=== PATIENT | female | born 1935 ===

== ENCOUNTER 2017-02-15 11:22 | Inpatient (IN) | payer MEDICARE, MEDICAID ==
[2017-02-15 11:22] VITALS: BMI 32.9
--- NOTE | 2017-02-15 12:01 | C.PDOC ---
History Of Present Illness Patient BIBA for evaluation of SOB since yesterday. Patient has h/o COPD, anemia, HTN, DM, hypothyroidism, CHF. She was admitted recently (02/06) at [facility] for similar symptoms. Patient admits to nonproductive cough, but denies chest pain, fever, abdominal pain, palpitations, nausea/vomiting. As per EMS, Pox was in the 70s when they arrived, patient given solumedrol IV and neb treatments , POx improved to 80s. Time Seen by Provider: 02/15/17 11:24 Chief Complaint (Nursing): Shortness Of Breath History Per: Patient, EMS, Family (daughter ) Onset/Duration Of Symptoms: Days (yesterday) Current Symptoms Are (Timing): Still Present Current Respiratory Medications: See Home Med List Severity: Moderate Past Medical History Reviewed: Historical Data, Nursing Documentation, Vital Signs Vital Signs: Last Vital Signs Temp Pulse 71 02/15/17 14:21 Resp 20 02/15/17 13:49 BP 151/48 H 02/15/17 13:49 Pulse Ox 96 02/15/17 13:49 - Medical History PMH: Anemia, Diabetes, HTN, Hypothyroidism, Pneumonia - [facility] Procedures INTRODUCTION OF SERUM/TOX/VACCINE INTO MUSCLE, PERC APPROACH (05/27/15) Family History: States: No Known Family Hx - Social History Hx Tobacco Use: No Hx Alcohol Use: No Hx Substance Use: No - Immunization History Hx Tetanus Toxoid Vaccination: No Hx Influenza Vaccination: No Hx Pneumococcal Vaccination: No Review Of Systems Except As Marked, All Systems Reviewed And Found Negative. Constitutional: Negative for: Fever, Chills Cardiovascular: Negative for: Chest Pain, Palpitations Respiratory: Positive for: Cough, Shortness of Breath Gastrointestinal: Negative for: Nausea, Vomiting, Abdominal Pain, Diarrhea Skin: Negative for: Rash Physical Exam - Physical Exam Appears: Well, Non-toxic, In Acute Distress (in moderate respiratory distress) Skin: Warm, Dry Oral Mucosa: Moist Cardiovascular: Rhythm Regular (tachycardic ) Respiratory: Accessory Muscle Use (mild), No Rales, No Rhonchi, Wheezing ( diffuse expiratory wheezing B/L) Gastrointestinal/Abdominal: Normal Exam, Bowel Sounds, Soft, No Tenderness Extremity: Pedal Edema (+1 pitting edema B/L LEs) Pulses: Left Dorsalis Pedis: Normal, Right Dorsalis Pedis: Normal Neurological/Psych: Oriented x3 ED Course And Treatment - Laboratory Results Result Diagrams: 02/15/17 12:13 02/15/17 12:13 ECG: Interpreted By Me, Viewed By Me (NSR) ECG Rhythm: Sinus Rhythm (NSR 76 bpm, normal axis, no acute ST/T wave changes) ECG Interpretation: Normal O2 Sat by Pulse Oximetry: 92 (RA) Pulse Ox Interpretation: Abnormal - CT Scan/US CXR Other Rad Studies (CT/US): Read By Radiologist, Radiology Report Reviewed CT/US Interpretation: Accession No. : [id number]. Patient Name / ID : MANDO RESTREPO / [id number]. Exam Date : 02/15/2017 11:34:29 ( Approved ). Study Comment : Sex / Age : F / 81Y. Creator : Carleen Yan MD. Dictator : Carleen Yan MD. Cook Vacuum Kettle : Network Planner : Carleen Yan MD. Approver2 : Report Date : 02/15/2017 12:59:58. My Comment : . HISTORY: SOB. COMPARISON: Chest x-ray performed 05/25/15. TECHNIQUE: Chest, one view. FINDINGS: Examination limited by habitus and hypoinflation. LUNGS: Interstitial prominence may reflect infection or edema. Biapical pleural thickening. Bilateral lower lobe atelectasis/infiltrates and/or small pleural effusions. No definite pneumothorax. Please note that chest x-ray has limited sensitivity for the detection of pulmonary masses. CARDIOVASCULAR: Cardiomegaly. Dense atherosclerotic calcifications of the aortic knob. OSSEOUS STRUCTURES: Degenerative changes. Evidence of bilateral calcific tendinitis. VISUALIZED UPPER ABDOMEN: Unremarkable. OTHER FINDINGS: None. IMPRESSION: Interstitial prominence may reflect infection or edema. Biapical pleural thickening. Bilateral lower lobe atelectasis/infiltrates and/or small pleural effusions. Progress Note: Patient placed on Bipap emergently. Blood work, EKG, CXR ordered and reviewed. Neb treatments given. IV Lasix given for fluid overload/ CHF. Will hold off on tranfusion of PRBCs as that will likely worsen her CHF. - Physician Consult Information Physician Contacted: Reji Reyes Outcome Of Conversation: Discussed patient with hospitalist, agrees with admission for chf exacerbation, dyspnea, elevated BNP. Consults for patient's licensed retail supervisor (Dr. Hernandez) and glue jointer feeder (Dr. Day). Disposition - Disposition
[2017-02-15] MEDS ORDERED: Albuterol-Ipratrop 3 mg / 0.5 (3 ml) UD INH STA (12:05)
[2017-02-15 12:11] LABS: ABG ALLEN TEST PO; ARTERIAL BLOOD GAS MODE BiPAP; DRAW SITE RRA
[2017-02-15 12:18] LABS: BASO % 0.3 % (0.0-2.0); EOS % 0.1 % (0.0-4.0); HEMATOCRIT 23.8 % (34.0-47.0); LYMPH # 1.7 K/uL (1.0-4.3); LYMPH % 11.4 % (20.0-40.0); MEAN CORPUSCULAR HEMOGLOBIN 31.2 pg (27.0-31.0); MEAN CORPUSCULAR HGB CONC 32.8 g/dL (33.0-37.0); MEAN PLATELET VOLUME 9.4 fL (7.2-11.7); MONO # 2.1 K/uL (0.0-0.8); MONO % 13.7 % (0.0-10.0); NRBC % 0.1 % (0.0-2.0); WHITE BLOOD COUNT 15.1 K/uL (4.8-10.8)
[2017-02-15 12:27] LABS: CHLORIDE 99 mmol/L (98-107)
[2017-02-15 12:28] LABS: POTASSIUM 5.6 mmol/L (3.6-5.2); SODIUM 138 mmol/L (132-148)
[2017-02-15 12:30] LABS: ALB/GLOB RATIO 0.8 (1.0-2.1); ALKALINE PHOSPHATASE 49 U/L (38-126); AST/SGOT 15 U/L (14-36); BLOOD UREA NITROGEN 53 mg/dL (7-17); CARBON DIOXIDE 23 mmol/L (22-30); GFR AFRICAN-AMERICAN 31; TOTAL PROTEIN 9.1 g/dL (6.3-8.3)
[2017-02-15 12:31] LABS: ALT/SGPT 28 U/L (9-52); CALCIUM 8.6 mg/dl (8.6-10.4); GLUCOSE,RANDOM 184 mg/dL (65-105); INR 1.2
[2017-02-15 12:38] LABS: MEAN CELL VOLUME 95.2 fL (81.0-99.0)
--- NOTE | 2017-02-15 13:01 | RAD ---
HISTORY: SOB COMPARISON: Chest x-ray performed 05/25/15 TECHNIQUE: Chest, one view. FINDINGS: Examination limited by habitus and hypoinflation. LUNGS: Interstitial prominence may reflect infection or edema. Biapical pleural thickening. Bilateral lower lobe atelectasis/infiltrates and/or small pleural effusions. No definite pneumothorax. Please note that chest x-ray has limited sensitivity for the detection of pulmonary masses. CARDIOVASCULAR: Cardiomegaly. Dense atherosclerotic calcifications of the aortic knob. OSSEOUS STRUCTURES: Degenerative changes. Evidence of bilateral calcific tendinitis. VISUALIZED UPPER ABDOMEN: Unremarkable. OTHER FINDINGS: None. IMPRESSION: Interstitial prominence may reflect infection or edema. Biapical pleural thickening. Bilateral lower lobe atelectasis/infiltrates and/or small pleural effusions.
--- NOTE | 2017-02-15 15:59 | CP.PCM.HP ---
<Clay Hernandes - Last Filed: 02/15/17 17:34> History of Present Illness - History of Present Illness History of Present Illness: 81F PMHx anemia, CKD, DM, hypothyroidism, PAD and "minor heart attack" in 2016 presented with worsening SOB since yesterday. Daughter and grandchildren at bedside help providing history as pt currently on BIPAP. Pt was recently admitted to [facility] for similar complaints and was discharged a week ago. Pt admits to nonproductive cough at first and wheezing since yesterday as well. Denied fever, chills, chest pain, abdominal pain, n/v, palpitations, constipation, diarrhea. Pt also had workup done in the past year including unremarkable ECHO, EGD, FOBT and cath. Pt had kidney ultrasound done and had stone in one of the kidneys and atrophy in the other, per daughter. Pt also scheduled to have bone marrow biopsy tomorrow with her private heme/onc Dr. Avel Day. Pt also has been receiving weekly iron infusion therapy per daughter since 08/2016 after the "minor heart attack". Pt also scheduled to have sleep study with Dr. Hernandez next Monday. Pt had transfusion at [facility] recently for hgb of 7.3 as well. 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 Fuentes Clements Present on Admission - Present on Admission Any Indicators Present on Admission: No Review of Systems - Constitutional Constitutional: As Per HPI - EENT Eyes: absent: Blind Spots Ears: absent: Decreased Hearing Nose/Mouth/Throat: absent: Nasal Discharge - Cardiovascular Cardiovascular: Dyspnea, Leg Edema, Orthopnea. absent: Chest Pain - Respiratory Respiratory: Cough, Dyspnea, Wheezing - Gastrointestinal Gastrointestinal: absent: Abdominal Pain, Diarrhea, Nausea, Vomiting - Genitourinary Genitourinary: absent: Dysuria, Pyuria - Musculoskeletal Musculoskeletal: absent: Back Pain - Integumentary Integumentary: absent: Dry Skin - Neurological Neurological: absent: Syncope, Tingling Past Patient History - Infectious Disease Hx of Infectious Diseases: None - Tetanus Immunizations Tetanus Immunization: Unknown - Past Medical History & Family History Past Medical History?: Yes - Past Social History Smoking Status: Never Smoked - CARDIAC Hx Hypertension: Yes - PULMONARY Hx Pneumonia: Yes - ENDOCRINE/METABOLIC Hx Hypothyroidism: Yes - HEMATOLOGICAL/ONCOLOGICAL Hx Anemia: Yes - MUSCULOSKELETAL/RHEUMATOLOGICAL Hx Falls: No - PSYCHIATRIC Hx Substance Use: No - SURGICAL HISTORY Hx Surgeries: Yes Other/Comment: vascular stents - ANESTHESIA Hx Anesthesia: Yes Hx Anesthesia Reactions: No Meds Allergies/Adverse Reactions: Allergies Allergy/AdvReac Type Severity Reaction Status Date / Time No Known Allergies Allergy Verified 02/15/17 11:36 Physical Exam - Constitutional Appears: Non-toxic, No Acute Distress - Head Exam Head Exam: NORMAL INSPECTION, NORMOCEPHALIC - Eye Exam Eye Exam: Normal appearance Pupil Exam: NORMAL ACCOMODATION - ENT Exam ENT Exam: Mucous Membranes Moist - Respiratory Exam Respiratory Exam: Clear to Auscultation Bilateral, Rales (bilateral lower lungs) , NORMAL BREATHING PATTERN. absent: Rhonchi, Wheezes Additional comments: on BIPAP - Cardiovascular Exam Cardiovascular Exam: REGULAR RHYTHM, +S1, +S2, Systolic Murmur (right sternal border). absent: Gallop, JVD, Rubs - GI/Abdominal Exam GI & Abdominal Exam: Normal Bowel Sounds, Soft. absent: Tenderness - Extremities Exam Extremities exam: Positive for: pedal edema. Negative for: calf tenderness, tenderness - Neurological Exam Neurological exam: Alert, Oriented x3 - Psychiatric Exam Psychiatric exam: Normal Affect, Normal Mood - Skin Skin Exam: Dry, Intact Results - Vital Signs Recent Vital Signs: Last Vital Signs Temp Pulse 75 02/15/17 15:12 Resp 22 02/15/17 15:12 BP 154/53 H 02/15/17 15:12 Pulse Ox 96 02/15/17 15:12 - Labs Result Diagrams: 02/15/17 12:13 02/15/17 12:13 Labs: Laboratory Results - last 24 hr 02/15/17 02/15/17 02/15/17 11:43 12:07 12:13 WBC 15.1 H RBC 2.50 L Hgb 7.8 L Hct 23.8 L MCV 95.2 D MCH 31.2 H MCHC 32.8 L RDW 18.0 H Plt Count 88 L D MPV 9.4 Neut % (Auto) 74.5 Lymph % (Auto) 11.4 L [place] % (Auto) 13.7 H Eos % (Auto) 0.1 Baso % (Auto) 0.3 Neut # 11.3 H Lymph # 1.7 [place] # 2.1 H Eos # 0.0 Baso # 0.0 Differential Comment PT INR APTT Puncture Site Rra pCO2 42 pO2 90 HCO3 26.2 ABG pH 7.41 ABG Total CO2 27.9 ABG O2 Saturation 99.3 H ABG Base Excess 1.7 Brayan Test Po ABG Potassium 5.7 H A-a O2 Difference 285.0 Respiratory Index 3.2 Sodium 137.0 Chloride 108.0 H Glucose 213 H Lactate 0.7 Vent Mode Bipap FiO2 60.0 Inspiratory BiPAP 10 Expiratory BiPAP 5 Potassium Carbon Dioxide Anion Gap BUN Creatinine Est GFR ( Amer) Est GFR (Non-Af Amer) POC Glucose (mg/dL) 246 H Random Glucose Calcium Total Bilirubin AST ALT Alkaline Phosphatase Total Creatine Kinase CK-MB (Mass) Troponin I NT-Pro-B Natriuret Pep Total Protein Albumin Globulin Albumin/Globulin Ratio TSH 3rd Generation Arterial Blood Potassium 5.7 H Stool Occult Blood 02/15/17 02/15/17 02/15/17 12:13 12:13 14:17 WBC RBC Hgb Hct MCV MCH MCHC RDW Plt Count MPV Neut % (Auto) Lymph % (Auto) [place] % (Auto) Eos % (Auto) Baso % (Auto) Neut # Lymph # [place] # Eos # Baso # Differential Comment PT 14.1 H INR 1.2 APTT 32 Puncture Site pCO2 pO2 HCO3 ABG pH ABG Total CO2 ABG O2 Saturation ABG Base Excess Brayan Test ABG Potassium A-a O2 Difference Respiratory Index Sodium 138 Chloride 99 Glucose Lactate Vent Mode FiO2 Inspiratory BiPAP Expiratory BiPAP Potassium 5.6 H Carbon Dioxide 23 Anion Gap 22 H BUN 53 H Creatinine 1.9 H Est GFR ( Amer) 31 Est GFR (Non-Af Amer) 25 POC Glucose (mg/dL) Random Glucose 184 H Calcium 8.6 Total Bilirubin 1.0 AST 15 ALT 28 Alkaline Phosphatase 49 Total Creatine Kinase 23 L CK-MB (Mass) 0.53 Troponin I < 0.0120 NT-Pro-B Natriuret Pep 3500 H Total Protein 9.1 H Albumin 4.1 Globulin 5.0 H Albumin/Globulin Ratio 0.8 L TSH 3rd Generation 5.60 H Arterial Blood Potassium Stool Occult Blood Negative Assessment & Plan - Assessment and Plan (Free Text) Assessment: SOB Secondary to COPD vs CHF vs CKD vs anemia, recently admitted to [facility]. Initial pulse ox 70s, elevated to 96 after BIPAP. Duoneb and Lasix 40mg IV given in ED. EKG showed NSR @ 76 bpm without acute changes. CXR showed no PE but with bilateral infiltrates per report. WBC 15.[address] ABG WNL. Dr. Day and David consulted, help appreciated. Duoneb and BIPAP PRN. Lasix 40mg IV q12H. F/U blood culture. F/U troponins. F/U CXR and EKG AM. Pending records from [facility]. Request sent. Pt has hx of pulmonary nodule from CT 2016, will consider CT later if symptoms not resolving. Hyperkalemia 5.6 in ED. S/P Duoneb treatment and kayaxalate. No EKG changes. F/U CMP next AM. CKD Cr 1.9, baseline 1.8. Per pt daughter, pt has kidney stone and atrophy observed on ultrasound done at [facility]. F/U record from [facility]. Consider Nephrology consult. Anemia Likely secondary to chronic kidney disease. Ferritin 93 last year. Current FOBT negative, s/p unremarkable EGD a month ago per daughter. Pt sees private heme/onc Dr. Avel Day outpatient, scheduled for biopsy 02/16. Heme/onc Dr. Blake consulted, help appreciated. F/U reticulocyte, ferritin, TIBC, Vitamin B12 and folate. Thrombocytopenia Heme/onc Dr. Blake consulted, help appreciated. F/U HIV and hepatitis panel. DM RISS, accucheck. Continue home med Lantus 15U HS. Withhold oral meds. F/U A1c. Hypothyroidism TSH 5.6 Continue home med Synthroid 100mcg PO ACB. PAD Cardio Dr. Day consulted, help appreciated. Continue home med Pletal and Effient. Prophylactic measure Protonix, HepSQ. F/U venous doppler before SCD. <Reji Reyes - Last Filed: 02/16/17 07:35> Results - Vital Signs Recent Vital Signs: Last Vital Signs Temp 97.7 F 02/16/17 04:42 Pulse 84 02/16/17 05:08 Resp 20 02/16/17 04:42 BP 130/80 02/16/17 05:27 Pulse Ox 96 02/16/17 04:42 - Labs Result Diagrams: 02/15/17 12:13 02/15/17 12:13 Labs: Laboratory Results - last 24 hr 02/15/17 02/15/17 02/15/17 11:43 12:07 12:13 WBC 15.1 H RBC 2.50 L Hgb 7.8 L Hct 23.8 L MCV 95.2 D MCH 31.2 H MCHC 32.8 L RDW 18.0 H Plt Count 88 L D MPV 9.4 Neut % (Auto) 74.5 Lymph % (Auto) 11.4 L [place] % (Auto) 13.7 H Eos % (Auto) 0.1 Baso % (Auto) 0.3 Neut # 11.3 H Lymph # 1.7 [place] # 2.1 H Eos # 0.0 Baso # 0.0 Differential Comment Retic Count PT INR APTT Puncture Site Rra pCO2 42 pO2 90 HCO3 26.2 ABG pH 7.41 ABG Total CO2 27.9 ABG O2 Saturation 99.3 H ABG Base Excess 1.7 Brayan Test Po ABG Potassium 5.7 H A-a O2 Difference 285.0 Respiratory Index 3.2 Sodium 137.0 Chloride 108.0 H Glucose 213 H Lactate 0.7 Vent Mode Bipap FiO2 60.0 Inspiratory BiPAP 10 Expiratory BiPAP 5 Potassium Carbon Dioxide Anion Gap BUN Creatinine Est GFR ( Amer) Est GFR (Non-Af Amer) POC Glucose (mg/dL) 246 H Random Glucose Calcium Iron TIBC % Saturation Ferritin Total Bilirubin AST ALT Alkaline Phosphatase Total Creatine Kinase CK-MB (Mass) Troponin I NT-Pro-B Natriuret Pep Total Protein Albumin Globulin Albumin/Globulin Ratio Vitamin B12 Folate TSH 3rd Generation Arterial Blood Potassium 5.7 H Stool Occult Blood Hepatitis A IgM Ab Hep Bs Antigen Hep B Core IgM Ab Hepatitis C Antibody 02/15/17 02/15/17 02/15/17 12:13 12:13 14:17 WBC RBC Hgb Hct MCV MCH MCHC RDW Plt Count MPV Neut % (Auto) Lymph % (Auto) [place] % (Auto) Eos % (Auto) Baso % (Auto) Neut # Lymph # [place] # Eos # Baso # Differential Comment Retic Count PT 14.1 H INR 1.2 APTT 32 Puncture Site pCO2 pO2 HCO3 ABG pH ABG Total CO2 ABG O2 Saturation ABG Base Excess Brayan Test ABG Potassium A-a O2 Difference Respiratory Index Sodium 138 Chloride 99 Glucose Lactate Vent Mode FiO2 Inspiratory BiPAP Expiratory BiPAP Potassium 5.6 H Carbon Dioxide 23 Anion Gap 22 H BUN 53 H Creatinine 1.9 H Est GFR ( Amer) 31 Est GFR (Non-Af Amer) 25 POC Glucose (mg/dL) Random Glucose 184 H Calcium 8.6 Iron TIBC % Saturation Ferritin Total Bilirubin 1.0 AST 15 ALT 28 Alkaline Phosphatase 49 Total Creatine Kinase 23 L CK-MB (Mass) 0.53 Troponin I < 0.0120 NT-Pro-B Natriuret Pep 3500 H Total Protein 9.1 H Albumin 4.1 Globulin 5.0 H Albumin/Globulin Ratio 0.8 L Vitamin B12 Folate TSH 3rd Generation 5.60 H Arterial Blood Potassium Stool Occult Blood Negative Hepatitis A IgM Ab Hep Bs Antigen Hep B Core IgM Ab Hepatitis C Antibody 02/15/17 02/15/17 02/15/17 17:12 17:12 17:12 WBC RBC Hgb Hct MCV MCH MCHC RDW Plt Count MPV Neut % (Auto) Lymph % (Auto) [place] % (Auto) Eos % (Auto) Baso % (Auto) Neut # Lymph # [place] # Eos # Baso # Differential Comment Retic Count 4.6 H D PT INR APTT Puncture Site pCO2 pO2 HCO3 ABG pH ABG Total CO2 ABG O2 Saturation ABG Base Excess Brayan Test ABG Potassium A-a O2 Difference Respiratory Index Sodium Chloride Glucose Lactate Vent Mode FiO2 Inspiratory BiPAP Expiratory BiPAP Potassium Carbon Dioxide Anion Gap BUN Creatinine Est GFR ( Amer) Est GFR (Non-Af Amer) POC Glucose (mg/dL) Random Glucose Calcium Iron 52 TIBC 263 % Saturation 20 Ferritin 330.0 Total Bilirubin AST ALT Alkaline Phosphatase Total Creatine Kinase CK-MB (Mass) Troponin I NT-Pro-B Natriuret Pep Total Protein Albumin Globulin Albumin/Globulin Ratio Vitamin B12 705 Folate 9.9 TSH 3rd Generation Arterial Blood Potassium Stool Occult Blood Hepatitis A IgM Ab Hep Bs Antigen Hep B Core IgM Ab Hepatitis C Antibody 02/15/17 02/15/17 02/15/17 17:32 19:37 20:59 WBC RBC Hgb Hct MCV MCH MCHC RDW Plt Count MPV Neut % (Auto) Lymph % (Auto) [place] % (Auto) Eos % (Auto) Baso % (Auto) Neut # Lymph # [place] # Eos # Baso # Differential Comment Retic Count PT INR APTT Puncture Site pCO2 pO2 HCO3 ABG pH ABG Total CO2 ABG O2 Saturation ABG Base Excess Brayan Test ABG Potassium A-a O2 Difference Respiratory Index Sodium Chloride Glucose Lactate Vent Mode FiO2 Inspiratory BiPAP Expiratory BiPAP Potassium Carbon Dioxide Anion Gap BUN Creatinine Est GFR ( Amer) Est GFR (Non-Af Amer) POC Glucose (mg/dL) 289 H 393 H Random Glucose Calcium Iron TIBC % Saturation Ferritin Total Bilirubin AST ALT Alkaline Phosphatase Total Creatine Kinase CK-MB (Mass) Troponin I NT-Pro-B Natriuret Pep Total Protein Albumin Globulin Albumin/Globulin Ratio Vitamin B12 Folate TSH 3rd Generation Arterial Blood Potassium Stool Occult Blood Hepatitis A IgM Ab Reactive Hep Bs Antigen Negative Hep B Core IgM Ab Negative Hepatitis C Antibody Negative 02/16/17 02/16/17 02/16/17 00:31 01:57 06:21 WBC RBC Hgb Hct MCV MCH MCHC RDW Plt Count MPV Neut % (Auto) Lymph % (Auto) [place] % (Auto) Eos % (Auto) Baso % (Auto) Neut # Lymph # [place] # Eos # Baso # Differential Comment Retic Count PT INR APTT Puncture Site pCO2 pO2 HCO3 ABG pH ABG Total CO2 ABG O2 Saturation ABG Base Excess Brayan Test ABG Potassium A-a O2 Difference Respiratory Index Sodium Chloride Glucose Lactate Vent Mode FiO2 Inspiratory BiPAP Expiratory BiPAP Potassium Carbon Dioxide Anion Gap BUN Creatinine Est GFR ( Amer) Est GFR (Non-Af Amer) POC Glucose (mg/dL) 313 H 290 H Random Glucose Calcium Iron TIBC % Saturation Ferritin Total Bilirubin AST ALT Alkaline Phosphatase Total Creatine Kinase CK-MB (Mass) Troponin I < 0.0120 NT-Pro-B Natriuret Pep Total Protein Albumin Globulin Albumin/Globulin Ratio Vitamin B12 Folate TSH 3rd Generation Arterial Blood Potassium Stool Occult Blood Hepatitis A IgM Ab Hep Bs Antigen Hep B Core IgM Ab Hepatitis C Antibody Attending/Attestation - Attestation I have personally seen and examined this patient.: Yes I have fully participated in the care of the patient.: Yes I have reviewed all pertinent clinical information: Yes Notes (Text): Medical Attending: Patient was seen and examined by me. Agree with the above note by the durable medical equipment technician. Patient's family members were also present as bedside as well. Including her daughter, her granddaughter, as well as I believe may be a sister as well. The patient was recently at [facility], they explained for a very similar situation. I'm being told she had an extensive workup at [facility]. We' ll try to get some medical records from there I explained to him the patient as well as the family members that it appears that the patient has an exacerbation of CHF. When reviewing the chest x-ray she has bilateral having congestion. The patient did get some IV Lasix down in the emergency room, were to give her additional IV Lasix. [place] follow-up with him additional chest x-ray tomorrow in the morning to see if this helps any. When we saw the patient she was ready on 6T and was wearing a BiPAP however she reported that she is feeling much better since coming to the hospital she has been urinating a lot. Hopefully tomorrow we can get her off the BiPAP It should be noted on physical exam she does have some cardiac murmurs including areas over the pulmonic and the mitral areas that have what appeared to be a systolic murmur. Also of note she has a low hemoglobin of 7.8, according to the family members at [facility] she had to have a blood transfusion. Because of the elevated BNP, as well as the chest x-ray findings of heavy congestion we will defer from transfusing at this time and she does the next subsequent days. If the chest x-ray gets better and she's been diuresing we'll consider giving her blood transfusion. From what I understand she is supposed to have a bone marrow biopsy done outpatient. thank you Reji Reyes
[2017-02-15] MEDS ORDERED: Sod Polystyrene Sulf 15 gm/60 ml Susp PO ONE (17:26)
[2017-02-15 17:34] LABS: IRON 52 ug/dL (37-170)
[2017-02-15] MEDS ORDERED: Albuterol-Ipratrop 3 mg / 0.5 (3 ml) UD INH PRN (17:40)
[2017-02-15 18:41] LABS: FOLATE 9.9 ng/mL
--- NOTE | 2017-02-15 18:45 | CP.PCM.CON ---
History of Present Illness - History of Present Illness History of Present Illness: 81-year-old female past medical history of CHF, chronic hypoxemia on home oxygen , obstructive sleep apnea presents with complaining of progressively worsening dyspnea patient is found to have fluid overload Denied fever, chills, chest pain , abdominal pain, n/v, palpitations, constipation, diarrhea. Patient is currently on BiPAP and reports that her symptoms have improved. Review of Systems - Review of Systems All systems: reviewed and no additional remarkable complaints except (As mentioned in HPI) Past Patient History - Infectious Disease Hx of Infectious Diseases: None - Tetanus Immunizations Tetanus Immunization: Unknown - Past Medical History & Family History Past Medical History?: Yes - Past Social History Smoking Status: Never Smoked - CARDIAC Hx Hypertension: Yes - PULMONARY Hx Pneumonia: Yes - NEUROLOGICAL Hx Neurological Disorder: No - HEENT Hx HEENT Problems: Yes Hx Cataracts: Yes Other/Comment: corneal replacement both eyes - RENAL Hx Chronic Kidney Disease: Yes Hx Kidney Stones: Yes - ENDOCRINE/METABOLIC Hx Hypothyroidism: Yes - HEMATOLOGICAL/ONCOLOGICAL Hx Anemia: Yes - INTEGUMENTARY Hx Dermatological Problems: No - MUSCULOSKELETAL/RHEUMATOLOGICAL Hx Falls: No - GASTROINTESTINAL Hx Gastrointestinal Disorders: Yes Hx Constipation: Yes Hx Gastritis: Yes - GENITOURINARY/GYNECOLOGICAL Hx Genitourinary Disorders: No - PSYCHIATRIC Hx Substance Use: No - SURGICAL HISTORY Hx Surgeries: Yes Other/Comment: vascular stents - ANESTHESIA Hx Anesthesia: Yes Hx Anesthesia Reactions: No Meds Allergies/Adverse Reactions: Allergies Allergy/AdvReac Type Severity Reaction Status Date / Time No Known Allergies Allergy Verified 02/15/17 11:36 - Medications Medications: Current Medications Albuterol/Ipratropium (Duoneb 3 Mg/0.5 Mg (3 Ml) Ud) 3 ml INH RQ2 PRN PRN Reason: SOB Amlodipine Besylate (Norvasc) 10 mg PO DAILY [facility] Cilostazol (Pletal) 50 mg PO DAILY [facility] Enalapril Maleate (Vasotec) 20 mg PO DAILY [facility] Fenofibrate (Tricor) 48 mg PO DAILY [facility] Furosemide (Lasix) 40 mg IVP Q12H [facility] Heparin Sodium (Porcine) (Heparin) 5,000 units SC Q12 [facility] Home Med (Fosamax) 35 mg PO QWK [facility] Ceftriaxone Sodium 1 gm/ (Dextrose) 100 mls @ 50 mls/30 min IVPB Q24H [facility] Azithromycin 500 mg/ Sodium (Chloride) 250 mls @ 167 mls/hr IVPB Q24H [facility] Insulin Glargine (Lantus) 15 unit SC HS [facility] Insulin Human Regular (Novolin R) 0 unit SC ACHS [facility] PRN Reason: Protocol Levothyroxine Sodium (Synthroid) 100 mcg PO ACB [facility] Metoprolol Succinate (Toprol Xl) 25 mg PO DAILY [facility] Pantoprazole Sodium (Protonix Ec Tab) 40 mg PO DAILY [facility] Prasugrel (Effient) 10 mg PO DAILY [facility] Rosuvastatin Calcium (Crestor) 10 mg PO HS [facility] Physical Exam - Head Exam Head Exam: NORMAL INSPECTION - Eye Exam Eye Exam: Normal appearance - ENT Exam ENT Exam: Mucous Membranes Moist - Respiratory Exam Respiratory Exam: Rales, Rhonchi - Cardiovascular Exam Cardiovascular Exam: REGULAR RHYTHM, +S1, +S2 - GI/Abdominal Exam GI & Abdominal Exam: Normal Bowel Sounds, Soft - Extremities Exam Extremities exam: Positive for: pedal edema Results - Vital Signs Recent Vital Signs: Last Vital Signs Temp 98.1 F 02/15/17 16:20 Pulse 87 02/15/17 16:20 Resp 27 H 02/15/17 16:20 BP 163/70 H 02/15/17 16:20 Pulse Ox 95 02/15/17 16:20 - Labs Result Diagrams: 02/15/17 12:13 02/15/17 12:13 Labs: Laboratory Results - last 24 hr 02/15/17 02/15/17 02/15/17 11:43 12:07 12:13 WBC 15.1 H RBC 2.50 L Hgb 7.8 L Hct 23.8 L MCV 95.2 D MCH 31.2 H MCHC 32.8 L RDW 18.0 H Plt Count 88 L D MPV 9.4 Neut % (Auto) 74.5 Lymph % (Auto) 11.4 L Perkins % (Auto) 13.7 H Eos % (Auto) 0.1 Baso % (Auto) 0.3 Neut # 11.3 H Lymph # 1.7 Perkins # 2.1 H Eos # 0.0 Baso # 0.0 Differential Comment Retic Count PT INR APTT Puncture Site Rra pCO2 42 pO2 90 HCO3 26.2 ABG pH 7.41 ABG Total CO2 27.9 ABG O2 Saturation 99.3 H ABG Base Excess 1.7 Brayan Test Po ABG Potassium 5.7 H A-a O2 Difference 285.0 Respiratory Index 3.2 Sodium 137.0 Chloride 108.0 H Glucose 213 H Lactate 0.7 Vent Mode Bipap FiO2 60.0 Inspiratory BiPAP 10 Expiratory BiPAP 5 Potassium Carbon Dioxide Anion Gap BUN Creatinine Est GFR ( Amer) Est GFR (Non-Af Amer) POC Glucose (mg/dL) 246 H Random Glucose Calcium Iron TIBC % Saturation Ferritin Total Bilirubin AST ALT Alkaline Phosphatase Total Creatine Kinase CK-MB (Mass) Troponin I NT-Pro-B Natriuret Pep Total Protein Albumin Globulin Albumin/Globulin Ratio Vitamin B12 TSH 3rd Generation Arterial Blood Potassium 5.7 H Stool Occult Blood 02/15/17 02/15/17 02/15/17 12:13 12:13 14:17 WBC RBC Hgb Hct MCV MCH MCHC RDW Plt Count MPV Neut % (Auto) Lymph % (Auto) Perkins % (Auto) Eos % (Auto) Baso % (Auto) Neut # Lymph # Perkins # Eos # Baso # Differential Comment Retic Count PT 14.1 H INR 1.2 APTT 32 Puncture Site pCO2 pO2 HCO3 ABG pH ABG Total CO2 ABG O2 Saturation ABG Base Excess Brayan Test ABG Potassium A-a O2 Difference Respiratory Index Sodium 138 Chloride 99 Glucose Lactate Vent Mode FiO2 Inspiratory BiPAP Expiratory BiPAP Potassium 5.6 H Carbon Dioxide 23 Anion Gap 22 H BUN 53 H Creatinine 1.9 H Est GFR ( Amer) 31 Est GFR (Non-Af Amer) 25 POC Glucose (mg/dL) Random Glucose 184 H Calcium 8.6 Iron TIBC % Saturation Ferritin Total Bilirubin 1.0 AST 15 ALT 28 Alkaline Phosphatase 49 Total Creatine Kinase 23 L CK-MB (Mass) 0.53 Troponin I < 0.0120 NT-Pro-B Natriuret Pep 3500 H Total Protein 9.1 H Albumin 4.1 Globulin 5.0 H Albumin/Globulin Ratio 0.8 L Vitamin B12 TSH 3rd Generation 5.60 H Arterial Blood Potassium Stool Occult Blood Negative 02/15/17 02/15/17 02/15/17 17:12 17:12 17:12 WBC RBC Hgb Hct MCV MCH MCHC RDW Plt Count MPV Neut % (Auto) Lymph % (Auto) Perkins % (Auto) Eos % (Auto) Baso % (Auto) Neut # Lymph # Perkins # Eos # Baso # Differential Comment Retic Count 4.6 H D PT INR APTT Puncture Site pCO2 pO2 HCO3 ABG pH ABG Total CO2 ABG O2 Saturation ABG Base Excess Brayan Test ABG Potassium A-a O2 Difference Respiratory Index Sodium Chloride Glucose Lactate Vent Mode FiO2 Inspiratory BiPAP Expiratory BiPAP Potassium Carbon Dioxide Anion Gap BUN Creatinine Est GFR ( Amer) Est GFR (Non-Af Amer) POC Glucose (mg/dL) Random Glucose Calcium Iron 52 TIBC 263 % Saturation 20 Ferritin 330.0 Total Bilirubin AST ALT Alkaline Phosphatase Total Creatine Kinase CK-MB (Mass) Troponin I NT-Pro-B Natriuret Pep Total Protein Albumin Globulin Albumin/Globulin Ratio Vitamin B12 705 TSH 3rd Generation Arterial Blood Potassium Stool Occult Blood 02/15/17 17:32 WBC RBC Hgb Hct MCV MCH MCHC RDW Plt Count MPV Neut % (Auto) Lymph % (Auto) Perkins % (Auto) Eos % (Auto) Baso % (Auto) Neut # Lymph # Perkins # Eos # Baso # Differential Comment Retic Count PT INR APTT Puncture Site pCO2 pO2 HCO3 ABG pH ABG Total CO2 ABG O2 Saturation ABG Base Excess Brayan Test ABG Potassium A-a O2 Difference Respiratory Index Sodium Chloride Glucose Lactate Vent Mode FiO2 Inspiratory BiPAP Expiratory BiPAP Potassium Carbon Dioxide Anion Gap BUN Creatinine Est GFR ( Amer) Est GFR (Non-Af Amer) POC Glucose (mg/dL) 289 H Random Glucose Calcium Iron TIBC % Saturation Ferritin Total Bilirubin AST ALT Alkaline Phosphatase Total Creatine Kinase CK-MB (Mass) Troponin I NT-Pro-B Natriuret Pep Total Protein Albumin Globulin Albumin/Globulin Ratio Vitamin B12 TSH 3rd Generation Arterial Blood Potassium Stool Occult Blood Assessment & Plan - Assessment and Plan (Free Text) Assessment: Acute respiratory insufficiency CHF exacerbation Pulmonary hypertension ENRIQUE Continue BiPAP Lasix Monitor I's and O's Keep patient negative balance Bronchodilators DVT/GI prophylaxis Thank you for the consult will follow patient with you
[2017-02-15] MEDS: cefTRIAXone IV 1 gm in Dextros 1 GM in Dextrose 5% In Water 50 ML IVPB SCH (19:10)
[2017-02-15] MEDS: Azithromycin 500 MG in Sodium Chloride 0.9% 250 ML IVPB SCH (19:11)
[2017-02-15] MEDS: (Lantus) Insulin Glargine, Recombinant SC SCH (21:55)
[2017-02-15] MEDS: (Novolin R) Insulin Human Regular 100 units/ml vial SC SCH (21:57)
[2017-02-16] MEDS ORDERED: (Novolin R) Insulin Human Regular 100 units/ml vial SC ONE (02:26)
[2017-02-16] MEDS ORDERED: Levothyroxine 100 MCG TAB PO SCH (07:30)
[2017-02-16 07:38] LABS: BASO % 0.1 % (0.0-2.0); HEMATOCRIT 22.4 % (34.0-47.0); LYMPH % 7.7 % (20.0-40.0); MEAN CELL VOLUME 96.3 fL (81.0-99.0); MEAN CORPUSCULAR HEMOGLOBIN 31.7 pg (27.0-31.0); MEAN CORPUSCULAR HGB CONC 32.9 g/dL (33.0-37.0); MEAN PLATELET VOLUME 10.1 fL (7.2-11.7); MONO # 0.5 K/uL (0.0-0.8); MONO % 4.1 % (0.0-10.0); PLATELET COUNT 84 K/uL (130-400); RED CELL DISTRIBUTION WIDTH 17.8 % (11.5-14.5); WHITE BLOOD COUNT 13.2 K/uL (4.8-10.8)
--- NOTE | 2017-02-16 07:54 | CP.PCM.PN ---
<Arsh Hurley - Last Filed: 02/16/17 15:32> Subjective - Date & Time of Evaluation Date of Evaluation: 02/16/17 Time of Evaluation: 07:40 - Subjective Subjective: PGY1 Medicine Note for Dr. Reyes Patient seen and examined this morning at bedside. Patient is wearing her bi- pap mask, sitting upright in her bed. She states that she is doing much better today compared to yesterday. She states she slept well and her breathing feels much improved. Denies f/c, n/v/d, sob, cp, abdominal pain or headaches. Objective - Vital Signs/Intake and Output Vital Signs (last 24 hours): Temp Pulse Resp BP Pulse Ox 97.7 F 84 20 130/80 96 02/16/17 04:42 02/16/17 05:08 02/16/17 04:42 02/16/17 05:27 02/16/17 04:42 Intake and Output: 02/16/17 02/16/17 06:59 18:59 Intake Total 540 Output Total 800 Balance -260 - Medications Medications: Current Medications Albuterol/Ipratropium (Duoneb 3 Mg/0.5 Mg (3 Ml) Ud) 3 ml INH RQ2 PRN PRN Reason: SOB Amlodipine Besylate (Norvasc) 10 mg PO DAILY [facility] Cilostazol (Pletal) 50 mg PO DAILY [facility] Enalapril Maleate (Vasotec) 20 mg PO DAILY [facility] Fenofibrate (Tricor) 48 mg PO DAILY [facility] Furosemide (Lasix) 40 mg IVP Q12H [facility] Last Admin: 02/16/17 05:27 Dose: 40 mg Heparin Sodium (Porcine) (Heparin) 5,000 units SC Q12 [facility] Last Admin: 02/15/17 21:56 Dose: 5,000 units Home Med (Fosamax) 35 mg PO QWK [facility] Ceftriaxone Sodium 1 gm/ (Dextrose) 100 mls @ 50 mls/30 min IVPB Q24H [facility] Last Admin: 02/15/17 19:10 Dose: 50 mls/30 min Azithromycin 500 mg/ Sodium (Chloride) 250 mls @ 167 mls/hr IVPB Q24H [facility] Last Admin: 02/15/17 19:11 Dose: 167 mls/hr Insulin Glargine (Lantus) 15 unit SC HS [facility] Last Admin: 02/15/17 21:55 Dose: 15 units Insulin Human Regular (Novolin R) 0 unit SC ACHS [facility] PRN Reason: Protocol Last Admin: 02/15/17 21:57 Dose: 3 unit Levothyroxine Sodium (Synthroid) 100 mcg PO ACB [facility] Last Admin: 02/16/17 06:44 Dose: 100 mcg Metoprolol Succinate (Toprol Xl) 25 mg PO DAILY [facility] Pantoprazole Sodium (Protonix Ec Tab) 40 mg PO DAILY [facility] Prasugrel (Effient) 10 mg PO DAILY [facility] Rosuvastatin Calcium (Crestor) 10 mg PO HS [facility] Last Admin: 02/15/17 21:59 Dose: 10 mg - Labs Labs: 02/16/17 07:25 02/15/17 12:13 PT 14.1 SECONDS (9.7-12.2) H 02/15/17 12:13 INR 1.2 02/15/17 12:13 APTT 32 SECONDS (21-34) 02/15/17 12:13 Assessment and Plan - Assessment and Plan (Free Text) Plan: SOB Secondary to COPD vs CHF vs CKD vs anemia, recently admitted to [facility]. Initial pulse ox 70s, elevated to 96 after BIPAP. Duoneb and Lasix 40mg IV given in ED. EKG showed NSR @ 76 bpm without acute changes. CXR 02/15/17 - showed no PE but with bilateral infiltrates per report. WBC 13.[address] bands. ABG WNL. Dr. Day and David consulted, help appreciated. Duoneb and BIPAP PRN. Lasix 40mg IV q12H - decreased to 20mg IV Q12 due to worsening Creatinine F/U blood culture. troponins - negative x3 CXR (02/16/17) - Moderate to severe venous congestion with prominent confluent consolidative changes at both lung bases with a moderate left and small right pleural effusion. Cardiomegaly. Bilateral hilar prominence. Degenerative changes in the spine and shoulders. Calcification at the aortic knob. Aortic calcifications. EKG - no change Chest CT w/o (02/16/17) 1.) Vascular pattern suggests CHF as discussed above. However, the main pulmonary artery is also dilated to 3.6 cm, greater in caliber than the thoracic aorta and the right ventricle and atrium appears somewhat prominent compared to the left heart. Consider pulmonary arterial hypertension. Contrast dating this possibility is of normal apparent size to the inferior vena cava. Further clinical correlation is advised. 2.) Mild bilateral pleural effusions is are compression atelectasis at the bilateral lower lobes with underlying pneumonia not completely excluded. 3.) 3 mm right apical noncalcified nodule for which follow-up chest is advised in 12 months is imaged to demonstrate stability. Lung rads 2 Pending records from [facility]. Request sent. Pt has hx of pulmonary nodule from CT 2016, will consider CT later if symptoms not resolving. F/U repeat cxr in AM Continue bi-pap as needed. Hyperkalemia 5.6 in ED. S/P Duoneb treatment and kayaxalate. No EKG changes. F/U CMP next AM. CKD Cr 2.5 (yesterday 1.9), baseline 1.8. Per pt daughter, pt has kidney stone and atrophy observed on ultrasound done at [facility]. F/U record from [facility]. Consider Nephrology consult. Anemia Likely secondary to chronic kidney disease. Ferritin 93 last year. Current FOBT negative, s/p unremarkable EGD a month ago per daughter. Pt sees private heme/onc Dr. Avel Day outpatient, scheduled for biopsy 02/16. Heme/onc Dr. Blake consulted, help appreciated. reticulocyte 4.6 high Iron 52 TIBC 263 %sat 20 Ferritin 330 Vitamin B12 705 Folate 9.9 Thrombocytopenia Heme/onc Dr. Blake consulted, help appreciated. Hep A Ab postive Hep Bs antigen, core IgM Ab and Hep C Ab - negative F/U HIV DM RISS, accucheck. Continue home med Lantus 15 units HS. Withhold oral meds. A1c - 8.5 Hypothyroidism TSH 5.6 Continue home med Synthroid 100mcg PO ACB. PAD Cardio Dr. Day consulted, help appreciated. Continue home med Pletal and Effient. Prophylactic measure Protonix, HepSQ. venous doppler - normal, no abnormal findings. Case discussed with Dr. Amy Hurley PGY1 <Reji Reyes - Last Filed: 02/16/17 17:47> Objective - Vital Signs/Intake and Output Vital Signs (last 24 hours): Temp Pulse Resp BP Pulse Ox 98.4 F 85 20 164/80 H 98 02/16/17 15:30 02/16/17 15:30 02/16/17 15:30 02/16/17 15:30 02/16/17 15:30 Intake and Output: 02/16/17 02/16/17 06:59 18:59 Intake Total 540 Output Total 800 Balance -260 - Medications Medications: Current Medications Albuterol/Ipratropium (Duoneb 3 Mg/0.5 Mg (3 Ml) Ud) 3 ml INH RQ2 PRN PRN Reason: SOB Amlodipine Besylate (Norvasc) 10 mg PO DAILY [facility] Last Admin: 02/16/17 10:31 Dose: 10 mg Cilostazol (Pletal) 50 mg PO DAILY [facility] Last Admin: 02/16/17 10:31 Dose: 50 mg Emollient Ointment (Vaseline Oint) 5 gm TOP PRN PRN PRN Reason: Dry skin Enalapril Maleate (Vasotec) 20 mg PO DAILY [facility] Last Admin: 02/16/17 10:31 Dose: 20 mg Fenofibrate (Tricor) 48 mg PO DAILY [facility] Last Admin: 02/16/17 10:32 Dose: 48 mg Furosemide (Lasix) 20 mg IVP Q12 [facility] Last Admin: 02/16/17 10:47 Dose: 20 mg Heparin Sodium (Porcine) (Heparin) 5,000 units SC Q12 [facility] Last Admin: 02/16/17 10:40 Dose: 5,000 units Home Med (Fosamax) 35 mg PO QWK [facility] Ceftriaxone Sodium 1 gm/ (Dextrose) 100 mls @ 50 mls/30 min IVPB Q24H [facility] Last Admin: 02/15/17 19:10 Dose: 50 mls/30 min Azithromycin 500 mg/ Sodium (Chloride) 250 mls @ 167 mls/hr IVPB Q24H [facility] Last Admin: 02/15/17 19:11 Dose: 167 mls/hr Insulin Glargine (Lantus) 15 unit SC HS [facility] Last Admin: 02/15/17 21:55 Dose: 15 units Insulin Human Regular (Novolin R) 0 unit SC ACHS [facility] PRN Reason: Protocol Last Admin: 02/16/17 07:59 Dose: 4 unit Levothyroxine Sodium (Synthroid) 100 mcg PO ACB [facility] Last Admin: 02/16/17 06:44 Dose: 100 mcg Metoprolol Succinate (Toprol Xl) 25 mg PO DAILY [facility] Last Admin: 02/16/17 10:31 Dose: 25 mg Pantoprazole Sodium (Protonix Ec Tab) 40 mg PO DAILY [facility] Last Admin: 02/16/17 10:31 Dose: 40 mg Prasugrel (Effient) 10 mg PO DAILY [facility] Last Admin: 02/16/17 10:41 Dose: 10 mg Rosuvastatin Calcium (Crestor) 10 mg PO HS [facility] Last Admin: 02/15/17 21:59 Dose: 10 mg - Labs Labs: 02/16/17 07:25 02/16/17 07:25 PT 14.1 SECONDS (9.7-12.2) H 02/15/17 12:13 INR 1.2 02/15/17 12:13 APTT 32 SECONDS (21-34) 02/15/17 12:13 Attending/Attestation - Attestation I have personally seen and examined this patient.: Yes I have fully participated in the care of the patient.: Yes I have reviewed all pertinent clinical information, including history, physical exam and plan: Yes Notes (Text): Medical Attending: Patient was seen and examined by me. Agree with the above note by the resident The patient reported she was feeling somewhat better today however still requiring the Bipap. She was able to speak in full sentences as well. The patient had family member present at bedside again. The chest XRAY still has very impressive amounts of congestion, will check CT of the lung without contrast to assess for pleural effusion. Also we need to continue to follow the Hgb as she is anemic. Reji Reyes
[2017-02-16] MEDS: (Novolin R) Insulin Human Regular 100 units/ml vial SC SCH ×3 (07:59→23:09)
[2017-02-16 08:18] LABS: CHLORIDE 99 mmol/L (98-107); SODIUM 135 mmol/L (132-148)
[2017-02-16 08:19] LABS: POTASSIUM 5.1 mmol/L (3.6-5.2)
[2017-02-16 08:20] LABS: CHOLESTEROL 107 mg/dL (0-199)
[2017-02-16 08:21] LABS: ALB/GLOB RATIO 0.9 (1.0-2.1); ALKALINE PHOSPHATASE 47 U/L (38-126); AST/SGOT 15 U/L (14-36); BILIRUBIN,TOTAL 0.7 mg/dL (0.2-1.3); BLOOD UREA NITROGEN 66 mg/dL (7-17); CARBON DIOXIDE 22 mmol/L (22-30); GFR AFRICAN-AMERICAN 22; GLUCOSE,RANDOM 254 mg/dL (65-105); TOTAL PROTEIN 8.5 g/dL (6.3-8.3)
[2017-02-16 08:22] LABS: ALT/SGPT 21 U/L (9-52); CALCIUM 8.3 mg/dl (8.6-10.4)
[2017-02-16 09:24] LABS: NEUTROPHIL 87 % (50-75); TOTAL CELLS COUNTED 100
--- NOTE | 2017-02-16 09:40 | CP.PCM.CON ---
History of Present Illness - History of Present Illness History of Present Illness: Consult note for Dr. Blake Patient is an 81 year old female with past medical history of iron deficiency anemia, CKD, DM, hypothyroidism and PAD, who initially presented to the hospital with worsening shortness of breath. Patient is resting comfortably in bed with the BiPAP on. Patient's daughter, Bibiana, is at bedside and contributing to the patients history. Patient was recently hospitalized at [facility] [place] and found her hemoglobin was 7. She received two units of blood and her hemoglobin increased to approximately 8.3-8.7. Patient receives regular IV iron for her anemia. Patient's daughter reports that over approximately 20 days, the patients hemoglobin dropped from 10-11 to 7. The patient was schedule for a bone marrow biopsy today with her hem/onc doctor, Dr. Ernique. Currently, the patient has no complaints and reports her breathing is better with the BiPAP. She is feeling less fatigued. 12 point review of systems otherwise negative. PMHx: iron deficiency anemia, CKD, DM, hypothyroidism and PAD SurgHx: 3 stents in lower extremities (2 in right, 1 in left LE) in 2009 FamHx: "Mother had the same medical history as patient" SocHx: denies tobacco, alcohol and drug use; former employee at [employer]. Allergies: NKDA Medications: See EMR Review of Systems - Constitutional Constitutional: absent: Fever, Headache - EENT Ears: absent: Dizziness - Cardiovascular Cardiovascular: Dyspnea (On BiPAP, improving.). absent: Chest Pain - Respiratory Respiratory: Dyspnea (On BiPAP, improving.) - Gastrointestinal Gastrointestinal: absent: Abdominal Pain, Constipation, Diarrhea, Nausea, Vomiting - Neurological Neurological: absent: Dizziness, Headaches Past Patient History - Infectious Disease Hx of Infectious Diseases: None - Tetanus Immunizations Tetanus Immunization: Unknown - Past Medical History & Family History Past Medical History?: Yes - Past Social History Smoking Status: Never Smoked - CARDIAC Hx Hypertension: Yes - PULMONARY Hx Pneumonia: Yes - NEUROLOGICAL Hx Neurological Disorder: No - HEENT Hx HEENT Problems: Yes Hx Cataracts: Yes Other/Comment: corneal replacement both eyes - RENAL Hx Chronic Kidney Disease: Yes Hx Kidney Stones: Yes - ENDOCRINE/METABOLIC Hx Hypothyroidism: Yes - HEMATOLOGICAL/ONCOLOGICAL Hx Anemia: Yes - INTEGUMENTARY Hx Dermatological Problems: No - MUSCULOSKELETAL/RHEUMATOLOGICAL Hx Falls: No - GASTROINTESTINAL Hx Gastrointestinal Disorders: Yes Hx Constipation: Yes Hx Gastritis: Yes - GENITOURINARY/GYNECOLOGICAL Hx Genitourinary Disorders: No - PSYCHIATRIC Hx Substance Use: No - SURGICAL HISTORY Hx Surgeries: Yes Other/Comment: vascular stents - ANESTHESIA Hx Anesthesia: Yes Hx Anesthesia Reactions: No Meds Allergies/Adverse Reactions: Allergies Allergy/AdvReac Type Severity Reaction Status Date / Time No Known Allergies Allergy Verified 02/15/17 11:36 - Medications Medications: Current Medications Albuterol/Ipratropium (Duoneb 3 Mg/0.5 Mg (3 Ml) Ud) 3 ml INH RQ2 PRN PRN Reason: SOB Amlodipine Besylate (Norvasc) 10 mg PO DAILY [facility] Cilostazol (Pletal) 50 mg PO DAILY [facility] Enalapril Maleate (Vasotec) 20 mg PO DAILY [facility] Fenofibrate (Tricor) 48 mg PO DAILY [facility] Furosemide (Lasix) 40 mg IVP Q12H [facility] Last Admin: 02/16/17 05:27 Dose: 40 mg Heparin Sodium (Porcine) (Heparin) 5,000 units SC Q12 [facility] Last Admin: 02/15/17 21:56 Dose: 5,000 units Home Med (Fosamax) 35 mg PO QWK [facility] Ceftriaxone Sodium 1 gm/ (Dextrose) 100 mls @ 50 mls/30 min IVPB Q24H [facility] Last Admin: 02/15/17 19:10 Dose: 50 mls/30 min Azithromycin 500 mg/ Sodium (Chloride) 250 mls @ 167 mls/hr IVPB Q24H [facility] Last Admin: 02/15/17 19:11 Dose: 167 mls/hr Insulin Glargine (Lantus) 15 unit SC HS [facility] Last Admin: 02/15/17 21:55 Dose: 15 units Insulin Human Regular (Novolin R) 0 unit SC ACHS [facility] PRN Reason: Protocol Last Admin: 02/16/17 07:59 Dose: 4 unit Levothyroxine Sodium (Synthroid) 100 mcg PO ACB [facility] Last Admin: 02/16/17 06:44 Dose: 100 mcg Metoprolol Succinate (Toprol Xl) 25 mg PO DAILY [facility] Pantoprazole Sodium (Protonix Ec Tab) 40 mg PO DAILY [facility] Prasugrel (Effient) 10 mg PO DAILY [facility] Rosuvastatin Calcium (Crestor) 10 mg PO HS [facility] Last Admin: 02/15/17 21:59 Dose: 10 mg Physical Exam - Head Exam Head Exam: ATRAUMATIC, NORMAL INSPECTION - Eye Exam Eye Exam: EOMI, Normal appearance - ENT Exam ENT Exam: Mucous Membranes Dry - Respiratory Exam Respiratory Exam: Clear to Auscultation Bilateral. absent: Rhonchi, Wheezes, Respiratory Distress Additional comments: On BiPAP - Cardiovascular Exam Cardiovascular Exam: REGULAR RHYTHM, +S1, +S2 - GI/Abdominal Exam GI & Abdominal Exam: Normal Bowel Sounds, Soft. absent: Distended, Firm, Tenderness - Extremities Exam Extremities exam: Positive for: normal inspection. Negative for: pedal edema, tenderness - Neurological Exam Neurological exam: Alert, Oriented x3 - Psychiatric Exam Psychiatric exam: Normal Affect, Normal Mood - Skin Skin Exam: Dry, Intact, Normal Color, Warm Results - Vital Signs Recent Vital Signs: Last Vital Signs Temp 97.6 F 02/16/17 08:30 Pulse 81 02/16/17 08:30 Resp 18 02/16/17 08:30 BP 138/51 L 02/16/17 08:30 Pulse Ox 98 02/16/17 08:30 - Labs Result Diagrams: 02/16/17 07:25 02/16/17 07:25 Labs: Laboratory Results - last 24 hr 02/15/17 02/15/17 02/15/17 11:43 12:07 12:13 WBC 15.1 H RBC 2.50 L Hgb 7.8 L Hct 23.8 L MCV 95.2 D MCH 31.2 H MCHC 32.8 L RDW 18.0 H Plt Count 88 L D MPV 9.4 Neut % (Auto) 74.5 Lymph % (Auto) 11.4 L [place] % (Auto) 13.7 H Eos % (Auto) 0.1 Baso % (Auto) 0.3 Neut # 11.3 H Lymph # 1.7 [place] # 2.1 H Eos # 0.0 Baso # 0.0 Neutrophils % (Manual) Band Neutrophils % Lymphocytes % (Manual) Monocytes % (Manual) Differential Comment Platelet Estimate Hypochromasia (manual) Poikilocytosis (manual Basophilic Stippling Anisocytosis (manual) Retic Count PT INR APTT Puncture Site Rra pCO2 42 pO2 90 HCO3 26.2 ABG pH 7.41 ABG Total CO2 27.9 ABG O2 Saturation 99.3 H ABG Base Excess 1.7 Brayan Test Po ABG Potassium 5.7 H A-a O2 Difference 285.0 Respiratory Index 3.2 Sodium 137.0 Chloride 108.0 H Glucose 213 H Lactate 0.7 Vent Mode Bipap FiO2 60.0 Inspiratory BiPAP 10 Expiratory BiPAP 5 Potassium Carbon Dioxide Anion Gap BUN Creatinine Est GFR ( Amer) Est GFR (Non-Af Amer) POC Glucose (mg/dL) 246 H Random Glucose Hemoglobin A1c Calcium Iron TIBC % Saturation Ferritin Total Bilirubin AST ALT Alkaline Phosphatase Total Creatine Kinase CK-MB (Mass) Troponin I NT-Pro-B Natriuret Pep Total Protein Albumin Globulin Albumin/Globulin Ratio Triglycerides Cholesterol LDL Cholesterol Direct HDL Cholesterol Vitamin B12 Folate TSH 3rd Generation Arterial Blood Potassium 5.7 H Stool Occult Blood Hepatitis A IgM Ab Hep Bs Antigen Hep B Core IgM Ab Hepatitis C Antibody 02/15/17 02/15/17 02/15/17 12:13 12:13 14:17 WBC RBC Hgb Hct MCV MCH MCHC RDW Plt Count MPV Neut % (Auto) Lymph % (Auto) [place] % (Auto) Eos % (Auto) Baso % (Auto) Neut # Lymph # [place] # Eos # Baso # Neutrophils % (Manual) Band Neutrophils % Lymphocytes % (Manual) Monocytes % (Manual) Differential Comment Platelet Estimate Hypochromasia (manual) Poikilocytosis (manual Basophilic Stippling Anisocytosis (manual) Retic Count PT 14.1 H INR 1.2 APTT 32 Puncture Site pCO2 pO2 HCO3 ABG pH ABG Total CO2 ABG O2 Saturation ABG Base Excess Brayan Test ABG Potassium A-a O2 Difference Respiratory Index Sodium 138 Chloride 99 Glucose Lactate Vent Mode FiO2 Inspiratory BiPAP Expiratory BiPAP Potassium 5.6 H Carbon Dioxide 23 Anion Gap 22 H BUN 53 H Creatinine 1.9 H Est GFR ( Amer) 31 Est GFR (Non-Af Amer) 25 POC Glucose (mg/dL) Random Glucose 184 H Hemoglobin A1c Calcium 8.6 Iron TIBC % Saturation Ferritin Total Bilirubin 1.0 AST 15 ALT 28 Alkaline Phosphatase 49 Total Creatine Kinase 23 L CK-MB (Mass) 0.53 Troponin I < 0.0120 NT-Pro-B Natriuret Pep 3500 H Total Protein 9.1 H Albumin 4.1 Globulin 5.0 H Albumin/Globulin Ratio 0.8 L Triglycerides Cholesterol LDL Cholesterol Direct HDL Cholesterol Vitamin B12 Folate TSH 3rd Generation 5.60 H Arterial Blood Potassium Stool Occult Blood Negative Hepatitis A IgM Ab Hep Bs Antigen Hep B Core IgM Ab Hepatitis C Antibody 02/15/17 02/15/17 02/15/17 17:12 17:12 17:12 WBC RBC Hgb Hct MCV MCH MCHC RDW Plt Count MPV Neut % (Auto) Lymph % (Auto) [place] % (Auto) Eos % (Auto) Baso % (Auto) Neut # Lymph # [place] # Eos # Baso # Neutrophils % (Manual) Band Neutrophils % Lymphocytes % (Manual) Monocytes % (Manual) Differential Comment Platelet Estimate Hypochromasia (manual) Poikilocytosis (manual Basophilic Stippling Anisocytosis (manual) Retic Count 4.6 H D PT INR APTT Puncture Site pCO2 pO2 HCO3 ABG pH ABG Total CO2 ABG O2 Saturation ABG Base Excess Brayan Test ABG Potassium A-a O2 Difference Respiratory Index Sodium Chloride Glucose Lactate Vent Mode FiO2 Inspiratory BiPAP Expiratory BiPAP Potassium Carbon Dioxide Anion Gap BUN Creatinine Est GFR ( Amer) Est GFR (Non-Af Amer) POC Glucose (mg/dL) Random Glucose Hemoglobin A1c Calcium Iron 52 TIBC 263 % Saturation 20 Ferritin 330.0 Total Bilirubin AST ALT Alkaline Phosphatase Total Creatine Kinase CK-MB (Mass) Troponin I NT-Pro-B Natriuret Pep Total Protein Albumin Globulin Albumin/Globulin Ratio Triglycerides Cholesterol LDL Cholesterol Direct HDL Cholesterol Vitamin B12 705 Folate 9.9 TSH 3rd Generation Arterial Blood Potassium Stool Occult Blood Hepatitis A IgM Ab Hep Bs Antigen Hep B Core IgM Ab Hepatitis C Antibody 02/15/17 02/15/17 02/15/17 17:32 19:37 20:59 WBC RBC Hgb Hct MCV MCH MCHC RDW Plt Count MPV Neut % (Auto) Lymph % (Auto) [place] % (Auto) Eos % (Auto) Baso % (Auto) Neut # Lymph # [place] # Eos # Baso # Neutrophils % (Manual) Band Neutrophils % Lymphocytes % (Manual) Monocytes % (Manual) Differential Comment Platelet Estimate Hypochromasia (manual) Poikilocytosis (manual Basophilic Stippling Anisocytosis (manual) Retic Count PT INR APTT Puncture Site pCO2 pO2 HCO3 ABG pH ABG Total CO2 ABG O2 Saturation ABG Base Excess Brayan Test ABG Potassium A-a O2 Difference Respiratory Index Sodium Chloride Glucose Lactate Vent Mode FiO2 Inspiratory BiPAP Expiratory BiPAP Potassium Carbon Dioxide Anion Gap BUN Creatinine Est GFR ( Amer) Est GFR (Non-Af Amer) POC Glucose (mg/dL) 289 H 393 H Random Glucose Hemoglobin A1c Calcium Iron TIBC % Saturation Ferritin Total Bilirubin AST ALT Alkaline Phosphatase Total Creatine Kinase CK-MB (Mass) Troponin I NT-Pro-B Natriuret Pep Total Protein Albumin Globulin Albumin/Globulin Ratio Triglycerides Cholesterol LDL Cholesterol Direct HDL Cholesterol Vitamin B12 Folate TSH 3rd Generation Arterial Blood Potassium Stool Occult Blood Hepatitis A IgM Ab Reactive Hep Bs Antigen Negative Hep B Core IgM Ab Negative Hepatitis C Antibody Negative 02/16/17 02/16/17 02/16/17 00:31 01:57 06:21 WBC RBC Hgb Hct MCV MCH MCHC RDW Plt Count MPV Neut % (Auto) Lymph % (Auto) [place] % (Auto) Eos % (Auto) Baso % (Auto) Neut # Lymph # [place] # Eos # Baso # Neutrophils % (Manual) Band Neutrophils % Lymphocytes % (Manual) Monocytes % (Manual) Differential Comment Platelet Estimate Hypochromasia (manual) Poikilocytosis (manual Basophilic Stippling Anisocytosis (manual) Retic Count PT INR APTT Puncture Site pCO2 pO2 HCO3 ABG pH ABG Total CO2 ABG O2 Saturation ABG Base Excess Brayan Test ABG Potassium A-a O2 Difference Respiratory Index Sodium Chloride Glucose Lactate Vent Mode FiO2 Inspiratory BiPAP Expiratory BiPAP Potassium Carbon Dioxide Anion Gap BUN Creatinine Est GFR ( Amer) Est GFR (Non-Af Amer) POC Glucose (mg/dL) 313 H 290 H Random Glucose Hemoglobin A1c Calcium Iron TIBC % Saturation Ferritin Total Bilirubin AST ALT Alkaline Phosphatase Total Creatine Kinase CK-MB (Mass) Troponin I < 0.0120 NT-Pro-B Natriuret Pep Total Protein Albumin Globulin Albumin/Globulin Ratio Triglycerides Cholesterol LDL Cholesterol Direct HDL Cholesterol Vitamin B12 Folate TSH 3rd Generation Arterial Blood Potassium Stool Occult Blood Hepatitis A IgM Ab Hep Bs Antigen Hep B Core IgM Ab Hepatitis C Antibody 02/16/17 02/16/17 02/16/17 07:25 07:25 07:25 WBC 13.2 H RBC 2.33 L Hgb 7.4 L Hct 22.4 L MCV 96.3 MCH 31.7 H MCHC 32.9 L RDW 17.8 H Plt Count 84 L MPV 10.1 Neut % (Auto) 88.1 H Lymph % (Auto) 7.7 L [place] % (Auto) 4.1 Eos % (Auto) 0.0 Baso % (Auto) 0.1 Neut # 11.6 H Lymph # 1.0 [place] # 0.5 Eos # 0.0 Baso # 0.0 Neutrophils % (Manual) 87 H Band Neutrophils % 3 H Lymphocytes % (Manual) 7 L Monocytes % (Manual) 3 Differential Comment Platelet Estimate Decreased L Hypochromasia (manual) Slight Poikilocytosis (manual Slight Basophilic Stippling Slight Anisocytosis (manual) Slight Retic Count PT INR APTT Puncture Site pCO2 pO2 HCO3 ABG pH ABG Total CO2 ABG O2 Saturation ABG Base Excess Brayan Test ABG Potassium A-a O2 Difference Respiratory Index Sodium 135 Chloride 99 Glucose Lactate Vent Mode FiO2 Inspiratory BiPAP Expiratory BiPAP Potassium 5.1 Carbon Dioxide 22 Anion Gap 20 BUN 66 H Creatinine 2.5 H Est GFR ( Amer) 22 Est GFR (Non-Af Amer) 19 POC Glucose (mg/dL) Random Glucose 254 H Hemoglobin A1c 6.3 Calcium 8.3 L Iron TIBC % Saturation Ferritin Total Bilirubin 0.7 AST 15 ALT 21 Alkaline Phosphatase 47 Total Creatine Kinase CK-MB (Mass) Troponin I < 0.0120 NT-Pro-B Natriuret Pep Total Protein 8.5 H Albumin 4.0 Globulin 4.5 H Albumin/Globulin Ratio 0.9 L Triglycerides 79 Cholesterol 107 LDL Cholesterol Direct 35 HDL Cholesterol 32 Vitamin B12 Folate TSH 3rd Generation Arterial Blood Potassium Stool Occult Blood Hepatitis A IgM Ab Hep Bs Antigen Hep B Core IgM Ab Hepatitis C Antibody Assessment & Plan (1) Anemia Assessment and Plan: Likely secondary to chronic disease. Iron, folate, ferritin, vitamin B12- within normal limits; stool occult negative. Patient has elevated globulin gap, will follow up work up for monoclonal gammopathy/multiple myeloma. Follow up results. Ordered 1 unit PRBC today for hgb 7.4. Patient should follow up as outpatient with personal radiology transporter, Dr. Enrique , for bone marrow biopsy. Status: Acute (2) Thrombocytopenia Assessment and Plan: Patient to follow up outpatient with personal radiology transporter, Dr. Enrique for bone marrow biopsy. Hepatitis panel and HIV1/2- negative. Status: Acute
--- NOTE | 2017-02-16 10:26 | RAD ---
Chest x-ray two views History: Shortness of breath. Comparison: 02/15/2017 Findings: Moderate to severe venous congestion with prominent confluent consolidative changes at both lung bases with a moderate left and small right pleural effusion. Cardiomegaly. Bilateral hilar prominence. Degenerative changes in the spine and shoulders. Calcification at the aortic knob. Aortic calcifications. Impression: Moderate to severe venous congestion with prominent confluent consolidative changes at both lung bases with a moderate left and small right pleural effusion. Cardiomegaly. Bilateral hilar prominence. Degenerative changes in the spine and shoulders. Calcification at the aortic knob. Aortic calcifications.
[2017-02-16] MEDS: Metoprolol Succinate 25 mg XL Tab PO SCH (10:31)
[2017-02-16] MEDS: Cilostazol 50 mg Tab UD PO SCH (10:31)
[2017-02-16] MEDS: Pantoprazole 40 mg EC Tab PO SCH (10:31)
[2017-02-16] MEDS ORDERED: Petrolatum Oint Foilpak (5 gm) TOP PRN (10:34)
--- NOTE | 2017-02-16 12:16 | CARD ---
APPROVED REPORT EKG Measurement Heart [id number] [place] [id number] [id number] <Conclusion> Normal sinus rhythm Normal ECG
--- NOTE | 2017-02-16 12:31 | CT ---
PROCEDURE: CT Chest without contrast HISTORY: fluid overload, abnormal cxr COMPARISON: Chest CT without contrast 05/26/2015. TECHNIQUE: Contiguous axial images were obtained through the chest without intravenous contrast enhancement. Sagittal and coronal reconstructions were performed. Radiation dose (DLP): 654.13 mGy-cm. This CT exam was performed using one or more of the following dose reduction techniques: Automated exposure control, adjustment of the mA and/or kV according to patient size, and/or use of iterative reconstruction technique. FINDINGS: LUNGS: Ground-glass opacities increase in the bilateral upper and lower lobes as well as the right middle lobe. Interlobular septal thickening is relatively prominent at the upper lobes particularly the apices and pattern is likely a function of CHF. Bilateral lower lobe compressive atelectasis appreciate related to pleural effusions. Underlying infiltrate is not completely excluded. A 3 mm right apical pulmonary nodule is identified which may be different than the previous the demonstrate right apical nodule which may not be captured currently. MEDIASTINUM: Cardiomegaly is noted.The thoracic aorta is normal in caliber with the pulmonary artery appearing slightly larger than the thoracic aorta measuring 3.6 cm and pulmonary arterial hypertension is not excluded. Prominence of the right heart compartments may indicate right heart failure further. A vena cava is not significantly dilated however. Pulmonary veins in the bilateral hilar regions appear prominent when compared to paired airways and pattern favors CHF as discussed above. Prominent mitral annular calcifications are identified. Moderate coronary artery calcifications are also noted. PLEURA: No pericardial effusion. Mild bilateral pleural effusions are identified exerting compression atelectasis of the bilateral lower lobes. BONES: No fracture. No destructive lesion. UPPER ABDOMEN: Grossly unremarkable. OTHER FINDINGS: None. IMPRESSION: 1. Vascular pattern suggests CHF as discussed above. However, the main pulmonary artery is also dilated to 3.6 cm, greater in caliber than the thoracic aorta and the right ventricle and atrium appears somewhat prominent compared to the left heart. Consider pulmonary arterial hypertension. Contrast dating this possibility is of normal apparent size to the inferior vena cava. Further clinical correlation is advised. 2. Mild bilateral pleural effusions is are compression atelectasis at the bilateral lower lobes with underlying pneumonia not completely excluded. 3. 3 mm right apical noncalcified nodule for which follow-up chest is advised in 12 months is imaged to demonstrate stability. Lung rads 2.
--- NOTE | 2017-02-16 15:37 | CARD ---
APPROVED REPORT EKG Measurement Heart [id number] [place] 142P1 [id number] <Conclusion> Normal sinus rhythm Anterior infarct, age undetermined Abnormal ECG
[2017-02-16] MEDS: cefTRIAXone IV 1 gm in Dextros 1 GM in Dextrose 5% In Water 50 ML IVPB SCH (18:17)
--- NOTE | 2017-02-16 18:37 | CP.PCM.PN ---
Subjective - Date & Time of Evaluation Date of Evaluation: 02/16/17 Time of Evaluation: 18:37 - Subjective Subjective: Pt seen and examined No events overnight On and off BiPAP Objective - Vital Signs/Intake and Output Vital Signs (last 24 hours): Temp Pulse Resp BP Pulse Ox 98.4 F 85 20 164/80 H 98 02/16/17 15:30 02/16/17 15:30 02/16/17 15:30 02/16/17 15:30 02/16/17 15:30 Intake and Output: 02/16/17 02/16/17 06:59 18:59 Intake Total 540 Output Total 800 Balance -260 - Medications Medications: Current Medications Albuterol/Ipratropium (Duoneb 3 Mg/0.5 Mg (3 Ml) Ud) 3 ml INH RQ2 PRN PRN Reason: SOB Amlodipine Besylate (Norvasc) 10 mg PO DAILY [facility] Last Admin: 02/16/17 10:31 Dose: 10 mg Cilostazol (Pletal) 50 mg PO DAILY [facility] Last Admin: 02/16/17 10:31 Dose: 50 mg Emollient Ointment (Vaseline Oint) 5 gm TOP PRN PRN PRN Reason: Dry skin Enalapril Maleate (Vasotec) 20 mg PO DAILY [facility] Last Admin: 02/16/17 10:31 Dose: 20 mg Fenofibrate (Tricor) 48 mg PO DAILY [facility] Last Admin: 02/16/17 10:32 Dose: 48 mg Furosemide (Lasix) 20 mg IVP Q12 [facility] Last Admin: 02/16/17 10:47 Dose: 20 mg Heparin Sodium (Porcine) (Heparin) 5,000 units SC Q12 [facility] Last Admin: 02/16/17 10:40 Dose: 5,000 units Home Med (Fosamax) 35 mg PO QWK [facility] Ceftriaxone Sodium 1 gm/ (Dextrose) 100 mls @ 50 mls/30 min IVPB Q24H [facility] Last Admin: 02/16/17 18:17 Dose: 50 mls/30 min Azithromycin 500 mg/ Sodium (Chloride) 250 mls @ 167 mls/hr IVPB Q24H [facility] Last Admin: 02/15/17 19:11 Dose: 167 mls/hr Insulin Glargine (Lantus) 15 unit SC HS [facility] Last Admin: 02/15/17 21:55 Dose: 15 units Insulin Human Regular (Novolin R) 0 unit SC ACHS [facility] PRN Reason: Protocol Last Admin: 02/16/17 18:05 Dose: Not Given Levothyroxine Sodium (Synthroid) 100 mcg PO ACB [facility] Last Admin: 02/16/17 06:44 Dose: 100 mcg Metoprolol Succinate (Toprol Xl) 25 mg PO DAILY [facility] Last Admin: 02/16/17 10:31 Dose: 25 mg Pantoprazole Sodium (Protonix Ec Tab) 40 mg PO DAILY [facility] Last Admin: 02/16/17 10:31 Dose: 40 mg Prasugrel (Effient) 10 mg PO DAILY [facility] Last Admin: 02/16/17 10:41 Dose: 10 mg Rosuvastatin Calcium (Crestor) 10 mg PO HS [facility] Last Admin: 02/15/17 21:59 Dose: 10 mg - Labs Labs: 02/16/17 07:25 02/16/17 07:25 PT 14.1 SECONDS (9.7-12.2) H 02/15/17 12:13 INR 1.2 02/15/17 12:13 APTT 32 SECONDS (21-34) 02/15/17 12:13 - Head Exam Head Exam: NORMAL INSPECTION - Eye Exam Eye Exam: Normal appearance - ENT Exam ENT Exam: Mucous Membranes Moist - Respiratory Exam Respiratory Exam: Rales - Cardiovascular Exam Cardiovascular Exam: REGULAR RHYTHM, +S1, +S2 - GI/Abdominal Exam GI & Abdominal Exam: Soft, Normal Bowel Sounds - Extremities Exam Extremities Exam: Normal Inspection - Neurological Exam Neurological Exam: Alert, Awake - Psychiatric Exam Psychiatric exam: Normal Affect, Normal Mood Assessment and Plan - Assessment and Plan (Free Text) Assessment: Acute and Chronic respiratory insufficiency with hypoxemia CHF exacerbation Pulmonary hypertension ENRIQUE Continue BiPAP as needed Lasix Monitor I's and O's Bronchodilators Supportive care DVT/GI prophylaxis
[2017-02-16] MEDS: Azithromycin 500 MG in Sodium Chloride 0.9% 250 ML IVPB SCH (18:56)
[2017-02-16] MEDS: (Lantus) Insulin Glargine, Recombinant SC SCH (23:08)
[2017-02-17] MEDS: (Novolin R) Insulin Human Regular 100 units/ml vial SC SCH ×4 (07:57→22:16)
--- NOTE | 2017-02-17 08:17 | RAD ---
HISTORY: sob COMPARISON: Chest radiographs 02/16/2017. TECHNIQUE: Chest PA and lateral FINDINGS: LUNGS: Bilateral airspace disease persists at the bases and is increased at left perihilar region. PLEURA: Trace of pleural effusion is not excluded. There is no right pleural effusion or pneumothorax bilaterally. CARDIOVASCULAR: Pulmonary venous congestion persists though only [id number] at this time. OSSEOUS STRUCTURES: No significant abnormalities. VISUALIZED UPPER ABDOMEN: Normal. OTHER FINDINGS: None. IMPRESSION: Diminished pulmonary venous congestion with persistent air. Airspace disease identified in the bilateral bases as well as the left perihilar region where an increase is noted in the interval.
[2017-02-17] MEDS: Levothyroxine 100 MCG TAB PO SCH (08:39)
--- NOTE | 2017-02-17 09:02 | CP.PCM.PN ---
Subjective - Date & Time of Evaluation Date of Evaluation: 02/17/17 Time of Evaluation: 09:02 - Subjective Subjective: Progress note for Dr. Blake- PGY1 Patient was seen and examined at bedside in no acute distress. Patient did not have BiPAP on at the moment. She reports feeling better and has no complaints today. She states her breathing improves with the BiPAP. Patient denies chest pain, abdominal pain, leg pain, nausea, vomiting, and fevers. She reports having normal bowel movements and tolerating her diet. Objective - Vital Signs/Intake and Output Vital Signs (last 24 hours): Temp Pulse Resp BP Pulse Ox 97.6 F 74 20 129/68 98 02/17/17 08:22 02/17/17 08:22 02/17/17 08:22 02/17/17 08:22 02/17/17 08:22 Intake and Output: 02/17/17 02/17/17 06:59 18:59 Intake Total 425 Balance 425 - Medications Medications: Current Medications Albuterol/Ipratropium (Duoneb 3 Mg/0.5 Mg (3 Ml) Ud) 3 ml INH RQ2 PRN PRN Reason: SOB Amlodipine Besylate (Norvasc) 10 mg PO DAILY [facility] Last Admin: 02/16/17 10:31 Dose: 10 mg Cilostazol (Pletal) 50 mg PO DAILY [facility] Last Admin: 02/16/17 10:31 Dose: 50 mg Emollient Ointment (Vaseline Oint) 5 gm TOP PRN PRN PRN Reason: Dry skin Enalapril Maleate (Vasotec) 20 mg PO DAILY [facility] Last Admin: 02/16/17 10:31 Dose: 20 mg Fenofibrate (Tricor) 48 mg PO DAILY [facility] Last Admin: 02/16/17 10:32 Dose: 48 mg Furosemide (Lasix) 20 mg IVP Q12 [facility] Last Admin: 02/16/17 23:07 Dose: 20 mg Home Med (Fosamax) 35 mg PO QWK [facility] Ceftriaxone Sodium 1 gm/ (Dextrose) 100 mls @ 50 mls/30 min IVPB Q24H [facility] Last Admin: 02/16/17 18:17 Dose: 50 mls/30 min Azithromycin 500 mg/ Sodium (Chloride) 250 mls @ 167 mls/hr IVPB Q24H [facility] Last Admin: 02/16/17 18:56 Dose: 167 mls/hr Insulin Glargine (Lantus) 15 unit SC [facility] Last Admin: 02/16/17 23:08 Dose: 15 units Insulin Human Regular (Novolin R) [address] [facility] PRN Reason: Protocol Last Admin: 02/17/17 07:57 Dose: Not Given Levothyroxine Sodium (Synthroid) 100 mcg PO DAILY@0630 [facility] Last Admin: 02/17/17 08:39 Dose: 100 mcg Metoprolol Succinate (Toprol Xl) 25 mg PO DAILY [facility] Last Admin: 02/16/17 10:31 Dose: 25 mg Pantoprazole Sodium (Protonix Ec Tab) 40 mg PO DAILY [facility] Last Admin: 02/16/17 10:31 Dose: 40 mg Prasugrel (Effient) 10 mg PO DAILY [facility] Last Admin: 02/16/17 10:41 Dose: 10 mg Rosuvastatin Calcium (Crestor) 10 mg PO [facility] Last Admin: 02/16/17 23:09 Dose: 10 mg - Labs Labs: 02/16/17 07:25 02/16/17 07:25 PT 14.1 SECONDS (9.7-12.2) H 02/15/17 12:13 INR 1.2 02/15/17 12:13 APTT 32 SECONDS (21-34) 02/15/17 12:13 - Head Exam Head Exam: ATRAUMATIC, NORMAL INSPECTION - Eye Exam Eye Exam: EOMI - ENT Exam ENT Exam: Mucous Membranes Moist - Respiratory Exam Respiratory Exam: Rales. absent: Rhonchi, Wheezes Additional comments: On BiPAP - Cardiovascular Exam Cardiovascular Exam: +S1, +S2. absent: Bradycardia, Tachycardia - GI/Abdominal Exam GI & Abdominal Exam: Soft, Tenderness (LLQ), Normal Bowel Sounds - Neurological Exam Neurological Exam: Alert, Awake, Oriented x3 - Psychiatric Exam Psychiatric exam: Normal Affect, Normal Mood - Skin Skin Exam: Dry, Intact, Normal Color, Warm Assessment and Plan (1) Anemia Assessment & Plan: Likely secondary to chronic disease. Iron, folate, ferritin, vitamin B12- within normal limits; stool occult negative. Patient has elevated globulin gap, will follow up work up for monoclonal gammopathy/multiple myeloma. Patient should follow up as outpatient with personal ekg tech, Dr. Enrique , for bone marrow biopsy. Status: Acute (2) Thrombocytopenia Assessment & Plan: Patient to follow up outpatient with personal ekg tech, Dr. Enrique for bone marrow biopsy. Hepatitis panel and HIV1/2- negative. Status: Acute
[2017-02-17] MEDS: Metoprolol Succinate 25 mg XL Tab PO SCH (09:29)
[2017-02-17] MEDS: Pantoprazole 40 mg EC Tab PO SCH (09:29)
[2017-02-17] MEDS: Cilostazol 50 mg Tab UD PO SCH (09:29)
[2017-02-17 11:34] LABS: BASO % 0.1 % (0.0-2.0); HEMATOCRIT 25.1 % (34.0-47.0); LYMPH # 1.5 K/uL (1.0-4.3); LYMPH % 8.1 % (20.0-40.0); MEAN CELL VOLUME 94.9 fL (81.0-99.0); MEAN CORPUSCULAR HEMOGLOBIN 31.3 pg (27.0-31.0); MEAN PLATELET VOLUME 10.2 fL (7.2-11.7); MONO # 3.2 K/uL (0.0-0.8); MONO % 16.8 % (0.0-10.0); PLATELET COUNT 84 K/uL (130-400); RED CELL DISTRIBUTION WIDTH 17.9 % (11.5-14.5)
[2017-02-17 12:02] LABS: ALB/GLOB RATIO 0.9 (1.0-2.1); BILIRUBIN,TOTAL 0.6 mg/dL (0.2-1.3); PHOSPHOROUS 6.3 mg/dL (2.5-4.5); TOTAL PROTEIN 8.3 g/dL (6.3-8.3)
[2017-02-17 12:03] LABS: CALCIUM 8.6 mg/dl (8.6-10.4); MAGNESIUM 2.9 mg/dL (1.6-2.3)
[2017-02-17 12:10] LABS: NEUTROPHIL 71 % (50-75); TOTAL CELLS COUNTED 100
--- NOTE | 2017-02-17 13:00 | VASCLAB ---
PROCEDURE: Lower Extremity Venous Duplex Exam. HISTORY: Bilateral lower leg swelling PRIORS: None. TECHNIQUE: Bilateral common femoral, femoral, popliteal and posterior tibial, peroneal and great saphenous veins were evaluated. Flow was assessed with color Doppler, compressibility, assessment of phasic flow and augmentation response. Report prepared by Lamberto Arias, EVERARDO, RVT FINDINGS: RIGHT: 1. Common Femoral Vein: 1.1. Compressibility - Fully compressible: Thrombus - None : Flow - Phasic: Augmentation -Normal: Reflux - None. 2. Femoral Vein: 2.1. Compressibility - Fully compressible: Thrombus - None : Flow - Phasic: Augmentation -Normal: Reflux - None. 3. Popliteal Vein: 3.1. Compressibility - Fully compressible: Thrombus - None : Flow - Phasic: Augmentation -Normal: Reflux - None. 4. Posterior Tibial Vein: 4.1. Compressibility - Fully compressible: Thrombus - None: Flow - Phasic: Augmentation -Normal: Reflux - None. 5. Peroneal Vein: 5.1. Compressibility - Fully compressible: Thrombus - None: Flow - Phasic: Augmentation -Normal: Reflux - None. 6. Great Saphenous Vein: 6.1. Compressibility - Fully compressible: Thrombus - None: Flow - Phasic: Augmentation - Normal: Reflux - None. LEFT: 1. Common Femoral Vein: 1.1. Compressibility - Fully compressible: Thrombus - None: Flow - Phasic: Augmentation -Normal: Reflux - None. 2. Femoral Vein: 2.1. Compressibility - Fully compressible: Thrombus - None: Flow - Phasic: Augmentation -Normal: Reflux - None. 3. Popliteal Vein: 3.1. Compressibility - Fully compressible: Thrombus - None : Flow - Phasic: Augmentation -Normal: Reflux - None. 4. Posterior Tibial Vein: 4.1. Compressibility - Fully compressible: Thrombus - None: Flow - Phasic: Augmentation -Normal: Reflux - None. 5. Peroneal Vein: 5.1. Compressibility - Fully compressible: Thrombus - None: Flow - Phasic: Augmentation -Normal: Reflux - None. 6. Great Saphenous Vein: 6.1. Compressibility - Fully compressible: Thrombus - None: Flow - Phasic: Augmentation - Normal: Reflux - None. OTHER FINDINGS: Right: None significant. Left: None significant. IMPRESSION: Right: No evidence of deep or superficial vein thrombosis of the right lower extremity. Normal valve function noted of the right side. Left: No evidence of deep or superficial vein thrombosis of the left lower extremity. Normal valve function noted of the left side.
--- NOTE | 2017-02-17 14:11 | CP.PCM.PN ---
<BrianTanya - Last Filed: 02/17/17 14:07> Subjective - Date & Time of Evaluation Date of Evaluation: 02/17/17 Time of Evaluation: 09:00 - Subjective Subjective: Medicine Note for Dr. Reyes Patient was seen and examined at bedside. Patient is wearing her bi-pap mask, sitting upright in her bed. She states that she is doing much better today compared to yesterday. She states she slept well and her breathing feels much improved. Denies f/c, n/v/d, sob, cp, abdominal pain or headaches. Objective - Vital Signs/Intake and Output Vital Signs (last 24 hours): Temp Pulse Resp BP Pulse Ox 97.6 F 82 20 129/62 98 02/17/17 08:22 02/17/17 13:34 02/17/17 08:22 02/17/17 09:49 02/17/17 08:22 Intake and Output: 02/17/17 02/17/17 06:59 18:59 Intake Total 425 Balance 425 - Medications Medications: Current Medications Albuterol/Ipratropium (Duoneb 3 Mg/0.5 Mg (3 Ml) Ud) 3 ml INH RQ2 PRN PRN Reason: SOB Amlodipine Besylate (Norvasc) 10 mg PO DAILY [facility] Last Admin: 02/17/17 09:30 Dose: 10 mg Cilostazol (Pletal) 50 mg PO DAILY [facility] Last Admin: 02/17/17 09:29 Dose: 50 mg Emollient Ointment (Vaseline Oint) 5 gm TOP PRN PRN PRN Reason: Dry skin Enalapril Maleate (Vasotec) 20 mg PO DAILY [facility] Last Admin: 02/17/17 09:49 Dose: 20 mg Fenofibrate (Tricor) 48 mg PO DAILY [facility] Last Admin: 02/17/17 09:29 Dose: 48 mg Furosemide (Lasix) 20 mg IVP Q12 [facility] Last Admin: 02/17/17 09:32 Dose: 20 mg Home Med (Fosamax) 35 mg PO QWK [facility] Ceftriaxone Sodium 1 gm/ (Dextrose) 100 mls @ 50 mls/30 min IVPB Q24H [facility] Last Admin: 02/16/17 18:17 Dose: 50 mls/30 min Azithromycin 500 mg/ Sodium (Chloride) 250 mls @ 167 mls/hr IVPB Q24H [facility] Last Admin: 02/16/17 18:56 Dose: 167 mls/hr Insulin Glargine (Lantus) 15 unit SC [facility] Last Admin: 02/16/17 23:08 Dose: 15 units Insulin Human Regular (Novolin R) 0 unit SC [facility] PRN Reason: Protocol Last Admin: 02/17/17 12:47 Dose: 3 unit Levothyroxine Sodium (Synthroid) 100 mcg PO DAILY@0630 [facility] Last Admin: 02/17/17 08:39 Dose: 100 mcg Metoprolol Succinate (Toprol Xl) 25 mg PO DAILY [facility] Last Admin: 02/17/17 09:29 Dose: 25 mg Pantoprazole Sodium (Protonix Ec Tab) 40 mg PO DAILY [facility] Last Admin: 02/17/17 09:29 Dose: 40 mg Prasugrel (Effient) 10 mg PO DAILY [facility] Last Admin: 02/17/17 11:01 Dose: 10 mg Rosuvastatin Calcium (Crestor) 10 mg PO [facility] Last Admin: 02/16/17 23:09 Dose: 10 mg - Labs Labs: 02/17/17 11:29 02/17/17 11:29 PT 14.1 SECONDS (9.7-12.2) H 02/15/17 12:13 INR 1.2 02/15/17 12:13 APTT 32 SECONDS (21-34) 02/15/17 12:13 - Constitutional Appears: No Acute Distress - Head Exam Head Exam: NORMAL INSPECTION, NORMOCEPHALIC - Eye Exam Eye Exam: EOMI, Normal appearance, PERRL Pupil Exam: NORMAL ACCOMODATION - ENT Exam ENT Exam: Mucous Membranes Moist - Respiratory Exam Respiratory Exam: Clear to Ausculation Bilateral, NORMAL BREATHING PATTERN. absent: Decreased Breath Sounds, Rhonchi, Wheezes - Cardiovascular Exam Cardiovascular Exam: REGULAR RHYTHM, RRR, +S1, +S2 - GI/Abdominal Exam GI & Abdominal Exam: Soft, Normal Bowel Sounds. absent: Distended, Tenderness - Extremities Exam Extremities Exam: Normal Inspection. absent: Pedal Edema, Tenderness - Neurological Exam Neurological Exam: Alert, Awake, Oriented x3 - Psychiatric Exam Psychiatric exam: Normal Affect, Normal Mood - Skin Skin Exam: Dry, Intact, Normal Color, Warm Assessment and Plan - Assessment and Plan (Free Text) Plan: SOB Secondary to COPD vs CHF vs CKD vs anemia, [place] [facility] Initial pulse ox 70s, elevated to 96 after BIPAP. Duoneb and Lasix 40mg IV given in ED. EKG showed NSR @ 76 bpm without acute changes. CXR 02/15/17 - showed no PE but with bilateral infiltrates per report. WBC 13.[address] bands. ABG WNL. Dr. Day and David consulted, help appreciated. Duoneb and BIPAP PRN. Lasix 40mg IV q12H - decreased to 20mg IV Q12 due to worsening Creatinine troponins - negative x3 CXR (02/16/17) - Moderate to severe venous congestion with prominent confluent consolidative changes at both lung bases with a moderate left and small right pleural effusion. Cardiomegaly. Bilateral hilar prominence. Degenerative changes in the spine and shoulders. Calcification at the aortic knob. Aortic calcifications. EKG - no change Chest CT w/o (02/16/17): Vascular pattern suggests CHF as discussed above. However, the main pulmonary artery is also dilated to 3.6 cm, greater in caliber than the thoracic aorta and the right ventricle and atrium appears somewhat prominent compared to the left heart. Consider pulmonary arterial hypertension. Contrast dating this possibility is of normal apparent size to the inferior vena cava. Further clinical correlation is advised. Mild bilateral pleural effusions is are compression atelectasis at the bilateral lower lobes with underlying pneumonia not completely excluded. 3 mm right apical noncalcified nodule for which follow-up chest is advised in 12 months is imaged to demonstrate stability. Lung rads 2 Pt has hx of pulmonary nodule from CT 2016, will consider CT later if symptoms not resolving. Continue bi-pap as needed P[place] [facility] Request sent - files retrieved; ECHO : normal EF with diastolic dysfunction type 2, . Cardiac Cath 09/15/2016: Mid LAD 90% stenosis , KAREL placed. Prox CX, mid subsection 50% stenosis, LVEF 40%. CKD Creatine today 3.2, baseline 1.8. Per pt daughter, pt has kidney stone and atrophy observed on ultrasound done [place] [facility] nonobstructing 9mm stone right kidney Nephrology consult - Dr. Langston - help appreciated Continued on lasix 20mg IVP daily Anemia Likely secondary to chronic kidney disease. Ferritin 93 last year. Current FOBT negative, s/p unremarkable EGD a month ago per daughter. Pt sees private heme/onc Dr. Avel Day outpatient, scheduled for biopsy 02/16. Heme/onc Dr. Blake consulted, help appreciated. reticulocyte 4.6 high Iron 52 TIBC 263 %sat 20 Ferritin 330 Vitamin B12 705 Folate 9.9 Thrombocytopenia Heme/onc Dr. Blake consulted, help appreciated. Hep A Ab postive Hep Bs antigen, core IgM Ab and Hep C Ab - negative DM RISS, accucheck. Continue home med Lantus 15 units HS. Withhold oral meds. A1c - 8.5 Hypothyroidism TSH 5.6 Continue home med Synthroid 100mcg PO ACB PAD Cardio Dr. Day consulted, help appreciated. Continue home med Pletal and Effient. Prophylactic measure Protonix, HepSQ. venous doppler - normal, no abnormal findings. DW Dr. Reyes, Brian NUNN, PGY-1 <Reji Reyes - Last Filed: 02/17/17 15:49> Objective - Vital Signs/Intake and Output Vital Signs (last 24 hours): Temp Pulse Resp BP Pulse Ox 97.6 F 82 20 129/62 98 02/17/17 08:22 02/17/17 13:34 02/17/17 08:22 02/17/17 09:49 02/17/17 08:22 Intake and Output: 02/17/17 02/17/17 06:59 18:59 Intake Total 425 Balance 425 - Medications Medications: Current Medications Albuterol/Ipratropium (Duoneb 3 Mg/0.5 Mg (3 Ml) Ud) 3 ml INH RQ2 PRN PRN Reason: SOB Amlodipine Besylate (Norvasc) 10 mg PO DAILY [facility] Last Admin: 02/17/17 09:30 Dose: 10 mg Cilostazol (Pletal) 50 mg PO DAILY [facility] Last Admin: 02/17/17 09:29 Dose: 50 mg Emollient Ointment (Vaseline Oint) 5 gm TOP PRN PRN PRN Reason: Dry skin Epoetin Brandon (Procrit) 10,000 unit SC MWF [facility] Fenofibrate (Tricor) 48 mg PO DAILY [facility] Last Admin: 02/17/17 09:29 Dose: 48 mg Ferric Sodium Gluconate Complex (Ferrlecit) 125 mg IVPB DAILY [facility] Stop: 02/21/17 15:31 Furosemide (Lasix) 20 mg IVP DAILY [facility] Home Med (Fosamax) 35 mg PO QWK [facility] Ceftriaxone Sodium 1 gm/ (Dextrose) 100 mls @ 50 mls/30 min IVPB Q24H [facility] Last Admin: 02/16/17 18:17 Dose: 50 mls/30 min Azithromycin 500 mg/ Sodium (Chloride) 250 mls @ 167 mls/hr IVPB Q24H [facility] Last Admin: 02/16/17 18:56 Dose: 167 mls/hr Insulin Glargine (Lantus) 15 unit SC [facility] Last Admin: 02/16/17 23:08 Dose: 15 units Insulin Human Regular (Novolin R) 0 unit SC [facility] PRN Reason: Protocol Last Admin: 02/17/17 12:47 Dose: 3 unit Levothyroxine Sodium (Synthroid) 100 mcg PO DAILY@0630 [facility] Last Admin: 02/17/17 08:39 Dose: 100 mcg Metoprolol Succinate (Toprol Xl) 25 mg PO DAILY [facility] Last Admin: 02/17/17 09:29 Dose: 25 mg Pantoprazole Sodium (Protonix Ec Tab) 40 mg PO DAILY [facility] Last Admin: 02/17/17 09:29 Dose: 40 mg Prasugrel (Effient) 10 mg PO DAILY [facility] Last Admin: 02/17/17 11:01 Dose: 10 mg Rosuvastatin Calcium (Crestor) 10 mg PO [facility] Last Admin: 02/16/17 23:09 Dose: 10 mg - Labs Labs: 02/17/17 11:29 02/17/17 11:29 PT 14.1 SECONDS (9.7-12.2) H 02/15/17 12:13 INR 1.2 02/15/17 12:13 APTT 32 SECONDS (21-34) 02/15/17 12:13 Attending/Attestation - Attestation I have personally seen and examined this patient.: Yes I have fully participated in the care of the patient.: Yes I have reviewed all pertinent clinical information, including history, physical exam and plan: Yes Notes (Text): Medical Attending: Patient was seen and examined by me. Agree with the above note by the resident The patient was with family member at bedside. The patient reported no chest pain, no shortness of breath at rest. The patient walked around with assistance, however I did not see this myself The patient had files retrieved [place] [facility] was normal EF with diastolic dysfunction type 2 She had a cardiac cath 09/15/2016: Mid LAD 90% stenosis, KAREL placed. Prox CX, mid subsection 50% stenosis, LVEF 40%. The creatine has increased to 3.2 - from previous records her creatine has been around 2.5 for some time now. Will continue to follow, asking for nephrology consult thank you Reji Reyes
--- NOTE | 2017-02-17 15:18 | CP.PCM.CON ---
History of Present Illness - History of Present Illness History of Present Illness: 81F PMHx anemia, CKD, DM, hypothyroidism, PAD and "minor heart attack" in 2016 presented with worsening SOB since yesterday. Daughter and grandchildren at bedside help providing history as pt currently on BIPAP. Pt was [place] [facility] [place] complaints and was discharged a week ago. Pt admits to nonproductive cough at first and wheezing since yesterday as well. Denied fever, chills, chest pain, abdominal pain, n/v, palpitations, constipation, diarrhea. Pt also had workup done in the past year including unremarkable ECHO, EGD, FOBT and cath. Pt had kidney ultrasound done and had stone in one of the kidneys and atrophy in the other, per daughter. Pt also scheduled to have bone marrow biopsy tomorrow with her private heme/onc Dr. Avel Day. Pt also has been receiving weekly iron infusion therapy per daughter since 08/2016 after the "minor heart attack". Pt also scheduled to have sleep study with Dr. Hernandez next Monday. Pt had transfusion at [facility] recently for hgb of 7.3 as well. 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 Allergies: NKDA Consulted due to progressive LUCRECIA during hospital stay Review of Systems - Constitutional Constitutional: Fatigue, Weakness - EENT Eyes: Blurred Vision, Change in Vision Ears: absent: As Per HPI, Decreased Hearing, Ear Discharge, Ear Pain, Tinnitus, Abnormal Hearing, Disequilibrium, Dizziness, Other - Cardiovascular Cardiovascular: Dyspnea on Exertion, Leg Edema - Respiratory Respiratory: Cough, Dyspnea on Exertion - Gastrointestinal Gastrointestinal: Early Satiety, Nausea - Genitourinary Genitourinary: Difficulty Urinating - Musculoskeletal Musculoskeletal: Muscle Cramps, Muscle Weakness - Integumentary Integumentary: absent: As Per HPI, Acne, Alopecia, Bleeding Lesions, Change in Hair, Change in Nails, Change in Pigmentation, Changing Lesions, Dry Skin, Erythema, Furuncle, Hirsutism, Lesions, New Lesions, Non-Healing Lesions, Photosensitivity, Pruritus, Rash, Skin Pain, Skin Ulcer, Sores, Striae, Swelling , Unusual Bruising, Wounds, Jaundice, Other - Neurological Neurological: Weakness Past Patient History - Infectious Disease Hx of Infectious Diseases: None - Tetanus Immunizations Tetanus Immunization: Unknown - Past Medical History & Family History Past Medical History?: Yes Past Family History: Reviewed and not pertinent - Past Social History Smoking Status: Never Smoked Chewing Tobacco Use: No Cigar Use: No Alcohol: None Drugs: Denies - CARDIAC Hx Congestive Heart Failure: Yes Hx Hypertension: Yes - PULMONARY Hx Chronic Obstructive Pulmonary Disease (COPD): Yes - NEUROLOGICAL Hx Neurological Disorder: No - HEENT Hx HEENT Problems: Yes Hx Cataracts: Yes Other/Comment: corneal replacement both eyes - RENAL Hx Chronic Kidney Disease: Yes Hx Kidney Stones: Yes - ENDOCRINE/METABOLIC Hx Diabetes Mellitus Type 2: Yes Hx Hypothyroidism: Yes - HEMATOLOGICAL/ONCOLOGICAL Hx Anemia: Yes - INTEGUMENTARY Hx Dermatological Problems: No - MUSCULOSKELETAL/RHEUMATOLOGICAL Hx Falls: No - GASTROINTESTINAL Hx Gastrointestinal Disorders: Yes Hx Constipation: Yes Hx Gastritis: Yes - GENITOURINARY/GYNECOLOGICAL Hx Genitourinary Disorders: No - PSYCHIATRIC Hx Substance Use: No - SURGICAL HISTORY Hx Surgeries: Yes Other/Comment: vascular stents - ANESTHESIA Hx Anesthesia: Yes Hx Anesthesia Reactions: No Meds Allergies/Adverse Reactions: Allergies Allergy/AdvReac Type Severity Reaction Status Date / Time No Known Allergies Allergy Verified 02/15/17 11:36 - Medications Medications: Current Medications Albuterol/Ipratropium (Duoneb 3 Mg/0.5 Mg (3 Ml) Ud) 3 ml INH RQ2 PRN PRN Reason: SOB Amlodipine Besylate (Norvasc) 10 mg PO DAILY [facility] Last Admin: 02/17/17 09:30 Dose: 10 mg Cilostazol (Pletal) 50 mg PO DAILY [facility] Last Admin: 02/17/17 09:29 Dose: 50 mg Emollient Ointment (Vaseline Oint) 5 gm TOP PRN PRN PRN Reason: Dry skin Enalapril Maleate (Vasotec) 20 mg PO DAILY [facility] Last Admin: 02/17/17 09:49 Dose: 20 mg Fenofibrate (Tricor) 48 mg PO DAILY [facility] Last Admin: 02/17/17 09:29 Dose: 48 mg Furosemide (Lasix) 20 mg IVP DAILY [facility] Home Med (Fosamax) 35 mg PO QWK [facility] Ceftriaxone Sodium 1 gm/ (Dextrose) 100 mls @ 50 mls/30 min IVPB Q24H [facility] Last Admin: 02/16/17 18:17 Dose: 50 mls/30 min Azithromycin 500 mg/ Sodium (Chloride) 250 mls @ 167 mls/hr IVPB Q24H [facility] Last Admin: 02/16/17 18:56 Dose: 167 mls/hr Insulin Glargine (Lantus) 15 unit SC [facility] Last Admin: 02/16/17 23:08 Dose: 15 units Insulin Human Regular (Novolin R) 0 unit SC [facility] PRN Reason: Protocol Last Admin: 02/17/17 12:47 Dose: 3 unit Levothyroxine Sodium (Synthroid) 100 mcg PO DAILY@0630 [facility] Last Admin: 02/17/17 08:39 Dose: 100 mcg Metoprolol Succinate (Toprol Xl) 25 mg PO DAILY [facility] Last Admin: 02/17/17 09:29 Dose: 25 mg Pantoprazole Sodium (Protonix Ec Tab) 40 mg PO DAILY [facility] Last Admin: 02/17/17 09:29 Dose: 40 mg Prasugrel (Effient) 10 mg PO DAILY [facility] Last Admin: 02/17/17 11:01 Dose: 10 mg Rosuvastatin Calcium (Crestor) 10 mg PO [facility] Last Admin: 02/16/17 23:09 Dose: 10 mg Physical Exam - Constitutional Appears: Non-toxic, Chronically Ill - Head Exam Head Exam: ATRAUMATIC, NORMAL INSPECTION - Eye Exam Eye Exam: EOMI, PERRL - Neck Exam Neck exam: Positive for: Normal Inspection. Negative for: Tenderness - Respiratory Exam Respiratory Exam: Rales, Wheezes - GI/Abdominal Exam GI & Abdominal Exam: Soft. absent: Tenderness - Extremities Exam Extremities exam: Positive for: normal inspection, tenderness - Skin Skin Exam: Dry, Warm Results - Vital Signs Recent Vital Signs: Last Vital Signs Temp 97.6 F 02/17/17 08:22 Pulse 82 02/17/17 13:34 Resp 20 02/17/17 08:22 BP 129/62 02/17/17 09:49 Pulse Ox 98 02/17/17 08:22 - Labs Result Diagrams: 02/17/17 11:29 02/17/17 11:29 Labs: Laboratory Results - last 24 hr 02/16/17 02/16/17 02/16/17 13:15 17:16 21:45 WBC RBC Hgb Hct MCV MCH MCHC RDW Plt Count MPV Neut % (Auto) Lymph % (Auto) [place] % (Auto) Eos % (Auto) Baso % (Auto) Neut # Lymph # [place] # Eos # Baso # Neutrophils % (Manual) Lymphocytes % (Manual) Monocytes % (Manual) Platelet Estimate Anisocytosis (manual) Sodium Potassium Chloride Carbon Dioxide Anion Gap BUN Creatinine Est GFR ( Amer) Est GFR (Non-Af Amer) POC Glucose (mg/dL) 97 274 H Random Glucose Calcium Phosphorus Magnesium Total Bilirubin AST ALT Alkaline Phosphatase Total Protein Albumin Globulin Albumin/Globulin Ratio Blood Type A POSITIVE Antibody Screen Positive Antibody Identification Anti P1 Elution Negative BRYAN, Poly Interpret Positive H 02/17/17 02/17/17 02/17/17 06:23 11:29 11:29 WBC 19.0 H RBC 2.65 L Hgb 8.3 L Hct 25.1 L MCV 94.9 MCH 31.3 H MCHC 33.0 RDW 17.9 H Plt Count 84 L MPV 10.2 Neut % (Auto) 75.0 Lymph % (Auto) 8.1 L [place] % (Auto) 16.8 H Eos % (Auto) 0.0 Baso % (Auto) 0.1 Neut # 14.3 H Lymph # 1.5 [place] # 3.2 H Eos # 0.0 Baso # 0.0 Neutrophils % (Manual) 71 Lymphocytes % (Manual) 12 L Monocytes % (Manual) 17 H Platelet Estimate Decreased L Anisocytosis (manual) Slight Sodium 133 Potassium 5.0 Chloride 97 L Carbon Dioxide 22 Anion Gap 20 BUN 86 H Creatinine 3.2 H Est GFR ( Amer) 17 Est GFR (Non-Af Amer) 14 POC Glucose (mg/dL) 104 Random Glucose 164 H Calcium 8.6 Phosphorus 6.3 H Magnesium 2.9 H Total Bilirubin 0.6 AST 23 ALT 26 Alkaline Phosphatase 41 Total Protein 8.3 Albumin 3.9 Globulin 4.4 H Albumin/Globulin Ratio 0.9 L Blood Type Antibody Screen Antibody Identification Elution BRYAN, Poly Interpret 02/17/17 11:34 WBC RBC Hgb Hct MCV MCH MCHC RDW Plt Count MPV Neut % (Auto) Lymph % (Auto) [place] % (Auto) Eos % (Auto) Baso % (Auto) Neut # Lymph # [place] # Eos # Baso # Neutrophils % (Manual) Lymphocytes % (Manual) Monocytes % (Manual) Platelet Estimate Anisocytosis (manual) Sodium Potassium Chloride Carbon Dioxide Anion Gap BUN Creatinine Est GFR ( Amer) Est GFR (Non-Af Amer) POC Glucose (mg/dL) 213 H Random Glucose Calcium Phosphorus Magnesium Total Bilirubin AST ALT Alkaline Phosphatase Total Protein Albumin Globulin Albumin/Globulin Ratio Blood Type Antibody Screen Antibody Identification Elution BRYAN, Poly Interpret Assessment & Plan (1) CHF (congestive heart failure) Status: Acute (2) Type 2 diabetes mellitus with diabetic nephropathy Status: Acute (3) HTN (hypertension) Status: Acute (4) Chronic anemia Status: Acute (5) LUCRECIA (acute kidney injury) Status: Acute (6) Chronic kidney disease, stage IV (severe) Status: Acute - Assessment and Plan (Free Text) Plan: PRASANNA I and IV lasix possible contributing to LUCRECIA Would recheck renal US Check serial chemistries Check proteinuria Stop PRASANNA I Lower lasix dose Avoid nephrotoxics
[2017-02-17] MEDS: Ferric Sodium Gluconat Complex 62.5 mg/5 ml Vial IVPB SCH (18:12)
[2017-02-17] MEDS: cefTRIAXone IV 1 gm in Dextros 1 GM in Dextrose 5% In Water 50 ML IVPB SCH (19:39)
[2017-02-17] MEDS: Azithromycin 500 MG in Sodium Chloride 0.9% 250 ML IVPB SCH (19:40)
[2017-02-17 20:31] LABS: RBC URINE 1 /hpf (0-3); URINE BILIRUBIN NEGATIVE (NEGATIVE); URINE BLOOD NEGATIVE (NEGATIVE); URINE COLOR Yellow (YELLOW); URINE GLUCOSE (UA) NORMAL (Normal); URINE HYALINE CAST 0-2 /lpf (0-2); URINE KETONE NEGATIVE (NEGATIVE); URINE LEUKOCYTE ESTERASE TRACE Leu/uL (Negative); URINE PROTEIN NEGATIVE (NEGATIVE); URINE UROBILINOGEN NORMAL mg/dL (0.2-1.0); WBC URINE 10 /hpf (0-5)
--- NOTE | 2017-02-17 20:39 | CP.PCM.PN ---
Subjective - Date & Time of Evaluation Date of Evaluation: 02/17/17 Time of Evaluation: 20:39 Objective - Vital Signs/Intake and Output Vital Signs (last 24 hours): Temp Pulse Resp BP Pulse Ox 97.9 F 76 20 116/54 L 100 02/17/17 16:47 02/17/17 16:47 02/17/17 16:47 02/17/17 16:47 02/17/17 16:47 - Medications Medications: Current Medications Albuterol/Ipratropium (Duoneb 3 Mg/0.5 Mg (3 Ml) Ud) 3 ml INH RQ2 PRN PRN Reason: SOB Amlodipine Besylate (Norvasc) 10 mg PO DAILY [facility] Last Admin: 02/17/17 09:30 Dose: 10 mg Cilostazol (Pletal) 50 mg PO DAILY [facility] Last Admin: 02/17/17 09:29 Dose: 50 mg Emollient Ointment (Vaseline Oint) 5 gm TOP PRN PRN PRN Reason: Dry skin Epoetin Brandon (Procrit) 10,000 unit SC [facility] Fenofibrate (Tricor) 48 mg PO DAILY [facility] Last Admin: 02/17/17 09:29 Dose: 48 mg Ferric Sodium Gluconate Complex (Ferrlecit) 125 mg IVPB DAILY [facility] Stop: 02/21/17 15:31 Last Admin: 02/17/17 18:12 Dose: 125 mg Furosemide (Lasix) 20 mg IVP DAILY [facility] Home Med (Fosamax) 35 mg PO QWK [facility] Ceftriaxone Sodium 1 gm/ (Dextrose) 100 mls @ 50 mls/30 min IVPB Q24H [facility] Last Admin: 02/17/17 19:39 Dose: 50 mls/30 min Azithromycin 500 mg/ Sodium (Chloride) 250 mls @ 167 mls/hr IVPB Q24H [facility] Last Admin: 02/17/17 19:40 Dose: 167 mls/hr Insulin Glargine (Lantus) 15 unit SC HS [facility] Last Admin: 02/16/17 23:08 Dose: 15 units Insulin Human Regular (Novolin R) 0 unit SC ACHS [facility] PRN Reason: Protocol Last Admin: 02/17/17 18:12 Dose: 3 unit Levothyroxine Sodium (Synthroid) 100 mcg PO DAILY@0630 [facility] Last Admin: 02/17/17 08:39 Dose: 100 mcg Metoprolol Succinate (Toprol Xl) 25 mg PO DAILY [facility] Last Admin: 02/17/17 09:29 Dose: 25 mg Pantoprazole Sodium (Protonix Ec Tab) 40 mg PO DAILY [facility] Last Admin: 02/17/17 09:29 Dose: 40 mg Prasugrel (Effient) 10 mg PO DAILY [facility] Last Admin: 02/17/17 11:01 Dose: 10 mg Rosuvastatin Calcium (Crestor) 10 mg PO [facility] Last Admin: 02/16/17 23:09 Dose: 10 mg - Labs Labs: 02/17/17 11:29 02/17/17 11:29 PT 14.1 SECONDS (9.7-12.2) H 02/15/17 12:13 INR 1.2 02/15/17 12:13 APTT 32 SECONDS (21-34) 02/15/17 12:13
[2017-02-17] MEDS: (Lantus) Insulin Glargine, Recombinant SC SCH (22:15)
[2017-02-18] MEDS: Levothyroxine 100 MCG TAB PO SCH (05:57)
[2017-02-18 07:34] LABS: BASO % 0.1 % (0.0-2.0); EOS % 0.1 % (0.0-4.0); HEMATOCRIT 23.4 % (34.0-47.0); LYMPH # 2.8 K/uL (1.0-4.3); LYMPH % 15.8 % (20.0-40.0); MEAN CELL VOLUME 95.5 fL (81.0-99.0); MEAN CORPUSCULAR HEMOGLOBIN 31.7 pg (27.0-31.0); MEAN CORPUSCULAR HGB CONC 33.2 g/dL (33.0-37.0); MEAN PLATELET VOLUME 10.2 fL (7.2-11.7); MONO # 4.4 K/uL (0.0-0.8); MONO % 24.7 % (0.0-10.0); PLATELET COUNT 75 K/uL (130-400); RED CELL DISTRIBUTION WIDTH 17.9 % (11.5-14.5); WHITE BLOOD COUNT 17.8 K/uL (4.8-10.8)
[2017-02-18 07:58] LABS: POTASSIUM 4.8 mmol/L (3.6-5.2)
[2017-02-18 08:00] LABS: ALB/GLOB RATIO 0.9 (1.0-2.1); BILIRUBIN,TOTAL 0.6 mg/dL (0.2-1.3); PHOSPHOROUS 6.2 mg/dL (2.5-4.5); TOTAL PROTEIN 7.7 g/dL (6.3-8.3)
[2017-02-18 08:01] LABS: CALCIUM 8.4 mg/dl (8.6-10.4); MAGNESIUM 2.9 mg/dL (1.6-2.3)
[2017-02-18] MEDS: (Novolin R) Insulin Human Regular 100 units/ml vial SC SCH ×4 (08:08→22:09)
--- NOTE | 2017-02-18 09:07 | CP.PCM.PN ---
Subjective - Date & Time of Evaluation Date of Evaluation: 02/18/17 Time of Evaluation: 09:05 - Subjective Subjective: Pt seen and examined No events overnight Objective - Vital Signs/Intake and Output Vital Signs (last 24 hours): Temp Pulse Resp BP Pulse Ox 98 F 70 20 113/50 L 96 02/18/17 04:10 02/18/17 05:26 02/18/17 04:10 02/18/17 04:10 02/18/17 04:10 Intake and Output: 02/18/17 02/18/17 06:59 18:59 Intake Total 838 Balance 838 - Medications Medications: Current Medications Albuterol/Ipratropium (Duoneb 3 Mg/0.5 Mg (3 Ml) Ud) 3 ml INH RQ2 PRN PRN Reason: SOB Amlodipine Besylate (Norvasc) 10 mg PO DAILY [facility] Last Admin: 02/17/17 09:30 Dose: 10 mg Cilostazol (Pletal) 50 mg PO DAILY [facility] Last Admin: 02/17/17 09:29 Dose: 50 mg Emollient Ointment (Vaseline Oint) 5 gm TOP PRN PRN PRN Reason: Dry skin Epoetin Brandon (Procrit) 10,000 unit SC MWF [facility] Fenofibrate (Tricor) 48 mg PO DAILY [facility] Last Admin: 02/17/17 09:29 Dose: 48 mg Ferric Sodium Gluconate Complex (Ferrlecit) 125 mg IVPB DAILY [facility] Stop: 02/21/17 15:31 Last Admin: 02/17/17 18:12 Dose: 125 mg Furosemide (Lasix) 20 mg IVP DAILY [facility] Home Med (Fosamax) 35 mg PO QWK [facility] Ceftriaxone Sodium 1 gm/ (Dextrose) 100 mls @ 50 mls/30 min IVPB Q24H [facility] Last Admin: 02/17/17 19:39 Dose: 50 mls/30 min Azithromycin 500 mg/ Sodium (Chloride) 250 mls @ 167 mls/hr IVPB Q24H [facility] Last Admin: 02/17/17 19:40 Dose: 167 mls/hr Insulin Glargine (Lantus) 15 unit SC HS [facility] Last Admin: 02/17/17 22:15 Dose: 15 units Insulin Human Regular (Novolin R) 0 unit SC ACHS [facility] PRN Reason: Protocol Last Admin: 02/18/17 08:08 Dose: Not Given Levothyroxine Sodium (Synthroid) 100 mcg PO DAILY@0630 [facility] Last Admin: 02/18/17 05:57 Dose: 100 mcg Metoprolol Succinate (Toprol Xl) 25 mg PO DAILY [facility] Last Admin: 02/17/17 09:29 Dose: 25 mg Pantoprazole Sodium (Protonix Ec Tab) 40 mg PO DAILY [facility] Last Admin: 02/17/17 09:29 Dose: 40 mg Prasugrel (Effient) 10 mg PO DAILY [facility] Last Admin: 02/17/17 11:01 Dose: 10 mg Rosuvastatin Calcium (Crestor) 10 mg PO HS [facility] Last Admin: 02/17/17 22:15 Dose: 10 mg - Labs Labs: 02/18/17 07:20 02/18/17 07:20 PT 14.1 SECONDS (9.7-12.2) H 02/15/17 12:13 INR 1.2 02/15/17 12:13 APTT 32 SECONDS (21-34) 02/15/17 12:13 - Head Exam Head Exam: NORMAL INSPECTION - Eye Exam Eye Exam: Normal appearance - ENT Exam ENT Exam: Mucous Membranes Moist - Respiratory Exam Respiratory Exam: Clear to Ausculation Bilateral - Cardiovascular Exam Cardiovascular Exam: REGULAR RHYTHM, +S1, +S2 - GI/Abdominal Exam GI & Abdominal Exam: Soft, Normal Bowel Sounds - Extremities Exam Extremities Exam: Normal Inspection Assessment and Plan - Assessment and Plan (Free Text) Assessment: Acute and Chronic respiratory insufficiency with hypoxemia LUCRECIA on CKD CHF exacerbation Pulmonary hypertension ENRIQUE Continue BiPAP as needed Monitor I's and O's Bronchodilators Supportive care DVT/GI prophylaxis
[2017-02-18] MEDS: Ferric Sodium Gluconat Complex 62.5 mg/5 ml Vial IVPB SCH (09:26)
[2017-02-18 09:27] LABS: NEUTROPHIL 68 % (50-75); TOTAL CELLS COUNTED 100
[2017-02-18] MEDS: Pantoprazole 40 mg EC Tab PO SCH (09:28)
[2017-02-18] MEDS: Metoprolol Succinate 25 mg XL Tab PO SCH (09:28)
[2017-02-18] MEDS: Cilostazol 50 mg Tab UD PO SCH (09:28)
--- NOTE | 2017-02-18 11:01 | CP.PCM.PN ---
Subjective - Date & Time of Evaluation Date of Evaluation: 02/18/17 Time of Evaluation: 10:30 - Subjective Subjective: Patient was seen and examined by me The family member was at bedside today. The patient reported breathing and sleeping with nasal canulla overnight - however she walked around in the hallway and then was short of breath and required the BiPAP back on We had a long discussion about the medical records from [facility] as well as her renal function. I also explained to them that the CXRAYs still show a lot of congestion as well, however we cut back on the lasix due to the renal function. She just had a renal ultrasound done, pending results We also discussed her anemia as well. She previously had PRBCs given. Objective - Vital Signs/Intake and Output Vital Signs (last 24 hours): Temp Pulse Resp BP Pulse Ox 98 F 70 20 126/83 96 02/18/17 04:10 02/18/17 05:26 02/18/17 04:10 02/18/17 09:27 02/18/17 04:10 Intake and Output: 02/18/17 02/18/17 06:59 18:59 Intake Total 838 Balance 838 - Medications Medications: Current Medications Albuterol/Ipratropium (Duoneb 3 Mg/0.5 Mg (3 Ml) Ud) 3 ml INH RQ2 PRN PRN Reason: SOB Amlodipine Besylate (Norvasc) 10 mg PO DAILY [facility] Last Admin: 02/18/17 09:28 Dose: 10 mg Cilostazol (Pletal) 50 mg PO DAILY [facility] Last Admin: 02/18/17 09:28 Dose: 50 mg Emollient Ointment (Vaseline Oint) 5 gm TOP PRN PRN PRN Reason: Dry skin Epoetin Brandon (Procrit) 10,000 unit SC F [facility] Fenofibrate (Tricor) 48 mg PO DAILY [facility] Last Admin: 02/18/17 09:28 Dose: 48 mg Ferric Sodium Gluconate Complex (Ferrlecit) 125 mg IVPB DAILY [facility] Stop: 02/21/17 15:31 Last Admin: 02/18/17 09:26 Dose: 125 mg Furosemide (Lasix) 20 mg IVP DAILY [facility] Last Admin: 02/18/17 09:27 Dose: 20 mg Home Med (Fosamax) 35 mg PO QWK [facility] Ceftriaxone Sodium 1 gm/ (Dextrose) 100 mls @ 50 mls/30 min IVPB Q24H [facility] Last Admin: 02/17/17 19:39 Dose: 50 mls/30 min Azithromycin 500 mg/ Sodium (Chloride) 250 mls @ 167 mls/hr IVPB Q24H [facility] Last Admin: 02/17/17 19:40 Dose: 167 mls/hr Insulin Glargine (Lantus) 15 unit SC [facility] Last Admin: 02/17/17 22:15 Dose: 15 units Insulin Human Regular (Novolin R) 0 unit SC [facility] PRN Reason: Protocol Last Admin: 02/18/17 08:08 Dose: Not Given Levothyroxine Sodium (Synthroid) 100 mcg PO DAILY@0630 [facility] Last Admin: 02/18/17 05:57 Dose: 100 mcg Metoprolol Succinate (Toprol Xl) 25 mg PO DAILY [facility] Last Admin: 02/18/17 09:28 Dose: 25 mg Pantoprazole Sodium (Protonix Ec Tab) 40 mg PO DAILY [facility] Last Admin: 02/18/17 09:28 Dose: 40 mg Prasugrel (Effient) 10 mg PO DAILY [facility] Last Admin: 02/18/17 09:28 Dose: 10 mg Rosuvastatin Calcium (Crestor) 10 mg PO [facility] Last Admin: 02/17/17 22:15 Dose: 10 mg - Labs Labs: 02/18/17 07:20 02/18/17 07:20 PT 14.1 SECONDS (9.7-12.2) H 02/15/17 12:13 INR 1.2 02/15/17 12:13 APTT 32 SECONDS (21-34) 02/15/17 12:13 - Constitutional Appears: Well, No Acute Distress - Head Exam Head Exam: NORMAL INSPECTION, NORMOCEPHALIC - Eye Exam Eye Exam: EOMI, Normal appearance - ENT Exam ENT Exam: Mucous Membranes Moist - Respiratory Exam Respiratory Exam: Rales, Rhonchi, NORMAL BREATHING PATTERN - Cardiovascular Exam Cardiovascular Exam: REGULAR RHYTHM - GI/Abdominal Exam GI & Abdominal Exam: Soft, Normal Bowel Sounds. absent: Distended, Firm, Guarding, Rigid, Tenderness - Neurological Exam Neurological Exam: Alert, Awake Neuro motor strength exam: Left Upper Extremity: 4, Right Upper Extremity: 4 - Psychiatric Exam Psychiatric exam: Depressed, Flat Affect - Skin Skin Exam: Normal Color, Warm Assessment and Plan - Assessment and Plan (Free Text) Assessment: CHF 02/18: Patient recent CXRAY still show signifigant congestion. Also CT scan of chest suggesting moderate effusions as well. She has been on lasix for diurese, however yesterday decreased dose due to renal function. Currently not on ACEI/ ARB due to renal function EKG showed NSR @ 76 bpm without acute changes. CXR 02/15/17 - showed no PE but with bilateral infiltrates per report. ABG WNL. Dr. Day and David consulted, help appreciated. Duoneb and BIPAP PRN. Lasix 40mg IV q12H - decreased to 20mg IV Q12 due to worsening Creatinine troponins - negative x3 CXR (02/16/17) - Moderate to severe venous congestion with prominent confluent consolidative changes at both lung bases with a moderate left and small right pleural effusion. Cardiomegaly. Bilateral hilar prominence. Degenerative changes in the spine and shoulders. Calcification at the aortic knob. Aortic calcifications. EKG - no change Chest CT w/o (02/16/17): Vascular pattern suggests CHF as discussed above. However, the main pulmonary artery is also dilated to 3.6 cm, greater in caliber than the thoracic aorta and the right ventricle and atrium appears somewhat prominent compared to the left heart. Consider pulmonary arterial hypertension. Contrast dating this possibility is of normal apparent size to the inferior vena cava. Further clinical correlation is advised. Mild bilateral pleural effusions is are compression atelectasis at the bilateral lower lobes with underlying pneumonia not completely excluded. 3 mm right apical noncalcified nodule for which follow-up chest is advised in 12 months is imaged to demonstrate stability. Lung rads 2 Pt has hx of pulmonary nodule from CT 2016, will consider CT later if symptoms not resolving. Continue bi-pap as needed Records from [facility]; ECHO : normal EF with diastolic dysfunction type 2, . Cardiac Cath 09/15/2016: Mid LAD 90% stenosis, KAREL placed. Prox CX, mid subsection 50% stenosis, LVEF 40%. LUCRECIA on CKD 02/18: Pending 24 hr urines studies, also just had renal ultrasound done. The worsening renal function likekly contributing to patient being short of breath and congestion seen on CXRAY as well Creatine today 3.2, baseline 1.8. Per pt daughter, pt has kidney stone and atrophy observed on ultrasound done at [facility]- nonobstructing 9mm stone right kidney Nephrology consult - Dr. Langston - help appreciated Continued on lasix 20mg IVP daily Anemia 02/18: Likely secondary to chronic kidney disease, there are orders for iron and Epogen Ferritin 93 last year. Current FOBT negative, s/p unremarkable EGD a month ago per daughter. Pt sees private heme/onc Dr. Avel Day outpatient, scheduled for biopsy 02/16. Heme/onc Dr. Blake consulted, help appreciated. reticulocyte 4.6 high Iron 52 TIBC 263 %sat 20 Ferritin 330 Vitamin B12 705 Folate 9.9 Thrombocytopenia Heme/onc Dr. Blake consulted, help appreciated. Hep A Ab postive Hep Bs antigen, core IgM Ab and Hep C Ab - negative DM RISS, accucheck. Continue home med Lantus 15 units HS. Withhold oral meds. A1c - 8.5 Hypothyroidism TSH 5.6 Continue home med Synthroid 100mcg PO ACB PAD Cardio Dr. Day consulted, help appreciated. Continue home med Pletal and Effient. Prophylactic measure Protonix, HepSQ. venous doppler - normal, no abnormal findings.
--- NOTE | 2017-02-18 11:15 | US ---
PROCEDURE: Ultrasound of the Kidneys HISTORY: zohra COMPARISON: None available. TECHNIQUE: Sonogram of the kidneys. FINDINGS: RIGHT KIDNEY: Measures: 9.3 x 4.4 x 4.6 cm. The right kidney is mildly echogenic. There is a small echogenic structure at the midpole of the right kidney likely represent vascular calcification. No evidence of obstructing stone or hydronephrosis. LEFT KIDNEY: Measures: 8.6 x 4.5 x 4.1 cm. The left kidney is also mildly echogenic. There is a focal echogenic structure at the midpole left kidney may represent vascular calcification versus nonobstructing stone measures 9.9 x 6.8 x 4.9 millimeter. No evidence of hydronephrosis. OTHER FINDINGS: Incidentally noted are bilateral pleural effusions. IMPRESSION: Mildly echogenic kidneys suggestive of medical renal disease. No evidence of hydronephrosis. Echogenic structures seen in both kidneys may represent vascular calcification versus less likely nonobstructing stone.
--- NOTE | 2017-02-18 12:34 | CP.PCM.PN ---
Subjective - Date & Time of Evaluation Date of Evaluation: 02/18/17 Time of Evaluation: 10:30 - Subjective Subjective: still sob with exertion daughter at side renal us neg for hydronephrosis no chest pain sob +, decreased exercise tolerance no urinary abnormalities no nausea no vomiting mild depression no edema no rash no headache Objective - Vital Signs/Intake and Output Vital Signs (last 24 hours): Temp Pulse Resp BP Pulse Ox 98 F 70 20 126/83 96 02/18/17 04:10 02/18/17 05:26 02/18/17 04:10 02/18/17 09:27 02/18/17 04:10 Intake and Output: 02/18/17 02/18/17 06:59 18:59 Intake Total 838 Balance 838 - Medications Medications: Current Medications Albuterol/Ipratropium (Duoneb 3 Mg/0.5 Mg (3 Ml) Ud) 3 ml INH RQ2 PRN PRN Reason: SOB Amlodipine Besylate (Norvasc) 10 mg PO DAILY [facility] Last Admin: 02/18/17 09:28 Dose: 10 mg Cilostazol (Pletal) 50 mg PO DAILY [facility] Last Admin: 02/18/17 09:28 Dose: 50 mg Emollient Ointment (Vaseline Oint) 5 gm TOP PRN PRN PRN Reason: Dry skin Epoetin Brandon (Procrit) 10,000 unit SC MWF [facility] Fenofibrate (Tricor) 48 mg PO DAILY [facility] Last Admin: 02/18/17 09:28 Dose: 48 mg Ferric Sodium Gluconate Complex (Ferrlecit) 125 mg IVPB DAILY [facility] Stop: 02/21/17 15:31 Last Admin: 02/18/17 09:26 Dose: 125 mg Furosemide (Lasix) 20 mg IVP DAILY [facility] Last Admin: 02/18/17 09:27 Dose: 20 mg Home Med (Fosamax) 35 mg PO QWK [facility] Azithromycin 500 mg/ Sodium (Chloride) 250 mls @ 167 mls/hr IVPB Q24H [facility] Last Admin: 02/17/17 19:40 Dose: 167 mls/hr Ceftriaxone Sodium (Rocephin Iv 1 Gm Duplex) 50 mls @ 50 mls/30 min IVPB Q24H [facility] Insulin Glargine (Lantus) 15 unit SC [facility] Last Admin: 02/17/17 22:15 Dose: 15 units Insulin Human Regular (Novolin R) 0 unit SC ACHS [facility] PRN Reason: Protocol Last Admin: 02/18/17 08:08 Dose: Not Given Levothyroxine Sodium (Synthroid) 100 mcg PO DAILY@0630 [facility] Last Admin: 02/18/17 05:57 Dose: 100 mcg Metoprolol Succinate (Toprol Xl) 25 mg PO DAILY [facility] Last Admin: 02/18/17 09:28 Dose: 25 mg Pantoprazole Sodium (Protonix Ec Tab) 40 mg PO DAILY [facility] Last Admin: 02/18/17 09:28 Dose: 40 mg Prasugrel (Effient) 10 mg PO DAILY [facility] Last Admin: 02/18/17 09:28 Dose: 10 mg Rosuvastatin Calcium (Crestor) 10 mg PO HS [facility] Last Admin: 02/17/17 22:15 Dose: 10 mg Sevelamer Carbonate (Renvela) 800 mg PO TIDCC [facility] - Labs Labs: 02/18/17 07:20 02/18/17 07:20 PT 14.1 SECONDS (9.7-12.2) H 02/15/17 12:13 INR 1.2 02/15/17 12:13 APTT 32 SECONDS (21-34) 02/15/17 12:13 - Constitutional Appears: No Acute Distress, Chronically Ill - Eye Exam Eye Exam: EOMI - ENT Exam ENT Exam: Mucous Membranes Moist - Neck Exam Neck Exam: Full ROM. absent: Lymphadenopathy - Respiratory Exam Respiratory Exam: Rales. absent: Accessory Muscle Use - Cardiovascular Exam Cardiovascular Exam: REGULAR RHYTHM. absent: Rubs - GI/Abdominal Exam GI & Abdominal Exam: Normal Bowel Sounds - Extremities Exam Extremities Exam: absent: Pedal Edema - Neurological Exam Neurological Exam: Alert, Oriented x3 Assessment and Plan - Assessment and Plan (Free Text) Assessment: ckd 6 with anemia and recurrent chf for diuresis pt had been scheduled for bone marrow biopsy, could get in house radha and iron to be given discussed with daughter at length regarding renal replacement therapy, they are interested in PD, would pursue if no improvement
[2017-02-18] MEDS: cefTRIAXone IV 1 gm in Dextros 50 ML IVPB SCH (19:18)
[2017-02-18] MEDS: Azithromycin 500 MG in Sodium Chloride 0.9% 250 ML IVPB SCH (20:17)
[2017-02-18] MEDS: (Lantus) Insulin Glargine, Recombinant SC SCH (22:05)
[2017-02-19] MEDS: Levothyroxine 100 MCG TAB PO SCH (06:04)
[2017-02-19] MEDS: (Novolin R) Insulin Human Regular 100 units/ml vial SC SCH ×4 (07:18→22:28)
[2017-02-19 07:27] LABS: BASO # 0.1 K/uL (0.0-0.2); BASO % 0.3 % (0.0-2.0); EOS # 0.1 K/uL (0.0-0.7); EOS % 0.4 % (0.0-4.0); HEMATOCRIT 24.5 % (34.0-47.0); LYMPH # 2.3 K/uL (1.0-4.3); MEAN CELL VOLUME 94.9 fL (81.0-99.0); MEAN CORPUSCULAR HEMOGLOBIN 31.1 pg (27.0-31.0); MEAN CORPUSCULAR HGB CONC 32.8 g/dL (33.0-37.0); MEAN PLATELET VOLUME 10.1 fL (7.2-11.7); MONO # 5.6 K/uL (0.0-0.8); MONO % 33.6 % (0.0-10.0); PLATELET COUNT 77 K/uL (130-400); RED CELL DISTRIBUTION WIDTH 17.7 % (11.5-14.5); WHITE BLOOD COUNT 16.7 K/uL (4.8-10.8)
[2017-02-19 08:03] LABS: ALB/GLOB RATIO 0.9 (1.0-2.1); BILIRUBIN,TOTAL 0.5 mg/dL (0.2-1.3); TOTAL PROTEIN 7.6 g/dL (6.3-8.3)
[2017-02-19 08:04] LABS: CALCIUM 8.2 mg/dl (8.6-10.4); MAGNESIUM 2.8 mg/dL (1.6-2.3); PHOSPHOROUS 6.6 mg/dL (2.5-4.5)
--- NOTE | 2017-02-19 08:29 | CP.PCM.PN ---
<Arsh Hurley - Last Filed: 02/19/17 08:26> Subjective - Date & Time of Evaluation Date of Evaluation: 02/19/17 Time of Evaluation: 08:26 - Subjective Subjective: PGY1 medicine Note for Dr. Reyes Patient seen and examined at bedside. Patient states that she feels her breathing is getting better. She has no complaints at this time. Objective - Vital Signs/Intake and Output Vital Signs (last 24 hours): Temp Pulse Resp BP Pulse Ox 97.0 F L 83 18 152/67 H 97 02/19/17 04:25 02/19/17 05:14 02/19/17 04:25 02/19/17 04:25 02/19/17 04:25 - Medications Medications: Current Medications Albuterol/Ipratropium (Duoneb 3 Mg/0.5 Mg (3 Ml) Ud) 3 ml INH RQ2 PRN PRN Reason: SOB Amlodipine Besylate (Norvasc) 10 mg PO DAILY [facility] Last Admin: 02/18/17 09:28 Dose: 10 mg Cilostazol (Pletal) 50 mg PO DAILY [facility] Last Admin: 02/18/17 09:28 Dose: 50 mg Emollient Ointment (Vaseline Oint) 5 gm TOP PRN PRN PRN Reason: Dry skin Epoetin Brandon (Procrit) 10,000 unit SC [facility] Fenofibrate (Tricor) 48 mg PO DAILY [facility] Last Admin: 02/18/17 09:28 Dose: 48 mg Ferric Sodium Gluconate Complex (Ferrlecit) 125 mg IVPB DAILY [facility] Stop: 02/21/17 15:31 Last Admin: 02/18/17 09:26 Dose: 125 mg Furosemide (Lasix) 20 mg IVP DAILY [facility] Last Admin: 02/18/17 09:27 Dose: 20 mg Home Med (Fosamax) 35 mg PO QWK [facility] Azithromycin 500 mg/ Sodium (Chloride) 250 mls @ 167 mls/hr IVPB Q24H [facility] Last Admin: 02/18/17 20:17 Dose: 167 mls/hr Ceftriaxone Sodium (Rocephin Iv 1 Gm Duplex) 50 mls @ 50 mls/30 min IVPB Q24H [facility] Last Admin: 02/18/17 19:18 Dose: 50 mls/30 min Insulin Glargine (Lantus) 15 unit SC [facility] Last Admin: 02/18/17 22:05 Dose: 15 units Insulin Human Regular (Novolin R) 0 unit SC [facility] PRN Reason: Protocol Last Admin: 02/19/17 07:18 Dose: Not Given Levothyroxine Sodium (Synthroid) 100 mcg PO DAILY@0630 [facility] Last Admin: 02/19/17 06:04 Dose: 100 mcg Metoprolol Succinate (Toprol Xl) 25 mg PO DAILY [facility] Last Admin: 02/18/17 09:28 Dose: 25 mg Pantoprazole Sodium (Protonix Ec Tab) 40 mg PO DAILY [facility] Last Admin: 02/18/17 09:28 Dose: 40 mg Prasugrel (Effient) 10 mg PO DAILY [facility] Last Admin: 02/18/17 09:28 Dose: 10 mg Rosuvastatin Calcium (Crestor) 10 mg PO HS [facility] Last Admin: 02/18/17 22:04 Dose: 10 mg Sevelamer Carbonate (Renvela) 800 mg PO TIDCC [facility] Last Admin: 02/18/17 18:39 Dose: 800 mg - Labs Labs: 02/19/17 07:15 02/19/17 07:15 PT 14.1 SECONDS (9.7-12.2) H 02/15/17 12:13 INR 1.2 02/15/17 12:13 APTT 32 SECONDS (21-34) 02/15/17 12:13 - Constitutional Appears: Well, No Acute Distress - Eye Exam Eye Exam: EOMI, Normal appearance - ENT Exam ENT Exam: Mucous Membranes Moist - Respiratory Exam Respiratory Exam: Rales, Rhonchi, NORMAL BREATHING PATTERN - Cardiovascular Exam Cardiovascular Exam: REGULAR RHYTHM - GI/Abdominal Exam GI & Abdominal Exam: Soft, Normal Bowel Sounds. absent: Distended, Firm, Guarding, Rigid, Tenderness - Neurological Exam Neurological Exam: Alert, Awake, Oriented x3 Neuro motor strength exam: Left Upper Extremity: 4, Right Upper Extremity: 4 - Psychiatric Exam Psychiatric exam: Depressed, Flat Affect - Skin Skin Exam: Dry, Normal Color, Warm Assessment and Plan - Assessment and Plan (Free Text) Plan: CHF 02/18: Patient recent CXRAY still show signifigant congestion. Also CT scan of chest suggesting moderate effusions as well. She has been on lasix for diurese, however yesterday decreased dose due to renal function. Currently not on ACEI/ ARB due to renal function EKG showed NSR @ 76 bpm without acute changes. CXR 02/15/17 - showed no PE but with bilateral infiltrates per report. ABG WNL. Dr. Day and David consulted, help appreciated. Duoneb and BIPAP PRN. Lasix 40mg IV q12H - decreased to 20mg IV Q12 due to worsening Creatinine troponins - negative x3 CXR (02/16/17) - Moderate to severe venous congestion with prominent confluent consolidative changes at both lung bases with a moderate left and small right pleural effusion. Cardiomegaly. Bilateral hilar prominence. Degenerative changes in the spine and shoulders. Calcification at the aortic knob. Aortic calcifications. EKG - no change Chest CT w/o (02/16/17): Vascular pattern suggests CHF as discussed above. However, the main pulmonary artery is also dilated to 3.6 cm, greater in caliber than the thoracic aorta and the right ventricle and atrium appears somewhat prominent compared to the left heart. Consider pulmonary arterial hypertension. Contrast dating this possibility is of normal apparent size to the inferior vena cava. Further clinical correlation is advised. Mild bilateral pleural effusions is are compression atelectasis at the bilateral lower lobes with underlying pneumonia not completely excluded. 3 mm right apical noncalcified nodule for which follow-up chest is advised in 12 months is imaged to demonstrate stability. Lung rads 2 Pt has hx of pulmonary nodule from CT 2016, will consider CT later if symptoms not resolving. Continue bi-pap as needed Records from [facility] [place]; ECHO : normal EF with diastolic dysfunction type 2, . Cardiac Cath 09/15/2016: Mid LAD 90% stenosis, KAREL placed. Prox CX, mid subsection 50% stenosis, LVEF 40%. LUCRECIA on CKD 02/18: Pending 24 hr urines studies, also just had renal ultrasound done. The worsening renal function likekly contributing to patient being short of breath and congestion seen on CXRAY as well Creatine today 3.2, baseline 1.8. Per pt daughter, pt has kidney stone and atrophy observed on ultrasound done at [facility] [place]- nonobstructing 9mm stone right kidney Nephrology consult - Dr. Langston - help appreciated Continued on lasix 20mg IVP daily Anemia 02/18: Likely secondary to chronic kidney disease, there are orders for iron and Epogen Ferritin 93 last year. Current FOBT negative, s/p unremarkable EGD a month ago per daughter. Pt sees private heme/onc Dr. Avel Day outpatient, scheduled for biopsy 02/16. Heme/onc Dr. Blake consulted, help appreciated. reticulocyte 4.6 high Iron 52 TIBC 263 %sat 20 Ferritin 330 Vitamin B12 705 Folate 9.9 Thrombocytopenia Heme/onc Dr. Blake consulted, help appreciated. Hep A Ab postive Hep Bs antigen, core IgM Ab and Hep C Ab - negative DM RISS, accucheck. Continue home med Lantus 15 units HS. Withhold oral meds. A1c - 8.5 Hypothyroidism TSH 5.6 Continue home med Synthroid 100mcg PO ACB PAD Cardio Dr. Day consulted, help appreciated. Continue home med Pletal and Effient. Prophylactic measure Protonix, HepSQ. venous doppler - normal, no abnormal findings. Will discuss case with Dr. Amy Hurley PGY1 <Reji Reyes - Last Filed: 02/19/17 09:08> Objective - Vital Signs/Intake and Output Vital Signs (last 24 hours): Temp Pulse Resp BP Pulse Ox 97.0 F L 83 18 152/67 H 97 02/19/17 04:25 02/19/17 05:14 02/19/17 04:25 02/19/17 04:25 02/19/17 04:25 - Medications Medications: Current Medications Albuterol/Ipratropium (Duoneb 3 Mg/0.5 Mg (3 Ml) Ud) 3 ml INH RQ2 PRN PRN Reason: SOB Amlodipine Besylate (Norvasc) 10 mg PO DAILY [facility] Last Admin: 02/18/17 09:28 Dose: 10 mg Cilostazol (Pletal) 50 mg PO DAILY [facility] Last Admin: 02/18/17 09:28 Dose: 50 mg Emollient Ointment (Vaseline Oint) 5 gm TOP PRN PRN PRN Reason: Dry skin Epoetin Brandon (Procrit) 10,000 unit SC F [facility] Fenofibrate (Tricor) 48 mg PO DAILY [facility] Last Admin: 02/18/17 09:28 Dose: 48 mg Ferric Sodium Gluconate Complex (Ferrlecit) 125 mg IVPB DAILY [facility] Stop: 02/21/17 15:31 Last Admin: 02/18/17 09:26 Dose: 125 mg Furosemide (Lasix) 20 mg IVP DAILY [facility] Last Admin: 02/18/17 09:27 Dose: 20 mg Home Med (Fosamax) 35 mg PO QWK [facility] Azithromycin 500 mg/ Sodium (Chloride) 250 mls @ 167 mls/hr IVPB Q24H [facility] Last Admin: 02/18/17 20:17 Dose: 167 mls/hr Ceftriaxone Sodium (Rocephin Iv 1 Gm Duplex) 50 mls @ 50 mls/30 min IVPB Q24H [facility] Last Admin: 02/18/17 19:18 Dose: 50 mls/30 min Insulin Glargine (Lantus) 15 unit SC [facility] Last Admin: 02/18/17 22:05 Dose: 15 units Insulin Human Regular (Novolin R) 0 unit SC [facility] PRN Reason: Protocol Last Admin: 02/19/17 07:18 Dose: Not Given Levothyroxine Sodium (Synthroid) 100 mcg PO DAILY@0630 [facility] Last Admin: 02/19/17 06:04 Dose: 100 mcg Metoprolol Succinate (Toprol Xl) 25 mg PO DAILY [facility] Last Admin: 02/18/17 09:28 Dose: 25 mg Pantoprazole Sodium (Protonix Ec Tab) 40 mg PO DAILY [facility] Last Admin: 02/18/17 09:28 Dose: 40 mg Prasugrel (Effient) 10 mg PO DAILY [facility] Last Admin: 02/18/17 09:28 Dose: 10 mg Rosuvastatin Calcium (Crestor) 10 mg PO HS [facility] Last Admin: 02/18/17 22:04 Dose: 10 mg Sevelamer Carbonate (Renvela) 800 mg PO TIDCC [facility] Last Admin: 02/18/17 18:39 Dose: 800 mg - Labs Labs: 02/19/17 07:15 02/19/17 07:15 PT 14.1 SECONDS (9.7-12.2) H 02/15/17 12:13 INR 1.2 02/15/17 12:13 APTT 32 SECONDS (21-34) 02/15/17 12:13 Attending/Attestation - Attestation I have personally seen and examined this patient.: Yes I have fully participated in the care of the patient.: Yes I have reviewed all pertinent clinical information, including history, physical exam and plan: Yes Notes (Text): 02/19/17 09:08 Patient feels that her breathing has improved since being here. Not on Bipap when I saw her. She still has shortness of breath with exertion she says but feels comfortable at rest. She denied having chest pain or abdominal pain Overnight the blood sugar decreased to 57, she reported she had some snacks and felt ok afterwards. On lab work her creatine is 3.5 today. Patient states she is producing a lot of urine. Renal ultrasound shows no hydronephrosis and no obstructing stone. Today will get a CXRAY 02/19/17 09:08
[2017-02-19] MEDS: Ferric Sodium Gluconat Complex 62.5 mg/5 ml Vial IVPB SCH (09:55)
[2017-02-19] MEDS: Metoprolol Succinate 25 mg XL Tab PO SCH (09:56)
[2017-02-19] MEDS: Cilostazol 50 mg Tab UD PO SCH (09:56)
[2017-02-19] MEDS: Pantoprazole 40 mg EC Tab PO SCH (09:56)
[2017-02-19 11:16] LABS: NEUTROPHIL 49 % (50-75); TOTAL CELLS COUNTED 100
--- NOTE | 2017-02-19 12:49 | RAD ---
HISTORY: Congestive heart failure, follow-up COMPARISON: 02/17/2017 TECHNIQUE: Chest PA and lateral FINDINGS: LUNGS: Modest interval improvement in pulmonary edema. PLEURA: Stable bilateral pleural effusions left larger than right. CARDIOVASCULAR: Stable cardiomegaly OSSEOUS STRUCTURES: No significant abnormalities. VISUALIZED UPPER ABDOMEN: Normal. OTHER FINDINGS: None. IMPRESSION: Improving congestive heart failure/ pulmonary edema.
[2017-02-19] MEDS: cefTRIAXone IV 1 gm in Dextros 50 ML IVPB SCH (18:11)
--- NOTE | 2017-02-19 18:16 | CP.PCM.PN ---
Subjective - Date & Time of Evaluation Date of Evaluation: 02/19/17 Time of Evaluation: 18:16 Objective - Vital Signs/Intake and Output Vital Signs (last 24 hours): Temp Pulse Resp BP Pulse Ox 98.1 F 70 20 127/64 94 L 02/19/17 15:21 02/19/17 15:21 02/19/17 15:21 02/19/17 15:21 02/19/17 15:21 Intake and Output: 02/19/17 02/19/17 06:59 18:59 Intake Total 480 Balance 480 - Medications Medications: Current Medications Albuterol/Ipratropium (Duoneb 3 Mg/0.5 Mg (3 Ml) Ud) 3 ml INH RQ2 PRN PRN Reason: SOB Amlodipine Besylate (Norvasc) 10 mg PO DAILY [facility] Last Admin: 02/19/17 09:57 Dose: 10 mg Cilostazol (Pletal) 50 mg PO DAILY [facility] Last Admin: 02/19/17 09:56 Dose: 50 mg Emollient Ointment (Vaseline Oint) 5 gm TOP PRN PRN PRN Reason: Dry skin Epoetin Brandon (Procrit) 10,000 unit SC MWF [facility] Fenofibrate (Tricor) 48 mg PO DAILY [facility] Last Admin: 02/19/17 09:56 Dose: 48 mg Ferric Sodium Gluconate Complex (Ferrlecit) 125 mg IVPB DAILY [facility] Stop: 02/21/17 15:31 Last Admin: 02/19/17 09:55 Dose: 125 mg Furosemide (Lasix) 20 mg IVP DAILY [facility] Last Admin: 02/19/17 09:55 Dose: 20 mg Home Med (Fosamax) 35 mg PO QWK [facility] Azithromycin 500 mg/ Sodium (Chloride) 250 mls @ 167 mls/hr IVPB Q24H [facility] Last Admin: 02/18/17 20:17 Dose: 167 mls/hr Ceftriaxone Sodium (Rocephin Iv 1 Gm Duplex) 50 mls @ 50 mls/30 min IVPB Q24H [facility] Last Admin: 02/19/17 18:11 Dose: 50 mls/30 min Insulin Glargine (Lantus) 15 unit SC HS [facility] Last Admin: 02/18/17 22:05 Dose: 15 units Insulin Human Regular (Novolin R) 0 unit SC ACHS [facility] PRN Reason: Protocol Last Admin: 02/19/17 18:02 Dose: Not Given Levothyroxine Sodium (Synthroid) 100 mcg PO DAILY@0630 [facility] Last Admin: 02/19/17 06:04 Dose: 100 mcg Metoprolol Succinate (Toprol Xl) 25 mg PO DAILY [facility] Last Admin: 02/19/17 09:56 Dose: 25 mg Pantoprazole Sodium (Protonix Ec Tab) 40 mg PO DAILY [facility] Last Admin: 02/19/17 09:56 Dose: 40 mg Prasugrel (Effient) 10 mg PO DAILY [facility] Last Admin: 02/19/17 09:56 Dose: 10 mg Rosuvastatin Calcium (Crestor) 10 mg PO HS [facility] Last Admin: 02/18/17 22:04 Dose: 10 mg Sevelamer Carbonate (Renvela) 800 mg PO TIDCC [facility] Last Admin: 02/19/17 18:03 Dose: 800 mg - Labs Labs: 02/19/17 07:15 02/19/17 07:15 PT 14.1 SECONDS (9.7-12.2) H 02/15/17 12:13 INR 1.2 02/15/17 12:13 APTT 32 SECONDS (21-34) 02/15/17 12:13
[2017-02-19] MEDS: Azithromycin 500 MG in Sodium Chloride 0.9% 250 ML IVPB SCH (18:54)
[2017-02-19] MEDS: (Lantus) Insulin Glargine, Recombinant SC SCH (22:30)
[2017-02-20] MEDS: Levothyroxine 100 MCG TAB PO SCH (06:23)
--- NOTE | 2017-02-20 07:38 | CP.PCM.PN ---
<Arsh Hurley - Last Filed: 02/20/17 20:09> Subjective - Date & Time of Evaluation Date of Evaluation: 02/20/17 Time of Evaluation: 07:38 - Subjective Subjective: PGY1 Medicine Note for Dr. Montes Patient seen and examined this morning at bedside. Patient was sitting upright in the chair wearing nasal cannula oxygen talking with her two daughters. Patient states her breathing is much improved. She is able to converse without becoming short of breath. Denies any complaints at this time. Objective - Vital Signs/Intake and Output Vital Signs (last 24 hours): Temp Pulse Resp BP Pulse Ox 97.9 F 76 20 132/53 L 99 02/19/17 23:45 02/20/17 01:02 02/19/17 23:45 02/19/17 23:45 02/19/17 23:45 - Medications Medications: Current Medications Albuterol/Ipratropium (Duoneb 3 Mg/0.5 Mg (3 Ml) Ud) 3 ml INH RQ2 PRN PRN Reason: SOB Amlodipine Besylate (Norvasc) 10 mg PO DAILY [facility] Last Admin: 02/19/17 09:57 Dose: 10 mg Cilostazol (Pletal) 50 mg PO DAILY [facility] Last Admin: 02/19/17 09:56 Dose: 50 mg Emollient Ointment (Vaseline Oint) 5 gm TOP PRN PRN PRN Reason: Dry skin Epoetin Brandon (Procrit) 10,000 unit SC MWF [facility] Fenofibrate (Tricor) 48 mg PO DAILY [facility] Last Admin: 02/19/17 09:56 Dose: 48 mg Ferric Sodium Gluconate Complex (Ferrlecit) 125 mg IVPB DAILY [facility] Stop: 02/21/17 15:31 Last Admin: 02/19/17 09:55 Dose: 125 mg Furosemide (Lasix) 20 mg IVP DAILY [facility] Last Admin: 02/19/17 09:55 Dose: 20 mg Home Med (Fosamax) 35 mg PO QWK [facility] Azithromycin 500 mg/ Sodium (Chloride) 250 mls @ 167 mls/hr IVPB Q24H [facility] Last Admin: 02/19/17 18:54 Dose: 167 mls/hr Ceftriaxone Sodium (Rocephin Iv 1 Gm Duplex) 50 mls @ 50 mls/30 min IVPB Q24H [facility] Last Admin: 02/19/17 18:11 Dose: 50 mls/30 min Insulin Glargine (Lantus) 15 unit SC [facility] Last Admin: 02/19/17 22:30 Dose: Not Given Insulin Human Regular (Novolin R) 0 unit SC [facility] PRN Reason: Protocol Last Admin: 02/19/17 22:28 Dose: Not Given Levothyroxine Sodium (Synthroid) 100 mcg PO DAILY@0630 [facility] Last Admin: 02/20/17 06:23 Dose: 100 mcg Metoprolol Succinate (Toprol Xl) 25 mg PO DAILY [facility] Last Admin: 02/19/17 09:56 Dose: 25 mg Pantoprazole Sodium (Protonix Ec Tab) 40 mg PO DAILY [facility] Last Admin: 02/19/17 09:56 Dose: 40 mg Prasugrel (Effient) 10 mg PO DAILY [facility] Last Admin: 02/19/17 09:56 Dose: 10 mg Rosuvastatin Calcium (Crestor) 10 mg PO [facility] Last Admin: 02/19/17 22:29 Dose: 10 mg Sevelamer Carbonate (Renvela) 800 mg PO TIDCC [facility] Last Admin: 02/19/17 18:03 Dose: 800 mg - Labs Labs: 02/19/17 07:15 02/19/17 07:15 PT 14.1 SECONDS (9.7-12.2) H 02/15/17 12:13 INR 1.2 02/15/17 12:13 APTT 32 SECONDS (21-34) 02/15/17 12:13 - Constitutional Appears: Non-toxic, No Acute Distress - Head Exam Head Exam: ATRAUMATIC, NORMOCEPHALIC - Eye Exam Eye Exam: EOMI, Normal appearance - ENT Exam ENT Exam: Mucous Membranes Moist - Respiratory Exam Respiratory Exam: Clear to Ausculation Bilateral, NORMAL BREATHING PATTERN. absent: Accessory Muscle Use, Chest Wall Tenderness, Respiratory Distress - Cardiovascular Exam Cardiovascular Exam: REGULAR RHYTHM, +S1, +S2 - GI/Abdominal Exam GI & Abdominal Exam: Soft, Normal Bowel Sounds. absent: Distended, Firm, Guarding, Rigid, Tenderness - Back Exam Back Exam: NORMAL INSPECTION. absent: paraspinal tenderness, vertebral tenderness - Neurological Exam Neurological Exam: Alert, Awake, Oriented x3 - Psychiatric Exam Psychiatric exam: Normal Affect, Normal Mood - Skin Skin Exam: Dry, Normal Color, Warm Assessment and Plan - Assessment and Plan (Free Text) Assessment: Bandemia 02/20: WBC 17.3, 11% bands; 18% bands on 02/19 Infectious Disease Consult, Dr. Rodriguez Blood cultures are negative at 4 days Ceftriaxone 1gm IVPO Q24H Azithromycin 500mg IVPB Q24H f/u lactate, procalcitonin CHF CXR 02/19: Improving congestive heart failure/ pulmonary edema. 02/18: Patient recent CXRAY still show signifigant congestion. Also CT scan of chest suggesting moderate effusions as well. She has been on lasix for diurese, however yesterday decreased dose due to renal function. Currently not on ACEI/ ARB due to renal function EKG showed NSR @ 76 bpm without acute changes. CXR 02/15/17 - showed no PE but with bilateral infiltrates per report. ABG WNL. Dr. Day and David consulted, help appreciated. Duoneb and BIPAP PRN. Lasix 40mg IV q12H - decreased to 20mg IV Q12 due to worsening Creatinine troponins - negative x3 CXR (02/16/17) - Moderate to severe venous congestion with prominent confluent consolidative changes at both lung bases with a moderate left and small right pleural effusion. Cardiomegaly. Bilateral hilar prominence. Degenerative changes in the spine and shoulders. Calcification at the aortic knob. Aortic calcifications. EKG - no change Chest CT w/o (02/16/17): Vascular pattern suggests CHF as discussed above. However, the main pulmonary artery is also dilated to 3.6 cm, greater in caliber than the thoracic aorta and the right ventricle and atrium appears somewhat prominent compared to the left heart. Consider pulmonary arterial hypertension. Contrast dating this possibility is of normal apparent size to the inferior vena cava. Further clinical correlation is advised. Mild bilateral pleural effusions is are compression atelectasis at the bilateral lower lobes with underlying pneumonia not completely excluded. 3 mm right apical noncalcified nodule for which follow-up chest is advised in 12 months is imaged to demonstrate stability. Lung rads 2 Pt has hx of pulmonary nodule from CT 2016, will consider CT later if symptoms not resolving. Continue bi-pap as needed Records from [facility]; ECHO : normal EF with diastolic dysfunction type 2, . Cardiac Cath 09/15/2016: Mid LAD 90% stenosis, KAREL placed. Prox CX, mid subsection 50% stenosis, LVEF 40%. LUCRECIA on CKD 02/18: Pending 24 hr urines studies, also just had renal ultrasound done. The worsening renal function likekly contributing to patient being short of breath and congestion seen on CXRAY as well Creatine today 3.2, baseline 1.8. Per pt daughter, pt has kidney stone and atrophy observed on ultrasound done at [facility]- nonobstructing 9mm stone right kidney Nephrology consult - Dr. Langston - help appreciated Continued on lasix 20mg IVP daily Per Dr. Mejia note, patient interested in PD if kidney function does not improve. Patient is still making urine. Anemia 02/18: Likely secondary to chronic kidney disease, there are orders for iron and Epogen Ferritin 93 last year. Current FOBT negative, s/p unremarkable EGD a month ago per daughter. Pt sees private heme/onc Dr. Avel Day outpatient, scheduled for biopsy 02/16. Heme/onc Dr. Blake consulted, help appreciated. reticulocyte 4.6 high Iron 52 TIBC 263 %sat 20 Ferritin 330 Vitamin B12 705 Folate 9.9 Stopped IV ferrous, started on Ferrous Sulfate 325mg PO daily Thrombocytopenia Heme/onc Dr. Blake consulted, help appreciated. Hep A Ab postive Hep Bs antigen, core IgM Ab and Hep C Ab - negative DM RISS, accucheck. Continue home med Lantus 15 units HS. Withhold oral meds. A1c - 8.5 Hypothyroidism TSH 5.6 Continue home med Synthroid 100mcg PO ACB PAD Cardio Dr. Day consulted, help appreciated. Continue home med Pletal and Effient. Prophylactic measure Protonix, HepSQ. venous doppler - normal, no abnormal findings. Will discuss case with Dr. Amy Hurley PGY1 <Jose Montes - Last Filed: 02/22/17 16:46> Objective - Vital Signs/Intake and Output Vital Signs (last 24 hours): Temp Pulse Resp BP Pulse Ox 98.5 F 94 H 20 151/68 H 94 L 02/22/17 15:57 02/22/17 15:57 02/22/17 15:57 02/22/17 15:57 02/22/17 15:57 Intake and Output: 02/22/17 02/22/17 06:59 18:59 Intake Total 1654 600 Balance 165 600 - Medications Medications: Current Medications Acetaminophen (Tylenol 325mg Tab) 650 mg PO Q6 PRN PRN Reason: headache Last Admin: 02/22/17 01:37 Dose: 650 mg Albuterol/Ipratropium (Duoneb 3 Mg/0.5 Mg (3 Ml) Ud) 3 ml INH RBID [facility] Last Admin: 02/22/17 07:30 Dose: 3 ml Amlodipine Besylate (Norvasc) 10 mg PO DAILY [facility] Last Admin: 02/22/17 09:19 Dose: 10 mg Cilostazol (Pletal) 50 mg PO DAILY [facility] Last Admin: 02/22/17 09:20 Dose: 50 mg Emollient Ointment (Vaseline Oint) 5 gm TOP PRN PRN PRN Reason: Dry skin Epoetin Brandon (Procrit) 10,000 unit SC MWF [facility] Last Admin: 02/22/17 08:56 Dose: 10,000 unit Fenofibrate (Tricor) 48 mg PO DAILY [facility] Last Admin: 02/22/17 09:20 Dose: 48 mg Ferrous Sulfate (Feosol) 325 mg PO DAILY@1200 [facility] Furosemide (Lasix) 40 mg IVP DAILY [facility] Last Admin: 02/22/17 11:02 Dose: 40 mg Home Med (Patient's Own Medication) 1 tab PO QWK [facility] Azithromycin 500 mg/ Sodium (Chloride) 250 mls @ 167 mls/hr IVPB Q24H [facility] Last Admin: 02/21/17 20:05 Dose: Not Given Ceftriaxone Sodium (Rocephin Iv 1 Gm Duplex) 50 mls @ 50 mls/30 min IVPB Q24H [facility] Last Admin: 02/21/17 19:45 Dose: Not Given Insulin Glargine (Lantus) 15 unit SC HS [facility] Last Admin: 02/21/17 22:10 Dose: 15 units Insulin Human Regular (Novolin R) 0 unit SC ACHS [facility] PRN Reason: Protocol Last Admin: 02/22/17 12:25 Dose: Not Given Levothyroxine Sodium (Synthroid) 100 mcg PO DAILY@0630 [facility] Last Admin: 02/22/17 06:15 Dose: 100 mcg Metoprolol Succinate (Toprol Xl) 25 mg PO DAILY [facility] Last Admin: 02/22/17 09:20 Dose: 25 mg Metronidazole (Flagyl) 500 mg PO Q8 [facility] Last Admin: 02/22/17 13:16 Dose: 500 mg Pantoprazole Sodium (Protonix Ec Tab) 40 mg PO DAILY [facility] Last Admin: 02/22/17 09:19 Dose: 40 mg Prasugrel (Effient) 10 mg PO DAILY [facility] Last Admin: 02/22/17 09:20 Dose: 10 mg Rosuvastatin Calcium (Crestor) 10 mg PO HS [facility] Last Admin: 02/21/17 22:09 Dose: 10 mg Sevelamer Carbonate (Renvela) 800 mg PO TIDCC [facility] Last Admin: 02/22/17 11:02 Dose: 800 mg - Labs Labs: 02/22/17 08:21 02/22/17 08:21 PT 14.1 SECONDS (9.7-12.2) H 02/15/17 12:13 INR 1.2 02/15/17 12:13 APTT 32 SECONDS (21-34) 02/15/17 12:13 Attending/Attestation - Attestation I have personally seen and examined this patient.: Yes I have fully participated in the care of the patient.: Yes I have reviewed all pertinent clinical information, including history, physical exam and plan: Yes Notes (Text): Bandemia CHF acute on chronic diastolic LUCRECIA on CKD Anemia Thrombocytopenia DM Hypothyroidism
[2017-02-20] MEDS: (Novolin R) Insulin Human Regular 100 units/ml vial SC SCH ×5 (08:15→22:09)
[2017-02-20 08:20] LABS: BASO % 0.3 % (0.0-2.0); EOS # 0.1 K/uL (0.0-0.7); EOS % 0.5 % (0.0-4.0); HEMATOCRIT 22.9 % (34.0-47.0); LYMPH # 3.4 K/uL (1.0-4.3); LYMPH % 19.9 % (20.0-40.0); MEAN CELL VOLUME 94.8 fL (81.0-99.0); MEAN CORPUSCULAR HEMOGLOBIN 31.6 pg (27.0-31.0); MEAN CORPUSCULAR HGB CONC 33.3 g/dL (33.0-37.0); MONO # 5.2 K/uL (0.0-0.8); MONO % 30.1 % (0.0-10.0); NRBC % 0.1 % (0.0-2.0); PLATELET COUNT 72 K/uL (130-400); RED CELL DISTRIBUTION WIDTH 17.5 % (11.5-14.5); WHITE BLOOD COUNT 17.3 K/uL (4.8-10.8)
[2017-02-20] MEDS: EPOETIN ALFA 10,000 UNIT/ML ML SC SCH (08:35)
[2017-02-20 08:57] LABS: BILIRUBIN,TOTAL 0.6 mg/dL (0.2-1.3)
[2017-02-20 08:58] LABS: ALB/GLOB RATIO 0.9 (1.0-2.1); CALCIUM 8.2 mg/dl (8.6-10.4); MAGNESIUM 2.7 mg/dL (1.6-2.3); PHOSPHOROUS 4.8 mg/dL (2.5-4.5); TOTAL PROTEIN 7.4 g/dL (6.3-8.3)
[2017-02-20] MEDS: Pantoprazole 40 mg EC Tab PO SCH (09:14)
[2017-02-20] MEDS: Ferric Sodium Gluconat Complex 62.5 mg/5 ml Vial IVPB SCH (09:15)
[2017-02-20] MEDS: Cilostazol 50 mg Tab UD PO SCH (09:16)
[2017-02-20] MEDS: Metoprolol Succinate 25 mg XL Tab PO SCH (09:16)
[2017-02-20 09:42] LABS: NEUTROPHIL 41 % (50-75); TOTAL CELLS COUNTED 100
--- NOTE | 2017-02-20 13:18 | CP.PCM.PN ---
Subjective - Date & Time of Evaluation Date of Evaluation: 02/20/17 Time of Evaluation: 13:15 - Subjective Subjective: Still SOB but better UO not recorded creat 3.6- same renal US- echogenic kidneys Objective - Vital Signs/Intake and Output Vital Signs (last 24 hours): Temp Pulse Resp BP Pulse Ox 98.3 F 80 18 142/79 93 L 02/20/17 07:20 02/20/17 08:20 02/20/17 07:20 02/20/17 09:15 02/20/17 07:20 - Medications Medications: Current Medications Albuterol/Ipratropium (Duoneb 3 Mg/0.5 Mg (3 Ml) Ud) 3 ml INH RQ2 PRN PRN Reason: SOB Last Admin: 02/20/17 12:29 Dose: 3 ml Amlodipine Besylate (Norvasc) 10 mg PO DAILY [facility] Last Admin: 02/20/17 09:15 Dose: 10 mg Cilostazol (Pletal) 50 mg PO DAILY [facility] Last Admin: 02/20/17 09:16 Dose: 50 mg Emollient Ointment (Vaseline Oint) 5 gm TOP PRN PRN PRN Reason: Dry skin Epoetin Brandon (Procrit) 10,000 unit SC MWF [facility] Last Admin: 02/20/17 08:35 Dose: 10,000 unit Fenofibrate (Tricor) 48 mg PO DAILY [facility] Last Admin: 02/20/17 09:15 Dose: 48 mg Ferrous Sulfate (Feosol) 325 mg PO DAILY [facility] Last Admin: 02/20/17 11:30 Dose: Not Given Furosemide (Lasix) 20 mg IVP DAILY [facility] Last Admin: 02/20/17 09:15 Dose: 20 mg Home Med (Fosamax) 35 mg PO QWK [facility] Azithromycin 500 mg/ Sodium (Chloride) 250 mls @ 167 mls/hr IVPB Q24H [facility] Last Admin: 02/19/17 18:54 Dose: 167 mls/hr Ceftriaxone Sodium (Rocephin Iv 1 Gm Duplex) 50 mls @ 50 mls/30 min IVPB Q24H [facility] Last Admin: 02/19/17 18:11 Dose: 50 mls/30 min Insulin Glargine (Lantus) 15 unit SC HS [facility] Last Admin: 02/19/17 22:30 Dose: Not Given Insulin Human Regular (Novolin R) 0 unit SC ACHS [facility] PRN Reason: Protocol Last Admin: 02/20/17 12:58 Dose: 3 unit Levothyroxine Sodium (Synthroid) 100 mcg PO DAILY@0630 [facility] Last Admin: 02/20/17 06:23 Dose: 100 mcg Metoprolol Succinate (Toprol Xl) 25 mg PO DAILY [facility] Last Admin: 02/20/17 09:16 Dose: 25 mg Pantoprazole Sodium (Protonix Ec Tab) 40 mg PO DAILY [facility] Last Admin: 02/20/17 09:14 Dose: 40 mg Prasugrel (Effient) 10 mg PO DAILY [facility] Last Admin: 02/20/17 09:14 Dose: 10 mg Rosuvastatin Calcium (Crestor) 10 mg PO HS [facility] Last Admin: 02/19/17 22:29 Dose: 10 mg Sevelamer Carbonate (Renvela) 800 mg PO TIDCC [facility] Last Admin: 02/20/17 12:55 Dose: 800 mg - Labs Labs: 02/20/17 08:10 02/20/17 08:10 PT 14.1 SECONDS (9.7-12.2) H 02/15/17 12:13 INR 1.2 02/15/17 12:13 APTT 32 SECONDS (21-34) 02/15/17 12:13 - Constitutional Appears: No Acute Distress, Chronically Ill - Head Exam Head Exam: ATRAUMATIC, NORMAL INSPECTION - Eye Exam Eye Exam: EOMI. absent: Normal appearance - Neck Exam Neck Exam: Normal Inspection. absent: Tenderness - Respiratory Exam Respiratory Exam: Rales, Respiratory Distress - Cardiovascular Exam Cardiovascular Exam: REGULAR RHYTHM, +S1 - GI/Abdominal Exam GI & Abdominal Exam: Soft. absent: Tenderness - Extremities Exam Extremities Exam: Normal Inspection. absent: Tenderness - Neurological Exam Neurological Exam: Alert, CN II-XII Intact - Skin Skin Exam: Dry, Warm Assessment and Plan (1) CHF (congestive heart failure) Status: Acute (2) Type 2 diabetes mellitus with diabetic nephropathy Status: Acute (3) HTN (hypertension) Status: Acute (4) Chronic anemia Status: Acute (5) LUCRECIA (acute kidney injury) Status: Acute (6) Chronic kidney disease, stage IV (severe) Status: Acute - Assessment and Plan (Free Text) Plan: Would increase diuretic dose for continued CHF Consider av access if not better- family wants to wait follow up chemistries continue phos binders, ESAs
--- NOTE | 2017-02-20 13:49 | CP.PCM.PN ---
Subjective - Date & Time of Evaluation Date of Evaluation: 02/20/17 Time of Evaluation: 13:49 Objective - Vital Signs/Intake and Output Vital Signs (last 24 hours): Temp Pulse Resp BP Pulse Ox 98.3 F 80 18 142/79 93 L 02/20/17 07:20 02/20/17 08:20 02/20/17 07:20 02/20/17 09:15 02/20/17 07:20 - Medications Medications: Current Medications Albuterol/Ipratropium (Duoneb 3 Mg/0.5 Mg (3 Ml) Ud) 3 ml INH RQ2 PRN PRN Reason: SOB Last Admin: 02/20/17 12:29 Dose: 3 ml Amlodipine Besylate (Norvasc) 10 mg PO DAILY [facility] Last Admin: 02/20/17 09:15 Dose: 10 mg Cilostazol (Pletal) 50 mg PO DAILY [facility] Last Admin: 02/20/17 09:16 Dose: 50 mg Emollient Ointment (Vaseline Oint) 5 gm TOP PRN PRN PRN Reason: Dry skin Epoetin Brandon (Procrit) 10,000 unit SC MWF [facility] Last Admin: 02/20/17 08:35 Dose: 10,000 unit Fenofibrate (Tricor) 48 mg PO DAILY [facility] Last Admin: 02/20/17 09:15 Dose: 48 mg Ferrous Sulfate (Feosol) 325 mg PO DAILY [facility] Last Admin: 02/20/17 11:30 Dose: Not Given Furosemide (Lasix) 40 mg IVP DAILY [facility] Home Med (Fosamax) 35 mg PO QWK [facility] Azithromycin 500 mg/ Sodium (Chloride) 250 mls @ 167 mls/hr IVPB Q24H [facility] Last Admin: 02/19/17 18:54 Dose: 167 mls/hr Ceftriaxone Sodium (Rocephin Iv 1 Gm Duplex) 50 mls @ 50 mls/30 min IVPB Q24H [facility] Last Admin: 02/19/17 18:11 Dose: 50 mls/30 min Insulin Glargine (Lantus) 15 unit SC HS [facility] Last Admin: 02/19/17 22:30 Dose: Not Given Insulin Human Regular (Novolin R) 0 unit SC ACHS [facility] PRN Reason: Protocol Last Admin: 02/20/17 12:58 Dose: 3 unit Levothyroxine Sodium (Synthroid) 100 mcg PO DAILY@0630 [facility] Last Admin: 02/20/17 06:23 Dose: 100 mcg Metoprolol Succinate (Toprol Xl) 25 mg PO DAILY [facility] Last Admin: 02/20/17 09:16 Dose: 25 mg Pantoprazole Sodium (Protonix Ec Tab) 40 mg PO DAILY [facility] Last Admin: 02/20/17 09:14 Dose: 40 mg Prasugrel (Effient) 10 mg PO DAILY [facility] Last Admin: 02/20/17 09:14 Dose: 10 mg Rosuvastatin Calcium (Crestor) 10 mg PO HS [facility] Last Admin: 02/19/17 22:29 Dose: 10 mg Sevelamer Carbonate (Renvela) 800 mg PO TIDCC [facility] Last Admin: 02/20/17 12:55 Dose: 800 mg - Labs Labs: 02/20/17 08:10 02/20/17 08:10 PT 14.1 SECONDS (9.7-12.2) H 02/15/17 12:13 INR 1.2 02/15/17 12:13 APTT 32 SECONDS (21-34) 02/15/17 12:13
--- NOTE | 2017-02-20 15:54 | CP.PCM.PN ---
Subjective - Date & Time of Evaluation Date of Evaluation: 02/20/17 Time of Evaluation: 10:00 Objective - Vital Signs/Intake and Output Vital Signs (last 24 hours): Temp Pulse Resp BP Pulse Ox 98.3 F 102 H 18 142/79 93 L 02/20/17 07:20 02/20/17 13:15 02/20/17 07:20 02/20/17 09:15 02/20/17 07:20 Intake and Output: 02/20/17 02/20/17 06:59 18:59 Intake Total 800 Balance 800 - Medications Medications: Current Medications Albuterol/Ipratropium (Duoneb 3 Mg/0.5 Mg (3 Ml) Ud) 3 ml INH RQ4 [facility] Amlodipine Besylate (Norvasc) 10 mg PO DAILY [facility] Last Admin: 02/20/17 09:15 Dose: 10 mg Cilostazol (Pletal) 50 mg PO DAILY [facility] Last Admin: 02/20/17 09:16 Dose: 50 mg Emollient Ointment (Vaseline Oint) 5 gm TOP PRN PRN PRN Reason: Dry skin Epoetin Brandon (Procrit) 10,000 unit SC MWF [facility] Last Admin: 02/20/17 08:35 Dose: 10,000 unit Fenofibrate (Tricor) 48 mg PO DAILY [facility] Last Admin: 02/20/17 09:15 Dose: 48 mg Ferrous Sulfate (Feosol) 325 mg PO DAILY [facility] Last Admin: 02/20/17 11:30 Dose: Not Given Furosemide (Lasix) 40 mg IVP DAILY [facility] Home Med (Fosamax) 35 mg PO QWK [facility] Azithromycin 500 mg/ Sodium (Chloride) 250 mls @ 167 mls/hr IVPB Q24H [facility] Last Admin: 02/19/17 18:54 Dose: 167 mls/hr Ceftriaxone Sodium (Rocephin Iv 1 Gm Duplex) 50 mls @ 50 mls/30 min IVPB Q24H [facility] Last Admin: 02/19/17 18:11 Dose: 50 mls/30 min Insulin Glargine (Lantus) 15 unit SC HS [facility] Last Admin: 02/19/17 22:30 Dose: Not Given Insulin Human Regular (Novolin R) 0 unit SC ACHS [facility] PRN Reason: Protocol Last Admin: 02/20/17 12:58 Dose: 3 unit Levothyroxine Sodium (Synthroid) 100 mcg PO DAILY@0630 [facility] Last Admin: 02/20/17 06:23 Dose: 100 mcg Metoprolol Succinate (Toprol Xl) 25 mg PO DAILY [facility] Last Admin: 02/20/17 09:16 Dose: 25 mg Pantoprazole Sodium (Protonix Ec Tab) 40 mg PO DAILY [facility] Last Admin: 02/20/17 09:14 Dose: 40 mg Prasugrel (Effient) 10 mg PO DAILY [facility] Last Admin: 02/20/17 09:14 Dose: 10 mg Rosuvastatin Calcium (Crestor) 10 mg PO HS [facility] Last Admin: 02/19/17 22:29 Dose: 10 mg Sevelamer Carbonate (Renvela) 800 mg PO TIDCC [facility] Last Admin: 02/20/17 12:55 Dose: 800 mg - Labs Labs: 02/20/17 08:10 02/20/17 08:10 PT 14.1 SECONDS (9.7-12.2) H 02/15/17 12:13 INR 1.2 02/15/17 12:13 APTT 32 SECONDS (21-34) 02/15/17 12:13
[2017-02-20] MEDS ORDERED: Albuterol-Ipratrop 3 mg / 0.5 (3 ml) UD INH SCH (16:00)
[2017-02-20] MEDS: cefTRIAXone IV 1 gm in Dextros 50 ML IVPB SCH (18:30)
[2017-02-20] MEDS: Azithromycin 500 MG in Sodium Chloride 0.9% 250 ML IVPB SCH (20:00)
[2017-02-20] MEDS ORDERED: Albuterol-Ipratrop 3 mg / 0.5 (3 ml) UD INH PRN (20:28)
[2017-02-20] MEDS: (Lantus) Insulin Glargine, Recombinant SC SCH (22:08)
[2017-02-21] MEDS: Levothyroxine 100 MCG TAB PO SCH (06:13)
[2017-02-21] MEDS: (Novolin R) Insulin Human Regular 100 units/ml vial SC SCH ×4 (08:13→21:45)
[2017-02-21 08:36] LABS: BASO % 0.2 % (0.0-2.0); EOS # 0.1 K/uL (0.0-0.7); EOS % 0.6 % (0.0-4.0); HEMATOCRIT 21.7 % (34.0-47.0); LYMPH # 2.1 K/uL (1.0-4.3); LYMPH % 12.8 % (20.0-40.0); MEAN CELL VOLUME 95.8 fL (81.0-99.0); MEAN CORPUSCULAR HEMOGLOBIN 31.9 pg (27.0-31.0); MEAN CORPUSCULAR HGB CONC 33.3 g/dL (33.0-37.0); MEAN PLATELET VOLUME 10.7 fL (7.2-11.7); MONO # 4.9 K/uL (0.0-0.8); MONO % 29.8 % (0.0-10.0); NRBC % 0.1 % (0.0-2.0); PLATELET COUNT 66 K/uL (130-400); RED CELL DISTRIBUTION WIDTH 17.4 % (11.5-14.5); WHITE BLOOD COUNT 16.5 K/uL (4.8-10.8)
[2017-02-21 08:53] LABS: POTASSIUM 4.7 mmol/L (3.6-5.2)
[2017-02-21 08:55] LABS: ALB/GLOB RATIO 0.8 (1.0-2.1); BILIRUBIN,TOTAL 0.5 mg/dL (0.2-1.3); PHOSPHOROUS 4.6 mg/dL (2.5-4.5); TOTAL PROTEIN 7.3 g/dL (6.3-8.3)
[2017-02-21 08:56] LABS: CALCIUM 8.5 mg/dl (8.6-10.4); MAGNESIUM 2.7 mg/dL (1.6-2.3)
[2017-02-21 09:09] LABS: MYELOCYTE 1 % (0-0); NEUTROPHIL 53 % (50-75); TOTAL CELLS COUNTED 100
[2017-02-21] MEDS: Pantoprazole 40 mg EC Tab PO SCH (10:54)
[2017-02-21] MEDS: Cilostazol 50 mg Tab UD PO SCH (10:55)
[2017-02-21] MEDS: Metoprolol Succinate 25 mg XL Tab PO SCH (10:59)
--- NOTE | 2017-02-21 12:20 | CP.PCM.PN ---
Subjective - Date & Time of Evaluation Date of Evaluation: 02/21/17 Time of Evaluation: 12:18 - Subjective Subjective: seen and examine on iv lasix uop not charted creatinine stable improved breathing. denies any chest pain cough nausea vomiting dizziness headache rash fevers chills Objective - Vital Signs/Intake and Output Vital Signs (last 24 hours): Temp Pulse Resp BP Pulse Ox 97.9 F 70 20 152/57 H 95 02/21/17 08:00 02/21/17 08:00 02/21/17 08:00 02/21/17 10:55 02/21/17 08:00 Intake and Output: 02/21/17 02/21/17 06:59 18:59 Intake Total 120 Balance 120 - Medications Medications: Current Medications Acetaminophen (Tylenol 325mg Tab) 650 mg PO Q6 PRN PRN Reason: headache Last Admin: 02/20/17 18:28 Dose: 650 mg Albuterol/Ipratropium (Duoneb 3 Mg/0.5 Mg (3 Ml) Ud) 3 ml INH RQ4 PRN PRN Reason: Wheezing Amlodipine Besylate (Norvasc) 10 mg PO DAILY [facility] Last Admin: 02/21/17 10:54 Dose: 10 mg Cilostazol (Pletal) 50 mg PO DAILY [facility] Last Admin: 02/21/17 10:55 Dose: 50 mg Emollient Ointment (Vaseline Oint) 5 gm TOP PRN PRN PRN Reason: Dry skin Epoetin Branodn (Procrit) 10,000 unit SC MWF [facility] Last Admin: 02/20/17 08:35 Dose: 10,000 unit Fenofibrate (Tricor) 48 mg PO DAILY [facility] Last Admin: 02/21/17 10:54 Dose: 48 mg Ferrous Sulfate (Feosol) 325 mg PO DAILY [facility] Last Admin: 02/21/17 10:54 Dose: 325 mg Furosemide (Lasix) 40 mg IVP DAILY [facility] Last Admin: 02/21/17 10:55 Dose: 40 mg Home Med (Fosamax) 35 mg PO QWK [facility] Azithromycin 500 mg/ Sodium (Chloride) 250 mls @ 167 mls/hr IVPB Q24H [facility] Last Admin: 02/20/17 20:00 Dose: 167 mls/hr Ceftriaxone Sodium (Rocephin Iv 1 Gm Duplex) 50 mls @ 50 mls/30 min IVPB Q24H [facility] Last Admin: 02/20/17 18:30 Dose: 50 mls/30 min Insulin Glargine (Lantus) 15 unit SC [facility] Last Admin: 02/20/17 22:08 Dose: 15 units Insulin Human Regular (Novolin R) [address] [facility] PRN Reason: Protocol Last Admin: 02/21/17 12:12 Dose: Not Given Levothyroxine Sodium (Synthroid) 100 mcg PO DAILY@0630 [facility] Last Admin: 02/21/17 06:13 Dose: 100 mcg Metoprolol Succinate (Toprol Xl) 25 mg PO DAILY [facility] Last Admin: 02/21/17 10:59 Dose: 25 mg Pantoprazole Sodium (Protonix Ec Tab) 40 mg PO DAILY [facility] Last Admin: 02/21/17 10:54 Dose: 40 mg Prasugrel (Effient) 10 mg PO DAILY [facility] Last Admin: 02/21/17 10:54 Dose: 10 mg Rosuvastatin Calcium (Crestor) 10 mg PO [facility] Last Admin: 02/20/17 22:08 Dose: 10 mg Sevelamer Carbonate (Renvela) 800 mg PO TIDCC [facility] Last Admin: 02/21/17 11:10 Dose: 800 mg - Labs Labs: 02/21/17 08:22 02/21/17 08:22 PT 14.1 SECONDS (9.7-12.2) H 02/15/17 12:13 INR 1.2 02/15/17 12:13 APTT 32 SECONDS (21-34) 02/15/17 12:13 - Constitutional Appears: No Acute Distress, Chronically Ill - Head Exam Head Exam: NORMAL INSPECTION - Eye Exam Eye Exam: Normal appearance - ENT Exam ENT Exam: Mucous Membranes Moist, Normal Exam - Neck Exam Neck Exam: Normal Inspection - Respiratory Exam Respiratory Exam: Decreased Breath Sounds, Rhonchi - Cardiovascular Exam Cardiovascular Exam: REGULAR RHYTHM, RRR - GI/Abdominal Exam GI & Abdominal Exam: Distended, Soft - Extremities Exam Extremities Exam: Pedal Edema Assessment and Plan (1) LUCRECIA (acute kidney injury) Status: Acute (2) Anemia Status: Acute (3) CHF (congestive heart failure) Status: Acute (4) Chronic kidney disease, stage IV (severe) Status: Acute (5) Type 2 diabetes mellitus with diabetic nephropathy Status: Acute - Assessment and Plan (Free Text) Assessment: maintain diuretic daily chems on radha, add iv iron recommend renal multivitamin
[2017-02-21] MEDS: Ferric Sodium Gluconat Complex 62.5 mg/5 ml Vial IVPB SCH (13:03)
--- NOTE | 2017-02-21 14:57 | CP.PCM.PN ---
<YesicaKarl Heather - Last Filed: 02/21/17 14:54> Subjective - Date & Time of Evaluation Date of Evaluation: 02/21/17 Time of Evaluation: 14:54 - Subjective Subjective: Patient was seen and examined at bedside. She was breathing comfortably on nasal cannula Patient with relative at bedside. Patient said her breathing is much improved now and says she doesn't need the respiratory treatment as often anymore. She said she wants to go home upon discharge rather than to rehab and has a family member to take care of her. She denied any complaints today. She denied chest pain, shortness of breath, vomiting, diarrhea, abdominal pain, fever, chills. Objective - Vital Signs/Intake and Output Vital Signs (last 24 hours): Temp Pulse Resp BP Pulse Ox 97.9 F 70 20 152/57 H 95 02/21/17 08:00 02/21/17 08:00 02/21/17 08:00 02/21/17 10:55 02/21/17 08:00 Intake and Output: 02/21/17 02/21/17 06:59 18:59 Intake Total 120 Balance 120 - Medications Medications: Current Medications Acetaminophen (Tylenol 325mg Tab) 650 mg PO Q6 PRN PRN Reason: headache Last Admin: 02/20/17 18:28 Dose: 650 mg Albuterol/Ipratropium (Duoneb 3 Mg/0.5 Mg (3 Ml) Ud) 3 ml INH RBID [facility] Amlodipine Besylate (Norvasc) 10 mg PO DAILY [facility] Last Admin: 02/21/17 10:54 Dose: 10 mg Cilostazol (Pletal) 50 mg PO DAILY [facility] Last Admin: 02/21/17 10:55 Dose: 50 mg Emollient Ointment (Vaseline Oint) 5 gm TOP PRN PRN PRN Reason: Dry skin Epoetin Brandon (Procrit) 10,000 unit SC MWF [facility] Last Admin: 02/20/17 08:35 Dose: 10,000 unit Fenofibrate (Tricor) 48 mg PO DAILY [facility] Last Admin: 02/21/17 10:54 Dose: 48 mg Ferric Sodium Gluconate Complex (Ferrlecit) 125 mg IVPB DAILY [facility] Stop: 03/01/17 12:46 Last Admin: 02/21/17 13:03 Dose: 125 mg Furosemide (Lasix) 40 mg IVP DAILY [facility] Last Admin: 02/21/17 10:55 Dose: 40 mg Home Med (Fosamax) 35 mg PO QWK [facility] Azithromycin 500 mg/ Sodium (Chloride) 250 mls @ 167 mls/hr IVPB Q24H [facility] Last Admin: 02/20/17 20:00 Dose: 167 mls/hr Ceftriaxone Sodium (Rocephin Iv 1 Gm Duplex) 50 mls @ 50 mls/30 min IVPB Q24H [facility] Last Admin: 02/20/17 18:30 Dose: 50 mls/30 min Insulin Glargine (Lantus) 15 unit SC [facility] Last Admin: 02/20/17 22:08 Dose: 15 units Insulin Human Regular (Novolin R) 0 unit SC [facility] PRN Reason: Protocol Last Admin: 02/21/17 12:12 Dose: Not Given Levothyroxine Sodium (Synthroid) 100 mcg PO DAILY@0630 [facility] Last Admin: 02/21/17 06:13 Dose: 100 mcg Metoprolol Succinate (Toprol Xl) 25 mg PO DAILY [facility] Last Admin: 02/21/17 10:59 Dose: 25 mg Pantoprazole Sodium (Protonix Ec Tab) 40 mg PO DAILY [facility] Last Admin: 02/21/17 10:54 Dose: 40 mg Prasugrel (Effient) 10 mg PO DAILY [facility] Last Admin: 02/21/17 10:54 Dose: 10 mg Rosuvastatin Calcium (Crestor) 10 mg PO HS [facility] Last Admin: 02/20/17 22:08 Dose: 10 mg Sevelamer Carbonate (Renvela) 800 mg PO TIDCC [facility] Last Admin: 02/21/17 11:10 Dose: 800 mg - Labs Labs: 02/21/17 08:22 02/21/17 08:22 PT 14.1 SECONDS (9.7-12.2) H 02/15/17 12:13 INR 1.2 02/15/17 12:13 APTT 32 SECONDS (21-34) 02/15/17 12:13 - Constitutional Appears: Non-toxic, No Acute Distress - Head Exam Head Exam: ATRAUMATIC, NORMAL INSPECTION - Eye Exam Eye Exam: EOMI Pupil Exam: PERRL - ENT Exam ENT Exam: Mucous Membranes Moist - Neck Exam Neck Exam: Full ROM - Respiratory Exam Respiratory Exam: Clear to Ausculation Bilateral, Wheezes, NORMAL BREATHING PATTERN. absent: Accessory Muscle Use, Chest Wall Tenderness, Respiratory Distress - Cardiovascular Exam Cardiovascular Exam: REGULAR RHYTHM, RRR. absent: Bradycardia, Tachycardia - GI/Abdominal Exam GI & Abdominal Exam: Soft, Normal Bowel Sounds. absent: Tenderness - Rectal Exam Rectal Exam: Deferred - Extremities Exam Extremities Exam: Normal Capillary Refill. absent: Pedal Edema - Neurological Exam Neurological Exam: Alert, Awake, Oriented x3 - Psychiatric Exam Psychiatric exam: Normal Affect, Normal Mood - Skin Skin Exam: Dry, Intact, Normal Color, Warm Assessment and Plan - Assessment and Plan (Free Text) Assessment: CHF CXR 02/19: Improving congestive heart failure/ pulmonary edema. 02/18: Patient recent CXRAY still show signifigant congestion. Also CT scan of chest suggesting moderate effusions as well. She has been on lasix for diurese, however yesterday decreased dose due to renal function. Currently not on ACEI/ ARB due to renal function EKG showed NSR @ 76 bpm without acute changes. CXR 02/15/17 - showed no PE but with bilateral infiltrates per report. ABG WNL. Dr. Day and David consulted, help appreciated. Duoneb and BIPAP PRN. Lasix 40mg IV q12H - decreased to 20mg IV Q12 due to worsening Creatinine troponins - negative x3 CXR (02/16/17) - Moderate to severe venous congestion with prominent confluent consolidative changes at both lung bases with a moderate left and small right pleural effusion. Cardiomegaly. Bilateral hilar prominence. Degenerative changes in the spine and shoulders. Calcification at the aortic knob. Aortic calcifications. EKG - no change Chest CT w/o (02/16/17): Vascular pattern suggests CHF as discussed above. However, the main pulmonary artery is also dilated to 3.6 cm, greater in caliber than the thoracic aorta and the right ventricle and atrium appears somewhat prominent compared to the left heart. Consider pulmonary arterial hypertension. Contrast dating this possibility is of normal apparent size to the inferior vena cava. Further clinical correlation is advised. Mild bilateral pleural effusions is are compression atelectasis at the bilateral lower lobes with underlying pneumonia not completely excluded. 3 mm right apical noncalcified nodule for which follow-up chest is advised in 12 months is imaged to demonstrate stability. Lung rads 2 Pt has hx of pulmonary nodule from CT 2016, will consider CT later if symptoms not resolving. Continue bi-pap as needed Records [place] [facility] [place] ECHO : normal EF with diastolic dysfunction type 2, . Cardiac Cath 09/15/2016: Mid LAD 90% stenosis, KAREL placed. Prox CX, mid subsection 50% stenosis, LVEF 40%. Bandemia - Resoloved 02/20: WBC 17.3, 11% bands; 18% bands on 02/19 Infectious Disease Consult, Dr. Rodriguez Blood cultures are negative at 4 days Ceftriaxone 1gm IVPO Q24H Azithromycin 500mg IVPB Q24H lactate 0.5 (low), procalcitonin 0.13 (low) LUCRECIA on CKD 02/18: Pending 24 hr urines studies, also just had renal ultrasound done. The worsening renal function likekly contributing to patient being short of breath and congestion seen on CXRAY as well Creatine today 3.2, baseline 1.8. Per pt daughter, pt has kidney stone and atrophy observed on ultrasound done at [facility] [place]- nonobstructing 9mm stone right kidney Nephrology consult - Dr. Langston - help appreciated Continued on lasix 20mg IVP daily Per Dr. Mejia note, patient interested in PD if kidney function does not improve. Patient is still making urine. Anemia 02/21/17: transfused 1u pRBC today 02/18: Likely secondary to chronic kidney disease, there are orders for iron and Epogen Ferritin 93 last year. Current FOBT negative, s/p unremarkable EGD a month ago per daughter. Pt sees private heme/onc Dr. Avel Day outpatient, scheduled for biopsy 02/16. Heme/onc Dr. Blake consulted, help appreciated. reticulocyte 4.6 high Iron 52 TIBC 263 %sat 20 Ferritin 330 Vitamin B12 705 Folate 9.9 Stopped IV ferrous, started on Ferrous Sulfate 325mg PO daily Thrombocytopenia Heme/onc Dr. Blake consulted, help appreciated. Hep A Ab postive Hep Bs antigen, core IgM Ab and Hep C Ab - negative DM RISS, accucheck. Continue home med Lantus 15 units HS. Withhold oral meds. A1c - 8.5 Hypothyroidism TSH 5.6 Continue home med Synthroid 100mcg PO ACB PAD Cardio Dr. Day consulted, help appreciated. Continue home med Pletal and Effient. Prophylactic measure Protonix, HepSQ. venous doppler - normal, no abnormal findings. Disposition: Patient stated she would like to go home upon discharge rather than rehab. She says she has a relative that can take care of her at home and help her recover. Will discuss case with Dr. Montes <Jose Montes - Last Filed: 02/22/17 16:47> Objective - Vital Signs/Intake and Output Vital Signs (last 24 hours): Temp Pulse Resp BP Pulse Ox 98.5 F 94 H 20 151/68 H 94 L 02/22/17 15:57 02/22/17 15:57 02/22/17 15:57 02/22/17 15:57 02/22/17 15:57 Intake and Output: 02/22/17 02/22/17 06:59 18:59 Intake Total 1658 600 Balance 1658 600 - Medications Medications: Current Medications Acetaminophen (Tylenol 325mg Tab) 650 mg PO Q6 PRN PRN Reason: headache Last Admin: 02/22/17 01:37 Dose: 650 mg Albuterol/Ipratropium (Duoneb 3 Mg/0.5 Mg (3 Ml) Ud) 3 ml INH RBID [facility] Last Admin: 02/22/17 07:30 Dose: 3 ml Amlodipine Besylate (Norvasc) 10 mg PO DAILY [facility] Last Admin: 02/22/17 09:19 Dose: 10 mg Cilostazol (Pletal) 50 mg PO DAILY [facility] Last Admin: 02/22/17 09:20 Dose: 50 mg Emollient Ointment (Vaseline Oint) 5 gm TOP PRN PRN PRN Reason: Dry skin Epoetin Brandon (Procrit) 10,000 unit SC MWF [facility] Last Admin: 02/22/17 08:56 Dose: 10,000 unit Fenofibrate (Tricor) 48 mg PO DAILY [facility] Last Admin: 02/22/17 09:20 Dose: 48 mg Ferrous Sulfate (Feosol) 325 mg PO DAILY@1200 [facility] Furosemide (Lasix) 40 mg IVP DAILY [facility] Last Admin: 02/22/17 11:02 Dose: 40 mg Home Med (Patient's Own Medication) 1 tab PO QWK [facility] Azithromycin 500 mg/ Sodium (Chloride) 250 mls @ 167 mls/hr IVPB Q24H [facility] Last Admin: 02/21/17 20:05 Dose: Not Given Ceftriaxone Sodium (Rocephin Iv 1 Gm Duplex) 50 mls @ 50 mls/30 min IVPB Q24H [facility] Last Admin: 02/21/17 19:45 Dose: Not Given Insulin Glargine (Lantus) 15 unit SC HS [facility] Last Admin: 02/21/17 22:10 Dose: 15 units Insulin Human Regular (Novolin R) 0 unit SC ACHS [facility] PRN Reason: Protocol Last Admin: 02/22/17 12:25 Dose: Not Given Levothyroxine Sodium (Synthroid) 100 mcg PO DAILY@0630 [facility] Last Admin: 02/22/17 06:15 Dose: 100 mcg Metoprolol Succinate (Toprol Xl) 25 mg PO DAILY [facility] Last Admin: 02/22/17 09:20 Dose: 25 mg Metronidazole (Flagyl) 500 mg PO Q8 [facility] Last Admin: 02/22/17 13:16 Dose: 500 mg Pantoprazole Sodium (Protonix Ec Tab) 40 mg PO DAILY [facility] Last Admin: 02/22/17 09:19 Dose: 40 mg Prasugrel (Effient) 10 mg PO DAILY [facility] Last Admin: 02/22/17 09:20 Dose: 10 mg Rosuvastatin Calcium (Crestor) 10 mg PO HS [facility] Last Admin: 02/21/17 22:09 Dose: 10 mg Sevelamer Carbonate (Renvela) 800 mg PO TIDCC [facility] Last Admin: 02/22/17 11:02 Dose: 800 mg - Labs Labs: 02/22/17 08:21 02/22/17 08:21 PT 14.1 SECONDS (9.7-12.2) H 02/15/17 12:13 INR 1.2 02/15/17 12:13 APTT 32 SECONDS (21-34) 02/15/17 12:13 Attending/Attestation - Attestation I have personally seen and examined this patient.: Yes I have fully participated in the care of the patient.: Yes I have reviewed all pertinent clinical information, including history, physical exam and plan: Yes Notes (Text): Bandemia/Leucocytosis CHF acute on chronic diastolic Pulmonary Hypertension LUCRECIA on CKD Anemia Thrombocytopenia DM Hypothyroidism
--- NOTE | 2017-02-21 19:04 | CP.PCM.PN ---
Subjective - Date & Time of Evaluation Date of Evaluation: 02/21/17 Time of Evaluation: 19:04 Objective - Vital Signs/Intake and Output Vital Signs (last 24 hours): Temp Pulse Resp BP Pulse Ox 98.4 F 80 18 131/77 94 L 02/21/17 18:56 02/21/17 18:56 02/21/17 18:56 02/21/17 18:56 02/21/17 15:09 Intake and Output: 02/21/17 02/22/17 18:59 06:59 Intake Total 400 Balance 400 - Medications Medications: Current Medications Acetaminophen (Tylenol 325mg Tab) 650 mg PO Q6 PRN PRN Reason: headache Last Admin: 02/20/17 18:28 Dose: 650 mg Albuterol/Ipratropium (Duoneb 3 Mg/0.5 Mg (3 Ml) Ud) 3 ml INH RBID [facility] Amlodipine Besylate (Norvasc) 10 mg PO DAILY [facility] Last Admin: 02/21/17 10:54 Dose: 10 mg Cilostazol (Pletal) 50 mg PO DAILY [facility] Last Admin: 02/21/17 10:55 Dose: 50 mg Emollient Ointment (Vaseline Oint) 5 gm TOP PRN PRN PRN Reason: Dry skin Epoetin Brandon (Procrit) 10,000 unit SC MWF [facility] Last Admin: 02/20/17 08:35 Dose: 10,000 unit Fenofibrate (Tricor) 48 mg PO DAILY [facility] Last Admin: 02/21/17 10:54 Dose: 48 mg Ferric Sodium Gluconate Complex (Ferrlecit) 125 mg IVPB DAILY [facility] Stop: 03/01/17 12:46 Last Admin: 02/21/17 13:03 Dose: 125 mg Furosemide (Lasix) 40 mg IVP DAILY [facility] Last Admin: 02/21/17 10:55 Dose: 40 mg Home Med (Patient's Own Medication) 1 tab PO QWK [facility] Azithromycin 500 mg/ Sodium (Chloride) 250 mls @ 167 mls/hr IVPB Q24H [facility] Last Admin: 02/20/17 20:00 Dose: 167 mls/hr Ceftriaxone Sodium (Rocephin Iv 1 Gm Duplex) 50 mls @ 50 mls/30 min IVPB Q24H [facility] Last Admin: 02/20/17 18:30 Dose: 50 mls/30 min Insulin Glargine (Lantus) [address] [facility] Last Admin: 02/20/17 22:08 Dose: 15 units Insulin Human Regular (Novolin R) 0 unit SC [facility] PRN Reason: Protocol Last Admin: 02/21/17 17:00 Dose: 2 unit Levothyroxine Sodium (Synthroid) 100 mcg PO DAILY@0630 [facility] Last Admin: 02/21/17 06:13 Dose: 100 mcg Metoprolol Succinate (Toprol Xl) 25 mg PO DAILY [facility] Last Admin: 02/21/17 10:59 Dose: 25 mg Pantoprazole Sodium (Protonix Ec Tab) 40 mg PO DAILY [facility] Last Admin: 02/21/17 10:54 Dose: 40 mg Prasugrel (Effient) 10 mg PO DAILY [facility] Last Admin: 02/21/17 10:54 Dose: 10 mg Rosuvastatin Calcium (Crestor) 10 mg PO HS [facility] Last Admin: 02/20/17 22:08 Dose: 10 mg Sevelamer Carbonate (Renvela) 800 mg PO TIDCC [facility] Last Admin: 02/21/17 17:33 Dose: 800 mg - Labs Labs: 02/21/17 08:22 02/21/17 08:22 PT 14.1 SECONDS (9.7-12.2) H 02/15/17 12:13 INR 1.2 02/15/17 12:13 APTT 32 SECONDS (21-34) 02/15/17 12:13
--- NOTE | 2017-02-21 19:18 | CP.PCM.PN ---
Subjective - Date & Time of Evaluation Date of Evaluation: 02/18/17 Time of Evaluation: 15:00 - Subjective Subjective: [place] short of breath with ambulation Objective - Vital Signs/Intake and Output Vital Signs (last 24 hours): Temp Pulse Resp BP Pulse Ox 98.4 F 80 18 131/77 94 L 02/21/17 18:56 02/21/17 18:56 02/21/17 18:56 02/21/17 18:56 02/21/17 15:09 Intake and Output: 02/21/17 02/22/17 18:59 06:59 Intake Total 400 Balance 400 - Medications Medications: Current Medications Acetaminophen (Tylenol 325mg Tab) 650 mg PO Q6 PRN PRN Reason: headache Last Admin: 02/20/17 18:28 Dose: 650 mg Albuterol/Ipratropium (Duoneb 3 Mg/0.5 Mg (3 Ml) Ud) 3 ml INH RBID [facility] Amlodipine Besylate (Norvasc) 10 mg PO DAILY [facility] Last Admin: 02/21/17 10:54 Dose: 10 mg Cilostazol (Pletal) 50 mg PO DAILY [facility] Last Admin: 02/21/17 10:55 Dose: 50 mg Emollient Ointment (Vaseline Oint) 5 gm TOP PRN PRN PRN Reason: Dry skin Epoetin Brandon (Procrit) 10,000 unit SC MWF [facility] Last Admin: 02/20/17 08:35 Dose: 10,000 unit Fenofibrate (Tricor) 48 mg PO DAILY [facility] Last Admin: 02/21/17 10:54 Dose: 48 mg Ferric Sodium Gluconate Complex (Ferrlecit) 125 mg IVPB DAILY [facility] Stop: 03/01/17 12:46 Last Admin: 02/21/17 13:03 Dose: 125 mg Furosemide (Lasix) 40 mg IVP DAILY [facility] Last Admin: 02/21/17 10:55 Dose: 40 mg Home Med (Patient's Own Medication) 1 tab PO QWK [facility] Azithromycin 500 mg/ Sodium (Chloride) 250 mls @ 167 mls/hr IVPB Q24H [facility] Last Admin: 02/20/17 20:00 Dose: 167 mls/hr Ceftriaxone Sodium (Rocephin Iv 1 Gm Duplex) 50 mls @ 50 mls/30 min IVPB Q24H [facility] Last Admin: 02/20/17 18:30 Dose: 50 mls/30 min Insulin Glargine (Lantus) 15 unit SC [facility] Last Admin: 02/20/17 22:08 Dose: 15 units Insulin Human Regular (Novolin R) 0 unit SC [facility] PRN Reason: Protocol Last Admin: 02/21/17 17:00 Dose: 2 unit Levothyroxine Sodium (Synthroid) 100 mcg PO DAILY@0630 [facility] Last Admin: 02/21/17 06:13 Dose: 100 mcg Metoprolol Succinate (Toprol Xl) 25 mg PO DAILY [facility] Last Admin: 02/21/17 10:59 Dose: 25 mg Pantoprazole Sodium (Protonix Ec Tab) 40 mg PO DAILY [facility] Last Admin: 02/21/17 10:54 Dose: 40 mg Prasugrel (Effient) 10 mg PO DAILY [facility] Last Admin: 02/21/17 10:54 Dose: 10 mg Rosuvastatin Calcium (Crestor) 10 mg PO [facility] Last Admin: 02/20/17 22:08 Dose: 10 mg Sevelamer Carbonate (Renvela) 800 mg PO TIDCC [facility] Last Admin: 02/21/17 17:33 Dose: 800 mg - Labs Labs: 02/21/17 08:22 02/21/17 08:22 PT 14.1 SECONDS (9.7-12.2) H 02/15/17 12:13 INR 1.2 02/15/17 12:13 APTT 32 SECONDS (21-34) 02/15/17 12:13 - Head Exam Head Exam: ATRAUMATIC - Eye Exam Eye Exam: Normal appearance - ENT Exam ENT Exam: Mucous Membranes Dry - Respiratory Exam Respiratory Exam: NORMAL BREATHING PATTERN - Cardiovascular Exam Cardiovascular Exam: +S1, +S2 - GI/Abdominal Exam GI & Abdominal Exam: Normal Bowel Sounds - Extremities Exam Extremities Exam: Pedal Edema Assessment and Plan (1) Anemia Assessment & Plan: transfusion support elevated globulin gap noted outpatient bone marrow evaluation with primary child support officer. Status: Acute (2) Thrombocytopenia Assessment & Plan: mild for outpatient bone marrow biopsy Status: Acute (3) Leukocytosis Assessment & Plan: on antibiotics Status: Acute
--- NOTE | 2017-02-21 19:19 | CP.PCM.PN ---
Subjective - Date & Time of Evaluation Date of Evaluation: 02/20/17 Time of Evaluation: 19:45 - Subjective Subjective: No complaints. Objective - Vital Signs/Intake and Output Vital Signs (last 24 hours): Temp Pulse Resp BP Pulse Ox 98.5 F 78 18 131/57 L 94 L 02/21/17 19:11 02/21/17 19:11 02/21/17 19:11 02/21/17 19:11 02/21/17 15:09 Intake and Output: 02/21/17 02/22/17 18:59 06:59 Intake Total 400 Balance 400 - Medications Medications: Current Medications Acetaminophen (Tylenol 325mg Tab) 650 mg PO Q6 PRN PRN Reason: headache Last Admin: 02/20/17 18:28 Dose: 650 mg Albuterol/Ipratropium (Duoneb 3 Mg/0.5 Mg (3 Ml) Ud) 3 ml INH RBID [facility] Amlodipine Besylate (Norvasc) 10 mg PO DAILY [facility] Last Admin: 02/21/17 10:54 Dose: 10 mg Cilostazol (Pletal) 50 mg PO DAILY [facility] Last Admin: 02/21/17 10:55 Dose: 50 mg Emollient Ointment (Vaseline Oint) 5 gm TOP PRN PRN PRN Reason: Dry skin Epoetin Brandon (Procrit) 10,000 unit SC MWF [facility] Last Admin: 02/20/17 08:35 Dose: 10,000 unit Fenofibrate (Tricor) 48 mg PO DAILY [facility] Last Admin: 02/21/17 10:54 Dose: 48 mg Ferric Sodium Gluconate Complex (Ferrlecit) 125 mg IVPB DAILY [facility] Stop: 03/01/17 12:46 Last Admin: 02/21/17 13:03 Dose: 125 mg Furosemide (Lasix) 40 mg IVP DAILY [facility] Last Admin: 02/21/17 10:55 Dose: 40 mg Home Med (Patient's Own Medication) 1 tab PO QWK [facility] Azithromycin 500 mg/ Sodium (Chloride) 250 mls @ 167 mls/hr IVPB Q24H [facility] Last Admin: 02/20/17 20:00 Dose: 167 mls/hr Ceftriaxone Sodium (Rocephin Iv 1 Gm Duplex) 50 mls @ 50 mls/30 min IVPB Q24H [facility] Last Admin: 02/20/17 18:30 Dose: 50 mls/30 min Insulin Glargine (Lantus) 15 unit SC [facility] Last Admin: 02/20/17 22:08 Dose: 15 units Insulin Human Regular (Novolin R) 0 unit SC [facility] PRN Reason: Protocol Last Admin: 02/21/17 17:00 Dose: 2 unit Levothyroxine Sodium (Synthroid) 100 mcg PO DAILY@0630 [facility] Last Admin: 02/21/17 06:13 Dose: 100 mcg Metoprolol Succinate (Toprol Xl) 25 mg PO DAILY [facility] Last Admin: 02/21/17 10:59 Dose: 25 mg Pantoprazole Sodium (Protonix Ec Tab) 40 mg PO DAILY [facility] Last Admin: 02/21/17 10:54 Dose: 40 mg Prasugrel (Effient) 10 mg PO DAILY [facility] Last Admin: 02/21/17 10:54 Dose: 10 mg Rosuvastatin Calcium (Crestor) 10 mg PO [facility] Last Admin: 02/20/17 22:08 Dose: 10 mg Sevelamer Carbonate (Renvela) 800 mg PO TIDCC [facility] Last Admin: 02/21/17 17:33 Dose: 800 mg - Labs Labs: 02/21/17 08:22 02/21/17 08:22 PT 14.1 SECONDS (9.7-12.2) H 02/15/17 12:13 INR 1.2 02/15/17 12:13 APTT 32 SECONDS (21-34) 02/15/17 12:13 - Head Exam Head Exam: ATRAUMATIC - Eye Exam Eye Exam: Normal appearance - ENT Exam ENT Exam: Mucous Membranes Dry - Respiratory Exam Respiratory Exam: NORMAL BREATHING PATTERN - Cardiovascular Exam Cardiovascular Exam: +S1, +S2 - GI/Abdominal Exam GI & Abdominal Exam: Normal Bowel Sounds - Extremities Exam Extremities Exam: Pedal Edema Assessment and Plan (1) Anemia Assessment & Plan: transfusion support started on EPO elevated globulin gap noted outpatient bone marrow evaluation with primary tin can feeder. Status: Acute (2) Thrombocytopenia Assessment & Plan: mild for outpatient bone marrow evaluation Status: Acute (3) Leukocytosis Assessment & Plan: on antibiotics Status: Acute
--- NOTE | 2017-02-21 19:20 | CP.PCM.PN ---
Subjective - Date & Time of Evaluation Date of Evaluation: 02/21/17 Time of Evaluation: 16:00 - Subjective Subjective: Breathing better Objective - Vital Signs/Intake and Output Vital Signs (last 24 hours): Temp Pulse Resp BP Pulse Ox 98.5 F 78 18 131/57 L 94 L 02/21/17 19:11 02/21/17 19:11 02/21/17 19:11 02/21/17 19:11 02/21/17 15:09 Intake and Output: 02/21/17 02/22/17 18:59 06:59 Intake Total 400 Balance 400 - Medications Medications: Current Medications Acetaminophen (Tylenol 325mg Tab) 650 mg PO Q6 PRN PRN Reason: headache Last Admin: 02/20/17 18:28 Dose: 650 mg Albuterol/Ipratropium (Duoneb 3 Mg/0.5 Mg (3 Ml) Ud) 3 ml INH RBID ON LICENSE OF [facility] Amlodipine Besylate (Norvasc) 10 mg PO DAILY ON LICENSE OF [facility] Last Admin: 02/21/17 10:54 Dose: 10 mg Cilostazol (Pletal) 50 mg PO DAILY ON [facility] OF [facility] Last Admin: 02/21/17 10:55 Dose: 50 mg Emollient Ointment (Vaseline Oint) 5 gm TOP PRN PRN PRN Reason: Dry skin Epoetin Brandon (Procrit) 10,000 unit SC MWF ON LICENSE OF [facility] Last Admin: 02/20/17 08:35 Dose: 10,000 unit Fenofibrate (Tricor) 48 mg PO DAILY ON LICENSE OF [facility] Last Admin: 02/21/17 10:54 Dose: 48 mg Ferric Sodium Gluconate Complex (Ferrlecit) 125 mg IVPB DAILY ON LICENSE OF [facility] Stop: 03/01/17 12:46 Last Admin: 02/21/17 13:03 Dose: 125 mg Furosemide (Lasix) 40 mg IVP DAILY ON [facility] OF [facility] Last Admin: 02/21/17 10:55 Dose: 40 mg Home Med (Patient's Own Medication) 1 tab PO QWK ON LICENSE OF [facility] Azithromycin 500 mg/ Sodium (Chloride) 250 mls @ 167 mls/hr IVPB Q24H ON LICENSE OF [facility] Last Admin: 02/20/17 20:00 Dose: 167 mls/hr Ceftriaxone Sodium (Rocephin Iv 1 Gm Duplex) 50 mls @ 50 mls/30 min IVPB Q24H ON LICENSE OF [facility] Last Admin: 02/20/17 18:30 Dose: 50 mls/30 min Insulin Glargine (Lantus) 15 unit SC [facility] Last Admin: 02/20/17 22:08 Dose: 15 units Insulin Human Regular (Novolin R) 0 unit SC [facility] ON LICENSE OF [facility] PRN Reason: Protocol Last Admin: 02/21/17 17:00 Dose: 2 unit Levothyroxine Sodium (Synthroid) 100 mcg PO DAILY@0630 ON LICENSE OF [facility] Last Admin: 02/21/17 06:13 Dose: 100 mcg Metoprolol Succinate (Toprol Xl) 25 mg PO DAILY ON [facility] OF [facility] Last Admin: 02/21/17 10:59 Dose: 25 mg Pantoprazole Sodium (Protonix Ec Tab) 40 mg PO DAILY ON [facility] OF [facility] Last Admin: 02/21/17 10:54 Dose: 40 mg Prasugrel (Effient) 10 mg PO DAILY ON LICENSE OF [facility] Last Admin: 02/21/17 10:54 Dose: 10 mg Rosuvastatin Calcium (Crestor) 10 mg PO [facility] Last Admin: 02/20/17 22:08 Dose: 10 mg Sevelamer Carbonate (Renvela) 800 mg PO TIDCC ON LICENSE OF [facility] Last Admin: 02/21/17 17:33 Dose: 800 mg - Labs Labs: 02/21/17 08:22 02/21/17 08:22 PT 14.1 SECONDS (9.7-12.2) H 02/15/17 12:13 INR 1.2 02/15/17 12:13 APTT 32 SECONDS (21-34) 02/15/17 12:13 - Head Exam Head Exam: ATRAUMATIC - Eye Exam Eye Exam: Normal appearance - ENT Exam ENT Exam: Mucous Membranes Dry - Respiratory Exam Respiratory Exam: NORMAL BREATHING PATTERN - Cardiovascular Exam Cardiovascular Exam: +S1, +S2 - GI/Abdominal Exam GI & Abdominal Exam: Normal Bowel Sounds Assessment and Plan (1) Anemia Assessment & Plan: transfusion support started on EPO elevated globulin gap noted outpatient bone marrow evaluation with primary wax specialist. Status: Acute (2) Thrombocytopenia Assessment & Plan: mild outpatient bone marrow evaluation Status: Acute (3) Leukocytosis Assessment & Plan: on antibiotics Status: Acute
[2017-02-21] MEDS: Albuterol-Ipratrop 3 mg / 0.5 (3 ml) UD INH SCH (19:21)
[2017-02-21] MEDS: cefTRIAXone IV 1 gm in Dextros 50 ML IVPB SCH (19:45)
[2017-02-21] MEDS: Azithromycin 500 MG in Sodium Chloride 0.9% 250 ML IVPB SCH (20:05)
[2017-02-21] MEDS: (Lantus) Insulin Glargine, Recombinant SC SCH (22:10)
[2017-02-22 00:41] VITALS: RESP 20
[2017-02-22] MEDS: Levothyroxine 100 MCG TAB PO SCH (06:15)
[2017-02-22] MEDS: Albuterol-Ipratrop 3 mg / 0.5 (3 ml) UD INH SCH ×2 (07:30→19:27)
[2017-02-22 08:41] LABS: BASO # 0.1 K/uL (0.0-0.2); BASO % 0.4 % (0.0-2.0); EOS # 0.1 K/uL (0.0-0.7); EOS % 0.3 % (0.0-4.0); HEMATOCRIT 29.7 % (34.0-47.0); LYMPH # 2.7 K/uL (1.0-4.3); LYMPH % 12.7 % (20.0-40.0); MEAN CELL VOLUME 93.4 fL (81.0-99.0); MEAN CORPUSCULAR HEMOGLOBIN 31.7 pg (27.0-31.0); MEAN PLATELET VOLUME 10.4 fL (7.2-11.7); MONO # 7.6 K/uL (0.0-0.8); MONO % 35.7 % (0.0-10.0); NRBC % 0.1 % (0.0-2.0); PLATELET COUNT 65 K/uL (130-400); RED CELL DISTRIBUTION WIDTH 17.1 % (11.5-14.5); WHITE BLOOD COUNT 21.2 K/uL (4.8-10.8)
[2017-02-22] MEDS: EPOETIN ALFA 10,000 UNIT/ML ML SC SCH (08:56)
[2017-02-22 09:07] LABS: POTASSIUM 4.7 mmol/L (3.6-5.2)
[2017-02-22 09:13] LABS: ALB/GLOB RATIO 0.9 (1.0-2.1); BILIRUBIN,TOTAL 0.8 mg/dL (0.2-1.3); CALCIUM 8.6 mg/dl (8.6-10.4); MAGNESIUM 2.5 mg/dL (1.6-2.3); PHOSPHOROUS 3.3 mg/dL (2.5-4.5); TOTAL PROTEIN 7.7 g/dL (6.3-8.3)
[2017-02-22] MEDS: Ferric Sodium Gluconat Complex 62.5 mg/5 ml Vial IVPB SCH (09:19)
[2017-02-22] MEDS: Pantoprazole 40 mg EC Tab PO SCH (09:19)
[2017-02-22] MEDS: Metoprolol Succinate 25 mg XL Tab PO SCH (09:20)
[2017-02-22] MEDS: Cilostazol 50 mg Tab UD PO SCH (09:20)
[2017-02-22] MEDS: (Novolin R) Insulin Human Regular 100 units/ml vial SC SCH ×4 (09:31→22:00)
[2017-02-22 09:54] LABS: MYELOCYTE 1 % (0-0); NEUTROPHIL 50 % (50-75); TOTAL CELLS COUNTED 100
--- NOTE | 2017-02-22 16:13 | CP.PCM.PN ---
Subjective - Date & Time of Evaluation Date of Evaluation: 02/22/17 Time of Evaluation: 15:30 - Subjective Subjective: doing better breathing better not sob no chest pain no fever normal u/o no edema no metallic taste in mouth, appetite fair no rash no headache Objective - Vital Signs/Intake and Output Vital Signs (last 24 hours): Temp Pulse Resp BP Pulse Ox 98.5 F 94 H 20 151/68 H 94 L 02/22/17 15:57 02/22/17 15:57 02/22/17 15:57 02/22/17 15:57 02/22/17 15:57 Intake and Output: 02/22/17 02/22/17 06:59 18:59 Intake Total 1658 600 Balance 1658 600 - Medications Medications: Current Medications Acetaminophen (Tylenol 325mg Tab) 650 mg PO Q6 PRN PRN Reason: headache Last Admin: 02/22/17 01:37 Dose: 650 mg Albuterol/Ipratropium (Duoneb 3 Mg/0.5 Mg (3 Ml) Ud) 3 ml INH RBID [facility] Last Admin: 02/22/17 07:30 Dose: 3 ml Amlodipine Besylate (Norvasc) 10 mg PO DAILY [facility] Last Admin: 02/22/17 09:19 Dose: 10 mg Cilostazol (Pletal) 50 mg PO DAILY [facility] Last Admin: 02/22/17 09:20 Dose: 50 mg Emollient Ointment (Vaseline Oint) 5 gm TOP PRN PRN PRN Reason: Dry skin Epoetin Brandon (Procrit) 10,000 unit SC MWF [facility] Last Admin: 02/22/17 08:56 Dose: 10,000 unit Fenofibrate (Tricor) 48 mg PO DAILY [facility] Last Admin: 02/22/17 09:20 Dose: 48 mg Ferrous Sulfate (Feosol) 325 mg PO DAILY@1200 [facility] Furosemide (Lasix) 40 mg IVP DAILY [facility] Last Admin: 02/22/17 11:02 Dose: 40 mg Home Med (Patient's Own Medication) 1 tab PO QWK [facility] Azithromycin 500 mg/ Sodium (Chloride) 250 mls @ 167 mls/hr IVPB Q24H [facility] Last Admin: 02/21/17 20:05 Dose: Not Given Ceftriaxone Sodium (Rocephin Iv 1 Gm Duplex) 50 mls @ 50 mls/30 min IVPB Q24H [facility] Last Admin: 02/21/17 19:45 Dose: Not Given Insulin Glargine (Lantus) 15 unit SC [facility] Last Admin: 02/21/17 22:10 Dose: 15 units Insulin Human Regular (Novolin R) 0 unit SC [facility] PRN Reason: Protocol Last Admin: 02/22/17 12:25 Dose: Not Given Levothyroxine Sodium (Synthroid) 100 mcg PO DAILY@0630 [facility] Last Admin: 02/22/17 06:15 Dose: 100 mcg Metoprolol Succinate (Toprol Xl) 25 mg PO DAILY [facility] Last Admin: 02/22/17 09:20 Dose: 25 mg Metronidazole (Flagyl) 500 mg PO Q8 [facility] Last Admin: 02/22/17 13:16 Dose: 500 mg Pantoprazole Sodium (Protonix Ec Tab) 40 mg PO DAILY [facility] Last Admin: 02/22/17 09:19 Dose: 40 mg Prasugrel (Effient) 10 mg PO DAILY [facility] Last Admin: 02/22/17 09:20 Dose: 10 mg Rosuvastatin Calcium (Crestor) 10 mg PO HS [facility] Last Admin: 02/21/17 22:09 Dose: 10 mg Sevelamer Carbonate (Renvela) 800 mg PO TIDCC [facility] Last Admin: 02/22/17 11:02 Dose: 800 mg - Labs Labs: 02/22/17 08:21 02/22/17 08:21 PT 14.1 SECONDS (9.7-12.2) H 02/15/17 12:13 INR 1.2 02/15/17 12:13 APTT 32 SECONDS (21-34) 02/15/17 12:13 - Constitutional Appears: Chronically Ill - Head Exam Head Exam: ATRAUMATIC - Eye Exam Eye Exam: EOMI - ENT Exam ENT Exam: Mucous Membranes Moist - Neck Exam Neck Exam: Full ROM. absent: Lymphadenopathy - Respiratory Exam Respiratory Exam: Clear to Ausculation Bilateral. absent: Accessory Muscle Use - Cardiovascular Exam Cardiovascular Exam: REGULAR RHYTHM. absent: Rubs - GI/Abdominal Exam GI & Abdominal Exam: Soft. absent: Tenderness - Extremities Exam Extremities Exam: absent: Pedal Edema Assessment and Plan - Assessment and Plan (Free Text) Assessment: ckd 4/5 anemia and thrombocytopenia pneumonia/chf for bone marrow biopsy office f/u rasheed need to start [employer] soon
--- NOTE | 2017-02-22 16:47 | CP.PCM.PN ---
Subjective - Date & Time of Evaluation Date of Evaluation: 02/22/17 Time of Evaluation: 16:45 - Subjective Subjective: Patient seen and examined No events overnight Reports improved dyspnea Uses BiPAP intermittently Objective - Vital Signs/Intake and Output Vital Signs (last 24 hours): Temp Pulse Resp BP Pulse Ox 98.5 F 94 H 20 151/68 H 94 L 02/22/17 15:57 02/22/17 15:57 02/22/17 15:57 02/22/17 15:57 02/22/17 15:57 Intake and Output: 02/22/17 02/22/17 06:59 18:59 Intake Total 1658 600 Balance 1658 600 - Medications Medications: Current Medications Acetaminophen (Tylenol 325mg Tab) 650 mg PO Q6 PRN PRN Reason: headache Last Admin: 02/22/17 01:37 Dose: 650 mg Albuterol/Ipratropium (Duoneb 3 Mg/0.5 Mg (3 Ml) Ud) 3 ml INH RBID [facility] Last Admin: 02/22/17 07:30 Dose: 3 ml Amlodipine Besylate (Norvasc) 10 mg PO DAILY [facility] Last Admin: 02/22/17 09:19 Dose: 10 mg Cilostazol (Pletal) 50 mg PO DAILY [facility] Last Admin: 02/22/17 09:20 Dose: 50 mg Emollient Ointment (Vaseline Oint) 5 gm TOP PRN PRN PRN Reason: Dry skin Epoetin Brandon (Procrit) 10,000 unit SC MWF [facility] Last Admin: 02/22/17 08:56 Dose: 10,000 unit Fenofibrate (Tricor) 48 mg PO DAILY [facility] Last Admin: 02/22/17 09:20 Dose: 48 mg Ferrous Sulfate (Feosol) 325 mg PO DAILY@1200 [facility] Furosemide (Lasix) 40 mg IVP DAILY [facility] Last Admin: 02/22/17 11:02 Dose: 40 mg Home Med (Patient's Own Medication) 1 tab PO QWK [facility] Azithromycin 500 mg/ Sodium (Chloride) 250 mls @ 167 mls/hr IVPB Q24H [facility] Last Admin: 02/21/17 20:05 Dose: Not Given Ceftriaxone Sodium (Rocephin Iv 1 Gm Duplex) 50 mls @ 50 mls/30 min IVPB Q24H [facility] Last Admin: 02/21/17 19:45 Dose: Not Given Insulin Glargine (Lantus) 15 unit SC [facility] Last Admin: 02/21/17 22:10 Dose: 15 units Insulin Human Regular (Novolin R) 0 unit SC [facility] PRN Reason: Protocol Last Admin: 02/22/17 12:25 Dose: Not Given Levothyroxine Sodium (Synthroid) 100 mcg PO DAILY@0630 [facility] Last Admin: 02/22/17 06:15 Dose: 100 mcg Metoprolol Succinate (Toprol Xl) 25 mg PO DAILY [facility] Last Admin: 02/22/17 09:20 Dose: 25 mg Metronidazole (Flagyl) 500 mg PO Q8 [facility] Last Admin: 02/22/17 13:16 Dose: 500 mg Pantoprazole Sodium (Protonix Ec Tab) 40 mg PO DAILY [facility] Last Admin: 02/22/17 09:19 Dose: 40 mg Prasugrel (Effient) 10 mg PO DAILY [facility] Last Admin: 02/22/17 09:20 Dose: 10 mg Rosuvastatin Calcium (Crestor) 10 mg PO HS [facility] Last Admin: 02/21/17 22:09 Dose: 10 mg Sevelamer Carbonate (Renvela) 800 mg PO TIDCC [facility] Last Admin: 02/22/17 11:02 Dose: 800 mg - Labs Labs: 02/22/17 08:21 02/22/17 08:21 PT 14.1 SECONDS (9.7-12.2) H 02/15/17 12:13 INR 1.2 02/15/17 12:13 APTT 32 SECONDS (21-34) 02/15/17 12:13 - Head Exam Head Exam: NORMAL INSPECTION - Eye Exam Eye Exam: Normal appearance - ENT Exam ENT Exam: Mucous Membranes Moist - Respiratory Exam Respiratory Exam: Clear to Ausculation Bilateral, NORMAL BREATHING PATTERN - Cardiovascular Exam Cardiovascular Exam: REGULAR RHYTHM, +S1, +S2 - GI/Abdominal Exam GI & Abdominal Exam: Soft, Normal Bowel Sounds - Extremities Exam Extremities Exam: Pedal Edema Assessment and Plan - Assessment and Plan (Free Text) Assessment: Acute and Chronic respiratory insufficiency with hypoxemia LUCRECIA on CKD CHF exacerbation Pulmonary hypertension ENRIQUE Continue BiPAP as needed Monitor I's and O's Bronchodilators Supportive care DVT/GI prophylaxis
[2017-02-22] MEDS: cefTRIAXone IV 1 gm in Dextros 50 ML IVPB SCH (18:16)
--- NOTE | 2017-02-22 18:47 | CP.PCM.PN ---
Subjective - Date & Time of Evaluation Date of Evaluation: 02/22/17 Time of Evaluation: 07:00 - Subjective Subjective: PGY1 Medicine Note for Dr. Montes Patient seen and examined this morning at bedside. Patient states that although she is, "not 100%, but moving in the right direction." Patient states that her breathing is greatly improved and she has not been sob in a while. The patient and her daughter, who are at bedside, express their wishes for the patient to be discharged home. They were disappointed but understood that we wanted to keep the patient for another night due to an increasing WBC. Patient has no complaints at this time. Objective - Vital Signs/Intake and Output Vital Signs (last 24 hours): Temp Pulse Resp BP Pulse Ox 98.5 F 94 H 20 151/68 H 94 L 02/22/17 15:57 02/22/17 15:57 02/22/17 15:57 02/22/17 15:57 02/22/17 15:57 Intake and Output: 02/22/17 02/22/17 06:59 18:59 Intake Total 1658 600 Balance 1658 600 - Medications Medications: Current Medications Acetaminophen (Tylenol 325mg Tab) 650 mg PO Q6 PRN PRN Reason: headache Last Admin: 02/22/17 01:37 Dose: 650 mg Albuterol/Ipratropium (Duoneb 3 Mg/0.5 Mg (3 Ml) Ud) 3 ml INH RBID [facility] Last Admin: 02/22/17 07:30 Dose: 3 ml Amlodipine Besylate (Norvasc) 10 mg PO DAILY [facility] Last Admin: 02/22/17 09:19 Dose: 10 mg Cilostazol (Pletal) 50 mg PO DAILY [facility] Last Admin: 02/22/17 09:20 Dose: 50 mg Emollient Ointment (Vaseline Oint) 5 gm TOP PRN PRN PRN Reason: Dry skin Epoetin Brandon (Procrit) 10,000 unit SC MWF [facility] Last Admin: 02/22/17 08:56 Dose: 10,000 unit Fenofibrate (Tricor) 48 mg PO DAILY [facility] Last Admin: 02/22/17 09:20 Dose: 48 mg Ferrous Sulfate (Feosol) 325 mg PO DAILY@1200 [facility] Furosemide (Lasix) 40 mg IVP DAILY [facility] Last Admin: 02/22/17 11:02 Dose: 40 mg Home Med (Patient's Own Medication) 1 tab PO QWK [facility] Azithromycin 500 mg/ Sodium (Chloride) 250 mls @ 167 mls/hr IVPB Q24H [facility] Last Admin: 02/21/17 20:05 Dose: Not Given Ceftriaxone Sodium (Rocephin Iv 1 Gm Duplex) 50 mls @ 50 mls/30 min IVPB Q24H [facility] Last Admin: 02/22/17 18:16 Dose: 50 mls/30 min Insulin Glargine (Lantus) [address] [facility] Last Admin: 02/21/17 22:10 Dose: 15 units Insulin Human Regular (Novolin R) 0 unit SC [facility] PRN Reason: Protocol Last Admin: 02/22/17 17:07 Dose: Not Given Levothyroxine Sodium (Synthroid) 100 mcg PO DAILY@0630 [facility] Last Admin: 02/22/17 06:15 Dose: 100 mcg Metoprolol Succinate (Toprol Xl) 25 mg PO DAILY [facility] Last Admin: 02/22/17 09:20 Dose: 25 mg Metronidazole (Flagyl) 500 mg PO Q8 [facility] Last Admin: 02/22/17 13:16 Dose: 500 mg Pantoprazole Sodium (Protonix Ec Tab) 40 mg PO DAILY [facility] Last Admin: 02/22/17 09:19 Dose: 40 mg Prasugrel (Effient) 10 mg PO DAILY [facility] Last Admin: 02/22/17 09:20 Dose: 10 mg Rosuvastatin Calcium (Crestor) 10 mg PO HS [facility] Last Admin: 02/21/17 22:09 Dose: 10 mg Sevelamer Carbonate (Renvela) 800 mg PO TIDCC [facility] Last Admin: 02/22/17 17:30 Dose: 800 mg - Labs Labs: 02/22/17 08:21 02/22/17 08:21 PT 14.1 SECONDS (9.7-12.2) H 02/15/17 12:13 INR 1.2 02/15/17 12:13 APTT 32 SECONDS (21-34) 02/15/17 12:13 - Constitutional Appears: Non-toxic, No Acute Distress - Head Exam Head Exam: ATRAUMATIC, NORMOCEPHALIC - Eye Exam Eye Exam: EOMI - ENT Exam ENT Exam: Mucous Membranes Moist - Respiratory Exam Respiratory Exam: Rales (bases b/l), NORMAL BREATHING PATTERN. absent: Respiratory Distress - Cardiovascular Exam Cardiovascular Exam: REGULAR RHYTHM, +S1 - GI/Abdominal Exam GI & Abdominal Exam: Soft, Normal Bowel Sounds. absent: Distended, Firm, Guarding, Rigid, Tenderness - Extremities Exam Extremities Exam: absent: Calf Tenderness, Pedal Edema - Neurological Exam Neurological Exam: Alert, Awake, Oriented x3 - Psychiatric Exam Psychiatric exam: Normal Affect, Normal Mood - Skin Skin Exam: Dry, Normal Color, Warm Assessment and Plan - Assessment and Plan (Free Text) Assessment: CHF CXR 02/19: Improving congestive heart failure/ pulmonary edema. 02/18: Patient recent CXRAY still show signifigant congestion. Also CT scan of chest suggesting moderate effusions as well. She has been on lasix for diurese, however yesterday decreased dose due to renal function. Currently not on ACEI/ ARB due to renal function EKG showed NSR @ 76 bpm without acute changes. CXR 02/15/17 - showed no PE but with bilateral infiltrates per report. ABG WNL. Dr. Day and David consulted, help appreciated. Duoneb and BIPAP PRN. Lasix 40mg IV q12H - decreased to 20mg IV Q12 due to worsening Creatinine troponins - negative x3 CXR (02/16/17) - Moderate to severe venous congestion with prominent confluent consolidative changes at both lung bases with a moderate left and small right pleural effusion. Cardiomegaly. Bilateral hilar prominence. Degenerative changes in the spine and shoulders. Calcification at the aortic knob. Aortic calcifications. EKG - no change Chest CT w/o (02/16/17): Vascular pattern suggests CHF as discussed above. However, the main pulmonary artery is also dilated to 3.6 cm, greater in caliber than the thoracic aorta and the right ventricle and atrium appears somewhat prominent compared to the left heart. Consider pulmonary arterial hypertension. Contrast dating this possibility is of normal apparent size to the inferior vena cava. Further clinical correlation is advised. Mild bilateral pleural effusions is are compression atelectasis at the bilateral lower lobes with underlying pneumonia not completely excluded. 3 mm right apical noncalcified nodule for which follow-up chest is advised in 12 months is imaged to demonstrate stability. Lung rads 2 Pt has hx of pulmonary nodule from CT 2016, will consider CT later if symptoms not resolving. Continue bi-pap as needed Records from [facility]; ECHO : normal EF with diastolic dysfunction type 2, . Cardiac Cath 09/15/2016: Mid LAD 90% stenosis, KAREL placed. Prox CX, mid subsection 50% stenosis, LVEF 40%. Leukocytosis/Bandemia - Resoloved 02/22: WBC elevated 21.2, bands 2% - started on Flagyl 500mg Q8 02/20: WBC 17.3, 11% bands; 18% bands on 02/19 Infectious Disease Consult, Dr. Rodriguez Blood cultures are negative at 5 days Ceftriaxone 1gm IVPO Q24H (started on 02/18) Azithromycin 500mg IVPB Q24H (started on 02/15) lactate 0.5 (low), procalcitonin 0.13 (low) LUCRECIA on CKD 02/18: Pending 24 hr urines studies, also just had renal ultrasound done. The worsening renal function likekly contributing to patient being short of breath and congestion seen on CXRAY as well Creatine today 3.2, baseline 1.8. Per pt daughter, pt has kidney stone and atrophy observed on ultrasound done at [facility] [place]- nonobstructing 9mm stone right kidney Nephrology consult - Dr. Langston - help appreciated Continued on lasix 20mg IVP daily Per Dr. Mejia note, patient interested in PD if kidney function does not improve. Patient is still making urine. Anemia 02/23/17: stable at 10.1 02/22/17: transfused 2u pRBC 02/21/17: transfused 1u pRBC 02/18: Likely secondary to chronic kidney disease, there are orders for iron and Epogen Ferritin 93 last year. Current FOBT negative, s/p unremarkable EGD a month ago per daughter. Pt sees private heme/onc Dr. Avel Day outpatient, scheduled for biopsy 02/16. Heme/onc Dr. Blake consulted, help appreciated. reticulocyte 4.6 high Iron 52 TIBC 263 %sat 20 Ferritin 330 Vitamin B12 705 Folate 9.9 Stopped IV ferrous, started on Ferrous Sulfate 325mg PO daily Thrombocytopenia Heme/onc Dr. Blake consulted, help appreciated. Hep A Ab postive Hep Bs antigen, core IgM Ab and Hep C Ab - negative DM RISS, accucheck. Continue home med Lantus 15 units HS. Withhold oral meds. A1c - 8.5 Hypothyroidism TSH 5.6 Continue home med Synthroid 100mcg PO ACB PAD Cardio Dr. Day consulted, help appreciated. Continue home med Pletal and Effient. Prophylactic measure Protonix, HepSQ. venous doppler - normal, no abnormal findings. Disposition: Patient stated she would like to go home upon discharge rather than rehab. She says she has a relative that can take care of her at home and help her recover. Case discussed with Dr. Simon Hurley
[2017-02-22] MEDS: Azithromycin 500 MG in Sodium Chloride 0.9% 250 ML IVPB SCH (19:11)
[2017-02-22] MEDS: (Lantus) Insulin Glargine, Recombinant SC SCH (22:32)
[2017-02-23] MEDS: Levothyroxine 100 MCG TAB PO SCH (05:34)
[2017-02-23 06:26] LABS: BASO % 0.2 % (0.0-2.0); EOS # 0.1 K/uL (0.0-0.7); EOS % 0.3 % (0.0-4.0); HEMATOCRIT 29.2 % (34.0-47.0); LYMPH # 2.1 K/uL (1.0-4.3); MEAN CELL VOLUME 92.8 fL (81.0-99.0); MEAN CORPUSCULAR HEMOGLOBIN 30.6 pg (27.0-31.0); MEAN PLATELET VOLUME 10.1 fL (7.2-11.7); MONO # 9.2 K/uL (0.0-0.8); MONO % 39.3 % (0.0-10.0); NRBC % 0.4 % (0.0-2.0); PLATELET COUNT 60 K/uL (130-400); RED CELL DISTRIBUTION WIDTH 17.3 % (11.5-14.5); WHITE BLOOD COUNT 23.3 K/uL (4.8-10.8)
[2017-02-23 07:35] LABS: POTASSIUM 4.5 mmol/L (3.6-5.2)
[2017-02-23 07:37] LABS: BILIRUBIN,TOTAL 0.8 mg/dL (0.2-1.3); TOTAL PROTEIN 7.8 g/dL (6.3-8.3)
[2017-02-23 07:38] LABS: CALCIUM 8.7 mg/dl (8.6-10.4); MAGNESIUM 2.2 mg/dL (1.6-2.3); PHOSPHOROUS 2.8 mg/dL (2.5-4.5)
[2017-02-23] MEDS: Albuterol-Ipratrop 3 mg / 0.5 (3 ml) UD INH SCH (07:43)
[2017-02-23] MEDS: (Novolin R) Insulin Human Regular 100 units/ml vial SC SCH ×4 (08:11→18:17)
[2017-02-23 08:49] LABS: EOSINOPHIL 1 % (0-4); MYELOCYTE 3 % (0-0); NEUTROPHIL 49 % (50-75); NUCLEATED RED BLOOD CELL 1 % (0-0); TOTAL CELLS COUNTED 100
[2017-02-23 09:05] VITALS: O2SAT 94
[2017-02-23] MEDS: Metoprolol Succinate 25 mg XL Tab PO SCH (10:45)
[2017-02-23] MEDS: Cilostazol 50 mg Tab UD PO SCH (10:46)
[2017-02-23] MEDS: Pantoprazole 40 mg EC Tab PO SCH (10:46)
--- NOTE | 2017-02-23 11:11 | CP.PCM.PN ---
Subjective - Date & Time of Evaluation Date of Evaluation: 02/23/17 Time of Evaluation: 11:08 - Subjective Subjective: Feels better; s/p blood transfusion renal function stable- creat 2.6- not dyspmeic, no n, v, f, c Objective - Vital Signs/Intake and Output Vital Signs (last 24 hours): Temp Pulse Resp BP Pulse Ox 98.5 F 106 H 20 154/61 H 94 L 02/23/17 07:25 02/23/17 07:25 02/23/17 07:25 02/23/17 10:46 02/23/17 07:25 Intake and Output: 02/23/17 02/23/17 06:59 18:59 Intake Total 540 Balance 540 - Medications Medications: Current Medications Acetaminophen (Tylenol 325mg Tab) 650 mg PO Q6 PRN PRN Reason: headache Last Admin: 02/22/17 01:37 Dose: 650 mg Albuterol/Ipratropium (Duoneb 3 Mg/0.5 Mg (3 Ml) Ud) 3 ml INH RBID [facility] Last Admin: 02/23/17 07:43 Dose: 3 ml Amlodipine Besylate (Norvasc) 10 mg PO DAILY [facility] Last Admin: 02/23/17 10:45 Dose: 10 mg Cilostazol (Pletal) 50 mg PO DAILY [facility] Last Admin: 02/23/17 10:46 Dose: 50 mg Emollient Ointment (Vaseline Oint) 5 gm TOP PRN PRN PRN Reason: Dry skin Epoetin Brandon (Procrit) 10,000 unit SC MWF [facility] Last Admin: 02/22/17 08:56 Dose: 10,000 unit Fenofibrate (Tricor) 48 mg PO DAILY [facility] Last Admin: 02/23/17 10:46 Dose: 48 mg Ferrous Sulfate (Feosol) 325 mg PO DAILY@1200 [facility] Furosemide (Lasix) 40 mg IVP DAILY [facility] Last Admin: 02/23/17 10:46 Dose: 40 mg Home Med (Patient's Own Medication) 1 tab PO QWK [facility] Azithromycin 500 mg/ Sodium (Chloride) 250 mls @ 167 mls/hr IVPB Q24H [facility] Last Admin: 02/22/17 19:11 Dose: 167 mls/hr Ceftriaxone Sodium (Rocephin Iv 1 Gm Duplex) 50 mls @ 50 mls/30 min IVPB Q24H [facility] Last Admin: 02/22/17 18:16 Dose: 50 mls/30 min Insulin Glargine (Lantus) 15 unit SC [facility] Last Admin: 02/22/17 22:32 Dose: 15 units Insulin Human Regular (Novolin R) 0 unit SC [facility] PRN Reason: Protocol Last Admin: 02/23/17 08:11 Dose: Not Given Levothyroxine Sodium (Synthroid) 100 mcg PO DAILY@0630 [facility] Last Admin: 02/23/17 05:34 Dose: 100 mcg Metoprolol Succinate (Toprol Xl) 25 mg PO DAILY [facility] Last Admin: 02/23/17 10:45 Dose: 25 mg Metronidazole (Flagyl) 500 mg PO Q8 [facility] Last Admin: 02/23/17 05:34 Dose: 500 mg Pantoprazole Sodium (Protonix Ec Tab) 40 mg PO DAILY [facility] Last Admin: 02/23/17 10:46 Dose: 40 mg Prasugrel (Effient) 10 mg PO DAILY [facility] Last Admin: 02/23/17 10:46 Dose: 10 mg Rosuvastatin Calcium (Crestor) 10 mg PO HS [facility] Last Admin: 02/22/17 22:32 Dose: 10 mg Sevelamer Carbonate (Renvela) 800 mg PO TIDCC [facility] Last Admin: 02/23/17 08:29 Dose: 800 mg - Labs Labs: 02/23/17 06:21 02/23/17 06:21 PT 14.1 SECONDS (9.7-12.2) H 02/15/17 12:13 INR 1.2 02/15/17 12:13 APTT 32 SECONDS (21-34) 02/15/17 12:13 - Constitutional Appears: No Acute Distress, Chronically Ill - Head Exam Head Exam: ATRAUMATIC, NORMAL INSPECTION - Eye Exam Eye Exam: EOMI, Normal appearance - Neck Exam Neck Exam: Normal Inspection. absent: Tenderness - Respiratory Exam Respiratory Exam: Rhonchi, NORMAL BREATHING PATTERN - Cardiovascular Exam Cardiovascular Exam: REGULAR RHYTHM, +S1 - GI/Abdominal Exam GI & Abdominal Exam: Soft. absent: Tenderness - Extremities Exam Extremities Exam: Normal Inspection. absent: Tenderness - Neurological Exam Neurological Exam: Altered - Skin Skin Exam: Dry, Warm Assessment and Plan (1) CHF (congestive heart failure) Status: Acute (2) Type 2 diabetes mellitus with diabetic nephropathy Status: Acute (3) HTN (hypertension) Status: Acute (4) Chronic anemia Status: Acute (5) LUCRECIA (acute kidney injury) Status: Acute (6) Chronic kidney disease, stage IV (severe) Status: Acute - Assessment and Plan (Free Text) Plan: Monitor renal function No plans for dialysis now continue ESAs recheck iron stores
--- NOTE | 2017-02-23 14:05 | CP.PCM.PN ---
Subjective - Date & Time of Evaluation Date of Evaluation: 02/23/17 Time of Evaluation: 11:00 - Subjective Subjective: PGY1 Medicine Note for Dr. Hammer Objective - Vital Signs/Intake and Output Vital Signs (last 24 hours): Temp Pulse Resp BP Pulse Ox 98.5 F 106 H 20 154/61 H 94 L 02/23/17 07:25 02/23/17 07:25 02/23/17 07:25 02/23/17 10:46 02/23/17 07:25 Intake and Output: 02/23/17 02/23/17 06:59 18:59 Intake Total 540 Balance 540 - Medications Medications: Current Medications Acetaminophen (Tylenol 325mg Tab) 650 mg PO Q6 PRN PRN Reason: headache Last Admin: 02/22/17 01:37 Dose: 650 mg Albuterol/Ipratropium (Duoneb 3 Mg/0.5 Mg (3 Ml) Ud) 3 ml INH RBID [facility] Last Admin: 02/23/17 07:43 Dose: 3 ml Amlodipine Besylate (Norvasc) 10 mg PO DAILY [facility] Last Admin: 02/23/17 10:45 Dose: 10 mg Cilostazol (Pletal) 50 mg PO DAILY [facility] Last Admin: 02/23/17 10:46 Dose: 50 mg Emollient Ointment (Vaseline Oint) 5 gm TOP PRN PRN PRN Reason: Dry skin Epoetin Brandon (Procrit) 10,000 unit SC MWF [facility] Last Admin: 02/22/17 08:56 Dose: 10,000 unit Fenofibrate (Tricor) 48 mg PO DAILY [facility] Last Admin: 02/23/17 10:46 Dose: 48 mg Ferrous Sulfate (Feosol) 325 mg PO DAILY@1200 [facility] Last Admin: 02/23/17 11:46 Dose: 325 mg Furosemide (Lasix) 40 mg IVP DAILY [facility] Last Admin: 02/23/17 10:46 Dose: 40 mg Home Med (Patient's Own Medication) 1 tab PO QWK [facility] Azithromycin 500 mg/ Sodium (Chloride) 250 mls @ 167 mls/hr IVPB Q24H [facility] Last Admin: 02/22/17 19:11 Dose: 167 mls/hr Ceftriaxone Sodium (Rocephin Iv 1 Gm Duplex) 50 mls @ 50 mls/30 min IVPB Q24H [facility] Last Admin: 02/22/17 18:16 Dose: 50 mls/30 min Insulin Glargine (Lantus) 15 unit SC HS [facility] Last Admin: 02/22/17 22:32 Dose: 15 units Insulin Human Regular (Novolin R) 0 unit SC [facility] PRN Reason: Protocol Last Admin: 02/23/17 12:52 Dose: 3 unit Levothyroxine Sodium (Synthroid) 100 mcg PO DAILY@0630 [facility] Last Admin: 02/23/17 05:34 Dose: 100 mcg Metoprolol Succinate (Toprol Xl) 25 mg PO DAILY [facility] Last Admin: 02/23/17 10:45 Dose: 25 mg Metronidazole (Flagyl) 500 mg PO Q8 [facility] Last Admin: 02/23/17 13:55 Dose: 500 mg Pantoprazole Sodium (Protonix Ec Tab) 40 mg PO DAILY [facility] Last Admin: 02/23/17 10:46 Dose: 40 mg Prasugrel (Effient) 10 mg PO DAILY [facility] Last Admin: 02/23/17 10:46 Dose: 10 mg Rosuvastatin Calcium (Crestor) 10 mg PO HS [facility] Last Admin: 02/22/17 22:32 Dose: 10 mg Sevelamer Carbonate (Renvela) 800 mg PO TIDCC [facility] Last Admin: 02/23/17 11:46 Dose: 800 mg - Labs Labs: 02/23/17 06:21 02/23/17 06:21 PT 14.1 SECONDS (9.7-12.2) H 02/15/17 12:13 INR 1.2 02/15/17 12:13 APTT 32 SECONDS (21-34) 02/15/17 12:13
[2017-02-23 15:42] VITALS: BP 158/60; PULSE 112; TEMP 97.8
[2017-02-23] MEDS: cefTRIAXone IV 1 gm in Dextros 50 ML IVPB SCH (18:17)
--- NOTE | 2017-02-23 19:14 | CP.PCM.PN ---
Subjective - Date & Time of Evaluation Date of Evaluation: 02/23/17 Time of Evaluation: 19:14 Objective - Vital Signs/Intake and Output Vital Signs (last 24 hours): Temp Pulse Resp BP Pulse Ox 97.8 F 112 H 20 158/60 H 94 L 02/23/17 15:40 02/23/17 15:40 02/23/17 15:40 02/23/17 15:40 02/23/17 15:40 Intake and Output: 02/23/17 02/24/17 18:59 06:59 Intake Total 200 Balance 200 - Medications Medications: Current Medications Acetaminophen (Tylenol 325mg Tab) 650 mg PO Q6 PRN PRN Reason: headache Last Admin: 02/22/17 01:37 Dose: 650 mg Albuterol/Ipratropium (Duoneb 3 Mg/0.5 Mg (3 Ml) Ud) 3 ml INH RBID [facility] Last Admin: 02/23/17 07:43 Dose: 3 ml Amlodipine Besylate (Norvasc) 10 mg PO DAILY [facility] Last Admin: 02/23/17 10:45 Dose: 10 mg Cilostazol (Pletal) 50 mg PO DAILY [facility] Last Admin: 02/23/17 10:46 Dose: 50 mg Emollient Ointment (Vaseline Oint) 5 gm TOP PRN PRN PRN Reason: Dry skin Epoetin Brandon (Procrit) 10,000 unit SC MWF [facility] Last Admin: 02/22/17 08:56 Dose: 10,000 unit Fenofibrate (Tricor) 48 mg PO DAILY [facility] Last Admin: 02/23/17 10:46 Dose: 48 mg Ferrous Sulfate (Feosol) 325 mg PO DAILY@1200 [facility] Last Admin: 02/23/17 11:46 Dose: 325 mg Furosemide (Lasix) 40 mg IVP DAILY [facility] Last Admin: 02/23/17 10:46 Dose: 40 mg Home Med (Patient's Own Medication) 1 tab PO QWK [facility] Azithromycin 500 mg/ Sodium (Chloride) 250 mls @ 167 mls/hr IVPB Q24H [facility] Last Admin: 02/22/17 19:11 Dose: 167 mls/hr Insulin Glargine (Lantus) 15 unit SC HS [facility] Last Admin: 02/22/17 22:32 Dose: 15 units Insulin Human Regular (Novolin R) 0 unit SC [facility] PRN Reason: Protocol Last Admin: 02/23/17 18:17 Dose: Not Given Levothyroxine Sodium (Synthroid) 100 mcg PO DAILY@0630 [facility] Last Admin: 02/23/17 05:34 Dose: 100 mcg Metoprolol Succinate (Toprol Xl) 25 mg PO DAILY [facility] Last Admin: 02/23/17 10:45 Dose: 25 mg Metronidazole (Flagyl) 500 mg PO Q8 [facility] Last Admin: 02/23/17 13:55 Dose: 500 mg Pantoprazole Sodium (Protonix Ec Tab) 40 mg PO DAILY [facility] Last Admin: 02/23/17 10:46 Dose: 40 mg Prasugrel (Effient) 10 mg PO DAILY [facility] Last Admin: 02/23/17 10:46 Dose: 10 mg Rosuvastatin Calcium (Crestor) 10 mg PO HS [facility] Last Admin: 02/22/17 22:32 Dose: 10 mg Sevelamer Carbonate (Renvela) 800 mg PO TIDCC [facility] Last Admin: 02/23/17 18:16 Dose: 800 mg - Labs Labs: 02/23/17 06:21 02/23/17 06:21 PT 14.1 SECONDS (9.7-12.2) H 02/15/17 12:13 INR 1.2 02/15/17 12:13 APTT 32 SECONDS (21-34) 02/15/17 12:13
[2017-02-27] MEDS ORDERED: FOSAMAX 35 MG PO SCH (10:00)
== END 2017-02-23 19:45 | disposition home or self-care (01) | DRG 291 ==
LOC: C.ER 11:22 → C.9E 14:25 → C.6T 15:27
PROVIDERS: ADMIT Hospitalist; ATTEND Hospitalist
PROC: 5A09557 Assistance with Respiratory Ventilation, Greater than 96 Consecutive Hours, Continuous Positive Airway Pressure (ICD-10-PCS; principal; 2017-02-15)
PROC: 30233N1 Transfusion of Nonautologous Red Blood Cells into Peripheral Vein, Percutaneous Approach (ICD-10-PCS; 2017-02-21)
DX: I13.0 Hypertensive heart and chronic kidney disease with heart failure and stage 1 through stage 4 chronic kidney disease, or unspecified chronic kidney disease (principal); J18.9 Pneumonia, unspecified organism; N18.4 Chronic kidney disease, stage 4 (severe); J44.0 Chronic obstructive pulmonary disease with (acute) lower respiratory infection; D69.6 Thrombocytopenia, unspecified; E11.22 Type 2 diabetes mellitus with diabetic chronic kidney disease; N17.9 Acute kidney failure, unspecified; Z99.81 Dependence on supplemental oxygen; I50.33 Acute on chronic diastolic (congestive) heart failure; E87.5 Hyperkalemia; Z79.4 Long term (current) use of insulin; E03.9 Hypothyroidism, unspecified; D63.1 Anemia in chronic kidney disease; R09.02 Hypoxemia; G47.33 Obstructive sleep apnea (adult) (pediatric); I27.20 Pulmonary hypertension, unspecified; I73.9 Peripheral vascular disease, unspecified

== ENCOUNTER 2017-09-30 00:11 | Inpatient (IN) | payer MEDICARE ==
[2017-09-30 00:12] VITALS: BMI 35.5
[2017-09-30 00:19] VITALS: RESP 20
--- NOTE | 2017-09-30 01:18 | C.PDOC ---
History Of Present Illness 82 year old female presents to the ER with a complaint of lower back pain for the past 4-5 days that occasionally radiates to the lower extremities. Patient reports she has a Hx of kidney stones in the past. Denies fever, diarrhea, or vomiting. Chief Complaint (Nursing): Back Pain History Per: Patient History/Exam Limitations: no limitations Onset/Duration Of Symptoms: Days Current Symptoms Are (Timing): Still Present Quality Of Discomfort: Unable To Describe Previous Symptoms: None Associated Symptoms: None Exacerbating Factor(s): Movement Recent travel outside of the [employer] States: No Past Medical History Reviewed: Historical Data, Nursing Documentation, Vital Signs Vital Signs: Last Vital Signs Temp 98.1 F 09/30/17 00:17 Pulse 75 09/30/17 03:08 Resp 20 09/30/17 03:08 BP 160/50 H 09/30/17 03:08 Pulse Ox 98 09/30/17 03:19 - Medical History PMH: Anemia, Arthritis, COPD, Diabetes, Gastritis, HTN, Hypothyroidism, Kidney Stones, Peripheral Edema, Pneumonia, Chronic Kidney Disease - [facility] ASSISTANCE WITH RESPIRATORY VENTILATION, 24-96 HRS, CPAP (03/19/17) ASSISTANCE WITH RESPIRATORY VENTILATION, >96 HRS, CPAP (02/15/17) INSERTION OF INFUSION DEV INTO SUP VENA CAVA, PERC APPROACH (03/19/17) INTRODUCTION OF SERUM/TOX/VACCINE INTO MUSCLE, PERC APPROACH (05/27/15) TRANSFUSE NONAUT RED BLOOD CELLS IN PERIPH VEIN, PERC (02/15/17) Family History: States: Unknown Family Hx - Social History Hx Tobacco Use: No Hx Alcohol Use: No Hx Substance Use: No - Immunization History Hx Tetanus Toxoid Vaccination: No Hx Influenza Vaccination: No Hx Pneumococcal Vaccination: No Review Of Systems Constitutional: Negative for: Fever, Chills Cardiovascular: Negative for: Chest Pain, Palpitations Respiratory: Negative for: Shortness of Breath Gastrointestinal: Negative for: Vomiting, Diarrhea Musculoskeletal: Positive for: Back Pain (Radiating to lower extremities) Neurological: Negative for: Weakness, Numbness Physical Exam - Physical Exam Appears: Non-toxic Skin: Normal Color, Warm, Dry Head: Atraumatic, Normacephalic Eye(s): bilateral: Normal Inspection Oral Mucosa: Moist Chest: Symmetrical, No Tenderness Cardiovascular: Rhythm Regular Respiratory: Normal Breath Sounds, No Rales, No Rhonchi, No Wheezing Gastrointestinal/Abdominal: Soft, Tenderness (Mild bilateral lower quadrants), No Guarding, No Rebound Back: CVA Tenderness (Mild), Paraspinal Tenderness (Mild lumbar, worse with movement and palpation) Extremity: Normal ROM (x4) Neurological/Psych: Oriented x3, Normal Speech, Normal Motor, Normal Sensation ED Course And Treatment - Laboratory Results Result Diagrams: 09/30/17 01:13 09/30/17 01:13 ECG: Interpreted By Me, Viewed By Me ECG Rhythm: Sinus Rhythm ECG Interpretation: No Acute Changes Interpretation Of ECG: NSR. possible LVH, borderline tracings. Rate From EC O2 Sat by Pulse Oximetry: 98 (Room air) Pulse Ox Interpretation: Normal Progress Note: CT abd/pel, blood work, and urinalysis ordered. Toradol administered. Case discussed with Dr. Melendrez who agrees with plan to admit and will consult on patient case. Disposition Discussed With : Devan Mojica Doctor Will See Patient In The: Hospital Counseled Patient/Family Regarding: Diagnosis - Disposition Disposition: HOSPITALIZED Disposition Time: 03:18 Condition: STABLE Forms: [facility] ([place]) - POA Present On Arrival: None - Clinical Impression Clinical Impression: Renal insufficiency, Hyperkalemia, Back pain, Spinal stenosis - Scribe Statement The provider has reviewed the documentation as recorded by the Scribe Lamberto Garcia All medical record entries made by the Scribe were at my direction and personally dictated by me. I have reviewed the chart and agree that the record accurately reflects my personal performance of the history, physical exam, medical decision making, and the department course for this patient. I have also personally directed, reviewed, and agree with the discharge instructions and disposition.
[2017-09-30 01:23] LABS: BASO # 0.1 K/uL (0.0-0.2); BASO % 0.5 % (0.0-2.0); EOS % 0.5 % (0.0-4.0); HEMOGLOBIN 9.8 g/dL (11.0-16.0); LYMPH # 1.9 K/uL (1.0-4.3); LYMPH % 18.8 % (20.0-40.0); MEAN CELL VOLUME 93.6 fL (81.0-99.0); MEAN CORPUSCULAR HEMOGLOBIN 30.6 pg (27.0-31.0); MEAN CORPUSCULAR HGB CONC 32.7 g/dL (33.0-37.0); MEAN PLATELET VOLUME 10.1 fL (7.2-11.7); MONO # 2.8 K/uL (0.0-0.8); NEUT # 5.5 K/uL (1.8-7.0); NEUT % 52.8 % (50.0-75.0); NRBC % 0.1 % (0.0-2.0); PLATELET COUNT 145 K/uL (130-400); RED CELL DISTRIBUTION WIDTH 17.3 % (11.5-14.5); WHITE BLOOD COUNT 10.3 K/uL (4.8-10.8)
[2017-09-30 01:24] LABS: MONO % 27.4 % (0.0-10.0)
[2017-09-30 01:30] LABS: ALB/GLOB RATIO 0.9 (1.0-2.1); ALBUMIN 3.9 g/dL (3.5-5.0); ALT/SGPT < 6 U/L (9-52); AST/SGOT 16 U/L (14-36); BLOOD UREA NITROGEN 47 mg/dL (7-17); CALCIUM 9.1 mg/dl (8.6-10.4); GFR AFRICAN-AMERICAN 22; GFR NON-AFRICAN AMERICAN 18
[2017-09-30 01:43] LABS: BANDS 1 % (0-2); BASOPHIL 1 % (0-2); EOSINOPHIL 1 % (0-4); LYMPHOCYTE 17 % (20-40); MONOCYTE 24 % (0-10); NEUTROPHIL 55 % (50-75); PLATELET ESTIMATE NORMAL (NORMAL); REACTIVE LYMPHOCYTES 1 % (0-0); TOTAL CELLS COUNTED 100
[2017-09-30] MEDS ORDERED: Sodium Chloride 0.9% 1,000 ML IV ONE (01:43)
[2017-09-30 01:44] LABS: ANISOCYTOSIS SLIGHT; POLYCHROMIC SLIGHT
[2017-09-30] MEDS ORDERED: Dextrose 50% SYRINGE Inj (50 ml) IV STA (01:44)
[2017-09-30] MEDS ORDERED: (Novolin R) Insulin Human Regular 100 units/ml vial IV ONE (01:45)
[2017-09-30] MEDS ORDERED: Sodium Bicarbonate (8.4%) 50 Meq Syringe IVP STA (01:45)
[2017-09-30] MEDS ORDERED: Sod Polystyrene Sulf 15 gm/60 ml Susp PO STA (01:46)
[2017-09-30] MEDS ORDERED: Sod Polystyrene Sulf 15 gm/60 ml Susp ONE ×2 (01:54→02:02)
[2017-09-30] MEDS ORDERED: Sodium Bicarbonate (8.4%) 50 Meq Syringe ONE (01:55)
[2017-09-30] MEDS ORDERED: Sodium Chloride 0.9% 1,000 ML ONE (01:55)
[2017-09-30] MEDS ORDERED: Dextrose 50% SYRINGE Inj (50 ml) ONE (01:55)
[2017-09-30] MEDS ORDERED: (Novolin R) Insulin Human Regular 100 units/ml vial ONE (01:55)
--- NOTE | 2017-09-30 03:00 | CT ---
EXAM: CT Abdomen and Pelvis Without Intravenous Contrast EXAM DATE/TIME: 09/30/2017 12:54 AM CLINICAL HISTORY: 82 years old, female; Pain; Abdominal pain and other: Lower back pain; Additional info: Severe low back pain, and lower abd TECHNIQUE: Axial computed tomography images of the abdomen and pelvis without intravenous contrast. All CT scans at this facility use one or more dose reduction techniques, viz.: automated exposure control; ma/kV adjustment per patient size (including targeted exams where dose is matched to indication; i.e. head); or iterative reconstruction technique. Coronal and sagittal reformatted images were created and reviewed. COMPARISON: None is available. FINDINGS: LUNG BASES: No significant abnormality seen. SOFT TISSUES: Best seen on image 5 of series 2, there is a 2.4 x 1.4 cm well-defined, low density ovoid soft tissue mass at the T9 level on the right. There is also subtle, ill-defined paraspinal soft tissue at the T12 level, image 17/series 2, which appears in circumferential. ABDOMEN: LIVER: No acute abnormality of the liver identified. GALLBLADDER AND BILE DUCTS: Faint stones or sludge in the gallbladder lumen. No CT evidence of acute cholecystitis. PANCREAS: No CT evidence of acute pancreatitis. SPLEEN: No acute abnormality of the spleen identified. ADRENALS: No acute abnormality of the adrenal glands identified. KIDNEYS AND URETERS: No acute abnormality of the kidneys seen. STOMACH AND BOWEL: Colonic diverticulosis, with no evidence of acute diverticulitis. Otherwise, no significant abnormality of the bowel is identified. No acute abnormality of the stomach or duodenum identified. No evidence of small bowel obstruction. PELVIS: APPENDIX: Normal appendix is not seen, however, there are no significant inflammatory changes visualized in the expected location of the appendix to suggest appendicitis. BLADDER: No acute abnormality of the bladder identified. REPRODUCTIVE:No acute abnormality of the reproductive organs is seen. No acute abnormality of the uterus identified. No evidence of large adnexal masses. ABDOMEN and PELVIS: INTRAPERITONEAL SPACE: No evidence of free intraperitoneal air or fluid. BONES/JOINTS: Severe, chronic-appearing compression fracture of L1. This is associated with marked vertebral flattening and vertebral retropulsion, causing mild spinal canal stenosis. Mild, chronic compression fracture of L3. No evidence of diffuse bony lesions. VASCULATURE: Extensive atherosclerotic calcification. No evidence of abdominal aortic aneurysm. LYMPH NODES: No evidence of diffuse lymphadenopathy. IMPRESSION: - 2.4 cm ovoid, well-defined right paraspinal mass, at the T9 level on the right. This is suspicious for an enlarged lymph node, although a neurogenic tumor can also have this appearance. There is also subtle, ill-defined paraspinal soft tissue at the T12 level, of uncertain etiology. Findings could be further evaluated with PET/CT or thoracic spine MRI. - Severe, chronic compression fracture of L1, associated with vertebral retropulsion, causing mild spinal canal stenosis. - Mild chronic compression fracture of L3. - See above for remaining findings.
[2017-09-30 03:02] LABS: GRANULAR CAST 3 /lpf (0-1); SQUAMOUS EPITHIAL 12 /hpf (0-5); URINE BILIRUBIN NEGATIVE (NEGATIVE); URINE BLOOD NEGATIVE (NEGATIVE); URINE CLARITY Clear (Clear); URINE COLOR Yellow (YELLOW); URINE GLUCOSE (UA) 3+ mg/dL (Normal); URINE LEUKOCYTE ESTERASE 1+ Leu/uL (Negative); URINE PROTEIN NEGATIVE (NEGATIVE); URINE UROBILINOGEN NORMAL mg/dL (0.2-1.0)
[2017-09-30] MEDS ORDERED: Albuterol 0.042% Inhal Sol (1.25 mg/3 mL) UD IH STA (03:16)
--- NOTE | 2017-09-30 04:41 | CP.PCM.HP ---
<Reyes Morasselliot Marroquin - Last Filed: 09/30/17 05:55> History of Present Illness - History of Present Illness History of Present Illness: CC: "lower back pain" HPI: 82 year old female with pmh DM, CKD, COPD, hypothyroidism, HTN, HLD, PVD, and anemia comes to the ER for lower back pain [id number]. Pain started when she reached out to hand her daughter a bag full of clothes. The pain is described as a throbbing and cramping pain located in the right lumbar region. The pain does not radiate. The pain was rated as 10/10 but after receiving medications in the ED she reports the pain has resolved. The pain would worsen after sitting for a long time and at night she would experience a shock-like feeling. Patient states that she feels a numbness and tingling in the same area as the pain, but there is no numbness, tingling, or weakness in her extremities. Patient also denies chest pain, shortness of breath, abdominal pain, nausea, vomiting, diarrhea, urinary incontinence, and saddle anesthesia. PMD: Dr. Clements Past Medical History: DM, HTN, HLD, PVD, CKD, COPD, hypothyroidism, anemia, kidney stones Past Surgical History: cardiac cath in January 2017 due to elevated enzymes, stents placed in leg Medications: Crestor 10mg, Fenofibrate 48mg, Prasugrel 10mg, Metoprolol 50mg, Alendronate 35mg, Allopurinol 100mg, Duoneb, prednisolone 20mg, Levothyroxine 100mcg, furosemide 20mg, Glimepiride 2mg sometimes once a week (she states she does not take her diabetes medications as indicated because she becomes very hypoglycemic), Hydrochlorothiazide 12.5mg Allergies- NKDA Family History: father was healthy and at 99, mother had diabetes, HLD, and hypothyroidism and at 96 Social History: denies alcohol, tobacco, and illicit drug use Present on Admission - Present on Admission Any Indicators Present on Admission: No Review of Systems - Constitutional Constitutional: absent: Chills, Fever - EENT Eyes: absent: Blurred Vision Nose/Mouth/Throat: absent: Nasal Congestion - Cardiovascular Cardiovascular: absent: Chest Pain, Dyspnea - Respiratory Respiratory: absent: Dyspnea - Gastrointestinal Gastrointestinal: absent: Abdominal Pain, Constipation, Diarrhea, Nausea, Vomiting - Genitourinary Genitourinary: absent: Dysuria - Musculoskeletal Musculoskeletal: Back Pain, Numbness (lower back area where the pain is located lumbar spine) - Neurological Neurological: absent: Dizziness, Headaches - Endocrine Endocrine: absent: Fatigue, Palpitations Past Patient History - Infectious Disease Hx of Infectious Diseases: None - Tetanus Immunizations Tetanus Immunization: Unknown - Past Medical History & Family History Past Medical History?: Yes - Past Social History Smoking Status: Never Smoked - CARDIAC Hx Hypertension: Yes Hx Peripheral Edema: Yes - PULMONARY Hx Chronic Obstructive Pulmonary Disease (COPD): Yes Hx Pneumonia: Yes - NEUROLOGICAL Hx Neurological Disorder: No - HEENT Hx HEENT Problems: Yes Hx Cataracts: Yes Other/Comment: corneal replacement both eyes - RENAL Hx Chronic Kidney Disease: Yes Hx Kidney Stones: Yes - ENDOCRINE/METABOLIC Hx Hypothyroidism: Yes - HEMATOLOGICAL/ONCOLOGICAL Hx Anemia: Yes - INTEGUMENTARY Hx Dermatological Problems: No - MUSCULOSKELETAL/RHEUMATOLOGICAL Hx Arthritis: Yes - GASTROINTESTINAL Hx Gastritis: Yes - GENITOURINARY/GYNECOLOGICAL Hx Genitourinary Disorders: No - PSYCHIATRIC Hx Substance Use: No - SURGICAL HISTORY Hx Surgeries: Yes Other/Comment: vascular stents. bone marrow aspiration - ANESTHESIA Hx Anesthesia: Yes Hx Anesthesia Reactions: No Meds Allergies/Adverse Reactions: Allergies Allergy/AdvReac Type Severity Reaction Status Date / Time No Known Allergies Allergy Verified 03/19/17 06:06 Physical Exam - Constitutional Appears: Non-toxic, No Acute Distress - Head Exam Head Exam: ATRAUMATIC, NORMAL INSPECTION - Eye Exam Eye Exam: EOMI, Normal appearance, PERRL. absent: Scleral icterus Pupil Exam: NORMAL ACCOMODATION - ENT Exam ENT Exam: Mucous Membranes Moist - Respiratory Exam Respiratory Exam: Clear to Auscultation Bilateral, NORMAL BREATHING PATTERN - Cardiovascular Exam Cardiovascular Exam: REGULAR RHYTHM, +S1, +S2 - GI/Abdominal Exam GI & Abdominal Exam: Normal Bowel Sounds, Soft. absent: Tenderness - Extremities Exam Extremities exam: Positive for: normal capillary refill, normal inspection, pedal pulses present. Negative for: pedal edema, tenderness - Back Exam Back exam: tenderness (lumbar spine tenderness ) - Neurological Exam Neurological exam: Alert, Oriented x3 - Expanded Neurological Exam Expanded Sensory exam: Lower Extremity Light Touch: Normal, Upper Extremity Light Touch: Normal Neuro motor strength exam: Left Upper Extremity: 5, Right Upper Extremity: 5, Left Lower Extremity: 5, Right Lower Extremity: 5 - Psychiatric Exam Psychiatric exam: Normal Affect, Normal Mood - Skin Skin Exam: Normal Color Results - Vital Signs Recent Vital Signs: Last Vital Signs Temp 98.1 F 09/30/17 00:17 Pulse 75 09/30/17 03:08 Resp 20 09/30/17 03:08 BP 160/50 H 09/30/17 03:08 Pulse Ox 98 09/30/17 03:22 - Labs Result Diagrams: 09/30/17 01:13 09/30/17 04:29 Labs: Laboratory Results - last 24 hr 09/30/17 09/30/17 09/30/17 01:13 01:13 02:56 WBC 10.3 RBC 3.20 L Hgb 9.8 L Hct 29.9 L MCV 93.6 D MCH 30.6 MCHC 32.7 L RDW 17.3 H Plt Count 145 MPV 10.1 Neut % (Auto) 52.8 Lymph % (Auto) 18.8 L [place] % (Auto) 27.4 H Eos % (Auto) 0.5 Baso % (Auto) 0.5 Neut # (Auto) 5.5 Lymph # (Auto) 1.9 [place] # (Auto) 2.8 H Eos # (Auto) 0.0 Baso # (Auto) 0.1 Neutrophils % (Manual) 55 Band Neutrophils % 1 Lymphocytes % (Manual) 17 L Reactive Lymphs % 1 H Monocytes % (Manual) 24 H Eosinophils % (Manual) 1 Basophils % (Manual) 1 Platelet Estimate Normal Polychromasia Slight Anisocytosis (manual) Slight Sodium 142 Potassium 6.7 H* D Chloride 105 Carbon Dioxide 23 Anion Gap 21 H BUN 47 H Creatinine 2.5 H Est GFR ( Amer) 22 Est GFR (Non-Af Amer) 18 Random Glucose 228 H Calcium 9.1 Total Bilirubin 0.5 AST 16 ALT < 6 L D Alkaline Phosphatase 51 Total Protein 8.2 Albumin 3.9 Globulin 4.3 H Albumin/Globulin Ratio 0.9 L Urine Color Yellow Urine Clarity Clear Urine pH 6.0 Ur Specific [place] 1.010 Urine Protein Negative Urine Glucose (UA) 3+ H Urine Ketones Negative Urine Blood Negative Urine Nitrate Negative Urine Bilirubin Negative Urine Urobilinogen Normal Ur Leukocyte Esterase 1+ H Urine WBC (Auto) 14 H Urine RBC (Auto) 2 Ur Squamous Epith Cells 12 H Granular Casts (Auto) 3 Assessment & Plan - Assessment and Plan (Free Text) Assessment: 1.) Lower Back Pain secondary to L1 compression fracture - CT abd/pelvis: 2.4cm ovid, well-defined right paraspinal mass, at the T9 level on the right. this suspicious for an enlarged lymph node. Ill defined paraspinal soft tissue at the T12 level. Severe chronic compression fracture of L1 associated with vertebral retropulsion, causing mild spinal canal stenosis. Mild chronic compression fracture of L3. - f/u chest xray - Tylenol 650mg prn for pain 2.) Hyperkalemia - K: 6.7 -->4.3 - EKG: NSR - Patient was given 10 units of insulin, 50meq of Sodium bicarb and 50ml of Dextrose in the ER - Continue to monitor 3.) History of DM - Accuchecks - Januvia 25mg daily - Hypoglycemia protocol - f/u A1c 4.) Chronic Renal Failure - BUN/Cr 50/2.2 - Continue to monitor - Discussed with patient to not take ibuprofen due to her renal status 5. History of Diastolic CHF - Echo (03/19/17): LVEF:65%, left ventricular ejection fraction is within the normal range. no regional wall motion abnormalities noted. LV filling pressure is elevated. Mild to moderate valvular aortic stenosis. There is mild to moderate tricuspid regurg. Miltral regurg mild. - Prasugrel 10mg po daily 6.) History of HTN - Continue home medications * Metoprolol Succinate 50mg daily * Norvasc 10mg daily * Lasix 20mg daily * HCTZ 12.5mg bid 7.) History of HLD - Continue home medications * Rosuvastatin 10mg po HS * Fenofibrate 8.) History of Hypothyroid - Continue home medication * Levothyroxine 100mcg po 9.) History of COPD - Duoneb q6prn for shortness of breath 10.) History of Anemia secondary to Chronic renal failure - H/H 9.8/29.9 - Continue to monitor 11.) PVD - History of left lower extremity stent 12.) Prophylaxis - SCDs - Prasugrel 10mg po daily - GI prophylaxis not indicated Case discussed with Dr. Yuinor Mora PGY-1 <Devan Mojica P - Last Filed: 09/30/17 07:46> Results - Vital Signs Recent Vital Signs: Last Vital Signs Temp 98.1 F 09/30/17 05:04 Pulse 91 H 09/30/17 05:04 Resp 20 09/30/17 05:04 BP 154/64 H 09/30/17 05:04 Pulse Ox 95 09/30/17 05:04 - Labs Result Diagrams: 09/30/17 06:20 09/30/17 06:20 Labs: Laboratory Results - last 24 hr 09/30/17 09/30/17 09/30/17 01:13 01:13 02:56 WBC 10.3 RBC 3.20 L Hgb 9.8 L Hct 29.9 L MCV 93.6 D MCH 30.6 MCHC 32.7 L RDW 17.3 H Plt Count 145 MPV 10.1 Neut % (Auto) 52.8 Lymph % (Auto) 18.8 L [place] % (Auto) 27.4 H Eos % (Auto) 0.5 Baso % (Auto) 0.5 Neut # (Auto) 5.5 Lymph # (Auto) 1.9 [place] # (Auto) 2.8 H Eos # (Auto) 0.0 Baso # (Auto) 0.1 Neutrophils % (Manual) 55 Band Neutrophils % 1 Lymphocytes % (Manual) 17 L Reactive Lymphs % 1 H Monocytes % (Manual) 24 H Eosinophils % (Manual) 1 Basophils % (Manual) 1 Platelet Estimate Normal Polychromasia Slight Anisocytosis (manual) Slight Sodium 142 Potassium 6.7 H* D Chloride 105 Carbon Dioxide 23 Anion Gap 21 H BUN 47 H Creatinine 2.5 H Est GFR ( Amer) 22 Est GFR (Non-Af Amer) 18 Random Glucose 228 H Calcium 9.1 Phosphorus Magnesium Total Bilirubin 0.5 AST 16 ALT < 6 L D Alkaline Phosphatase 51 Total Protein 8.2 Albumin 3.9 Globulin 4.3 H Albumin/Globulin Ratio 0.9 L Urine Color Yellow Urine Clarity Clear Urine pH 6.0 Ur Specific [place] 1.010 Urine Protein Negative Urine Glucose (UA) 3+ H Urine Ketones Negative Urine Blood Negative Urine Nitrate Negative Urine Bilirubin Negative Urine Urobilinogen Normal Ur Leukocyte Esterase 1+ H Urine WBC (Auto) 14 H Urine RBC (Auto) 2 Ur Squamous Epith Cells 12 H Granular Casts (Auto) 3 09/30/17 09/30/17 09/30/17 04:29 06:20 06:20 WBC 12.3 H RBC 2.99 L Hgb 9.2 L Hct 27.5 L MCV 91.8 MCH 30.9 MCHC 33.6 RDW 16.7 H Plt Count 124 L D MPV 9.4 Neut % (Auto) 49.4 L Lymph % (Auto) 20.0 [place] % (Auto) 29.7 H Eos % (Auto) 0.5 Baso % (Auto) 0.4 Neut # (Auto) 6.1 Lymph # (Auto) 2.5 [place] # (Auto) 3.7 H Eos # (Auto) 0.1 Baso # (Auto) 0.1 Neutrophils % (Manual) Band Neutrophils % Lymphocytes % (Manual) Reactive Lymphs % Monocytes % (Manual) Eosinophils % (Manual) Basophils % (Manual) Platelet Estimate Polychromasia Anisocytosis (manual) Sodium 143 143 Potassium 4.3 4.2 Chloride 107 106 Carbon Dioxide 25 25 Anion Gap 16 17 BUN 50 H 48 H Creatinine 2.2 H 2.2 H Est GFR ( Amer) 26 26 Est GFR (Non-Af Amer) 21 21 Random Glucose 94 131 H Calcium 9.3 9.1 Phosphorus 3.7 Magnesium 2.7 H Total Bilirubin 0.5 AST 19 ALT 16 Alkaline Phosphatase 46 Total Protein 7.0 Albumin 3.3 L Globulin 3.6 Albumin/Globulin Ratio 0.9 L Urine Color Urine Clarity Urine pH Ur Specific [place] Urine Protein Urine Glucose (UA) Urine Ketones Urine Blood Urine Nitrate Urine Bilirubin Urine Urobilinogen Ur Leukocyte Esterase Urine WBC (Auto) Urine RBC (Auto) Ur Squamous Epith Cells Granular Casts (Auto) Attending/Attestation - Attestation I have personally seen and examined this patient.: Yes I have fully participated in the care of the patient.: Yes I have reviewed all pertinent clinical information: Yes Notes (Text): Assessment Compression fracture of L1 and L3 not present in feb 2017, with c/o back pain, improved in ER, no neurologic deficit Hyperkalemia suspected either error or pt on ACEI, even though she is saying stopped taking 2 wks back [facility] meds cleared out as above, Amlodipine 10mg, metoprolol er 50mg daily, allopurinol 100mg daily, lasix 20mg daily, hctz 12.5mg dialy, occasionally takes glimipride about 1/wk of 2mg, asked to stop and rather take januvia 25mg daily, doesn't take lantus, Allendronate, Nodule next to t9 H/o , h/o chf CRI Taking NSAIDS regularly counselled about it she should not take it, tylenol/ tramadol could be used as alternatives. Plan Lab check PT MRI of spine januvia 25mg daily Counselled about [facility] pharmacy Gi/dvt prophylaxis
[2017-09-30 04:54] LABS: CALCIUM 9.3 mg/dl (8.6-10.4)
[2017-09-30] MEDS ORDERED: Glucagon Recombinant 1 mg Inj IM PRN (04:57)
[2017-09-30] MEDS ORDERED: Dextrose 50% SYRINGE Inj (50 ml) IV PRN (04:57)
[2017-09-30] MEDS ORDERED: Albuterol-Ipratrop 3 mg / 0.5 (3 ml) UD INH PRN (05:42)
[2017-09-30] MEDS: Levothyroxine 100 MCG TAB PO SCH (05:56)
[2017-09-30 06:30] LABS: BASO # 0.1 K/uL (0.0-0.2); BASO % 0.4 % (0.0-2.0); EOS # 0.1 K/uL (0.0-0.7); EOS % 0.5 % (0.0-4.0); HEMOGLOBIN 9.2 g/dL (11.0-16.0); LYMPH # 2.5 K/uL (1.0-4.3); MEAN CELL VOLUME 91.8 fL (81.0-99.0); MEAN CORPUSCULAR HEMOGLOBIN 30.9 pg (27.0-31.0); MEAN CORPUSCULAR HGB CONC 33.6 g/dL (33.0-37.0); MEAN PLATELET VOLUME 9.4 fL (7.2-11.7); MONO # 3.7 K/uL (0.0-0.8); MONO % 29.7 % (0.0-10.0); NEUT # 6.1 K/uL (1.8-7.0); NEUT % 49.4 % (50.0-75.0); PLATELET COUNT 124 K/uL (130-400); RBC 2.99 Mil/uL (3.80-5.20); RED CELL DISTRIBUTION WIDTH 16.7 % (11.5-14.5); WHITE BLOOD COUNT 12.3 K/uL (4.8-10.8)
[2017-09-30 06:42] LABS: ALB/GLOB RATIO 0.9 (1.0-2.1); ALBUMIN 3.3 g/dL (3.5-5.0); CALCIUM 9.1 mg/dl (8.6-10.4)
--- NOTE | 2017-09-30 08:07 | RAD ---
Chest x-ray single frontal view History: Hyperkalemia. Renal failure. Comparison: 03/22/2017 Findings: Diffuse increased interstitial lung markings suggestive for venous congestion versus edema versus infiltrate. Clinical correlation. Elevated left hemidiaphragm. Linear consolidative changes at the left lung base. Tortuous ectatic aorta. Calcification at the aortic knob. Mild cardiomegaly. Degenerative changes in the spine and shoulders. Impression: Diffuse increased interstitial lung markings suggestive for venous congestion versus edema versus infiltrate. Clinical correlation. Elevated left hemidiaphragm. Linear consolidative changes at the left lung base. Tortuous ectatic aorta. Calcification at the aortic knob. Mild cardiomegaly.
[2017-09-30] MEDS ORDERED: Morphine 4 MG/ML VIAL IVP PRN (08:28)
[2017-09-30 08:52] LABS: BANDS 4 % (0-2); LYMPHOCYTE 29 % (20-40); MONOCYTE 7 % (0-10); NEUTROPHIL 60 % (50-75); TOTAL CELLS COUNTED 100
[2017-09-30 08:53] LABS: PLATELET ESTIMATE SLIGHTLY DECREASED (NORMAL)
[2017-09-30 08:55] LABS: ANISOCYTOSIS SLIGHT; HYPOCHROMIC SLIGHT
--- NOTE | 2017-09-30 09:31 | CP.PCM.CON ---
History of Present Illness - History of Present Illness History of Present Illness: 82 year old female with pmh DM, CKD, COPD, hypothyroidism, HTN, HLD, PVD, and anemia comes to the ER for lower back pain [id number]. Pain started when she reached out to hand her daughter a bag full of clothes. The pain is described as a throbbing and cramping pain located in the right lumbar region. The pain does not radiate. The pain was rated as 10/10 but after receiving medications in the ED she reports the pain has resolved. The pain would worsen after sitting for a long time and at night she would experience a shock-like feeling. Patient states that she feels a numbness and tingling in the same area as the pain, but there is no numbness, tingling, or weakness in her extremities. Patient also denies chest pain, shortness of breath, abdominal pain, nausea, vomiting, diarrhea, urinary incontinence, and saddle anesthesia. Patient took multiple doses of nsaids for back pain relief over past week. 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, history of hyperkalemia in past - taken off of arb Past Medical History: DM, HTN, HLD, PVD, CKD, COPD, hypothyroidism, anemia, kidney stones Past Surgical History: cardiac cath in January 2017 due to elevated enzymes, stents placed in leg Medications: Crestor 10mg, Fenofibrate 48mg, Prasugrel 10mg, Metoprolol 50mg, Alendronate 35mg, Allopurinol 100mg, Duoneb, prednisolone 20mg, Levothyroxine 100mcg, furosemide 20mg, Glimepiride 2mg sometimes once a week (she states she does not take her diabetes medications as indicated because she becomes very hypoglycemic), Hydrochlorothiazide 12.5mg Allergies- NKDA Family History: father was healthy and at 99, mother had diabetes, HLD, and hypothyroidism and at 96 Social History: denies alcohol, tobacco, and illicit drug use Review of Systems - Constitutional Constitutional: absent: Fatigue, Fever, Headache - EENT Eyes: absent: Diplopia, Dry Eye Ears: absent: Decreased Hearing, Dizziness Nose/Mouth/Throat: absent: Bleeding Gums, Dry Mouth, Throat Swelling - Cardiovascular Cardiovascular: absent: Chest Pain with Activity, Dyspnea, Edema, Syncope - Respiratory Respiratory: absent: Cough, Dyspnea, Wheezing - Gastrointestinal Gastrointestinal: Diarrhea. absent: Abdominal Pain, Constipation - Musculoskeletal Musculoskeletal: Back Pain. absent: Muscle Weakness, Myalgias - Integumentary Integumentary: absent: New Lesions, Rash, Skin Ulcer - Neurological Neurological: absent: Convulsions, Dizziness, Headaches, Syncope, Tingling - Psychiatric Psychiatric: absent: Confusion, Depression - Endocrine Endocrine: absent: Cold Intolorance, Flushing, Heat Intolorance - Hematologic/Lymphatic Hematologic: absent: Easy Bleeding, Easy Bruising Past Patient History - Infectious Disease Hx of Infectious Diseases: None - Tetanus Immunizations Tetanus Immunization: Unknown - Past Medical History & Family History Past Medical History?: Yes - Past Social History Smoking Status: Never Smoked - CARDIAC Hx Hypertension: Yes Hx Peripheral Edema: Yes - PULMONARY Hx Chronic Obstructive Pulmonary Disease (COPD): Yes Hx Pneumonia: Yes - NEUROLOGICAL Hx Neurological Disorder: No - HEENT Hx HEENT Problems: Yes Hx Cataracts: Yes Other/Comment: corneal replacement both eyes - RENAL Hx Chronic Kidney Disease: Yes Hx Kidney Stones: Yes - ENDOCRINE/METABOLIC Hx Hypothyroidism: Yes - HEMATOLOGICAL/ONCOLOGICAL Hx Anemia: Yes - INTEGUMENTARY Hx Dermatological Problems: No - MUSCULOSKELETAL/RHEUMATOLOGICAL Hx Arthritis: Yes - GASTROINTESTINAL Hx Gastritis: Yes - GENITOURINARY/GYNECOLOGICAL Hx Genitourinary Disorders: No - PSYCHIATRIC Hx Substance Use: No - SURGICAL HISTORY Hx Surgeries: Yes Other/Comment: vascular stents. bone marrow aspiration - ANESTHESIA Hx Anesthesia: Yes Hx Anesthesia Reactions: No Meds Allergies/Adverse Reactions: Allergies Allergy/AdvReac Type Severity Reaction Status Date / Time No Known Allergies Allergy Verified 03/19/17 06:06 - Medications Medications: Current Medications Acetaminophen (Tylenol 325mg Tab) 650 mg PO Q6 PRN PRN Reason: Pain, moderate (4-7) Albuterol/Ipratropium (Duoneb 3 Mg/0.5 Mg (3 Ml) Ud) 3 ml INH RQ6 PRN PRN Reason: Shortness of Breath Allopurinol (Zyloprim) 100 mg PO DAILY [facility] Amlodipine Besylate (Norvasc) 10 mg PO DAILY [facility] Dextrose (Dextrose 50% Inj) 0 ml IV STAT PRN; Protocol PRN Reason: Hypoglycemia Protocol Dextrose (Glutose 15) 0 gm PO ONCE PRN; Protocol PRN Reason: Hypoglycemia Protocol Fenofibrate (Tricor) 48 mg PO QPM [facility] Furosemide (Lasix) 20 mg PO DAILY [facility] Glucagon (Glucagen Diagnostic Kit) 0 mg IM STAT PRN; Protocol PRN Reason: Hypoglycemia Protocol Hydrochlorothiazide (Microzide) 12.5 mg PO DAILY [facility] Sodium Chloride (Sodium Chloride 0.9%) 1,000 mls @ 100 mls/hr IV .Q10H ONE Stop: 09/30/17 11:42 Last Admin: 09/30/17 02:03 Dose: 100 mls/hr Dextrose (Dextrose 5% In Water 1000 Ml) 1,000 mls @ 0 mls/hr IV .Q0M PRN; Protocol; Per Protocol PRN Reason: Hypoglycemia Protocol Levothyroxine Sodium (Synthroid) 100 mcg PO DAILY@0630 [facility] Last Admin: 09/30/17 05:56 Dose: 100 mcg Metoprolol Succinate (Toprol Xl) 50 mg PO DAILY [facility] Morphine Sulfate (Morphine) 1 mg IVP PRN PRN PRN Reason: Pain, severe (8-10) Last Admin: 09/30/17 08:57 Dose: 1 mg Prasugrel (Effient) 10 mg PO DAILY [facility] Rosuvastatin Calcium (Crestor) 10 mg PO HS [facility] Sitagliptin Phosphate (Januvia) 25 mg PO DAILY [facility] Physical Exam - Constitutional Appears: Well, Non-toxic - Head Exam Head Exam: ATRAUMATIC, NORMAL INSPECTION - Eye Exam Eye Exam: EOMI, Normal appearance - ENT Exam ENT Exam: Mucous Membranes Moist, Normal Oropharynx - Neck Exam Neck exam: Positive for: Normal Inspection. Negative for: Lymphadenopathy, Thyromegaly - Respiratory Exam Respiratory Exam: Clear to Auscultation Bilateral. absent: Rhonchi, Wheezes - Cardiovascular Exam Cardiovascular Exam: REGULAR RHYTHM, +S1, +S2. absent: JVD, Rubs - GI/Abdominal Exam GI & Abdominal Exam: Normal Bowel Sounds, Soft - Extremities Exam Extremities exam: Negative for: joint swelling, pedal edema - Back Exam Back exam: absent: CVA tenderness (L), CVA tenderness (R) - Neurological Exam Neurological exam: Alert, Oriented x3 - Psychiatric Exam Psychiatric exam: Normal Affect, Normal Mood - Skin Skin Exam: Dry, Intact, Normal Color Results - Vital Signs Recent Vital Signs: Last Vital Signs Temp 97.8 F 09/30/17 08:58 Pulse 82 09/30/17 08:58 Resp 20 09/30/17 08:58 BP 151/57 H 09/30/17 08:58 Pulse Ox 94 L 09/30/17 08:58 - Labs Result Diagrams: 09/30/17 06:20 09/30/17 06:20 Labs: Laboratory Results - last 24 hr 09/30/17 09/30/17 09/30/17 01:13 01:13 02:56 WBC 10.3 RBC 3.20 L Hgb 9.8 L Hct 29.9 L MCV 93.6 D MCH 30.6 MCHC 32.7 L RDW 17.3 H Plt Count 145 MPV 10.1 Neut % (Auto) 52.8 Lymph % (Auto) 18.8 L [place] % (Auto) 27.4 H Eos % (Auto) 0.5 Baso % (Auto) 0.5 Neut # (Auto) 5.5 Lymph # (Auto) 1.9 [place] # (Auto) 2.8 H Eos # (Auto) 0.0 Baso # (Auto) 0.1 Neutrophils % (Manual) 55 Band Neutrophils % 1 Lymphocytes % (Manual) 17 L Reactive Lymphs % 1 H Monocytes % (Manual) 24 H Eosinophils % (Manual) 1 Basophils % (Manual) 1 Platelet Estimate Normal Polychromasia Slight Hypochromasia (manual) Anisocytosis (manual) Slight Sodium 142 Potassium 6.7 H* D Chloride 105 Carbon Dioxide 23 Anion Gap 21 H BUN 47 H Creatinine 2.5 H Est GFR ( Amer) 22 Est GFR (Non-Af Amer) 18 Random Glucose 228 H Calcium 9.1 Phosphorus Magnesium Total Bilirubin 0.5 AST 16 ALT < 6 L D Alkaline Phosphatase 51 Total Protein 8.2 Albumin 3.9 Globulin 4.3 H Albumin/Globulin Ratio 0.9 L Urine Color Yellow Urine Clarity Clear Urine pH 6.0 Ur Specific [place] 1.010 Urine Protein Negative Urine Glucose (UA) 3+ H Urine Ketones Negative Urine Blood Negative Urine Nitrate Negative Urine Bilirubin Negative Urine Urobilinogen Normal Ur Leukocyte Esterase 1+ H Urine WBC (Auto) 14 H Urine RBC (Auto) 2 Ur Squamous Epith Cells 12 H Granular Casts (Auto) 3 09/30/17 09/30/17 09/30/17 04:29 06:20 06:20 WBC 12.3 H RBC 2.99 L Hgb 9.2 L Hct 27.5 L MCV 91.8 MCH 30.9 MCHC 33.6 RDW 16.7 H Plt Count 124 L D MPV 9.4 Neut % (Auto) 49.4 L Lymph % (Auto) 20.0 [place] % (Auto) 29.7 H Eos % (Auto) 0.5 Baso % (Auto) 0.4 Neut # (Auto) 6.1 Lymph # (Auto) 2.5 [place] # (Auto) 3.7 H Eos # (Auto) 0.1 Baso # (Auto) 0.1 Neutrophils % (Manual) 60 Band Neutrophils % 4 H Lymphocytes % (Manual) 29 Reactive Lymphs % Monocytes % (Manual) 7 Eosinophils % (Manual) Basophils % (Manual) Platelet Estimate Slightly decreased L Polychromasia Hypochromasia (manual) Slight Anisocytosis (manual) Slight Sodium 143 143 Potassium 4.3 4.2 Chloride 107 106 Carbon Dioxide 25 25 Anion Gap 16 17 BUN 50 H 48 H Creatinine 2.2 H 2.2 H Est GFR ( Amer) 26 26 Est GFR (Non-Af Amer) 21 21 Random Glucose 94 131 H Calcium 9.3 9.1 Phosphorus 3.7 Magnesium 2.7 H Total Bilirubin 0.5 AST 19 ALT 16 Alkaline Phosphatase 46 Total Protein 7.0 Albumin 3.3 L Globulin 3.6 Albumin/Globulin Ratio 0.9 L Urine Color Urine Clarity Urine pH Ur Specific [place] Urine Protein Urine Glucose (UA) Urine Ketones Urine Blood Urine Nitrate Urine Bilirubin Urine Urobilinogen Ur Leukocyte Esterase Urine WBC (Auto) Urine RBC (Auto) Ur Squamous Epith Cells Granular Casts (Auto) Assessment & Plan (1) CKD stage 4 secondary to hypertension Status: Acute (2) Dyslipidemia Status: Acute (3) Back pain Status: Acute (4) Hyperkalemia Status: Acute (5) LUCRECIA (acute kidney injury) Status: Acute (6) Anemia Status: Chronic Priority: Medium - Assessment and Plan (Free Text) Assessment: Acute kidney injury due to volume depletion and nsaid use Hyperkalemia due to above Clinically responded to medical management Plan for mri noted Daily chemistry Bp stable, continue current meds No nsaids for pain IVF if diarrhea persists and unable to tolerate full diet
[2017-09-30] MEDS: Metoprolol Succinate 50 mg XL Tab PO SCH (10:52)
--- NOTE | 2017-09-30 13:55 | CP.PCM.PN ---
<Annia Monique - Last Filed: 09/30/17 17:46> Subjective - Date & Time of Evaluation Date of Evaluation: 09/30/17 Time of Evaluation: 08:00 - Subjective Subjective: PGY 2 medicine progress note for Dr Joanne Abernathy: Patient was seen and examined at bedside. Family was present. Patient admitted to back pain. She is tolerating normal diet and having regular bowel movements. Denied fever/chills and all other complaints. Objective - Vital Signs/Intake and Output Vital Signs (last 24 hours): Temp Pulse Resp BP Pulse Ox 97.8 F 77 20 159/61 H 94 L 09/30/17 08:58 09/30/17 12:27 09/30/17 08:58 09/30/17 10:51 09/30/17 08:58 - Medications Medications: Current Medications Acetaminophen (Tylenol 325mg Tab) 650 mg PO Q6 PRN PRN Reason: Pain, moderate (4-7) Albuterol/Ipratropium (Duoneb 3 Mg/0.5 Mg (3 Ml) Ud) 3 ml INH RQ6 PRN PRN Reason: Shortness of Breath Allopurinol (Zyloprim) 100 mg PO DAILY [facility] Last Admin: 09/30/17 10:52 Dose: 100 mg Amlodipine Besylate (Norvasc) 10 mg PO DAILY [facility] Last Admin: 09/30/17 10:52 Dose: 10 mg Dextrose (Dextrose 50% Inj) 0 ml IV STAT PRN; Protocol PRN Reason: Hypoglycemia Protocol Dextrose (Glutose 15) 0 gm PO ONCE PRN; Protocol PRN Reason: Hypoglycemia Protocol Fenofibrate (Tricor) 48 mg PO QPM [facility] Furosemide (Lasix) 20 mg PO DAILY [facility] Last Admin: 09/30/17 10:51 Dose: 20 mg Glucagon (Glucagen Diagnostic Kit) 0 mg IM STAT PRN; Protocol PRN Reason: Hypoglycemia Protocol Hydrochlorothiazide (Microzide) 12.5 mg PO DAILY [facility] Last Admin: 09/30/17 10:52 Dose: 12.5 mg Dextrose (Dextrose 5% In Water 1000 Ml) 1,000 mls @ 0 mls/hr IV .Q0M PRN; Protocol; Per Protocol PRN Reason: Hypoglycemia Protocol Insulin Human Regular (Novolin R) 0 unit SC ACHS [facility] PRN Reason: Protocol Levothyroxine Sodium (Synthroid) 100 mcg PO DAILY@0630 [facility] Last Admin: 09/30/17 05:56 Dose: 100 mcg Metoprolol Succinate (Toprol Xl) 50 mg PO DAILY [facility] Last Admin: 09/30/17 10:52 Dose: 50 mg Morphine Sulfate (Morphine) 1 mg IVP PRN PRN PRN Reason: Pain, severe (8-10) Last Admin: 09/30/17 08:57 Dose: 1 mg Prasugrel (Effient) 10 mg PO DAILY [facility] Last Admin: 09/30/17 10:52 Dose: 10 mg Rosuvastatin Calcium (Crestor) 10 mg PO [facility] Sitagliptin Phosphate (Januvia) 25 mg PO DAILY [facility] Last Admin: 09/30/17 10:52 Dose: 25 mg - Labs Labs: 09/30/17 06:20 09/30/17 06:20 - Constitutional Appears: Non-toxic, No Acute Distress - Head Exam Head Exam: ATRAUMATIC, NORMAL INSPECTION - Eye Exam Eye Exam: EOMI, PERRL Pupil Exam: NORMAL ACCOMODATION - ENT Exam ENT Exam: Mucous Membranes Moist - Respiratory Exam Respiratory Exam: Clear to Ausculation Bilateral, NORMAL BREATHING PATTERN. absent: Respiratory Distress - Cardiovascular Exam Cardiovascular Exam: REGULAR RHYTHM, +S1, +S2 - GI/Abdominal Exam GI & Abdominal Exam: Soft, Normal Bowel Sounds. absent: Distended, Firm, Guarding, Tenderness - Back Exam Back Exam: paraspinal tenderness, tenderness - Neurological Exam Neurological Exam: Alert, Awake, CN II-XII Intact, Oriented x3 - Psychiatric Exam Psychiatric exam: Normal Affect, Normal Mood Assessment and Plan - Assessment and Plan (Free Text) Assessment: Compression fracture - CT abd/pelvis: 2.4cm ovid, well-defined right paraspinal mass, at the T9 level on the right. this suspicious for an enlarged lymph node. Ill defined paraspinal soft tissue at the T12 level. Severe chronic compression fracture of L1 associated with vertebral retropulsion, causing mild spinal canal stenosis. Mild chronic compression fracture of L3. - f/u chest xray - venous congestion, linear consolidative changes, tortuous ectatic aorta, calcific changes - Tylenol 650mg prn for pain - Will need to take calcium citrate 1600mg and 800 Vit D daily - f/u thoracic and lumbar spine MRI Leukocytosis afebrile WBC 12.3, 4 bands f/u blood and urine cultures Hyperkalemia - Resolved - K: 6.7 -->4.3 - EKG: NSR - Patient was given 10 units of insulin, 50meq of Sodium bicarb and 50ml of Dextrose in the ER - Continue to monitor - Could have been from PRASANNA use or lab error History of DM - Accuchecks - Januvia 25mg daily - Hypoglycemia protocol - f/u A1c - Patient apparently on Glimepride at home but reports noncompliance and also episodes of hypoglycemia. Chronic Renal Failure - BUN/Cr 50/2.2 - Continue to monitor - Discussed with patient to not take ibuprofen due to her renal status - Nephrology consulted - help appreciated History of Diastolic CHF - Echo (03/19/17): LVEF:65%, left ventricular ejection fraction is within the normal range. no regional wall motion abnormalities noted. LV filling pressure is elevated. Mild to moderate valvular aortic stenosis. There is mild to moderate tricuspid regurg. Miltral regurg mild. - Prasugrel 10mg po daily HTN - Continue home medications * Metoprolol Succinate 50mg daily * Norvasc 10mg daily * Lasix 20mg daily * HCTZ 12.5mg bid HLD - Continue home medications * Rosuvastatin 10mg po HS * Fenofibrate Hypothyroid - Continue home medication * Levothyroxine 100mcg po COPD - Duoneb q6prn for shortness of breath Anemia secondary to Chronic renal failure - H/H 9.8/29.9 - Continue to monitor PVD - History of left lower extremity stent Prophylaxis - SCDs - Prasugrel 10mg po daily - GI prophylaxis not indicated <Pawel Abernathy - Last Filed: 10/01/17 23:05> Objective - Vital Signs/Intake and Output Vital Signs (last 24 hours): Temp Pulse Resp BP Pulse Ox 98.4 F 77 20 148/62 96 09/30/17 23:35 10/01/17 07:35 09/30/17 23:35 10/01/17 09:13 09/30/17 23:35 - Labs Labs: 10/01/17 08:37 10/01/17 08:37 Attending/Attestation - Attestation I have personally seen and examined this patient.: Yes I have fully participated in the care of the patient.: Yes I have reviewed all pertinent clinical information, including history, physical exam and plan: Yes Notes (Text): 10/01/17 23:04 Patient was seen and examine with the resident on 09/30/17. Pawel Abernathy D.O.
[2017-09-30] MEDS: (Novolin R) Insulin Human Regular 100 units/ml vial SC SCH ×2 (17:39→22:47)
[2017-10-01 01:54] VITALS: TEMP 98.4; O2SAT 96
[2017-10-01] MEDS: Levothyroxine 100 MCG TAB PO SCH (05:34)
[2017-10-01] MEDS: (Novolin R) Insulin Human Regular 100 units/ml vial SC SCH (07:47)
[2017-10-01 08:27] VITALS: PULSE 77
[2017-10-01 08:40] LABS: BASO % 0.2 % (0.0-2.0); EOS # 0.1 K/uL (0.0-0.7); EOS % 0.7 % (0.0-4.0); HEMOGLOBIN 9.3 g/dL (11.0-16.0); LYMPH # 2.2 K/uL (1.0-4.3); LYMPH % 19.6 % (20.0-40.0); MEAN CELL VOLUME 92.2 fL (81.0-99.0); MEAN CORPUSCULAR HEMOGLOBIN 30.8 pg (27.0-31.0); MEAN CORPUSCULAR HGB CONC 33.4 g/dL (33.0-37.0); MEAN PLATELET VOLUME 9.1 fL (7.2-11.7); MONO # 2.7 K/uL (0.0-0.8); MONO % 23.9 % (0.0-10.0); NEUT # 6.2 K/uL (1.8-7.0); NEUT % 55.6 % (50.0-75.0); PLATELET COUNT 144 K/uL (130-400); RBC 3.03 Mil/uL (3.80-5.20); RED CELL DISTRIBUTION WIDTH 16.7 % (11.5-14.5); WHITE BLOOD COUNT 11.2 K/uL (4.8-10.8)
[2017-10-01 09:05] LABS: ALB/GLOB RATIO 0.9 (1.0-2.1); ALBUMIN 3.3 g/dL (3.5-5.0); CALCIUM 8.7 mg/dl (8.6-10.4)
[2017-10-01] MEDS: Metoprolol Succinate 50 mg XL Tab PO SCH (09:14)
[2017-10-01 09:15] VITALS: BP 148/62
--- NOTE | 2017-10-01 09:56 | MRI ---
PROCEDURE: MR THORACIC SPINE WITHOUT CONTRAST HISTORY: paraspinal tumor, compression nodule. History of back pain COMPARISON: Comparison is made to the previous CT of the chest without contrast dated 02/16/2017 TECHNIQUE: Multiecho multiplanar sequences were performed through the thoracic spine without the use of intravenous contrast. FINDINGS: ALIGNMENT: Normal thoracic spinal alignment. Normal thoracic kyphosis. VERTEBRA: There is mild compression deformity at the superior endplate of T12 associated with bone marrow edema suggestive of recent fracture. Severe compression deformity of L1 vertebral body is also noted. Abnormal signal at the T6-T7 T10-T12 suggestive of endplate degenerative changes. MARROW: Foci of increased signal at the endplates likely due to degenerative changes. There is a focal hyperintense T2-1 and T2 seen at the anterior aspect of T2 vertebral body likely represent benign hemangioma. No evidence of destructive bony lesion. PARASPINAL SOFT TISSUES: There is well defined soft tissue mass lesion to the right of T9 measures 2.2 centimeter in the AP diameter and 1.6 centimeter in the transverse diameter. This lesion was seen in retrospect in the previous CT of the chest without contrast dated 02/16/2017 and has not significantly changed in size and shape since the previous exam. CORD: No evidence of cord compression. DISCS: Multilevel moderate to mildly severe degenerative disc changes more prominent at C6-C7 and T10-T11. Multilevel small posterior disc bulge osteophyte complex more prominent at the lower thoracic spine. OTHER FINDINGS: Incidentally noted is dilated esophagus contains fluid and debris is in the distal portion. IMPRESSION: Well defined soft tissue mass lesion to the right of T9 vertebral body measures 2.2 x 1.6 centimeter noted in retrospect in the previous CT of the chest dated 02/16/2017. The possibility of malignant neoplasm is not totally excluded. Mild recent compression deformity of T12 superior endplate noted associated with bone marrow edema. Severe compression deformity of L1 vertebral body. Heterogeneous bone marrow signal without evidence of discrete destructive mass lesion. Possible hemangioma in the anterior aspect of T2. Moderate to mildly severe degenerative disc changes more prominent at T6-T7 and T10-T11. Preliminary report was submitted by the virtual Radiology.
--- NOTE | 2017-10-01 10:49 | CP.PCM.DIS ---
<KaydenAnnia - Last Filed: 10/01/17 11:06> Provider - Provider Date of Admission: 09/30/17 03:19 Attending physician: Pawel Abernathy MD Primary care physician: Dr. Fuentes Clements Consults: Dr. Leach - nephrology Time Spent in preparation of Discharge (in minutes): 35 Diagnosis - Discharge Diagnosis (1) Compression fracture Status: Acute (2) Spinal cord mass Status: Acute (3) CKD stage 4 secondary to hypertension Status: Acute (4) HTN (hypertension) Status: Acute (5) Hypothyroidism Status: Acute (6) Type 2 diabetes mellitus with diabetic nephropathy Status: Acute Hospital Course - Lab Results Lab Results: Most Recent Lab Values WBC 11.2 K/uL (4.8-10.8) H 10/01/17 08:37 RBC 3.03 Mil/uL (3.80-5.20) L 10/01/17 08:37 Hgb 9.3 g/dL (11.0-16.0) L 10/01/17 08:37 Hct 27.9 % (34.0-47.0) L 10/01/17 08:37 MCV 92.2 fL (81.0-99.0) 10/01/17 08:37 MCH 30.8 pg (27.0-31.0) 10/01/17 08:37 MCHC 33.4 g/dL (33.0-37.0) 10/01/17 08:37 RDW 16.7 % (11.5-14.5) H 10/01/17 08:37 Plt Count 144 K/uL (130-400) 10/01/17 08:37 MPV 9.1 fL (7.2-11.7) 10/01/17 08:37 Neut % (Auto) 55.6 % (50.0-75.0) 10/01/17 08:37 Lymph % (Auto) 19.6 % (20.0-40.0) L 10/01/17 08:37 [place] % (Auto) 23.9 % (0.0-10.0) H 10/01/17 08:37 Eos % (Auto) 0.7 % (0.0-4.0) 10/01/17 08:37 Baso % (Auto) 0.2 % (0.0-2.0) 10/01/17 08:37 Neut # (Auto) 6.2 K/uL (1.8-7.0) 10/01/17 08:37 Lymph # (Auto) 2.2 K/uL (1.0-4.3) 10/01/17 08:37 [place] # (Auto) 2.7 K/uL (0.0-0.8) H 10/01/17 08:37 Eos # (Auto) 0.1 K/uL (0.0-0.7) 10/01/17 08:37 Baso # (Auto) 0.0 K/uL (0.0-0.2) 10/01/17 08:37 Neutrophils % (Manual) 60 % (50-75) 09/30/17 06:20 Band Neutrophils % 4 % (0-2) H 09/30/17 06:20 Lymphocytes % (Manual) 29 % (20-40) 09/30/17 06:20 Reactive Lymphs % 1 % (0-0) H 09/30/17 01:13 Monocytes % (Manual) 7 % (0-10) 09/30/17 06:20 Eosinophils % (Manual) 1 % (0-4) 09/30/17 01:13 Basophils % (Manual) 1 % (0-2) 09/30/17 01:13 Platelet Estimate Slightly decreased (NORMAL) L 09/30/17 06:20 Polychromasia Slight 09/30/17 01:13 Hypochromasia (manual) Slight 09/30/17 06:20 Anisocytosis (manual) Slight 09/30/17 06:20 Sodium 142 mmol/L (132-148) 10/01/17 08:37 Potassium 4.2 mmol/L (3.6-5.2) 10/01/17 08:37 Chloride 106 mmol/L (98-107) 10/01/17 08:37 Carbon Dioxide 27 mmol/L (22-30) 10/01/17 08:37 Anion Gap 13 (10-20) 10/01/17 08:37 BUN 38 mg/dL (7-17) H 10/01/17 08:37 Creatinine 2.0 mg/dL (0.7-1.2) H 10/01/17 08:37 Est GFR ( Amer) 29 10/01/17 08:37 Est GFR (Non-Af Amer) 24 10/01/17 08:37 POC Glucose (mg/dL) 138 mg/dL (65-110) H 10/01/17 06:34 Random Glucose 128 mg/dL (65-105) H 10/01/17 08:37 Hemoglobin A1c 8.3 % (4.2-6.5) H D 09/30/17 09:52 Calcium 8.7 mg/dl (8.6-10.4) 10/01/17 08:37 Phosphorus 4.1 mg/dL (2.5-4.5) 10/01/17 08:37 Magnesium 2.5 mg/dL (1.6-2.3) H 10/01/17 08:37 Total Bilirubin 0.4 mg/dL (0.2-1.3) 10/01/17 08:37 AST 17 U/L (14-36) 10/01/17 08:37 ALT 8 U/L (9-52) L D 10/01/17 08:37 Alkaline Phosphatase 40 U/L (38-126) 10/01/17 08:37 Total Protein 6.9 g/dL (6.3-8.3) 10/01/17 08:37 Albumin 3.3 g/dL (3.5-5.0) L 10/01/17 08:37 Globulin 3.5 gm/dL (2.2-3.9) 10/01/17 08:37 Albumin/Globulin Ratio 0.9 (1.0-2.1) L 10/01/17 08:37 Urine Color Yellow (YELLOW) 09/30/17 02:56 Urine Clarity Clear (Clear) 09/30/17 02:56 Urine pH 6.0 (5.0-8.0) 09/30/17 02:56 Ur Specific [place] 1.010 (1.003-1.030) 09/30/17 02:56 Urine Protein Negative mg/dL (NEGATIVE) 09/30/17 02:56 Urine Glucose (UA) 3+ mg/dL (Normal) H 09/30/17 02:56 Urine Ketones Negative mg/dL (NEGATIVE) 09/30/17 02:56 Urine Blood Negative (NEGATIVE) 09/30/17 02:56 Urine Nitrate Negative (NEGATIVE) 09/30/17 02:56 Urine Bilirubin Negative (NEGATIVE) 09/30/17 02:56 Urine Urobilinogen Normal mg/dL (0.2-1.0) 09/30/17 02:56 Ur Leukocyte Esterase 1+ Ludy/uL (Negative) H 09/30/17 02:56 Urine WBC (Auto) 14 /hpf (0-5) H 09/30/17 02:56 Urine RBC (Auto) 2 /hpf (0-3) 09/30/17 02:56 Ur Squamous Epith Cells 12 /hpf (0-5) H 09/30/17 02:56 Granular Casts (Auto) 3 /lpf (0-1) 09/30/17 02:56 - Hospital Course Hospital Course: PMD: Dr. Clements Past Medical History: DM, HTN, HLD, PVD, CKD, COPD, hypothyroidism, anemia, kidney stones Past Surgical History: cardiac cath in January 2017 due to elevated enzymes, stents placed in leg Medications: Crestor 10mg, Fenofibrate 48mg, Prasugrel 10mg, Metoprolol 50mg, Alendronate 35mg, Allopurinol 100mg, Duoneb, prednisolone 20mg, Levothyroxine 100mcg, furosemide 20mg, Glimepiride 2mg sometimes once a week (she states she does not take her diabetes medications as indicated because she becomes very hypoglycemic), Hydrochlorothiazide 12.5mg Allergies- NKDA Family History: father was healthy and at 99, mother had diabetes, HLD, and hypothyroidism and at 96 Social History: denies alcohol, tobacco, and illicit drug use On admission: 82 year old female with pmh DM, CKD, COPD, hypothyroidism, HTN, HLD, PVD, and anemia comes to the ER for lower back pain [id number]. Pain started when she reached out to hand her daughter a bag full of clothes. The pain is described as a throbbing and cramping pain located in the right lumbar region. The pain does not radiate. The pain was rated as 10/10 but after receiving medications in the ED she reports the pain has resolved. The pain would worsen after sitting for a long time and at night she would experience a shock-like feeling. Patient states that she feels a numbness and tingling in the same area as the pain, but there is no numbness, tingling, or weakness in her extremities. Patient also denies chest pain, shortness of breath, abdominal pain, nausea, vomiting, diarrhea, urinary incontinence, and saddle anesthesia. During hospital stay: CT abd/pelvis showed 2.4cm ovid, well-defined right paraspinal mass, at the T9 level on the right. This suspicious for an enlarged lymph node. Ill defined paraspinal soft tissue at the T12 level. Severe chronic compression fracture of L1 associated with vertebral retropulsion, causing mild spinal canal stenosis. Mild chronic compression fracture of L3. MRI of Thoracic and lumbar spine was obtained which showed these same results. Patient is to arrange with her primary care doctor for outpatient biopsy of this mass. Patient also had an elevated wbc count with 4 bands. Blood cultures were done which should be follows up by her primary care physician.For LUCRECIA due to volume depletion and nsaid use Nephrolgy, Dr. Leach, was consulted. Patient is to follow up outpatient for further management of CKD All of her home medications were continued during her stay except glimepride as the patient reported noncompliance and episoed of hypoglycemia with this mediations. Blood pressure was controlled. Patient is stable for discharge home today. She is to follow up this week with Dr. Fuentes Clements for post hospital follow up. She should make arrangements with him in order to get a biopsy done of the mass that was found on the MRI. Patient was given a copy of the MRI report and also the disc with the images. Dr. Clements should also follow up on the blood cultures that were done during her hospital stay. She will need a referral to see Dr. Leach, nephrology, to follow up on her chronic kidney disease. Patient is to resume all of her home medications. A refill of Januvia was sent to [facility]. Patient is to discontinue the glimepiride due to episodes of low blood sugars. She is also to take Calcium citrate + vitamin D (up and up max tablet brand from [employer]), and take one tab with breakfast and one tab with dinner. All instructions were explained to the patient and her daughter and they agreed. *Please not this is only a summary of hospital event. Please refer to the EMR for full admission details. Discharge Exam - Head Exam Head Exam: ATRAUMATIC, NORMAL INSPECTION - Eye Exam Eye Exam: EOMI, PERRL Additional comments: left pupil smaller than the right. - ENT Exam ENT Exam: Mucous Membranes Moist - Respiratory Exam Respiratory Exam: NORMAL BREATHING PATTERN. absent: Accessory Muscle Use, Rales , Rhonchi, Wheezes, Respiratory Distress - Cardiovascular Exam Cardiovascular Exam: REGULAR RHYTHM, +S1, +S2. absent: Diastolic murmur, Irregular Rhythm, Systolic Murmur - GI/Abdominal Exam GI & Abdominal Exam: Normal Bowel Sounds, Soft. absent: Distended, Firm, Guarding, Tenderness Additional comments: obese - Extremities Exam Extremities exam: normal inspection - Back Exam Back exam: NORMAL INSPECTION, paraspinal tenderness. absent: CVA tenderness (L) , CVA tenderness (R), rash noted - Neurological Exam Neurological exam: Alert, CN II-XII Intact, Normal Gait, Oriented x3 Additional comments: good muscle strength in all muscle groups - Psychiatric Exam Psychiatric exam: Normal Affect, Normal Mood Discharge Plan - Discharge Medications Prescriptions: SITagliptin [Januvia] 25 mg PO DAILY PRN #30 tab PRN Reason: high blood sugar - Follow Up Plan Condition: STABLE Disposition: HOME/ ROUTINE Instructions: Spinal Stenosis (DC), Renal Failure Diet (DC), Hyperkalemia (DC) , Hyperkalemia (GEN), Back Pain (GEN) Additional Instructions: Patient is stable for discharge home today. She is to follow up this week with Dr. Fuentes Clements for post hospital follow up. She should make arrangements with him in order to get a biopsy done of the mass that was found on the MRI. Patient was given a copy of the MRI report and also the disc with the images. Dr. Clements should also follow up on the blood cultures that were done during her hospital stay. She will need a referral to see Dr. Leach, nephrology, to follow up on her chronic kidney disease. Patient is to resume all of her home medications. A refill of Januvia was sent to [facility]. Patient is to discontinue the glimepiride due to episodes of low blood sugars. She is also to take Calcium citrate + vitamin D (up and up max tablet brand from [employer]), and take one tab with breakfast and one tab with dinner. All instructions were explained to the patient and her daughter and they agreed. Referrals: Fuentes Clements MD [Family Provider] - Miki Leach DO [Staff Provider] - <Pawel Abernathy - Last Filed: 10/01/17 23:07> Provider - Provider Date of Admission: 09/30/17 03:19 Attending physician: Pawel Abernathy MD Time Spent in preparation of Discharge (in minutes): 40 Hospital Course - Lab Results Lab Results: Micro Results 09/30/17 14:56 Urine Urine Culture - Final No Growth (<1,000 CFU/ML) 09/30/17 11:30 Blood-Venous Blood Culture - Preliminary NO GROWTH AFTER 24 HOURS 09/30/17 11:00 Blood-Venous Blood Culture - Preliminary NO GROWTH AFTER 24 HOURS Most Recent Lab Values WBC 11.2 K/uL (4.8-10.8) H 10/01/17 08:37 RBC 3.03 Mil/uL (3.80-5.20) L 10/01/17 08:37 Hgb 9.3 g/dL (11.0-16.0) L 10/01/17 08:37 Hct 27.9 % (34.0-47.0) L 10/01/17 08:37 MCV 92.2 fL (81.0-99.0) 10/01/17 08:37 MCH 30.8 pg (27.0-31.0) 10/01/17 08:37 MCHC 33.4 g/dL (33.0-37.0) 10/01/17 08:37 RDW 16.7 % (11.5-14.5) H 10/01/17 08:37 Plt Count 144 K/uL (130-400) 10/01/17 08:37 MPV 9.1 fL (7.2-11.7) 10/01/17 08:37 Neut % (Auto) 55.6 % (50.0-75.0) 10/01/17 08:37 Lymph % (Auto) 19.6 % (20.0-40.0) L 10/01/17 08:37 [place] % (Auto) 23.9 % (0.0-10.0) H 10/01/17 08:37 Eos % (Auto) 0.7 % (0.0-4.0) 10/01/17 08:37 Baso % (Auto) 0.2 % (0.0-2.0) 10/01/17 08:37 Neut # (Auto) 6.2 K/uL (1.8-7.0) 10/01/17 08:37 Lymph # (Auto) 2.2 K/uL (1.0-4.3) 10/01/17 08:37 [place] # (Auto) 2.7 K/uL (0.0-0.8) H 10/01/17 08:37 Eos # (Auto) 0.1 K/uL (0.0-0.7) 10/01/17 08:37 Baso # (Auto) 0.0 K/uL (0.0-0.2) 10/01/17 08:37 Neutrophils % (Manual) 58 % (50-75) 10/01/17 08:37 Band Neutrophils % 3 % (0-2) H 10/01/17 08:37 Lymphocytes % (Manual) 20 % (20-40) 10/01/17 08:37 Reactive Lymphs % 1 % (0-0) H 09/30/17 01:13 Monocytes % (Manual) 19 % (0-10) H 10/01/17 08:37 Eosinophils % (Manual) 1 % (0-4) 09/30/17 01:13 Basophils % (Manual) 1 % (0-2) 09/30/17 01:13 Platelet Estimate Normal (NORMAL) 10/01/17 08:37 Polychromasia Slight 09/30/17 01:13 Hypochromasia (manual) Slight 10/01/17 08:37 Anisocytosis (manual) Slight 10/01/17 08:37 Sodium 142 mmol/L (132-148) 10/01/17 08:37 Potassium 4.2 mmol/L (3.6-5.2) 10/01/17 08:37 Chloride 106 mmol/L (98-107) 10/01/17 08:37 Carbon Dioxide 27 mmol/L (22-30) 10/01/17 08:37 Anion Gap 13 (10-20) 10/01/17 08:37 BUN 38 mg/dL (7-17) H 10/01/17 08:37 Creatinine 2.0 mg/dL (0.7-1.2) H 10/01/17 08:37 Est GFR ( Amer) 29 10/01/17 08:37 Est GFR (Non-Af Amer) 24 10/01/17 08:37 POC Glucose (mg/dL) 138 mg/dL (65-110) H 10/01/17 06:34 Random Glucose 128 mg/dL (65-105) H 10/01/17 08:37 Hemoglobin A1c 8.3 % (4.2-6.5) H D 09/30/17 09:52 Calcium 8.7 mg/dl (8.6-10.4) 10/01/17 08:37 Phosphorus 4.1 mg/dL (2.5-4.5) 10/01/17 08:37 Magnesium 2.5 mg/dL (1.6-2.3) H 10/01/17 08:37 Total Bilirubin 0.4 mg/dL (0.2-1.3) 10/01/17 08:37 AST 17 U/L (14-36) 10/01/17 08:37 ALT 8 U/L (9-52) L D 10/01/17 08:37 Alkaline Phosphatase 40 U/L (38-126) 10/01/17 08:37 Total Protein 6.9 g/dL (6.3-8.3) 10/01/17 08:37 Albumin 3.3 g/dL (3.5-5.0) L 10/01/17 08:37 Globulin 3.5 gm/dL (2.2-3.9) 10/01/17 08:37 Albumin/Globulin Ratio 0.9 (1.0-2.1) L 10/01/17 08:37 Urine Color Yellow (YELLOW) 09/30/17 02:56 Urine Clarity Clear (Clear) 09/30/17 02:56 Urine pH 6.0 (5.0-8.0) 09/30/17 02:56 Ur Specific [place] 1.010 (1.003-1.030) 09/30/17 02:56 Urine Protein Negative mg/dL (NEGATIVE) 09/30/17 02:56 Urine Glucose (UA) 3+ mg/dL (Normal) H 09/30/17 02:56 Urine Ketones Negative mg/dL (NEGATIVE) 09/30/17 02:56 Urine Blood Negative (NEGATIVE) 09/30/17 02:56 Urine Nitrate Negative (NEGATIVE) 09/30/17 02:56 Urine Bilirubin Negative (NEGATIVE) 09/30/17 02:56 Urine Urobilinogen Normal mg/dL (0.2-1.0) 09/30/17 02:56 Ur Leukocyte Esterase 1+ Ludy/uL (Negative) H 09/30/17 02:56 Urine WBC (Auto) 14 /hpf (0-5) H 09/30/17 02:56 Urine RBC (Auto) 2 /hpf (0-3) 09/30/17 02:56 Ur Squamous Epith Cells 12 /hpf (0-5) H 09/30/17 02:56 Granular Casts (Auto) 3 /lpf (0-1) 09/30/17 02:56 Attending/Attestation - Attestation I have personally seen and examined this patient.: Yes I have fully participated in the care of the patient.: Yes I have reviewed all pertinent clinical information, including history, physical exam and plan: Yes Notes (Text): 10/01/17 23:06 Patient was seen and examined with resident. All discharge instructions were thoroughly gone over with Daughter Ayla who was present at the time of exam. Pawel Abernathy D.O.
[2017-10-01 11:03] LABS: BANDS 3 % (0-2); LYMPHOCYTE 20 % (20-40); MONOCYTE 19 % (0-10); NEUTROPHIL 58 % (50-75); PLATELET ESTIMATE NORMAL (NORMAL); TOTAL CELLS COUNTED 100
[2017-10-01 11:04] LABS: ANISOCYTOSIS SLIGHT; HYPOCHROMIC SLIGHT
--- NOTE | 2017-10-01 12:38 | MRI ---
PROCEDURE: MR LUMBAR SPINE WITHOUT CONTRAST HISTORY: para spinal tumor, compression fracture COMPARISON: None available. TECHNIQUE: Multiecho multiplanar sequences were performed through the lumbar spine without the use of intravenous contrast. FINDINGS: Normal lumbar lordosis. Severe compression deformity of L1 vertebral body is noted. There is mild compression deformity of the superior endplate of L3 vertebra. Ctwe-ai-lnrnvbtd compression deformity of T12 is also noted. Bone marrow edema noted at T12 and L3 suggestive of recent fracture. Conus medullaris unremarkable at the level of T12 Again noted is soft tissue nodule/ mass to the right of T9 vertebral body as described in the MRI of the thoracic spine. T12-L1: Severe compression deformity of L1 associated with bony retropulsion which resulting in vvam-ke-kjuhrkbc spinal stenosis. L1-2: No disc herniation, spinal canal stenosis or neural foraminal narrowing. L2-3: Small posterior osteophyte despite seen without evidence of significant spinal or neural foraminal narrowing L3-4: Small disc bulge seen without evidence of significant spinal or neural foraminal narrowing. L4-5: Small disc bulge seen without evidence of significant spinal or neural foraminal narrowing. L5-S1: No disc herniation, spinal canal stenosis or neural foraminal narrowing. OTHER FINDINGS: None. IMPRESSION: CV compression deformity of L1 associated with bony retropulsion and byih-fb-pykaxuzn spinal canal stenosis. Mmic-pk-jpcbzlyi compression deformity at the superior endplate of L3 vertebral associated with mild bone marrow edema likely represent recent fracture. Questionable very mild recent compression deformity of L2. Otherwise no evidence of acute pathology at the lumbar spine.
== END 2017-10-01 12:03 | disposition home or self-care (01) | DRG 543 ==
LOC: C.ER 00:11 → C.6T 03:19
PROVIDERS: ADMIT Internal Medicine; ATTEND Family Medicine
DX: M48.56XA Collapsed vertebra, not elsewhere classified, lumbar region, initial encounter for fracture (principal); N17.9 Acute kidney failure, unspecified; N18.4 Chronic kidney disease, stage 4 (severe); I50.32 Chronic diastolic (congestive) heart failure; I13.0 Hypertensive heart and chronic kidney disease with heart failure and stage 1 through stage 4 chronic kidney disease, or unspecified chronic kidney disease; G95.9 Disease of spinal cord, unspecified; M48.061 Spinal stenosis, lumbar region without neurogenic claudication; J44.9 Chronic obstructive pulmonary disease, unspecified; E87.5 Hyperkalemia; E86.9 Volume depletion, unspecified; E78.5 Hyperlipidemia, unspecified; D63.1 Anemia in chronic kidney disease; D72.829 Elevated white blood cell count, unspecified; E03.9 Hypothyroidism, unspecified; E11.21 Type 2 diabetes mellitus with diabetic nephropathy; E11.22 Type 2 diabetes mellitus with diabetic chronic kidney disease; I77.819 Aortic ectasia, unspecified site; I08.3 Combined rheumatic disorders of mitral, aortic and tricuspid valves; E11.51 Type 2 diabetes mellitus with diabetic peripheral angiopathy without gangrene; M19.90 Unspecified osteoarthritis, unspecified site; Z87.01 Personal history of pneumonia (recurrent); Z87.442 Personal history of urinary calculi; Z91.19 Patient's noncompliance with other medical treatment and regimen; Z95.820 Peripheral vascular angioplasty status with implants and grafts; Z79.84 Long term (current) use of oral hypoglycemic drugs

== ENCOUNTER 2018-03-04 14:05 | Inpatient (IN) | payer MEDICARE ==
[2018-03-04 14:05] VITALS: BMI 35.5
[2018-03-04 15:00] LABS: BASO % 0.2 % (0.0-2.0); EOS # 0.1 K/uL (0.0-0.7); EOS % 0.6 % (0.0-4.0); HEMOGLOBIN 8.7 g/dL (11.0-16.0); LYMPH # 2.1 K/uL (1.0-4.3); LYMPH % 11.2 % (20.0-40.0); MEAN CELL VOLUME 91.3 fL (81.0-99.0); MEAN CORPUSCULAR HEMOGLOBIN 29.8 pg (27.0-31.0); MEAN CORPUSCULAR HGB CONC 32.6 g/dL (33.0-37.0); MEAN PLATELET VOLUME 9.8 fL (7.2-11.7); MONO # 4.8 K/uL (0.0-0.8); MONO % 25.1 % (0.0-10.0); NEUT # 12.1 K/uL (1.8-7.0); NEUT % 62.9 % (50.0-75.0); RBC 2.92 Mil/uL (3.80-5.20); RED CELL DISTRIBUTION WIDTH 17.8 % (11.5-14.5); WHITE BLOOD COUNT 19.2 K/uL (4.8-10.8)
[2018-03-04 15:04] LABS: PLATELET COUNT 93 K/uL (130-400)
[2018-03-04 15:28] LABS: ALBUMIN 3.8 g/dL (3.5-5.0); ALT/SGPT 13 U/L (9-52); AST/SGOT 14 U/L (14-36); BLOOD UREA NITROGEN 35 mg/dL (7-17); GFR NON-AFRICAN AMERICAN 21
[2018-03-04 15:38] LABS: B-TYPE NATRIURETIC PEPTIDE 3760 pg/mL (0-900)
--- NOTE | 2018-03-04 15:38 | RAD ---
Date of service: 03/04/2018 HISTORY: chest pain COMPARISON: 09/30/2017 FINDINGS: LUNGS: Prominent consolidative opacification in the left mid to lower lung zone with associated moderate loculated left pleural effusion. Additional prominent consolidative changes in the right hilar region extending to the right lung base. PLEURA: As above. CARDIOVASCULAR: Aortic atherosclerotic calcification present Cardiomegaly. OSSEOUS STRUCTURES: Degenerative changes in the spine. Calcific tendinopathy of the left proximal humerus. VISUALIZED UPPER ABDOMEN: Normal. OTHER FINDINGS: None. IMPRESSION: Prominent consolidative opacification in the left mid to lower lung zone with associated moderate loculated left pleural effusion. Additional prominent consolidative changes in the right hilar region extending to the right lung base. Cardiomegaly.
[2018-03-04 15:42] LABS: ANISOCYTOSIS MODERATE; BANDS 3 % (0-2); HYPOCHROMIC SLIGHT; LARGE PLATELETS PRESENT; LYMPHOCYTE 14 % (20-40); MONOCYTE 22 % (0-10); NEUTROPHIL 61 % (50-75); PLATELET ESTIMATE DECREASED (NORMAL); POLYCHROMIC SLIGHT; TOTAL CELLS COUNTED 100
[2018-03-04] MEDS ORDERED: Azithromycin 500 MG in Sodium Chloride 0.9% 250 ML IVPB STA (16:11)
[2018-03-04] MEDS ORDERED: Azithromycin 500mg/250ML NS 500 MG/250 ML BAG IVPB ONE (16:50)
[2018-03-04] MEDS ORDERED: cefTRIAXone 1 gm 1 GM/100 ML BAG IVPB ONE (16:50)
--- NOTE | 2018-03-04 16:59 | CP.PCM.PN ---
Objective - Vital Signs/Intake and Output Vital Signs (last 24 hours): Temp Pulse Resp BP Pulse Ox 98.2 F 71 22 159/50 H 95 03/04/18 16:07 03/04/18 16:07 03/04/18 16:07 03/04/18 16:50 03/04/18 16:07 - Medications Medications: Current Medications Azithromycin 500 mg/ Sodium (Chloride) 250 mls @ 250 mls/hr IVPB STAT STA; Protocol Stop: 03/04/18 17:10 Ceftriaxone Sodium 1 gm/ (Sodium Chloride) 100 mls @ 100 mls/hr IVPB STAT STA; Protocol Stop: 03/04/18 17:10 Last Admin: 03/04/18 16:32 Dose: 100 mls/hr - Labs Labs: 03/04/18 14:47 03/04/18 14:47
--- NOTE | 2018-03-04 17:24 | C.PDOC ---
History Of Present Illness 82 year old female presents to the ED complaining of mild left sided chest pain, shortness of breath and nonproductive cough for the past couple of days. Denies recent travel. Reports she has a scheduled chemical stress test on 03/15/18. States her PMD recommended tlhp-[id number] medicine for coughing a few weeks ago. Chief Complaint (Nursing): Chest Pain History Per: Patient History/Exam Limitations: no limitations Onset/Duration Of Symptoms: Days Current Symptoms Are (Timing): Still Present Past Medical History Reviewed: Historical Data, Nursing Documentation, Vital Signs Vital Signs: Last Vital Signs Temp 98.2 F 03/04/18 16:07 Pulse 71 03/04/18 16:07 Resp 22 03/04/18 16:07 BP 159/50 H 03/04/18 16:50 Pulse Ox 95 03/04/18 16:07 - Medical History PMH: Anemia, Arthritis, COPD, Diabetes, Gastritis, HTN, Hypothyroidism, Kidney Stones, Peripheral Edema, Pneumonia, Chronic Kidney Disease Other Surgeries: Hx of surgeries - [facility] Procedures ASSISTANCE WITH RESPIRATORY VENTILATION, 24-96 HRS, CPAP (03/19/17) ASSISTANCE WITH RESPIRATORY VENTILATION, >96 HRS, CPAP (02/15/17) INSERTION OF INFUSION DEV INTO SUP VENA CAVA, PERC APPROACH (03/19/17) INTRODUCTION OF SERUM/TOX/VACCINE INTO MUSCLE, PERC APPROACH (05/27/15) TRANSFUSE NONAUT RED BLOOD CELLS IN PERIPH VEIN, PERC (02/15/17) Family History: States: No Known Family Hx - Social History Hx Tobacco Use: No Hx Alcohol Use: No Hx Substance Use: No - Immunization History Hx Tetanus Toxoid Vaccination: No Hx Influenza Vaccination: No Hx Pneumococcal Vaccination: No Review Of Systems Except As Marked, All Systems Reviewed And Found Negative. Constitutional: Negative for: Fever, Chills Cardiovascular: Positive for: Chest Pain Respiratory: Positive for: Cough, Shortness of Breath Physical Exam - Physical Exam Appears: Non-toxic Skin: Warm, Dry Head: Normacephalic Eye(s): bilateral: Normal Inspection Neck: Supple Chest: Symmetrical Cardiovascular: Rhythm Regular Respiratory: Decreased Breath Sounds (left side ), Rhonchi (left side ) Gastrointestinal/Abdominal: Soft, No Tenderness Extremity: Pedal Edema (1+ pitting edema B/L) Neurological/Psych: Oriented x3, Normal Speech Gait: Steady ED Course And Treatment - Laboratory Results Result Diagrams: 03/04/18 14:47 03/04/18 14:47 O2 Sat by Pulse Oximetry: 95 (RA) Pulse Ox Interpretation: Normal - Other Rad CXR X-Ray: Viewed By Me, Read By Radiologist Interpretation: Accession No. : [id number]. Patient Name / ID : MANDO RESTREPO / [id number]. Exam Date : 03/04/2018 14:43:22 ( Approved ). Study Comment : Sex / Age : F / [id number]. Creator : Parag Correia MD. Dictator : Parag Correia MD. Physician/Internist : Instructor Warper : Parag Correia MD. Approver2 : Report Date : 03/04/2018 15:34:48. My Comment : . Date of service: 03/04/2018. HISTORY: chest pain. COMPARISON: 09/30/2017. FINDINGS: LUNGS: Prominent consolidative opacification in the left mid to lower lung zone with associated moderate loculated left pleural effusion. Additional prominent consolidative changes in the right hilar region extending to the right lung base. PLEURA: As above. CARDIOVASCULAR: Aortic atherosclerotic calcification present. Cardiomegaly. OSSEOUS STRUCTURES: Degenerative changes in the spine. Calcific tendinopathy of the left proximal humerus. VISUALIZED UPPER ABDOMEN: Normal. OTHER FINDINGS: None. IMPRESSION : Prominent consolidative opacification in the left mid to lower lung zone with associated moderate loculated left pleural effusion. Additional prominent consolidative changes in the right hilar region extending to the right lung base. Cardiomegaly. Medical Decision Making Medical Decision Making: Orders: - EKG - Labwork - CXR - Zithromax - Rocephin - Influenza A B stat Discussed case with Dr. Reyes, Hospitalist. Patient will be admitted to his ser vice. Disposition - Disposition Disposition Time: 15:55 Condition: GOOD - Clinical Impression Clinical Impression: Chest pain, Community acquired pneumonia, Pleural effusion - Scribe Statement The provider has reviewed the documentation as recorded by the Scribe Marlene Starks All medical record entries made by the Ethan were at my direction and personally dictated by me. I have reviewed the chart and agree that the record a ccurately reflects my personal performance of the history, physical exam, medical decision making, and the department course for this patient. I have also personally directed, reviewed, and agree with the discharge instructions and disposition.
[2018-03-04] MEDS: Saccharomyces Boulardi 250 mg Cap PO SCH ×2 (17:46)
--- NOTE | 2018-03-04 17:48 | CP.PCM.HP ---
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 A s per daughter and patient's mother, patient has been using her nebulizer and albuterol treatment 1-2 times per day but not every 4 hours as she has been instructed by her PMD whenever she feels extreme chest tightness or shortness of breath. With the use of nebulizer and albuterol, patient did not note any symptomatic relief. Patient admits to productive cough with white sputum since last week Monday with associated symptoms of 5/10 midsternal chest tightness without radiation. As per daughter and patient, patient had cold symptoms and cough last week and was prescribed Tussin DM by her PMD. Patient has not been able to lay flat for over a year and only tolerates sleeping in an upright posi tion. Patient denies symptoms of fever, chills, nausea, vomiting, chest pain, palpitations, dizziness, recent sick contact, recent travels, peripheral edema, unexpected/sudden weight gain, abdominal pain, diarrhea and flu shot but admits to chest tightness, cough, shortness of breath and headache 2 weeks ago (which was relieved by 2 tabs of advil). Patient admits to uptodate pneumonia vaccine and denies annual flu shot. Code Status: Full code Proxy: Bharati Keene (First Daughter, ) and Ayla ( Second daughter, ) PMD: Dr. Clements Crusher Plant Operator: Dr. Charanjit Enrique, Hematology and Oncology, Dr. Avel Enrique, Past Medical History: DM, HTN, HLD, PVD, CKD, COPD, hypothyroidism, anemia, kidney stones Past Surgical History: cardiac cath in January 2017 due to elevated enzymes, 3 stents placed in leg Medications: Crestor 10mg, Fenofibrate 48mg, Prasugrel 10mg, Metoprolol 50mg, Alendronate 35mg, Allopurinol 100mg, Duoneb, prednisolone 20mg, Levothyroxine 100mcg, furosemide 20mg, Glimepiride 2mg sometimes once a week (she states she does not take her diabetes medications as indicated because she becomes very hypoglycemic), Hydrochlorothiazide 12.5mg Allergies- NKDA Family History: father was healthy and at 99, mother had diabetes, HLD, and hypothyroidism and at 96 Social History: Lives with niece and second daughter often stays with her an first daughter lives next door, 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 Denies current or former use of alcohol, tobacco, and illicit drug use Present on Admission - Present on Admission Any Indicators Present on Admission: No Review of Systems - Constitutional Constitutional: Headache. absent: Chills, Daytime Sleepiness, Fatigue, Fever, Lethargy, Malaise, Night Sweats, Weight Gain, Weight Loss - EENT Eyes: absent: Blurred Vision, Change in Vision Ears: absent: Dizziness Nose/Mouth/Throat: absent: Nasal Congestion, Nasal Discharge, Sore Throat - Cardiovascular Cardiovascular: Dyspnea, Dyspnea on Exertion, Orthopnea, Paroxysmal Nocturnal Dyspnea, Radiating Pain, Other. absent: Chest Pain at Rest, Chest Pain with Activity, Claudication, Diaphoresis, Lightheadedness, Palpitations, Pedal Edema, Rapid Heart Rate, Slow Heart Rate, Syncope Additional comments: Mid-sternal chest tightness - Respiratory Respiratory: Cough, Dyspnea, Dyspnea on Exertion, Chest Congestion. absent: Wheezing, Snoring, Stridor, Pain on Inspiration, Excessive Mucous Production, Change in Mucous Color, Pain with Coughing - Gastrointestinal Gastrointestinal: absent: Abdominal Pain, Constipation, Diarrhea, Dysphagia, Hematochezia, Nausea, Vomiting - Genitourinary Genitourinary: absent: Dysuria, Hematuria, Pyuria, Urinary Frequency, Urinary Hesitance, Urinary Urgency - Neurological Neurological: Headaches. absent: Dizziness - Psychiatric Psychiatric: absent: Anhedonia, Anxiety, Change in Appetite - Endocrine Endocrine: absent: Fatigue, Increase in Ring/Shoe/Hat Size, Palpitations Past Patient History - Infectious Disease Hx of Infectious Diseases: None - Tetanus Immunizations Tetanus Immunization: Unknown - Past Medical History & Family History Past Medical History?: Yes - Past Social History Smoking Status: Never Smoked - CARDIAC Hx Hypertension: Yes Hx Peripheral Edema: Yes - PULMONARY Hx Chronic Obstructive Pulmonary Disease (COPD): Yes Hx Pneumonia: Yes - NEUROLOGICAL Hx Neurological Disorder: No - HEENT Hx HEENT Problems: Yes Hx Cataracts: Yes Other/Comment: corneal replacement both eyes - RENAL Hx Chronic Kidney Disease: Yes Hx Kidney Stones: Yes - ENDOCRINE/METABOLIC Hx Hypothyroidism: Yes - HEMATOLOGICAL/ONCOLOGICAL Hx Anemia: Yes - INTEGUMENTARY Hx Dermatological Problems: No - MUSCULOSKELETAL/RHEUMATOLOGICAL Hx Arthritis: Yes - GASTROINTESTINAL Hx Gastritis: Yes - GENITOURINARY/GYNECOLOGICAL Hx Genitourinary Disorders: No - PSYCHIATRIC Hx Substance Use: No - SURGICAL HISTORY Hx Surgeries: Yes Other/Comment: vascular stents. bone marrow aspiration - ANESTHESIA Hx Anesthesia: Yes Hx Anesthesia Reactions: No Meds Allergies/Adverse Reactions: Allergies Allergy/AdvReac Type Severity Reaction Status Date / Time No Known Allergies Allergy Verified 03/19/17 06:06 Physical Exam - Constitutional Appears: Non-toxic, No Acute Distress - Head Exam Head Exam: ATRAUMATIC, NORMAL INSPECTION - Eye Exam Eye Exam: EOMI, Normal appearance Pupil Exam: NORMAL ACCOMODATION - ENT Exam ENT Exam: Mucous Membranes Moist - Respiratory Exam Respiratory Exam: Rhonchi, NORMAL BREATHING PATTERN. absent: Decreased Breath Sounds, Wheezes, Respiratory Distress Additional comments: Left middle and lower lobe rhonci - Cardiovascular Exam Cardiovascular Exam: REGULAR RHYTHM, +S1, +S2, Systolic Murmur - GI/Abdominal Exam GI & Abdominal Exam: Normal Bowel Sounds, Soft. absent: Distended, Guarding, Rebound, Tenderness - Extremities Exam Extremities exam: Positive for: normal inspection. Negative for: calf tenderne ss, pedal edema, tenderness - Back Exam Back exam: NORMAL INSPECTION. absent: CVA tenderness (L), CVA tenderness (R) - Neurological Exam Neurological exam: Alert, Oriented x3 - Psychiatric Exam Psychiatric exam: Normal Affect, Normal Mood - Skin Skin Exam: Normal Color Results - Vital Signs Recent Vital Signs: Last Vital Signs Temp 98.0 F 03/04/18 17:25 Pulse 72 03/04/18 17:25 Resp 20 03/04/18 17:25 BP 164/58 H 03/04/18 17:25 Pulse Ox 95 03/04/18 17:35 - Labs Result Diagrams: 03/04/18 14:47 03/04/18 14:47 Labs: Laboratory Results - last 24 hr 1003/04/18 03/04/18 14:47 14:47 16:47 WBC 19.2 H D RBC 2.92 L Hgb 8.7 L Hct 26.7 L MCV 91.3 MCH 29.8 MCHC 32.6 L RDW 17.8 H Plt Count 93 L D MPV 9.8 Neut % (Auto) 62.9 Lymph % (Auto) 11.2 L [place] % (Auto) 25.1 H Eos % (Auto) 0.6 Baso % (Auto) 0.2 Neut # (Auto) 12.1 H Lymph # (Auto) 2.1 [place] # (Auto) 4.8 H Eos # (Auto) 0.1 Baso # (Auto) 0.0 Neutrophils % (Manual) 61 Band Neutrophils % 3 H Lymphocytes % (Manual) 14 L Monocytes % (Manual) 22 H Platelet Estimate Decreased L Large Platelets Present Polychromasia Slight Hypochromasia (manual) Slight Anisocytosis (manual) Moderate Sodium 142 Potassium 4.2 Chloride 107 Carbon Dioxide 26 Anion Gap 14 BUN 35 H Creatinine 2.2 H Est GFR ( Amer) 26 Est GFR (Non-Af Amer) 21 Random Glucose 162 H Calcium 9.0 Total Bilirubin 0.6 AST 14 ALT 13 Alkaline Phosphatase 42 Troponin I < 0.0120 NT-Pro-B Natriuret Pep 3760 H Total Protein 7.7 Albumin 3.8 Globulin 3.9 Albumin/Globulin Ratio 1.0 Influenza Typ A,B (EIA) Negative for flu a/b Assessment & Plan (1) Pneumonia Assessment and Plan: Chest-Xray: Prominent consolidative opacification in the left mid to lower lung zone with associated moderate loculated left pleural effusion. Additional prominent consolidative changes in the right hilar region extending to the right lung base. F/u Chest CT without contrast Management: * Rocephin 1gm IV daily * Azithromycin 1gm IV daily * Florastor 250mg PO BID * F/u BC, Strep pneumoniae, urine legionella and mycoplasma pnemoniae Status: Acute (2) Pleural effusion Assessment and Plan: Chest-Xray: Prominent consolidative opacification in the left mid to lower lung zone with associated moderate loculated left pleural effusion. Additional prominent consolidative changes in the right hilar region extending to the right lung base. F/u Chest CT without contrast BNP: 3760 Management: Lasix 20mg IV daily (Light dose due to LUCRECIA) Status: Acute (3) Leukocytosis Assessment and Plan: With bandemia;; band of 3 2/2 active pneumonia infection Chest X-ray: Prominent consolidation opacification in the left mid to lower lung zone with associated moderate loculated pleural effusion. Additional prominent consolidative changes in the right hilar region extending to the right lung base. Management: * Rocephin 1gm IV daily * Azithromycin 1gm IV daily * Florastor 250mg PO BID * F/u BC, Strep pneumoniae, urine legionella and mycoplasma pnemoniae Status: Acute (4) Heart failure with normal ejection fraction Assessment and Plan: BNP: 3760 Chest-Xray: Prominent consolidative opacification in the left mid to lower lung zone with associated moderate loculated left pleural effusion. Additional prominent consolidative changes in the right hilar region extending to the right lung base Echo (03/31): Normal left ventricular function and normal range EF. No regional wall motion abnormalities noted. Mild to moderate valvular aortic stenosis. Mild to moderate TR and right ventricular systolic pressure is estimated at 40- 50mmHg. MR is mild. Please refer to the EMR for complete report. F/u repeat Echo Management: Lasix 20mg IV daily (Light dose due to LUCRECIA) Status: Acute (5) Hypothyroidism Assessment and Plan: Synthroid 100mcg PO QD at 6:30 TSH/Free T4 (03/2017): 6.49/1.52 F/u TSH and Free T4 Status: Acute (6) Renal insufficiency Assessment and Plan: BUN/Cr: 35/2.[address] Glaser's group in the past with assessment that CKD is due to NSAID use Reconsultation- Dr. Glaser * For any further recommendation Status: Acute (7) Dyslipidemia Assessment and Plan: Lipid Panel (02/16/17): -TGL: 79, Chol:107, LDL: 35 and HDL: 32 F/u repeat Lipid panel Management: * Crestor 10mg PO HS Status: Acute (8) HTN (hypertension) Assessment and Plan: Continue home medications: * HCTZ 12.5MG PO daily * Norvasc 10mg PO daily: No peripheral edema * Toprol XL 25mg PO daily * Continue to monitor with vital Q4H Status: Acute (9) Chronic anemia Assessment and Plan: H/H: 8.7/26.7 Procrit 1-2 weeks injection outpatient Medicine team to contact Hematology and Oncology, Dr. Avel Enrique, for dosage Status: Acute (10) COPD (chronic obstructive pulmonary disease) Assessment and Plan: Albuterol 3ML INH RQ6H PRN Status: Acute (11) Thrombocytopenia Assessment and Plan: Platelet: 93 Continue to monitor with am labs Please hold effient is platelet continues to deplete Status: Acute (12) Peripheral vascular disease Assessment and Plan: History of stent placement * Effient 10mg PO daily, please hold if worsening of platelet function Status: Acute (13) Type II diabetes mellitus Assessment and Plan: HbgA1C (09/30/17): 8.3 Management: - Heart healthy diet with low carbohydrate consistency - Accuchecks - Januvia 25mg daily - ISS low dose - Hypoglycemia protocol Status: Acute (14) Prophylactic measure Assessment and Plan: DVT: SCDs, effient 10mg PO daily (Continue to monitor platelet and H/H) GI: Not indicated PT/OT All plans and management discussed with Dr. Reyes Status: Acute
[2018-03-04] MEDS ORDERED: Dextrose 50% SYRINGE Inj (50 ml) IV PRN (19:56)
[2018-03-04] MEDS ORDERED: Glucagon Recombinant 1 mg Inj IM PRN (19:56)
[2018-03-04] MEDS: Albuterol-Ipratrop 3 mg / 0.5 (3 ml) UD INH SCH (20:28)
[2018-03-04] MEDS: (Novolog) Insulin Aspart, Recombinant 100 u/ml 10 ml vial SC SCH (21:38)
[2018-03-05] MEDS ORDERED: Albuterol-Ipratrop 3 mg / 0.5 (3 ml) UD INH ONE (00:20)
[2018-03-05] MEDS: Albuterol-Ipratrop 3 mg / 0.5 (3 ml) UD INH SCH ×4 (01:40→19:16)
[2018-03-05 03:13] LABS: ALBUMIN 3.8 g/dL (3.5-5.0)
[2018-03-05 03:23] LABS: CK-MB 0.44 ng/mL (0.0-3.38); TROPONIN I 0.022 ng/mL (0.00-0.120)
[2018-03-05] MEDS: Levothyroxine 100 MCG TAB PO SCH (05:35)
[2018-03-05] MEDS: Metoprolol Succinate 25 mg XL Tab PO SCH (10:00)
[2018-03-05] MEDS: Saccharomyces Boulardi 250 mg Cap PO SCH ×2 (10:02→18:04)
[2018-03-05] MEDS: (Novolog) Insulin Aspart, Recombinant 100 u/ml 10 ml vial SC SCH ×4 (10:08→21:44)
--- NOTE | 2018-03-05 10:10 | CP.PCM.PN ---
Addendum entered and electronically signed by Liz Hammer MD 03/06/18 17:49: Original Note: <Cherrie Carrasco - Last Filed: 03/05/18 13:41> Subjective - Date & Time of Evaluation Date of Evaluation: 03/05/18 Time of Evaluation: 10:08 - Subjective Subjective: Cherrie Carrasco PGY1 progress note for Dr. Hammer Pt was examined at bedside this morning. She reports continuation of her chest tightness and shortness of breath, but it has improved since yesterday. Pt also reports coughing up a large amount of white sputum. She denies blood in the sputum. She denies headache, chest pain, nausea, vomiting, abdominal pain, diarrhea, or dysuria. Objective - Vital Signs/Intake and Output Vital Signs (last 24 hours): Temp Pulse Resp BP Pulse Ox 99 F 92 H 20 134/53 L 94 L 03/05/18 08:00 03/05/18 08:00 03/05/18 08:00 03/05/18 08:00 03/05/18 08:00 - Medications Medications: Current Medications Albuterol/Ipratropium (Duoneb 3 Mg/0.5 Mg (3 Ml) Ud) 3 ml INH RQ6 [facility] Last Admin: 03/05/18 07:29 Dose: 3 ml Amlodipine Besylate (Norvasc) 10 mg PO DAILY [facility] Dextrose (Dextrose 50% Inj) 0 ml IV STAT PRN; Protocol PRN Reason: Hypoglycemia Protocol Dextrose (Glutose 15) 0 gm PO ONCE PRN; Protocol PRN Reason: Hypoglycemia Protocol Furosemide (Lasix) 20 mg IVP DAILY [facility] Glucagon (Glucagen Diagnostic Kit) 0 mg IM STAT PRN; Protocol PRN Reason: Hypoglycemia Protocol Hydrochlorothiazide (Microzide) 12.5 mg PO DAILY [facility] Azithromycin 500 mg/ Sodium (Chloride) 250 mls @ 250 mls/hr IVPB DAILY [facility]; Protocol Ceftriaxone Sodium 1 gm/ (Sodium Chloride) 100 mls @ 100 mls/hr IVPB DAILY [facility]; Protocol Dextrose (Dextrose 5% In Water 1000 Ml) 1,000 mls @ 0 mls/hr IV .Q0M PRN; Protocol PRN Reason: Hypoglycemia Protocol Influenza Virus Vaccine (Fluzone Quad [id number]) 60 mcg IM .ONCE ONE Stop: 03/06/18 14:01 Insulin Aspart (Novolog) 0 unit SC ACHS [facility]; Protocol Last Admin: 03/04/18 21:38 Dose: Not Given Levothyroxine Sodium (Synthroid) 100 mcg PO DAILY@0630 [facility] Last Admin: 03/05/18 05:35 Dose: 100 mcg Metoprolol Succinate (Toprol Xl) 25 mg PO DAILY [facility] Prasugrel (Effient) 10 mg PO DAILY [facility] Rosuvastatin Calcium (Crestor) 10 mg PO HS [facility] Last Admin: 03/04/18 21:36 Dose: 10 mg Saccharomyces Boulardii (Florastor) 250 mg PO BID [facility] Last Admin: 03/04/18 17:46 Dose: 250 mg Sitagliptin Phosphate (Januvia) 25 mg PO DAILY [facility] - Labs Labs: 03/04/18 14:47 03/05/18 02:56 - Constitutional Appears: Well, No Acute Distress - Head Exam Head Exam: ATRAUMATIC, NORMOCEPHALIC - Eye Exam Eye Exam: EOMI, Normal appearance, PERRL Pupil Exam: NORMAL ACCOMODATION - ENT Exam ENT Exam: Mucous Membranes Moist - Neck Exam Neck Exam: Normal Inspection - Respiratory Exam Respiratory Exam: Decreased Breath Sounds, NORMAL BREATHING PATTERN. absent: Rales, Rhonchi, Wheezes, Stridor Additional comments: crackles in L mid and lower lung singh, decreased breath sounds b/l - Cardiovascular Exam Cardiovascular Exam: REGULAR RHYTHM, +S1, +S2. absent: Gallop, Rubs, Murmur - GI/Abdominal Exam GI & Abdominal Exam: Soft, Normal Bowel Sounds. absent: Distended, Tenderness - Extremities Exam Extremities Exam: Pedal Edema. absent: Calf Tenderness, Joint Swelling - Neurological Exam Neurological Exam: Alert, Awake, Oriented x3 - Psychiatric Exam Psychiatric exam: Normal Affect, Normal Mood - Skin Skin Exam: Normal Color Assessment and Plan - Assessment and Plan (Free Text) Assessment: 82yo F with PMH HTN, DM, HLD, PVD, CKD, COPD, hypothyroid, anemia, nephrolithiasis, leukemia admitted for further evaluation and treatment of pneumonia and pleural effusion. Plan: Pneumonia: - pt afebrile - CT Chest 03/05: CHF vascular pattern, dilated pulmonary artery 3.6cm, consider pulmonary arterial hypertension. mild b/l pleural effusions with atelectasis at b/l lower lobes. underlying pneumonia not excluded. 3mm right apical nonclacified nodule f/u 12 months - CXR 03/04: Prominent consolidative opacification in the left mid to lower lung zone with associated moderate loculated left pleural effusion. Additional prominent consolidative changes in the right hilar region extending to the right lung base. - Strept pneumo negative - influenza negative - continue azithromycin 1gm IV daily (day 2) - d/c rocephin - start zosyn 2.25 IV q8h (day 1) - continue Florastor 250mg PO BID - f/u BCx, urine legionella and mycoplasma pnemoniae Plueral Effusion: - CT Chest 03/05: CHF vascular pattern, dilated pulmonary artery 3.6cm, consider pulmonary arterial hypertension. mild b/l pleural effusions with atelectasis at b/l lower lobes. underlying pneumonia not excluded. 3mm right apical nonclacified nodule f/u 12 months - CXR 03/04: Prominent consolidative opacification in the left mid to lower lung zone with associated moderate loculated left pleural effusion. Additional prominent consolidative changes in the right hilar region extending to the right lung base. - BNP: 4110 - continue lasix 20mg IV daily - Pulm consulted, Dr. Trevino (follows out pt), f/u recs Leukocytosis - 03/04: WBC 19.2 with bandemia band of 3 - likely 2/2 active pneumonia infection - CT Chest 03/05: CHF vascular pattern, dilated pulmonary artery 3.6cm, consider pulmonary arterial hypertension. mild b/l pleural effusions with atelectasis at b/l lower lobes. underlying pneumonia not excluded. 3mm right apical nonclacified nodule f/u 12 months - CXR 03/04: Prominent consolidation opacification in the left mid to lower lung zone with associated moderate loculated pleural effusion. Additional prominent consolidative changes in the right hilar region extending to the right lung base. - f/u rpt CBC Heart failure with normal ejection fraction - BNP: 4110 - CT Chest 03/05: CHF vascular pattern, dilated pulmonary artery 3.6cm, consider pulmonary arterial hypertension. mild b/l pleural effusions with atelectasis at b/l lower lobes. underlying pneumonia not excluded. 3mm right apical nonclacified nodule f/u 12 months - CXR 03/04: Prominent consolidative opacification in the left mid to lower lung zone with associated moderate loculated left pleural effusion. Additional prominent consolidative changes in the right hilar region extending to the right lung base - Echo (03/31): Normal left ventricular function and normal range EF. No regional wall motion abnormalities noted. Mild to moderate valvular aortic stenosis. Mild to moderate TR and right ventricular systolic pressure is estimated at 40-50mmHg. MR is mild. Please refer to the EMR for complete report. - rpt ECHO done, f/u reading - pt scheduled to have stress test 03/[address] Enrique, circle edger - continue lasix 20mg IV daily Hypothyroidism - TSH 4.99 - f/u free T4 - continue synthroid 100mcg PO QD Renal insufficiency - BUN/Cr: 38/2.3 - past assessment by Dr. Glaser's group: due to NSAID use - Nephro consulted, Dr. Glaser- f/u recs Dyslipidemia - T, Chol:124, LDL: 49 and HDL: 38 - continue Crestor 10mg PO HS HTN - Continue home medications: HCTZ 12.5MG PO daily Norvasc 10mg PO daily Toprol XL 25mg PO daily Continue to monitor Anemia - H/H: 8.7/26.7 - Procrit 1-2 weeks injection outpatient - contacted heme onc, Dr. Avel Enrique at [phone]: she endorsed pt does not require procrit injections while inpatient COPD - pt reports shortness of breath, likely secondary to active infection and effusion - continue Albuterol 3ML INH RQ6H PRN Thrombocytopenia - Platelet 03/04: 93 - f/u rpt CBC - hold effient is platelet continues to deplete Peripheral vascular disease - History of stent placement - continue Effient 10mg PO daily, hold if worsening thrombocytopenia Type II DM - HbA1C (09/30/17): 8.3 - Heart healthy diet with low carbohydrate consistency - Accuchecks - Januvia 25mg daily - ISS low dose - Hypoglycemia protocol PPX: DVT: SCDs, effient 10mg PO daily GI: Not indicated PT/OT Patient seen and plan discussed with Dr. Hammer <Liz Hammer - Last Filed: 03/06/18 07:40> Objective - Vital Signs/Intake and Output Vital Signs (last 24 hours): Temp Pulse Resp BP Pulse Ox 98.9 F 80 20 160/65 H 93 L 03/06/18 00:00 03/06/18 05:16 03/06/18 00:00 03/06/18 00:00 03/06/18 00:00 Intake and Output: 03/06/18 03/06/18 06:59 18:59 Intake Total 530 Balance 530 - Medications Medications: Current Medications Albuterol/Ipratropium (Duoneb 3 Mg/0.5 Mg (3 Ml) Ud) 3 ml INH RQ6 [facility] Last Admin: 03/06/18 01:36 Dose: 3 ml Amlodipine Besylate (Norvasc) 10 mg PO DAILY [facility] Last Admin: 03/05/18 09:59 Dose: 10 mg Dextrose (Dextrose 50% Inj) 0 ml IV STAT PRN; Protocol PRN Reason: Hypoglycemia Protocol Dextrose (Glutose 15) 0 gm PO ONCE PRN; Protocol PRN Reason: Hypoglycemia Protocol Furosemide (Lasix) 20 mg IVP DAILY [facility] Last Admin: 03/05/18 10:05 Dose: 20 mg Glucagon (Glucagen Diagnostic Kit) 0 mg IM STAT PRN; Protocol PRN Reason: Hypoglycemia Protocol Hydrochlorothiazide (Microzide) 12.5 mg PO DAILY [facility] Last Admin: 03/05/18 09:59 Dose: 12.5 mg Azithromycin 500 mg/ Sodium (Chloride) 250 mls @ 250 mls/hr IVPB DAILY [facility]; Protocol Last Admin: 03/05/18 10:25 Dose: 250 mls/hr Dextrose (Dextrose 5% In Water 1000 Ml) 1,000 mls @ 0 mls/hr IV .Q0M PRN; Protocol PRN Reason: Hypoglycemia Protocol Piperacillin Sod/Tazobactam (Sod 2.25 gm/ Sodium Chloride) 100 mls @ 200 mls/hr IVPB Q6H [facility]; Protocol Last Admin: 03/06/18 05:32 Dose: 200 mls/hr Influenza Virus Vaccine (Fluzone Quad [id number]) 60 mcg IM .ONCE ONE Stop: 03/06/18 14:01 Insulin Aspart (Novolog) 0 unit SC ACHS [facility]; Protocol Last Admin: 03/05/18 21:44 Dose: Not Given Levothyroxine Sodium (Synthroid) 100 mcg PO DAILY@0630 [facility] Last Admin: 03/06/18 05:30 Dose: 100 mcg Metoprolol Succinate (Toprol Xl) 25 mg PO DAILY [facility] Last Admin: 03/05/18 10:00 Dose: 25 mg Prasugrel (Effient) 10 mg PO DAILY [facility] Last Admin: 03/05/18 10:14 Dose: 10 mg Rosuvastatin Calcium (Crestor) 10 mg PO HS [facility] Last Admin: 03/05/18 21:47 Dose: 10 mg Saccharomyces Boulardii (Florastor) 250 mg PO BID [facility] Last Admin: 03/05/18 18:04 Dose: 250 mg Sitagliptin Phosphate (Januvia) 25 mg PO DAILY [facility] Last Admin: 03/05/18 10:32 Dose: 25 mg - Labs Labs: 03/06/18 07:17 03/05/18 02:56 Attending/Attestation - Attestation I have personally seen and examined this patient.: Yes I have fully participated in the care of the patient.: Yes I have reviewed all pertinent clinical information, including history, physical exam and plan: Yes Notes (Text): Seen and examined by me .lying on bed without discomfort,states cough is better. Not in sobFeeling tired,not slept last night spoke to her daughter at bed side has bilateral rales noted,soft nontender abdomen,legs without edema,she is alert and oriented x3 1. Pneumonia and pleural effusion started on zosyn,on zithromax continue antibiotics,follow pulmonary . Patient follows Dr Whitten 2.History of CHF with preserved LV function 3.HTN 4.DM 5.COPD,uses CPAP at home 6.Hypothyroid 7.Leukemia not treated,follow DR Enrique oncologist d/w resident
[2018-03-05] MEDS: Azithromycin 500 MG in Sodium Chloride 0.9% 250 ML IVPB SCH (10:25)
[2018-03-05 11:00] LABS: N MENINGITIS ACY/W135 NEGATIVE (NEGATIVE); N MENINGITIS B/ECOLI K1 NEGATIVE (NEGATIVE); STREP PNEUMONIAE NEGATIVE (NEGATIVE); STREPTOCOCCUS B NEGATIVE (NEGATIVE)
[2018-03-05 11:15] LABS: N MENINGITIS ACY/W135 NOT REQUIRED (NEGATIVE); N MENINGITIS B/ECOLI K1 NOT REQUIRED (NEGATIVE); STREP PNEUMONIAE NEGATIVE (NEGATIVE); STREPTOCOCCUS B NOT REQUIRED (NEGATIVE)
--- NOTE | 2018-03-05 13:39 | CT ---
Date of service: 2018-03-05 10:53:26 CT chest without IV contrast Indication: Noted moderate loculated left pleural effusion Technique: Contiguous axial images were obtained through the chest without intravenous contrast enhancement. Sagittal and coronal reconstructions were generated and reviewed. This CT exam was performed using 1 or more of the following dose reduction techniques: Automated exposure control, adjustment of the MAA and/or kV according to patient size, and/or use of iterative reconstruction technique. Radiation dose (DLP): 468.6 MGy-cm. Comparison: Noncontrast chest CT performed 02/16/17 Findings: Visualized portions of the inferior thyroid gland appear heterogeneous. The unenhanced mediastinal and hilar vascular structures appear grossly unremarkable. Mild cardiomegaly. Dense atherosclerotic calcifications of the aorta, coronary arteries, and mitral annulus. Sub cm prevascular and mediastinal adenopathy, nonspecific. Please note overall evaluation for adenopathy is limited in the absence of IV contrast, in particular hilar adenopathy. Ground-glass pulmonary opacities with nodular appearance in the upper lobes and more diffuse appearance inferiorly particularly the right lower lobe. Small right and small to moderate left pleural effusions and associated compressive consolidations greatest on the left. No pneumothorax. 5 mm right upper lobe nodule (coronal image 50). Limited visualization of the noncontrast upper abdomen: Heterogeneous appearance of the spleen, particularly lateral spleen of unclear significance. Bilateral renal atrophy. Pancreatic atrophy. Osseous demineralization. Degenerative changes. Severe T12 and L1 compression fracture deformities. Impression: Cardiomegaly. Ground-glass pulmonary opacities with nodular appearance in the upper lobes and more diffuse appearance inferiorly particularly the right lower lobe. Correlate for edema/CHF. Small right and small to moderate left pleural effusions and associated compressive consolidations, greatest on the left. Small portion of this left sided pleural effusion may be loculated laterally. Recommend follow-up upon completion of treatment in order to assess for complete resolution. 5 mm right upper lobe nodule. Recommend attention on follow-up. Limited visualization of the noncontrast upper abdomen: Heterogeneous appearance of the spleen, particularly lateral spleen of unclear significance. Bilateral renal atrophy. Pancreatic atrophy. Severe T12 and L1 compression fracture deformities, age indeterminate but new since 02/16/17. Additional findings as above.
--- NOTE | 2018-03-05 13:49 | CP.PCM.CON ---
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 As per daughter and patient's mother, patient has been using her nebulizer and albuterol treatment 1-2 times per day but not every 4 hours as she has been instructed by her PMD whenever she feels extreme chest tightness or shortness of breath. With the use of nebulizer and albuterol, patient did not note any symptomatic relief. Patient admits to productive cough with white sputum since last week Monday with associated symptoms of 5/10 midsternal chest tightness without radiation. As per daughter and patient, patient had cold symptoms and cough last week and was prescribed Tussin DM by her PMD. Patient has not been able to lay flat for over a year and only tolerates sleeping in an upright position. Patient denies symptoms of fever, chills, nausea, vomiting, chest p ain, palpitations, dizziness, recent sick contact, recent travels, peripheral edema, unexpected/sudden weight gain, abdominal pain, diarrhea and flu shot but admits to chest tightness, cough, shortness of breath and headache 2 weeks ago (which was relieved by 2 tabs of advil). Patient admits to uptodate pneumonia vaccine and denies annual flu shot. Being treated for CHF., Known CKD hx- reportedly stage 4 Code Status: Full code Proxy: Bharati Keene (First Daughter, ) and Ayla ( Second daughter, ) PMD: Dr. Clements Pocket Stitcher: Dr. Charanjit Enrique, Hematology and Oncology, Dr. Avel Enrique, Past Medical History: DM, HTN, HLD, PVD, CKD, COPD, hypothyroidism, anemia, kidney stones Past Surgical History: cardiac cath in January 2017 due to elevated enzymes, 3 stents placed in leg Medications: Crestor 10mg, Fenofibrate 48mg, Prasugrel 10mg, Metoprolol 50mg, Alendronate 35mg, Allopurinol 100mg, Duoneb, prednisolone 20mg, Levothyroxine 100mcg, furosemide 20mg, Glimepiride 2mg sometimes once a week (she states she does not take her diabetes medications as indicated because she becomes very hypoglycemic), Hydrochlorothiazide 12.5mg Allergies- NKDA Family History: father was healthy and at 99, mother had diabetes, HLD, and hypothyroidism and at 96 Social History: Lives with niece and second daughter often stays with her an first daughter lives next door, 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 Denies current or former use of alcohol, tobacco, and illicit drug use Review of Systems - Constitutional Constitutional: Lethargy, Weakness - EENT Eyes: absent: As Per HPI, Blind Spots, Blurred Vision, Change in Vision, Decre ased Night Vision, Diplopia, Discharge, Dry Eye, Exophthalmos, Floaters, Irritation, Itchy Eyes, Loss of Peripheral Vision, Pain, Photophobia, Requires Corrective Lenses, Sees Flashes, Spots in Vision, Tunnel Vision, Other Visual Disturbances, Loss of Vision, Other Ears: absent: As Per HPI, Decreased Hearing, Ear Discharge, Ear Pain, Tinnitus, Abnormal Hearing, Disequilibrium, Dizziness, Other Nose/Mouth/Throat: absent: As Per HPI, Epistaxis, Nasal Congestion, Nasal Discharge, Nasal Obstruction, Nasal Trauma, Nose Pain, Post Nasal Drip, Sinus P ain, Sinus Pressure, Bleeding Gums, Change in Voice, Dental Pain, Dry Mouth, Dysphagia, Halitosis, Hoarsness, Lip Swelling, Mouth Lesions, Mouth Pain, Odynophagia, Sore Throat, Throat Swelling, Tongue Swelling, Facial Pain, Neck Pain, Neck Mass, Other - Cardiovascular Cardiovascular: Dyspnea on Exertion, Orthopnea - Respiratory Respiratory: Cough, Dyspnea on Exertion - Gastrointestinal Gastrointestinal: Early Satiety - Genitourinary Genitourinary: absent: As Per HPI, Change in Urinary Stream, Difficulty Urinating, Dysuria, Flank Pain, Hematuria, Pyuria, Nocturia, Urinary Incontinence, Urinary Frequency, Urinary Hesitance, Urinary Urgency, Voiding Freq/Small Amts, Freq UTI, Hx Renal/Bladder Calculi, Hx /Renal Surgery, Bladder Distension, Other - Musculoskeletal Musculoskeletal: Muscle Cramps, Muscle Weakness, Myalgias - Integumentary Integumentary: absent: As Per HPI, Acne, Alopecia, Bleeding Lesions, Change in Hair, Change in Nails, Change in Pigmentation, Changing Lesions, Dry Skin, Erythema, Furuncle, Hirsutism, Lesions, New Lesions, Non-Healing Lesions, Photosensitivity, Pruritus, Rash, Skin Pain, Skin Ulcer, Sores, Striae, Swelling, Unusual Bruising, Wounds, Jaundice, Other - Neurological Neurological: absent: As Per HPI, Abnormal Gait, Abnormal Hearing, Abnormal Movements, Abnormal Speech, Behavioral Changes, Burning Sensations, Confusion, Convulsions, Disequilibrium, Dizziness, Numbness, Focal Weakness, Frequent Falls, Headaches, Lack of Coordination, Loss of Vision, Memory Loss, Paresthesias, Radicular Pain, Restless Legs, Sensory Deficit, Syncope, Tingling, Tremor, Vertigo, Weakness, Other Visual Disturbances, Other Past Patient History - Infectious Disease Hx of Infectious Diseases: None - Tetanus Immunizations Tetanus Immunization: Unknown - Past Medical History & Family History Past Medical History?: Yes Past Family History: Reviewed and not pertinent - Past Social History Smoking Status: Never Smoked Chewing Tobacco Use: No Cigar Use: No Alcohol: None Drugs: Denies Home Situation {Lives}: With Family - CARDIAC Hx Hypertension: Yes Hx Peripheral Edema: Yes - PULMONARY Hx Chronic Obstructive Pulmonary Disease (COPD): Yes Hx Pneumonia: Yes - NEUROLOGICAL Hx Neurological Disorder: No - HEENT Hx HEENT Problems: Yes Hx Cataracts: Yes Other/Comment: corneal replacement both eyes - RENAL Hx Chronic Kidney Disease: Yes Hx Kidney Stones: Yes - ENDOCRINE/METABOLIC Hx Hypothyroidism: Yes - HEMATOLOGICAL/ONCOLOGICAL Hx Anemia: Yes - INTEGUMENTARY Hx Dermatological Problems: No - MUSCULOSKELETAL/RHEUMATOLOGICAL Hx Arthritis: Yes - GASTROINTESTINAL Hx Gastritis: Yes - GENITOURINARY/GYNECOLOGICAL Hx Genitourinary Disorders: No - PSYCHIATRIC Hx Substance Use: No - SURGICAL HISTORY Hx Surgeries: Yes Other/Comment: vascular stents. bone marrow aspiration - ANESTHESIA Hx Anesthesia: Yes Hx Anesthesia Reactions: No Meds Allergies/Adverse Reactions: Allergies Allergy/AdvReac Type Severity Reaction Status Date / Time No Known Allergies Allergy Verified 03/19/17 06:06 - Medications Medications: Current Medications Albuterol/Ipratropium (Duoneb 3 Mg/0.5 Mg (3 Ml) Ud) 3 ml INH RQ6 [facility] Last Admin: 03/05/18 07:29 Dose: 3 ml Amlodipine Besylate (Norvasc) 10 mg PO DAILY [facility] Last Admin: 03/05/18 09:59 Dose: 10 mg Dextrose (Dextrose 50% Inj) 0 ml IV STAT PRN; Protocol PRN Reason: Hypoglycemia Protocol Dextrose (Glutose 15) 0 gm PO ONCE PRN; Protocol PRN Reason: Hypoglycemia Protocol Furosemide (Lasix) 20 mg IVP DAILY [facility] Last Admin: 03/05/18 10:05 Dose: 20 mg Glucagon (Glucagen Diagnostic Kit) 0 mg IM STAT PRN; Protocol PRN Reason: Hypoglycemia Protocol Hydrochlorothiazide (Microzide) 12.5 mg PO DAILY [facility] Last Admin: 03/05/18 09:59 Dose: 12.5 mg Azithromycin 500 mg/ Sodium (Chloride) 250 mls @ 250 mls/hr IVPB DAILY [facility]; Protocol Last Admin: 03/05/18 10:25 Dose: 250 mls/hr Dextrose (Dextrose 5% In Water 1000 Ml) 1,000 mls @ 0 mls/hr IV .Q0M PRN; Protocol PRN Reason: Hypoglycemia Protocol Piperacillin Sod/Tazobactam (Sod 2.25 gm/ Sodium Chloride) 100 mls @ 200 mls/hr IVPB Q6H [facility]; Protocol Influenza Virus Vaccine (Fluzone Quad [id number]) 60 mcg IM .ONCE ONE Stop: 03/06/18 14:01 Insulin Aspart (Novolog) 0 unit SC ACHS [facility]; Protocol Last Admin: 03/05/18 12:26 Dose: 2 unit Levothyroxine Sodium (Synthroid) 100 mcg PO DAILY@0630 [facility] Last Admin: 03/05/18 05:35 Dose: 100 mcg Metoprolol Succinate (Toprol Xl) 25 mg PO DAILY [facility] Last Admin: 03/05/18 10:00 Dose: 25 mg Prasugrel (Effient) 10 mg PO DAILY [facility] Last Admin: 03/05/18 10:14 Dose: 10 mg Rosuvastatin Calcium (Crestor) 10 mg PO HS [facility] Last Admin: 03/04/18 21:36 Dose: 10 mg Saccharomyces Boulardii (Florastor) 250 mg PO BID [facility] Last Admin: 03/05/18 10:02 Dose: 250 mg Sitagliptin Phosphate (Januvia) 25 mg PO DAILY [facility] Last Admin: 03/05/18 10:32 Dose: 25 mg Physical Exam - Constitutional Appears: No Acute Distress, Chronically Ill - Head Exam Head Exam: ATRAUMATIC, NORMAL INSPECTION - Eye Exam Eye Exam: EOMI, Normal appearance - Neck Exam Neck exam: Positive for: Normal Inspection. Negative for: Tenderness - Respiratory Exam Respiratory Exam: Rhonchi, NORMAL BREATHING PATTERN - Cardiovascular Exam Cardiovascular Exam: REGULAR RHYTHM, +S1 - GI/Abdominal Exam GI & Abdominal Exam: Soft. absent: Tenderness - Extremities Exam Extremities exam: Positive for: normal inspection. Negative for: tenderness - Neurological Exam Neurological exam: Alert, CN II-XII Intact - Skin Skin Exam: Dry, Warm Results - Vital Signs Recent Vital Signs: Last Vital Signs Temp 99 F 03/05/18 08:00 Pulse 85 03/05/18 12:00 Resp 20 03/05/18 08:00 BP 143/58 L 03/05/18 10:05 Pulse Ox 94 L 03/05/18 08:00 - Labs Result Diagrams: 03/04/18 14:47 03/05/18 02:56 Labs: Laboratory Results - last 24 hr 03/04/18 03/04/18 03/04/18 14:47 14:47 16:47 WBC 19.2 H D RBC 2.92 L Hgb 8.7 L Hct 26.7 L MCV 91.3 MCH 29.8 MCHC 32.6 L RDW 17.8 H Plt Count 93 L D MPV 9.8 Neut % (Auto) 62.9 Lymph % (Auto) 11.2 L [place] % (Auto) 25.1 H Eos % (Auto) 0.6 Baso % (Auto) 0.2 Neut # (Auto) 12.1 H Lymph # (Auto) 2.1 [place] # (Auto) 4.8 H Eos # (Auto) 0.1 Baso # (Auto) 0.0 Neutrophils % (Manual) 61 Band Neutrophils % 3 H Lymphocytes % (Manual) 14 L Monocytes % (Manual) 22 H Platelet Estimate Decreased L Large Platelets Present Polychromasia Slight Hypochromasia (manual) Slight Anisocytosis (manual) Moderate Sodium 142 Potassium 4.2 Chloride 107 Carbon Dioxide 26 Anion Gap 14 BUN 35 H Creatinine 2.2 H Est GFR ( Amer) 26 Est GFR (Non-Af Amer) 21 POC Glucose (mg/dL) Random Glucose 162 H Calcium 9.0 Phosphorus Magnesium Total Bilirubin 0.6 AST 14 ALT 13 Alkaline Phosphatase 42 Total Creatine Kinase CK-MB (Mass) Troponin I < 0.0120 NT-Pro-B Natriuret Pep 3760 H Total Protein 7.7 Albumin 3.8 Globulin 3.9 Albumin/Globulin Ratio 1.0 Triglycerides Cholesterol LDL Cholesterol Direct HDL Cholesterol TSH 3rd Generation Influenza Typ A,B (EIA) Negative for flu a/b H.influenzae Type B Ag Ur L.pneumophila Ag N.meningitidis ACY/W135 N.meningi B/E.coli K1 Ag Group B Strep Antigen S. pneumoniae Antigen 03/04/18 03/04/18 03/04/18 21:09 21:09 21:21 WBC RBC Hgb Hct MCV MCH MCHC RDW Plt Count MPV Neut % (Auto) Lymph % (Auto) [place] % (Auto) Eos % (Auto) Baso % (Auto) Neut # (Auto) Lymph # (Auto) [place] # (Auto) Eos # (Auto) Baso # (Auto) Neutrophils % (Manual) Band Neutrophils % Lymphocytes % (Manual) Monocytes % (Manual) Platelet Estimate Large Platelets Polychromasia Hypochromasia (manual) Anisocytosis (manual) Sodium Potassium Chloride Carbon Dioxide Anion Gap BUN Creatinine Est GFR ( Amer) Est GFR (Non-Af Amer) POC Glucose (mg/dL) 143 H Random Glucose Calcium Phosphorus Magnesium Total Bilirubin AST ALT Alkaline Phosphatase Total Creatine Kinase CK-MB (Mass) Troponin I < 0.0120 NT-Pro-B Natriuret Pep Total Protein Albumin Globulin Albumin/Globulin Ratio Triglycerides Cholesterol LDL Cholesterol Direct HDL Cholesterol TSH 3rd Generation Influenza Typ A,B (EIA) H.influenzae Type B Ag Not required Ur L.pneumophila Ag N.meningitidis ACY/W135 Not required N.meningi B/E.coli K1 Ag Not required Group B Strep Antigen Not required S. pneumoniae Antigen Negative 03/05/18 03/05/18 03/05/18 02:56 06:40 09:16 WBC RBC Hgb Hct MCV MCH MCHC RDW Plt Count MPV Neut % (Auto) Lymph % (Auto) [place] % (Auto) Eos % (Auto) Baso % (Auto) Neut # (Auto) Lymph # (Auto) [place] # (Auto) Eos # (Auto) Baso # (Auto) Neutrophils % (Manual) Band Neutrophils % Lymphocytes % (Manual) Monocytes % (Manual) Platelet Estimate Large Platelets Polychromasia Hypochromasia (manual) Anisocytosis (manual) Sodium 140 Potassium 4.0 Chloride 107 Carbon Dioxide 23 Anion Gap 14 BUN 38 H Creatinine 2.3 H Est GFR ( Amer) 25 Est GFR (Non-Af Amer) 20 POC Glucose (mg/dL) 190 H Random Glucose 203 H Calcium 9.0 Phosphorus 3.3 Magnesium 2.0 Total Bilirubin 0.6 AST 12 L ALT 13 Alkaline Phosphatase 47 Total Creatine Kinase 21 L CK-MB (Mass) 0.44 Troponin I 0.0220 NT-Pro-B Natriuret Pep 4110 H Total Protein 7.6 Albumin 3.8 Globulin 3.9 Albumin/Globulin Ratio 1.0 Triglycerides 95 D Cholesterol 124 LDL Cholesterol Direct 49 HDL Cholesterol 38 TSH 3rd Generation 4.99 H Influenza Typ A,B (EIA) H.influenzae Type B Ag Negative Ur L.pneumophila Ag N.meningitidis ACY/W135 Negative N.meningi B/E.coli K1 Ag Negative Group B Strep Antigen Negative S. pneumoniae Antigen Negative 03/05/18 03/05/18 09:29 11:30 WBC RBC Hgb Hct MCV MCH MCHC RDW Plt Count MPV Neut % (Auto) Lymph % (Auto) [place] % (Auto) Eos % (Auto) Baso % (Auto) Neut # (Auto) Lymph # (Auto) [place] # (Auto) Eos # (Auto) Baso # (Auto) Neutrophils % (Manual) Band Neutrophils % Lymphocytes % (Manual) Monocytes % (Manual) Platelet Estimate Large Platelets Polychromasia Hypochromasia (manual) Anisocytosis (manual) Sodium Potassium Chloride Carbon Dioxide Anion Gap BUN Creatinine Est GFR ( Amer) Est GFR (Non-Af Amer) POC Glucose (mg/dL) 203 H Random Glucose Calcium Phosphorus Magnesium Total Bilirubin AST ALT Alkaline Phosphatase Total Creatine Kinase CK-MB (Mass) Troponin I NT-Pro-B Natriuret Pep Total Protein Albumin Globulin Albumin/Globulin Ratio Triglycerides Cholesterol LDL Cholesterol Direct HDL Cholesterol TSH 3rd Generation Influenza Typ A,B (EIA) H.influenzae Type B Ag Ur L.pneumophila Ag Negative N.meningitidis ACY/W135 N.meningi B/E.coli K1 Ag Group B Strep Antigen S. pneumoniae Antigen Assessment & Plan (1) CKD (chronic kidney disease) stage 4, GFR 15-29 ml/min Status: Acute (2) Hypothyroidism Status: Acute (3) CHF (congestive heart failure) Status: Acute (4) Hypothyroidism Status: Acute - Assessment and Plan (Free Text) Plan: treat CHF renal US protein excretion rate
[2018-03-05 13:55] LABS: BASO % 0.2 % (0.0-2.0); EOS % 0.2 % (0.0-4.0); HEMOGLOBIN 8.2 g/dL (11.0-16.0); LYMPH # 1.8 K/uL (1.0-4.3); LYMPH % 6.3 % (20.0-40.0); MEAN CELL VOLUME 90.8 fL (81.0-99.0); MEAN CORPUSCULAR HEMOGLOBIN 29.4 pg (27.0-31.0); MEAN CORPUSCULAR HGB CONC 32.4 g/dL (33.0-37.0); MEAN PLATELET VOLUME 10.5 fL (7.2-11.7); MONO % 28.7 % (0.0-10.0); NEUT # 17.9 K/uL (1.8-7.0); NEUT % 64.6 % (50.0-75.0); PLATELET COUNT 100 K/uL (130-400); RED CELL DISTRIBUTION WIDTH 17.2 % (11.5-14.5); WHITE BLOOD COUNT 27.8 K/uL (4.8-10.8)
[2018-03-05 14:47] LABS: BANDS 2 % (0-2); LYMPHOCYTE 6 % (20-40); TOTAL CELLS COUNTED 100
[2018-03-05 14:48] LABS: ANISOCYTOSIS SLIGHT; HYPOCHROMIC SLIGHT; MONOCYTE 21 % (0-10); NEUTROPHIL 71 % (50-75); PLATELET ESTIMATE SLIGHTLY DECREASED (NORMAL); STOMATOCYTES SLIGHT
[2018-03-05] MEDS: Piperacillin/Tazobact 2.25 GM in Sodium Chloride 100 ML IVPB SCH ×3 (15:17→23:56)
--- NOTE | 2018-03-05 15:38 | US ---
Date of service: 03/05/2018 PROCEDURE: Ultrasound of the Kidneys HISTORY: ckd COMPARISON: 03/20/2017. TECHNIQUE: Grayscale imaging was performed. FINDINGS: RIGHT KIDNEY: Measures: 10.4 cm. Normal in size, contour with mild diffuse increased echogenicity. No stone, solid mass lesion or hydronephrosis visualized. LEFT KIDNEY: Measures: 9.2 cm. Normal in size, contour with mild diffuse increased echogenicity. No stone, solid mass lesion or hydronephrosis visualized. OTHER FINDINGS: None. IMPRESSION: Chronic renal parenchymal disease. No hydronephrosis or nephrolithiasis.
[2018-03-05 18:09] LABS: SQUAMOUS EPITHIAL 5 /hpf (0-5); URINE BACTERIA RARE (<OCC); URINE BILIRUBIN NEGATIVE (NEGATIVE); URINE BLOOD 2+ (NEGATIVE); URINE CLARITY Clear (Clear); URINE COLOR Yellow (YELLOW); URINE GLUCOSE (UA) NORMAL (Normal); URINE LEUKOCYTE ESTERASE NEG Leu/uL (Negative); URINE PROTEIN 1+ mg/dL (NEGATIVE); URINE UROBILINOGEN NORMAL mg/dL (0.2-1.0)
--- NOTE | 2018-03-05 19:26 | CP.PCM.CON ---
History of Present Illness - History of Present Illness History of Present Illness: 82-year-old female with history of COPD, ENRIQUE presents with progressively worsening dyspnea and left-sided chest pain. Patient also reported nonproductive cough but denies any fever, chills, night sweats, hemoptysis or weight loss. CT chest is consistent with pulmonary edema and bibasilar consolidations left greater than right. Patient reports to be feeling symptomatically better. Review of Systems - Review of Systems All systems: reviewed and no additional remarkable complaints except (See HPI) Past Patient History - Infectious Disease Hx of Infectious Diseases: None - Tetanus Immunizations Tetanus Immunization: Unknown - Past Medical History & Family History Past Medical History?: Yes Past Family History: Reviewed and not pertinent - Past Social History Smoking Status: Never Smoked Chewing Tobacco Use: No Cigar Use: No Alcohol: None Drugs: Denies Home Situation {Lives}: With Family - CARDIAC Hx Hypertension: Yes - PULMONARY Hx Chronic Obstructive Pulmonary Disease (COPD): Yes - NEUROLOGICAL Hx Neurological Disorder: No - HEENT Hx HEENT Problems: Yes Hx Cataracts: Yes Other/Comment: corneal replacement both eyes - RENAL Hx Chronic Kidney Disease: Yes Hx Kidney Stones: Yes - ENDOCRINE/METABOLIC Hx Hypothyroidism: Yes - HEMATOLOGICAL/ONCOLOGICAL Hx Anemia: Yes - INTEGUMENTARY Hx Dermatological Problems: No - MUSCULOSKELETAL/RHEUMATOLOGICAL Hx Arthritis: Yes - GASTROINTESTINAL Hx Gastritis: Yes - GENITOURINARY/GYNECOLOGICAL Hx Genitourinary Disorders: No - PSYCHIATRIC Hx Substance Use: No - SURGICAL HISTORY Hx Surgeries: Yes Other/Comment: vascular stents. bone marrow aspiration - ANESTHESIA Hx Anesthesia: Yes Hx Anesthesia Reactions: No Meds Allergies/Adverse Reactions: Allergies Allergy/AdvReac Type Severity Reaction Status Date / Time No Known Allergies Allergy Verified 03/19/17 06:06 - Medications Medications: Current Medications Albuterol/Ipratropium (Duoneb 3 Mg/0.5 Mg (3 Ml) Ud) 3 ml INH RQ6 [facility] Last Admin: 03/05/18 19:16 Dose: 3 ml Amlodipine Besylate (Norvasc) 10 mg PO DAILY [facility] Last Admin: 03/05/18 09:59 Dose: 10 mg Dextrose (Dextrose 50% Inj) 0 ml IV STAT PRN; Protocol PRN Reason: Hypoglycemia Protocol Dextrose (Glutose 15) 0 gm PO ONCE PRN; Protocol PRN Reason: Hypoglycemia Protocol Furosemide (Lasix) 20 mg IVP DAILY [facility] Last Admin: 03/05/18 10:05 Dose: 20 mg Glucagon (Glucagen Diagnostic Kit) 0 mg IM STAT PRN; Protocol PRN Reason: Hypoglycemia Protocol Hydrochlorothiazide (Microzide) 12.5 mg PO DAILY [facility] Last Admin: 03/05/18 09:59 Dose: 12.5 mg Azithromycin 500 mg/ Sodium (Chloride) 250 mls @ 250 mls/hr IVPB DAILY [facility]; Protocol Last Admin: 03/05/18 10:25 Dose: 250 mls/hr Dextrose (Dextrose 5% In Water 1000 Ml) 1,000 mls @ 0 mls/hr IV .Q0M PRN; Protocol PRN Reason: Hypoglycemia Protocol Piperacillin Sod/Tazobactam (Sod 2.25 gm/ Sodium Chloride) 100 mls @ 200 mls/hr IVPB Q6H [facility]; Protocol Last Admin: 03/05/18 18:04 Dose: 200 mls/hr Influenza Virus Vaccine (Fluzone Quad [id number]) 60 mcg IM .ONCE ONE Stop: 03/06/18 14:01 Insulin Aspart (Novolog) 0 unit SC ACHS [facility]; Protocol Last Admin: 03/05/18 18:00 Dose: Not Given Levothyroxine Sodium (Synthroid) 100 mcg PO DAILY@0630 [facility] Last Admin: 03/05/18 05:35 Dose: 100 mcg Metoprolol Succinate (Toprol Xl) 25 mg PO DAILY [facility] Last Admin: 03/05/18 10:00 Dose: 25 mg Prasugrel (Effient) 10 mg PO DAILY [facility] Last Admin: 03/05/18 10:14 Dose: 10 mg Rosuvastatin Calcium (Crestor) 10 mg PO HS [facility] Last Admin: 03/04/18 21:36 Dose: 10 mg Saccharomyces Boulardii (Florastor) 250 mg PO BID [facility] Last Admin: 03/05/18 18:04 Dose: 250 mg Sitagliptin Phosphate (Januvia) 25 mg PO DAILY [facility] Last Admin: 03/05/18 10:32 Dose: 25 mg Physical Exam - Head Exam Head Exam: NORMAL INSPECTION - Eye Exam Eye Exam: Normal appearance - ENT Exam ENT Exam: Mucous Membranes Moist - Respiratory Exam Respiratory Exam: Rales, Rhonchi - Cardiovascular Exam Cardiovascular Exam: REGULAR RHYTHM, +S1, +S2 - GI/Abdominal Exam GI & Abdominal Exam: Normal Bowel Sounds, Soft - Neurological Exam Neurological exam: Alert, Oriented x3 - Psychiatric Exam Psychiatric exam: Normal Affect, Normal Mood Results - Vital Signs Recent Vital Signs: Last Vital Signs Temp 98.9 F 03/05/18 16:01 Pulse 85 03/05/18 18:00 Resp 20 03/05/18 16:01 BP 154/61 H 03/05/18 16:01 Pulse Ox 94 L 03/05/18 16:01 - Labs Result Diagrams: 03/05/18 13:39 03/05/18 02:56 Labs: Laboratory Results - last 24 hr 03/04/18 03/04/18 03/04/18 21:09 21:09 21:09 WBC RBC Hgb Hct MCV MCH MCHC RDW Plt Count MPV Neut % (Auto) Lymph % (Auto) Ocean % (Auto) Eos % (Auto) Baso % (Auto) Neut # (Auto) Lymph # (Auto) Ocean # (Auto) Eos # (Auto) Baso # (Auto) Neutrophils % (Manual) Band Neutrophils % Lymphocytes % (Manual) Monocytes % (Manual) Platelet Estimate Hypochromasia (manual) Anisocytosis (manual) Stomatocytes Sodium Potassium Chloride Carbon Dioxide Anion Gap BUN Creatinine Est GFR ( Amer) Est GFR (Non-Af Amer) POC Glucose (mg/dL) Random Glucose Calcium Phosphorus Magnesium Total Bilirubin AST ALT Alkaline Phosphatase Total Creatine Kinase CK-MB (Mass) Troponin I < 0.0120 NT-Pro-B Natriuret Pep Total Protein Albumin Globulin Albumin/Globulin Ratio Triglycerides Cholesterol LDL Cholesterol Direct HDL Cholesterol TSH 3rd Generation Urine Color Urine Clarity Urine pH Ur Specific [place] Urine Protein Urine Glucose (UA) Urine Ketones Urine Blood Urine Nitrate Urine Bilirubin Urine Urobilinogen Ur Leukocyte Esterase Urine WBC (Auto) Urine RBC (Auto) Ur Squamous Epith Cells Urine Bacteria Hyaline Casts H.influenzae Type B Ag Not required Ur L.pneumophila Ag Mycoplasma pneumon IgM Negative N.meningitidis ACY/W135 Not required N.meningi B/E.coli K1 Ag Not required Group B Strep Antigen Not required S. pneumoniae Antigen Negative 03/04/18 03/05/18 03/05/18 21:21 02:56 06:40 WBC RBC Hgb Hct MCV MCH MCHC RDW Plt Count MPV Neut % (Auto) Lymph % (Auto) Ocean % (Auto) Eos % (Auto) Baso % (Auto) Neut # (Auto) Lymph # (Auto) Ocean # (Auto) Eos # (Auto) Baso # (Auto) Neutrophils % (Manual) Band Neutrophils % Lymphocytes % (Manual) Monocytes % (Manual) Platelet Estimate Hypochromasia (manual) Anisocytosis (manual) Stomatocytes Sodium 140 Potassium 4.0 Chloride 107 Carbon Dioxide 23 Anion Gap 14 BUN 38 H Creatinine 2.3 H Est GFR ( Amer) 25 Est GFR (Non-Af Amer) 20 POC Glucose (mg/dL) 143 H 190 H Random Glucose 203 H Calcium 9.0 Phosphorus 3.3 Magnesium 2.0 Total Bilirubin 0.6 AST 12 L ALT 13 Alkaline Phosphatase 47 Total Creatine Kinase 21 L CK-MB (Mass) 0.44 Troponin I 0.0220 NT-Pro-B Natriuret Pep 4110 H Total Protein 7.6 Albumin 3.8 Globulin 3.9 Albumin/Globulin Ratio 1.0 Triglycerides 95 D Cholesterol 124 LDL Cholesterol Direct 49 HDL Cholesterol 38 TSH 3rd Generation 4.99 H Urine Color Urine Clarity Urine pH Ur Specific [place] Urine Protein Urine Glucose (UA) Urine Ketones Urine Blood Urine Nitrate Urine Bilirubin Urine Urobilinogen Ur Leukocyte Esterase Urine WBC (Auto) Urine RBC (Auto) Ur Squamous Epith Cells Urine Bacteria Hyaline Casts H.influenzae Type B Ag Ur L.pneumophila Ag Mycoplasma pneumon IgM N.meningitidis ACY/W135 N.meningi B/E.coli K1 Ag Group B Strep Antigen S. pneumoniae Antigen 03/05/18 03/05/18 03/05/18 09:16 09:29 11:30 WBC RBC Hgb Hct MCV MCH MCHC RDW Plt Count MPV Neut % (Auto) Lymph % (Auto) Ocean % (Auto) Eos % (Auto) Baso % (Auto) Neut # (Auto) Lymph # (Auto) Ocean # (Auto) Eos # (Auto) Baso # (Auto) Neutrophils % (Manual) Band Neutrophils % Lymphocytes % (Manual) Monocytes % (Manual) Platelet Estimate Hypochromasia (manual) Anisocytosis (manual) Stomatocytes Sodium Potassium Chloride Carbon Dioxide Anion Gap BUN Creatinine Est GFR ( Amer) Est GFR (Non-Af Amer) POC Glucose (mg/dL) 203 H Random Glucose Calcium Phosphorus Magnesium Total Bilirubin AST ALT Alkaline Phosphatase Total Creatine Kinase CK-MB (Mass) Troponin I NT-Pro-B Natriuret Pep Total Protein Albumin Globulin Albumin/Globulin Ratio Triglycerides Cholesterol LDL Cholesterol Direct HDL Cholesterol TSH 3rd Generation Urine Color Urine Clarity Urine pH Ur Specific [place] Urine Protein Urine Glucose (UA) Urine Ketones Urine Blood Urine Nitrate Urine Bilirubin Urine Urobilinogen Ur Leukocyte Esterase Urine WBC (Auto) Urine RBC (Auto) Ur Squamous Epith Cells Urine Bacteria Hyaline Casts H.influenzae Type B Ag Negative Ur L.pneumophila Ag Negative Mycoplasma pneumon IgM N.meningitidis ACY/W135 Negative N.meningi B/E.coli K1 Ag Negative Group B Strep Antigen Negative S. pneumoniae Antigen Negative 03/05/18 03/05/18 03/05/18 13:39 16:24 18:04 WBC 27.8 H RBC 2.80 L Hgb 8.2 L Hct 25.5 L MCV 90.8 MCH 29.4 MCHC 32.4 L RDW 17.2 H Plt Count 100 L MPV 10.5 Neut % (Auto) 64.6 Lymph % (Auto) 6.3 L Ocean % (Auto) 28.7 H Eos % (Auto) 0.2 Baso % (Auto) 0.2 Neut # (Auto) 17.9 H Lymph # (Auto) 1.8 Ocean # (Auto) 8.0 H Eos # (Auto) 0.0 Baso # (Auto) 0.0 Neutrophils % (Manual) 71 Band Neutrophils % 2 Lymphocytes % (Manual) 6 L Monocytes % (Manual) 21 H Platelet Estimate Slightly decreased L Hypochromasia (manual) Slight Anisocytosis (manual) Slight Stomatocytes Slight Sodium Potassium Chloride Carbon Dioxide Anion Gap BUN Creatinine Est GFR ( Amer) Est GFR (Non-Af Amer) POC Glucose (mg/dL) 152 H Random Glucose Calcium Phosphorus Magnesium Total Bilirubin AST ALT Alkaline Phosphatase Total Creatine Kinase CK-MB (Mass) Troponin I NT-Pro-B Natriuret Pep Total Protein Albumin Globulin Albumin/Globulin Ratio Triglycerides Cholesterol LDL Cholesterol Direct HDL Cholesterol TSH 3rd Generation Urine Color Yellow Urine Clarity Clear Urine pH 5.0 Ur Specific [place] 1.009 Urine Protein 1+ H Urine Glucose (UA) Normal Urine Ketones Negative Urine Blood 2+ H Urine Nitrate Negative Urine Bilirubin Negative Urine Urobilinogen Normal Ur Leukocyte Esterase Neg Urine WBC (Auto) 3 Urine RBC (Auto) 8 H Ur Squamous Epith Cells 5 Urine Bacteria Rare Hyaline Casts 6-10 H H.influenzae Type B Ag Ur L.pneumophila Ag Mycoplasma pneumon IgM N.meningitidis ACY/W135 N.meningi B/E.coli K1 Ag Group B Strep Antigen S. pneumoniae Antigen Assessment & Plan (1) Obstructive sleep apnea Status: Acute (2) CKD (chronic kidney disease) stage 4, GFR 15-29 ml/min Status: Acute (3) Pleural effusion Status: Acute (4) Pneumonia Status: Acute (5) Type II diabetes mellitus Status: Acute (6) CHF (congestive heart failure) Status: Acute - Assessment and Plan (Free Text) Plan: Continue Zosyn Follow cultures Bronchodilators Oxygen supplementation BiPAP at night, ice/E 04/19, FiO2 30% Lasix Pleural effusion are too small to tap DVT/GI prophylaxis
[2018-03-06] MEDS: Albuterol-Ipratrop 3 mg / 0.5 (3 ml) UD INH SCH ×6 (01:36→23:36)
[2018-03-06] MEDS: Levothyroxine 100 MCG TAB PO SCH (05:30)
[2018-03-06] MEDS: Piperacillin/Tazobact 2.25 GM in Sodium Chloride 100 ML IVPB SCH ×3 (05:32→18:35)
[2018-03-06 07:33] LABS: BASO # 0.1 K/uL (0.0-0.2); BASO % 0.2 % (0.0-2.0); EOS % 0.1 % (0.0-4.0); HEMOGLOBIN 8.3 g/dL (11.0-16.0); LYMPH % 5.5 % (20.0-40.0); MEAN CORPUSCULAR HEMOGLOBIN 29.4 pg (27.0-31.0); MEAN CORPUSCULAR HGB CONC 32.3 g/dL (33.0-37.0); MEAN PLATELET VOLUME 10.3 fL (7.2-11.7); MONO # 8.7 K/uL (0.0-0.8); MONO % 24.1 % (0.0-10.0); NEUT # 25.4 K/uL (1.8-7.0); NEUT % 70.1 % (50.0-75.0); PLATELET COUNT 113 K/uL (130-400); RBC 2.84 Mil/uL (3.80-5.20); RED CELL DISTRIBUTION WIDTH 17.1 % (11.5-14.5); WHITE BLOOD COUNT 36.2 K/uL (4.8-10.8)
[2018-03-06 07:38] LABS: INR 1.4; PROTHROMBIN TIME 15.7 SECONDS (9.7-12.2)
[2018-03-06 08:11] LABS: ALBUMIN 3.9 g/dL (3.5-5.0); CALCIUM 8.9 mg/dl (8.6-10.4)
[2018-03-06] MEDS: (Novolog) Insulin Aspart, Recombinant 100 u/ml 10 ml vial SC SCH ×4 (08:24→21:40)
--- NOTE | 2018-03-06 09:09 | PCM.RRT ---
<Sam Carrasco - Last Filed: 03/06/18 09:11> NETWORK ANALYST Nurses Assessment - Situation Date: 03/06/18 Time NETWORK ANALYST was called: 09:08 NETWORK ANALYST Location:: Med/Surg NETWORK ANALYST Reason for Call: O2 Saturation below 90% NETWORK ANALYST Called By: RN - Respiratory NETWORK ANALYST Delivery Method: BiPAP @% (increased from 40 to 50) - Ventilator Settings FIO2 (% Oxygen): 40 - Vital Signs at end of NETWORK ANALYST Vital Signs at end of NETWORK ANALYST: P 103, bp143/56, spO2 88% on BIPAP 40% fiO2, Plan - Assessment of Findings&Treatment Plan increased spO2 to 50% <Liz Hammer - Last Filed: 03/10/18 16:54> NETWORK ANALYST Nurses Assessment - Vital Signs Vital Signs: Rapid Response Vital Sign Blood Pressure 175/75 Pulse Rate 104 Respiratory Rate 36 Oxygen Saturation 82 - Vital Signs at end of NETWORK ANALYST Vital Signs at end of NETWORK ANALYST: Rapid Response End Vital Sign Blood Pressure 156/61 Pulse Rate 98 Respiratory Rate 26 O2 Sat by Pulse Oximetry 94 Attending/Attestation - Attestation I have personally seen and examined this patient.: Yes I have fully participated in the care of the patient.: Yes I have reviewed all pertinent clinical information, including history, physical exam and plan: Yes
[2018-03-06] MEDS: Azithromycin 500 MG in Sodium Chloride 0.9% 250 ML IVPB SCH (09:47)
[2018-03-06] MEDS: Metoprolol Succinate 25 mg XL Tab PO SCH (09:49)
[2018-03-06] MEDS: guaiFENesin 600 mg ER Tab PO SCH ×2 (09:49→18:35)
[2018-03-06] MEDS: Saccharomyces Boulardi 250 mg Cap PO SCH ×2 (09:50→18:35)
[2018-03-06 10:19] LABS: BANDS 2 % (0-2); LYMPHOCYTE 6 % (20-40); MONOCYTE 16 % (0-10); MYELOCYTE 1 % (0-0); NEUTROPHIL 75 % (50-75); PLATELET ESTIMATE SLIGHTLY DECREASED (NORMAL); TOTAL CELLS COUNTED 100
[2018-03-06 10:20] LABS: ANISOCYTOSIS SLIGHT; HYPOCHROMIC SLIGHT
[2018-03-06 10:47] LABS: ABG ALLEN TEST POS; ARTERIAL BLOOD GAS HCO3 23.7 mmol/L (21-28); ARTERIAL BLOOD GAS HEMOGLOBIN 8.6 g/dL (11.7-17.4); ARTERIAL BLOOD GAS O2 SAT 93.5 % (95-98); ARTERIAL BLOOD GAS PCO2 34 mm/Hg (35-45); ARTERIAL BLOOD GAS PH 7.43 (7.35-7.45); ARTERIAL BLOOD GAS PO2 55 mm/Hg (80-100); ARTERIAL BLOOD GAS TCO2 23.6 mmol/L (22-28)
--- NOTE | 2018-03-06 11:24 | CP.PCM.PN ---
Subjective - Date & Time of Evaluation Date of Evaluation: 03/06/18 Time of Evaluation: 11:23 - Subjective Subjective: hypoxia, on bipap since last night good uop given lasix 40 mg iv x 1 this am bp stable Objective - Vital Signs/Intake and Output Vital Signs (last 24 hours): Temp Pulse Resp BP Pulse Ox 98.5 F 98 H 26 H 158/66 H 94 L 03/06/18 07:00 03/06/18 09:11 03/06/18 09:11 03/06/18 09:50 03/06/18 09:11 Intake and Output: 03/06/18 03/06/18 06:59 18:59 Intake Total 530 Balance 530 - Medications Medications: Current Medications Acetylcysteine (Acetylcysteine 20%) 4 ml INH Q4 [facility] Albuterol/Ipratropium (Duoneb 3 Mg/0.5 Mg (3 Ml) Ud) 3 ml INH Q4 [facility] Amlodipine Besylate (Norvasc) 10 mg PO DAILY [facility] Last Admin: 03/06/18 09:50 Dose: 10 mg Dextrose (Dextrose 50% Inj) 0 ml IV STAT PRN; Protocol PRN Reason: Hypoglycemia Protocol Dextrose (Glutose 15) 0 gm PO ONCE PRN; Protocol PRN Reason: Hypoglycemia Protocol Docusate Sodium (Colace) 100 mg PO BID [facility] Last Admin: 03/06/18 11:14 Dose: Not Given Furosemide (Lasix) 20 mg IVP DAILY [facility] Last Admin: 03/06/18 09:50 Dose: 20 mg Glucagon (Glucagen Diagnostic Kit) 0 mg IM STAT PRN; Protocol PRN Reason: Hypoglycemia Protocol Guaifenesin (Mucinex La) 600 mg PO BID [facility] Last Admin: 03/06/18 09:49 Dose: 600 mg Hydrochlorothiazide (Microzide) 12.5 mg PO DAILY [facility] Last Admin: 03/06/18 09:49 Dose: 12.5 mg Azithromycin 500 mg/ Sodium (Chloride) 250 mls @ 250 mls/hr IVPB DAILY [facility]; Protocol Last Admin: 03/06/18 09:47 Dose: 250 mls/hr Dextrose (Dextrose 5% In Water 1000 Ml) 1,000 mls @ 0 mls/hr IV .Q0M PRN; Protocol PRN Reason: Hypoglycemia Protocol Piperacillin Sod/Tazobactam (Sod 2.25 gm/ Sodium Chloride) 100 mls @ 200 mls/hr IVPB Q6H [facility]; Protocol Last Admin: 03/06/18 05:32 Dose: 200 mls/hr Influenza Virus Vaccine (Fluzone Quad [id number]) 60 mcg IM .ONCE ONE Stop: 03/06/18 14:01 Insulin Aspart (Novolog) 0 unit SC ACHS [facility]; Protocol Last Admin: 03/06/18 08:24 Dose: 1 unit Levothyroxine Sodium (Synthroid) 100 mcg PO DAILY@0630 [facility] Last Admin: 03/06/18 05:30 Dose: 100 mcg Metoprolol Succinate (Toprol Xl) 25 mg PO DAILY [facility] Last Admin: 03/06/18 09:49 Dose: 25 mg Prasugrel (Effient) 10 mg PO DAILY [facility] Last Admin: 03/06/18 09:49 Dose: 10 mg Rosuvastatin Calcium (Crestor) 10 mg PO HS [facility] Last Admin: 03/05/18 21:47 Dose: 10 mg Saccharomyces Boulardii (Florastor) 250 mg PO BID [facility] Last Admin: 03/06/18 09:50 Dose: 250 mg Sitagliptin Phosphate (Januvia) 25 mg PO DAILY [facility] Last Admin: 03/06/18 09:49 Dose: 25 mg - Labs Labs: 03/06/18 07:17 03/06/18 07:17 PT 15.7 SECONDS (9.7-12.2) H 03/06/18 07:17 INR 1.4 03/06/18 07:17 - Constitutional Appears: Non-toxic, No Acute Distress, Chronically Ill - Head Exam Head Exam: NORMAL INSPECTION, NORMOCEPHALIC - Eye Exam Eye Exam: Normal appearance, PERRL - ENT Exam ENT Exam: Mucous Membranes Moist, Normal Exam - Neck Exam Neck Exam: Full ROM, Normal Inspection - Respiratory Exam Respiratory Exam: Decreased Breath Sounds, Rales (at bases) - Cardiovascular Exam Cardiovascular Exam: REGULAR RHYTHM, RRR - GI/Abdominal Exam GI & Abdominal Exam: Distended, Soft - Extremities Exam Extremities Exam: Full ROM, Normal Inspection - Neurological Exam Neurological Exam: Alert, Awake - Psychiatric Exam Psychiatric exam: Normal Affect, Normal Mood - Skin Skin Exam: Dry, Intact Assessment and Plan (1) CKD (chronic kidney disease) stage 4, GFR 15-29 ml/min Status: Acute (2) Diastolic heart failure Status: Acute (3) Heart failure with normal ejection fraction Status: Acute (4) Pleural effusion Status: Acute (5) Pneumonia Status: Acute (6) Type II diabetes mellitus Status: Acute (7) CMML (chronic myelomonocytic leukemia) Status: Acute - Assessment and Plan (Free Text) Assessment: agree w/ iv lasix, increase to 40mg bid antibiotics, supportive care may need thoracentesis cardiac work up
--- NOTE | 2018-03-06 11:40 | CP.PCM.PN ---
<Cherrie Carrasco - Last Filed: 03/06/18 15:31> Subjective - Date & Time of Evaluation Date of Evaluation: 03/06/18 Time of Evaluation: 11:37 - Subjective Subjective: Cherrie Carrasco PGY1 Progress note for Dr. Hammer Pt was examined at bedside this morning. She continued to complain of shortness of breath and pressure in the chest. She denied headache, chills, chest pain, nausea, vomiting, abdominal pain, diarrhea. BUSINESS MACHINE MECHANIC was called at 9:00 AM today for O2 sat of 82-85% on Bipap. FiO2 was increased to 50, stat duonebs and stat CXR were ordered. Pt was laying comfortably, not in respiratory distress. Objective - Vital Signs/Intake and Output Vital Signs (last 24 hours): Temp Pulse Resp BP Pulse Ox 98.5 F 98 H 26 H 158/66 H 94 L 03/06/18 07:00 03/06/18 09:11 03/06/18 09:11 03/06/18 09:50 03/06/18 09:11 Intake and Output: 03/06/18 03/06/18 06:59 18:59 Intake Total 530 Balance 530 - Medications Medications: Current Medications Acetylcysteine (Acetylcysteine 20%) 4 ml INH Q4 [facility] Albuterol/Ipratropium (Duoneb 3 Mg/0.5 Mg (3 Ml) Ud) 3 ml INH Q4 [facility] Amlodipine Besylate (Norvasc) 10 mg PO DAILY [facility] Last Admin: 03/06/18 09:50 Dose: 10 mg Dextrose (Dextrose 50% Inj) 0 ml IV STAT PRN; Protocol PRN Reason: Hypoglycemia Protocol Dextrose (Glutose 15) 0 gm PO ONCE PRN; Protocol PRN Reason: Hypoglycemia Protocol Docusate Sodium (Colace) 100 mg PO BID [facility] Last Admin: 03/06/18 11:14 Dose: Not Given Furosemide (Lasix) 20 mg IVP DAILY [facility] Last Admin: 03/06/18 09:50 Dose: 20 mg Glucagon (Glucagen Diagnostic Kit) 0 mg IM STAT PRN; Protocol PRN Reason: Hypoglycemia Protocol Guaifenesin (Mucinex La) 600 mg PO BID [facility] Last Admin: 03/06/18 09:49 Dose: 600 mg Hydrochlorothiazide (Microzide) 12.5 mg PO DAILY [facility] Last Admin: 03/06/18 09:49 Dose: 12.5 mg Azithromycin 500 mg/ Sodium (Chloride) 250 mls @ 250 mls/hr IVPB DAILY [facility]; Protocol Last Admin: 03/06/18 09:47 Dose: 250 mls/hr Dextrose (Dextrose 5% In Water 1000 Ml) 1,000 mls @ 0 mls/hr IV .Q0M PRN; Protocol PRN Reason: Hypoglycemia Protocol Piperacillin Sod/Tazobactam (Sod 2.25 gm/ Sodium Chloride) 100 mls @ 200 mls/hr IVPB Q6H [facility]; Protocol Last Admin: 03/06/18 05:32 Dose: 200 mls/hr Influenza Virus Vaccine (Fluzone Quad [id number]) 60 mcg IM .ONCE ONE Stop: 03/06/18 14:01 Insulin Aspart (Novolog) 0 unit SC ACHS [facility]; Protocol Last Admin: 03/06/18 08:24 Dose: 1 unit Levothyroxine Sodium (Synthroid) 100 mcg PO DAILY@0630 [facility] Last Admin: 03/06/18 05:30 Dose: 100 mcg Metoprolol Succinate (Toprol Xl) 25 mg PO DAILY [facility] Last Admin: 03/06/18 09:49 Dose: 25 mg Prasugrel (Effient) 10 mg PO DAILY [facility] Last Admin: 03/06/18 09:49 Dose: 10 mg Rosuvastatin Calcium (Crestor) 10 mg PO HS [facility] Last Admin: 03/05/18 21:47 Dose: 10 mg Saccharomyces Boulardii (Florastor) 250 mg PO BID [facility] Last Admin: 03/06/18 09:50 Dose: 250 mg Sitagliptin Phosphate (Januvia) 25 mg PO DAILY [facility] Last Admin: 03/06/18 09:49 Dose: 25 mg - Labs Labs: 03/06/18 07:17 03/06/18 07:17 PT 15.7 SECONDS (9.7-12.2) H 03/06/18 07:17 INR 1.4 03/06/18 07:17 - Constitutional Appears: Well, No Acute Distress - Head Exam Head Exam: ATRAUMATIC, NORMOCEPHALIC - Eye Exam Eye Exam: EOMI, Normal appearance, PERRL Pupil Exam: NORMAL ACCOMODATION - ENT Exam ENT Exam: Mucous Membranes Dry - Neck Exam Neck Exam: Normal Inspection - Respiratory Exam Respiratory Exam: Clear to Ausculation Bilateral, Rhonchi, Wheezes, NORMAL BREATHING PATTERN. absent: Accessory Muscle Use, Respiratory Distress, Stridor Additional comments: expiratory wheezes in b/l upper lung singh crackles in mid L lung field - Cardiovascular Exam Cardiovascular Exam: REGULAR RHYTHM, +S1, +S2. absent: Gallop, Rubs, Murmur - GI/Abdominal Exam GI & Abdominal Exam: Soft, Normal Bowel Sounds. absent: Distended, Firm, Tenderness - Extremities Exam Extremities Exam: Pedal Edema. absent: Calf Tenderness - Neurological Exam Neurological Exam: Alert, Awake, Oriented x3 - Psychiatric Exam Psychiatric exam: Normal Affect, Normal Mood - Skin Skin Exam: Dry Assessment and Plan - Assessment and Plan (Free Text) Assessment: 82yo F with PMH HTN, DM, HLD, PVD, CKD, COPD, hypothyroid, anemia, nephrolithiasis, leukemia admitted for further evaluation and treatment of pneumonia and pleural effusion. Plan: Pneumonia: - pt afebrile - WBC 36.2 - BUSINESS MACHINE MECHANIC called for O2 sat 82-85% - CXR 03/06: interval worsening consolidations. interval worsening b/l coaslescent airspace opacities consistent with worsening pulmonary edema. concomitant patchy infiltrates. b/l pleural effusions L>R. slight increase in left pleural effusion. compatible with CHF - CT Chest 03/05: CHF vascular pattern, dilated pulmonary artery 3.6cm, consider pulmonary arterial hypertension. mild b/l pleural effusions with atelectasis at b/l lower lobes. underlying pneumonia not excluded. 3mm right apical nonclacified nodule f/u 12 months - Strept pneumo, influenza, urine legionella, m.pneumonia negative - BCx negative x1 - continue azithromycin 1gm IV daily (day 2) - start zosyn 2.25 IV q8h (day 1) - continue Florastor 250mg PO BID - duonebs 3ML INH Q4H [facility] - acetylcysteine 20% 4ml INH q4h [facility] - mucinex 600 mg BID - bipap - CPT - f/u sputum Cx - ICU consulted, Dr. Newton - f/u recs Plueral Effusion: - BUSINESS MACHINE MECHANIC called for O2 sat 82-85% - CXR 03/06: interval worsening consolidations. interval worsening b/l coaslescent airspace opacities consistent with worsening pulmonary edema. concomitant patchy infiltrates. b/l pleural effusions L>R. slight increase in left pleural effusion. compatible with CHF - CT Chest 03/05: CHF vascular pattern, dilated pulmonary artery 3.6cm, consider pulmonary arterial hypertension. mild b/l pleural effusions with atelectasis at b/l lower lobes. underlying pneumonia not excluded. 3mm right apical nonclacified nodule f/u 12 months - AB.43/34/55/23 - BNP 03/05: 4110 - lasix 40mg IV BID - no plan for thoracentesis at this time due to small size of effusions, as per pulm - bipap - CPT - ICU consulted, Dr. Newton - f/u recs - Pulm consulted, Dr. Trevino (follows out pt) - recs appreciated Leukocytosis - WBC 36.2 from 19.4 - likely 2/2 active pneumonia infection - pt with h/o leukemia - BCx negative x1 - CXR 03/06: interval worsening consolidations. interval worsening b/l coaslescent airspace opacities consistent with worsening pulmonary edema. concomitant patchy infiltrates. b/l pleural effusions L>R. slight increase in left pleural effusion. compatible with CHF - CT Chest 03/05: CHF vascular pattern, dilated pulmonary artery 3.6cm, consider pulmonary arterial hypertension. mild b/l pleural effusions with atelectasis at b/l lower lobes. underlying pneumonia not excluded. 3mm right apical nonclacified nodule f/u 12 months - continue zosyn and azythromycin - f/u sputum Cx, UA, urine Cx - Heme/onc consulted, Dr. Avel Enrique - f/u recs Heart failure with normal ejection fraction - BNP 03/06: 4110 - CXR 03/06: interval worsening consolidations. interval worsening b/l coaslescent airspace opacities consistent with worsening pulmonary edema. concomitant patchy infiltrates. b/l pleural effusions L>R. slight increase in left pleural effusion. compatible with CHF - CT Chest 03/05: CHF vascular pattern, dilated pulmonary artery 3.6cm, consider pulmonary arterial hypertension. mild b/l pleural effusions with atelectasis at b/l lower lobes. underlying pneumonia not excluded. 3mm right apical nonclac ified nodule f/u 12 months - Echo (03/31): Normal left ventricular function and normal range EF. No regional wall motion abnormalities noted. Mild to moderate valvular aortic stenosis. Mild to moderate TR and right ventricular systolic pressure is estimated at 40-50mmHg. MR is mild. Please refer to the EMR for complete report. - rpt ECHO done, f/u reading - pt scheduled to have stress test 03/[address] Enrique, dolly operator - lasix 40mg IV BID Renal insufficiency - BUN/Cr: 42/2.8 - past assessment by Dr. Glaser's group: due to NSAID use - renal US: chronic parenchymal disease, no acute findings - f/u protein excretion rate, as per nephro - Nephro consulted, Dr. Glaser- recs appreciated Hypothyroidism - TSH 4.99 - f/u free T4 - continue synthroid 100mcg PO QD Dyslipidemia - T, Chol:124, LDL: 49 and HDL: 38 - continue Crestor 10mg PO HS HTN - Continue home medications: HCTZ 12.5MG PO daily Norvasc 10mg PO daily Toprol XL 25mg PO daily - Continue to monitor Anemia - H/H: 8.3/25.9 - Procrit 1-2 weeks injection outpatient, hold as per Dr. Enrique - Heme/onc consulted, Dr. Avel Enrique - f/u recs COPD - pt reports shortness of breath, likely secondary to active infection and effusion - BUSINESS MACHINE MECHANIC called this AM for O2 sat 82-85% on bipap - AB.43/34/55/23 - duonebs 3ML INH Q4H [facility] - acetylcysteine 20% 4ml INH q4h [facility] - mucinex 600 mg BID - bipap - CPT Thrombocytopenia - Platelet 113 - hold effient is platelet continues to deplete - Heme/onc consulted, Dr. Avel Enrique - f/u recs Peripheral vascular disease - History of stent placement - continue Effient 10mg PO daily, hold if worsening thrombocytopenia Type II DM - HbA1C (09/30/17): 8.3 - Heart healthy diet with low carbohydrate consistency - Accuchecks - Januvia 25mg daily - ISS low dose - Hypoglycemia protocol PPX: DVT: SCDs, effient 10mg PO daily GI: Not indicated PT/OT Patient seen and plan discussed with Dr. Hammer <Liz Hammer - Last Filed: 03/06/18 17:52> Objective - Vital Signs/Intake and Output Vital Signs (last 24 hours): Temp Pulse Resp BP Pulse Ox 98.4 F 89 20 136/59 L 94 L 03/06/18 15:00 03/06/18 16:04 03/06/18 15:00 03/06/18 15:00 03/06/18 15:00 Intake and Output: 03/06/18 03/06/18 06:59 18:59 Intake Total 530 Balance 530 - Medications Medications: Current Medications Acetylcysteine (Acetylcysteine 20%) 4 ml INH Q4 [facility] Last Admin: 03/06/18 16:13 Dose: 4 ml Albuterol/Ipratropium (Duoneb 3 Mg/0.5 Mg (3 Ml) Ud) 3 ml INH Q4 [facility] Last Admin: 03/06/18 16:13 Dose: 3 ml Amlodipine Besylate (Norvasc) 10 mg PO DAILY [facility] Last Admin: 03/06/18 09:50 Dose: 10 mg Dextrose (Dextrose 50% Inj) 0 ml IV STAT PRN; Protocol PRN Reason: Hypoglycemia Protocol Dextrose (Glutose 15) 0 gm PO ONCE PRN; Protocol PRN Reason: Hypoglycemia Protocol Docusate Sodium (Colace) 100 mg PO BID [facility] Last Admin: 03/06/18 11:14 Dose: Not Given Furosemide (Lasix) 40 mg IVP BID [facility] Glucagon (Glucagen Diagnostic Kit) 0 mg IM STAT PRN; Protocol PRN Reason: Hypoglycemia Protocol Guaifenesin (Mucinex La) 600 mg PO BID [facility] Last Admin: 03/06/18 09:49 Dose: 600 mg Hydrochlorothiazide (Microzide) 12.5 mg PO DAILY [facility] Last Admin: 03/06/18 09:49 Dose: 12.5 mg Azithromycin 500 mg/ Sodium (Chloride) 250 mls @ 250 mls/hr IVPB DAILY [facility]; Protocol Last Admin: 03/06/18 09:47 Dose: 250 mls/hr Dextrose (Dextrose 5% In Water 1000 Ml) 1,000 mls @ 0 mls/hr IV .Q0M PRN; Protocol PRN Reason: Hypoglycemia Protocol Piperacillin Sod/Tazobactam (Sod 2.25 gm/ Sodium Chloride) 100 mls @ 200 mls/hr IVPB Q6H [facility]; Protocol Last Admin: 03/06/18 11:49 Dose: 200 mls/hr Insulin Aspart (Novolog) 0 unit SC ACHS [facility]; Protocol Last Admin: 03/06/18 13:16 Dose: 2 unit Levothyroxine Sodium (Synthroid) 100 mcg PO DAILY@0630 [facility] Last Admin: 03/06/18 05:30 Dose: 100 mcg Metoprolol Succinate (Toprol Xl) 25 mg PO DAILY [facility] Last Admin: 03/06/18 09:49 Dose: 25 mg Prasugrel (Effient) 10 mg PO DAILY [facility] Last Admin: 03/06/18 09:49 Dose: 10 mg Rosuvastatin Calcium (Crestor) 10 mg PO HS [facility] Last Admin: 03/05/18 21:47 Dose: 10 mg Saccharomyces Boulardii (Florastor) 250 mg PO BID [facility] Last Admin: 03/06/18 09:50 Dose: 250 mg Sitagliptin Phosphate (Januvia) 25 mg PO DAILY [facility] Last Admin: 03/06/18 09:49 Dose: 25 mg - Labs Labs: 03/06/18 07:17 03/06/18 07:17 PT 15.7 SECONDS (9.7-12.2) H 03/06/18 07:17 INR 1.4 03/06/18 07:17 Attending/Attestation - Attestation I have personally seen and examined this patient.: Yes I have fully participated in the care of the patient.: Yes I have reviewed all pertinent clinical information, including history, physical exam and plan: Yes Notes (Text): Seen and examined this morning during [employer] MACHINE MECHANIC this morning She was congested and sob, on examination she had bilateral rales chest x ray with congestion. increasing infiltrate,increasing wbc ,chest x ray showed congestion. Lasix 40mg IV given,On BIPAP fio2 increased to 50% She improved clinically after lasix,passing urine/no a lot. discussed with her daughter at bedside Pj was seen this afternoon . she was sleeping without sob,continue lasix 40mg BID continue zosyn and zithomax patient has high wbc,hs h/o leukemia,will be sen her oncologist follow echo,monitor creatinie d/w Dr Newton. we will monitor 1. Pneumonia and pleural effusion on zosyn,on zithromax d/w Dr Whitten. Vancomycin one dose ordered 2.History of CHF with preserved LV function 3.HTN 4.DM 5.COPD,uses CPAP at home 6.Hypothyroid 7.Leukemia
[2018-03-06] MEDS: Acetylcysteine 20% Inhal Soln (4ml) INH SCH ×5 (11:45→23:36)
--- NOTE | 2018-03-06 11:47 | RAD ---
Date of service: 03/06/2018 HISTORY: hypoxia COMPARISON: 03/04/2018 FINDINGS: LUNGS: Interval increased coalescent airspace opacities in both lungs suggested. The left mid to lower lung zone prior consolidation has increased PLEURA: Bilateral pleural effusions left larger than right. Slight increase left pleural effusion, no pneumothorax apparent. CARDIOVASCULAR: Cardiomegaly-similar. Concomitant pulmonary venous congestion suspect-increased since prior exam There is presence of aortic atherosclerotic calcification on x-ray. OSSEOUS STRUCTURES: No significant abnormalities. VISUALIZED UPPER ABDOMEN: Normal. OTHER FINDINGS: None. IMPRESSION: Interval worsening consolidations. Interval worsening bilateral coalescent airspace opacities consistent with coalescent areas of worsening pulmonary edema. Concomitant patchy infiltrates also a consideration. Correlate clinically Cardiomegaly interval increased pulmonary venous congestion. Bilateral pleural effusions left greater than right slight increase left pleural effusion. Congestive heart failure compatible with this.
[2018-03-06] MEDS ORDERED: Influenza Vaccine 60 MCG/0.5 ML SYR (3 yr & up) IM ONE (14:00)
--- NOTE | 2018-03-06 17:24 | CP.PCM.PN ---
Subjective - Date & Time of Evaluation Date of Evaluation: 03/06/18 Time of Evaluation: 17:19 - Subjective Subjective: Patient is seen and examined Off and on BiPAP No conversational Dyspnea Objective - Vital Signs/Intake and Output Vital Signs (last 24 hours): Temp Pulse Resp BP Pulse Ox 98.4 F 89 20 136/59 L 94 L 03/06/18 15:00 03/06/18 16:04 03/06/18 15:00 03/06/18 15:00 03/06/18 15:00 Intake and Output: 03/06/18 03/06/18 06:59 18:59 Intake Total 530 Balance 530 - Medications Medications: Current Medications Acetylcysteine (Acetylcysteine 20%) 4 ml INH Q4 [facility] Last Admin: 03/06/18 16:13 Dose: 4 ml Albuterol/Ipratropium (Duoneb 3 Mg/0.5 Mg (3 Ml) Ud) 3 ml INH Q4 [facility] Last Admin: 03/06/18 16:13 Dose: 3 ml Amlodipine Besylate (Norvasc) 10 mg PO DAILY [facility] Last Admin: 03/06/18 09:50 Dose: 10 mg Dextrose (Dextrose 50% Inj) 0 ml IV STAT PRN; Protocol PRN Reason: Hypoglycemia Protocol Dextrose (Glutose 15) 0 gm PO ONCE PRN; Protocol PRN Reason: Hypoglycemia Protocol Docusate Sodium (Colace) 100 mg PO BID [facility] Last Admin: 03/06/18 11:14 Dose: Not Given Furosemide (Lasix) 40 mg IVP BID [facility] Glucagon (Glucagen Diagnostic Kit) 0 mg IM STAT PRN; Protocol PRN Reason: Hypoglycemia Protocol Guaifenesin (Mucinex La) 600 mg PO BID [facility] Last Admin: 03/06/18 09:49 Dose: 600 mg Hydrochlorothiazide (Microzide) 12.5 mg PO DAILY [facility] Last Admin: 03/06/18 09:49 Dose: 12.5 mg Azithromycin 500 mg/ Sodium (Chloride) 250 mls @ 250 mls/hr IVPB DAILY [facility]; Protocol Last Admin: 03/06/18 09:47 Dose: 250 mls/hr Dextrose (Dextrose 5% In Water 1000 Ml) 1,000 mls @ 0 mls/hr IV .Q0M PRN; Protocol PRN Reason: Hypoglycemia Protocol Piperacillin Sod/Tazobactam (Sod 2.25 gm/ Sodium Chloride) 100 mls @ 200 mls/hr IVPB Q6H [facility]; Protocol Last Admin: 03/06/18 11:49 Dose: 200 mls/hr Insulin Aspart (Novolog) 0 unit SC ACHS [facility]; Protocol Last Admin: 03/06/18 13:16 Dose: 2 unit Levothyroxine Sodium (Synthroid) 100 mcg PO DAILY@0630 [facility] Last Admin: 03/06/18 05:30 Dose: 100 mcg Metoprolol Succinate (Toprol Xl) 25 mg PO DAILY [facility] Last Admin: 03/06/18 09:49 Dose: 25 mg Prasugrel (Effient) 10 mg PO DAILY [facility] Last Admin: 03/06/18 09:49 Dose: 10 mg Rosuvastatin Calcium (Crestor) 10 mg PO HS [facility] Last Admin: 03/05/18 21:47 Dose: 10 mg Saccharomyces Boulardii (Florastor) 250 mg PO BID [facility] Last Admin: 03/06/18 09:50 Dose: 250 mg Sitagliptin Phosphate (Januvia) 25 mg PO DAILY [facility] Last Admin: 03/06/18 09:49 Dose: 25 mg - Labs Labs: 03/06/18 07:17 03/06/18 07:17 PT 15.7 SECONDS (9.7-12.2) H 03/06/18 07:17 INR 1.4 03/06/18 07:17 - Head Exam Head Exam: NORMAL INSPECTION - Eye Exam Eye Exam: Normal appearance - ENT Exam ENT Exam: Mucous Membranes Moist - Respiratory Exam Respiratory Exam: Rhonchi - Cardiovascular Exam Cardiovascular Exam: REGULAR RHYTHM, +S1, +S2 - GI/Abdominal Exam GI & Abdominal Exam: Soft, Normal Bowel Sounds - Extremities Exam Extremities Exam: Normal Inspection Assessment and Plan (1) Obstructive sleep apnea Status: Acute (2) CKD (chronic kidney disease) stage 4, GFR 15-29 ml/min Status: Acute (3) Pleural effusion Status: Acute (4) Pneumonia Status: Acute (5) Type II diabetes mellitus Status: Acute (6) CHF (congestive heart failure) Status: Acute - Assessment and Plan (Free Text) Plan: CXR reviewed - shows worsening of pulmonary Edema and or infiltrates\ Continue Zosyn Vancomycin 1 gm IV x 1 dose Follow Cr IV Lasix Continue BiPAP DVT/GI Prophalxis
[2018-03-06] MEDS ORDERED: Vancomycin 1 gm/NS 200 ml 1 GM/200 ML BAG IVPB ONE (17:48)
--- NOTE | 2018-03-06 19:11 | CARD ---
APPROVED REPORT Date of service: 03/05/2018 EXAM: Two-dimensional and M-mode echocardiogram with Doppler and color Doppler. Other Information Quality : GoodRhythm : INDICATION Dyspnea Congestive Heart Failure RISK FACTORS Diabetes 2D DIMENSIONS IVSd0.9 (0.7-1.1cm)LVDd4.4 (3.9-5.9cm) LVOT Diameter1.9 (1.8-2.4cm)PWd1.0 (0.7-1.1cm) LA Ezylcx84 (18-58mL)LVDs3.0 (2.5-4.0cm) FS (%) 32.7 %LVEF (%)61.4 (>50%) LVEF (Shaw's)60.90 % M-Mode DIMENSIONS Left Atrium (MM)4.64 (2.5-4.0cm)IVSd0.83 (0.7-1.1cm) Aortic Root3.22 (2.2-3.7cm)LVDd5.08 (4.0-5.6cm) Aortic Cusp Exc.1.24 (1.5-2.0cm)PWd0.70 (0.7-1.1cm) FS (%) 42 %LVDs2.95 (2.0-3.8cm) LVEF (%)73 (>50%) Aortic Valve AoV Peak Agwpdnar316.4cm/sAoV VTI52.3cmAO Peak GR.23mmHg LVOT Peak Zujuykvq476.6cm/sLVOT VTI27.90cmAO Mean GR.14mmHg CLINT (VMAX)1.88tz2LIN (VTI)1.43cm2 Mitral Valve MV E Yrnzqouu436.6cm/sMV A Aousfgae949.5cm/sE/A ratio1.0 TDI Lateral E' Peak V6.80cm/sMedial E' Peak V6.09cm/sE/Lateral E'19.4 E/Medial E'21.6 Tricuspid Valve TR Peak Ljksundc791lk/sTR Peak Gr.42odCvCOWP14qwPs LEFT VENTRICLE The left ventricle is normal size. There is normal left ventricular wall thickness. The Ejection Fraction is 60-65%. There is normal LV segmental wall motion. Transmitral Doppler flow pattern is Grade II-pseudonormal filling dynamics. The left atrial pressure is mildly elevated. mildly elevated la volume index. RIGHT VENTRICLE The right ventricle is normal size. The right ventricular systolic function is normal. ATRIA The left atrium is moderately dilated. The right atrium size is normal. The interatrial septum is intact with no evidence for an atrial septal defect. AORTIC VALVE The aortic valve is probably trileaflet. The aortic valve is moderately calcified. No aortic regurgitation is present. There is mild valvular aortic stenosis. Calculated aortic valve area is 1.4 cm2 with maximum pressure gradient of 23 mmHg and mean pressure gradient of 14 mmHg. MITRAL VALVE The mitral valve is thickened but opens well. Mitral regurgitation is mild. TRICUSPID VALVE The tricuspid valve is normal in structure. There is mild to moderate tricuspid regurgitation. Right ventricular systolic pressure is estimated at 45 mmHg. There is mild pulmonary hypertension. PULMONIC VALVE The pulmonary valve is normal in structure. GREAT VESSELS The aortic root is normal size. The aortic root displays mild sclerocalcific changes of the aortic root. ivc is mildly dilated with normal inspiratory collapse. PERICARDIAL EFFUSION There is no pericardial effusion. <Conclusion> The left ventricle is normal size. There is normal left ventricular wall thickness. The Ejection Fraction is 60-65%. Transmitral Doppler flow pattern is Grade II-pseudonormal filling dynamics. The left atrial pressure is mildly elevated. mildly elevated la volume index. The left atrium is moderately dilated. The aortic valve is probably trileaflet. The aortic valve is moderately calcified. There is mild valvular aortic stenosis. Calculated aortic valve area is 1.4 cm2 with maximum pressure gradient of 23 mmHg and mean pressure gradient of 14 mmHg. Mitral regurgitation is mild. There is mild to moderate tricuspid regurgitation. Right ventricular systolic pressure is estimated at 45 mmHg. There is mild pulmonary hypertension. The aortic root is normal size. The aortic root displays mild sclerocalcific changes of the aortic root. ivc is mildly dilated with normal inspiratory collapse. There is no pericardial effusion.
[2018-03-06 19:22] LABS: URINE 24 HOUR TOTAL PROTEIN 274.5 mg/24hr (42-225)
--- NOTE | 2018-03-06 19:25 | CARD ---
APPROVED REPORT Date of service: 03/04/2018 EKG Measurement Heart [id number] <Conclusion> Normal sinus rhythm Minimal voltage criteria for LVH, may be normal variant Borderline ECG
--- NOTE | 2018-03-06 19:25 | CARD ---
APPROVED REPORT Date of service: 03/04/2018 EKG Measurement Heart [id number] <Conclusion> Normal sinus rhythm Nonspecific ST abnormality Abnormal ECG
--- NOTE | 2018-03-06 21:25 | CP.PCM.PCO ---
Addendum entered and electronically signed by Tommy Aguilera 03/07/18 00:24: House doctor note: Paged for order confirmation regarding IV vancomycin order. Per nurse, patient's family believed there would be no vancomycin given to patient. Reviewed day time teams plan along with consults. Informed nurse to give one time dose of vancomyocin. Original Note:
[2018-03-06 21:52] LABS: SQUAMOUS EPITHIAL 2 /hpf (0-5); URINE BILIRUBIN NEGATIVE (NEGATIVE); URINE BLOOD 2+ (NEGATIVE); URINE CLARITY Hazy (Clear); URINE COLOR Yellow (YELLOW); URINE GLUCOSE (UA) NORMAL (Normal); URINE LEUKOCYTE ESTERASE NEG Leu/uL (Negative); URINE PROTEIN NEGATIVE (NEGATIVE); URINE UROBILINOGEN NORMAL mg/dL (0.2-1.0)
[2018-03-07] MEDS: Piperacillin/Tazobact 2.25 GM in Sodium Chloride 100 ML IVPB SCH ×4 (00:02→19:56)
[2018-03-07] MEDS: Acetylcysteine 20% Inhal Soln (4ml) INH SCH ×5 (03:27→20:12)
[2018-03-07] MEDS: Albuterol-Ipratrop 3 mg / 0.5 (3 ml) UD INH SCH ×6 (03:28→23:30)
[2018-03-07] MEDS: Levothyroxine 100 MCG TAB PO SCH (05:53)
[2018-03-07 07:37] LABS: BASO # 0.1 K/uL (0.0-0.2); BASO % 0.5 % (0.0-2.0); EOS # 0.1 K/uL (0.0-0.7); EOS % 0.5 % (0.0-4.0); HEMOGLOBIN 7.3 g/dL (11.0-16.0); LYMPH # 1.8 K/uL (1.0-4.3); LYMPH % 7.4 % (20.0-40.0); MEAN CELL VOLUME 90.9 fL (81.0-99.0); MEAN CORPUSCULAR HEMOGLOBIN 29.1 pg (27.0-31.0); MEAN PLATELET VOLUME 10.2 fL (7.2-11.7); MONO % 20.8 % (0.0-10.0); NEUT % 70.8 % (50.0-75.0); PLATELET COUNT 116 K/uL (130-400); RBC 2.49 Mil/uL (3.80-5.20); RED CELL DISTRIBUTION WIDTH 17.3 % (11.5-14.5); WHITE BLOOD COUNT 23.9 K/uL (4.8-10.8)
--- NOTE | 2018-03-07 07:47 | CP.PCM.PN ---
<Cherrie Carrasco - Last Filed: 03/07/18 13:33> Subjective - Date & Time of Evaluation Date of Evaluation: 03/07/18 Time of Evaluation: 07:44 - Subjective Subjective: Cherrie Carrasco PGY1 Progress Note for Dr. Hammer: Patient was examined at bedside this morning. She reported improvement in her shortness of breath and denied any further chest tightness. She reported white sputum after her breathing treatment last night, but denied any blood in the sputum. Pt denied headache, chest pain, nausea, vomiting, abdominal pain, diarrhea, dysuria. Objective - Vital Signs/Intake and Output Vital Signs (last 24 hours): Temp Pulse Resp BP Pulse Ox 98.1 F 90 20 130/57 L 98 03/07/18 00:00 03/07/18 05:06 03/07/18 00:00 03/07/18 00:00 03/07/18 00:00 - Medications Medications: Current Medications Acetylcysteine (Acetylcysteine 20%) 4 ml INH Q4 [facility] Last Admin: 03/07/18 07:30 Dose: 4 ml Albuterol/Ipratropium (Duoneb 3 Mg/0.5 Mg (3 Ml) Ud) 3 ml INH Q4 [facility] Last Admin: 03/07/18 07:30 Dose: 3 ml Amlodipine Besylate (Norvasc) 10 mg PO DAILY [facility] Last Admin: 03/06/18 09:50 Dose: 10 mg Dextrose (Dextrose 50% Inj) 0 ml IV STAT PRN; Protocol PRN Reason: Hypoglycemia Protocol Dextrose (Glutose 15) 0 gm PO ONCE PRN; Protocol PRN Reason: Hypoglycemia Protocol Docusate Sodium (Colace) 100 mg PO BID [facility] Last Admin: 03/06/18 18:35 Dose: 100 mg Furosemide (Lasix) 40 mg IVP BID [facility] Last Admin: 03/06/18 18:36 Dose: 40 mg Glucagon (Glucagen Diagnostic Kit) 0 mg IM STAT PRN; Protocol PRN Reason: Hypoglycemia Protocol Guaifenesin (Mucinex La) 600 mg PO BID [facility] Last Admin: 03/06/18 18:35 Dose: 600 mg Hydrochlorothiazide (Microzide) 12.5 mg PO DAILY [facility] Last Admin: 03/06/18 09:49 Dose: 12.5 mg Azithromycin 500 mg/ Sodium (Chloride) 250 mls @ 250 mls/hr IVPB DAILY [facility]; Protocol Last Admin: 03/06/18 09:47 Dose: 250 mls/hr Dextrose (Dextrose 5% In Water 1000 Ml) 1,000 mls @ 0 mls/hr IV .Q0M PRN; Protocol PRN Reason: Hypoglycemia Protocol Piperacillin Sod/Tazobactam (Sod 2.25 gm/ Sodium Chloride) 100 mls @ 200 mls/hr IVPB Q6H [facility]; Protocol Last Admin: 03/07/18 05:54 Dose: 200 mls/hr Insulin Aspart (Novolog) 0 unit SC ACHS [facility]; Protocol Last Admin: 03/06/18 21:40 Dose: Not Given Levothyroxine Sodium (Synthroid) 100 mcg PO DAILY@0630 [facility] Last Admin: 03/07/18 05:53 Dose: 100 mcg Metoprolol Succinate (Toprol Xl) 25 mg PO DAILY [facility] Last Admin: 03/06/18 09:49 Dose: 25 mg Prasugrel (Effient) 10 mg PO DAILY [facility] Last Admin: 03/06/18 09:49 Dose: 10 mg Rosuvastatin Calcium (Crestor) 10 mg PO HS [facility] Last Admin: 03/06/18 21:38 Dose: 10 mg Saccharomyces Boulardii (Florastor) 250 mg PO BID [facility] Last Admin: 03/06/18 18:35 Dose: 250 mg Sitagliptin Phosphate (Januvia) 25 mg PO DAILY [facility] Last Admin: 03/06/18 09:49 Dose: 25 mg - Labs Labs: 03/06/18 07:17 03/06/18 07:17 PT 15.7 SECONDS (9.7-12.2) H 03/06/18 07:17 INR 1.4 03/06/18 07:17 - Constitutional Appears: Well, No Acute Distress - Head Exam Head Exam: ATRAUMATIC, NORMOCEPHALIC - Eye Exam Eye Exam: EOMI, Normal appearance, PERRL Pupil Exam: NORMAL ACCOMODATION - ENT Exam ENT Exam: Mucous Membranes Moist - Neck Exam Neck Exam: Full ROM, Normal Inspection - Respiratory Exam Respiratory Exam: Wheezes, NORMAL BREATHING PATTERN. absent: Rales, Rhonchi, Respiratory Distress Additional comments: mild b/l expiratory wheezes in upper lung singh, improved from yesterday - Cardiovascular Exam Cardiovascular Exam: REGULAR RHYTHM, +S1, +S2. absent: Gallop, Rubs, Murmur - GI/Abdominal Exam GI & Abdominal Exam: Distended, Soft, Normal Bowel Sounds. absent: Firm, Tenderness - Extremities Exam Extremities Exam: Pedal Edema. absent: Calf Tenderness - Neurological Exam Neurological Exam: Alert, Awake, Oriented x3 - Psychiatric Exam Psychiatric exam: Normal Affect, Normal Mood - Skin Skin Exam: Normal Color Assessment and Plan - Assessment and Plan (Free Text) Assessment: 82yo F with PMH HTN, DM, HLD, PVD, CKD, COPD, hypothyroid, anemia, nephrolithiasis, leukemia admitted for further evaluation and treatment of pneumonia and pleural effusion. Plan: Pneumonia: - pt afebrile - WBC 23.9, downtrending - CXR 03/06 PM: interval worsening R lung, density in L lower lung - CXR 03/06 AM: interval worsening consolidations. interval worsening b/l coaslescent airspace opacities consistent with worsening pulmonary edema. concomitant patchy infiltrates. b/l pleural effusions L>R. slight increase in left pleural effusion. compatible with CHF - CT Chest 03/05: CHF vascular pattern, dilated pulmonary artery 3.6cm, consider pulmonary arterial hypertension. mild b/l pleural effusions with atelectasis at b/l lower lobes. underlying pneumonia not excluded. 3mm right apical nonclacified nodule f/u 12 months - Strept pneumo, influenza, urine legionella, m.pneumonia negative - BCx negative x2 - continue azithromycin 1gm IV daily (day 4) - continue zosyn 2.25 IV q8h (day 3) - continue Florastor 250mg PO BID - duonebs 3ML INH Q4H [facility] - acetylcysteine 20% 4ml INH q4h [facility] - mucinex 600 mg BID - bipap FiO2 40% - CPT - f/u sputum Cx, collected - Pulm consulted, Dr. Uriel Moya Effusion: - CXR 03/06 PM: interval worsening R lung, density in L lower lung - CXR 03/06 AM: interval worsening consolidations. interval worsening b/l coaslescent airspace opacities consistent with worsening pulmonary edema. concomitant patchy infiltrates. b/l pleural effusions L>R. slight increase in left pleural effusion. compatible with CHF - CT Chest 03/05: CHF vascular pattern, dilated pulmonary artery 3.6cm, consider pulmonary arterial hypertension. mild b/l pleural effusions with atelectasis at b/l lower lobes. underlying pneumonia not excluded. 3mm right apical n onclacified nodule f/u 12 months - BNP 03/05: 4110 - lasix 40mg IV BID - no plan for thoracentesis at this time due to small size of effusions, as per pulm - bipap FiO2 40 - CPT Heart failure with normal ejection fraction - BNP 03/06: 4110 - ECHO: EF 60-65%, mild , mild TR, mild pulm HTN - CXR 03/06 AM: interval worsening consolidations. interval worsening b/l coaslescent airspace opacities consistent with worsening pulmonary edema. concomitant patchy infiltrates. b/l pleural effusions L>R. slight increase in left pleural effusion. compatible with CHF - CT Chest 03/05: CHF vascular pattern, dilated pulmonary artery 3.6cm, consider pulmonary arterial hypertension. mild b/l pleural effusions with atelectasis at b/l lower lobes. underlying pneumonia not excluded. 3mm right apical nonclacified nodule f/u 12 months - pt scheduled to have stress test 03/[address] 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 Glaser's group: due to NSAID use - renal US: chronic parenchymal disease, no acute findings - protein excretion rate elevated at 274.5 - Nephro consulted, Dr. Glaser- recs appreciated Anemia - H/H: 7.3/22.7, worsening - pt to receive 2u irradiated leukodepleted PRBC - lasix 20 IV to be given in between units - f/u CBC post transfusion - start procrit 20,000u q2wk, as per heme - Heme/onc consulted, Dr. Avel Enrique - f/u recs Hypothyroidism - TSH 4.99 - continue synthroid 100mcg PO QD Dyslipidemia - T, Chol:124, LDL: 49 and HDL: 38 - continue Crestor 10mg PO HS HTN - Continue home medications: HCTZ 12.5MG PO daily Norvasc 10mg PO daily Toprol XL 25mg PO daily COPD - pt reports improvement in shortness of breath - duonebs 3ML INH Q4H [facility] - acetylcysteine 20% 4ml INH q4h [facility] - mucinex 600 mg BID - bipap FiO2 40% - CPT Thrombocytopenia - Platelet 116, improving - hold effient is platelet continues to deplete - Heme/onc consulted, Dr. Avel Enrique Peripheral vascular disease - History of stent placement - continue Effient 10mg PO daily, hold if worsening thrombocytopenia Type II DM - HbA1C (09/30/17): 8.3 - Heart healthy diet with low carbohydrate consistency - Accuchecks - Januvia 25mg daily - ISS low dose - Hypoglycemia protocol PPX: DVT: SCDs, effient 10mg PO daily GI: Not indicated PT/OT Patient seen and plan discussed with Dr. Hammer <Liz Hammer - Last Filed: 03/10/18 16:53> Objective - Vital Signs/Intake and Output Vital Signs (last 24 hours): Temp Pulse Resp BP Pulse Ox 98.1 F 87 20 153/51 H 96 03/10/18 15:00 03/10/18 16:08 03/10/18 15:00 03/10/18 15:00 03/10/18 15:00 Intake and Output: 03/10/18 03/10/18 06:59 18:59 Intake Total 820 350 Output Total 1550 785 Balance -730 -435 - Medications Medications: Current Medications Acetylcysteine (Acetylcysteine 20%) 4 ml INH Q4 [facility] Last Admin: 03/10/18 16:02 Dose: 4 ml Albuterol/Ipratropium (Duoneb 3 Mg/0.5 Mg (3 Ml) Ud) 3 ml INH Q4 [facility] Last Admin: 03/10/18 16:02 Dose: 3 ml Amlodipine Besylate (Norvasc) 10 mg PO DAILY [facility] Last Admin: 03/10/18 10:45 Dose: 10 mg Calcium Acetate (Phoslo) 667 mg PO TID [facility] Last Admin: 03/10/18 14:17 Dose: 667 mg Dextrose (Dextrose 50% Inj) 0 ml IV STAT PRN; Protocol PRN Reason: Hypoglycemia Protocol Dextrose (Glutose 15) 0 gm PO ONCE PRN; Protocol PRN Reason: Hypoglycemia Protocol Furosemide (Lasix) 80 mg IVP Q12 [facility] Last Admin: 03/10/18 10:47 Dose: 80 mg Glucagon (Glucagen Diagnostic Kit) 0 mg IM STAT PRN; Protocol PRN Reason: Hypoglycemia Protocol Guaifenesin (Mucinex La) 600 mg PO BID [facility] Last Admin: 03/10/18 10:44 Dose: 600 mg Piperacillin Sod/Tazobactam (Sod 2.25 gm/ Sodium Chloride) 100 mls @ 200 mls/hr IVPB Q6H [facility]; Protocol Last Admin: 03/10/18 12:46 Dose: 200 mls/hr Azithromycin (Zithromax 500mg In Ns Addvantage) 500 mg in 250 mls @ 167 mls/hr IVPB Q24H [facility]; Protocol Insulin Aspart (Novolog) 0 unit SC ACHS [facility]; Protocol Last Admin: 03/10/18 12:46 Dose: Not Given Levothyroxine Sodium (Synthroid) 100 mcg PO DAILY@0630 [facility] Last Admin: 03/10/18 05:42 Dose: 100 mcg Metolazone (Zaroxolyn) 5 mg PO DAILY [facility] Last Admin: 03/10/18 10:46 Dose: 5 mg Metoprolol Succinate (Toprol Xl) 25 mg PO DAILY [facility] Last Admin: 03/10/18 10:44 Dose: 25 mg Potassium Chloride (Potassium Chloride Oral Soln) 40 meq PO DAILY [facility] Last Admin: 03/10/18 10:43 Dose: 40 meq Prasugrel (Effient) 10 mg PO DAILY [facility] Last Admin: 03/10/18 10:46 Dose: 10 mg Rosuvastatin Calcium (Crestor) 10 mg PO HS [facility] Last Admin: 03/09/18 21:33 Dose: 10 mg Saccharomyces Boulardii (Florastor) 250 mg PO BID [facility] Last Admin: 03/10/18 10:43 Dose: 250 mg Sitagliptin Phosphate (Januvia) 25 mg PO DAILY [facility] Last Admin: 03/10/18 10:45 Dose: 25 mg - Labs Labs: 03/10/18 06:29 03/10/18 06:29 PT 15.7 SECONDS (9.7-12.2) H 03/06/18 07:17 INR 1.4 03/06/18 07:17 Attending/Attestation - Attestation I have personally seen and examined this patient.: Yes I have fully participated in the care of the patient.: Yes I have reviewed all pertinent clinical information, including history, physical exam and plan: Yes Notes (Text): Patient was seen and examined by me with the resident 1.Pneumonia 2.Pleural effusion 3.COPD 4.Renal failure 5.CHF with preserved EF 6.Leukemia Assessment and the plan discussed with the resident spoke to her daughter's at bed side 1
[2018-03-07 07:56] LABS: ALB/GLOB RATIO 0.9 (1.0-2.1); ALBUMIN 3.4 g/dL (3.5-5.0); CALCIUM 8.5 mg/dl (8.6-10.4)
--- NOTE | 2018-03-07 08:24 | RAD ---
Date of service: 03/06/2018 HISTORY: congestion,s/p treatment COMPARISON: 03/06/2018 at 9:24 a.m. FINDINGS: LUNGS: There is redemonstration of confluent airspace disease in the right lung lobe there is dense opacity in the left lower lobe PLEURA: No pleural effusions or pneumothorax. CARDIOVASCULAR: Stable. Atherosclerotic aortic arch calcifications are present. OSSEOUS STRUCTURES: Within normal limits for the patient's age. VISUALIZED UPPER ABDOMEN: Normal. OTHER FINDINGS: None. IMPRESSION: Little interval change in multifocal pneumonia versus pulmonary edema, worse in the right lung. Dense opacity in the left lower lobe may represent pneumonia or effusion. Follow-up is advised. No significant interval change.
[2018-03-07 08:33] LABS: EOSINOPHIL 1 % (0-4); LYMPHOCYTE 7 % (20-40); MONOCYTE 17 % (0-10); MYELOCYTE 3 % (0-0); NEUTROPHIL 72 % (50-75); PLATELET ESTIMATE SLIGHTLY DECREASED (NORMAL); TOTAL CELLS COUNTED 100
[2018-03-07 08:34] LABS: ANISOCYTOSIS SLIGHT; HYPOCHROMIC SLIGHT; LARGE PLATELETS PRESENT; POIKILOCYTOSIS SLIGHT
[2018-03-07] MEDS: Saccharomyces Boulardi 250 mg Cap PO SCH ×2 (09:57→19:47)
[2018-03-07] MEDS: Metoprolol Succinate 25 mg XL Tab PO SCH (09:57)
[2018-03-07] MEDS: guaiFENesin 600 mg ER Tab PO SCH ×2 (09:58→19:46)
[2018-03-07] MEDS: (Novolog) Insulin Aspart, Recombinant 100 u/ml 10 ml vial SC SCH ×4 (11:49→21:49)
[2018-03-07] MEDS ORDERED: Epoetin Alfa Dialysis 20000 UNIT/ML Inj SC ONE (12:15)
[2018-03-07] MEDS: Azithromycin 500 MG in Sodium Chloride 0.9% 250 ML IVPB SCH (12:39)
--- NOTE | 2018-03-07 13:46 | CP.PCM.PN ---
Subjective - Date & Time of Evaluation Date of Evaluation: 03/07/18 Time of Evaluation: 13:43 - Subjective Subjective: frail on bipap needing increased lasix for difficulty breathing for transfusion today no f/c no abdominal pain no rash ?decreased u/o no headache appetite fair Objective - Vital Signs/Intake and Output Vital Signs (last 24 hours): Temp Pulse Resp BP Pulse Ox 98.2 F 88 30 H 136/74 95 03/07/18 07:00 03/07/18 13:34 03/07/18 07:00 03/07/18 09:58 03/07/18 07:00 - Medications Medications: Current Medications Acetylcysteine (Acetylcysteine 20%) 4 ml INH Q4 [facility] Last Admin: 03/07/18 13:32 Dose: 4 ml Albuterol/Ipratropium (Duoneb 3 Mg/0.5 Mg (3 Ml) Ud) 3 ml INH Q4 [facility] Last Admin: 03/07/18 13:32 Dose: 3 ml Amlodipine Besylate (Norvasc) 10 mg PO DAILY [facility] Last Admin: 03/07/18 09:57 Dose: 10 mg Dextrose (Dextrose 50% Inj) 0 ml IV STAT PRN; Protocol PRN Reason: Hypoglycemia Protocol Dextrose (Glutose 15) 0 gm PO ONCE PRN; Protocol PRN Reason: Hypoglycemia Protocol Docusate Sodium (Colace) 100 mg PO BID [facility] Last Admin: 03/07/18 09:57 Dose: 100 mg Furosemide (Lasix) 40 mg IVP BID [facility] Last Admin: 03/07/18 09:58 Dose: 40 mg Glucagon (Glucagen Diagnostic Kit) 0 mg IM STAT PRN; Protocol PRN Reason: Hypoglycemia Protocol Guaifenesin (Mucinex La) 600 mg PO BID [facility] Last Admin: 03/07/18 09:58 Dose: 600 mg Hydrochlorothiazide (Microzide) 12.5 mg PO DAILY [facility] Last Admin: 03/07/18 09:57 Dose: 12.5 mg Azithromycin 500 mg/ Sodium (Chloride) 250 mls @ 250 mls/hr IVPB DAILY [facility]; Pr otocol Last Admin: 03/07/18 12:39 Dose: 250 mls/hr Dextrose (Dextrose 5% In Water 1000 Ml) 1,000 mls @ 0 mls/hr IV .Q0M PRN; Protocol PRN Reason: Hypoglycemia Protocol Piperacillin Sod/Tazobactam (Sod 2.25 gm/ Sodium Chloride) 100 mls @ 200 mls/hr IVPB Q6H [facility]; Protocol Last Admin: 03/07/18 05:54 Dose: 200 mls/hr Insulin Aspart (Novolog) 0 unit SC ACHS [facility]; Protocol Last Admin: 03/07/18 12:38 Dose: Not Given Levothyroxine Sodium (Synthroid) 100 mcg PO DAILY@0630 [facility] Last Admin: 03/07/18 05:53 Dose: 100 mcg Metoprolol Succinate (Toprol Xl) 25 mg PO DAILY [facility] Last Admin: 03/07/18 09:57 Dose: 25 mg Prasugrel (Effient) 10 mg PO DAILY [facility] Last Admin: 03/07/18 09:57 Dose: 10 mg Rosuvastatin Calcium (Crestor) 10 mg PO HS [facility] Last Admin: 03/06/18 21:38 Dose: 10 mg Saccharomyces Boulardii (Florastor) 250 mg PO BID [facility] Last Admin: 03/07/18 09:57 Dose: 250 mg Sitagliptin Phosphate (Januvia) 25 mg PO DAILY [facility] Last Admin: 03/07/18 09:57 Dose: 25 mg - Labs Labs: 03/07/18 07:31 03/07/18 07:31 PT 15.7 SECONDS (9.7-12.2) H 03/06/18 07:17 INR 1.4 03/06/18 07:17 - Constitutional Appears: Chronically Ill - Head Exam Head Exam: ATRAUMATIC, NORMAL INSPECTION - Eye Exam Eye Exam: EOMI, Normal appearance - Neck Exam Neck Exam: Full ROM. absent: Lymphadenopathy - Respiratory Exam Respiratory Exam: Decreased Breath Sounds Additional comments: crackles 1/2 way up - Cardiovascular Exam Cardiovascular Exam: REGULAR RHYTHM. absent: Rubs - GI/Abdominal Exam GI & Abdominal Exam: Distended. absent: Tenderness - Extremities Exam Extremities Exam: Pedal Edema - Neurological Exam Neurological Exam: Alert Assessment and Plan - Assessment and Plan (Free Text) Assessment: ckd with zohra due to cardiorenal etiology pneumonia/chf, on AB, bipap continue to diurese as needed monitor u/o blood transfusion today
--- NOTE | 2018-03-07 16:33 | CP.PCM.PN ---
Subjective - Date & Time of Evaluation Date of Evaluation: 03/07/18 Time of Evaluation: 16:33 - Subjective Subjective: On BiPAP Improved WBC count patient reports improved dyspnea Afebrile Hgb 7.3 Cr 3.3 Objective - Vital Signs/Intake and Output Vital Signs (last 24 hours): Temp Pulse Resp BP Pulse Ox 99.1 F 87 20 119/50 L 94 L 03/07/18 16:00 03/07/18 16:00 03/07/18 16:00 03/07/18 16:00 03/07/18 16:00 Intake and Output: 03/07/18 03/07/18 06:59 18:59 Intake Total 240 Balance 240 - Medications Medications: Current Medications Acetylcysteine (Acetylcysteine 20%) 4 ml INH Q4 [facility] Last Admin: 03/07/18 15:43 Dose: 4 ml Albuterol/Ipratropium (Duoneb 3 Mg/0.5 Mg (3 Ml) Ud) 3 ml INH Q4 [facility] Last Admin: 03/07/18 15:43 Dose: 3 ml Amlodipine Besylate (Norvasc) 10 mg PO DAILY [facility] Last Admin: 03/07/18 09:57 Dose: 10 mg Dextrose (Dextrose 50% Inj) 0 ml IV STAT PRN; Protocol PRN Reason: Hypoglycemia Protocol Dextrose (Glutose 15) 0 gm PO ONCE PRN; Protocol PRN Reason: Hypoglycemia Protocol Docusate Sodium (Colace) 100 mg PO BID [facility] Last Admin: 03/07/18 09:57 Dose: 100 mg Furosemide (Lasix) 40 mg IVP BID [facility] Last Admin: 03/07/18 09:58 Dose: 40 mg Glucagon (Glucagen Diagnostic Kit) 0 mg IM STAT PRN; Protocol PRN Reason: Hypoglycemia Protocol Guaifenesin (Mucinex La) 600 mg PO BID [facility] Last Admin: 03/07/18 09:58 Dose: 600 mg Hydrochlorothiazide (Microzide) 12.5 mg PO DAILY [facility] Last Admin: 03/07/18 09:57 Dose: 12.5 mg Azithromycin 500 mg/ Sodium (Chloride) 250 mls @ 250 mls/hr IVPB DAILY [facility]; Protocol Last Admin: 03/07/18 12:39 Dose: 250 mls/hr Dextrose (Dextrose 5% In Water 1000 Ml) 1,000 mls @ 0 mls/hr IV .Q0M [facility]N; Protocol PRN Reason: Hypoglycemia Protocol Piperacillin Sod/Tazobactam (Sod 2.25 gm/ Sodium Chloride) 100 mls @ 200 mls/hr IVPB Q6H [facility]; Protocol Last Admin: 03/07/18 13:48 Dose: 200 mls/hr Insulin Aspart (Novolog) 0 unit SC ACHS [facility]; Protocol Last Admin: 03/07/18 12:38 Dose: Not Given Levothyroxine Sodium (Synthroid) 100 mcg PO DAILY@0630 [facility] Last Admin: 03/07/18 05:53 Dose: 100 mcg Metoprolol Succinate (Toprol Xl) 25 mg PO DAILY [facility] Last Admin: 03/07/18 09:57 Dose: 25 mg Prasugrel (Effient) 10 mg PO DAILY [facility] Last Admin: 03/07/18 09:57 Dose: 10 mg Rosuvastatin Calcium (Crestor) 10 mg PO HS [facility] Last Admin: 03/06/18 21:38 Dose: 10 mg Saccharomyces Boulardii (Florastor) 250 mg PO BID [facility] Last Admin: 03/07/18 09:57 Dose: 250 mg Sitagliptin Phosphate (Januvia) 25 mg PO DAILY [facility] Last Admin: 03/07/18 09:57 Dose: 25 mg - Labs Labs: 03/07/18 07:31 03/07/18 07:31 PT 15.7 SECONDS (9.7-12.2) H 03/06/18 07:17 INR 1.4 03/06/18 07:17 - Head Exam Head Exam: NORMAL INSPECTION - Eye Exam Eye Exam: Normal appearance - ENT Exam ENT Exam: Mucous Membranes Moist - Respiratory Exam Respiratory Exam: Clear to Ausculation Bilateral - Cardiovascular Exam Cardiovascular Exam: REGULAR RHYTHM, +S1, +S2 - GI/Abdominal Exam GI & Abdominal Exam: Soft, Normal Bowel Sounds - Extremities Exam Extremities Exam: Normal Inspection - Neurological Exam Neurological Exam: Alert, Oriented x3 Assessment and Plan (1) Obstructive sleep apnea Status: Acute (2) CKD (chronic kidney disease) stage 4, GFR 15-29 ml/min Status: Acute (3) Pleural effusion Status: Acute (4) Pneumonia Status: Acute (5) Type II diabetes mellitus Status: Acute (6) CHF (congestive heart failure) Status: Acute - Assessment and Plan (Free Text) Plan: Continue Abx Lasix Pt to receive 1 unit PRBC Follow Cr Repeat CXR in AM Continue BiPAP Vanco levels in AM DVT/GI prophalaxis
--- NOTE | 2018-03-08 00:05 | CARD ---
APPROVED REPORT Date of service: 03/05/2018 EKG Measurement Heart [id number] <Conclusion> Sinus tachycardia Left ventricular hypertrophy with repolarization abnormality Possible Inferior infarct, age undetermined Abnormal ECG
[2018-03-08] MEDS: Piperacillin/Tazobact 2.25 GM in Sodium Chloride 100 ML IVPB SCH ×4 (01:35→17:29)
[2018-03-08] MEDS: Acetylcysteine 20% Inhal Soln (4ml) INH SCH ×6 (04:28→23:55)
[2018-03-08] MEDS: Albuterol-Ipratrop 3 mg / 0.5 (3 ml) UD INH SCH ×6 (04:28→23:55)
[2018-03-08] MEDS: Levothyroxine 100 MCG TAB PO SCH (05:49)
--- NOTE | 2018-03-08 07:26 | CP.PCM.PN ---
<Cherrie Carrasco - Last Filed: 03/08/18 13:27> Subjective - Date & Time of Evaluation Date of Evaluation: 03/08/18 Time of Evaluation: 07:23 - Subjective Subjective: Cherrie Carrasco PGY1 Progress Note for Dr. Hammer Pt was examined at bedside this morning. She reported improvement of her shortness of breath and chest tightness, and denied chest pain. She reported a few episodes of coughing up clear phlegm. She denied any headache, dizziness, nausea, vomiting, abdominal pain, diarrhea, dysuria. Objective - Vital Signs/Intake and Output Vital Signs (last 24 hours): Temp Pulse Resp BP Pulse Ox 98.1 F 88 20 140/60 95 03/08/18 01:33 03/08/18 01:50 03/08/18 01:33 03/08/18 01:33 03/07/18 23:00 Intake and Output: 03/08/18 03/08/18 06:59 18:59 Intake Total 1230 Balance 1230 - Medications Medications: Current Medications Acetylcysteine (Acetylcysteine 20%) 4 ml INH Q4 [facility] Last Admin: 03/08/18 04:28 Dose: 4 ml Albuterol/Ipratropium (Duoneb 3 Mg/0.5 Mg (3 Ml) Ud) 3 ml INH Q4 [facility] Last Admin: 03/08/18 04:28 Dose: 3 ml Amlodipine Besylate (Norvasc) 10 mg PO DAILY [facility] Last Admin: 03/07/18 09:57 Dose: 10 mg Dextrose (Dextrose 50% Inj) 0 ml IV STAT PRN; Protocol PRN Reason: Hypoglycemia Protocol Dextrose (Glutose 15) 0 gm PO ONCE PRN; Protocol PRN Reason: Hypoglycemia Protocol Docusate Sodium (Colace) 100 mg PO BID [facility] Last Admin: 03/07/18 19:47 Dose: 100 mg Furosemide (Lasix) 40 mg IVP BID [facility] Last Admin: 03/07/18 21:01 Dose: 40 mg Glucagon (Glucagen Diagnostic Kit) 0 mg IM STAT PRN; Protocol PRN Reason: Hypoglycemia Protocol Guaifenesin (Mucinex La) 600 mg PO BID [facility] Last Admin: 03/07/18 19:46 Dose: 600 mg Hydrochlorothiazide (Microzide) 12.5 mg PO DAILY [facility] Last Admin: 03/07/18 09:57 Dose: 12.5 mg Azithromycin 500 mg/ Sodium (Chloride) 250 mls @ 250 mls/hr IVPB DAILY [facility]; Protocol Last Admin: 03/07/18 12:39 Dose: 250 mls/hr Dextrose (Dextrose 5% In Water 1000 Ml) 1,000 mls @ 0 mls/hr IV .Q0M PRN; Protocol PRN Reason: Hypoglycemia Protocol Piperacillin Sod/Tazobactam (Sod 2.25 gm/ Sodium Chloride) 100 mls @ 200 mls/hr IVPB Q6H [facility]; Protocol Last Admin: 03/08/18 05:03 Dose: 200 mls/hr Insulin Aspart (Novolog) 0 unit SC ACHS [facility]; Protocol Last Admin: 03/07/18 21:49 Dose: Not Given Levothyroxine Sodium (Synthroid) 100 mcg PO DAILY@0630 [facility] Last Admin: 03/08/18 05:49 Dose: 100 mcg Metoprolol Succinate (Toprol Xl) 25 mg PO DAILY [facility] Last Admin: 03/07/18 09:57 Dose: 25 mg Prasugrel (Effient) 10 mg PO DAILY [facility] Last Admin: 03/07/18 09:57 Dose: 10 mg Rosuvastatin Calcium (Crestor) 10 mg PO HS [facility] Last Admin: 03/07/18 22:23 Dose: 10 mg Saccharomyces Boulardii (Florastor) 250 mg PO BID [facility] Last Admin: 03/07/18 19:47 Dose: 250 mg Sitagliptin Phosphate (Januvia) 25 mg PO DAILY [facility] Last Admin: 03/07/18 09:57 Dose: 25 mg - Labs Labs: 03/07/18 07:31 03/07/18 07:31 PT 15.7 SECONDS (9.7-12.2) H 03/06/18 07:17 INR 1.4 03/06/18 07:17 - Constitutional Appears: Well, No Acute Distress - Head Exam Head Exam: ATRAUMATIC, NORMOCEPHALIC - Eye Exam Eye Exam: EOMI, Normal appearance, PERRL Pupil Exam: NORMAL ACCOMODATION - ENT Exam ENT Exam: Mucous Membranes Moist, Normal Exam - Neck Exam Neck Exam: Normal Inspection - Respiratory Exam Respiratory Exam: Decreased Breath Sounds. absent: Rales, Rhonchi, Wheezes, Respiratory Distress, Stridor Additional comments: decreased breath sounds in b/l lung singh - Cardiovascular Exam Cardiovascular Exam: REGULAR RHYTHM, +S1, +S2. absent: Gallop, Rubs, Murmur - GI/Abdominal Exam GI & Abdominal Exam: Soft, Normal Bowel Sounds. absent: Distended, Firm, Tenderness - Extremities Exam Extremities Exam: Normal Inspection. absent: Calf Tenderness, Pedal Edema Additional comments: edema in b/l LE markedly improved - Neurological Exam Neurological Exam: Alert, Awake, Oriented x3 - Psychiatric Exam Psychiatric exam: Normal Affect, Normal Mood - Skin Skin Exam: Dry. absent: Cyanosis Assessment and Plan - Assessment and Plan (Free Text) Assessment: 82yo F with PMH HTN, DM, HLD, PVD, CKD, COPD, hypothyroid, anemia, nephrolithiasis, leukemia admitted for further evaluation and treatment of pneumonia and pleural effusion. Plan: Pneumonia: - pt afebrile - WBC 23.6, downtrending - CXR 03/08: worsening pulmonary edema w or w/o infiltrates - CXR 03/06 PM: interval worsening R lung, density in L lower lung - CT Chest 03/05: CHF vascular pattern, dilated pulmonary artery 3.6cm, consider pulmonary arterial hypertension. mild b/l pleural effusions with atelectasis at b/l lower lobes. underlying pneumonia not excluded. 3mm right apical nonclacified nodule f/u 12 months - Strept pneumo, influenza, urine legionella, m.pneumonia negative - BCx negative x3 - sputum Cx rejected due to contamination, f/u repeat sputum Cx - continue azithromycin 1gm IV daily (day 5) - continue zosyn 2.25 IV q8h (day 4) - continue Florastor 250mg PO BID - duonebs 3ML INH Q4H [facility] - acetylcysteine 20% 4ml INH q4h [facility] - mucinex 600 mg BID - bipap FiO2 40% - CPT - Pulm consulted, Dr. Uriel Moya Effusion: - CXR 03/08: worsening pulmonary edema w or w/o infiltrates - CXR 03/06 PM: interval worsening R lung, density in L lower lung - CXR 03/06 AM: interval worsening consolidations. interval worsening b/l coaslescent airspace opacities consistent with worsening pulmonary edema. concomitant patchy infiltrates. b/l pleural effusions L>R. slight increase in left pleural effusion. compatible with CHF - CT Chest 03/05: CHF vascular pattern, dilated pulmonary artery 3.6cm, consider pulmonary arterial hypertension. mild b/l pleural effusions with atelectasis at b/l lower lobes. underlying pneumonia not excluded. 3mm right apical nonclacified nodule f/u 12 months - BNP 03/05: 4110 - increase lasix 80mg IV BID, as per nephro - no plan for thoracentesis at this time due to small size of effusions, as per pulm - bipap FiO2 40 - CPT Heart failure with normal ejection fraction - BNP 03/06: 4110 - ECHO: EF 60-65%, mild , mild TR, mild pulm HTN - CXR 03/06 AM: interval worsening consolidations. interval worsening b/l coaslescent airspace opacities consistent with worsening pulmonary edema. concomitant patchy infiltrates. b/l pleural effusions L>R. slight increase in left pleural effusion. compatible with CHF - CT Chest 03/05: CHF vascular pattern, dilated pulmonary artery 3.6cm, consider pulmonary arterial hypertension. mild b/l pleural effusions with atelectasis at b/l lower lobes. underlying pneumonia not excluded. 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 Glaser's group: due to NSAID use - renal US: chronic parenchymal disease, no acute findings - protein excretion rate elevated at 274.5 - Nephro consulted, Dr. Glaser- recs appreciated Anemia - H/H: 9.6/28.1, improved - s/p 2u irradiated leukodepleted PRBC - procrit 20,000u q2wk, as per heme - last dose 03/07 - Heme/onc consulted, Dr. Avel Enrique - f/u recs Hypothyroidism - TSH 4.99 - continue synthroid 100mcg PO QD Dyslipidemia - T, Chol:124, LDL: 49 and HDL: 38 - continue Crestor 10mg PO HS HTN - Continue home medications: HCTZ 12.5MG PO daily Norvasc 10mg PO daily Toprol XL 25mg PO daily COPD - duonebs 3ML INH Q4H [facility] - acetylcysteine 20% 4ml INH q4h [facility] - mucinex 600 mg BID - bipap FiO2 40% - CPT Thrombocytopenia, resolved - Platelet 133 - hold effient is platelet continues to deplete - Heme/onc consulted, Dr. Avel Enrique Peripheral vascular disease - History of stent placement - continue Effient 10mg PO daily, hold if worsening thrombocytopenia Type II DM - HbA1C (09/30/17): 8.3 - Heart healthy diet with low carbohydrate consistency - Accuchecks - Januvia 25mg daily - ISS low dose - Hypoglycemia protocol PPX: DVT: SCDs, effient 10mg PO daily GI: Not indicated PT/OT Patient seen and plan discussed with Dr. Hammer <Liz Hammer - Last Filed: 03/10/18 16:59> Objective - Vital Signs/Intake and Output Vital Signs (last 24 hours): Temp Pulse Resp BP Pulse Ox 98.4 F 95 H 20 166/66 H 94 L 03/08/18 08:26 03/08/18 12:03 03/08/18 08:26 03/08/18 10:00 03/08/18 08:26 Intake and Output: 03/08/18 03/08/18 06:59 18:59 Intake Total 1230 Balance 1230 - Medications Medications: Current Medications Acetylcysteine (Acetylcysteine 20%) 4 ml INH Q4 [facility] Last Admin: 03/08/18 15:32 Dose: 4 ml Albuterol/Ipratropium (Duoneb 3 Mg/0.5 Mg (3 Ml) Ud) 3 ml INH Q4 [facility] Last Admin: 03/08/18 15:32 Dose: 3 ml Amlodipine Besylate (Norvasc) 10 mg PO DAILY [facility] Last Admin: 03/08/18 10:00 Dose: 10 mg Dextrose (Dextrose 50% Inj) 0 ml IV STAT PRN; Protocol PRN Reason: Hypoglycemia Protocol Dextrose (Glutose 15) 0 gm PO ONCE PRN; Protocol PRN Reason: Hypoglycemia Protocol Docusate Sodium (Colace) 100 mg PO BID [facility] Last Admin: 03/08/18 09:59 Dose: 100 mg Furosemide (Lasix) 80 mg IVP Q12 [facility] Last Admin: 03/08/18 10:00 Dose: 80 mg Glucagon (Glucagen Diagnostic Kit) 0 mg IM STAT PRN; Protocol PRN Reason: Hypoglycemia Protocol Guaifenesin (Mucinex La) 600 mg PO BID [facility] Last Admin: 03/08/18 10:00 Dose: 600 mg Azithromycin 500 mg/ Sodium (Chloride) 250 mls @ 250 mls/hr IVPB DAILY [facility]; Protocol Last Admin: 03/08/18 10:01 Dose: 250 mls/hr Dextrose (Dextrose 5% In Water 1000 Ml) 1,000 mls @ 0 mls/hr IV .Q0M PRN; Protocol PRN Reason: Hypoglycemia Protocol Piperacillin Sod/Tazobactam (Sod 2.25 gm/ Sodium Chloride) 100 mls @ 200 mls/hr IVPB Q6H [facility]; Protocol Last Admin: 03/08/18 12:57 Dose: 200 mls/hr Insulin Aspart (Novolog) 0 unit SC ACHS [facility]; Protocol Last Admin: 03/08/18 12:55 Dose: Not Given Levothyroxine Sodium (Synthroid) 100 mcg PO DAILY@0630 [facility] Last Admin: 03/08/18 05:49 Dose: 100 mcg Metolazone (Zaroxolyn) 5 mg PO DAILY [facility] Last Admin: 03/08/18 10:05 Dose: 5 mg Metoprolol Succinate (Toprol Xl) 25 mg PO DAILY [facility] Last Admin: 03/08/18 10:00 Dose: 25 mg Potassium Chloride (Potassium Chloride Oral Soln) 40 meq PO DAILY [facility] Last Admin: 03/08/18 11:12 Dose: Not Given Prasugrel (Effient) 10 mg PO DAILY [facility] Last Admin: 03/08/18 10:05 Dose: 10 mg Rosuvastatin Calcium (Crestor) 10 mg PO HS [facility] Last Admin: 03/07/18 22:23 Dose: 10 mg Saccharomyces Boulardii (Florastor) 250 mg PO BID [facility] Last Admin: 03/08/18 09:59 Dose: 250 mg Sitagliptin Phosphate (Januvia) 25 mg PO DAILY [facility] Last Admin: 03/08/18 10:00 Dose: 25 mg - Labs Labs: 03/08/18 07:20 03/08/18 07:20 PT 15.7 SECONDS (9.7-12.2) H 03/06/18 07:17 INR 1.4 03/06/18 07:17 Attending/Attestation - Attestation I have personally seen and examined this patient.: Yes I have fully participated in the care of the patient.: Yes I have reviewed all pertinent clinical information, including history, physical exam and plan: Yes Notes (Text): Patient is still congested and has pneumonia continue zosyn and zithromax Lasix increased to 80mg BID we will follow up assessment and the plan discussed with the resident and I agree with the documentation
[2018-03-08 07:27] LABS: BASO # 0.1 K/uL (0.0-0.2); BASO % 0.4 % (0.0-2.0); EOS # 0.1 K/uL (0.0-0.7); EOS % 0.6 % (0.0-4.0); HEMOGLOBIN 9.6 g/dL (11.0-16.0); LYMPH # 1.6 K/uL (1.0-4.3); LYMPH % 6.6 % (20.0-40.0); MEAN CELL VOLUME 90.4 fL (81.0-99.0); MEAN CORPUSCULAR HEMOGLOBIN 30.8 pg (27.0-31.0); MEAN CORPUSCULAR HGB CONC 34.1 g/dL (33.0-37.0); MEAN PLATELET VOLUME 10.2 fL (7.2-11.7); MONO # 4.8 K/uL (0.0-0.8); MONO % 20.3 % (0.0-10.0); NEUT # 17.1 K/uL (1.8-7.0); NEUT % 72.1 % (50.0-75.0); NRBC % 0.1 % (0.0-2.0); PLATELET COUNT 133 K/uL (130-400); RBC 3.11 Mil/uL (3.80-5.20); RED CELL DISTRIBUTION WIDTH 16.7 % (11.5-14.5); WHITE BLOOD COUNT 23.6 K/uL (4.8-10.8)
[2018-03-08] MEDS: (Novolog) Insulin Aspart, Recombinant 100 u/ml 10 ml vial SC SCH ×4 (07:37→21:24)
[2018-03-08 08:06] LABS: ALB/GLOB RATIO 0.9 (1.0-2.1); ALBUMIN 3.6 g/dL (3.5-5.0); CALCIUM 8.5 mg/dl (8.6-10.4)
--- NOTE | 2018-03-08 09:00 | RAD ---
Date of service: 03/08/2018 HISTORY: CHF COMPARISON: 03/06/2018 FINDINGS: LUNGS: Bilateral coalescent airspace opacities persist. Greater confluence in greater extent in right hemithorax. Interval increase in left mid lung zone with additional subsegmental atelectasis here inferred. Left basal compressive atelectasis inferred from left pleural effusion. PLEURA: Size of left pleural effusion slightly less albeit still significant. Associated left basal compressive atelectasis inferred. Interval small right pleural effusion No pneumothorax appreciated. CARDIOVASCULAR: There is presence of aortic atherosclerotic calcification on x-ray. Cardiomegaly-similar. Interval increased pulmonary venous congestion. OSSEOUS STRUCTURES: No significant abnormalities. VISUALIZED UPPER ABDOMEN: Normal. OTHER FINDINGS: None. IMPRESSION: Worsening pulmonary edema with or without infiltrates. Follow-up recommended Comments: Study marked for PA review .
[2018-03-08 09:21] LABS: ANISOCYTOSIS SLIGHT; EOSINOPHIL 2 % (0-4); HYPOCHROMIC SLIGHT; LYMPHOCYTE 8 % (20-40); MONOCYTE 20 % (0-10); NEUTROPHIL 70 % (50-75); PLATELET ESTIMATE NORMAL (NORMAL); POIKILOCYTOSIS SLIGHT; TOTAL CELLS COUNTED 100
[2018-03-08 09:22] LABS: LARGE PLATELETS PRESENT
[2018-03-08] MEDS ORDERED: Potassium Chloride 20 mEq ER Tab PO ONE (09:23)
--- NOTE | 2018-03-08 09:32 | CP.PCM.PN ---
Subjective - Date & Time of Evaluation Date of Evaluation: 03/08/18 Time of Evaluation: 09:30 - Subjective Subjective: s/p blood transfusion prbcs CXR with worse pulmonary edema now UO not recorded Azotemia same Discussed with family- advised dialysis unless there is improvement in CHF soon; will try increased diuretics first Objective - Vital Signs/Intake and Output Vital Signs (last 24 hours): Temp Pulse Resp BP Pulse Ox 98.4 F 90 20 154/67 H 94 L 03/08/18 08:26 03/08/18 08:55 03/08/18 08:26 03/08/18 08:26 03/08/18 08:26 Intake and Output: 03/08/18 03/08/18 06:59 18:59 Intake Total 1230 Balance 1230 - Medications Medications: Current Medications Acetylcysteine (Acetylcysteine 20%) 4 ml INH Q4 [facility] Last Admin: 03/08/18 07:52 Dose: 4 ml Albuterol/Ipratropium (Duoneb 3 Mg/0.5 Mg (3 Ml) Ud) 3 ml INH Q4 [facility] Last Admin: 03/08/18 07:52 Dose: 3 ml Amlodipine Besylate (Norvasc) 10 mg PO DAILY [facility] Last Admin: 03/07/18 09:57 Dose: 10 mg Dextrose (Dextrose 50% Inj) 0 ml IV STAT PRN; Protocol PRN Reason: Hypoglycemia Protocol Dextrose (Glutose 15) 0 gm PO ONCE PRN; Protocol PRN Reason: Hypoglycemia Protocol Docusate Sodium (Colace) 100 mg PO BID [facility] Last Admin: 03/07/18 19:47 Dose: 100 mg Furosemide (Lasix) 40 mg IVP BID [facility] Last Admin: 03/07/18 21:01 Dose: 40 mg Glucagon (Glucagen Diagnostic Kit) 0 mg IM STAT PRN; Protocol PRN Reason: Hypoglycemia Protocol Guaifenesin (Mucinex La) 600 mg PO BID [facility] Last Admin: 03/07/18 19:46 Dose: 600 mg Hydrochlorothiazide (Microzide) 12.5 mg PO DAILY [facility] Last Admin: 03/07/18 09:57 Dose: 12.5 mg Azithromycin 500 mg/ Sodium (Chloride) 250 mls @ 250 mls/hr IVPB DAILY [facility]; Protocol Last Admin: 03/07/18 12:39 Dose: 250 mls/hr Dextrose (Dextrose 5% In Water 1000 Ml) 1,000 mls @ 0 mls/hr IV .Q0M PRN; Protocol PRN Reason: Hypoglycemia Protocol Piperacillin Sod/Tazobactam (Sod 2.25 gm/ Sodium Chloride) 100 mls @ 200 mls/hr IVPB Q6H [facility]; Protocol Last Admin: 03/08/18 05:03 Dose: 200 mls/hr Insulin Aspart (Novolog) 0 unit SC ACHS [facility]; Protocol Last Admin: 03/08/18 07:37 Dose: Not Given Levothyroxine Sodium (Synthroid) 100 mcg PO DAILY@0630 [facility] Last Admin: 03/08/18 05:49 Dose: 100 mcg Metoprolol Succinate (Toprol Xl) 25 mg PO DAILY [facility] Last Admin: 03/07/18 09:57 Dose: 25 mg Potassium Chloride (K-Dur 20 Meq Er Tab) 20 meq PO ONCE ONE Stop: 03/08/18 09:24 Prasugrel (Effient) 10 mg PO DAILY [facility] Last Admin: 03/07/18 09:57 Dose: 10 mg Rosuvastatin Calcium (Crestor) 10 mg PO HS [facility] Last Admin: 03/07/18 22:23 Dose: 10 mg Saccharomyces Boulardii (Florastor) 250 mg PO BID [facility] Last Admin: 03/07/18 19:47 Dose: 250 mg Sitagliptin Phosphate (Januvia) 25 mg PO DAILY [facility] Last Admin: 03/07/18 09:57 Dose: 25 mg - Labs Labs: 03/08/18 07:20 03/08/18 07:20 PT 15.7 SECONDS (9.7-12.2) H 03/06/18 07:17 INR 1.4 03/06/18 07:17 - Constitutional Appears: In Acute Distress, Chronically Ill - Head Exam Head Exam: ATRAUMATIC, NORMAL INSPECTION - Eye Exam Eye Exam: EOMI, Normal appearance - Neck Exam Neck Exam: Normal Inspection. absent: Tenderness - Respiratory Exam Respiratory Exam: Rhonchi, Respiratory Distress - Cardiovascular Exam Cardiovascular Exam: REGULAR RHYTHM, +S1 - GI/Abdominal Exam GI & Abdominal Exam: Soft. absent: Tenderness - Extremities Exam Extremities Exam: Normal Inspection. absent: Tenderness - Neurological Exam Neurological Exam: Awake, CN II-XII Intact - Skin Skin Exam: Dry, Warm Assessment and Plan (1) CKD (chronic kidney disease) stage 4, GFR 15-29 ml/min Status: Acute (2) Hypothyroidism Status: Acute (3) CHF (congestive heart failure) Status: Acute (4) Hypothyroidism Status: Acute - Assessment and Plan (Free Text) Plan: Increase diuretics Replete K Consider CEMETERY MANAGER unless improvement soon
[2018-03-08] MEDS: Saccharomyces Boulardi 250 mg Cap PO SCH ×2 (09:59→17:29)
[2018-03-08] MEDS: guaiFENesin 600 mg ER Tab PO SCH ×2 (10:00→17:29)
[2018-03-08] MEDS: Metoprolol Succinate 25 mg XL Tab PO SCH (10:00)
[2018-03-08] MEDS: Azithromycin 500 MG in Sodium Chloride 0.9% 250 ML IVPB SCH (10:01)
[2018-03-08] MEDS: metOLazone 5 MG TAB PO SCH (10:05)
[2018-03-08] MEDS: Potassium Chloride 20 mEq/15 ml LIQ UD PO SCH (11:12)
--- NOTE | 2018-03-08 18:24 | CP.PCM.PN ---
Subjective - Date & Time of Evaluation Date of Evaluation: 03/08/18 Time of Evaluation: 18:24 - Subjective Subjective: She is seen and examined No events overnight Objective - Vital Signs/Intake and Output Vital Signs (last 24 hours): Temp Pulse Resp BP Pulse Ox 98.4 F 101 H 20 149/62 95 03/08/18 15:00 03/08/18 15:00 03/08/18 15:00 03/08/18 15:00 03/08/18 15:00 Intake and Output: 03/08/18 03/08/18 06:59 18:59 Intake Total 1230 Balance 1230 - Medications Medications: Current Medications Acetylcysteine (Acetylcysteine 20%) 4 ml INH Q4 [facility] Last Admin: 03/08/18 15:32 Dose: 4 ml Albuterol/Ipratropium (Duoneb 3 Mg/0.5 Mg (3 Ml) Ud) 3 ml INH Q4 [facility] Last Admin: 03/08/18 15:32 Dose: 3 ml Amlodipine Besylate (Norvasc) 10 mg PO DAILY [facility] Last Admin: 03/08/18 10:00 Dose: 10 mg Dextrose (Dextrose 50% Inj) 0 ml IV STAT PRN; Protocol PRN Reason: Hypoglycemia Protocol Dextrose (Glutose 15) 0 gm PO ONCE PRN; Protocol PRN Reason: Hypoglycemia Protocol Docusate Sodium (Colace) 100 mg PO BID [facility] Last Admin: 03/08/18 17:37 Dose: Not Given Furosemide (Lasix) 80 mg IVP Q12 [facility] Last Admin: 03/08/18 10:00 Dose: 80 mg Glucagon (Glucagen Diagnostic Kit) 0 mg IM STAT PRN; Protocol PRN Reason: Hypoglycemia Protocol Guaifenesin (Mucinex La) 600 mg PO BID [facility] Last Admin: 03/08/18 17:29 Dose: 600 mg Azithromycin 500 mg/ Sodium (Chloride) 250 mls @ 250 mls/hr IVPB DAILY [facility]; Protocol Last Admin: 03/08/18 10:01 Dose: 250 mls/hr Dextrose (Dextrose 5% In Water 1000 Ml) 1,000 mls @ 0 mls/hr IV .Q0M PRN; Protocol PRN Reason: Hypoglycemia Protocol Piperacillin Sod/Tazobactam (Sod 2.25 gm/ Sodium Chloride) 100 mls @ 200 mls/hr IVPB Q6H [facility]; Protocol Last Admin: 10/25/18 17:29 Dose: 200 mls/hr Insulin Aspart (Novolog) 0 unit SC ACHS [facility]; Protocol Last Admin: 03/08/18 17:29 Dose: 2 unit Levothyroxine Sodium (Synthroid) 100 mcg PO DAILY@0630 [facility] Last Admin: 03/08/18 05:49 Dose: 100 mcg Metolazone (Zaroxolyn) 5 mg PO DAILY [facility] Last Admin: 03/08/18 10:05 Dose: 5 mg Metoprolol Succinate (Toprol Xl) 25 mg PO DAILY [facility] Last Admin: 03/08/18 10:00 Dose: 25 mg Potassium Chloride (Potassium Chloride Oral Soln) 40 meq PO DAILY [facility] Last Admin: 03/08/18 11:12 Dose: Not Given Prasugrel (Effient) 10 mg PO DAILY [facility] Last Admin: 03/08/18 10:05 Dose: 10 mg Rosuvastatin Calcium (Crestor) 10 mg PO HS [facility] Last Admin: 03/07/18 22:23 Dose: 10 mg Saccharomyces Boulardii (Florastor) 250 mg PO BID [facility] Last Admin: 03/08/18 17:29 Dose: 250 mg Sitagliptin Phosphate (Januvia) 25 mg PO DAILY [facility] Last Admin: 03/08/18 10:00 Dose: 25 mg - Labs Labs: 03/08/18 07:20 03/08/18 07:20 PT 15.7 SECONDS (9.7-12.2) H 03/06/18 07:17 INR 1.4 03/06/18 07:17 - Head Exam Head Exam: NORMAL INSPECTION - ENT Exam ENT Exam: Mucous Membranes Moist - Respiratory Exam Respiratory Exam: Rales, Rhonchi - Cardiovascular Exam Cardiovascular Exam: REGULAR RHYTHM, +S1, +S2 - GI/Abdominal Exam GI & Abdominal Exam: Soft, Normal Bowel Sounds - Extremities Exam Extremities Exam: Normal Inspection Assessment and Plan (1) Obstructive sleep apnea Status: Acute (2) CKD (chronic kidney disease) stage 4, GFR 15-29 ml/min Status: Acute (3) Pleural effusion Status: Acute (4) Pneumonia Status: Acute (5) Type II diabetes mellitus Status: Acute (6) CHF (congestive heart failure) Status: Acute - Assessment and Plan (Free Text) Plan: BiPAP as needed Continue Lasix Bronchodilators Advair Follow creatinine DVT/GI prophylaxis
--- NOTE | 2018-03-08 22:41 | CP.PCM.PCO ---
Addendum entered and electronically signed by Tommy Aguilera 03/08/18 23:27: House doctor note: Paged for elevated HR. Nursing staff informed HR in low 100s to 110 on tele m on. Nursing staff informed remaining vitals were normal and patient had no complaints. Examined patient at bedside. Patient was lying comfortably in bed sleeping with BIPAP machine. Patient had no complaints, patient denied chest pain, SOB, fevers/ chills. Physical exam cardio: S1, S2. Lungs: Decreased breath sounds b/l, similar finding as noted by day team. Tele monitor shows no EKG changes and HR 99-100 at time of examination. Informed nursing staff to continue to monitor patient and inform if any further changes. Original Note:
[2018-03-09] MEDS: Piperacillin/Tazobact 2.25 GM in Sodium Chloride 100 ML IVPB SCH ×5 (00:04→23:44)
[2018-03-09] MEDS: Albuterol-Ipratrop 3 mg / 0.5 (3 ml) UD INH SCH ×5 (04:13→19:13)
[2018-03-09] MEDS: Acetylcysteine 20% Inhal Soln (4ml) INH SCH ×5 (04:13→19:13)
[2018-03-09] MEDS: Levothyroxine 100 MCG TAB PO SCH (05:37)
[2018-03-09 06:41] LABS: BASO % 0.1 % (0.0-2.0); EOS % 0.2 % (0.0-4.0); HEMOGLOBIN 9.5 g/dL (11.0-16.0); LYMPH # 1.7 K/uL (1.0-4.3); LYMPH % 6.6 % (20.0-40.0); MEAN CELL VOLUME 90.3 fL (81.0-99.0); MEAN CORPUSCULAR HEMOGLOBIN 30.1 pg (27.0-31.0); MEAN CORPUSCULAR HGB CONC 33.3 g/dL (33.0-37.0); MEAN PLATELET VOLUME 10.5 fL (7.2-11.7); MONO # 6.3 K/uL (0.0-0.8); MONO % 24.6 % (0.0-10.0); NEUT # 17.5 K/uL (1.8-7.0); NEUT % 68.5 % (50.0-75.0); NRBC % 0.4 % (0.0-2.0); PLATELET COUNT 138 K/uL (130-400); RBC 3.17 Mil/uL (3.80-5.20); RED CELL DISTRIBUTION WIDTH 16.3 % (11.5-14.5); WHITE BLOOD COUNT 25.6 K/uL (4.8-10.8)
[2018-03-09 07:02] LABS: ALB/GLOB RATIO 0.9 (1.0-2.1); ALBUMIN 3.6 g/dL (3.5-5.0); CALCIUM 8.6 mg/dl (8.6-10.4)
[2018-03-09] MEDS ORDERED: Potassium Chloride 20 mEq/15 ml LIQ UD PO ONE ×2 (07:30→14:00)
[2018-03-09] MEDS: (Novolog) Insulin Aspart, Recombinant 100 u/ml 10 ml vial SC SCH ×4 (07:58→21:40)
[2018-03-09 08:35] LABS: ANISOCYTOSIS SLIGHT; HYPOCHROMIC SLIGHT; LYMPHOCYTE 8 % (20-40); MONOCYTE 22 % (0-10); NEUTROPHIL 70 % (50-75); PLATELET ESTIMATE NORMAL (NORMAL); POIKILOCYTOSIS SLIGHT; TOTAL CELLS COUNTED 100
[2018-03-09 08:36] LABS: POLYCHROMIC SLIGHT
--- NOTE | 2018-03-09 09:32 | CP.PCM.PN ---
<Cherrie Carrasco - Last Filed: 03/09/18 15:43> Subjective - Date & Time of Evaluation Date of Evaluation: 03/09/18 Time of Evaluation: 09:29 - Subjective Subjective: Cherrie Carrasco PGY1 Progress Note for Dr. Hammer Pt was examined at bedside this morning. She reports improvement in the shortness of breath and denies chest tightness. Pt reports continuation of clear sputum. She reports being able to urinate easily. She denies dizziness, headache, chest pain, nausea, vomiting, abdominal pain, diarrhea, dysuria. Objective - Vital Signs/Intake and Output Vital Signs (last 24 hours): Temp Pulse Resp BP Pulse Ox 97.9 F 101 H 20 176/66 H 96 03/09/18 08:00 03/09/18 08:00 03/09/18 08:00 03/09/18 08:00 03/09/18 08:00 - Medications Medications: Current Medications Acetylcysteine (Acetylcysteine 20%) 4 ml INH Q4 [facility] Last Admin: 03/09/18 07:33 Dose: 4 ml Albuterol/Ipratropium (Duoneb 3 Mg/0.5 Mg (3 Ml) Ud) 3 ml INH Q4 [facility] Last Admin: 03/09/18 07:33 Dose: 3 ml Amlodipine Besylate (Norvasc) 10 mg PO DAILY [facility] Last Admin: 03/08/18 10:00 Dose: 10 mg Dextrose (Dextrose 50% Inj) 0 ml IV STAT PRN; Protocol PRN Reason: Hypoglycemia Protocol Dextrose (Glutose 15) 0 gm PO ONCE PRN; Protocol PRN Reason: Hypoglycemia Protocol Docusate Sodium (Colace) 100 mg PO BID [facility] Last Admin: 03/08/18 17:37 Dose: Not Given Furosemide (Lasix) 80 mg IVP Q12 [facility] Last Admin: 03/08/18 21:27 Dose: 80 mg Glucagon (Glucagen Diagnostic Kit) 0 mg IM STAT PRN; Protocol PRN Reason: Hypoglycemia Protocol Guaifenesin (Mucinex La) 600 mg PO BID [facility] Last Admin: 03/08/18 17:29 Dose: 600 mg Azithromycin 500 mg/ Sodium (Chloride) 250 mls @ 250 mls/hr IVPB DAILY [facility]; Protocol Last Admin: 03/08/18 10:01 Dose: 250 mls/hr Dextrose (Dextrose 5% In Water 1000 Ml) 1,000 mls @ 0 mls/hr IV .Q0M PRN; Protocol PRN Reason: Hypoglycemia Protocol Piperacillin Sod/Tazobactam (Sod 2.25 gm/ Sodium Chloride) 100 mls @ 200 mls/hr IVPB Q6H [facility]; Protocol Last Admin: 03/09/18 05:42 Dose: 200 mls/hr Insulin Aspart (Novolog) 0 unit SC ACHS [facility]; Protocol Last Admin: 03/09/18 07:58 Dose: Not Given Levothyroxine Sodium (Synthroid) 100 mcg PO DAILY@0630 [facility] Last Admin: 03/09/18 05:37 Dose: 100 mcg Metolazone (Zaroxolyn) 5 mg PO DAILY [facility] Last Admin: 03/08/18 10:05 Dose: 5 mg Metoprolol Succinate (Toprol Xl) 25 mg PO DAILY [facility] Last Admin: 03/08/18 10:00 Dose: 25 mg Potassium Chloride (Potassium Chloride Oral Soln) 40 meq PO DAILY [facility] Last Admin: 03/08/18 11:12 Dose: Not Given Prasugrel (Effient) 10 mg PO DAILY [facility] Last Admin: 03/08/18 10:05 Dose: 10 mg Rosuvastatin Calcium (Crestor) 10 mg PO HS [facility] Last Admin: 03/08/18 21:27 Dose: 10 mg Saccharomyces Boulardii (Florastor) 250 mg PO BID [facility] Last Admin: 03/08/18 17:29 Dose: 250 mg Sitagliptin Phosphate (Januvia) 25 mg PO DAILY [facility] Last Admin: 03/08/18 10:00 Dose: 25 mg - Labs Labs: 03/09/18 06:32 03/09/18 06:32 PT 15.7 SECONDS (9.7-12.2) H 03/06/18 07:17 INR 1.4 03/06/18 07:17 - Constitutional Appears: Well, No Acute Distress - Head Exam Head Exam: ATRAUMATIC, NORMOCEPHALIC - ENT Exam ENT Exam: Mucous Membranes Moist, Normal Exam - Neck Exam Neck Exam: Normal Inspection - Respiratory Exam Respiratory Exam: Decreased Breath Sounds, NORMAL BREATHING PATTERN. absent: Rales, Rhonchi, Wheezes Additional comments: improved from yesterday - Cardiovascular Exam Cardiovascular Exam: REGULAR RHYTHM, +S1, +S2. absent: Gallop, Rubs, Murmur - GI/Abdominal Exam GI & Abdominal Exam: Soft, Normal Bowel Sounds. absent: Distended, Firm, Tenderness - Extremities Exam Extremities Exam: Normal Inspection, Pedal Edema Additional comments: +1 pitting edema in b/l LE - Back Exam Back Exam: NORMAL INSPECTION - Neurological Exam Neurological Exam: Alert, Awake, Oriented x3 - Psychiatric Exam Psychiatric exam: Normal Affect, Normal Mood - Skin Skin Exam: Dry. absent: Cyanosis Assessment and Plan - Assessment and Plan (Free Text) Assessment: 82yo F with PMH HTN, DM, HLD, PVD, CKD, COPD, hypothyroid, anemia, nephrolithiasis, leukemia admitted for further evaluation and treatment of pn eumonia and pleural effusion. Plan: Pneumonia: - pt afebrile - WBC 25.6, remains elevated - CXR 03/08: worsening pulmonary edema w or w/o infiltrates - CXR 03/06 PM: interval worsening R lung, density in L lower lung - CT Chest 03/05: CHF vascular pattern, dilated pulmonary artery 3.6cm, consider pulmonary arterial hypertension. mild b/l pleural effusions with atelectasis at b/l lower lobes. underlying pneumonia not excluded. 3mm right apical nonclacified nodule f/u 12 months - Strept pneumo, influenza, urine legionella, m.pneumonia negative - BCx negative x3 - sputum Cx: f/u results - continue azithromycin 1gm IV daily (day 5) - continue zosyn 2.25 IV q8h (day 4) - continue Florastor 250mg PO BID - duonebs 3ML INH Q4H [facility] - acetylcysteine 20% 4ml INH q4h [facility] - mucinex 600 mg BID - bipap FiO2 40% - CPT - f/u CXR tomorrow AM - Pulm consulted, Dr. Uriel Moya Effusion: - CXR 03/08: worsening pulmonary edema w or w/o infiltrates - CXR 03/06 PM: interval worsening R lung, density in L lower lung - CXR 03/06 AM: interval worsening consolidations. interval worsening b/l coaslescent airspace opacities consistent with worsening pulmonary edema. concomitant patchy infiltrates. b/l pleural effusions L>R. slight increase in left pleural effusion. compatible with CHF - CT Chest 03/05: CHF vascular pattern, dilated pulmonary artery 3.6cm, consider pulmonary arterial hypertension. mild b/l pleural effusions with atelectasis at b/l lower lobes. underlying pneumonia not excluded. 3mm right apical nonclacified nodule f/u 12 months - BNP 03/05: 4110 - lasix 80mg IV BID - metolazone 5mg PO daily - no plan for thoracentesis at this time due to small size of effusions, as per pulm - bipap FiO2 40 - CPT Heart failure with normal ejection fraction - BNP 03/06: 4110 - ECHO: EF 60-65%, mild , mild TR, mild pulm HTN - CXR 03/06 AM: interval worsening consolidations. interval worsening b/l coaslescent airspace opacities consistent with worsening pulmonary edema. concomitant patchy infiltrates. b/l pleural effusions L>R. slight increase in left pleural effusion. compatible with CHF - CT Chest 03/05: CHF vascular pattern, dilated pulmonary artery 3.6cm, consider pulmonary arterial hypertension. mild b/l pleural effusions with atelectasis at b/l lower lobes. underlying pneumonia not excluded. 3mm right apical nonclacified nodule f/u 12 months - pt scheduled to have stress test 03/[address] 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 Avel Enrique - f/u recs Hypothyroidism - TSH 4.99 - continue synthroid 100mcg PO QD Dyslipidemia - T, Chol:124, LDL: 49 and HDL: 38 - continue Crestor 10mg PO HS HTN - Continue home medications: HCTZ 12.5MG PO daily Norvasc 10mg PO daily Toprol XL 25mg PO daily COPD - duonebs 3ML INH Q4H [facility] - acetylcysteine 20% 4ml INH q4h [facility] - mucinex 600 mg BID - bipap FiO2 40% - CPT Peripheral vascular disease - History of stent placement - continue Effient 10mg PO daily, hold if worsening thrombocytopenia Type II DM - HbA1C (09/30/17): 8.3 - Heart healthy diet with low carbohydrate consistency - Accuchecks - Januvia 25mg daily - ISS low dose - Hypoglycemia protocol PPX: DVT: SCDs, effient 10mg PO daily GI: Not indicated PT/OT Dispo: f/u rpt AM CXR. Continue to monitor fluid status, consider HD as per Dr. Langston recs if no improvement. Patient seen and plan discussed with Dr. Hammer <Liz Hammer - Last Filed: 03/10/18 16:56> Objective - Vital Signs/Intake and Output Vital Signs (last 24 hours): Temp Pulse Resp BP Pulse Ox 98.1 F 87 20 153/51 H 96 03/10/18 15:00 03/10/18 16:08 03/10/18 15:00 03/10/18 15:00 03/10/18 15:00 Intake and Output: 03/10/18 03/10/18 06:59 18:59 Intake Total 820 350 Output Total 1550 785 Balance -730 -435 - Medications Medications: Current Medications Acetylcysteine (Acetylcysteine 20%) 4 ml INH Q4 [facility] Last Admin: 03/10/18 16:02 Dose: 4 ml Albuterol/Ipratropium (Duoneb 3 Mg/0.5 Mg (3 Ml) Ud) 3 ml INH Q4 [facility] Last Admin: 03/10/18 16:02 Dose: 3 ml Amlodipine Besylate (Norvasc) 10 mg PO DAILY [facility] Last Admin: 03/10/18 10:45 Dose: 10 mg Calcium Acetate (Phoslo) 667 mg PO TID [facility] Last Admin: 03/10/18 14:17 Dose: 667 mg Dextrose (Dextrose 50% Inj) 0 ml IV STAT PRN; Protocol PRN Reason: Hypoglycemia Protocol Dextrose (Glutose 15) 0 gm PO ONCE PRN; Protocol PRN Reason: Hypoglycemia Protocol Furosemide (Lasix) 80 mg IVP Q12 [facility] Last Admin: 03/10/18 10:47 Dose: 80 mg Glucagon (Glucagen Diagnostic Kit) 0 mg IM STAT PRN; Protocol PRN Reason: Hypoglycemia Protocol Guaifenesin (Mucinex La) 600 mg PO BID [facility] Last Admin: 03/10/18 10:44 Dose: 600 mg Piperacillin Sod/Tazobactam (Sod 2.25 gm/ Sodium Chloride) 100 mls @ 200 mls/hr IVPB Q6H [facility]; Protocol Last Admin: 03/10/18 12:46 Dose: 200 mls/hr Azithromycin (Zithromax 500mg In Ns Addvantage) 500 mg in 250 mls @ 167 mls/hr IVPB Q24H [facility]; Protocol Insulin Aspart (Novolog) 0 unit SC ACHS [facility]; Protocol Last Admin: 03/10/18 12:46 Dose: Not Given Levothyroxine Sodium (Synthroid) 100 mcg PO DAILY@0630 [facility] Last Admin: 03/10/18 05:42 Dose: 100 mcg Metolazone (Zaroxolyn) 5 mg PO DAILY [facility] Last Admin: 03/10/18 10:46 Dose: 5 mg Metoprolol Succinate (Toprol Xl) 25 mg PO DAILY [facility] Last Admin: 03/10/18 10:44 Dose: 25 mg Potassium Chloride (Potassium Chloride Oral Soln) 40 meq PO DAILY [facility] Last Admin: 03/10/18 10:43 Dose: 40 meq Prasugrel (Effient) 10 mg PO DAILY [facility] Last Admin: 03/10/18 10:46 Dose: 10 mg Rosuvastatin Calcium (Crestor) 10 mg PO HS [facility] Last Admin: 03/09/18 21:33 Dose: 10 mg Saccharomyces Boulardii (Florastor) 250 mg PO BID [facility] Last Admin: 03/10/18 10:43 Dose: 250 mg Sitagliptin Phosphate (Januvia) 25 mg PO DAILY [facility] Last Admin: 03/10/18 10:45 Dose: 25 mg - Labs Labs: 03/10/18 06:29 03/10/18 06:29 PT 15.7 SECONDS (9.7-12.2) H 03/06/18 07:17 INR 1.4 03/06/18 07:17 Attending/Attestation - Attestation I have personally seen and examined this patient.: Yes I have fully participated in the care of the patient.: Yes I have reviewed all pertinent clinical information, including history, physical exam and plan: Yes Notes (Text): Seen and examined Patient has severe pneumonia and congestion Lasix increased by Dr Langston spoke to DR langston lasix increased to 80mg BID and Zaroxolyn added If patient patient is not improving she will need dialysis 03/10/18 16:54
[2018-03-09] MEDS: Potassium Chloride 20 mEq/15 ml LIQ UD PO SCH (10:20)
[2018-03-09] MEDS: guaiFENesin 600 mg ER Tab PO SCH ×2 (10:21→21:35)
[2018-03-09] MEDS: Metoprolol Succinate 25 mg XL Tab PO SCH (10:21)
[2018-03-09] MEDS: Saccharomyces Boulardi 250 mg Cap PO SCH ×2 (10:21→17:54)
[2018-03-09] MEDS: metOLazone 5 MG TAB PO SCH (10:22)
[2018-03-09] MEDS: Azithromycin 500 MG in Sodium Chloride 0.9% 250 ML IVPB SCH (10:25)
--- NOTE | 2018-03-09 13:41 | CP.PCM.PN ---
Subjective - Date & Time of Evaluation Date of Evaluation: 03/09/18 Time of Evaluation: 13:39 - Subjective Subjective: Feels better UO not recorded Creat minimally increased K still very low on cpap; but less dyspneic Objective - Vital Signs/Intake and Output Vital Signs (last 24 hours): Temp Pulse Resp BP Pulse Ox 97.9 F 101 H 20 176/66 H 96 03/09/18 08:00 03/09/18 11:17 03/09/18 08:00 03/09/18 10:21 03/09/18 08:00 - Medications Medications: Current Medications Acetylcysteine (Acetylcysteine 20%) 4 ml INH Q4 [facility] Last Admin: 03/09/18 11:14 Dose: 4 ml Albuterol/Ipratropium (Duoneb 3 Mg/0.5 Mg (3 Ml) Ud) 3 ml INH Q4 [facility] Last Admin: 03/09/18 11:14 Dose: 3 ml Amlodipine Besylate (Norvasc) 10 mg PO DAILY [facility] Last Admin: 03/09/18 10:21 Dose: 10 mg Calcium Acetate (Phoslo) 667 mg PO TID [facility] Dextrose (Dextrose 50% Inj) 0 ml IV STAT PRN; Protocol PRN Reason: Hypoglycemia Protocol Dextrose (Glutose 15) 0 gm PO ONCE PRN; Protocol PRN Reason: Hypoglycemia Protocol Furosemide (Lasix) 80 mg IVP Q12 [facility] Last Admin: 03/09/18 10:21 Dose: 80 mg Glucagon (Glucagen Diagnostic Kit) 0 mg IM STAT PRN; Protocol PRN Reason: Hypoglycemia Protocol Guaifenesin (Mucinex La) 600 mg PO BID [facility] Last Admin: 03/09/18 10:21 Dose: 600 mg Azithromycin 500 mg/ Sodium (Chloride) 250 mls @ 250 mls/hr IVPB DAILY [facility]; P rotocol Last Admin: 03/09/18 10:25 Dose: 250 mls/hr Dextrose (Dextrose 5% In Water 1000 Ml) 1,000 mls @ 0 mls/hr IV .Q0M PRN; Protocol PRN Reason: Hypoglycemia Protocol Piperacillin Sod/Tazobactam (Sod 2.25 gm/ Sodium Chloride) 100 mls @ 200 mls/hr IVPB Q6H [facility]; Protocol Last Admin: 03/09/18 11:26 Dose: 200 mls/hr Insulin Aspart (Novolog) 0 unit SC ACHS [facility]; Protocol Last Admin: 03/09/18 11:32 Dose: 3 unit Levothyroxine Sodium (Synthroid) 100 mcg PO DAILY@0630 [facility] Last Admin: 03/09/18 05:37 Dose: 100 mcg Metolazone (Zaroxolyn) 5 mg PO DAILY [facility] Last Admin: 03/09/18 10:22 Dose: 5 mg Metoprolol Succinate (Toprol Xl) 25 mg PO DAILY [facility] Last Admin: 03/09/18 10:21 Dose: 25 mg Potassium Chloride (Potassium Chloride Oral Soln) 40 meq PO DAILY [facility] Last Admin: 03/09/18 10:20 Dose: 40 meq Potassium Chloride (Potassium Chloride Oral Soln) 40 meq PO ONCE ONE Stop: 03/09/18 14:01 Prasugrel (Effient) 10 mg PO DAILY [facility] Last Admin: 03/09/18 10:22 Dose: 10 mg Rosuvastatin Calcium (Crestor) 10 mg PO HS [facility] Last Admin: 03/08/18 21:27 Dose: 10 mg Saccharomyces Boulardii (Florastor) 250 mg PO BID [facility] Last Admin: 03/09/18 10:21 Dose: 250 mg Sitagliptin Phosphate (Januvia) 25 mg PO DAILY [facility] Last Admin: 03/09/18 10:21 Dose: 25 mg - Labs Labs: 03/09/18 06:32 03/09/18 06:32 PT 15.7 SECONDS (9.7-12.2) H 03/06/18 07:17 INR 1.4 03/06/18 07:17 - Constitutional Appears: No Acute Distress, Chronically Ill - Head Exam Head Exam: ATRAUMATIC, NORMAL INSPECTION - Eye Exam Eye Exam: EOMI, Normal appearance - Neck Exam Neck Exam: Normal Inspection. absent: Tenderness - Respiratory Exam Respiratory Exam: Rhonchi, Respiratory Distress - Cardiovascular Exam Cardiovascular Exam: REGULAR RHYTHM, +S1 - GI/Abdominal Exam GI & Abdominal Exam: Soft. absent: Tenderness - Extremities Exam Extremities Exam: Normal Inspection. absent: Tenderness - Neurological Exam Neurological Exam: Awake, CN II-XII Intact - Skin Skin Exam: Dry, Warm Assessment and Plan (1) CKD (chronic kidney disease) stage 4, GFR 15-29 ml/min Status: Acute (2) Hypothyroidism Status: Acute (3) CHF (congestive heart failure) Status: Acute (4) Hypothyroidism Status: Acute - Assessment and Plan (Free Text) Plan: Add phoslo Same diuretics Record all UO Hold dialysis as pt feels much better Serial chemistries
--- NOTE | 2018-03-09 17:25 | CP.PCM.PN ---
Subjective - Date & Time of Evaluation Date of Evaluation: 03/09/18 Time of Evaluation: 17:22 - Subjective Subjective: Patient is seen and examined On and off BiPAP Feels better Objective - Vital Signs/Intake and Output Vital Signs (last 24 hours): Temp Pulse Resp BP Pulse Ox 98.6 F 90 20 165/75 H 96 03/09/18 16:30 03/09/18 16:30 03/09/18 16:30 03/09/18 16:30 03/09/18 16:30 Intake and Output: 03/09/18 03/09/18 06:59 18:59 Intake Total 850 Output Total 100 Balance 750 - Medications Medications: Current Medications Acetylcysteine (Acetylcysteine 20%) 4 ml INH Q4 [facility] Last Admin: 03/09/18 15:41 Dose: 4 ml Albuterol/Ipratropium (Duoneb 3 Mg/0.5 Mg (3 Ml) Ud) 3 ml INH Q4 [facility] Last Admin: 03/09/18 15:41 Dose: 3 ml Amlodipine Besylate (Norvasc) 10 mg PO DAILY [facility] Last Admin: 03/09/18 10:21 Dose: 10 mg Calcium Acetate (Phoslo) 667 mg PO TID [facility] Last Admin: 03/09/18 14:07 Dose: 667 mg Dextrose (Dextrose 50% Inj) 0 ml IV STAT PRN; Protocol PRN Reason: Hypoglycemia Protocol Dextrose (Glutose 15) 0 gm PO ONCE PRN; Protocol PRN Reason: Hypoglycemia Protocol Furosemide (Lasix) 80 mg IVP Q12 [facility] Last Admin: 03/09/18 10:21 Dose: 80 mg Glucagon (Glucagen Diagnostic Kit) 0 mg IM STAT PRN; Protocol PRN Reason: Hypoglycemia Protocol Guaifenesin (Mucinex La) 600 mg PO BID [facility] Last Admin: 03/09/18 10:21 Dose: 600 mg Azithromycin 500 mg/ Sodium (Chloride) 250 mls @ 250 mls/hr IVPB DAILY [facility]; Protocol Last Admin: 03/09/18 10:25 Dose: 250 mls/hr Dextrose (Dextrose 5% In Water 1000 Ml) 1,000 mls @ 0 mls/hr IV .Q0M PRN; Protocol PRN Reason: Hypoglycemia Protocol Piperacillin Sod/Tazobactam (Sod 2.25 gm/ Sodium Chloride) 100 mls @ 200 mls/hr IVPB Q6H [facility]; Protocol Last Admin: 03/09/18 11:26 Dose: 200 mls/hr Insulin Aspart (Novolog) 0 unit SC ACHS [facility]; Protocol Last Admin: 03/09/18 11:32 Dose: 3 unit Levothyroxine Sodium (Synthroid) 100 mcg PO DAILY@0630 [facility] Last Admin: 03/09/18 05:37 Dose: 100 mcg Metolazone (Zaroxolyn) 5 mg PO DAILY [facility] Last Admin: 03/09/18 10:22 Dose: 5 mg Metoprolol Succinate (Toprol Xl) 25 mg PO DAILY [facility] Last Admin: 03/09/18 10:21 Dose: 25 mg Potassium Chloride (Potassium Chloride Oral Soln) 40 meq PO DAILY [facility] Last Admin: 03/09/18 10:20 Dose: 40 meq Prasugrel (Effient) 10 mg PO DAILY [facility] Last Admin: 03/09/18 10:22 Dose: 10 mg Rosuvastatin Calcium (Crestor) 10 mg PO HS [facility] Last Admin: 03/08/18 21:27 Dose: 10 mg Saccharomyces Boulardii (Florastor) 250 mg PO BID [facility] Last Admin: 03/09/18 10:21 Dose: 250 mg Sitagliptin Phosphate (Januvia) 25 mg PO DAILY [facility] Last Admin: 03/09/18 10:21 Dose: 25 mg - Labs Labs: 03/09/18 06:32 03/09/18 06:32 PT 15.7 SECONDS (9.7-12.2) H 03/06/18 07:17 INR 1.4 03/06/18 07:17 - Head Exam Head Exam: NORMAL INSPECTION - Eye Exam Eye Exam: Normal appearance - ENT Exam ENT Exam: Mucous Membranes Moist - Respiratory Exam Respiratory Exam: Decreased Breath Sounds - Cardiovascular Exam Cardiovascular Exam: REGULAR RHYTHM, +S1, +S2 - GI/Abdominal Exam GI & Abdominal Exam: Soft, Normal Bowel Sounds - Neurological Exam Neurological Exam: Alert, Oriented x3 - Psychiatric Exam Psychiatric exam: Normal Affect, Normal Mood Assessment and Plan (1) Obstructive sleep apnea Status: Acute (2) CKD (chronic kidney disease) stage 4, GFR 15-29 ml/min Status: Acute (3) Pleural effusion Status: Acute (4) Pneumonia Status: Acute (5) Type II diabetes mellitus Status: Acute (6) CHF (congestive heart failure) Status: Acute - Assessment and Plan (Free Text) Plan: Continue Abx BiPAP as needed Lasix Follow Cr and electrolytes DVT/GI prophalaxis
[2018-03-10] MEDS: Albuterol-Ipratrop 3 mg / 0.5 (3 ml) UD INH SCH ×6 (00:51→20:17)
[2018-03-10] MEDS: Acetylcysteine 20% Inhal Soln (4ml) INH SCH ×6 (00:51→20:17)
[2018-03-10] MEDS: Piperacillin/Tazobact 2.25 GM in Sodium Chloride 100 ML IVPB SCH ×4 (05:42→23:51)
[2018-03-10] MEDS: Levothyroxine 100 MCG TAB PO SCH (05:42)
[2018-03-10 06:41] LABS: BASO # 0.1 K/uL (0.0-0.2); BASO % 0.2 % (0.0-2.0); EOS # 0.2 K/uL (0.0-0.7); EOS % 0.8 % (0.0-4.0); HEMOGLOBIN 9.5 g/dL (11.0-16.0); LYMPH # 2.6 K/uL (1.0-4.3); LYMPH % 9.5 % (20.0-40.0); MEAN CELL VOLUME 90.2 fL (81.0-99.0); MEAN CORPUSCULAR HEMOGLOBIN 29.7 pg (27.0-31.0); MEAN CORPUSCULAR HGB CONC 32.9 g/dL (33.0-37.0); MEAN PLATELET VOLUME 10.3 fL (7.2-11.7); MONO # 7.6 K/uL (0.0-0.8); MONO % 27.5 % (0.0-10.0); NEUT # 17.1 K/uL (1.8-7.0); NRBC % 0.9 % (0.0-2.0); PLATELET COUNT 147 K/uL (130-400); RED CELL DISTRIBUTION WIDTH 16.6 % (11.5-14.5); WHITE BLOOD COUNT 27.6 K/uL (4.8-10.8)
[2018-03-10 06:51] LABS: ALB/GLOB RATIO 0.8 (1.0-2.1); ALBUMIN 3.4 g/dL (3.5-5.0); CALCIUM 9.2 mg/dl (8.6-10.4)
[2018-03-10] MEDS: (Novolog) Insulin Aspart, Recombinant 100 u/ml 10 ml vial SC SCH ×4 (08:25→21:31)
--- NOTE | 2018-03-10 08:26 | RAD ---
Date of service: 03/10/2018 HISTORY: pt with CHF, PNA COMPARISON: Portable chest 03/08/2018. FINDINGS: LUNGS: Widespread infiltrates are reiterated greater the right than left chest with left apex least affected. Mild improvement is in question at the right chest with overall better penetration appreciated currently. Left base remains completely opacified. PLEURA: No right pleural effusion. Mild or even moderate left pleural effusion is not excluded. No pneumothorax bilaterally. CARDIOVASCULAR: Prominent cardiac silhouette remains. Pulmonary vascular pattern is obscured by infiltrates bilaterally. Pulmonary venous congestion likely. Calcific atherosclerotic changes are seen related to the thoracic aorta. OSSEOUS STRUCTURES: No significant abnormalities. VISUALIZED UPPER ABDOMEN: Normal. OTHER FINDINGS: None. IMPRESSION: Bilateral pulmonary infiltrates are reiterated but may be improved somewhat at the right. Dense infiltrate at the left base persists as well as the mid left lung zone with underlying CHF not excluded. [id number] left pleural effusion likely at left base. None is seen at the right.
--- NOTE | 2018-03-10 10:09 | CP.PCM.PN ---
Subjective - Date & Time of Evaluation Date of Evaluation: 03/10/18 Time of Evaluation: 10:15 - Subjective Subjective: bp milldy elevated output 1600cc creatinine unchanged at 3.6 up in chair comfortable feels better ROS sob better cough persists,no hepotysis no chest pain no abd pain n,v,d no dysuria Objective - Vital Signs/Intake and Output Vital Signs (last 24 hours): Temp Pulse Resp BP Pulse Ox 97.8 F 81 20 154/53 H 96 03/10/18 07:55 03/10/18 08:31 03/10/18 07:55 03/10/18 07:55 03/10/18 07:55 Intake and Output: 03/10/18 03/10/18 06:59 18:59 Intake Total 820 Output Total 1550 Balance -730 - Medications Medications: Current Medications Acetylcysteine (Acetylcysteine 20%) 4 ml INH Q4 [facility] Last Admin: 03/10/18 08:22 Dose: 4 ml Albuterol/Ipratropium (Duoneb 3 Mg/0.5 Mg (3 Ml) Ud) 3 ml INH Q4 [facility] Last Admin: 03/10/18 08:22 Dose: 3 ml Amlodipine Besylate (Norvasc) 10 mg PO DAILY [facility] Last Admin: 03/09/18 10:21 Dose: 10 mg Calcium Acetate (Phoslo) 667 mg PO TID [facility] Last Admin: 03/09/18 17:53 Dose: 667 mg Dextrose (Dextrose 50% Inj) 0 ml IV STAT PRN; Protocol PRN Reason: Hypoglycemia Protocol Dextrose (Glutose 15) 0 gm PO ONCE PRN; Protocol PRN Reason: Hypoglycemia Protocol Furosemide (Lasix) 80 mg IVP Q12 [facility] Last Admin: 03/09/18 21:34 Dose: 80 mg Glucagon (Glucagen Diagnostic Kit) 0 mg IM STAT PRN; Protocol PRN Reason: Hypoglycemia Protocol Guaifenesin (Mucinex La) 600 mg PO BID [facility] Last Admin: 03/09/18 21:35 Dose: 600 mg Piperacillin Sod/Tazobactam (Sod 2.25 gm/ Sodium Chloride) 100 mls @ 200 mls/hr IVPB Q6H [facility]; Protocol Last Admin: 03/10/18 05:42 Dose: 200 mls/hr Insulin Aspart (Novolog) 0 unit SC ACHS [facility]; Protocol Last Admin: 03/10/18 08:25 Dose: 4 unit Levothyroxine Sodium (Synthroid) 100 mcg PO DAILY@0630 [facility] Last Admin: 03/10/18 05:42 Dose: 100 mcg Metolazone (Zaroxolyn) 5 mg PO DAILY [facility] Last Admin: 03/09/18 10:22 Dose: 5 mg Metoprolol Succinate (Toprol Xl) 25 mg PO DAILY [facility] Last Admin: 03/09/18 10:21 Dose: 25 mg Potassium Chloride (Potassium Chloride Oral Soln) 40 meq PO DAILY [facility] Last Admin: 03/09/18 10:20 Dose: 40 meq Prasugrel (Effient) 10 mg PO DAILY [facility] Last Admin: 03/09/18 10:22 Dose: 10 mg Rosuvastatin Calcium (Crestor) 10 mg PO HS [facility] Last Admin: 03/09/18 21:33 Dose: 10 mg Saccharomyces Boulardii (Florastor) 250 mg PO BID [facility] Last Admin: 03/09/18 17:54 Dose: 250 mg Sitagliptin Phosphate (Januvia) 25 mg PO DAILY [facility] Last Admin: 03/09/18 10:21 Dose: 25 mg - Labs Labs: 03/10/18 06:29 03/10/18 06:29 PT 15.7 SECONDS (9.7-12.2) H 03/06/18 07:17 INR 1.4 03/06/18 07:17 - Constitutional Appears: No Acute Distress - Respiratory Exam Respiratory Exam: Decreased Breath Sounds Additional comments: prolonged inspiration and expiration ocasional wheeze - Cardiovascular Exam Cardiovascular Exam: REGULAR RHYTHM - GI/Abdominal Exam GI & Abdominal Exam: Soft. 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
[2018-03-10 10:10] LABS: BANDS 1 % (0-2); EOSINOPHIL 1 % (0-4); LYMPHOCYTE 10 % (20-40); MONOCYTE 25 % (0-10); NEUTROPHIL 63 % (50-75); NUCLEATED RED BLOOD CELL 2 % (0-0); TOTAL CELLS COUNTED 100
[2018-03-10 10:11] LABS: ANISOCYTOSIS SLIGHT; PLATELET ESTIMATE NORMAL (NORMAL)
[2018-03-10 10:12] LABS: HYPOCHROMIC SLIGHT; OVALOCYTES SLIGHT; POLYCHROMIC SLIGHT; TEARDROP CELLS SLIGHT
[2018-03-10 10:13] LABS: SPHEROCYTES SLIGHT
[2018-03-10] MEDS: Saccharomyces Boulardi 250 mg Cap PO SCH ×2 (10:43→17:37)
[2018-03-10] MEDS: Potassium Chloride 20 mEq/15 ml LIQ UD PO SCH (10:43)
[2018-03-10] MEDS: Metoprolol Succinate 25 mg XL Tab PO SCH (10:44)
[2018-03-10] MEDS: guaiFENesin 600 mg ER Tab PO SCH ×2 (10:44→17:37)
[2018-03-10] MEDS: metOLazone 5 MG TAB PO SCH (10:46)
[2018-03-10] MEDS: Azithromycin 500 MG in Sodium Chloride 0.9% 250 ML IVPB SCH (10:49)
--- NOTE | 2018-03-10 16:47 | CP.PCM.PN ---
Subjective - Date & Time of Evaluation Date of Evaluation: 03/10/18 Time of Evaluation: 17:00 - Subjective Subjective: Seen and examined by me. Patient is lying on bed on BIPAP,No sob,Patient feels better than yesterday less cough,less sputum Today chest ray reviewed. Mild improvement on her right lung continue zosyn and zithromax Patient 's out pt 1650ml /24hrs creatinine 3.6 Objective - Vital Signs/Intake and Output Vital Signs (last 24 hours): Temp Pulse Resp BP Pulse Ox 98.1 F 87 20 153/51 H 96 03/10/18 15:00 03/10/18 16:08 03/10/18 15:00 03/10/18 15:00 03/10/18 15:00 Intake and Output: 03/10/18 03/10/18 06:59 18:59 Intake Total 820 350 Output Total 1550 785 Balance -730 -435 - Medications Medications: Current Medications Acetylcysteine (Acetylcysteine 20%) 4 ml INH Q4 [facility] Last Admin: 03/10/18 16:02 Dose: 4 ml Albuterol/Ipratropium (Duoneb 3 Mg/0.5 Mg (3 Ml) Ud) 3 ml INH Q4 [facility] Last Admin: 03/10/18 16:02 Dose: 3 ml Amlodipine Besylate (Norvasc) 10 mg PO DAILY [facility] Last Admin: 03/10/18 10:45 Dose: 10 mg Calcium Acetate (Phoslo) 667 mg PO TID [facility] Last Admin: 03/10/18 14:17 Dose: 667 mg Dextrose (Dextrose 50% Inj) 0 ml IV STAT PRN; Protocol PRN Reason: Hypoglycemia Protocol Dextrose (Glutose 15) 0 gm PO ONCE PRN; Protocol PRN Reason: Hypoglycemia Protocol Furosemide (Lasix) 80 mg IVP Q12 [facility] Last Admin: 03/10/18 10:47 Dose: 80 mg Glucagon (Glucagen Diagnostic Kit) 0 mg IM STAT PRN; Protocol PRN Reason: Hypoglycemia Protocol Guaifenesin (Mucinex La) 600 mg PO BID [facility] Last Admin: 03/10/18 10:44 Dose: 600 mg Piperacillin Sod/Tazobactam (Sod 2.25 gm/ Sodium Chloride) 100 mls @ 200 mls/hr IVPB Q6H [facility]; Protocol Last Admin: 03/10/18 12:46 Dose: 200 mls/hr Insulin Aspart (Novolog) 0 unit SC ACHS [facility]; Protocol Last Admin: 03/10/18 12:46 Dose: Not Given Levothyroxine Sodium (Synthroid) 100 mcg PO DAILY@0630 [facility] Last Admin: 03/10/18 05:42 Dose: 100 mcg Metolazone (Zaroxolyn) 5 mg PO DAILY [facility] Last Admin: 03/10/18 10:46 Dose: 5 mg Metoprolol Succinate (Toprol Xl) 25 mg PO DAILY [facility] Last Admin: 03/10/18 10:44 Dose: 25 mg Potassium Chloride (Potassium Chloride Oral Soln) 40 meq PO DAILY [facility] Last Admin: 03/10/18 10:43 Dose: 40 meq Prasugrel (Effient) 10 mg PO DAILY [facility] Last Admin: 03/10/18 10:46 Dose: 10 mg Rosuvastatin Calcium (Crestor) 10 mg PO HS [facility] Last Admin: 03/09/18 21:33 Dose: 10 mg Saccharomyces Boulardii (Florastor) 250 mg PO BID [facility] Last Admin: 03/10/18 10:43 Dose: 250 mg Sitagliptin Phosphate (Januvia) 25 mg PO DAILY [facility] Last Admin: 03/10/18 10:45 Dose: 25 mg - Labs Labs: 03/10/18 06:29 03/10/18 06:29 PT 15.7 SECONDS (9.7-12.2) H 03/06/18 07:17 INR 1.4 03/06/18 07:17 - Constitutional Appears: Non-toxic, Chronically Ill - Head Exam Head Exam: NORMAL INSPECTION - Eye Exam Eye Exam: Normal appearance - ENT Exam ENT Exam: Mucous Membranes Moist - Neck Exam Neck Exam: Full ROM - Respiratory Exam Respiratory Exam: Rales. absent: NORMAL BREATHING PATTERN (on bipap with mild sob) - Cardiovascular Exam Cardiovascular Exam: REGULAR RHYTHM - GI/Abdominal Exam GI & Abdominal Exam: Soft, Normal Bowel Sounds - Extremities Exam Extremities Exam: Full ROM, Normal Inspection - Back Exam Back Exam: NORMAL INSPECTION - Neurological Exam Neurological Exam: Awake, Oriented x3 - Psychiatric Exam Psychiatric exam: Normal Mood - Skin Skin Exam: Dry Assessment and Plan - Assessment and Plan (Free Text) Plan: 1. Bilateral Pneumonia ,Pleural effusion and pulmonary edema Chset x ray today with little improvement on her right chest infiltrate Feels little better,on BIPAP with mild sob Continue azithromycin 1gm IV daily continue zosyn 2.25 IV q8h bipap FiO2 40% lasix 80mg IV BID metolazone 5mg PO daily BIPAP on FiO2 40% CT Chest 03/05: CHF vascular pattern, dilated pulmonary artery 3.6cm, consider pulmonary arterial hypertension. mild b/l pleural effusions with atelectasis at b/l lower lobes. underlying pneumonia not excluded. 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 Renal insufficiency today's creatinine 3.6 start phoslo 667mg PO TID Nephro consulted, Dr. Glaser- recs appreciated 4. Anemia - H/H: 9.5/28.7, improved - s/p 2u irradiated leukodepleted PRBC on 03/07 - procrit 20,000u q2wk, as per heme - last dose 03/07 - Heme/onc consulted, Dr. Avel Enrique - f/u recs 5. Hypothyroidism - TSH 4.99 - continue synthroid 100mcg PO QD 6. Dyslipidemia - T, Chol:124, LDL: 49 and HDL: 38 - continue Crestor 10mg PO HS 7. HTN - Continue home medications: HCTZ 12.5MG PO daily Norvasc 10mg PO daily Toprol XL 25mg PO daily 8.COPD - duonebs 3ML INH Q4H [facility] - acetylcysteine 20% 4ml INH q4h [facility] - mucinex 600 mg BID - bipap FiO2 40% - CPT 9.Peripheral vascular disease - History of stent placement - continue Effient 10mg PO daily, hold if worsening thrombocytopenia 10.Type II DM - HbA1C (09/30/17): 8.3 - Heart healthy diet with low carbohydrate consistency - Accuchecks - Januvia 25mg daily - ISS low dose - Hypoglycemia protocol PPX: DVT: SCDs, effient 10mg PO daily GI: Not indicated PT/OT
--- NOTE | 2018-03-10 17:51 | CP.PCM.PN ---
Subjective - Date & Time of Evaluation Date of Evaluation: 03/10/18 Time of Evaluation: 17:51 - Subjective Subjective: Patient is seen and examined Continues to improve clinically Objective - Vital Signs/Intake and Output Vital Signs (last 24 hours): Temp Pulse Resp BP Pulse Ox 98.1 F 87 20 153/51 H 96 03/10/18 15:00 03/10/18 16:08 03/10/18 15:00 03/10/18 15:00 03/10/18 15:00 Intake and Output: 03/10/18 03/10/18 06:59 18:59 Intake Total 820 350 Output Total 1550 785 Balance -730 -435 - Medications Medications: Current Medications Acetylcysteine (Acetylcysteine 20%) 4 ml INH Q4 [facility] Last Admin: 03/10/18 16:02 Dose: 4 ml Albuterol/Ipratropium (Duoneb 3 Mg/0.5 Mg (3 Ml) Ud) 3 ml INH Q4 [facility] Last Admin: 03/10/18 16:02 Dose: 3 ml Amlodipine Besylate (Norvasc) 10 mg PO DAILY [facility] Last Admin: 03/10/18 10:45 Dose: 10 mg Calcium Acetate (Phoslo) 667 mg PO TID [facility] Last Admin: 03/10/18 17:37 Dose: 667 mg Dextrose (Dextrose 50% Inj) 0 ml IV STAT PRN; Protocol PRN Reason: Hypoglycemia Protocol Dextrose (Glutose 15) 0 gm PO ONCE PRN; Protocol PRN Reason: Hypoglycemia Protocol Furosemide (Lasix) 80 mg IVP Q12 [facility] Last Admin: 03/10/18 10:47 Dose: 80 mg Glucagon (Glucagen Diagnostic Kit) 0 mg IM STAT PRN; Protocol PRN Reason: Hypoglycemia Protocol Guaifenesin (Mucinex La) 600 mg PO BID [facility] Last Admin: 03/10/18 17:37 Dose: 600 mg Piperacillin Sod/Tazobactam (Sod 2.25 gm/ Sodium Chloride) 100 mls @ 200 mls/hr IVPB Q6H [facility]; Protocol Last Admin: 03/10/18 17:35 Dose: 200 mls/hr Azithromycin (Zithromax 500mg In Ns Addvantage) 500 mg in 250 mls @ 167 mls/hr IVPB Q24H [facility]; Protocol Insulin Aspart (Novolog) 0 unit SC ACHS [facility]; Protocol Last Admin: 03/10/18 17:36 Dose: 2 unit Levothyroxine Sodium (Synthroid) 100 mcg PO DAILY@0630 [facility] Last Admin: 03/10/18 05:42 Dose: 100 mcg Metolazone (Zaroxolyn) 5 mg PO DAILY [facility] Last Admin: 03/10/18 10:46 Dose: 5 mg Metoprolol Succinate (Toprol Xl) 25 mg PO DAILY [facility] Last Admin: 03/10/18 10:44 Dose: 25 mg Potassium Chloride (Potassium Chloride Oral Soln) 40 meq PO DAILY [facility] Last Admin: 03/10/18 10:43 Dose: 40 meq Prasugrel (Effient) 10 mg PO DAILY [facility] Last Admin: 03/10/18 10:46 Dose: 10 mg Rosuvastatin Calcium (Crestor) 10 mg PO HS [facility] Last Admin: 03/09/18 21:33 Dose: 10 mg Saccharomyces Boulardii (Florastor) 250 mg PO BID [facility] Last Admin: 03/10/18 17:37 Dose: 250 mg Sitagliptin Phosphate (Januvia) 25 mg PO DAILY [facility] Last Admin: 03/10/18 10:45 Dose: 25 mg - Labs Labs: 03/10/18 06:29 03/10/18 06:29 PT 15.7 SECONDS (9.7-12.2) H 03/06/18 07:17 INR 1.4 03/06/18 07:17 - Head Exam Head Exam: NORMAL INSPECTION - Eye Exam Eye Exam: Normal appearance - ENT Exam ENT Exam: Mucous Membranes Moist - Respiratory Exam Respiratory Exam: Decreased Breath Sounds - Cardiovascular Exam Cardiovascular Exam: REGULAR RHYTHM, +S1, +S2 - GI/Abdominal Exam GI & Abdominal Exam: Soft, Normal Bowel Sounds - Extremities Exam Extremities Exam: Normal Inspection - Neurological Exam Neurological Exam: Alert, Oriented x3 - Psychiatric Exam Psychiatric exam: Normal Affect, Normal Mood Assessment and Plan (1) Obstructive sleep apnea Status: Acute (2) CKD (chronic kidney disease) stage 4, GFR 15-29 ml/min Status: Acute (3) Pleural effusion Status: Acute (4) Pneumonia Status: Acute (5) Type II diabetes mellitus Status: Acute (6) CHF (congestive heart failure) Status: Acute - Assessment and Plan (Free Text) Plan: BiPAP as needed Lasix Bronchodilators Continue supportive care DVT/GI prophylaxis
[2018-03-11] MEDS: Albuterol-Ipratrop 3 mg / 0.5 (3 ml) UD INH SCH ×4 (01:16→12:02)
[2018-03-11] MEDS: Acetylcysteine 20% Inhal Soln (4ml) INH SCH ×6 (01:16→23:47)
[2018-03-11] MEDS: Piperacillin/Tazobact 2.25 GM in Sodium Chloride 100 ML IVPB SCH ×4 (05:32→23:43)
[2018-03-11] MEDS: Levothyroxine 100 MCG TAB PO SCH (05:33)
[2018-03-11 07:33] LABS: BASO % 0.1 % (0.0-2.0); EOS # 0.2 K/uL (0.0-0.7); EOS % 0.7 % (0.0-4.0); HEMOGLOBIN 9.6 g/dL (11.0-16.0); LYMPH # 2.3 K/uL (1.0-4.3); LYMPH % 7.4 % (20.0-40.0); MEAN CELL VOLUME 90.2 fL (81.0-99.0); MEAN CORPUSCULAR HEMOGLOBIN 29.5 pg (27.0-31.0); MEAN CORPUSCULAR HGB CONC 32.7 g/dL (33.0-37.0); MEAN PLATELET VOLUME 10.3 fL (7.2-11.7); MONO % 29.2 % (0.0-10.0); NEUT # 19.3 K/uL (1.8-7.0); NEUT % 62.6 % (50.0-75.0); NRBC % 0.9 % (0.0-2.0); PLATELET COUNT 132 K/uL (130-400); RBC 3.27 Mil/uL (3.80-5.20); RED CELL DISTRIBUTION WIDTH 16.7 % (11.5-14.5); WHITE BLOOD COUNT 30.8 K/uL (4.8-10.8)
[2018-03-11 07:38] LABS: ALB/GLOB RATIO 0.9 (1.0-2.1); ALBUMIN 3.2 g/dL (3.5-5.0); CALCIUM 9.4 mg/dl (8.6-10.4)
[2018-03-11] MEDS: (Novolog) Insulin Aspart, Recombinant 100 u/ml 10 ml vial SC SCH ×4 (08:19→21:36)
[2018-03-11 09:05] LABS: ANISOCYTOSIS SLIGHT; BANDS 2 % (0-2); BASOPHIL 2 % (0-2); LYMPHOCYTE 7 % (20-40); MONOCYTE 25 % (0-10); NEUTROPHIL 63 % (50-75); NUCLEATED RED BLOOD CELL 4 % (0-0); PLATELET ESTIMATE NORMAL (NORMAL); POIKILOCYTOSIS SLIGHT; REACTIVE LYMPHOCYTES 1 % (0-0); TOTAL CELLS COUNTED 100
[2018-03-11 09:06] LABS: MICROCYTOSIS SLIGHT
[2018-03-11 09:07] LABS: HYPOCHROMIC SLIGHT; LARGE PLATELETS PRESENT; OVALOCYTES SLIGHT; POLYCHROMIC SLIGHT; TEARDROP CELLS SLIGHT
[2018-03-11] MEDS: Saccharomyces Boulardi 250 mg Cap PO SCH ×2 (09:26→17:50)
[2018-03-11] MEDS: Metoprolol Succinate 25 mg XL Tab PO SCH (09:26)
[2018-03-11] MEDS: guaiFENesin 600 mg ER Tab PO SCH ×2 (09:27→17:50)
[2018-03-11] MEDS: metOLazone 5 MG TAB PO SCH (09:27)
[2018-03-11] MEDS: Potassium Chloride 20 mEq/15 ml LIQ UD PO SCH (09:27)
[2018-03-11] MEDS: Azithromycin 500mg/250ML NS 500 MG/250 ML BAG IVPB SCH (09:45)
--- NOTE | 2018-03-11 20:27 | CP.PCM.PN ---
Subjective - Date & Time of Evaluation Date of Evaluation: 03/11/18 Time of Evaluation: 10:00 - Subjective Subjective: seen and examined feeling better today on bipap Objective - Vital Signs/Intake and Output Vital Signs (last 24 hours): Temp Pulse Resp BP Pulse Ox 98 F 85 20 159/71 H 96 03/11/18 16:00 03/11/18 19:11 03/11/18 16:00 03/11/18 16:00 03/11/18 16:00 Intake and Output: 03/11/18 03/12/18 18:59 06:59 Intake Total 830 Output Total 950 Balance -120 - Medications Medications: Current Medications Acetylcysteine (Acetylcysteine 20%) 4 ml INH Q4 [facility] Last Admin: 03/11/18 15:37 Dose: Not Given Amlodipine Besylate (Norvasc) 10 mg PO DAILY [facility] Last Admin: 03/11/18 09:26 Dose: 10 mg Calcium Acetate (Phoslo) 667 mg PO TID [facility] Last Admin: 03/11/18 17:50 Dose: 667 mg Dextrose (Dextrose 50% Inj) 0 ml IV STAT PRN; Protocol PRN Reason: Hypoglycemia Protocol Dextrose (Glutose 15) 0 gm PO ONCE PRN; Protocol PRN Reason: Hypoglycemia Protocol Furosemide (Lasix) 80 mg IVP Q12 [facility] Last Admin: 03/11/18 09:27 Dose: 80 mg Glucagon (Glucagen Diagnostic Kit) 0 mg IM STAT PRN; Protocol PRN Reason: Hypoglycemia Protocol Guaifenesin (Mucinex La) 600 mg PO BID [facility] Last Admin: 03/11/18 17:50 Dose: 600 mg Piperacillin Sod/Tazobactam (Sod 2.25 gm/ Sodium Chloride) 100 mls @ 200 mls/hr IVPB Q6H [facility]; Protocol Last Admin: 03/11/18 17:50 Dose: 200 mls/hr Azithromycin (Zithromax 500mg In Ns Addvantage) 500 mg in 250 mls @ 167 mls/hr IVPB Q24H [facility]; Protocol Last Admin: 03/11/18 09:45 Dose: 167 mls/hr Insulin Aspart (Novolog) 0 unit SC ACHS [facility]; Protocol Last Admin: 03/11/18 17:49 Dose: 2 unit Levothyroxine Sodium (Synthroid) 100 mcg PO DAILY@0630 [facility] Last Admin: 03/11/18 05:33 Dose: 100 mcg Metolazone (Zaroxolyn) 5 mg PO DAILY [facility] Last Admin: 03/11/18 09:27 Dose: 5 mg Metoprolol Succinate (Toprol Xl) 25 mg PO DAILY [facility] Last Admin: 03/11/18 09:26 Dose: 25 mg Potassium Chloride (Potassium Chloride Oral Soln) 40 meq PO DAILY [facility] Last Admin: 03/11/18 09:27 Dose: 40 meq Prasugrel (Effient) 10 mg PO DAILY [facility] Last Admin: 03/11/18 09:27 Dose: 10 mg Rosuvastatin Calcium (Crestor) 10 mg PO HS [facility] Last Admin: 03/10/18 21:05 Dose: 10 mg Saccharomyces Boulardii (Florastor) 250 mg PO BID [facility] Last Admin: 03/11/18 17:50 Dose: 250 mg Sitagliptin Phosphate (Januvia) 25 mg PO DAILY [facility] Last Admin: 03/11/18 09:26 Dose: 25 mg - Labs Labs: 03/11/18 07:19 03/11/18 07:19 PT 15.7 SECONDS (9.7-12.2) H 03/06/18 07:17 INR 1.4 03/06/18 07:17 - Constitutional Appears: Non-toxic, Chronically Ill - Head Exam Head Exam: NORMAL INSPECTION - Eye Exam Eye Exam: Normal appearance - ENT Exam ENT Exam: Mucous Membranes Moist - Neck Exam Neck Exam: Full ROM - Respiratory Exam Respiratory Exam: Rales, NORMAL BREATHING PATTERN - Cardiovascular Exam Cardiovascular Exam: REGULAR RHYTHM - GI/Abdominal Exam GI & Abdominal Exam: Soft, Normal Bowel Sounds - Extremities Exam Extremities Exam: Full ROM - Back Exam Back Exam: NORMAL INSPECTION - Neurological Exam Neurological Exam: Awake, Oriented x3 - Psychiatric Exam Psychiatric exam: Normal Mood - Skin Skin Exam: Dry Assessment and Plan - Assessment and Plan (Free Text) Plan: 1. Bilateral Pneumonia ,Pleural effusion and pulmonary edema yesterday's Chset x ray with little improvement on her right chest infiltrate Feels little better,on BIPAP Continue azithromycin 1gm IV daily continue zosyn 2.25 IV q8h bipap FiO2 40% lasix 80mg IV BID metolazone 5mg PO daily BIPAP on FiO2 40% CT Chest 03/05: CHF vascular pattern, dilated pulmonary artery 3.6cm, consider pulmonary arterial hypertension. mild b/l pleural effusions with atelectasis at b/l lower lobes. underlying pneumonia not excluded. 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 Renal insufficiency today's creatinine 3.7 start phoslo 667mg PO TID Nephro consulted, Dr. Glaser- recs appreciated 4. Anemia improved - s/p 2u irradiated leukodepleted PRBC on 03/07 - procrit 20,000u q2wk, as per heme - last dose 03/07 - Heme/onc consulted, Dr. Avel Enrique - f/u recs 5. Hypothyroidism - TSH 4.99 - continue synthroid 100mcg PO QD 6. Dyslipidemia - T, Chol:124, LDL: 49 and HDL: 38 - continue Crestor 10mg PO HS 7. HTN - Continue home medications: HCTZ 12.5MG PO daily Norvasc 10mg PO daily Toprol XL 25mg PO daily 8.COPD - duonebs 3ML INH Q4H [facility] - acetylcysteine 20% 4ml INH q4h [facility] - mucinex 600 mg BID - bipap FiO2 40% - CPT 9.Peripheral vascular disease - History of stent placement - continue Effient 10mg PO daily, hold if worsening thrombocytopenia 10.Type II DM - HbA1C (09/30/17): 8.3 - Heart healthy diet with low carbohydrate consistency - Accuchecks - Januvia 25mg daily - ISS low dose - Hypoglycemia protocol PPX: DVT: SCDs, effient 10mg PO daily GI: Not indicated PT/OT d/w daughters at bedside.Patient will be going home once stable.
[2018-03-12] MEDS: Acetylcysteine 20% Inhal Soln (4ml) INH SCH ×5 (03:04→19:41)
[2018-03-12] MEDS: Levothyroxine 100 MCG TAB PO SCH (05:57)
[2018-03-12] MEDS: Piperacillin/Tazobact 2.25 GM in Sodium Chloride 100 ML IVPB SCH ×4 (05:57→23:43)
[2018-03-12 07:50] LABS: BASO # 0.1 K/uL (0.0-0.2); BASO % 0.3 % (0.0-2.0); EOS # 0.3 K/uL (0.0-0.7); EOS % 0.9 % (0.0-4.0); HEMOGLOBIN 9.5 g/dL (11.0-16.0); LYMPH # 2.3 K/uL (1.0-4.3); LYMPH % 8.5 % (20.0-40.0); MEAN CELL VOLUME 90.5 fL (81.0-99.0); MEAN CORPUSCULAR HEMOGLOBIN 29.4 pg (27.0-31.0); MEAN CORPUSCULAR HGB CONC 32.5 g/dL (33.0-37.0); MEAN PLATELET VOLUME 10.1 fL (7.2-11.7); MONO % 29.1 % (0.0-10.0); NEUT # 16.8 K/uL (1.8-7.0); NEUT % 61.2 % (50.0-75.0); NRBC % 0.5 % (0.0-2.0); PLATELET COUNT 140 K/uL (130-400); RBC 3.25 Mil/uL (3.80-5.20); RED CELL DISTRIBUTION WIDTH 16.2 % (11.5-14.5); WHITE BLOOD COUNT 27.4 K/uL (4.8-10.8)
[2018-03-12] MEDS: (Novolog) Insulin Aspart, Recombinant 100 u/ml 10 ml vial SC SCH ×4 (08:01→21:41)
[2018-03-12 08:08] LABS: ALB/GLOB RATIO 0.8 (1.0-2.1); ALBUMIN 3.3 g/dL (3.5-5.0); CALCIUM 9.2 mg/dl (8.6-10.4)
--- NOTE | 2018-03-12 08:24 | CP.PCM.PN ---
<Cherrie Carrasco - Last Filed: 03/12/18 15:02> Subjective - Date & Time of Evaluation Date of Evaluation: 03/12/18 Time of Evaluation: 08:21 - Subjective Subjective: Cherrie Carrasco PGY1 Progress note for Dr. Reyes Pt was examined at bedside this morning. She reports some mild shortness of breath, but no chest tightness. She reports clear phlegm with coughing after breathing treatments. Pt reports normal urination, without difficulty. She denies headache, chest pain, nausea, vomiting, diarrhea. Objective - Vital Signs/Intake and Output Vital Signs (last 24 hours): Temp Pulse Resp BP Pulse Ox 98.8 F 82 26 H 147/60 96 03/12/18 07:00 03/12/18 07:17 03/12/18 07:00 03/12/18 07:00 03/12/18 07:00 Intake and Output: 03/12/18 03/12/18 06:59 18:59 Intake Total 300 Output Total 1700 Balance -1400 - Medications Medications: Current Medications Acetylcysteine (Acetylcysteine 20%) 4 ml INH Q4 [facility] Last Admin: 03/12/18 03:04 Dose: Not Given Amlodipine Besylate (Norvasc) 10 mg PO DAILY [facility] Last Admin: 03/11/18 09:26 Dose: 10 mg Calcium Acetate (Phoslo) 667 mg PO TID [facility] Last Admin: 03/11/18 17:50 Dose: 667 mg Dextrose (Dextrose 50% Inj) 0 ml IV STAT PRN; Protocol PRN Reason: Hypoglycemia Protocol Dextrose (Glutose 15) 0 gm PO ONCE PRN; Protocol PRN Reason: Hypoglycemia Protocol Furosemide (Lasix) 80 mg IVP Q12 [facility] Last Admin: 03/11/18 21:21 Dose: 80 mg Glucagon (Glucagen Diagnostic Kit) 0 mg IM STAT PRN; Protocol PRN Reason: Hypoglycemia Protocol Guaifenesin (Mucinex La) 600 mg PO BID [facility] Last Admin: 03/11/18 17:50 Dose: 600 mg Piperacillin Sod/Tazobactam (Sod 2.25 gm/ Sodium Chloride) 100 mls @ 200 mls/hr IVPB Q6H [facility]; Protocol Last Admin: 03/12/18 05:57 Dose: 200 mls/hr Azithromycin (Zithromax 500mg In Ns Addvantage) 500 mg in 250 mls @ 167 mls/hr IVPB Q24H [facility]; Protocol Last Admin: 03/11/18 09:45 Dose: 167 mls/hr Insulin Aspart (Novolog) 0 unit SC ACHS [facility]; Protocol Last Admin: 03/12/18 08:01 Dose: Not Given Levothyroxine Sodium (Synthroid) 100 mcg PO DAILY@0630 [facility] Last Admin: 03/12/18 05:57 Dose: 100 mcg Metolazone (Zaroxolyn) 5 mg PO DAILY [facility] Last Admin: 03/11/18 09:27 Dose: 5 mg Metoprolol Succinate (Toprol Xl) 25 mg PO DAILY [facility] Last Admin: 03/11/18 09:26 Dose: 25 mg Potassium Chloride (Potassium Chloride Oral Soln) 40 meq PO DAILY [facility] Last Admin: 03/11/18 09:27 Dose: 40 meq Prasugrel (Effient) 10 mg PO DAILY [facility] Last Admin: 03/11/18 09:27 Dose: 10 mg Rosuvastatin Calcium (Crestor) 10 mg PO HS [facility] Last Admin: 03/11/18 21:20 Dose: 10 mg Saccharomyces Boulardii (Florastor) 250 mg PO BID [facility] Last Admin: 03/11/18 17:50 Dose: 250 mg Sitagliptin Phosphate (Januvia) 25 mg PO DAILY [facility] Last Admin: 03/11/18 09:26 Dose: 25 mg - Labs Labs: 03/12/18 07:44 03/12/18 07:44 PT 15.7 SECONDS (9.7-12.2) H 03/06/18 07:17 INR 1.4 03/06/18 07:17 - Constitutional Appears: Well, No Acute Distress - Head Exam Head Exam: ATRAUMATIC, NORMOCEPHALIC - Eye Exam Eye Exam: EOMI, Normal appearance Pupil Exam: NORMAL ACCOMODATION, PERRL - ENT Exam ENT Exam: Mucous Membranes Moist - Neck Exam Neck Exam: Normal Inspection - Cardiovascular Exam Cardiovascular Exam: Diastolic murmur, Gallop, REGULAR RHYTHM, +S1, +S2, Murmur - GI/Abdominal Exam GI & Abdominal Exam: Soft, Normal Bowel Sounds Additional comments: non distended, non tender - Extremities Exam Extremities Exam: Normal Inspection. absent: Joint Swelling, Pedal Edema - Neurological Exam Neurological Exam: Alert, Awake, Oriented x3 - Psychiatric Exam Psychiatric exam: Normal Affect, Normal Mood - Skin Skin Exam: Dry, Normal Color Assessment and Plan - Assessment and Plan (Free Text) Assessment: 82yo F with PMH HTN, DM, HLD, PVD, CKD, COPD, hypothyroid, anemia, nephrolithiasis, leukemia admitted for further evaluation and treatment of pneumonia and pleural effusion. Plan: Pneumonia: - pt afebrile - WBC 27.4, remains elevated - CXR 03/10: b/l infiltrates, improved on the R. L sided pleural effusion remains - CXR 03/08: worsening pulmonary edema w or w/o infiltrates - CT Chest 03/05: CHF vascular pattern, dilated pulmonary artery 3.6cm, consider pulmonary arterial hypertension. mild b/l pleural effusions with atelectasis at b/l lower lobes. underlying pneumonia not excluded. 3mm right apical nonclacified nodule f/u 12 months - Strept pneumo, influenza, urine legionella, m.pneumonia negative - BCx negative final - sputum Cx: normal oral rossi - continue azithromycin 1gm IV daily (day 9) - continue zosyn 2.25 IV q8h (day 8) - continue Florastor 250mg PO BID - duonebs 3ML INH Q4H PRN - acetylcysteine 20% 4ml INH q4h MAINOR - mucinex 600 mg BID - bipap FiO2 40% - CPT - f/u CXR today - Pulm consulted, Dr. Trevino Plueral Effusion: - CXR 03/10: b/l infiltrates, improved on the R. L sided pleural effusion remains - CXR 03/08: worsening pulmonary edema w or w/o infiltrates - CT Chest 03/05: CHF vascular pattern, dilated pulmonary artery 3.6cm, consider pulmonary arterial hypertension. mild b/l pleural effusions with atelectasis at b/l lower lobes. underlying pneumonia not excluded. 3mm right apical non clacified nodule f/u 12 months - BNP 03/05: 4110 - lasix 80mg IV BID - metolazone 5mg PO daily - no plan for thoracentesis at this time due to small size of effusions, as per pulm - bipap FiO2 40: start using at night only - NC 3L for daytime - CPT Heart failure with normal ejection fraction - BNP 03/06: 4110 - ECHO: EF 60-65%, mild , mild TR, mild pulm HTN - CT Chest 03/05: CHF vascular pattern, dilated pulmonary artery 3.6cm, consider pulmonary arterial hypertension. mild b/l pleural effusions with atelectasis at b/l lower lobes. underlying pneumonia not excluded. 3mm right apical nonclacified nodule f/u 12 months - pt scheduled to have stress test 03/[address] Enrique, purchasing administrative assistant - I/O: -1520ml - lasix 80mg IV BID - metolazone 5mg PO daily Renal insufficiency - BUN/Cr: 64/3.6 - I/O: -1520ml - renal US: chronic parenchymal disease, no acute findings - protein excretion rate elevated at 274.5 - continue phoslo 667mg PO TID - Nephro consulted, Dr. 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 Avel Enrique - f/u recs Hypothyroidism - TSH 4.99 - continue synthroid 100mcg PO QD Dyslipidemia - T, Chol:124, LDL: 49 and HDL: 38 - continue Crestor 10mg PO HS HTN - Continue home medications: HCTZ 12.5MG PO daily Norvasc 10mg PO daily Toprol XL 25mg PO daily COPD - duonebs 3ML INH Q4H PRN - acetylcysteine 20% 4ml INH q4h MAINOR - mucinex 600 mg BID - bipap FiO2 40% for nightime - NC 3L for daytime - CPT Peripheral vascular disease - History of stent placement - continue Effient 10mg PO daily, hold if worsening thrombocytopenia Type II DM - HbA1C (09/30/17): 8.3 - Heart healthy diet with low carbohydrate consistency - Accuchecks - Januvia 25mg daily - ISS low dose - Hypoglycemia protocol PPX: DVT: SCDs, effient 10mg PO daily GI: Not indicated PT/OT Dispo: Continue to monitor fluid status, consider HD as per Dr. Langston recs if no improvement. Patient seen and plan discussed with Dr. Reyes <Reyes,Peter H - Last Filed: 03/12/18 17:55> Objective - Vital Signs/Intake and Output Vital Signs (last 24 hours): Temp Pulse Resp BP Pulse Ox 98.1 F 81 20 153/72 H 97 03/12/18 15:25 03/12/18 16:54 03/12/18 15:25 03/12/18 15:25 03/12/18 15:25 Intake and Output: 03/12/18 03/12/18 06:59 18:59 Intake Total 300 Output Total 1700 Balance -1400 - Medications Medications: Current Medications Acetylcysteine (Acetylcysteine 20%) 4 ml INH Q4 [facility] Last Admin: 03/12/18 16:28 Dose: 4 ml Albuterol/Ipratropium (Duoneb 3 Mg/0.5 Mg (3 Ml) Ud) 3 ml INH RQ4 PRN PRN Reason: Shortness of Breath Last Admin: 03/12/18 16:28 Dose: 3 ml Amlodipine Besylate (Norvasc) 10 mg PO DAILY [facility] Last Admin: 03/12/18 10:04 Dose: 10 mg Calcium Acetate (Phoslo) 667 mg PO TID [facility] Last Admin: 03/12/18 17:43 Dose: 667 mg Dextrose (Dextrose 50% Inj) 0 ml IV STAT PRN; Protocol PRN Reason: Hypoglycemia Protocol Dextrose (Glutose 15) 0 gm PO ONCE PRN; Protocol PRN Reason: Hypoglycemia Protocol Furosemide (Lasix) 80 mg IVP Q12 [facility] Last Admin: 03/12/18 10:05 Dose: 80 mg Glucagon (Glucagen Diagnostic Kit) 0 mg IM STAT PRN; Protocol PRN Reason: Hypoglycemia Protocol Guaifenesin (Mucinex La) 600 mg PO BID [facility] Last Admin: 03/12/18 17:43 Dose: 600 mg Piperacillin Sod/Tazobactam (Sod 2.25 gm/ Sodium Chloride) 100 mls @ 200 mls/hr IVPB Q6H [facility]; Protocol Last Admin: 03/12/18 17:43 Dose: 200 mls/hr Azithromycin (Zithromax 500mg In Ns Addvantage) 500 mg in 250 mls @ 167 mls/hr IVPB Q24H [facility]; Protocol Last Admin: 03/12/18 10:08 Dose: 167 mls/hr Insulin Aspart (Novolog) 0 unit SC ACHS [facility]; Protocol Last Admin: 03/12/18 17:47 Dose: 3 unit Levothyroxine Sodium (Synthroid) 100 mcg PO DAILY@0630 [facility] Last Admin: 03/12/18 05:57 Dose: 100 mcg Metolazone (Zaroxolyn) 5 mg PO DAILY [facility] Last Admin: 03/12/18 10:05 Dose: 5 mg Metoprolol Succinate (Toprol Xl) 25 mg PO DAILY [facility] Last Admin: 03/12/18 10:04 Dose: 25 mg Potassium Chloride (Potassium Chloride Oral Soln) 40 meq PO DAILY [facility] Last Admin: 03/12/18 10:06 Dose: 40 meq Prasugrel (Effient) 10 mg PO DAILY [facility] Last Admin: 03/12/18 10:05 Dose: 10 mg Rosuvastatin Calcium (Crestor) 10 mg PO HS [facility] Last Admin: 03/11/18 21:20 Dose: 10 mg Saccharomyces Boulardii (Florastor) 250 mg PO BID [facility] Last Admin: 03/12/18 17:43 Dose: 250 mg Sitagliptin Phosphate (Januvia) 25 mg PO DAILY [facility] Last Admin: 03/12/18 10:05 Dose: 25 mg - Labs Labs: 03/12/18 07:44 03/12/18 07:44 PT 15.7 SECONDS (9.7-12.2) H 03/06/18 07:17 INR 1.4 03/06/18 07:17 Attending/Attestation - Attestation I have personally seen and examined this patient.: Yes I have fully participated in the care of the patient.: Yes I have reviewed all pertinent clinical information, including history, physical exam and plan: Yes Notes (Text): 03/12/18 17:53 Medical attending: Patient was seen and examined by me. Agree with the above note by the resident The patient was not in any acute distress when we came and saw the patient. She is currently reciving large amounts of IV lasix and it appears to be helping signifigantly for her breathing. Also the patient remains on IV abx as well both the Azithromycin and Zosyn She will have a new CXRAY today to monitor her pulmonary status. Reji Reyes
[2018-03-12 08:51] LABS: BANDS 4 % (0-2); LYMPHOCYTE 8 % (20-40); MONOCYTE 17 % (0-10); NEUTROPHIL 71 % (50-75); NUCLEATED RED BLOOD CELL 1 % (0-0); TOTAL CELLS COUNTED 100
[2018-03-12 08:54] LABS: PLATELET ESTIMATE NORMAL (NORMAL)
[2018-03-12 08:56] LABS: ANISOCYTOSIS SLIGHT; HYPOCHROMIC SLIGHT; POLYCHROMIC SLIGHT
[2018-03-12] MEDS: Metoprolol Succinate 25 mg XL Tab PO SCH (10:04)
[2018-03-12] MEDS: metOLazone 5 MG TAB PO SCH (10:05)
[2018-03-12] MEDS: Potassium Chloride 20 mEq/15 ml LIQ UD PO SCH (10:06)
[2018-03-12] MEDS: Saccharomyces Boulardi 250 mg Cap PO SCH ×2 (10:07→17:43)
[2018-03-12] MEDS: guaiFENesin 600 mg ER Tab PO SCH ×2 (10:08→17:43)
[2018-03-12] MEDS: Azithromycin 500mg/250ML NS 500 MG/250 ML BAG IVPB SCH (10:08)
[2018-03-12] MEDS ORDERED: Potassium Chloride 20 mEq ER Tab PO ONE (11:15)
--- NOTE | 2018-03-12 12:08 | CP.PCM.PN ---
Subjective - Date & Time of Evaluation Date of Evaluation: 03/12/18 Time of Evaluation: 12:05 - Subjective Subjective: Less dyspneic K still low CXR 03/10- less CHF Good UO-2500ml creat increased to 3.6 Objective - Vital Signs/Intake and Output Vital Signs (last 24 hours): Temp Pulse Resp BP Pulse Ox 98.8 F 82 26 H 158/66 H 96 03/12/18 07:00 03/12/18 11:59 03/12/18 07:00 03/12/18 10:05 03/12/18 07:00 Intake and Output: 03/12/18 03/12/18 06:59 18:59 Intake Total 300 Output Total 1700 Balance -1400 - Medications Medications: Current Medications Acetylcysteine (Acetylcysteine 20%) 4 ml INH Q4 [facility] Last Admin: 03/12/18 07:05 Dose: 4 ml Albuterol/Ipratropium (Duoneb 3 Mg/0.5 Mg (3 Ml) Ud) 3 ml INH RQ4 PRN PRN Reason: Shortness of Breath Amlodipine Besylate (Norvasc) 10 mg PO DAILY [facility] Last Admin: 03/12/18 10:04 Dose: 10 mg Calcium Acetate (Phoslo) 667 mg PO TID [facility] Last Admin: 03/12/18 10:04 Dose: 667 mg Dextrose (Dextrose 50% Inj) 0 ml IV STAT PRN; Protocol PRN Reason: Hypoglycemia Protocol Dextrose (Glutose 15) 0 gm PO ONCE PRN; Protocol PRN Reason: Hypoglycemia Protocol Furosemide (Lasix) 80 mg IVP Q12 [facility] Last Admin: 03/12/18 10:05 Dose: 80 mg Glucagon (Glucagen Diagnostic Kit) 0 mg IM STAT PRN; Protocol PRN Reason: Hypoglycemia Protocol Guaifenesin (Mucinex La) 600 mg PO BID [facility] Last Admin: 03/12/18 10:08 Dose: 600 mg Piperacillin Sod/Tazobactam (Sod 2.25 gm/ Sodium Chloride) 100 mls @ 200 mls/hr IVPB Q6H [facility]; Protocol Last Admin: 03/12/18 05:57 Dose: 200 mls/hr Azithromycin (Zithromax 500mg In Ns Addvantage) 500 mg in 250 mls @ 167 mls/hr IVPB Q24H [facility]; Protocol Last Admin: 03/12/18 10:08 Dose: 167 mls/hr Insulin Aspart (Novolog) 0 unit SC ACHS [facility]; Protocol Last Admin: 03/12/18 08:01 Dose: Not Given Levothyroxine Sodium (Synthroid) 100 mcg PO DAILY@0630 [facility] Last Admin: 03/12/18 05:57 Dose: 100 mcg Metolazone (Zaroxolyn) 5 mg PO DAILY [facility] Last Admin: 03/12/18 10:05 Dose: 5 mg Metoprolol Succinate (Toprol Xl) 25 mg PO DAILY [facility] Last Admin: 03/12/18 10:04 Dose: 25 mg Potassium Chloride (Potassium Chloride Oral Soln) 40 meq PO DAILY [facility] Last Admin: 03/12/18 10:06 Dose: 40 meq Prasugrel (Effient) 10 mg PO DAILY [facility] Last Admin: 03/12/18 10:05 Dose: 10 mg Rosuvastatin Calcium (Crestor) 10 mg PO HS [facility] Last Admin: 03/11/18 21:20 Dose: 10 mg Saccharomyces Boulardii (Florastor) 250 mg PO BID [facility] Last Admin: 03/12/18 10:07 Dose: 250 mg Sitagliptin Phosphate (Januvia) 25 mg PO DAILY [facility] Last Admin: 03/12/18 10:05 Dose: 25 mg - Labs Labs: 03/12/18 07:44 03/12/18 07:44 PT 15.7 SECONDS (9.7-12.2) H 03/06/18 07:17 INR 1.4 03/06/18 07:17 - Constitutional Appears: No Acute Distress, Chronically Ill - Head Exam Head Exam: ATRAUMATIC, NORMAL INSPECTION - Eye Exam Eye Exam: EOMI, Normal appearance - Neck Exam Neck Exam: Normal Inspection. absent: Tenderness - Respiratory Exam Respiratory Exam: Rhonchi, NORMAL BREATHING PATTERN - Cardiovascular Exam Cardiovascular Exam: REGULAR RHYTHM, +S1 - GI/Abdominal Exam GI & Abdominal Exam: Soft. absent: Tenderness - Extremities Exam Extremities Exam: Normal Inspection. absent: Tenderness - Neurological Exam Neurological Exam: Awake, CN II-XII Intact - Skin Skin Exam: Dry, Warm Assessment and Plan (1) CKD (chronic kidney disease) stage 4, GFR 15-29 ml/min Status: Acute (2) Hypothyroidism Status: Acute (3) CHF (congestive heart failure) Status: Acute (4) Hypothyroidism Status: Acute - Assessment and Plan (Free Text) Plan: Replete K further Soon stop metolazone; wait for further improvement in CHF Daily labs
--- NOTE | 2018-03-12 16:00 | RAD ---
Date of service: 03/12/2018 HISTORY: pneumonia, pleural effusions COMPARISON: Chest radiograph dated 03/10/2018 TECHNIQUE: Chest PA and lateral FINDINGS: LUNGS: Pulmonary vascular congestion. Decreased prominence of bilateral multifocal infiltrates. Left basilar atelectasis and/or consolidation PLEURA: Large left pleural effusion. No appreciable pneumothorax. CARDIOVASCULAR: Aortic atherosclerotic calcifications. Cardiomediastinal silhouette stably enlarged. OSSEOUS STRUCTURES: Unchanged. VISUALIZED UPPER ABDOMEN: Normal. OTHER FINDINGS: None. IMPRESSION: Interval improvement of bilateral pulmonary infiltrates. Large left pleural effusion, grossly stable.
[2018-03-12] MEDS: Albuterol-Ipratrop 3 mg / 0.5 (3 ml) UD INH PRN ×2 (16:28→19:42)
--- NOTE | 2018-03-12 19:02 | CP.PCM.PN ---
Subjective - Date & Time of Evaluation Date of Evaluation: 03/12/18 Time of Evaluation: 19:00 - Subjective Subjective: Patient seen and examined No events overnight Patient reports improved dyspnea Objective - Vital Signs/Intake and Output Vital Signs (last 24 hours): Temp Pulse Resp BP Pulse Ox 98.1 F 81 20 153/72 H 97 03/12/18 15:25 03/12/18 16:54 03/12/18 15:25 03/12/18 15:25 03/12/18 15:25 - Medications Medications: Current Medications Acetylcysteine (Acetylcysteine 20%) 4 ml INH Q4 [facility] Last Admin: 03/12/18 16:28 Dose: 4 ml Albuterol/Ipratropium (Duoneb 3 Mg/0.5 Mg (3 Ml) Ud) 3 ml INH RQ4 PRN PRN Reason: Shortness of Breath Last Admin: 03/12/18 16:28 Dose: 3 ml Amlodipine Besylate (Norvasc) 10 mg PO DAILY [facility] Last Admin: 03/12/18 10:04 Dose: 10 mg Calcium Acetate (Phoslo) 667 mg PO TID [facility] Last Admin: 03/12/18 17:43 Dose: 667 mg Dextrose (Dextrose 50% Inj) 0 ml IV STAT PRN; Protocol PRN Reason: Hypoglycemia Protocol Dextrose (Glutose 15) 0 gm PO ONCE PRN; Protocol PRN Reason: Hypoglycemia Protocol Furosemide (Lasix) 80 mg IVP Q12 [facility] Last Admin: 03/12/18 10:05 Dose: 80 mg Glucagon (Glucagen Diagnostic Kit) 0 mg IM STAT PRN; Protocol PRN Reason: Hypoglycemia Protocol Guaifenesin (Mucinex La) 600 mg PO BID [facility] Last Admin: 03/12/18 17:43 Dose: 600 mg Piperacillin Sod/Tazobactam (Sod 2.25 gm/ Sodium Chloride) 100 mls @ 200 mls/hr IVPB Q6H [facility]; Protocol Last Admin: 03/12/18 17:43 Dose: 200 mls/hr Azithromycin (Zithromax 500mg In Ns Addvantage) 500 mg in 250 mls @ 167 mls/hr IVPB Q24H [facility]; Protocol Last Admin: 03/12/18 10:08 Dose: 167 mls/hr Insulin Aspart (Novolog) 0 unit SC ACHS [facility]; Protocol Last Admin: 03/12/18 17:47 Dose: 3 unit Levothyroxine Sodium (Synthroid) 100 mcg PO DAILY@0630 [facility] Last Admin: 03/12/18 05:57 Dose: 100 mcg Metolazone (Zaroxolyn) 5 mg PO DAILY [facility] Last Admin: 03/12/18 10:05 Dose: 5 mg Metoprolol Succinate (Toprol Xl) 25 mg PO DAILY [facility] Last Admin: 03/12/18 10:04 Dose: 25 mg Potassium Chloride (Potassium Chloride Oral Soln) 40 meq PO DAILY [facility] Last Admin: 03/12/18 10:06 Dose: 40 meq Prasugrel (Effient) 10 mg PO DAILY [facility] Last Admin: 03/12/18 10:05 Dose: 10 mg Rosuvastatin Calcium (Crestor) 10 mg PO HS [facility] Last Admin: 03/11/18 21:20 Dose: 10 mg Saccharomyces Boulardii (Florastor) 250 mg PO BID [facility] Last Admin: 03/12/18 17:43 Dose: 250 mg Sitagliptin Phosphate (Januvia) 25 mg PO DAILY [facility] Last Admin: 03/12/18 10:05 Dose: 25 mg - Labs Labs: 03/12/18 07:44 03/12/18 07:44 PT 15.7 SECONDS (9.7-12.2) H 03/06/18 07:17 INR 1.4 03/06/18 07:17 - Head Exam Head Exam: NORMAL INSPECTION - Eye Exam Eye Exam: Normal appearance - ENT Exam ENT Exam: Mucous Membranes Moist - Respiratory Exam Respiratory Exam: Decreased Breath Sounds, Rhonchi - Cardiovascular Exam Cardiovascular Exam: REGULAR RHYTHM, +S1, +S2 - GI/Abdominal Exam GI & Abdominal Exam: Soft, Normal Bowel Sounds - Extremities Exam Extremities Exam: Normal Inspection - Neurological Exam Neurological Exam: Alert, Oriented x3 - Psychiatric Exam Psychiatric exam: Normal Affect, Normal Mood Assessment and Plan (1) Obstructive sleep apnea Status: Acute (2) CKD (chronic kidney disease) stage 4, GFR 15-29 ml/min Status: Acute (3) Pleural effusion Status: Acute (4) Pneumonia Status: Acute (5) Type II diabetes mellitus Status: Acute (6) CHF (congestive heart failure) Status: Acute - Assessment and Plan (Free Text) Plan: BiPAP as needed Continue diuresis Bronchodilators Continue antibiotics Patient will need left-sided thoracentesis once stable DVT/GI prophylax
[2018-03-13] MEDS: Levothyroxine 100 MCG TAB PO SCH (05:30)
[2018-03-13] MEDS: Piperacillin/Tazobact 2.25 GM in Sodium Chloride 100 ML IVPB SCH ×4 (05:30→23:38)
[2018-03-13 07:07] LABS: BASO # 0.1 K/uL (0.0-0.2); BASO % 0.5 % (0.0-2.0); EOS # 0.1 K/uL (0.0-0.7); EOS % 0.6 % (0.0-4.0); HEMOGLOBIN 9.2 g/dL (11.0-16.0); LYMPH # 2.2 K/uL (1.0-4.3); LYMPH % 8.7 % (20.0-40.0); MEAN CELL VOLUME 90.2 fL (81.0-99.0); MEAN CORPUSCULAR HEMOGLOBIN 30.2 pg (27.0-31.0); MEAN CORPUSCULAR HGB CONC 33.4 g/dL (33.0-37.0); MEAN PLATELET VOLUME 10.4 fL (7.2-11.7); MONO # 7.2 K/uL (0.0-0.8); MONO % 28.1 % (0.0-10.0); NEUT % 62.1 % (50.0-75.0); NRBC % 0.5 % (0.0-2.0); PLATELET COUNT 130 K/uL (130-400); RBC 3.06 Mil/uL (3.80-5.20); RED CELL DISTRIBUTION WIDTH 16.2 % (11.5-14.5); WHITE BLOOD COUNT 25.7 K/uL (4.8-10.8)
[2018-03-13] MEDS: Acetylcysteine 20% Inhal Soln (4ml) INH SCH ×5 (07:36→23:51)
[2018-03-13] MEDS: Albuterol-Ipratrop 3 mg / 0.5 (3 ml) UD INH PRN ×4 (07:36→19:43)
[2018-03-13 08:08] LABS: ALB/GLOB RATIO 0.9 (1.0-2.1); ALBUMIN 3.3 g/dL (3.5-5.0); CALCIUM 9.1 mg/dl (8.6-10.4)
[2018-03-13] MEDS: (Novolog) Insulin Aspart, Recombinant 100 u/ml 10 ml vial SC SCH ×4 (08:38→22:12)
[2018-03-13 08:44] LABS: BANDS 5 % (0-2); LYMPHOCYTE 11 % (20-40); MONOCYTE 25 % (0-10); NEUTROPHIL 59 % (50-75); TOTAL CELLS COUNTED 100
[2018-03-13 08:45] LABS: ANISOCYTOSIS SLIGHT; PLATELET ESTIMATE NORMAL (NORMAL)
[2018-03-13 08:47] LABS: HYPOCHROMIC SLIGHT; POLYCHROMIC SLIGHT
--- NOTE | 2018-03-13 10:42 | CP.PCM.PN ---
Subjective - Date & Time of Evaluation Date of Evaluation: 03/13/18 Time of Evaluation: 10:41 - Subjective Subjective: seen and examined improved breathing denies any cp improved leg swelling Objective - Vital Signs/Intake and Output Vital Signs (last 24 hours): Temp Pulse Resp BP Pulse Ox 98.1 F 86 18 159/53 H 94 L 03/13/18 07:00 03/13/18 07:00 03/13/18 07:00 03/13/18 07:00 03/13/18 07:00 Intake and Output: 03/13/18 03/13/18 06:59 18:59 Output Total 800 1200 Balance -800 -1200 - Medications Medications: Current Medications Acetylcysteine (Acetylcysteine 20%) 4 ml INH Q4 [facility] Last Admin: 03/13/18 07:36 Dose: 4 ml Albuterol/Ipratropium (Duoneb 3 Mg/0.5 Mg (3 Ml) Ud) 3 ml INH RQ4 PRN PRN Reason: Shortness of Breath Last Admin: 03/13/18 07:36 Dose: 3 ml Amlodipine Besylate (Norvasc) 10 mg PO DAILY [facility] Last Admin: 03/12/18 10:04 Dose: 10 mg Calcium Acetate (Phoslo) 667 mg PO TID [facility] Last Admin: 03/12/18 17:43 Dose: 667 mg Dextrose (Dextrose 50% Inj) 0 ml IV STAT PRN; Protocol PRN Reason: Hypoglycemia Protocol Dextrose (Glutose 15) 0 gm PO ONCE PRN; Protocol PRN Reason: Hypoglycemia Protocol Furosemide (Lasix) 80 mg IVP Q12 [facility] Last Admin: 03/12/18 21:25 Dose: 80 mg Glucagon (Glucagen Diagnostic Kit) 0 mg IM STAT PRN; Protocol PRN Reason: Hypoglycemia Protocol Guaifenesin (Mucinex La) 600 mg PO BID [facility] Last Admin: 03/12/18 17:43 Dose: 600 mg Piperacillin Sod/Tazobactam (Sod 2.25 gm/ Sodium Chloride) 100 mls @ 200 mls/hr IVPB Q6H [facility]; Protocol Last Admin: 03/13/18 05:30 Dose: 200 mls/hr Azithromycin (Zithromax 500mg In Ns Addvantage) 500 mg in 250 mls @ 167 mls/hr IVPB Q24H [facility]; Protocol Last Admin: 03/12/18 10:08 Dose: 167 mls/hr Insulin Aspart (Novolog) 0 unit SC ACHS [facility]; Protocol Last Admin: 03/13/18 08:38 Dose: 1 unit Levothyroxine Sodium (Synthroid) 100 mcg PO DAILY@0630 [facility] Last Admin: 03/13/18 05:30 Dose: 100 mcg Metoprolol Succinate (Toprol Xl) 25 mg PO DAILY [facility] Last Admin: 03/12/18 10:04 Dose: 25 mg Potassium Chloride (Potassium Chloride Oral Soln) 40 meq PO DAILY [facility] Last Admin: 03/12/18 10:06 Dose: 40 meq Prasugrel (Effient) 10 mg PO DAILY [facility] Last Admin: 03/12/18 10:05 Dose: 10 mg Rosuvastatin Calcium (Crestor) 10 mg PO HS [facility] Last Admin: 03/12/18 21:25 Dose: 10 mg Saccharomyces Boulardii (Florastor) 250 mg PO BID [facility] Last Admin: 03/12/18 17:43 Dose: 250 mg Sitagliptin Phosphate (Januvia) 25 mg PO DAILY [facility] Last Admin: 03/12/18 10:05 Dose: 25 mg - Labs Labs: 03/13/18 06:36 03/13/18 06:36 PT 15.7 SECONDS (9.7-12.2) H 03/06/18 07:17 INR 1.4 03/06/18 07:17 - Constitutional Appears: Non-toxic, No Acute Distress, Chronically Ill - Head Exam Head Exam: NORMAL INSPECTION, NORMOCEPHALIC - Eye Exam Eye Exam: Normal appearance, PERRL - ENT Exam ENT Exam: Mucous Membranes Moist, Normal Exam - Neck Exam Neck Exam: Full ROM, Normal Inspection - Respiratory Exam Respiratory Exam: Decreased Breath Sounds (b/l bases), Rhonchi, NORMAL BREATHING PATTERN - Cardiovascular Exam Cardiovascular Exam: REGULAR RHYTHM, RRR - GI/Abdominal Exam GI & Abdominal Exam: Distended, Soft - Extremities Exam Extremities Exam: Normal Inspection, Pedal Edema - Neurological Exam Neurological Exam: Alert, Awake, Oriented x3 - Psychiatric Exam Psychiatric exam: Normal Affect, Normal Mood - Skin Skin Exam: Normal Color, Warm Assessment and Plan (1) CKD (chronic kidney disease) stage 4, GFR 15-29 ml/min Status: Acute (2) Diastolic heart failure Status: Acute (3) Heart failure with normal ejection fraction Status: Acute (4) Pleural effusion Status: Acute (5) Pneumonia Status: Acute (6) Type II diabetes mellitus Status: Acute (7) CMML (chronic myelomonocytic leukemia) Status: Acute - Assessment and Plan (Free Text) Assessment: worsening renal function - dc metolazone, lower lasix dose consider thoracentesis antibiotics / supportive care
[2018-03-13] MEDS: guaiFENesin 600 mg ER Tab PO SCH ×2 (10:43→18:38)
[2018-03-13] MEDS: Saccharomyces Boulardi 250 mg Cap PO SCH ×2 (10:43→18:37)
[2018-03-13] MEDS: Metoprolol Succinate 25 mg XL Tab PO SCH (10:44)
[2018-03-13] MEDS: Potassium Chloride 20 mEq/15 ml LIQ UD PO SCH (10:45)
--- NOTE | 2018-03-13 11:14 | PCM.IRP ---
History of Present Illness - History of Present Illness History of Present Illness: IR consulted for left thoracentesis. Imaging reviewed including recent chest CT and CXR. There is no signficant change in CXR since the chest CT. Chest CT showed a small left effusion and atelectasis. I believe the left lower lobe opacity is a combination of small effusion and atelectasis. The degree of fluid on the previous chest CT is too small to drain. Recommend obtaining an ultrasound of left chest for evaluation of pleural effusion. Objective - Vital Signs/Intake and Output Vital Signs (last 24 hours): Vital Signs - 24 hr 03/12/18 03/12/18 03/12/18 11:59 14:06 15:25 Temperature 98.1 F Pulse Rate 82 80 Respiratory 20 Rate Blood Pressure 153/72 H O2 Sat by Pulse 98 97 Oximetry 03/12/18 03/12/18 03/12/18 16:54 21:25 23:00 Temperature Pulse Rate 81 89 Respiratory Rate Blood Pressure 133/57 L O2 Sat by Pulse Oximetry 03/13/18 03/13/18 03/13/18 00:31 07:00 10:44 Temperature 98.3 F 98.1 F Pulse Rate 91 H 86 Respiratory 18 18 Rate Blood Pressure 138/61 159/53 H 144/64 O2 Sat by Pulse 95 94 L Oximetry Intake and Output (last 12 hours): Intake & Output 03/12/18 03/13/18 03/13/18 18:59 06:59 18:59 Output Total 800 1200 Balance -800 -1200 Output: Urine 800 1200 Urine, Voided 800 1200 Other: # Bowel Movements 1 2 - Medications Medications: Current Medications Acetylcysteine (Acetylcysteine 20%) 4 ml INH Q4 [facility] Last Admin: 03/13/18 07:36 Dose: 4 ml Albuterol/Ipratropium (Duoneb 3 Mg/0.5 Mg (3 Ml) Ud) 3 ml INH RQ4 PRN PRN Reason: Shortness of Breath Last Admin: 03/13/18 07:36 Dose: 3 ml Amlodipine Besylate (Norvasc) 10 mg PO DAILY [facility] Last Admin: 03/13/18 10:44 Dose: 10 mg Calcium Acetate (Phoslo) 667 mg PO TID [facility] Last Admin: 03/13/18 10:45 Dose: 667 mg Dextrose (Dextrose 50% Inj) 0 ml IV STAT PRN; Protocol PRN Reason: Hypoglycemia Protocol Dextrose (Glutose 15) 0 gm PO ONCE PRN; Protocol PRN Reason: Hypoglycemia Protocol Furosemide (Lasix) 80 mg IVP Q12 [facility] Last Admin: 03/13/18 10:44 Dose: 80 mg Glucagon (Glucagen Diagnostic Kit) 0 mg IM STAT PRN; Protocol PRN Reason: Hypoglycemia Protocol Guaifenesin (Mucinex La) 600 mg PO BID [facility] Last Admin: 03/13/18 10:43 Dose: 600 mg Piperacillin Sod/Tazobactam (Sod 2.25 gm/ Sodium Chloride) 100 mls @ 200 mls/hr IVPB Q6H [facility]; Protocol Last Admin: 03/13/18 05:30 Dose: 200 mls/hr Azithromycin (Zithromax 500mg In Ns Addvantage) 500 mg in 250 mls @ 167 mls/hr IVPB Q24H [facility]; Protocol Last Admin: 03/12/18 10:08 Dose: 167 mls/hr Insulin Aspart (Novolog) 0 unit SC ACHS [facility]; Protocol Last Admin: 03/13/18 08:38 Dose: 1 unit Levothyroxine Sodium (Synthroid) 100 mcg PO DAILY@0630 [facility] Last Admin: 03/13/18 05:30 Dose: 100 mcg Metoprolol Succinate (Toprol Xl) 25 mg PO DAILY [facility] Last Admin: 03/13/18 10:44 Dose: 25 mg Potassium Chloride (Potassium Chloride Oral Soln) 40 meq PO DAILY [facility] Last Admin: 03/13/18 10:45 Dose: 40 meq Prasugrel (Effient) 10 mg PO DAILY [facility] Last Admin: 03/13/18 10:45 Dose: 10 mg Rosuvastatin Calcium (Crestor) 10 mg PO HS [facility] Last Admin: 03/12/18 21:25 Dose: 10 mg Saccharomyces Boulardii (Florastor) 250 mg PO BID [facility] Last Admin: 03/13/18 10:43 Dose: 250 mg Sitagliptin Phosphate (Januvia) 25 mg PO DAILY [facility] Last Admin: 03/13/18 10:44 Dose: 25 mg - Labs Labs (last 24 hours): Laboratory Results - last 24 hr 03/12/18 03/12/18 03/13/18 16:10 20:43 06:02 WBC RBC Hgb Hct MCV MCH MCHC RDW Plt Count MPV Neut % (Auto) Lymph % (Auto) Avery % (Auto) Eos % (Auto) Baso % (Auto) Neut # (Auto) Lymph # (Auto) Avery # (Auto) Eos # (Auto) Baso # (Auto) Neutrophils % (Manual) Band Neutrophils % Lymphocytes % (Manual) Monocytes % (Manual) Platelet Estimate Polychromasia Hypochromasia (manual) Anisocytosis (manual) Sodium Potassium Chloride Carbon Dioxide Anion Gap BUN Creatinine Est GFR ( Amer) Est GFR (Non-Af Amer) POC Glucose (mg/dL) 272 H 184 H 151 H Random Glucose Calcium Phosphorus Magnesium Total Bilirubin AST ALT Alkaline Phosphatase Total Protein Albumin Globulin Albumin/Globulin Ratio 03/13/18 03/13/18 03/13/18 06:36 06:36 10:55 WBC 25.7 H RBC 3.06 L Hgb 9.2 L Hct 27.6 L MCV 90.2 MCH 30.2 MCHC 33.4 RDW 16.2 H Plt Count 130 MPV 10.4 Neut % (Auto) 62.1 Lymph % (Auto) 8.7 L Avery % (Auto) 28.1 H Eos % (Auto) 0.6 Baso % (Auto) 0.5 Neut # (Auto) 16.0 H Lymph # (Auto) 2.2 Avery # (Auto) 7.2 H Eos # (Auto) 0.1 Baso # (Auto) 0.1 Neutrophils % (Manual) 59 Band Neutrophils % 5 H Lymphocytes % (Manual) 11 L Monocytes % (Manual) 25 H Platelet Estimate Normal Polychromasia Slight Hypochromasia (manual) Slight Anisocytosis (manual) Slight Sodium 140 Potassium 3.9 Chloride 99 Carbon Dioxide 29 Anion Gap 17 BUN 64 H Creatinine 3.9 H Est GFR ( Amer) 13 Est GFR (Non-Af Amer) 11 POC Glucose (mg/dL) 226 H Random Glucose 136 H Calcium 9.1 Phosphorus 5.4 H Magnesium 1.7 Total Bilirubin 0.5 AST 20 ALT 22 Alkaline Phosphatase 50 Total Protein 7.0 Albumin 3.3 L Globulin 3.7 Albumin/Globulin Ratio 0.9 L
[2018-03-13] MEDS: Azithromycin 500mg/250ML NS 500 MG/250 ML BAG IVPB SCH (11:29)
--- NOTE | 2018-03-13 14:03 | US ---
Limited bilateral heriberto thorax ultrasound History: Pleural effusion. Comparison: 03/12/2018 Technique: Limited bilateral hemithorax ultrasound was performed. Findings: Moderate to large left pleural effusion measuring up to 9.4 x 6.0 x 11.8 centimeters. No discrete right pleural effusion was identified. Impression: Moderate to large left pleural effusion.
--- NOTE | 2018-03-13 15:51 | CP.PCM.PN ---
<Cherrie Carrasco - Last Filed: 03/13/18 15:54> Subjective - Date & Time of Evaluation Date of Evaluation: 03/13/18 Time of Evaluation: 09:00 - Subjective Subjective: Cherrie Carrasco PGY1 Progress note for Dr. Reyes pt was examined in the chair this morning. She reports improvement in shortness of breath, but complains of chest heaviness. She reports continuation of her clear phlegm after breathing treatments. She reports urinating easily. Pt says she does not want to go to rehab, prefers to go home upon discharge. She denies any dizziness, chest pain, nausea. vomiting, diarrhea, dysuria. Objective - Vital Signs/Intake and Output Vital Signs (last 24 hours): Temp Pulse Resp BP Pulse Ox 98.1 F 86 18 144/64 94 L 03/13/18 07:00 03/13/18 07:00 03/13/18 07:00 03/13/18 10:44 03/13/18 07:00 Intake and Output: 03/13/18 03/13/18 06:59 18:59 Output Total 800 1200 Balance -800 -1200 - Medications Medications: Current Medications Acetylcysteine (Acetylcysteine 20%) 4 ml INH Q4 [facility] Last Admin: 03/13/18 11:37 Dose: 4 ml Albuterol/Ipratropium (Duoneb 3 Mg/0.5 Mg (3 Ml) Ud) 3 ml INH RQ4 PRN PRN Reason: Shortness of Breath Last Admin: 03/13/18 11:37 Dose: 3 ml Amlodipine Besylate (Norvasc) 10 mg PO DAILY [facility] Last Admin: 03/13/18 10:44 Dose: 10 mg Calcium Acetate (Phoslo) 667 mg PO TID [facility] Last Admin: 03/13/18 13:51 Dose: 667 mg Dextrose (Dextrose 50% Inj) 0 ml IV STAT PRN; Protocol PRN Reason: Hypoglycemia Protocol Dextrose (Glutose 15) 0 gm PO ONCE PRN; Protocol PRN Reason: Hypoglycemia Protocol Furosemide (Lasix) 40 mg IVP DAILY [facility] Glucagon (Glucagen Diagnostic Kit) 0 mg IM STAT PRN; Protocol PRN Reason: Hypoglycemia Protocol Guaifenesin (Mucinex La) 600 mg PO BID [facility] Last Admin: 03/13/18 10:43 Dose: 600 mg Piperacillin Sod/Tazobactam (Sod 2.25 gm/ Sodium Chloride) 100 mls @ 200 mls/hr IVPB Q6H [facility]; Protocol Last Admin: 03/13/18 12:41 Dose: 200 mls/hr Azithromycin (Zithromax 500mg In Ns Addvantage) 500 mg in 250 mls @ 167 mls/hr IVPB Q24H [facility]; Protocol Last Admin: 03/13/18 11:29 Dose: 167 mls/hr Insulin Aspart (Novolog) 0 unit SC ACHS [facility]; Protocol Last Admin: 03/13/18 12:40 Dose: 2 unit Levothyroxine Sodium (Synthroid) 100 mcg PO DAILY@0630 [facility] Last Admin: 03/13/18 05:30 Dose: 100 mcg Metoprolol Succinate (Toprol Xl) 25 mg PO DAILY [facility] Last Admin: 03/13/18 10:44 Dose: 25 mg Potassium Chloride (Potassium Chloride Oral Soln) 40 meq PO DAILY [facility] Last Admin: 03/13/18 10:45 Dose: 40 meq Prasugrel (Effient) 10 mg PO DAILY [facility] Last Admin: 03/13/18 10:45 Dose: 10 mg Rosuvastatin Calcium (Crestor) 10 mg PO HS [facility] Last Admin: 03/12/18 21:25 Dose: 10 mg Saccharomyces Boulardii (Florastor) 250 mg PO BID [facility] Last Admin: 03/13/18 10:43 Dose: 250 mg Sitagliptin Phosphate (Januvia) 25 mg PO DAILY [facility] Last Admin: 03/13/18 10:44 Dose: 25 mg - Labs Labs: 03/13/18 06:36 03/13/18 06:36 PT 15.7 SECONDS (9.7-12.2) H 03/06/18 07:17 INR 1.4 03/06/18 07:17 - Constitutional Appears: Well, No Acute Distress - Head Exam Head Exam: ATRAUMATIC, NORMOCEPHALIC - Eye Exam Eye Exam: EOMI, Normal appearance, PERRL Pupil Exam: NORMAL ACCOMODATION - ENT Exam ENT Exam: Mucous Membranes Moist, Normal Exam - Neck Exam Neck Exam: Normal Inspection - Respiratory Exam Respiratory Exam: Clear to Ausculation Bilateral, NORMAL BREATHING PATTERN. absent: Rales, Rhonchi, Wheezes, Respiratory Distress - Cardiovascular Exam Cardiovascular Exam: REGULAR RHYTHM, +S1, +S2. absent: Gallop, Rubs, Murmur - GI/Abdominal Exam GI & Abdominal Exam: Soft, Normal Bowel Sounds. absent: Distended, Firm, Tenderness - Extremities Exam Extremities Exam: Normal Inspection. absent: Pedal Edema - Neurological Exam Neurological Exam: Alert, Awake, Oriented x3 - Psychiatric Exam Psychiatric exam: Normal Affect, Normal Mood - Skin Skin Exam: Dry Assessment and Plan - Assessment and Plan (Free Text) Assessment: 82yo F with PMH HTN, DM, HLD, PVD, CKD, COPD, hypothyroid, anemia, nephrolithiasis, leukemia admitted for further evaluation and treatment of pneumonia and pleural effusion. Plan: Pneumonia: - pt afebrile - WBC 25.7 remains elevated - CXR 03/12: improvement of infiltrates, stable L sided pleural effusion - CXR 03/10: b/l infiltrates, improved on the R. L sided pleural effusion remains - CT Chest 03/05: CHF vascular pattern, dilated pulmonary artery 3.6cm, consider pulmonary arterial hypertension. mild b/l pleural effusions with atelectasis at b/l lower lobes. underlying pneumonia not excluded. 3mm right apical nonclacified nodule f/u 12 months - Strept pneumo, influenza, urine legionella, m.pneumonia negative - BCx negative final - sputum Cx: normal oral rossi - continue azithromycin 1gm IV daily (day 10) - continue zosyn 2.25 IV q8h (day 9) - continue Florastor 250mg PO BID - duonebs 3ML INH Q4H PRN - acetylcysteine 20% 4ml INH q4h MAINOR - mucinex 600 mg BID - bipap FiO2 40% - CPT - Pulm consulted, Dr. Trevino Plueral Effusion: - US: mod to large L pleural effusion: 9. 4 x 6 x 11.8cm - CXR 03/12: improvement of infiltrates, stable L sided pleural effusion - CXR 03/10: b/l infiltrates, improved on the R. L sided pleural effusion remains - CT Chest 03/05: CHF vascular pattern, dilated pulmonary artery 3.6cm, consider pulmonary arterial hypertension. mild b/l pleural effusions with atelectasis at b/l lower lobes. underlying pneumonia not excluded. 3mm right apical noncla cified nodule f/u 12 months - BNP 03/05: 4110 - decrease lasix to 40mg IV daily - d/c metolazone - d/c bipap - NC 3L - CPT - IR consulted, Von: no thoracentesis at this time Heart failure with normal ejection fraction - BNP 03/06: 4110 - ECHO: EF 60-65%, mild , mild TR, mild pulm HTN - CT Chest 03/05: CHF vascular pattern, dilated pulmonary artery 3.6cm, consider pulmonary arterial hypertension. mild b/l pleural effusions with atelectasis at b/l lower lobes. underlying pneumonia not excluded. 3mm right apical nonclacified nodule f/u 12 months - pt scheduled to have stress test 03/[address] Enrique, [employer] - I/O: -1200ml - decrease lasix to 40mg IV daily - d/c metolazone Renal insufficiency - BUN/Cr: 64/3.6 - I/O: -1200ml - renal US: chronic parenchymal disease, no acute findings - protein excretion rate elevated at 274.5 - continue phoslo 667mg PO TID - Nephro consulted, Dr. 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 Avel Enrique - f/u recs Hypothyroidism - TSH 4.99 - continue synthroid 100mcg PO QD Dyslipidemia - T, Chol:124, LDL: 49 and HDL: 38 - continue Crestor 10mg PO HS HTN - Continue home medications: HCTZ 12.5MG PO daily Norvasc 10mg PO daily Toprol XL 25mg PO daily COPD - duonebs 3ML INH Q4H PRN - acetylcysteine 20% 4ml INH q4h MAINOR - mucinex 600 mg BID - bipap FiO2 40% for nighttime - NC 3L for daytime - CPT Peripheral vascular disease - History of stent placement - continue Effient 10mg PO daily, hold if worsening thrombocytopenia Type II DM - HbA1C (09/30/17): 8.3 - Heart healthy diet with low carbohydrate consistency - Accuchecks - Januvia 25mg daily - ISS low dose - Hypoglycemia protocol PPX: DVT: SCDs, effient 10mg PO daily GI: Not indicated PT/OT: recommend [facility] Dispo: Pt does not want to go to [facility] Patient seen and plan discussed with Dr. Reyes <Reji Reyes - Last Filed: 03/13/18 17:00> Objective - Vital Signs/Intake and Output Vital Signs (last 24 hours): Temp Pulse Resp BP Pulse Ox 98.3 F 86 20 140/60 95 03/13/18 16:02 03/13/18 16:02 03/13/18 16:02 03/13/18 16:02 03/13/18 16:02 Intake and Output: 03/13/18 03/13/18 06:59 18:59 Output Total 800 1200 Balance -800 -1200 - Medications Medications: Current Medications Acetylcysteine (Acetylcysteine 20%) 4 ml INH Q4 [facility] Last Admin: 03/13/18 16:31 Dose: 4 ml Albuterol/Ipratropium (Duoneb 3 Mg/0.5 Mg (3 Ml) Ud) 3 ml INH RQ4 PRN PRN Reason: Shortness of Breath Last Admin: 03/13/18 16:31 Dose: 3 ml Amlodipine Besylate (Norvasc) 10 mg PO DAILY [facility] Last Admin: 03/13/18 10:44 Dose: 10 mg Calcium Acetate (Phoslo) 667 mg PO TID [facility] Last Admin: 03/13/18 13:51 Dose: 667 mg Dextrose (Dextrose 50% Inj) 0 ml IV STAT PRN; Protocol PRN Reason: Hypoglycemia Protocol Dextrose (Glutose 15) 0 gm PO ONCE PRN; Protocol PRN Reason: Hypoglycemia Protocol Furosemide (Lasix) 40 mg IVP DAILY [facility] Glucagon (Glucagen Diagnostic Kit) 0 mg IM STAT PRN; Protocol PRN Reason: Hypoglycemia Protocol Guaifenesin (Mucinex La) 600 mg PO BID [facility] Last Admin: 03/13/18 10:43 Dose: 600 mg Piperacillin Sod/Tazobactam (Sod 2.25 gm/ Sodium Chloride) 100 mls @ 200 mls/hr IVPB Q6H [facility]; Protocol Last Admin: 03/13/18 12:41 Dose: 200 mls/hr Azithromycin (Zithromax 500mg In Ns Addvantage) 500 mg in 250 mls @ 167 mls/hr IVPB Q24H [facility]; Protocol Last Admin: 03/13/18 11:29 Dose: 167 mls/hr Insulin Aspart (Novolog) 0 unit SC ACHS [facility]; Protocol Last Admin: 03/13/18 12:40 Dose: 2 unit Levothyroxine Sodium (Synthroid) 100 mcg PO DAILY@0630 [facility] Last Admin: 03/13/18 05:30 Dose: 100 mcg Metoprolol Succinate (Toprol Xl) 25 mg PO DAILY [facility] Last Admin: 03/13/18 10:44 Dose: 25 mg Potassium Chloride (Potassium Chloride Oral Soln) 40 meq PO DAILY [facility] Last Admin: 03/13/18 10:45 Dose: 40 meq Prasugrel (Effient) 10 mg PO DAILY [facility] Last Admin: 03/13/18 10:45 Dose: 10 mg Rosuvastatin Calcium (Crestor) 10 mg PO HS [facility] Last Admin: 03/12/18 21:25 Dose: 10 mg Saccharomyces Boulardii (Florastor) 250 mg PO BID [facility] Last Admin: 03/13/18 10:43 Dose: 250 mg Sitagliptin Phosphate (Januvia) 25 mg PO DAILY [facility] Last Admin: 03/13/18 10:44 Dose: 25 mg - Labs Labs: 03/13/18 06:36 03/13/18 06:36 PT 15.7 SECONDS (9.7-12.2) H 03/06/18 07:17 INR 1.4 03/06/18 07:17 Attending/Attestation - Attestation I have personally seen and examined this patient.: Yes I have fully participated in the care of the patient.: Yes I have reviewed all pertinent clinical information, including history, physical exam and plan: Yes Notes (Text): 03/13/18 16:59 Medical attending: Patient was seen and examined by me this morning with the medical residents. The patient was sitting up out of bed. She looked well on gross appearance. Today will try the patient on nasal cannula at night time. She remains on the Lasix BID and she tells us this has helped signifigantly with the edema and the breathing Possible discharge soon, per the patient and family member they feel that they would rather the patient go home then to [facility]. Reji Reyes
--- NOTE | 2018-03-13 15:56 | CP.PCM.PN ---
Subjective - Date & Time of Evaluation Date of Evaluation: 03/13/18 Time of Evaluation: 15:52 - Subjective Subjective: Patient is seen and examined Sitting comfortably in chair in NAD Objective - Vital Signs/Intake and Output Vital Signs (last 24 hours): Temp Pulse Resp BP Pulse Ox 98.1 F 86 18 144/64 94 L 03/13/18 07:00 03/13/18 07:00 03/13/18 07:00 03/13/18 10:44 03/13/18 07:00 Intake and Output: 03/13/18 03/13/18 06:59 18:59 Output Total 800 1200 Balance -800 -1200 - Medications Medications: Current Medications Acetylcysteine (Acetylcysteine 20%) 4 ml INH Q4 [facility] Last Admin: 03/13/18 11:37 Dose: 4 ml Albuterol/Ipratropium (Duoneb 3 Mg/0.5 Mg (3 Ml) Ud) 3 ml INH RQ4 PRN PRN Reason: Shortness of Breath Last Admin: 03/13/18 11:37 Dose: 3 ml Amlodipine Besylate (Norvasc) 10 mg PO DAILY [facility] Last Admin: 03/13/18 10:44 Dose: 10 mg Calcium Acetate (Phoslo) 667 mg PO TID [facility] Last Admin: 03/13/18 13:51 Dose: 667 mg Dextrose (Dextrose 50% Inj) 0 ml IV STAT PRN; Protocol PRN Reason: Hypoglycemia Protocol Dextrose (Glutose 15) 0 gm PO ONCE PRN; Protocol PRN Reason: Hypoglycemia Protocol Furosemide (Lasix) 40 mg IVP DAILY [facility] Glucagon (Glucagen Diagnostic Kit) 0 mg IM STAT PRN; Protocol PRN Reason: Hypoglycemia Protocol Guaifenesin (Mucinex La) 600 mg PO BID [facility] Last Admin: 03/13/18 10:43 Dose: 600 mg Piperacillin Sod/Tazobactam (Sod 2.25 gm/ Sodium Chloride) 100 mls @ 200 mls/hr IVPB Q6H [facility]; Protocol Last Admin: 03/13/18 12:41 Dose: 200 mls/hr Azithromycin (Zithromax 500mg In Ns Addvantage) 500 mg in 250 mls @ 167 mls/hr IVPB Q24H [facility]; Protocol Last Admin: 03/13/18 11:29 Dose: 167 mls/hr Insulin Aspart (Novolog) 0 unit SC ACHS [facility]; Protocol Last Admin: 03/13/18 12:40 Dose: 2 unit Levothyroxine Sodium (Synthroid) 100 mcg PO DAILY@0630 [facility] Last Admin: 03/13/18 05:30 Dose: 100 mcg Metoprolol Succinate (Toprol Xl) 25 mg PO DAILY [facility] Last Admin: 03/13/18 10:44 Dose: 25 mg Potassium Chloride (Potassium Chloride Oral Soln) 40 meq PO DAILY [facility] Last Admin: 03/13/18 10:45 Dose: 40 meq Prasugrel (Effient) 10 mg PO DAILY [facility] Last Admin: 03/13/18 10:45 Dose: 10 mg Rosuvastatin Calcium (Crestor) 10 mg PO HS [facility] Last Admin: 03/12/18 21:25 Dose: 10 mg Saccharomyces Boulardii (Florastor) 250 mg PO BID [facility] Last Admin: 03/13/18 10:43 Dose: 250 mg Sitagliptin Phosphate (Januvia) 25 mg PO DAILY [facility] Last Admin: 03/13/18 10:44 Dose: 25 mg - Labs Labs: 03/13/18 06:36 03/13/18 06:36 PT 15.7 SECONDS (9.7-12.2) H 03/06/18 07:17 INR 1.4 03/06/18 07:17 - Head Exam Head Exam: NORMAL INSPECTION - Eye Exam Eye Exam: Normal appearance - ENT Exam ENT Exam: Mucous Membranes Moist - Respiratory Exam Respiratory Exam: Decreased Breath Sounds - Cardiovascular Exam Cardiovascular Exam: REGULAR RHYTHM, +S1, +S2 - GI/Abdominal Exam GI & Abdominal Exam: Soft, Normal Bowel Sounds - Extremities Exam Extremities Exam: Normal Inspection Assessment and Plan (1) Obstructive sleep apnea Status: Acute (2) CKD (chronic kidney disease) stage 4, GFR 15-29 ml/min Status: Acute (3) Pleural effusion Status: Acute (4) Pneumonia Status: Acute (5) Type II diabetes mellitus Status: Acute (6) CHF (congestive heart failure) Status: Acute - Assessment and Plan (Free Text) Plan: BiPAP as needed Continue diuresis Bronchodilators Chest U/S reviewed which shows pleural effusion (Awaiting official reading) Patient has good pocket of pleural fluid seen on U/S. She should benefit from thoracentesis. DVT/GI prophylax
[2018-03-14] MEDS: Acetylcysteine 20% Inhal Soln (4ml) INH SCH ×5 (03:15→19:24)
[2018-03-14] MEDS: Levothyroxine 100 MCG TAB PO SCH (05:51)
[2018-03-14] MEDS: Piperacillin/Tazobact 2.25 GM in Sodium Chloride 100 ML IVPB SCH ×4 (05:51→23:58)
--- NOTE | 2018-03-14 07:30 | CP.PCM.PN ---
<Cherrie Carrasco - Last Filed: 03/14/18 16:56> Subjective - Date & Time of Evaluation Date of Evaluation: 03/14/18 Time of Evaluation: 07:28 - Subjective Subjective: Cherrie Carrasco PGY1 Progress note for Dr. Reyes Pt was examined at bedside this morning. She reports improvement in her shortness of breath, and only complains of mild chest tightness. She reports continuation of her clear phlegm. She claims to be able to ambulate without difficulty, but reports some shortness of breath when getting up from her chair. Pt also complains of L elbow pain that began two days ago. Pt denies headache, dizziness, chest pain, abdominal pain, nausea, vomiting, diarrhea. Objective - Vital Signs/Intake and Output Vital Signs (last 24 hours): Temp Pulse Resp BP Pulse Ox 98.5 F 87 20 132/55 L 96 03/13/18 23:05 03/13/18 23:52 03/13/18 23:05 03/13/18 23:05 03/13/18 23:05 Intake and Output: 03/14/18 03/14/18 06:59 18:59 Output Total 700 Balance -700 - Medications Medications: Current Medications Acetylcysteine (Acetylcysteine 20%) 4 ml INH Q4 [facility] Last Admin: 03/14/18 03:15 Dose: Not Given Albuterol/Ipratropium (Duoneb 3 Mg/0.5 Mg (3 Ml) Ud) 3 ml INH RQ4 PRN PRN Reason: Shortness of Breath Last Admin: 03/13/18 19:43 Dose: 3 ml Amlodipine Besylate (Norvasc) 10 mg PO DAILY [facility] Last Admin: 03/13/18 10:44 Dose: 10 mg Calcium Acetate (Phoslo) 667 mg PO TID [facility] Last Admin: 03/13/18 18:37 Dose: 667 mg Dextrose (Dextrose 50% Inj) 0 ml IV STAT PRN; Protocol PRN Reason: Hypoglycemia Protocol Dextrose (Glutose 15) 0 gm PO ONCE PRN; Protocol PRN Reason: Hypoglycemia Protocol Furosemide (Lasix) 40 mg IVP DAILY [facility] Glucagon (Glucagen Diagnostic Kit) 0 mg IM STAT PRN; Protocol PRN Reason: Hypoglycemia Protocol Guaifenesin (Mucinex La) 600 mg PO BID [facility] Last Admin: 03/13/18 18:38 Dose: 600 mg Piperacillin Sod/Tazobactam (Sod 2.25 gm/ Sodium Chloride) 100 mls @ 200 mls/hr IVPB Q6H [facility]; Protocol Last Admin: 03/14/18 05:51 Dose: 200 mls/hr Azithromycin (Zithromax 500mg In Ns Addvantage) 500 mg in 250 mls @ 167 mls/hr IVPB Q24H [facility]; Protocol Last Admin: 03/13/18 11:29 Dose: 167 mls/hr Insulin Aspart (Novolog) 0 unit SC ACHS [facility]; Protocol Last Admin: 03/13/18 22:12 Dose: Not Given Levothyroxine Sodium (Synthroid) 100 mcg PO DAILY@0630 [facility] Last Admin: 03/14/18 05:51 Dose: 100 mcg Metoprolol Succinate (Toprol Xl) 25 mg PO DAILY [facility] Last Admin: 03/13/18 10:44 Dose: 25 mg Potassium Chloride (Potassium Chloride Oral Soln) 40 meq PO DAILY [facility] Last Admin: 03/13/18 10:45 Dose: 40 meq Prasugrel (Effient) 10 mg PO DAILY [facility] Last Admin: 03/13/18 10:45 Dose: 10 mg Rosuvastatin Calcium (Crestor) 10 mg PO HS [facility] Last Admin: 03/13/18 22:13 Dose: 10 mg Saccharomyces Boulardii (Florastor) 250 mg PO BID [facility] Last Admin: 03/13/18 18:37 Dose: 250 mg Sitagliptin Phosphate (Januvia) 25 mg PO DAILY [facility] Last Admin: 03/13/18 10:44 Dose: 25 mg - Labs Labs: 03/13/18 06:36 03/13/18 06:36 PT 15.7 SECONDS (9.7-12.2) H 03/06/18 07:17 INR 1.4 03/06/18 07:17 - Constitutional Appears: Well, No Acute Distress - Head Exam Head Exam: ATRAUMATIC, NORMOCEPHALIC - Eye Exam Eye Exam: EOMI, Normal appearance, PERRL Pupil Exam: NORMAL ACCOMODATION - ENT Exam ENT Exam: Mucous Membranes Moist, Normal Exam - Neck Exam Neck Exam: Normal Inspection - Respiratory Exam Respiratory Exam: Clear to Ausculation Bilateral, NORMAL BREATHING PATTERN. absent: Rales, Rhonchi, Wheezes, Respiratory Distress, Stridor - Cardiovascular Exam Cardiovascular Exam: REGULAR RHYTHM, +S1, +S2. absent: Gallop, Rubs, Murmur - GI/Abdominal Exam GI & Abdominal Exam: Soft, Normal Bowel Sounds. absent: Distended, Tenderness - Extremities Exam Extremities Exam: absent: Pedal Edema - Back Exam Back Exam: NORMAL INSPECTION - Neurological Exam Neurological Exam: Alert, Altered, Oriented x3 - Psychiatric Exam Psychiatric exam: Normal Affect, Normal Mood - Skin Skin Exam: Dry, Normal Color. absent: Cyanosis Assessment and Plan - Assessment and Plan (Free Text) Assessment: 82yo F with PMH HTN, DM, HLD, PVD, CKD, COPD, hypothyroid, anemia, nephrolithiasis, leukemia admitted for further evaluation and treatment of pneumonia and pleural effusion. Plan: Pneumonia: - pt afebrile - CXR 03/12: improvement of infiltrates, stable L sided pleural effusion - CXR 03/10: b/l infiltrates, improved on the R. L sided pleural effusion remains - CT Chest 03/05: CHF vascular pattern, dilated pulmonary artery 3.6cm, consider pulmonary arterial hypertension. mild b/l pleural effusions with atelectasis at b/l lower lobes. underlying pneumonia not excluded. 3mm right apical nonclacified nodule f/u 12 months - Strept pneumo, influenza, urine legionella, m.pneumonia negative - BCx negative final - sputum Cx: normal oral rossi - d/c azithromycin - continue zosyn 2.25 IV q8h (day 10) - continue Florastor 250mg PO BID - duonebs 3ML INH Q4H PRN - acetylcysteine 20% 4ml INH q4h [facility] - mucinex 600 mg BID - NC @3L - CPT - f/u CXR tomorrow AM - Pulm consulted, Dr. Trevino Plueral Effusion: - s/p thoracentesis 350cc jen color fluid drained - US: mod to large L pleural effusion: 9. 4 x 6 x 11.8cm - CXR 03/12: improvement of infiltrates, stable L sided pleural effusion - CXR 03/10: b/l infiltrates, improved on the R. L sided pleural effusion remains - CT Chest 03/05: CHF vascular pattern, dilated pulmonary artery 3.6cm, consider pulmonary arterial hypertension. mild b/l pleural effusions with atelectasis at b/l lower lobes. underlying pneumonia not excluded. 3mm right apical nonclacified nodule f/u 12 months - BNP 03/05: 4110 - continue lasix to 40mg IV daily - NC 3L - CPT - f/u CXR tomorrow AM - IR consulted, Von Heart failure with normal ejection fraction - BNP 03/06: 4110 - ECHO: EF 60-65%, mild , mild TR, mild pulm HTN - CT Chest 03/05: CHF vascular pattern, dilated pulmonary artery 3.6cm, consider pulmonary arterial hypertension. mild b/l pleural effusions with atelectasis at b/l lower lobes. underlying pneumonia not excluded. 3mm right apical nonclacifi ed nodule f/u 12 months - pt scheduled to have stress test 03/[address] 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 Avel Enrique - f/u recs L elbow pain - pain in L elbow, started 2 days ago - Xray L elbow: joint effusion, no fracture Hypothyroidism - TSH 4.99 - continue synthroid 100mcg PO QD Dyslipidemia - T, Chol:124, LDL: 49 and HDL: 38 - continue Crestor 10mg PO HS HTN - Continue home medications: HCTZ 12.5MG PO daily Norvasc 10mg PO daily Toprol XL 25mg PO daily COPD - duonebs 3ML INH Q4H PRN - acetylcysteine 20% 4ml INH q4h [facility] - mucinex 600 mg BID - bipap FiO2 40% for nighttime - NC 3L - CPT Peripheral vascular disease - History of stent placement - continue Effient 10mg PO daily, hold if worsening thrombocytopenia Type II DM - HbA1C (09/30/17): 8.3 - Heart healthy diet with low carbohydrate consistency - Accuchecks - Januvia 25mg daily - ISS low dose - Hypoglycemia protocol PPX: DVT: SCDs, effient 10mg PO daily GI: Not indicated PT/OT: recommend [facility] Dispo: Pt does not want to go to [facility] Patient seen and plan discussed with Dr. Reyes <Reji Reyes H - Last Filed: 03/14/18 18:17> Objective - Vital Signs/Intake and Output Vital Signs (last 24 hours): Temp Pulse Resp BP Pulse Ox 98.0 F 83 20 151/61 H 95 03/14/18 15:00 03/14/18 15:00 03/14/18 15:00 03/14/18 15:00 03/14/18 15:00 Intake and Output: 03/14/18 03/14/18 06:59 18:59 Output Total 700 600 Balance -700 -600 - Medications Medications: Current Medications Acetylcysteine (Acetylcysteine 20%) 4 ml INH Q4 [facility] Last Admin: 03/14/18 15:37 Dose: 4 ml Albuterol/Ipratropium (Duoneb 3 Mg/0.5 Mg (3 Ml) Ud) 3 ml INH RQ4 PRN PRN Reason: Shortness of Breath Last Admin: 03/14/18 15:37 Dose: 3 ml Amlodipine Besylate (Norvasc) 10 mg PO DAILY [facility] Last Admin: 03/14/18 09:29 Dose: 10 mg Calcium Acetate (Phoslo) 667 mg PO TID [facility] Last Admin: 03/14/18 17:59 Dose: 667 mg Dextrose (Dextrose 50% Inj) 0 ml IV STAT PRN; Protocol PRN Reason: Hypoglycemia Protocol Dextrose (Glutose 15) 0 gm PO ONCE PRN; Protocol PRN Reason: Hypoglycemia Protocol Furosemide (Lasix) 40 mg IVP DAILY [facility] Last Admin: 03/14/18 11:06 Dose: 40 mg Glucagon (Glucagen Diagnostic Kit) 0 mg IM STAT PRN; Protocol PRN Reason: Hypoglycemia Protocol Guaifenesin (Mucinex La) 600 mg PO BID [facility] Last Admin: 03/14/18 17:59 Dose: 600 mg Piperacillin Sod/Tazobactam (Sod 2.25 gm/ Sodium Chloride) 100 mls @ 200 mls/hr IVPB Q6H [facility]; Protocol Last Admin: 03/14/18 18:08 Dose: 200 mls/hr Insulin Aspart (Novolog) 0 unit SC ACHS [facility]; Protocol Last Admin: 03/14/18 17:30 Dose: 2 unit Levothyroxine Sodium (Synthroid) 100 mcg PO DAILY@0630 [facility] Last Admin: 03/14/18 05:51 Dose: 100 mcg Metoprolol Succinate (Toprol Xl) 25 mg PO DAILY [facility] Last Admin: 03/14/18 09:31 Dose: 25 mg Potassium Chloride (Potassium Chloride Oral Soln) 40 meq PO DAILY [facility] Last Admin: 03/14/18 09:30 Dose: 40 meq Prasugrel (Effient) 10 mg PO DAILY [facility] Last Admin: 03/14/18 09:28 Dose: 10 mg Rosuvastatin Calcium (Crestor) 10 mg PO HS [facility] Last Admin: 03/13/18 22:13 Dose: 10 mg Saccharomyces Boulardii (Florastor) 250 mg PO BID [facility] Last Admin: 03/14/18 17:59 Dose: 250 mg Sitagliptin Phosphate (Januvia) 25 mg PO DAILY [facility] Last Admin: 03/14/18 09:28 Dose: 25 mg - Labs Labs: 03/14/18 07:09 03/13/18 06:36 PT 15.7 SECONDS (9.7-12.2) H 03/06/18 07:17 INR 1.4 03/06/18 07:17 Attending/Attestation - Attestation I have personally seen and examined this patient.: Yes I have fully participated in the care of the patient.: Yes I have reviewed all pertinent clinical information, including history, physical exam and plan: Yes Notes (Text): 03/14/18 18:15 Medical attending: Patient was seen and examined by me with the medical support assistant. Agree with the above note by the resident The patient was not in any acute distress this morning. Later in the day she had thoracentesis and 350 cc was removed from the area. As mentioned previously patient does have hsitory of leukemia. WBC remains eleva troy. She does not have a temperature She no longer is on Bipap at night - she slept with the nasal cannula. As mentioned previously the patient does not want to go to any EDER when she is discharged Reji Reyes
[2018-03-14 07:41] LABS: BASO # 0.1 K/uL (0.0-0.2); BASO % 0.4 % (0.0-2.0); EOS # 0.1 K/uL (0.0-0.7); EOS % 0.5 % (0.0-4.0); HEMOGLOBIN 9.2 g/dL (11.0-16.0); LYMPH # 2.2 K/uL (1.0-4.3); LYMPH % 8.5 % (20.0-40.0); MEAN CORPUSCULAR HEMOGLOBIN 29.1 pg (27.0-31.0); MEAN CORPUSCULAR HGB CONC 32.4 g/dL (33.0-37.0); MEAN PLATELET VOLUME 10.5 fL (7.2-11.7); MONO # 6.9 K/uL (0.0-0.8); MONO % 26.7 % (0.0-10.0); NEUT # 16.4 K/uL (1.8-7.0); NEUT % 63.9 % (50.0-75.0); NRBC % 0.2 % (0.0-2.0); PLATELET COUNT 129 K/uL (130-400); RBC 3.16 Mil/uL (3.80-5.20); RED CELL DISTRIBUTION WIDTH 15.9 % (11.5-14.5); WHITE BLOOD COUNT 25.7 K/uL (4.8-10.8)
[2018-03-14] MEDS: Albuterol-Ipratrop 3 mg / 0.5 (3 ml) UD INH PRN ×3 (08:04→19:24)
[2018-03-14 09:20] LABS: BANDS 2 % (0-2); LYMPHOCYTE 15 % (20-40); MONOCYTE 20 % (0-10); MYELOCYTE 1 % (0-0); NEUTROPHIL 62 % (50-75); TOTAL CELLS COUNTED 100
[2018-03-14 09:21] LABS: ANISOCYTOSIS SLIGHT; HYPOCHROMIC SLIGHT; PLATELET ESTIMATE SLIGHTLY DECREASED (NORMAL); POIKILOCYTOSIS SLIGHT
[2018-03-14] MEDS: Saccharomyces Boulardi 250 mg Cap PO SCH ×2 (09:29→17:59)
[2018-03-14] MEDS: guaiFENesin 600 mg ER Tab PO SCH ×2 (09:29→17:59)
[2018-03-14] MEDS: Potassium Chloride 20 mEq/15 ml LIQ UD PO SCH (09:30)
[2018-03-14] MEDS: Metoprolol Succinate 25 mg XL Tab PO SCH (09:31)
[2018-03-14] MEDS: (Novolog) Insulin Aspart, Recombinant 100 u/ml 10 ml vial SC SCH ×4 (11:03→22:02)
[2018-03-14] MEDS: Azithromycin 500mg/250ML NS 500 MG/250 ML BAG IVPB SCH (11:05)
--- NOTE | 2018-03-14 12:09 | PCM.SURG1 ---
Surgeon's Initial Post Op Note - Surgeon's Notes Surgeon: Bon Longoria MD Water Taxi Driver: NONE Type of Anesthesia: Local Pre-Operative Diagnosis: Left pleural effusion Operative Findings: US showed a small left effusion Post-Operative Diagnosis: Left pleural effusion Operation Performed: US guided left thoracentesis Specimen/Specimens Removed: 350 cc of jen color fluid Estimated Blood Loss: EBL {In ML}: 0 Blood Products Given: N/A Drains Used: No Drains Post-Op Condition: Fair Date of Surgery/Procedure: 03/14/18 Time of Surgery/Procedure: 11:20
--- NOTE | 2018-03-14 13:41 | CP.PCM.PN ---
Subjective - Date & Time of Evaluation Date of Evaluation: 03/14/18 Time of Evaluation: 13:38 - Subjective Subjective: s/p thoracentesis- 350ml fluid drained Less dyspneic CXR still with CHF, but improved diuretic dose decreased due to increased azotemia Objective - Vital Signs/Intake and Output Vital Signs (last 24 hours): Temp Pulse Resp BP Pulse Ox 97.7 F 88 18 158/61 H 96 03/14/18 07:15 03/14/18 07:15 03/14/18 07:15 03/14/18 11:06 03/14/18 07:15 Intake and Output: 03/14/18 03/14/18 06:59 18:59 Output Total 700 Balance -700 - Medications Medications: Current Medications Acetylcysteine (Acetylcysteine 20%) 4 ml INH Q4 [facility] Last Admin: 03/14/18 11:22 Dose: Not Given Albuterol/Ipratropium (Duoneb 3 Mg/0.5 Mg (3 Ml) Ud) 3 ml INH RQ4 PRN PRN Reason: Shortness of Breath Last Admin: 03/14/18 08:04 Dose: 3 ml Amlodipine Besylate (Norvasc) 10 mg PO DAILY [facility] Last Admin: 03/14/18 09:29 Dose: 10 mg Calcium Acetate (Phoslo) 667 mg PO TID [facility] Last Admin: 03/14/18 13:19 Dose: 667 mg Dextrose (Dextrose 50% Inj) 0 ml IV STAT PRN; Protocol PRN Reason: Hypoglycemia Protocol Dextrose (Glutose 15) 0 gm PO ONCE PRN; Protocol PRN Reason: Hypoglycemia Protocol Furosemide (Lasix) 40 mg IVP DAILY [facility] Last Admin: 03/14/18 11:06 Dose: 40 mg Glucagon (Glucagen Diagnostic Kit) 0 mg IM STAT PRN; Protocol PRN Reason: Hypoglycemia Protocol Guaifenesin (Mucinex La) 600 mg PO BID [facility] Last Admin: 03/14/18 09:29 Dose: 600 mg Piperacillin Sod/Tazobactam (Sod 2.25 gm/ Sodium Chloride) 100 mls @ 200 mls/hr IVPB Q6H [facility]; Protocol Last Admin: 03/14/18 12:17 Dose: 200 mls/hr Insulin Aspart (Novolog) 0 unit SC ACHS [facility]; Protocol Last Admin: 03/14/18 13:19 Dose: 3 unit Levothyroxine Sodium (Synthroid) 100 mcg PO DAILY@0630 [facility] Last Admin: 03/14/18 05:51 Dose: 100 mcg Metoprolol Succinate (Toprol Xl) 25 mg PO DAILY [facility] Last Admin: 03/14/18 09:31 Dose: 25 mg Potassium Chloride (Potassium Chloride Oral Soln) 40 meq PO DAILY [facility] Last Admin: 03/14/18 09:30 Dose: 40 meq Prasugrel (Effient) 10 mg PO DAILY [facility] Last Admin: 03/14/18 09:28 Dose: 10 mg Rosuvastatin Calcium (Crestor) 10 mg PO HS [facility] Last Admin: 03/13/18 22:13 Dose: 10 mg Saccharomyces Boulardii (Florastor) 250 mg PO BID [facility] Last Admin: 03/14/18 09:29 Dose: 250 mg Sitagliptin Phosphate (Januvia) 25 mg PO DAILY [facility] Last Admin: 03/14/18 09:28 Dose: 25 mg - Labs Labs: 03/14/18 07:09 03/13/18 06:36 PT 15.7 SECONDS (9.7-12.2) H 03/06/18 07:17 INR 1.4 03/06/18 07:17 - Constitutional Appears: No Acute Distress, Chronically Ill - Head Exam Head Exam: ATRAUMATIC, NORMAL INSPECTION - Eye Exam Eye Exam: EOMI, Normal appearance - Neck Exam Neck Exam: Normal Inspection. absent: Tenderness - Respiratory Exam Respiratory Exam: Rhonchi, NORMAL BREATHING PATTERN - Cardiovascular Exam Cardiovascular Exam: REGULAR RHYTHM, +S1 - GI/Abdominal Exam GI & Abdominal Exam: Soft. absent: Tenderness - Extremities Exam Extremities Exam: Normal Inspection. absent: Tenderness - Neurological Exam Neurological Exam: Awake, CN II-XII Intact - Skin Skin Exam: Dry, Warm Assessment and Plan (1) CKD (chronic kidney disease) stage 4, GFR 15-29 ml/min Status: Acute (2) Hypothyroidism Status: Acute (3) CHF (congestive heart failure) Status: Acute (4) Hypothyroidism Status: Acute - Assessment and Plan (Free Text) Plan: Repeat chemistries Soon change to po lasix Recommended AV access to daughter- considering it
--- NOTE | 2018-03-14 13:53 | US ---
PROCEDURE: Date of procedure: 03/14/2018 Procedure: 1. Ultrasound-guided left thoracentesis, CPT 95284 Medications: 5cc 1% Lidocaine HISTORY: Left pleural effusion TECHNIQUE: Following informed consent ,the Patients' left chest was marked. Procedure time-out was called, and the patient was placed in the sitting position and limited ultrasound showed a large small effusion. The patient's left back was prepped and draped in the usual sterile fashion. After the skin was anesthetized with lidocaine, a drainage catheter was advanced under ultrasound guidance into the pleural space. Ultrasound-guided thoracentesis was performed. A total of 350 cubic centimeters of jen-colored fluid removed without complication. A Xeroform dressing was applied. IMPRESSION: Ultrasound guided left thoracentesis. There were no immediate complications.
--- NOTE | 2018-03-14 14:14 | RAD ---
Date of service: 03/14/2018 PROCEDURE: Radiographs of the left elbow. HISTORY: L elbow pain COMPARISON: No prior. FINDINGS: BONES: Bone alignment and mineralization are normal. There is no acute displaced fracture or bone destruction. JOINTS: Normal. No osteoarthritis. SOFT TISSUES: Normal. JOINT EFFUSION: There is a moderate joint effusion. OTHER FINDINGS: There atherosclerotic vascular calcifications. IMPRESSION: Moderate joint effusion. No acute displaced fracture or dislocation
--- NOTE | 2018-03-14 16:15 | CP.PCM.PN ---
Subjective - Date & Time of Evaluation Date of Evaluation: 03/14/18 Time of Evaluation: 16:13 - Subjective Subjective: Patient is seen and examined S/P thoracentesis with removal of 350 ml fluid Objective - Vital Signs/Intake and Output Vital Signs (last 24 hours): Temp Pulse Resp BP Pulse Ox 98.0 F 83 20 151/61 H 95 03/14/18 15:00 03/14/18 15:00 03/14/18 15:00 03/14/18 15:00 03/14/18 15:00 Intake and Output: 03/14/18 03/14/18 06:59 18:59 Output Total 700 600 Balance -700 -600 - Medications Medications: Current Medications Acetylcysteine (Acetylcysteine 20%) 4 ml INH Q4 [facility] Last Admin: 03/14/18 15:37 Dose: 4 ml Albuterol/Ipratropium (Duoneb 3 Mg/0.5 Mg (3 Ml) Ud) 3 ml INH RQ4 PRN PRN Reason: Shortness of Breath Last Admin: 03/14/18 15:37 Dose: 3 ml Amlodipine Besylate (Norvasc) 10 mg PO DAILY [facility] Last Admin: 03/14/18 09:29 Dose: 10 mg Calcium Acetate (Phoslo) 667 mg PO TID [facility] Last Admin: 03/14/18 13:19 Dose: 667 mg Dextrose (Dextrose 50% Inj) 0 ml IV STAT PRN; Protocol PRN Reason: Hypoglycemia Protocol Dextrose (Glutose 15) 0 gm PO ONCE PRN; Protocol PRN Reason: Hypoglycemia Protocol Furosemide (Lasix) 40 mg IVP DAILY [facility] Last Admin: 03/14/18 11:06 Dose: 40 mg Glucagon (Glucagen Diagnostic Kit) 0 mg IM STAT PRN; Protocol PRN Reason: Hypoglycemia Protocol Guaifenesin (Mucinex La) 600 mg PO BID [facility] Last Admin: 03/14/18 09:29 Dose: 600 mg Piperacillin Sod/Tazobactam (Sod 2.25 gm/ Sodium Chloride) 100 mls @ 200 mls/hr IVPB Q6H [facility]; Protocol Last Admin: 03/14/18 12:17 Dose: 200 mls/hr Insulin Aspart (Novolog) 0 unit SC ACHS [facility]; Protocol Last Admin: 03/14/18 13:19 Dose: 3 unit Levothyroxine Sodium (Synthroid) 100 mcg PO DAILY@0630 [facility] Last Admin: 03/14/18 05:51 Dose: 100 mcg Metoprolol Succinate (Toprol Xl) 25 mg PO DAILY [facility] Last Admin: 03/14/18 09:31 Dose: 25 mg Potassium Chloride (Potassium Chloride Oral Soln) 40 meq PO DAILY [facility] Last Admin: 03/14/18 09:30 Dose: 40 meq Prasugrel (Effient) 10 mg PO DAILY [facility] Last Admin: 03/14/18 09:28 Dose: 10 mg Rosuvastatin Calcium (Crestor) 10 mg PO HS [facility] Last Admin: 03/13/18 22:13 Dose: 10 mg Saccharomyces Boulardii (Florastor) 250 mg PO BID [facility] Last Admin: 03/14/18 09:29 Dose: 250 mg Sitagliptin Phosphate (Januvia) 25 mg PO DAILY [facility] Last Admin: 03/14/18 09:28 Dose: 25 mg - Labs Labs: 03/14/18 07:09 03/13/18 06:36 PT 15.7 SECONDS (9.7-12.2) H 03/06/18 07:17 INR 1.4 03/06/18 07:17 - Head Exam Head Exam: NORMAL INSPECTION - Eye Exam Eye Exam: Normal appearance - ENT Exam ENT Exam: Mucous Membranes Moist - Respiratory Exam Respiratory Exam: Clear to Ausculation Bilateral - Cardiovascular Exam Cardiovascular Exam: REGULAR RHYTHM, +S1, +S2 - GI/Abdominal Exam GI & Abdominal Exam: Soft, Normal Bowel Sounds - Extremities Exam Extremities Exam: Normal Inspection - Neurological Exam Neurological Exam: Alert, Oriented x3 Assessment and Plan (1) Obstructive sleep apnea Status: Acute (2) CKD (chronic kidney disease) stage 4, GFR 15-29 ml/min Status: Acute (3) Pleural effusion Status: Acute (4) Pneumonia Status: Acute (5) Type II diabetes mellitus Status: Acute (6) CHF (congestive heart failure) Status: Acute - Assessment and Plan (Free Text) Plan: Continue O2 supplementation Follow Cr Diuresis Abx Guaifenesin PRN Repeat CXR in Am DVT/GI prophalaxis
[2018-03-15] MEDS: Acetylcysteine 20% Inhal Soln (4ml) INH SCH ×7 (00:30→23:54)
[2018-03-15] MEDS: Levothyroxine 100 MCG TAB PO SCH (05:31)
[2018-03-15] MEDS: Piperacillin/Tazobact 2.25 GM in Sodium Chloride 100 ML IVPB SCH (05:32)
[2018-03-15 07:17] LABS: BASO # 0.1 K/uL (0.0-0.2); BASO % 0.4 % (0.0-2.0); EOS # 0.2 K/uL (0.0-0.7); EOS % 0.7 % (0.0-4.0); HEMOGLOBIN 9.3 g/dL (11.0-16.0); LYMPH # 2.1 K/uL (1.0-4.3); LYMPH % 8.7 % (20.0-40.0); MEAN CELL VOLUME 91.7 fL (81.0-99.0); MEAN CORPUSCULAR HEMOGLOBIN 29.9 pg (27.0-31.0); MEAN CORPUSCULAR HGB CONC 32.6 g/dL (33.0-37.0); MEAN PLATELET VOLUME 10.2 fL (7.2-11.7); MONO # 5.9 K/uL (0.0-0.8); MONO % 24.9 % (0.0-10.0); NEUT # 15.5 K/uL (1.8-7.0); NEUT % 65.3 % (50.0-75.0); NRBC % 0.1 % (0.0-2.0); PLATELET COUNT 117 K/uL (130-400); RBC 3.11 Mil/uL (3.80-5.20); RED CELL DISTRIBUTION WIDTH 16.5 % (11.5-14.5); WHITE BLOOD COUNT 23.7 K/uL (4.8-10.8)
[2018-03-15] MEDS ORDERED: guaiFENesin DM 100 mg-10 mg/5 ml UD PO PRN (07:19)
[2018-03-15] MEDS: Albuterol-Ipratrop 3 mg / 0.5 (3 ml) UD INH PRN ×5 (07:47→23:53)
[2018-03-15 08:06] LABS: ALB/GLOB RATIO 0.8 (1.0-2.1); ALBUMIN 3.3 g/dL (3.5-5.0); CALCIUM 8.5 mg/dl (8.6-10.4)
[2018-03-15] MEDS: (Novolog) Insulin Aspart, Recombinant 100 u/ml 10 ml vial SC SCH ×4 (08:18→21:26)
[2018-03-15 08:41] LABS: BANDS 2 % (0-2); LYMPHOCYTE 8 % (20-40); METAMYELOCYTE 3 % (0-0); MONOCYTE 20 % (0-10); MYELOCYTE 4 % (0-0); NEUTROPHIL 61 % (50-75); REACTIVE LYMPHOCYTES 2 % (0-0); TOTAL CELLS COUNTED 100
[2018-03-15 08:42] LABS: ANISOCYTOSIS SLIGHT; LARGE PLATELETS PRESENT; PLATELET ESTIMATE SLIGHTLY DECREASED (NORMAL)
--- NOTE | 2018-03-15 09:25 | CP.PCM.PN ---
Subjective - Date & Time of Evaluation Date of Evaluation: 03/15/18 Time of Evaluation: 09:15 - Subjective Subjective: Feels better, not dyspneic Creat bdecreasing- 3.3 now UO adequate Objective - Vital Signs/Intake and Output Vital Signs (last 24 hours): Temp Pulse Resp BP Pulse Ox 98.1 F 83 20 141/56 L 96 03/15/18 07:00 03/15/18 07:00 03/15/18 07:00 03/15/18 07:00 03/15/18 07:00 Intake and Output: 03/15/18 03/15/18 06:59 18:59 Output Total 1200 Balance -1200 - Medications Medications: Current Medications Acetylcysteine (Acetylcysteine 20%) 4 ml INH Q4 [facility] Last Admin: 03/15/18 07:47 Dose: 4 ml Albuterol/Ipratropium (Duoneb 3 Mg/0.5 Mg (3 Ml) Ud) 3 ml INH RQ4 PRN PRN Reason: Shortness of Breath Last Admin: 03/15/18 07:47 Dose: 3 ml Amlodipine Besylate (Norvasc) 10 mg PO DAILY [facility] Last Admin: 03/14/18 09:29 Dose: 10 mg Calcium Acetate (Phoslo) 667 mg PO TID [facility] Last Admin: 03/14/18 17:59 Dose: 667 mg Dextrose (Dextrose 50% Inj) 0 ml IV STAT PRN; Protocol PRN Reason: Hypoglycemia Protocol Dextrose (Glutose 15) 0 gm PO ONCE PRN; Protocol PRN Reason: Hypoglycemia Protocol Furosemide (Lasix) 40 mg IVP DAILY [facility] Last Admin: 03/14/18 11:06 Dose: 40 mg Glucagon (Glucagen Diagnostic Kit) 0 mg IM STAT PRN; Protocol PRN Reason: Hypoglycemia Protocol Guaifenesin (Mucinex La) 600 mg PO BID [facility] Last Admin: 03/14/18 17:59 Dose: 600 mg Guaifenesin/Dextromethorphan (Robitussin Dm) 5 ml PO Q4H PRN PRN Reason: Cough Piperacillin Sod/Tazobactam (Sod 2.25 gm/ Sodium Chloride) 100 mls @ 200 mls/hr IVPB Q6H [facility]; Protocol Last Admin: 03/15/18 05:32 Dose: 200 mls/hr Insulin Aspart (Novolog) 0 unit SC ACHS [facility]; Protocol Last Admin: 03/15/18 08:18 Dose: 3 unit Levothyroxine Sodium (Synthroid) 100 mcg PO DAILY@0630 [facility] Last Admin: 03/15/18 05:31 Dose: 100 mcg Metoprolol Succinate (Toprol Xl) 25 mg PO DAILY [facility] Last Admin: 03/14/18 09:31 Dose: 25 mg Potassium Chloride (Potassium Chloride Oral Soln) 40 meq PO DAILY [facility] Last Admin: 03/14/18 09:30 Dose: 40 meq Prasugrel (Effient) 10 mg PO DAILY [facility] Last Admin: 03/14/18 09:28 Dose: 10 mg Rosuvastatin Calcium (Crestor) 10 mg PO HS [facility] Last Admin: 03/14/18 21:40 Dose: 10 mg Saccharomyces Boulardii (Florastor) 250 mg PO BID [facility] Last Admin: 03/14/18 17:59 Dose: 250 mg Sitagliptin Phosphate (Januvia) 25 mg PO DAILY [facility] Last Admin: 03/14/18 09:28 Dose: 25 mg - Labs Labs: 03/15/18 06:57 03/15/18 06:57 PT 15.7 SECONDS (9.7-12.2) H 03/06/18 07:17 INR 1.4 03/06/18 07:17 - Constitutional Appears: No Acute Distress, Chronically Ill - Head Exam Head Exam: ATRAUMATIC, NORMAL INSPECTION - Eye Exam Eye Exam: EOMI, Normal appearance - Neck Exam Neck Exam: Normal Inspection. absent: Tenderness - Respiratory Exam Respiratory Exam: Clear to Ausculation Bilateral, NORMAL BREATHING PATTERN - Cardiovascular Exam Cardiovascular Exam: REGULAR RHYTHM, +S1 - GI/Abdominal Exam GI & Abdominal Exam: Soft. absent: Tenderness - Extremities Exam Extremities Exam: Normal Inspection. absent: Tenderness - Neurological Exam Neurological Exam: Alert, CN II-XII Intact - Skin Skin Exam: Dry, Warm Assessment and Plan (1) CKD (chronic kidney disease) stage 4, GFR 15-29 ml/min Status: Acute (2) Hypothyroidism Status: Acute (3) CHF (congestive heart failure) Status: Acute (4) Hypothyroidism Status: Acute - Assessment and Plan (Free Text) Plan: change to po lasix follow up CXR, chemistries
[2018-03-15] MEDS: Saccharomyces Boulardi 250 mg Cap PO SCH ×2 (10:31→18:00)
[2018-03-15] MEDS: Potassium Chloride 20 mEq/15 ml LIQ UD PO SCH (10:31)
[2018-03-15] MEDS: Metoprolol Succinate 25 mg XL Tab PO SCH (10:31)
[2018-03-15] MEDS: guaiFENesin 600 mg ER Tab PO SCH ×2 (10:31→18:00)
--- NOTE | 2018-03-15 10:53 | RAD ---
Chest x-ray two views HISTORY: Thoracentesis. COMPARISON: 03/12/2018 FINDINGS: Large loculated left pleural effusion. Reticular opacities seen throughout both lungs. Airspace opacifications seen within the mid to lower lung zones bilaterally with dense consolidative changes noted within left lung. Biapical thickening with upper lobe granulomatous changes. Scattered nodular densities in both lungs. Atherosclerotic calcification at the aortic knob. Cardiomegaly. Degenerative changes in the spine and shoulders. Prominent compression deformities seen within the lower thoracic and upper lumbar spine some of which are severe with a suggestion of a burst configuration. Clinical correlation. Impression: Large loculated left pleural effusion. Reticular opacities seen throughout both lungs. Airspace opacifications seen within the mid to lower lung zones bilaterally with dense consolidative changes noted within left lung. Biapical thickening with upper lobe granulomatous changes. Scattered nodular densities in both lungs. Atherosclerotic calcification at the aortic knob. Cardiomegaly. Degenerative changes in the spine and shoulders. Prominent compression deformities seen within the lower thoracic and upper lumbar spine some of which are severe with a suggestion of a burst configuration. Clinical correlation.
--- NOTE | 2018-03-15 12:41 | CP.PCM.PN ---
<Cherrie Carrasco - Last Filed: 03/15/18 15:45> Subjective - Date & Time of Evaluation Date of Evaluation: 03/15/18 Time of Evaluation: 12:39 - Subjective Subjective: Cherrie Carrasco PGY1 Progress Note for Dr. Reyes Pt was examined at bedside this morning. She reported improvement of her shortness of breath and denies any further chest heaviness or tightness. Pt reports continuation of her cough with white/clear sputum, denies blood. Pt reports urinating without difficulty. She denies dizziness, chest pain, abdominal pain, nausea, vomiting, diarrhea. Objective - Vital Signs/Intake and Output Vital Signs (last 24 hours): Temp Pulse Resp BP Pulse Ox 98.1 F 83 20 156/63 H 96 03/15/18 07:00 03/15/18 07:00 03/15/18 07:00 03/15/18 10:30 03/15/18 07:00 Intake and Output: 03/15/18 03/15/18 06:59 18:59 Output Total 1200 Balance -1200 - Medications Medications: Current Medications Acetylcysteine (Acetylcysteine 20%) 4 ml INH Q4 [facility] Last Admin: 03/15/18 11:24 Dose: 4 ml Albuterol/Ipratropium (Duoneb 3 Mg/0.5 Mg (3 Ml) Ud) 3 ml INH RQ4 PRN PRN Reason: Shortness of Breath Last Admin: 03/15/18 11:24 Dose: 3 ml Amlodipine Besylate (Norvasc) 10 mg PO DAILY [facility] Last Admin: 03/15/18 10:31 Dose: 10 mg Calcium Acetate (Phoslo) 667 mg PO TID [facility] Last Admin: 03/15/18 10:31 Dose: 667 mg Dextrose (Dextrose 50% Inj) 0 ml IV STAT PRN; Protocol PRN Reason: Hypoglycemia Protocol Dextrose (Glutose 15) 0 gm PO ONCE PRN; Protocol PRN Reason: Hypoglycemia Protocol Furosemide (Lasix) 40 mg PO BID [facility] Last Admin: 03/15/18 10:30 Dose: 40 mg Glucagon (Glucagen Diagnostic Kit) 0 mg IM STAT PRN; Protocol PRN Reason: Hypoglycemia Protocol Guaifenesin (Mucinex La) 600 mg PO BID [facility] Last Admin: 03/15/18 10:31 Dose: 600 mg Guaifenesin/Dextromethorphan (Robitussin Dm) 5 ml PO Q4H PRN PRN Reason: Cough Insulin Aspart (Novolog) 0 unit SC ACHS [facility]; Protocol Last Admin: 03/15/18 08:18 Dose: 3 unit Levothyroxine Sodium (Synthroid) 100 mcg PO DAILY@0630 [facility] Last Admin: 03/15/18 05:31 Dose: 100 mcg Metoprolol Succinate (Toprol Xl) 25 mg PO DAILY [facility] Last Admin: 03/15/18 10:31 Dose: 25 mg Potassium Chloride (Potassium Chloride Oral Soln) 40 meq PO DAILY [facility] Last Admin: 03/15/18 10:31 Dose: 40 meq Prasugrel (Effient) 10 mg PO DAILY [facility] Last Admin: 03/14/18 09:28 Dose: 10 mg Rosuvastatin Calcium (Crestor) 10 mg PO HS [facility] Last Admin: 03/14/18 21:40 Dose: 10 mg Saccharomyces Boulardii (Florastor) 250 mg PO BID [facility] Last Admin: 03/15/18 10:31 Dose: 250 mg Sitagliptin Phosphate (Januvia) 25 mg PO DAILY [facility] Last Admin: 03/15/18 10:31 Dose: 25 mg - Labs Labs: 03/15/18 06:57 03/15/18 06:57 PT 15.7 SECONDS (9.7-12.2) H 03/06/18 07:17 INR 1.4 03/06/18 07:17 - Constitutional Appears: Well, No Acute Distress - Head Exam Head Exam: ATRAUMATIC, NORMOCEPHALIC - Eye Exam Eye Exam: EOMI, Normal appearance, PERRL Pupil Exam: NORMAL ACCOMODATION - ENT Exam ENT Exam: Mucous Membranes Moist - Neck Exam Neck Exam: Normal Inspection - Respiratory Exam Respiratory Exam: Clear to Ausculation Bilateral, NORMAL BREATHING PATTERN. absent: Decreased Breath Sounds, Rales, Rhonchi, Wheezes - Cardiovascular Exam Cardiovascular Exam: REGULAR RHYTHM, +S1, +S2, Murmur. absent: Gallop, Rubs - GI/Abdominal Exam GI & Abdominal Exam: Distended, Soft. absent: Tenderness - Extremities Exam Extremities Exam: Normal Inspection. absent: Pedal Edema - Neurological Exam Neurological Exam: Alert, Awake, Oriented x3 - Psychiatric Exam Psychiatric exam: Normal Affect, Normal Mood - Skin Skin Exam: Dry, Normal Color Assessment and Plan - Assessment and Plan (Free Text) Assessment: 82yo F with PMH HTN, DM, HLD, PVD, CKD, COPD, hypothyroid, anemia, nephrolithiasis, leukemia admitted for further evaluation and treatment of pneumonia and pleural effusion. Plan: Pneumonia: - pt afebrile - CXR 03/14: improvement of infiltrates and L sided pleural effusion - CXR 03/12: improvement of infiltrates, stable L sided pleural effusion - CT Chest 03/05: CHF vascular pattern, dilated pulmonary artery 3.6cm, consider pulmonary arterial hypertension. mild b/l pleural effusions with atelectasis at b/l lower lobes. underlying pneumonia not excluded. 3mm right apical nonclacified nodule f/u 12 months - Strept pneumo, influenza, urine legionella, m.pneumonia negative - BCx negative final - sputum Cx: normal oral rossi - d/c zosyn 2.25 IV q8h (day 10) - continue Florastor 250mg PO BID - duonebs 3ML INH Q4H PRN - acetylcysteine 20% 4ml INH q4h [facility] - mucinex 600 mg BID - NC @3L - CPT - Pulm consulted, Dr. Trevino Plueral Effusion: - s/p thoracentesis 03/14: 350cc jen color fluid drained - US: mod to large L pleural effusion: 9. 4 x 6 x 11.8cm - CXR 03/14: improvement of infiltrates and L sided pleural effusion - CXR 03/12: improvement of infiltrates, stable L sided pleural effusion - CT Chest 03/05: CHF vascular pattern, dilated pulmonary artery 3.6cm, consider pulmonary arterial hypertension. mild b/l pleural effusions with atelectasis at b/l lower lobes. underlying pneumonia not excluded. 3mm right apical nonclaci fied nodule f/u 12 months - BNP 03/05: 4110 - increase lasix to 40mg IV BID, as per nephro - NC 3L - CPT - IR consulted, Von Heart failure with normal ejection fraction - BNP 03/06: 4110 - ECHO: EF 60-65%, mild , mild TR, mild pulm HTN - CT Chest 03/05: CHF vascular pattern, dilated pulmonary artery 3.6cm, consider pulmonary arterial hypertension. mild b/l pleural effusions with atelectasis at b/l lower lobes. underlying pneumonia not excluded. 3mm right apical non clacified nodule f/u 12 months - I/O: -1800ml - increase lasix to 40mg IV BID, as per nephro Renal insufficiency - BUN/Cr 49/3.3 - I/O: -1800ml - renal US: chronic parenchymal disease, no acute findings - protein excretion rate elevated at 274.5 - continue phoslo 667mg PO TID - Nephro consulted, Dr. 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 Avel Enrique - f/u recs Hypothyroidism - TSH 4.99 - continue synthroid 100mcg PO QD Dyslipidemia - T, Chol:124, LDL: 49 and HDL: 38 - continue Crestor 10mg PO HS HTN - Continue home medications: HCTZ 12.5MG PO daily Norvasc 10mg PO daily Toprol XL 25mg PO daily COPD - duonebs 3ML INH Q4H PRN - acetylcysteine 20% 4ml INH q4h [facility] - mucinex 600 mg BID - NC 3L - CPT Peripheral vascular disease - History of stent placement - continue Effient 10mg PO daily, hold if worsening thrombocytopenia Type II DM - HbA1C (09/30/17): 8.3 - Heart healthy diet with low carbohydrate consistency - Accuchecks - Januvia 25mg daily - ISS low dose - Hypoglycemia protocol PPX: DVT: SCDs, effient 10mg PO daily GI: Not indicated PT/OT: recommend [facility] Dispo: Pt does not want to go to [facility], plan for home d/c. Awaiting home O2 delivery as per . Patient seen and plan discussed with Dr. Reyes <Reji Reyes - Last Filed: 03/18/18 07:19> Objective - Vital Signs/Intake and Output Vital Signs (last 24 hours): Temp Pulse Resp BP Pulse Ox 98.6 F 86 18 140/59 L 96 03/16/18 15:00 03/16/18 15:00 03/16/18 15:00 03/16/18 17:32 03/16/18 15:00 - Labs Labs: 03/16/18 06:50 03/16/18 06:50 PT 15.7 SECONDS (9.7-12.2) H 03/06/18 07:17 INR 1.4 03/06/18 07:17 Attending/Attestation - Attestation I have personally seen and examined this patient.: Yes I have fully participated in the care of the patient.: Yes I have reviewed all pertinent clinical information, including history, physical exam and plan: Yes Notes (Text): Medical attending: Patient was seen and examined by me, Agree with the above note by the resident The patient was not in any acute distress when I came and saw her with the [facility] resident The patient's family member faithfully at bedside The patient reported feeling well and at that time despite recomendations by PT to go to [facility] they wanted to go home. Will need further clarification from pulmonology if needs to go with home oxygen Reji Reyes
--- NOTE | 2018-03-15 13:33 | CP.PCM.PN ---
Subjective - Date & Time of Evaluation Date of Evaluation: 03/15/18 Time of Evaluation: 13:33 - Subjective Subjective: Patient seen and examined No events overnight Comfortable on oxygen supplementation Objective - Vital Signs/Intake and Output Vital Signs (last 24 hours): Temp Pulse Resp BP Pulse Ox 98.1 F 83 20 156/63 H 96 03/15/18 07:00 03/15/18 07:00 03/15/18 07:00 03/15/18 10:30 03/15/18 07:00 Intake and Output: 03/15/18 03/15/18 06:59 18:59 Output Total 1200 Balance -1200 - Medications Medications: Current Medications Acetylcysteine (Acetylcysteine 20%) 4 ml INH Q4 [facility] Last Admin: 03/15/18 11:24 Dose: 4 ml Albuterol/Ipratropium (Duoneb 3 Mg/0.5 Mg (3 Ml) Ud) 3 ml INH RQ4 PRN PRN Reason: Shortness of Breath Last Admin: 03/15/18 11:24 Dose: 3 ml Amlodipine Besylate (Norvasc) 10 mg PO DAILY [facility] Last Admin: 03/15/18 10:31 Dose: 10 mg Calcium Acetate (Phoslo) 667 mg PO TID [facility] Last Admin: 03/15/18 13:27 Dose: 667 mg Dextrose (Dextrose 50% Inj) 0 ml IV STAT PRN; Protocol PRN Reason: Hypoglycemia Protocol Dextrose (Glutose 15) 0 gm PO ONCE PRN; Protocol PRN Reason: Hypoglycemia Protocol Furosemide (Lasix) 40 mg PO BID [facility] Last Admin: 03/15/18 10:30 Dose: 40 mg Glucagon (Glucagen Diagnostic Kit) 0 mg IM STAT PRN; Protocol PRN Reason: Hypoglycemia Protocol Guaifenesin (Mucinex La) 600 mg PO BID [facility] Last Admin: 03/15/18 10:31 Dose: 600 mg Guaifenesin/Dextromethorphan (Robitussin Dm) 5 ml PO Q4H PRN PRN Reason: Cough Insulin Aspart (Novolog) 0 unit SC [facility]; Protocol Last Admin: 03/15/18 12:49 Dose: 2 unit Levothyroxine Sodium (Synthroid) 100 mcg PO DAILY@0630 [facility] Last Admin: 03/15/18 05:31 Dose: 100 mcg Metoprolol Succinate (Toprol Xl) 25 mg PO DAILY [facility] Last Admin: 03/15/18 10:31 Dose: 25 mg Potassium Chloride (Potassium Chloride Oral Soln) 40 meq PO DAILY [facility] Last Admin: 03/15/18 10:31 Dose: 40 meq Prasugrel (Effient) 10 mg PO DAILY [facility] Last Admin: 03/14/18 09:28 Dose: 10 mg Rosuvastatin Calcium (Crestor) 10 mg PO HS [facility] Last Admin: 03/14/18 21:40 Dose: 10 mg Saccharomyces Boulardii (Florastor) 250 mg PO BID [facility] Last Admin: 03/15/18 10:31 Dose: 250 mg Sitagliptin Phosphate (Januvia) 25 mg PO DAILY [facility] Last Admin: 03/15/18 10:31 Dose: 25 mg - Labs Labs: 03/15/18 06:57 03/15/18 06:57 PT 15.7 SECONDS (9.7-12.2) H 03/06/18 07:17 INR 1.4 03/06/18 07:17 - Head Exam Head Exam: NORMAL INSPECTION - Eye Exam Eye Exam: Normal appearance - ENT Exam ENT Exam: Mucous Membranes Moist - Respiratory Exam Respiratory Exam: Clear to Ausculation Bilateral - Cardiovascular Exam Cardiovascular Exam: REGULAR RHYTHM, +S1, +S2 - GI/Abdominal Exam GI & Abdominal Exam: Soft, Normal Bowel Sounds - Extremities Exam Extremities Exam: Normal Inspection - Neurological Exam Neurological Exam: Alert, Oriented x3 Assessment and Plan (1) Obstructive sleep apnea Status: Acute (2) CKD (chronic kidney disease) stage 4, GFR 15-29 ml/min Status: Acute (3) Pleural effusion Status: Acute (4) Pneumonia Status: Acute (5) Type II diabetes mellitus Status: Acute (6) CHF (congestive heart failure) Status: Acute - Assessment and Plan (Free Text) Plan: Patient is hypoxemic off oxygen supplementation Needs O2 supplementation at home Continue Lasix Continue current care and patient can be discharged home with oxygen supplementation
[2018-03-16] MEDS: Acetylcysteine 20% Inhal Soln (4ml) INH SCH ×4 (03:04→18:31)
[2018-03-16] MEDS: Levothyroxine 100 MCG TAB PO SCH (05:44)
[2018-03-16 07:06] LABS: BASO # 0.1 K/uL (0.0-0.2); BASO % 0.3 % (0.0-2.0); EOS # 0.1 K/uL (0.0-0.7); EOS % 0.5 % (0.0-4.0); HEMOGLOBIN 9.4 g/dL (11.0-16.0); LYMPH # 2.8 K/uL (1.0-4.3); LYMPH % 11.2 % (20.0-40.0); MEAN CELL VOLUME 91.3 fL (81.0-99.0); MEAN CORPUSCULAR HEMOGLOBIN 29.8 pg (27.0-31.0); MEAN CORPUSCULAR HGB CONC 32.6 g/dL (33.0-37.0); MEAN PLATELET VOLUME 9.8 fL (7.2-11.7); MONO # 6.3 K/uL (0.0-0.8); MONO % 25.5 % (0.0-10.0); NEUT # 15.5 K/uL (1.8-7.0); NEUT % 62.5 % (50.0-75.0); NRBC % 0.1 % (0.0-2.0); PLATELET COUNT 106 K/uL (130-400); RBC 3.15 Mil/uL (3.80-5.20); RED CELL DISTRIBUTION WIDTH 16.7 % (11.5-14.5); WHITE BLOOD COUNT 24.8 K/uL (4.8-10.8)
[2018-03-16 07:22] LABS: ALB/GLOB RATIO 0.8 (1.0-2.1); ALBUMIN 3.3 g/dL (3.5-5.0); CALCIUM 8.5 mg/dl (8.6-10.4)
[2018-03-16] MEDS: Albuterol-Ipratrop 3 mg / 0.5 (3 ml) UD INH PRN ×2 (07:45→13:36)
[2018-03-16] MEDS: (Novolog) Insulin Aspart, Recombinant 100 u/ml 10 ml vial SC SCH ×3 (08:23→17:31)
[2018-03-16 08:33] LABS: ANISOCYTOSIS SLIGHT; BANDS 3 % (0-2); EOSINOPHIL 2 % (0-4); LARGE PLATELETS PRESENT; LYMPHOCYTE 14 % (20-40); METAMYELOCYTE 1 % (0-0); MONOCYTE 22 % (0-10); MYELOCYTE 2 % (0-0); NEUTROPHIL 56 % (50-75); PLATELET ESTIMATE DECREASED (NORMAL); TOTAL CELLS COUNTED 100
[2018-03-16 08:35] LABS: STOMATOCYTES SLIGHT
[2018-03-16] MEDS: Saccharomyces Boulardi 250 mg Cap PO SCH ×2 (09:17→17:31)
[2018-03-16] MEDS: guaiFENesin 600 mg ER Tab PO SCH ×2 (09:17→17:31)
[2018-03-16] MEDS: Metoprolol Succinate 25 mg XL Tab PO SCH (09:17)
[2018-03-16] MEDS: Potassium Chloride 20 mEq/15 ml LIQ UD PO SCH (09:18)
--- NOTE | 2018-03-16 14:09 | CP.PCM.PN ---
Subjective - Date & Time of Evaluation Date of Evaluation: 03/16/18 Time of Evaluation: 14:07 - Subjective Subjective: less dyspneic Creat stable at 2.9 wants to go home Objective - Vital Signs/Intake and Output Vital Signs (last 24 hours): Temp Pulse Resp BP Pulse Ox 98.2 F 89 20 131/52 L 98 03/16/18 08:15 03/16/18 09:23 03/16/18 08:15 03/16/18 09:23 03/16/18 08:15 Intake and Output: 03/16/18 03/16/18 06:59 18:59 Intake Total 100 Output Total 1870 Balance -1770 - Medications Medications: Current Medications Acetylcysteine (Acetylcysteine 20%) 4 ml INH Q4 [facility] Last Admin: 03/16/18 13:36 Dose: 4 ml Albuterol/Ipratropium (Duoneb 3 Mg/0.5 Mg (3 Ml) Ud) 3 ml INH RQ4 PRN PRN Reason: Shortness of Breath Last Admin: 03/16/18 13:36 Dose: 3 ml Amlodipine Besylate (Norvasc) 10 mg PO DAILY [facility] Last Admin: 03/16/18 09:17 Dose: 10 mg Calcium Acetate (Phoslo) 667 mg PO TID [facility] Last Admin: 03/16/18 13:57 Dose: 667 mg Dextrose (Dextrose 50% Inj) 0 ml IV STAT PRN; Protocol PRN Reason: Hypoglycemia Protocol Dextrose (Glutose 15) 0 gm PO ONCE PRN; Protocol PRN Reason: Hypoglycemia Protocol Furosemide (Lasix) 40 mg PO BID [facility] Last Admin: 03/16/18 09:17 Dose: 40 mg Glucagon (Glucagen Diagnostic Kit) 0 mg IM STAT PRN; Protocol PRN Reason: Hypoglycemia Protocol Guaifenesin (Mucinex La) 600 mg PO BID [facility] Last Admin: 03/16/18 09:17 Dose: 600 mg Guaifenesin/Dextromethorphan (Robitussin Dm) 5 ml PO Q4H PRN PRN Reason: Cough Insulin Aspart (Novolog) 0 unit SC ACHS [facility]; Protocol Last Admin: 03/16/18 12:28 Dose: 1 unit Levothyroxine Sodium (Synthroid) 100 mcg PO DAILY@0630 [facility] Last Admin: 03/16/18 05:44 Dose: 100 mcg Metoprolol Succinate (Toprol Xl) 25 mg PO DAILY [facility] Last Admin: 03/16/18 09:17 Dose: 25 mg Potassium Chloride (Potassium Chloride Oral Soln) 40 meq PO DAILY [facility] Last Admin: 03/16/18 09:18 Dose: 40 meq Prasugrel (Effient) 10 mg PO DAILY [facility] Last Admin: 03/16/18 09:18 Dose: 10 mg Rosuvastatin Calcium (Crestor) 10 mg PO HS [facility] Last Admin: 03/15/18 21:33 Dose: 10 mg Saccharomyces Boulardii (Florastor) 250 mg PO BID [facility] Last Admin: 03/16/18 09:17 Dose: 250 mg Sitagliptin Phosphate (Januvia) 25 mg PO DAILY [facility] Last Admin: 03/16/18 09:17 Dose: 25 mg - Labs Labs: 03/16/18 06:50 03/16/18 06:50 PT 15.7 SECONDS (9.7-12.2) H 03/06/18 07:17 INR 1.4 03/06/18 07:17 - Constitutional Appears: No Acute Distress, Chronically Ill - Head Exam Head Exam: ATRAUMATIC, NORMAL INSPECTION - Eye Exam Eye Exam: EOMI, Normal appearance - Neck Exam Neck Exam: Normal Inspection. absent: Tenderness - Respiratory Exam Respiratory Exam: Rhonchi, NORMAL BREATHING PATTERN - Cardiovascular Exam Cardiovascular Exam: REGULAR RHYTHM, +S1 - GI/Abdominal Exam GI & Abdominal Exam: Soft. absent: Tenderness - Extremities Exam Extremities Exam: Normal Inspection. absent: Tenderness - Neurological Exam Neurological Exam: Awake, CN II-XII Intact - Skin Skin Exam: Dry, Warm Assessment and Plan (1) CKD (chronic kidney disease) stage 4, GFR 15-29 ml/min Status: Acute (2) Hypothyroidism Status: Acute (3) CHF (congestive heart failure) Status: Acute (4) Hypothyroidism Status: Acute - Assessment and Plan (Free Text) Plan: Same oral lasix if cleared by pulmonary can be followed as outpt
--- NOTE | 2018-03-16 15:08 | CP.PCM.PN ---
Subjective - Date & Time of Evaluation Date of Evaluation: 03/16/18 Time of Evaluation: 15:06 - Subjective Subjective: Patient seen and examined No events overnight Objective - Vital Signs/Intake and Output Vital Signs (last 24 hours): Temp Pulse Resp BP Pulse Ox 98.2 F 89 20 131/52 L 98 03/16/18 08:15 03/16/18 09:23 03/16/18 08:15 03/16/18 09:23 03/16/18 08:15 Intake and Output: 03/16/18 03/16/18 06:59 18:59 Intake Total 100 Output Total 1870 Balance -1770 - Medications Medications: Current Medications Acetylcysteine (Acetylcysteine 20%) 4 ml INH Q4 [facility] Last Admin: 03/16/18 13:36 Dose: 4 ml Albuterol/Ipratropium (Duoneb 3 Mg/0.5 Mg (3 Ml) Ud) 3 ml INH RQ4 PRN PRN Reason: Shortness of Breath Last Admin: 03/16/18 13:36 Dose: 3 ml Amlodipine Besylate (Norvasc) 10 mg PO DAILY [facility] Last Admin: 03/16/18 09:17 Dose: 10 mg Calcium Acetate (Phoslo) 667 mg PO TID [facility] Last Admin: 03/16/18 13:57 Dose: 667 mg Dextrose (Dextrose 50% Inj) 0 ml IV STAT PRN; Protocol PRN Reason: Hypoglycemia Protocol Dextrose (Glutose 15) 0 gm PO ONCE PRN; Protocol PRN Reason: Hypoglycemia Protocol Furosemide (Lasix) 40 mg PO BID [facility] Last Admin: 03/16/18 09:17 Dose: 40 mg Glucagon (Glucagen Diagnostic Kit) 0 mg IM STAT PRN; Protocol PRN Reason: Hypoglycemia Protocol Guaifenesin (Mucinex La) 600 mg PO BID [facility] Last Admin: 03/16/18 09:17 Dose: 600 mg Guaifenesin/Dextromethorphan (Robitussin Dm) 5 ml PO Q4H PRN PRN Reason: Cough Insulin Aspart (Novolog) 0 unit SC [facility]; Protocol Last Admin: 03/16/18 12:28 Dose: 1 unit Levothyroxine Sodium (Synthroid) 100 mcg PO DAILY@0630 [facility] Last Admin: 03/16/18 05:44 Dose: 100 mcg Metoprolol Succinate (Toprol Xl) 25 mg PO DAILY [facility] Last Admin: 03/16/18 09:17 Dose: 25 mg Potassium Chloride (Potassium Chloride Oral Soln) 40 meq PO DAILY [facility] Last Admin: 03/16/18 09:18 Dose: 40 meq Prasugrel (Effient) 10 mg PO DAILY [facility] Last Admin: 03/16/18 09:18 Dose: 10 mg Rosuvastatin Calcium (Crestor) 10 mg PO HS [facility] Last Admin: 03/15/18 21:33 Dose: 10 mg Saccharomyces Boulardii (Florastor) 250 mg PO BID [facility] Last Admin: 03/16/18 09:17 Dose: 250 mg Sitagliptin Phosphate (Januvia) 25 mg PO DAILY [facility] Last Admin: 03/16/18 09:17 Dose: 25 mg - Labs Labs: 03/16/18 06:50 03/16/18 06:50 PT 15.7 SECONDS (9.7-12.2) H 03/06/18 07:17 INR 1.4 03/06/18 07:17 - Head Exam Head Exam: NORMAL INSPECTION - Eye Exam Eye Exam: Normal appearance - ENT Exam ENT Exam: Mucous Membranes Moist - Respiratory Exam Respiratory Exam: Clear to Ausculation Bilateral - Cardiovascular Exam Cardiovascular Exam: REGULAR RHYTHM, +S1, +S2 - GI/Abdominal Exam GI & Abdominal Exam: Soft, Normal Bowel Sounds - Extremities Exam Extremities Exam: Normal Inspection Assessment and Plan (1) Obstructive sleep apnea Status: Acute (2) CKD (chronic kidney disease) stage 4, GFR 15-29 ml/min Status: Acute (3) Pleural effusion Status: Acute (4) Pneumonia Status: Acute (5) Type II diabetes mellitus Status: Acute (6) CHF (congestive heart failure) Status: Acute - Assessment and Plan (Free Text) Plan: Continue current care Patient is awaiting arrangements for home oxygen Okay to [place] home from pulmonary perspective once arrangements for oxygen supplementation are made
[2018-03-16 15:53] VITALS: PULSE 86; RESP 18; TEMP 98.6; O2SAT 96
--- NOTE | 2018-03-16 16:46 | CP.PCM.DIS ---
Provider - Provider Date of Admission: 03/04/18 16:11 Attending physician: Reji Reyes DO Consults: Malachi - David Nephro - Kian BOBY - Von Day Time Spent in preparation of Discharge (in minutes): 70 Hospital Course - Lab Results Lab Results: Micro Results 03/10/18 10:00 Sputum Gram Stain - Final 03/10/18 10:00 Sputum Sputum Culture - Final NORMAL ORAL THIERRY 03/07/18 22:00 Sputum Gram Stain - Final 03/07/18 22:00 Sputum Sputum Culture - Final NORMAL ORAL THIERRY 03/04/18 16:30 Blood Blood Culture - Final NO GROWTH AFTER 5 DAYS 03/04/18 16:30 Blood Gram Stain - Final TEST NOT PERFORMED 03/04/18 16:10 Blood Blood Culture - Final NO GROWTH AFTER 5 DAYS 03/04/18 16:10 Blood Gram Stain - Final TEST NOT PERFORMED 03/06/18 21:34 Urine,Clean Catch Urine Culture - Final No Growth (<1,000 CFU/ML) Most Recent Lab Values WBC 24.8 K/uL (4.8-10.8) H 03/16/18 06:50 RBC 3.15 Mil/uL (3.80-5.20) L 03/16/18 06:50 Hgb 9.4 g/dL (11.0-16.0) L 03/16/18 06:50 Hct 28.7 % (34.0-47.0) L 03/16/18 06:50 MCV 91.3 fL (81.0-99.0) 03/16/18 06:50 MCH 29.8 pg (27.0-31.0) 03/16/18 06:50 MCHC 32.6 g/dL (33.0-37.0) L 03/16/18 06:50 RDW 16.7 % (11.5-14.5) H 03/16/18 06:50 Plt Count 106 K/uL (130-400) L 03/16/18 06:50 MPV 9.8 fL (7.2-11.7) 03/16/18 06:50 Neut % (Auto) 62.5 % (50.0-75.0) 03/16/18 06:50 Lymph % (Auto) 11.2 % (20.0-40.0) L 03/16/18 06:50 [place] % (Auto) 25.5 % (0.0-10.0) H 03/16/18 06:50 Eos % (Auto) 0.5 % (0.0-4.0) 03/16/18 06:50 Baso % (Auto) 0.3 % (0.0-2.0) 03/16/18 06:50 Neut # (Auto) 15.5 K/uL (1.8-7.0) H 03/16/18 06:50 Lymph # (Auto) 2.8 K/uL (1.0-4.3) 03/16/18 06:50 [place] # (Auto) 6.3 K/uL (0.0-0.8) H 03/16/18 06:50 Eos # (Auto) 0.1 K/uL (0.0-0.7) 03/16/18 06:50 Baso # (Auto) 0.1 K/uL (0.0-0.2) 03/16/18 06:50 Neutrophils % (Manual) 56 % (50-75) 03/16/18 06:50 Band Neutrophils % 3 % (0-2) H 03/16/18 06:50 Lymphocytes % (Manual) 14 % (20-40) L 03/16/18 06:50 Reactive Lymphs % 2 % (0-0) H 03/15/18 06:57 Monocytes % (Manual) 22 % (0-10) H 03/16/18 06:50 Eosinophils % (Manual) 2 % (0-4) 03/16/18 06:50 Basophils % (Manual) 2 % (0-2) 03/11/18 07:19 Metamyelocytes % 1 % (0-0) H 03/16/18 06:50 Myelocytes % 2 % (0-0) H 03/16/18 06:50 Nucleated RBC % 1 % (0-0) H 03/12/18 07:44 Platelet Estimate Decreased (NORMAL) L 03/16/18 06:50 Large Platelets Present 03/16/18 06:50 Polychromasia Slight 03/13/18 06:36 Hypochromasia (manual) Slight 03/14/18 07:09 Poikilocytosis (manual Slight 03/14/18 07:09 Basophilic Stippling Slight 03/16/18 06:50 Anisocytosis (manual) Slight 03/16/18 06:50 Microcytosis (manual) Slight 03/11/18 07:19 Macrocytosis (manual) Slight 03/11/18 07:19 Spherocytes Slight 03/10/18 06:29 Tear Drop Cells Slight 03/11/18 07:19 Ovalocytes Slight 03/11/18 07:19 Stomatocytes Slight 03/16/18 06:50 PT 15.7 SECONDS (9.7-12.2) H 03/06/18 07:17 INR 1.4 03/06/18 07:17 Puncture Site Rr 03/06/18 10:40 pCO2 34 mm/Hg (35-45) L 03/06/18 10:40 pO2 55 mm/Hg (80-100) L 03/06/18 10:40 HCO3 23.7 mmol/L (21-28) 03/06/18 10:40 ABG pH 7.43 (7.35-7.45) 03/06/18 10:40 ABG Total CO2 23.6 mmol/L (22-28) 03/06/18 10:40 ABG O2 Saturation 93.5 % (95-98) L 03/06/18 10:40 ABG Base Excess -1.4 mmol/L (-2.0-3.0) 03/06/18 10:40 ABG Hemoglobin 8.6 g/dL (11.7-17.4) L 03/06/18 10:40 ABG Carboxyhemoglobin 3.1 % (0.5-1.5) H 03/06/18 10:40 POC ABG HHb (Measured) 6.2 % (0.0-5.0) H 03/06/18 10:40 ABG Methemoglobin 2.2 % (0.0-3.0) 03/06/18 10:40 Brayan Test Pos 03/06/18 10:40 A-a O2 Difference 188.0 mm/Hg 03/06/18 10:40 Respiratory Index 3.4 03/06/18 10:40 Hgb O2 Saturation 88.6 % (95.0-98.0) L 03/06/18 10:40 FiO2 40.0 % 03/06/18 10:40 Inspiratory BiPAP 10 03/06/18 10:40 Expiratory BiPAP 5 03/06/18 10:40 Sodium 139 mmol/L (132-148) 03/16/18 06:50 Potassium 4.2 mmol/L (3.6-5.2) 03/16/18 06:50 Chloride 100 mmol/L (98-107) 03/16/18 06:50 Carbon Dioxide 30 mmol/L (22-30) 03/16/18 06:50 Anion Gap 14 (10-20) 03/16/18 06:50 BUN 44 mg/dL (7-17) H 03/16/18 06:50 Creatinine 2.9 mg/dL (0.7-1.2) H 03/16/18 06:50 Est GFR ( Amer) 19 03/16/18 06:50 Est GFR (Non-Af Amer) 16 03/16/18 06:50 POC Glucose (mg/dL) 247 mg/dL (65-110) H 03/16/18 16:09 Random Glucose 125 mg/dL (65-105) H 03/16/18 06:50 Calcium 8.5 mg/dl (8.6-10.4) L 03/16/18 06:50 Phosphorus 4.5 mg/dL (2.5-4.5) 03/16/18 06:50 Magnesium 1.7 mg/dL (1.6-2.3) 03/16/18 06:50 % Saturation 23 (20-55) 03/08/18 09:52 Ferritin 464.0 ng/mL 03/08/18 07:20 Total Bilirubin 0.5 mg/dL (0.2-1.3) 03/16/18 06:50 AST 37 U/L (14-36) H D 03/16/18 06:50 ALT 25 U/L (9-52) 03/16/18 06:50 Alkaline Phosphatase 58 U/L (38-126) 03/16/18 06:50 Total Creatine Kinase 21 U/L (30-135) L 03/05/18 02:56 CK-MB (Mass) 0.44 ng/mL (0.0-3.38) 03/05/18 02:56 Troponin I 0.0220 ng/mL (0.00-0.120) 03/05/18 02:56 NT-Pro-B Natriuret Pep 4110 pg/mL (0-900) H 03/05/18 02:56 Total Protein 7.2 g/dL (6.3-8.3) 03/16/18 06:50 Albumin 3.3 g/dL (3.5-5.0) L 03/16/18 06:50 Globulin 3.9 gm/dL (2.2-3.9) 03/16/18 06:50 Albumin/Globulin Ratio 0.8 (1.0-2.1) L 03/16/18 06:50 Triglycerides 95 mg/dL (0-149) D 03/05/18 02:56 Cholesterol 124 mg/dL (0-199) 03/05/18 02:56 LDL Cholesterol Direct 49 mg/dL (0-129) 03/05/18 02:56 HDL Cholesterol 38 mg/dL (30-70) 03/05/18 02:56 TSH 3rd Generation 4.99 mIU/L (0.46-4.68) H 03/05/18 02:56 PTH Intact Whole Molec 84 pg/mL (14-64) H 03/06/18 07:17 Urine Color Yellow (YELLOW) 03/06/18 21:43 Urine Clarity Hazy (Clear) 03/06/18 21:43 Urine pH 5.0 (5.0-8.0) 03/06/18 21:43 Ur Specific [place] 1.010 (1.003-1.030) 03/06/18 21:43 Urine Protein Negative mg/dL (NEGATIVE) 03/06/18 21:43 Urine Glucose (UA) Normal mg/dL (Normal) 03/06/18 21:43 Urine Ketones Negative mg/dL (NEGATIVE) 03/06/18 21:43 Urine Blood 2+ (NEGATIVE) H 03/06/18 21:43 Urine Nitrate Negative (NEGATIVE) 03/06/18 21:43 Urine Bilirubin Negative (NEGATIVE) 03/06/18 21:43 Urine Urobilinogen Normal mg/dL (0.2-1.0) 03/06/18 21:43 Ur Leukocyte Esterase Neg Ludy/uL (Negative) 03/06/18 21:43 Urine WBC (Auto) 1 /hpf (0-5) 03/06/18 21:43 Urine RBC (Auto) 10 /hpf (0-3) H 03/06/18 21:43 Ur Squamous Epith Cells 2 /hpf (0-5) 03/06/18 21:43 Urine Bacteria Rare (<OCC) 03/05/18 18:04 Hyaline Casts 6-10 /lpf (0-2) H 03/05/18 18:04 Urine Collection Time 24 HRS 03/06/18 19:08 Urine Total Volume 450 mL 03/06/18 19:08 Ur Protein 24 Hr Calc 274.5 mg/24hr (42-225) H 03/06/18 19:08 Random Vancomycin 10.4 ug/mL 03/08/18 07:20 Influenza Typ A,B (EIA) Negative for flu a/b (NEGATIVE) 03/04/18 16:47 H.influenzae Type B Ag Negative (NEGATIVE) 03/05/18 09:16 Ur L.pneumophila Ag Negative (NEGATIVE) 03/05/18 09:29 Mycoplasma pneumon IgM Negative (NEGATIVE) 03/04/18 21:09 N.meningitidis ACY/W135 Negative (NEGATIVE) 03/05/18 09:16 N.meningi B/E.coli K1 Ag Negative (NEGATIVE) 03/05/18 09:16 Group B Strep Antigen Negative (NEGATIVE) 03/05/18 09:16 S. pneumoniae Antigen Negative (NEGATIVE) 03/05/18 09:16 Blood Type A POSITIVE 03/07/18 12:06 Antibody Screen Negative 03/07/18 12:06 - Hospital Course Hospital Course: Upon Admission: Patient is a 82 year old female with past medical history of DM, HTN, HLD, PVD, CKD, COPD, hypothyroidism, anemia, kidney stones and Leukemia diagnosed last year by bone marrow biopsy(not on treatment but receives procrit injection every 1-2 weeks), who presents to the ED with her daughter with complaints of chest tightness and shortness of breath that started 3 days ago. As per daughter and patient's mother, patient has been using her nebulizer and albuterol treatment 1-2 times per day but not every 4 hours as she has been instructed by her PMD whenever she feels extreme chest tightness or shortness of breath. With the use of nebulizer and albuterol, patient did not note any symptomatic relief. Patient admits to productive cough with white sputum since last week Monday with associated symptoms of 5/10 midsternal chest tightness without radiation. As per daughter and patient, patient had cold symptoms and cough last week and was prescribed Tussin DM by her PMD. CXR showed opacifications and a pleural effusion on the L lung. Pt was admitted for pneumonia and pleural effusion. Hospital Course: CT Chest 03/05: CHF vascular pattern, dilated pulmonary artery 3.6cm, consider pulmonary arterial hypertension. mild b/l pleural effusions with atelectasis at b/l lower lobes. underlying pneumonia not excluded. 3mm right apical nonclacified nodule f/u 12 months. Pt was started on azithromycin and zosyn, bipap, lasix, and continuation of home medications. Pulmonology was consulted and recommended continuation of antibiotics and bipap. He also recommended thoracentesis if the pleural effusion was sizable. Nephrology was consulted and recommended increasing lasix. They recommended outpatient evaluation for hemodialysis. STATEMENT DISTRIBUTION CLERK was called on 03/06 for O2 sat 82-85%. Pt O2 saturation improved with increased FiO2 bipap. CXR 03/10: b/l pulm infiltrates, may be improved on R. dense infiltrate at L bases and mid lung. Mild to mod L pleural effusion at L base. Renal US: chronic parenchymal disease, no acute findings 2u irradiated PRBCs were transfused for anemia. Hemoglobin improved post transfusion. CXR 03/12: improved infilitrates in R lung, stable pleural effusion in L mid/lower lung Pleural Effusion US: mod to large L pleural effusion: 9. 4x 6 x 11.8cm IR was consulted and performed a thoracentesis on 03/14: 350cc jen fluid drained CXR 03/14: improved infiltrates and pleural effusion Pt breathing improved and was taken off bipap and put on nasal cannula. She was deemed stable for discharge. Upon Discharge: Pt was deemed stable for discharge. It was recommended to discharge her on home oxygen, which was coordinated. Pt was advised to follow up with her custodian supervisor, Dr. Hernandez, vacuum form operator, Dr. Leach, bungy jump master, Dr. Landy Day, and caption writer, Dr. Day. Pt understood these instructions and agreed. Discharge Exam - Head Exam Head Exam: ATRAUMATIC, NORMAL INSPECTION, NORMOCEPHALIC - Eye Exam Eye Exam: EOMI, Normal appearance, PERRL Pupil Exam: NORMAL ACCOMODATION - ENT Exam ENT Exam: Mucous Membranes Moist - Respiratory Exam Respiratory Exam: Clear to PA & Lateral, NORMAL BREATHING PATTERN. absent: Rales, Rhonchi, Wheezes - Cardiovascular Exam Cardiovascular Exam: REGULAR RHYTHM, +S1, +S2. absent: Gallop, Rubs, Systolic Murmur - GI/Abdominal Exam GI & Abdominal Exam: Normal Bowel Sounds, Soft. absent: Distended, Firm, Tenderness - Extremities Exam Extremities exam: normal inspection - Neurological Exam Neurological exam: Alert, Oriented x3 - Psychiatric Exam Psychiatric exam: Normal Affect, Normal Mood - Skin Skin Exam: Dry Discharge Plan - Discharge Medications Prescriptions: Albuterol Sulfate [Proair Hfa] 0.09 mg IH Q6 PRN #1 inh PRN Reason: Cough amLODIPine [Norvasc] 10 mg PO DAILY #14 tab Fenofibrate [Tricor] 48 mg PO DAILY #14 tab Furosemide [Lasix] 20 mg PO BID 14 Days tablet Hydrochlorothiazide [Microzide] 12.5 mg PO DAILY #14 capsule Insulin Glargine,Hum.rec.anlog [Lantus Solostar] 50 unit SQ PRN PRN 30 Days insuln.pen PRN Reason: high blood sugar Levothyroxine [Synthroid] 100 mcg PO DAILY@0630 #14 tab Metoprolol Succinate XL [Toprol XL] 25 mg PO DAILY #14 tab Prasugrel [Effient] 10 mg PO DAILY #14 tab Rosuvastatin Calcium [Crestor] 10 mg PO DAILY #14 tab Saccharomyces Boulardi [Florastor] 250 mg PO BID #28 cap SITagliptin [Januvia] 25 mg PO DAILY PRN #30 tab PRN Reason: high blood sugar - Follow Up Plan Condition: GOOD Disposition: HOME/ ROUTINE Instructions: Hypothyroidism (Underactive Thyroid), Pneumonia, Adult (DC), Diabetes Type 2 (DC), Pleural Effusion (DC), Diastolic Heart Failure (DC), Diabetes and Diet Additional Instructions: Please follow up with your custodian supervisor, Dr. Hernandez within 2 weeks. Please follow up with your vacuum form operator, Dr. Leach, within 1 week. Please follow up with your caption writer, Dr. Day, within 2 weeks. Please follow up with your bungy jump master, Dr. Day, within 2 weeks. Please take the medications prescribed to you. Please use the oxygen at home as needed. If your symptoms return, please visit the emergency department. Por favor erik john dirk con mosley neumlogo, el Dr. Hernandez dentro de 2 semanas. Por favor erik john dirk con mosley nefrlogo, el Dr. Leach, dentro de john juan rosie. Por favor erik john dirk con mosley cardilogo, el Dr. Day, dentro de 2 semanas. Por favor erik john dirk con mosley hematlogo, el Dr. Day, dentro de 2 semanas. Por favor tome los medicamentos recetados a usted. Por favor use el oxgeno en casa cuando sea necesario. Si avery sntomas regresan, por favor visite el departamento de emergencias. Referrals: Tj Hernandez MD [Staff Provider] - Kem Langston MD [Staff Provider] -
[2018-03-16 17:32] VITALS: BP 140/59
== END 2018-03-16 19:58 | disposition home or self-care (01) | DRG 190 ==
LOC: C.ER 14:05 → C.9E 16:11 → C.5S 16:41
PROVIDERS: ADMIT Hospitalist; ATTEND Hospitalist
PROC: 5A09557 Assistance with Respiratory Ventilation, Greater than 96 Consecutive Hours, Continuous Positive Airway Pressure (ICD-10-PCS; 2018-03-06)
PROC: 0W9B3ZZ Drainage of Left Pleural Cavity, Percutaneous Approach (ICD-10-PCS; principal; 2018-03-14)
PROC: BB4BZZZ Ultrasonography of Pleura (ICD-10-PCS; 2018-03-14)
DX: J44.0 Chronic obstructive pulmonary disease with (acute) lower respiratory infection (principal); J18.9 Pneumonia, unspecified organism; J90 Pleural effusion, not elsewhere classified; I13.0 Hypertensive heart and chronic kidney disease with heart failure and stage 1 through stage 4 chronic kidney disease, or unspecified chronic kidney disease; I50.30 Unspecified diastolic (congestive) heart failure; N18.4 Chronic kidney disease, stage 4 (severe); C93.10 Chronic myelomonocytic leukemia not having achieved remission; J98.11 Atelectasis; N17.9 Acute kidney failure, unspecified; E11.51 Type 2 diabetes mellitus with diabetic peripheral angiopathy without gangrene; R09.02 Hypoxemia; G47.33 Obstructive sleep apnea (adult) (pediatric); I35.0 Nonrheumatic aortic (valve) stenosis; E11.22 Type 2 diabetes mellitus with diabetic chronic kidney disease; E11.21 Type 2 diabetes mellitus with diabetic nephropathy; D64.9 Anemia, unspecified; D69.6 Thrombocytopenia, unspecified; E03.9 Hypothyroidism, unspecified; E78.5 Hyperlipidemia, unspecified; Z99.81 Dependence on supplemental oxygen; Z23 Encounter for immunization; Z79.84 Long term (current) use of oral hypoglycemic drugs; Z87.01 Personal history of pneumonia (recurrent); Z87.442 Personal history of urinary calculi; Z94.7 Corneal transplant status; Z83.3 Family history of diabetes mellitus

== ENCOUNTER 2018-03-24 07:20 | Inpatient (IN) | payer MEDICARE ==
[2018-03-24 07:20] VITALS: BMI 35.5
--- NOTE | 2018-03-24 07:45 | C.PDOC ---
History Of Present Illness 82 y/o female, with PMHx of COPD, CHF, HTN, leukemia, and renal insufficiency, presents to ED for evaluation of worsening shortness of breath associated with white sputum and chest tightness for the last few days. Pt was recently admitted and was discharged for pleural effusion that was drained by IR. Denies fever, or other complaints. Time Seen by Provider: 03/24/18 07:30 Chief Complaint (Nursing): Shortness Of Breath History Per: Patient History/Exam Limitations: no limitations Onset/Duration Of Symptoms: Days Current Symptoms Are (Timing): Still Present Associated Symptoms: denies: Sweating, Bloody Cough, Heart Racing, Leg/Calf Pain, Ankle/Leg Swelling Recent travel outside of the [place]: No Additional History Per: Patient, Family Past Medical History Reviewed: Historical Data, Nursing Documentation, Vital Signs Vital Signs: Last Vital Signs Temp 98.7 F 03/24/18 07:34 Pulse 11 L 03/24/18 07:34 Resp 20 03/24/18 07:34 BP 179/66 H 03/24/18 07:34 Pulse Ox 99 03/24/18 07:34 - Medical History PMH: Anemia, Arthritis, COPD, Diabetes, Gastritis, HTN, Hypothyroidism, Kidney Stones, Osteoporosis, Peripheral Edema, Pneumonia, Chronic Kidney Disease - [facility] Procedures ASSISTANCE WITH RESPIRATORY VENTILATION, 24-96 HRS, CPAP (03/19/17) ASSISTANCE WITH RESPIRATORY VENTILATION, >96 HRS, CPAP (03/04/18) DRAINAGE OF LEFT PLEURAL CAVITY, PERCUTANEOUS APPROACH (03/04/18) INSERTION OF INFUSION DEV INTO SUP VENA CAVA, PERC APPROACH (03/19/17) INTRODUCTION OF SERUM/TOX/VACCINE INTO MUSCLE, PERC APPROACH (05/27/15) TRANSFUSE NONAUT RED BLOOD CELLS IN PERIPH VEIN, PERC (02/15/17) ULTRASONOGRAPHY OF PLEURA (03/04/18) Family History: States: Unknown Family Hx - Social History Hx Tobacco Use: No Hx Alcohol Use: No Hx Substance Use: No - Immunization History Hx Tetanus Toxoid Vaccination: No Hx Influenza Vaccination: No Hx Pneumococcal Vaccination: No Review Of Systems Except As Marked, All Systems Reviewed And Found Negative. Constitutional: Negative for: Fever, Chills Cardiovascular: Positive for: Chest Pain (tightness). Negative for: Palpitations, Edema, Light Headedness Respiratory: Positive for: Cough, Shortness of Breath, Sputum. Negative for: Hemoptysis Gastrointestinal: Negative for: Nausea, Vomiting, Abdominal Pain Neurological: Negative for: Headache, Dizziness Physical Exam - Physical Exam Appears: Non-toxic, No Acute Distress Skin: Normal Color, Warm, Dry Head: Atraumatic, Normacephalic Eye(s): bilateral: Normal Inspection Oral Mucosa: Moist Neck: Normal ROM, Supple Chest: Symmetrical, No Tenderness Cardiovascular: Rhythm Regular, No Murmur Respiratory: No Accessory Muscle Use, Rales (bilateral rales, worse at left base), No Rhonchi, No Wheezing Gastrointestinal/Abdominal: Soft, No Tenderness Back: No CVA Tenderness Extremity: Normal ROM, No Pedal Edema Neurological/Psych: Oriented x3, Normal Speech ED Course And Treatment - Laboratory Results Result Diagrams: 03/24/18 08:02 03/24/18 08:02 ECG: Interpreted By Me, Viewed By Me ECG Rhythm: Sinus Rhythm ECG Interpretation: No Acute Changes Interpretation Of ECG: LVH. No ST/T wave changes. Rate From EC (bpm) O2 Sat by Pulse Oximetry: 99 (on RA) Pulse Ox Interpretation: Normal Medical Decision Making Medical Decision Making: suyspect chf pleural effusion Plan: Blood work EKG CXR lab imaging shows worsening chf, plerual effusion. ccepted dr miguel, lasix dosed. Disposition - Disposition Disposition: HOSPITALIZED Disposition Time: 09:00 Condition: STABLE - Clinical Impression Clinical Impression: CHF (congestive heart failure), Pleural effusion, Leukocytosis - Scribe Statement The provider has reviewed the documentation as recorded by the Scribe KP All medical record entries made by the Scribe were at my direction and personally dictated by me. I have reviewed the chart and agree that the record accurately reflects my personal performance of the history, physical exam, medical decision making, and the department course for this patient. I have also personally directed, reviewed, and agree with the discharge instructions and disposition. Decision To Admit - Pt Status Changed To: Hospital Disposition Of: Inpatient - Admit Certification Admit to Inpatient:: After my assessment, the patient will require hospitalization for at least two midnights. This is because of the severity of symptoms shown, intensity of services needed, and/or the medical risk in this patient being treated as an outpatient. - InPatient: Physician Admission Certification: I certify that this patient requires 2 or more midnights of care for the following reason:: needs thoracentesis lasix - . Bed Request Type: Telemetry Admitting Physician: Cherie Miguel Patient Diagnosis: CHF (congestive heart failure), Pleural effusion, Leukocytosis
[2018-03-24 08:07] LABS: BASO # 0.1 K/uL (0.0-0.2); BASO % 0.4 % (0.0-2.0); EOS # 0.1 K/uL (0.0-0.7); EOS % 0.4 % (0.0-4.0); HEMOGLOBIN 9.4 g/dL (11.0-16.0); LYMPH # 2.6 K/uL (1.0-4.3); LYMPH % 8.9 % (20.0-40.0); MEAN CELL VOLUME 90.1 fL (81.0-99.0); MEAN CORPUSCULAR HEMOGLOBIN 29.5 pg (27.0-31.0); MEAN CORPUSCULAR HGB CONC 32.7 g/dL (33.0-37.0); MEAN PLATELET VOLUME 9.7 fL (7.2-11.7); MONO # 8.7 K/uL (0.0-0.8); NEUT # 17.4 K/uL (1.8-7.0); NEUT % 60.3 % (50.0-75.0); PLATELET COUNT 105 K/uL (130-400); RBC 3.17 Mil/uL (3.80-5.20); RED CELL DISTRIBUTION WIDTH 16.6 % (11.5-14.5)
[2018-03-24 08:09] LABS: VENOUS BLOOD GAS PCO2 44 mmHg (40-60); VENOUS BLOOD GAS PO2 34 mm/Hg (30-55); VENOUS BLOOD PH 7.44 (7.32-7.43)
[2018-03-24 08:24] LABS: ALB/GLOB RATIO 0.8 (1.0-2.1); ALBUMIN 3.9 g/dL (3.5-5.0); CALCIUM 8.7 mg/dl (8.6-10.4)
[2018-03-24 08:28] LABS: INR 1.4; PROTHROMBIN TIME 14.8 SECONDS (9.7-12.2)
[2018-03-24 08:33] LABS: TROPONIN I 0.018 ng/mL (0.00-0.120)
[2018-03-24 08:40] LABS: WHITE BLOOD COUNT 28.9 K/uL (4.8-10.8)
--- NOTE | 2018-03-24 09:06 | CP.PCM.HP ---
<Ernestine Segura - Last Filed: 03/24/18 14:29> History of Present Illness - History of Present Illness History of Present Illness: Mrs. Blil is an 82 year old female with a PMHx of COPD, PVD CHF (w/ preserved E.F), HTN, Leukemia (not on tx), HLD, CKD, Hypothyrodism, and Pneumonia presents with complains of worsening shortness of breath and a productive cough x 6 days. She denies any fevers, chills, chest pain, or palpitations. She used her albuterol inhaler and nebulizer for her symptoms with moderate relief. She denies any sick contacts. Patient recently treated for pneumonia & discharged from [facility] on 03/15/18. Patient states her cough is usually on after her nebulizer treatment. ROS POSITIVES: SOB, Productive Cough, Chest congestion, Orthopnea NEGATIVES: Fever, chills, headache, dizziness, lightheadedness, abdominal pain, nausea, vomiting, diarrhea, constipation, changes in bowel habits, urinary symptoms, sick contacts Past Medical History: DM, HTN, HLD, PVD, CKD, COPD, hypothyroidism, anemia, kidney stones, pneumonia Past Surgical History: cardiac cath in January 2017 due to elevated enzymes, 3 stents placed in leg Medications: Per NOHELIA Meehan- NKKAREN Family History: father was healthy and at 99, mother had diabetes, HLD, and hypothyroidism and at 96 Social History: Lives with niece and second daughter often stays with her an first daughter lives next door, 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 Denies current or former use of alcohol, tobacco, and illicit drug use Code Status: Full code Proxy: Bharati Keene (First Daughter, ) and Ayla ( Second daughter, ) PMD: Dr. Clements [place] Supervisor: Dr. Charanjit Enrique, Pulmonologsit: Dr. Hernandez Hematology and Oncology, Dr. Avel Enrique, Present on Admission - Present on Admission Any Indicators Present on Admission: Yes History of Uncontrolled Diabetes: Yes Review of Systems - Review of Systems All systems: reviewed and no additional remarkable complaints except Review of Systems: As per HPI Past Patient History - Infectious Disease Hx of Infectious Diseases: None - Tetanus Immunizations Tetanus Immunization: Unknown - Past Medical History & Family History Past Medical History?: Yes - Past Social History Smoking Status: Never Smoked - CARDIAC Hx Hypertension: Yes Hx Peripheral Edema: Yes - PULMONARY Hx Chronic Obstructive Pulmonary Disease (COPD): Yes Hx Pneumonia: Yes - NEUROLOGICAL Hx Neurological Disorder: No - HEENT Hx HEENT Problems: Yes Hx Cataracts: Yes Other/Comment: corneal replacement both eyes - RENAL Hx Chronic Kidney Disease: Yes Hx Kidney Stones: Yes - ENDOCRINE/METABOLIC Hx Hypothyroidism: Yes - HEMATOLOGICAL/ONCOLOGICAL Hx Anemia: Yes - INTEGUMENTARY Hx Dermatological Problems: No - MUSCULOSKELETAL/RHEUMATOLOGICAL Hx Arthritis: Yes Hx Osteoporosis: Yes - GASTROINTESTINAL Hx Gastritis: Yes - GENITOURINARY/GYNECOLOGICAL Hx Genitourinary Disorders: No - PSYCHIATRIC Hx Substance Use: No - SURGICAL HISTORY Hx Surgeries: Yes Other/Comment: vascular stents. bone marrow aspiration - ANESTHESIA Hx Anesthesia: Yes Hx Anesthesia Reactions: No Meds Allergies/Adverse Reactions: Allergies Allergy/AdvReac Type Severity Reaction Status Date / Time No Known Allergies Allergy Verified 03/19/17 06:06 Physical Exam - Constitutional Appears: No Acute Distress - Head Exam Head Exam: ATRAUMATIC, NORMAL INSPECTION, NORMOCEPHALIC - Eye Exam Eye Exam: EOMI, Normal appearance. absent: Scleral icterus - ENT Exam ENT Exam: Mucous Membranes Dry - Neck Exam Neck exam: Positive for: Normal Inspection. Negative for: Lymphadenopathy, Thyromegaly - Respiratory Exam Respiratory Exam: Decreased Breath Sounds (Lung Bases B/L). absent: Rales, Rhonchi, Wheezes, Respiratory Distress, Stridor, NORMAL BREATHING PATTERN - Cardiovascular Exam Cardiovascular Exam: RRR, +S1, +S2. absent: Diastolic murmur - GI/Abdominal Exam GI & Abdominal Exam: Normal Bowel Sounds, Soft. absent: Tenderness - Extremities Exam Extremities exam: Positive for: normal capillary refill, pedal edema (Trace, B/L), pedal pulses present Additional comments: Dry and Scaly Lower Ext. B/L - Neurological Exam Neurological exam: Alert, Oriented x3 - Skin Additional comments: Erythematous Chest and Upper back. Non-tender to palpation, non-pruritic Results - Vital Signs Recent Vital Signs: Last Vital Signs Temp 98.7 F 03/24/18 07:34 Pulse 94 H 03/24/18 08:44 Resp 17 03/24/18 08:44 BP 145/45 L 03/24/18 08:44 Pulse Ox 95 03/24/18 08:44 - Labs Result Diagrams: 03/24/18 08:02 03/24/18 08:02 Labs: Laboratory Results - last 24 hr 03/24/18 03/24/18 03/24/18 08:00 08:02 08:02 WBC 28.9 H RBC 3.17 L Hgb 9.4 L Hct 28.6 L MCV 90.1 MCH 29.5 MCHC 32.7 L RDW 16.6 H Plt Count 105 L MPV 9.7 Neut % (Auto) 60.3 Lymph % (Auto) 8.9 L [place] % (Auto) 30.0 H Eos % (Auto) 0.4 Baso % (Auto) 0.4 Neut # (Auto) 17.4 H Lymph # (Auto) 2.6 [place] # (Auto) 8.7 H Eos # (Auto) 0.1 Baso # (Auto) 0.1 PT 14.8 H INR 1.4 APTT 38 H pO2 34 VBG pH 7.44 H VBG pCO2 44 VBG HCO3 28.0 VBG Total CO2 31.3 H VBG O2 Sat (Calc) 75.9 H VBG Base Excess 5.0 H VBG Potassium 3.3 L Sodium 139.0 Chloride 104.0 Glucose 117 H Lactate 1.0 Potassium Carbon Dioxide Anion Gap BUN Creatinine Est GFR ( Amer) Est GFR (Non-Af Amer) Random Glucose Calcium Total Bilirubin AST ALT Alkaline Phosphatase Troponin I NT-Pro-B Natriuret Pep Total Protein Albumin Globulin Albumin/Globulin Ratio Venous Blood Potassium 3.3 L 03/24/18 08:02 WBC RBC Hgb Hct MCV MCH MCHC RDW Plt Count MPV Neut % (Auto) Lymph % (Auto) [place] % (Auto) Eos % (Auto) Baso % (Auto) Neut # (Auto) Lymph # (Auto) [place] # (Auto) Eos # (Auto) Baso # (Auto) PT INR APTT pO2 VBG pH VBG pCO2 VBG HCO3 VBG Total CO2 VBG O2 Sat (Calc) VBG Base Excess VBG Potassium Sodium 139 Chloride 99 Glucose Lactate Potassium 3.7 Carbon Dioxide 29 Anion Gap 15 BUN 43 H Creatinine 2.7 H Est GFR ( Amer) 20 Est GFR (Non-Af Amer) 17 Random Glucose 125 H Calcium 8.7 Total Bilirubin 0.8 AST 20 ALT 13 Alkaline Phosphatase 62 Troponin I 0.0180 NT-Pro-B Natriuret Pep 8470 H Total Protein 8.7 H Albumin 3.9 Globulin 4.8 H Albumin/Globulin Ratio 0.8 L Venous Blood Potassium Assessment & Plan - Assessment and Plan (Free Text) Assessment: 82 year old female with a PMHx of COPD, PVD CHF (w/ preserved E.F), HTN, Leukemia (not on tx), HLD, CKD, Hypothyrodism, and Pneumonia admitted for evaluation and treatment of hospital acquired pneumonia. CT scan on adission showed small b/l pleural effusions. Plan: Healthcare Associated Pneumonia w/ Pleural Effusion. CXR (Admisison): Pulmonary venous congestive changes with near complete opaci fication left hemithorax consistent with large effusion and atelectasis. There has been progression of infiltrate changes right mid to lower lung field Chest CT (Admission): Moderately large left-sided effusion with left lower and to a lesser degree upper lobe atelectasis. Small right-sided effusion and minor right basilar atelectasis. Pulmonary venous congestive changes with ground- glass opacities. ID COnsulted (Dr. Rodriguez) Pulmonology Consulted (Dr. Hernandez) IR Consulted (Dr. Longoria), for Thoracentesis. Planned for Monday 03/26 Incentive Spirometery Q1 ProCal Ordered Meds: MucoMyst Q4H MAINOR DuoNebs Q4H MAINOR Tessalon Perles 100mg PO TID Zosyn 2.25 Q8H MAINOR (Renally Dosed) Started on 03/24/18 Vancomycin 1g Daily MAINOR (Renally Dosed) Started on 03/24/18 Tylenol PRN Lasix 40mg IVP BID CHF w/ normal EF ECHO (03/04/18): Grade II Psuodonormal filling dynamics, mild Pulml HTN, 60-65% EF EKG (Admission): NSR @ 92 BPM, No acute ST/T wave changes. BNP on Admission - 8470. CXR on Admission shows Pulm COngestion. 40mg Lasix Given in ED. Head of Bead elevated Strict Intake and Ouput Fluid/Salt Restriction Meds: Lasix 40mg IVP BID Metoprolol 25mg PO Daily CKD (Stage V) Est. GFR 17, Cr-2.7 on Admission Nephrology Consulted (Dr. Leach) No fluids due to CHF Renally Dose Medications HTN/CAD Meds: Amlodipine 10mg PO Daily Lasix 20 BID Metoprolol 25mg PO Daily Prasugren 10mg PO Daily Rosuvastatin 10mg PO HS HLD Meds: Fenofibrate 48mg PO Daily Rosuvastatin 10mg PO HS Hypothyroidism Meds: Levothyroxine 100mcg Daily Leukemia Patient gets ProCrit Injection every 14days Proph Lovenox (Renally Dosed) Heart Healthy Diet (2gm Na, 1500ml fluid Restriction, Renal) Florastor BID <Cherie Miguel V - Last Filed: 03/29/18 20:16> Results - Vital Signs Recent Vital Signs: Last Vital Signs Temp 98.1 F 03/29/18 17:00 Pulse 97 H 03/29/18 18:55 Resp 26 H 03/29/18 17:00 BP 136/68 03/29/18 17:00 Pulse Ox 94 L 03/29/18 17:00 - Labs Result Diagrams: 03/29/18 07:34 03/29/18 07:34 Labs: Laboratory Results - last 24 hr 03/28/18 03/29/18 03/29/18 21:08 06:31 07:34 WBC 28.9 H RBC 2.49 L Hgb 7.3 L Hct 22.5 L MCV 90.4 MCH 29.3 MCHC 32.4 L RDW 16.6 H Plt Count 125 L MPV 10.3 Neut % (Auto) 58.3 Lymph % (Auto) 9.3 L [place] % (Auto) 31.4 H Eos % (Auto) 0.8 Baso % (Auto) 0.2 Neut # (Auto) 16.8 H Lymph # (Auto) 2.7 [place] # (Auto) 9.0 H Eos # (Auto) 0.2 Baso # (Auto) 0.1 Neutrophils % (Manual) 58 Band Neutrophils % 2 Lymphocytes % (Manual) 12 L Monocytes % (Manual) 27 H Eosinophils % (Manual) 1 Nucleated RBC % 1 H Platelet Estimate Slightly decreased L Hypochromasia (manual) Slight Anisocytosis (manual) Slight PT INR APTT Sodium Potassium Chloride Carbon Dioxide Anion Gap BUN Creatinine Est GFR ( Amer) Est GFR (Non-Af Amer) POC Glucose (mg/dL) 143 H 106 Random Glucose Calcium Phosphorus Magnesium Total Bilirubin AST ALT Alkaline Phosphatase Total Protein Albumin Globulin Albumin/Globulin Ratio Random Vancomycin 03/29/18 03/29/18 03/29/18 07:34 07:34 11:10 WBC RBC Hgb Hct MCV MCH MCHC RDW Plt Count MPV Neut % (Auto) Lymph % (Auto) [place] % (Auto) Eos % (Auto) Baso % (Auto) Neut # (Auto) Lymph # (Auto) [place] # (Auto) Eos # (Auto) Baso # (Auto) Neutrophils % (Manual) Band Neutrophils % Lymphocytes % (Manual) Monocytes % (Manual) Eosinophils % (Manual) Nucleated RBC % Platelet Estimate Hypochromasia (manual) Anisocytosis (manual) PT 14.5 H INR 1.3 APTT 36 H Sodium 136 Potassium 4.2 Chloride 97 L Carbon Dioxide 27 Anion Gap 15 BUN 73 H Creatinine 4.1 H Est GFR ( Amer) 13 Est GFR (Non-Af Amer) 10 POC Glucose (mg/dL) Random Glucose 121 H Calcium 8.8 Phosphorus 5.7 H Magnesium 2.2 Total Bilirubin 0.7 AST 21 ALT 13 Alkaline Phosphatase 42 Total Protein 8.0 Albumin 3.5 Globulin 4.5 H Albumin/Globulin Ratio 0.8 L Random Vancomycin 19.7 03/29/18 11:40 WBC RBC Hgb Hct MCV MCH MCHC RDW Plt Count MPV Neut % (Auto) Lymph % (Auto) [place] % (Auto) Eos % (Auto) Baso % (Auto) Neut # (Auto) Lymph # (Auto) [place] # (Auto) Eos # (Auto) Baso # (Auto) Neutrophils % (Manual) Band Neutrophils % Lymphocytes % (Manual) Monocytes % (Manual) Eosinophils % (Manual) Nucleated RBC % Platelet Estimate Hypochromasia (manual) Anisocytosis (manual) PT INR APTT Sodium Potassium Chloride Carbon Dioxide Anion Gap BUN Creatinine Est GFR ( Amer) Est GFR (Non-Af Amer) POC Glucose (mg/dL) 136 H Random Glucose Calcium Phosphorus Magnesium Total Bilirubin AST ALT Alkaline Phosphatase Total Protein Albumin Globulin Albumin/Globulin Ratio Random Vancomycin Attending/Attestation - Attestation I have personally seen and examined this patient.: Yes I have fully participated in the care of the patient.: Yes I have reviewed all pertinent clinical information: Yes Notes (Text): This is late computer entry for 03/24/18. Patient seen, examined, and case discussed with remote medical coder. patient noted shortness of breathe at home with fatigue and tiredness. Patient brought in and accompanied with her daughter at bedside. Chest xray noted for venous congestion and opacification over the left side of chest. Patient order for CT Chest noted for large left sided effusion. Patient was recently discharge for similar complaints. Patient received IV abx to cover for pneumonia, and underwent thoracentesis with IR. Patient with known history of CLL, they have opted not for treatments with her heme-oncology but receives Procrit injections for her anemia. Patient with known history of chronic kidney dease, seen by nephrology as outpatient. We will consult ID for HCAP. Renally dose antibiotics. 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 Start nebulizer treatments and incentive spirometry. Assessment/Plan 1) Healthcare Associated Pneumonia w/ Pleural Effusion. * CXR (Admisison): Pulmonary venous congestive changes with near complete opacification left hemithorax consistent with large effusion and atelectasis. There has been progression of infiltrate changes right mid to lower lung field * Chest CT (Admission): Moderately large left-sided effusion with left lower and to a lesser degree upper lobe atelectasis. Small right-sided effusion and minor right basilar atelectasis. Pulmonary venous congestive changes with ground-glass opacities. * ID Connsulted (Dr. Rodriguez) * Pulmonology Consulted (Dr. Hernandez) * IR Consulted (Dr. Longoria), for Thoracentesis. Planned for Monday 03/26; fluid studies ordered * ProCal Ordered Meds: * MucoMyst Q4H MAINOR * DuoNebs Q4H MAINOR * Tessalon Perles 100mg PO TID * Zosyn 2.25 Q8H MAINOR (Renally Dosed) Started on 03/24/18 * Vancomycin 1g Daily MAINOR (Renally Dosed) Started on 03/24/18 * Tylenol PRN * Lasix 40mg IVP BID 2) Chronic CHF w/ normal EF * ECHO (03/04/18): Grade II Psuodonormal filling dynamics, mild Pulml HTN, 60- 65% EF * EKG (Admission): NSR @ 92 BPM, No acute ST/T wave changes. * BNP on Admission - 8470. CXR on Admission shows Pulm COngestion. * 40mg Lasix Given in ED. Patient is urinating * Head of Bead elevated * Strict Intake and Ouput * Fluid/Salt Restriction Meds: Lasix 40mg IVP BID Metoprolol 25mg PO Daily Prasugren 10mg PO Daily Rosuvastatin 10mg PO HS 3) history of chronic kidney disease * Est. GFR 17, Cr-2.7 on Admission * Nephrology Consulted (Dr. Leach) * Hold IV fluids given pulmonary venous congestion * Renally Dose Medications 4) Hypertension CAD Meds: Amlodipine 10mg PO Daily Lasix 20 BID Metoprolol 25mg PO Daily Prasugren 10mg PO Daily Rosuvastatin 10mg PO HS 5) Lipid Disorder Meds: Fenofibrate 48mg PO Daily Rosuvastatin 10mg PO HS 6) Hypothyroidism Meds: Levothyroxine 100mcg AM 7) CLL/ Leukemia * Patient gets ProCrit Injection every 14days from her personal hem-onc that does not come here 8) Proph * Lovenox (Renally Dosed) * Heart Healthy Diet (2gm Na, 1500ml fluid Restriction, Renal) * Florastor 250mg BID
--- NOTE | 2018-03-24 10:13 | CT ---
Date of service: 03/24/2018 PROCEDURE: CT Chest without contrast HISTORY: chf, pleural effusion COMPARISON: Comparison made with prior chest x-ray obtained earlier same day as well as CT chest 03/05/2018. TECHNIQUE: Contiguous axial images were obtained through the chest without intravenous contrast enhancement. Sagittal and coronal reconstructions were performed. Radiation dose: Total exam DLP = 333.62 mGy-cm. This CT exam was performed using one or more of the following dose reduction techniques: Automated exposure control, adjustment of the mA and/or kV according to patient size, and/or use of iterative reconstruction technique. FINDINGS: LUNGS: There is a moderately large left-sided effusion and left lower and left upper lobe atelectasis former greater than latter.. Small right-sided effusion. Pulmonary venous congestive changes with patchy ground-glass opacities. MEDIASTINUM: Unremarkable thoracic aorta. No aneurysm. Heart is enlarged. Main pulmonary artery unremarkable. No vascular congestion. No lymphadenopathy. There is aortic atherosclerotic calcification. PLEURA: As above no pneumothorax. BONES: Chronic compression fractures of the L1 and T12 segments. UPPER ABDOMEN: Grossly unremarkable. OTHER FINDINGS: None. IMPRESSION: Moderately large left-sided effusion with left lower and to a lesser degree upper lobe atelectasis. Small right-sided effusion and minor right basilar atelectasis. Pulmonary venous congestive changes with ground-glass opacities.. See above discussion for additional details and findings
[2018-03-24 10:32] LABS: BANDS 7 % (0-2); LYMPHOCYTE 12 % (20-40); METAMYELOCYTE 1 % (0-0); MONOCYTE 17 % (0-10); MYELOCYTE 2 % (0-0); NEUTROPHIL 61 % (50-75); TOTAL CELLS COUNTED 100
[2018-03-24 10:33] LABS: ANISOCYTOSIS SLIGHT; HYPOCHROMIC SLIGHT; OVALOCYTES SLIGHT; PLATELET ESTIMATE SLIGHTLY DECREASED (NORMAL)
[2018-03-24] MEDS ORDERED: Piperacill/Tazo 2.25gm in Dex 2.25 GM/50 ML BAG IVPB SCH ×2 (12:00→12:45)
[2018-03-24] MEDS ORDERED: Albuterol-Ipratrop 3 mg / 0.5 (3 ml) UD INH PRN (12:06)
[2018-03-24] MEDS ORDERED: guaiFENesin DM 200 mg-20 mg/10 ml UD PO PRN (12:39)
[2018-03-24] MEDS ORDERED: Piperacillin/Tazobact 3.375 gm 0 ML IVPB ONE (12:46)
[2018-03-24] MEDS: Metoprolol Succinate 25 mg XL Tab PO SCH (12:51)
[2018-03-24] MEDS: Albuterol-Ipratrop 3 mg / 0.5 (3 ml) UD INH SCH ×3 (13:01→23:03)
[2018-03-24] MEDS: Acetylcysteine 20% Inhal Soln (4ml) INH SCH ×3 (13:01→23:03)
[2018-03-24 13:04] LABS: ABG ALLEN TEST POS; ARTERIAL BLOOD GAS HCO3 29.9 mmol/L (21-28); ARTERIAL BLOOD GAS O2 SAT 94.8 % (95-98); ARTERIAL BLOOD GAS PCO2 40 mm/Hg (35-45); ARTERIAL BLOOD GAS PH 7.49 (7.35-7.45); ARTERIAL BLOOD GAS PO2 54 mm/Hg (80-100); ARTERIAL BLOOD GAS TCO2 31.7 mmol/L (22-28)
[2018-03-24] MEDS ORDERED: Albuterol-Ipratrop 3 mg / 0.5 (3 ml) UD ONE ×2 (13:09→16:22)
--- NOTE | 2018-03-24 14:41 | RAD ---
Date of service: 03/24/2018 HISTORY: chest pain COMPARISON: Comparison 03/15/2018 FINDINGS: LUNGS: Pulmonary venous congestive changes with near complete opacification left hemithorax with progressive infiltrate changes right mid to lower lung field PLEURA: No significant pleural effusion identified, no pneumothorax apparent. CARDIOVASCULAR: Mild aortic atherosclerotic calcification present. . Cardiomegaly. Vascular congestion. OSSEOUS STRUCTURES: No significant abnormalities. VISUALIZED UPPER ABDOMEN: Normal. OTHER FINDINGS: None. IMPRESSION: . Pulmonary venous congestive changes with near complete opacification left hemithorax consistent with large effusion and atelectasis. There has been progression of infiltrate changes right mid to lower lung field
[2018-03-24] MEDS: Vancomycin 1 gm/NS 200 ml 1 GM/200 ML BAG IVPB SCH (15:15)
--- NOTE | 2018-03-24 17:30 | CP.PCM.CON ---
History of Present Illness - History of Present Illness History of Present Illness: 82 yo female with complex Hx is admitted with dx of HCAP was treated recently with zmax/ zosyn will add Merrem to Vanco and d/c Zosyn pending cultures additional cultures and serologies sent Past Patient History - Infectious Disease Hx of Infectious Diseases: None - Tetanus Immunizations Tetanus Immunization: Unknown - Past Medical History & Family History Past Medical History?: Yes - Past Social History Smoking Status: Never Smoked - CARDIAC Hx Hypertension: Yes Hx Peripheral Edema: Yes - PULMONARY Hx Chronic Obstructive Pulmonary Disease (COPD): Yes Hx Pneumonia: Yes - NEUROLOGICAL Hx Neurological Disorder: No - HEENT Hx HEENT Problems: Yes Hx Cataracts: Yes Other/Comment: corneal replacement both eyes - RENAL Hx Chronic Kidney Disease: Yes Hx Kidney Stones: Yes - ENDOCRINE/METABOLIC Hx Hypothyroidism: Yes - HEMATOLOGICAL/ONCOLOGICAL Hx Anemia: Yes - INTEGUMENTARY Hx Dermatological Problems: No - MUSCULOSKELETAL/RHEUMATOLOGICAL Hx Arthritis: Yes Hx Osteoporosis: Yes - GASTROINTESTINAL Hx Gastritis: Yes - GENITOURINARY/GYNECOLOGICAL Hx Genitourinary Disorders: No - PSYCHIATRIC Hx Substance Use: No - SURGICAL HISTORY Hx Surgeries: Yes Other/Comment: vascular stents. bone marrow aspiration - ANESTHESIA Hx Anesthesia: Yes Hx Anesthesia Reactions: No Meds Allergies/Adverse Reactions: Allergies Allergy/AdvReac Type Severity Reaction Status Date / Time No Known Allergies Allergy Verified 03/19/17 06:06 - Medications Medications: Current Medications Acetaminophen (Tylenol 325mg Tab) 650 mg PO Q6 PRN PRN Reason: Fever >100.4 F Acetylcysteine (Acetylcysteine 20%) 4 ml INH Q4H [facility] Last Admin: 03/24/18 16:23 Dose: 4 ml Albuterol/Ipratropium (Duoneb 3 Mg/0.5 Mg (3 Ml) Ud) 3 ml INH Q4H [facility] Last Admin: 03/24/18 16:24 Dose: 3 ml Amlodipine Besylate (Norvasc) 10 mg PO DAILY [facility] Last Admin: 03/24/18 12:50 Dose: 10 mg Benzonatate (Tessalon Perles) 100 mg PO TID [facility] Last Admin: 03/24/18 15:43 Dose: 100 mg Enoxaparin Sodium (Lovenox) 30 mg SC DAILY [facility] Fenofibrate (Tricor) 48 mg PO DAILY [facility] Last Admin: 03/24/18 12:51 Dose: 48 mg Furosemide (Lasix) 40 mg IVP Q12H [facility] Vancomycin/Sodium Chloride (Vancomycin 1 Gm/Ns 200 Ml) 1 gm in 200 mls @ 133 mls/hr IVPB Q24H [facility]; Protocol Stop: 03/29/18 14:01 Last Admin: 03/24/18 15:15 Dose: 133 mls/hr Levothyroxine Sodium (Synthroid) 100 mcg PO DAILY@0630 [facility] Metoprolol Succinate (Toprol Xl) 25 mg PO DAILY [facility] Last Admin: 03/24/18 12:51 Dose: 25 mg Prasugrel (Effient) 10 mg PO DAILY [facility] Last Admin: 03/24/18 12:50 Dose: 10 mg Rosuvastatin Calcium (Crestor) 10 mg PO HS [facility] Saccharomyces Boulardii (Florastor) 250 mg PO BID [facility] Results - Vital Signs Recent Vital Signs: Last Vital Signs Temp 98.4 F 03/24/18 13:55 Pulse 91 H 03/24/18 13:55 Resp 23 03/24/18 15:36 BP 156/54 H 03/24/18 15:36 Pulse Ox 93 L 03/24/18 15:36 - Labs Result Diagrams: 03/24/18 08:02 03/24/18 08:02 Labs: Laboratory Results - last 24 hr 03/24/18 03/24/18 03/24/18 08:00 08:02 08:02 WBC 28.9 H RBC 3.17 L Hgb 9.4 L Hct 28.6 L MCV 90.1 MCH 29.5 MCHC 32.7 L RDW 16.6 H Plt Count 105 L MPV 9.7 Neut % (Auto) 60.3 Lymph % (Auto) 8.9 L [place] % (Auto) 30.0 H Eos % (Auto) 0.4 Baso % (Auto) 0.4 Neut # (Auto) 17.4 H Lymph # (Auto) 2.6 [place] # (Auto) 8.7 H Eos # (Auto) 0.1 Baso # (Auto) 0.1 Neutrophils % (Manual) 61 Band Neutrophils % 7 H Lymphocytes % (Manual) 12 L Monocytes % (Manual) 17 H Metamyelocytes % 1 H Myelocytes % 2 H Platelet Estimate Slightly decreased L Hypochromasia (manual) Slight Anisocytosis (manual) Slight Macrocytosis (manual) Slight Ovalocytes Slight PT 14.8 H INR 1.4 APTT 38 H Puncture Site pCO2 pO2 34 HCO3 ABG pH ABG Total CO2 ABG O2 Saturation ABG Base Excess Brayan Test ABG Potassium VBG pH 7.44 H VBG pCO2 44 VBG HCO3 28.0 VBG Total CO2 31.3 H VBG O2 Sat (Calc) 75.9 H VBG Base Excess 5.0 H VBG Potassium 3.3 L Sodium 139.0 Chloride 104.0 Glucose 117 H Lactate 1.0 Liter Flow Potassium Carbon Dioxide Anion Gap BUN Creatinine Est GFR ( Amer) Est GFR (Non-Af Amer) Random Glucose Calcium Total Bilirubin AST ALT Alkaline Phosphatase Troponin I NT-Pro-B Natriuret Pep Total Protein Albumin Globulin Albumin/Globulin Ratio Arterial Blood Potassium Venous Blood Potassium 3.3 L 03/24/18 03/24/18 08:02 12:56 WBC RBC Hgb Hct MCV MCH MCHC RDW Plt Count MPV Neut % (Auto) Lymph % (Auto) [place] % (Auto) Eos % (Auto) Baso % (Auto) Neut # (Auto) Lymph # (Auto) [place] # (Auto) Eos # (Auto) Baso # (Auto) Neutrophils % (Manual) Band Neutrophils % Lymphocytes % (Manual) Monocytes % (Manual) Metamyelocytes % Myelocytes % Platelet Estimate Hypochromasia (manual) Anisocytosis (manual) Macrocytosis (manual) Ovalocytes PT INR APTT Puncture Site Rra pCO2 40 pO2 54 L HCO3 29.9 H ABG pH 7.49 H ABG Total CO2 31.7 H ABG O2 Saturation 94.8 L ABG Base Excess 6.6 H Brayan Test Pos ABG Potassium 3.2 L VBG pH VBG pCO2 VBG HCO3 VBG Total CO2 VBG O2 Sat (Calc) VBG Base Excess VBG Potassium Sodium 139 140.0 Chloride 99 106.0 Glucose 89 Lactate 0.7 Liter Flow 3.0 Potassium 3.7 Carbon Dioxide 29 Anion Gap 15 BUN 43 H Creatinine 2.7 H Est GFR ( Amer) 20 Est GFR (Non-Af Amer) 17 Random Glucose 125 H Calcium 8.7 Total Bilirubin 0.8 AST 20 ALT 13 Alkaline Phosphatase 62 Troponin I 0.0180 NT-Pro-B Natriuret Pep 8470 H Total Protein 8.7 H Albumin 3.9 Globulin 4.8 H Albumin/Globulin Ratio 0.8 L Arterial Blood Potassium 3.2 L Venous Blood Potassium
[2018-03-24] MEDS: Saccharomyces Boulardi 250 mg Cap PO SCH (18:03)
[2018-03-24] MEDS: Meropenem 500 MG in Sodium Chloride 0.9% 100 ML IVPB SCH (18:07)
[2018-03-24 23:11] LABS: SQUAMOUS EPITHIAL 2 /hpf (0-5); URINE BACTERIA OCC (<OCC); URINE BILIRUBIN NEGATIVE (NEGATIVE); URINE BLOOD 2+ (NEGATIVE); URINE CLARITY Clear (Clear); URINE COLOR Yellow (YELLOW); URINE GLUCOSE (UA) NORMAL (Normal); URINE LEUKOCYTE ESTERASE NEG Leu/uL (Negative); URINE PROTEIN 1+ mg/dL (NEGATIVE); URINE UROBILINOGEN NORMAL mg/dL (0.2-1.0)
[2018-03-25] MEDS: Meropenem 500 MG in Sodium Chloride 0.9% 100 ML IVPB SCH ×3 (01:30→18:12)
[2018-03-25] MEDS: Levothyroxine 100 MCG TAB PO SCH (06:04)
[2018-03-25] MEDS: Albuterol-Ipratrop 3 mg / 0.5 (3 ml) UD INH SCH ×7 (08:15→23:22)
[2018-03-25] MEDS: Acetylcysteine 20% Inhal Soln (4ml) INH SCH ×5 (08:15→23:22)
[2018-03-25 09:06] LABS: BASO # 0.1 K/uL (0.0-0.2); BASO % 0.3 % (0.0-2.0); EOS # 0.1 K/uL (0.0-0.7); EOS % 0.5 % (0.0-4.0); HEMOGLOBIN 8.6 g/dL (11.0-16.0); LYMPH # 2.3 K/uL (1.0-4.3); LYMPH % 9.5 % (20.0-40.0); MEAN CELL VOLUME 90.5 fL (81.0-99.0); MEAN CORPUSCULAR HEMOGLOBIN 29.6 pg (27.0-31.0); MEAN CORPUSCULAR HGB CONC 32.7 g/dL (33.0-37.0); MONO # 5.9 K/uL (0.0-0.8); MONO % 24.4 % (0.0-10.0); NEUT # 15.9 K/uL (1.8-7.0); NEUT % 65.3 % (50.0-75.0); NRBC % 0.3 % (0.0-2.0); PLATELET COUNT 109 K/uL (130-400); RED CELL DISTRIBUTION WIDTH 16.7 % (11.5-14.5); WHITE BLOOD COUNT 24.4 K/uL (4.8-10.8)
[2018-03-25 09:23] LABS: ALB/GLOB RATIO 0.8 (1.0-2.1); ALBUMIN 3.6 g/dL (3.5-5.0); CALCIUM 8.3 mg/dl (8.6-10.4)
[2018-03-25] MEDS: Metoprolol Succinate 25 mg XL Tab PO SCH (09:38)
[2018-03-25] MEDS: Saccharomyces Boulardi 250 mg Cap PO SCH ×2 (09:39→18:13)
[2018-03-25] MEDS: Enoxaparin 30 mg Syringe SC SCH (09:45)
[2018-03-25 10:14] LABS: BANDS 5 % (0-2); BASOPHIL 5 % (0-2); LYMPHOCYTE 7 % (20-40); METAMYELOCYTE 2 % (0-0); MONOCYTE 20 % (0-10); MYELOCYTE 2 % (0-0); REACTIVE LYMPHOCYTES 7 % (0-0); TOTAL CELLS COUNTED 100
[2018-03-25 10:15] LABS: NEUTROPHIL 52 % (50-75)
[2018-03-25 10:25] LABS: ANISOCYTOSIS SLIGHT; GIANT PLATELETS PRESENT; MICROCYTOSIS SLIGHT; PLATELET ESTIMATE SLIGHTLY DECREASED (NORMAL); POIKILOCYTOSIS SLIGHT; STOMATOCYTES SLIGHT
[2018-03-25 10:26] LABS: HYPOCHROMIC SLIGHT; OVALOCYTES SLIGHT; POLYCHROMIC SLIGHT
[2018-03-25] MEDS: Vancomycin 1 gm/NS 200 ml 1 GM/200 ML BAG IVPB SCH (14:15)
--- NOTE | 2018-03-25 16:52 | CP.PCM.PN ---
"<Ernestine Segura - Last Filed: 03/25/18 16:50> Subjective - Date & Time of Evaluation Date of Evaluation: 03/25/18 Time of Evaluation: 10:50 - Subjective Subjective: Patient seen and examined at bedside. Daughter at bedside. No overnight events reported. She denies any fevers, chills, chest pain, abdominal pain, n/v/ changes in bowel habits or urinary symptoms. Her shortness of breath has improved. Objective - Vital Signs/Intake and Output Vital Signs (last 24 hours): Temp Pulse Resp BP Pulse Ox 97.7 F 105 H 20 146/65 95 03/25/18 16:07 03/25/18 16:07 03/25/18 16:07 03/25/18 16:07 03/25/18 16:07 Intake and Output: 03/25/18 03/25/18 06:59 18:59 Intake Total 220 Output Total 300 Balance -80 - Medications Medications: Current Medications Acetaminophen (Tylenol 325mg Tab) 650 mg PO Q6 PRN PRN Reason: Fever >100.4 F Last Admin: 03/24/18 22:05 Dose: 650 mg Acetylcysteine (Acetylcysteine 20%) 4 ml INH Q4H [facility] Last Admin: 03/25/18 16:00 Dose: 4 ml Albuterol/Ipratropium (Duoneb 3 Mg/0.5 Mg (3 Ml) Ud) 3 ml INH Q4H [facility] Last Admin: 03/25/18 16:00 Dose: 3 ml Amlodipine Besylate (Norvasc) 10 mg PO DAILY [facility] Last Admin: 03/25/18 09:38 Dose: 10 mg Benzonatate (Tessalon Perles) 100 mg PO TID [facility] Last Admin: 03/25/18 13:07 Dose: 100 mg Enoxaparin Sodium (Lovenox) 30 mg SC DAILY [facility] Last Admin: 03/25/18 09:45 Dose: 30 mg Fenofibrate (Tricor) 48 mg PO DAILY [facility] Last Admin: 03/25/18 13:07 Dose: 48 mg Furosemide (Lasix) 40 mg IVP Q12H [facility] Last Admin: 03/25/18 08:06 Dose: 40 mg Vancomycin/Sodium Chloride (Vancomycin 1 Gm/Ns 200 Ml) 1 gm in 200 mls @ 133 mls/hr IVPB Q24H [facility]; Protocol Stop: 03/29/18 14:01 Last Admin: 03/25/18 14:15 Dose: 133 mls/hr Meropenem 500 mg/ Sodium (Chloride) 100 mls @ 100 mls/hr IVPB Q8H [facility]; Protocol Last Admin: 03/25/18 09:39 Dose: 100 mls/hr Levothyroxine Sodium (Synthroid) 100 mcg PO DAILY@0630 [facility] Last Admin: 03/25/18 06:04 Dose: 100 mcg Metoprolol Succinate (Toprol Xl) 25 mg PO DAILY [facility] Last Admin: 03/25/18 09:38 Dose: 25 mg Prasugrel (Effient) 10 mg PO DAILY [facility] Last Admin: 03/25/18 09:38 Dose: 10 mg Rosuvastatin Calcium (Crestor) 10 mg PO HS [facility] Last Admin: 03/24/18 21:55 Dose: 10 mg Saccharomyces Boulardii (Florastor) 250 mg PO BID [facility] Last Admin: 03/25/18 09:39 Dose: 250 mg - Labs Labs: 03/25/18 08:47 03/25/18 08:47 PT 14.8 SECONDS (9.7-12.2) H 03/24/18 08:02 INR 1.4 03/24/18 08:02 APTT 38 SECONDS (21-34) H 03/24/18 08:02 - Constitutional Appears: Well, Non-toxic, No Acute Distress - Head Exam Head Exam: ATRAUMATIC, NORMAL INSPECTION, NORMOCEPHALIC - Eye Exam Eye Exam: EOMI, Normal appearance. absent: Scleral icterus - ENT Exam ENT Exam: Mucous Membranes Moist - Respiratory Exam Respiratory Exam: Clear to Ausculation Bilateral. absent: Accessory Muscle Use - Cardiovascular Exam Cardiovascular Exam: RRR, +S1, +S2 - GI/Abdominal Exam GI & Abdominal Exam: Soft, Normal Bowel Sounds. absent: Tenderness - Extremities Exam Extremities Exam: Pedal Edema (Trace, Improved. ), Tenderness (Anterior distal lowere Ext. tender to palpation. ) - Neurological Exam Neurological Exam: Alert, Awake, Oriented x3 - Psychiatric Exam Psychiatric exam: Normal Affect, Normal Mood - Skin Skin Exam: Dry, Intact, Normal Color, Warm Assessment and Plan - Assessment and Plan (Free Text) Assessment: 82 year old female with a PMHx of COPD, PVD CHF (w/ preserved E.F), HTN, Leukemia (not on tx), HLD, CKD, Hypothyrodism, and Pneumonia admitted for evaluation and treatment of hospital acquired pneumonia. CT scan on adission showed small b/l pleural effusions. Plan: Healthcare Associated Pneumonia w/ Pleural Effusion. CXR (Admisison): Pulmonary venous congestive changes with near complete opacification left hemithorax consistent with large effusion and atelectasis. There has been progression of infiltrate changes right mid to lower lung field Chest CT (Admission): Moderately large left-sided effusion with left lower and to a lesser degree upper lobe atelectasis. Small right-sided effusion and minor right basilar atelectasis. Pulmonary venous congestive changes with ground- glass opacities. ID COnsulted (Dr. Rodriguez) Pulmonology Consulted (Dr. Hernandez) IR Consulted (Dr. Longoria), for Thoracentesis. Planned for Monday 03/26 Incentive Spirometery Q1 ProCal - NEGATIVE |Blood Culture - NEGATIVE | Sputum Culture - NEGATIVE Meds: MucoMyst Q4H [facility] DuoNebs Q4H [facility] Tessalon Perles 100mg PO TID Meropenem 500mg Q8H [facility] per ID. Vancomycin 1g Daily [facility] (Renally Dosed) Started on 03/24/18 Tylenol PRN Lasix 40mg IVP BID CHF w/ normal EF ECHO (03/04/18): Grade II Psuodonormal filling dynamics, mild Pulml HTN, 60-65% EF EKG (Admission): NSR @ 92 BPM, No acute ST/T wave changes. BNP on Admission - 8470. CXR on Admission shows Pulm COngestion. 40mg Lasix Given in ED. Head of Bead elevated Strict Intake and Ouput Fluid/Salt Restriction Meds: Lasix 40mg IVP BID Metoprolol 25mg PO Daily Normocytic Anemia Ddx: CKD, Leukemia Anemia Workup Ordered Monitor H/H Meds: ProCrit [id number] (Last dose on 03/22/18) CKD (Stage V) Est. GFR 17, Cr-2.7 on Admission Nephrology Consulted (Dr. Leach) No fluids due to CHF Renally Dose Medications HTN/CAD Meds: Amlodipine 10mg PO Daily Lasix 20 BID Metoprolol 25mg PO Daily Prasugren 10mg PO Daily Rosuvastatin 10mg PO HS HLD Meds: Fenofibrate 48mg PO Daily Rosuvastatin 10mg PO HS Hypothyroidism Meds: Levothyroxine 100mcg Daily Leukemia Patient gets ProCrit Injection every 14days Proph Lovenox (Renally Dosed) Heart Healthy Diet (2gm Na, 1500ml fluid Restriction, Renal) Florastor BID <Liz Hammer - Last Filed: 04/06/18 18:10> Objective - Vital Signs/Intake and Output Vital Signs (last 24 hours): Temp Pulse Resp BP Pulse Ox 98.2 F 81 20 153/71 H 100 04/06/18 15:00 04/06/18 15:00 04/06/18 15:00 04/06/18 15:00 04/06/18 15:00 - Medications Medications: Current Medications Acetaminophen (Tylenol 325mg Tab) 650 mg PO Q6 PRN PRN Reason: Fever >100.4 F Last Admin: 04/06/18 05:56 Dose: 650 mg Acetylcysteine (Acetylcysteine 20%) 4 ml INH Q4H [facility] Last Admin: 04/06/18 15:38 Dose: 4 ml Albuterol/Ipratropium (Duoneb 3 Mg/0.5 Mg (3 Ml) Ud) 3 ml INH RQ4 [facility] Last Admin: 04/06/18 15:38 Dose: 3 ml Amlodipine Besylate (Norvasc) 10 mg PO DAILY [facility] Last Admin: 04/06/18 10:13 Dose: 10 mg Artificial Tears (Artificial Tears Refresh Celluvisc) 0 ml OU TID [facility] Last Admin: 04/06/18 17:00 Dose: Not Given Benzonatate (Tessalon Perles) 100 mg PO TID [facility] Last Admin: 04/06/18 16:59 Dose: 100 mg Calcium Acetate (Phoslo) 667 mg PO TID [facility] Last Admin: 04/06/18 16:59 Dose: 667 mg Dextrose (Dextrose 50% Inj) 0 ml IV STAT PRN; Protocol PRN Reason: Hypoglycemia Protocol Dextrose (Glutose 15) 0 gm PO ONCE PRN; Protocol PRN Reason: Hypoglycemia Protocol Docusate Sodium (Colace) 100 mg PO BID [facility] Last Admin: 04/06/18 16:59 Dose: 100 mg Enoxaparin Sodium (Lovenox) 30 mg SC DAILY [facility] Last Admin: 04/06/18 10:12 Dose: 30 mg Epoetin [place] (Procrit) [place] [facility] [place] Admin: 04/04/18 10:41 Dose: 10,000 unit Fluticasone Propionate (Flonase) 2 spr SANJEEV BID [facility] Last Admin: 04/06/18 17:00 Dose: Not Given Folic Acid (Folic Acid) 1 mg PO DAILY [facility] Last Admin: 04/06/18 11:00 Dose: Not Given Glucagon (Glucagen Diagnostic Kit) 0 mg IM STAT PRN; Protocol PRN Reason: Hypoglycemia Protocol Heparin Sodium (Porcine) (Heparin) 3,700 units [place] [facility] [place] Admin: 04/05/18 12:20 Dose: 3,700 units Hydralazine HCl (Apresoline) 25 mg PO BID [facility] Last Admin: 04/06/18 16:59 Dose: 25 mg Insulin Human Regular (Novolin R) [address] [facility]; Protocol Last Admin: 04/06/18 12:54 Dose: 2 units Levothyroxine Sodium (Synthroid) 100 mcg PO DAILY@0630 [facility] Last Admin: 04/06/18 05:57 Dose: 100 mcg Metoprolol Succinate (Toprol Xl) 50 mg PO DAILY [facility] Last Admin: 04/06/18 10:13 Dose: 50 mg Phenylephrine HCl (Steve-Synephrine 0.25% Nasal [place]) 0 ml NS Q12H PRN PRN Reason: Nasal congestion Prasugrel (Effient) 10 mg PO DAILY [facility] Last Admin: 04/06/18 10:13 Dose: 10 mg Rosuvastatin Calcium (Crestor) 10 mg PO HS [facility] Last Admin: 04/05/18 21:35 Dose: 10 mg Saccharomyces Boulardii (Florastor) 250 mg PO BID [facility] Last Admin: 04/06/18 16:59 Dose: 250 mg Sitagliptin Phosphate (Januvia) 25 mg PO DAILY [facility] Last Admin: 04/06/18 10:13 Dose: 25 mg - Labs Labs: 04/06/18 07:15 04/06/18 07:15 PT 14.5 SECONDS (9.7-12.2) H 03/29/18 11:10 INR 1.3 03/29/18 11:10 APTT 36 SECONDS (21-34) H 03/29/18 11:10 Attending/Attestation - Attestation I have personally seen and examined this patient.: Yes I have fully participated in the care of the patient.: Yes I have reviewed all pertinent clinical information, including history, physical exam and plan: Yes Notes (Text): patient was seen and examined spoke to her daughters at bedside assessment and the plan discussed with the resident in detail.I agree with the documentation"
--- NOTE | 2018-03-25 17:57 | CP.PCM.CON ---
History of Present Illness - History of Present Illness History of Present Illness: 82 yo female with complex Hx is admitted with dx of HCAP was treated recently with zmax/ zosyn presents with complains of worsening shortness of breath and a productive cough x 6 days. She denies any fevers, chills, chest pain, or palpitations. She used her albuterol inhaler and nebulizer for her symptoms with moderate relief. She denies any sick contacts. Patient recently treated for pneumonia & discharged from [facility] on 03/15/18. Patient states her cough is usually on after her nebulizer treatment. 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 Denies current or former use of alcohol, tobacco, and illicit drug use Review of Systems - Review of Systems All systems: reviewed and no additional remarkable complaints except - Constitutional Constitutional: As Per HPI - EENT Eyes: absent: As Per HPI, Blind Spots, Blurred Vision, Change in Vision, Decreased Night Vision, Diplopia, Discharge, Dry Eye, Exophthalmos, Floaters, Irritation, Itchy Eyes, Loss of Peripheral Vision, Pain, Photophobia, Requires Corrective Lenses, Sees Flashes, Spots in Vision, Tunnel Vision, Other Visual Disturbances, Loss of Vision, Other Ears: absent: As Per HPI, Decreased Hearing, Ear Discharge, Ear Pain, Tinnitus, Abnormal Hearing, Disequilibrium, Dizziness, Other Nose/Mouth/Throat: absent: As Per HPI, Epistaxis, Nasal Congestion, Nasal Discharge, Nasal Obstruction, Nasal Trauma, Nose Pain, Post Nasal Drip, Sinus Pain, Sinus Pressure, Bleeding Gums, Change in Voice, Dental Pain, Dry Mouth, Dysphagia, Halitosis, Hoarsness, Lip Swelling, Mouth Lesions, Mouth Pain, Odynophagia, Sore Throat, Throat Swelling, Tongue Swelling, Facial Pain, Neck Pain, Neck Mass, Other - Breasts Breasts: absent: As Per HPI, Change in Shape, Mass, Pain, Nipple Discharge, Nipple Inversion, Skin Changes, Swelling, Other - Cardiovascular Cardiovascular: As Per HPI - Respiratory Respiratory: As Per HPI - Gastrointestinal Gastrointestinal: absent: As Per HPI, Abdominal Pain, Belching, Bloating, Change in Bowel Habits, Change in Stool Character, Coffee Ground Emesis, Constipation, Cramping, Diarrhea, Dyspepsia, Dysphagia, Early Satiety, Excessive Flatus, Fecal Incontinence, Heartburn, Hematemesis, Hematochezia, Loose Stools, Melena, Nausea, Odynophagia, Temesmus, Vomiting, Other - Genitourinary Genitourinary: absent: As Per HPI, Change in Urinary Stream, Difficulty Urinating, Dysuria, Flank Pain, Hematuria, Pyuria, Nocturia, Urinary Incontinence, Urinary Frequency, Urinary Hesitance, Urinary Urgency, Voiding Freq/Small Amts, Freq UTI, Hx Renal/Bladder Calculi, Hx /Renal Surgery, Bladder Distension, Other - Reproductive: Female Reproductive:Female: absent: As Per HPI, Amenorrhea, Amenorrhea/ Control, Currently Menstual, Cycle <21 Days, Cycle >35 Days, Cycle Variable, Menses 1-7 Days, Menses >/= 8 Days, Menses Variable, Cycle > 4 Weeks Between, No Menses for 6 Months, Heavy Menses, Light Menses, Normal Menses, Spotting Between Cycles, S/P Hysterectomy, Menopausal, Post Menopausal, Premenarche, Abnormal Vaginal Bleeding, Dysmenorrhea, Dyspareunia, Genital Lesions, Genital Pruritis, Pelvic Pain, Prolapse Symptoms, Sexual Dysfunction, Vaginal Discharge, Vaginal Dryness, Vaginal Odor, Vaginal Pruritis, Other - Menstruation Menstruation: absent: As Per HPI, Amenorrhea, Amenorrhea/ Control, Currently Menstual, Cycle <21 Days, Cycle >35 Days, Cycle Variable, Menses 1-7 Days, Menses >/= 8 Days, Menses Variable, Cycle > 4 Weeks Between, No Menses for 6 Months, Heavy Menses, Light Menses, Normal Menses, Spotting Between Cycles, S/P Hysterectomy, Menopausal, Post Menopausal, Premenarche, Abnormal Vaginal Bleeding, Dysmenorrhea, Other - Musculoskeletal Musculoskeletal: absent: As Per HPI, Abnormal Gait, Arthralgias, Atrophy, Back Pain, Deformity, Joint Swelling, Limited Range of Motion, Loss of Height, Muscle Cramps, Muscle Weakness, Myalgias, Neck Pain, Numbness, Radiating Pain into Limb, Stiffness, Tingling, Other - Integumentary Integumentary: absent: As Per HPI, Acne, Alopecia, Bleeding Lesions, Change in Hair, Change in Nails, Change in Pigmentation, Changing Lesions, Dry Skin, Erythema, Furuncle, Hirsutism, Lesions, New Lesions, Non-Healing Lesions, P hotosensitivity, Pruritus, Rash, Skin Pain, Skin Ulcer, Sores, Striae, Swelling, Unusual Bruising, Wounds, Jaundice, Other - Neurological Neurological: absent: As Per HPI, Abnormal Gait, Abnormal Hearing, Abnormal Movements, Abnormal Speech, Behavioral Changes, Burning Sensations, Confusion, Convulsions, Disequilibrium, Dizziness, Numbness, Focal Weakness, Frequent Falls, Headaches, Lack of Coordination, Loss of Vision, Memory Loss, Paresthesias, Radicular Pain, Restless Legs, Sensory Deficit, Syncope, Tingling, Tremor, Vertigo, Weakness, Other Visual Disturbances, Other - Psychiatric Psychiatric: absent: As Per HPI, Abnormal Sleep Pattern, Anhedonia, Anxiety, Auditory Hallucinations, Behavioral Changes, Change in Appetite, Change in Libido, Confusion, Depression, Difficulty Concentrating, Hallucinations, Homic idal Ideation, Hopelessness, Irritability, Memory Loss, Mood Swings, Panic Attacks, Paranoia, Suicidal Ideation, Visual Hallucinations, Tactile Hallucinations, Other - Endocrine Endocrine: absent: As Per HPI, Change in Body Appearance, Change in Libido, Cold Intolorance, Deepening of Voice, Excessive Sweating, Fatigue, Flushing, Heat Intolorance, Increase in Ring/Shoe/Hat Size, Palpitations, Polydipsia, Polyphagia, Polyuria, Other - Hematologic/Lymphatic Hematologic: absent: As Per HPI, Easy Bleeding, Easy Bruising, Lymphadenopathy, Other Past Patient History - Infectious Disease Hx of Infectious Diseases: None - Tetanus Immunizations Tetanus Immunization: Unknown - Past Medical History & Family History Past Medical History?: Yes - Past Social History Smoking Status: Never Smoked - CARDIAC Hx Hypertension: Yes Hx Peripheral Edema: Yes - PULMONARY Hx Chronic Obstructive Pulmonary Disease (COPD): Yes Hx Pneumonia: Yes - NEUROLOGICAL Hx Neurological Disorder: No - HEENT Hx HEENT Problems: Yes Hx Cataracts: Yes Other/Comment: corneal replacement both eyes - RENAL Hx Chronic Kidney Disease: Yes Hx Kidney Stones: Yes - ENDOCRINE/METABOLIC Hx Hypothyroidism: Yes - HEMATOLOGICAL/ONCOLOGICAL Hx Anemia: Yes - INTEGUMENTARY Hx Dermatological Problems: No - MUSCULOSKELETAL/RHEUMATOLOGICAL Hx Arthritis: Yes Hx Osteoporosis: Yes - GASTROINTESTINAL Hx Gastritis: Yes - GENITOURINARY/GYNECOLOGICAL Hx Genitourinary Disorders: No - PSYCHIATRIC Hx Substance Use: No - SURGICAL HISTORY Hx Surgeries: Yes Other/Comment: vascular stents. bone marrow aspiration - ANESTHESIA Hx Anesthesia: Yes Hx Anesthesia Reactions: No Meds Allergies/Adverse Reactions: Allergies Allergy/AdvReac Type Severity Reaction Status Date / Time No Known Allergies Allergy Verified 03/19/17 06:06 - Medications Medications: Current Medications Acetaminophen (Tylenol 325mg Tab) 650 mg PO Q6 PRN PRN Reason: Fever >100.4 F Last Admin: 03/24/18 22:05 Dose: 650 mg Acetylcysteine (Acetylcysteine 20%) 4 ml INH Q4H [facility] Last Admin: 03/25/18 16:00 Dose: 4 ml Albuterol/Ipratropium (Duoneb 3 Mg/0.5 Mg (3 Ml) Ud) 3 ml INH Q4H [facility] Last Admin: 03/25/18 16:00 Dose: 3 ml Amlodipine Besylate (Norvasc) 10 mg PO DAILY [facility] Last Admin: 03/25/18 09:38 Dose: 10 mg Benzonatate (Tessalon Perles) 100 mg PO TID [facility] Last Admin: 03/25/18 13:07 Dose: 100 mg Enoxaparin Sodium (Lovenox) 30 mg SC DAILY [facility] Last Admin: 03/25/18 09:45 Dose: 30 mg Fenofibrate (Tricor) 48 mg PO DAILY [facility] Last Admin: 03/25/18 13:07 Dose: 48 mg Furosemide (Lasix) 40 mg IVP Q12H [facility] Last Admin: 03/25/18 08:06 Dose: 40 mg Vancomycin/Sodium Chloride (Vancomycin 1 Gm/Ns 200 Ml) 1 gm in 200 mls @ 133 mls/hr IVPB Q24H [facility]; Protocol Stop: 03/29/18 14:01 Last Admin: 03/25/18 14:15 Dose: 133 mls/hr Meropenem 500 mg/ Sodium (Chloride) 100 mls @ 100 mls/hr IVPB Q8H [facility]; Protocol Last Admin: 11/11/18 09:39 Dose: 100 mls/hr Levothyroxine Sodium (Synthroid) 100 mcg PO DAILY@0630 [facility] Last Admin: 03/25/18 06:04 Dose: 100 mcg Metoprolol Succinate (Toprol Xl) 25 mg PO DAILY [facility] Last Admin: 03/25/18 09:38 Dose: 25 mg Prasugrel (Effient) 10 mg PO DAILY [facility] Last Admin: 03/25/18 09:38 Dose: 10 mg Rosuvastatin Calcium (Crestor) 10 mg PO HS [facility] Last Admin: 03/24/18 21:55 Dose: 10 mg Saccharomyces Boulardii (Florastor) 250 mg PO BID [facility] Last Admin: 03/25/18 09:39 Dose: 250 mg Physical Exam - Constitutional Appears: Non-toxic, Chronically Ill - Head Exam Head Exam: NORMOCEPHALIC - Eye Exam Eye Exam: PERRL. absent: Scleral icterus - ENT Exam ENT Exam: Mucous Membranes Dry, Normal External Ear Exam - Neck Exam Neck exam: Negative for: Lymphadenopathy - Respiratory Exam Respiratory Exam: Decreased Breath Sounds, Prolonged Expiratory Phase, Rhonchi - Cardiovascular Exam Cardiovascular Exam: REGULAR RHYTHM, +S1, +S2 - GI/Abdominal Exam GI & Abdominal Exam: Diminished Bowel Sounds, Soft. absent: Tenderness - Rectal Exam Rectal Exam: Deferred - Exam Exam: NORMAL INSPECTION - Extremities Exam Extremities exam: Positive for: pedal pulses present. Negative for: calf tenderness, joint swelling, pedal edema, tenderness - Back Exam Back exam: absent: CVA tenderness (L), CVA tenderness (R) - Neurological Exam Neurological exam: Alert, CN II-XII Intact, Oriented x3, Reflexes Normal - Psychiatric Exam Psychiatric exam: Normal Mood - Skin Skin Exam: Dry Results - Vital Signs Recent Vital Signs: Last Vital Signs Temp 97.7 F 03/25/18 16:07 Pulse 105 H 03/25/18 16:07 Resp 20 03/25/18 16:07 BP 146/65 03/25/18 16:07 Pulse Ox 95 03/25/18 16:07 - Labs Result Diagrams: 03/25/18 08:47 03/25/18 08:47 Labs: Laboratory Results - last 24 hr 03/24/18 03/24/18 03/24/18 16:37 19:39 23:01 WBC RBC Hgb Hct MCV MCH MCHC RDW Plt Count MPV Neut % (Auto) Lymph % (Auto) [place] % (Auto) Eos % (Auto) Baso % (Auto) Neut # (Auto) Lymph # (Auto) [place] # (Auto) Eos # (Auto) Baso # (Auto) Neutrophils % (Manual) Band Neutrophils % Lymphocytes % (Manual) Reactive Lymphs % Monocytes % (Manual) Basophils % (Manual) Metamyelocytes % Myelocytes % Platelet Estimate Giant Platelets Polychromasia Hypochromasia (manual) Poikilocytosis (manual Anisocytosis (manual) Microcytosis (manual) Macrocytosis (manual) Ovalocytes Stomatocytes Sodium Potassium Chloride Carbon Dioxide Anion Gap BUN Creatinine Est GFR ( Amer) Est GFR (Non-Af Amer) Random Glucose Calcium Phosphorus Magnesium Total Bilirubin AST ALT Alkaline Phosphatase Total Protein Albumin Globulin Albumin/Globulin Ratio Procalcitonin < 0.05 L Urine Color Yellow Urine Clarity Clear Urine pH 5.0 Ur Specific [place] 1.013 Urine Protein 1+ H Urine Glucose (UA) Normal Urine Ketones Negative Urine Blood 2+ H Urine Nitrate Negative Urine Bilirubin Negative Urine Urobilinogen Normal Ur Leukocyte Esterase Neg Urine WBC (Auto) 2 Urine RBC (Auto) 48 H Ur Squamous Epith Cells 2 Urine Bacteria Occ H Ur L.pneumophila Ag Mycoplasma pneumon IgM Negative 03/25/18 03/25/18 03/25/18 05:41 08:47 08:47 WBC 24.4 H RBC 2.90 L Hgb 8.6 L Hct 26.3 L MCV 90.5 MCH 29.6 MCHC 32.7 L RDW 16.7 H Plt Count 109 L MPV 10.0 Neut % (Auto) 65.3 Lymph % (Auto) 9.5 L [place] % (Auto) 24.4 H Eos % (Auto) 0.5 Baso % (Auto) 0.3 Neut # (Auto) 15.9 H Lymph # (Auto) 2.3 [place] # (Auto) 5.9 H Eos # (Auto) 0.1 Baso # (Auto) 0.1 Neutrophils % (Manual) 52 Band Neutrophils % 5 H Lymphocytes % (Manual) 7 L Reactive Lymphs % 7 H Monocytes % (Manual) 20 H Basophils % (Manual) 5 H Metamyelocytes % 2 H Myelocytes % 2 H Platelet Estimate Slightly decreased L [place] Platelets Present Polychromasia Slight Hypochromasia (manual) Slight Poikilocytosis (manual Slight Anisocytosis (manual) Slight Microcytosis (manual) Slight Macrocytosis (manual) Slight Ovalocytes Slight Stomatocytes Slight Sodium 139 Potassium 3.7 Chloride 100 Carbon Dioxide 30 Anion Gap 13 BUN 44 H Creatinine 2.8 H Est GFR ( Amer) 20 Est GFR (Non-Af Amer) 16 Random Glucose 151 H Calcium 8.3 L Phosphorus 4.1 Magnesium 2.3 Total Bilirubin 0.7 AST 17 ALT 11 Alkaline Phosphatase 49 Total Protein 7.9 Albumin 3.6 Globulin 4.3 H Albumin/Globulin Ratio 0.8 L Procalcitonin Urine Color Urine Clarity Urine pH Ur Specific [place] Urine Protein Urine Glucose (UA) Urine Ketones Urine Blood Urine Nitrate Urine Bilirubin Urine Urobilinogen Ur Leukocyte Esterase Urine WBC (Auto) Urine RBC (Auto) Ur Squamous Epith Cells Urine Bacteria Ur L.pneumophila Ag Negative Mycoplasma pneumon IgM Assessment & Plan (1) CHF (congestive heart failure) Status: Acute (2) Leukocytosis Status: Acute (3) Pleural effusion Status: Acute (4) LUCRECIA (acute kidney injury) Status: Acute (5) Pneumonia Status: Acute - Assessment and Plan (Free Text) Assessment: await cultures, echo, thoracentesis will review old chart Plan: clinically improved on iv antibiotic rx
[2018-03-26] MEDS: Meropenem 500 MG in Sodium Chloride 0.9% 100 ML IVPB SCH ×3 (01:33→17:29)
[2018-03-26] MEDS ORDERED: Glucagon Recombinant 1 mg Inj IM PRN (02:26)
[2018-03-26] MEDS ORDERED: Dextrose 50% SYRINGE Inj (50 ml) IV PRN (02:26)
[2018-03-26] MEDS: Acetylcysteine 20% Inhal Soln (4ml) INH SCH ×5 (03:37→20:21)
[2018-03-26] MEDS: Albuterol-Ipratrop 3 mg / 0.5 (3 ml) UD INH SCH ×5 (03:37→20:21)
[2018-03-26] MEDS: Levothyroxine 100 MCG TAB PO SCH (05:40)
[2018-03-26 07:24] LABS: BASO # 0.2 K/uL (0.0-0.2); BASO % 0.7 % (0.0-2.0); EOS # 0.2 K/uL (0.0-0.7); EOS % 0.8 % (0.0-4.0); HEMOGLOBIN 8.3 g/dL (11.0-16.0); LYMPH # 2.6 K/uL (1.0-4.3); LYMPH % 10.8 % (20.0-40.0); MEAN CELL VOLUME 90.9 fL (81.0-99.0); MEAN CORPUSCULAR HEMOGLOBIN 29.7 pg (27.0-31.0); MEAN CORPUSCULAR HGB CONC 32.7 g/dL (33.0-37.0); MONO # 6.2 K/uL (0.0-0.8); MONO % 25.6 % (0.0-10.0); NEUT % 62.1 % (50.0-75.0); NRBC % 1.1 % (0.0-2.0); PLATELET COUNT 113 K/uL (130-400); RBC 2.78 Mil/uL (3.80-5.20); RED CELL DISTRIBUTION WIDTH 16.8 % (11.5-14.5); WHITE BLOOD COUNT 24.2 K/uL (4.8-10.8)
--- NOTE | 2018-03-26 07:24 | CP.PCM.PN ---
<Emile Seals - Last Filed: 03/26/18 20:55> Subjective - Date & Time of Evaluation Date of Evaluation: 03/26/18 Time of Evaluation: 07:24 - Subjective Subjective: Progress note for Hospitalist service Patient seen and examined at bedside. She states that she continues to feel short of breath with chest tightness, especially after Duoneb treatment this morning. Patient was scheduled for thoracentesis later today. She denies fevers, abdominal pain, nausea, vomiting, diarrhea, constipation, dysuria, leg pain. Objective - Vital Signs/Intake and Output Vital Signs (last 24 hours): Temp Pulse Resp BP Pulse Ox 98.1 F 91 H 20 146/64 95 03/26/18 00:00 03/26/18 03:34 03/26/18 00:00 03/26/18 00:00 03/26/18 00:00 Intake and Output: 03/26/18 03/26/18 06:59 18:59 Intake Total 220 Output Total 300 Balance -80 - Medications Medications: Current Medications Acetaminophen (Tylenol 325mg Tab) 650 mg PO Q6 PRN PRN Reason: Fever >100.4 F Last Admin: 03/25/18 19:39 Dose: 650 mg Acetylcysteine (Acetylcysteine 20%) 4 ml INH Q4H [facility] Last Admin: 03/26/18 03:37 Dose: Not Given Albuterol/Ipratropium (Duoneb 3 Mg/0.5 Mg (3 Ml) Ud) 3 ml INH Q4H [facility] Last Admin: 03/26/18 03:37 Dose: Not Given Amlodipine Besylate (Norvasc) 10 mg PO DAILY [facility] Last Admin: 03/25/18 09:38 Dose: 10 mg Benzonatate (Tessalon Perles) 100 mg PO TID [facility] Last Admin: 03/25/18 18:13 Dose: 100 mg Dextrose (Dextrose 50% Inj) 0 ml IV STAT PRN; Protocol PRN Reason: Hypoglycemia Protocol Dextrose (Glutose 15) 0 gm PO ONCE PRN; Protocol PRN Reason: Hypoglycemia Protocol Enoxaparin Sodium (Lovenox) 30 mg SC DAILY [facility] Last Admin: 03/25/18 09:45 Dose: 30 mg Fenofibrate (Tricor) 48 mg PO DAILY [facility] Last Admin: 03/25/18 13:07 Dose: 48 mg Furosemide (Lasix) 40 mg IVP Q12H [facility] Last Admin: 03/25/18 19:40 Dose: 40 mg Glucagon (Glucagen Diagnostic Kit) 0 mg IM STAT PRN; Protocol PRN Reason: Hypoglycemia Protocol Vancomycin/Sodium Chloride (Vancomycin 1 Gm/Ns 200 Ml) 1 gm in 200 mls @ 133 mls/hr IVPB Q24H [facility]; Protocol Stop: 03/29/18 14:01 Last Admin: 03/25/18 14:15 Dose: 133 mls/hr Meropenem 500 mg/ Sodium (Chloride) 100 mls @ 100 mls/hr IVPB Q8H [facility]; Protocol Last Admin: 03/26/18 01:33 Dose: 100 mls/hr Dextrose (Dextrose 5% In Water 1000 Ml) 1,000 mls @ 0 mls/hr IV .Q0M PRN; Protocol PRN Reason: Hypoglycemia Protocol Insulin Human Regular (Novolin R) 0 unit SC ACHS [facility]; Protocol Levothyroxine Sodium (Synthroid) 100 mcg PO DAILY@0630 [facility] Last Admin: 03/26/18 05:40 Dose: 100 mcg Metoprolol Succinate (Toprol Xl) 25 mg PO DAILY [facility] Last Admin: 03/25/18 09:38 Dose: 25 mg Prasugrel (Effient) 10 mg PO DAILY [facility] Last Admin: 03/25/18 09:38 Dose: 10 mg Rosuvastatin Calcium (Crestor) 10 mg PO HS [facility] Last Admin: 03/25/18 22:10 Dose: 10 mg Saccharomyces Boulardii (Florastor) 250 mg PO BID [facility] Last Admin: 03/25/18 18:13 Dose: 250 mg Sitagliptin Phosphate (Januvia) 25 mg PO DAILY [facility] - Labs Labs: 03/25/18 08:47 03/25/18 08:47 PT 14.8 SECONDS (9.7-12.2) H 03/24/18 08:02 INR 1.4 03/24/18 08:02 APTT 38 SECONDS (21-34) H 03/24/18 08:02 - Constitutional Appears: Other (Patient appears short of breath) - Head Exam Head Exam: ATRAUMATIC, NORMOCEPHALIC - Eye Exam Eye Exam: EOMI - ENT Exam ENT Exam: Mucous Membranes Moist - Neck Exam Neck Exam: Full ROM - Respiratory Exam Respiratory Exam: Decreased Breath Sounds, Rales (Left bases). absent: Rhonchi, Stridor - Cardiovascular Exam Cardiovascular Exam: REGULAR RHYTHM, +S1, +S2 - GI/Abdominal Exam GI & Abdominal Exam: Soft, Normal Bowel Sounds. absent: Firm, Guarding, Rigid, Tenderness, Organomegaly - Extremities Exam Extremities Exam: absent: Calf Tenderness, Pedal Edema, Tenderness - Neurological Exam Neurological Exam: Alert, Awake, Oriented x3 - Psychiatric Exam Psychiatric exam: Normal Affect, Normal Mood - Skin Skin Exam: Dry, Intact, Warm Assessment and Plan - Assessment and Plan (Free Text) Plan: Assessment: 82 year old female with a PMHx of COPD, PVD CHF (w/ preserved E.F), HTN, Leukemia (not on tx), HLD, CKD, Hypothyrodism, and Pneumonia admitted for evaluation and treatment of hospital acquired pneumonia. CT scan on admission showed small b/l pleural effusions. Plan: Healthcare Associated Pneumonia w/ Pleural Effusion. CXR : Pulmonary venous congestive changes with near complete opacification left hemithorax consistent with large effusion and atelectasis. There has been progression of infiltrate changes right mid to lower lung field Chest CT: Moderately large left-sided effusion with left lower and to a lesser degree upper lobe atelectasis. Small right-sided effusion and minor right basilar atelectasis. Pulmonary venous congestive changes with ground-glass opacities. ID Consulted Dr. Rodriguez, help appreciated Pulmonology Consulted Dr. Hernandez, help appreciated IR Consulted (Dr. Longoria), for Thoracentesis. Patient had thoracentesis on 03/26, with 500cc fluid removed. follow up on fluid analysis. F/u repeat CXR tomorrow Incentive Spirometery Q1 ProCal negative Blood Culture - neg x48 hours Sputum Culture - normal oral rossi Meds: MucoMyst Q4H [facility] DuoNebs Q4H [facility] Tessalon Perles 100mg PO TID Meropenem 500mg Q8H [facility] per ID. Vancomycin 1g Daily [facility] (Renally Dosed) Started on 03/24/18 Tylenol PRN Lasix 40mg IVP BID f/u random vanco level tomorrow CHF w/ normal EF ECHO (03/04/18): Grade II Pseudonormal filling dynamics, mild Pulml HTN, 60-65% EF EKG : NSR @ 92 BPM, No acute ST/T wave changes. BNP on Admission - 8470. CXR on Admission shows Pulm Congestion. 40mg Lasix Given in ED. Head of Bead elevated Strict Intake and Ouput Fluid/Salt Restriction Meds: Lasix 40mg IVP BID Metoprolol 25mg PO Daily Normocytic Anemia Ddx: CKD, Leukemia Anemia Workup Ordered Monitor H/H Meds: ProCrit [id number] (Last dose on 03/22/18) Folic acid 1mg PO daily CKD (Stage V) Est. GFR 17, Cr-2.7 on Admission Nephrology Consulted (Dr. Leach) No fluids due to CHF Renally Dose Medications HTN/CAD Meds: Amlodipine 10mg PO Daily Lasix 20 BID Metoprolol 25mg PO Daily Prasugrel 10mg PO Daily Rosuvastatin 10mg PO HS HLD Meds: Fenofibrate 48mg PO Daily Rosuvastatin 10mg PO HS Hypothyroidism Meds: Levothyroxine 100mcg Daily Type 2DM Januvia 25mg PO daily [facility] Leukemia Patient gets ProCrit Injection every 14days Proph Lovenox (Renally Dosed) Heart Healthy Diet (2gm Na, 1500ml fluid Restriction, Renal) Florastor BID PT/OT Aspiration precauations: keep bed elevated to 30 degrees. Incentive spirometer Q1 hr Case discussed with Dr. Myriam Seals <Cherie Miguel V - Last Filed: 03/29/18 20:20> Objective - Vital Signs/Intake and Output Vital Signs (last 24 hours): Temp Pulse Resp BP Pulse Ox 98.1 F 97 H 26 H 136/68 94 L 03/29/18 17:00 03/29/18 18:55 03/29/18 17:00 03/29/18 17:00 03/29/18 17:00 Intake and Output: 03/29/18 03/30/18 18:59 06:59 Intake Total 329 Balance 329 - Medications Medications: Current Medications Acetaminophen (Tylenol 325mg Tab) 650 mg PO Q6 PRN PRN Reason: Fever >100.4 F Last Admin: 03/29/18 05:59 Dose: 650 mg Acetylcysteine (Acetylcysteine 20%) 4 ml INH Q4H [facility] Last Admin: 03/29/18 17:28 Dose: 4 ml Albuterol/Ipratropium (Duoneb 3 Mg/0.5 Mg (3 Ml) Ud) 3 ml INH Q4H [facility] Last Admin: 03/29/18 17:27 Dose: 3 ml Amlodipine Besylate (Norvasc) 10 mg PO DAILY [facility] Last Admin: 03/29/18 10:29 Dose: 10 mg Benzonatate (Tessalon Perles) 100 mg PO TID [facility] Last Admin: 03/29/18 18:22 Dose: Not Given Calcium Acetate (Phoslo) 667 mg PO TID [facility] Last Admin: 03/29/18 18:21 Dose: Not Given Dextrose (Dextrose 50% Inj) 0 ml IV STAT PRN; Protocol PRN Reason: Hypoglycemia Protocol Dextrose (Glutose 15) 0 gm PO ONCE PRN; Protocol PRN Reason: Hypoglycemia Protocol Fenofibrate (Tricor) 48 mg PO DAILY [facility] Last Admin: 03/29/18 10:30 Dose: 48 mg Folic Acid (Folic Acid) 1 mg PO DAILY [facility] Last Admin: 03/29/18 10:29 Dose: 1 mg Furosemide (Lasix) 20 mg IVP Q12H [facility] Last Admin: 03/29/18 13:00 Dose: 20 mg Glucagon (Glucagen Diagnostic Kit) 0 mg IM STAT PRN; Protocol PRN Reason: Hypoglycemia Protocol Meropenem 500 mg/ Sodium (Chloride) 100 mls @ 100 mls/hr IVPB Q8H [facility]; Protocol Last Admin: 03/29/18 14:50 Dose: 100 mls Sodium Chloride (Sodium Chloride 0.9%) 1,000 mls @ 50 mls/hr IV .Q20H [facility] Insulin Human Regular (Novolin R) 0 unit SC ACHS [facility]; Protocol Last Admin: 03/29/18 17:49 Dose: Not Given Levothyroxine Sodium (Synthroid) 100 mcg PO DAILY@0630 [facility] Last Admin: 03/29/18 05:38 Dose: 100 mcg Metolazone (Zaroxolyn) 5 mg PO DAILY [facility] Last Admin: 03/29/18 11:00 Dose: 5 mg Metoprolol Succinate (Toprol Xl) 25 mg PO DAILY [facility] Last Admin: 03/29/18 10:30 Dose: 25 mg Rosuvastatin Calcium (Crestor) 10 mg PO HS [facility] Last Admin: 03/28/18 21:11 Dose: 10 mg Saccharomyces Boulardii (Florastor) 250 mg PO BID [facility] Last Admin: 03/29/18 18:21 Dose: Not Given Sitagliptin Phosphate (Januvia) 25 mg PO DAILY [facility] Last Admin: 03/29/18 10:29 Dose: 25 mg - Labs Labs: 03/29/18 07:34 03/29/18 07:34 PT 14.5 SECONDS (9.7-12.2) H 03/29/18 11:10 INR 1.3 03/29/18 11:10 APTT 36 SECONDS (21-34) H 03/29/18 11:10 Attending/Attestation - Attestation I have personally seen and examined this patient.: Yes I have fully participated in the care of the patient.: Yes I have reviewed all pertinent clinical information, including history, physical exam and plan: Yes Notes (Text): This is late computer entry for 03/26/18. patient seen, examined and case discussed with day-time resident. patient seen this afternoon with son, 2 daughters at bedside. Patient reports breathing at bedside is better. She has completed thoracentesis this morning. About 500cc removed by IR. We will follow-up fluid studies. patient offered OMT, noninvasive soft tissue techniques to help improve work of breathing and increase respiratory excursion to optimize breathing. Patient is amenable to treatment no expected adverse outcomes. Demonstrated at bedside. Patient to continue IV abx to cover for pneumonia while on Lasix for diuresis. Consult PT/OT eval for conditioning.
[2018-03-26] MEDS: (Novolin R) Insulin Human Regular 100 units/ml vial SC SCH ×3 (07:45→17:15)
[2018-03-26 07:52] LABS: IRON 85 ug/dL (37-170)
[2018-03-26 08:01] LABS: % IRON SATURATION 46 (20-55); TOTAL IRON BINDING CAPACITY 185 ug/dL (250-450)
[2018-03-26 08:12] LABS: ALB/GLOB RATIO 0.8 (1.0-2.1); ALBUMIN 3.4 g/dL (3.5-5.0); CALCIUM 8.3 mg/dl (8.6-10.4)
[2018-03-26 08:57] LABS: FOLATE 9.3 ng/mL
[2018-03-26 08:58] LABS: ANISOCYTOSIS SLIGHT; BANDS 1 % (0-2); BASOPHIL 1 % (0-2); HYPOCHROMIC SLIGHT; LYMPHOCYTE 13 % (20-40); MONOCYTE 18 % (0-10); MYELOCYTE 2 % (0-0); NEUTROPHIL 65 % (50-75); PLATELET ESTIMATE SLIGHTLY DECREASED (NORMAL); POIKILOCYTOSIS SLIGHT; TOTAL CELLS COUNTED 100
[2018-03-26 08:59] LABS: POLYCHROMIC SLIGHT
[2018-03-26] MEDS: Saccharomyces Boulardi 250 mg Cap PO SCH ×2 (09:34→17:30)
[2018-03-26] MEDS: Metoprolol Succinate 25 mg XL Tab PO SCH (09:36)
[2018-03-26] MEDS: Enoxaparin 30 mg Syringe SC SCH (09:48)
--- NOTE | 2018-03-26 10:31 | CP.PCM.CON ---
History of Present Illness - History of Present Illness History of Present Illness: Mrs. Bill is an 82 year old female with a PMHx of COPD, PVD CHF (w/ preserved E.F), HTN, Leukemia (not on tx), HLD, CKD, Hypothyrodism, and Pneumonia presents with complains of worsening shortness of breath and a productive cough x 6 days. She denies any fevers, chills, chest pain, or palpitations. She used her albuterol inhaler and nebulizer for her symptoms with moderate relief. She denies any sick contacts. Patient recently treated for pneumonia & discharged from [facility] on 03/[facility]/18. Patient states her cough is usually on after her nebulizer treatment. CT chest revealed lt sided large effusion and pulmonary congestion, pt currently on lasix 40mg iv twice a day Last echo 03/01 showed preserved EF Past Medical History: DM, HTN, HLD, PVD, CKD, COPD, hypothyroidism, anemia, kidney stones, pneumonia Past Surgical History: cardiac cath in January 2017 due to elevated enzymes, 3 stents placed in leg Medications: Per MAR Allergies- NKDA soc hx: no toxic habits family hx: non contributary Review of Systems - Review of Systems All systems: reviewed and no additional remarkable complaints except (as per hpi) Past Patient History - Infectious Disease Hx of Infectious Diseases: None - Tetanus Immunizations Tetanus Immunization: Unknown - Past Medical History & Family History Past Medical History?: Yes - Past Social History Smoking Status: Never Smoked - CARDIAC Hx Hypertension: Yes Hx Peripheral Edema: Yes - PULMONARY Hx Chronic Obstructive Pulmonary Disease (COPD): Yes Hx Pneumonia: Yes - NEUROLOGICAL Hx Neurological Disorder: No - HEENT Hx HEENT Problems: Yes Hx Cataracts: Yes Other/Comment: corneal replacement both eyes - RENAL Hx Chronic Kidney Disease: Yes Hx Kidney Stones: Yes - ENDOCRINE/METABOLIC Hx Hypothyroidism: Yes - HEMATOLOGICAL/ONCOLOGICAL Hx Anemia: Yes - INTEGUMENTARY Hx Dermatological Problems: No - MUSCULOSKELETAL/RHEUMATOLOGICAL Hx Arthritis: Yes Hx Osteoporosis: Yes - GASTROINTESTINAL Hx Gastritis: Yes - GENITOURINARY/GYNECOLOGICAL Hx Genitourinary Disorders: No - PSYCHIATRIC Hx Substance Use: No - SURGICAL HISTORY Hx Surgeries: Yes Other/Comment: vascular stents. bone marrow aspiration - ANESTHESIA Hx Anesthesia: Yes Hx Anesthesia Reactions: No Meds Allergies/Adverse Reactions: Allergies Allergy/AdvReac Type Severity Reaction Status Date / Time No Known Allergies Allergy Verified 03/19/17 06:06 - Medications Medications: Current Medications Acetaminophen (Tylenol 325mg Tab) 650 mg PO Q6 PRN PRN Reason: Fever >100.4 F Last Admin: 03/25/18 19:39 Dose: 650 mg Acetylcysteine (Acetylcysteine 20%) 4 ml INH Q4H [facility] Last Admin: 03/26/18 08:03 Dose: 4 ml Albuterol/Ipratropium (Duoneb 3 Mg/0.5 Mg (3 Ml) Ud) 3 ml INH Q4H [facility] Last Admin: 03/26/18 08:02 Dose: 3 ml Amlodipine Besylate (Norvasc) 10 mg PO DAILY [facility] Last Admin: 03/26/18 09:35 Dose: 10 mg Benzonatate (Tessalon Perles) 100 mg PO TID [facility] Last Admin: 03/26/18 09:35 Dose: 100 mg Dextrose (Dextrose 50% Inj) 0 ml IV STAT PRN; Protocol PRN Reason: Hypoglycemia Protocol Dextrose (Glutose 15) 0 gm PO ONCE PRN; Protocol PRN Reason: Hypoglycemia Protocol Enoxaparin Sodium (Lovenox) 30 mg SC DAILY [facility] Last Admin: 03/26/18 09:48 Dose: Not Given Fenofibrate (Tricor) 48 mg PO DAILY [facility] Last Admin: 03/26/18 09:44 Dose: 48 mg Furosemide (Lasix) 40 mg IVP Q12H [facility] Last Admin: 03/26/18 09:00 Dose: 40 mg Glucagon (Glucagen Diagnostic Kit) 0 mg IM STAT PRN; Protocol PRN Reason: Hypoglycemia Protocol Vancomycin/Sodium Chloride (Vancomycin 1 Gm/Ns 200 Ml) 1 gm in 200 mls @ 133 mls/hr IVPB Q24H [facility]; Protocol Stop: 03/29/18 14:01 Last Admin: 03/25/18 14:15 Dose: 133 mls/hr Meropenem 500 mg/ Sodium (Chloride) 100 mls @ 100 mls/hr IVPB Q8H [facility]; Protocol Last Admin: 03/26/18 09:44 Dose: 100 mls/hr Dextrose (Dextrose 5% In Water 1000 Ml) 1,000 mls @ 0 mls/hr IV .Q0M PRN; Protocol PRN Reason: Hypoglycemia Protocol Insulin Human Regular (Novolin R) 0 unit SC ACHS [facility]; Protocol Last Admin: 03/26/18 07:45 Dose: Not Given Levothyroxine Sodium (Synthroid) 100 mcg PO DAILY@0630 [facility] Last Admin: 03/26/18 05:40 Dose: 100 mcg Metoprolol Succinate (Toprol Xl) 25 mg PO DAILY [facility] Last Admin: 03/26/18 09:36 Dose: 25 mg Prasugrel (Effient) 10 mg PO DAILY [facility] Last Admin: 03/26/18 09:35 Dose: 10 mg Rosuvastatin Calcium (Crestor) 10 mg PO HS [facility] Last Admin: 03/25/18 22:10 Dose: 10 mg Saccharomyces Boulardii (Florastor) 250 mg PO BID [facility] Last Admin: 03/26/18 09:34 Dose: 250 mg Sitagliptin Phosphate (Januvia) 25 mg PO DAILY [facility] Last Admin: 03/26/18 09:34 Dose: 25 mg Results - Vital Signs Recent Vital Signs: Last Vital Signs Temp 98.4 F 03/26/18 07:00 Pulse 100 H 03/26/18 09:33 Resp 18 03/26/18 07:00 BP 156/65 H 03/26/18 09:33 Pulse Ox 95 03/26/18 07:00 - Labs Result Diagrams: 03/26/18 07:02 03/26/18 07:03 Labs: Laboratory Results - last 24 hr 03/26/18 03/26/18 03/26/18 07:02 07:03 07:03 WBC 24.2 H RBC 2.78 L Hgb 8.3 L Hct 25.3 L MCV 90.9 MCH 29.7 MCHC 32.7 L RDW 16.8 H Plt Count 113 L MPV 10.0 Neut % (Auto) 62.1 Lymph % (Auto) 10.8 L [place] % (Auto) 25.6 H Eos % (Auto) 0.8 Baso % (Auto) 0.7 Neut # (Auto) 15.0 H Lymph # (Auto) 2.6 [place] # (Auto) 6.2 H Eos # (Auto) 0.2 Baso # (Auto) 0.2 Neutrophils % (Manual) 65 Band Neutrophils % 1 Lymphocytes % (Manual) 13 L Monocytes % (Manual) 18 H Basophils % (Manual) 1 Myelocytes % 2 H Platelet Estimate Slightly decreased L Polychromasia Slight Hypochromasia (manual) Slight Poikilocytosis (manual Slight Anisocytosis (manual) Slight Retic Count 1.7 H D Haptoglobin Sodium 137 Potassium 3.9 Chloride 99 Carbon Dioxide 27 Anion Gap 15 BUN 54 H Creatinine 3.2 H Est GFR ( Amer) 17 Est GFR (Non-Af Amer) 14 Random Glucose 105 Calcium 8.3 L Phosphorus 4.7 H Magnesium 2.2 Iron 85 TIBC 185 L % Saturation 46 Ferritin 447.0 Total Bilirubin 0.5 AST 22 ALT 16 Alkaline Phosphatase 41 Total Protein 7.8 Albumin 3.4 L Globulin 4.4 H Albumin/Globulin Ratio 0.8 L Vitamin B12 670 Folate 9.3 Random Vancomycin 03/26/18 03/26/18 07:03 07:28 WBC RBC Hgb Hct MCV MCH MCHC RDW Plt Count MPV Neut % (Auto) Lymph % (Auto) [place] % (Auto) Eos % (Auto) Baso % (Auto) Neut # (Auto) Lymph # (Auto) [place] # (Auto) Eos # (Auto) Baso # (Auto) Neutrophils % (Manual) Band Neutrophils % Lymphocytes % (Manual) Monocytes % (Manual) Basophils % (Manual) Myelocytes % Platelet Estimate Polychromasia Hypochromasia (manual) Poikilocytosis (manual Anisocytosis (manual) Retic Count Haptoglobin 120.7 Sodium Potassium Chloride Carbon Dioxide Anion Gap BUN Creatinine Est GFR ( Amer) Est GFR (Non-Af Amer) Random Glucose Calcium Phosphorus Magnesium Iron TIBC % Saturation Ferritin Total Bilirubin AST ALT Alkaline Phosphatase Total Protein Albumin Globulin Albumin/Globulin Ratio Vitamin B12 Folate Random Vancomycin 19.4 Assessment & Plan (1) CHF (congestive heart failure) Status: Acute (2) Leukocytosis Status: Acute (3) Pleural effusion Status: Acute (4) CKD (chronic kidney disease) stage 4, GFR 15-29 ml/min Status: Acute (5) CMML (chronic myelomonocytic leukemia) Status: Acute - Assessment and Plan (Free Text) Assessment: agree w/ lasix antibiotic coverage may need thoracentesis, consider pulmonary consult
--- NOTE | 2018-03-26 11:41 | PCM.SURG1 ---
Surgeon's Initial Post Op Note - Surgeon's Notes Surgeon: Bon Longoria MD Movie Projectionist: NONE Type of Anesthesia: Local Pre-Operative Diagnosis: Pleural effusion Operative Findings: US showed small right pleural effusion Post-Operative Diagnosis: Pleural effusion Operation Performed: US guided right thoracentesis Specimen/Specimens Removed: 500 cc of slight serosanguinous fluid Estimated Blood Loss: EBL {In ML}: 0 Blood Products Given: N/A Drains Used: No Drains Post-Op Condition: Fair Date of Surgery/Procedure: 03/26/18 Time of Surgery/Procedure: 11:40
--- NOTE | 2018-03-26 11:50 | US ---
PROCEDURE: Date of procedure: 03/26/2018 Procedure: 1. Ultrasound-guided left thoracentesis, CPT 47389 Medications: 5cc 1% Lidocaine HISTORY: Left pleural effusion TECHNIQUE: Following informed consent ,the Patients' left chest was marked. Procedure time-out was called, and the patient was placed in the sitting position and limited ultrasound showed a small effusion. The patient's left back was prepped and draped in the usual sterile fashion. After the skin was anesthetized with lidocaine, a drainage catheter was advanced under ultrasound guidance into the pleural space. Ultrasound-guided thoracentesis was performed. A total of 500 cubic centimeters of slight serosanguinous fluid removed without complication. A Xeroform dressing was applied. IMPRESSION: Ultrasound guided left thoracentesis. There were no immediate complications.
[2018-03-26] MEDS: Vancomycin 1 gm/NS 200 ml 1 GM/200 ML BAG IVPB SCH (13:38)
--- NOTE | 2018-03-26 13:45 | RAD ---
Date of service: 03/26/2018 PROCEDURE: CHEST RADIOGRAPH, 1 VIEW HISTORY: Status post right lung nodule biopsy COMPARISON: None available. FINDINGS: LUNGS: Haziness to the lungs bilaterally right greater than left likely pulmonary edema. PLEURA: No pneumothorax following right upper lobe lung biopsy. CARDIOVASCULAR: Atherosclerotic calcifications identified primarily aortic arch. Normal. OSSEOUS STRUCTURES: No significant abnormalities. VISUALIZED UPPER ABDOMEN: Normal. OTHER FINDINGS: None. IMPRESSION: Pulmonary edema status post right lung biopsy. This is asymmetrical right more pronounced than left. No visible pneumothorax following biopsy of a right upper lobe lung mass.
[2018-03-26 14:02] LABS: BODY FLUID TYPE PLEURAL/THORACENTESI
[2018-03-26 14:36] LABS: BF GROSS APPEARANCE BLOODY (CLEAR); BODY FLUID MONO/MACROPHAGE 14 % (0-0); BODY FLUID TOTAL COUNT 100 (0-0)
[2018-03-27 00:50] LABS: ARTERIAL BLOOD GAS HCO3 25.7 mmol/L (21-28); ARTERIAL BLOOD GAS O2 SAT 99.5 % (95-98); ARTERIAL BLOOD GAS PCO2 38 mm/Hg (35-45); ARTERIAL BLOOD GAS PH 7.43 (7.35-7.45); ARTERIAL BLOOD GAS PO2 110 mm/Hg (80-100); ARTERIAL BLOOD GAS TCO2 26.4 mmol/L (22-28)
[2018-03-27 00:53] LABS: BASO % 0.1 % (0.0-2.0); EOS # 0.1 K/uL (0.0-0.7); EOS % 0.4 % (0.0-4.0); HEMOGLOBIN 8.3 g/dL (11.0-16.0); LYMPH # 2.8 K/uL (1.0-4.3); LYMPH % 9.1 % (20.0-40.0); MEAN CORPUSCULAR HEMOGLOBIN 29.4 pg (27.0-31.0); MEAN CORPUSCULAR HGB CONC 32.6 g/dL (33.0-37.0); MEAN PLATELET VOLUME 9.8 fL (7.2-11.7); MONO # 8.2 K/uL (0.0-0.8); MONO % 27.2 % (0.0-10.0); NEUT # 19.1 K/uL (1.8-7.0); NEUT % 63.2 % (50.0-75.0); NRBC % 1.1 % (0.0-2.0); PLATELET COUNT 120 K/uL (130-400); RBC 2.81 Mil/uL (3.80-5.20); RED CELL DISTRIBUTION WIDTH 16.7 % (11.5-14.5); WHITE BLOOD COUNT 30.3 K/uL (4.8-10.8)
[2018-03-27 01:02] LABS: INR 1.4
[2018-03-27 01:22] LABS: ALB/GLOB RATIO 0.9 (1.0-2.1); ALBUMIN 3.7 g/dL (3.5-5.0); CALCIUM 8.1 mg/dl (8.6-10.4)
[2018-03-27 01:35] LABS: BANDS 2 % (0-2); BASOPHIL 1 % (0-2); LYMPHOCYTE 14 % (20-40); METAMYELOCYTE 4 % (0-0); MONOCYTE 25 % (0-10); NEUTROPHIL 54 % (50-75); TOTAL CELLS COUNTED 100
[2018-03-27 01:36] LABS: ANISOCYTOSIS SLIGHT; PLATELET ESTIMATE SLIGHTLY DECREASED (NORMAL); POIKILOCYTOSIS SLIGHT
[2018-03-27] MEDS: Meropenem 500 MG in Sodium Chloride 0.9% 100 ML IVPB SCH ×3 (01:55→17:05)
[2018-03-27] MEDS: Albuterol-Ipratrop 3 mg / 0.5 (3 ml) UD INH SCH ×5 (02:05→19:58)
[2018-03-27] MEDS: Acetylcysteine 20% Inhal Soln (4ml) INH SCH ×5 (02:05→19:58)
[2018-03-27] MEDS: Levothyroxine 100 MCG TAB PO SCH (05:45)
[2018-03-27 08:06] LABS: BASO # 0.1 K/uL (0.0-0.2); BASO % 0.3 % (0.0-2.0); EOS # 0.1 K/uL (0.0-0.7); EOS % 0.3 % (0.0-4.0); HEMOGLOBIN 7.6 g/dL (11.0-16.0); LYMPH # 2.6 K/uL (1.0-4.3); LYMPH % 8.9 % (20.0-40.0); MEAN CELL VOLUME 90.7 fL (81.0-99.0); MEAN CORPUSCULAR HEMOGLOBIN 29.6 pg (27.0-31.0); MEAN CORPUSCULAR HGB CONC 32.6 g/dL (33.0-37.0); MEAN PLATELET VOLUME 10.2 fL (7.2-11.7); MONO # 7.3 K/uL (0.0-0.8); MONO % 24.5 % (0.0-10.0); NEUT # 19.7 K/uL (1.8-7.0); NRBC % 0.6 % (0.0-2.0); PLATELET COUNT 116 K/uL (130-400); RBC 2.58 Mil/uL (3.80-5.20); RED CELL DISTRIBUTION WIDTH 16.5 % (11.5-14.5); WHITE BLOOD COUNT 29.8 K/uL (4.8-10.8)
[2018-03-27] MEDS: (Novolin R) Insulin Human Regular 100 units/ml vial SC SCH ×4 (08:25→22:03)
[2018-03-27 08:32] LABS: ALB/GLOB RATIO 0.8 (1.0-2.1); ALBUMIN 3.4 g/dL (3.5-5.0); CALCIUM 8.3 mg/dl (8.6-10.4)
--- NOTE | 2018-03-27 09:00 | RAD ---
Date of service: 03/27/2018 HISTORY: Left pleural effusion COMPARISON: 03/26/2018 FINDINGS: LUNGS: Moderate to severe venous congestion. Prominent consolidative opacification in the left mid to lower lung zone as well as right lower lung zone. Scattered nodular densities in both lung singh. PLEURA: Moderate to large left and small right pleural effusion. CARDIOVASCULAR: Aortic atherosclerotic calcification present. Cardiomegaly. Right paratracheal prominence may represent prominent vasculature. OSSEOUS STRUCTURES: No significant abnormalities. VISUALIZED UPPER ABDOMEN: Normal. OTHER FINDINGS: None. IMPRESSION: Moderate to severe venous congestion. Prominent consolidative opacification in the left mid to lower lung zone as well as right lower lung zone. Scattered nodular densities in both lung singh. Moderate to large left and small right pleural effusion. Cardiomegaly.
--- NOTE | 2018-03-27 09:15 | CP.PCM.PCO ---
Additional Comments - Additional Comments Additional Comments: Responded to [employer]ER called for hyoxia spo2 in 70's on 3lit nc, patient was s/p left side thoracentesis, bp and pulse stable, spo2 improved to 100% on NRB, ABG confirmed hypoxia, patient was alert and oriented, felt better on increased fio2, exam showed reduced breath sounds on the left side. Stat labs and CT chest done. CT showed atelectesis in the area of the the tap in the left lower lobe, hemoglobin, pt/ptt, stable, chem unchanged. Patient was started on bipap to open up the lung, with f/u repeat abg, cxr, and pulmonary to be consulted if need the bronch if the lung doesn't re-expand. See orders for detail, am team informed about the events and care transferred.
[2018-03-27 09:34] LABS: ANISOCYTOSIS SLIGHT; BANDS 8 % (0-2); LYMPHOCYTE 5 % (20-40); MONOCYTE 23 % (0-10); NEUTROPHIL 64 % (50-75); PLATELET ESTIMATE SLIGHTLY DECREASED (NORMAL); TOTAL CELLS COUNTED 100
[2018-03-27] MEDS: Metoprolol Succinate 25 mg XL Tab PO SCH (09:34)
[2018-03-27] MEDS: Saccharomyces Boulardi 250 mg Cap PO SCH ×2 (09:34→17:06)
[2018-03-27 09:35] LABS: HYPOCHROMIC SLIGHT; POIKILOCYTOSIS SLIGHT
[2018-03-27] MEDS: Enoxaparin 30 mg Syringe SC SCH (09:40)
[2018-03-27 10:01] LABS: ABG ALLEN TEST POS; ARTERIAL BLOOD GAS HCO3 27.1 mmol/L (21-28); ARTERIAL BLOOD GAS O2 SAT 95.7 % (95-98); ARTERIAL BLOOD GAS PCO2 39 mm/Hg (35-45); ARTERIAL BLOOD GAS PH 7.45 (7.35-7.45); ARTERIAL BLOOD GAS PO2 57 mm/Hg (80-100); ARTERIAL BLOOD GAS TCO2 28.3 mmol/L (22-28)
--- NOTE | 2018-03-27 11:43 | CP.PCM.PN ---
Subjective - Date & Time of Evaluation Date of Evaluation: 03/27/18 Time of Evaluation: 11:42 - Subjective Subjective: events noted hypoxemic resp failure- on bipap. improved breathing reports good uop s/p thoracentesis Objective - Vital Signs/Intake and Output Vital Signs (last 24 hours): Temp Pulse Resp BP Pulse Ox 98.6 F 69 30 H 140/63 97 03/27/18 07:00 03/27/18 09:32 03/27/18 07:00 03/27/18 09:32 03/27/18 07:00 Intake and Output: 03/27/18 03/27/18 06:59 18:59 Intake Total 220 Output Total 300 Balance -80 - Medications Medications: Current Medications Acetaminophen (Tylenol 325mg Tab) 650 mg PO Q6 PRN PRN Reason: Fever >100.4 F Last Admin: 03/25/18 19:39 Dose: 650 mg Acetylcysteine (Acetylcysteine 20%) 4 ml INH Q4H [facility] Last Admin: 03/27/18 08:34 Dose: 4 ml Albuterol/Ipratropium (Duoneb 3 Mg/0.5 Mg (3 Ml) Ud) 3 ml INH Q4H [facility] Last Admin: 03/27/18 08:34 Dose: 3 ml Amlodipine Besylate (Norvasc) 10 mg PO DAILY [facility] Last Admin: 03/27/18 09:35 Dose: 10 mg Benzonatate (Tessalon Perles) 100 mg PO TID [facility] Last Admin: 03/27/18 09:34 Dose: 100 mg Dextrose (Dextrose 50% Inj) 0 ml IV STAT PRN; Protocol PRN Reason: Hypoglycemia Protocol Dextrose (Glutose 15) 0 gm PO ONCE PRN; Protocol PRN Reason: Hypoglycemia Protocol Enoxaparin Sodium (Lovenox) 30 mg SC DAILY [facility] Last Admin: 03/27/18 09:40 Dose: 30 mg Fenofibrate (Tricor) 48 mg PO DAILY [facility] Last Admin: 03/27/18 09:35 Dose: 48 mg Folic Acid (Folic Acid) 1 mg PO DAILY [facility] Last Admin: 03/27/18 09:35 Dose: 1 mg Furosemide (Lasix) 40 mg IVP Q12H [facility] Last Admin: 03/27/18 08:23 Dose: 40 mg Glucagon (Glucagen Diagnostic Kit) 0 mg IM STAT PRN; Protocol PRN Reason: Hypoglycemia Protocol Vancomycin/Sodium Chloride (Vancomycin 1 Gm/Ns 200 Ml) 1 gm in 200 mls @ 133 mls/hr IVPB Q24H [facility]; Protocol Stop: 03/29/18 14:01 Last Admin: 03/26/18 13:38 Dose: 133 mls/hr Meropenem 500 mg/ Sodium (Chloride) 100 mls @ 100 mls/hr IVPB Q8H [facility]; Protocol Last Admin: 03/27/18 08:50 Dose: 100 mls/hr Dextrose (Dextrose 5% In Water 1000 Ml) 1,000 mls @ 0 mls/hr IV .Q0M PRN; Protocol PRN Reason: Hypoglycemia Protocol Insulin Human Regular (Novolin R) 0 unit SC ACHS [facility]; Protocol Last Admin: 03/27/18 08:25 Dose: 1 units Levothyroxine Sodium (Synthroid) 100 mcg PO DAILY@0630 [facility] Last Admin: 03/27/18 05:45 Dose: 100 mcg Metoprolol Succinate (Toprol Xl) 25 mg PO DAILY [facility] Last Admin: 03/27/18 09:34 Dose: 25 mg Prasugrel (Effient) 10 mg PO DAILY [facility] Last Admin: 03/27/18 09:35 Dose: 10 mg Rosuvastatin Calcium (Crestor) 10 mg PO HS [facility] Last Admin: 03/26/18 21:14 Dose: 10 mg Saccharomyces Boulardii (Florastor) 250 mg PO BID [facility] Last Admin: 03/27/18 09:34 Dose: 250 mg Sitagliptin Phosphate (Januvia) 25 mg PO DAILY [facility] Last Admin: 03/27/18 09:35 Dose: 25 mg - Labs Labs: 03/27/18 07:54 03/27/18 07:54 PT 15.0 SECONDS (9.7-12.2) H 03/27/18 00:47 INR 1.4 03/27/18 00:47 APTT 34 SECONDS (21-34) 03/27/18 00:47 - Constitutional Appears: In Acute Distress (mild), Chronically Ill - Head Exam Head Exam: NORMAL INSPECTION, NORMOCEPHALIC - Eye Exam Eye Exam: Normal appearance, PERRL - ENT Exam Additional comments: bipap - Respiratory Exam Respiratory Exam: Decreased Breath Sounds (bases), NORMAL BREATHING PATTERN - Cardiovascular Exam Cardiovascular Exam: RRR - GI/Abdominal Exam GI & Abdominal Exam: Distended, Soft - Extremities Exam Extremities Exam: Normal Inspection - Neurological Exam Neurological Exam: Alert, Awake, Oriented x3 - Psychiatric Exam Psychiatric exam: Normal Affect, Normal Mood - Skin Skin Exam: Dry, Intact, Warm Assessment and Plan (1) CHF (congestive heart failure) Status: Acute (2) Leukocytosis Status: Acute (3) Pleural effusion Status: Acute (4) CKD (chronic kidney disease) stage 4, GFR 15-29 ml/min Status: Acute (5) CMML (chronic myelomonocytic leukemia) Status: Acute - Assessment and Plan (Free Text) Assessment: maintain iv lasix antibiotics, pulmonary toilet / chest pt
--- NOTE | 2018-03-27 12:44 | CT ---
Date of service: 03/27/2018 PROCEDURE: CT Chest without contrast HISTORY: Worsening pleural effusion s/p thoracentesis COMPARISON: Comparison made with CT chest dated 03/24/2018 TECHNIQUE: Contiguous axial images were obtained through the chest without intravenous contrast enhancement. Sagittal and coronal reconstructions were performed. Radiation dose: Total exam DLP = 425.0 mGy-cm. This CT exam was performed using one or more of the following dose reduction techniques: Automated exposure control, adjustment of the mA and/or kV according to patient size, and/or use of iterative reconstruction technique. FINDINGS: LUNGS: Significant atelectatic changes left lower lobe associated with small effusion. Note the effusion has decreased from prior exam however the atelectasis has increased. Mild atelectatic and/or infiltrate changes are present within the right upper and lower lobes with small right-sided effusion also increased from prior study. Mild-moderate pulmonary vascular congestive changes are present. Small amount of fluid is seen within the inferior aspect right major fissure MEDIASTINUM: Heart appears enlarged. Dense mitral valve calcifications. Suspect trace pericardial effusion. Ascending thoracic aorta measures approximately 2.9 cm and descending thoracic aorta measures approximately 2.4 cm. Mild partially calcified atherosclerotic plaque changes seen along the thoracic aorta. Pulmonary trunk measures approximately 3.2 cm. Trachea is patent with no large central endoluminal lesions. Small hiatal hernia. PLEURA: As above. No evidence of pneumothorax BONES: Chronic appearing anterior wedge compression fractures of the T12 and L1 segments with retropulsion of the posterior superior corners of each of these vertebral body segments latter greater than former. Changes do result in mild compression of the of the ventral surface of the thecal sac at each level latter slightly more so than former as well. UPPER ABDOMEN: There are moderate calcified atherosclerotic plaque changes abdominal aorta which involves the origins of the major branches of the abdominal aorta with resultant varying degrees of mild to significant stenosis. OTHER FINDINGS: None. IMPRESSION: Left lower lobe consolidation with mild patchy atelectatic with small effusion; left-sided effusion has decreased however the L ectatic changes have progressed. Atelectatic and or infiltrate changes in the right lung base and right upper lobe with small right-sided effusion increased from prior exam. Underlying pulmonary vascular congestive changes. Significant atherosclerotic disease involving the abdominal aorta and major branch vessels as above. Chronic appearing anterior wedge compression fractures of the T12 and L1 segments with retropulsion of the posterior superior corners of each segment resulting in canal narrowing.
--- NOTE | 2018-03-27 13:31 | CP.PCM.PN ---
Subjective - Date & Time of Evaluation Date of Evaluation: 03/27/18 Time of Evaluation: 09:00 - Subjective Subjective: awake alert no new cultures still with copious secretions less sob no fever Vanco on hold Objective - Vital Signs/Intake and Output Vital Signs (last 24 hours): Temp Pulse Resp BP Pulse Ox 98.6 F 89 30 H 140/63 97 03/27/18 07:00 03/27/18 12:29 03/27/18 07:00 03/27/18 09:32 03/27/18 07:00 Intake and Output: 03/27/18 03/27/18 06:59 18:59 Intake Total 220 Output Total 300 Balance -80 - Medications Medications: Current Medications Acetaminophen (Tylenol 325mg Tab) 650 mg PO Q6 PRN PRN Reason: Fever >100.4 F Last Admin: 03/25/18 19:39 Dose: 650 mg Acetylcysteine (Acetylcysteine 20%) 4 ml INH Q4H [facility] Last Admin: 03/27/18 12:24 Dose: 4 ml Albuterol/Ipratropium (Duoneb 3 Mg/0.5 Mg (3 Ml) Ud) 3 ml INH Q4H [facility] Last Admin: 03/27/18 12:24 Dose: 3 ml Amlodipine Besylate (Norvasc) 10 mg PO DAILY [facility] Last Admin: 03/27/18 09:35 Dose: 10 mg Benzonatate (Tessalon Perles) 100 mg PO TID [facility] Last Admin: 03/27/18 09:34 Dose: 100 mg Dextrose (Dextrose 50% Inj) 0 ml IV STAT PRN; Protocol PRN Reason: Hypoglycemia Protocol Dextrose (Glutose 15) 0 gm PO ONCE PRN; Protocol PRN Reason: Hypoglycemia Protocol Enoxaparin Sodium (Lovenox) 30 mg SC DAILY [facility] Last Admin: 03/27/18 09:40 Dose: 30 mg Fenofibrate (Tricor) 48 mg PO DAILY [facility] Last Admin: 03/27/18 09:35 Dose: 48 mg Folic Acid (Folic Acid) 1 mg PO DAILY [facility] Last Admin: 03/27/18 09:35 Dose: 1 mg Furosemide (Lasix) 40 mg IVP Q12H [facility] Last Admin: 03/27/18 08:23 Dose: 40 mg Glucagon (Glucagen Diagnostic Kit) 0 mg IM STAT PRN; Protocol PRN Reason: Hypoglycemia Protocol Vancomycin/Sodium Chloride (Vancomycin 1 Gm/Ns 200 Ml) 1 gm in 200 mls @ 133 mls/hr IVPB Q24H [facility]; Protocol Stop: 03/29/18 14:01 Last Admin: 03/26/18 13:38 Dose: 133 mls/hr Meropenem 500 mg/ Sodium (Chloride) 100 mls @ 100 mls/hr IVPB Q8H [facility]; Protocol Last Admin: 03/27/18 08:50 Dose: 100 mls/hr Dextrose (Dextrose 5% In Water 1000 Ml) 1,000 mls @ 0 mls/hr IV .Q0M PRN; Protocol PRN Reason: Hypoglycemia Protocol Insulin Human Regular (Novolin R) 0 unit SC ACHS [facility]; Protocol Last Admin: 03/27/18 11:57 Dose: Not Given Levothyroxine Sodium (Synthroid) 100 mcg PO DAILY@0630 [facility] Last Admin: 03/27/18 05:45 Dose: 100 mcg Metoprolol Succinate (Toprol Xl) 25 mg PO DAILY [facility] Last Admin: 03/27/18 09:34 Dose: 25 mg Prasugrel (Effient) 10 mg PO DAILY [facility] Last Admin: 03/27/18 09:35 Dose: 10 mg Rosuvastatin Calcium (Crestor) 10 mg PO HS [facility] Last Admin: 03/26/18 21:14 Dose: 10 mg Saccharomyces Boulardii (Florastor) 250 mg PO BID [facility] Last Admin: 03/27/18 09:34 Dose: 250 mg Sitagliptin Phosphate (Januvia) 25 mg PO DAILY [facility] Last Admin: 03/27/18 09:35 Dose: 25 mg - Labs Labs: 03/27/18 07:54 03/27/18 07:54 PT 15.0 SECONDS (9.7-12.2) H 03/27/18 00:47 INR 1.4 03/27/18 00:47 APTT 34 SECONDS (21-34) 03/27/18 00:47 - Constitutional Appears: Non-toxic, Chronically Ill - Head Exam Head Exam: NORMOCEPHALIC - Eye Exam Eye Exam: absent: Scleral icterus - ENT Exam ENT Exam: Mucous Membranes Dry - Neck Exam Neck Exam: absent: Lymphadenopathy - Respiratory Exam Respiratory Exam: Decreased Breath Sounds - Cardiovascular Exam Cardiovascular Exam: REGULAR RHYTHM - GI/Abdominal Exam GI & Abdominal Exam: Distended - Rectal Exam Rectal Exam: Deferred Assessment and Plan (1) CHF (congestive heart failure) Status: Acute (2) Leukocytosis Status: Acute (3) Pleural effusion Status: Acute (4) LUCRECIA (acute kidney injury) Status: Acute (5) Pneumonia Status: Acute
--- NOTE | 2018-03-27 14:05 | RAD ---
Date of service: 03/27/2018 HISTORY: hypoxia, f/u pleural effusion COMPARISON: March 27, 2018 study completed 00:24. FINDINGS: LUNGS: Stable pulmonary edema. PLEURA: Stable left pleural effusion. Small right pleural effusion. CARDIOVASCULAR: Cardiomegaly. Atherosclerotic calcifications identified primarily aortic arch. OSSEOUS STRUCTURES: No significant abnormalities. VISUALIZED UPPER ABDOMEN: Normal. OTHER FINDINGS: None. IMPRESSION: Stable pulmonary edema which is asymmetrical right greater than left.
--- NOTE | 2018-03-27 15:34 | CP.PCM.PN ---
<Gail Fagan Y - Last Filed: 03/27/18 18:09> Subjective - Date & Time of Evaluation Date of Evaluation: 03/27/18 Time of Evaluation: 10:15 - Subjective Subjective: PGY-1 Medicine Progress Note for Dr. Reyes 82 year old female with PMH of COPD, PVD, CHF (w/ preserved EF), HTN, Leukemia, HLD, CKD, Hypothyrodism, and Pnuemonia (previously admitted to [facility] on 03/15) was seen and examined this morning s/p left side thoracentesis POD #1. Patient had a rapid response overnight for hypoxia and remained stable a fter being put on BIPAP. Patient had no over night event per nurse. Patient is currently on BIPAP with less shortness of breath, but is still having chest tightness. She also complains of leg tenderness on the right but otherwise denies any fever, dizziness, abdominal pain, nausea, vomiting, and dysuria, and is tolerating post-op diet well. Objective - Vital Signs/Intake and Output Vital Signs (last 24 hours): Temp Pulse Resp BP Pulse Ox 98.6 F 89 30 H 140/63 91 L 03/27/18 07:00 03/27/18 12:29 03/27/18 07:00 03/27/18 09:32 03/27/18 14:16 Intake and Output: 03/27/18 03/27/18 06:59 18:59 Intake Total 220 500 Output Total 300 Balance -80 500 - Medications Medications: Current Medications Acetaminophen (Tylenol 325mg Tab) 650 mg PO Q6 PRN PRN Reason: Fever >100.4 F Last Admin: 03/25/18 19:39 Dose: 650 mg Acetylcysteine (Acetylcysteine 20%) 4 ml INH Q4H [facility] Last Admin: 03/27/18 12:24 Dose: 4 ml Albuterol/Ipratropium (Duoneb 3 Mg/0.5 Mg (3 Ml) Ud) 3 ml INH Q4H [facility] Last Admin: 03/27/18 12:24 Dose: 3 ml Amlodipine Besylate (Norvasc) 10 mg PO DAILY [facility] Last Admin: 03/27/18 09:35 Dose: 10 mg Benzonatate (Tessalon Perles) 100 mg PO TID [facility] Last Admin: 03/27/18 13:41 Dose: 100 mg Dextrose (Dextrose 50% Inj) 0 ml IV STAT PRN; Protocol PRN Reason: Hypoglycemia Protocol Dextrose (Glutose 15) 0 gm PO ONCE PRN; Protocol PRN Reason: Hypoglycemia Protocol Enoxaparin Sodium (Lovenox) 30 mg SC DAILY [facility] Last Admin: 03/27/18 09:40 Dose: 30 mg Fenofibrate (Tricor) 48 mg PO DAILY [facility] Last Admin: 03/27/18 09:35 Dose: 48 mg Folic Acid (Folic Acid) 1 mg PO DAILY [facility] Last Admin: 03/27/18 09:35 Dose: 1 mg Furosemide (Lasix) 40 mg IVP Q12H [facility] Last Admin: 03/27/18 08:23 Dose: 40 mg Glucagon (Glucagen Diagnostic Kit) 0 mg IM STAT PRN; Protocol PRN Reason: Hypoglycemia Protocol Meropenem 500 mg/ Sodium (Chloride) 100 mls @ 100 mls/hr IVPB Q8H [facility]; Protocol Last Admin: 03/27/18 08:50 Dose: 100 mls/hr Dextrose (Dextrose 5% In Water 1000 Ml) 1,000 mls @ 0 mls/hr IV .Q0M PRN; Protocol PRN Reason: Hypoglycemia Protocol Insulin Human Regular (Novolin R) 0 unit SC ACHS [facility]; Protocol Last Admin: 03/27/18 11:57 Dose: Not Given Levothyroxine Sodium (Synthroid) 100 mcg PO DAILY@0630 [facility] Last Admin: 03/27/18 05:45 Dose: 100 mcg Metoprolol Succinate (Toprol Xl) 25 mg PO DAILY [facility] Last Admin: 03/27/18 09:34 Dose: 25 mg Prasugrel (Effient) 10 mg PO DAILY [facility] Last Admin: 03/27/18 09:35 Dose: 10 mg Rosuvastatin Calcium (Crestor) 10 mg PO HS [facility] Last Admin: 03/26/18 21:14 Dose: 10 mg Saccharomyces Boulardii (Florastor) 250 mg PO BID [facility] Last Admin: 03/27/18 09:34 Dose: 250 mg Sitagliptin Phosphate (Januvia) 25 mg PO DAILY [facility] Last Admin: 03/27/18 09:35 Dose: 25 mg - Labs Labs: 03/27/18 07:54 03/27/18 07:54 PT 15.0 SECONDS (9.7-12.2) H 03/27/18 00:47 INR 1.4 03/27/18 00:47 APTT 34 SECONDS (21-34) 03/27/18 00:47 - Constitutional Appears: No Acute Distress, Chronically Ill - Head Exam Head Exam: ATRAUMATIC, NORMOCEPHALIC - Respiratory Exam Respiratory Exam: Rales, Wheezes. absent: Accessory Muscle Use, NORMAL BREATHING PATTERN Additional comments: diffuse expiratory wheezes, R>L rales at R lung base - Cardiovascular Exam Cardiovascular Exam: REGULAR RHYTHM, +S1, +S2. absent: Murmur - GI/Abdominal Exam GI & Abdominal Exam: Normal Bowel Sounds. absent: Distended, Tenderness - Extremities Exam Extremities Exam: Normal Inspection. absent: Pedal Edema Additional comments: pulses palpable (radial, DP) IV access on L hand - Neurological Exam Neurological Exam: Alert, Awake, Oriented x3 - Psychiatric Exam Psychiatric exam: Normal Mood - Skin Skin Exam: Normal Color, Warm Assessment and Plan - Assessment and Plan (Free Text) Assessment: 82 year old female with a PMHx of COPD, PVD CHF (w/ preserved EF), HTN, Leukemia (not on tx), HLD, CKD, Hypothyrodism, and Pneumonia admitted for evaluation and treatment of hospital acquired pneumonia. CT scan on admission showed small b/l pleural effusions. s/p L thoracentesis (03/26) POD#1 Plan: Healthcare Associated Pneumonia w/ Pleural Effusion. CXR (03/24): Pulmonary venous congestive changes with near complete opacification left hemithorax consistent with large effusion and atelectasis. There has been progression of infiltrate changes right mid to lower lung field Chest CT (03/24): Moderately large left-sided effusion with left lower and to a lesser degree upper lobe atelectasis. Small right-sided effusion and minor right basilar atelectasis. Pulmonary venous congestive changes with ground- glass opacities. Repeat CXR (03/26, 03/27): improving, stable pulm edema, R>L ID Consulted Dr. Rodriguez, help appreciated Pulmonology Consulted Dr. Hernandez, help appreciated IR Consulted (Dr. Longoria), for Thoracentesis. Patient had thoracentesis on 03/26, with 500cc fluid removed. follow up on fluid analysis. Incentive Spirometery Q1 Currently on BiPAP s/p BARIATRIC COORDINATOR on 03/27. Titrate to SpO2 >94%. ProCal negative Blood Culture - neg x48 hours Sputum Culture - normal oral rossi Meds: MucoMyst Q4H [facility] DuoNebs Q4H [facility] Tessalon Perles 100mg PO TID Meropenem 500mg Q8H [facility] per ID. Vancomycin 1g Daily [facility] (started 03/24) (03/27: random vanc 24.5 - held) Tylenol PRN Lasix 40mg IVP BID Diastolic CHF, Chronic - stable ECHO (03/04/18): Grade II Pseudonormal filling dynamics, mild Pulml HTN, 60-65% EF EKG : NSR @ 92 BPM, No acute ST/T wave changes. BNP on Admission - 8470. CXR on Admission shows Pulm Congestion. 40mg Lasix Given in ED. Head of Bead elevated Strict Intake and Ouput Fluid/Salt Restriction Meds: Lasix 40mg IVP BID Metoprolol 25mg PO Daily Normocytic Anemia Ddx: CKD, Leukemia Anemia Workup Ordered Monitor H/H Meds: ProCrit [id number] (Last dose on 03/22/18) Folic acid 1mg PO daily CKD (Stage V) Est. GFR 17, Cr-2.7 on Admission Nephrology Consulted (Dr. Leach) No fluids due to CHF Renally Dose Medications HTN/CAD Meds: Amlodipine 10mg PO Daily Lasix 20 BID Metoprolol 25mg PO Daily Prasugrel 10mg PO Daily Rosuvastatin 10mg PO HS HLD Meds: Fenofibrate 48mg PO Daily Rosuvastatin 10mg PO HS Hypothyroidism Meds: Levothyroxine 100mcg Daily Type 2DM Januvia 25mg PO daily ISS Leukemia Patient gets ProCrit Injection every 14days Proph Lovenox (Renally Dosed) Heart Healthy Diet (2gm Na, 1500ml fluid Restriction, Renal) Florastor BID PT/OT Aspiration precauations: keep bed elevated to 30 degrees. Incentive spirometer Q1 hr d/w Dr. Amy Fagan PGY-1 <Reji Reyes H - Last Filed: 03/28/18 07:14> Objective - Vital Signs/Intake and Output Vital Signs (last 24 hours): Temp Pulse Resp BP Pulse Ox 98.2 F 98 H 20 129/56 L 96 03/28/18 06:00 03/28/18 06:00 03/28/18 06:00 03/28/18 06:00 03/28/18 06:00 Intake and Output: 03/28/18 03/28/18 06:59 18:59 Intake Total 820 Balance 820 - Medications Medications: Current Medications Acetaminophen (Tylenol 325mg Tab) 650 mg PO Q6 PRN PRN Reason: Fever >100.4 F Last Admin: 03/25/18 19:39 Dose: 650 mg Acetylcysteine (Acetylcysteine 20%) 4 ml INH Q4H [facility] Last Admin: 03/28/18 04:45 Dose: 4 ml Albuterol/Ipratropium (Duoneb 3 Mg/0.5 Mg (3 Ml) Ud) 3 ml INH Q4H [facility] Last Admin: 03/28/18 04:45 Dose: 3 ml Amlodipine Besylate (Norvasc) 10 mg PO DAILY [facility] Last Admin: 03/27/18 09:35 Dose: 10 mg Benzonatate (Tessalon Perles) 100 mg PO TID [facility] Last Admin: 03/27/18 17:06 Dose: 100 mg Dextrose (Dextrose 50% Inj) 0 ml IV STAT PRN; Protocol PRN Reason: Hypoglycemia Protocol Dextrose (Glutose 15) 0 gm PO ONCE PRN; Protocol PRN Reason: Hypoglycemia Protocol Enoxaparin Sodium (Lovenox) 30 mg SC DAILY [facility] Last Admin: 03/27/18 09:40 Dose: 30 mg Fenofibrate (Tricor) 48 mg PO DAILY [facility] Last Admin: 03/27/18 09:35 Dose: 48 mg Folic Acid (Folic Acid) 1 mg PO DAILY [facility] Last Admin: 03/27/18 09:35 Dose: 1 mg Furosemide (Lasix) 40 mg IVP Q12H [facility] Last Admin: 03/27/18 20:22 Dose: 40 mg Glucagon (Glucagen Diagnostic Kit) 0 mg IM STAT PRN; Protocol PRN Reason: Hypoglycemia Protocol Meropenem 500 mg/ Sodium (Chloride) 100 mls @ 100 mls/hr IVPB Q8H [facility]; Protocol Last Admin: 03/28/18 01:08 Dose: 100 mls/hr Dextrose (Dextrose 5% In Water 1000 Ml) 1,000 mls @ 0 mls/hr IV .Q0M PRN; Protocol PRN Reason: Hypoglycemia Protocol Insulin Human Regular (Novolin R) 0 unit SC ACHS [facility]; Protocol Last Admin: 03/27/18 22:03 Dose: Not Given Levothyroxine Sodium (Synthroid) 100 mcg PO DAILY@0630 [facility] Last Admin: 03/28/18 05:53 Dose: 100 mcg Metoprolol Succinate (Toprol Xl) 25 mg PO DAILY [facility] Last Admin: 03/27/18 09:34 Dose: 25 mg Prasugrel (Effient) 10 mg PO DAILY [facility] Last Admin: 03/27/18 09:35 Dose: 10 mg Rosuvastatin Calcium (Crestor) 10 mg PO HS [facility] Last Admin: 03/27/18 21:29 Dose: 10 mg Saccharomyces Boulardii (Florastor) 250 mg PO BID [facility] Last Admin: 03/27/18 17:06 Dose: 250 mg Sitagliptin Phosphate (Januvia) 25 mg PO DAILY [facility] Last Admin: 03/27/18 09:35 Dose: 25 mg - Labs Labs: 03/27/18 07:54 03/27/18 07:54 PT 15.0 SECONDS (9.7-12.2) H 03/27/18 00:47 INR 1.4 03/27/18 00:47 APTT 34 SECONDS (21-34) 03/27/18 00:47 Attending/Attestation - Attestation I have personally seen and examined this patient.: Yes I have fully participated in the care of the patient.: Yes I have reviewed all pertinent clinical information, including history, physical exam and plan: Yes Notes (Text): Medical attending: Patient was seen and examined by me with the medical chief technician. Agree with the above note by the resident Family member present as well at bedside. She has just had her second thoracentesis in a short period of time. Overnight was hypoxia and had an BARIATRIC COORDINATOR which lead to patient being placed on Bipap. Given this is second thoracentesis my concern is for reccurrent pleural effusion. Will need further clarification from pulmonology if patient will need CT surgery Currently remains on IV abx at this time, the cultures are Reji Reyes 03/28/18 07:14
--- NOTE | 2018-03-27 15:55 | PQF ---
PROVIDER RESPONSE TEXT: Provider was unable to determine a response for this query. REVIEWER QUERY TEXT: CHF Acuity and Type Congestive Heart Failure is documented in the Medical Record. Please document the type and acuity (in cludes probable or suspected) Such as: Type: -- Systolic -- Diastolic -- Combined -- Other, please specify Acuity: -- Acute -- Chronic -- Acute on chronic -- Other, please specify Also please document the underlying cause of the CHF (includes probable or suspected) The patient's Clinical Indicators include: ?82 y/o female, with PMHx of COPD, CHF, HTN, leukemia, and renal insufficiency". "Pt was recently adm itted and was discharged for pleural effusion that was drained by IR?. Respiratory Exam: Decreased Breath Sounds (Lung Bases B/L). Wheezes, Rales (bilateral rales, worse at left base). BNP: 8470. Furosemide 40 mg IVP Q12H ECHO on 03/06/18: The left ventricle is normal size. There is normal left ventricular wall thickness. The Ejection Frac tion is 60-65%. Transmitral Doppler flow pattern is Grade II-pseudonormal filling dynamics. The left atrial pressure is mildly elevated. mildly elevated la volume index. The left atrium is moderately dilated. The aortic valve is probably trileaflet. The aortic valve is moderately calcified.There is mild valvular aortic stenosis. Calculat ed aortic valve area is 1.4 cm2 with maximum pressure gradient of 23 mmHg and mean pressure gradient of 14 mmHg. Mitral regurgitation is mild. There is mild to moderate tricuspid regurgitation. Right ventricular systolic pressure is estimated at 45 mmHg. There is mild pulmonary hypertension. The aortic root is normal size. The aortic root displays mild sclerocalcific changes of the aortic root. ivc is mildly dilated with normal inspiratory collapse. There is no pericardial effusion. Please consider verify and document specifying the CHF, if agree. Query created by: Ernie Rincon on 03/27/2018 3:46 PM Electronically signed by: Gail Fagan 03/27/2018 3:53 PM
[2018-03-28] MEDS: Acetylcysteine 20% Inhal Soln (4ml) INH SCH ×6 (00:45→20:13)
[2018-03-28] MEDS: Albuterol-Ipratrop 3 mg / 0.5 (3 ml) UD INH SCH ×6 (00:45→20:13)
[2018-03-28] MEDS: Meropenem 500 MG in Sodium Chloride 0.9% 100 ML IVPB SCH ×3 (01:08→17:59)
[2018-03-28] MEDS: Levothyroxine 100 MCG TAB PO SCH (05:53)
[2018-03-28 07:42] LABS: BASO # 0.1 K/uL (0.0-0.2); BASO % 0.3 % (0.0-2.0); EOS # 0.2 K/uL (0.0-0.7); EOS % 0.8 % (0.0-4.0); HEMOGLOBIN 7.6 g/dL (11.0-16.0); LYMPH # 2.3 K/uL (1.0-4.3); LYMPH % 9.6 % (20.0-40.0); MEAN CELL VOLUME 90.6 fL (81.0-99.0); MEAN CORPUSCULAR HEMOGLOBIN 29.8 pg (27.0-31.0); MEAN CORPUSCULAR HGB CONC 32.9 g/dL (33.0-37.0); MEAN PLATELET VOLUME 10.1 fL (7.2-11.7); MONO # 6.6 K/uL (0.0-0.8); MONO % 27.4 % (0.0-10.0); NEUT # 14.9 K/uL (1.8-7.0); NEUT % 61.9 % (50.0-75.0); NRBC % 0.9 % (0.0-2.0); PLATELET COUNT 115 K/uL (130-400); RBC 2.54 Mil/uL (3.80-5.20); RED CELL DISTRIBUTION WIDTH 16.6 % (11.5-14.5)
[2018-03-28] MEDS: (Novolin R) Insulin Human Regular 100 units/ml vial SC SCH ×4 (07:55→21:27)
[2018-03-28 07:59] LABS: ALB/GLOB RATIO 0.8 (1.0-2.1); ALBUMIN 3.2 g/dL (3.5-5.0); CALCIUM 8.5 mg/dl (8.6-10.4)
[2018-03-28 08:45] LABS: ANISOCYTOSIS SLIGHT; BANDS 4 % (0-2); BASOPHIL 1 % (0-2); EOSINOPHIL 2 % (0-4); LYMPHOCYTE 8 % (20-40); METAMYELOCYTE 1 % (0-0); MONOCYTE 20 % (0-10); MYELOCYTE 2 % (0-0); NEUTROPHIL 61 % (50-75); NUCLEATED RED BLOOD CELL 1 % (0-0); PLATELET ESTIMATE NORMAL (NORMAL); REACTIVE LYMPHOCYTES 1 % (0-0); TOTAL CELLS COUNTED 100
--- NOTE | 2018-03-28 09:37 | CP.PCM.PN ---
<Emile Seals - Last Filed: 03/28/18 17:39> Subjective - Date & Time of Evaluation Date of Evaluation: 03/28/18 Time of Evaluation: 09:37 - Subjective Subjective: Progress note for Hospitalist service Patient seen and examined at bedside. Patient states she feels much better today. Patient had BIPAP on initially and then switched to NC. She denies fevers, chills, chest pain, shortness of breath, cough, abdominal pain, nausea, vomiting, diarrhea, leg pain or leg swelling. Objective - Vital Signs/Intake and Output Vital Signs (last 24 hours): Temp Pulse Resp BP Pulse Ox 97.8 F 98 H 20 147/61 95 03/28/18 07:54 03/28/18 08:43 03/28/18 07:54 03/28/18 08:43 03/28/18 07:54 Intake and Output: 03/28/18 03/28/18 06:59 18:59 Intake Total 820 Balance 820 - Medications Medications: Current Medications Acetaminophen (Tylenol 325mg Tab) 650 mg PO Q6 PRN PRN Reason: Fever >100.4 F Last Admin: 03/25/18 19:39 Dose: 650 mg Acetylcysteine (Acetylcysteine 20%) 4 ml INH Q4H [facility] Last Admin: 03/28/18 04:45 Dose: 4 ml Albuterol/Ipratropium (Duoneb 3 Mg/0.5 Mg (3 Ml) Ud) 3 ml INH Q4H [facility] Last Admin: 03/28/18 04:45 Dose: 3 ml Amlodipine Besylate (Norvasc) 10 mg PO DAILY [facility] Last Admin: 03/27/18 09:35 Dose: 10 mg Benzonatate (Tessalon Perles) 100 mg PO TID [facility] Last Admin: 03/27/18 17:06 Dose: 100 mg Dextrose (Dextrose 50% Inj) 0 ml IV STAT PRN; Protocol PRN Reason: Hypoglycemia Protocol Dextrose (Glutose 15) 0 gm PO ONCE PRN; Protocol PRN Reason: Hypoglycemia Protocol Enoxaparin Sodium (Lovenox) 30 mg SC DAILY [facility] Last Admin: 03/27/18 09:40 Dose: 30 mg Fenofibrate (Tricor) 48 mg PO DAILY [facility] Last Admin: 03/27/18 09:35 Dose: 48 mg Folic Acid (Folic Acid) 1 mg PO DAILY [facility] Last Admin: 03/27/18 09:35 Dose: 1 mg Furosemide (Lasix) 40 mg IVP Q12H [facility] Last Admin: 03/28/18 08:43 Dose: 40 mg Glucagon (Glucagen Diagnostic Kit) 0 mg IM STAT PRN; Protocol PRN Reason: Hypoglycemia Protocol Meropenem 500 mg/ Sodium (Chloride) 100 mls @ 100 mls/hr IVPB Q8H [facility]; Protocol Last Admin: 03/28/18 08:42 Dose: 100 mls/hr Dextrose (Dextrose 5% In Water 1000 Ml) 1,000 mls @ 0 mls/hr IV .Q0M PRN; Protocol PRN Reason: Hypoglycemia Protocol Insulin Human Regular (Novolin R) 0 unit SC ACHS [facility]; Protocol Last Admin: 03/28/18 07:55 Dose: Not Given Levothyroxine Sodium (Synthroid) 100 mcg PO DAILY@0630 [facility] Last Admin: 03/28/18 05:53 Dose: 100 mcg Metoprolol Succinate (Toprol Xl) 25 mg PO DAILY [facility] Last Admin: 03/27/18 09:34 Dose: 25 mg Prasugrel (Effient) 10 mg PO DAILY [facility] Last Admin: 03/27/18 09:35 Dose: 10 mg Rosuvastatin Calcium (Crestor) 10 mg PO HS [facility] Last Admin: 03/27/18 21:29 Dose: 10 mg Saccharomyces Boulardii (Florastor) 250 mg PO BID [facility] Last Admin: 03/27/18 17:06 Dose: 250 mg Sitagliptin Phosphate (Januvia) 25 mg PO DAILY [facility] Last Admin: 03/27/18 09:35 Dose: 25 mg - Labs Labs: 03/28/18 07:12 03/28/18 07:12 PT 15.0 SECONDS (9.7-12.2) H 03/27/18 00:47 INR 1.4 03/27/18 00:47 APTT 34 SECONDS (21-34) 03/27/18 00:47 - Constitutional Appears: Well, No Acute Distress - Head Exam Head Exam: ATRAUMATIC, NORMOCEPHALIC - Eye Exam Eye Exam: EOMI - ENT Exam ENT Exam: Mucous Membranes Moist - Neck Exam Neck Exam: Full ROM - Respiratory Exam Respiratory Exam: Wheezes (mild wheezes bilaterally). absent: Decreased Breath Sounds, Rales, Rhonchi, Respiratory Distress, Stridor - Cardiovascular Exam Cardiovascular Exam: REGULAR RHYTHM, +S1, +S2. absent: Gallop, Rubs, Murmur - GI/Abdominal Exam GI & Abdominal Exam: Soft, Normal Bowel Sounds. absent: Distended, Firm, Guarding, Rigid, Tenderness, Organomegaly - Extremities Exam Extremities Exam: absent: Calf Tenderness, Pedal Edema - Neurological Exam Neurological Exam: Alert, Awake, Oriented x3 - Skin Skin Exam: Dry, Intact, Warm Assessment and Plan - Assessment and Plan (Free Text) Plan: Assessment: 82 year old female with a PMHx of COPD, PVD CHF (w/ preserved EF), HTN, Leukemia (not on tx), HLD, CKD, Hypothyrodism, and Pneumonia admitted for evaluation and treatment of hospital acquired pneumonia. CT scan on admission showed small b/l pleural effusions. s/p L thoracentesis (03/26) POD#2 Plan: Healthcare Associated Pneumonia w/ Pleural Effusion Left lower lobe consolidation CXR (03/24): Pulmonary venous congestive changes with near complete opacification left hemithorax consistent with large effusion and atelectasis. There has been progression of infiltrate changes right mid to lower lung field Chest CT (03/24): Moderately large left-sided effusion with left lower and to a lesser degree upper lobe atelectasis. Small right-sided effusion and minor right basilar atelectasis. Pulmonary venous congestive changes with ground- glass opacities. Repeat CXR (03/26, 03/27): improving, stable pulm edema, R>L Chest CT 03/27/18 Left lower lobe consolidation with mild patchy atelectatic with small effusion; left-sided effusion has decreased however the L ectatic c hanges have progressed. Atelectatic and or infiltrate changes in the right lung base and right upper lobe with small right-sided effusion increased from prior exam. Underlying pulmonary vascular congestive changes. Significant atherosclerotic disease involving the abdominal aorta and major branch vessels as above. Chronic appearing anterior wedge compression fractures of the T12 and L1 segments with retropulsion of the posterior superior corners of each segment resulting in canal narrowing. ID Consulted Dr. Rodriguez, help appreciated Pulmonology Consulted Dr. Hernandez, help appreciated As per Dr. Hernandez's note, who recommended repeat CT chest without contrast, once patient is able to able to lie flat. IR Consulted (Dr. Longoria), for Thoracentesis. Patient had thoracentesis on 03/26, with 500cc fluid removed. Fluid analysis: Bloody appearance, 943 WBC, 24626 RBCs, [address], 67 neutrophils, 19 lymphocytes, 14 monocytes/macrophages, moderate mesothelial and macrophages seen on smear. Body fluid culture prelim no growth for 2 days. Incentive Spirometery Q1 Currently on BiPAP s/p MOP MAKER on 03/27. Titrate to SpO2 >94%. ProCal negative Blood Culture - neg x4 days Sputum Culture - normal oral rossi Meds: MucoMyst Q4H [facility] DuoNebs Q4H [facility] Tessalon Perles 100mg PO TID Meropenem 500mg Q8H [facility] per ID. Vancomycin 1g Daily [facility] (started 03/24) (03/27: random vanc 24.5 - held) -> discontinued 03/27 Tylenol 650mg PRN Lasix 40mg IVP BID --> decreased to Lasix 20mg IV BID Diastolic CHF, with preserved EF Chronic - stable ECHO (03/04/18): Grade II Pseudonormal filling dynamics, mild Pulml HTN, 60-65% EF EKG : NSR @ 92 BPM, No acute ST/T wave changes. BNP on Admission - 8470. CXR on Admission shows Pulm Congestion. 40mg Lasix Given in ED. Head of Bead elevated Strict Intake and Ouput Fluid/Salt Restriction Meds: Lasix 40mg IVP BID --> decreased to Lasix 20mg IV BID Metoprolol 25mg PO Daily Normocytic Anemia Ddx: CKD, Leukemia Anemia Workup Ordered Monitor H/H Meds: ProCrit [id number] (Last dose on 03/22/18) Folic acid 1mg PO daily CKD (Stage V) Est. GFR 17, Cr-2.7 on Admission Nephrology Consulted (Dr. 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 Incentive spirometer Q1 hr Patient to use BIPAP during night and NC during day. Case discussed with Dr. Amy Seals, PGY1 <Reji Reyes H - Last Filed: 03/28/18 18:21> Objective - Vital Signs/Intake and Output Vital Signs (last 24 hours): Temp Pulse Resp BP Pulse Ox 99.3 F 99 H 24 147/52 L 95 03/28/18 15:00 03/28/18 16:52 03/28/18 15:00 03/28/18 15:00 03/28/18 15:00 Intake and Output: 03/28/18 03/28/18 06:59 18:59 Intake Total 820 500 Balance 820 500 - Medications Medications: Current Medications Acetaminophen (Tylenol 325mg Tab) 650 mg PO Q6 PRN PRN Reason: Fever >100.4 F Last Admin: 03/25/18 19:39 Dose: 650 mg Acetylcysteine (Acetylcysteine 20%) 4 ml INH Q4H [facility] Last Admin: 03/28/18 14:02 Dose: 4 ml Albuterol/Ipratropium (Duoneb 3 Mg/0.5 Mg (3 Ml) Ud) 3 ml INH Q4H [facility] Last Admin: 03/28/18 14:02 Dose: 3 ml Amlodipine Besylate (Norvasc) 10 mg PO DAILY [facility] Last Admin: 03/28/18 09:56 Dose: 10 mg Benzonatate (Tessalon Perles) 100 mg PO TID [facility] Last Admin: 03/28/18 17:59 Dose: 100 mg Calcium Acetate (Phoslo) 667 mg PO TID [facility] Last Admin: 03/28/18 17:59 Dose: 667 mg Dextrose (Dextrose 50% Inj) 0 ml IV STAT PRN; Protocol PRN Reason: Hypoglycemia Protocol Dextrose (Glutose 15) 0 gm PO ONCE PRN; Protocol PRN Reason: Hypoglycemia Protocol Enoxaparin Sodium (Lovenox) 30 mg SC DAILY [facility] Last Admin: 03/28/18 09:55 Dose: 30 mg Fenofibrate (Tricor) 48 mg PO DAILY [facility] Last Admin: 03/28/18 09:56 Dose: 48 mg Folic Acid (Folic Acid) 1 mg PO DAILY [facility] Last Admin: 03/28/18 09:57 Dose: 1 mg Furosemide (Lasix) 20 mg IVP Q12H [facility] Last Admin: 03/28/18 12:49 Dose: 20 mg Glucagon (Glucagen Diagnostic Kit) 0 mg IM STAT PRN; Protocol PRN Reason: Hypoglycemia Protocol Meropenem 500 mg/ Sodium (Chloride) 100 mls @ 100 mls/hr IVPB Q8H [facility]; Protocol Last Admin: 03/28/18 17:59 Dose: 100 mls/hr Dextrose (Dextrose 5% In Water 1000 Ml) 1,000 mls @ 0 mls/hr IV .Q0M PRN; Protocol PRN Reason: Hypoglycemia Protocol Insulin Human Regular (Novolin R) 0 unit SC ACHS [facility]; Protocol Last Admin: 03/28/18 17:58 Dose: 1 units Levothyroxine Sodium (Synthroid) 100 mcg PO DAILY@0630 [facility] Last Admin: 03/28/18 05:53 Dose: 100 mcg Metolazone (Zaroxolyn) 5 mg PO DAILY [facility] Last Admin: 03/28/18 16:46 Dose: 5 mg Metoprolol Succinate (Toprol Xl) 25 mg PO DAILY [facility] Last Admin: 03/28/18 09:57 Dose: 25 mg Prasugrel (Effient) 10 mg PO DAILY [facility] Last Admin: 03/28/18 09:56 Dose: 10 mg Rosuvastatin Calcium (Crestor) 10 mg PO HS [facility] Last Admin: 03/27/18 21:29 Dose: 10 mg Saccharomyces Boulardii (Florastor) 250 mg PO BID [facility] Last Admin: 03/28/18 17:59 Dose: 250 mg Sitagliptin Phosphate (Januvia) 25 mg PO DAILY [facility] Last Admin: 03/28/18 09:56 Dose: 25 mg - Labs Labs: 03/28/18 07:12 03/28/18 07:12 PT 15.0 SECONDS (9.7-12.2) H 03/27/18 00:47 INR 1.4 03/27/18 00:47 APTT 34 SECONDS (21-34) 03/27/18 00:47 Attending/Attestation - Attestation I have personally seen and examined this patient.: Yes I have fully participated in the care of the patient.: Yes I have reviewed all pertinent clinical information, including history, physical exam and plan: Yes Notes (Text): Medical attending: Patient was seen and examined by me with the medical res idents The patient was not in any acute distress when I came and saw her. Family member present When we saw her she was off of the bipap with nasal cannula and said she felt well with this. At night will go back to bipap. Pulmonology at this moment does not think patient needs a CT surgery evaluation at this time. Reji Reyes
[2018-03-28] MEDS: Enoxaparin 30 mg Syringe SC SCH (09:55)
[2018-03-28] MEDS: Saccharomyces Boulardi 250 mg Cap PO SCH ×2 (09:56→17:59)
[2018-03-28] MEDS: Metoprolol Succinate 25 mg XL Tab PO SCH (09:57)
--- NOTE | 2018-03-28 12:19 | CARD ---
APPROVED REPORT Date of service: 03/27/2018 EKG Measurement Heart [id number] <Conclusion> Normal sinus rhythm Normal ECG
--- NOTE | 2018-03-28 14:43 | CP.PCM.PN ---
Subjective - Date & Time of Evaluation Date of Evaluation: 03/28/18 Time of Evaluation: 14:40 - Subjective Subjective: Still orthopneic, CAUSEY worse CXR with CHF pattern GFR= 12 Hg decreased s/p thoracentesis- 500ml Objective - Vital Signs/Intake and Output Vital Signs (last 24 hours): Temp Pulse Resp BP Pulse Ox 97.8 F 86 20 135/82 95 03/28/18 07:54 03/28/18 12:48 03/28/18 07:54 03/28/18 12:49 03/28/18 07:54 Intake and Output: 03/28/18 03/28/18 06:59 18:59 Intake Total 820 Balance 820 - Medications Medications: Current Medications Acetaminophen (Tylenol 325mg Tab) 650 mg PO Q6 PRN PRN Reason: Fever >100.4 F Last Admin: 03/25/18 19:39 Dose: 650 mg Acetylcysteine (Acetylcysteine 20%) 4 ml INH Q4H [facility] Last Admin: 03/28/18 14:02 Dose: 4 ml Albuterol/Ipratropium (Duoneb 3 Mg/0.5 Mg (3 Ml) Ud) 3 ml INH Q4H [facility] Last Admin: 03/28/18 14:02 Dose: 3 ml Amlodipine Besylate (Norvasc) 10 mg PO DAILY [facility] Last Admin: 03/28/18 09:56 Dose: 10 mg Benzonatate (Tessalon Perles) 100 mg PO TID [facility] Last Admin: 03/28/18 13:39 Dose: 100 mg Dextrose (Dextrose 50% Inj) 0 ml IV STAT PRN; Protocol PRN Reason: Hypoglycemia Protocol Dextrose (Glutose 15) 0 gm PO ONCE PRN; Protocol PRN Reason: Hypoglycemia Protocol Enoxaparin Sodium (Lovenox) 30 mg SC DAILY [facility] Last Admin: 03/28/18 09:55 Dose: 30 mg Fenofibrate (Tricor) 48 mg PO DAILY [facility] Last Admin: 03/28/18 09:56 Dose: 48 mg Folic Acid (Folic Acid) 1 mg PO DAILY [facility] Last Admin: 03/28/18 09:57 Dose: 1 mg Furosemide (Lasix) 20 mg IVP Q12H [facility] Last Admin: 03/28/18 12:49 Dose: 20 mg Glucagon (Glucagen Diagnostic Kit) 0 mg IM STAT PRN; Protocol PRN Reason: Hypoglycemia Protocol Meropenem 500 mg/ Sodium (Chloride) 100 mls @ 100 mls/hr IVPB Q8H [facility]; Protocol Last Admin: 03/28/18 08:42 Dose: 100 mls/hr Dextrose (Dextrose 5% In Water 1000 Ml) 1,000 mls @ 0 mls/hr IV .Q0M PRN; Protocol PRN Reason: Hypoglycemia Protocol Insulin Human Regular (Novolin R) 0 unit SC ACHS [facility]; Protocol Last Admin: 03/28/18 11:23 Dose: Not Given Levothyroxine Sodium (Synthroid) 100 mcg PO DAILY@0630 [facility] Last Admin: 03/28/18 05:53 Dose: 100 mcg Metoprolol Succinate (Toprol Xl) 25 mg PO DAILY [facility] Last Admin: 03/28/18 09:57 Dose: 25 mg Prasugrel (Effient) 10 mg PO DAILY [facility] Last Admin: 03/28/18 09:56 Dose: 10 mg Rosuvastatin Calcium (Crestor) 10 mg PO HS [facility] Last Admin: 03/27/18 21:29 Dose: 10 mg Saccharomyces Boulardii (Florastor) 250 mg PO BID [facility] Last Admin: 03/28/18 09:56 Dose: 250 mg Sitagliptin Phosphate (Januvia) 25 mg PO DAILY [facility] Last Admin: 03/28/18 09:56 Dose: 25 mg - Labs Labs: 03/28/18 07:12 03/28/18 07:12 PT 15.0 SECONDS (9.7-12.2) H 03/27/18 00:47 INR 1.4 03/27/18 00:47 APTT 34 SECONDS (21-34) 03/27/18 00:47 - Constitutional Appears: In Acute Distress, Chronically Ill - Head Exam Head Exam: ATRAUMATIC, NORMAL INSPECTION - Eye Exam Eye Exam: EOMI, Normal appearance - Neck Exam Neck Exam: Normal Inspection. absent: Tenderness - Respiratory Exam Respiratory Exam: Rhonchi, Respiratory Distress - Cardiovascular Exam Cardiovascular Exam: REGULAR RHYTHM, +S1 - GI/Abdominal Exam GI & Abdominal Exam: Soft. absent: Tenderness - Extremities Exam Extremities Exam: Pedal Edema. absent: Tenderness - Neurological Exam Neurological Exam: Awake, CN II-XII Intact - Skin Skin Exam: Dry, Warm Assessment and Plan (1) CKD (chronic kidney disease) stage 5, GFR less than 15 ml/min Status: Acute (2) CHF (congestive heart failure) Status: Acute (3) CMML (chronic myelomonocytic leukemia) Status: Acute (4) Chronic anemia Status: Acute - Assessment and Plan (Free Text) Plan: Increase diuretics CIPRIANO possible with heme dx? add ca acetate consider dialysis if not better
--- NOTE | 2018-03-28 15:56 | CP.PCM.CON ---
History of Present Illness - History of Present Illness History of Present Illness: 82 y/o female with multiple medical problems is admitted for dyspnea. She is found to have pulmonay effusion, pneumonia and pulmonary congestion. Patient has stage V CKD. She has been on and off BiPAP. Currently on ABx. WBC count is el evated and patient remains afebrile. Review of Systems - Review of Systems All systems: reviewed and no additional remarkable complaints except (as mentioned in HPI) Past Patient History - Infectious Disease Hx of Infectious Diseases: None - Tetanus Immunizations Tetanus Immunization: Unknown - Past Medical History & Family History Past Medical History?: Yes - Past Social History Smoking Status: Never Smoked - CARDIAC Hx Hypertension: Yes - PULMONARY Hx Chronic Obstructive Pulmonary Disease (COPD): Yes - NEUROLOGICAL Hx Neurological Disorder: No - HEENT Hx HEENT Problems: Yes Hx Cataracts: Yes Other/Comment: corneal replacement both eyes - RENAL Hx Chronic Kidney Disease: Yes Hx Kidney Stones: Yes - ENDOCRINE/METABOLIC Hx Hypothyroidism: Yes - HEMATOLOGICAL/ONCOLOGICAL Hx Anemia: Yes - INTEGUMENTARY Hx Dermatological Problems: No - MUSCULOSKELETAL/RHEUMATOLOGICAL Hx Arthritis: Yes - GASTROINTESTINAL Hx Gastritis: Yes - GENITOURINARY/GYNECOLOGICAL Hx Genitourinary Disorders: No - PSYCHIATRIC Hx Substance Use: No - SURGICAL HISTORY Hx Surgeries: Yes Other/Comment: vascular stents. bone marrow aspiration - ANESTHESIA Hx Anesthesia: Yes Hx Anesthesia Reactions: No Meds Allergies/Adverse Reactions: Allergies Allergy/AdvReac Type Severity Reaction Status Date / Time No Known Allergies Allergy Verified 03/19/17 06:06 - Medications Medications: Current Medications Acetaminophen (Tylenol 325mg Tab) 650 mg PO Q6 PRN PRN Reason: Fever >100.4 F Last Admin: 03/25/18 19:39 Dose: 650 mg Acetylcysteine (Acetylcysteine 20%) 4 ml INH Q4H [facility] Last Admin: 03/28/18 14:02 Dose: 4 ml Albuterol/Ipratropium (Duoneb 3 Mg/0.5 Mg (3 Ml) Ud) 3 ml INH Q4H [facility] Last Admin: 03/28/18 14:02 Dose: 3 ml Amlodipine Besylate (Norvasc) 10 mg PO DAILY [facility] Last Admin: 03/28/18 09:56 Dose: 10 mg Benzonatate (Tessalon Perles) 100 mg PO TID [facility] Last Admin: 03/28/18 13:39 Dose: 100 mg Calcium Acetate (Phoslo) 667 mg PO TID [facility] Dextrose (Dextrose 50% Inj) 0 ml IV STAT PRN; Protocol PRN Reason: Hypoglycemia Protocol Dextrose (Glutose 15) 0 gm PO ONCE PRN; Protocol PRN Reason: Hypoglycemia Protocol Enoxaparin Sodium (Lovenox) 30 mg SC DAILY [facility] Last Admin: 03/28/18 09:55 Dose: 30 mg Fenofibrate (Tricor) 48 mg PO DAILY [facility] Last Admin: 03/28/18 09:56 Dose: 48 mg Folic Acid (Folic Acid) 1 mg PO DAILY [facility] Last Admin: 03/28/18 09:57 Dose: 1 mg Furosemide (Lasix) 20 mg IVP Q12H [facility] Last Admin: 03/28/18 12:49 Dose: 20 mg Glucagon (Glucagen Diagnostic Kit) 0 mg IM STAT PRN; Protocol PRN Reason: Hypoglycemia Protocol Meropenem 500 mg/ Sodium (Chloride) 100 mls @ 100 mls/hr IVPB Q8H [facility]; Protocol Last Admin: 03/28/18 08:42 Dose: 100 mls/hr Dextrose (Dextrose 5% In Water 1000 Ml) 1,000 mls @ 0 mls/hr IV .Q0M PRN; Protocol PRN Reason: Hypoglycemia Protocol Insulin Human Regular (Novolin R) 0 unit SC ACHS [facility]; Protocol Last Admin: 03/28/18 11:23 Dose: Not Given Levothyroxine Sodium (Synthroid) 100 mcg PO DAILY@0630 [facility] Last Admin: 03/28/18 05:53 Dose: 100 mcg Metolazone (Zaroxolyn) 5 mg PO DAILY [facility] Metoprolol Succinate (Toprol Xl) 25 mg PO DAILY [facility] Last Admin: 03/28/18 09:57 Dose: 25 mg Prasugrel (Effient) 10 mg PO DAILY [facility] Last Admin: 03/28/18 09:56 Dose: 10 mg Rosuvastatin Calcium (Crestor) 10 mg PO HS [facility] Last Admin: 03/27/18 21:29 Dose: 10 mg Saccharomyces Boulardii (Florastor) 250 mg PO BID [facility] Last Admin: 03/28/18 09:56 Dose: 250 mg Sitagliptin Phosphate (Januvia) 25 mg PO DAILY [facility] Last Admin: 03/28/18 09:56 Dose: 25 mg Physical Exam - Head Exam Head Exam: NORMAL INSPECTION - ENT Exam ENT Exam: Mucous Membranes Moist - Respiratory Exam Respiratory Exam: Decreased Breath Sounds, Rhonchi - Cardiovascular Exam Cardiovascular Exam: REGULAR RHYTHM, +S1, +S2 - GI/Abdominal Exam GI & Abdominal Exam: Normal Bowel Sounds, Soft - Extremities Exam Extremities exam: Positive for: pedal edema - Neurological Exam Neurological exam: Alert, Oriented x3 - Psychiatric Exam Psychiatric exam: Normal Affect, Normal Mood - Skin Skin Exam: Normal Color Results - Vital Signs Recent Vital Signs: Last Vital Signs Temp 99.3 F 03/28/18 15:00 Pulse 100 H 03/28/18 15:00 Resp 24 03/28/18 15:00 BP 147/52 L 03/28/18 15:00 Pulse Ox 95 03/28/18 15:00 - Labs Result Diagrams: 03/28/18 07:12 03/28/18 07:12 Labs: Laboratory Results - last 24 hr 03/24/18 03/26/18 03/26/18 19:39 14:00 14:00 WBC RBC Hgb Hct MCV MCH MCHC RDW Plt Count MPV Neut % (Auto) Lymph % (Auto) Otero % (Auto) Eos % (Auto) Baso % (Auto) Neut # (Auto) Lymph # (Auto) Otero # (Auto) Eos # (Auto) Baso # (Auto) Neutrophils % (Manual) Band Neutrophils % Lymphocytes % (Manual) Reactive Lymphs % Monocytes % (Manual) Eosinophils % (Manual) Basophils % (Manual) Metamyelocytes % Myelocytes % Nucleated RBC % Platelet Estimate Anisocytosis (manual) Sodium Potassium Chloride Carbon Dioxide Anion Gap BUN Creatinine Est GFR ( Amer) Est GFR (Non-Af Amer) POC Glucose (mg/dL) Random Glucose Calcium Phosphorus Magnesium Total Bilirubin AST ALT Alkaline Phosphatase Total Protein Albumin Globulin Albumin/Globulin Ratio Pleural Total Protein Pleural LDH 261 Pleural Glucose 199 Random Vancomycin Beta-(1,3)-D-Glucan 32 Plavix Genotype Interp Negative 03/26/18 03/27/18 03/27/18 14:00 16:06 21:42 WBC RBC Hgb Hct MCV MCH MCHC RDW Plt Count MPV Neut % (Auto) Lymph % (Auto) Otero % (Auto) Eos % (Auto) Baso % (Auto) Neut # (Auto) Lymph # (Auto) Otero # (Auto) Eos # (Auto) Baso # (Auto) Neutrophils % (Manual) Band Neutrophils % Lymphocytes % (Manual) Reactive Lymphs % Monocytes % (Manual) Eosinophils % (Manual) Basophils % (Manual) Metamyelocytes % Myelocytes % Nucleated RBC % Platelet Estimate Anisocytosis (manual) Sodium Potassium Chloride Carbon Dioxide Anion Gap BUN Creatinine Est GFR ( Amer) Est GFR (Non-Af Amer) POC Glucose (mg/dL) 151 H 139 H Random Glucose Calcium Phosphorus Magnesium Total Bilirubin AST ALT Alkaline Phosphatase Total Protein Albumin Globulin Albumin/Globulin Ratio Pleural Total Protein 3.5 Pleural LDH Pleural Glucose Random Vancomycin Beta-(1,3)-D-Glucan Plavix Genotype Interp 03/28/18 03/28/18 03/28/18 06:18 07:12 07:12 WBC 24.0 H RBC 2.54 L Hgb 7.6 L Hct 23.0 L MCV 90.6 MCH 29.8 MCHC 32.9 L RDW 16.6 H Plt Count 115 L MPV 10.1 Neut % (Auto) 61.9 Lymph % (Auto) 9.6 L Otero % (Auto) 27.4 H Eos % (Auto) 0.8 Baso % (Auto) 0.3 Neut # (Auto) 14.9 H Lymph # (Auto) 2.3 Otero # (Auto) 6.6 H Eos # (Auto) 0.2 Baso # (Auto) 0.1 Neutrophils % (Manual) 61 Band Neutrophils % 4 H Lymphocytes % (Manual) 8 L Reactive Lymphs % 1 H Monocytes % (Manual) 20 H Eosinophils % (Manual) 2 Basophils % (Manual) 1 Metamyelocytes % 1 H Myelocytes % 2 H Nucleated RBC % 1 H Platelet Estimate Normal Anisocytosis (manual) Slight Sodium 135 Potassium 4.0 Chloride 98 Carbon Dioxide 26 Anion Gap 16 BUN 67 H Creatinine 3.6 H Est GFR ( Amer) 15 Est GFR (Non-Af Amer) 12 POC Glucose (mg/dL) 95 Random Glucose 101 Calcium 8.5 L Phosphorus 5.7 H Magnesium 2.2 Total Bilirubin 0.6 AST 26 ALT 14 Alkaline Phosphatase 38 Total Protein 7.4 Albumin 3.2 L Globulin 4.2 H Albumin/Globulin Ratio 0.8 L Pleural Total Protein Pleural LDH Pleural Glucose Random Vancomycin Beta-(1,3)-D-Glucan Plavix Genotype Interp 03/28/18 03/28/18 07:12 11:06 WBC RBC Hgb Hct MCV MCH MCHC RDW Plt Count MPV Neut % (Auto) Lymph % (Auto) Otero % (Auto) Eos % (Auto) Baso % (Auto) Neut # (Auto) Lymph # (Auto) Otero # (Auto) Eos # (Auto) Baso # (Auto) Neutrophils % (Manual) Band Neutrophils % Lymphocytes % (Manual) Reactive Lymphs % Monocytes % (Manual) Eosinophils % (Manual) Basophils % (Manual) Metamyelocytes % Myelocytes % Nucleated RBC % Platelet Estimate Anisocytosis (manual) Sodium Potassium Chloride Carbon Dioxide Anion Gap BUN Creatinine Est GFR ( Amer) Est GFR (Non-Af Amer) POC Glucose (mg/dL) 125 H Random Glucose Calcium Phosphorus Magnesium Total Bilirubin AST ALT Alkaline Phosphatase Total Protein Albumin Globulin Albumin/Globulin Ratio Pleural Total Protein Pleural LDH Pleural Glucose Random Vancomycin 21.1 Beta-(1,3)-D-Glucan Plavix Genotype Interp Assessment & Plan (1) CHF (congestive heart failure) Status: Acute (2) CKD (chronic kidney disease) stage 5, GFR less than 15 ml/min Status: Acute (3) Pleural effusion Status: Acute (4) COPD (chronic obstructive pulmonary disease) Status: Acute (5) Diabetes Status: Acute (6) Pneumonia Status: Acute - Assessment and Plan (Free Text) Plan: BiPAP as needed Left sided effusion is small and part of the left effusion is loculated Patient needs a repeat CT chest without contrast - can be done once patient is able to lie down flat Needs agressive diuresis Spoke to family regarding need for HD and they are agrreable Continue Abx Follow Cr DVT/GI prophalaxis
[2018-03-28] MEDS: metOLazone 5 MG TAB PO SCH (16:46)
--- NOTE | 2018-03-28 18:05 | CP.PCM.PN ---
Subjective - Date & Time of Evaluation Date of Evaluation: 03/28/18 Time of Evaluation: 09:00 - Subjective Subjective: low grade temps and leukocytosis seen by pulm cultures all neg legionella, mycoplasma neg TB quant neg needs HD- Objective - Vital Signs/Intake and Output Vital Signs (last 24 hours): Temp Pulse Resp BP Pulse Ox 99.3 F 99 H 24 147/52 L 95 03/28/18 15:00 03/28/18 16:52 03/28/18 15:00 03/28/18 15:00 03/28/18 15:00 Intake and Output: 03/28/18 03/28/18 06:59 18:59 Intake Total 820 500 Balance 820 500 - Medications Medications: Current Medications Acetaminophen (Tylenol 325mg Tab) 650 mg PO Q6 PRN PRN Reason: Fever >100.4 F Last Admin: 03/25/18 19:39 Dose: 650 mg Acetylcysteine (Acetylcysteine 20%) 4 ml INH Q4H [facility] Last Admin: 03/28/18 14:02 Dose: 4 ml Albuterol/Ipratropium (Duoneb 3 Mg/0.5 Mg (3 Ml) Ud) 3 ml INH Q4H [facility] Last Admin: 03/28/18 14:02 Dose: 3 ml Amlodipine Besylate (Norvasc) 10 mg PO DAILY [facility] Last Admin: 03/28/18 09:56 Dose: 10 mg Benzonatate (Tessalon Perles) 100 mg PO TID [facility] Last Admin: 03/28/18 17:59 Dose: 100 mg Calcium Acetate (Phoslo) 667 mg PO TID [facility] Last Admin: 03/28/18 17:59 Dose: 667 mg Dextrose (Dextrose 50% Inj) 0 ml IV STAT PRN; Protocol PRN Reason: Hypoglycemia Protocol Dextrose (Glutose 15) 0 gm PO ONCE PRN; Protocol PRN Reason: Hypoglycemia Protocol Enoxaparin Sodium (Lovenox) 30 mg SC DAILY [facility] Last Admin: 03/28/18 09:55 Dose: 30 mg Fenofibrate (Tricor) 48 mg PO DAILY [facility] Last Admin: 03/28/18 09:56 Dose: 48 mg Folic Acid (Folic Acid) 1 mg PO DAILY [facility] Last Admin: 03/28/18 09:57 Dose: 1 mg Furosemide (Lasix) 20 mg IVP Q12H [facility] Last Admin: 03/28/18 12:49 Dose: 20 mg Glucagon (Glucagen Diagnostic Kit) 0 mg IM STAT PRN; Protocol PRN Reason: Hypoglycemia Protocol Meropenem 500 mg/ Sodium (Chloride) 100 mls @ 100 mls/hr IVPB Q8H [facility]; Protocol Last Admin: 03/28/18 17:59 Dose: 100 mls/hr Dextrose (Dextrose 5% In Water 1000 Ml) 1,000 mls @ 0 mls/hr IV .Q0M PRN; Protocol PRN Reason: Hypoglycemia Protocol Insulin Human Regular (Novolin R) 0 unit SC ACHS [facility]; Protocol Last Admin: 03/28/18 17:58 Dose: 1 units Levothyroxine Sodium (Synthroid) 100 mcg PO DAILY@0630 [facility] Last Admin: 03/28/18 05:53 Dose: 100 mcg Metolazone (Zaroxolyn) 5 mg PO DAILY [facility] Last Admin: 03/28/18 16:46 Dose: 5 mg Metoprolol Succinate (Toprol Xl) 25 mg PO DAILY [facility] Last Admin: 03/28/18 09:57 Dose: 25 mg Prasugrel (Effient) 10 mg PO DAILY [facility] Last Admin: 03/28/18 09:56 Dose: 10 mg Rosuvastatin Calcium (Crestor) 10 mg PO HS [facility] Last Admin: 03/27/18 21:29 Dose: 10 mg Saccharomyces Boulardii (Florastor) 250 mg PO BID [facility] Last Admin: 03/28/18 17:59 Dose: 250 mg Sitagliptin Phosphate (Januvia) 25 mg PO DAILY [facility] Last Admin: 03/28/18 09:56 Dose: 25 mg - Labs Labs: 03/28/18 07:12 03/28/18 07:12 PT 15.0 SECONDS (9.7-12.2) H 03/27/18 00:47 INR 1.4 03/27/18 00:47 APTT 34 SECONDS (21-34) 03/27/18 00:47 - Constitutional Appears: Non-toxic, Chronically Ill - Head Exam Head Exam: NORMOCEPHALIC - Eye Exam Eye Exam: absent: Scleral icterus - ENT Exam ENT Exam: Mucous Membranes Dry - Neck Exam Neck Exam: absent: Lymphadenopathy - Respiratory Exam Respiratory Exam: Decreased Breath Sounds, Rales - Cardiovascular Exam Cardiovascular Exam: REGULAR RHYTHM - GI/Abdominal Exam GI & Abdominal Exam: Distended, Soft - Rectal Exam Rectal Exam: Deferred - Exam Exam: NORMAL INSPECTION - Extremities Exam Extremities Exam: Pedal Edema - Back Exam Back Exam: absent: CVA tenderness (L), CVA tenderness (R) Assessment and Plan (1) CHF (congestive heart failure) Status: Acute (2) Leukocytosis Status: Acute (3) Pleural effusion Status: Acute (4) LUCRECIA (acute kidney injury) Status: Acute (5) Pneumonia Status: Acute - Assessment and Plan (Free Text) Assessment: all cultures neg On IV merrem Vanco d/c'd based on neg cultures Plan: in need of HD rx Dr Langston on board
[2018-03-29] MEDS: Albuterol-Ipratrop 3 mg / 0.5 (3 ml) UD INH SCH ×7 (00:30→17:27)
[2018-03-29] MEDS: Acetylcysteine 20% Inhal Soln (4ml) INH SCH ×6 (00:30→17:28)
[2018-03-29] MEDS: Meropenem 500 MG in Sodium Chloride 0.9% 100 ML IVPB SCH ×4 (00:47→15:05)
[2018-03-29] MEDS: Levothyroxine 100 MCG TAB PO SCH (05:38)
--- NOTE | 2018-03-29 07:07 | CP.PCM.PN ---
<Emile Seals - Last Filed: 03/29/18 17:53> Subjective - Date & Time of Evaluation Date of Evaluation: 03/29/18 Time of Evaluation: 07:07 - Subjective Subjective: Progress note for Hospitalist service Patient seen and examined at bedside. She is currently using BIPAP and states she was not able to sleep well last night. She denies fevers, chills, headache, dizziness, chest pain, palpitations, abdominal pain, nausea, vomiting, diarrhea, constipation, leg pain. Objective - Vital Signs/Intake and Output Vital Signs (last 24 hours): Temp Pulse Resp BP Pulse Ox 98.2 F 95 H 20 152/70 H 99 03/29/18 05:35 03/29/18 05:35 03/29/18 05:35 03/29/18 05:35 03/29/18 05:35 Intake and Output: 03/29/18 03/29/18 06:59 18:59 Intake Total 500 Balance 500 - Medications Medications: Current Medications Acetaminophen (Tylenol 325mg Tab) 650 mg PO Q6 PRN PRN Reason: Fever >100.4 F Last Admin: 03/29/18 05:59 Dose: 650 mg Acetylcysteine (Acetylcysteine 20%) 4 ml INH Q4H [facility] Last Admin: 03/29/18 04:05 Dose: Not Given Albuterol/Ipratropium (Duoneb 3 Mg/0.5 Mg (3 Ml) Ud) 3 ml INH Q4H [facility] Last Admin: 03/29/18 04:05 Dose: Not Given Amlodipine Besylate (Norvasc) 10 mg PO DAILY [facility] Last Admin: 03/28/18 09:56 Dose: 10 mg Benzonatate (Tessalon Perles) 100 mg PO TID [facility] Last Admin: 03/28/18 17:59 Dose: 100 mg Calcium Acetate (Phoslo) 667 mg PO TID [facility] Last Admin: 03/28/18 17:59 Dose: 667 mg Dextrose (Dextrose 50% Inj) 0 ml IV STAT PRN; Protocol PRN Reason: Hypoglycemia Protocol Dextrose (Glutose 15) 0 gm PO ONCE PRN; Protocol PRN Reason: Hypoglycemia Protocol Enoxaparin Sodium (Lovenox) 30 mg SC DAILY [facility] Last Admin: 03/28/18 09:55 Dose: 30 mg Fenofibrate (Tricor) 48 mg PO DAILY [facility] Last Admin: 03/28/18 09:56 Dose: 48 mg Folic Acid (Folic Acid) 1 mg PO DAILY [facility] Last Admin: 03/28/18 09:57 Dose: 1 mg Furosemide (Lasix) 20 mg IVP Q12H [facility] Last Admin: 03/29/18 00:37 Dose: 20 mg Glucagon (Glucagen Diagnostic Kit) 0 mg IM STAT PRN; Protocol PRN Reason: Hypoglycemia Protocol Meropenem 500 mg/ Sodium (Chloride) 100 mls @ 100 mls/hr IVPB Q8H [facility]; Protocol Last Admin: 03/29/18 00:47 Dose: 100 mls/hr Insulin Human Regular (Novolin R) 0 unit SC ACHS [facility]; Protocol Last Admin: 03/28/18 21:27 Dose: Not Given Levothyroxine Sodium (Synthroid) 100 mcg PO DAILY@0630 [facility] Last Admin: 03/29/18 05:38 Dose: 100 mcg Metolazone (Zaroxolyn) 5 mg PO DAILY [facility] Last Admin: 03/28/18 16:46 Dose: 5 mg Metoprolol Succinate (Toprol Xl) 25 mg PO DAILY [facility] Last Admin: 03/28/18 09:57 Dose: 25 mg Prasugrel (Effient) 10 mg PO DAILY [facility] Last Admin: 03/28/18 09:56 Dose: 10 mg Rosuvastatin Calcium (Crestor) 10 mg PO HS [facility] Last Admin: 03/28/18 21:11 Dose: 10 mg Saccharomyces Boulardii (Florastor) 250 mg PO BID [facility] Last Admin: 03/28/18 17:59 Dose: 250 mg Sitagliptin Phosphate (Januvia) 25 mg PO DAILY [facility] Last Admin: 03/28/18 09:56 Dose: 25 mg - Labs Labs: 03/28/18 07:12 03/28/18 07:12 PT 15.0 SECONDS (9.7-12.2) H 03/27/18 00:47 INR 1.4 03/27/18 00:47 APTT 34 SECONDS (21-34) 03/27/18 00:47 - Constitutional Appears: Other (Appears short of breath, on BIPAP ) - Head Exam Head Exam: ATRAUMATIC, NORMOCEPHALIC - Eye Exam Eye Exam: EOMI - ENT Exam ENT Exam: Mucous Membranes Moist - Neck Exam Neck Exam: Full ROM - Respiratory Exam Respiratory Exam: Wheezes. absent: Rales, Rhonchi, Respiratory Distress, Stridor Additional comments: Appears tachypneic - Cardiovascular Exam Cardiovascular Exam: REGULAR RHYTHM, +S1, +S2. absent: Gallop, Rubs, Murmur - GI/Abdominal Exam GI & Abdominal Exam: Soft, Normal Bowel Sounds. absent: Distended, Firm, Guarding, Rigid, Tenderness, Diminished Bowel Sounds, Organomegaly - Extremities Exam Extremities Exam: absent: Calf Tenderness, Pedal Edema - Neurological Exam Neurological Exam: Alert, Awake, Oriented x3 - Psychiatric Exam Psychiatric exam: Normal Affect, Normal Mood - Skin Skin Exam: Dry, Intact, Warm Assessment and Plan - Assessment and Plan (Free Text) Plan: Assessment: 82 year old female with a PMHx of COPD, PVD CHF (w/ preserved EF), HTN, Leukemia (not on tx), HLD, CKD, Hypothyrodism, and Pneumonia admitted for evaluation and treatment of hospital acquired pneumonia. CT scan on admission showed small b/l pleural effusions. s/p L thoracentesis (03/26) POD#3 Plan: Healthcare Associated Pneumonia w/ Pleural Effusion Left lower lobe consolidation CXR (03/24): Pulmonary venous congestive changes with near complete opacification left hemithorax consistent with large effusion and atelectasis. There has been progression of infiltrate changes right mid to lower lung field Chest CT (03/24): Moderately large left-sided effusion with left lower and to a lesser degree upper lobe atelectasis. Small right-sided effusion and minor right basilar atelectasis. Pulmonary venous congestive changes with ground- glass opacities. Repeat CXR (03/26, 03/27): improving, stable pulm edema, R>L Chest CT 03/27/18 Left lower lobe consolidation with mild patchy atelectatic with small effusion; left-sided effusion has decreased however the L ectatic changes have progressed. Atelectatic and or infiltrate changes in the right lung base and right upper lobe with small right-sided effusion increased from prior exam. Underlying pulmonary vascular congestive changes. Significant atherosclerotic disease involving the abdominal aorta and major branch vessels as above. Chronic appearing anterior wedge compression fractures of the T12 and L1 segments with retropulsion of the posterior superior corners of each segment resulting in canal narrowing. Repeat CXR 03/29 increasing pulmonary edema ID Consulted Dr. Rodriguez, help appreciated Pulmonology Consulted Dr. Hernandez, help appreciated As per Dr. Hernandez's note, who recommended repeat CT chest without contrast, once patient is able to able to lie flat. IR Consulted (Dr. Longoria), for Thoracentesis. Patient had thoracentesis on 03/26, with 500cc fluid removed. Fluid analysis: Bloody appearance, 943 WBC, 82393 RBCs, [address], 67 neutrophils, 19 lymphocytes, 14 monocytes/macrophages, moderate mesothelial and macrophages seen on smear. Body fluid culture prelim no growth for 2 days. Total protein 3.5. Pleural LDH 261. Pleural glucose 199. Incentive Spirometery Q1 Currently on BiPAP s/p [employer] on 03/27. Titrate to SpO2 >94%. ProCal negative Legionella negative Mycoplasma negative TB quant negative Beta 1,3 D glucan 32 Blood Culture - neg x4 days Sputum Culture - normal oral rossi Meds: MucoMyst Q4H [facility] DuoNebs Q4H [facility] Tessalon Perles 100mg PO TID Meropenem 500mg Q8H [facility] per ID. Vancomycin 1g Daily [facility] (started 03/24) (03/27: random vanc 24.5 - held) -> discontinued 03/27 Tylenol 650mg PRN Lasix 40mg IVP BID --> decreased to Lasix 20mg IV BID Diastolic CHF, with preserved EF Chronic - stable ECHO (03/04/18): Grade II Pseudonormal filling dynamics, mild Pulml HTN, 60-65% EF EKG : NSR @ 92 BPM, No acute ST/T wave changes. BNP on Admission - 8470. CXR on Admission shows Pulm Congestion. 40mg Lasix Given in ED. Head of Bead elevated Strict Intake and Ouput Fluid/Salt Restriction Meds: Lasix 40mg IVP BID --> decreased to Lasix 20mg IV BID Metoprolol 25mg PO Daily Normocytic Anemia Ddx: CKD, Leukemia Anemia Workup Ordered Monitor H/H Meds: ProCrit [id number] (Last dose on 03/22/18) Folic acid 1mg PO daily CKD (Stage V), Est. GFR 17, Cr-2.7 on Admission Nephrology Consulted (Dr. Leach) No fluids due to CHF Renally Dose Medications Metolazone 5mg PO daily Creatinine has worsened during hospitalization, currently 4.[address] Langston who recommended HD. Family at bedside agreeable to HD. Plan for Shiley/permacath Effient/Lovenox held Vascular Surgery Dr. Lindquist consulted, help appreciated. Case discussed with patient's collar baster Dr. Lopez Day ([phone]) who stated that she was okay with patient receiving Epogen with dialysis. HTN/CAD Meds: Amlodipine 10mg PO Daily Lasix 20 BID Metoprolol 25mg PO Daily Prasugrel 10mg PO Daily (held) Rosuvastatin 10mg PO HS HLD Meds: Fenofibrate 48mg PO Daily Rosuvastatin 10mg PO HS Hypothyroidism Meds: Levothyroxine 100mcg Daily Type 2DM Januvia 25mg PO daily ISS History of MDS Patient gets ProCrit Injection every 14days Case discussed with patient's collar baster Dr. Day ([phone]) who stated that she was okay with patient receiving Epogen with dialysis. Proph Lovenox (Renally Dosed) HELD Heart Healthy Diet (2gm Na, 1500ml fluid Restriction, Renal) Florastor 250mg BID PT/OT Aspiration precautions: keep bed elevated to 30 degrees. Incentive spirometer Q1 hr Patient to use BIPAP during night and NC during day. NPO for Shiley/Permacath placement. Case discussed with Dr. Amy Seals, PGY1 <Reji Reyes H - Last Filed: 03/29/18 18:24> Objective - Vital Signs/Intake and Output Vital Signs (last 24 hours): Temp Pulse Resp BP Pulse Ox 98.1 F 97 H 26 H 136/68 94 L 03/29/18 17:00 03/29/18 17:29 03/29/18 17:00 03/29/18 17:00 03/29/18 17:00 Intake and Output: 03/29/18 03/29/18 06:59 18:59 Intake Total 500 329 Balance 500 329 - Medications Medications: Current Medications Acetaminophen (Tylenol 325mg Tab) 650 mg PO Q6 PRN PRN Reason: Fever >100.4 F Last Admin: 03/29/18 05:59 Dose: 650 mg Acetylcysteine (Acetylcysteine 20%) 4 ml INH Q4H [facility] Last Admin: 03/29/18 17:28 Dose: 4 ml Albuterol/Ipratropium (Duoneb 3 Mg/0.5 Mg (3 Ml) Ud) 3 ml INH Q4H [facility] Last Admin: 03/29/18 17:27 Dose: 3 ml Amlodipine Besylate (Norvasc) 10 mg PO DAILY [facility] Last Admin: 03/29/18 10:29 Dose: 10 mg Benzonatate (Tessalon Perles) 100 mg PO TID [facility] Last Admin: 03/29/18 13:54 Dose: 100 mg Calcium Acetate (Phoslo) 667 mg PO TID [facility] Last Admin: 03/29/18 13:54 Dose: 667 mg Dextrose (Dextrose 50% Inj) 0 ml IV STAT PRN; Protocol PRN Reason: Hypoglycemia Protocol Dextrose (Glutose 15) 0 gm PO ONCE PRN; Protocol PRN Reason: Hypoglycemia Protocol Fenofibrate (Tricor) 48 mg PO DAILY [facility] Last Admin: 03/29/18 10:30 Dose: 48 mg Folic Acid (Folic Acid) 1 mg PO DAILY [facility] Last Admin: 03/29/18 10:29 Dose: 1 mg Furosemide (Lasix) 20 mg IVP Q12H [facility] Last Admin: 03/29/18 13:00 Dose: 20 mg Glucagon (Glucagen Diagnostic Kit) 0 mg IM STAT PRN; Protocol PRN Reason: Hypoglycemia Protocol Meropenem 500 mg/ Sodium (Chloride) 100 mls @ 100 mls/hr IVPB Q8H [facility]; Protocol Last Admin: 03/29/18 14:50 Dose: 100 mls Sodium Chloride (Sodium Chloride 0.9%) 1,000 mls @ 50 mls/hr IV .Q20H [facility] Insulin Human Regular (Novolin R) 0 unit SC ACHS [facility]; Protocol Last Admin: 03/29/18 17:49 Dose: Not Given Levothyroxine Sodium (Synthroid) 100 mcg PO DAILY@0630 [facility] Last Admin: 03/29/18 05:38 Dose: 100 mcg Metolazone (Zaroxolyn) 5 mg PO DAILY [facility] Last Admin: 03/29/18 11:00 Dose: 5 mg Metoprolol Succinate (Toprol Xl) 25 mg PO DAILY [facility] Last Admin: 03/29/18 10:30 Dose: 25 mg Rosuvastatin Calcium (Crestor) 10 mg PO HS [facility] Last Admin: 03/28/18 21:11 Dose: 10 mg Saccharomyces Boulardii (Florastor) 250 mg PO BID [facility] Last Admin: 03/29/18 10:29 Dose: 250 mg Sitagliptin Phosphate (Januvia) 25 mg PO DAILY [facility] Last Admin: 03/29/18 10:29 Dose: 25 mg - Labs Labs: 03/29/18 07:34 03/29/18 07:34 PT 14.5 SECONDS (9.7-12.2) H 03/29/18 11:10 INR 1.3 03/29/18 11:10 APTT 36 SECONDS (21-34) H 03/29/18 11:10 Attending/Attestation - Attestation I have personally seen and examined this patient.: Yes I have fully participated in the care of the patient.: Yes I have reviewed all pertinent clinical information, including history, physical exam and plan: Yes Notes (Text): 03/29/18 18:21 Medical attending: Patient was seen and examined by me. Agree with the above note by the medical practitioners The patient was not in any acute distress when I came and saw. She is on the Bipap This being said, her creatine continues to rise and so nephrology has decided that patient benefit from starting HD. Family member is present and is aware. This could very well help prevent repeated occurence of the pleural effusions she has been having Reji Reyes 03/29/18 18:24
[2018-03-29 07:49] LABS: BASO # 0.1 K/uL (0.0-0.2); BASO % 0.2 % (0.0-2.0); EOS # 0.2 K/uL (0.0-0.7); EOS % 0.8 % (0.0-4.0); HEMOGLOBIN 7.3 g/dL (11.0-16.0); LYMPH # 2.7 K/uL (1.0-4.3); LYMPH % 9.3 % (20.0-40.0); MEAN CELL VOLUME 90.4 fL (81.0-99.0); MEAN CORPUSCULAR HEMOGLOBIN 29.3 pg (27.0-31.0); MEAN CORPUSCULAR HGB CONC 32.4 g/dL (33.0-37.0); MEAN PLATELET VOLUME 10.3 fL (7.2-11.7); MONO % 31.4 % (0.0-10.0); NEUT # 16.8 K/uL (1.8-7.0); NEUT % 58.3 % (50.0-75.0); NRBC % 0.6 % (0.0-2.0); PLATELET COUNT 125 K/uL (130-400); RBC 2.49 Mil/uL (3.80-5.20); RED CELL DISTRIBUTION WIDTH 16.6 % (11.5-14.5); WHITE BLOOD COUNT 28.9 K/uL (4.8-10.8)
[2018-03-29 08:07] LABS: ALB/GLOB RATIO 0.8 (1.0-2.1); ALBUMIN 3.5 g/dL (3.5-5.0); CALCIUM 8.8 mg/dl (8.6-10.4)
[2018-03-29] MEDS: (Novolin R) Insulin Human Regular 100 units/ml vial SC SCH ×4 (08:30→23:08)
[2018-03-29 09:07] LABS: BANDS 2 % (0-2); EOSINOPHIL 1 % (0-4); LYMPHOCYTE 12 % (20-40); MONOCYTE 27 % (0-10); NEUTROPHIL 58 % (50-75); NUCLEATED RED BLOOD CELL 1 % (0-0); PLATELET ESTIMATE SLIGHTLY DECREASED (NORMAL); TOTAL CELLS COUNTED 100
[2018-03-29 09:08] LABS: ANISOCYTOSIS SLIGHT
[2018-03-29 09:09] LABS: HYPOCHROMIC SLIGHT
--- NOTE | 2018-03-29 09:24 | CP.PCM.PN ---
Subjective - Date & Time of Evaluation Date of Evaluation: 03/29/18 Time of Evaluation: 09:22 - Subjective Subjective: More dyspneic, orthopneic all the time. On bipap Creat increased to 4.1 Will need dialysis- fully explained to both daughters need for HD Will need permcath- will stop anticoagulants; vascular surgery called HD consent obtained; dialysis post cath placement Objective - Vital Signs/Intake and Output Vital Signs (last 24 hours): Temp Pulse Resp BP Pulse Ox 97.6 F 84 18 145/54 L 94 L 03/29/18 07:45 03/29/18 07:45 03/29/18 07:45 03/29/18 07:45 03/29/18 07:45 Intake and Output: 03/29/18 03/29/18 06:59 18:59 Intake Total 500 Balance 500 - Medications Medications: Current Medications Acetaminophen (Tylenol 325mg Tab) 650 mg PO Q6 PRN PRN Reason: Fever >100.4 F Last Admin: 03/29/18 05:59 Dose: 650 mg Acetylcysteine (Acetylcysteine 20%) 4 ml INH Q4H [facility] Last Admin: 03/29/18 04:05 Dose: Not Given Albuterol/Ipratropium (Duoneb 3 Mg/0.5 Mg (3 Ml) Ud) 3 ml INH Q4H [facility] Last Admin: 03/29/18 04:05 Dose: Not Given Amlodipine Besylate (Norvasc) 10 mg PO DAILY [facility] Last Admin: 03/28/18 09:56 Dose: 10 mg Benzonatate (Tessalon Perles) 100 mg PO TID [facility] Last Admin: 03/28/18 17:59 Dose: 100 mg Calcium Acetate (Phoslo) 667 mg PO TID [facility] Last Admin: 03/28/18 17:59 Dose: 667 mg Dextrose (Dextrose 50% Inj) 0 ml IV STAT PRN; Protocol PRN Reason: Hypoglycemia Protocol Dextrose (Glutose 15) 0 gm PO ONCE PRN; Protocol PRN Reason: Hypoglycemia Protocol Fenofibrate (Tricor) 48 mg PO DAILY [facility] Last Admin: 03/28/18 09:56 Dose: 48 mg Folic Acid (Folic Acid) 1 mg PO DAILY [facility] Last Admin: 03/28/18 09:57 Dose: 1 mg Furosemide (Lasix) 20 mg IVP Q12H [facility] Last Admin: 03/29/18 00:37 Dose: 20 mg Glucagon (Glucagen Diagnostic Kit) 0 mg IM STAT PRN; Protocol PRN Reason: Hypoglycemia Protocol Meropenem 500 mg/ Sodium (Chloride) 100 mls @ 100 mls/hr IVPB Q8H [facility]; Protocol Last Admin: 03/29/18 09:18 Dose: 100 mls/hr Insulin Human Regular (Novolin R) 0 unit SC ACHS [facility]; Protocol Last Admin: 03/29/18 08:30 Dose: Not Given Levothyroxine Sodium (Synthroid) 100 mcg PO DAILY@0630 [facility] Last Admin: 03/29/18 05:38 Dose: 100 mcg Metolazone (Zaroxolyn) 5 mg PO DAILY [facility] Last Admin: 03/28/18 16:46 Dose: 5 mg Metoprolol Succinate (Toprol Xl) 25 mg PO DAILY [facility] Last Admin: 03/28/18 09:57 Dose: 25 mg Rosuvastatin Calcium (Crestor) 10 mg PO HS [facility] Last Admin: 03/28/18 21:11 Dose: 10 mg Saccharomyces Boulardii (Florastor) 250 mg PO BID [facility] Last Admin: 03/28/18 17:59 Dose: 250 mg Sitagliptin Phosphate (Januvia) 25 mg PO DAILY [facility] Last Admin: 03/28/18 09:56 Dose: 25 mg - Labs Labs: 03/29/18 07:34 03/29/18 07:34 PT 15.0 SECONDS (9.7-12.2) H 03/27/18 00:47 INR 1.4 03/27/18 00:47 APTT 34 SECONDS (21-34) 03/27/18 00:47 - Constitutional Appears: In Acute Distress, Chronically Ill - Head Exam Head Exam: ATRAUMATIC, NORMAL INSPECTION - Eye Exam Eye Exam: EOMI, Normal appearance - Neck Exam Neck Exam: Normal Inspection. absent: Tenderness - Respiratory Exam Respiratory Exam: Rhonchi, Respiratory Distress - Cardiovascular Exam Cardiovascular Exam: REGULAR RHYTHM, +S1 - GI/Abdominal Exam GI & Abdominal Exam: Soft. absent: Tenderness - Extremities Exam Extremities Exam: Normal Inspection. absent: Tenderness - Neurological Exam Neurological Exam: Awake, CN II-XII Intact - Skin Skin Exam: Dry, Warm Assessment and Plan (1) CKD (chronic kidney disease) stage 5, GFR less than 15 ml/min Status: Acute (2) CHF (congestive heart failure) Status: Acute (3) CMML (chronic myelomonocytic leukemia) Status: Acute (4) Chronic anemia Status: Acute - Assessment and Plan (Free Text) Plan: Call for permcath Hold anticoagulants Schedule dialysis post permcath insertion Will need blood transfusions- would only do when dialysis started would recommend heme consent for use of EPOGEN as pt with possible leukemia
[2018-03-29] MEDS: Saccharomyces Boulardi 250 mg Cap PO SCH ×2 (10:29→18:21)
[2018-03-29] MEDS: Metoprolol Succinate 25 mg XL Tab PO SCH (10:30)
[2018-03-29] MEDS: metOLazone 5 MG TAB PO SCH (11:00)
[2018-03-29 11:37] LABS: INR 1.3; PROTHROMBIN TIME 14.5 SECONDS (9.7-12.2)
--- NOTE | 2018-03-29 12:47 | CP.PCM.CON ---
History of Present Illness - History of Present Illness History of Present Illness: Vascular surgery consult note for Dr. Plummer Consulted for ESRD needing a permacath Pt is an 82F with history of CKD who presented for SOB. Patient was found to have worsening of her renal functions and a pleural effusion, nephrology wants to start hemodialysis and request evaluation for permacath and AVF planning. Patient is on BIPAP at bedside, alert and oriented and interactive, denies any pain, nausea, vomiting, chest pain, or any other symptoms. Patient has been on Effient for BL PAD of the lower extremities with stents, last dose was yesterday AM. Of note, patient had a pleural effusion and underwent a thoracentesis rec ently. Plan for catheter placement and possible eventual AVF was discussed with patient and patient's daughter in the room and another daughter on [facility] phone with the nurse present and consent was obtained. PMH: HTN, CHF, hypothyroid, leukemia, sleep apnea, pleural effusion, PVD PSH: BL LE stents, corneal ALL: NKDA Denies tobacco, ETOH, or drug history Review of Systems - Review of Systems All systems: reviewed and no additional remarkable complaints except (as per HPI) Past Patient History - Infectious Disease Hx of Infectious Diseases: None - Tetanus Immunizations Tetanus Immunization: Unknown - Past Medical History & Family History Past Medical History?: Yes Past Family History: Reviewed and not pertinent - Past Social History Smoking Status: Never Smoked Alcohol: None Drugs: Denies - CARDIAC Hx Hypertension: Yes - PULMONARY Hx Chronic Obstructive Pulmonary Disease (COPD): Yes - NEUROLOGICAL Hx Neurological Disorder: No - HEENT Hx HEENT Problems: Yes Hx Cataracts: Yes Other/Comment: corneal replacement both eyes - RENAL Hx Chronic Kidney Disease: Yes Hx Kidney Stones: Yes - ENDOCRINE/METABOLIC Hx Hypothyroidism: Yes - HEMATOLOGICAL/ONCOLOGICAL Hx Anemia: Yes - INTEGUMENTARY Hx Dermatological Problems: No - MUSCULOSKELETAL/RHEUMATOLOGICAL Hx Arthritis: Yes - GASTROINTESTINAL Hx Gastritis: Yes - GENITOURINARY/GYNECOLOGICAL Hx Genitourinary Disorders: No - PSYCHIATRIC Hx Substance Use: No - SURGICAL HISTORY Hx Surgeries: Yes Other/Comment: vascular stents. bone marrow aspiration - ANESTHESIA Hx Anesthesia: Yes Hx Anesthesia Reactions: No Meds Allergies/Adverse Reactions: Allergies Allergy/AdvReac Type Severity Reaction Status Date / Time No Known Allergies Allergy Verified 03/19/17 06:06 - Medications Medications: Current Medications Acetaminophen (Tylenol 325mg Tab) 650 mg PO Q6 PRN PRN Reason: Fever >100.4 F Last Admin: 03/29/18 05:59 Dose: 650 mg Acetylcysteine (Acetylcysteine 20%) 4 ml INH Q4H [facility] Last Admin: 03/29/18 08:45 Dose: 4 ml Albuterol/Ipratropium (Duoneb 3 Mg/0.5 Mg (3 Ml) Ud) 3 ml INH Q4H [facility] Last Admin: 03/29/18 08:45 Dose: 3 ml Amlodipine Besylate (Norvasc) 10 mg PO DAILY [facility] Last Admin: 03/29/18 10:29 Dose: 10 mg Benzonatate (Tessalon Perles) 100 mg PO TID [facility] Last Admin: 03/29/18 10:30 Dose: 100 mg Calcium Acetate (Phoslo) 667 mg PO TID [facility] Last Admin: 03/29/18 10:29 Dose: 667 mg Dextrose (Dextrose 50% Inj) 0 ml IV STAT PRN; Protocol PRN Reason: Hypoglycemia Protocol Dextrose (Glutose 15) 0 gm PO ONCE PRN; Protocol PRN Reason: Hypoglycemia Protocol Fenofibrate (Tricor) 48 mg PO DAILY [facility] Last Admin: 03/29/18 10:30 Dose: 48 mg Folic Acid (Folic Acid) 1 mg PO DAILY [facility] Last Admin: 03/29/18 10:29 Dose: 1 mg Furosemide (Lasix) 20 mg IVP Q12H [facility] Last Admin: 03/29/18 00:37 Dose: 20 mg Glucagon (Glucagen Diagnostic Kit) 0 mg IM STAT PRN; Protocol PRN Reason: Hypoglycemia Protocol Meropenem 500 mg/ Sodium (Chloride) 100 mls @ 100 mls/hr IVPB Q8H [facility]; Protocol Last Admin: 03/29/18 09:18 Dose: 100 mls/hr Insulin Human Regular (Novolin R) 0 unit SC ACHS [facility]; Protocol Last Admin: 03/29/18 08:30 Dose: Not Given Levothyroxine Sodium (Synthroid) 100 mcg PO DAILY@0630 [facility] Last Admin: 03/29/18 05:38 Dose: 100 mcg Metolazone (Zaroxolyn) 5 mg PO DAILY [facility] Last Admin: 03/29/18 11:00 Dose: 5 mg Metoprolol Succinate (Toprol Xl) 25 mg PO DAILY [facility] Last Admin: 03/29/18 10:30 Dose: 25 mg Rosuvastatin Calcium (Crestor) 10 mg PO HS [facility] Last Admin: 03/28/18 21:11 Dose: 10 mg Saccharomyces Boulardii (Florastor) 250 mg PO BID [facility] Last Admin: 03/29/18 10:29 Dose: 250 mg Sitagliptin Phosphate (Januvia) 25 mg PO DAILY [facility] Last Admin: 03/29/18 10:29 Dose: 25 mg Physical Exam - Constitutional Appears: Well, Non-toxic, No Acute Distress - Head Exam Head Exam: ATRAUMATIC, NORMOCEPHALIC - Eye Exam Eye Exam: Normal appearance. absent: Conjunctival injection, Scleral icterus - ENT Exam ENT Exam: Mucous Membranes Moist, Normal Oropharynx - Respiratory Exam Respiratory Exam: NORMAL BREATHING PATTERN. absent: Accessory Muscle Use, Respiratory Distress Additional comments: on BIPAP - Cardiovascular Exam Cardiovascular Exam: RRR - GI/Abdominal Exam GI & Abdominal Exam: Soft. absent: Distended, Tenderness - Extremities Exam Extremities exam: Positive for: pedal edema (trace). Negative for: calf tenderness - Back Exam Additional comments: dressing from thoracentesis on the left mid upper back clean, dry, intact - Neurological Exam Neurological exam: Alert, Oriented x3 - Psychiatric Exam Psychiatric exam: Normal Affect, Normal Mood - Skin Skin Exam: Dry, Intact, Normal Color, Warm Results - Vital Signs Recent Vital Signs: Last Vital Signs Temp 97.6 F 03/29/18 07:45 Pulse 100 H 03/29/18 10:28 Resp 18 03/29/18 07:45 BP 151/61 H 03/29/18 10:28 Pulse Ox 94 L 03/29/18 07:45 - Labs Result Diagrams: 03/29/18 07:34 03/29/18 07:34 Labs: Laboratory Results - last 24 hr 03/24/18 03/26/18 03/26/18 19:39 14:00 14:00 WBC RBC Hgb Hct MCV MCH MCHC RDW Plt Count MPV Neut % (Auto) Lymph % (Auto) [place] % (Auto) Eos % (Auto) Baso % (Auto) Neut # (Auto) Lymph # (Auto) [place] # (Auto) Eos # (Auto) Baso # (Auto) Neutrophils % (Manual) Band Neutrophils % Lymphocytes % (Manual) Monocytes % (Manual) Eosinophils % (Manual) Nucleated RBC % Platelet Estimate Hypochromasia (manual) Anisocytosis (manual) PT INR APTT Sodium Potassium Chloride Carbon Dioxide Anion Gap BUN Creatinine Est GFR ( Amer) Est GFR (Non-Af Amer) POC Glucose (mg/dL) Random Glucose Calcium Phosphorus Magnesium Total Bilirubin AST ALT Alkaline Phosphatase Total Protein Albumin Globulin Albumin/Globulin Ratio Pleural Total Protein Pleural LDH 261 Pleural Glucose 199 Random Vancomycin Beta-(1,3)-D-Glucan 32 Plavix Genotype Interp Negative 03/26/18 03/28/18 03/28/18 14:00 16:27 21:08 WBC RBC Hgb Hct MCV MCH MCHC RDW Plt Count MPV Neut % (Auto) Lymph % (Auto) [place] % (Auto) Eos % (Auto) Baso % (Auto) Neut # (Auto) Lymph # (Auto) [place] # (Auto) Eos # (Auto) Baso # (Auto) Neutrophils % (Manual) Band Neutrophils % Lymphocytes % (Manual) Monocytes % (Manual) Eosinophils % (Manual) Nucleated RBC % Platelet Estimate Hypochromasia (manual) Anisocytosis (manual) PT INR APTT Sodium Potassium Chloride Carbon Dioxide Anion Gap BUN Creatinine Est GFR ( Amer) Est GFR (Non-Af Amer) POC Glucose (mg/dL) 191 H 143 H Random Glucose Calcium Phosphorus Magnesium Total Bilirubin AST ALT Alkaline Phosphatase Total Protein Albumin Globulin Albumin/Globulin Ratio Pleural Total Protein 3.5 Pleural LDH Pleural Glucose Random Vancomycin Beta-(1,3)-D-Glucan Plavix Genotype Interp 03/29/18 03/29/18 03/29/18 06:31 07:34 07:34 WBC 28.9 H RBC 2.49 L Hgb 7.3 L Hct 22.5 L MCV 90.4 MCH 29.3 MCHC 32.4 L RDW 16.6 H Plt Count 125 L MPV 10.3 Neut % (Auto) 58.3 Lymph % (Auto) 9.3 L [place] % (Auto) 31.4 H Eos % (Auto) 0.8 Baso % (Auto) 0.2 Neut # (Auto) 16.8 H Lymph # (Auto) 2.7 [place] # (Auto) 9.0 H Eos # (Auto) 0.2 Baso # (Auto) 0.1 Neutrophils % (Manual) 58 Band Neutrophils % 2 Lymphocytes % (Manual) 12 L Monocytes % (Manual) 27 H Eosinophils % (Manual) 1 Nucleated RBC % 1 H Platelet Estimate Slightly decreased L Hypochromasia (manual) Slight Anisocytosis (manual) Slight PT INR APTT Sodium 136 Potassium 4.2 Chloride 97 L Carbon Dioxide 27 Anion Gap 15 BUN 73 H Creatinine 4.1 H Est GFR ( Amer) 13 Est GFR (Non-Af Amer) 10 POC Glucose (mg/dL) 106 Random Glucose 121 H Calcium 8.8 Phosphorus 5.7 H Magnesium 2.2 Total Bilirubin 0.7 AST 21 ALT 13 Alkaline Phosphatase 42 Total Protein 8.0 Albumin 3.5 Globulin 4.5 H Albumin/Globulin Ratio 0.8 L Pleural Total Protein Pleural LDH Pleural Glucose Random Vancomycin Beta-(1,3)-D-Glucan Plavix Genotype Interp 03/29/18 03/29/18 07:34 11:10 WBC RBC Hgb Hct MCV MCH MCHC RDW Plt Count MPV Neut % (Auto) Lymph % (Auto) [place] % (Auto) Eos % (Auto) Baso % (Auto) Neut # (Auto) Lymph # (Auto) [place] # (Auto) Eos # (Auto) Baso # (Auto) Neutrophils % (Manual) Band Neutrophils % Lymphocytes % (Manual) Monocytes % (Manual) Eosinophils % (Manual) Nucleated RBC % Platelet Estimate Hypochromasia (manual) Anisocytosis (manual) PT 14.5 H INR 1.3 APTT 36 H Sodium Potassium Chloride Carbon Dioxide Anion Gap BUN Creatinine Est GFR ( Amer) Est GFR (Non-Af Amer) POC Glucose (mg/dL) Random Glucose Calcium Phosphorus Magnesium Total Bilirubin AST ALT Alkaline Phosphatase Total Protein Albumin Globulin Albumin/Globulin Ratio Pleural Total Protein Pleural LDH Pleural Glucose Random Vancomycin 19.7 Beta-(1,3)-D-Glucan Plavix Genotype Interp Assessment & Plan - Assessment and Plan (Free Text) Assessment: 82F with ESRD Plan: OR today for permacath placement NPO Hold lovenox and effient medical management per primary Limb alert right arm vein mapping Begin work up for eventual AV fistula Discussed with DR. Elian Coronado PGY2
--- NOTE | 2018-03-29 14:19 | CP.PCM.PN ---
Subjective - Date & Time of Evaluation Date of Evaluation: 03/29/18 Time of Evaluation: 14:19 - Subjective Subjective: Patient is seen and examined No events overnight Objective - Vital Signs/Intake and Output Vital Signs (last 24 hours): Temp Pulse Resp BP Pulse Ox 97.6 F 100 H 18 153/66 H 94 L 03/29/18 07:45 03/29/18 13:16 03/29/18 07:45 03/29/18 13:00 03/29/18 07:45 Intake and Output: 03/29/18 03/29/18 06:59 18:59 Intake Total 500 Balance 500 - Medications Medications: Current Medications Acetaminophen (Tylenol 325mg Tab) 650 mg PO Q6 PRN PRN Reason: Fever >100.4 F Last Admin: 03/29/18 05:59 Dose: 650 mg Acetylcysteine (Acetylcysteine 20%) 4 ml INH Q4H [facility] Last Admin: 03/29/18 13:16 Dose: 4 ml Albuterol/Ipratropium (Duoneb 3 Mg/0.5 Mg (3 Ml) Ud) 3 ml INH Q4H [facility] Last Admin: 03/29/18 13:16 Dose: 3 ml Amlodipine Besylate (Norvasc) 10 mg PO DAILY [facility] Last Admin: 03/29/18 10:29 Dose: 10 mg Benzonatate (Tessalon Perles) 100 mg PO TID [facility] Last Admin: 03/29/18 13:54 Dose: 100 mg Calcium Acetate (Phoslo) 667 mg PO TID [facility] Last Admin: 03/29/18 13:54 Dose: 667 mg Dextrose (Dextrose 50% Inj) 0 ml IV STAT PRN; Protocol PRN Reason: Hypoglycemia Protocol Dextrose (Glutose 15) 0 gm PO ONCE PRN; Protocol PRN Reason: Hypoglycemia Protocol Fenofibrate (Tricor) 48 mg PO DAILY [facility] Last Admin: 03/29/18 10:30 Dose: 48 mg Folic Acid (Folic Acid) 1 mg PO DAILY [facility] Last Admin: 03/29/18 10:29 Dose: 1 mg Furosemide (Lasix) 20 mg IVP Q12H [facility] Last Admin: 03/29/18 13:00 Dose: 20 mg Glucagon (Glucagen Diagnostic Kit) 0 mg IM STAT PRN; Protocol PRN Reason: Hypoglycemia Protocol Meropenem 500 mg/ Sodium (Chloride) 100 mls @ 100 mls/hr IVPB Q8H [facility]; Protocol Last Admin: 03/29/18 09:18 Dose: 100 mls/hr Insulin Human Regular (Novolin R) 0 unit SC ACHS [facility]; Protocol Last Admin: 03/29/18 12:36 Dose: Not Given Levothyroxine Sodium (Synthroid) 100 mcg PO DAILY@0630 [facility] Last Admin: 03/29/18 05:38 Dose: 100 mcg Metolazone (Zaroxolyn) 5 mg PO DAILY [facility] Last Admin: 03/29/18 11:00 Dose: 5 mg Metoprolol Succinate (Toprol Xl) 25 mg PO DAILY [facility] Last Admin: 03/29/18 10:30 Dose: 25 mg Rosuvastatin Calcium (Crestor) 10 mg PO HS [facility] Last Admin: 03/28/18 21:11 Dose: 10 mg Saccharomyces Boulardii (Florastor) 250 mg PO BID [facility] Last Admin: 03/29/18 10:29 Dose: 250 mg Sitagliptin Phosphate (Januvia) 25 mg PO DAILY [facility] Last Admin: 03/29/18 10:29 Dose: 25 mg - Labs Labs: 03/29/18 07:34 03/29/18 07:34 PT 14.5 SECONDS (9.7-12.2) H 03/29/18 11:10 INR 1.3 03/29/18 11:10 APTT 36 SECONDS (21-34) H 03/29/18 11:10 - Head Exam Head Exam: NORMAL INSPECTION - Eye Exam Eye Exam: Normal appearance - ENT Exam ENT Exam: Mucous Membranes Moist - Respiratory Exam Respiratory Exam: Clear to Ausculation Bilateral - Cardiovascular Exam Cardiovascular Exam: REGULAR RHYTHM, +S1, +S2 - GI/Abdominal Exam GI & Abdominal Exam: Soft, Normal Bowel Sounds - Extremities Exam Extremities Exam: Pedal Edema - Back Exam Back Exam: NORMAL INSPECTION Assessment and Plan (1) CHF (congestive heart failure) Status: Acute (2) CKD (chronic kidney disease) stage 5, GFR less than 15 ml/min Status: Acute (3) Pleural effusion Status: Acute (4) COPD (chronic obstructive pulmonary disease) Status: Acute (5) Diabetes Status: Acute (6) Pneumonia Status: Acute - Assessment and Plan (Free Text) Plan: Continue antibiotics Bronchodilators Oxygen supplementation BiPAP as needed Hemodialysis as per renal DVT/GI prophylaxis
[2018-03-29] MEDS ORDERED: HEPARIN-NS 5,000 UNITS/500 ML 5,000 UNIT/500 ML BAG IV ONE (14:35)
[2018-03-29] MEDS: Lidocaine Hydrochloride 10 ML INJ ONE ×2 (15:05→15:15)
[2018-03-29] MEDS ORDERED: Iodixanol 320 MG/ML 200 ML BOTTLE IV ONE (15:24)
--- NOTE | 2018-03-29 15:53 | RAD ---
HISTORY: hx of pleural effusions COMPARISON: Chest x-ray performed 03/27/18 TECHNIQUE: Chest, one view. FINDINGS: Examination limited by habitus. LUNGS: Increasing consolidations and pulmonary venous congestion consistent with edema. Please note that chest x-ray has limited sensitivity for the detection of pulmonary masses. PLEURA: Bilateral pleural effusions. No definite pneumothorax . CARDIOVASCULAR: Cardiomegaly. Atherosclerotic calcification present. OSSEOUS STRUCTURES: Osseous demineralization. Degenerative changes. VISUALIZED UPPER ABDOMEN: Unremarkable. OTHER FINDINGS: None. IMPRESSION: Findings consistent with increasing pulmonary edema as above.
--- NOTE | 2018-03-29 16:01 | PCM.SURG1 ---
Surgeon's Initial Post Op Note - Surgeon's Notes Surgeon: Dr. Plummer [place] Baggage Screener: Dr. Guevara PGY-3 Type of Anesthesia: IV Sedation Pre-Operative Diagnosis: Chronic Kidney Disease Operative Findings: See operative report Post-Operative Diagnosis: Same Operation Performed: Right IJ Permacath Insertion Specimen/Specimens Removed: none Estimated Blood Loss: EBL {In ML}: 10 Blood Products Given: N/A Drains Used: No Drains Post-Op Condition: Good Date of Surgery/Procedure: 03/29/18 Time of Surgery/Procedure: 16:02
[2018-03-29] MEDS ORDERED: HYDROmorphone 0.5 mg/0.5 ml ISec IVP PRN (16:11)
[2018-03-29] MEDS ORDERED: Sodium Chloride 0.9% 1,000 ML IV SCH (16:15)
--- NOTE | 2018-03-29 16:43 | RAD ---
Date of service: 03/29/2018 PROCEDURE: Intraoperative Fluoroscopy. HISTORY: RENAL FAILURE FINDINGS: Fluoroscopic assistance was provided for PermCath placement. Please refer to the operative report from CONCHITA Fishman.
--- NOTE | 2018-03-29 16:48 | RAD ---
Date of service: 03/29/2018 HISTORY: s/p R IJ permacath COMPARISON: 03/29/2018 FINDINGS: LUNGS: The bilateral coalescent airspace opacities compatible with marked pulmonary edema appears similar to slightly increased. Concomitant underlying infiltrates are not excluded. PLEURA: Bilateral pleural effusions similar. No pneumothorax seen. CARDIOVASCULAR: There is presence of aortic atherosclerotic calcification on x-ray. Cardiomegaly-similar. Mitral annular calcification Marked pulmonary venous congestion/pulmonary edema present Interval insertion of a dialysis catheter tip in upper right atrium. OSSEOUS STRUCTURES: Bilateral shoulder arthrosis. Limited visualization of the thoracic spine. VISUALIZED UPPER ABDOMEN: Normal. OTHER FINDINGS: None. IMPRESSION: Cardiomegaly marked pulmonary edema-pulmonary edema is likely slightly increased. Interval insertion of a right-sided dialysis catheter tip in right atrium as above. No pneumothorax appreciated
[2018-03-29 20:52] LABS: HEPATITIS B SURFACE AG Negative (NEGATIVE)
[2018-03-29 20:57] LABS: HEPATITIS B CORE AB NEGATIVE (NEGATIVE)
[2018-03-29 21:10] LABS: HEPATITIS C ANTIBODY NEGATIVE (NEGATIVE)
--- NOTE | 2018-03-30 00:13 | OP ---
PROCEDURE DATE: 03/29/2018 PREOPERATIVE DIAGNOSIS: Renal failure. POSTOPERATIVE DIAGNOSIS: Renal failure. PROCEDURE CARRIED OUT: Permacath right jugular vein with C-arm fluoroscopy, ultrasound-guided puncture, and micropuncture technique. SURGEON: Indra Plummer Jr., MD SHEET METAL ROOFER: Lida Guevara DO ANESTHESIOLOGIST: Mr. Jones. INDICATIONS: An 82-year-old woman who soon required dialysis. OPERATIVE FINDINGS: Catheter was placed uneventfully via jugular vein. Using ultrasound guidance and micropuncture technique, we punctured the jugular vein as the catheter centrally exchanged for an 0.035 wire, passed a sheath dilator over this, and the position to catheter originated on the right chest wall going through right jugular vein and terminating at the superior vena cava. It was flushed with heparinized saline with good return and sutured to the skin. At the beginning of this, we had initially punctured adjacent space wire. Dye was injected which confirmed vein at that time, which was led to subsequently be punctured. The patient tolerated the procedure uneventfully. Blood loss was less than 25 mL. Operation carried out is Permacath right jugular vein with C-arm fluoroscopy, ultrasound guided puncture and micropuncture technique. Ultrasound images of neck showed that the vein was approximately 16 mm in diameter with normal compressibility and no intraluminal thrombosis. Indra Plummer Jr., MD
[2018-03-30] MEDS: Meropenem 500 MG in Sodium Chloride 0.9% 100 ML IVPB SCH ×3 (00:44→18:47)
[2018-03-30] MEDS: Acetylcysteine 20% Inhal Soln (4ml) INH SCH ×6 (00:45→20:00)
[2018-03-30] MEDS: Albuterol-Ipratrop 3 mg / 0.5 (3 ml) UD INH SCH ×6 (00:46→19:59)
[2018-03-30] MEDS: Levothyroxine 100 MCG TAB PO SCH (05:30)
--- NOTE | 2018-03-30 07:01 | CP.PCM.PN ---
<Emile Seals - Last Filed: 03/30/18 17:37> Subjective - Date & Time of Evaluation Date of Evaluation: 03/30/18 Time of Evaluation: 07:01 - Subjective Subjective: Progress note for Hospitalist service Patient seen and examined at bedside. She has BIPAP on, however is noted to be more short of breath. She states she feels nasal congestion and has not had a bowel movement. She denies chest pain, palpitations, headache, fevers, chills, abdominal pain, nausea, vomiting, diarrhea, leg swelling. Left arm is noted to be slightly more swollen than before. Patient's daughter at bedside states she has not had as much urine as before. Objective - Vital Signs/Intake and Output Vital Signs (last 24 hours): Temp Pulse Resp BP Pulse Ox 98.5 F 92 H 18 127/64 99 03/30/18 00:00 03/30/18 05:09 03/30/18 00:00 03/30/18 00:28 03/30/18 00:00 Intake and Output: 03/30/18 03/30/18 06:59 18:59 Intake Total 400 Balance 400 - Medications Medications: Current Medications Acetaminophen (Tylenol 325mg Tab) 650 mg PO Q6 PRN PRN Reason: Fever >100.4 F Last Admin: 03/29/18 22:47 Dose: 650 mg Acetylcysteine (Acetylcysteine 20%) 4 ml INH Q4H [facility] Last Admin: 03/30/18 03:27 Dose: 4 ml Albuterol/Ipratropium (Duoneb 3 Mg/0.5 Mg (3 Ml) Ud) 3 ml INH Q4H [facility] Last Admin: 03/30/18 03:27 Dose: 3 ml Amlodipine Besylate (Norvasc) 10 mg PO DAILY [facility] Last Admin: 03/29/18 10:29 Dose: 10 mg Benzonatate (Tessalon Perles) 100 mg PO TID [facility] Last Admin: 03/29/18 18:22 Dose: Not Given Calcium Acetate (Phoslo) 667 mg PO TID [facility] Last Admin: 03/29/18 18:21 Dose: Not Given Dextrose (Dextrose 50% Inj) 0 ml IV STAT PRN; Protocol PRN Reason: Hypoglycemia Protocol Dextrose (Glutose 15) 0 gm PO ONCE PRN; Protocol PRN Reason: Hypoglycemia Protocol Fenofibrate (Tricor) 48 mg PO DAILY [facility] Last Admin: 03/29/18 10:30 Dose: 48 mg Folic Acid (Folic Acid) 1 mg PO DAILY [facility] Last Admin: 03/29/18 10:29 Dose: 1 mg Furosemide (Lasix) 20 mg IVP Q12H [facility] Last Admin: 03/30/18 00:28 Dose: 20 mg Glucagon (Glucagen Diagnostic Kit) 0 mg IM STAT PRN; Protocol PRN Reason: Hypoglycemia Protocol Meropenem 500 mg/ Sodium (Chloride) 100 mls @ 100 mls/hr IVPB Q8H [facility]; Protocol Last Admin: 03/30/18 00:44 Dose: 100 mls/hr Insulin Human Regular (Novolin R) 0 unit SC ACHS [facility]; Protocol Last Admin: 03/29/18 23:08 Dose: Not Given Levothyroxine Sodium (Synthroid) 100 mcg PO DAILY@0630 [facility] Last Admin: 03/30/18 05:30 Dose: 100 mcg Metolazone (Zaroxolyn) 5 mg PO DAILY [facility] Last Admin: 03/29/18 11:00 Dose: 5 mg Metoprolol Succinate (Toprol Xl) 25 mg PO DAILY [facility] Last Admin: 03/29/18 10:30 Dose: 25 mg Rosuvastatin Calcium (Crestor) 10 mg PO HS [facility] Last Admin: 03/29/18 22:47 Dose: 10 mg Saccharomyces Boulardii (Florastor) 250 mg PO BID [facility] Last Admin: 03/29/18 18:21 Dose: Not Given Sitagliptin Phosphate (Januvia) 25 mg PO DAILY [facility] Last Admin: 03/29/18 10:29 Dose: 25 mg - Labs Labs: 03/29/18 07:34 03/29/18 07:34 PT 14.5 SECONDS (9.7-12.2) H 03/29/18 11:10 INR 1.3 03/29/18 11:10 APTT 36 SECONDS (21-34) H 03/29/18 11:10 - Constitutional Appears: Other (Appears short of breath, on BIPAP) - Head Exam Head Exam: ATRAUMATIC, NORMOCEPHALIC - Eye Exam Eye Exam: EOMI - ENT Exam ENT Exam: Mucous Membranes Moist - Neck Exam Neck Exam: Full ROM - Respiratory Exam Respiratory Exam: Rales (at bases bilaterally). absent: Rhonchi, Wheezes, Stridor - Cardiovascular Exam Cardiovascular Exam: REGULAR RHYTHM, +S1, +S2. absent: Gallop, Rubs, Murmur Additional comments: Right chest permacath in place, dressing clean, dry, intact - GI/Abdominal Exam GI & Abdominal Exam: Soft, Normal Bowel Sounds - Extremities Exam Extremities Exam: absent: Calf Tenderness, Pedal Edema Additional comments: Left arm mild edema noted - Neurological Exam Neurological Exam: Alert, Awake, Oriented x3 - Psychiatric Exam Psychiatric exam: Normal Affect, Normal Mood - Skin Skin Exam: Dry, Intact, Warm Assessment and Plan - Assessment and Plan (Free Text) Plan: Assessment: 82 year old female with a PMHx of COPD, PVD CHF (w/ preserved EF), HTN, Leukemia (not on tx), HLD, CKD, Hypothyrodism, and Pneumonia admitted for evaluation and treatment of hospital acquired pneumonia. CT scan on admission showed small b/l pleural effusions. s/p L thoracentesis (03/26) POD#3 Plan: Healthcare Associated Pneumonia w/ Pleural Effusion Left lower lobe consolidation CXR (03/24): Pulmonary venous congestive changes with near complete opacification left hemithorax consistent with large effusion and atelectasis. There has been progression of infiltrate changes right mid to lower lung field Chest CT (03/24): Moderately large left-sided effusion with left lower and to a lesser degree upper lobe atelectasis. Small right-sided effusion and minor right basilar atelectasis. Pulmonary venous congestive changes with ground-gla ss opacities. Repeat CXR (03/26, 03/27): improving, stable pulm edema, R>L Chest CT 03/27/ Left lower lobe consolidation with mild patchy atelectatic with small effusion; left-sided effusion has decreased however the L ectatic changes have progressed. Atelectatic and or infiltrate changes in the right lung base and right upper lobe with small right-sided effusion increased from prior exam. Underlying pulmonary vascular congestive changes. Significant atherosclerotic disease involving the abdominal aorta and major branch vessels as above. Chronic appearing anterior wedge compression fractures of the T12 and L1 segments with retropulsion of the posterior superior corners of each segment resulting in canal narrowing. Repeat CXR 03/29 increasing pulmonary edema ID Consulted Dr. Rodriguez, help appreciated Pulmonology Consulted Dr. Hernandez, help appreciated As per Dr. Hernandez's note, who recommended repeat CT chest without contrast, once patient is able to able to lie flat. IR Consulted (Dr. Longoria), for thoracentesis. Patient had thoracentesis on 03/26, with 500cc fluid removed. Fluid analysis: Bloody appearance, 943 WBC, 09909 RBCs, [address], 67 neutrophils, 19 lymphocytes, 14 monocytes/macrophages, moderate mesothelial and macrophages seen on smear. Body fluid culture final no growth . Total protein 3.5. Pleural LDH 261. Pleural glucose 199. Incentive Spirometery Q1 Currently on BiPAP s/p CORRECTIVE THERAPIST on 03/27. Titrate to SpO2 >94%. ProCal negative Legionella negative Mycoplasma negative TB quant negative Beta 1,3 D glucan 32 Blood Culture - neg x4 days Sputum Culture - normal oral rossi Meds: MucoMyst Q4H [facility] DuoNebs Q4H [facility] Tessalon Perles 100mg PO TID Meropenem 500mg Q8H [facility] per ID. Vancomycin 1g Daily [facility] (started 03/24) (03/27: random vanc 24.5 - held) -> discontinued 03/27 Tylenol 650mg PRN Lasix 40mg IVP BID --> decreased to Lasix 20mg IV BID Diastolic CHF, with preserved EF Chronic - stable ECHO (03/04/18): Grade II Pseudonormal filling dynamics, mild Pulml HTN, 60-65% EF EKG : NSR @ 92 BPM, No acute ST/T wave changes. BNP on Admission - 8470. CXR on Admission shows Pulm Congestion. 40mg Lasix Given in ED. Head of Bead elevated Strict Intake and Ouput Fluid/Salt Restriction Meds: Lasix 40mg IVP BID --> decreased to Lasix 20mg IV BID Metoprolol 25mg PO Daily f/u repeat CXR to determine volume status Normocytic Anemia Ddx: CKD, Leukemia Anemia Workup Ordered Monitor H/H Meds: ProCrit J21orqs (Last dose on 03/22/18) Folic acid 1mg PO daily Hb dropped to 6.3, due to get transfused 1 unit PRBC with HD today f/u CBC post transfusion CKD (Stage V), Newly on Dialysis Est. GFR 17, Cr-2.7 on Admission Nephrology Consulted (Dr. Leach) No fluids due to CHF Renally Dose Medications Creatinine has worsened during hospitalization, upto 4.1 03/[address] Langston who recommended HD. Family at bedside agreeable to HD. Vascular Surgery Dr. Lindquist consulted, help appreciated. Right chest permacath placed on 03/29/18 Effient/Lovenox held, to be restarted 03/31/18 Due to have vein mapping for AV fistula Case discussed with patient's poker in Dr. Lopez Day ([phone]) who stated that she was okay with patient receiving Epogen with dialysis. Status post 1st HD 03/29, due for 2nd HD today with 1 units PRBC transfusion Meds: Phoslo 667mg PO TID Procrit 10,000 units IV MWF HTN/CAD Meds: Amlodipine 10mg PO Daily Lasix 20 BID Metoprolol 25mg PO Daily Prasugrel 10mg PO Daily (held) - to be restarted 03/31/18 Rosuvastatin 10mg PO HS HLD Meds: Fenofibrate 48mg PO Daily Rosuvastatin 10mg PO HS Hypothyroidism Meds: Levothyroxine 100mcg Daily Type 2DM Januvia 25mg PO daily ISS History of MDS Patient gets ProCrit Injection every 14days Case discussed with patient's poker in Dr. Lopez Day ([phone]) who stated that she was okay with patient receiving Epogen with dialysis. Constipation - Colace 100mg PO BID - Continue to monitor Proph Lovenox (Renally Dosed) HELD ( to be restarted 03/31/18 ) Heart Healthy Diet (2gm Na, 1500ml fluid Restriction, Renal) Florastor 250mg BID PT/OT Aspiration precautions: keep bed elevated to 30 degrees. Incentive spirometer Q1 hr Patient to use BIPAP during night and NC during day. Case discussed with Dr. Amy Seals, PGY1 <Reji Reyes H - Last Filed: 03/30/18 18:16> Objective - Vital Signs/Intake and Output Vital Signs (last 24 hours): Temp Pulse Resp BP Pulse Ox 97.7 F 91 H 20 149/56 L 100 03/30/18 17:46 03/30/18 17:46 03/30/18 17:46 03/30/18 17:46 03/30/18 17:45 Intake and Output: 03/30/18 03/30/18 06:59 18:59 Intake Total 400 765 Balance 400 765 - Medications Medications: Current Medications Acetaminophen (Tylenol 325mg Tab) 650 mg PO Q6 PRN PRN Reason: Fever >100.4 F Last Admin: 03/29/18 22:47 Dose: 650 mg Acetylcysteine (Acetylcysteine 20%) 4 ml INH Q4H [facility] Last Admin: 03/30/18 15:53 Dose: Not Given Albuterol/Ipratropium (Duoneb 3 Mg/0.5 Mg (3 Ml) Ud) 3 ml INH Q4H [facility] Last Admin: 03/30/18 15:53 Dose: Not Given Amlodipine Besylate (Norvasc) 10 mg PO DAILY [facility] Last Admin: 03/30/18 10:20 Dose: 10 mg Benzonatate (Tessalon Perles) 100 mg PO TID [facility] Last Admin: 03/30/18 13:10 Dose: 100 mg Calcium Acetate (Phoslo) 667 mg PO TID [facility] Last Admin: 03/30/18 13:17 Dose: 667 mg Dextrose (Dextrose 50% Inj) 0 ml IV STAT PRN; Protocol PRN Reason: Hypoglycemia Protocol Dextrose (Glutose 15) 0 gm PO ONCE PRN; Protocol PRN Reason: Hypoglycemia Protocol Docusate Sodium (Colace) 100 mg PO BID [facility] Last Admin: 03/30/18 11:28 Dose: 100 mg Epoetin Brandon (Procrit) 10,000 unit IV MWF [facility] Fenofibrate (Tricor) 48 mg PO DAILY [facility] Last Admin: 03/30/18 10:21 Dose: 48 mg Fluticasone Propionate (Flonase) 2 spr SANJEEV BID [facility] Last Admin: 03/30/18 11:27 Dose: 2 sprays Folic Acid (Folic Acid) 1 mg PO DAILY [facility] Last Admin: 03/30/18 10:20 Dose: 1 mg Furosemide (Lasix) 20 mg IVP Q12H [facility] Last Admin: 03/30/18 13:00 Dose: 20 mg Glucagon (Glucagen Diagnostic Kit) 0 mg IM STAT PRN; Protocol PRN Reason: Hypoglycemia Protocol Meropenem 500 mg/ Sodium (Chloride) 100 mls @ 100 mls/hr IVPB Q8H [facility]; Protocol Last Admin: 03/30/18 08:40 Dose: 100 mls/hr Insulin Human Regular (Novolin R) 0 unit SC ACHS [facility]; Protocol Last Admin: 03/30/18 17:20 Dose: Not Given Levothyroxine Sodium (Synthroid) 100 mcg PO DAILY@0630 [facility] Last Admin: 03/30/18 05:30 Dose: 100 mcg Metoprolol Succinate (Toprol Xl) 25 mg PO DAILY [facility] Last Admin: 03/30/18 10:22 Dose: 25 mg Phenylephrine HCl (Steve-Synephrine 0.25% Nasal [place]) 0 ml NS Q12H PRN PRN Reason: Nasal congestion Rosuvastatin Calcium (Crestor) 10 mg PO HS [facility] Last Admin: 03/29/18 22:47 Dose: 10 mg Saccharomyces Boulardii (Florastor) 250 mg PO BID [facility] Last Admin: 03/30/18 10:20 Dose: 250 mg Sitagliptin Phosphate (Januvia) 25 mg PO DAILY [facility] Last Admin: 03/30/18 10:21 Dose: 25 mg - Labs Labs: 03/30/18 07:17 03/30/18 07:17 PT 14.5 SECONDS (9.7-12.2) H 03/29/18 11:10 INR 1.3 03/29/18 11:10 APTT 36 SECONDS (21-34) H 03/29/18 11:10 Attending/Attestation - Attestation I have personally seen and examined this patient.: Yes I have fully participated in the care of the patient.: Yes I have reviewed all pertinent clinical information, including history, physical exam and plan: Yes Notes (Text): 03/30/18 18:16 Medical attending: Patient was seen and examined by me, agrees the above note by general medical practitioner. The patient was seen together with the general medical practitioner. Her family member was present in the room. The patient had placement of a permacath there yesterday. She also underwent hemodialysis. This morning the CBC showed that her hemoglobin was lower, the patient was given blood transfusion. She's given need a portable chest x-ray after that just to check for a potential fluid overload. She was again on BiPAP at night, and during the day. She currently remains on the IV meropenem Reji Reyes
[2018-03-30 07:24] LABS: EOS # 0.2 K/uL (0.0-0.7); LYMPH # 2.7 K/uL (1.0-4.3); MEAN CORPUSCULAR HGB CONC 32.5 g/dL (33.0-37.0); MONO # 8.6 K/uL (0.0-0.8); NEUT % 61.6 % (50.0-75.0)
[2018-03-30 07:32] LABS: BASO # 0.1 K/uL (0.0-0.2); BASO % 0.2 % (0.0-2.0); EOS % 0.7 % (0.0-4.0); MEAN CELL VOLUME 90.9 fL (81.0-99.0); MEAN CORPUSCULAR HEMOGLOBIN 29.6 pg (27.0-31.0); MEAN PLATELET VOLUME 9.9 fL (7.2-11.7); MONO % 28.5 % (0.0-10.0); NEUT # 18.7 K/uL (1.8-7.0); NRBC % 0.7 % (0.0-2.0); RBC 2.14 Mil/uL (3.80-5.20); RED CELL DISTRIBUTION WIDTH 16.5 % (11.5-14.5); WHITE BLOOD COUNT 30.3 K/uL (4.8-10.8)
[2018-03-30] MEDS: (Novolin R) Insulin Human Regular 100 units/ml vial SC SCH ×4 (07:35→21:54)
[2018-03-30 07:42] LABS: HEMOGLOBIN 6.3 g/dL (11.0-16.0); PLATELET COUNT 90 K/uL (130-400)
[2018-03-30 08:18] LABS: ALB/GLOB RATIO 0.8 (1.0-2.1); ALBUMIN 3.2 g/dL (3.5-5.0); CALCIUM 8.3 mg/dl (8.6-10.4)
[2018-03-30 09:20] LABS: BANDS 3 % (0-2); LYMPHOCYTE 8 % (20-40); MONOCYTE 25 % (0-10); MYELOCYTE 1 % (0-0); NEUTROPHIL 63 % (50-75); TOTAL CELLS COUNTED 100
[2018-03-30 09:21] LABS: ANISOCYTOSIS SLIGHT; HYPOCHROMIC SLIGHT; MICROCYTOSIS SLIGHT; PLATELET ESTIMATE DECREASED (NORMAL); POIKILOCYTOSIS SLIGHT
--- NOTE | 2018-03-30 10:09 | RAD ---
Date of service: 03/30/2018 HISTORY: shortness of breath COMPARISON: Comparison chest dated 03/29/2018. FINDINGS: No change right IJ dialysis catheter with tip in the SVC LUNGS: Diffuse bilateral pulmonary venous congestive changes with bilateral alveolar-type infiltrates and bilateral effusions. PLEURA: As above. No pneumothorax apparent. CARDIOVASCULAR: Mild aortic atherosclerotic calcification present. Heart size difficult to assess due to silhouetting both cardiac borders however the heart appears enlarged on prior studies. OSSEOUS STRUCTURES: No significant abnormalities. VISUALIZED UPPER ABDOMEN: Normal. OTHER FINDINGS: None. IMPRESSION: Diffuse venous congestive changes changes with bilateral of linear type infiltrates and bilateral effusions.
--- NOTE | 2018-03-30 10:13 | CP.PCM.PN ---
Subjective - Date & Time of Evaluation Date of Evaluation: 03/30/18 Time of Evaluation: 10:10 - Subjective Subjective: Vascular Surgery Progress Note for Dr. Plummer This 82F was seen and examined this AM at bedside. She had no new complaints at time. No pain or bleeding at catheter insertion site? Objective - Vital Signs/Intake and Output Vital Signs (last 24 hours): Temp Pulse Resp BP Pulse Ox 98.5 F 92 H 28 H 156/67 H 99 03/30/18 07:00 03/30/18 08:30 03/30/18 07:00 03/30/18 07:00 03/30/18 07:00 Intake and Output: 03/30/18 03/30/18 06:59 18:59 Intake Total 400 Balance 400 - Medications Medications: Current Medications Acetaminophen (Tylenol 325mg Tab) 650 mg PO Q6 PRN PRN Reason: Fever >100.4 F Last Admin: 03/29/18 22:47 Dose: 650 mg Acetylcysteine (Acetylcysteine 20%) 4 ml INH Q4H [facility] Last Admin: 03/30/18 08:15 Dose: 4 ml Albuterol/Ipratropium (Duoneb 3 Mg/0.5 Mg (3 Ml) Ud) 3 ml INH Q4H [facility] Last Admin: 03/30/18 08:15 Dose: 3 ml Amlodipine Besylate (Norvasc) 10 mg PO DAILY [facility] Last Admin: 03/29/18 10:29 Dose: 10 mg Benzonatate (Tessalon Perles) 100 mg PO TID [facility] Last Admin: 03/29/18 18:22 Dose: Not Given Calcium Acetate (Phoslo) 667 mg PO TID [facility] Last Admin: 03/29/18 18:21 Dose: Not Given Dextrose (Dextrose 50% Inj) 0 ml IV STAT PRN; Protocol PRN Reason: Hypoglycemia Protocol Dextrose (Glutose 15) 0 gm PO ONCE PRN; Protocol PRN Reason: Hypoglycemia Protocol Fenofibrate (Tricor) 48 mg PO DAILY [facility] Last Admin: 03/29/18 10:30 Dose: 48 mg Folic Acid (Folic Acid) 1 mg PO DAILY [facility] Last Admin: 03/29/18 10:29 Dose: 1 mg Furosemide (Lasix) 20 mg IVP Q12H [facility] Last Admin: 03/30/18 00:28 Dose: 20 mg Glucagon (Glucagen Diagnostic Kit) 0 mg IM STAT PRN; Protocol PRN Reason: Hypoglycemia Protocol Meropenem 500 mg/ Sodium (Chloride) 100 mls @ 100 mls/hr IVPB Q8H [facility]; Protocol Last Admin: 03/30/18 08:40 Dose: 100 mls/hr Insulin Human Regular (Novolin R) 0 unit SC ACHS [facility]; Protocol Last Admin: 03/30/18 07:35 Dose: Not Given Levothyroxine Sodium (Synthroid) 100 mcg PO DAILY@0630 [facility] Last Admin: 03/30/18 05:30 Dose: 100 mcg Metolazone (Zaroxolyn) 5 mg PO DAILY [facility] Last Admin: 03/29/18 11:00 Dose: 5 mg Metoprolol Succinate (Toprol Xl) 25 mg PO DAILY [facility] Last Admin: 03/29/18 10:30 Dose: 25 mg Rosuvastatin Calcium (Crestor) 10 mg PO HS [facility] Last Admin: 03/29/18 22:47 Dose: 10 mg Saccharomyces Boulardii (Florastor) 250 mg PO BID [facility] Last Admin: 03/29/18 18:21 Dose: Not Given Sitagliptin Phosphate (Januvia) 25 mg PO DAILY [facility] Last Admin: 03/29/18 10:29 Dose: 25 mg - Labs Labs: 03/30/18 07:17 03/30/18 07:17 PT 14.5 SECONDS (9.7-12.2) H 03/29/18 11:10 INR 1.3 03/29/18 11:10 APTT 36 SECONDS (21-34) H 03/29/18 11:10 - Constitutional Appears: Non-toxic, No Acute Distress - Head Exam Head Exam: ATRAUMATIC, NORMOCEPHALIC - Eye Exam Eye Exam: EOMI - ENT Exam ENT Exam: Mucous Membranes Moist - Respiratory Exam Respiratory Exam: NORMAL BREATHING PATTERN - Cardiovascular Exam Cardiovascular Exam: +S1, +S2 - GI/Abdominal Exam GI & Abdominal Exam: Soft. absent: Guarding, Rigid, Tenderness - Neurological Exam Neurological Exam: Alert, Awake - Psychiatric Exam Psychiatric exam: Normal Affect, Normal Mood - Skin Skin Exam: Dry, Intact Assessment and Plan - Assessment and Plan (Free Text) Assessment: 82F with ESRD Vein mapping ordered will follow up studies Plan for AVF possibly next week if medically optimized D/W Dr. Elian Alfaro PGY3
[2018-03-30] MEDS: Saccharomyces Boulardi 250 mg Cap PO SCH ×2 (10:20→18:51)
[2018-03-30] MEDS: metOLazone 5 MG TAB PO SCH (10:21)
[2018-03-30] MEDS: Metoprolol Succinate 25 mg XL Tab PO SCH (10:22)
[2018-03-30] MEDS ORDERED: Phenylephrine 0.25% Nasal Spray (15 ml) NS PRN (10:40)
--- NOTE | 2018-03-30 11:15 | CP.PCM.PN ---
Subjective - Date & Time of Evaluation Date of Evaluation: 03/30/18 Time of Evaluation: 11:11 - Subjective Subjective: s/p first HD 03/29- UF 1400ml; tolerated well As per heme- can use ESAs Will need blood transfusion as Hg lower- can arrange with HD Still dyspneic; on bipap More oliguric Objective - Vital Signs/Intake and Output Vital Signs (last 24 hours): Temp Pulse Resp BP Pulse Ox 98.5 F 100 H 28 H 139/66 99 03/30/18 07:00 03/30/18 10:18 03/30/18 07:00 03/30/18 10:18 03/30/18 07:00 Intake and Output: 03/30/18 03/30/18 06:59 18:59 Intake Total 400 Balance 400 - Medications Medications: Current Medications Acetaminophen (Tylenol 325mg Tab) 650 mg PO Q6 PRN PRN Reason: Fever >100.4 F Last Admin: 03/29/18 22:47 Dose: 650 mg Acetylcysteine (Acetylcysteine 20%) 4 ml INH Q4H [facility] Last Admin: 03/30/18 08:15 Dose: 4 ml Albuterol/Ipratropium (Duoneb 3 Mg/0.5 Mg (3 Ml) Ud) 3 ml INH Q4H [facility] Last Admin: 03/30/18 08:15 Dose: 3 ml Amlodipine Besylate (Norvasc) 10 mg PO DAILY [facility] Last Admin: 03/30/18 10:20 Dose: 10 mg Benzonatate (Tessalon Perles) 100 mg PO TID [facility] Last Admin: 03/30/18 10:20 Dose: 100 mg Calcium Acetate (Phoslo) 667 mg PO TID [facility] Last Admin: 03/30/18 10:20 Dose: 667 mg Dextrose (Dextrose 50% Inj) 0 ml IV STAT PRN; Protocol PRN Reason: Hypoglycemia Protocol Dextrose (Glutose 15) 0 gm PO ONCE PRN; Protocol PRN Reason: Hypoglycemia Protocol Docusate Sodium (Colace) 100 mg PO BID [facility] Fenofibrate (Tricor) 48 mg PO DAILY [facility] Last Admin: 03/30/18 10:21 Dose: 48 mg Fluticasone Propionate (Flonase) 2 spr SANJEEV BID [facility] Folic Acid (Folic Acid) 1 mg PO DAILY [facility] Last Admin: 03/30/18 10:20 Dose: 1 mg Furosemide (Lasix) 20 mg IVP Q12H [facility] Last Admin: 03/30/18 00:28 Dose: 20 mg Glucagon (Glucagen Diagnostic Kit) 0 mg IM STAT PRN; Protocol PRN Reason: Hypoglycemia Protocol Meropenem 500 mg/ Sodium (Chloride) 100 mls @ 100 mls/hr IVPB Q8H [facility]; Protocol Last Admin: 03/30/18 08:40 Dose: 100 mls/hr Insulin Human Regular (Novolin R) 0 unit SC ACHS [facility]; Protocol Last Admin: 03/30/18 07:35 Dose: Not Given Levothyroxine Sodium (Synthroid) 100 mcg PO DAILY@0630 [facility] Last Admin: 03/30/18 05:30 Dose: 100 mcg Metolazone (Zaroxolyn) 5 mg PO DAILY [facility] Last Admin: 03/30/18 10:21 Dose: 5 mg Metoprolol Succinate (Toprol Xl) 25 mg PO DAILY [facility] Last Admin: 03/30/18 10:22 Dose: 25 mg Phenylephrine HCl (Steve-Synephrine 0.25% Nasal [place]) 0 ml NS Q12H PRN PRN Reason: Nasal congestion Rosuvastatin Calcium (Crestor) 10 mg PO HS [facility] Last Admin: 03/29/18 22:47 Dose: 10 mg Saccharomyces Boulardii (Florastor) 250 mg PO BID [facility] Last Admin: 03/30/18 10:20 Dose: 250 mg Sitagliptin Phosphate (Januvia) 25 mg PO DAILY [facility] Last Admin: 03/30/18 10:21 Dose: 25 mg - Labs Labs: 03/30/18 07:17 03/30/18 07:17 PT 14.5 SECONDS (9.7-12.2) H 03/29/18 11:10 INR 1.3 03/29/18 11:10 APTT 36 SECONDS (21-34) H 03/29/18 11:10 - Constitutional Appears: No Acute Distress, Chronically Ill - Head Exam Head Exam: ATRAUMATIC, NORMAL INSPECTION - Eye Exam Eye Exam: EOMI, Normal appearance - Neck Exam Neck Exam: Normal Inspection. absent: Tenderness - Respiratory Exam Respiratory Exam: Rhonchi, Respiratory Distress - Cardiovascular Exam Cardiovascular Exam: REGULAR RHYTHM, +S1 - GI/Abdominal Exam GI & Abdominal Exam: Soft. absent: Tenderness - Extremities Exam Extremities Exam: Normal Inspection. absent: Tenderness - Neurological Exam Neurological Exam: Awake, CN II-XII Intact - Skin Skin Exam: Dry, Warm Assessment and Plan (1) CKD (chronic kidney disease) stage 5, GFR less than 15 ml/min Status: Acute (2) CHF (congestive heart failure) Status: Acute (3) CMML (chronic myelomonocytic leukemia) Status: Acute (4) Chronic anemia Status: Acute (5) ESRD (end stage renal disease) Status: Acute - Assessment and Plan (Free Text) Plan: Repeat HD today Transfuse 1 unit prbcs as per heme- do with HD Start EPO Try to increase UF goal due to CHF Will need outpt HD placement
[2018-03-30] MEDS: Fluticasone Nasal 50 mcg/Spray NAS SCH ×2 (11:27→18:47)
--- NOTE | 2018-03-30 17:43 | CP.PCM.PN ---
Subjective - Date & Time of Evaluation Date of Evaluation: 03/30/18 Time of Evaluation: 17:41 - Subjective Subjective: Patient is seen and examined S/P HD Objective - Vital Signs/Intake and Output Vital Signs (last 24 hours): Temp Pulse Resp BP Pulse Ox 97.4 F L 90 20 132/69 98 03/30/18 17:03 03/30/18 17:03 03/30/18 17:03 03/30/18 17:03 03/30/18 14:30 Intake and Output: 03/30/18 03/30/18 06:59 18:59 Intake Total 400 420 Balance 400 420 - Medications Medications: Current Medications Acetaminophen (Tylenol 325mg Tab) 650 mg PO Q6 PRN PRN Reason: Fever >100.4 F Last Admin: 03/29/18 22:47 Dose: 650 mg Acetylcysteine (Acetylcysteine 20%) 4 ml INH Q4H [facility] Last Admin: 03/30/18 15:53 Dose: Not Given Albuterol/Ipratropium (Duoneb 3 Mg/0.5 Mg (3 Ml) Ud) 3 ml INH Q4H [facility] Last Admin: 03/30/18 15:53 Dose: Not Given Amlodipine Besylate (Norvasc) 10 mg PO DAILY [facility] Last Admin: 03/30/18 10:20 Dose: 10 mg Benzonatate (Tessalon Perles) 100 mg PO TID [facility] Last Admin: 03/30/18 13:10 Dose: 100 mg Calcium Acetate (Phoslo) 667 mg PO TID [facility] Last Admin: 03/30/18 13:17 Dose: 667 mg Dextrose (Dextrose 50% Inj) 0 ml IV STAT PRN; Protocol PRN Reason: Hypoglycemia Protocol Dextrose (Glutose 15) 0 gm PO ONCE PRN; Protocol PRN Reason: Hypoglycemia Protocol Docusate Sodium (Colace) 100 mg PO BID [facility] Last Admin: 03/30/18 11:28 Dose: 100 mg Epoetin Brandon (Procrit) 10,000 unit IV MWF [facility] Fenofibrate (Tricor) 48 mg PO DAILY [facility] Last Admin: 03/30/18 10:21 Dose: 48 mg Fluticasone Propionate (Flonase) 2 spr SANJEEV BID [facility] Last Admin: 03/30/18 11:27 Dose: 2 sprays Folic Acid (Folic Acid) 1 mg PO DAILY [facility] Last Admin: 03/30/18 10:20 Dose: 1 mg Furosemide (Lasix) 20 mg IVP Q12H [facility] Last Admin: 03/30/18 13:00 Dose: 20 mg Glucagon (Glucagen Diagnostic Kit) 0 mg IM STAT PRN; Protocol PRN Reason: Hypoglycemia Protocol Meropenem 500 mg/ Sodium (Chloride) 100 mls @ 100 mls/hr IVPB Q8H [facility]; Protocol Last Admin: 03/30/18 08:40 Dose: 100 mls/hr Insulin Human Regular (Novolin R) 0 unit SC ACHS [facility]; Protocol Last Admin: 03/30/18 17:20 Dose: Not Given Levothyroxine Sodium (Synthroid) 100 mcg PO DAILY@0630 [facility] Last Admin: 03/30/18 05:30 Dose: 100 mcg Metoprolol Succinate (Toprol Xl) 25 mg PO DAILY [facility] Last Admin: 03/30/18 10:22 Dose: 25 mg Phenylephrine HCl (Steve-Synephrine 0.25% Nasal [place]) 0 ml NS Q12H PRN PRN Reason: Nasal congestion Rosuvastatin Calcium (Crestor) 10 mg PO HS [facility] Last Admin: 03/29/18 22:47 Dose: 10 mg Saccharomyces Boulardii (Florastor) 250 mg PO BID [facility] Last Admin: 03/30/18 10:20 Dose: 250 mg Sitagliptin Phosphate (Januvia) 25 mg PO DAILY [facility] Last Admin: 03/30/18 10:21 Dose: 25 mg - Labs Labs: 03/30/18 07:17 03/30/18 07:17 PT 14.5 SECONDS (9.7-12.2) H 03/29/18 11:10 INR 1.3 03/29/18 11:10 APTT 36 SECONDS (21-34) H 03/29/18 11:10 - Head Exam Head Exam: NORMAL INSPECTION - Eye Exam Eye Exam: Normal appearance - ENT Exam ENT Exam: Mucous Membranes Moist - Cardiovascular Exam Cardiovascular Exam: REGULAR RHYTHM, +S1, +S2 - GI/Abdominal Exam GI & Abdominal Exam: Soft, Normal Bowel Sounds - Extremities Exam Extremities Exam: Normal Inspection, Pedal Edema - Neurological Exam Neurological Exam: Alert, Awake - Psychiatric Exam Psychiatric exam: Normal Affect, Normal Mood Assessment and Plan (1) CHF (congestive heart failure) Status: Acute (2) CKD (chronic kidney disease) stage 5, GFR less than 15 ml/min Status: Acute (3) Pleural effusion Status: Acute (4) COPD (chronic obstructive pulmonary disease) Status: Acute (5) Diabetes Status: Acute (6) Pneumonia Status: Acute - Assessment and Plan (Free Text) Plan: BiPAP as needed Bronchodilators Continue Abx Supportive care DVT/GI prophalaxis
[2018-03-31] MEDS: Meropenem 500 MG in Sodium Chloride 0.9% 100 ML IVPB SCH ×3 (00:30→17:23)
[2018-03-31] MEDS: Acetylcysteine 20% Inhal Soln (4ml) INH SCH ×7 (00:40→23:59)
[2018-03-31] MEDS: Albuterol-Ipratrop 3 mg / 0.5 (3 ml) UD INH SCH ×7 (00:40→23:59)
[2018-03-31 01:18] LABS: HEMOGLOBIN 7.5 g/dL (11.0-16.0); MEAN CELL VOLUME 91.3 fL (81.0-99.0); MEAN CORPUSCULAR HEMOGLOBIN 30.2 pg (27.0-31.0); MEAN CORPUSCULAR HGB CONC 33.1 g/dL (33.0-37.0); MEAN PLATELET VOLUME 9.8 fL (7.2-11.7); RBC 2.48 Mil/uL (3.80-5.20); RED CELL DISTRIBUTION WIDTH 16.5 % (11.5-14.5); WHITE BLOOD COUNT 31.3 K/uL (4.8-10.8)
[2018-03-31] MEDS: Levothyroxine 100 MCG TAB PO SCH (05:47)
[2018-03-31] MEDS: (Novolin R) Insulin Human Regular 100 units/ml vial SC SCH ×4 (08:30→22:14)
[2018-03-31] MEDS: Fluticasone Nasal 50 mcg/Spray NAS SCH ×2 (09:11→17:24)
[2018-03-31] MEDS: Saccharomyces Boulardi 250 mg Cap PO SCH ×2 (09:11→17:22)
[2018-03-31] MEDS: Metoprolol Succinate 25 mg XL Tab PO SCH (09:12)
[2018-03-31 09:13] LABS: BASO # 0.1 K/uL (0.0-0.2); BASO % 0.2 % (0.0-2.0); EOS # 0.2 K/uL (0.0-0.7); EOS % 0.8 % (0.0-4.0); HEMOGLOBIN 7.7 g/dL (11.0-16.0); LYMPH # 2.7 K/uL (1.0-4.3); LYMPH % 8.8 % (20.0-40.0); MEAN CELL VOLUME 91.8 fL (81.0-99.0); MEAN CORPUSCULAR HEMOGLOBIN 29.9 pg (27.0-31.0); MEAN CORPUSCULAR HGB CONC 32.6 g/dL (33.0-37.0); MEAN PLATELET VOLUME 9.9 fL (7.2-11.7); MONO # 9.5 K/uL (0.0-0.8); MONO % 30.4 % (0.0-10.0); NEUT # 18.7 K/uL (1.8-7.0); NEUT % 59.8 % (50.0-75.0); NRBC % 0.3 % (0.0-2.0); PLATELET COUNT 72 K/uL (130-400); RBC 2.57 Mil/uL (3.80-5.20); RED CELL DISTRIBUTION WIDTH 16.4 % (11.5-14.5); WHITE BLOOD COUNT 31.2 K/uL (4.8-10.8)
--- NOTE | 2018-03-31 09:26 | CP.PCM.PN ---
Subjective - Date & Time of Evaluation Date of Evaluation: 03/31/18 Time of Evaluation: 09:10 - Subjective Subjective: Patient was seen by me earlier this morning before going to HD and she was very quickly moved to HD She explains her breathing overnight was coughing a lot and needed Bipap. The CXRAY shows a lot of venous congestion. She is going to have another session of HD this morning and from what I am being told another PRBC while there Hgb was 7.7 this morning. No fevers, and blood and sputum cultures negative. The WBC remains elevated. H istory of leukemia At this moment remains on the IV Meropeonom Objective - Vital Signs/Intake and Output Vital Signs (last 24 hours): Temp Pulse Resp BP Pulse Ox 99.2 F 99 H 30 H 141/59 L 95 03/31/18 07:02 03/31/18 07:02 03/31/18 07:02 03/31/18 07:02 03/31/18 07:02 Intake and Output: 03/31/18 03/31/18 06:59 18:59 Intake Total 500 Balance 500 - Medications Medications: Current Medications Acetaminophen (Tylenol 325mg Tab) 650 mg PO Q6 PRN PRN Reason: Fever >100.4 F Last Admin: 03/29/18 22:47 Dose: 650 mg Acetylcysteine (Acetylcysteine 20%) 4 ml INH Q4H [facility] Last Admin: 03/31/18 08:09 Dose: 4 ml Albuterol/Ipratropium (Duoneb 3 Mg/0.5 Mg (3 Ml) Ud) 3 ml INH Q4H [facility] Last Admin: 03/31/18 08:09 Dose: 3 ml Amlodipine Besylate (Norvasc) 10 mg PO DAILY [facility] Last Admin: 03/31/18 09:12 Dose: Not Given Benzonatate (Tessalon Perles) 100 mg PO TID [facility] Last Admin: 03/31/18 09:12 Dose: Not Given Calcium Acetate (Phoslo) 667 mg PO TID [facility] Last Admin: 03/31/18 09:12 Dose: Not Given Dextrose (Dextrose 50% Inj) 0 ml IV STAT PRN; Protocol PRN Reason: Hypoglycemia Protocol Dextrose (Glutose 15) 0 gm PO ONCE PRN; Protocol PRN Reason: Hypoglycemia Protocol Docusate Sodium (Colace) 100 mg PO BID [facility] Last Admin: 03/31/18 09:11 Dose: Not Given Epoetin Brandon (Procrit) 10,000 unit IV MWF [facility] Fenofibrate (Tricor) 48 mg PO DAILY [facility] Last Admin: 03/31/18 09:12 Dose: Not Given Fluticasone Propionate (Flonase) 2 spr SANJEEV BID [facility] Last Admin: 03/31/18 09:11 Dose: Not Given Folic Acid (Folic Acid) 1 mg PO DAILY [facility] Last Admin: 03/31/18 09:11 Dose: Not Given Furosemide (Lasix) 20 mg IVP Q12H [facility] Last Admin: 03/31/18 00:16 Dose: 20 mg Glucagon (Glucagen Diagnostic Kit) 0 mg IM STAT PRN; Protocol PRN Reason: Hypoglycemia Protocol Meropenem 500 mg/ Sodium (Chloride) 100 mls @ 100 mls/hr IVPB Q8H [facility]; Protocol Last Admin: 03/31/18 08:38 Dose: 100 mls/hr Insulin Human Regular (Novolin R) 0 unit SC ACHS [facility]; Protocol Last Admin: 03/31/18 08:30 Dose: 2 units Levothyroxine Sodium (Synthroid) 100 mcg PO DAILY@0630 [facility] Last Admin: 03/31/18 05:47 Dose: 100 mcg Metoprolol Succinate (Toprol Xl) 25 mg PO DAILY [facility] Last Admin: 03/31/18 09:12 Dose: Not Given Phenylephrine HCl (Steve-Synephrine 0.25% Nasal [place]) 0 ml NS Q12H PRN PRN Reason: Nasal congestion Rosuvastatin Calcium (Crestor) 10 mg PO HS [facility] Last Admin: 03/30/18 21:28 Dose: 10 mg Saccharomyces Boulardii (Florastor) 250 mg PO BID [facility] Last Admin: 03/31/18 09:11 Dose: Not Given Sitagliptin Phosphate (Januvia) 25 mg PO DAILY [facility] Last Admin: 03/31/18 09:11 Dose: Not Given - Labs Labs: 03/31/18 09:08 03/30/18 07:17 PT 14.5 SECONDS (9.7-12.2) H 03/29/18 11:10 INR 1.3 03/29/18 11:10 APTT 36 SECONDS (21-34) H 03/29/18 11:10 Assessment and Plan - Assessment and Plan (Free Text) Assessment: Assessment: 82 year old female with a PMHx of COPD, PVD CHF (w/ preserved EF), HTN, Leukemia (not on tx), HLD, CKD, Hypothyrodism, and Pneumonia admitted for evaluation and treatment of hospital acquired pneumonia. CT scan on admission showed small b/l pleural effusions. s/p L thoracentesis (03/26) POD#4 Plan: Healthcare Associated Pneumonia w/ Pleural Effusion Left lower lobe consolidation 03/31: This morning the CXRAY showed a lot of venous congestion had returned. She is being moved to have second session of HD now. She was anxious about her short of breath this morning Hopefully the HD removal of fluids will help CXR (03/24): Pulmonary venous congestive changes with near complete opacification left hemithorax consistent with large effusion and atelectasis. There has been progression of infiltrate changes right mid to lower lung field Chest CT (03/24): Moderately large left-sided effusion with left lower and to a lesser degree upper lobe atelectasis. Small right-sided effusion and minor right basilar atelectasis. Pulmonary venous congestive changes with ground- glass opacities. Repeat CXR (03/26, 03/27): improving, stable pulm edema, R>L Chest CT 03/27/18 Left lower lobe consolidation with mild patchy atelectatic with small effusion; left-sided effusion has decreased however the L ectatic changes have progressed. Atelectatic and or infiltrate changes in the right lung base and right upper lobe with small right-sided effusion increased from prior exam. Underlying pulmonary vascular congestive changes. Significant atherosclerotic disease involving the abdominal aorta and major branch vessels as above. Chronic appearing anterior wedge compression fractures of the T12 and L1 segments with retropulsion of the posterior superior corners of each segment resulting in canal narrowing. Repeat CXR 03/29 increasing pulmonary edema ID Consulted Dr. Rodriguez, help appreciated Pulmonology Consulted Dr. Hernandez, help appreciated As per Dr. Hernandez's note, who recommended repeat CT chest without contrast, once patient is able to able to lie flat. IR Consulted (Dr. Longoria), for thoracentesis. Patient had thoracentesis on 03/26, with 500cc fluid removed. Fluid analysis: Bloody appearance, 943 WBC, 56749 RBCs, [address], 67 neutrophils, 19 lymphocytes, 14 monocytes/macrophages, moderate mesothelial and macrophages seen on smear. Body fluid culture final no growth . Total protein 3.5. Pleural LDH 261. Pleural glucose 199. Incentive Spirometery Q1 Currently on BiPAP s/p SPRAY CEMENTER on 03/27. Titrate to SpO2 >94%. ProCal negative Legionella negative Mycoplasma negative TB quant negative Beta 1,3 D glucan 32 Blood Culture - neg x4 days Sputum Culture - normal oral rossi Meds: MucoMyst Q4H [facility] DuoNebs Q4H [facility] Tessalon Perles 100mg PO TID Meropenem 500mg Q8H [facility] per ID. Vancomycin 1g Daily [facility] (started 03/24) (03/27: random vanc 24.5 - held) -> discontinued 03/27 Tylenol 650mg PRN Lasix 40mg IVP BID --> decreased to Lasix 20mg IV BID Diastolic CHF, with preserved EF - Chronic ECHO (03/04/18): Grade II Pseudonormal filling dynamics, mild Pulml HTN, 60-65% EF EKG : NSR @ 92 BPM, No acute ST/T wave changes. BNP on Admission - 8470. CXR on Admission shows Pulm Congestion. 40mg Lasix Given in ED. Head of Bead elevated Strict Intake and Ouput Fluid/Salt Restriction Meds: Lasix 40mg IVP BID --> decreased to Lasix 20mg IV BID Metoprolol 25mg PO Daily f/u repeat CXR to determine volume status Anemia of chronic disease 03/31: Yesterday had one unit of blood and Hgb this morning was now 7.7 She is reciving another unit this morning I am told. The CXRAYs have a lot of congestion particulary after the first unit of blood so hopefully the hemodialysis should help. Ddx: CKD, Leukemia Anemia Workup Ordered Monitor H/H Meds: ProCrit [id number] (Last dose on 03/22/18) Folic acid 1mg PO daily Hb dropped to 6.3, due to get transfused 1 unit PRBC with HD today f/u CBC post transfusion ESRD CKD (Stage V), - Newly on Dialysis 03/31: Had dialysis catheter placment 03/29 after her chest xrays and creatine conitnued to worsen. The patient will have her second HD today. Per surgery will possibly get AVF next week if she is stable enough for this Est. GFR 17, Cr-2.7 on Admission Nephrology Consulted (Dr. Leach) No fluids due to CHF Renally Dose Medications Creatinine has worsened during hospitalization, upto 4.1 03/[address] Langston who recommended HD. Family at bedside agreeable to HD. Vascular Surgery Dr. Lindquist consulted, help appreciated. Right chest permacath placed on 03/29/18 Effient/Lovenox held, to be restarted 03/31/18 Due to have vein mapping for AV fistula Case discussed with patient's cafeteria assistant Dr. Lopez Day ([phone]) who stated that she was okay with patient receiving Epogen with dialysis. Status post 1st HD 03/29, due for 2nd HD today with 1 units PRBC transfusion Meds: Phoslo 667mg PO TID [facility] 10,000 units IV MWF HTN/CAD Meds: Amlodipine 10mg PO Daily Lasix 20 BID Metoprolol 25mg PO Daily Prasugrel 10mg PO Daily (held) - to be restarted 03/31/18 Rosuvastatin 10mg PO HS HLD Meds: Fenofibrate 48mg PO Daily Rosuvastatin 10mg PO HS Hypothyroidism Meds: Levothyroxine 100mcg Daily Type 2DM Januvia 25mg PO daily ISS History of MDS Patient gets ProCrit Injection every 14days Case discussed with patient's cafeteria assistant Dr. Lopez Day ([phone]) who stated that she was okay with patient receiving Epogen with dialysis. Constipation - Colace 100mg PO BID - Continue to monitor Proph Lovenox (Renally Dosed) HELD ( to be restarted 03/31/18 ) Heart Healthy Diet (2gm Na, 1500ml fluid Restriction, Renal) Florastor 250mg BID PT/OT Aspiration precautions: keep bed elevated to 30 degrees. Incentive spirometer Q1 hr Patient to use BIPAP during night and NC during day.
[2018-03-31 09:53] LABS: ALB/GLOB RATIO 0.9 (1.0-2.1); ALBUMIN 3.5 g/dL (3.5-5.0); CALCIUM 8.3 mg/dl (8.6-10.4)
--- NOTE | 2018-03-31 09:59 | RAD ---
Chest x-ray single frontal view HISTORY: Blood transfusion. COMPARISON: 03/30/2018 FINDINGS: Right central venous catheter tip extending into the right atrium. Moderate to severe venous congestion. Confluent airspace opacification seen within the mid to lower lung zones. Moderate bilateral pleural effusions. Cardiomegaly. Atherosclerotic calcification at the aortic knob. Degenerative changes in the spine and shoulders. Impression: Right central venous catheter tip extending into the right atrium. Moderate to severe venous congestion. Confluent airspace opacification seen within the mid to lower lung zones. Moderate bilateral pleural effusions. Cardiomegaly. Atherosclerotic calcification at the aortic knob.
--- NOTE | 2018-03-31 10:03 | CP.PCM.PN ---
Subjective - Date & Time of Evaluation Date of Evaluation: 03/31/18 Time of Evaluation: 10:00 - Subjective Subjective: Seen at dialysis Still requires bipap CXR still with CHF pattern s/p blood transfusion 03/30; repeat blood transfusion again with HD now- 1 unit prbcs To try to remove 3300ml fluids today Started on EPO no other new complaint/event Objective - Vital Signs/Intake and Output Vital Signs (last 24 hours): Temp Pulse Resp BP Pulse Ox 99.2 F 99 H 30 H 141/59 L 95 03/31/18 07:02 03/31/18 07:02 03/31/18 07:02 03/31/18 07:02 03/31/18 07:02 Intake and Output: 03/31/18 03/31/18 06:59 18:59 Intake Total 500 Balance 500 - Medications Medications: Current Medications Acetaminophen (Tylenol 325mg Tab) 650 mg PO Q6 PRN PRN Reason: Fever >100.4 F Last Admin: 03/29/18 22:47 Dose: 650 mg Acetylcysteine (Acetylcysteine 20%) 4 ml INH Q4H [facility] Last Admin: 03/31/18 08:09 Dose: 4 ml Albuterol/Ipratropium (Duoneb 3 Mg/0.5 Mg (3 Ml) Ud) 3 ml INH Q4H [facility] Last Admin: 03/31/18 08:09 Dose: 3 ml Amlodipine Besylate (Norvasc) 10 mg PO DAILY [facility] Last Admin: 03/31/18 09:12 Dose: Not Given Benzonatate (Tessalon Perles) 100 mg PO TID [facility] Last Admin: 03/31/18 09:12 Dose: Not Given Calcium Acetate (Phoslo) 667 mg PO TID [facility] Last Admin: 03/31/18 09:12 Dose: Not Given Dextrose (Dextrose 50% Inj) 0 ml IV STAT PRN; Protocol PRN Reason: Hypoglycemia Protocol Dextrose (Glutose 15) 0 gm PO ONCE PRN; Protocol PRN Reason: Hypoglycemia Protocol Docusate Sodium (Colace) 100 mg PO BID [facility] Last Admin: 03/31/18 09:11 Dose: Not Given Epoetin Brandon (Procrit) 10,000 unit IV MWF [facility] Fenofibrate (Tricor) 48 mg PO DAILY [facility] Last Admin: 03/31/18 09:12 Dose: Not Given Fluticasone Propionate (Flonase) 2 spr SANJEEV BID [facility] Last Admin: 03/31/18 09:11 Dose: Not Given Folic Acid (Folic Acid) 1 mg PO DAILY [facility] Last Admin: 03/31/18 09:11 Dose: Not Given Furosemide (Lasix) 20 mg IVP Q12H [facility] Last Admin: 03/31/18 00:16 Dose: 20 mg Glucagon (Glucagen Diagnostic Kit) 0 mg IM STAT PRN; Protocol PRN Reason: Hypoglycemia Protocol Meropenem 500 mg/ Sodium (Chloride) 100 mls @ 100 mls/hr IVPB Q8H [facility]; Protocol Last Admin: 03/31/18 08:38 Dose: 100 mls/hr Insulin Human Regular (Novolin R) 0 unit SC ACHS [facility]; Protocol Last Admin: 03/31/18 08:30 Dose: 2 units Levothyroxine Sodium (Synthroid) 100 mcg PO DAILY@0630 [facility] Last Admin: 03/31/18 05:47 Dose: 100 mcg Metoprolol Succinate (Toprol Xl) 25 mg PO DAILY [facility] Last Admin: 03/31/18 09:12 Dose: Not Given Phenylephrine HCl (Steve-Synephrine 0.25% Nasal [place]) 0 ml NS Q12H PRN PRN Reason: Nasal congestion Rosuvastatin Calcium (Crestor) 10 mg PO HS [facility] Last Admin: 03/30/18 21:28 Dose: 10 mg Saccharomyces Boulardii (Florastor) 250 mg PO BID [facility] Last Admin: 03/31/18 09:11 Dose: Not Given Sitagliptin Phosphate (Januvia) 25 mg PO DAILY [facility] Last Admin: 03/31/18 09:11 Dose: Not Given - Labs Labs: 03/31/18 09:08 03/31/18 09:08 PT 14.5 SECONDS (9.7-12.2) H 03/29/18 11:10 INR 1.3 03/29/18 11:10 APTT 36 SECONDS (21-34) H 03/29/18 11:10 - Constitutional Appears: No Acute Distress, Chronically Ill - Head Exam Head Exam: ATRAUMATIC, NORMAL INSPECTION - Eye Exam Eye Exam: EOMI, Normal appearance - Neck Exam Neck Exam: Normal Inspection. absent: Tenderness - Respiratory Exam Respiratory Exam: Rhonchi, Respiratory Distress - Cardiovascular Exam Cardiovascular Exam: REGULAR RHYTHM, +S1 - GI/Abdominal Exam GI & Abdominal Exam: Soft. absent: Tenderness - Extremities Exam Extremities Exam: Normal Inspection. absent: Tenderness - Neurological Exam Neurological Exam: Alert, CN II-XII Intact - Skin Skin Exam: Dry, Warm Assessment and Plan (1) CKD (chronic kidney disease) stage 5, GFR less than 15 ml/min Status: Acute (2) CHF (congestive heart failure) Status: Acute (3) CMML (chronic myelomonocytic leukemia) Status: Acute (4) Chronic anemia Status: Acute (5) ESRD (end stage renal disease) Status: Acute - Assessment and Plan (Free Text) Plan: Dialysis now then MWF Trying more aggressive UF rate Blood transfusion today again EPO, weekly IV Fe Will need AV F
[2018-03-31 10:35] LABS: BANDS 2 % (0-2); EOSINOPHIL 1 % (0-4); LYMPHOCYTE 4 % (20-40); MONOCYTE 25 % (0-10); NEUTROPHIL 68 % (50-75); TOTAL CELLS COUNTED 100
[2018-03-31 10:36] LABS: ANISOCYTOSIS SLIGHT; HYPOCHROMIC SLIGHT; PLATELET ESTIMATE DECREASED (NORMAL); POLYCHROMIC SLIGHT
[2018-04-01] MEDS: Meropenem 500 MG in Sodium Chloride 0.9% 100 ML IVPB SCH ×3 (00:32→17:40)
[2018-04-01] MEDS: Acetylcysteine 20% Inhal Soln (4ml) INH SCH ×5 (03:22→20:53)
[2018-04-01] MEDS: Albuterol-Ipratrop 3 mg / 0.5 (3 ml) UD INH SCH ×5 (03:22→20:53)
[2018-04-01] MEDS: Levothyroxine 100 MCG TAB PO SCH (05:37)
[2018-04-01 07:35] LABS: BASO # 0.1 K/uL (0.0-0.2); BASO % 0.4 % (0.0-2.0); EOS # 0.4 K/uL (0.0-0.7); EOS % 1.3 % (0.0-4.0); HEMOGLOBIN 9.4 g/dL (11.0-16.0); LYMPH # 2.3 K/uL (1.0-4.3); LYMPH % 8.1 % (20.0-40.0); MEAN CELL VOLUME 90.7 fL (81.0-99.0); MEAN CORPUSCULAR HEMOGLOBIN 30.6 pg (27.0-31.0); MEAN CORPUSCULAR HGB CONC 33.7 g/dL (33.0-37.0); MEAN PLATELET VOLUME 9.3 fL (7.2-11.7); MONO # 8.5 K/uL (0.0-0.8); MONO % 30.3 % (0.0-10.0); NEUT # 16.8 K/uL (1.8-7.0); NEUT % 59.9 % (50.0-75.0); NRBC % 0.1 % (0.0-2.0); PLATELET COUNT 55 K/uL (130-400); RBC 3.07 Mil/uL (3.80-5.20); RED CELL DISTRIBUTION WIDTH 17.1 % (11.5-14.5); WHITE BLOOD COUNT 28.1 K/uL (4.8-10.8)
[2018-04-01] MEDS: (Novolin R) Insulin Human Regular 100 units/ml vial SC SCH ×4 (07:43→21:46)
[2018-04-01 07:58] LABS: ALB/GLOB RATIO 0.8 (1.0-2.1); ALBUMIN 3.4 g/dL (3.5-5.0); CALCIUM 8.2 mg/dl (8.6-10.4)
[2018-04-01 08:33] LABS: BANDS 3 % (0-2); EOSINOPHIL 3 % (0-4); LYMPHOCYTE 7 % (20-40); METAMYELOCYTE 1 % (0-0); MONOCYTE 28 % (0-10); NEUTROPHIL 57 % (50-75); PLATELET ESTIMATE DECREASED (NORMAL); REACTIVE LYMPHOCYTES 1 % (0-0); TOTAL CELLS COUNTED 100
[2018-04-01 08:35] LABS: ANISOCYTOSIS MODERATE; HYPOCHROMIC SLIGHT; LARGE PLATELETS PRESENT; OVALOCYTES SLIGHT; POIKILOCYTOSIS SLIGHT; POLYCHROMIC SLIGHT; SCHISTOCYTES SLIGHT
--- NOTE | 2018-04-01 08:58 | RAD ---
Chest x-ray single frontal view History: Congestive heart failure. Comparison 03/30/2018 Findings: Severe venous congestion Confluent airspace opacification in the mid to lower lung zones. Moderate bilateral pleural effusions. Cardiomegaly. Right central venous catheter tip extending into the right atrium. Degenerative changes in the spine. Calcific tendinopathy of the left proximal humerus. Impression: Severe venous congestion Confluent airspace opacification in the mid to lower lung zones. Moderate bilateral pleural effusions. Cardiomegaly. Right central venous catheter tip extending into the right atrium.
[2018-04-01] MEDS: Fluticasone Nasal 50 mcg/Spray NAS SCH ×2 (09:44→17:39)
[2018-04-01] MEDS: Metoprolol Succinate 25 mg XL Tab PO SCH (09:45)
[2018-04-01] MEDS: Saccharomyces Boulardi 250 mg Cap PO SCH ×2 (09:46→17:39)
--- NOTE | 2018-04-01 10:34 | CP.PCM.PN ---
<Emile Seals - Last Filed: 04/01/18 10:34> Subjective - Date & Time of Evaluation Date of Evaluation: 04/01/18 Time of Evaluation: 10:34 Objective - Vital Signs/Intake and Output Vital Signs (last 24 hours): Temp Pulse Resp BP Pulse Ox 98.6 F 97 H 22 146/62 99 04/01/18 07:00 04/01/18 09:42 04/01/18 07:00 04/01/18 09:42 04/01/18 07:00 Intake and Output: 04/01/18 04/01/18 06:59 18:59 Intake Total 700 Balance 700 - Medications Medications: Current Medications Acetaminophen (Tylenol 325mg Tab) 650 mg PO Q6 PRN PRN Reason: Fever >100.4 F Last Admin: 03/29/18 22:47 Dose: 650 mg Acetylcysteine (Acetylcysteine 20%) 4 ml INH Q4H [facility] Last Admin: 04/01/18 08:18 Dose: 4 ml Albuterol/Ipratropium (Duoneb 3 Mg/0.5 Mg (3 Ml) Ud) 3 ml INH Q4H [facility] Last Admin: 04/01/18 08:18 Dose: 3 ml Amlodipine Besylate (Norvasc) 10 mg PO DAILY [facility] Last Admin: 04/01/18 09:45 Dose: 10 mg Benzonatate (Tessalon Perles) 100 mg PO TID [facility] Last Admin: 04/01/18 09:45 Dose: 100 mg Calcium Acetate (Phoslo) 667 mg PO TID [facility] Last Admin: 04/01/18 09:45 Dose: 667 mg Dextrose (Dextrose 50% Inj) 0 ml IV STAT PRN; Protocol PRN Reason: Hypoglycemia Protocol Dextrose (Glutose 15) 0 gm PO ONCE PRN; Protocol PRN Reason: Hypoglycemia Protocol Docusate Sodium (Colace) 100 mg PO BID [facility] Last Admin: 04/01/18 09:45 Dose: 100 mg Epoetin Brandon (Procrit) 10,000 unit IV MWF [facility] Fenofibrate (Tricor) 48 mg PO DAILY [facility] Last Admin: 04/01/18 09:45 Dose: 48 mg Fluticasone Propionate (Flonase) 2 spr SANJEEV BID [facility] Last Admin: 04/01/18 09:44 Dose: Not Given Folic Acid (Folic Acid) 1 mg PO DAILY [facility] Last Admin: 04/01/18 09:45 Dose: 1 mg Furosemide (Lasix) 20 mg IVP Q12H [facility] Last Admin: 04/01/18 00:32 Dose: 20 mg Glucagon (Glucagen Diagnostic Kit) 0 mg IM STAT PRN; Protocol PRN Reason: Hypoglycemia Protocol Meropenem 500 mg/ Sodium (Chloride) 100 mls @ 100 mls/hr IVPB Q8H [facility]; Protocol Last Admin: 04/01/18 08:44 Dose: 100 mls/hr Insulin Human Regular (Novolin R) 0 unit SC ACHS [facility]; Protocol Last Admin: 04/01/18 07:43 Dose: Not Given Levothyroxine Sodium (Synthroid) 100 mcg PO DAILY@0630 [facility] Last Admin: 04/01/18 05:37 Dose: 100 mcg Metoprolol Succinate (Toprol Xl) 25 mg PO DAILY [facility] Last Admin: 04/01/18 09:45 Dose: 25 mg Phenylephrine HCl (Steve-Synephrine 0.25% Nasal [place]) 0 ml NS Q12H PRN PRN Reason: Nasal congestion Rosuvastatin Calcium (Crestor) 10 mg PO HS [facility] Last Admin: 03/31/18 21:20 Dose: 10 mg Saccharomyces Boulardii (Florastor) 250 mg PO BID [facility] Last Admin: 04/01/18 09:46 Dose: 250 mg Sitagliptin Phosphate (Januvia) 25 mg PO DAILY [facility] Last Admin: 04/01/18 09:45 Dose: 25 mg - Labs Labs: 04/01/18 07:23 04/01/18 07:23 PT 14.5 SECONDS (9.7-12.2) H 03/29/18 11:10 INR 1.3 03/29/18 11:10 APTT 36 SECONDS (21-34) H 03/29/18 11:10 <Reji Reyes H - Last Filed: 04/01/18 12:19> Subjective - Subjective Subjective: Patient was seen and examined by me. Family member at bedside and we discussed. The patient reports she feels like her breathing is much better than previous day. Yesterday she had HD done and felt much better overnight. Currently off of the Bipap and on nasal cannula. She is speaking in full sentences, denied chest pain, denied palpitations, denied abdominal pain. She had another unit of blood with HD yesterday. The Hgb is 9.4 today. Objective - Vital Signs/Intake and Output Vital Signs (last 24 hours): Temp Pulse Resp BP Pulse Ox 98.6 F 97 H 22 146/62 99 04/01/18 07:00 04/01/18 09:42 04/01/18 07:00 04/01/18 09:42 04/01/18 07:00 Intake and Output: 04/01/18 04/01/18 06:59 18:59 Intake Total 700 Balance 700 - Medications Medications: Current Medications Acetaminophen (Tylenol 325mg Tab) 650 mg PO Q6 PRN PRN Reason: Fever >100.4 F Last Admin: 03/29/18 22:47 Dose: 650 mg Acetylcysteine (Acetylcysteine 20%) 4 ml INH Q4H [facility] Last Admin: 04/01/18 08:18 Dose: 4 ml Albuterol/Ipratropium (Duoneb 3 Mg/0.5 Mg (3 Ml) Ud) 3 ml INH Q4H [facility] Last Admin: 04/01/18 08:18 Dose: 3 ml Amlodipine Besylate (Norvasc) 10 mg PO DAILY [facility] Last Admin: 04/01/18 09:45 Dose: 10 mg Benzonatate (Tessalon Perles) 100 mg PO TID [facility] Last Admin: 04/01/18 09:45 Dose: 100 mg Calcium Acetate (Phoslo) 667 mg PO TID [facility] Last Admin: 04/01/18 09:45 Dose: 667 mg Dextrose (Dextrose 50% Inj) 0 ml IV STAT PRN; Protocol PRN Reason: Hypoglycemia Protocol Dextrose (Glutose 15) 0 gm PO ONCE PRN; Protocol PRN Reason: Hypoglycemia Protocol Docusate Sodium (Colace) 100 mg PO BID [facility] Last Admin: 04/01/18 09:45 Dose: 100 mg Epoetin Brandon (Procrit) 10,000 unit IV MWF [facility] Fenofibrate (Tricor) 48 mg PO DAILY [facility] Last Admin: 04/01/18 09:45 Dose: 48 mg Fluticasone Propionate (Flonase) 2 spr SANJEEV BID [facility] Last Admin: 04/01/18 09:44 Dose: Not Given Folic Acid (Folic Acid) 1 mg PO DAILY [facility] Last Admin: 04/01/18 09:45 Dose: 1 mg Furosemide (Lasix) 20 mg IVP Q12H [facility] Last Admin: 04/01/18 00:32 Dose: 20 mg Glucagon (Glucagen Diagnostic Kit) 0 mg IM STAT PRN; Protocol PRN Reason: Hypoglycemia Protocol Meropenem 500 mg/ Sodium (Chloride) 100 mls @ 100 mls/hr IVPB Q8H [facility]; Protocol Last Admin: 04/01/18 08:44 Dose: 100 mls/hr Insulin Human Regular (Novolin R) 0 unit SC ACHS [facility]; Protocol Last Admin: 04/01/18 07:43 Dose: Not Given Levothyroxine Sodium (Synthroid) 100 mcg PO DAILY@0630 [facility] Last Admin: 04/01/18 05:37 Dose: 100 mcg Metoprolol Succinate (Toprol Xl) 25 mg PO DAILY [facility] Last Admin: 04/01/18 09:45 Dose: 25 mg Phenylephrine HCl (Steve-Synephrine 0.25% Nasal [place]) 0 ml NS Q12H PRN PRN Reason: Nasal congestion Rosuvastatin Calcium (Crestor) 10 mg PO HS [facility] Last Admin: 03/31/18 21:20 Dose: 10 mg Saccharomyces Boulardii (Florastor) 250 mg PO BID [facility] Last Admin: 04/01/18 09:46 Dose: 250 mg Sitagliptin Phosphate (Januvia) 25 mg PO DAILY [facility] Last Admin: 04/01/18 09:45 Dose: 25 mg - Labs Labs: 04/01/18 07:23 04/01/18 07:23 PT 14.5 SECONDS (9.7-12.2) H 03/29/18 11:10 INR 1.3 03/29/18 11:10 APTT 36 SECONDS (21-34) H 03/29/18 11:10 - Constitutional Appears: Non-toxic, No Acute Distress, Chronically Ill - Head Exam Head Exam: NORMAL INSPECTION, NORMOCEPHALIC - Eye Exam Eye Exam: EOMI, Normal appearance - ENT Exam ENT Exam: Mucous Membranes Moist - Respiratory Exam Respiratory Exam: Decreased Breath Sounds, Rales, Wheezes - Cardiovascular Exam Cardiovascular Exam: REGULAR RHYTHM - GI/Abdominal Exam GI & Abdominal Exam: Soft, Normal Bowel Sounds. absent: Firm, Guarding, Rigid, Tenderness - Neurological Exam Neurological Exam: Alert, Awake Neuro motor strength exam: Left Upper Extremity: 5, Right Upper Extremity: 5, Left Lower Extremity: 4, Right Lower Extremity: 4 - Skin Skin Exam: Normal Color, Warm Assessment and Plan - Assessment and Plan (Free Text) Assessment: Assessment: 82 year old female with a PMHx of COPD, PVD CHF (w/ preserved EF), HTN, Leukemia (not on tx), HLD, CKD, Hypothyrodism, and Pneumonia admitted for evaluation and treatment of hospital acquired pneumonia. CT scan on admission showed small b/l pleural effusions. s/p L thoracentesis (03/26) POD#4 Plan: Healthcare Associated Pneumonia w/ Pleural Effusion Left lower lobe consolidation 04/01: Patient reports feeling a lot better after HD. Currently off of the bipap at this time. Blood and pleural fluid cultures negative. 03/31: This morning the CXRAY showed a lot of venous congestion had returned. She is being moved to have second session of HD now. She was anxious about her short of breath this morning Hopefully the HD removal of fluids will help CXR (03/24): Pulmonary venous congestive changes with near complete opacifi cation left hemithorax consistent with large effusion and atelectasis. There has been progression of infiltrate changes right mid to lower lung field Chest CT (03/24): Moderately large left-sided effusion with left lower and to a lesser degree upper lobe atelectasis. Small right-sided effusion and minor right basilar atelectasis. Pulmonary venous congestive changes with ground- glass opacities. Repeat CXR (03/26, 03/27): improving, stable pulm edema, R>L Chest CT 03/27/18 Left lower lobe consolidation with mild patchy atelectatic with small effusion; left-sided effusion has decreased however the L ectatic changes have progressed. Atelectatic and or infiltrate changes in the right lung base and right upper lobe with small right-sided effusion increased from prior exam. Underlying pulmonary vascular congestive changes. 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 Chronic appearing anterior wedge compression fractures of the T12 and L1 segments with retropulsion of the posterior superior corners of each segment resulting in canal narrowing. Repeat CXR 03/29 increasing pulmonary edema ID Consulted Dr. Rodriguez, help appreciated Pulmonology Consulted Dr. Hernandez, help appreciated As per Dr. Hernandez's note, who recommended repeat CT chest without co ntrast, once patient is able to able to lie flat. IR Consulted (Dr. Longoria), for thoracentesis. Patient had thoracentesis on 03/26, with 500cc fluid removed. Fluid analysis: Bloody appearance, 943 WBC, 99075 RBCs, [address], 67 neutrophils, 19 lymphocytes, 14 monocytes/macrophages, moderate mesothelial and macrophages seen on smear. Body fluid culture final no growth . Total protein 3 .5. Pleural LDH 261. Pleural glucose 199. Incentive Spirometery Q1 Currently on BiPAP s/p [employer] SUPER[employer]OR on 03/27. Titrate to SpO2 >94%. ProCal negative Legionella negative Mycoplasma negative TB quant negative Beta 1,3 D glucan 32 Blood Culture - neg x4 days Sputum Culture - normal oral rossi Meds: MucoMyst Q4H [facility] DuoNebs Q4H [facility] Tessalon Perles 100mg PO TID Meropenem 500mg Q8H [facility] per ID. Vancomycin 1g Daily [facility] (started 03/24) (03/27: random vanc 24.5 - held) -> discontinued 03/27 Tylenol 650mg PRN Lasix 40mg IVP BID --> decreased to Lasix 20mg IV BID Diastolic CHF, with preserved EF - Chronic ECHO (03/04/18): Grade II Pseudonormal filling dynamics, mild Pulml HTN, 60-65% EF EKG : NSR @ 92 BPM, No acute ST/T wave changes. BNP on Admission - 8470. CXR on Admission shows Pulm Congestion. 40mg Lasix Given in ED. Head of Bead elevated Strict Intake and Ouput Fluid/Salt Restriction Meds: Lasix 40mg IVP BID --> decreased to Lasix 20mg IV BID Metoprolol 25mg PO Daily f/u repeat CXR to determine volume status Anemia of chronic disease 04/01: Hgb now 9.4, has had two units so far. On procrit as well. 03/31: Yesterday had one unit of blood and Hgb this morning was now 7.7 She is reciving another unit this morning I am told. The CXRAYs have a lot of congestion particulary after the first unit of blood so hopefully the hemodialysis should help. Ddx: CKD, Leukemia Monitor H/H Meds: ProCrit [id number] (Last dose on 03/22/18) Folic acid 1mg PO daily ESRD CKD (Stage V), - Newly on Dialysis 04/01: Pending AVF at some point. 03/31: Had dialysis catheter placment 03/29 after her chest xrays and creatine conitnued to worsen. The patient will have her second HD today. Per surgery will possibly get AVF next week if she is stable enough for this Est. GFR 17, Cr-2.7 on Admission Nephrology Consulted (Dr. Leach) Creatinine has worsened during hospitalization, upto 4.1 03/[address] Langston who recommended HD. Family at bedside agreeable to HD. Vascular Surgery Dr. Lindquist consulted, help appreciated. Right chest permacath placed on 03/29/18 Effient/Lovenox held, to be restarted 03/31/18 Due to have vein mapping for AV fistula Case discussed with patient's director employee communications Dr. Lopez Day ([phone]) who stated that she was okay with patient receiving Epogen with dialysis. Status post 1st HD 03/29, due for 2nd HD today with 1 units PRBC transfusion Meds: Phoslo 667mg PO TID Procrit 10,000 units IV MWF HTN/CAD Meds: Amlodipine 10mg PO Daily Lasix 20 BID Metoprolol 25mg PO Daily Prasugrel 10mg PO Daily (held) - to be restarted 03/31/18 Rosuvastatin 10mg PO HS HLD Meds: Fenofibrate 48mg PO Daily Rosuvastatin 10mg PO HS Hypothyroidism Meds: Levothyroxine 100mcg Daily Type 2DM Januvia 25mg PO daily ISS History of MDS Patient gets ProCrit Injection every 14days Case discussed with patient's director employee communications Dr. Lopez Day ([phone]) who stated that she was okay with patient receiving Epogen with dialysis. Constipation - Colace 100mg PO BID - Continue to monitor Proph Lovenox (Renally Dosed) HELD ( to be restarted 03/31/18 ) Heart Healthy Diet (2gm Na, 1500ml fluid Restriction, Renal) Florastor 250mg BID PT/OT Aspiration precautions: keep bed elevated to 30 degrees. Incentive spirometer Q1 hr Patient to use BIPAP during night and NC during day.
[2018-04-01] MEDS: Enoxaparin 30 mg Syringe SC SCH (13:32)
--- NOTE | 2018-04-01 17:18 | CP.PCM.PN ---
Subjective - Date & Time of Evaluation Date of Evaluation: 04/01/18 Time of Evaluation: 07:00 - Subjective Subjective: events noted HD in progress Objective - Vital Signs/Intake and Output Vital Signs (last 24 hours): Temp Pulse Resp BP Pulse Ox 99.6 F 101 H 30 H 140/64 100 04/01/18 15:00 04/01/18 16:00 04/01/18 15:00 04/01/18 15:00 04/01/18 15:00 Intake and Output: 04/01/18 04/01/18 06:59 18:59 Intake Total 700 400 Balance 700 400 - Medications Medications: Current Medications Acetaminophen (Tylenol 325mg Tab) 650 mg PO Q6 PRN PRN Reason: Fever >100.4 F Last Admin: 03/29/18 22:47 Dose: 650 mg Acetylcysteine (Acetylcysteine 20%) 4 ml INH Q4H [facility] Last Admin: 04/01/18 17:00 Dose: 4 ml Albuterol/Ipratropium (Duoneb 3 Mg/0.5 Mg (3 Ml) Ud) 3 ml INH Q4H [facility] Last Admin: 04/01/18 17:00 Dose: 3 ml Amlodipine Besylate (Norvasc) 10 mg PO DAILY [facility] Last Admin: 04/01/18 09:45 Dose: 10 mg Benzonatate (Tessalon Perles) 100 mg PO TID [facility] Last Admin: 04/01/18 13:32 Dose: 100 mg Calcium Acetate (Phoslo) 667 mg PO TID [facility] Last Admin: 04/01/18 13:32 Dose: 667 mg Dextrose (Dextrose 50% Inj) 0 ml IV STAT PRN; Protocol PRN Reason: Hypoglycemia Protocol Dextrose (Glutose 15) 0 gm PO ONCE PRN; Protocol PRN Reason: Hypoglycemia Protocol Docusate Sodium (Colace) 100 mg PO BID [facility] Last Admin: 04/01/18 09:45 Dose: 100 mg Enoxaparin Sodium (Lovenox) 30 mg SC DAILY [facility] Last Admin: 04/01/18 13:32 Dose: 30 mg Epoetin Brandon (Procrit) 10,000 unit IV MWF [facility] Fenofibrate (Tricor) 48 mg PO DAILY [facility] Last Admin: 04/01/18 09:45 Dose: 48 mg Fluticasone Propionate (Flonase) 2 spr SANJEEV BID [facility] Last Admin: 04/01/18 09:44 Dose: Not Given Folic Acid (Folic Acid) 1 mg PO DAILY [facility] Last Admin: 04/01/18 09:45 Dose: 1 mg Furosemide (Lasix) 20 mg IVP Q12H [facility] Last Admin: 04/01/18 12:37 Dose: 20 mg Glucagon (Glucagen Diagnostic Kit) 0 mg IM STAT PRN; Protocol PRN Reason: Hypoglycemia Protocol Meropenem 500 mg/ Sodium (Chloride) 100 mls @ 100 mls/hr IVPB Q8H [facility]; Protocol Last Admin: 04/01/18 08:44 Dose: 100 mls/hr Insulin Human Regular (Novolin R) 0 unit SC ACHS [facility]; Protocol Last Admin: 04/01/18 12:30 Dose: 2 units Levothyroxine Sodium (Synthroid) 100 mcg PO DAILY@0630 [facility] Last Admin: 04/01/18 05:37 Dose: 100 mcg Metoprolol Succinate (Toprol Xl) 25 mg PO DAILY [facility] Last Admin: 04/01/18 09:45 Dose: 25 mg Phenylephrine HCl (Steve-Synephrine 0.25% Nasal [place]) 0 ml NS Q12H PRN PRN Reason: Nasal congestion Prasugrel (Effient) 10 mg PO DAILY [facility] Last Admin: 04/01/18 13:32 Dose: 10 mg Rosuvastatin Calcium (Crestor) 10 mg PO HS [facility] Last Admin: 03/31/18 21:20 Dose: 10 mg Saccharomyces Boulardii (Florastor) 250 mg PO BID [facility] Last Admin: 04/01/18 09:46 Dose: 250 mg Sitagliptin Phosphate (Januvia) 25 mg PO DAILY [facility] Last Admin: 04/01/18 09:45 Dose: 25 mg - Labs Labs: 04/01/18 07:23 04/01/18 07:23 PT 14.5 SECONDS (9.7-12.2) H 03/29/18 11:10 INR 1.3 03/29/18 11:10 APTT 36 SECONDS (21-34) H 03/29/18 11:10 - Constitutional Appears: Non-toxic, Chronically Ill - Eye Exam Eye Exam: absent: Scleral icterus - ENT Exam ENT Exam: Mucous Membranes Dry - Neck Exam Neck Exam: absent: Lymphadenopathy - Respiratory Exam Respiratory Exam: Decreased Breath Sounds - Cardiovascular Exam Cardiovascular Exam: REGULAR RHYTHM - GI/Abdominal Exam GI & Abdominal Exam: Distended, Soft Assessment and Plan (1) CHF (congestive heart failure) Status: Acute (2) Leukocytosis Status: Acute (3) Pleural effusion Status: Acute (4) LUCRECIA (acute kidney injury) Status: Acute (5) Pneumonia Status: Acute (6) Leukemia Status: Acute - Assessment and Plan (Free Text) Assessment: cont rx /HD
--- NOTE | 2018-04-01 18:03 | CP.PCM.PN ---
Subjective - Date & Time of Evaluation Date of Evaluation: 04/01/18 Time of Evaluation: 18:01 - Subjective Subjective: Patient is seen and examined No events overnight Objective - Vital Signs/Intake and Output Vital Signs (last 24 hours): Temp Pulse Resp BP Pulse Ox 99.6 F 101 H 30 H 140/64 100 04/01/18 15:00 04/01/18 16:00 04/01/18 15:00 04/01/18 15:00 04/01/18 15:00 Intake and Output: 04/01/18 04/01/18 06:59 18:59 Intake Total 700 400 Balance 700 400 - Medications Medications: Current Medications Acetaminophen (Tylenol 325mg Tab) 650 mg PO Q6 PRN PRN Reason: Fever >100.4 F Last Admin: 03/29/18 22:47 Dose: 650 mg Acetylcysteine (Acetylcysteine 20%) 4 ml INH Q4H [facility] Last Admin: 04/01/18 17:00 Dose: 4 ml Albuterol/Ipratropium (Duoneb 3 Mg/0.5 Mg (3 Ml) Ud) 3 ml INH Q4H [facility] Last Admin: 04/01/18 17:00 Dose: 3 ml Amlodipine Besylate (Norvasc) 10 mg PO DAILY [facility] Last Admin: 04/01/18 09:45 Dose: 10 mg Benzonatate (Tessalon Perles) 100 mg PO TID [facility] Last Admin: 04/01/18 17:39 Dose: 100 mg Calcium Acetate (Phoslo) 667 mg PO TID [facility] Last Admin: 04/01/18 17:39 Dose: 667 mg Dextrose (Dextrose 50% Inj) 0 ml IV STAT PRN; Protocol PRN Reason: Hypoglycemia Protocol Dextrose (Glutose 15) 0 gm PO ONCE PRN; Protocol PRN Reason: Hypoglycemia Protocol Docusate Sodium (Colace) 100 mg PO BID [facility] Last Admin: 04/01/18 17:39 Dose: 100 mg Enoxaparin Sodium (Lovenox) 30 mg SC DAILY [facility] Last Admin: 04/01/18 13:32 Dose: 30 mg Epoetin Brandon (Procrit) 10,000 unit IV MWF [facility] Fenofibrate (Tricor) 48 mg PO DAILY [facility] Last Admin: 04/01/18 09:45 Dose: 48 mg Fluticasone Propionate (Flonase) 2 spr SANJEEV BID [facility] Last Admin: 04/01/18 17:39 Dose: 2 sprays Folic Acid (Folic Acid) 1 mg PO DAILY [facility] Last Admin: 04/01/18 09:45 Dose: 1 mg Furosemide (Lasix) 20 mg IVP Q12H [facility] Last Admin: 04/01/18 12:37 Dose: 20 mg Glucagon (Glucagen Diagnostic Kit) 0 mg IM STAT PRN; Protocol PRN Reason: Hypoglycemia Protocol Meropenem 500 mg/ Sodium (Chloride) 100 mls @ 100 mls/hr IVPB Q8H [facility]; Protocol Last Admin: 04/01/18 17:40 Dose: 100 mls/hr Insulin Human Regular (Novolin R) 0 unit SC ACHS [facility]; Protocol Last Admin: 04/01/18 17:39 Dose: 1 units Levothyroxine Sodium (Synthroid) 100 mcg PO DAILY@0630 [facility] Last Admin: 04/01/18 05:37 Dose: 100 mcg Metoprolol Succinate (Toprol Xl) 25 mg PO DAILY [facility] Last Admin: 04/01/18 09:45 Dose: 25 mg Phenylephrine HCl (Steve-Synephrine 0.25% Nasal [place]) 0 ml NS Q12H PRN PRN Reason: Nasal congestion Prasugrel (Effient) 10 mg PO DAILY [facility] Last Admin: 04/01/18 13:32 Dose: 10 mg Rosuvastatin Calcium (Crestor) 10 mg PO HS [facility] Last Admin: 03/31/18 21:20 Dose: 10 mg Saccharomyces Boulardii (Florastor) 250 mg PO BID [facility] Last Admin: 04/01/18 17:39 Dose: 250 mg Sitagliptin Phosphate (Januvia) 25 mg PO DAILY [facility] Last Admin: 04/01/18 09:45 Dose: 25 mg - Labs Labs: 04/01/18 07:23 04/01/18 07:23 PT 14.5 SECONDS (9.7-12.2) H 03/29/18 11:10 INR 1.3 03/29/18 11:10 APTT 36 SECONDS (21-34) H 03/29/18 11:10 - Head Exam Head Exam: NORMAL INSPECTION - Eye Exam Eye Exam: Normal appearance - ENT Exam ENT Exam: Mucous Membranes Moist - Respiratory Exam Respiratory Exam: Clear to Ausculation Bilateral - Cardiovascular Exam Cardiovascular Exam: REGULAR RHYTHM, +S1, +S2 - GI/Abdominal Exam GI & Abdominal Exam: Soft, Normal Bowel Sounds - Extremities Exam Extremities Exam: Pedal Edema - Neurological Exam Neurological Exam: Alert, Oriented x3 - Psychiatric Exam Psychiatric exam: Normal Affect, Normal Mood Assessment and Plan (1) CHF (congestive heart failure) Status: Acute (2) CKD (chronic kidney disease) stage 5, GFR less than 15 ml/min Status: Acute (3) Pleural effusion Status: Acute (4) COPD (chronic obstructive pulmonary disease) Status: Acute (5) Diabetes Status: Acute (6) Pneumonia Status: Acute - Assessment and Plan (Free Text) Plan: Continue ABx Bronchodilators On HD Supportive care
[2018-04-02] MEDS: Albuterol-Ipratrop 3 mg / 0.5 (3 ml) UD INH SCH ×6 (00:45→21:35)
[2018-04-02] MEDS: Acetylcysteine 20% Inhal Soln (4ml) INH SCH ×6 (00:45→21:35)
[2018-04-02] MEDS: Meropenem 500 MG in Sodium Chloride 0.9% 100 ML IVPB SCH ×3 (01:09→17:19)
[2018-04-02] MEDS: Levothyroxine 100 MCG TAB PO SCH (05:31)
[2018-04-02] MEDS: (Novolin R) Insulin Human Regular 100 units/ml vial SC SCH ×4 (07:55→21:18)
[2018-04-02 08:49] LABS: BASO # 0.1 K/uL (0.0-0.2); BASO % 0.2 % (0.0-2.0); EOS # 0.3 K/uL (0.0-0.7); EOS % 1.2 % (0.0-4.0); HEMOGLOBIN 8.8 g/dL (11.0-16.0); LYMPH # 2.3 K/uL (1.0-4.3); LYMPH % 8.1 % (20.0-40.0); MEAN CELL VOLUME 91.3 fL (81.0-99.0); MEAN CORPUSCULAR HEMOGLOBIN 30.2 pg (27.0-31.0); MONO # 8.9 K/uL (0.0-0.8); MONO % 31.8 % (0.0-10.0); NEUT # 16.3 K/uL (1.8-7.0); NEUT % 58.7 % (50.0-75.0); PLATELET COUNT 58 K/uL (130-400); RBC 2.91 Mil/uL (3.80-5.20); RED CELL DISTRIBUTION WIDTH 17.2 % (11.5-14.5); WHITE BLOOD COUNT 27.9 K/uL (4.8-10.8)
[2018-04-02] MEDS ORDERED: EPOETIN ALFA 10,000 UNIT/ML ML IV SCH (09:00)
[2018-04-02 09:10] LABS: ALB/GLOB RATIO 0.8 (1.0-2.1); ALBUMIN 3.3 g/dL (3.5-5.0); CALCIUM 8.6 mg/dl (8.6-10.4)
[2018-04-02] MEDS: Fluticasone Nasal 50 mcg/Spray NAS SCH ×2 (09:30→17:20)
[2018-04-02] MEDS: Saccharomyces Boulardi 250 mg Cap PO SCH ×2 (09:30→17:19)
[2018-04-02] MEDS: Enoxaparin 30 mg Syringe SC SCH (09:32)
[2018-04-02] MEDS: Metoprolol Succinate 25 mg XL Tab PO SCH (09:33)
[2018-04-02 09:48] LABS: BANDS 5 % (0-2); BASOPHIL 1 % (0-2); EOSINOPHIL 3 % (0-4); LYMPHOCYTE 7 % (20-40); MONOCYTE 26 % (0-10); MYELOCYTE 1 % (0-0); NEUTROPHIL 57 % (50-75); NUCLEATED RED BLOOD CELL 1 % (0-0); TOTAL CELLS COUNTED 100
[2018-04-02 09:49] LABS: ANISOCYTOSIS SLIGHT; HYPOCHROMIC SLIGHT; LARGE PLATELETS PRESENT; PLATELET ESTIMATE DECREASED (NORMAL); POIKILOCYTOSIS SLIGHT
[2018-04-02] MEDS: Epoetin Alfa 10,000 unit/ml Dialysis IV SCH (11:08)
--- NOTE | 2018-04-02 13:33 | CP.PCM.PN ---
Subjective - Date & Time of Evaluation Date of Evaluation: 04/02/18 Time of Evaluation: 13:30 - Subjective Subjective: Seen in /hd unit Less dyspneic To UF 2500ml- tolerating treatments well Off bipap now Hg stable- 8.8 HTN controlled CXR still with CHF pattern Objective - Vital Signs/Intake and Output Vital Signs (last 24 hours): Temp Pulse Resp BP Pulse Ox 98.1 F 100 H 20 143/61 94 L 04/02/18 09:45 04/02/18 09:45 04/02/18 09:45 04/02/18 12:15 04/02/18 09:45 Intake and Output: 04/02/18 04/02/18 06:59 18:59 Intake Total 700 Balance 700 - Medications Medications: Current Medications Acetaminophen (Tylenol 325mg Tab) 650 mg PO Q6 PRN PRN Reason: Fever >100.4 F Last Admin: 03/29/18 22:47 Dose: 650 mg Acetylcysteine (Acetylcysteine 20%) 4 ml INH Q4H [facility] Last Admin: 04/02/18 13:00 Dose: Not Given Albuterol/Ipratropium (Duoneb 3 Mg/0.5 Mg (3 Ml) Ud) 3 ml INH Q4H [facility] Last Admin: 04/02/18 13:00 Dose: Not Given Amlodipine Besylate (Norvasc) 10 mg PO DAILY [facility] Last Admin: 04/02/18 09:32 Dose: Not Given Benzonatate (Tessalon Perles) 100 mg PO TID [facility] Last Admin: 04/02/18 09:32 Dose: Not Given Calcium Acetate (Phoslo) 667 mg PO TID [facility] Last Admin: 04/02/18 09:32 Dose: Not Given Dextrose (Dextrose 50% Inj) 0 ml IV STAT PRN; Protocol PRN Reason: Hypoglycemia Protocol Dextrose (Glutose 15) 0 gm PO ONCE PRN; Protocol PRN Reason: Hypoglycemia Protocol Docusate Sodium (Colace) 100 mg PO BID [facility] Last Admin: 04/02/18 09:30 Dose: Not Given Enoxaparin Sodium (Lovenox) 30 mg SC DAILY [facility] Last Admin: 04/02/18 09:32 Dose: Not Given Epoetin Brandon (Procrit) 10,000 unit IV MWF [facility] Last Admin: 11/19/18 11:08 Dose: 10,000 unit Fenofibrate (Tricor) 48 mg PO DAILY [facility] Last Admin: 04/02/18 09:33 Dose: Not Given Fluticasone Propionate (Flonase) 2 spr SANJEEV BID [facility] Last Admin: 04/02/18 09:30 Dose: Not Given Folic Acid (Folic Acid) 1 mg PO DAILY [facility] Last Admin: 04/02/18 09:30 Dose: Not Given Furosemide (Lasix) 20 mg IVP Q12H [facility] Last Admin: 04/02/18 01:08 Dose: 20 mg Glucagon (Glucagen Diagnostic Kit) 0 mg IM STAT PRN; Protocol PRN Reason: Hypoglycemia Protocol Heparin Sodium (Porcine) (Heparin) 3,700 units IVP MWF [facility] Last Admin: 04/02/18 12:36 Dose: 3,700 units Meropenem 500 mg/ Sodium (Chloride) 100 mls @ 100 mls/hr IVPB Q8H [facility]; Protocol Last Admin: 04/02/18 08:30 Dose: 100 mls/hr Insulin Human Regular (Novolin R) 0 unit SC ACHS [facility]; Protocol Last Admin: 04/02/18 07:55 Dose: Not Given Levothyroxine Sodium (Synthroid) 100 mcg PO DAILY@0630 [facility] Last Admin: 04/02/18 05:31 Dose: 100 mcg Metoprolol Succinate (Toprol Xl) 25 mg PO DAILY [facility] Last Admin: 04/02/18 09:33 Dose: Not Given Phenylephrine HCl (Steve-Synephrine 0.25% Nasal [place]) 0 ml NS Q12H PRN PRN Reason: Nasal congestion Prasugrel (Effient) 10 mg PO DAILY [facility] Last Admin: 04/02/18 09:30 Dose: Not Given Rosuvastatin Calcium (Crestor) 10 mg PO HS [facility] Last Admin: 04/01/18 21:30 Dose: 10 mg Saccharomyces Boulardii (Florastor) 250 mg PO BID [facility] Last Admin: 04/02/18 09:30 Dose: Not Given Sitagliptin Phosphate (Januvia) 25 mg PO DAILY [facility] Last Admin: 04/02/18 09:31 Dose: Not Given - Labs Labs: 04/02/18 08:41 04/02/18 08:41 PT 14.5 SECONDS (9.7-12.2) H 03/29/18 11:10 INR 1.3 03/29/18 11:10 APTT 36 SECONDS (21-34) H 03/29/18 11:10 - Constitutional Appears: No Acute Distress, Chronically Ill - Head Exam Head Exam: ATRAUMATIC, NORMAL INSPECTION - Eye Exam Eye Exam: EOMI, Normal appearance - Neck Exam Neck Exam: Normal Inspection. absent: Tenderness - Respiratory Exam Respiratory Exam: Rhonchi, NORMAL BREATHING PATTERN - Cardiovascular Exam Cardiovascular Exam: REGULAR RHYTHM, +S1 - GI/Abdominal Exam GI & Abdominal Exam: Soft. absent: Tenderness - Extremities Exam Extremities Exam: Normal Inspection. absent: Tenderness - Neurological Exam Neurological Exam: Awake, CN II-XII Intact - Skin Skin Exam: Dry, Warm Assessment and Plan (1) CKD (chronic kidney disease) stage 5, GFR less than 15 ml/min Status: Acute (2) CHF (congestive heart failure) Status: Acute (3) CMML (chronic myelomonocytic leukemia) Status: Acute (4) Chronic anemia Status: Acute (5) ESRD (end stage renal disease) Status: Acute - Assessment and Plan (Free Text) Plan: Increase UF goal at HD Recheck labs Same meds Needs AV access Await HD placement
--- NOTE | 2018-04-02 14:53 | CP.PCM.PN ---
<Ander,[place] - Last Filed: 04/02/18 15:21> Subjective - Date & Time of Evaluation Date of Evaluation: 04/02/18 Time of Evaluation: 11:00 - Subjective Subjective: PGY-1 Medicine Progress Note for Dr. Hammer's service Patient seen and examined at bedside. Patient reports improved breathing. Tabitha kirkland states she still has cough with unproductive sputum. Scheduled to have HD today. Patient denies fevers, chills, chest pain, sob, n/v, constipation or diarrhea, dysuria, or weakness. Objective - Vital Signs/Intake and Output Vital Signs (last 24 hours): Temp Pulse Resp BP Pulse Ox 98.7 F 99 H 19 140/62 97 04/02/18 13:45 04/02/18 13:45 04/02/18 13:45 04/02/18 13:45 04/02/18 13:45 Intake and Output: 04/02/18 04/02/18 06:59 18:59 Intake Total 700 Balance 700 - Medications Medications: Current Medications Acetaminophen (Tylenol 325mg Tab) 650 mg PO Q6 PRN PRN Reason: Fever >100.4 F Last Admin: 03/29/18 22:47 Dose: 650 mg Acetylcysteine (Acetylcysteine 20%) 4 ml INH Q4H [facility] Last Admin: 04/02/18 13:00 Dose: Not Given Albuterol/Ipratropium (Duoneb 3 Mg/0.5 Mg (3 Ml) Ud) 3 ml INH Q4H [facility] Last Admin: 04/02/18 13:00 Dose: Not Given Amlodipine Besylate (Norvasc) 10 mg PO DAILY [facility] Last Admin: 04/02/18 09:32 Dose: Not Given Benzonatate (Tessalon Perles) 100 mg PO TID [facility] Last Admin: 04/02/18 13:53 Dose: 100 mg Calcium Acetate (Phoslo) 667 mg PO TID [facility] Last Admin: 04/02/18 13:53 Dose: 667 mg Dextrose (Dextrose 50% Inj) 0 ml IV STAT PRN; Protocol PRN Reason: Hypoglycemia Protocol Dextrose (Glutose 15) 0 gm PO ONCE PRN; Protocol PRN Reason: Hypoglycemia Protocol Docusate Sodium (Colace) 100 mg PO BID [facility] Last Admin: 04/02/18 09:30 Dose: Not Given Enoxaparin Sodium (Lovenox) 30 mg SC DAILY [facility] Last Admin: 04/02/18 09:32 Dose: Not Given Epoetin Brandon (Procrit) 10,000 unit IV [facility] Last Admin: 04/02/18 11:08 Dose: 10,000 unit Fenofibrate (Tricor) 48 mg PO DAILY [facility] Last Admin: 04/02/18 09:33 Dose: Not Given Fluticasone Propionate (Flonase) 2 spr SANJEEV BID [facility] Last Admin: 04/02/18 09:30 Dose: Not Given Folic Acid (Folic Acid) 1 mg PO DAILY [facility] Last Admin: 04/02/18 09:30 Dose: Not Given Furosemide (Lasix) 20 mg IVP Q12H [facility] Last Admin: 04/02/18 12:30 Dose: Not Given Glucagon (Glucagen Diagnostic Kit) 0 mg IM STAT PRN; Protocol PRN Reason: Hypoglycemia Protocol Heparin Sodium (Porcine) (Heparin) 3,700 units IVP [facility] Last Admin: 04/02/18 12:36 Dose: 3,700 units Meropenem 500 mg/ Sodium (Chloride) 100 mls @ 100 mls/hr IVPB Q8H [facility]; Protocol Last Admin: 04/02/18 08:30 Dose: 100 mls/hr Insulin Human Regular (Novolin R) 0 unit SC [facility]; Protocol Last Admin: 04/02/18 13:50 Dose: Not Given Levothyroxine Sodium (Synthroid) 100 mcg PO DAILY@0630 [facility] Last Admin: 04/02/18 05:31 Dose: 100 mcg Metoprolol Succinate (Toprol Xl) 25 mg PO DAILY [facility] Last Admin: 04/02/18 09:33 Dose: Not Given Phenylephrine HCl (Steve-Synephrine 0.25% Nasal [place]) 0 ml NS Q12H PRN PRN Reason: Nasal congestion Prasugrel (Effient) 10 mg PO DAILY [facility] Last Admin: 04/02/18 09:30 Dose: Not Given Rosuvastatin Calcium (Crestor) 10 mg PO [facility] Last Admin: 04/01/18 21:30 Dose: 10 mg Saccharomyces Boulardii (Florastor) 250 mg PO BID [facility] Last Admin: 04/02/18 09:30 Dose: Not Given Sitagliptin Phosphate (Januvia) 25 mg PO DAILY [facility] Last Admin: 04/02/18 09:31 Dose: Not Given - Labs Labs: 04/02/18 08:41 04/02/18 08:41 PT 14.5 SECONDS (9.7-12.2) H 03/29/18 11:10 INR 1.3 03/29/18 11:10 APTT 36 SECONDS (21-34) H 03/29/18 11:10 - Constitutional Appears: Non-toxic, No Acute Distress - Head Exam Head Exam: NORMAL INSPECTION, NORMOCEPHALIC - Eye Exam Eye Exam: EOMI, Normal appearance. absent: Nystagmus, Scleral icterus - ENT Exam ENT Exam: Mucous Membranes Moist - Respiratory Exam Respiratory Exam: Decreased Breath Sounds, NORMAL BREATHING PATTERN. absent: Accessory Muscle Use, Rales, Rhonchi, Wheezes, Respiratory Distress - Cardiovascular Exam Cardiovascular Exam: REGULAR RHYTHM, +S1, +S2. absent: Tachycardia, Murmur - GI/Abdominal Exam GI & Abdominal Exam: Soft, Normal Bowel Sounds. absent: Distended, Firm, Guarding, Rigid, Tenderness - Extremities Exam Extremities Exam: Normal Inspection. absent: Calf Tenderness, Pedal Edema - Neurological Exam Neurological Exam: Alert, Awake, Oriented x3 - Psychiatric Exam Psychiatric exam: Normal Affect, Normal Mood - Skin Skin Exam: Intact, Normal Color - Additional Findings Additional findings: portacath in right shoulder region Assessment and Plan - Assessment and Plan (Free Text) Assessment: 82 year old female with a PMHx of COPD, PVD CHF (w/ preserved EF), HTN, Myelodysplastic Syndrome, HLD, CKD, Hypothyrodism, and Pneumonia admitted for evaluation and treatment of hospital acquired pneumonia. CT scan on admission showed small b/l pleural effusions. s/p L thoracentesis (03/26) Plan: HCAP w/ Pleural Effusion 11-10 Cxray- large effusion and atelectasis. progression of infiltrate changes right mid to lower lung field 11-[address]- moderately large left-sided effusion with left lower lobe atelectasis. Small right sided effusion and minor right basilar atelectasis Increasing pulmonary edema warranted Pulm Consult, Dr. Hernandez, and Infectious Disease Consult, Dr. Rodriguez. IR Consulted- Dr. Longoria- thoracentesis- 500cc fluid removed with fluid studies BiPap at night PNA studies negative; Blood and Sputum cultures negative MucoMyst q4h [facility] Duonebs q4h [facility] Tessalon Perles 100mg po tid Meropenem and Vancomycin Tylenol 650mg prn Lasix 20mg IV bid Diastolic CHF 03-04-18 Echo:Grade II Pseudonormal filling dynamics, mild Pulml HTN, 60-65% EF EKG : NSR @ 92 BPM, No acute ST/T wave changes. BNP on Admission - 8470. CXR on Admission shows Pulm Congestion Lasix 20mg IV bid Metoprolol 25mg po daily Fluid/Salt restriction Monitor Is/Os ESRD CKD (Stage 5) with Dialysis through catheter Vascular surgery- Dr. Lindquist- right chest permacath placed on 03/29, Due to have vein mapping for AV fisutal as per surgery team 2 units of pRBCs have been transfused Patient hemodynamically stable Phoslo 667 mg po tid Proc[facility] 92031 units IV MWF HTN Amlodipine 10mg po daily Lasix 20mg IVP bid Lopressor 25mg po dialy CAD Rosuvastatin 10mg po HS Tricor 48mg po daily chichi DM2 ISS Januvia 25mg po daily [facility] Hypothyroidism Synthroid 100mcg po daily [facility] PPX DVT ppx: Lovenox 30mg sc daily [facility] GI ppx: Florastor 250mg po bid [facility] <Liz Hammer - Last Filed: 04/06/18 18:08> Objective - Vital Signs/Intake and Output Vital Signs (last 24 hours): Temp Pulse Resp BP Pulse Ox 98.2 F 81 20 153/71 H 100 04/06/18 15:00 04/06/18 15:00 04/06/18 15:00 04/06/18 15:00 04/06/18 15:00 - Medications Medications: Current Medications Acetaminophen (Tylenol 325mg Tab) 650 mg PO Q6 PRN PRN Reason: Fever >100.4 F Last Admin: 04/06/18 05:56 Dose: 650 mg Acetylcysteine (Acetylcysteine 20%) 4 ml INH Q4H [facility] Last Admin: 04/06/18 15:38 Dose: 4 ml Albuterol/Ipratropium (Duoneb 3 Mg/0.5 Mg (3 Ml) Ud) 3 ml INH RQ4 [facility] Last Admin: 04/06/18 15:38 Dose: 3 ml Amlodipine Besylate (Norvasc) 10 mg PO DAILY [facility] Last Admin: 04/06/18 10:13 Dose: 10 mg Artificial Tears (Artificial Tears Refresh Celluvisc) 0 ml OU TID [facility] Last Admin: 04/06/18 17:00 Dose: Not Given Benzonatate (Tessalon Perles) 100 mg PO TID [facility] Last Admin: 04/06/18 16:59 Dose: 100 mg Calcium Acetate (Phoslo) 667 mg PO TID [facility] Last Admin: 04/06/18 16:59 Dose: 667 mg Dextrose (Dextrose 50% Inj) 0 ml IV STAT PRN; Protocol PRN Reason: Hypoglycemia Protocol Dextrose (Glutose 15) 0 gm PO ONCE PRN; Protocol PRN Reason: Hypoglycemia Protocol Docusate Sodium (Colace) 100 mg PO BID [facility] Last Admin: 04/06/18 16:59 Dose: 100 mg Enoxaparin Sodium (Lovenox) 30 mg SC DAILY [facility] Last Admin: 04/06/18 10:12 Dose: 30 mg Epoetin Brandon (Procrit) 10,000 unit IV [facility] Last Admin: 04/04/18 10:41 Dose: 10,000 unit Fluticasone Propionate (Flonase) 2 spr SANJEEV BID [facility] Last Admin: 04/06/18 17:00 Dose: Not Given Folic Acid (Folic Acid) 1 mg PO DAILY [facility] Last Admin: 04/06/18 11:00 Dose: Not Given Glucagon (Glucagen Diagnostic Kit) 0 mg IM STAT PRN; Protocol PRN Reason: Hypoglycemia Protocol Heparin Sodium (Porcine) (Heparin) 3,700 units IVP [facility] Last Admin: 04/05/18 12:20 Dose: 3,700 units Hydralazine HCl (Apresoline) 25 mg PO BID [facility] Last Admin: 04/06/18 16:59 Dose: 25 mg Meropenem 500 mg/ Sodium (Chloride) 100 mls @ 100 mls/hr IVPB Q8H [facility]; Protocol Last Admin: 04/06/18 16:59 Dose: 100 mls/hr Insulin Human Regular ([facility]olin R) [facility]; Protocol Last Admin: 04/06/18 12:54 Dose: 2 units Levothyroxine Sodium (Synthroid) 100 mcg PO DAILY@0630 [facility] Last Admin: 04/06/18 05:57 Dose: 100 mcg Metoprolol Succinate (Toprol Xl) 50 mg PO DAILY [facility] Last Admin: 04/06/18 10:13 Dose: 50 mg Phenylephrine HCl (Steve-Synephrine 0.25% Nasal [place]) 0 ml NS Q12H PRN PRN Reason: Nasal congestion Prasugrel (Effient) 10 mg PO DAILY [facility] Last Admin: 04/06/18 10:13 Dose: 10 mg Rosuvastatin Calcium (Crestor) 10 mg PO HS [facility] Last Admin: 04/05/18 21:35 Dose: 10 mg Saccharomyces Boulardii (Florastor) 250 mg PO BID [facility] Last Admin: 04/06/18 16:59 Dose: 250 mg Sitagliptin Phosphate (Januvia) 25 mg PO DAILY [facility] Last Admin: 04/06/18 10:13 Dose: 25 mg - Labs Labs: 04/06/18 07:15 04/06/18 07:15 PT 14.5 SECONDS (9.7-12.2) H 03/29/18 11:10 INR 1.3 03/29/18 11:10 APTT 36 SECONDS (21-34) H 03/29/18 11:10 Attending/Attestation - Attestation I have personally seen and examined this patient.: Yes I have fully participated in the care of the patient.: Yes I have reviewed all pertinent clinical information, including history, physical exam and plan: Yes Notes (Text): Patient is happy that her breathing is better after started on dilaysis continue dialysis as per nephrology on antibiotics monitor cbc follow vascular surgery I agree with the resident's documentation
--- NOTE | 2018-04-02 18:47 | CP.PCM.PN ---
Subjective - Date & Time of Evaluation Date of Evaluation: 04/02/18 Time of Evaluation: 18:47 - Subjective Subjective: Patient is seen and examined No events overnight Objective - Vital Signs/Intake and Output Vital Signs (last 24 hours): Temp Pulse Resp BP Pulse Ox 99.0 F 96 H 18 147/65 96 04/02/18 15:00 04/02/18 15:54 04/02/18 15:00 04/02/18 15:00 04/02/18 15:00 Intake and Output: 04/02/18 04/02/18 06:59 18:59 Intake Total 700 400 Balance 700 400 - Medications Medications: Current Medications Acetaminophen (Tylenol 325mg Tab) 650 mg PO Q6 PRN PRN Reason: Fever >100.4 F Last Admin: 03/29/18 22:47 Dose: 650 mg Acetylcysteine (Acetylcysteine 20%) 4 ml INH Q4H [facility] Last Admin: 04/02/18 16:10 Dose: 4 ml Albuterol/Ipratropium (Duoneb 3 Mg/0.5 Mg (3 Ml) Ud) 3 ml INH Q4H [facility] Last Admin: 04/02/18 16:10 Dose: 3 ml Amlodipine Besylate (Norvasc) 10 mg PO DAILY [facility] Last Admin: 04/02/18 09:32 Dose: Not Given Benzonatate (Tessalon Perles) 100 mg PO TID [facility] Last Admin: 04/02/18 17:19 Dose: 100 mg Calcium Acetate (Phoslo) 667 mg PO TID [facility] Last Admin: 04/02/18 17:19 Dose: 667 mg Dextrose (Dextrose 50% Inj) 0 ml IV STAT PRN; Protocol PRN Reason: Hypoglycemia Protocol Dextrose (Glutose 15) 0 gm PO ONCE PRN; Protocol PRN Reason: Hypoglycemia Protocol Docusate Sodium (Colace) 100 mg PO BID [facility] Last Admin: 04/02/18 17:19 Dose: 100 mg Enoxaparin Sodium (Lovenox) 30 mg SC DAILY [facility] Last Admin: 04/02/18 09:32 Dose: Not Given Epoetin Brandon (Procrit) 10,000 unit IV MWF [facility] Last Admin: 04/02/18 11:08 Dose: 10,000 unit Fluticasone Propionate (Flonase) 2 spr SANJEEV BID [facility] Last Admin: 04/02/18 17:20 Dose: Not Given Folic Acid (Folic Acid) 1 mg PO DAILY [facility] Last Admin: 04/02/18 09:30 Dose: Not Given Furosemide (Lasix) 20 mg IVP Q12H [facility] Last Admin: 04/02/18 12:30 Dose: Not Given Glucagon (Glucagen Diagnostic Kit) 0 mg IM STAT PRN; Protocol PRN Reason: Hypoglycemia Protocol Heparin Sodium (Porcine) (Heparin) 3,700 units IVP MWF [facility] Last Admin: 04/02/18 12:36 Dose: 3,700 units Meropenem 500 mg/ Sodium (Chloride) 100 mls @ 100 mls/hr IVPB Q8H [facility]; Protocol Last Admin: 04/02/18 17:19 Dose: 100 mls/hr Insulin Human Regular (Novolin R) 0 unit SC ACHS [facility]; Protocol Last Admin: 04/02/18 17:20 Dose: 1 units Levothyroxine Sodium (Synthroid) 100 mcg PO DAILY@0630 [facility] Last Admin: 04/02/18 05:31 Dose: 100 mcg Metoprolol Succinate (Toprol Xl) 25 mg PO DAILY [facility] Last Admin: 04/02/18 09:33 Dose: Not Given Phenylephrine HCl (Steve-Synephrine 0.25% Nasal [place]) 0 ml NS Q12H PRN PRN Reason: Nasal congestion Prasugrel (Effient) 10 mg PO DAILY [facility] Last Admin: 04/02/18 09:30 Dose: Not Given Rosuvastatin Calcium (Crestor) 10 mg PO HS [facility] Last Admin: 04/01/18 21:30 Dose: 10 mg Saccharomyces Boulardii (Florastor) 250 mg PO BID [facility] Last Admin: 04/02/18 17:19 Dose: 250 mg Sitagliptin Phosphate (Januvia) 25 mg PO DAILY [facility] Last Admin: 04/02/18 09:31 Dose: Not Given - Labs Labs: 04/02/18 08:41 04/02/18 08:41 PT 14.5 SECONDS (9.7-12.2) H 03/29/18 11:10 INR 1.3 03/29/18 11:10 APTT 36 SECONDS (21-34) H 03/29/18 11:10 - Head Exam Head Exam: NORMAL INSPECTION - Eye Exam Eye Exam: Normal appearance - ENT Exam ENT Exam: Mucous Membranes Moist - Respiratory Exam Respiratory Exam: Clear to Ausculation Bilateral - Cardiovascular Exam Cardiovascular Exam: REGULAR RHYTHM - GI/Abdominal Exam GI & Abdominal Exam: Soft, Normal Bowel Sounds - Extremities Exam Extremities Exam: Normal Inspection Assessment and Plan (1) CHF (congestive heart failure) Status: Acute (2) CKD (chronic kidney disease) stage 5, GFR less than 15 ml/min Status: Acute (3) Pleural effusion Status: Acute (4) COPD (chronic obstructive pulmonary disease) Status: Acute (5) Diabetes Status: Acute (6) Pneumonia Status: Acute - Assessment and Plan (Free Text) Plan: Bronchodilators Oxygen supplementation BiPAP as needed Hemodialysis as per renal DVT/GI prophylaxis
[2018-04-03] MEDS: Acetylcysteine 20% Inhal Soln (4ml) INH SCH ×6 (00:38→21:28)
[2018-04-03] MEDS: Albuterol-Ipratrop 3 mg / 0.5 (3 ml) UD INH SCH ×6 (00:39→21:28)
[2018-04-03] MEDS: Meropenem 500 MG in Sodium Chloride 0.9% 100 ML IVPB SCH ×3 (00:42→17:49)
[2018-04-03] MEDS: Levothyroxine 100 MCG TAB PO SCH (05:56)
[2018-04-03 06:26] LABS: HEMOGLOBIN 9.3 g/dL (11.0-16.0); MEAN CELL VOLUME 91.7 fL (81.0-99.0); MEAN CORPUSCULAR HEMOGLOBIN 30.6 pg (27.0-31.0); MEAN CORPUSCULAR HGB CONC 33.3 g/dL (33.0-37.0); MEAN PLATELET VOLUME 9.9 fL (7.2-11.7); RBC 3.05 Mil/uL (3.80-5.20); RED CELL DISTRIBUTION WIDTH 17.7 % (11.5-14.5); WHITE BLOOD COUNT 25.8 K/uL (4.8-10.8)
[2018-04-03 06:49] LABS: ALB/GLOB RATIO 0.7 (1.0-2.1); ALBUMIN 3.1 g/dL (3.5-5.0); CALCIUM 8.6 mg/dl (8.6-10.4)
[2018-04-03] MEDS: (Novolin R) Insulin Human Regular 100 units/ml vial SC SCH ×4 (08:14→21:54)
[2018-04-03] MEDS: Fluticasone Nasal 50 mcg/Spray NAS SCH ×2 (09:11→18:55)
[2018-04-03] MEDS: Enoxaparin 30 mg Syringe SC SCH (09:11)
[2018-04-03] MEDS: Saccharomyces Boulardi 250 mg Cap PO SCH ×2 (09:11→17:48)
[2018-04-03] MEDS: Metoprolol Succinate 25 mg XL Tab PO SCH (09:11)
--- NOTE | 2018-04-03 10:10 | CP.PCM.PN ---
Subjective - Date & Time of Evaluation Date of Evaluation: 04/03/18 Time of Evaluation: 10:05 - Subjective Subjective: Vascular Surgery Progress Note for Dr. Plummer This 82F was seen and examined this AM at bedside. She had no new complaints at time. She denies any chest pain or any new or concerning symptoms. Objective - Vital Signs/Intake and Output Vital Signs (last 24 hours): Temp Pulse Resp BP Pulse Ox 98.2 F 98 H 18 128/56 L 95 04/03/18 07:53 04/03/18 08:24 04/03/18 07:53 04/03/18 07:53 04/03/18 07:53 Intake and Output: 04/03/18 04/03/18 06:59 18:59 Intake Total 500 Balance 500 - Medications Medications: Current Medications Acetaminophen (Tylenol 325mg Tab) 650 mg PO Q6 PRN PRN Reason: Fever >100.4 F Last Admin: 03/29/18 22:47 Dose: 650 mg Acetylcysteine (Acetylcysteine 20%) 4 ml INH Q4H [facility] Last Admin: 04/03/18 07:29 Dose: 4 ml Albuterol/Ipratropium (Duoneb 3 Mg/0.5 Mg (3 Ml) Ud) 3 ml INH Q4H [facility] Last Admin: 04/03/18 07:29 Dose: 3 ml Amlodipine Besylate (Norvasc) 10 mg PO DAILY [facility] Last Admin: 04/03/18 09:11 Dose: 10 mg Benzonatate (Tessalon Perles) 100 mg PO TID [facility] Last Admin: 04/03/18 09:11 Dose: 100 mg Calcium Acetate (Phoslo) 667 mg PO TID [facility] Last Admin: 04/03/18 09:11 Dose: 667 mg Dextrose (Dextrose 50% Inj) 0 ml IV STAT PRN; Protocol PRN Reason: Hypoglycemia Protocol Dextrose (Glutose 15) 0 gm PO ONCE PRN; Protocol PRN Reason: Hypoglycemia Protocol Docusate Sodium (Colace) 100 mg PO BID [facility] Last Admin: 04/03/18 09:11 Dose: 100 mg Enoxaparin Sodium (Lovenox) 30 mg SC DAILY [facility] Last Admin: 04/03/18 09:11 Dose: 30 mg Epoetin Brandon (Procrit) 10,000 unit IV MWF [facility] Last Admin: 04/02/18 11:08 Dose: 10,000 unit Fluticasone Propionate (Flonase) 2 spr SANJEEV BID [facility] Last Admin: 04/03/18 09:11 Dose: 2 sprays Folic Acid (Folic Acid) 1 mg PO DAILY [facility] Last Admin: 04/03/18 09:11 Dose: 1 mg Furosemide (Lasix) 20 mg IVP Q12H [facility] Last Admin: 04/03/18 00:04 Dose: 20 mg Glucagon (Glucagen Diagnostic Kit) 0 mg IM STAT PRN; Protocol PRN Reason: Hypoglycemia Protocol Heparin Sodium (Porcine) (Heparin) 3,700 units IVP MWF [facility] Last Admin: 04/02/18 12:36 Dose: 3,700 units Meropenem 500 mg/ Sodium (Chloride) 100 mls @ 100 mls/hr IVPB Q8H [facility]; Protocol Last Admin: 04/03/18 09:12 Dose: 100 mls/hr Insulin Human Regular (Novolin R) 0 unit SC ACHS [facility]; Protocol Last Admin: 04/03/18 08:14 Dose: Not Given Levothyroxine Sodium (Synthroid) 100 mcg PO DAILY@0630 [facility] Last Admin: 04/03/18 05:56 Dose: 100 mcg Metoprolol Succinate (Toprol Xl) 25 mg PO DAILY [facility] Last Admin: 04/03/18 09:11 Dose: 25 mg Phenylephrine HCl (Steve-Synephrine 0.25% Nasal [place]) 0 ml NS Q12H PRN PRN Reason: Nasal congestion Prasugrel (Effient) 10 mg PO DAILY [facility] Last Admin: 04/03/18 09:11 Dose: 10 mg Rosuvastatin Calcium (Crestor) 10 mg PO HS [facility] Last Admin: 04/02/18 21:05 Dose: 10 mg Saccharomyces Boulardii (Florastor) 250 mg PO BID [facility] Last Admin: 04/03/18 09:11 Dose: 250 mg Sitagliptin Phosphate (Januvia) 25 mg PO DAILY [facility] Last Admin: 04/03/18 09:11 Dose: 25 mg - Labs Labs: 04/03/18 06:19 04/03/18 06:19 PT 14.5 SECONDS (9.7-12.2) H 03/29/18 11:10 INR 1.3 03/29/18 11:10 APTT 36 SECONDS (21-34) H 03/29/18 11:10 - Constitutional Appears: Non-toxic, No Acute Distress - Head Exam Head Exam: ATRAUMATIC, NORMOCEPHALIC - Eye Exam Eye Exam: EOMI - ENT Exam ENT Exam: Mucous Membranes Moist - Cardiovascular Exam Cardiovascular Exam: +S1, +S2 - GI/Abdominal Exam GI & Abdominal Exam: Soft. absent: Guarding, Rigid, Tenderness - Neurological Exam Neurological Exam: Alert, Awake - Psychiatric Exam Psychiatric exam: Normal Affect, Normal Mood - Skin Skin Exam: Dry, Intact Assessment and Plan - Assessment and Plan (Free Text) Assessment: 82F with ESRD Vein mapping ordered will follow up studies Patient's platelets are 47 this AM Will delay OR until after thrombocytopenia workup D/W Dr. Elian Alfaro PGY3
--- NOTE | 2018-04-03 10:19 | CP.PCM.PN ---
Subjective - Date & Time of Evaluation Date of Evaluation: 04/03/18 Time of Evaluation: 10:15 - Subjective Subjective: seen and examined c/o cough w/ clear sputum appetite improved breathing improved tolerated hd well yesterday Objective - Vital Signs/Intake and Output Vital Signs (last 24 hours): Temp Pulse Resp BP Pulse Ox 98.2 F 98 H 18 128/56 L 95 04/03/18 07:53 04/03/18 08:24 04/03/18 07:53 04/03/18 07:53 04/03/18 07:53 Intake and Output: 04/03/18 04/03/18 06:59 18:59 Intake Total 500 Balance 500 - Medications Medications: Current Medications Acetaminophen (Tylenol 325mg Tab) 650 mg PO Q6 PRN PRN Reason: Fever >100.4 F Last Admin: 03/29/18 22:47 Dose: 650 mg Acetylcysteine (Acetylcysteine 20%) 4 ml INH Q4H [facility] Last Admin: 04/03/18 07:29 Dose: 4 ml Albuterol/Ipratropium (Duoneb 3 Mg/0.5 Mg (3 Ml) Ud) 3 ml INH Q4H [facility] Last Admin: 04/03/18 07:29 Dose: 3 ml Amlodipine Besylate (Norvasc) 10 mg PO DAILY [facility] Last Admin: 04/03/18 09:11 Dose: 10 mg Benzonatate (Tessalon Perles) 100 mg PO TID [facility] Last Admin: 04/03/18 09:11 Dose: 100 mg Calcium Acetate (Phoslo) 667 mg PO TID [facility] Last Admin: 04/03/18 09:11 Dose: 667 mg Dextrose (Dextrose 50% Inj) 0 ml IV STAT PRN; Protocol PRN Reason: Hypoglycemia Protocol Dextrose (Glutose 15) 0 gm PO ONCE PRN; Protocol PRN Reason: Hypoglycemia Protocol Docusate Sodium (Colace) 100 mg PO BID [facility] Last Admin: 04/03/18 09:11 Dose: 100 mg Enoxaparin Sodium (Lovenox) 30 mg SC DAILY [facility] Last Admin: 04/03/18 09:11 Dose: 30 mg Epoetin Brandon (Procrit) 10,000 unit IV MWF [facility] Last Admin: 04/02/18 11:08 Dose: 10,000 unit Fluticasone Propionate (Flonase) 2 spr SANJEEV BID [facility] Last Admin: 04/03/18 09:11 Dose: 2 sprays Folic Acid (Folic Acid) 1 mg PO DAILY [facility] Last Admin: 04/03/18 09:11 Dose: 1 mg Furosemide (Lasix) 20 mg IVP Q12H [facility] Last Admin: 04/03/18 00:04 Dose: 20 mg Glucagon (Glucagen Diagnostic Kit) 0 mg IM STAT PRN; Protocol PRN Reason: Hypoglycemia Protocol Heparin Sodium (Porcine) (Heparin) 3,700 units IVP MWF [facility] Last Admin: 04/02/18 12:36 Dose: 3,700 units Meropenem 500 mg/ Sodium (Chloride) 100 mls @ 100 mls/hr IVPB Q8H [facility]; Protocol Last Admin: 04/03/18 09:12 Dose: 100 mls/hr Insulin Human Regular (Novolin R) 0 unit SC ACHS [facility]; Protocol Last Admin: 04/03/18 08:14 Dose: Not Given Levothyroxine Sodium (Synthroid) 100 mcg PO DAILY@0630 [facility] Last Admin: 04/03/18 05:56 Dose: 100 mcg Metoprolol Succinate (Toprol Xl) 25 mg PO DAILY [facility] Last Admin: 04/03/18 09:11 Dose: 25 mg Phenylephrine HCl (Steve-Synephrine 0.25% Nasal [place]) 0 ml NS Q12H PRN PRN Reason: Nasal congestion Prasugrel (Effient) 10 mg PO DAILY [facility] Last Admin: 04/03/18 09:11 Dose: 10 mg Rosuvastatin Calcium (Crestor) 10 mg PO HS [facility] Last Admin: 04/02/18 21:05 Dose: 10 mg Saccharomyces Boulardii (Florastor) 250 mg PO BID [facility] Last Admin: 04/03/18 09:11 Dose: 250 mg Sitagliptin Phosphate (Januvia) 25 mg PO DAILY [facility] Last Admin: 04/03/18 09:11 Dose: 25 mg - Labs Labs: 04/03/18 06:19 04/03/18 06:19 PT 14.5 SECONDS (9.7-12.2) H 03/29/18 11:10 INR 1.3 03/29/18 11:10 APTT 36 SECONDS (21-34) H 03/29/18 11:10 - Constitutional Appears: No Acute Distress, Chronically Ill - Head Exam Head Exam: NORMAL INSPECTION, NORMOCEPHALIC - Eye Exam Eye Exam: Normal appearance, PERRL - ENT Exam ENT Exam: Mucous Membranes Moist, Normal Exam - Neck Exam Neck Exam: Full ROM, Normal Inspection - Respiratory Exam Respiratory Exam: Decreased Breath Sounds, NORMAL BREATHING PATTERN - Cardiovascular Exam Cardiovascular Exam: REGULAR RHYTHM - GI/Abdominal Exam GI & Abdominal Exam: Distended, Soft - Extremities Exam Extremities Exam: Full ROM, Normal Inspection - Neurological Exam Neurological Exam: Alert, Awake, Oriented x3 - Psychiatric Exam Psychiatric exam: Normal Affect, Normal Mood - Skin Skin Exam: Dry, Intact Assessment and Plan (1) CHF (congestive heart failure) Status: Acute (2) Leukocytosis Status: Acute (3) Pleural effusion Status: Acute (4) CKD (chronic kidney disease) stage 4, GFR 15-29 ml/min Status: Acute (5) CMML (chronic myelomonocytic leukemia) Status: Acute - Assessment and Plan (Free Text) Assessment: maintain hd avf outpt placement ?radha / hx of CLL - will need heme input
[2018-04-03] MEDS ORDERED: POLYETHYLENE GLYCOL 3350 17 GM/Dose PACKET PO ONE ×2 (11:22→14:00)
--- NOTE | 2018-04-03 11:24 | CP.PCM.PN ---
<Ander,[place] - Last Filed: 04/04/18 08:59> Subjective - Date & Time of Evaluation Date of Evaluation: 04/03/18 Time of Evaluation: 11:21 - Subjective Subjective: PGY-1 Medicine Progress Note for Dr. Hammer's service Patient seen and examined at bedside. Patient reports improved breathing at rest and with movement. Patient reports ongoing cough with whitish sputum. Patient admits to difficult bowel and minimal bowel evacuations. Patient denies fevers, chills, chest pain, sob, n/v, diarrhea, and dysuria. Objective - Vital Signs/Intake and Output Vital Signs (last 24 hours): Temp Pulse Resp BP Pulse Ox 98.2 F 98 H 18 128/56 L 95 04/03/18 07:53 04/03/18 08:24 04/03/18 07:53 04/03/18 07:53 04/03/18 07:53 Intake and Output: 04/03/18 04/03/18 06:59 18:59 Intake Total 500 Balance 500 - Medications Medications: Current Medications Acetaminophen (Tylenol 325mg Tab) 650 mg PO Q6 PRN PRN Reason: Fever >100.4 F Last Admin: 03/29/18 22:47 Dose: 650 mg Acetylcysteine (Acetylcysteine 20%) 4 ml INH Q4H [facility] Last Admin: 04/03/18 07:29 Dose: 4 ml Albuterol/Ipratropium (Duoneb 3 Mg/0.5 Mg (3 Ml) Ud) 3 ml INH Q4H [facility] Last Admin: 04/03/18 07:29 Dose: 3 ml Amlodipine Besylate (Norvasc) 10 mg PO DAILY [facility] Last Admin: 04/03/18 09:11 Dose: 10 mg Benzonatate (Tessalon Perles) 100 mg PO TID [facility] Last Admin: 04/03/18 09:11 Dose: 100 mg Calcium Acetate (Phoslo) 667 mg PO TID [facility] Last Admin: 04/03/18 09:11 Dose: 667 mg Dextrose (Dextrose 50% Inj) 0 ml IV STAT PRN; Protocol PRN Reason: Hypoglycemia Protocol Dextrose (Glutose 15) 0 gm PO ONCE PRN; Protocol PRN Reason: Hypoglycemia Protocol Docusate Sodium (Colace) 100 mg PO BID [facility] Last Admin: 04/03/18 09:11 Dose: 100 mg Enoxaparin Sodium (Lovenox) 30 mg SC DAILY [facility] Last Admin: 04/03/18 09:11 Dose: 30 mg Epoetin Brandon (Procrit) 10,000 unit IV [facility] Last Admin: 04/02/18 11:08 Dose: 10,000 unit Fluticasone Propionate (Flonase) 2 spr SANJEEV BID [facility] Last Admin: 04/03/18 09:11 Dose: 2 sprays Folic Acid (Folic Acid) 1 mg PO DAILY [facility] Last Admin: 04/03/18 09:11 Dose: 1 mg Furosemide (Lasix) 20 mg IVP Q12H [facility] Last Admin: 04/03/18 00:04 Dose: 20 mg Glucagon (Glucagen Diagnostic Kit) 0 mg IM STAT PRN; Protocol PRN Reason: Hypoglycemia Protocol Heparin Sodium (Porcine) (Heparin) 3,700 units IVP [facility] Last Admin: 04/02/18 12:36 Dose: 3,700 units Meropenem 500 mg/ Sodium (Chloride) 100 mls @ 100 mls/hr IVPB Q8H [facility]; Protocol Last Admin: 04/03/18 09:12 Dose: 100 mls/hr Insulin Human Regular (Novolin R) 0 unit SC [facility]; Protocol Last Admin: 04/03/18 08:14 Dose: Not Given Levothyroxine Sodium (Synthroid) 100 mcg PO DAILY@0630 [facility] Last Admin: 04/03/18 05:56 Dose: 100 mcg Metoprolol Succinate (Toprol Xl) 25 mg PO DAILY [facility] Last Admin: 04/03/18 09:11 Dose: 25 mg Phenylephrine HCl (Steve-Synephrine 0.25% Nasal [place]) 0 ml NS Q12H PRN PRN Reason: Nasal congestion Prasugrel (Effient) 10 mg PO DAILY [facility] Last Admin: 04/03/18 09:11 Dose: 10 mg Rosuvastatin Calcium (Crestor) 10 mg PO HS [facility] Last Admin: 04/02/18 21:05 Dose: 10 mg Saccharomyces Boulardii (Florastor) 250 mg PO BID [facility] Last Admin: 04/03/18 09:11 Dose: 250 mg Sitagliptin Phosphate (Januvia) 25 mg PO DAILY [facility] Last Admin: 04/03/18 09:11 Dose: 25 mg - Labs Labs: 04/03/18 06:19 04/03/18 06:19 PT 14.5 SECONDS (9.7-12.2) H 03/29/18 11:10 INR 1.3 03/29/18 11:10 APTT 36 SECONDS (21-34) H 03/29/18 11:10 - Constitutional Appears: Non-toxic, No Acute Distress - Head Exam Head Exam: NORMAL INSPECTION, NORMOCEPHALIC - Eye Exam Eye Exam: EOMI, Normal appearance. absent: Nystagmus, Scleral icterus - ENT Exam ENT Exam: Mucous Membranes Moist - Respiratory Exam Respiratory Exam: Clear to Ausculation Bilateral, NORMAL BREATHING PATTERN. absent: Rales, Rhonchi, Wheezes - Cardiovascular Exam Cardiovascular Exam: REGULAR RHYTHM, +S1, +S2. absent: Tachycardia, Murmur - GI/Abdominal Exam GI & Abdominal Exam: Soft, Normal Bowel Sounds. absent: Distended, Firm, Guarding, Rigid, Tenderness - Extremities Exam Extremities Exam: Normal Inspection. absent: Calf Tenderness, Pedal Edema - Neurological Exam Neurological Exam: Alert, Awake, Oriented x3 - Psychiatric Exam Psychiatric exam: Normal Affect, Normal Mood - Skin Skin Exam: Intact, Normal Color Assessment and Plan - Assessment and Plan (Free Text) Assessment: 82 year old female with a PMHx of COPD, PVD CHF (w/ preserved EF), HTN, Myelodysplastic Syndrome, HLD, CKD, Hypothyrodism, and Pneumonia admitted for evaluation and treatment of hospital acquired pneumonia. CT scan on admission showed small b/l pleural effusions. s/p L thoracentesis (03/26) Plan: HCAP w/ Pleural Effusion - Cxray- large effusion and atelectasis. progression of infiltrate changes right mid to lower lung field 11-[address]- moderately large left-sided effusion with left lower lobe atelectasis. Small right sided effusion and minor right basilar atelectasis Increasing pulmonary edema warranted Pulm Consult, Dr. Hernandez, and Infectious Disease Consult, Dr. Rodriguez. IR Consulted- Dr. Longoria- thoracentesis- 500cc fluid removed with fluid studies BiPap at night PNA studies negative; Blood and Sputum cultures negative MucoMyst q4h chichi Duonebs q4h chichi Tessalon Perles 100mg po tid Meropenem and Vancomycin Tylenol 650mg prn Lasix 20mg IV bid Diastolic CHF 03-04-18 Echo:Grade II Pseudonormal filling dynamics, mild Pulml HTN, 60-65% EF EKG : NSR @ 92 BPM, No acute ST/T wave changes. BNP on Admission - 8470. CXR on Admission shows Pulm Congestion Lasix 20mg IV bid Metoprolol 25mg po daily Fluid/Salt restriction Monitor Is/Os ESRD CKD (Stage 5) with Dialysis through catheter Vascular surgery- Dr. Lindquist- right chest permacath placed on 03/29, Due to have vein mapping for AV fisutal as per surgery team 2 units of pRBCs have been transfused Patient hemodynamically stable Phoslo 667 mg po tid Procrit 74466 units IV MWF HTN Amlodipine 10mg po daily Lasix 20mg IVP bid Lopressor 25mg po dialy CAD Rosuvastatin 10mg po HS Tricor 48mg po daily chichi DM2 ISS Januvia 25mg po daily chichi Hypothyroidism Synthroid 100mcg po daily chichi Constipation 1x miralax Colace 100mg po bid PPX DVT ppx: Lovenox 30mg sc daily chichi GI ppx: Florastor 250mg po bid [place]ichi Disposition: Once PNA is cleared patient can have elective AVF placed with surgical team. As per hematology/surgery patient should followup with health and safety manager for continued treatment prior to surgery for AVF placement. Fistula is not a emergent procedure and patient can have continued dialysis through catheter until fistula placement/development. <Liz Hammer - Last Filed: 04/06/18 18:04> Objective - Vital Signs/Intake and Output Vital Signs (last 24 hours): Temp Pulse Resp BP Pulse Ox 98.2 F 81 20 153/71 H 100 04/06/18 15:00 04/06/18 15:00 04/06/18 15:00 04/06/18 15:00 04/06/18 15:00 - Medications Medications: Current Medications Acetaminophen (Tylenol 325mg Tab) 650 mg PO Q6 PRN PRN Reason: Fever >100.4 F Last Admin: 04/06/18 05:56 Dose: 650 mg Acetylcysteine (Acetylcysteine 20%) 4 ml INH Q4H [facility] Last Admin: 04/06/18 15:38 Dose: 4 ml Albuterol/Ipratropium (Duoneb 3 Mg/0.5 Mg (3 Ml) Ud) 3 ml INH RQ4 [facility] Last Admin: 04/06/18 15:38 Dose: 3 ml Amlodipine Besylate (Norvasc) 10 mg PO DAILY [facility] Last Admin: 04/06/18 10:13 Dose: 10 mg Artificial Tears (Artificial Tears Refresh Celluvisc) 0 ml OU TID [facility] Last Admin: 04/06/18 17:00 Dose: Not Given Benzonatate (Tessalon Perles) 100 mg PO TID [facility] Last Admin: 04/06/18 16:59 Dose: 100 mg Calcium Acetate (Phoslo) 667 mg PO TID [facility] Last Admin: 04/06/18 16:59 Dose: 667 mg Dextrose (Dextrose 50% Inj) 0 ml IV STAT PRN; Protocol PRN Reason: Hypoglycemia Protocol Dextrose (Glutose 15) 0 gm PO ONCE PRN; Protocol PRN Reason: Hypoglycemia Protocol Docusate Sodium (Colace) 100 mg PO BID [facility] Last Admin: 04/06/18 16:59 Dose: 100 mg Enoxaparin Sodium (Lovenox) 30 mg SC DAILY [facility] Last Admin: 04/06/18 10:12 Dose: 30 mg Epoetin [place] (Procrit) 10,000 unit IV [facility] Last Admin: 04/04/18 10:41 Dose: 10,000 unit Fluticasone Propionate (Flonase) 2 spr SANJEEV BID [facility] Last Admin: 04/06/18 17:00 Dose: Not Given Folic Acid (Folic Acid) 1 mg PO DAILY [facility] Last Admin: 04/06/18 11:00 Dose: Not Given Glucagon (Glucagen Diagnostic Kit) 0 mg IM STAT PRN; Protocol PRN Reason: Hypoglycemia Protocol Heparin Sodium (Porcine) (Heparin) 3,700 units IVP MWF [facility] Last Admin: 04/05/18 12:20 Dose: 3,700 units Hydralazine HCl (Apresoline) 25 mg PO BID [facility] Last Admin: 04/06/18 16:59 Dose: 25 mg Meropenem 500 mg/ Sodium (Chloride) 100 mls @ 100 mls/hr IVPB Q8H [facility]; Protocol Last Admin: 04/06/18 16:59 Dose: 100 mls/hr Insulin Human Regular (Novolin R) 0 unit SC ACHS [facility]; Protocol Last Admin: 04/06/18 12:54 Dose: 2 units Levothyroxine Sodium (Synthroid) 100 mcg PO DAILY@0630 [facility] Last Admin: 04/06/18 05:57 Dose: 100 mcg Metoprolol Succinate (Toprol Xl) 50 mg PO DAILY [facility] Last Admin: 04/06/18 10:13 Dose: 50 mg Phenylephrine HCl (Steve-Synephrine 0.25% Nasal [place]) 0 ml NS Q12H PRN PRN Reason: Nasal congestion Prasugrel (Effient) 10 mg PO DAILY [facility] Last Admin: 04/06/18 10:13 Dose: 10 mg Rosuvastatin Calcium (Crestor) 10 mg PO HS [facility] Last Admin: 04/05/18 21:35 Dose: 10 mg Saccharomyces Boulardii (Florastor) 250 mg PO BID [facility] Last Admin: 04/06/18 16:59 Dose: 250 mg Sitagliptin Phosphate (Januvia) 25 mg PO DAILY [facility] Last Admin: 04/06/18 10:13 Dose: 25 mg - Labs Labs: 04/06/18 07:15 04/06/18 07:15 PT 14.5 SECONDS (9.7-12.2) H 03/29/18 11:10 INR 1.3 03/29/18 11:10 APTT 36 SECONDS (21-34) H 03/29/18 11:10 Attending/Attestation - Attestation I have personally seen and examined this patient.: Yes I have fully participated in the care of the patient.: Yes I have reviewed all pertinent clinical information, including history, physical exam and plan: Yes Notes (Text): patient feels better mild sob,off bipap getting dialysis A-V fitula is not placed due to low platelets will arranged as an out pt assessment and the discussed with the resident and I agree with the documentation
--- NOTE | 2018-04-03 16:01 | CP.PCM.PN ---
Subjective - Date & Time of Evaluation Date of Evaluation: 04/03/18 Time of Evaluation: 16:01 - Subjective Subjective: Patient seen and examined No events overnight Comfortable off BiPAP Objective - Vital Signs/Intake and Output Vital Signs (last 24 hours): Temp Pulse Resp BP Pulse Ox 98.3 F 94 H 20 130/61 99 04/03/18 15:30 04/03/18 15:30 04/03/18 15:30 04/03/18 15:30 04/03/18 15:30 Intake and Output: 04/03/18 04/03/18 06:59 18:59 Intake Total 500 900 Balance 500 900 - Medications Medications: Current Medications Acetaminophen (Tylenol 325mg Tab) 650 mg PO Q6 PRN PRN Reason: Fever >100.4 F Last Admin: 03/29/18 22:47 Dose: 650 mg Acetylcysteine (Acetylcysteine 20%) 4 ml INH Q4H [facility] Last Admin: 04/03/18 15:38 Dose: 4 ml Albuterol/Ipratropium (Duoneb 3 Mg/0.5 Mg (3 Ml) Ud) 3 ml INH Q4H [facility] Last Admin: 04/03/18 15:38 Dose: 3 ml Amlodipine Besylate (Norvasc) 10 mg PO DAILY [facility] Last Admin: 04/03/18 09:11 Dose: 10 mg Benzonatate (Tessalon Perles) 100 mg PO TID [facility] Last Admin: 04/03/18 13:35 Dose: 100 mg Calcium Acetate (Phoslo) 667 mg PO TID [facility] Last Admin: 04/03/18 13:35 Dose: 667 mg Dextrose (Dextrose 50% Inj) 0 ml IV STAT PRN; Protocol PRN Reason: Hypoglycemia Protocol Dextrose (Glutose 15) 0 gm PO ONCE PRN; Protocol PRN Reason: Hypoglycemia Protocol Docusate Sodium (Colace) 100 mg PO BID [facility] Last Admin: 04/03/18 09:11 Dose: 100 mg Enoxaparin Sodium (Lovenox) 30 mg SC DAILY [facility] Last Admin: 04/03/18 09:11 Dose: 30 mg Epoetin Brandon (Procrit) 10,000 unit IV MWF [facility] Last Admin: 04/02/18 11:08 Dose: 10,000 unit Fluticasone Propionate (Flonase) 2 spr SANJEEV BID [facility] Last Admin: 04/03/18 09:11 Dose: 2 sprays Folic Acid (Folic Acid) 1 mg PO DAILY [facility] Last Admin: 04/03/18 09:11 Dose: 1 mg Furosemide (Lasix) 20 mg IVP Q12H [facility] Last Admin: 04/03/18 12:15 Dose: 20 mg Glucagon (Glucagen Diagnostic Kit) 0 mg IM STAT PRN; Protocol PRN Reason: Hypoglycemia Protocol Heparin Sodium (Porcine) (Heparin) 3,700 units IVP MWF [facility] Last Admin: 04/02/18 12:36 Dose: 3,700 units Meropenem 500 mg/ Sodium (Chloride) 100 mls @ 100 mls/hr IVPB Q8H [facility]; Protocol Last Admin: 04/03/18 09:12 Dose: 100 mls/hr Insulin Human Regular (Novolin R) 0 unit SC ACHS [facility]; Protocol Last Admin: 04/03/18 12:05 Dose: 1 units Levothyroxine Sodium (Synthroid) 100 mcg PO DAILY@0630 [facility] Last Admin: 04/03/18 05:56 Dose: 100 mcg Metoprolol Succinate (Toprol Xl) 25 mg PO DAILY [facility] Last Admin: 04/03/18 09:11 Dose: 25 mg Phenylephrine HCl (Steve-Synephrine 0.25% Nasal [place]) 0 ml NS Q12H PRN PRN Reason: Nasal congestion Prasugrel (Effient) 10 mg PO DAILY [facility] Last Admin: 04/03/18 09:11 Dose: 10 mg Rosuvastatin Calcium (Crestor) 10 mg PO HS [facility] Last Admin: 04/02/18 21:05 Dose: 10 mg Saccharomyces Boulardii (Florastor) 250 mg PO BID [facility] Last Admin: 04/03/18 09:11 Dose: 250 mg Sitagliptin Phosphate (Januvia) 25 mg PO DAILY [facility] Last Admin: 04/03/18 09:11 Dose: 25 mg - Labs Labs: 04/03/18 06:19 04/03/18 06:19 PT 14.5 SECONDS (9.7-12.2) H 03/29/18 11:10 INR 1.3 03/29/18 11:10 APTT 36 SECONDS (21-34) H 03/29/18 11:10 - Head Exam Head Exam: NORMAL INSPECTION - Eye Exam Eye Exam: Normal appearance - ENT Exam ENT Exam: Mucous Membranes Moist - Respiratory Exam Respiratory Exam: Clear to Ausculation Bilateral - Cardiovascular Exam Cardiovascular Exam: REGULAR RHYTHM - GI/Abdominal Exam GI & Abdominal Exam: Soft, Normal Bowel Sounds Assessment and Plan (1) CHF (congestive heart failure) Status: Acute (2) CKD (chronic kidney disease) stage 5, GFR less than 15 ml/min Status: Acute (3) Pleural effusion Status: Acute (4) COPD (chronic obstructive pulmonary disease) Status: Acute (5) Diabetes Status: Acute (6) Pneumonia Status: Acute - Assessment and Plan (Free Text) Plan: Bronchodilators Oxygen supplementation Continue supportive care Hemodialysis per renal DVT/GI prophylaxis
[2018-04-03] MEDS ORDERED: Tears Naturale Forte (15ml) OU ONE (19:26)
[2018-04-03] MEDS ORDERED: Aritificial Tears (15ml) OU SCH (19:30)
[2018-04-03] MEDS: Carboxymethylcellulose 1% Ophth Soln OU SCH (20:16)
[2018-04-04] MEDS: Albuterol-Ipratrop 3 mg / 0.5 (3 ml) UD INH SCH ×3 (00:05→19:58)
[2018-04-04] MEDS: Acetylcysteine 20% Inhal Soln (4ml) INH SCH ×5 (00:05→20:01)
[2018-04-04] MEDS: Meropenem 500 MG in Sodium Chloride 0.9% 100 ML IVPB SCH ×3 (01:27→19:04)
[2018-04-04] MEDS: Levothyroxine 100 MCG TAB PO SCH (05:52)
[2018-04-04] MEDS: (Novolin R) Insulin Human Regular 100 units/ml vial SC SCH ×4 (08:01→21:55)
[2018-04-04 09:48] LABS: BASO # 0.1 K/uL (0.0-0.2); BASO % 0.3 % (0.0-2.0); EOS # 0.5 K/uL (0.0-0.7); EOS % 2.4 % (0.0-4.0); HEMOGLOBIN 8.9 g/dL (11.0-16.0); LYMPH % 9.3 % (20.0-40.0); MEAN CELL VOLUME 91.7 fL (81.0-99.0); MEAN CORPUSCULAR HEMOGLOBIN 30.6 pg (27.0-31.0); MEAN CORPUSCULAR HGB CONC 33.4 g/dL (33.0-37.0); MEAN PLATELET VOLUME 11.1 fL (7.2-11.7); MONO # 8.1 K/uL (0.0-0.8); MONO % 37.2 % (0.0-10.0); NEUT # 11.1 K/uL (1.8-7.0); NEUT % 50.8 % (50.0-75.0); NRBC % 0.1 % (0.0-2.0); PLATELET COUNT 63 K/uL (130-400); RBC 2.91 Mil/uL (3.80-5.20); RED CELL DISTRIBUTION WIDTH 17.9 % (11.5-14.5); WHITE BLOOD COUNT 21.7 K/uL (4.8-10.8)
[2018-04-04] MEDS: Fluticasone Nasal 50 mcg/Spray NAS SCH ×2 (10:00→17:54)
[2018-04-04] MEDS: Saccharomyces Boulardi 250 mg Cap PO SCH ×2 (10:00→17:53)
[2018-04-04] MEDS: Carboxymethylcellulose 1% Ophth Soln OU SCH ×3 (10:00→17:54)
[2018-04-04 10:10] LABS: ALB/GLOB RATIO 0.7 (1.0-2.1); ALBUMIN 3.1 g/dL (3.5-5.0); CALCIUM 8.4 mg/dl (8.6-10.4)
[2018-04-04] MEDS: Epoetin Alfa 10,000 unit/ml Dialysis IV SCH (10:41)
[2018-04-04 12:24] LABS: ANISOCYTOSIS SLIGHT; BANDS 1 % (0-2); EOSINOPHIL 3 % (0-4); HYPOCHROMIC SLIGHT; LYMPHOCYTE 14 % (20-40); MONOCYTE 32 % (0-10); MYELOCYTE 1 % (0-0); NEUTROPHIL 49 % (50-75); NUCLEATED RED BLOOD CELL 1 % (0-0); PLATELET ESTIMATE DECREASED (NORMAL); POIKILOCYTOSIS SLIGHT; TOTAL CELLS COUNTED 100
[2018-04-04 12:25] LABS: POLYCHROMIC SLIGHT; TARGET CELLS SLIGHT; TEARDROP CELLS SLIGHT
--- NOTE | 2018-04-04 12:50 | CP.PCM.PN ---
Subjective - Date & Time of Evaluation Date of Evaluation: 04/04/18 Time of Evaluation: 12:48 - Subjective Subjective: Patient remained stable No events overnight Objective - Vital Signs/Intake and Output Vital Signs (last 24 hours): Temp Pulse Resp BP Pulse Ox 98.1 F 97 H 20 156/54 H 95 04/04/18 09:30 04/04/18 12:00 04/04/18 09:30 04/04/18 12:30 04/04/18 09:30 Intake and Output: 04/04/18 04/04/18 06:59 18:59 Intake Total 800 Balance 800 - Medications Medications: Current Medications Acetaminophen (Tylenol 325mg Tab) 650 mg PO Q6 PRN PRN Reason: Fever >100.4 F Last Admin: 03/29/18 22:47 Dose: 650 mg Acetylcysteine (Acetylcysteine 20%) 4 ml INH Q4H [facility] Last Admin: 04/04/18 11:18 Dose: Not Given Amlodipine Besylate (Norvasc) 10 mg PO DAILY [facility] Last Admin: 04/03/18 09:11 Dose: 10 mg Artificial Tears (Artificial Tears Refresh Celluvisc) 0 ml OU TID [facility] Last Admin: 04/04/18 10:00 Dose: Not Given Benzonatate (Tessalon Perles) 100 mg PO TID [facility] Last Admin: 04/03/18 17:48 Dose: 100 mg Calcium Acetate (Phoslo) 667 mg PO TID [facility] Last Admin: 04/03/18 17:48 Dose: 667 mg Dextrose (Dextrose 50% Inj) 0 ml IV STAT PRN; Protocol PRN Reason: Hypoglycemia Protocol Dextrose (Glutose 15) 0 gm PO ONCE PRN; Protocol PRN Reason: Hypoglycemia Protocol Docusate Sodium (Colace) 100 mg PO BID [facility] Last Admin: 04/04/18 10:00 Dose: Not Given Enoxaparin Sodium (Lovenox) 30 mg SC DAILY [facility] Last Admin: 04/03/18 09:11 Dose: 30 mg Epoetin Brandon (Procrit) 10,000 unit IV MWF [facility] Last Admin: 04/04/18 10:41 Dose: 10,000 unit Fluticasone Propionate (Flonase) 2 spr SANJEEV BID [facility] Last Admin: 04/03/18 18:55 Dose: 2 sprays Folic Acid (Folic Acid) 1 mg PO DAILY [facility] Last Admin: 04/03/18 09:11 Dose: 1 mg Furosemide (Lasix) 20 mg IVP Q12H [facility] Last Admin: 04/04/18 01:28 Dose: 20 mg Glucagon (Glucagen Diagnostic Kit) 0 mg IM STAT PRN; Protocol PRN Reason: Hypoglycemia Protocol Heparin Sodium (Porcine) (Heparin) 3,700 units IVP MWF [facility] Last Admin: 04/04/18 10:36 Dose: 3,700 units Meropenem 500 mg/ Sodium (Chloride) 100 mls @ 100 mls/hr IVPB Q8H [facility]; Protocol Last Admin: 04/04/18 01:27 Dose: 100 mls/hr Insulin Human Regular (Novolin R) 0 unit SC ACHS [facility]; Protocol Last Admin: 04/04/18 12:06 Dose: Not Given Levothyroxine Sodium (Synthroid) 100 mcg PO DAILY@0630 [facility] Last Admin: 04/04/18 05:52 Dose: 100 mcg Metoprolol Succinate (Toprol Xl) 25 mg PO DAILY [facility] Last Admin: 04/03/18 09:11 Dose: 25 mg Phenylephrine HCl (Steve-Synephrine 0.25% Nasal [place]) 0 ml NS Q12H PRN PRN Reason: Nasal congestion Prasugrel (Effient) 10 mg PO DAILY [facility] Last Admin: 04/03/18 09:11 Dose: 10 mg Rosuvastatin Calcium (Crestor) 10 mg PO HS [facility] Last Admin: 04/03/18 21:56 Dose: 10 mg Saccharomyces Boulardii (Florastor) 250 mg PO BID [facility] Last Admin: 04/03/18 17:48 Dose: 250 mg Sitagliptin Phosphate (Januvia) 25 mg PO DAILY [facility] Last Admin: 04/03/18 09:11 Dose: 25 mg - Labs Labs: 04/04/18 09:42 04/04/18 09:42 PT 14.5 SECONDS (9.7-12.2) H 03/29/18 11:10 INR 1.3 03/29/18 11:10 APTT 36 SECONDS (21-34) H 03/29/18 11:10 - Eye Exam Eye Exam: Normal appearance - ENT Exam ENT Exam: Mucous Membranes Moist - Respiratory Exam Respiratory Exam: Clear to Ausculation Bilateral - Cardiovascular Exam Cardiovascular Exam: REGULAR RHYTHM - GI/Abdominal Exam GI & Abdominal Exam: Soft, Normal Bowel Sounds Assessment and Plan (1) CHF (congestive heart failure) Status: Acute (2) CKD (chronic kidney disease) stage 5, GFR less than 15 ml/min Status: Acute (3) Pleural effusion Status: Acute (4) COPD (chronic obstructive pulmonary disease) Status: Acute (5) Diabetes Status: Acute (6) Pneumonia Status: Acute - Assessment and Plan (Free Text) Plan: Patient remained stable Okay to discharge home from pulmonary perspective We will follow patient as outpatient
[2018-04-04] MEDS: Metoprolol Succinate 25 mg XL Tab PO SCH (14:06)
--- NOTE | 2018-04-04 14:47 | CP.PCM.PN ---
Subjective - Date & Time of Evaluation Date of Evaluation: 04/04/18 Time of Evaluation: 14:45 - Subjective Subjective: seen on HD no acute complaints chronically ill no fever chronic sob no nausea appeite ok no bruising no edema no dysuria no rash no chest pain no headache Objective - Vital Signs/Intake and Output Vital Signs (last 24 hours): Temp Pulse Resp BP Pulse Ox 98.2 F 95 H 18 141/68 97 04/04/18 12:45 04/04/18 12:45 04/04/18 12:45 04/04/18 12:45 04/04/18 12:45 Intake and Output: 04/04/18 04/04/18 06:59 18:59 Intake Total 800 Balance 800 - Medications Medications: Current Medications Acetaminophen (Tylenol 325mg Tab) 650 mg PO Q6 PRN PRN Reason: Fever >100.4 F Last Admin: 03/29/18 22:47 Dose: 650 mg Acetylcysteine (Acetylcysteine 20%) 4 ml INH Q4H [facility] Last Admin: 04/04/18 11:18 Dose: Not Given Amlodipine Besylate (Norvasc) 10 mg PO DAILY [facility] Last Admin: 04/04/18 14:06 Dose: 10 mg Artificial Tears (Artificial Tears Refresh Celluvisc) 0 ml OU TID [facility] Last Admin: 04/04/18 14:05 Dose: 1 drop Benzonatate (Tessalon Perles) 100 mg PO TID [facility] Last Admin: 04/04/18 14:06 Dose: 100 mg Calcium Acetate (Phoslo) 667 mg PO TID [facility] Last Admin: 04/04/18 14:05 Dose: 667 mg Dextrose (Dextrose 50% Inj) 0 ml IV STAT PRN; Protocol PRN Reason: Hypoglycemia Protocol Dextrose (Glutose 15) 0 gm PO ONCE PRN; Protocol PRN Reason: Hypoglycemia Protocol Docusate Sodium (Colace) 100 mg PO BID [facility] Last Admin: 04/04/18 10:00 Dose: Not Given Enoxaparin Sodium (Lovenox) 30 mg SC DAILY [facility] Last Admin: 04/03/18 09:11 Dose: 30 mg Epoetin Brandon (Procrit) 10,000 unit IV MWF [facility] Last Admin: 04/04/18 10:41 Dose: 10,000 unit Fluticasone Propionate (Flonase) 2 spr SANJEEV BID [facility] Last Admin: 04/04/18 10:00 Dose: Not Given Folic Acid (Folic Acid) 1 mg PO DAILY [facility] Last Admin: 04/04/18 14:06 Dose: 1 mg Furosemide (Lasix) 20 mg IVP Q12H [facility] Last Admin: 04/04/18 13:00 Dose: Not Given Glucagon (Glucagen Diagnostic Kit) 0 mg IM STAT PRN; Protocol PRN Reason: Hypoglycemia Protocol Heparin Sodium (Porcine) (Heparin) 3,700 units IVP MWF [facility] Last Admin: 04/04/18 10:36 Dose: 3,700 units Meropenem 500 mg/ Sodium (Chloride) 100 mls @ 100 mls/hr IVPB Q8H [facility]; Protocol Last Admin: 04/04/18 10:00 Dose: Not Given Insulin Human Regular (Novolin R) 0 unit SC ACHS [facility]; Protocol Last Admin: 04/04/18 12:06 Dose: Not Given Levothyroxine Sodium (Synthroid) 100 mcg PO DAILY@0630 [facility] Last Admin: 04/04/18 05:52 Dose: 100 mcg Metoprolol Succinate (Toprol Xl) 25 mg PO DAILY [facility] Last Admin: 04/04/18 14:06 Dose: 25 mg Phenylephrine HCl (Steve-Synephrine 0.25% Nasal [place]) 0 ml NS Q12H PRN PRN Reason: Nasal congestion Prasugrel (Effient) 10 mg PO DAILY [facility] Last Admin: 04/04/18 14:05 Dose: 10 mg Rosuvastatin Calcium (Crestor) 10 mg PO HS [facility] Last Admin: 04/03/18 21:56 Dose: 10 mg Saccharomyces Boulardii (Florastor) 250 mg PO BID [facility] Last Admin: 04/04/18 10:00 Dose: Not Given Sitagliptin Phosphate (Januvia) 25 mg PO DAILY [facility] Last Admin: 04/04/18 14:06 Dose: 25 mg - Labs Labs: 04/04/18 09:42 04/04/18 09:42 PT 14.5 SECONDS (9.7-12.2) H 03/29/18 11:10 INR 1.3 03/29/18 11:10 APTT 36 SECONDS (21-34) H 03/29/18 11:10 - Constitutional Appears: No Acute Distress, Chronically Ill - Head Exam Head Exam: ATRAUMATIC, NORMAL INSPECTION - Eye Exam Eye Exam: EOMI, Normal appearance - ENT Exam ENT Exam: Mucous Membranes Moist - Neck Exam Neck Exam: Full ROM. absent: Lymphadenopathy - Respiratory Exam Respiratory Exam: Decreased Breath Sounds. absent: Accessory Muscle Use - Cardiovascular Exam Cardiovascular Exam: REGULAR RHYTHM. absent: Rubs - GI/Abdominal Exam GI & Abdominal Exam: Distended. absent: Tenderness - Neurological Exam Neurological Exam: Alert, Awake - Psychiatric Exam Psychiatric exam: Normal Affect, Normal Mood Assessment and Plan - Assessment and Plan (Free Text) Assessment: plan for HD in am and Monday can leave after HD on Monday first outpatient admit on Monday at [facility]
--- NOTE | 2018-04-04 15:19 | CP.PCM.PN ---
<Jennifer Worthington - Last Filed: 04/04/18 15:14> Subjective - Date & Time of Evaluation Date of Evaluation: 04/04/18 Time of Evaluation: 14:00 - Subjective Subjective: PGY-1 Medicine Progress Note for Dr. Hammer's service Patient seen and examined at bedside. Patient offers no acute complaints. Patien t reports improved breathing from admission. Patient denies fevers, chills, chest pain, sob, n/v, constipation or diarrhea, weakness, or dysuria. Patient has been approved by [facility] for hemodialysis. As per conversation with social work team who are actively conversing with [facility] associates, patient cannot start dialysis until next Monday due to holiday scheduling and every new patient must start on . Patient will have , , Mon schedule with [facility]. Patient will remain in hospital for further dialysis until patient cannot be resumed on outpatient scheduling as per [facility]. Objective - Vital Signs/Intake and Output Vital Signs (last 24 hours): Temp Pulse Resp BP Pulse Ox 98.2 F 95 H 18 141/68 97 04/04/18 12:45 04/04/18 12:45 04/04/18 12:45 04/04/18 12:45 04/04/18 12:45 Intake and Output: 04/04/18 04/04/18 06:59 18:59 Intake Total 800 Balance 800 - Medications Medications: Current Medications Acetaminophen (Tylenol 325mg Tab) 650 mg PO Q6 PRN PRN Reason: Fever >100.4 F Last Admin: 03/29/18 22:47 Dose: 650 mg Acetylcysteine (Acetylcysteine 20%) 4 ml INH Q4H [facility] Last Admin: 04/04/18 11:18 Dose: Not Given Amlodipine Besylate (Norvasc) 10 mg PO DAILY [facility] Last Admin: 04/04/18 14:06 Dose: 10 mg Artificial Tears (Artificial Tears Refresh Celluvisc) 0 ml OU TID [facility] Last Admin: 04/04/18 14:05 Dose: 1 drop Benzonatate (Tessalon Perles) 100 mg PO TID [facility] Last Admin: 04/04/18 14:06 Dose: 100 mg Calcium Acetate (Phoslo) 667 mg PO TID [facility] Last Admin: 04/04/18 14:05 Dose: 667 mg Dextrose (Dextrose 50% Inj) 0 ml IV STAT PRN; Protocol PRN Reason: Hypoglycemia Protocol Dextrose (Glutose 15) 0 gm PO ONCE PRN; Protocol PRN Reason: Hypoglycemia Protocol Docusate Sodium (Colace) 100 mg PO BID [facility] Last Admin: 04/04/18 10:00 Dose: Not Given Enoxaparin Sodium (Lovenox) 30 mg SC DAILY [facility] Last Admin: 04/03/18 09:11 Dose: 30 mg Epoetin Brandon (Procrit) 10,000 unit IV [facility] [place] Last Admin: 04/04/18 10:41 Dose: 10,000 unit Fluticasone Propionate (Flonase) 2 spr SANJEEV BID [facility] Last Admin: 04/04/18 10:00 Dose: Not Given Folic Acid (Folic Acid) 1 mg PO DAILY [facility] Last Admin: 04/04/18 14:06 Dose: 1 mg Furosemide (Lasix) 20 mg IVP Q12H [facility] Last Admin: 04/04/18 13:00 Dose: Not Given Glucagon (Glucagen Diagnostic Kit) 0 mg IM STAT PRN; Protocol PRN Reason: Hypoglycemia Protocol Heparin Sodium (Porcine) (Heparin) 3,700 units IVP [facility] [place] Last Admin: 04/04/18 10:36 Dose: 3,700 units Meropenem 500 mg/ Sodium (Chloride) 100 mls @ 100 mls/hr IVPB Q8H [facility]; Protocol Last Admin: 04/04/18 10:00 Dose: Not Given Insulin Human Regular (Novolin R) 0 unit SC ACHS [facility]; Protocol Last Admin: 04/04/18 12:06 Dose: Not Given Levothyroxine Sodium (Synthroid) 100 mcg PO DAILY@0630 [facility] Last Admin: 04/04/18 05:52 Dose: 100 mcg Metoprolol Succinate (Toprol Xl) 25 mg PO DAILY [facility] Last Admin: 04/04/18 14:06 Dose: 25 mg Phenylephrine HCl (Steve-Synephrine 0.25% Nasal [place]) 0 ml NS Q12H PRN PRN Reason: Nasal congestion Prasugrel (Effient) 10 mg PO DAILY [facility] Last Admin: 04/04/18 14:05 Dose: 10 mg Rosuvastatin Calcium (Crestor) 10 mg PO HS [facility] Last Admin: 04/03/18 21:56 Dose: 10 mg Saccharomyces Boulardii (Florastor) 250 mg PO BID [facility] Last Admin: 04/04/18 10:00 Dose: Not Given Sitagliptin Phosphate (Januvia) 25 mg PO DAILY [facility] Last Admin: 04/04/18 14:06 Dose: 25 mg - Labs Labs: 04/04/18 09:42 04/04/18 09:42 PT 14.5 SECONDS (9.7-12.2) H 03/29/18 11:10 INR 1.3 03/29/18 11:10 APTT 36 SECONDS (21-34) H 03/29/18 11:10 - Additional Findings Additional findings: - Constitutional Appears: Non-toxic, No Acute Distress - Head Exam Head Exam: NORMAL INSPECTION, NORMOCEPHALIC - Eye Exam Eye Exam: EOMI, Normal appearance. absent: Nystagmus, Scleral icterus - ENT Exam ENT Exam: Mucous Membranes Moist - Respiratory Exam Respiratory Exam: Clear to Ausculation Bilateral, NORMAL BREATHING PATTERN. absent: Rales, Rhonchi, Wheezes - Cardiovascular Exam Cardiovascular Exam: REGULAR RHYTHM, +S1, +S2. absent: Tachycardia, Murmur - GI/Abdominal Exam GI & Abdominal Exam: Soft, Normal Bowel Sounds. absent: Distended, Firm, Guarding, Rigid, Tenderness - Extremities Exam Extremities Exam: Normal Inspection. absent: Calf Tenderness, Pedal Edema - Neurological Exam Neurological Exam: Alert, Awake, Oriented x3 - Psychiatric Exam Psychiatric exam: Normal Affect, Normal Mood - Skin Skin Exam: Intact, Normal Color Assessment and Plan - Assessment and Plan (Free Text) Assessment: 82 year old female with a PMHx of COPD, PVD CHF (w/ preserved EF), HTN, Myelodysplastic Syndrome, HLD, CKD, Hypothyrodism, and Pneumonia admitted for evaluation and treatment of hospital acquired pneumonia. CT scan on admission showed small b/l pleural effusions. s/p L thoracentesis (03/26) Plan: Healthcare associated pneumonia w/ Pleural Effusion 11-10 Cxray- large effusion and atelectasis. progression of infiltrate changes right mid to lower lung field 11-[address]- moderately large left-sided effusion with left lower lobe atelectasis. Small right sided effusion and minor right basilar atelectasis Increasing pulmonary edema warranted Pulm Consult, Dr. Hernandez, and Infectious Disease Consult, Dr. Rodriguez. IR Consulted- Dr. Longoria- thoracentesis- 500cc fluid removed with fluid studies BiPap at night PNA studies negative; Blood and Sputum cultures negative MucoMyst q4h chichi Duonebs q4h chichi Tessalon Perles 100mg po tid Meropenem and Vancomycin Tylenol 650mg prn Lasix 20mg IV bid Diastolic congestive heart failure 03-04-18 Echo:Grade II Pseudonormal filling dynamics, mild Pulml HTN, 60-65% EF EKG : NSR @ 92 BPM, No acute ST/T wave changes. BNP on Admission - 8470. CXR on Admission shows Pulm Congestion Lasix 20mg IV bid Metoprolol 25mg po daily Fluid/Salt restriction Monitor Is/Os ESRD CKD (Stage 5) with dialysis through catheter Vascular surgery- Dr. Lindquist- right chest permacath placed on 03/29, Due to have vein mapping for AV fisutal as per surgery team 2 units of pRBCs have been transfused Patient hemodynamically stable Phoslo 667 mg po tid Procrit 29344 units IV MWF HTN Amlodipine 10mg po daily Lasix 20mg IVP bid Lopressor 25mg po dialy Coronary artery disease Rosuvastatin 10mg po HS Tricor 48mg po daily chichi DM2 ISS Januvia 25mg po daily [facility] Hypothyroidism Synthroid 100mcg po daily [facility] Constipation 1x miralax Colace 100mg po bid PPX DVT ppx: Lovenox 30mg sc daily [facility] GI ppx: Florastor 250mg po bid [facility] Disposition: Patient cleared with [place] to restart HD next week. Patient will be discharged after Monday dialysis session. <Liz Hammer - Last Filed: 04/06/18 17:59> Objective - Vital Signs/Intake and Output Vital Signs (last 24 hours): Temp Pulse Resp BP Pulse Ox 98.2 F 81 20 153/71 H 100 04/06/18 15:00 04/06/18 15:00 04/06/18 15:00 04/06/18 15:00 04/06/18 15:00 - Medications Medications: Current Medications Acetaminophen (Tylenol 325mg Tab) 650 mg PO Q6 PRN PRN Reason: Fever >100.4 F Last Admin: 04/06/18 05:56 Dose: 650 mg Acetylcysteine (Acetylcysteine 20%) 4 ml INH Q4H [facility] Last Admin: 04/06/18 15:38 Dose: 4 ml Albuterol/Ipratropium (Duoneb 3 Mg/0.5 Mg (3 Ml) Ud) 3 ml INH RQ4 [facility] Last Admin: 04/06/18 15:38 Dose: 3 ml Amlodipine Besylate (Norvasc) 10 mg PO DAILY [facility] Last Admin: 04/06/18 10:13 Dose: 10 mg Artificial Tears (Artificial Tears Refresh Celluvisc) 0 ml OU TID [facility] Last Admin: 04/06/18 17:00 Dose: Not Given Benzonatate (Tessalon Perles) 100 mg PO TID [facility] Last Admin: 04/06/18 16:59 Dose: 100 mg Calcium Acetate (Phoslo) 667 mg PO TID [facility] Last Admin: 04/06/18 16:59 Dose: 667 mg Dextrose (Dextrose 50% Inj) 0 ml IV STAT PRN; Protocol PRN Reason: Hypoglycemia Protocol Dextrose (Glutose 15) 0 gm PO ONCE PRN; Protocol PRN Reason: Hypoglycemia Protocol Docusate Sodium (Colace) 100 mg PO BID [facility] Last Admin: 04/06/18 16:59 Dose: 100 mg Enoxaparin Sodium (Lovenox) 30 mg SC DAILY [facility] Last Admin: 04/06/18 10:12 Dose: 30 mg Epoetin Brandon (Procrit) 10,000 unit IV [facility] [place] Last Admin: 04/04/18 10:41 Dose: 10,000 unit Fluticasone Propionate (Flonase) 2 spr SANJEEV BID [facility] Last Admin: 04/06/18 17:00 Dose: Not Given Folic Acid (Folic Acid) 1 mg PO DAILY [facility] Last Admin: 04/06/18 11:00 Dose: Not Given Glucagon (Glucagen Diagnostic Kit) 0 mg IM STAT PRN; Protocol PRN Reason: Hypoglycemia Protocol Heparin Sodium (Porcine) (Heparin) 3,700 units IVP MWF [facility] Last Admin: 04/05/18 12:20 Dose: 3,700 units Hydralazine HCl (Apresoline) 25 mg PO BID [facility] Last Admin: 04/06/18 16:59 Dose: 25 mg Meropenem 500 mg/ Sodium (Chloride) 100 mls @ 100 mls/hr IVPB Q8H [facility]; Protocol Last Admin: 04/06/18 16:59 Dose: 100 mls/hr Insulin Human Regular (Novolin R) 0 unit SC ACHS [facility]; Protocol Last Admin: 04/06/18 12:54 Dose: 2 units Levothyroxine Sodium (Synthroid) 100 mcg PO DAILY@0630 [facility] Last Admin: 04/06/18 05:57 Dose: 100 mcg Metoprolol Succinate (Toprol Xl) 50 mg PO DAILY [facility] Last Admin: 04/06/18 10:13 Dose: 50 mg Phenylephrine HCl (Steve-Synephrine 0.25% Nasal [place]) 0 ml NS Q12H PRN PRN Reason: Nasal congestion Prasugrel (Effient) 10 mg PO DAILY [facility] Last Admin: 04/06/18 10:13 Dose: 10 mg Rosuvastatin Calcium (Crestor) 10 mg PO HS [facility] Last Admin: 04/05/18 21:35 Dose: 10 mg Saccharomyces Boulardii (Florastor) 250 mg PO BID [facility] Last Admin: 04/06/18 16:59 Dose: 250 mg Sitagliptin Phosphate (Januvia) 25 mg PO DAILY [facility] Last Admin: 04/06/18 10:13 Dose: 25 mg - Labs Labs: 04/06/18 07:15 04/06/18 07:15 PT 14.5 SECONDS (9.7-12.2) H 03/29/18 11:10 INR 1.3 03/29/18 11:10 APTT 36 SECONDS (21-34) H 03/29/18 11:10 Attending/Attestation - Attestation I have personally seen and examined this patient.: Yes I have fully participated in the care of the patient.: Yes I have reviewed all pertinent clinical information, including history, physical exam and plan: Yes Notes (Text): pending discharge after out patient dialysis arrangement Clinically improving Assessment and the plan discussed with the resident in detail I agree with the documentation
--- NOTE | 2018-04-04 16:32 | CARD ---
APPROVED REPORT Date of service: 03/24/2018 EKG Measurement Heart [id number] <Conclusion> Normal sinus rhythm Possible Left atrial enlargement Left ventricular hypertrophy Inferior infarct, age undetermined Abnormal ECG
[2018-04-05] MEDS: Acetylcysteine 20% Inhal Soln (4ml) INH SCH ×6 (00:05→19:14)
[2018-04-05] MEDS: Albuterol-Ipratrop 3 mg / 0.5 (3 ml) UD INH SCH ×6 (00:05→19:14)
[2018-04-05] MEDS: Meropenem 500 MG in Sodium Chloride 0.9% 100 ML IVPB SCH ×3 (00:32→18:05)
[2018-04-05] MEDS: Levothyroxine 100 MCG TAB PO SCH (06:01)
--- NOTE | 2018-04-05 06:17 | CP.PCM.PN ---
<Gail Fagan - Last Filed: 04/05/18 06:20> Subjective - Date & Time of Evaluation Date of Evaluation: 04/05/18 Time of Evaluation: 06:15 - Subjective Subjective: PGY-1 Medicine Progress Note for Dr. Hammer Patient was seen and examined at bedside in no acute distress. Nurse reports no overnight events. Patient has no new complaints. Tolerating HD well. Denies chest pain, shortness of breath, dizziness, headache. Objective - Vital Signs/Intake and Output Vital Signs (last 24 hours): Temp Pulse Resp BP Pulse Ox 98 F 86 20 137/67 97 04/05/18 00:00 04/05/18 00:00 04/05/18 00:00 04/05/18 00:25 04/05/18 00:00 - Medications Medications: Current Medications Acetaminophen (Tylenol 325mg Tab) 650 mg PO Q6 PRN PRN Reason: Fever >100.4 F Last Admin: 03/29/18 22:47 Dose: 650 mg Acetylcysteine (Acetylcysteine 20%) 4 ml INH Q4H [facility] Last Admin: 04/05/18 03:40 Dose: Not Given Albuterol/Ipratropium (Duoneb 3 Mg/0.5 Mg (3 Ml) Ud) 3 ml INH RQ4 [facility] Last Admin: 04/05/18 03:40 Dose: 3 ml Amlodipine Besylate (Norvasc) 10 mg PO DAILY [facility] Last Admin: 04/04/18 14:06 Dose: 10 mg Artificial Tears (Artificial Tears Refresh Celluvisc) 0 ml OU TID [facility] Last Admin: 04/04/18 17:54 Dose: 1 drop Benzonatate (Tessalon Perles) 100 mg PO TID [facility] Last Admin: 04/04/18 17:53 Dose: 100 mg Calcium Acetate (Phoslo) 667 mg PO TID [facility] Last Admin: 04/04/18 17:53 Dose: 667 mg Dextrose (Dextrose 50% Inj) 0 ml IV STAT PRN; Protocol PRN Reason: Hypoglycemia Protocol Dextrose (Glutose 15) 0 gm PO ONCE PRN; Protocol PRN Reason: Hypoglycemia Protocol Docusate Sodium (Colace) 100 mg PO BID [facility] Last Admin: 04/04/18 17:53 Dose: 100 mg Enoxaparin Sodium (Lovenox) 30 mg SC DAILY [facility] Last Admin: 04/03/18 09:11 Dose: 30 mg Epoetin Brandon (Procrit) 10,000 unit IV MWF [facility] Last Admin: 04/04/18 10:41 Dose: 10,000 unit Fluticasone Propionate (Flonase) 2 spr SANJEEV BID [facility] Last Admin: 04/04/18 17:54 Dose: 1 sprays Folic Acid (Folic Acid) 1 mg PO DAILY [facility] Last Admin: 04/04/18 14:06 Dose: 1 mg Furosemide (Lasix) 20 mg IVP Q12H [facility] Last Admin: 04/05/18 00:25 Dose: 20 mg Glucagon (Glucagen Diagnostic Kit) 0 mg IM STAT PRN; Protocol PRN Reason: Hypoglycemia Protocol Heparin Sodium (Porcine) (Heparin) 3,700 units [place]P [facility] Last Admin: 04/04/18 10:36 Dose: 3,700 units Meropenem 500 mg/ Sodium (Chloride) 100 mls @ 100 mls/hr IVPB Q8H [facility]; Protocol Last Admin: 04/05/18 00:32 Dose: 100 mls/hr Insulin Human Regular (Novolin R) 0 unit SC ACHS [facility]; Protocol Last Admin: 04/04/18 21:55 Dose: Not Given Levothyroxine Sodium (Synthroid) 100 mcg PO DAILY@0630 [facility] Last Admin: 04/05/18 06:01 Dose: 100 mcg Metoprolol Succinate (Toprol Xl) 25 mg PO DAILY [facility] Last Admin: 04/04/18 14:06 Dose: 25 mg Phenylephrine HCl (Steve-Synephrine 0.25% Nasal [place]) 0 ml NS Q12H PRN PRN Reason: Nasal congestion Prasugrel (Effient) 10 mg PO DAILY [facility] Last Admin: 04/04/18 14:05 Dose: 10 mg Rosuvastatin Calcium (Crestor) 10 mg PO HS [facility] Last Admin: 04/04/18 21:34 Dose: 10 mg Saccharomyces Boulardii (Florastor) 250 mg PO BID [facility] Last Admin: 04/04/18 17:53 Dose: 250 mg Sitagliptin Phosphate (Januvia) 25 mg PO DAILY [facility] Last Admin: 04/04/18 14:06 Dose: 25 mg - Labs Labs: 04/04/18 09:42 04/04/18 09:42 PT 14.5 SECONDS (9.7-12.2) H 11/15/18 11:10 INR 1.3 03/29/18 11:10 APTT 36 SECONDS (21-34) H 03/29/18 11:10 - Constitutional Appears: Non-toxic, No Acute Distress - Head Exam Head Exam: ATRAUMATIC, NORMOCEPHALIC - Eye Exam Eye Exam: EOMI, Normal appearance, PERRL - ENT Exam ENT Exam: Mucous Membranes Moist - Respiratory Exam Respiratory Exam: Clear to Ausculation Bilateral, NORMAL BREATHING PATTERN. absent: Rales, Rhonchi, Wheezes - Cardiovascular Exam Cardiovascular Exam: REGULAR RHYTHM, +S1, +S2 - GI/Abdominal Exam GI & Abdominal Exam: Soft, Normal Bowel Sounds. absent: Distended, Firm, Guarding, Tenderness - Extremities Exam Extremities Exam: Normal Capillary Refill. absent: Calf Tenderness, Pedal Edema - Neurological Exam Neurological Exam: Alert, Awake, Oriented x3 - Psychiatric Exam Psychiatric exam: Normal Affect, Normal Mood - Skin Skin Exam: Normal Color, Warm Assessment and Plan - Assessment and Plan (Free Text) Assessment: 82 year old female with a PMHx of COPD, PVD CHF (w/ preserved EF), HTN, Myelodys plastic Syndrome, HLD, CKD, Hypothyrodism, and Pneumonia admitted for evaluation and treatment of hospital acquired pneumonia. CT scan on admission showed small b/l pleural effusions. s/p L thoracentesis (03/26). Plan: Healthcare associated pneumonia w/ Pleural Effusion - Cxray- large effusion and atelectasis. progression of infiltrate changes right mid to lower lung field [address]- moderately large left-sided effusion with left lower lobe atelec tasis. Small right sided effusion and minor right basilar atelectasis Increasing pulmonary edema warranted Pulm Consult, Dr. Hernandez, and Infectious Disease Consult, Dr. Rodriguez. IR Consulted- Dr. Longoria- thoracentesis- 500cc fluid removed with fluid studies BiPap at night PNA studies negative; Blood and Sputum cultures negative MucoMyst q4h chichi Duonebs q4h chichi Tessalon Perles 100mg po tid Meropenem and Vancomycin Tylenol 650mg prn Lasix 20mg IV bid Diastolic congestive heart failure 03-04-18 Echo:Grade II Pseudonormal filling dynamics, mild Pulml HTN, 60-65% EF EKG : NSR @ 92 BPM, No acute ST/T wave changes. BNP on Admission - 8470. CXR on Admission shows Pulm Congestion Lasix 20mg IV bid Metoprolol 25mg po daily Fluid/Salt restriction Monitor Is/Os ESRD CKD (Stage 5) with dialysis through catheter Vascular surgery- Dr. Lindquist- right chest permacath placed on 03/29, Due to have vein mapping for AV fisutal as per surgery team 2 units of pRBCs have been transfused Patient hemodynamically stable Phoslo 667 mg po tid Procrit 89202 units IV MWF HTN Amlodipine 10mg po daily Lasix 20mg IVP bid Lopressor 25mg po dialy Coronary artery disease Rosuvastatin 10mg po HS Tricor 48mg po daily chichi DM2 ISS Januvia 25mg po daily chichi Hypothyroidism Synthroid 100mcg po daily chichi Constipation 1x miralax Colace 100mg po bid PPX DVT ppx: Lovenox 30mg sc daily [facility] GI ppx: Florastor 250mg po bid [facility] Disposition: Patient cleared with [place] to restart HD next week. Patient will be discharged after Monday dialysis session. <Liz Hammer - Last Filed: 04/06/18 17:57> Objective - Vital Signs/Intake and Output Vital Signs (last 24 hours): Temp Pulse Resp BP Pulse Ox 98.2 F 81 20 153/71 H 100 04/06/18 15:00 04/06/18 15:00 04/06/18 15:00 04/06/18 15:00 04/06/18 15:00 - Medications Medications: Current Medications Acetaminophen (Tylenol 325mg Tab) 650 mg PO Q6 PRN PRN Reason: Fever >100.4 F Last Admin: 04/06/18 05:56 Dose: 650 mg Acetylcysteine (Acetylcysteine 20%) 4 ml INH Q4H [facility] Last Admin: 04/06/18 15:38 Dose: 4 ml Albuterol/Ipratropium (Duoneb 3 Mg/0.5 Mg (3 Ml) Ud) 3 ml INH RQ4 [facility] Last Admin: 04/06/18 15:38 Dose: 3 ml Amlodipine Besylate (Norvasc) 10 mg PO DAILY [facility] Last Admin: 04/06/18 10:13 Dose: 10 mg Artificial Tears (Artificial Tears Refresh Celluvisc) 0 ml OU TID [facility] Last Admin: 04/06/18 17:00 Dose: Not Given Benzonatate (Tessalon Perles) 100 mg PO TID [facility] Last Admin: 04/06/18 16:59 Dose: 100 mg Calcium Acetate (Phoslo) 667 mg PO TID [facility] Last Admin: 04/06/18 16:59 Dose: 667 mg Dextrose (Dextrose 50% Inj) 0 ml IV STAT PRN; Protocol PRN Reason: Hypoglycemia Protocol Dextrose (Glutose 15) 0 gm PO ONCE PRN; Protocol PRN Reason: Hypoglycemia Protocol Docusate Sodium (Colace) 100 mg PO BID [facility] Last Admin: 04/06/18 16:59 Dose: 100 mg Enoxaparin Sodium (Lovenox) 30 mg SC DAILY [facility] Last Admin: 04/06/18 10:12 Dose: 30 mg Epoetin [place] (Procrit) 10,000 unit [place] [facility] Last Admin: 04/04/18 10:41 Dose: 10,000 unit Fluticasone Propionate (Flonase) 2 spr SANJEEV BID [facility] Last Admin: 04/06/18 17:00 Dose: Not Given Folic Acid (Folic Acid) 1 mg PO DAILY [facility] Last Admin: 04/06/18 11:00 Dose: Not Given Glucagon (Glucagen Diagnostic Kit) 0 mg IM STAT PRN; Protocol PRN Reason: Hypoglycemia Protocol Heparin Sodium (Porcine) (Heparin) 3,700 units IVP MWF [facility] Last Admin: 04/05/18 12:20 Dose: 3,700 units Hydralazine HCl (Apresoline) 25 mg PO BID [facility] Last Admin: 04/06/18 16:59 Dose: 25 mg Meropenem 500 mg/ Sodium (Chloride) 100 mls @ 100 mls/hr IVPB Q8H [facility]; Protocol Last Admin: 04/06/18 16:59 Dose: 100 mls/hr Insulin Human Regular (Novolin R) 0 unit SC ACHS [facility]; Protocol Last Admin: 04/06/18 12:54 Dose: 2 units Levothyroxine Sodium (Synthroid) 100 mcg PO DAILY@0630 [facility] Last Admin: 04/06/18 05:57 Dose: 100 mcg Metoprolol Succinate (Toprol Xl) 50 mg PO DAILY [facility] Last Admin: 04/06/18 10:13 Dose: 50 mg Phenylephrine HCl (Steve-Synephrine 0.25% Nasal [place]) 0 ml NS Q12H PRN PRN Reason: Nasal congestion Prasugrel (Effient) 10 mg PO DAILY [facility] Last Admin: 04/06/18 10:13 Dose: 10 mg Rosuvastatin Calcium (Crestor) 10 mg PO HS [facility] Last Admin: 04/05/18 21:35 Dose: 10 mg Saccharomyces Boulardii (Florastor) 250 mg PO BID [facility] Last Admin: 04/06/18 16:59 Dose: 250 mg Sitagliptin Phosphate (Januvia) 25 mg PO DAILY [facility] Last Admin: 04/06/18 10:13 Dose: 25 mg - Labs Labs: 04/06/18 07:15 04/06/18 07:15 PT 14.5 SECONDS (9.7-12.2) H 03/29/18 11:10 INR 1.3 03/29/18 11:10 APTT 36 SECONDS (21-34) H 03/29/18 11:10 Attending/Attestation - Attestation I have personally seen and examined this patient.: Yes I have fully participated in the care of the patient.: Yes I have reviewed all pertinent clinical information, including history, physical exam and plan: Yes Notes (Text): feeling much better after started on dialysis,eating good due to holidays she will start out pt dialysis on Monday continue dialysis assement and the plan discussed with the patient in detail discussed with the resident.I agree with the documentation
[2018-04-05 06:55] LABS: BASO % 0.2 % (0.0-2.0); EOS # 0.4 K/uL (0.0-0.7); EOS % 1.8 % (0.0-4.0); HEMOGLOBIN 9.5 g/dL (11.0-16.0); LYMPH # 2.6 K/uL (1.0-4.3); LYMPH % 12.6 % (20.0-40.0); MEAN CELL VOLUME 92.4 fL (81.0-99.0); MEAN CORPUSCULAR HEMOGLOBIN 30.7 pg (27.0-31.0); MEAN CORPUSCULAR HGB CONC 33.2 g/dL (33.0-37.0); MEAN PLATELET VOLUME 10.8 fL (7.2-11.7); MONO # 8.6 K/uL (0.0-0.8); MONO % 42.1 % (0.0-10.0); NEUT # 8.8 K/uL (1.8-7.0); NEUT % 43.3 % (50.0-75.0); NRBC % 0.6 % (0.0-2.0); PLATELET COUNT 54 K/uL (130-400); RBC 3.11 Mil/uL (3.80-5.20); RED CELL DISTRIBUTION WIDTH 17.5 % (11.5-14.5); WHITE BLOOD COUNT 20.4 K/uL (4.8-10.8)
[2018-04-05] MEDS: (Novolin R) Insulin Human Regular 100 units/ml vial SC SCH ×4 (07:59→21:34)
[2018-04-05 08:07] LABS: ALB/GLOB RATIO 0.7 (1.0-2.1); ALBUMIN 3.1 g/dL (3.5-5.0); CALCIUM 8.4 mg/dl (8.6-10.4)
--- NOTE | 2018-04-05 09:20 | CP.PCM.PN ---
Subjective - Date & Time of Evaluation Date of Evaluation: 04/05/18 Time of Evaluation: 09:18 - Subjective Subjective: Feels much better Much less dyspnea Stable dialysis course now oliguriic HTN sl elevated Objective - Vital Signs/Intake and Output Vital Signs (last 24 hours): Temp Pulse Resp BP Pulse Ox 98.1 F 91 H 20 161/68 H 96 04/05/18 08:11 04/05/18 08:11 04/05/18 08:11 04/05/18 08:11 04/05/18 08:11 - Medications Medications: Current Medications Acetaminophen (Tylenol 325mg Tab) 650 mg PO Q6 PRN PRN Reason: Fever >100.4 F Last Admin: 03/29/18 22:47 Dose: 650 mg Acetylcysteine (Acetylcysteine 20%) 4 ml INH Q4H [facility] Last Admin: 04/05/18 03:40 Dose: Not Given Albuterol/Ipratropium (Duoneb 3 Mg/0.5 Mg (3 Ml) Ud) 3 ml INH RQ4 [facility] Last Admin: 04/05/18 03:40 Dose: 3 ml Amlodipine Besylate (Norvasc) 10 mg PO DAILY [facility] Last Admin: 04/04/18 14:06 Dose: 10 mg Artificial Tears (Artificial Tears Refresh Celluvisc) 0 ml OU TID [facility] Last Admin: 04/04/18 17:54 Dose: 1 drop Benzonatate (Tessalon Perles) 100 mg PO TID [facility] Last Admin: 04/04/18 17:53 Dose: 100 mg Calcium Acetate (Phoslo) 667 mg PO TID [facility] Last Admin: 04/04/18 17:53 Dose: 667 mg Dextrose (Dextrose 50% Inj) 0 ml IV STAT PRN; Protocol PRN Reason: Hypoglycemia Protocol Dextrose (Glutose 15) 0 gm PO ONCE PRN; Protocol PRN Reason: Hypoglycemia Protocol Docusate Sodium (Colace) 100 mg PO BID [facility] Last Admin: 04/04/18 17:53 Dose: 100 mg Enoxaparin Sodium (Lovenox) 30 mg SC DAILY [facility] Last Admin: 04/03/18 09:11 Dose: 30 mg Epoetin Brandon (Procrit) 10,000 unit IV MWF [facility] Last Admin: 04/04/18 10:41 Dose: 10,000 unit Fluticasone Propionate (Flonase) 2 spr SANJEEV BID [facility] Last Admin: 04/04/18 17:54 Dose: 1 sprays Folic Acid (Folic Acid) 1 mg PO DAILY [facility] Last Admin: 04/04/18 14:06 Dose: 1 mg Furosemide (Lasix) 20 mg IVP Q12H [facility] Last Admin: 04/05/18 00:25 Dose: 20 mg Glucagon (Glucagen Diagnostic Kit) 0 mg IM STAT PRN; Protocol PRN Reason: Hypoglycemia Protocol Heparin Sodium (Porcine) (Heparin) 3,700 units IVP MWF [facility] Last Admin: 04/04/18 10:36 Dose: 3,700 units Meropenem 500 mg/ Sodium (Chloride) 100 mls @ 100 mls/hr IVPB Q8H [facility]; Protocol Last Admin: 04/05/18 00:32 Dose: 100 mls/hr Insulin Human Regular (Novolin R) 0 unit SC ACHS [facility]; Protocol Last Admin: 04/05/18 07:59 Dose: Not Given Levothyroxine Sodium (Synthroid) 100 mcg PO DAILY@0630 [facility] Last Admin: 04/05/18 06:01 Dose: 100 mcg Metoprolol Succinate (Toprol Xl) 25 mg PO DAILY [facility] Last Admin: 04/04/18 14:06 Dose: 25 mg Phenylephrine HCl (Steve-Synephrine 0.25% Nasal [place]) 0 ml NS Q12H PRN PRN Reason: Nasal congestion Prasugrel (Effient) 10 mg PO DAILY [facility] Last Admin: 04/04/18 14:05 Dose: 10 mg Rosuvastatin Calcium (Crestor) 10 mg PO HS [facility] Last Admin: 04/04/18 21:34 Dose: 10 mg Saccharomyces Boulardii (Florastor) 250 mg PO BID [facility] Last Admin: 04/04/18 17:53 Dose: 250 mg Sitagliptin Phosphate (Januvia) 25 mg PO DAILY [facility] Last Admin: 04/04/18 14:06 Dose: 25 mg - Labs Labs: 04/05/18 06:42 04/05/18 06:42 PT 14.5 SECONDS (9.7-12.2) H 03/29/18 11:10 INR 1.3 03/29/18 11:10 APTT 36 SECONDS (21-34) H 03/29/18 11:10 - Constitutional Appears: No Acute Distress, Chronically Ill - Head Exam Head Exam: ATRAUMATIC, NORMAL INSPECTION - Eye Exam Eye Exam: EOMI, Normal appearance - Neck Exam Neck Exam: Normal Inspection. absent: Tenderness - Respiratory Exam Respiratory Exam: Rhonchi, NORMAL BREATHING PATTERN - Cardiovascular Exam Cardiovascular Exam: REGULAR RHYTHM, +S1 - GI/Abdominal Exam GI & Abdominal Exam: Soft. absent: Tenderness - Extremities Exam Extremities Exam: Normal Inspection. absent: Tenderness - Neurological Exam Neurological Exam: Awake, CN II-XII Intact - Skin Skin Exam: Dry, Warm Assessment and Plan (1) CKD (chronic kidney disease) stage 5, GFR less than 15 ml/min Status: Acute (2) CHF (congestive heart failure) Status: Acute (3) CMML (chronic myelomonocytic leukemia) Status: Acute (4) Chronic anemia Status: Acute (5) ESRD (end stage renal disease) Status: Acute - Assessment and Plan (Free Text) Plan: Check ferritin Same dialysis course Stop lasix BP med adjustments Await HD placement
[2018-04-05 09:29] LABS: BANDS 2 % (0-2); EOSINOPHIL 3 % (0-4); LYMPHOCYTE 17 % (20-40); MONOCYTE 44 % (0-10); NEUTROPHIL 34 % (50-75); PLATELET ESTIMATE DECREASED (NORMAL); TOTAL CELLS COUNTED 100
[2018-04-05 09:30] LABS: ANISOCYTOSIS MODERATE; HYPOCHROMIC SLIGHT; POLYCHROMIC SLIGHT; TOXIC GRANULATION PRESENT
[2018-04-05 09:31] LABS: LARGE PLATELETS PRESENT
[2018-04-05] MEDS: Saccharomyces Boulardi 250 mg Cap PO SCH ×2 (09:50→18:06)
[2018-04-05] MEDS: Fluticasone Nasal 50 mcg/Spray NAS SCH ×2 (09:50→18:06)
[2018-04-05] MEDS: Metoprolol Succinate 50 mg XL Tab PO SCH (09:52)
[2018-04-05] MEDS: Enoxaparin 30 mg Syringe SC SCH (09:57)
[2018-04-05] MEDS: Carboxymethylcellulose 1% Ophth Soln OU SCH ×3 (09:57→18:05)
[2018-04-06] MEDS: Albuterol-Ipratrop 3 mg / 0.5 (3 ml) UD INH SCH ×6 (00:41→19:37)
[2018-04-06] MEDS: Acetylcysteine 20% Inhal Soln (4ml) INH SCH ×6 (00:41→19:37)
[2018-04-06] MEDS: Meropenem 500 MG in Sodium Chloride 0.9% 100 ML IVPB SCH ×3 (01:05→16:59)
[2018-04-06] MEDS: Levothyroxine 100 MCG TAB PO SCH (05:57)
[2018-04-06 07:28] LABS: BASO # 0.1 K/uL (0.0-0.2); BASO % 0.5 % (0.0-2.0); EOS # 0.4 K/uL (0.0-0.7); EOS % 2.3 % (0.0-4.0); HEMOGLOBIN 9.7 g/dL (11.0-16.0); LYMPH # 2.4 K/uL (1.0-4.3); LYMPH % 13.4 % (20.0-40.0); MEAN CELL VOLUME 93.2 fL (81.0-99.0); MEAN CORPUSCULAR HEMOGLOBIN 30.7 pg (27.0-31.0); MEAN CORPUSCULAR HGB CONC 32.9 g/dL (33.0-37.0); MEAN PLATELET VOLUME 10.5 fL (7.2-11.7); MONO # 7.8 K/uL (0.0-0.8); MONO % 43.5 % (0.0-10.0); NEUT # 7.2 K/uL (1.8-7.0); NEUT % 40.3 % (50.0-75.0); NRBC % 0.1 % (0.0-2.0); PLATELET COUNT 67 K/uL (130-400); RBC 3.16 Mil/uL (3.80-5.20); RED CELL DISTRIBUTION WIDTH 17.8 % (11.5-14.5); WHITE BLOOD COUNT 17.8 K/uL (4.8-10.8)
--- NOTE | 2018-04-06 07:39 | CP.PCM.PN ---
Subjective - Date & Time of Evaluation Date of Evaluation: 04/06/18 Time of Evaluation: 11:15 - Subjective Subjective: PGY 1 Medicine Progress note for Dr. Hammer. Patient seen and examined at bedside. No overnight events reported. Patient lying in bed comfortably with daughter at beside. Patient has no current complaints. Patient denies chest pain, SOB, abdominal pain, nausea, vominting, dysuria, hematuria. Patient had dialysis session yesterday 04/05/18 to convert from MWF schedule to [facility] for outpatient dialysis center placement at [facility]. Jeremiah peres currently scheduled for dialysis tomorrow 04/06 inpatient adn then discharge with TTHS f/u at [facility]. Objective - Vital Signs/Intake and Output Vital Signs (last 24 hours): Temp Pulse Resp BP Pulse Ox 98.3 F 82 18 182/66 H 95 04/05/18 23:30 04/05/18 23:30 04/05/18 23:30 04/05/18 23:30 04/05/18 23:30 - Medications Medications: Current Medications Acetaminophen (Tylenol 325mg Tab) 650 mg PO Q6 PRN PRN Reason: Fever >100.4 F Last Admin: 04/06/18 05:56 Dose: 650 mg Acetylcysteine (Acetylcysteine 20%) 4 ml INH Q4H [facility] Last Admin: 04/06/18 07:30 Dose: 4 ml Albuterol/Ipratropium (Duoneb 3 Mg/0.5 Mg (3 Ml) Ud) 3 ml INH RQ4 [facility] Last Admin: 04/06/18 07:30 Dose: 3 ml Amlodipine Besylate (Norvasc) 10 mg PO DAILY [facility] Last Admin: 04/05/18 09:51 Dose: 10 mg Artificial Tears (Artificial Tears Refresh Celluvisc) 0 ml OU TID [facility] Last Admin: 04/05/18 18:05 Dose: 1 drop Benzonatate (Tessalon Perles) 100 mg PO TID [facility] Last Admin: 04/05/18 18:06 Dose: 100 mg Calcium Acetate (Phoslo) 667 mg PO TID [facility] Last Admin: 04/05/18 18:06 Dose: 667 mg Dextrose (Dextrose 50% Inj) 0 ml IV STAT PRN; Protocol PRN Reason: Hypoglycemia Protocol Dextrose (Glutose 15) 0 gm PO ONCE PRN; Protocol PRN Reason: Hypoglycemia Protocol Docusate Sodium (Colace) 100 mg PO BID [facility] Last Admin: 04/05/18 18:06 Dose: 100 mg Enoxaparin Sodium (Lovenox) 30 mg SC DAILY [facility] Last Admin: 04/05/18 09:57 Dose: 30 mg Epoetin Brandon (Procrit) 10,000 unit IV F [facility] Last Admin: 04/04/18 10:41 Dose: 10,000 unit Fluticasone Propionate (Flonase) 2 spr SANJEEV BID [facility] Last Admin: 04/05/18 18:06 Dose: Not Given Folic Acid (Folic Acid) 1 mg PO DAILY [facility] Last Admin: 04/05/18 09:51 Dose: 1 mg Glucagon (Glucagen Diagnostic Kit) 0 mg IM STAT PRN; Protocol PRN Reason: Hypoglycemia Protocol Heparin Sodium (Porcine) (Heparin) 3,700 units IVP [facility] Last Admin: 04/05/18 12:20 Dose: 3,700 units Meropenem 500 mg/ Sodium (Chloride) 100 mls @ 100 mls/hr IVPB Q8H [facility]; Protocol Last Admin: 04/06/18 01:05 Dose: 100 mls/hr Insulin Human Regular (Novolin R) 0 unit SC [facility]; Protocol Last Admin: 04/05/18 21:34 Dose: Not Given Levothyroxine Sodium (Synthroid) 100 mcg PO DAILY@0630 [facility] Last Admin: 04/06/18 05:57 Dose: 100 mcg Metoprolol Succinate (Toprol Xl) 50 mg PO DAILY [facility] Last Admin: 04/05/18 09:52 Dose: 50 mg Phenylephrine HCl (Steve-Synephrine 0.25% Nasal [place]) 0 ml NS Q12H PRN PRN Reason: Nasal congestion Prasugrel (Effient) 10 mg PO DAILY [facility] Last Admin: 04/05/18 09:50 Dose: 10 mg Rosuvastatin Calcium (Crestor) 10 mg PO HS [facility] Last Admin: 04/05/18 21:35 Dose: 10 mg Saccharomyces Boulardii (Florastor) 250 mg PO BID [facility] Last Admin: 04/05/18 18:06 Dose: 250 mg Sitagliptin Phosphate (Januvia) 25 mg PO DAILY [facility] Last Admin: 04/05/18 09:51 Dose: 25 mg - Labs Labs: 04/06/18 07:15 04/05/18 06:42 PT 14.5 SECONDS (9.7-12.2) H 03/29/18 11:10 INR 1.3 03/29/18 11:10 APTT 36 SECONDS (21-34) H 03/29/18 11:10 - Constitutional Appears: Non-toxic, No Acute Distress - Head Exam Head Exam: ATRAUMATIC, NORMAL INSPECTION, NORMOCEPHALIC - Eye Exam Eye Exam: EOMI, Normal appearance - ENT Exam ENT Exam: Mucous Membranes Moist - Respiratory Exam Respiratory Exam: Clear to Ausculation Bilateral, NORMAL BREATHING PATTERN. absent: Rales, Rhonchi, Wheezes - Cardiovascular Exam Cardiovascular Exam: +S1, +S2, Murmur - GI/Abdominal Exam GI & Abdominal Exam: Soft, Normal Bowel Sounds. absent: Firm, Guarding, Rigid - Extremities Exam Extremities Exam: Full ROM, Normal Inspection. absent: Calf Tenderness, Pedal Edema - Back Exam Back Exam: absent: CVA tenderness (L), CVA tenderness (R) - Neurological Exam Neurological Exam: Alert, Awake, Oriented x3 - Psychiatric Exam Psychiatric exam: Normal Affect, Normal Mood - Skin Skin Exam: Dry, Intact, Normal Color, Warm Additional comments: RIJ permacath placement, dressing clean, dry, intact Assessment and Plan - Assessment and Plan (Free Text) Assessment: 82 year old female with a PMHx of COPD, PVD CHF (w/ preserved EF), HTN, Myelodysplastic Syndrome, HLD, CKD, Hypothyrodism, and Pneumonia admitted for evaluation and treatment of hospital acquired pneumonia. CT scan on admission s howed small b/l pleural effusions. s/p L thoracentesis (03/26). Plan: Healthcare associated pneumonia w/ Pleural Effusion Resolved 03-24 Cxray- large effusion and atelectasis. progression of infiltrate changes right mid to lower lung field [address]- moderately large left-sided effusion with left lower lobe atelectasis. Small right sided effusion and minor right basilar atelectasis Increasing pulmonary edema warranted Pulm Consult, Dr. Hernandez, and Infectious Disease Consult, Dr. Rodriguez. IR Consulted- Dr. Longoria- thoracentesis- 500cc fluid removed with fluid studies BiPap at night PNA studies negative; Blood and Sputum cultures negative MucoMyst q4h chichi Duonebs q4h chichi Tessalon Perles 100mg po tid Meropenem and Vancomycin Tylenol 650mg prn Lasix 20mg IV bid Diastolic congestive heart failure 03-04-18 Echo:Grade II Pseudonormal filling dynamics, mild Pulml HTN, 60-65% EF EKG : NSR @ 92 BPM, No acute ST/T wave changes. BNP on Admission - 8470. CXR on Admission shows Pulm Congestion Lasix 20mg IV bid Metoprolol 25mg po daily Fluid/Salt restriction Monitor Is/Os ESRD CKD (Stage 5) with dialysis through catheter Vascular surgery- Dr. Lindquist- right chest permacath placed on 03/29, Due to have vein mapping for AV fisutal as per surgery team 2 units of pRBCs have been transfused Patient hemodynamically stable Phoslo 667 mg po tid Procrit 44788 units IV MWF HTN Amlodipine 10mg po daily Lasix 20mg IVP bid Lopressor 25mg po dialy Coronary artery disease Rosuvastatin 10mg po HS Tricor 48mg po daily chichi DM2 ISS Januvia 25mg po daily [place] Hypothyroidism Synthroid 100mcg po daily chichi Constipation 1x miralax Colace 100mg po bid PPX DVT ppx: Lovenox 30mg sc daily chichi GI ppx: Florastor 250mg po bid [place] Disposition: Patient cleared with [place] to restart HD next week (04/10/18) with TTHS schedule. PT recs d/c home with services, social services counselor aware and script provided to social services counselor for arrangements. Patient will be discharged after Monday dialysis session.
[2018-04-06 07:56] LABS: ALB/GLOB RATIO 0.7 (1.0-2.1); ALBUMIN 3.2 g/dL (3.5-5.0); CALCIUM 8.3 mg/dl (8.6-10.4)
[2018-04-06] MEDS: (Novolin R) Insulin Human Regular 100 units/ml vial SC SCH ×3 (08:15→16:30)
[2018-04-06 09:03] LABS: BANDS 3 % (0-2); EOSINOPHIL 4 % (0-4); LYMPHOCYTE 8 % (20-40); MONOCYTE 33 % (0-10); NEUTROPHIL 52 % (50-75); PLATELET ESTIMATE DECREASED (NORMAL); TOTAL CELLS COUNTED 100
[2018-04-06 09:04] LABS: ANISOCYTOSIS SLIGHT; HYPOCHROMIC SLIGHT; POLYCHROMIC SLIGHT
[2018-04-06] MEDS: Enoxaparin 30 mg Syringe SC SCH (10:12)
[2018-04-06] MEDS: Saccharomyces Boulardi 250 mg Cap PO SCH ×2 (10:13→16:59)
[2018-04-06] MEDS: Metoprolol Succinate 50 mg XL Tab PO SCH (10:13)
[2018-04-06] MEDS: Carboxymethylcellulose 1% Ophth Soln OU SCH ×3 (10:14→17:00)
[2018-04-06] MEDS: Fluticasone Nasal 50 mcg/Spray NAS SCH ×2 (10:14→17:00)
--- NOTE | 2018-04-06 10:44 | CP.PCM.PN ---
Subjective - Date & Time of Evaluation Date of Evaluation: 04/06/18 Time of Evaluation: 10:41 - Subjective Subjective: Stable HD 04/05 Feels much better BP elevated No other new complaint- much less dyspneic Objective - Vital Signs/Intake and Output Vital Signs (last 24 hours): Temp Pulse Resp BP Pulse Ox 98.1 F 79 20 182/80 H 100 04/06/18 07:58 04/06/18 07:58 04/06/18 07:58 04/06/18 07:58 04/06/18 07:58 - Medications Medications: Current Medications Acetaminophen (Tylenol 325mg Tab) 650 mg PO Q6 PRN PRN Reason: Fever >100.4 F Last Admin: 04/06/18 05:56 Dose: 650 mg Acetylcysteine (Acetylcysteine 20%) 4 ml INH Q4H [facility] Last Admin: 04/06/18 07:30 Dose: 4 ml Albuterol/Ipratropium (Duoneb 3 Mg/0.5 Mg (3 Ml) Ud) 3 ml INH RQ4 [facility] Last Admin: 04/06/18 07:30 Dose: 3 ml Amlodipine Besylate (Norvasc) 10 mg PO DAILY [facility] Last Admin: 04/06/18 10:13 Dose: 10 mg Artificial Tears (Artificial Tears Refresh Celluvisc) 0 ml OU TID [facility] Last Admin: 04/06/18 10:14 Dose: 1 drop Benzonatate (Tessalon Perles) 100 mg PO TID [facility] Last Admin: 04/06/18 10:13 Dose: 100 mg Calcium Acetate (Phoslo) 667 mg PO TID [facility] Last Admin: 04/06/18 10:13 Dose: 667 mg Dextrose (Dextrose 50% Inj) 0 ml IV STAT PRN; Protocol PRN Reason: Hypoglycemia Protocol Dextrose (Glutose 15) 0 gm PO ONCE PRN; Protocol PRN Reason: Hypoglycemia Protocol Docusate Sodium (Colace) 100 mg PO BID [facility] Last Admin: 04/06/18 10:13 Dose: 100 mg Enoxaparin Sodium (Lovenox) 30 mg SC DAILY [facility] Last Admin: 04/06/18 10:12 Dose: 30 mg Epoetin Brandon (Procrit) 10,000 unit IV MWF [facility] Last Admin: 04/04/18 10:41 Dose: 10,000 unit Fluticasone Propionate (Flonase) 2 spr SANJEEV BID [facility] Last Admin: 04/06/18 10:14 Dose: 1 sprays Folic Acid (Folic Acid) 1 mg PO DAILY [facility] Last Admin: 04/05/18 09:51 Dose: 1 mg Glucagon (Glucagen Diagnostic Kit) 0 mg IM STAT PRN; Protocol PRN Reason: Hypoglycemia Protocol Heparin Sodium (Porcine) (Heparin) 3,700 units IVP MWF [facility] Last Admin: 04/05/18 12:20 Dose: 3,700 units Hydralazine HCl (Apresoline) 25 mg PO BID [facility] Meropenem 500 mg/ Sodium (Chloride) 100 mls @ 100 mls/hr IVPB Q8H [facility]; Protocol Last Admin: 04/06/18 10:11 Dose: 100 mls/hr Insulin Human Regular (Novolin R) 0 unit SC ACHS [facility]; Protocol Last Admin: 04/06/18 08:15 Dose: Not Given Levothyroxine Sodium (Synthroid) 100 mcg PO DAILY@0630 [facility] Last Admin: 04/06/18 05:57 Dose: 100 mcg Metoprolol Succinate (Toprol Xl) 50 mg PO DAILY [facility] Last Admin: 04/06/18 10:13 Dose: 50 mg Phenylephrine HCl (Steve-Synephrine 0.25% Nasal [place]) 0 ml NS Q12H PRN PRN Reason: Nasal congestion Prasugrel (Effient) 10 mg PO DAILY [facility] Last Admin: 04/06/18 10:13 Dose: 10 mg Rosuvastatin Calcium (Crestor) 10 mg PO HS [facility] Last Admin: 04/05/18 21:35 Dose: 10 mg Saccharomyces Boulardii (Florastor) 250 mg PO BID [facility] Last Admin: 04/06/18 10:13 Dose: 250 mg Sitagliptin Phosphate (Januvia) 25 mg PO DAILY [facility] Last Admin: 04/06/18 10:13 Dose: 25 mg - Labs Labs: 04/06/18 07:15 04/06/18 07:15 PT 14.5 SECONDS (9.7-12.2) H 03/29/18 11:10 INR 1.3 03/29/18 11:10 APTT 36 SECONDS (21-34) H 03/29/18 11:10 - Constitutional Appears: No Acute Distress, Chronically Ill - Head Exam Head Exam: ATRAUMATIC, NORMAL INSPECTION - Eye Exam Eye Exam: EOMI, Normal appearance - Neck Exam Neck Exam: Normal Inspection. absent: Tenderness - Respiratory Exam Respiratory Exam: Rhonchi, NORMAL BREATHING PATTERN - Cardiovascular Exam Cardiovascular Exam: REGULAR RHYTHM, +S1 - GI/Abdominal Exam GI & Abdominal Exam: Soft. absent: Tenderness - Extremities Exam Extremities Exam: Normal Inspection. absent: Tenderness - Neurological Exam Neurological Exam: Awake, CN II-XII Intact - Skin Skin Exam: Dry, Warm Assessment and Plan (1) CKD (chronic kidney disease) stage 5, GFR less than 15 ml/min Status: Acute (2) CHF (congestive heart failure) Status: Acute (3) CMML (chronic myelomonocytic leukemia) Status: Acute (4) Chronic anemia Status: Acute (5) ESRD (end stage renal disease) Status: Acute - Assessment and Plan (Free Text) Plan: Increase BP meds Dialysis in AM awaiting HD placement needs AV access
--- NOTE | 2018-04-06 15:30 | CP.PCM.PN ---
Subjective - Date & Time of Evaluation Date of Evaluation: 04/06/18 Time of Evaluation: 15:29 - Subjective Subjective: Pt is seen and examined No events overnight Objective - Vital Signs/Intake and Output Vital Signs (last 24 hours): Temp Pulse Resp BP Pulse Ox 98.1 F 79 20 182/80 H 100 04/06/18 07:58 04/06/18 07:58 04/06/18 07:58 04/06/18 07:58 04/06/18 07:58 - Medications Medications: Current Medications Acetaminophen (Tylenol 325mg Tab) 650 mg PO Q6 PRN PRN Reason: Fever >100.4 F Last Admin: 04/06/18 05:56 Dose: 650 mg Acetylcysteine (Acetylcysteine 20%) 4 ml INH Q4H [facility] Last Admin: 04/06/18 11:26 Dose: Not Given Albuterol/Ipratropium (Duoneb 3 Mg/0.5 Mg (3 Ml) Ud) 3 ml INH RQ4 [facility] Last Admin: 04/06/18 11:26 Dose: Not Given Amlodipine Besylate (Norvasc) 10 mg PO DAILY [facility] Last Admin: 04/06/18 10:13 Dose: 10 mg Artificial Tears (Artificial Tears Refresh Celluvisc) 0 ml OU TID [facility] Last Admin: 04/06/18 14:44 Dose: Not Given Benzonatate (Tessalon Perles) 100 mg PO TID [facility] Last Admin: 04/06/18 14:41 Dose: 100 mg Calcium Acetate (Phoslo) 667 mg PO TID [facility] Last Admin: 04/06/18 14:41 Dose: 667 mg Dextrose (Dextrose 50% Inj) 0 ml IV STAT PRN; Protocol PRN Reason: Hypoglycemia Protocol Dextrose (Glutose 15) 0 gm PO ONCE PRN; Protocol PRN Reason: Hypoglycemia Protocol Docusate Sodium (Colace) 100 mg PO BID [facility] Last Admin: 04/06/18 10:13 Dose: 100 mg Enoxaparin Sodium (Lovenox) 30 mg SC DAILY [facility] Last Admin: 04/06/18 10:12 Dose: 30 mg Epoetin Brandon (Procrit) 10,000 unit IV MWF [facility] Last Admin: 04/04/18 10:41 Dose: 10,000 unit Fluticasone Propionate (Flonase) 2 spr SANJEEV BID [facility] Last Admin: 04/06/18 10:14 Dose: 1 sprays Folic Acid (Folic Acid) 1 mg PO DAILY [facility] Last Admin: 04/06/18 11:00 Dose: Not Given Glucagon (Glucagen Diagnostic Kit) 0 mg IM STAT PRN; Protocol PRN Reason: Hypoglycemia Protocol Heparin Sodium (Porcine) (Heparin) 3,700 units IVP MWF [facility] Last Admin: 04/05/18 12:20 Dose: 3,700 units Hydralazine HCl (Apresoline) 25 mg PO BID [facility] Meropenem 500 mg/ Sodium (Chloride) 100 mls @ 100 mls/hr IVPB Q8H [facility]; Protocol Last Admin: 04/06/18 10:11 Dose: 100 mls/hr Insulin Human Regular (Novolin R) 0 unit SC ACHS [facility]; Protocol Last Admin: 04/06/18 12:54 Dose: 2 units Levothyroxine Sodium (Synthroid) 100 mcg PO DAILY@0630 [facility] Last Admin: 04/06/18 05:57 Dose: 100 mcg Metoprolol Succinate (Toprol Xl) 50 mg PO DAILY [facility] Last Admin: 04/06/18 10:13 Dose: 50 mg Phenylephrine HCl (Steve-Synephrine 0.25% Nasal [place]) 0 ml NS Q12H PRN PRN Reason: Nasal congestion Prasugrel (Effient) 10 mg PO DAILY [facility] Last Admin: 04/06/18 10:13 Dose: 10 mg Rosuvastatin Calcium (Crestor) 10 mg PO HS [facility] Last Admin: 04/05/18 21:35 Dose: 10 mg Saccharomyces Boulardii (Florastor) 250 mg PO BID [facility] Last Admin: 04/06/18 10:13 Dose: 250 mg Sitagliptin Phosphate (Januvia) 25 mg PO DAILY [facility] Last Admin: 04/06/18 10:13 Dose: 25 mg - Labs Labs: 04/06/18 07:15 04/06/18 07:15 PT 14.5 SECONDS (9.7-12.2) H 03/29/18 11:10 INR 1.3 03/29/18 11:10 APTT 36 SECONDS (21-34) H 03/29/18 11:10 - Head Exam Head Exam: NORMAL INSPECTION - Eye Exam Eye Exam: Normal appearance - ENT Exam ENT Exam: Mucous Membranes Moist - Respiratory Exam Respiratory Exam: Clear to Ausculation Bilateral - Cardiovascular Exam Cardiovascular Exam: REGULAR RHYTHM - GI/Abdominal Exam GI & Abdominal Exam: Soft, Normal Bowel Sounds - Extremities Exam Extremities Exam: Normal Inspection Assessment and Plan (1) CHF (congestive heart failure) Status: Acute (2) CKD (chronic kidney disease) stage 5, GFR less than 15 ml/min Status: Acute (3) Pleural effusion Status: Acute (4) COPD (chronic obstructive pulmonary disease) Status: Acute (5) Diabetes Status: Acute (6) Pneumonia Status: Acute - Assessment and Plan (Free Text) Plan: Bronchodilators Awaiting HD placement Supportive care
[2018-04-07] MEDS: (Novolin R) Insulin Human Regular 100 units/ml vial SC SCH ×2 (00:07→07:18)
[2018-04-07] MEDS: Albuterol-Ipratrop 3 mg / 0.5 (3 ml) UD INH SCH ×3 (00:29→11:31)
[2018-04-07] MEDS: Acetylcysteine 20% Inhal Soln (4ml) INH SCH ×3 (00:29→11:31)
[2018-04-07] MEDS: Levothyroxine 100 MCG TAB PO SCH (05:50)
[2018-04-07 07:55] LABS: BASO # 0.1 K/uL (0.0-0.2); BASO % 0.5 % (0.0-2.0); EOS # 0.4 K/uL (0.0-0.7); EOS % 3.1 % (0.0-4.0); HEMOGLOBIN 9.6 g/dL (11.0-16.0); LYMPH # 2.3 K/uL (1.0-4.3); LYMPH % 16.3 % (20.0-40.0); MEAN CELL VOLUME 93.5 fL (81.0-99.0); MEAN CORPUSCULAR HGB CONC 33.2 g/dL (33.0-37.0); MEAN PLATELET VOLUME 10.5 fL (7.2-11.7); MONO # 6.1 K/uL (0.0-0.8); MONO % 43.3 % (0.0-10.0); NEUT # 5.2 K/uL (1.8-7.0); NEUT % 36.8 % (50.0-75.0); NRBC % 0.1 % (0.0-2.0); PLATELET COUNT 74 K/uL (130-400); RBC 3.11 Mil/uL (3.80-5.20); RED CELL DISTRIBUTION WIDTH 17.6 % (11.5-14.5); WHITE BLOOD COUNT 14.1 K/uL (4.8-10.8)
[2018-04-07 08:33] LABS: ALB/GLOB RATIO 0.7 (1.0-2.1); ALBUMIN 3.1 g/dL (3.5-5.0); CALCIUM 8.6 mg/dl (8.6-10.4)
[2018-04-07] MEDS: Carboxymethylcellulose 1% Ophth Soln OU SCH (10:37)
[2018-04-07] MEDS: Saccharomyces Boulardi 250 mg Cap PO SCH (10:40)
[2018-04-07] MEDS: Fluticasone Nasal 50 mcg/Spray NAS SCH (10:40)
[2018-04-07 10:57] LABS: EOSINOPHIL 4 % (0-4); LYMPHOCYTE 10 % (20-40); MONOCYTE 46 % (0-10); NEUTROPHIL 40 % (50-75); PLATELET ESTIMATE DECREASED (NORMAL); TOTAL CELLS COUNTED 100
[2018-04-07 10:58] LABS: ANISOCYTOSIS SLIGHT; HYPOCHROMIC SLIGHT; POLYCHROMIC SLIGHT
--- NOTE | 2018-04-07 11:08 | CP.PCM.PN ---
Subjective - Date & Time of Evaluation Date of Evaluation: 04/07/18 Time of Evaluation: 11:07 - Subjective Subjective: on HD 2.5 kg uf breathing comfortable no chest pain chronic sob no fever no abdominal pain no vomiting no rash no headache no arthralgias no sinus tenderness Objective - Vital Signs/Intake and Output Vital Signs (last 24 hours): Temp Pulse Resp BP Pulse Ox 98.4 F 81 16 139/55 L 93 L 04/07/18 09:45 04/07/18 10:30 04/07/18 10:30 04/07/18 10:30 04/07/18 10:30 - Medications Medications: Current Medications Acetaminophen (Tylenol 325mg Tab) 650 mg PO Q6 PRN PRN Reason: Fever >100.4 F Last Admin: 04/06/18 05:56 Dose: 650 mg Acetylcysteine (Acetylcysteine 20%) 4 ml INH Q4H [facility] Last Admin: 04/07/18 08:00 Dose: 4 ml Albuterol/Ipratropium (Duoneb 3 Mg/0.5 Mg (3 Ml) Ud) 3 ml INH RQ4 [facility] Last Admin: 04/07/18 08:00 Dose: 3 ml Amlodipine Besylate (Norvasc) 10 mg PO DAILY [facility] Last Admin: 04/06/18 10:13 Dose: 10 mg Artificial Tears (Artificial Tears Refresh Celluvisc) 0 ml OU TID [facility] Last Admin: 04/07/18 10:37 Dose: Not Given Benzonatate (Tessalon Perles) 100 mg PO TID [facility] Last Admin: 04/07/18 10:49 Dose: Not Given Calcium Acetate (Phoslo) 667 mg PO TID [facility] Last Admin: 04/07/18 10:48 Dose: Not Given Dextrose (Dextrose 50% Inj) 0 ml IV STAT PRN; Protocol PRN Reason: Hypoglycemia Protocol Dextrose (Glutose 15) 0 gm PO ONCE PRN; Protocol PRN Reason: Hypoglycemia Protocol Docusate Sodium (Colace) 100 mg PO BID [facility] Last Admin: 04/07/18 10:37 Dose: Not Given Enoxaparin Sodium (Lovenox) 30 mg SC DAILY [facility] Last Admin: 04/06/18 10:12 Dose: 30 mg Epoetin Brandon (Procrit) 10,000 unit IV MWF [facility] Last Admin: 04/04/18 10:41 Dose: 10,000 unit Fluticasone Propionate (Flonase) 2 spr SANJEEV BID [facility] Last Admin: 04/07/18 10:40 Dose: Not Given Folic Acid (Folic Acid) 1 mg PO DAILY [facility] Last Admin: 04/07/18 10:40 Dose: Not Given Glucagon (Glucagen Diagnostic Kit) 0 mg IM STAT PRN; Protocol PRN Reason: Hypoglycemia Protocol Heparin Sodium (Porcine) (Heparin) 3,700 units IVP MWF [facility] Last Admin: 04/05/18 12:20 Dose: 3,700 units Hydralazine HCl (Apresoline) 25 mg PO BID [facility] Last Admin: 04/07/18 10:37 Dose: Not Given Insulin Human Regular (Novolin R) 0 unit SC ACHS [facility]; Protocol Last Admin: 04/07/18 07:18 Dose: Not Given Levothyroxine Sodium (Synthroid) 100 mcg PO DAILY@0630 [facility] Last Admin: 04/07/18 05:50 Dose: 100 mcg Metoprolol Succinate (Toprol Xl) 50 mg PO DAILY [facility] Last Admin: 04/06/18 10:13 Dose: 50 mg Phenylephrine HCl (Steve-Synephrine 0.25% Nasal Machias) 0 ml NS Q12H PRN PRN Reason: Nasal congestion Prasugrel (Effient) 10 mg PO DAILY [facility] Last Admin: 04/06/18 10:13 Dose: 10 mg Rosuvastatin Calcium (Crestor) 10 mg PO HS [facility] Last Admin: 04/06/18 21:09 Dose: 10 mg Saccharomyces Boulardii (Florastor) 250 mg PO BID [facility] Last Admin: 04/07/18 10:40 Dose: Not Given Sitagliptin Phosphate (Januvia) 25 mg PO DAILY [facility] Last Admin: 04/06/18 10:13 Dose: 25 mg - Labs Labs: 04/07/18 07:33 04/07/18 07:33 PT 14.5 SECONDS (9.7-12.2) H 03/29/18 11:10 INR 1.3 03/29/18 11:10 APTT 36 SECONDS (21-34) H 03/29/18 11:10 - Constitutional Appears: Non-toxic, Chronically Ill - Head Exam Head Exam: ATRAUMATIC - Eye Exam Eye Exam: EOMI, Normal appearance - ENT Exam ENT Exam: Mucous Membranes Moist - Neck Exam Neck Exam: Full ROM. absent: Lymphadenopathy - Respiratory Exam Respiratory Exam: Decreased Breath Sounds, Rhonchi - Cardiovascular Exam Cardiovascular Exam: REGULAR RHYTHM. absent: Rubs - Extremities Exam Extremities Exam: absent: Pedal Edema - Neurological Exam Neurological Exam: Alert, Oriented x3 Assessment and Plan - Assessment and Plan (Free Text) Assessment: continue HD for disposition to unit
[2018-04-07] MEDS ORDERED: Epoetin Alfa 10,000 unit/ml Dialysis IV SCH (11:42)
--- NOTE | 2018-04-07 13:16 | CP.PCM.DIS ---
Provider - Provider Date of Admission: 03/24/18 08:46 Attending physician: Reji Reyes DO Time Spent in preparation of Discharge (in minutes): 45 Hospital Course - Lab Results Lab Results: Micro Results 03/26/18 14:00 Other: Please Indicate Gram Stain - Final 03/26/18 14:00 Other: Please Indicate Body Fluid Culture - Final No growth. 03/24/18 12:30 Blood Blood Culture - Final NO GROWTH AFTER 5 DAYS 03/24/18 12:30 Blood Gram Stain - Final TEST NOT PERFORMED 03/24/18 12:00 Blood Blood Culture - Final NO GROWTH AFTER 5 DAYS 03/24/18 12:00 Blood Gram Stain - Final TEST NOT PERFORMED 03/24/18 16:44 Sputum Gram Stain - Final 03/24/18 16:44 Sputum Sputum Culture - Final NORMAL ORAL THIERRY 03/25/18 05:41 Urine,Clean Catch Urine Culture - Final No Growth (<1,000 CFU/ML) Most Recent Lab Values WBC 14.1 K/uL (4.8-10.8) H 04/07/18 07:33 RBC 3.11 Mil/uL (3.80-5.20) L 04/07/18 07:33 Hgb 9.6 g/dL (11.0-16.0) L 04/07/18 07:33 Hct 29.1 % (34.0-47.0) L 04/07/18 07:33 MCV 93.5 fL (81.0-99.0) 04/07/18 07:33 MCH 31.0 pg (27.0-31.0) 04/07/18 07:33 MCHC 33.2 g/dL (33.0-37.0) 04/07/18 07:33 RDW 17.6 % (11.5-14.5) H 04/07/18 07:33 Plt Count 74 K/uL (130-400) L 04/07/18 07:33 MPV 10.5 fL (7.2-11.7) 04/07/18 07:33 Neut % (Auto) 36.8 % (50.0-75.0) L 04/07/18 07:33 Lymph % (Auto) 16.3 % (20.0-40.0) L 04/07/18 07:33 [place] % (Auto) 43.3 % (0.0-10.0) H 04/07/18 07:33 Eos % (Auto) 3.1 % (0.0-4.0) 04/07/18 07:33 Baso % (Auto) 0.5 % (0.0-2.0) 04/07/18 07:33 Neut # (Auto) 5.2 K/uL (1.8-7.0) 04/07/18 07:33 Lymph # (Auto) 2.3 K/uL (1.0-4.3) 04/07/18 07:33 [place] # (Auto) 6.1 K/uL (0.0-0.8) H 04/07/18 07:33 Eos # (Auto) 0.4 K/uL (0.0-0.7) 04/07/18 07:33 Baso # (Auto) 0.1 K/uL (0.0-0.2) 04/07/18 07:33 Neutrophils % (Manual) 40 % (50-75) L 04/07/18 07:33 Band Neutrophils % 3 % (0-2) H 04/06/18 07:15 Lymphocytes % (Manual) 10 % (20-40) L 04/07/18 07:33 Reactive Lymphs % 1 % (0-0) H 04/01/18 07:23 Monocytes % (Manual) 46 % (0-10) H 04/07/18 07:33 Eosinophils % (Manual) 4 % (0-4) 04/07/18 07:33 Basophils % (Manual) 1 % (0-2) 04/02/18 08:41 Metamyelocytes % 1 % (0-0) H 04/01/18 07:23 Myelocytes % 1 % (0-0) H 04/04/18 09:42 Nucleated RBC % 1 % (0-0) H 04/04/18 09:42 Toxic Granulation Present 04/05/18 06:42 Platelet Estimate Decreased (NORMAL) L 04/07/18 07:33 Large Platelets Present 04/05/18 06:42 Giant Platelets Present 03/25/18 08:47 Polychromasia Slight 04/07/18 07:33 Hypochromasia (manual) Slight 04/07/18 07:33 Poikilocytosis (manual Slight 04/04/18 09:42 Basophilic Stippling Slight 04/01/18 07:23 Anisocytosis (manual) Slight 04/07/18 07:33 Microcytosis (manual) Slight 03/30/18 07:17 Macrocytosis (manual) Slight 04/07/18 07:33 Target Cells Slight 04/04/18 09:42 Tear Drop Cells Slight 04/04/18 09:42 Ovalocytes Slight 04/01/18 07:23 Stomatocytes Slight 03/25/18 08:47 Schistocytes Slight 04/01/18 07:23 Retic Count 1.7 % (0.5-1.5) H D 03/26/18 07:02 Haptoglobin 120.7 mg/dL (30.0-200.0) 03/26/18 07:03 PT 14.5 SECONDS (9.7-12.2) H 03/29/18 11:10 INR 1.3 03/29/18 11:10 APTT 36 SECONDS (21-34) H 03/29/18 11:10 Puncture Site Lra 03/27/18 09:50 pCO2 39 mm/Hg (35-45) 03/27/18 09:50 pO2 57 mm/Hg (80-100) L 03/27/18 09:50 HCO3 27.1 mmol/L (21-28) 03/27/18 09:50 ABG pH 7.45 (7.35-7.45) 03/27/18 09:50 ABG Total CO2 28.3 mmol/L (22-28) H 03/27/18 09:50 ABG O2 Saturation 95.7 % (95-98) 03/27/18 09:50 ABG Base Excess 3.0 mmol/L (-2.0-3.0) 03/27/18 09:50 Brayan Test Pos 03/27/18 09:50 ABG Potassium 3.5 mmol/L (3.6-5.2) L 03/27/18 09:50 VBG pH 7.44 (7.32-7.43) H 03/24/18 08:00 VBG pCO2 44 mmHg (40-60) 03/24/18 08:00 VBG HCO3 28.0 mmol/L 03/24/18 08:00 VBG Total CO2 31.3 mmol/L (22-28) H 03/24/18 08:00 VBG O2 Sat (Calc) 75.9 % (40-65) H 03/24/18 08:00 VBG Base Excess 5.0 mmol/L (0.0-2.0) H 03/24/18 08:00 VBG Potassium 3.3 mmol/L (3.6-5.2) L 03/24/18 08:00 A-a O2 Difference 179.0 mm/Hg 03/27/18 09:50 Respiratory Index 3.1 03/27/18 09:50 Sodium 137.0 mmol/l (132-148) 03/27/18 09:50 Chloride 104.0 mmol/L (98-107) 03/27/18 09:50 Glucose 140 mg/dl (65-105) H 03/27/18 09:50 Lactate 1.0 mmol/L (0.7-2.1) 03/27/18 09:50 Liter Flow 15.0 03/27/18 00:46 FiO2 40.0 % 03/27/18 09:50 Inspiratory BiPAP 14 03/27/18 09:50 Expiratory BiPAP 7 03/27/18 09:50 Sodium 136 mmol/L (132-148) 04/07/18 07:33 Potassium 3.9 mmol/L (3.6-5.2) 04/07/18 07:33 Chloride 98 mmol/L (98-107) 04/07/18 07:33 Carbon Dioxide 28 mmol/L (22-30) 04/07/18 07:33 Anion Gap 14 (10-20) 04/07/18 07:33 BUN 47 mg/dL (7-17) H 04/07/18 07:33 Creatinine 3.6 mg/dL (0.7-1.2) H 04/07/18 07:33 Est GFR ( Amer) 15 04/07/18 07:33 Est GFR (Non-Af Amer) 12 04/07/18 07:33 POC Glucose (mg/dL) 260 mg/dL (65-110) H 04/07/18 11:46 Random Glucose 137 mg/dL (65-105) H 04/07/18 07:33 Calcium 8.6 mg/dl (8.6-10.4) 04/07/18 07:33 Phosphorus 4.1 mg/dL (2.5-4.5) 04/06/18 07:15 Magnesium 2.1 mg/dL (1.6-2.3) 04/02/18 08:41 Iron 85 ug/dL (37-170) 03/26/18 07:03 TIBC 185 ug/dL (250-450) L 03/26/18 07:03 % Saturation 47 (20-55) 04/06/18 07:15 Ferritin 390.0 ng/mL 04/06/18 07:15 Total Bilirubin 0.5 mg/dL (0.2-1.3) 04/07/18 07:33 AST 22 U/L (14-36) 04/07/18 07:33 ALT 16 U/L (9-52) 04/07/18 07:33 Alkaline Phosphatase 56 U/L (38-126) 04/07/18 07:33 Troponin I 0.0180 ng/mL (0.00-0.120) 03/24/18 08:02 NT-Pro-B Natriuret Pep 8470 pg/mL (0-900) H 03/24/18 08:02 Total Protein 7.4 g/dL (6.3-8.3) 04/07/18 07:33 Albumin 3.1 g/dL (3.5-5.0) L 04/07/18 07:33 Globulin 4.2 gm/dL (2.2-3.9) H 04/07/18 07:33 Albumin/Globulin Ratio 0.7 (1.0-2.1) L 04/07/18 07:33 Vitamin B12 670 pg/mL (239-931) 03/26/18 07:03 Folate 9.3 ng/mL 03/26/18 07:03 Procalcitonin < 0.05 NG/ML (0.19-0.49) L 03/24/18 16:37 PTH Intact Whole Molec 152 pg/mL (14-64) H 03/29/18 07:34 Arterial Blood Potassium 3.5 mmol/L (3.6-5.2) L 03/27/18 09:50 Venous Blood Potassium 3.3 mmol/L (3.6-5.2) L 03/24/18 08:00 Urine Color Yellow (YELLOW) 03/24/18 23:01 Urine Clarity Clear (Clear) 03/24/18 23: Urine pH 5.0 (5.0-8.0) 03/24/18 23: Ur Specific [place] 1.013 (1.003-1.030) 03/24/18 23: Urine Protein 1+ mg/dL (NEGATIVE) H 03/24/18 23:01 Urine Glucose (UA) Normal mg/dL (Normal) 03/24/18 23: Urine Ketones Negative mg/dL (NEGATIVE) 03/24/18 23: Urine Blood 2+ (NEGATIVE) H 03/24/18 23: Urine Nitrate Negative (NEGATIVE) 03/24/18 23: Urine Bilirubin Negative (NEGATIVE) 03/24/18 23: Urine Urobilinogen Normal mg/dL (0.2-1.0) 03/24/18 23: Ur Leukocyte Esterase Neg Ludy/uL (Negative) 03/24/18 23: Urine WBC (Auto) 2 /hpf (0-5) 03/24/18 23: Urine RBC (Auto) 48 /hpf (0-3) H 03/24/18 23: Ur Squamous Epith Cells 2 /hpf (0-5) 03/24/18 23:01 Urine Bacteria Occ (<OCC) H 03/24/18 23:01 Fluid Source Pleural/thoracentesi 03/26/18 14:00 Fluid Appearance Bloody (CLEAR) 03/26/18 14:00 Fluid pH 8.0 03/26/18 14:00 Fluid pH Source Body fluid 03/26/18 14:00 Fluid WBC 943.0 /mm3 (0.0-300.0) H 03/26/18 14:00 Fluid RBC 10650.0 /mm3 (0.0-0.0) H 03/26/18 14:00 Fluid Tot Cell Count 100 (0-0) H 03/26/18 14:00 Fluid Neutrophils 67.0 % (0-0) H 03/26/18 14:00 Fluid Lymphocytes 19.0 % (0-0) H 03/26/18 14:00 Fld Monocyte/Macrophag 14 % (0-0) H 03/26/18 14:00 Fluid Comment 03/26/18 14:00 Pleural Total Protein 3.5 g/dL 03/26/18 14:00 Pleural LDH 261 U/L 03/26/18 14:00 Pleural Glucose 199 mg/dL 03/26/18 14:00 Vancomycin Trough 19.1 ug/mL (5.0-10.0) H 03/26/18 07:25 Random Vancomycin 19.7 ug/mL 03/29/18 07:34 Hep Bs Antigen Negative (NEGATIVE) 03/29/18 20:00 Hep Bs Antibody Negative (NEGATIVE) 03/29/18 20:00 Hep B Core IgM Ab Negative (NEGATIVE) 03/29/18 20:00 Hepatitis C Antibody Negative (NEGATIVE) 03/29/18 20:00 Ur L.pneumophila Ag Negative (NEGATIVE) 03/25/18 05:41 Mycoplasma pneumon IgM Negative (NEGATIVE) 03/24/18 19:39 TB Test (QFT) Nil 0.05 IU/mL 03/24/18 19:39 TB Test Mitogen - Nil 7.86 IU/mL 03/24/18 19:39 TB Test TB - Nil 0.03 IU/mL 03/24/18 19:39 TB Test (QFT) Negative (Negative) 03/24/18 19:39 Beta-(1,3)-D-Glucan <31 pg/mL (<60) 03/24/18 19:39 B-(1,3)-D-Glucan Intrp Negative 03/24/18 19:39 Plavix Genotype Interp Negative 03/24/18 19:39 Blood Type A POSITIVE 03/30/18 08:32 Antibody Screen Positive 03/30/18 08:32 Antibody Identification Non Specific Antibody 03/30/18 08:32 Antibody ID (Elution) Negative Panel 03/30/18 08:32 BRYAN, Poly Interpret Positive (NEGATIVE) H 03/30/18 08:32 Crossmatch See Detail 03/30/18 08:32 - Hospital Course Hospital Course: HPI (As per admission): Mrs. Bill is an 82 year old female with a PMHx of COPD, PVD CHF (w/ preserved E.F), HTN, Leukemia (not on tx), HLD, CKD, Hypothyrodism, and Pneumonia presents with complains of worsening shortness of breath and a productive cough x 6 days. She denies any fevers, chills, chest pain, or palpitations. She used her albuterol inhaler and nebulizer for her symptoms with moderate relief. She denies any sick contacts. Patient recently treated for pneumonia & discharged from [facility] on 03/15/18. Patient states her cough is usually on after her nebulizer treatment. Hospital Course: Patient was admitted for community acquired pneumonia and CHF; patient was started on appropriate antibiotics. Over the course of admission, patient had an US guided right thoracentesis with 500 cc of slight serosanguinous fluid with IR, Dr. Longoria (03/26/18). Nephrology consult was placed to Dr. Glaser's group for management of CKD as well as vascular surgical consult to Dr. Plummer for permacath placement. Permacath placement was placed on 03/29/18 and started HD. Patient remained stable over the course of admission with no significant issues. However, due to low platelets, AV fistula procedure was deferred and will be done elective. Patient was discharge upon medical clearance by all medical team. Patient is authorized to start HD at [facility] prior to discharge. Patient given clear discharge instructions. This is a brief summary of event. Please refer to the EMR for complete course. Discharge Exam - Head Exam Head Exam: ATRAUMATIC - Eye Exam Eye Exam: EOMI - Neck Exam Additional comments: Right IJ permacath - Respiratory Exam Respiratory Exam: NORMAL BREATHING PATTERN. absent: Rales, Rhonchi, Wheezes - Cardiovascular Exam Cardiovascular Exam: REGULAR RHYTHM, +S1, +S2 - GI/Abdominal Exam GI & Abdominal Exam: Normal Bowel Sounds, Soft. absent: Distended, Firm - Extremities Exam Extremities exam: normal inspection - Neurological Exam Neurological exam: Alert, Oriented x3 - Psychiatric Exam Psychiatric exam: Normal Affect - Skin Skin Exam: Normal Color Discharge Plan - Discharge Medications Prescriptions: Albuterol Sulfate [Proair Hfa] 0.09 mg IH Q6 PRN #1 inh PRN Reason: Cough amLODIPine [Norvasc] 10 mg PO DAILY #30 tab Calcium Acetate [Phoslo] 667 mg PO TID 30 Days #90 tab Fenofibrate [Tricor] 48 mg PO DAILY #30 tab Levothyroxine [Synthroid] 100 mcg PO DAILY@0630 #30 tab Metoprolol Succinate XL [Toprol XL] 25 mg PO DAILY #30 tab Prasugrel [Effient] 10 mg PO DAILY #30 tab Rosuvastatin Calcium [Crestor] 10 mg PO DAILY #30 tab Saccharomyces Boulardi [Florastor] 250 mg PO BID #56 cap SITagliptin [Januvia] 25 mg PO DAILY PRN #30 tab PRN Reason: high blood sugar - Follow Up Plan Condition: STABLE Disposition: HOME/ ROUTINE Instructions: Kidney Failure, Heart Failure, Adult, Sitagliptin, Saccharomyces boulardii, Hemodialysis (DC), Prasugrel, Albuterol, Calcium Acetate, Levothyroxine, Metoprolol, Rosuvastatin Additional Instructions: Please discharge patient home after HD Please continue all your medications as prescribed: 1. Albuterol Sulfate every 6 hours as needed 2. Norvasc 10mg by mouth daily 3. Phoslo 667mg by mouth three times a day 4. Tricor 48mg by mouth daily 5. Synthroid 100mcg by mouth daily 6. Toprol XL 25mg by mouth daily 7. Effient 10mg by mouth daily 8. Crestor 10mg by mouth at bedtime 10. Januvia 25mg by mouth daily Please follow up with your medical team upon discharge as discussed within 1-2 weeks - Ultrasound Tech, Dr. Charanjit Enrique, - Buffing Wheel Former Automatic, Dr. Hernandez - Hematology and oncology, Dr. Avel Enrique, - Janitorial Assistant, Dr. Langston - Vascular surgeon, Dr. Plummer for AV fistula placement - Primary care physician, Dr. Clements Please continue to use your respiratory device at home as instructed by your field artillery targeting technician Please return to the hospital if symptoms resume or worsen Please take care Por favor d de tirso al paciente despus de HD Por favor contine todos avery medicamentos segn lo prescrito: 1. Sulfato de albuterol cada 6 horas segn sea necesario 2. Norvasc 10 mg por va oral al da. 3. Phoslo 667 mg por va oral moose veces al da. 4. Tricor 48mg por va oral al da. 5. Synthroid 100mcg por va oral al da. 6. Toprol XL 25 mg por va oral al da. 7. Effient 10mg por va oral al da. 8. Crestor 10 mg por va oral a la hora de acostarse 10. Januvia 25 mg por va oral al da. Por favor, erik un seguimiento con mosley equipo mdico despus del tirso, segn lo discutido dentro de 1-2 semanas - Cardilogo, Dr. Charanjit Enrique, - Neumlogo, Dr. Hernandez. - Hematologa y oncologa, Dr. Avel Enrique, - Nefrlogo, Dr. Langston - Cirujano vascular, Dr. Plummer para la colocacin de fstulas AV. - Mdico de atencin primaria, Dr. Carballo. Contine usando mosley dispositivo respiratorio en el hogar ayla lo indique mosley neumlogo Por favor regrese al hospital si los sntomas se reanudan o empeoran. Por favor cudate Referrals: Tj Hernandez MD [Staff Provider] - Kem Langston MD [Staff Provider] - Indra Plummer Jr., MD [Staff Provider] -
[2018-04-07 14:37] VITALS: RESP 18; TEMP 97.7; O2SAT 96
[2018-04-07 14:46] VITALS: BP 159/63; PULSE 87
[2018-04-07] MEDS: Metoprolol Succinate 50 mg XL Tab PO SCH (14:47)
== END 2018-04-07 15:30 | disposition home or self-care (01) | DRG 193 ==
LOC: C.ER 07:20 → C.9E 08:46 → C.6T 13:44 → C.9E 14:04 → C.6T 14:12 → C.9E 14:21 → C.5S 16:31
PROVIDERS: ADMIT Hospitalist; ATTEND Hospitalist
PROC: 0W9B3ZZ Drainage of Left Pleural Cavity, Percutaneous Approach (ICD-10-PCS; principal; 2018-03-26)
PROC: 5A09557 Assistance with Respiratory Ventilation, Greater than 96 Consecutive Hours, Continuous Positive Airway Pressure (ICD-10-PCS; 2018-03-27)
PROC: 0JH63XZ Insertion of Tunneled Vascular Access Device into Chest Subcutaneous Tissue and Fascia, Percutaneous Approach (ICD-10-PCS; 2018-03-29)
PROC: 02HV33Z Insertion of Infusion Device into Superior Vena Cava, Percutaneous Approach (ICD-10-PCS; 2018-03-29)
PROC: B518ZZA Fluoroscopy of Superior Vena Cava, Guidance (ICD-10-PCS; 2018-03-29)
PROC: B543ZZA Ultrasonography of Right Jugular Veins, Guidance (ICD-10-PCS; 2018-03-29)
PROC: 5A1D70Z Performance of Urinary Filtration, Intermittent, Less than 6 Hours Per Day (ICD-10-PCS; 2018-03-30)
PROC: 30233N1 Transfusion of Nonautologous Red Blood Cells into Peripheral Vein, Percutaneous Approach (ICD-10-PCS; 2018-03-30)
PROC: 5A1D70Z Performance of Urinary Filtration, Intermittent, Less than 6 Hours Per Day (ICD-10-PCS; 2018-04-02)
PROC: 5A1D70Z Performance of Urinary Filtration, Intermittent, Less than 6 Hours Per Day (ICD-10-PCS; 2018-04-04)
PROC: 5A1D70Z Performance of Urinary Filtration, Intermittent, Less than 6 Hours Per Day (ICD-10-PCS; 2018-04-07)
DX: J18.9 Pneumonia, unspecified organism (principal); J90 Pleural effusion, not elsewhere classified; N17.9 Acute kidney failure, unspecified; J96.91 Respiratory failure, unspecified with hypoxia; N18.6 End stage renal disease; I13.0 Hypertensive heart and chronic kidney disease with heart failure and stage 1 through stage 4 chronic kidney disease, or unspecified chronic kidney disease; J44.0 Chronic obstructive pulmonary disease with (acute) lower respiratory infection; C93.10 Chronic myelomonocytic leukemia not having achieved remission; J98.11 Atelectasis; I50.32 Chronic diastolic (congestive) heart failure; I13.2 Hypertensive heart and chronic kidney disease with heart failure and with stage 5 chronic kidney disease, or end stage renal disease; E11.22 Type 2 diabetes mellitus with diabetic chronic kidney disease; E11.51 Type 2 diabetes mellitus with diabetic peripheral angiopathy without gangrene; D69.6 Thrombocytopenia, unspecified; D64.9 Anemia, unspecified; E03.9 Hypothyroidism, unspecified; Y95 Nosocomial condition; G47.30 Sleep apnea, unspecified; M81.0 Age-related osteoporosis without current pathological fracture; E78.5 Hyperlipidemia, unspecified; Z87.01 Personal history of pneumonia (recurrent); Z87.442 Personal history of urinary calculi; Z83.3 Family history of diabetes mellitus; Z79.84 Long term (current) use of oral hypoglycemic drugs

== ENCOUNTER 2018-04-12 08:26 | Observation (INO) | payer MEDICARE ==
[2018-04-12] MEDS ORDERED: HEPARIN-NS 5,000 UNITS/500 ML 5,000 UNIT/500 ML BAG IV ONE (08:58)
[2018-04-12] MEDS ORDERED: Lidocaine Hydrochloride 10 ML INJ ONE (08:58)
[2018-04-12 10:14] LABS: CALCIUM 8.6 mg/dl (8.6-10.4)
[2018-04-12] MEDS ORDERED: ceFAZolin IV 1 gm in Dextrose 2 GM/100 ML BAG IVPB ONE (10:26)
[2018-04-12 13:00] LABS: BASO % 0.3 % (0.0-2.0); EOS # 0.2 K/uL (0.0-0.7); EOS % 1.5 % (0.0-4.0); LYMPH # 2.5 K/uL (1.0-4.3); LYMPH % 18.3 % (20.0-40.0); MEAN CORPUSCULAR HEMOGLOBIN 30.5 pg (27.0-31.0); MEAN CORPUSCULAR HGB CONC 32.5 g/dL (33.0-37.0); MEAN PLATELET VOLUME 9.7 fL (7.2-11.7); MONO % 36.6 % (0.0-10.0); NEUT # 5.9 K/uL (1.8-7.0); NEUT % 43.3 % (50.0-75.0); PLATELET COUNT 72 K/uL (130-400); RBC 2.95 Mil/uL (3.80-5.20); RED CELL DISTRIBUTION WIDTH 19.6 % (11.5-14.5); WHITE BLOOD COUNT 13.6 K/uL (4.8-10.8)
[2018-04-12 13:20] LABS: ANISOCYTOSIS SLIGHT; EOSINOPHIL 1 % (0-4); HYPOCHROMIC SLIGHT; LYMPHOCYTE 20 % (20-40); MONOCYTE 30 % (0-10); NEUTROPHIL 49 % (50-75); PLATELET ESTIMATE DECREASED (NORMAL); POIKILOCYTOSIS SLIGHT; TOTAL CELLS COUNTED 100
[2018-04-12] MEDS ORDERED: Sodium Chloride 0.9% 500 ML IV ONE (13:29)
--- NOTE | 2018-04-12 13:31 | PCM.SURG1 ---
Surgeon's Initial Post Op Note - Surgeon's Notes Surgeon: Dr. Plummer Serology Technician: Dr. Alfaro PGY3, Von MS3 Type of Anesthesia: IV Sedation Pre-Operative Diagnosis: ESRD with malfunctioning permacath Operative Findings: See operative dictation Post-Operative Diagnosis: Same Operation Performed: Right IJ permacath exchange Specimen/Specimens Removed: None Estimated Blood Loss: EBL {In ML}: 10 Blood Products Given: N/A Drains Used: No Drains Post-Op Condition: Good Date of Surgery/Procedure: 04/12/18 Time of Surgery/Procedure: 13:31
[2018-04-12 13:42] LABS: CALCIUM 8.6 mg/dl (8.6-10.4)
[2018-04-12] MEDS ORDERED: Albuterol HFA 90 mcg/actuation (8 g) IH PRN (14:44)
--- NOTE | 2018-04-12 16:51 | RAD ---
Date of service: 04/12/2018 HISTORY: right ij permacath COMPARISON: 04/01/2018 FINDINGS: LUNGS: Prior coalescent airspace opacities on the right and left mid lung zone have improved-largely cleared. Persistent left basal opacity left pleural effusion compressive atelectasis with or without infiltrate compatible with the current appearance PLEURA: Left pleural effusion inferred-believes smaller than before. No pneumothorax appreciated. CARDIOVASCULAR: There is presence of aortic atherosclerotic calcification on x-ray. Cardiomegaly-similar mild pulmonary venous congestion less now than before. Mitral annular calcification similar. Right internal jugular PermCath in place distal tips cavoatrial junction.-similar. OSSEOUS STRUCTURES: No significant abnormalities. VISUALIZED UPPER ABDOMEN: Normal. OTHER FINDINGS: None. IMPRESSION: Interval improvement/partial clearance of bilateral coalescent airspace opacities-as referenced above. Persistent left basal opacity-residual left pleural effusion with compressive atelectasis inferred. Cannot exclude any potential concomitant infiltrate here. Size of left pleural effusion smaller. Other findings as above. Right internal jugular PermCath in place distal tips cavoatrial junction.-similar. No pneumothorax appreciated
[2018-04-12 20:18] VITALS: RESP 20
[2018-04-12] MEDS: Saccharomyces Boulardi 250 mg Cap PO SCH (21:36)
[2018-04-12] MEDS ORDERED: Glucagon Recombinant 1 mg Inj IM PRN (21:45)
[2018-04-12] MEDS ORDERED: Dextrose 50% SYRINGE Inj (50 ml) IV PRN (21:45)
[2018-04-13] MEDS: (Novolog) Insulin Aspart, Recombinant 100 u/ml 10 ml vial SC SCH ×3 (01:30→12:05)
[2018-04-13] MEDS ORDERED: Levothyroxine 100 MCG TAB PO SCH (06:30)
--- NOTE | 2018-04-13 08:14 | CP.PCM.DIS ---
Provider - Provider Date of Admission: 04/12/18 14:42 Attending physician: Indra Plummer Jr, MD Time Spent in preparation of Discharge (in minutes): 35 Diagnosis - Discharge Diagnosis (1) Status post insertion of dialysis catheter Status: Acute (2) CKD (chronic kidney disease) stage 5, GFR less than 15 ml/min Status: Chronic (3) COPD (chronic obstructive pulmonary disease) Status: Chronic (4) Diabetes Status: Chronic (5) Dyslipidemia Status: Acute (6) HTN (hypertension) Status: Chronic Hospital Course - Lab Results Lab Results: Most Recent Lab Values WBC 13.6 K/uL (4.8-10.8) H 04/12/18 12:54 RBC 2.95 Mil/uL (3.80-5.20) L 04/12/18 12:54 Hgb 9.0 g/dL (11.0-16.0) L 04/12/18 12:54 Hct 27.8 % (34.0-47.0) L 04/12/18 12:54 MCV 94.0 fL (81.0-99.0) 04/12/18 12:54 MCH 30.5 pg (27.0-31.0) 04/12/18 12:54 MCHC 32.5 g/dL (33.0-37.0) L 04/12/18 12:54 RDW 19.6 % (11.5-14.5) H 04/12/18 12:54 Plt Count 72 K/uL (130-400) L 04/12/18 12:54 MPV 9.7 fL (7.2-11.7) 04/12/18 12:54 Neut % (Auto) 43.3 % (50.0-75.0) L 04/12/18 12:54 Lymph % (Auto) 18.3 % (20.0-40.0) L 04/12/18 12:54 [place] % (Auto) 36.6 % (0.0-10.0) H 04/12/18 12:54 Eos % (Auto) 1.5 % (0.0-4.0) 04/12/18 12:54 Baso % (Auto) 0.3 % (0.0-2.0) 04/12/18 12:54 Neut # (Auto) 5.9 K/uL (1.8-7.0) 04/12/18 12:54 Lymph # (Auto) 2.5 K/uL (1.0-4.3) 04/12/18 12:54 [place] # (Auto) 5.0 K/uL (0.0-0.8) H 04/12/18 12:54 Eos # (Auto) 0.2 K/uL (0.0-0.7) 04/12/18 12:54 Baso # (Auto) 0.0 K/uL (0.0-0.2) 04/12/18 12:54 Neutrophils % (Manual) 49 % (50-75) L 04/12/18 12:54 Lymphocytes % (Manual) 20 % (20-40) 04/12/18 12:54 Monocytes % (Manual) 30 % (0-10) H 04/12/18 12:54 Eosinophils % (Manual) 1 % (0-4) 04/12/18 12:54 Platelet Estimate Decreased (NORMAL) L 04/12/18 12:54 Hypochromasia (manual) Slight 04/12/18 12:54 Poikilocytosis (manual Slight 04/12/18 12:54 Anisocytosis (manual) Slight 04/12/18 12:54 Sodium 137 mmol/L (132-148) 04/12/18 12:54 Potassium 4.1 mmol/L (3.6-5.2) 04/12/18 12:54 Chloride 100 mmol/L (98-107) 04/12/18 12:54 Carbon Dioxide 29 mmol/L (22-30) 04/12/18 12:54 Anion Gap 14 (10-20) 04/12/18 12:54 BUN 46 mg/dL (7-17) H 04/12/18 12:54 Creatinine 2.6 mg/dL (0.7-1.2) H 04/12/18 12:54 Est GFR ( Amer) 04/12/18 12:54 Est GFR (Non-Af Amer) 18 04/12/18 12:54 POC Glucose (mg/dL) 90 mg/dL (65-110) 04/13/18 06:20 Random Glucose 94 mg/dL (65-105) 04/12/18 12:54 Calcium 8.6 mg/dl (8.6-10.4) 04/12/18 12:54 - Hospital Course Hospital Course: Pt is an 82F with end stage renal disease who had a permacath placed as inpatient 2 weeks ago but wasn't working well in dialysis. Patient underwent a removal of the prior permacath and insertion of a new permacath in the OR and tolerated the procedure well. Patient received HD after the procedure with no complications. POD#1 patient reported minimal pain, no SOB, fevers or chills, was ambulating and eating well. She was discharged to home to resume home medications and follow up with Dr. Plummer in his office For full course, please refer to chart Discharge Exam - Head Exam Head Exam: ATRAUMATIC, NORMOCEPHALIC - Eye Exam Eye Exam: Normal appearance. absent: Conjunctival injection, Scleral icterus - ENT Exam ENT Exam: Mucous Membranes Moist, Normal Oropharynx - Neck Exam Additional comments: right IJ permacath in place with no surrounding swelling, bleeding, erythema, drainage - Respiratory Exam Respiratory Exam: NORMAL BREATHING PATTERN, UNREMARKABLE. absent: Accessory Muscle Use - Cardiovascular Exam Cardiovascular Exam: RRR - GI/Abdominal Exam GI & Abdominal Exam: absent: Distended, Soft - Extremities Exam Extremities exam: normal capillary refill, pedal pulses present - Neurological Exam Neurological exam: Alert, Oriented x3 - Psychiatric Exam Psychiatric exam: Normal Affect, Normal Mood - Skin Skin Exam: Dry, Normal Color, Warm Discharge Plan - Follow Up Plan Condition: GOOD Disposition: HOME/ ROUTINE Instructions: Dialysis Catheter (DC) Additional Instructions: Call Dr. Plummer for follow up appointment in [address] Plummer's office or come to ER for any fever >100.4, chest pain, SOB, or any other concerning symptoms Resume all home medications Do not soak the incision or apply antibiotic ointments Referrals: Indra Plummer Jr., MD [Staff Provider] - Clinical Quality Measures - CQM - Stroke Antithrombotic Prescribed: Yes
[2018-04-13 08:39] VITALS: BP 111/75; PULSE 67; TEMP 97.6; O2SAT 98
[2018-04-13] MEDS: Saccharomyces Boulardi 250 mg Cap PO SCH (09:08)
[2018-04-13] MEDS ORDERED: Metoprolol Succinate 25 mg XL Tab PO SCH (10:00)
--- NOTE | 2018-04-16 07:51 | OP ---
PROCEDURE DATE: 04/12/2018 PREOPERATIVE DIAGNOSIS: Renal failure. POSTOPERATIVE DIAGNOSIS: Renal failure. PROCEDURE: Placement of Perm-A-Cath, right jugular vein, with C-arm fluoroscopy. SURGEON: Indra Plummer Jr., MD. WELT EDGE ROUNDER: Kb Alfaro DO. ANESTHESIOLOGIST: Amelia Handy APN. INDICATIONS: The patient is an 82-year-old woman, recently started on dialysis, poor flow with the dialysis. OPERATING FINDINGS: The long tip of the catheter had clotted and this was most likely responsible for the problem. The rest of the intraoperative findings was unremarkable. Initially, we placed the catheter once. There was still stuttery flow. Because of this, we then replaced the catheter into a deeper level, somewhat deeper than we normally would place it. Because of the history of the patient having a low platelet count of uncertain etiology, we then flushed the catheter at the end with saline with an additional CathFlo of 2 mL in each port. DESCRIPTION OF PROCEDURE: The patient was given anesthesia. The old catheter was removed via cutdown in the neck. A new guidewire was inserted. The old catheter was completely removed. The gloves were changed. Antibiotics had been given previously. We then placed a new catheter and initially, I was unhappy with the flow. So, we moved to another location and then placed an entirely new catheter. This was flushed with saline with tPA at the end with excellent clinical results. There was excellent flow through the catheter. We secured it to the skin. The catheter originated on the right chest wall, went through the jugular vein, and terminated in the superior vena cava. Indra Plummer Jr., MD
== END 2018-04-13 13:10 | disposition home or self-care (01) ==
LOC: C.SDS 08:26 → C.9S 14:42 → C.3T 19:28
PROVIDERS: ADMIT Surgery Vascular Surgery; ATTEND Surgery Vascular Surgery
DX: N18.6 End stage renal disease (principal); E11.22 Type 2 diabetes mellitus with diabetic chronic kidney disease; I12.9 Hypertensive chronic kidney disease with stage 1 through stage 4 chronic kidney disease, or unspecified chronic kidney disease; N18.9 Chronic kidney disease, unspecified; J44.9 Chronic obstructive pulmonary disease, unspecified; Z99.2 Dependence on renal dialysis
CPT/HCPCS: 36415; 36569; 71045; 77001; 80048; 82948; 85025; 97116; 97162; 97165; 97530; C1750; C1769; C1894; G0378; G8978; G8979; G8987; G8988; G8989; J0690; J1644; J3010; J7030; J7040

== ENCOUNTER 2018-05-01 01:17 | Inpatient (IN) | payer MEDICARE ==
[2018-05-01 01:31] VITALS: BMI 30.2
[2018-05-01 02:16] LABS: BASO % 0.2 % (0.0-2.0); EOS # 0.3 K/uL (0.0-0.7); EOS % 1.9 % (0.0-4.0); HEMOGLOBIN 7.4 g/dL (11.0-16.0); LYMPH # 2.4 K/uL (1.0-4.3); LYMPH % 13.8 % (20.0-40.0); MEAN CELL VOLUME 94.4 fL (81.0-99.0); MEAN CORPUSCULAR HEMOGLOBIN 30.9 pg (27.0-31.0); MEAN CORPUSCULAR HGB CONC 32.8 g/dL (33.0-37.0); MEAN PLATELET VOLUME 9.8 fL (7.2-11.7); MONO # 7.9 K/uL (0.0-0.8); MONO % 44.9 % (0.0-10.0); NEUT # 6.9 K/uL (1.8-7.0); NEUT % 39.2 % (50.0-75.0); NRBC % 0.1 % (0.0-2.0); PLATELET COUNT 97 K/uL (130-400); RBC 2.38 Mil/uL (3.80-5.20); WHITE BLOOD COUNT 17.7 K/uL (4.8-10.8)
[2018-05-01 02:30] LABS: INR 1.2; PROTHROMBIN TIME 12.7 SECONDS (9.7-12.2)
[2018-05-01 02:42] LABS: ALB/GLOB RATIO 0.8 (1.0-2.1); ALBUMIN 3.8 g/dL (3.5-5.0); CALCIUM 8.4 mg/dl (8.6-10.4)
[2018-05-01 02:49] LABS: EOSINOPHIL 1 % (0-4); LYMPHOCYTE 14 % (20-40); MONOCYTE 43 % (0-10); NEUTROPHIL 42 % (50-75); PLATELET ESTIMATE NORMAL (NORMAL); TOTAL CELLS COUNTED 100
--- NOTE | 2018-05-01 03:36 | C.PDOC ---
History Of Present Illness 83 year old female with PMHx of COPD, CHF, asthma presents to the ED c/o cough associated with congestion, body aches and subjective fever for the past 2 days. Patient states today she felt chest tightness which promoted the visit. Patient goes to dialysis Monday, and Monday, is at home on O2. Patient denies vomit, diarrhea, rash, palpitations, recent travel, sick contacts. Nephrology: Dr. Langston Time Seen by Provider: 05/01/18 01:37 Chief Complaint (Nursing): Cough, Cold, Congestion History Per: Patient History/Exam Limitations: no limitations Onset/Duration Of Symptoms: Days (2) Current Symptoms Are (Timing): Still Present Recent travel outside of the [place]: No Additional History Per: Patient Past Medical History Reviewed: Historical Data, Nursing Documentation, Vital Signs Vital Signs: Last Vital Signs Temp 98.6 F 05/01/18 01:29 Pulse 88 05/01/18 02:31 Resp 16 05/01/18 02:38 BP 155/43 H 05/01/18 02:31 Pulse Ox 98 05/01/18 02:38 - Medical History PMH: Anemia, Arthritis, COPD, Diabetes, Gastritis, HTN, Hypothyroidism, Kidney Stones, Osteoporosis, Peripheral Edema, Pneumonia, Chronic Kidney Disease Surgical History: No Surg Hx - [facility] Procedures (03/24/18) ASSISTANCE WITH RESPIRATORY VENTILATION, 24-96 HRS, CPAP (03/19/17) ASSISTANCE WITH RESPIRATORY VENTILATION, >96 HRS, CPAP (03/24/18) DRAINAGE OF LEFT PLEURAL CAVITY, PERCUTANEOUS APPROACH (03/24/18) FLUOROSCOPY OF SUPERIOR VENA CAVA, GUIDANCE (03/24/18) INSERTION OF INFUSION DEV INTO SUP VENA CAVA, PERC APPROACH (03/24/18) INSERTION OF VAD INTO CHEST SUBCU/FASCIA, PERC APPROACH (03/24/18) INTRODUCTION OF SERUM/TOX/VACCINE INTO MUSCLE, PERC APPROACH (05/27/15) TRANSFUSE NONAUT RED BLOOD CELLS IN PERIPH VEIN, PERC (03/24/18) ULTRASONOGRAPHY OF PLEURA (03/04/18) ULTRASONOGRAPHY OF RIGHT JUGULAR VEINS, GUIDANCE (03/24/18) Family History: States: Unknown Family Hx - Social History Hx Tobacco Use: No Hx Alcohol Use: No Hx Substance Use: No - Immunization History Hx Tetanus Toxoid Vaccination: No Hx Influenza Vaccination: No Hx Pneumococcal Vaccination: No Review Of Systems Constitutional: Positive for: Fever. Negative for: Chills ENT: Positive for: Nose Congestion. Negative for: Nose Discharge, Throat Pain Cardiovascular: Positive for: Chest Pain. Negative for: Palpitations Respiratory: Positive for: Cough Physical Exam - Physical Exam Appears: Non-toxic, Chronically Ill Skin: Normal Color, Warm, Dry Head: Atraumatic, Normacephalic Eye(s): bilateral: Normal Inspection Ear(s): Bilateral: Normal Oral Mucosa: Moist Throat: No Erythema, No Exudate Neck: Normal ROM, Supple Chest: Symmetrical Cardiovascular: Rhythm Regular, No Friction Rub, No Murmur Respiratory: No Accessory Muscle Use, Rales (bilateral at the bases), No Rhonchi, No Wheezing Gastrointestinal/Abdominal: Soft, No Tenderness, No Guarding, No Rebound Back: Normal Inspection Extremity: Normal ROM, No Tenderness, No Swelling Neurological/Psych: Oriented x3, Normal Speech, Normal Cognition Gait: Steady ED Course And Treatment - Laboratory Results Result Diagrams: 05/01/18 02:14 05/01/18 02:14 ECG: Interpreted By Me, Viewed By Me ECG Rhythm: Sinus Rhythm ECG Interpretation: Normal Rate From EC (BPM) O2 Sat by Pulse Oximetry: 98 (On RA) Pulse Ox Interpretation: Normal - Radiology CXR: Interpreted by Me CXR Interpretation: Yes: Infiltrates ((+) Right lower lobe), Other ((+) venous congestion). No: No Acute Disease Medical Decision Making Medical Decision Making: Plan: * Labs * CXR * EKG * Vancomycin * Zosyn * Blood culture * Influenza A B Spoke with Dr. Finn Hospitalist covering for Dr. Fuentes Clements, accepts the patient for admission Disposition - Disposition Disposition: HOSPITALIZED Disposition Time: 02:30 Condition: STABLE - POA Present On Arrival: None - Clinical Impression Clinical Impression: ESRD (end stage renal disease), Pneumonia, Acute CHF - PA / MANAGER OF INVESTIGATIONS / Resident Statement MD/DO has reviewed & agrees with the documentation as recorded. - Scribe Statement The provider has reviewed the documentation as recorded by the Scribe Marek Emery All medical record entries made by the Scribe were at my direction and personally dictated by me. I have reviewed the chart and agree that the record accurately reflects my personal performance of the history, physical exam, medical decision making, and the department course for this patient. I have also personally directed, reviewed, and agree with the discharge instructions and disposition.
[2018-05-01] MEDS ORDERED: Piperacillin/Tazobact 3.375 gm 100 ML IV STA (03:39)
[2018-05-01] MEDS ORDERED: Vancomycin 1 GM 1 GM/250 ML BAG IV STA (03:49)
[2018-05-01] MEDS ORDERED: Piperacillin/Tazobact 3.375 gm 100 ML IVPB ONE (04:11)
[2018-05-01] MEDS ORDERED: Vancomycin 1 GM 1 GM/250 ML BAG IVPB ONE (05:05)
--- NOTE | 2018-05-01 05:11 | CP.PCM.HP ---
<Emile Seals - Last Filed: 05/01/18 08:50> History of Present Illness - History of Present Illness History of Present Illness: CC "shortness of breath, chest and stomach heaviness" HPI: Patient is a 83 year old female with history of ESRD on HD TTS, COPD, PVD ,CHF with preserved EF, HTN, myelodyplastic syndrome, hypothyroidism and recent pneumonia who presents with daughters for complaints of shortness of breath, described as inability to get enough air associated with chest tightness that started at 11pm last night. She states her shortness of breath is worsened if she lies flat. Daughters at bedside state that she usually sleeps propped up. She states that prior to her episode she experienced some "heaviness in her stomach and chest" at about 10:30pm. She denies experiencing any pain in her chest or abdomen. She also states she has been spitting up white foamy material for 3 hours prior to her symptoms started. She denies seeing any blood in the sputum. She denies nausea, vomiting, stating she was able to eat a good dinner last night. She states she felt similarly when she had pneumonia recently. She also admits to some nasal congestion as well, denies sore throat, frontal headache. She denies fevers, chills, headache, dizziness, chest pain, palpitations, nausea, vomiting, diarrhea, constipation. She states her stools remains brown, denies black or bloody stools. She continues to urinate a very small amount, denies dysuria, denies leg pain or swelling. Patient was recently admitted here for similar symptoms. 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 Meds: Norvasc 10mg PO, Florastor 250mg PO BID, Januvia 25mg PO daily, Crstor 10mg, Effient 10mg, Toprol XL 10mg, Levothyroxine 100mcg, Fenofibrate 48mg, Phoslo 667mg TID, Albuterol Q6 Allergies: NKDA PMD: Dr. Clements Nephro: Dr. Langston Pulmonary: Dr. Hernandez Cardio: Dr. Sisi Day [phone] Hem/Onc: Dr. Avel Day [phone] Code Status: Full code Proxy: Bharati Keene (First Daughter, ) and Ayla ( Second daughter, ) Present on Admission - Present on Admission Any Indicators Present on Admission: No Review of Systems - Constitutional Constitutional: absent: Chills, Fever - EENT Eyes: absent: Change in Vision Ears: absent: Ear Pain Nose/Mouth/Throat: Nasal Congestion. absent: Sore Throat - Cardiovascular Cardiovascular: Dyspnea. absent: Chest Pain, Edema, Palpitations, Pedal Edema - Respiratory Respiratory: Dyspnea - Gastrointestinal Gastrointestinal: absent: Abdominal Pain, Constipation, Diarrhea, Vomiting - Genitourinary Genitourinary: absent: Dysuria Additional comments: small amounts of urine - Psychiatric Psychiatric: absent: Anxiety, Depression Past Patient History - Infectious Disease Hx of Infectious Diseases: None - Tetanus Immunizations Tetanus Immunization: Unknown - Past Medical History & Family History Past Medical History?: Yes - Past Social History Smoking Status: Never Smoked - CARDIAC Hx Hypertension: Yes Hx Peripheral Edema: Yes - PULMONARY Hx Chronic Obstructive Pulmonary Disease (COPD): Yes Hx Pneumonia: Yes - NEUROLOGICAL Hx Neurological Disorder: No - HEENT Hx HEENT Problems: Yes Hx Cataracts: Yes Other/Comment: Corneal replacement both eyes - RENAL Hx Chronic Kidney Disease: Yes Hx Kidney Stones: Yes - ENDOCRINE/METABOLIC Hx Hypothyroidism: Yes - HEMATOLOGICAL/ONCOLOGICAL Hx Anemia: Yes - INTEGUMENTARY Hx Dermatological Problems: No - MUSCULOSKELETAL/RHEUMATOLOGICAL Hx Arthritis: Yes Hx Osteoporosis: Yes - GASTROINTESTINAL Hx Gastritis: Yes - GENITOURINARY/GYNECOLOGICAL Hx Genitourinary Disorders: No - PSYCHIATRIC Hx Substance Use: No - SURGICAL HISTORY Hx Surgeries: Yes Hx Cataract Extraction: Yes Other/Comment: Vascular stents. Bone marrow aspiration. Corneal transplant. Permacat Insertion - ANESTHESIA Hx Anesthesia: Yes Hx Anesthesia Reactions: No Hx Malignant Hyperthermia: No Meds Allergies/Adverse Reactions: Allergies Allergy/AdvReac Type Severity Reaction Status Date / Time No Known Allergies Allergy Verified 05/01/18 01:28 Physical Exam - Constitutional Additional comments: Patient is sitting up speaking, alert, awake. - Head Exam Head Exam: ATRAUMATIC, NORMOCEPHALIC - Eye Exam Eye Exam: EOMI, PERRL. absent: Conjunctival injection, Periorbital swelling, Scleral icterus - ENT Exam ENT Exam: Mucous Membranes Dry, Normal Oropharynx - Neck Exam Neck exam: Positive for: Full Rom. Negative for: Lymphadenopathy, Tenderness - Respiratory Exam Respiratory Exam: Decreased Breath Sounds, Rales (at bases bilaterally, L>R). absent: Stridor Additional comments: Right chest permacath - Cardiovascular Exam Cardiovascular Exam: REGULAR RHYTHM, +S1, +S2. absent: Gallop, Rubs, Systolic Murmur - GI/Abdominal Exam GI & Abdominal Exam: Normal Bowel Sounds, Soft. absent: Distended, Firm, Tenderness - Extremities Exam Extremities exam: Positive for: normal capillary refill, pedal pulses present. Negative for: calf tenderness, pedal edema - Back Exam Back exam: absent: CVA tenderness (L), CVA tenderness (R) - Neurological Exam Neurological exam: Alert, Oriented x3 Additional comments: Good strength of upper and lower extremities. Sensation intact. - Psychiatric Exam Psychiatric exam: Normal Affect, Normal Mood - Skin Skin Exam: Dry, Intact, Warm Results - Vital Signs Recent Vital Signs: Last Vital Signs Temp 98.6 F 05/01/18 01:29 Pulse 90 05/01/18 04:38 Resp 20 05/01/18 04:38 BP 149/36 L 05/01/18 04:38 Pulse Ox 94 L 05/01/18 04:38 - Labs Result Diagrams: 05/01/18 02:14 05/01/18 02:14 Labs: Laboratory Results - last 24 hr 05/01/18 05/01/18 05/01/18 02:14 02:14 02:14 WBC 17.7 H RBC 2.38 L Hgb 7.4 L Hct 22.5 L MCV 94.4 MCH 30.9 MCHC 32.8 L RDW 18.0 H Plt Count 97 L D MPV 9.8 Neut % (Auto) 39.2 L Lymph % (Auto) 13.8 L Preston % (Auto) 44.9 H Eos % (Auto) 1.9 Baso % (Auto) 0.2 Neut # (Auto) 6.9 Lymph # (Auto) 2.4 Preston # (Auto) 7.9 H Eos # (Auto) 0.3 Baso # (Auto) 0.0 Neutrophils % (Manual) 42 L Lymphocytes % (Manual) 14 L Monocytes % (Manual) 43 H Eosinophils % (Manual) 1 Platelet Estimate Normal PT 12.7 H INR 1.2 APTT 32 Sodium 134 Potassium 4.7 Chloride 95 L Carbon Dioxide 29 Anion Gap 14 BUN 43 H Creatinine 2.8 H Est GFR ( Amer) 20 Est GFR (Non-Af Amer) 16 Random Glucose 210 H Calcium 8.4 L Total Bilirubin 0.9 AST 42 H D ALT 18 Alkaline Phosphatase 47 Troponin I NT-Pro-B Natriuret Pep 6830 H Total Protein 8.7 H Albumin 3.8 Globulin 4.9 H Albumin/Globulin Ratio 0.8 L Influenza Typ A,B (EIA) 05/01/18 05/01/18 02:16 04:09 WBC RBC Hgb Hct MCV MCH MCHC RDW Plt Count MPV Neut % (Auto) Lymph % (Auto) Preston % (Auto) Eos % (Auto) Baso % (Auto) Neut # (Auto) Lymph # (Auto) Preston # (Auto) Eos # (Auto) Baso # (Auto) Neutrophils % (Manual) Lymphocytes % (Manual) Monocytes % (Manual) Eosinophils % (Manual) Platelet Estimate PT INR APTT Sodium Potassium Chloride Carbon Dioxide Anion Gap BUN Creatinine Est GFR ( Amer) Est GFR (Non-Af Amer) Random Glucose Calcium Total Bilirubin AST ALT Alkaline Phosphatase Troponin I < 0.0120 NT-Pro-B Natriuret Pep Total Protein Albumin Globulin Albumin/Globulin Ratio Influenza Typ A,B (EIA) Negative for flu a/b Assessment & Plan - Assessment and Plan (Free Text) Assessment: 83 year old female with history of ESRD on HD TTS, COPD, PVD ,CHF with preserved EF, HTN, myelodyplastic syndrome, hypothyroidism and recent pneumonia who is admitted for shortness of breath. Plan: Healthcare associated pneumonia with pleural effusions History of COPD CXR: possible pneumonia vs. pleural effusions Pulmonary Dr. Hernandez, consulted help appreciated White count at 17.7 Legionella pending mycoplasma pending Duonebs Q4 Vancomycin 1g Q24 Zosyn 2.25g Q8 f/u blood cultures History of CHF with preserved EF EKG: NSR at 91 BNP elevated at 6830 Head of bed elevated strict intake and output fluid restriction History of ESRD on HD TTS Nephrology Dr. Langston consulted, help appreciated BUN/CR 43/2.8 No IV fluids currently Renally dose meds History of anemia Current Hb 7.4/Hct 22.5 Continue to monitor Transfuse as needed. f/u iron studies. History of Hypertension Norvasc 10mg PO daily Metoprolol XL 25mg PO daily History of hyperlipidemia Crestor 10mg PO HS Fenofibrate 48mg PO daily History of DM ISS Januvia 25mg PO daily History of hypothyroidism Levothyroxine 100mcg PO daily History of myelodysplastic syndrome/leukemia Followed by Dr. Lopez Day outpatient White count 17.7 On Prasugrel INR 1.2 Thrombocytopenia Current platelet at 97 Continue to monitor PPX: DVT: On Effient at home GI: Florastor 250mg PO BID Heart healthy diet, 2g Na Case discussed with Dr. Huma Seals, PGY1 <Rafael Finn - Last Filed: 05/01/18 20:08> Results - Vital Signs Recent Vital Signs: Last Vital Signs Temp 98.4 F 05/01/18 18:05 Pulse 76 05/01/18 18:38 Resp 23 05/01/18 18:38 BP 175/58 H 05/01/18 18:50 Pulse Ox 100 05/01/18 18:05 - Labs Result Diagrams: 05/01/18 08:08 05/01/18 08:08 Labs: Laboratory Results - last 24 hr 05/01/18 05/01/18 05/01/18 02:14 02:14 02:14 WBC 17.7 H RBC 2.38 L Hgb 7.4 L Hct 22.5 L MCV 94.4 MCH 30.9 MCHC 32.8 L RDW 18.0 H Plt Count 97 L D MPV 9.8 Neut % (Auto) 39.2 L Lymph % (Auto) 13.8 L Preston % (Auto) 44.9 H Eos % (Auto) 1.9 Baso % (Auto) 0.2 Neut # (Auto) 6.9 Lymph # (Auto) 2.4 Preston # (Auto) 7.9 H Eos # (Auto) 0.3 Baso # (Auto) 0.0 Neutrophils % (Manual) 42 L Lymphocytes % (Manual) 14 L Monocytes % (Manual) 43 H Eosinophils % (Manual) 1 Myelocytes % Platelet Estimate Normal Large Platelets Hypochromasia (manual) Poikilocytosis (manual Anisocytosis (manual) Microcytosis (manual) Macrocytosis (manual) Target Cells Tony Cells PT 12.7 H INR 1.2 APTT 32 Sodium 134 Potassium 4.7 Chloride 95 L Carbon Dioxide 29 Anion Gap 14 BUN 43 H Creatinine 2.8 H Est GFR ( Amer) 20 Est GFR (Non-Af Amer) 16 POC Glucose (mg/dL) Random Glucose 210 H Calcium 8.4 L Phosphorus Magnesium Iron TIBC % Saturation Ferritin Total Bilirubin 0.9 AST 42 H D ALT 18 Alkaline Phosphatase 47 Troponin I NT-Pro-B Natriuret Pep 6830 H Total Protein 8.7 H Albumin 3.8 Globulin 4.9 H Albumin/Globulin Ratio 0.8 L Procalcitonin Influenza Typ A,B (EIA) Mycoplasma pneumon IgM Blood Type Antibody Screen Antibody Identification Elution BRYAN, Poly Interpret 05/01/18 05/01/18 05/01/18 02:16 04:09 07:20 WBC RBC Hgb Hct MCV MCH MCHC RDW Plt Count MPV Neut % (Auto) Lymph % (Auto) Preston % (Auto) Eos % (Auto) Baso % (Auto) Neut # (Auto) Lymph # (Auto) Preston # (Auto) Eos # (Auto) Baso # (Auto) Neutrophils % (Manual) Lymphocytes % (Manual) Monocytes % (Manual) Eosinophils % (Manual) Myelocytes % Platelet Estimate Large Platelets Hypochromasia (manual) Poikilocytosis (manual Anisocytosis (manual) Microcytosis (manual) Macrocytosis (manual) Target Cells [place] Cells PT INR APTT Sodium Potassium Chloride Carbon Dioxide Anion Gap BUN Creatinine Est GFR ( Amer) Est GFR (Non-Af Amer) POC Glucose (mg/dL) 105 Random Glucose Calcium Phosphorus Magnesium Iron TIBC % Saturation Ferritin Total Bilirubin AST ALT Alkaline Phosphatase Troponin I < 0.0120 NT-Pro-B Natriuret Pep Total Protein Albumin Globulin Albumin/Globulin Ratio Procalcitonin Influenza Typ A,B (EIA) Negative for flu a/b Mycoplasma pneumon IgM Blood Type Antibody Screen Antibody Identification Elution BRYAN, Poly Interpret 05/01/18 05/01/18 05/01/18 08:08 08:08 08:08 WBC 18.8 H RBC 2.26 L Hgb 7.0 L Hct 21.3 L MCV 94.0 MCH 30.9 MCHC 32.9 L RDW 17.8 H Plt Count 88 L MPV 9.4 Neut % (Auto) 43.3 L Lymph % (Auto) 14.9 L Preston % (Auto) 39.5 H Eos % (Auto) 2.0 Baso % (Auto) 0.3 Neut # (Auto) 8.1 H Lymph # (Auto) 2.8 Preston # (Auto) 7.4 H Eos # (Auto) 0.4 Baso # (Auto) 0.1 Neutrophils % (Manual) 48 L Lymphocytes % (Manual) 17 L Monocytes % (Manual) 30 H Eosinophils % (Manual) 4 Myelocytes % 1 H Platelet Estimate Decreased L Large Platelets Present Hypochromasia (manual) Moderate Poikilocytosis (manual Slight Anisocytosis (manual) Slight Microcytosis (manual) Slight Macrocytosis (manual) Slight Target Cells Slight [place] Cells Slight PT INR APTT Sodium 135 Potassium 4.3 Chloride 100 Carbon Dioxide 31 H Anion Gap 9 L BUN 39 H Creatinine 2.9 H Est GFR ( Amer) 19 Est GFR (Non-Af Amer) 16 POC Glucose (mg/dL) Random Glucose 118 H Calcium 8.2 L Phosphorus 2.6 Magnesium 2.1 Iron 78 TIBC 223 L % Saturation 35 Ferritin 775.0 Total Bilirubin 0.3 AST 36 ALT 17 Alkaline Phosphatase 47 Troponin I NT-Pro-B Natriuret Pep Total Protein 7.7 Albumin 3.1 L Globulin 4.6 H Albumin/Globulin Ratio 0.7 L Procalcitonin Influenza Typ A,B (EIA) Mycoplasma pneumon IgM Blood Type Antibody Screen Antibody Identification Elution BRYAN, Poly Interpret 05/01/18 05/01/18 05/01/18 08:08 08:08 11:18 WBC RBC Hgb Hct MCV MCH MCHC RDW Plt Count MPV Neut % (Auto) Lymph % (Auto) Preston % (Auto) Eos % (Auto) Baso % (Auto) Neut # (Auto) Lymph # (Auto) Preston # (Auto) Eos # (Auto) Baso # (Auto) Neutrophils % (Manual) Lymphocytes % (Manual) Monocytes % (Manual) Eosinophils % (Manual) Myelocytes % Platelet Estimate Large Platelets Hypochromasia (manual) Poikilocytosis (manual Anisocytosis (manual) Microcytosis (manual) Macrocytosis (manual) Target Cells [place] Cells PT INR APTT Sodium Potassium Chloride Carbon Dioxide Anion Gap BUN Creatinine Est GFR ( Amer) Est GFR (Non-Af Amer) POC Glucose (mg/dL) 189 H Random Glucose Calcium Phosphorus Magnesium Iron TIBC % Saturation Ferritin Total Bilirubin AST ALT Alkaline Phosphatase Troponin I NT-Pro-B Natriuret Pep Total Protein Albumin Globulin Albumin/Globulin Ratio Procalcitonin 0.13 L Influenza Typ A,B (EIA) Mycoplasma pneumon IgM Negative Blood Type Antibody Screen Antibody Identification Elution BRYAN, Poly Interpret 05/01/18 05/01/18 13:25 16:31 WBC RBC Hgb Hct MCV MCH MCHC RDW Plt Count MPV Neut % (Auto) Lymph % (Auto) Preston % (Auto) Eos % (Auto) Baso % (Auto) Neut # (Auto) Lymph # (Auto) Preston # (Auto) Eos # (Auto) Baso # (Auto) Neutrophils % (Manual) Lymphocytes % (Manual) Monocytes % (Manual) Eosinophils % (Manual) Myelocytes % Platelet Estimate Large Platelets Hypochromasia (manual) Poikilocytosis (manual Anisocytosis (manual) Microcytosis (manual) Macrocytosis (manual) Target Cells Tony Cells PT INR APTT Sodium Potassium Chloride Carbon Dioxide Anion Gap BUN Creatinine Est GFR ( Amer) Est GFR (Non-Af Amer) POC Glucose (mg/dL) 151 H Random Glucose Calcium Phosphorus Magnesium Iron TIBC % Saturation Ferritin Total Bilirubin AST ALT Alkaline Phosphatase Troponin I NT-Pro-B Natriuret Pep Total Protein Albumin Globulin Albumin/Globulin Ratio Procalcitonin Influenza Typ A,B (EIA) Mycoplasma pneumon IgM Blood Type A POSITIVE Antibody Screen Positive Antibody Identification Non Specific Antibody Elution Negative BRYAN, Poly Interpret Positive H Assessment & Plan - Date & Time Date: 05/01/18 (I have seen and examined the patient. I agree with the findings and plan of care as documented by Dr. Seals. Patient with pneumonia likely nosocomial. Continue vanco and zosyn. Culture blood and sputum. History of CHF and ESRD. Consult to nephro. Monitor daily weights and Intake/output. History of anemia. Likely associated with ESRD. No bleeding r eported. Monitor for acute changes.) Time: 20:05 Attending/Attestation - Attestation I have personally seen and examined this patient.: Yes I have fully participated in the care of the patient.: Yes I have reviewed all pertinent clinical information: Yes
[2018-05-01] MEDS: Piperacillin/Tazobact 2.25 GM in Sodium Chloride 100 ML IV SCH ×4 (06:43→21:24)
[2018-05-01] MEDS: Levothyroxine 100 MCG TAB PO SCH (06:43)
[2018-05-01] MEDS: Albuterol-Ipratrop 3 mg / 0.5 (3 ml) UD INH SCH ×4 (07:41→19:41)
[2018-05-01] MEDS ORDERED: Piperacillin/Tazobact 2.25 GM in Sodium Chloride 100 ML IV SCH (07:45)
[2018-05-01 08:20] LABS: BASO # 0.1 K/uL (0.0-0.2); BASO % 0.3 % (0.0-2.0); EOS # 0.4 K/uL (0.0-0.7); LYMPH # 2.8 K/uL (1.0-4.3); LYMPH % 14.9 % (20.0-40.0); MEAN CORPUSCULAR HEMOGLOBIN 30.9 pg (27.0-31.0); MEAN CORPUSCULAR HGB CONC 32.9 g/dL (33.0-37.0); MEAN PLATELET VOLUME 9.4 fL (7.2-11.7); MONO # 7.4 K/uL (0.0-0.8); MONO % 39.5 % (0.0-10.0); NEUT # 8.1 K/uL (1.8-7.0); NEUT % 43.3 % (50.0-75.0); NRBC % 0.1 % (0.0-2.0); PLATELET COUNT 88 K/uL (130-400); RBC 2.26 Mil/uL (3.80-5.20); RED CELL DISTRIBUTION WIDTH 17.8 % (11.5-14.5); WHITE BLOOD COUNT 18.8 K/uL (4.8-10.8)
[2018-05-01 08:28] LABS: IRON 78 ug/dL (37-170)
--- NOTE | 2018-05-01 08:28 | RAD ---
Date of service: 05/01/2018 PROCEDURE: CHEST RADIOGRAPH, 1 VIEW HISTORY: SOB, cough COMPARISON: 04/12/2018 FINDINGS: LUNGS: Medial right basal coalescent airspace opacities-confluent pulmonary venous congestion with or without the infiltrates here are inferred. Subsegmental interval atelectasis left mid lung zone with or without fissural fluid here. Left basal consolidation compatible with atelectasis and/or infiltrate here as well with left inferolateral pleural thickening. Asymmetrically elevated left hemidiaphragm a compressive atelectasis here with left pleural effusion reaction is favored. PLEURA: No pneumothorax. Left pleural [id number] CARDIOVASCULAR: There is presence of aortic atherosclerotic calcification on x-ray. Cardiomegaly-similar pulmonary venous congestion-similarRight internal jugular PermCath/[address] as before. OSSEOUS STRUCTURES: Bilateral shoulder arthrosis VISUALIZED UPPER ABDOMEN: Normal. OTHER FINDINGS: None. IMPRESSION: Interval patchy coalescent airspace opacities medial right lung base confluent areas of pulmonary venous congestion and pulmonary edema are favored. A concomitant patchy infiltrate-change here is not excluded. Interval subsegmental atelectasis with or without fissural fluid left mid lung zone. Asymmetrically elevated left hemidiaphragm with left basal compressive atelectasis and left inferolateral pleural effusion/thickening re-noted. Concomitant left subsegmental infiltrate here not excluded No definite interval change at the left lung base noted. Other findings as above.
[2018-05-01 08:35] LABS: ALB/GLOB RATIO 0.7 (1.0-2.1); ALBUMIN 3.1 g/dL (3.5-5.0); CALCIUM 8.2 mg/dl (8.6-10.4)
[2018-05-01 08:37] LABS: % IRON SATURATION 35 (20-55); TOTAL IRON BINDING CAPACITY 223 ug/dL (250-450)
[2018-05-01 09:08] LABS: EOSINOPHIL 4 % (0-4); LYMPHOCYTE 17 % (20-40); MONOCYTE 30 % (0-10); MYELOCYTE 1 % (0-0); NEUTROPHIL 48 % (50-75); PLATELET ESTIMATE DECREASED (NORMAL); TOTAL CELLS COUNTED 100
[2018-05-01 09:09] LABS: ANISOCYTOSIS SLIGHT; POIKILOCYTOSIS SLIGHT
[2018-05-01 09:10] LABS: BURR CELLS SLIGHT; HYPOCHROMIC MODERATE; LARGE PLATELETS PRESENT; MICROCYTOSIS SLIGHT; TARGET CELLS SLIGHT
[2018-05-01] MEDS: Saccharomyces Boulardi 250 mg Cap PO SCH ×2 (09:37→17:41)
[2018-05-01] MEDS: Metoprolol Succinate 25 mg XL Tab PO SCH (09:38)
--- NOTE | 2018-05-01 10:57 | CP.PCM.CON ---
History of Present Illness - History of Present Illness History of Present Illness: Patient is a 83 year old female with history of ESRD on HD TTS, COPD, PVD ,CHF with preserved EF, HTN, myelodyplastic syndrome, hypothyroidism and recent pneumonia who presents with daughters for complaints of shortness of mick ath, described as inability to get enough air associated with chest tightness that started at 11pm last night. She states her shortness of breath is worsened if she lies flat. Daughters at bedside state that she usually sleeps propped up. She states that prior to her episode she experienced some "heaviness in her stomach and chest" at about 10:30pm. She denies experiencing any pain in her chest or abdomen. She also states she has been spitting up white foamy material for 3 hours prior to her symptoms started. She denies seeing any blood in the sputum. She denies nausea, vomiting, stating she was able to eat a good dinner last night. She states she felt similarly when she had pneumonia recently. She also admits to some nasal congestion as well, denies sore throat, frontal headache. She denies fevers, chills, headache, dizziness, chest pain, palpitations, nausea, vomiting, diarrhea, constipation. She states her stools remains brown, denies black or bloody stools. She continues to urinate a very small amount, denies dysuria, denies leg pain or swelling. Patient was recently admitted here for similar symptoms. 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 Meds: Norvasc 10mg PO, Florastor 250mg PO BID, Januvia 25mg PO daily, Crstor 10mg, Effient 10mg, Toprol XL 10mg, Levothyroxine 100mcg, Fenofibrate 48mg, Phoslo 667mg TID, Albuterol Q6 Allergies: NKDA Past Patient History - Infectious Disease Hx of Infectious Diseases: None - Tetanus Immunizations Tetanus Immunization: Unknown - Past Medical History & Family History Past Medical History?: Yes - Past Social History Smoking Status: Never Smoked - CARDIAC Hx Hypertension: Yes Hx Peripheral Edema: Yes - PULMONARY Hx Chronic Obstructive Pulmonary Disease (COPD): Yes Hx Pneumonia: Yes - NEUROLOGICAL Hx Neurological Disorder: No - HEENT Hx HEENT Problems: Yes Hx Cataracts: Yes Other/Comment: Corneal replacement both eyes - RENAL Hx Chronic Kidney Disease: Yes Hx Kidney Stones: Yes - ENDOCRINE/METABOLIC Hx Hypothyroidism: Yes - HEMATOLOGICAL/ONCOLOGICAL Hx Anemia: Yes - INTEGUMENTARY Hx Dermatological Problems: No - MUSCULOSKELETAL/RHEUMATOLOGICAL Hx Arthritis: Yes Hx Osteoporosis: Yes - GASTROINTESTINAL Hx Gastritis: Yes - GENITOURINARY/GYNECOLOGICAL Hx Genitourinary Disorders: No - PSYCHIATRIC Hx Substance Use: No - SURGICAL HISTORY Hx Surgeries: Yes Hx Cataract Extraction: Yes Other/Comment: Vascular stents. Bone marrow aspiration. Corneal transplant. Permacat Insertion - ANESTHESIA Hx Anesthesia: Yes Hx Anesthesia Reactions: No Hx Malignant Hyperthermia: No Meds Allergies/Adverse Reactions: Allergies Allergy/AdvReac Type Severity Reaction Status Date / Time No Known Allergies Allergy Verified 05/01/18 01:28 - Medications Medications: Current Medications Albuterol/Ipratropium (Duoneb 3 Mg/0.5 Mg (3 Ml) Ud) 3 ml INH RQ4 [facility] Last Admin: 05/01/18 07:41 Dose: 3 ml Amlodipine Besylate (Norvasc) 10 mg PO DAILY [facility] Last Admin: 05/01/18 09:38 Dose: 10 mg Fenofibrate (Tricor) 48 mg PO QPM [facility] Vancomycin HCl 1 gm/ Sodium (Chloride) 250 mls @ 166.7 mls/hr IVPB Q24H [facility]; Protocol Piperacillin Sod/Tazobactam (Sod 2.25 gm/ Sodium Chloride) 100 mls @ 200 mls/hr IV Q8H [facility]; Protocol Insulin Human Regular (Novolin R) 0 unit SC ACHS [facility]; Protocol Levothyroxine Sodium (Synthroid) 100 mcg PO DAILY@0630 [facility] Last Admin: 05/01/18 06:43 Dose: 100 mcg Metoprolol Succinate (Toprol Xl) 25 mg PO DAILY [facility] Last Admin: 05/01/18 09:38 Dose: 25 mg Prasugrel (Effient) 10 mg PO DAILY [facility] Last Admin: 05/01/18 09:37 Dose: 10 mg Rosuvastatin Calcium (Crestor) 10 mg PO [facility] Saccharomyces Boulardii (Florastor) 250 mg PO BID [facility] Last Admin: 05/01/18 09:37 Dose: 250 mg Sitagliptin Phosphate (Januvia) 25 mg PO DAILY [facility] Last Admin: 05/01/18 09:37 Dose: 25 mg Physical Exam - Constitutional Appears: No Acute Distress, Chronically Ill (face mask) - Head Exam Head Exam: NORMAL INSPECTION, NORMOCEPHALIC - Eye Exam Eye Exam: Normal appearance, PERRL - ENT Exam ENT Exam: Mucous Membranes Moist, Normal Exam - Neck Exam Neck exam: Positive for: Normal Inspection - Respiratory Exam Respiratory Exam: Decreased Breath Sounds, Rales (bases), NORMAL BREATHING PATTERN - Cardiovascular Exam Cardiovascular Exam: Tachycardia, REGULAR RHYTHM - GI/Abdominal Exam GI & Abdominal Exam: Normal Bowel Sounds, Soft - Extremities Exam Extremities exam: Positive for: full ROM, normal inspection - Neurological Exam Neurological exam: Alert, Oriented x3 - Skin Skin Exam: Dry, Intact Results - Vital Signs Recent Vital Signs: Last Vital Signs Temp 98.4 F 05/01/18 08:00 Pulse 84 05/01/18 08:35 Resp 25 H 05/01/18 08:00 BP 186/57 H 05/01/18 08:00 Pulse Ox 99 05/01/18 08:00 - Labs Result Diagrams: 05/01/18 08:08 05/01/18 08:08 Labs: Laboratory Results - last 24 hr 05/01/18 05/01/18 05/01/18 02:14 02:14 02:14 WBC 17.7 H RBC 2.38 L Hgb 7.4 L Hct 22.5 L MCV 94.4 MCH 30.9 MCHC 32.8 L RDW 18.0 H Plt Count 97 L D MPV 9.8 Neut % (Auto) 39.2 L Lymph % (Auto) 13.8 L [place] % (Auto) 44.9 H Eos % (Auto) 1.9 Baso % (Auto) 0.2 Neut # (Auto) 6.9 Lymph # (Auto) 2.4 [place] # (Auto) 7.9 H Eos # (Auto) 0.3 Baso # (Auto) 0.0 Neutrophils % (Manual) 42 L Lymphocytes % (Manual) 14 L Monocytes % (Manual) 43 H Eosinophils % (Manual) 1 Myelocytes % Platelet Estimate Normal Large Platelets Hypochromasia (manual) Poikilocytosis (manual Anisocytosis (manual) Microcytosis (manual) Macrocytosis (manual) Target Cells Tony Cells PT 12.7 H INR 1.2 APTT 32 Sodium 134 Potassium 4.7 Chloride 95 L Carbon Dioxide 29 Anion Gap 14 BUN 43 H Creatinine 2.8 H Est GFR ( Amer) 20 Est GFR (Non-Af Amer) 16 POC Glucose (mg/dL) Random Glucose 210 H Calcium 8.4 L Phosphorus Magnesium Iron TIBC % Saturation Ferritin Total Bilirubin 0.9 AST 42 H D ALT 18 Alkaline Phosphatase 47 Troponin I NT-Pro-B Natriuret Pep 6830 H Total Protein 8.7 H Albumin 3.8 Globulin 4.9 H Albumin/Globulin Ratio 0.8 L Influenza Typ A,B (EIA) 05/01/18 05/01/18 05/01/18 02:16 04:09 07:20 WBC RBC Hgb Hct MCV MCH MCHC RDW Plt Count MPV Neut % (Auto) Lymph % (Auto) [place] % (Auto) Eos % (Auto) Baso % (Auto) Neut # (Auto) Lymph # (Auto) [place] # (Auto) Eos # (Auto) Baso # (Auto) Neutrophils % (Manual) Lymphocytes % (Manual) Monocytes % (Manual) Eosinophils % (Manual) Myelocytes % Platelet Estimate Large Platelets Hypochromasia (manual) Poikilocytosis (manual Anisocytosis (manual) Microcytosis (manual) Macrocytosis (manual) Target Cells Cando Cells PT INR APTT Sodium Potassium Chloride Carbon Dioxide Anion Gap BUN Creatinine Est GFR ( Amer) Est GFR (Non-Af Amer) POC Glucose (mg/dL) 105 Random Glucose Calcium Phosphorus Magnesium Iron TIBC % Saturation Ferritin Total Bilirubin AST ALT Alkaline Phosphatase Troponin I < 0.0120 NT-Pro-B Natriuret Pep Total Protein Albumin Globulin Albumin/Globulin Ratio Influenza Typ A,B (EIA) Negative for flu a/b 05/01/18 05/01/18 05/01/18 08:08 08:08 08:08 WBC 18.8 H RBC 2.26 L Hgb 7.0 L Hct 21.3 L MCV 94.0 MCH 30.9 MCHC 32.9 L RDW 17.8 H Plt Count 88 L MPV 9.4 Neut % (Auto) 43.3 L Lymph % (Auto) 14.9 L [place] % (Auto) 39.5 H Eos % (Auto) 2.0 Baso % (Auto) 0.3 Neut # (Auto) 8.1 H Lymph # (Auto) 2.8 [place] # (Auto) 7.4 H Eos # (Auto) 0.4 Baso # (Auto) 0.1 Neutrophils % (Manual) 48 L Lymphocytes % (Manual) 17 L Monocytes % (Manual) 30 H Eosinophils % (Manual) 4 Myelocytes % 1 H Platelet Estimate Decreased L Large Platelets Present Hypochromasia (manual) Moderate Poikilocytosis (manual Slight Anisocytosis (manual) Slight Microcytosis (manual) Slight Macrocytosis (manual) Slight Target Cells Slight Tony Cells Slight PT INR APTT Sodium 135 Potassium 4.3 Chloride 100 Carbon Dioxide 31 H Anion Gap 9 L BUN 39 H Creatinine 2.9 H Est GFR ( Amer) 19 Est GFR (Non-Af Amer) 16 POC Glucose (mg/dL) Random Glucose 118 H Calcium 8.2 L Phosphorus 2.6 Magnesium 2.1 Iron 78 TIBC 223 L % Saturation 35 Ferritin 775.0 Total Bilirubin 0.3 AST 36 ALT 17 Alkaline Phosphatase 47 Troponin I NT-Pro-B Natriuret Pep Total Protein 7.7 Albumin 3.1 L Globulin 4.6 H Albumin/Globulin Ratio 0.7 L Influenza Typ A,B (EIA) Assessment & Plan (1) Acute CHF Status: Acute (2) ESRD (end stage renal disease) Status: Acute (3) Pneumonia Status: Acute (4) Chronic anemia Status: Acute (5) Heart failure with normal ejection fraction Status: Acute - Assessment and Plan (Free Text) Assessment: esrd pneumonia chf, preserved EF myelodysplastic syndrome uncontrolled htn PLAN: HD TODAY, AGGRESSIVE UF TOLERATED 'antibiotics supportive care add hydralazine for bp
[2018-05-01] MEDS: (Novolin R) Insulin Human Regular 100 units/ml vial SC SCH ×3 (12:15→22:11)
--- NOTE | 2018-05-01 18:04 | CP.PCM.CON ---
Past Patient History - Infectious Disease Hx of Infectious Diseases: None - Tetanus Immunizations Tetanus Immunization: Unknown - Past Medical History & Family History Past Medical History?: Yes - Past Social History Smoking Status: Never Smoked - CARDIAC Hx Hypertension: Yes Hx Peripheral Edema: Yes - PULMONARY Hx Chronic Obstructive Pulmonary Disease (COPD): Yes Hx Pneumonia: Yes - NEUROLOGICAL Hx Neurological Disorder: No - HEENT Hx HEENT Problems: Yes Hx Cataracts: Yes Other/Comment: Corneal replacement both eyes - RENAL Hx Chronic Kidney Disease: Yes Hx Kidney Stones: Yes - ENDOCRINE/METABOLIC Hx Hypothyroidism: Yes - HEMATOLOGICAL/ONCOLOGICAL Hx Anemia: Yes - INTEGUMENTARY Hx Dermatological Problems: No - MUSCULOSKELETAL/RHEUMATOLOGICAL Hx Arthritis: Yes Hx Osteoporosis: Yes - GASTROINTESTINAL Hx Gastritis: Yes - GENITOURINARY/GYNECOLOGICAL Hx Genitourinary Disorders: No - PSYCHIATRIC Hx Substance Use: No - SURGICAL HISTORY Hx Surgeries: Yes Hx Cataract Extraction: Yes Other/Comment: Vascular stents. Bone marrow aspiration. Corneal transplant. Permacat Insertion - ANESTHESIA Hx Anesthesia: Yes Hx Anesthesia Reactions: No Hx Malignant Hyperthermia: No Meds Allergies/Adverse Reactions: Allergies Allergy/AdvReac Type Severity Reaction Status Date / Time No Known Allergies Allergy Verified 05/01/18 01:28 - Medications Medications: Current Medications Albuterol/Ipratropium (Duoneb 3 Mg/0.5 Mg (3 Ml) Ud) 3 ml INH RQ4 [facility] Last Admin: 05/01/18 16:03 Dose: 3 ml Amlodipine Besylate (Norvasc) 10 mg PO DAILY [facility] Last Admin: 05/01/18 09:38 Dose: 10 mg Fenofibrate (Tricor) 48 mg PO QPM [facility] Last Admin: 05/01/18 17:41 Dose: 48 mg Hydralazine HCl (Apresoline) 25 mg PO TID [facility] Last Admin: 05/01/18 17:42 Dose: 25 mg Vancomycin HCl 1 gm/ Sodium (Chloride) 250 mls @ 166.7 mls/hr IVPB Q24H [facility]; Protocol Piperacillin Sod/Tazobactam (Sod 2.25 gm/ Sodium Chloride) 100 mls @ 200 mls/hr IV Q8H [facility]; Protocol Last Admin: 05/01/18 12:14 Dose: 200 mls/hr Insulin Human Regular (Novolin R) 0 unit SC ACHS [facility]; Protocol Last Admin: 12/18/18 17:41 Dose: 1 unit Levothyroxine Sodium (Synthroid) 100 mcg PO DAILY@0630 [facility] Last Admin: 05/01/18 06:43 Dose: 100 mcg Metoprolol Succinate (Toprol Xl) 25 mg PO DAILY [facility] Last Admin: 05/01/18 09:38 Dose: 25 mg Prasugrel (Effient) 10 mg PO DAILY [facility] Last Admin: 05/01/18 09:37 Dose: 10 mg Rosuvastatin Calcium (Crestor) 10 mg PO [facility] Saccharomyces Boulardii (Florastor) 250 mg PO BID [facility] Last Admin: 05/01/18 17:41 Dose: 250 mg Sitagliptin Phosphate (Januvia) 25 mg PO DAILY [facility] Last Admin: 05/01/18 09:37 Dose: 25 mg Results - Vital Signs Recent Vital Signs: Last Vital Signs Temp 99.1 F 05/01/18 16:00 Pulse 97 H 05/01/18 16:00 Resp 17 05/01/18 16:00 BP 151/47 H 05/01/18 16:00 Pulse Ox 100 05/01/18 16:00 - Labs Result Diagrams: 05/01/18 08:08 05/01/18 08:08 Labs: Laboratory Results - last 24 hr 05/01/18 05/01/18 05/01/18 02:14 02:14 02:14 WBC 17.7 H RBC 2.38 L Hgb 7.4 L Hct 22.5 L MCV 94.4 MCH 30.9 MCHC 32.8 L RDW 18.0 H Plt Count 97 L D MPV 9.8 Neut % (Auto) 39.2 L Lymph % (Auto) 13.8 L [place] % (Auto) 44.9 H Eos % (Auto) 1.9 Baso % (Auto) 0.2 Neut # (Auto) 6.9 Lymph # (Auto) 2.4 [place] # (Auto) 7.9 H Eos # (Auto) 0.3 Baso # (Auto) 0.0 Neutrophils % (Manual) 42 L Lymphocytes % (Manual) 14 L Monocytes % (Manual) 43 H Eosinophils % (Manual) 1 Myelocytes % Platelet Estimate Normal Large Platelets Hypochromasia (manual) Poikilocytosis (manual Anisocytosis (manual) Microcytosis (manual) Macrocytosis (manual) Target Cells Tony Cells PT 12.7 H INR 1.2 APTT 32 Sodium 134 Potassium 4.7 Chloride 95 L Carbon Dioxide 29 Anion Gap 14 BUN 43 H Creatinine 2.8 H Est GFR ( Amer) 20 Est GFR (Non-Af Amer) 16 POC Glucose (mg/dL) Random Glucose 210 H Calcium 8.4 L Phosphorus Magnesium Iron TIBC % Saturation Ferritin Total Bilirubin 0.9 AST 42 H D ALT 18 Alkaline Phosphatase 47 Troponin I NT-Pro-B Natriuret Pep 6830 H Total Protein 8.7 H Albumin 3.8 Globulin 4.9 H Albumin/Globulin Ratio 0.8 L Procalcitonin Influenza Typ A,B (EIA) Mycoplasma pneumon IgM Blood Type 05/01/18 05/01/18 05/01/18 02:16 04:09 07:20 WBC RBC Hgb Hct MCV MCH MCHC RDW Plt Count MPV Neut % (Auto) Lymph % (Auto) [place] % (Auto) Eos % (Auto) Baso % (Auto) Neut # (Auto) Lymph # (Auto) [place] # (Auto) Eos # (Auto) Baso # (Auto) Neutrophils % (Manual) Lymphocytes % (Manual) Monocytes % (Manual) Eosinophils % (Manual) Myelocytes % Platelet Estimate Large Platelets Hypochromasia (manual) Poikilocytosis (manual Anisocytosis (manual) Microcytosis (manual) Macrocytosis (manual) Target Cells Tell Cells PT INR APTT Sodium Potassium Chloride Carbon Dioxide Anion Gap BUN Creatinine Est GFR ( Amer) Est GFR (Non-Af Amer) POC Glucose (mg/dL) 105 Random Glucose Calcium Phosphorus Magnesium Iron TIBC % Saturation Ferritin Total Bilirubin AST ALT Alkaline Phosphatase Troponin I < 0.0120 NT-Pro-B Natriuret Pep Total Protein Albumin Globulin Albumin/Globulin Ratio Procalcitonin Influenza Typ A,B (EIA) Negative for flu a/b Mycoplasma pneumon IgM Blood Type 05/01/18 05/01/18 05/01/18 08:08 08:08 08:08 WBC 18.8 H RBC 2.26 L Hgb 7.0 L Hct 21.3 L MCV 94.0 MCH 30.9 MCHC 32.9 L RDW 17.8 H Plt Count 88 L MPV 9.4 Neut % (Auto) 43.3 L Lymph % (Auto) 14.9 L [place] % (Auto) 39.5 H Eos % (Auto) 2.0 Baso % (Auto) 0.3 Neut # (Auto) 8.1 H Lymph # (Auto) 2.8 [place] # (Auto) 7.4 H Eos # (Auto) 0.4 Baso # (Auto) 0.1 Neutrophils % (Manual) 48 L Lymphocytes % (Manual) 17 L Monocytes % (Manual) 30 H Eosinophils % (Manual) 4 Myelocytes % 1 H Platelet Estimate Decreased L Large Platelets Present Hypochromasia (manual) Moderate Poikilocytosis (manual Slight Anisocytosis (manual) Slight Microcytosis (manual) Slight Macrocytosis (manual) Slight Target Cells Slight Tony Cells Slight PT INR APTT Sodium 135 Potassium 4.3 Chloride 100 Carbon Dioxide 31 H Anion Gap 9 L BUN 39 H Creatinine 2.9 H Est GFR ( Amer) 19 Est GFR (Non-Af Amer) 16 POC Glucose (mg/dL) Random Glucose 118 H Calcium 8.2 L Phosphorus 2.6 Magnesium 2.1 Iron 78 TIBC 223 L % Saturation 35 Ferritin 775.0 Total Bilirubin 0.3 AST 36 ALT 17 Alkaline Phosphatase 47 Troponin I NT-Pro-B Natriuret Pep Total Protein 7.7 Albumin 3.1 L Globulin 4.6 H Albumin/Globulin Ratio 0.7 L Procalcitonin Influenza Typ A,B (EIA) Mycoplasma pneumon IgM Blood Type 05/01/18 05/01/18 05/01/18 08:08 08:08 11:18 WBC RBC Hgb Hct MCV MCH MCHC RDW Plt Count MPV Neut % (Auto) Lymph % (Auto) [place] % (Auto) Eos % (Auto) Baso % (Auto) Neut # (Auto) Lymph # (Auto) [place] # (Auto) Eos # (Auto) Baso # (Auto) Neutrophils % (Manual) Lymphocytes % (Manual) Monocytes % (Manual) Eosinophils % (Manual) Myelocytes % Platelet Estimate Large Platelets Hypochromasia (manual) Poikilocytosis (manual Anisocytosis (manual) Microcytosis (manual) Macrocytosis (manual) Target Cells Tony Cells PT INR APTT Sodium Potassium Chloride Carbon Dioxide Anion Gap BUN Creatinine Est GFR ( Amer) Est GFR (Non-Af Amer) POC Glucose (mg/dL) 189 H Random Glucose Calcium Phosphorus Magnesium Iron TIBC % Saturation Ferritin Total Bilirubin AST ALT Alkaline Phosphatase Troponin I NT-Pro-B Natriuret Pep Total Protein Albumin Globulin Albumin/Globulin Ratio Procalcitonin 0.13 L Influenza Typ A,B (EIA) Mycoplasma pneumon IgM Negative Blood Type 05/01/18 05/01/18 13:25 16:31 WBC RBC Hgb Hct MCV MCH MCHC RDW Plt Count MPV Neut % (Auto) Lymph % (Auto) [place] % (Auto) Eos % (Auto) Baso % (Auto) Neut # (Auto) Lymph # (Auto) [place] # (Auto) Eos # (Auto) Baso # (Auto) Neutrophils % (Manual) Lymphocytes % (Manual) Monocytes % (Manual) Eosinophils % (Manual) Myelocytes % Platelet Estimate Large Platelets Hypochromasia (manual) Poikilocytosis (manual Anisocytosis (manual) Microcytosis (manual) Macrocytosis (manual) Target Cells Tell Cells PT INR APTT Sodium Potassium Chloride Carbon Dioxide Anion Gap BUN Creatinine Est GFR ( Amer) Est GFR (Non-Af Amer) POC Glucose (mg/dL) 151 H Random Glucose Calcium Phosphorus Magnesium Iron TIBC % Saturation Ferritin Total Bilirubin AST ALT Alkaline Phosphatase Troponin I NT-Pro-B Natriuret Pep Total Protein Albumin Globulin Albumin/Globulin Ratio Procalcitonin Influenza Typ A,B (EIA) Mycoplasma pneumon IgM Blood Type A POSITIVE
--- NOTE | 2018-05-01 18:06 | CP.PCM.PN ---
Subjective - Date & Time of Evaluation Date of Evaluation: 05/01/18 Time of Evaluation: 11:30 - Subjective Subjective: PGY-1 Medicine Progress Note for Dr. Montes Patient was seen and examined today at bedside in no acute distress. Nurse reports no overnight events. Patient reports improved breathing and chest tightness with NC supplemental oxygen and Duoneb treatments. Denies chest pain, headache, abdominal pain, nausea, vomiting, constipation, diarrhea. Objective - Vital Signs/Intake and Output Vital Signs (last 24 hours): Temp Pulse Resp BP Pulse Ox 99.1 F 97 H 17 151/47 H 100 05/01/18 16:00 05/01/18 16:00 05/01/18 16:00 05/01/18 16:00 05/01/18 16:00 Intake and Output: 05/01/18 05/01/18 06:59 18:59 Intake Total 200 Balance 200 - Medications Medications: Current Medications Albuterol/Ipratropium (Duoneb 3 Mg/0.5 Mg (3 Ml) Ud) 3 ml INH RQ4 [facility] Last Admin: 05/01/18 16:03 Dose: 3 ml Amlodipine Besylate (Norvasc) 10 mg PO DAILY [facility] Last Admin: 05/01/18 09:38 Dose: 10 mg Fenofibrate (Tricor) 48 mg PO QPM [facility] Last Admin: 05/01/18 17:41 Dose: 48 mg Hydralazine HCl (Apresoline) 25 mg PO TID [facility] Last Admin: 05/01/18 17:42 Dose: 25 mg Vancomycin HCl 1 gm/ Sodium (Chloride) 250 mls @ 166.7 mls/hr IVPB Q24H [facility]; Protocol Piperacillin Sod/Tazobactam (Sod 2.25 gm/ Sodium Chloride) 100 mls @ 200 mls/hr IV Q8H [facility]; Protocol Last Admin: 05/01/18 12:14 Dose: 200 mls/hr Insulin Human Regular (Novolin R) 0 unit SC ACHS [facility]; Protocol Last Admin: 05/01/18 17:41 Dose: 1 unit Levothyroxine Sodium (Synthroid) 100 mcg PO DAILY@0630 [facility] Last Admin: 05/01/18 06:43 Dose: 100 mcg Metoprolol Succinate (Toprol Xl) 25 mg PO DAILY [facility] Last Admin: 05/01/18 09:38 Dose: 25 mg Prasugrel (Effient) 10 mg PO DAILY [facility] Last Admin: 05/01/18 09:37 Dose: 10 mg Rosuvastatin Calcium (Crestor) 10 mg PO [facility] Saccharomyces Boulardii (Florastor) 250 mg PO BID [facility] Last Admin: 05/01/18 17:41 Dose: 250 mg Sitagliptin Phosphate (Januvia) 25 mg PO DAILY [facility] Last Admin: 05/01/18 09:37 Dose: 25 mg - Labs Labs: 05/01/18 08:08 05/01/18 08:08 PT 12.7 SECONDS (9.7-12.2) H 05/01/18 02:14 INR 1.2 05/01/18 02:14 APTT 32 SECONDS (21-34) 05/01/18 02:14 - Constitutional Appears: Non-toxic, No Acute Distress - Head Exam Head Exam: ATRAUMATIC, NORMOCEPHALIC - Eye Exam Eye Exam: EOMI, Normal appearance - ENT Exam ENT Exam: Mucous Membranes Dry - Respiratory Exam Respiratory Exam: Decreased Breath Sounds, Rales (along enire L lung, bases>apex). absent: Rhonchi, Wheezes Additional comments: NC on 4L O2 - Cardiovascular Exam Cardiovascular Exam: REGULAR RHYTHM, +S1, +S2. absent: Gallop, Rubs, Murmur Additional comments: Permacath in R chest, dressings c/d/i - GI/Abdominal Exam GI & Abdominal Exam: Soft, Normal Bowel Sounds. absent: Firm, Guarding, Tenderness - Extremities Exam Extremities Exam: Normal Capillary Refill. absent: Calf Tenderness Additional comments: peripheral pulses palpable bilateraly (radial, DP) IV access in L AC ankles swollen bilaterally - Back Exam Back Exam: absent: CVA tenderness (L), CVA tenderness (R) - Neurological Exam Neurological Exam: Alert, Awake, Oriented x3 - Psychiatric Exam Psychiatric exam: Normal Affect, Normal Mood - Skin Skin Exam: Normal Color, Warm Assessment and Plan - Assessment and Plan (Free Text) Assessment: 83yo female PMH ESRD on HD TTS, COPD, PVD , CHF with preserved EF, HTN, myelodyplastic syndrome, hypothyroidism and recent pneumonia who is admitted for shortness of breath. Plan: Healthcare Associated Pneumonia with pleural effusions History of COPD - CXR (05/01): Interval patchy coalescent airspace opacities medial right lung base confluent areas of pulmonary venous congestion and pulmonary edema are favored. A concomitant patchy infiltrate-change here is not excluded. Interval subsegmental atelectasis with or without fissural fluid left mid lung zone. Asymmetrically elevated left hemidiaphragm with left basal compressive atelectasis and left inferolateral pleural effusion/thickening re-noted. Concomitant left subsegmental infiltrate here not excluded No definite interval change at the left lung base noted. - Pulm consulted: Dr. Hernandez - help appreciated - WBC 17.7 on admission - Mycoplasma neg, Flu A/B neg - f/u Legionella - Blood Cx (05/01): collected - Duonebs q4 [facility] - Vancomycin 1gm IVPB daily (started 05/01) - Trough 05/04 @ 0930 - Zosyn 2.25gm IV q8 (started 05/01) ESRD on HD TTS - Nephro consulted: Dr. Langston - recbalbina appreciated - HD restarted on TTS schedule - renally dose medication Anemia of Chronic Disease - H&H 7.4/22.5 on admission - Iron studies: Fe 78, TIBC 223, %sat 35, Ferritin 775.0 - H&H 7.0/21.3 today - transfused 2u PRBC with HD today (05/01) - monitor with AM labs - transfuse prn Diastolic CHF, chronic - BNP 6830 on admission - EKG: NSR@91 - elevate head of bed - Strict I&Os - Fluid restriction Hypertension - home Norvasc 10mg PO daily - home Metoprolol XL 25mg PO daily - Hydralazine 25mg po tid Hyperlipidemia - home Crestor 10mg PO HS - home Fenofibrate 48mg PO qPM Diabetes Mellitus - home Januvia 25mg PO daily - Accuchecks ACHS - ISS - hypoglycemia protocol Hypothyroidism - home Levothyroxine 100mcg PO daily History of myelodysplastic syndrome/leukemia - Followed by Dr. Lopez Day outpatient - WBC 17.7 on admission, INR 1.2 - home Prasugrel held 2/2 thrombocytopenia Thrombocytopenia - Plts 97 on admission - Plts 88 today - hold Prasugrel - monitor with AM labs PPX: - DVT: home Prasugrel held for increased bleed risk from thrombocytopenia, SCDs - GI: Florastor 250mg PO BID - Diet: Heart healthy diet, 2g Na Dispo: referral for d/c d/w Dr. Simon Fagan PGY-1
[2018-05-02] MEDS: Albuterol-Ipratrop 3 mg / 0.5 (3 ml) UD INH SCH ×5 (00:47→23:59)
[2018-05-02] MEDS: Piperacillin/Tazobact 2.25 GM in Sodium Chloride 100 ML IV SCH ×3 (04:39→20:56)
[2018-05-02] MEDS: Levothyroxine 100 MCG TAB PO SCH (06:23)
[2018-05-02] MEDS: (Novolin R) Insulin Human Regular 100 units/ml vial SC SCH ×4 (08:10→21:17)
[2018-05-02] MEDS: Metoprolol Succinate 25 mg XL Tab PO SCH (10:21)
[2018-05-02] MEDS: Saccharomyces Boulardi 250 mg Cap PO SCH ×2 (10:22→17:49)
--- NOTE | 2018-05-02 11:01 | CP.PCM.PN ---
<Gail Fagan Y - Last Filed: 05/02/18 15:21> Subjective - Date & Time of Evaluation Date of Evaluation: 05/02/18 Time of Evaluation: 06:55 - Subjective Subjective: PGY-1 Medicine Progress Note for Dr. Miguel Patient was seen and examined today at bedside in no acute distress. She had just been transported and was still fidgeting in bed to get comfortable. Nurse reports no overnight events. Patient has no acute complaints. States that she is feeling better and can breath easily. She had her first round of inpatient HD this admission yesterday and tolerated it well. Denies chest pain, shortness of breath, abdominal pain, nausea, vomiting, constipation, diarrhea. She still isn't urinating much and hasn't had a BM since yesterday morning. Objective - Vital Signs/Intake and Output Vital Signs (last 24 hours): Temp Pulse Resp BP Pulse Ox 98.2 F 79 20 149/68 96 05/02/18 07:00 05/02/18 07:00 05/02/18 07:00 05/02/18 07:00 05/02/18 07:00 Intake and Output: 05/02/18 05/02/18 06:59 18:59 Intake Total 1575 Balance 1575 - Medications Medications: Current Medications Acetaminophen (Tylenol 325mg Tab) 650 mg PO Q6 PRN PRN Reason: Pain, moderate (4-7) Last Admin: 05/01/18 19:45 Dose: 650 mg Albuterol/Ipratropium (Duoneb 3 Mg/0.5 Mg (3 Ml) Ud) 3 ml INH RQ4 [facility] Last Admin: 05/02/18 03:47 Dose: Not Given Amlodipine Besylate (Norvasc) 10 mg PO DAILY [facility] Last Admin: 05/02/18 10:21 Dose: 10 mg Benzonatate (Tessalon Perles) 100 mg PO TID [facility] Last Admin: 05/02/18 10:21 Dose: 100 mg Fenofibrate (Tricor) 48 mg PO QPM [facility] Last Admin: 05/01/18 17:41 Dose: 48 mg Hydralazine HCl (Apresoline) 25 mg PO TID [facility] Last Admin: 05/02/18 10:21 Dose: 25 mg Vancomycin HCl 1 gm/ Sodium (Chloride) 250 mls @ 166.7 mls/hr IVPB Q24H [facility]; Protocol Piperacillin Sod/Tazobactam (Sod 2.25 gm/ Sodium Chloride) 100 mls @ 200 mls/hr IV Q8H [facility]; Protocol Last Admin: 05/02/18 04:39 Dose: 200 mls/hr Insulin Human Regular (Novolin R) 0 unit SC ACHS [facility]; Protocol Last Admin: 05/02/18 08:10 Dose: Not Given Levothyroxine Sodium (Synthroid) 100 mcg PO DAILY@0630 [facility] Last Admin: 05/02/18 06:23 Dose: 100 mcg Metoprolol Succinate (Toprol Xl) 25 mg PO DAILY [facility] Last Admin: 05/02/18 10:21 Dose: 25 mg Prasugrel (Effient) 10 mg PO DAILY [facility] Last Admin: 05/01/18 09:37 Dose: 10 mg Rosuvastatin Calcium (Crestor) 10 mg PO HS [facility] Last Admin: 05/01/18 22:24 Dose: 10 mg Saccharomyces Boulardii (Florastor) 250 mg PO BID [facility] Last Admin: 05/02/18 10:22 Dose: 250 mg Sitagliptin Phosphate (Januvia) 25 mg PO DAILY [facility] Last Admin: 05/02/18 10:22 Dose: 25 mg - Labs Labs: 05/01/18 08:08 05/01/18 08:08 PT 12.7 SECONDS (9.7-12.2) H 05/01/18 02:14 INR 1.2 05/01/18 02:14 APTT 32 SECONDS (21-34) 05/01/18 02:14 - Constitutional Appears: Non-toxic, No Acute Distress - Head Exam Head Exam: ATRAUMATIC, NORMOCEPHALIC - Eye Exam Eye Exam: EOMI, Normal appearance - ENT Exam ENT Exam: Mucous Membranes Moist - Respiratory Exam Respiratory Exam: Decreased Breath Sounds, Rales (L sided, bases>apex). absent: Rhonchi, Wheezes Additional comments: NC on 2L O2 - Cardiovascular Exam Cardiovascular Exam: REGULAR RHYTHM, +S1, +S2. absent: Gallop, Rubs, Murmur Additional comments: Permacath in R chest, dressings c/d/i - GI/Abdominal Exam GI & Abdominal Exam: Soft, Normal Bowel Sounds. absent: Firm, Guarding, Tenderness - Extremities Exam Extremities Exam: Normal Capillary Refill. absent: Calf Tenderness Additional comments: peripheral pulses palpable bilateraly (radial, DP) IV access in L AC bilateral ankle swelling improved - Neurological Exam Neurological Exam: Alert, Awake, Oriented x3 - Psychiatric Exam Psychiatric exam: Normal Affect, Normal Mood - Skin Skin Exam: Normal Color, Warm Assessment and Plan - Assessment and Plan (Free Text) Assessment: 83yo female PMH ESRD on HD TTS, COPD, PVD , CHF with preserved EF, HTN, myelodyplastic syndrome, hypothyroidism and recent pneumonia who is admitted for shortness of breath. Plan: Healthcare Associated Pneumonia with pleural effusions History of COPD - CXR (05/01): Interval patchy coalescent airspace opacities medial right lung base confluent areas of pulmonary venous congestion and pulmonary edema are favored. A concomitant patchy infiltrate-change here is not excluded. Interval subsegmental atelectasis with or without fissural fluid left mid lung zone. Asymmetrically elevated left hemidiaphragm with left basal compressive a telectasis and left inferolateral pleural effusion/thickening re-noted. Concomitant left subsegmental infiltrate here not excluded No definite interval change at the left lung base noted. - Pulm consulted: Dr. Hernandez - help appreciated - ID consulted: Dr. Rodriguez - help appreciated - WBC 17.7 on admission - Mycoplasma neg, Flu A/B neg, Legionella neg - Blood Cx (05/01): no growth @ 24 hrs - Nares MRSA screen (05.01) neg - Duonebs q4 [facility] - Vancomycin 1gm IVPB daily (started 05/01) - Trough 05/04 @ 0930 - Zosyn 2.25gm IV q8 (started 05/01) - Tessalon Perles 100mg po tid ESRD on HD TTS - Nephro consulted: Dr. Langston - recs appreciated - HD restarted on TTS schedule - renally dose medication Thrombocytopenia - Plts 97 on admission -> 88 -> 78 today - continue to hold Prasugrel - f/u HIT/NOMAN to r/o HIT - monitor with AM labs Anemia of Chronic Disease - H&H 7.4/22.5 on admission - Iron studies: Fe 78, TIBC 223, %sat 35, Ferritin 775.0 - transfused 2u PRBC with HD (05/01), Hb responded appropriately (7.0 -> 10.8) - monitor with AM labs - transfuse prn Diastolic CHF, chronic - BNP 6830 on admission - EKG: NSR@91 - elevate head of bed - Strict I&Os - Fluid restriction Hypertension - home Norvasc 10mg PO daily - home Metoprolol XL 25mg PO daily - Hydralazine 25mg po tid Hyperlipidemia - home Crestor 10mg PO HS - home Fenofibrate 48mg PO qPM Diabetes Mellitus - home Januvia 25mg PO daily - Accuchecks ACHS - ISS - hypoglycemia protocol Hypothyroidism - home Levothyroxine 100mcg PO daily History of myelodysplastic syndrome/leukemia - Followed by Dr. Lopez Day outpatient - WBC 17.7 on admission, INR 1.2 - home Prasugrel held 2/2 thrombocytopenia PPX: - DVT: home Prasugrel held for increased bleed risk from thrombocytopenia, SCDs - GI: Florastor 250mg PO BID - Diet: Heart healthy diet, 2g Na - Palliative Care consult for goals of care discussion as this is her third hospitalization in as many months - Tylenol 650mg po q6 prn for headache/pain Dispo: SW referral for d/c. PT eval for d/c d/w Dr. Myriam Fagan PGY-1 <Cherie Miguel V - Last Filed: 05/06/18 18:49> Objective - Vital Signs/Intake and Output Vital Signs (last 24 hours): Temp Pulse Resp BP Pulse Ox 98.0 F 97 H 18 159/72 H 98 05/06/18 07:00 05/06/18 14:10 05/06/18 14:10 05/06/18 14:10 05/06/18 07:00 Intake and Output: 05/06/18 05/06/18 06:59 18:59 Intake Total 400 Balance 400 - Medications Medications: Current Medications Acetaminophen (Tylenol 325mg Tab) 650 mg PO Q6 PRN PRN Reason: Pain, moderate (4-7) Last Admin: 05/04/18 19:21 Dose: 650 mg Albuterol/Ipratropium (Duoneb 3 Mg/0.5 Mg (3 Ml) Ud) 3 ml INH RQ4 [facility] Last Admin: 05/06/18 08:47 Dose: 3 ml Amlodipine Besylate (Norvasc) 10 mg PO DAILY [facility] Last Admin: 05/06/18 09:36 Dose: 10 mg Benzonatate (Tessalon Perles) 100 mg PO TID [facility] Last Admin: 05/06/18 14:11 Dose: 100 mg Epoetin Brandon (Procrit) 10,000 unit IV TTS [facility] Last Admin: 05/05/18 12:41 Dose: 10,000 unit Fenofibrate (Tricor) 48 mg PO QPM [facility] Last Admin: 05/05/18 17:29 Dose: 48 mg Fluticasone/Vilanterol (Breo Ellipta 100-25 Mcg Inh) 1 puff INH RQD [facility] Hydralazine HCl (Apresoline) 25 mg PO TID [facility] Last Admin: 05/06/18 14:11 Dose: 25 mg Piperacillin Sod/Tazobactam (Sod 2.25 gm/ Sodium Chloride) 100 mls @ 200 mls/hr IV Q8H [facility]; Protocol Last Admin: 05/06/18 12:10 Dose: 200 mls/hr Vancomycin HCl 1 gm/ Sodium (Chloride) 250 mls @ 166.7 mls/hr IVPB MWF [facility]; Protocol Last Admin: 05/04/18 09:59 Dose: 166.7 mls/hr Insulin Human Regular (Novolin R) 0 unit SC ACHS [facility]; Protocol Last Admin: 05/06/18 12:09 Dose: 3 unit Levothyroxine Sodium (Synthroid) 100 mcg PO DAILY@0630 [facility] Last Admin: 05/06/18 05:44 Dose: 100 mcg Metoprolol Succinate (Toprol Xl) 25 mg PO DAILY [facility] Last Admin: 05/06/18 09:36 Dose: 25 mg Prasugrel (Effient) 10 mg PO DAILY [facility] Last Admin: 05/01/18 09:37 Dose: 10 mg Prednisolone Acetate (Pred Forte 1% Opht Susp) 0 ml OU BID [facility] Last Admin: 05/06/18 09:37 Dose: 1 drop Rosuvastatin Calcium (Crestor) 10 mg PO HS [facility] Last Admin: 05/05/18 21:21 Dose: 10 mg Saccharomyces Boulardii (Florastor) 250 mg PO BID [facility] Last Admin: 05/06/18 09:42 Dose: 250 mg Sitagliptin Phosphate (Januvia) 25 mg PO DAILY [facility] Last Admin: 05/06/18 09:36 Dose: 25 mg - Labs Labs: 05/06/18 08:09 05/06/18 08:09 PT 12.7 SECONDS (9.7-12.2) H 05/01/18 02:14 INR 1.2 05/01/18 02:14 APTT 32 SECONDS (21-34) 05/01/18 02:14 Attending/Attestation - Attestation I have personally seen and examined this patient.: Yes I have fully participated in the care of the patient.: Yes I have reviewed all pertinent clinical information, including history, physical exam and plan: Yes
[2018-05-02 11:57] LABS: BASO # 0.1 K/uL (0.0-0.2); MONO # 5.9 K/uL (0.0-0.8); PLATELET COUNT 78 K/uL (130-400)
[2018-05-02 12:07] LABS: BASO % 0.4 % (0.0-2.0); EOS # 0.4 K/uL (0.0-0.7); EOS % 2.6 % (0.0-4.0); MEAN CORPUSCULAR HEMOGLOBIN 30.1 pg (27.0-31.0); MEAN CORPUSCULAR HGB CONC 33.3 g/dL (33.0-37.0); MONO % 38.7 % (0.0-10.0); NEUT # 6.9 K/uL (1.8-7.0); NEUT % 45.3 % (50.0-75.0); RBC 3.58 Mil/uL (3.80-5.20); RED CELL DISTRIBUTION WIDTH 19.4 % (11.5-14.5); WHITE BLOOD COUNT 15.3 K/uL (4.8-10.8)
[2018-05-02 12:17] LABS: ALB/GLOB RATIO 0.7 (1.0-2.1); ALBUMIN 3.7 g/dL (3.5-5.0); CALCIUM 8.3 mg/dl (8.6-10.4); HEMOGLOBIN 10.8 g/dL (11.0-16.0); MEAN CELL VOLUME 90.4 fL (81.0-99.0)
--- NOTE | 2018-05-02 12:31 | CARD ---
APPROVED REPORT Date of service: 05/01/2018 EKG Measurement Heart [id number] <Conclusion> Normal sinus rhythm Voltage criteria for left ventricular hypertrophy Abnormal ECG
[2018-05-02 12:37] LABS: EOSINOPHIL 2 % (0-4); MONOCYTE 39 % (0-10); TOTAL CELLS COUNTED 100
[2018-05-02 12:38] LABS: ANISOCYTOSIS SLIGHT; LYMPHOCYTE 10 % (20-40); NEUTROPHIL 49 % (50-75); PLATELET ESTIMATE DECREASED (NORMAL); POIKILOCYTOSIS SLIGHT
[2018-05-02 12:39] LABS: HYPOCHROMIC SLIGHT
--- NOTE | 2018-05-02 13:23 | VASCLAB ---
Date of service: 05/02/2018 PROCEDURE: Lower Extremity Venous Duplex Exam. HISTORY: b/l lower extremity swelling PRIORS: None. TECHNIQUE: Bilateral common femoral, femoral, popliteal and posterior tibial, peroneal and great saphenous veins were evaluated. Flow was assessed with color Doppler, compressibility, assessment of phasic flow and augmentation response. Report prepared by Lamberto Arias, EVERARDO, RVT FINDINGS: RIGHT: 1. Common Femoral Vein: 1.1. Compressibility - Fully compressible: Thrombus - None : Flow - Phasic: Augmentation -Normal: Reflux - None. 2. Femoral Vein: 2.1. Compressibility - Fully compressible: Thrombus - None : Flow - Phasic: Augmentation -Normal: Reflux - None. 3. Popliteal Vein: 3.1. Compressibility - Fully compressible: Thrombus - None : Flow - Phasic: Augmentation -Normal: Reflux - None. 4. Posterior Tibial Vein: 4.1. Compressibility - Fully compressible: Thrombus - None: Flow - Phasic: Augmentation -Normal: Reflux - None. 5. Peroneal Vein: 5.1. Compressibility - Fully compressible: Thrombus - None: Flow - Phasic: Augmentation -Normal: Reflux - None. 6. Great Saphenous Vein: 6.1. Compressibility - Fully compressible: Thrombus - None: Flow - Phasic: Augmentation - Normal: Reflux - None. LEFT: 1. Common Femoral Vein: 1.1. Compressibility - Fully compressible: Thrombus - None: Flow - Phasic: Augmentation -Normal: Reflux - None. 2. Femoral Vein: 2.1. Compressibility - Fully compressible: Thrombus - None: Flow - Phasic: Augmentation -Normal: Reflux - None. 3. Popliteal Vein: 3.1. Compressibility - Fully compressible: Thrombus - None : Flow - Phasic: Augmentation -Normal: Reflux - None. 4. Posterior Tibial Vein: 4.1. Compressibility - Fully compressible: Thrombus - None: Flow - Phasic: Augmentation -Normal: Reflux - None. 5. Peroneal Vein: 5.1. Compressibility - Fully compressible: Thrombus - None: Flow - Phasic: Augmentation -Normal: Reflux - None. 6. Great Saphenous Vein: 6.1. Compressibility - Fully compressible: Thrombus - None: Flow - Phasic: Augmentation - Normal: Reflux - None. OTHER FINDINGS: Right: None significant. Left: None significant. IMPRESSION: Right: No evidence of deep or superficial vein thrombosis of the right lower extremity. Normal valve function noted of the right side. Left: No evidence of deep or superficial vein thrombosis of the left lower extremity. Normal valve function noted of the left side.
--- NOTE | 2018-05-02 13:59 | CP.PCM.PN ---
Subjective - Date & Time of Evaluation Date of Evaluation: 05/02/18 Time of Evaluation: 13:57 - Subjective Subjective: feels better on nasal cannula HD today no chest pain chronic sob no palpitations no fever no chills no diarrhea no nausea decreased urine production no rash no arthralgias Objective - Vital Signs/Intake and Output Vital Signs (last 24 hours): Temp Pulse Resp BP Pulse Ox 98.2 F 79 20 168/65 H 96 05/02/18 07:00 05/02/18 07:30 05/02/18 07:00 05/02/18 13:55 05/02/18 07:00 Intake and Output: 05/02/18 05/02/18 06:59 18:59 Intake Total 1575 Balance 1575 - Medications Medications: Current Medications Acetaminophen (Tylenol 325mg Tab) 650 mg PO Q6 PRN PRN Reason: Pain, moderate (4-7) Last Admin: 05/01/18 19:45 Dose: 650 mg Albuterol/Ipratropium (Duoneb 3 Mg/0.5 Mg (3 Ml) Ud) 3 ml INH RQ4 [facility] Last Admin: 05/02/18 03:47 Dose: Not Given Amlodipine Besylate (Norvasc) 10 mg PO DAILY [facility] Last Admin: 05/02/18 10:21 Dose: 10 mg Benzonatate (Tessalon Perles) 100 mg PO TID [facility] Last Admin: 05/02/18 13:49 Dose: 100 mg Fenofibrate (Tricor) 48 mg PO QPM [facility] Last Admin: 05/01/18 17:41 Dose: 48 mg Hydralazine HCl (Apresoline) 25 mg PO TID [facility] Last Admin: 05/02/18 13:49 Dose: 25 mg Vancomycin HCl 1 gm/ Sodium (Chloride) 250 mls @ 166.7 mls/hr IVPB Q24H [facility]; Protocol Last Admin: 05/02/18 11:56 Dose: 166.7 mls/hr Piperacillin Sod/Tazobactam (Sod 2.25 gm/ Sodium Chloride) 100 mls @ 200 mls/hr IV Q8H [facility]; Protocol Last Admin: 05/02/18 13:48 Dose: 200 mls/hr Insulin Human Regular (Novolin R) 0 unit SC ACHS [facility]; Protocol Last Admin: 12/19/18 12:11 Dose: 1 unit Levothyroxine Sodium (Synthroid) 100 mcg PO DAILY@0630 [facility] Last Admin: 05/02/18 06:23 Dose: 100 mcg Metoprolol Succinate (Toprol Xl) 25 mg PO DAILY [facility] Last Admin: 05/02/18 10:21 Dose: 25 mg Prasugrel (Effient) 10 mg PO DAILY [facility] Last Admin: 05/01/18 09:37 Dose: 10 mg Rosuvastatin Calcium (Crestor) 10 mg PO HS [facility] Last Admin: 05/01/18 22:24 Dose: 10 mg Saccharomyces Boulardii (Florastor) 250 mg PO BID [facility] Last Admin: 05/02/18 10:22 Dose: 250 mg Sitagliptin Phosphate (Januvia) 25 mg PO DAILY [facility] Last Admin: 05/02/18 10:22 Dose: 25 mg - Labs Labs: 05/02/18 10:58 05/02/18 10:58 PT 12.7 SECONDS (9.7-12.2) H 05/01/18 02:14 INR 1.2 05/01/18 02:14 APTT 32 SECONDS (21-34) 05/01/18 02:14 - Constitutional Appears: Non-toxic, Chronically Ill - Head Exam Head Exam: ATRAUMATIC, NORMAL INSPECTION - Eye Exam Eye Exam: EOMI - ENT Exam ENT Exam: Mucous Membranes Moist - Neck Exam Neck Exam: Full ROM. absent: Lymphadenopathy - Respiratory Exam Respiratory Exam: Rales. absent: Accessory Muscle Use - Cardiovascular Exam Cardiovascular Exam: REGULAR RHYTHM. absent: Rubs - GI/Abdominal Exam GI & Abdominal Exam: Soft. absent: Tenderness - Neurological Exam Neurological Exam: Alert, Awake, Oriented x3 - Psychiatric Exam Psychiatric exam: Normal Affect, Normal Mood Assessment and Plan - Assessment and Plan (Free Text) Assessment: maint HD pulmonary toilet to be continued continue same
--- NOTE | 2018-05-02 14:00 | CT ---
Date of service: 05/02/2018 PROCEDURE: CT Chest without contrast HISTORY: continued cough, PNA vs. pneumonitis COMPARISON: 03/24/2018 TECHNIQUE: Contiguous axial images were obtained through the chest without intravenous contrast enhancement. Sagittal and coronal reconstructions were performed. Radiation dose: Total exam DLP = 271.34 mGy-cm. This CT exam was performed using one or more of the following dose reduction techniques: Automated exposure control, adjustment of the mA and/or kV according to patient size, and/or use of iterative reconstruction technique. FINDINGS: LUNGS: The lungs are well inflated. There is interval improved aeration in the lower lobe. There near complete resolution of airspace disease in the lingula. There is multifocal subsegmental atelectasis in the left upper lobe and right lower lobe. There are no endobronchial lesions. MEDIASTINUM: The heart is normal in size. There is a small pericardial effusion. There are advanced atherosclerotic coronary artery and aortic calcifications. No aortic atherosclerotic calcification. PLEURA: Interval decrease in size of left pleural effusion with residual small left pleural effusion. Interval resolution of right pleural effusion. No pneumothorax. BONES: Diffuse bone demineralization and multilevel degenerative changes in the spine. Old osteoporotic compression fracture deformities in the T12 and L1 vertebral bodies. UPPER ABDOMEN: Grossly unremarkable. OTHER FINDINGS: There is chronic elevation of the left hemidiaphragm. IMPRESSION: 1. Interval decrease in size of left pleural effusion and near complete resolution of right pleural effusion. 2. Interval improved aeration in the lungs with residual multifocal atelectasis in the left lung and right lower lobe. No evidence for pneumonia. 3. Mild cardiomegaly and small pericardial effusion.
--- NOTE | 2018-05-02 15:46 | CP.PCM.PN ---
Objective - Vital Signs/Intake and Output Vital Signs (last 24 hours): Temp Pulse Resp BP Pulse Ox 98.2 F 70 20 168/65 H 96 05/02/18 07:00 05/02/18 12:00 05/02/18 07:00 05/02/18 13:55 05/02/18 07:00 Intake and Output: 05/02/18 05/02/18 06:59 18:59 Intake Total 1575 830 Balance 1575 830 - Medications Medications: Current Medications Acetaminophen (Tylenol 325mg Tab) 650 mg PO Q6 PRN PRN Reason: Pain, moderate (4-7) Last Admin: 05/01/18 19:45 Dose: 650 mg Albuterol/Ipratropium (Duoneb 3 Mg/0.5 Mg (3 Ml) Ud) 3 ml INH RQ4 [facility] Last Admin: 05/02/18 03:47 Dose: Not Given Amlodipine Besylate (Norvasc) 10 mg PO DAILY [facility] Last Admin: 05/02/18 10:21 Dose: 10 mg Benzonatate (Tessalon Perles) 100 mg PO TID [facility] Last Admin: 05/02/18 13:49 Dose: 100 mg Fenofibrate (Tricor) 48 mg PO QPM [facility] Last Admin: 05/01/18 17:41 Dose: 48 mg Hydralazine HCl (Apresoline) 25 mg PO TID [facility] Last Admin: 05/02/18 13:49 Dose: 25 mg Vancomycin HCl 1 gm/ Sodium (Chloride) 250 mls @ 166.7 mls/hr IVPB Q24H [facility]; Protocol Last Admin: 05/02/18 11:56 Dose: 166.7 mls/hr Piperacillin Sod/Tazobactam (Sod 2.25 gm/ Sodium Chloride) 100 mls @ 200 mls/hr IV Q8H [facility]; Protocol Last Admin: 05/02/18 13:48 Dose: 200 mls/hr Insulin Human Regular (Novolin R) 0 unit SC ACHS [facility]; Protocol Last Admin: 05/02/18 12:11 Dose: 1 unit Levothyroxine Sodium (Synthroid) 100 mcg PO DAILY@0630 [facility] Last Admin: 05/02/18 06:23 Dose: 100 mcg Metoprolol Succinate (Toprol Xl) 25 mg PO DAILY [facility] Last Admin: 05/02/18 10:21 Dose: 25 mg Prasugrel (Effient) 10 mg PO DAILY [facility] Last Admin: 05/01/18 09:37 Dose: 10 mg Rosuvastatin Calcium (Crestor) 10 mg PO HS [facility] Last Admin: 05/01/18 22:24 Dose: 10 mg Saccharomyces Boulardii (Florastor) 250 mg PO BID [facility] Last Admin: 05/02/18 10:22 Dose: 250 mg Sitagliptin Phosphate (Januvia) 25 mg PO DAILY [facility] Last Admin: 05/02/18 10:22 Dose: 25 mg - Labs Labs: 05/02/18 10:58 05/02/18 10:58 PT 12.7 SECONDS (9.7-12.2) H 05/01/18 02:14 INR 1.2 05/01/18 02:14 APTT 32 SECONDS (21-34) 05/01/18 02:14 Assessment and Plan (1) Acute CHF Status: Acute (2) ESRD (end stage renal disease) Status: Acute (3) Obstructive sleep apnea Status: Acute (4) COPD (chronic obstructive pulmonary disease) Status: Chronic
--- NOTE | 2018-05-02 19:00 | CP.PCM.CON ---
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 Meds: Norvasc 10mg PO, Florastor 250mg PO BID, Januvia 25mg PO daily, Crstor 10mg, Effient 10mg, Toprol XL 10mg, Levothyroxine 100mcg, Fenofibrate 48mg, Phoslo 667mg TID, Albuterol Q6 Allergies: NKDA Review of Systems - Review of Systems All systems: reviewed and no additional remarkable complaints except - Constitutional Constitutional: As Per HPI - EENT Eyes: absent: As Per HPI, Blind Spots, Blurred Vision, Change in Vision, Decreased Night Vision, Diplopia, Discharge, Dry Eye, Exophthalmos, Floaters, Irritation, Itchy Eyes, Loss of Peripheral Vision, Pain, Photophobia, Requires Corrective Lenses, Sees Flashes, Spots in Vision, Tunnel Vision, Other Visual Disturbances, Loss of Vision, Other Ears: absent: As Per HPI, Decreased Hearing, Ear Discharge, Ear Pain, Tinnitus, Abnormal Hearing, Disequilibrium, Dizziness, Other Nose/Mouth/Throat: absent: As Per HPI, Epistaxis, Nasal Congestion, Nasal Discharge, Nasal Obstruction, Nasal Trauma, Nose Pain, Post Nasal Drip, Sinus Pain, Sinus Pressure, Bleeding Gums, Change in Voice, Dental Pain, Dry Mouth, Dysphagia, Halitosis, Hoarsness, Lip Swelling, Mouth Lesions, Mouth Pain, Odynophagia, Sore Throat, Throat Swelling, Tongue Swelling, Facial Pain, Neck Pain, Neck Mass, Other - Cardiovascular Cardiovascular: As Per HPI - Respiratory Respiratory: As Per HPI, Cough, Dyspnea. absent: Hemoptysis - Gastrointestinal Gastrointestinal: absent: As Per HPI, Abdominal Pain, Belching, Bloating, Change in Bowel Habits, Change in Stool Character, Coffee Ground Emesis, Constipation, Cramping, Diarrhea, Dyspepsia, Dysphagia, Early Satiety, Excessive Flatus, Fecal Incontinence, Heartburn, Hematemesis, Hematochezia, Loose Stools, Melena, Nausea, Odynophagia, Temesmus, Vomiting, Other - Genitourinary Genitourinary: absent: As Per HPI, Change in Urinary Stream, Difficulty Urinating, Dysuria, Flank Pain, Hematuria, Pyuria, Nocturia, Urinary Incontinence, Urinary Frequency, Urinary Hesitance, Urinary Urgency, Voiding Freq/Small Amts, Freq UTI, Hx Renal/Bladder Calculi, Hx /Renal Surgery, Hector dder Distension, Other - Reproductive: Female Reproductive:Female: absent: As Per HPI, Amenorrhea, Amenorrhea/ Control, Currently Menstual, Cycle <21 Days, Cycle >35 Days, Cycle Variable, Menses 1-7 Days, Menses >/= 8 Days, Menses Variable, Cycle > 4 Weeks Between, No Menses for 6 Months, Heavy Menses, Light Menses, Normal Menses, Spotting Between Cycles, S/P Hysterectomy, Menopausal, Post Menopausal, Premenarche, Abnormal Vaginal Bleeding, Dysmenorrhea, Dyspareunia, Genital Lesions, Genital Pruritis, Pelvic Pain, Prolapse Symptoms, Sexual Dysfunction, Vaginal Discharge, Vaginal Dryness, Vaginal Odor, Vaginal Pruritis, Other - Menstruation Menstruation: absent: As Per HPI, Amenorrhea, Amenorrhea/ Control, Currently Menstual, Cycle <21 Days, Cycle >35 Days, Cycle Variable, Menses 1-7 Days, Menses >/= 8 Days, Menses Variable, Cycle > 4 Weeks Between, No Menses for 6 Months, Heavy Menses, Light Menses, Normal Menses, Spotting Between Cycles, S/P Hysterectomy, Menopausal, Post Menopausal, Premenarche, Abnormal Vaginal Bleeding, Dysmenorrhea, Other - Musculoskeletal Musculoskeletal: absent: As Per HPI, Abnormal Gait, Arthralgias, Atrophy, Back Pain, Deformity, Joint Swelling, Limited Range of Motion, Loss of Height, Muscle Cramps, Muscle Weakness, Myalgias, Neck Pain, Numbness, Radiating Pain into Limb, Stiffness, Tingling, Other - Integumentary Integumentary: absent: As Per HPI, Acne, Alopecia, Bleeding Lesions, Change in Hair, Change in Nails, Change in Pigmentation, Changing Lesions, Dry Skin, Erythema, Furuncle, Hirsutism, Lesions, New Lesions, Non-Healing Lesions, Photosensitivity, Pruritus, Rash, Skin Pain, Skin Ulcer, Sores, Striae, Swelling, Unusual Bruising, Wounds, Jaundice, Other - Neurological Neurological: absent: As Per HPI, Abnormal Gait, Abnormal Hearing, Abnormal Movements, Abnormal Speech, Behavioral Changes, Burning Sensations, Confusion, Convulsions, Disequilibrium, Dizziness, Numbness, Focal Weakness, Frequent Falls, Headaches, Lack of Coordination, Loss of Vision, Memory Loss, Paresthesias, Radicular Pain, Restless Legs, Sensory Deficit, Syncope, Tingling, Tremor, Vertigo, Weakness, Other Visual Disturbances, Other - Psychiatric Psychiatric: absent: As Per HPI, Abnormal Sleep Pattern, Anhedonia, Anxiety, Auditory Hallucinations, Behavioral Changes, Change in Appetite, Change in Libido, Confusion, Depression, Difficulty Concentrating, Hallucinations, Homicidal Ideation, Hopelessness, Irritability, Memory Loss, Mood Swings, Panic Attacks, Paranoia, Suicidal Ideation, Visual Hallucinations, Tactile Hallucinations, Other - Endocrine Endocrine: absent: As Per HPI, Change in Body Appearance, Change in Libido, Cold Intolorance, Deepening of Voice, Excessive Sweating, Fatigue, Flushing, Heat Intolorance, Increase in Ring/Shoe/Hat Size, Palpitations, Polydipsia, Polyphagia, Polyuria, Other - Hematologic/Lymphatic Hematologic: absent: As Per HPI, Easy Bleeding, Easy Bruising, Lymphadenopathy, Other Past Patient History - Infectious Disease Hx of Infectious Diseases: None - Tetanus Immunizations Tetanus Immunization: Unknown - Past Medical History & Family History Past Medical History?: Yes - Past Social History Smoking Status: Never Smoked - CARDIAC Hx Hypertension: Yes - PULMONARY Hx Chronic Obstructive Pulmonary Disease (COPD): Yes - NEUROLOGICAL Hx Neurological Disorder: No - HEENT Hx HEENT Problems: Yes Hx Cataracts: Yes Other/Comment: Corneal replacement both eyes - RENAL Hx Chronic Kidney Disease: Yes Hx Kidney Stones: Yes - ENDOCRINE/METABOLIC Hx Diabetes Mellitus Type 1: Yes Hx Hypothyroidism: Yes - HEMATOLOGICAL/ONCOLOGICAL Hx Anemia: Yes - INTEGUMENTARY Hx Dermatological Problems: No - MUSCULOSKELETAL/RHEUMATOLOGICAL Hx Arthritis: Yes - GASTROINTESTINAL Hx Gastritis: Yes - GENITOURINARY/GYNECOLOGICAL Hx Genitourinary Disorders: No - PSYCHIATRIC Hx Substance Use: No - SURGICAL HISTORY Hx Surgeries: Yes Hx Cataract Extraction: Yes Other/Comment: Vascular stents. Bone marrow aspiration. Corneal transplant. Permacat Insertion - ANESTHESIA Hx Anesthesia: Yes Hx Anesthesia Reactions: No Hx Malignant Hyperthermia: No Meds Allergies/Adverse Reactions: Allergies Allergy/AdvReac Type Severity Reaction Status Date / Time No Known Allergies Allergy Verified 05/01/18 01:28 - Medications Medications: Current Medications Acetaminophen (Tylenol 325mg Tab) 650 mg PO Q6 PRN PRN Reason: Pain, moderate (4-7) Last Admin: 05/01/18 19:45 Dose: 650 mg Albuterol/Ipratropium (Duoneb 3 Mg/0.5 Mg (3 Ml) Ud) 3 ml INH RQ4 [facility] Last Admin: 05/02/18 03:47 Dose: Not Given Amlodipine Besylate (Norvasc) 10 mg PO DAILY [facility] Last Admin: 05/02/18 10:21 Dose: 10 mg Benzonatate (Tessalon Perles) 100 mg PO TID [facility] Last Admin: 05/02/18 17:47 Dose: 100 mg Fenofibrate (Tricor) 48 mg PO QPM [facility] Last Admin: 05/01/18 17:41 Dose: 48 mg Hydralazine HCl (Apresoline) 25 mg PO TID [facility] Last Admin: 05/02/18 17:46 Dose: 25 mg Vancomycin HCl 1 gm/ Sodium (Chloride) 250 mls @ 166.7 mls/hr IVPB Q24H [facility]; Protocol Last Admin: 05/02/18 11:56 Dose: 166.7 mls/hr Piperacillin Sod/Tazobactam (Sod 2.25 gm/ Sodium Chloride) 100 mls @ 200 mls/hr IV Q8H [facility]; Protocol Last Admin: 05/02/18 13:48 Dose: 200 mls/hr Insulin Human Regular (Novolin R) 0 unit SC ACHS [facility]; Protocol Last Admin: 05/02/18 17:00 Dose: Not Given Levothyroxine Sodium (Synthroid) 100 mcg PO DAILY@0630 [facility] Last Admin: 05/02/18 06:23 Dose: 100 mcg Metoprolol Succinate (Toprol Xl) 25 mg PO DAILY [facility] Last Admin: 05/02/18 10:21 Dose: 25 mg Prasugrel (Effient) 10 mg PO DAILY [facility] Last Admin: 05/01/18 09:37 Dose: 10 mg Rosuvastatin Calcium (Crestor) 10 mg PO HS [facility] Last Admin: 05/01/18 22:24 Dose: 10 mg Saccharomyces Boulardii (Florastor) 250 mg PO BID [facility] Last Admin: 05/02/18 17:49 Dose: 250 mg Sitagliptin Phosphate (Januvia) 25 mg PO DAILY [facility] Last Admin: 05/02/18 10:22 Dose: 25 mg Physical Exam - Constitutional Appears: Non-toxic, No Acute Distress, Chronically Ill - Head Exam Head Exam: ATRAUMATIC, NORMAL INSPECTION, NORMOCEPHALIC - Eye Exam Eye Exam: PERRL. absent: Scleral icterus - ENT Exam ENT Exam: Mucous Membranes Dry, Normal External Ear Exam - Neck Exam Neck exam: Negative for: Lymphadenopathy - Respiratory Exam Respiratory Exam: Decreased Breath Sounds, Prolonged Expiratory Phase, Rales, Rhonchi - Cardiovascular Exam Cardiovascular Exam: REGULAR RHYTHM, +S1, +S2 - GI/Abdominal Exam GI & Abdominal Exam: Diminished Bowel Sounds, Soft. absent: Tenderness - Rectal Exam Rectal Exam: Deferred - Exam Exam: NORMAL INSPECTION - Extremities Exam Extremities exam: Positive for: pedal pulses present. Negative for: calf tenderness, pedal edema, tenderness - Back Exam Back exam: absent: CVA tenderness (L), CVA tenderness (R) - Neurological Exam Neurological exam: Alert, CN II-XII Intact, Oriented x3, Reflexes Normal - Psychiatric Exam Psychiatric exam: Depressed - Skin Skin Exam: Dry, Intact Results - Vital Signs Recent Vital Signs: Last Vital Signs Temp 98.7 F 05/02/18 15:33 Pulse 79 05/02/18 15:33 Resp 20 05/02/18 15:33 BP 155/67 H 05/02/18 15:33 Pulse Ox 95 05/02/18 15:33 - Labs Result Diagrams: 05/02/18 10:58 05/02/18 10:58 Labs: Laboratory Results - last 24 hr 05/01/18 05/01/18 05/02/18 13:25 21:18 00:13 WBC RBC Hgb Hct MCV MCH MCHC RDW Plt Count MPV Neut % (Auto) Lymph % (Auto) [place] % (Auto) Eos % (Auto) Baso % (Auto) Neut # (Auto) Lymph # (Auto) [place] # (Auto) Eos # (Auto) Baso # (Auto) Neutrophils % (Manual) Lymphocytes % (Manual) Monocytes % (Manual) Eosinophils % (Manual) Platelet Estimate Hypochromasia (manual) Poikilocytosis (manual Anisocytosis (manual) Sodium Potassium Chloride Carbon Dioxide Anion Gap BUN Creatinine Est GFR ( Amer) Est GFR (Non-Af Amer) POC Glucose (mg/dL) 92 Random Glucose Calcium Phosphorus Magnesium Total Bilirubin AST ALT Alkaline Phosphatase Total Protein Albumin Globulin Albumin/Globulin Ratio Ur L.pneumophila Ag Negative Blood Type A POSITIVE Antibody Screen Positive Antibody Identification Non Specific Antibody Elution Negative BRYAN, Poly Interpret Positive H 05/02/18 05/02/18 05/02/18 05:03 10:58 10:58 WBC 15.3 H RBC 3.58 L Hgb 10.8 L D Hct 32.4 L MCV 90.4 D MCH 30.1 MCHC 33.3 RDW 19.4 H Plt Count 78 L MPV 10.0 Neut % (Auto) 45.3 L Lymph % (Auto) 13.0 L [place] % (Auto) 38.7 H Eos % (Auto) 2.6 Baso % (Auto) 0.4 Neut # (Auto) 6.9 Lymph # (Auto) 2.0 [place] # (Auto) 5.9 H Eos # (Auto) 0.4 Baso # (Auto) 0.1 Neutrophils % (Manual) 49 L Lymphocytes % (Manual) 10 L Monocytes % (Manual) 39 H Eosinophils % (Manual) 2 Platelet Estimate Decreased L Hypochromasia (manual) Slight Poikilocytosis (manual Slight Anisocytosis (manual) Slight Sodium 138 Potassium 4.1 Chloride 100 Carbon Dioxide 28 Anion Gap 13 BUN 19 H Creatinine 2.2 H Est GFR ( Amer) 26 Est GFR (Non-Af Amer) 21 POC Glucose (mg/dL) 95 Random Glucose 153 H Calcium 8.3 L Phosphorus 3.1 Magnesium 2.0 Total Bilirubin 0.6 AST 30 ALT 15 Alkaline Phosphatase 51 Total Protein 8.8 H Albumin 3.7 Globulin 5.1 H Albumin/Globulin Ratio 0.7 L Ur L.pneumophila Ag Blood Type Antibody Screen Antibody Identification Elution BRYAN, Poly Interpret 05/02/18 05/02/18 11:00 16:15 WBC RBC Hgb Hct MCV MCH MCHC RDW Plt Count MPV Neut % (Auto) Lymph % (Auto) [place] % (Auto) Eos % (Auto) Baso % (Auto) Neut # (Auto) Lymph # (Auto) [place] # (Auto) Eos # (Auto) Baso # (Auto) Neutrophils % (Manual) Lymphocytes % (Manual) Monocytes % (Manual) Eosinophils % (Manual) Platelet Estimate Hypochromasia (manual) Poikilocytosis (manual Anisocytosis (manual) Sodium Potassium Chloride Carbon Dioxide Anion Gap BUN Creatinine Est GFR ( Amer) Est GFR (Non-Af Amer) POC Glucose (mg/dL) 181 H 142 H Random Glucose Calcium Phosphorus Magnesium Total Bilirubin AST ALT Alkaline Phosphatase Total Protein Albumin Globulin Albumin/Globulin Ratio Ur L.pneumophila Ag Blood Type Antibody Screen Antibody Identification Elution BRYAN, Poly Interpret Assessment & Plan (1) Acute CHF Status: Acute (2) ESRD (end stage renal disease) Status: Acute (3) Pneumonia Status: Acute - Assessment and Plan (Free Text) Assessment: await cultures blood/ spoutum cont IV antibiotics adjust Vanco
[2018-05-03] MEDS: Piperacillin/Tazobact 2.25 GM in Sodium Chloride 100 ML IV SCH ×3 (03:36→20:58)
[2018-05-03] MEDS: Albuterol-Ipratrop 3 mg / 0.5 (3 ml) UD INH SCH ×5 (03:42→19:56)
[2018-05-03] MEDS: Levothyroxine 100 MCG TAB PO SCH (05:46)
[2018-05-03 07:36] LABS: BASO # 0.1 K/uL (0.0-0.2); BASO % 0.3 % (0.0-2.0); EOS # 0.3 K/uL (0.0-0.7); EOS % 2.1 % (0.0-4.0); HEMOGLOBIN 9.6 g/dL (11.0-16.0); LYMPH # 3.3 K/uL (1.0-4.3); LYMPH % 21.7 % (20.0-40.0); MEAN CORPUSCULAR HEMOGLOBIN 29.9 pg (27.0-31.0); MEAN CORPUSCULAR HGB CONC 33.2 g/dL (33.0-37.0); MEAN PLATELET VOLUME 9.5 fL (7.2-11.7); MONO # 6.6 K/uL (0.0-0.8); MONO % 43.8 % (0.0-10.0); NEUT # 4.8 K/uL (1.8-7.0); NEUT % 32.1 % (50.0-75.0); PLATELET COUNT 72 K/uL (130-400); RBC 3.22 Mil/uL (3.80-5.20); RED CELL DISTRIBUTION WIDTH 18.7 % (11.5-14.5)
[2018-05-03 07:47] LABS: ALB/GLOB RATIO 0.7 (1.0-2.1); ALBUMIN 3.2 g/dL (3.5-5.0); CALCIUM 7.8 mg/dl (8.6-10.4)
--- NOTE | 2018-05-03 07:47 | CP.PCM.PN ---
Subjective - Date & Time of Evaluation Date of Evaluation: 05/03/18 Time of Evaluation: 07:15 - Subjective Subjective: PGY-1 Medicine Progress Note for Dr. Miguel Patient was seen and examined today at bedside in no acute distress. Nurse reports no overnight events. Patient states she is feeling and breathing better overall. She is very eager to go home before the holidays. Denies headache, chest pain, chest tightness, shortness of breath, abdominal pain, nausea, vomiting, constipation, diarrhea. She is able to lift herself out of bed to the bedside commode, however, she is still a fall risk for extended walking. Objective - Vital Signs/Intake and Output Vital Signs (last 24 hours): Temp Pulse Resp BP Pulse Ox 98.1 F 86 20 152/68 H 99 05/02/18 23:25 05/02/18 23:25 05/02/18 23:25 05/02/18 23:25 05/02/18 23:25 Intake and Output: 05/03/18 05/03/18 06:59 18:59 Intake Total 100 Output Total 250 Balance -150 - Medications Medications: Current Medications Acetaminophen (Tylenol 325mg Tab) 650 mg PO Q6 PRN PRN Reason: Pain, moderate (4-7) Last Admin: 05/01/18 19:45 Dose: 650 mg Albuterol/Ipratropium (Duoneb 3 Mg/0.5 Mg (3 Ml) Ud) 3 ml INH RQ4 [facility] Last Admin: 05/03/18 03:42 Dose: Not Given Amlodipine Besylate (Norvasc) 10 mg PO DAILY [facility] Last Admin: 05/02/18 10:21 Dose: 10 mg Benzonatate (Tessalon Perles) 100 mg PO TID [facility] Last Admin: 05/02/18 17:47 Dose: 100 mg Fenofibrate (Tricor) 48 mg PO QPM [facility] Last Admin: 05/02/18 21:16 Dose: 48 mg Hydralazine HCl (Apresoline) 25 mg PO TID [facility] Last Admin: 05/02/18 17:46 Dose: 25 mg Piperacillin Sod/Tazobactam (Sod 2.25 gm/ Sodium Chloride) 100 mls @ 200 mls/hr IV Q8H [facility]; Protocol Last Admin: 05/03/18 03:36 Dose: 200 mls/hr Vancomycin HCl 1 gm/ Sodium (Chloride) 250 mls @ 166.7 mls/hr IVPB MWF [facility]; Protocol Insulin Human Regular (Novolin R) 0 unit SC ACHS [facility]; Protocol Last Admin: 05/02/18 21:17 Dose: Not Given Levothyroxine Sodium (Synthroid) 100 mcg PO DAILY@0630 [facility] Last Admin: 05/03/18 05:46 Dose: 100 mcg Metoprolol Succinate (Toprol Xl) 25 mg PO DAILY [facility] Last Admin: 05/02/18 10:21 Dose: 25 mg Prasugrel (Effient) 10 mg PO DAILY [facility] Last Admin: 05/01/18 09:37 Dose: 10 mg Rosuvastatin Calcium (Crestor) 10 mg PO HS [facility] Last Admin: 05/02/18 21:04 Dose: 10 mg Saccharomyces Boulardii (Florastor) 250 mg PO BID [facility] Last Admin: 05/02/18 17:49 Dose: 250 mg Sitagliptin Phosphate (Januvia) 25 mg PO DAILY [facility] Last Admin: 05/02/18 10:22 Dose: 25 mg - Labs Labs: 05/03/18 07:17 05/02/18 10:58 PT 12.7 SECONDS (9.7-12.2) H 05/01/18 02:14 INR 1.2 05/01/18 02:14 APTT 32 SECONDS (21-34) 05/01/18 02:14 - Constitutional Appears: Non-toxic, No Acute Distress - Head Exam Head Exam: ATRAUMATIC, NORMOCEPHALIC - Eye Exam Eye Exam: EOMI, Normal appearance - ENT Exam ENT Exam: Mucous Membranes Moist - Respiratory Exam Respiratory Exam: Decreased Breath Sounds, Rales (L sided, bases>apex - improved from yesterday), Wheezes (R upper on expiration). absent: Rhonchi Additional comments: NC on 2L O2 - Cardiovascular Exam Cardiovascular Exam: REGULAR RHYTHM, +S1, +S2. absent: Gallop, Rubs, Murmur Additional comments: Permacath in R chest, dressing c/d/i - GI/Abdominal Exam GI & Abdominal Exam: Soft, Normal Bowel Sounds. absent: Guarding, Tenderness - Extremities Exam Extremities Exam: Normal Capillary Refill. absent: Calf Tenderness Additional comments: peripheral pulses palpable bilateraly (radial, PT) IV access in L AC bilateral ankle swelling resolved - Neurological Exam Neurological Exam: Alert, Awake, Oriented x3 - Psychiatric Exam Psychiatric exam: Normal Affect, Normal Mood - Skin Skin Exam: Normal Color, Warm Assessment and Plan - Assessment and Plan (Free Text) Assessment: 83yo female PMH ESRD on HD TTS, COPD, PVD , CHF with preserved EF, HTN, myelodyplastic syndrome, hypothyroidism and recent pneumonia who is admitted for HCAP with pleural effusions. Plan: Healthcare Associated Pneumonia with pleural effusions History of COPD - CXR (05/01): Interval patchy coalescent airspace opacities medial right lung base confluent areas of pulmonary venous congestion and pulmonary edema are favored. A concomitant patchy infiltrate-change here is not excluded. Interval subsegmental atelectasis with or without fissural fluid left mid lung zone. Asymmetrically elevated left hemidiaphragm with left basal compressive atelectasis and left inferolateral pleural effusion/thickening re-noted. Concomitant left subsegmental infiltrate here not excluded No definite interval change at the left lung base noted. - CT Chest (05/02): interval decrease in L pleural effusion and near complete resolution of R pleural effusion. residual multifocal atelectatsis in L lung and RLL, no evidence of pneumonia. mild cardiomegaly and small pericardial effusion. - Pulm consulted: Dr. Hernandez - help appreciated - ID consulted: Dr. Rodriguez - help appreciated - WBC 17.7 on admission - Mycoplasma neg, Flu A/B neg, Legionella neg - Blood Cx (05/01): gram positive cocci in clusters and no growth @ 48 hrs - taken separately from two diff sites - Nares MRSA screen (05/01) neg - Duonebs q4 [facility] - Vancomycin 1gm IVPB daily (started 05/01) - Trough 05/04 @ 0930 - Zosyn 2.25gm IV q8 (started 05/01) - Tessalon Perles 100mg po tid - pulm toilet ESRD on HD TTS - Nephro consulted: Dr. Langston - lillian appreciated - HD restarted on TTS schedule - EPO started for persistent decreasing Hgb - consider AVF formation despite thrombocytopenia d/t Hx CMML - renally dose medication - In light of Blood Cx, Permacath as source considered - Vasc Sx consulted: Dr. Plummer - help appreciated - NPO@MN for Permacath replacement Thrombocytopenia - Plts 97 on admission -> 88 -> 78 -> 72 today - continue to hold Prasugrel - f/u HIT/NOMAN to r/o HIT - monitor with AM labs Anemia of Chronic Disease - H&H 7.4/22.5 on admission - Iron studies: Fe 78, TIBC 223, %sat 35, Ferritin 775.0 - transfused 2u PRBC with HD (05/01), Hb responded appropriately (7.0 -> 10.8) - monitor with AM labs - transfuse prn Diastolic CHF, chronic - BNP 6830 on admission - EKG: NSR@91 - elevate head of bed - Strict I&Os - Fluid restriction Hypertension - home Norvasc 10mg PO daily - home Metoprolol XL 25mg PO daily - Hydralazine 25mg po tid Hyperlipidemia - home Crestor 10mg PO HS - home Fenofibrate 48mg PO qPM Diabetes Mellitus - home Januvia 25mg PO daily - Accuchecks ACHS - ISS - hypoglycemia protocol Hypothyroidism - home Levothyroxine 100mcg PO daily History of myelodysplastic syndrome/leukemia - Heme/Onc consulted: Dr. Lopez Day - outpatient physician - help appreciated - WBC 17.7 on admission, INR 1.2 - home Prasugrel held 2/2 thrombocytopenia PPX: - DVT: home Prasugrel held for increased bleed risk from thrombocytopenia, SCDs - GI: Florastor 250mg PO BID - Diet: Heart healthy diet, 2g Na - Palliative Care consult for goals of care discussion as this is her third h ospitalization in as many months - Tylenol 650mg po q6 prn for headache/pain Dispo: SW referral for d/c. PT eval for d/c. Patient needs to have chair back at HD before discharge. d/w Dr. Myriam Fagan PGY-1
[2018-05-03] MEDS: (Novolin R) Insulin Human Regular 100 units/ml vial SC SCH ×4 (08:07→21:54)
[2018-05-03 09:03] LABS: BANDS 1 % (0-2); BASOPHIL 1 % (0-2); LYMPHOCYTE 21 % (20-40); MONOCYTE 31 % (0-10); MYELOCYTE 1 % (0-0); NEUTROPHIL 42 % (50-75); REACTIVE LYMPHOCYTES 3 % (0-0); TOTAL CELLS COUNTED 100
[2018-05-03 09:04] LABS: ANISOCYTOSIS SLIGHT; HYPOCHROMIC SLIGHT; PLATELET ESTIMATE DECREASED (NORMAL); POIKILOCYTOSIS SLIGHT
[2018-05-03 09:05] LABS: MICROCYTOSIS SLIGHT
[2018-05-03 09:06] LABS: BURR CELLS SLIGHT; LARGE PLATELETS PRESENT
--- NOTE | 2018-05-03 09:23 | CP.PCM.PN ---
Subjective - Date & Time of Evaluation Date of Evaluation: 05/03/18 Time of Evaluation: 09:20 - Subjective Subjective: Seen on dialysis Less SOB Increased UF goal at HD- 3000ml Hg decreased- can increase CIPRIANO dose Cultures negative, has had persistent leukocytosis CXR with less effusions Objective - Vital Signs/Intake and Output Vital Signs (last 24 hours): Temp Pulse Resp BP Pulse Ox 98.0 F 74 20 169/63 H 98 05/03/18 08:52 05/03/18 08:52 05/03/18 08:52 05/03/18 08:52 05/03/18 08:52 Intake and Output: 05/03/18 05/03/18 06:59 18:59 Intake Total 100 Output Total 250 Balance -150 - Medications Medications: Current Medications Acetaminophen (Tylenol 325mg Tab) 650 mg PO Q6 PRN PRN Reason: Pain, moderate (4-7) Last Admin: 05/01/18 19:45 Dose: 650 mg Albuterol/Ipratropium (Duoneb 3 Mg/0.5 Mg (3 Ml) Ud) 3 ml INH RQ4 [facility] Last Admin: 05/03/18 03:42 Dose: Not Given Amlodipine Besylate (Norvasc) 10 mg PO DAILY [facility] Last Admin: 05/02/18 10:21 Dose: 10 mg Benzonatate (Tessalon Perles) 100 mg PO TID [facility] Last Admin: 05/02/18 17:47 Dose: 100 mg Epoetin Brandon (Procrit) 10,000 unit IV [facility] Fenofibrate (Tricor) 48 mg PO QPM [facility] Last Admin: 05/02/18 21:16 Dose: 48 mg Hydralazine HCl (Apresoline) 25 mg PO TID [facility] Last Admin: 05/02/18 17:46 Dose: 25 mg Piperacillin Sod/Tazobactam (Sod 2.25 gm/ Sodium Chloride) 100 mls @ 200 mls/hr IV Q8H [facility]; Protocol Last Admin: 05/03/18 03:36 Dose: 200 mls/hr Vancomycin HCl 1 gm/ Sodium (Chloride) 250 mls @ 166.7 mls/hr IVPB [facility]; Protocol Insulin Human Regular (Novolin R) 0 unit SC ACHS [facility]; Protocol Last Admin: 05/03/18 08:07 Dose: Not Given Levothyroxine Sodium (Synthroid) 100 mcg PO DAILY@0630 [facility] Last Admin: 05/03/18 05:46 Dose: 100 mcg Metoprolol Succinate (Toprol Xl) 25 mg PO DAILY [facility] Last Admin: 05/02/18 10:21 Dose: 25 mg Prasugrel (Effient) 10 mg PO DAILY [facility] Last Admin: 05/01/18 09:37 Dose: 10 mg Rosuvastatin Calcium (Crestor) 10 mg PO HS [facility] Last Admin: 05/02/18 21:04 Dose: 10 mg Saccharomyces Boulardii (Florastor) 250 mg PO BID [facility] Last Admin: 05/02/18 17:49 Dose: 250 mg Sitagliptin Phosphate (Januvia) 25 mg PO DAILY [facility] Last Admin: 05/02/18 10:22 Dose: 25 mg - Labs Labs: 05/03/18 07:17 05/03/18 07:17 PT 12.7 SECONDS (9.7-12.2) H 05/01/18 02:14 INR 1.2 05/01/18 02:14 APTT 32 SECONDS (21-34) 05/01/18 02:14 - Constitutional Appears: No Acute Distress, Chronically Ill - Head Exam Head Exam: ATRAUMATIC, NORMAL INSPECTION - Eye Exam Eye Exam: EOMI - Neck Exam Neck Exam: Normal Inspection. absent: Tenderness - Respiratory Exam Respiratory Exam: Clear to Ausculation Bilateral, NORMAL BREATHING PATTERN - Cardiovascular Exam Cardiovascular Exam: REGULAR RHYTHM, +S1 - GI/Abdominal Exam GI & Abdominal Exam: Soft. absent: Tenderness - Extremities Exam Extremities Exam: Normal Inspection. absent: Tenderness - Neurological Exam Neurological Exam: Alert, CN II-XII Intact - Skin Skin Exam: Dry, Warm Assessment and Plan (1) ESRD (end stage renal disease) Status: Acute (2) CHF (congestive heart failure) Status: Acute (3) CMML (chronic myelomonocytic leukemia) Status: Acute (4) Chronic anemia Status: Acute (5) Leukocytosis Status: Acute (6) Pleural effusion Status: Acute - Assessment and Plan (Free Text) Plan: start EPO Dialysis with increase UF goal On IV ABs Would consider AV access despite leukocytosis- has h/o CML
[2018-05-03] MEDS: Saccharomyces Boulardi 250 mg Cap PO SCH ×2 (10:03→21:00)
[2018-05-03] MEDS: Metoprolol Succinate 25 mg XL Tab PO SCH (10:04)
[2018-05-03] MEDS: Epoetin Alfa 10,000 unit/ml Dialysis IV SCH (11:45)
--- NOTE | 2018-05-03 14:50 | CP.PCM.CON ---
History of Present Illness - History of Present Illness History of Present Illness: Vascular Surgery Consult Note. Dr. Plummer 83yo F with PMHx of DM, HTN, HLD, PVD, ESRD, COPD, Hypothyroidism, CHF, Anemia, CML here for treatment of CHF exacerbation. Vascular surgery was consulted for possible placement of AVF. Patient currently denies any complaints and states that her symptoms have improved. Denies any fevers or chills. No CP. SOB improving. Denies any N/V/D. During this admission, patient obtained blood cultu res which the preliminary findings show Gram Positive Cocci in 1/2 bottles. Patient is noted to have persistent leukocytosis and chronic thrombocytopenia. PMHx: DM, HTN, PVD, HLD, ESRD, COPD, CHF, CML, Anemia, Hypothyroidism PSHx: Cardiac Cath, Stents in leg, Right IJ permacath Family Hx: non-contributory Social Hx: Denies tobacco, denies ETOH, Denies illicit drugs NKDA Review of Systems - Review of Systems All systems: reviewed and no additional remarkable complaints except - Constitutional Constitutional: absent: Chills, Fever - EENT Nose/Mouth/Throat: absent: Epistaxis, Nasal Congestion - Cardiovascular Cardiovascular: Chest Pain, Dyspnea - Respiratory Respiratory: Cough, Dyspnea - Gastrointestinal Gastrointestinal: absent: Abdominal Pain, Nausea, Vomiting Past Patient History - Infectious Disease Hx of Infectious Diseases: None - Tetanus Immunizations Tetanus Immunization: Unknown - Past Medical History & Family History Past Medical History?: Yes - Past Social History Smoking Status: Never Smoked Alcohol: None Drugs: Denies - CARDIAC Hx Hypertension: Yes - PULMONARY Hx Chronic Obstructive Pulmonary Disease (COPD): Yes - NEUROLOGICAL Hx Neurological Disorder: No - HEENT Hx HEENT Problems: Yes Hx Cataracts: Yes Other/Comment: Corneal replacement both eyes - RENAL Hx Chronic Kidney Disease: Yes Hx Kidney Stones: Yes - ENDOCRINE/METABOLIC Hx Diabetes Mellitus Type 1: Yes Hx Hypothyroidism: Yes - HEMATOLOGICAL/ONCOLOGICAL Hx Anemia: Yes - INTEGUMENTARY Hx Dermatological Problems: No - MUSCULOSKELETAL/RHEUMATOLOGICAL Hx Arthritis: Yes - GASTROINTESTINAL Hx Gastritis: Yes - GENITOURINARY/GYNECOLOGICAL Hx Genitourinary Disorders: No - PSYCHIATRIC Hx Substance Use: No - SURGICAL HISTORY Hx Surgeries: Yes Hx Cataract Extraction: Yes Other/Comment: Vascular stents. Bone marrow aspiration. Corneal transplant. Permacat Insertion - ANESTHESIA Hx Anesthesia: Yes Hx Anesthesia Reactions: No Hx Malignant Hyperthermia: No Meds Allergies/Adverse Reactions: Allergies Allergy/AdvReac Type Severity Reaction Status Date / Time No Known Allergies Allergy Verified 05/01/18 01:28 - Medications Medications: Current Medications Acetaminophen (Tylenol 325mg Tab) 650 mg PO Q6 PRN PRN Reason: Pain, moderate (4-7) Last Admin: 05/01/18 19:45 Dose: 650 mg Albuterol/Ipratropium (Duoneb 3 Mg/0.5 Mg (3 Ml) Ud) 3 ml INH RQ4 [facility] Last Admin: 05/03/18 11:50 Dose: Not Given Amlodipine Besylate (Norvasc) 10 mg PO DAILY [facility] Last Admin: 05/03/18 10:03 Dose: Not Given Benzonatate (Tessalon Perles) 100 mg PO TID [facility] Last Admin: 05/03/18 13:15 Dose: 100 mg Epoetin Brandon (Procrit) 10,000 unit IV TTS [facility] Last Admin: 05/03/18 11:45 Dose: 10,000 unit Fenofibrate (Tricor) 48 mg PO QPM [facility] Last Admin: 05/02/18 21:16 Dose: 48 mg Hydralazine HCl (Apresoline) 25 mg PO TID [facility] Last Admin: 05/03/18 13:15 Dose: 25 mg Piperacillin Sod/Tazobactam (Sod 2.25 gm/ Sodium Chloride) 100 mls @ 200 mls/hr IV Q8H [facility]; Protocol Last Admin: 05/03/18 13:16 Dose: 200 mls/hr Vancomycin HCl 1 gm/ Sodium (Chloride) 250 mls @ 166.7 mls/hr IVPB MWF [facility]; Pro tocol Insulin Human Regular (Novolin R) 0 unit SC ACHS [facility]; Protocol Last Admin: 05/03/18 13:14 Dose: 1 unit Levothyroxine Sodium (Synthroid) 100 mcg PO DAILY@0630 [facility] Last Admin: 05/03/18 05:46 Dose: 100 mcg Metoprolol Succinate (Toprol Xl) 25 mg PO DAILY [facility] Last Admin: 05/03/18 10:04 Dose: Not Given Prasugrel (Effient) 10 mg PO DAILY [facility] Last Admin: 05/01/18 09:37 Dose: 10 mg Rosuvastatin Calcium (Crestor) 10 mg PO HS [facility] Last Admin: 05/02/18 21:04 Dose: 10 mg Saccharomyces Boulardii (Florastor) 250 mg PO BID [facility] Last Admin: 05/03/18 10:03 Dose: Not Given Sitagliptin Phosphate (Januvia) 25 mg PO DAILY [facility] Last Admin: 05/03/18 10:03 Dose: Not Given Physical Exam - Constitutional Appears: Well, Non-toxic, No Acute Distress - Head Exam Head Exam: ATRAUMATIC, NORMAL INSPECTION, NORMOCEPHALIC - Eye Exam Eye Exam: EOMI. absent: Scleral icterus - ENT Exam ENT Exam: Mucous Membranes Moist - Respiratory Exam Respiratory Exam: NORMAL BREATHING PATTERN. absent: Respiratory Distress - Cardiovascular Exam Cardiovascular Exam: absent: JVD - GI/Abdominal Exam GI & Abdominal Exam: Soft. absent: Distended, Firm, Guarding, Rebound, Rigid, Tenderness - Extremities Exam Extremities exam: Positive for: normal inspection. Negative for: calf tenderness - Neurological Exam Neurological exam: Alert, Oriented x3 Results - Vital Signs Recent Vital Signs: Last Vital Signs Temp 97.8 F 05/03/18 12:20 Pulse 86 05/03/18 12:20 Resp 16 05/03/18 12:20 BP 148/74 05/03/18 12:20 Pulse Ox 98 05/03/18 12:20 - Labs Result Diagrams: 05/03/18 07:17 05/03/18 07:17 Labs: Laboratory Results - last 24 hr 05/02/18 05/02/18 05/03/18 16:15 20:54 05:36 WBC RBC Hgb Hct MCV MCH MCHC RDW Plt Count MPV Neut % (Auto) Lymph % (Auto) [place] % (Auto) Eos % (Auto) Baso % (Auto) Neut # (Auto) Lymph # (Auto) [place] # (Auto) Eos # (Auto) Baso # (Auto) Neutrophils % (Manual) Band Neutrophils % Lymphocytes % (Manual) Reactive Lymphs % Monocytes % (Manual) Basophils % (Manual) Myelocytes % Platelet Estimate Large Platelets Hypochromasia (manual) Poikilocytosis (manual Anisocytosis (manual) Microcytosis (manual) Macrocytosis (manual) [place] Sodium Potassium Chloride Carbon Dioxide Anion Gap BUN Creatinine Est GFR ( Amer) Est GFR (Non-Af Amer) POC Glucose (mg/dL) 142 H 229 H 124 H Random Glucose Calcium Phosphorus Magnesium Total Bilirubin AST ALT Alkaline Phosphatase Total Protein Albumin Globulin Albumin/Globulin Ratio 05/03/18 05/03/18 05/03/18 06:58 07:17 07:17 WBC 15.0 H RBC 3.22 L Hgb 9.6 L Hct 29.0 L MCV 90.0 MCH 29.9 MCHC 33.2 RDW 18.7 H Plt Count 72 L MPV 9.5 Neut % (Auto) 32.1 L Lymph % (Auto) 21.7 [place] % (Auto) 43.8 H Eos % (Auto) 2.1 Baso % (Auto) 0.3 Neut # (Auto) 4.8 Lymph # (Auto) 3.3 [place] # (Auto) 6.6 H Eos # (Auto) 0.3 Baso # (Auto) 0.1 Neutrophils % (Manual) 42 L Band Neutrophils % 1 Lymphocytes % (Manual) 21 Reactive Lymphs % 3 H Monocytes % (Manual) 31 H Basophils % (Manual) 1 Myelocytes % 1 H Platelet Estimate Decreased L Large Platelets Present Hypochromasia (manual) Slight Poikilocytosis (manual Slight Anisocytosis (manual) Slight Microcytosis (manual) Slight Macrocytosis (manual) Slight [place] Cells Slight Sodium 135 Potassium 4.0 Chloride 100 Carbon Dioxide 28 Anion Gap 12 BUN 30 H Creatinine 3.0 H Est GFR ( Amer) 18 Est GFR (Non-Af Amer) 15 POC Glucose (mg/dL) 105 Random Glucose 110 H D Calcium 7.8 L Phosphorus 4.0 Magnesium 1.9 Total Bilirubin 0.4 AST 24 ALT 17 Alkaline Phosphatase 44 Total Protein 7.8 Albumin 3.2 L Globulin 4.6 H Albumin/Globulin Ratio 0.7 L 05/03/18 11:25 WBC RBC Hgb Hct MCV MCH MCHC RDW Plt Count MPV Neut % (Auto) Lymph % (Auto) [place] % (Auto) Eos % (Auto) Baso % (Auto) Neut # (Auto) Lymph # (Auto) [place] # (Auto) Eos # (Auto) Baso # (Auto) Neutrophils % (Manual) Band Neutrophils % Lymphocytes % (Manual) Reactive Lymphs % Monocytes % (Manual) Basophils % (Manual) Myelocytes % Platelet Estimate Large Platelets Hypochromasia (manual) Poikilocytosis (manual Anisocytosis (manual) Microcytosis (manual) Macrocytosis (manual) [place] Cells Sodium Potassium Chloride Carbon Dioxide Anion Gap BUN Creatinine Est GFR ( Amer) Est GFR (Non-Af Amer) POC Glucose (mg/dL) 172 H Random Glucose Calcium Phosphorus Magnesium Total Bilirubin AST ALT Alkaline Phosphatase Total Protein Albumin Globulin Albumin/Globulin Ratio Assessment & Plan - Assessment and Plan (Free Text) Assessment: 83yo F w ESRD on HD via Right IJ permacath. Vascular Surgery consulted for possible AVF creation Plan: - Persistent leukocytosis - Blood Culture positive for GPC x1 out of two bottles - f/u final blood culture results - Patient may need replacement of Permacath - We will hold off on AVF creation for now in light of the positive blood culture - will plan for OR 05/04. - NPO past mn Further recs as per Dr. Elian Mehta PGY2 surgery
--- NOTE | 2018-05-03 14:59 | CP.PCM.CON ---
History of Present Illness - History of Present Illness History of Present Illness: Palliative consult requested by Doctor Miguel for goals of care discussion Patient is a 78 yo lady admitted from home with cough, congestion and body aches X 2 days. Upon admission, CXR was significant for Pulmonary venous congestion. Zosyn and Vanco Iv initiated, in addition to Neb Tx. patient continued on Procrit for her chronic anemia, 2nd to ESRD. Patient was also found with positive blood cultures, Gram + cocci and ID consult was called, suggestions fallowed. PMH: ESRD with HD 3X a week, COPD, CHF, asthma, DM, uses O2 at home Soc. Hx: lives in house on the 1st floor with daughter and grand daughter Fam. Hx: father from COPD complications Review of Systems - Constitutional Constitutional: Weakness - EENT Eyes: absent: As Per HPI, Blind Spots, Blurred Vision, Change in Vision, Decreased Night Vision, Diplopia, Discharge, Dry Eye, Exophthalmos, Floaters, Irritation, Itchy Eyes, Loss of Peripheral Vision, Pain, Photophobia, Requires Corrective Lenses, Sees Flashes, Spots in Vision, Tunnel Vision, Other Visual Disturbances, Loss of Vision, Other Ears: absent: As Per HPI, Decreased Hearing, Ear Discharge, Ear Pain, Tinnitus, Abnormal Hearing, Disequilibrium, Dizziness, Other Nose/Mouth/Throat: absent: As Per HPI, Epistaxis, Nasal Congestion, Nasal Discharge, Nasal Obstruction, Nasal Trauma, Nose Pain, Post Nasal Drip, Sinus Pain, Sinus Pressure, Bleeding Gums, Change in Voice, Dental Pain, Dry Mouth, Dysphagia, Halitosis, Hoarsness, Lip Swelling, Mouth Lesions, Mouth Pain, Odynophagia, Sore Throat, Throat Swelling, Tongue Swelling, Facial Pain, Neck Pain, Neck Mass, Other - Breasts Breasts: absent: As Per HPI, Change in Shape, Mass, Pain, Nipple Discharge, Nipple Inversion, Skin Changes, Swelling, Other - Cardiovascular Cardiovascular: Dyspnea on Exertion - Respiratory Respiratory: Dyspnea on Exertion - Gastrointestinal Gastrointestinal: absent: As Per HPI, Abdominal Pain, Belching, Bloating, Change in Bowel Habits, Change in Stool Character, Coffee Ground Emesis, Constipation, Cramping, Diarrhea, Dyspepsia, Dysphagia, Early Satiety, Excessive Flatus, Fecal Incontinence, Heartburn, Hematemesis, Hematochezia, Loose Stools, Melena, Nausea, Odynophagia, Temesmus, Vomiting, Other - Genitourinary Additional comments: On HD - Reproductive: Female Reproductive:Female: Post Menopausal - Menstruation Menstruation: Post Menopausal - Musculoskeletal Musculoskeletal: Myalgias - Integumentary Integumentary: absent: As Per HPI, Acne, Alopecia, Bleeding Lesions, Change in Hair, Change in Nails, Change in Pigmentation, Changing Lesions, Dry Skin, Erythema, Furuncle, Hirsutism, Lesions, New Lesions, Non-Healing Lesions, Photosensitivity, Pruritus, Rash, Skin Pain, Skin Ulcer, Sores, Striae, Swelling, Unusual Bruising, Wounds, Jaundice, Other - Neurological Neurological: absent: As Per HPI, Abnormal Gait, Abnormal Hearing, Abnormal Move ments, Abnormal Speech, Behavioral Changes, Burning Sensations, Confusion, Convulsions, Disequilibrium, Dizziness, Numbness, Focal Weakness, Frequent Falls, Headaches, Lack of Coordination, Loss of Vision, Memory Loss, Paresthesias, Radicular Pain, Restless Legs, Sensory Deficit, Syncope, Tingling, Tremor, Vertigo, Weakness, Other Visual Disturbances, Other - Psychiatric Psychiatric: absent: As Per HPI, Abnormal Sleep Pattern, Anhedonia, Anxiety, Auditory Hallucinations, Behavioral Changes, Change in Appetite, Change in Libido, Confusion, Depression, Difficulty Concentrating, Hallucinations, Homicidal Ideation, Hopelessness, Irritability, Memory Loss, Mood Swings, Panic Attacks, Paranoia, Suicidal Ideation, Visual Hallucinations, Tactile Hallucinations, Other - Endocrine Endocrine: absent: As Per HPI, Change in Body Appearance, Change in Libido, Cold Intolorance, Deepening of Voice, Excessive Sweating, Fatigue, Flushing, Heat Intolorance, Increase in Ring/Shoe/Hat Size, Palpitations, Polydipsia, Polyphagia, Polyuria, Other - Hematologic/Lymphatic Hematologic: Easy Bleeding Past Patient History - Infectious Disease Hx of Infectious Diseases: None - Tetanus Immunizations Tetanus Immunization: Unknown - Past Medical History & Family History Past Medical History?: Yes - Past Social History Smoking Status: Never Smoked - CARDIAC Hx Hypertension: Yes - PULMONARY Hx Chronic Obstructive Pulmonary Disease (COPD): Yes - NEUROLOGICAL Hx Neurological Disorder: No - HEENT Hx HEENT Problems: Yes Hx Cataracts: Yes Other/Comment: Corneal replacement both eyes - RENAL Hx Chronic Kidney Disease: Yes Hx Kidney Stones: Yes - ENDOCRINE/METABOLIC Hx Diabetes Mellitus Type 1: Yes Hx Hypothyroidism: Yes - HEMATOLOGICAL/ONCOLOGICAL Hx Anemia: Yes - INTEGUMENTARY Hx Dermatological Problems: No - MUSCULOSKELETAL/RHEUMATOLOGICAL Hx Arthritis: Yes - GASTROINTESTINAL Hx Gastritis: Yes - GENITOURINARY/GYNECOLOGICAL Hx Genitourinary Disorders: No - PSYCHIATRIC Hx Substance Use: No - SURGICAL HISTORY Hx Surgeries: Yes Hx Cataract Extraction: Yes Other/Comment: Vascular stents. Bone marrow aspiration. Corneal transplant. Permacat Insertion - ANESTHESIA Hx Anesthesia: Yes Hx Anesthesia Reactions: No Hx Malignant Hyperthermia: No Meds Allergies/Adverse Reactions: Allergies Allergy/AdvReac Type Severity Reaction Status Date / Time No Known Allergies Allergy Verified 05/01/18 01:28 - Medications Medications: Current Medications Acetaminophen (Tylenol 325mg Tab) 650 mg PO Q6 PRN PRN Reason: Pain, moderate (4-7) Last Admin: 05/01/18 19:45 Dose: 650 mg Albuterol/Ipratropium (Duoneb 3 Mg/0.5 Mg (3 Ml) Ud) 3 ml INH RQ4 [facility] Last Admin: 05/03/18 11:50 Dose: Not Given Amlodipine Besylate (Norvasc) 10 mg PO DAILY [facility] Last Admin: 05/03/18 10:03 Dose: Not Given Benzonatate (Tessalon Perles) 100 mg PO TID [facility] Last Admin: 05/03/18 13:15 Dose: 100 mg Epoetin Brandon (Procrit) 10,000 unit IV TTS [facility] Last Admin: 05/03/18 11:45 Dose: 10,000 unit Fenofibrate (Tricor) 48 mg PO QPM [facility] Last Admin: 05/02/18 21:16 Dose: 48 mg Hydralazine HCl (Apresoline) 25 mg PO TID [facility] Last Admin: 05/03/18 13:15 Dose: 25 mg Piperacillin Sod/Tazobactam (Sod 2.25 gm/ Sodium Chloride) 100 mls @ 200 mls/hr IV Q8H [facility]; Protocol Last Admin: 05/03/18 13:16 Dose: 200 mls/hr Vancomycin HCl 1 gm/ Sodium (Chloride) 250 mls @ 166.7 mls/hr IVPB MWF [facility]; Protocol Insulin Human Regular (Novolin R) 0 unit SC ACHS [facility]; Protocol Last Admin: 05/03/18 13:14 Dose: 1 unit Levothyroxine Sodium (Synthroid) 100 mcg PO DAILY@0630 [facility] Last Admin: 05/03/18 05:46 Dose: 100 mcg Metoprolol Succinate (Toprol Xl) 25 mg PO DAILY [facility] Last Admin: 05/03/18 10:04 Dose: Not Given Prasugrel (Effient) 10 mg PO DAILY [facility] Last Admin: 05/01/18 09:37 Dose: 10 mg Rosuvastatin Calcium (Crestor) 10 mg PO HS [facility] Last Admin: 05/02/18 21:04 Dose: 10 mg Saccharomyces Boulardii (Florastor) 250 mg PO BID [facility] Last Admin: 05/03/18 10:03 Dose: Not Given Sitagliptin Phosphate (Januvia) 25 mg PO DAILY [facility] Last Admin: 05/03/18 10:03 Dose: Not Given Physical Exam - Constitutional Appears: No Acute Distress, Chronically Ill - Head Exam Head Exam: ATRAUMATIC, NORMAL INSPECTION, NORMOCEPHALIC - Eye Exam Eye Exam: EOMI, Normal appearance, PERRL Pupil Exam: NORMAL ACCOMODATION, PERRL - ENT Exam ENT Exam: Mucous Membranes Moist, Normal Exam - Neck Exam Neck exam: Positive for: Normal Inspection - Respiratory Exam Respiratory Exam: Decreased Breath Sounds, Prolonged Expiratory Phase - Cardiovascular Exam Cardiovascular Exam: Tachycardia, REGULAR RHYTHM - GI/Abdominal Exam GI & Abdominal Exam: Normal Bowel Sounds, Soft - Rectal Exam Rectal Exam: Deferred - Exam Additional comments: still passing some urine, 250 cc/ days - Extremities Exam Extremities exam: Positive for: normal inspection, pedal pulses present - Back Exam Back exam: NORMAL INSPECTION - Neurological Exam Neurological exam: Alert, Normal Gait, Oriented x3 - Psychiatric Exam Psychiatric exam: Normal Affect, Normal Mood - Skin Skin Exam: Dry, Intact, Pallor, Warm Results - Vital Signs Recent Vital Signs: Last Vital Signs Temp 97.8 F 05/03/18 12:20 Pulse 86 05/03/18 12:20 Resp 16 05/03/18 12:20 BP 148/74 05/03/18 12:20 Pulse Ox 98 05/03/18 12:20 - Labs Result Diagrams: 05/03/18 07:17 05/03/18 07:17 Labs: Laboratory Results - last 24 hr 05/02/18 05/02/18 05/03/18 16:15 20:54 05:36 WBC RBC Hgb Hct MCV MCH MCHC RDW Plt Count MPV Neut % (Auto) Lymph % (Auto) [place] % (Auto) Eos % (Auto) Baso % (Auto) Neut # (Auto) Lymph # (Auto) [place] # (Auto) Eos # (Auto) Baso # (Auto) Neutrophils % (Manual) Band Neutrophils % Lymphocytes % (Manual) Reactive Lymphs % Monocytes % (Manual) Basophils % (Manual) Myelocytes % Platelet Estimate Large Platelets Hypochromasia (manual) Poikilocytosis (manual Anisocytosis (manual) Microcytosis (manual) Macrocytosis (manual) [place] Cells Sodium Potassium Chloride Carbon Dioxide Anion Gap BUN Creatinine Est GFR ( Amer) Est GFR (Non-Af Amer) POC Glucose (mg/dL) 142 H 229 H 124 H Random Glucose Calcium Phosphorus Magnesium Total Bilirubin AST ALT Alkaline Phosphatase Total Protein Albumin Globulin Albumin/Globulin Ratio 05/03/18 05/03/18 05/03/18 06:58 07:17 07:17 WBC 15.0 H RBC 3.22 L Hgb 9.6 L Hct 29.0 L MCV 90.0 MCH 29.9 MCHC 33.2 RDW 18.7 H Plt Count 72 L MPV 9.5 Neut % (Auto) 32.1 L Lymph % (Auto) 21.7 [place] % (Auto) 43.8 H Eos % (Auto) 2.1 Baso % (Auto) 0.3 Neut # (Auto) 4.8 Lymph # (Auto) 3.3 [place] # (Auto) 6.6 H Eos # (Auto) 0.3 Baso # (Auto) 0.1 Neutrophils % (Manual) 42 L Band Neutrophils % 1 Lymphocytes % (Manual) 21 Reactive Lymphs % 3 H Monocytes % (Manual) 31 H Basophils % (Manual) 1 Myelocytes % 1 H Platelet Estimate Decreased L Large Platelets Present Hypochromasia (manual) Slight Poikilocytosis (manual Slight Anisocytosis (manual) Slight Microcytosis (manual) Slight Macrocytosis (manual) Slight [place] Cells Slight Sodium 135 Potassium 4.0 Chloride 100 Carbon Dioxide 28 Anion Gap 12 BUN 30 H Creatinine 3.0 H Est GFR ( Amer) 18 Est GFR (Non-Af Amer) 15 POC Glucose (mg/dL) 105 Random Glucose 110 H D Calcium 7.8 L Phosphorus 4.0 Magnesium 1.9 Total Bilirubin 0.4 AST 24 ALT 17 Alkaline Phosphatase 44 Total Protein 7.8 Albumin 3.2 L Globulin 4.6 H Albumin/Globulin Ratio 0.7 L 05/03/18 11:25 WBC RBC Hgb Hct MCV MCH MCHC RDW Plt Count MPV Neut % (Auto) Lymph % (Auto) [place] % (Auto) Eos % (Auto) Baso % (Auto) Neut # (Auto) Lymph # (Auto) [place] # (Auto) Eos # (Auto) Baso # (Auto) Neutrophils % (Manual) Band Neutrophils % Lymphocytes % (Manual) Reactive Lymphs % Monocytes % (Manual) Basophils % (Manual) Myelocytes % Platelet Estimate Large Platelets Hypochromasia (manual) Poikilocytosis (manual Anisocytosis (manual) Microcytosis (manual) Macrocytosis (manual) Tony Cells Sodium Potassium Chloride Carbon Dioxide Anion Gap BUN Creatinine Est GFR ( Amer) Est GFR (Non-Af Amer) POC Glucose (mg/dL) 172 H Random Glucose Calcium Phosphorus Magnesium Total Bilirubin AST ALT Alkaline Phosphatase Total Protein Albumin Globulin Albumin/Globulin Ratio Assessment & Plan - Assessment and Plan (Free Text) Assessment: Palliative consult Full Code, there is no Advance directive on chart, PPS 40% I reviewed medical records, all diagnostic studies, examined and interviewed leonarda peres in the bed Patient is alert, oriented X 3 in no acute distress, Pakistani speaking. Skin and sclera pale, Hb 9.6, on Procrit inj. Breathing diminished, prolonged expirations, reports SOB with ambulation. Denies cough, but admits to feel of tightness in the chest, that is better with Neb Tx. Patient said was on PT Tx at home and was able to ambulate from her bedroom to bathroom and kitchen. Before she got sick, she was able to do more of house chores. Now, her sister and her daughter cook for her. Abdomen soft, denies constipation, appetite fair. Ambulates short distances with minimal assistance. uses cane at home. BP 161/68, HR 86, O2Sat 99%, afebrile WBC 15.0, Hb 9.6, Plat 72 I reviewed patient's clinical presentation and elicited her concerns and expectations. Patient is aware of CXR findings and positive BCs. She understands she will need to complete course of antibiotics. Patient is interested in completing IV antibiotics as an outpatient in her PMD's office. She does not want to go to [facility] if it was suggested.I told her will need to check it out. I spoke to patient about her frequent admissions to the hospital. Patient wishes she could stay home and be able to manage her symptoms at home. Patient is seeing the same PMD for about 19 years and his office is just one block from her house. But, when the symptoms get severe, she panics she admits and calls 911 for help. We discussed the measures to prevent COPD exacerbation such as regular use of Hand inhalor, O2 and to avoid outdoor when is really cold outside. I introduced Code status discussion. Patient was not ready to talk about it. Impression * Chronically ill lady with Pulmonary venous congestion and positive blood cultures * SOB * Patient ambulates short distances on her own or with minimal assistance * Patient is aware of her chronic condition but panics when the symptoms occur while at home * Patient understands her need for IV antibiotics but does not wish to go to [facility] to complete thm if it was suggested. Patient is questioning ability to complete these IV antibiotics as an outpatient Suggestion * Continue current medical management * O2 supplement PRN * Discharge planing * FULL CODE Thank you for consulting Palliative care Advance care planing 35 min
--- NOTE | 2018-05-03 19:00 | CP.PCM.PN ---
Subjective - Date & Time of Evaluation Date of Evaluation: 05/03/18 Time of Evaluation: 08:00 - Subjective Subjective: 83yo F w ESRD on HD via Right IJ permacath. - Persistent leukocytosis - Blood Culture positive for GPC x1 out of two bottles - Patient may need replacement of Permacath Objective - Vital Signs/Intake and Output Vital Signs (last 24 hours): Temp Pulse Resp BP Pulse Ox 99.6 F 885 H 20 155/75 H 95 05/03/18 15:30 05/03/18 15:30 05/03/18 15:30 05/03/18 15:30 05/03/18 15:30 Intake and Output: 05/03/18 05/03/18 06:59 18:59 Intake Total 100 550 Output Total 250 Balance -150 550 - Medications Medications: Current Medications Acetaminophen (Tylenol 325mg Tab) 650 mg PO Q6 PRN PRN Reason: Pain, moderate (4-7) Last Admin: 05/01/18 19:45 Dose: 650 mg Albuterol/Ipratropium (Duoneb 3 Mg/0.5 Mg (3 Ml) Ud) 3 ml INH RQ4 [facility] Last Admin: 05/03/18 11:50 Dose: Not Given Amlodipine Besylate (Norvasc) 10 mg PO DAILY [facility] Last Admin: 05/03/18 10:03 Dose: Not Given Benzonatate (Tessalon Perles) 100 mg PO TID [facility] Last Admin: 05/03/18 13:15 Dose: 100 mg Epoetin Brandon (Procrit) 10,000 unit IV TTS [facility] Last Admin: 05/03/18 11:45 Dose: 10,000 unit Fenofibrate (Tricor) 48 mg PO QPM [facility] Last Admin: 05/02/18 21:16 Dose: 48 mg Hydralazine HCl (Apresoline) 25 mg PO TID [facility] Last Admin: 05/03/18 13:15 Dose: 25 mg Piperacillin Sod/Tazobactam (Sod 2.25 gm/ Sodium Chloride) 100 mls @ 200 mls/hr IV Q8H [facility]; Protocol Last Admin: 05/03/18 13:16 Dose: 200 mls/hr Vancomycin HCl 1 gm/ Sodium (Chloride) 250 mls @ 166.7 mls/hr IVPB MWF [facility]; Protocol Insulin Human Regular (Novolin R) 0 unit SC ACHS [facility]; Protocol Last Admin: 05/03/18 13:14 Dose: 1 unit Levothyroxine Sodium (Synthroid) 100 mcg PO DAILY@0630 [facility] Last Admin: 05/03/18 05:46 Dose: 100 mcg Metoprolol Succinate (Toprol Xl) 25 mg PO DAILY [facility] Last Admin: 05/03/18 10:04 Dose: Not Given Prasugrel (Effient) 10 mg PO DAILY [facility] Last Admin: 05/01/18 09:37 Dose: 10 mg Rosuvastatin Calcium (Crestor) 10 mg PO HS [facility] Last Admin: 05/02/18 21:04 Dose: 10 mg Saccharomyces Boulardii (Florastor) 250 mg PO BID [facility] Last Admin: 05/03/18 10:03 Dose: Not Given Sitagliptin Phosphate (Januvia) 25 mg PO DAILY [facility] Last Admin: 05/03/18 10:03 Dose: Not Given - Labs Labs: 05/03/18 07:17 05/03/18 07:17 PT 12.7 SECONDS (9.7-12.2) H 05/01/18 02:14 INR 1.2 05/01/18 02:14 APTT 32 SECONDS (21-34) 05/01/18 02:14 - Constitutional Appears: Non-toxic, Chronically Ill - Head Exam Head Exam: NORMOCEPHALIC - Eye Exam Eye Exam: absent: Scleral icterus - ENT Exam ENT Exam: Mucous Membranes Dry - Neck Exam Neck Exam: absent: Lymphadenopathy - Respiratory Exam Respiratory Exam: Decreased Breath Sounds - Cardiovascular Exam Cardiovascular Exam: REGULAR RHYTHM - GI/Abdominal Exam GI & Abdominal Exam: Distended, Soft Assessment and Plan (1) Acute CHF Status: Acute (2) ESRD (end stage renal disease) Status: Acute (3) Pneumonia Status: Acute - Assessment and Plan (Free Text) Assessment: would l hold off on AVF creation for now in light of the positive blood culture will repeat blood cultures and check Vanco levels
--- NOTE | 2018-05-03 20:05 | CP.PCM.PN ---
Subjective - Date & Time of Evaluation Date of Evaluation: 05/03/18 Time of Evaluation: 20:01 - Subjective Subjective: Patient seen and examined No events overnight Objective - Vital Signs/Intake and Output Vital Signs (last 24 hours): Temp Pulse Resp BP Pulse Ox 99.6 F 92 H 20 132/74 95 05/03/18 15:30 05/03/18 19:00 05/03/18 19:00 05/03/18 19:00 05/03/18 15:30 Intake and Output: 05/03/18 05/04/18 18:59 06:59 Intake Total 550 Balance 550 - Medications Medications: Current Medications Acetaminophen (Tylenol 325mg Tab) 650 mg PO Q6 PRN PRN Reason: Pain, moderate (4-7) Last Admin: 05/01/18 19:45 Dose: 650 mg Albuterol/Ipratropium (Duoneb 3 Mg/0.5 Mg (3 Ml) Ud) 3 ml INH RQ4 [facility] Last Admin: 05/03/18 19:56 Dose: 3 ml Amlodipine Besylate (Norvasc) 10 mg PO DAILY [facility] Last Admin: 05/03/18 10:03 Dose: Not Given Benzonatate (Tessalon Perles) 100 mg PO TID [facility] Last Admin: 05/03/18 19:11 Dose: 100 mg Epoetin Brandon (Procrit) 10,000 unit IV TTS [facility] Last Admin: 05/03/18 11:45 Dose: 10,000 unit Fenofibrate (Tricor) 48 mg PO QPM [facility] Last Admin: 05/03/18 19:10 Dose: 48 mg Hydralazine HCl (Apresoline) 25 mg PO TID [facility] Last Admin: 05/03/18 19:11 Dose: 25 mg Piperacillin Sod/Tazobactam (Sod 2.25 gm/ Sodium Chloride) 100 mls @ 200 mls/hr IV Q8H [facility]; Protocol Last Admin: 05/03/18 13:16 Dose: 200 mls/hr Vancomycin HCl 1 gm/ Sodium (Chloride) 250 mls @ 166.7 mls/hr IVPB MWF [facility]; Protocol Insulin Human Regular (Novolin R) 0 unit SC ACHS [facility]; Protocol Last Admin: 05/03/18 13:14 Dose: 1 unit Levothyroxine Sodium (Synthroid) 100 mcg PO DAILY@0630 [facility] Last Admin: 12/20/18 05:46 Dose: 100 mcg Metoprolol Succinate (Toprol Xl) 25 mg PO DAILY [facility] Last Admin: 05/03/18 10:04 Dose: Not Given Prasugrel (Effient) 10 mg PO DAILY [facility] Last Admin: 05/01/18 09:37 Dose: 10 mg Rosuvastatin Calcium (Crestor) 10 mg PO HS [facility] Last Admin: 05/02/18 21:04 Dose: 10 mg Saccharomyces Boulardii (Florastor) 250 mg PO BID [facility] Last Admin: 05/03/18 10:03 Dose: Not Given Sitagliptin Phosphate (Januvia) 25 mg PO DAILY [facility] Last Admin: 05/03/18 10:03 Dose: Not Given - Labs Labs: 05/03/18 07:17 05/03/18 07:17 PT 12.7 SECONDS (9.7-12.2) H 05/01/18 02:14 INR 1.2 05/01/18 02:14 APTT 32 SECONDS (21-34) 05/01/18 02:14 - Head Exam Head Exam: NORMAL INSPECTION - Eye Exam Eye Exam: Normal appearance - ENT Exam ENT Exam: Mucous Membranes Moist - Respiratory Exam Respiratory Exam: Clear to Ausculation Bilateral - Cardiovascular Exam Cardiovascular Exam: REGULAR RHYTHM, +S1, +S2 - GI/Abdominal Exam GI & Abdominal Exam: Soft, Normal Bowel Sounds - Extremities Exam Extremities Exam: Normal Inspection - Neurological Exam Neurological Exam: Alert, Awake - Psychiatric Exam Psychiatric exam: Normal Affect, Normal Mood Assessment and Plan (1) Acute CHF Status: Acute (2) ESRD (end stage renal disease) Status: Acute (3) Obstructive sleep apnea Status: Acute (4) COPD (chronic obstructive pulmonary disease) Status: Chronic (5) Pleural effusion Status: Acute - Assessment and Plan (Free Text) Plan: Continue antibiotics Follow cultures Bronchodilators Hemodialysis DVT/GI prophylaxis
[2018-05-04] MEDS: Albuterol-Ipratrop 3 mg / 0.5 (3 ml) UD INH SCH ×6 (00:30→20:04)
[2018-05-04] MEDS: Piperacillin/Tazobact 2.25 GM in Sodium Chloride 100 ML IV SCH ×3 (03:19→20:30)
[2018-05-04] MEDS: Levothyroxine 100 MCG TAB PO SCH (05:37)
[2018-05-04] MEDS: (Novolin R) Insulin Human Regular 100 units/ml vial SC SCH ×4 (07:40→21:41)
[2018-05-04 08:34] LABS: BASO # 0.1 K/uL (0.0-0.2); BASO % 0.3 % (0.0-2.0); EOS # 0.3 K/uL (0.0-0.7); EOS % 1.3 % (0.0-4.0); HEMOGLOBIN 10.1 g/dL (11.0-16.0); LYMPH % 19.5 % (20.0-40.0); MEAN CELL VOLUME 89.8 fL (81.0-99.0); MEAN CORPUSCULAR HEMOGLOBIN 30.1 pg (27.0-31.0); MEAN CORPUSCULAR HGB CONC 33.6 g/dL (33.0-37.0); MEAN PLATELET VOLUME 9.2 fL (7.2-11.7); MONO # 6.6 K/uL (0.0-0.8); MONO % 32.4 % (0.0-10.0); NEUT # 9.5 K/uL (1.8-7.0); NEUT % 46.5 % (50.0-75.0); PLATELET COUNT 67 K/uL (130-400); RBC 3.36 Mil/uL (3.80-5.20); RED CELL DISTRIBUTION WIDTH 19.1 % (11.5-14.5); WHITE BLOOD COUNT 20.5 K/uL (4.8-10.8)
[2018-05-04] MEDS ORDERED: EPOETIN ALFA 10,000 UNIT/ML ML IV SCH (09:00)
[2018-05-04 09:19] LABS: BASOPHIL 1 % (0-2); EOSINOPHIL 2 % (0-4); LYMPHOCYTE 17 % (20-40); MONOCYTE 30 % (0-10); MYELOCYTE 1 % (0-0); NEUTROPHIL 49 % (50-75); TOTAL CELLS COUNTED 100
[2018-05-04 09:20] LABS: ANISOCYTOSIS SLIGHT; HYPOCHROMIC SLIGHT; LARGE PLATELETS PRESENT; PLATELET ESTIMATE DECREASED (NORMAL); POIKILOCYTOSIS SLIGHT
[2018-05-04 09:38] LABS: ALB/GLOB RATIO 0.7 (1.0-2.1); ALBUMIN 3.5 g/dL (3.5-5.0); CALCIUM 8.2 mg/dl (8.6-10.4)
[2018-05-04] MEDS: Metoprolol Succinate 25 mg XL Tab PO SCH (09:51)
[2018-05-04] MEDS: Saccharomyces Boulardi 250 mg Cap PO SCH ×2 (09:51→17:51)
--- NOTE | 2018-05-04 10:03 | CP.PCM.PN ---
Subjective - Date & Time of Evaluation Date of Evaluation: 05/04/18 Time of Evaluation: 16:14 - Subjective Subjective: PGY-[address] Miguel Patient seen and examined at bedside this morning prior to permacath replacement. She had no complaints at that times, denying fevers, chills, or pain at original permacath site. She states that her breathing has improved - did get short of breath when walking, but this is normal for her. Otherwise denies any chest pain, headache, dizziness, nausea, vomiting, diarrhea. Per surgery, procedure without complications and patient tolerated well. Objective - Vital Signs/Intake and Output Vital Signs (last 24 hours): Temp Pulse Resp BP Pulse Ox 98.4 F 95 H 20 150/67 97 05/04/18 07:00 05/04/18 07:20 05/04/18 07:00 05/04/18 07:00 05/04/18 07:00 Intake and Output: 05/04/18 05/04/18 06:59 18:59 Intake Total 100 Balance 100 - Medications Medications: Current Medications Acetaminophen (Tylenol 325mg Tab) 650 mg PO Q6 PRN PRN Reason: Pain, moderate (4-7) Last Admin: 05/01/18 19:45 Dose: 650 mg Albuterol/Ipratropium (Duoneb 3 Mg/0.5 Mg (3 Ml) Ud) 3 ml INH RQ4 [facility] Last Admin: 05/04/18 04:20 Dose: 3 ml Amlodipine Besylate (Norvasc) 10 mg PO DAILY [facility] Last Admin: 05/04/18 09:51 Dose: 10 mg Benzonatate (Tessalon Perles) 100 mg PO TID [facility] Last Admin: 05/04/18 09:51 Dose: 100 mg Epoetin Brandon (Procrit) 10,000 unit IV TTS [facility] Last Admin: 05/03/18 11:45 Dose: 10,000 unit Fenofibrate (Tricor) 48 mg PO QPM [facility] Last Admin: 05/03/18 19:10 Dose: 48 mg Hydralazine HCl (Apresoline) 25 mg PO TID [facility] Last Admin: 05/04/18 09:51 Dose: 25 mg Piperacillin Sod/Tazobactam (Sod 2.25 gm/ Sodium Chloride) 100 mls @ 200 mls/hr IV Q8H [facility]; Protocol Last Admin: 05/04/18 03:19 Dose: 200 mls/hr Vancomycin HCl 1 gm/ Sodium (Chloride) 250 mls @ 166.7 mls/hr IVPB MWF [facility]; Protocol Last Admin: 05/04/18 09:59 Dose: 166.7 mls/hr Insulin Human Regular (Novolin R) 0 unit SC ACHS [facility]; Protocol Last Admin: 05/04/18 07:40 Dose: Not Given Levothyroxine Sodium (Synthroid) 100 mcg PO DAILY@0630 [facility] Last Admin: 05/04/18 05:37 Dose: 100 mcg Metoprolol Succinate (Toprol Xl) 25 mg PO DAILY [facility] Last Admin: 05/04/18 09:51 Dose: 25 mg Prasugrel (Effient) 10 mg PO DAILY [facility] Last Admin: 05/01/18 09:37 Dose: 10 mg Rosuvastatin Calcium (Crestor) 10 mg PO HS [facility] Last Admin: 05/03/18 21:01 Dose: 10 mg Saccharomyces Boulardii (Florastor) 250 mg PO BID [facility] Last Admin: 05/04/18 09:51 Dose: 250 mg Sitagliptin Phosphate (Januvia) 25 mg PO DAILY [facility] Last Admin: 05/04/18 10:00 Dose: Not Given - Labs Labs: 05/04/18 08:00 05/04/18 08:00 PT 12.7 SECONDS (9.7-12.2) H 05/01/18 02:14 INR 1.2 05/01/18 02:14 APTT 32 SECONDS (21-34) 05/01/18 02:14 - Constitutional Appears: Non-toxic, No Acute Distress - Head Exam Head Exam: ATRAUMATIC, NORMAL INSPECTION - Eye Exam Eye Exam: EOMI - ENT Exam ENT Exam: Mucous Membranes Moist - Respiratory Exam Respiratory Exam: Rhonchi (Diffuse rhonchi), NORMAL BREATHING PATTERN. absent: Rales, Wheezes - Cardiovascular Exam Cardiovascular Exam: RRR, +S1, +S2 Additional comments: Permacath dressings clean dry intact - GI/Abdominal Exam GI & Abdominal Exam: Soft, Normal Bowel Sounds. absent: Tenderness - Extremities Exam Extremities Exam: Normal Inspection. absent: Pedal Edema - Neurological Exam Neurological Exam: Alert, Awake, CN II-XII Intact, Oriented x3 - Skin Skin Exam: Dry, Normal Color, Warm Assessment and Plan - Assessment and Plan (Free Text) Assessment: 83yo female PMH ESRD on HD TTS, COPD, PVD , CHF with preserved EF, HTN, myelodyplastic syndrome, hypothyroidism and recent pneumonia who is admitted for HCAP with pleural effusions. Plan: Pleural effusions with exacerbation of CHF History of COPD - CXR (05/01): Interval patchy coalescent airspace opacities medial right lung base confluent areas of pulmonary venous congestion and pulmonary edema are favored. A concomitant patchy infiltrate-change here is not excluded. Interval subsegmental atelectasis with or without fissural fluid left mid lung zone. Asymmetrically elevated left hemidiaphragm with left basal compressive atelecta sis and left inferolateral pleural effusion/thickening re-noted. Concomitant left subsegmental infiltrate here not excluded No definite interval change at the left lung base noted. - CT Chest (05/02): interval decrease in L pleural effusion and near complete resolution of R pleural effusion. residual multifocal atelectatsis in L lung and RLL, no evidence of pneumonia. mild cardiomegaly and small pericardial effusion. - Pulm consulted: Dr. Hernandez - help appreciated - ID consulted: Dr. Rordiguez - help appreciated - WBC 17.7 on admission - Mycoplasma neg, Flu A/B neg, Legionella neg - Blood Cx (05/01): gram positive cocci in clusters - 1/2 cultures growing Staph A and Coag neg Staph - taken separately from two diff sites - Nares MRSA screen (05/01) neg - Duonebs q4 [facility] - Vancomycin 1gm IVPB daily (started 05/01) - Trough 05/04 7.0 - Zosyn 2.25gm IV q8 (started 05/01) - Tessalon Perles 100mg po tid - pulm toilet Blood Cultures Growing Staph Aureus/Coag Neg Staph - 1/2 cultures positive - Surgery Consulted, Dr. Plummer, help appreciated. - -Permacath replaced today as potential nidus for infection - -Procedure proceded without complication. Per surgery, site did not appear infected in the OR. - -Permacath tip Cx - f/u ESRD on HD TTS - Nephro consulted: Dr. Langston - recs appreciated - HD restarted on TTS schedule - EPO started for persistent decreasing Hgb - Per surgery will hold on AVF creation at this time due to thrombocytopenia. Patient to use permacath for now. - renally dose medication Thrombocytopenia - Hx CMML, though platelet count has been decreasing - - Plts 97 on admission -> 88 -> 78 -> 72 -> 67 today - continue to hold Prasugrel - f/u HIT/NOMAN to r/o HIT - monitor with AM labs Anemia of Chronic Disease - H&H 7.4/22.5 on admission - Iron studies: Fe 78, TIBC 223, %sat 35, Ferritin 775.0 - transfused 2u PRBC with HD (05/01), Hb responded appropriately (7.0 -> 10.8) - monitor with AM labs - transfuse prn Diastolic CHF, chronic - BNP 6830 on admission - EKG: NSR@91 - elevate head of bed - Strict I&Os - Fluid restriction Hypertension - home Norvasc 10mg PO daily - home Metoprolol XL 25mg PO daily - Hydralazine 25mg po tid Hyperlipidemia - home Crestor 10mg PO HS - home Fenofibrate 48mg PO qPM Diabetes Mellitus - home Januvia 25mg PO daily - Accuchecks ACHS - ISS - hypoglycemia protocol Hypothyroidism - home Levothyroxine 100mcg PO daily History of myelodysplastic syndrome/leukemia - Heme/Onc consulted: Dr. Lopez Day - outpatient physician - help appreciated - WBC 17.7 on admission, INR 1.2 - home Prasugrel held 2/2 thrombocytopenia PPX: - DVT: home Prasugrel held for increased bleed risk from thrombocytopenia, SCDs - GI: Florastor 250mg PO BID - Diet: Heart healthy diet, 2g Na - Palliative Care consult for goals of care discussion as this is her third hospitalization in as many months - Tylenol 650mg po q6 prn for headache/pain Dispo: SW referral for d/c. PT eval for d/c. Patient needs to have chair back at HD before discharge. d/w Dr. Myriam lA PGY-1
[2018-05-04] MEDS ORDERED: HEPARIN-NS 5,000 UNITS/500 ML 5,000 UNIT/500 ML BAG IV ONE (12:00)
[2018-05-04] MEDS ORDERED: Lidocaine Hydrochloride 10 ML INJ ONE (12:00)
[2018-05-04] MEDS ORDERED: Midazolam 2 MG/2 ML VIAL ONE (12:23)
--- NOTE | 2018-05-04 12:26 | CP.PCM.PN ---
Subjective - Date & Time of Evaluation Date of Evaluation: 05/04/18 Time of Evaluation: 12:24 - Subjective Subjective: For permcath change now Much less SOB 1/2 blood cultures positive for staph epi agree with holding AV access in view of positve culture stable dialysis 05/03 Objective - Vital Signs/Intake and Output Vital Signs (last 24 hours): Temp Pulse Resp BP Pulse Ox 98.4 F 95 H 20 150/67 97 05/04/18 07:00 05/04/18 07:20 05/04/18 07:00 05/04/18 07:00 05/04/18 07:00 Intake and Output: 05/04/18 05/04/18 06:59 18:59 Intake Total 100 Balance 100 - Medications Medications: Current Medications Acetaminophen (Tylenol 325mg Tab) 650 mg PO Q6 PRN PRN Reason: Pain, moderate (4-7) Last Admin: 05/01/18 19:45 Dose: 650 mg Albuterol/Ipratropium (Duoneb 3 Mg/0.5 Mg (3 Ml) Ud) 3 ml INH RQ4 [facility] Last Admin: 05/04/18 11:30 Dose: Not Given Amlodipine Besylate (Norvasc) 10 mg PO DAILY [facility] Last Admin: 05/04/18 09:51 Dose: 10 mg Benzonatate (Tessalon Perles) 100 mg PO TID [facility] Last Admin: 05/04/18 09:51 Dose: 100 mg Epoetin Brandon (Procrit) 10,000 unit IV TTS [facility] Last Admin: 05/03/18 11:45 Dose: 10,000 unit Fenofibrate (Tricor) 48 mg PO QPM [facility] Last Admin: 05/03/18 19:10 Dose: 48 mg Hydralazine HCl (Apresoline) 25 mg PO TID [facility] Last Admin: 05/04/18 09:51 Dose: 25 mg Piperacillin Sod/Tazobactam (Sod 2.25 gm/ Sodium Chloride) 100 mls @ 200 mls/hr IV Q8H [facility]; Protocol Last Admin: 05/04/18 03:19 Dose: 200 mls/hr Vancomycin HCl 1 gm/ Sodium (Chloride) 250 mls @ 166.7 mls/hr IVPB MWF [facility]; Protocol Last Admin: 05/04/18 09:59 Dose: 166.7 mls/hr Insulin Human Regular (Novolin R) 0 unit SC ACHS [facility]; Protocol Last Admin: 05/04/18 07:40 Dose: Not Given Levothyroxine Sodium (Synthroid) 100 mcg PO DAILY@0630 [facility] Last Admin: 05/04/18 05:37 Dose: 100 mcg Metoprolol Succinate (Toprol Xl) 25 mg PO DAILY [facility] Last Admin: 05/04/18 09:51 Dose: 25 mg Prasugrel (Effient) 10 mg PO DAILY [facility] Last Admin: 05/01/18 09:37 Dose: 10 mg Rosuvastatin Calcium (Crestor) 10 mg PO HS [facility] Last Admin: 05/03/18 21:01 Dose: 10 mg Saccharomyces Boulardii (Florastor) 250 mg PO BID [facility] Last Admin: 05/04/18 09:51 Dose: 250 mg Sitagliptin Phosphate (Januvia) 25 mg PO DAILY [facility] Last Admin: 05/04/18 10:00 Dose: Not Given - Labs Labs: 05/04/18 08:00 05/04/18 08:00 PT 12.7 SECONDS (9.7-12.2) H 05/01/18 02:14 INR 1.2 05/01/18 02:14 APTT 32 SECONDS (21-34) 05/01/18 02:14 - Constitutional Appears: No Acute Distress, Chronically Ill - Head Exam Head Exam: ATRAUMATIC, NORMAL INSPECTION - Eye Exam Eye Exam: EOMI, Normal appearance - Neck Exam Neck Exam: Normal Inspection. absent: Tenderness - Respiratory Exam Respiratory Exam: Rhonchi, NORMAL BREATHING PATTERN - Cardiovascular Exam Cardiovascular Exam: REGULAR RHYTHM, +S1 - GI/Abdominal Exam GI & Abdominal Exam: Soft. absent: Tenderness - Extremities Exam Extremities Exam: Normal Inspection. absent: Tenderness - Neurological Exam Neurological Exam: Awake, CN II-XII Intact - Skin Skin Exam: Dry, Warm Assessment and Plan (1) ESRD (end stage renal disease) Status: Acute (2) CHF (congestive heart failure) Status: Acute (3) CMML (chronic myelomonocytic leukemia) Status: Acute (4) Chronic anemia Status: Acute (5) Leukocytosis Status: Acute (6) Pleural effusion Status: Acute - Assessment and Plan (Free Text) Plan: Change permcath now IV ABs dialysis TTS eventual AV access
[2018-05-04] MEDS ORDERED: Propofol 10 mg/ml Inj (20 ML) ONE (12:35)
[2018-05-04] MEDS ORDERED: Iohexol 240 (50 ml) ONE (12:42)
[2018-05-04] MEDS ORDERED: Piperacillin/Tazobact 3.375 gm 100 ML IVPB ONE (12:52)
--- NOTE | 2018-05-04 13:23 | PCM.SURG1 ---
Surgeon's Initial Post Op Note - Surgeon's Notes Surgeon: Dr. Plummer Valet Cashier: Dr. Mehta PGY2 Type of Anesthesia: IV Sedation, Local Anesthesia Administered By: Dr. Yudy Blandon CRNA Pre-Operative Diagnosis: End Stage Renal Disease; Bacteremia Operative Findings: See operative report Post-Operative Diagnosis: Same Operation Performed: Exchange of Right IJ Permacath Specimen/Specimens Removed: none Estimated Blood Loss: EBL {In ML}: 20 Blood Products Given: N/A Drains Used: No Drains Post-Op Condition: Good Date of Surgery/Procedure: 05/04/18 Time of Surgery/Procedure: 13:23
[2018-05-04] MEDS ORDERED: HYDROmorphone 0.5 mg/0.5 ml ISec IVP PRN (13:25)
[2018-05-04] MEDS ORDERED: Lactated Ringer's 1,000 ML IV SCH (13:30)
--- NOTE | 2018-05-04 14:08 | RAD ---
Date of service: 05/04/2018 HISTORY: Right IJ permacath COMPARISON: 05/01/2018. FINDINGS: Right-sided dialysis catheter terminates in the right atrium. LUNGS: There is interval worsening aeration in the lungs with development of alveolar pulmonary edema. PLEURA: Persistent moderate left pleural effusion. No pneumothorax. CARDIOVASCULAR: Cardiomediastinal silhouette is stable. There are atherosclerotic aortic arch calcifications present. OSSEOUS STRUCTURES: Within normal limits for the patient's age. VISUALIZED UPPER ABDOMEN: Normal. OTHER FINDINGS: None. IMPRESSION: Interval development of pulmonary edema. Moderate pleural effusion without interval change. Right-sided dialysis catheter terminates in the right atrium. No pneumothorax.
--- NOTE | 2018-05-04 15:20 | CP.PCM.PN ---
Subjective - Date & Time of Evaluation Date of Evaluation: 05/04/18 Time of Evaluation: 15:19 - Subjective Subjective: Patient seen and examined S/P PermCath replacement Reports improved dyspnea. Objective - Vital Signs/Intake and Output Vital Signs (last 24 hours): Temp Pulse Resp BP Pulse Ox 98.4 F 77 18 162/57 H 99 05/04/18 14:00 05/04/18 14:00 05/04/18 14:00 05/04/18 14:00 05/04/18 14:00 Intake and Output: 05/04/18 05/04/18 06:59 18:59 Intake Total 100 260 Balance 100 260 - Medications Medications: Current Medications Acetaminophen (Tylenol 325mg Tab) 650 mg PO Q6 PRN PRN Reason: Pain, moderate (4-7) Last Admin: 05/01/18 19:45 Dose: 650 mg Albuterol/Ipratropium (Duoneb 3 Mg/0.5 Mg (3 Ml) Ud) 3 ml INH RQ4 [facility] Last Admin: 05/04/18 11:30 Dose: Not Given Amlodipine Besylate (Norvasc) 10 mg PO DAILY [facility] Last Admin: 05/04/18 09:51 Dose: 10 mg Benzonatate (Tessalon Perles) 100 mg PO TID [facility] Last Admin: 05/04/18 13:15 Dose: Not Given Epoetin Brandon (Procrit) 10,000 unit IV TTS [facility] Last Admin: 05/03/18 11:45 Dose: 10,000 unit Fenofibrate (Tricor) 48 mg PO QPM [facility] Last Admin: 05/03/18 19:10 Dose: 48 mg Hydralazine HCl (Apresoline) 25 mg PO TID [facility] Last Admin: 05/04/18 13:15 Dose: Not Given Hydromorphone HCl (Dilaudid) 0.5 mg IVP Q10M PRN PRN Reason: Pain, moderate (4-7) Stop: 05/04/18 15:27 Piperacillin Sod/Tazobactam (Sod 2.25 gm/ Sodium Chloride) 100 mls @ 200 mls/hr IV Q8H [facility]; Protocol Last Admin: 05/04/18 13:15 Dose: Not Given Vancomycin HCl 1 gm/ Sodium (Chloride) 250 mls @ 166.7 mls/hr IVPB MWF [facility]; Protocol Last Admin: 05/04/18 09:59 Dose: 166.7 mls/hr Lactated Ringer's (Lactated Ringer's) 1,000 mls @ 100 mls/hr IV .Q10H [facility] Insulin Human Regular (Novolin R) 0 unit SC ACHS [facility]; Protocol Last Admin: 05/04/18 13:14 Dose: Not Given Levothyroxine Sodium (Synthroid) 100 mcg PO DAILY@0630 [facility] Last Admin: 05/04/18 05:37 Dose: 100 mcg Metoprolol Succinate (Toprol Xl) 25 mg PO DAILY [facility] Last Admin: 05/04/18 09:51 Dose: 25 mg Ondansetron HCl (Zofran Inj) 4 mg IVP ONCE PRN PRN Reason: Nausea/Vomiting Stop: 05/04/18 15:28 Prasugrel (Effient) 10 mg PO DAILY [facility] Last Admin: 05/01/18 09:37 Dose: 10 mg Rosuvastatin Calcium (Crestor) 10 mg PO HS [facility] Last Admin: 05/03/18 21:01 Dose: 10 mg Saccharomyces Boulardii (Florastor) 250 mg PO BID [facility] Last Admin: 05/04/18 09:51 Dose: 250 mg Sitagliptin Phosphate (Januvia) 25 mg PO DAILY [facility] Last Admin: 05/04/18 10:00 Dose: Not Given - Labs Labs: 05/04/18 08:00 05/04/18 08:00 PT 12.7 SECONDS (9.7-12.2) H 05/01/18 02:14 INR 1.2 05/01/18 02:14 APTT 32 SECONDS (21-34) 05/01/18 02:14 - Head Exam Head Exam: NORMAL INSPECTION - Eye Exam Eye Exam: Normal appearance - ENT Exam ENT Exam: Mucous Membranes Moist - Respiratory Exam Respiratory Exam: Clear to Ausculation Bilateral, NORMAL BREATHING PATTERN - Cardiovascular Exam Cardiovascular Exam: REGULAR RHYTHM, +S1, +S2 - GI/Abdominal Exam GI & Abdominal Exam: Soft, Normal Bowel Sounds - Extremities Exam Extremities Exam: Normal Inspection - Neurological Exam Neurological Exam: Alert, Oriented x3 - Psychiatric Exam Psychiatric exam: Normal Affect, Normal Mood Assessment and Plan (1) Acute CHF Status: Acute (2) ESRD (end stage renal disease) Status: Acute (3) Obstructive sleep apnea Status: Acute (4) COPD (chronic obstructive pulmonary disease) Status: Chronic (5) Pleural effusion Status: Acute - Assessment and Plan (Free Text) Plan: Bronchodilators Oxygen supplementation Continue antibiotics Hemodialysis as per renal BiPAP as needed DVT/GI prophylaxis
--- NOTE | 2018-05-04 18:28 | CP.PCM.PN ---
Subjective - Date & Time of Evaluation Date of Evaluation: 05/04/18 Time of Evaluation: 08:00 - Subjective Subjective: s/p replacement of permacath denies fever or chills Objective - Vital Signs/Intake and Output Vital Signs (last 24 hours): Temp Pulse Resp BP Pulse Ox 98.0 F 89 18 137/60 97 05/04/18 17:32 05/04/18 17:32 05/04/18 17:32 05/04/18 17:32 05/04/18 17:32 Intake and Output: 05/04/18 05/04/18 06:59 18:59 Intake Total 100 260 Balance 100 260 - Medications Medications: Current Medications Acetaminophen (Tylenol 325mg Tab) 650 mg PO Q6 PRN PRN Reason: Pain, moderate (4-7) Last Admin: 05/01/18 19:45 Dose: 650 mg Albuterol/Ipratropium (Duoneb 3 Mg/0.5 Mg (3 Ml) Ud) 3 ml INH RQ4 [facility] Last Admin: 05/04/18 17:56 Dose: Not Given Amlodipine Besylate (Norvasc) 10 mg PO DAILY [facility] Last Admin: 05/04/18 09:51 Dose: 10 mg Benzonatate (Tessalon Perles) 100 mg PO TID [facility] Last Admin: 05/04/18 17:50 Dose: 100 mg Epoetin Brandon (Procrit) 10,000 unit IV TTS [facility] Last Admin: 05/03/18 11:45 Dose: 10,000 unit Fenofibrate (Tricor) 48 mg PO QPM [facility] Last Admin: 05/04/18 17:50 Dose: 48 mg Hydralazine HCl (Apresoline) 25 mg PO TID [facility] Last Admin: 05/04/18 17:51 Dose: 25 mg Piperacillin Sod/Tazobactam (Sod 2.25 gm/ Sodium Chloride) 100 mls @ 200 mls/hr IV Q8H [facility]; Protocol Last Admin: 05/04/18 13:15 Dose: Not Given Vancomycin HCl 1 gm/ Sodium (Chloride) 250 mls @ 166.7 mls/hr IVPB MWF [facility]; Protocol Last Admin: 05/04/18 09:59 Dose: 166.7 mls/hr Insulin Human Regular (Novolin R) 0 unit SC ACHS [facility]; Protocol Last Admin: 05/04/18 17:49 Dose: 1 unit Levothyroxine Sodium (Synthroid) 100 mcg PO DAILY@0630 [facility] Last Admin: 05/04/18 05:37 Dose: 100 mcg Metoprolol Succinate (Toprol Xl) 25 mg PO DAILY [facility] Last Admin: 05/04/18 09:51 Dose: 25 mg Prasugrel (Effient) 10 mg PO DAILY [facility] Last Admin: 05/01/18 09:37 Dose: 10 mg Prednisolone Acetate (Pred Forte 1% Opht Susp) 0 ml OU BID [facility] Rosuvastatin Calcium (Crestor) 10 mg PO HS [facility] Last Admin: 05/03/18 21:01 Dose: 10 mg Saccharomyces Boulardii (Florastor) 250 mg PO BID [facility] Last Admin: 05/04/18 17:51 Dose: 250 mg Sitagliptin Phosphate (Januvia) 25 mg PO DAILY [facility] Last Admin: 05/04/18 10:00 Dose: Not Given - Labs Labs: 05/04/18 08:00 05/04/18 08:00 PT 12.7 SECONDS (9.7-12.2) H 05/01/18 02:14 INR 1.2 05/01/18 02:14 APTT 32 SECONDS (21-34) 05/01/18 02:14 - Constitutional Appears: Non-toxic, Chronically Ill - Head Exam Head Exam: NORMOCEPHALIC - Eye Exam Eye Exam: absent: Scleral icterus - ENT Exam ENT Exam: Mucous Membranes Dry - Neck Exam Neck Exam: absent: Lymphadenopathy - Respiratory Exam Respiratory Exam: Decreased Breath Sounds - Cardiovascular Exam Cardiovascular Exam: REGULAR RHYTHM - GI/Abdominal Exam GI & Abdominal Exam: Distended, Soft - Rectal Exam Rectal Exam: Deferred - Exam Exam: NORMAL INSPECTION - Extremities Exam Extremities Exam: absent: Pedal Edema - Back Exam Back Exam: absent: CVA tenderness (L), CVA tenderness (R) - Neurological Exam Neurological Exam: Alert, Awake, Oriented x3 - Psychiatric Exam Psychiatric exam: Depressed - Skin Skin Exam: Dry Assessment and Plan (1) Acute CHF Status: Acute (2) ESRD (end stage renal disease) Status: Acute (3) Pneumonia Status: Acute - Assessment and Plan (Free Text) Assessment: catheter replaced repeat cultures neg thus far
[2018-05-04] MEDS: PrednisoLONE 1% Opht Susp(5 ml) OU SCH (21:57)
[2018-05-05] MEDS: Albuterol-Ipratrop 3 mg / 0.5 (3 ml) UD INH SCH ×6 (00:36→19:40)
--- NOTE | 2018-05-05 00:49 | OP ---
PROCEDURE DATE: 05/04/2018 PREOPERATIVE DIAGNOSES: Renal failure, positive blood culture. POSTOPERATIVE DIAGNOSES: Renal failure, positive blood culture. PROCEDURE CARRIED OUT: Placement of Perm-A-Cath, right jugular vein with fluoroscopy. SURGEON: Indra Plummer Jr., MD SHELL MOLD BONDER: Obey Mehta DO ANESTHESIOLOGIST: Amelia Blandon CRNA INDICATION OF PROCEDURE: The patient is an elderly woman with a history of renal failure, awaiting to have a fistula placed, had a positive blood culture. Because of this, the catheter was removed. OPERATIVE FINDINGS: The catheter was removed, uneventfully. There was no sign of any pus or purulence. The catheter was then wired and a new sheath dilator passed over this. A new exit site was chosen. The catheter was then draped on the chest wall. A longer catheter was used, which we draped and lowered down on the chest wall. BLOOD LOSS OF THE PROCEDURE: 50 mL. DESCRIPTION OF PROCEDURE: The patient was given anesthesia. Intravenous antibiotics were previously and systemically administered. An incision was made in the neck and the catheter was exposed. The catheter was grasped with two clamps, divided. Wire passed distally and a sheath dilator was passed inside of this. We then removed the old catheter completely. Then, deployed the new catheter. Initially, there was some problem with the 23 cm catheter, so we switched to 27 to allow for better draping, better placement, and a separate exit site. The catheter was then originated on the right chest wall, went to the jugular vein and terminated in the superior vena cava. Blood loss was as mentioned. The wound was secured to the skin and flushed with heparinized saline. There was excellent inflow and outflow. OPERATION CARRIED OUT: Removal of old, placement of new Perm-A-Cath, right jugular vein. Indra Plummer Jr., MD
--- NOTE | 2018-05-05 01:59 | CP.PCM.PN ---
Subjective - Date & Time of Evaluation Date of Evaluation: 05/05/18 Time of Evaluation: 04:15 - Subjective Subjective: PGY-1 Medicine Progress Note for Dr. Miguel Patient was seen and examined at bedside in no acute distress. Nurse reports no overnight events. Patient is feeling anxious about going home as soon as possible. She has no new complaints, requests her HD be done as early in the day as possible as she believes it means she can go home sooner. Denies chest pain, shortness of breath, abdominal pain, n/v/c/d. She still has some soreness around the new Permacath, which she describes similar to the last time she had it replaced. Objective - Vital Signs/Intake and Output Vital Signs (last 24 hours): Temp Pulse Resp BP Pulse Ox 98.0 F 89 18 137/60 97 05/04/18 17:32 05/04/18 17:32 05/04/18 17:32 05/04/18 17:32 05/04/18 17:32 Intake and Output: 05/04/18 05/05/18 18:59 06:59 Intake Total 260 Balance 260 - Medications Medications: Current Medications Acetaminophen (Tylenol 325mg Tab) 650 mg PO Q6 PRN PRN Reason: Pain, moderate (4-7) Last Admin: 05/04/18 19:21 Dose: 650 mg Albuterol/Ipratropium (Duoneb 3 Mg/0.5 Mg (3 Ml) Ud) 3 ml INH RQ4 [facility] Last Admin: 05/05/18 00:36 Dose: 3 ml Amlodipine Besylate (Norvasc) 10 mg PO DAILY [facility] Last Admin: 05/04/18 09:51 Dose: 10 mg Benzonatate (Tessalon Perles) 100 mg PO TID [facility] Last Admin: 05/04/18 17:50 Dose: 100 mg Epoetin Brandon (Procrit) 10,000 unit IV TTS [facility] Last Admin: 05/03/18 11:45 Dose: 10,000 unit Fenofibrate (Tricor) 48 mg PO QPM [facility] Last Admin: 05/04/18 17:50 Dose: 48 mg Hydralazine HCl (Apresoline) 25 mg PO TID [facility] Last Admin: 05/04/18 17:51 Dose: 25 mg Piperacillin Sod/Tazobactam (Sod 2.25 gm/ Sodium Chloride) 100 mls @ 200 mls/hr IV Q8H [facility]; Protocol Last Admin: 05/04/18 20:30 Dose: 200 mls/hr Vancomycin HCl 1 gm/ Sodium (Chloride) 250 mls @ 166.7 mls/hr IVPB MWF [facility]; Protocol Last Admin: 05/04/18 09:59 Dose: 166.7 mls/hr Insulin Human Regular (Novolin R) 0 unit SC ACHS [facility]; Protocol Last Admin: 05/04/18 21:41 Dose: Not Given Levothyroxine Sodium (Synthroid) 100 mcg PO DAILY@0630 [facility] Last Admin: 05/04/18 05:37 Dose: 100 mcg Metoprolol Succinate (Toprol Xl) 25 mg PO DAILY [facility] Last Admin: 05/04/18 09:51 Dose: 25 mg Prasugrel (Effient) 10 mg PO DAILY [facility] Last Admin: 05/01/18 09:37 Dose: 10 mg Prednisolone Acetate (Pred Forte 1% Opht Susp) 0 ml OU BID [facility] Last Admin: 05/04/18 21:57 Dose: 1 drop Rosuvastatin Calcium (Crestor) 10 mg PO HS [facility] Last Admin: 05/04/18 21:57 Dose: 10 mg Saccharomyces Boulardii (Florastor) 250 mg PO BID [facility] Last Admin: 05/04/18 17:51 Dose: 250 mg Sitagliptin Phosphate (Januvia) 25 mg PO DAILY [facility] Last Admin: 05/04/18 10:00 Dose: Not Given - Labs Labs: 05/04/18 08:00 05/04/18 08:00 PT 12.7 SECONDS (9.7-12.2) H 05/01/18 02:14 INR 1.2 05/01/18 02:14 APTT 32 SECONDS (21-34) 05/01/18 02:14 - Constitutional Appears: Non-toxic, No Acute Distress - Head Exam Head Exam: ATRAUMATIC, NORMOCEPHALIC - Eye Exam Eye Exam: EOMI, Normal appearance - ENT Exam ENT Exam: Mucous Membranes Moist - Respiratory Exam Respiratory Exam: Decreased Breath Sounds. absent: Rales, Rhonchi, Wheezes Additional comments: NC on 3L O2 - Cardiovascular Exam Cardiovascular Exam: REGULAR RHYTHM, +S1, +S2. absent: Gallop, Rubs, Murmur Additional comments: Permacath in R chest, dressing c/d/i - GI/Abdominal Exam GI & Abdominal Exam: Soft, Normal Bowel Sounds. absent: Guarding, Tenderness - Extremities Exam Extremities Exam: Normal Capillary Refill Additional comments: peripheral pulses palpable bilateraly (radial, PT) IV access in R hand L arm restriction for AVF - Neurological Exam Neurological Exam: Alert, Awake, Oriented x3 - Psychiatric Exam Psychiatric exam: Normal Affect, Normal Mood - Skin Skin Exam: Normal Color, Warm Assessment and Plan - Assessment and Plan (Free Text) Assessment: 83yo female PMH ESRD on HD TTS, COPD, PVD , CHF with preserved EF, HTN, myelodyplastic syndrome, hypothyroidism and recent pneumonia who is admitted for HCAP with pleural effusions. Due to positive blood cultures, Permacath was replaced. Plan: Pleural effusions with exacerbation of CHF History of COPD - CXR (05/01): Interval patchy coalescent airspace opacities medial right lung b ase confluent areas of pulmonary venous congestion and pulmonary edema are favored. A concomitant patchy infiltrate-change here is not excluded. Interval subsegmental atelectasis with or without fissural fluid left mid lung zone. Asymmetrically elevated left hemidiaphragm with left basal compressive atelectasis and left inferolateral pleural effusion/thickening re-noted. Concomitant left subsegmental infiltrate here not excluded No definite interval change at the left lung base noted. - CT Chest (05/02): interval decrease in L pleural effusion and near complete resolution of R pleural effusion. residual multifocal atelectatsis in L lung and RLL, no evidence of pneumonia. mild cardiomegaly and small pericardial effusion. - Pulm consulted: Dr. Hernandez - help appreciated - ID consulted: Dr. Rodriguez - help appreciated - WBC 17.7 on admission - Mycoplasma neg, Flu A/B neg, Legionella neg - Blood Cx (05/01): gram positive cocci in clusters - 1/2 cultures growing Staph A and Coag neg Staph - taken separately from two diff sites - Nares MRSA screen (05/01) neg - Duonebs q4 [facility] - Vancomycin 1gm IVPB MWF from daily 05/04 (started 05/01) - Trough 05/04 7.0 - Zosyn 2.25gm IV q8 (started 05/01) - Tessalon Perles 100mg po tid - pulm toilet Blood Cultures Growing Staph Aureus/Coag Neg Staph - 1/2 cultures positive - Surgery consulted: Dr. Plummer - help appreciated - Permacath replaced 05/04 as potential nidus for infection - CXR confirmed correct placement, OK for HD use - Per surgery, site did not appear infected in the OR - f/u Permacath tip Cx ESRD on HD TTS - Nephro consulted: Dr. Langston - recs appreciated - HD restarted on TTS schedule - EPO started for persistent decreasing Hgb - Per surgery, L arm restrict for AVF creation after bacteremia clears. Patient to use Permacath until then. - renally dose medication Thrombocytopenia - Hx CMML, though platelet count has been decreasing - Plts 97 on admission -> 88 -> 78 -> 72 -> 67 - continue to hold Prasugrel - f/u HIT/NOMAN to r/o HIT - monitor with AM labs Anemia of Chronic Disease - H&H 7.4/22.5 on admission - Iron studies: Fe 78, TIBC 223, %sat 35, Ferritin 775.0 - transfused 2u PRBC with HD (05/01), Hb responded appropriately (7.0 -> 10.8) - monitor with AM labs - transfuse prn Diastolic CHF, chronic - BNP 6830 on admission - EKG: NSR@91 - elevate head of bed - Strict I&Os - Fluid restriction Hypertension - home Norvasc 10mg PO daily - home Metoprolol XL 25mg PO daily - Hydralazine 25mg po tid Hyperlipidemia - home Crestor 10mg PO HS - home Fenofibrate 48mg PO qPM Diabetes Mellitus - home Januvia 25mg PO daily - Accuchecks ACHS - ISS - hypoglycemia protocol Hypothyroidism - home Levothyroxine 100mcg PO daily History of myelodysplastic syndrome/leukemia - Heme/Onc consulted: Dr. Lopez Day - outpatient physician - help appreciated - WBC 17.7 on admission, INR 1.2 - home Prasugrel held 2/2 thrombocytopenia PPX: - DVT: home Prasugrel held for increased bleed risk from thrombocytopenia, SCDs - GI: Florastor 250mg PO BID - Diet: Heart healthy diet, 2g Na - Palliative Care consult for goals of care discussion as this is her third hospitalization in as many months - Tylenol 650mg po q6 prn for headache/pain Dispo: SW referral for d/c. PT eval for d/c. Patient needs to have chair back at HD before discharge.
[2018-05-05] MEDS: Piperacillin/Tazobact 2.25 GM in Sodium Chloride 100 ML IV SCH ×3 (04:11→20:18)
[2018-05-05] MEDS: Levothyroxine 100 MCG TAB PO SCH (06:32)
[2018-05-05 08:09] LABS: BASO # 0.1 K/uL (0.0-0.2); BASO % 0.2 % (0.0-2.0); EOS # 0.3 K/uL (0.0-0.7); EOS % 1.4 % (0.0-4.0); HEMOGLOBIN 9.6 g/dL (11.0-16.0); LYMPH # 3.7 K/uL (1.0-4.3); LYMPH % 17.4 % (20.0-40.0); MEAN CELL VOLUME 91.1 fL (81.0-99.0); MEAN CORPUSCULAR HEMOGLOBIN 29.8 pg (27.0-31.0); MEAN CORPUSCULAR HGB CONC 32.7 g/dL (33.0-37.0); MEAN PLATELET VOLUME 9.7 fL (7.2-11.7); MONO # 6.2 K/uL (0.0-0.8); MONO % 29.1 % (0.0-10.0); NEUT % 51.9 % (50.0-75.0); PLATELET COUNT 65 K/uL (130-400); RBC 3.22 Mil/uL (3.80-5.20); WHITE BLOOD COUNT 21.3 K/uL (4.8-10.8)
[2018-05-05] MEDS: (Novolin R) Insulin Human Regular 100 units/ml vial SC SCH ×4 (08:19→21:28)
[2018-05-05 08:24] LABS: ALB/GLOB RATIO 0.8 (1.0-2.1); ALBUMIN 3.4 g/dL (3.5-5.0); CALCIUM 8.1 mg/dl (8.6-10.4)
--- NOTE | 2018-05-05 08:43 | CP.PCM.PN ---
Subjective - Date & Time of Evaluation Date of Evaluation: 05/05/18 Time of Evaluation: 08:40 - Subjective Subjective: Vasc Sx: Dr Plummer Pt S&e. NAEO. Resting comfortably. Minimal tenderness at permacath site. No other complaints. Denies fevers/chills. LUE restriction in place. Blood Cx results pending. Plan for AVF later next week Objective - Vital Signs/Intake and Output Vital Signs (last 24 hours): Temp Pulse Resp BP Pulse Ox 98.4 F 90 18 149/53 L 98 05/05/18 07:00 05/05/18 07:00 05/05/18 07:00 05/05/18 07:00 05/05/18 07:00 Intake and Output: 05/05/18 05/05/18 06:59 18:59 Intake Total 100 Balance 100 - Medications Medications: Current Medications Acetaminophen (Tylenol 325mg Tab) 650 mg PO Q6 PRN PRN Reason: Pain, moderate (4-7) Last Admin: 05/04/18 19:21 Dose: 650 mg Albuterol/Ipratropium (Duoneb 3 Mg/0.5 Mg (3 Ml) Ud) 3 ml INH RQ4 [facility] Last Admin: 05/05/18 04:45 Dose: 3 ml Amlodipine Besylate (Norvasc) 10 mg PO DAILY [facility] Last Admin: 05/04/18 09:51 Dose: 10 mg Benzonatate (Tessalon Perles) 100 mg PO TID [facility] Last Admin: 05/04/18 17:50 Dose: 100 mg Epoetin Brandon (Procrit) 10,000 unit IV TTS [facility] Last Admin: 05/03/18 11:45 Dose: 10,000 unit Fenofibrate (Tricor) 48 mg PO QPM [facility] Last Admin: 05/04/18 17:50 Dose: 48 mg Hydralazine HCl (Apresoline) 25 mg PO TID [facility] Last Admin: 05/04/18 17:51 Dose: 25 mg Piperacillin Sod/Tazobactam (Sod 2.25 gm/ Sodium Chloride) 100 mls @ 200 mls/hr IV Q8H [facility]; Protocol Last Admin: 05/05/18 04:11 Dose: 200 mls/hr Vancomycin HCl 1 gm/ Sodium (Chloride) 250 mls @ 166.7 mls/hr IVPB MWF [facility]; Protocol Last Admin: 05/04/18 09:59 Dose: 166.7 mls/hr Insulin Human Regular (Novolin R) 0 unit SC ACHS [facility]; Protocol Last Admin: 05/05/18 08:19 Dose: Not Given Levothyroxine Sodium (Synthroid) 100 mcg PO DAILY@0630 [facility] Last Admin: 05/05/18 06:32 Dose: 100 mcg Metoprolol Succinate (Toprol Xl) 25 mg PO DAILY [facility] Last Admin: 05/04/18 09:51 Dose: 25 mg Prasugrel (Effient) 10 mg PO DAILY [facility] Last Admin: 05/01/18 09:37 Dose: 10 mg Prednisolone Acetate (Pred Forte 1% Opht Susp) 0 ml OU BID [facility] Last Admin: 05/04/18 21:57 Dose: 1 drop Rosuvastatin Calcium (Crestor) 10 mg PO HS [facility] Last Admin: 05/04/18 21:57 Dose: 10 mg Saccharomyces Boulardii (Florastor) 250 mg PO BID [facility] Last Admin: 05/04/18 17:51 Dose: 250 mg Sitagliptin Phosphate (Januvia) 25 mg PO DAILY [facility] Last Admin: 05/04/18 10:00 Dose: Not Given - Labs Labs: 05/05/18 07:58 05/05/18 07:58 PT 12.7 SECONDS (9.7-12.2) H 05/01/18 02:14 INR 1.2 05/01/18 02:14 APTT 32 SECONDS (21-34) 05/01/18 02:14 - Constitutional Appears: Non-toxic, No Acute Distress - Respiratory Exam Respiratory Exam: absent: Respiratory Distress - GI/Abdominal Exam GI & Abdominal Exam: Soft. absent: Distended, Tenderness - Neurological Exam Neurological Exam: Alert, Awake - Skin Additional comments: permacath site C/D/I Assessment and Plan - Assessment and Plan (Free Text) Assessment: 83F with bacteremia Plan: permacath replaced f/u blood cx plan for AVF next week d/w Dr Elian Monique, PGY4
--- NOTE | 2018-05-05 09:44 | CP.PCM.PN ---
Subjective - Date & Time of Evaluation Date of Evaluation: 05/05/18 Time of Evaluation: 09:42 - Subjective Subjective: s/p permcath exchange afebrile course on IV ABs for + blood culture less dyspneic for dialysis now no other complaint Objective - Vital Signs/Intake and Output Vital Signs (last 24 hours): Temp Pulse Resp BP Pulse Ox 98.6 F 88 20 151/55 H 98 05/05/18 09:25 05/05/18 09:25 05/05/18 09:25 05/05/18 09:25 05/05/18 09:25 Intake and Output: 05/05/18 05/05/18 06:59 18:59 Intake Total 100 Balance 100 - Medications Medications: Current Medications Acetaminophen (Tylenol 325mg Tab) 650 mg PO Q6 PRN PRN Reason: Pain, moderate (4-7) Last Admin: 05/04/18 19:21 Dose: 650 mg Albuterol/Ipratropium (Duoneb 3 Mg/0.5 Mg (3 Ml) Ud) 3 ml INH RQ4 [facility] Last Admin: 05/05/18 04:45 Dose: 3 ml Amlodipine Besylate (Norvasc) 10 mg PO DAILY [facility] Last Admin: 05/04/18 09:51 Dose: 10 mg Benzonatate (Tessalon Perles) 100 mg PO TID [facility] Last Admin: 05/04/18 17:50 Dose: 100 mg Epoetin Brandon (Procrit) 10,000 unit IV TTS [facility] Last Admin: 05/03/18 11:45 Dose: 10,000 unit Fenofibrate (Tricor) 48 mg PO QPM [facility] Last Admin: 05/04/18 17:50 Dose: 48 mg Hydralazine HCl (Apresoline) 25 mg PO TID [facility] Last Admin: 05/04/18 17:51 Dose: 25 mg Piperacillin Sod/Tazobactam (Sod 2.25 gm/ Sodium Chloride) 100 mls @ 200 mls/hr IV Q8H [facility]; Protocol Last Admin: 05/05/18 04:11 Dose: 200 mls/hr Vancomycin HCl 1 gm/ Sodium (Chloride) 250 mls @ 166.7 mls/hr IVPB MWF [facility]; Protocol Last Admin: 05/04/18 09:59 Dose: 166.7 mls/hr Insulin Human Regular (Novolin R) 0 unit SC [facility]; Protocol Last Admin: 05/05/18 08:19 Dose: Not Given Levothyroxine Sodium (Synthroid) 100 mcg PO DAILY@0630 [facility] Last Admin: 05/05/18 06:32 Dose: 100 mcg Metoprolol Succinate (Toprol Xl) 25 mg PO DAILY [facility] Last Admin: 05/04/18 09:51 Dose: 25 mg Prasugrel (Effient) 10 mg PO DAILY [facility] Last Admin: 05/01/18 09:37 Dose: 10 mg Prednisolone Acetate (Pred Forte 1% Opht Susp) 0 ml OU BID [facility] Last Admin: 05/04/18 21:57 Dose: 1 drop Rosuvastatin Calcium (Crestor) 10 mg PO HS [facility] Last Admin: 05/04/18 21:57 Dose: 10 mg Saccharomyces Boulardii (Florastor) 250 mg PO BID [facility] Last Admin: 05/04/18 17:51 Dose: 250 mg Sitagliptin Phosphate (Januvia) 25 mg PO DAILY [facility] Last Admin: 05/04/18 10:00 Dose: Not Given - Labs Labs: 05/05/18 07:58 05/05/18 07:58 PT 12.7 SECONDS (9.7-12.2) H 05/01/18 02:14 INR 1.2 05/01/18 02:14 APTT 32 SECONDS (21-34) 05/01/18 02:14 - Constitutional Appears: No Acute Distress, Chronically Ill - Head Exam Head Exam: ATRAUMATIC, NORMAL INSPECTION - Eye Exam Eye Exam: EOMI, Normal appearance - Neck Exam Neck Exam: Normal Inspection. absent: Tenderness - Respiratory Exam Respiratory Exam: Rhonchi, NORMAL BREATHING PATTERN - Cardiovascular Exam Cardiovascular Exam: REGULAR RHYTHM, +S1 - GI/Abdominal Exam GI & Abdominal Exam: Soft. absent: Tenderness - Extremities Exam Extremities Exam: Normal Inspection. absent: Tenderness - Neurological Exam Neurological Exam: Alert, CN II-XII Intact - Skin Skin Exam: Dry, Warm Assessment and Plan (1) ESRD (end stage renal disease) Status: Acute (2) CHF (congestive heart failure) Status: Acute (3) CMML (chronic myelomonocytic leukemia) Status: Acute (4) Chronic anemia Status: Acute (5) Leukocytosis Status: Acute (6) Pleural effusion Status: Acute - Assessment and Plan (Free Text) Plan: Dialysis now and TTS Adequate UF goal IV ABs Eventual Av access
[2018-05-05] MEDS: Saccharomyces Boulardi 250 mg Cap PO SCH ×2 (10:00→17:29)
[2018-05-05] MEDS: PrednisoLONE 1% Opht Susp(5 ml) OU SCH ×2 (10:00→17:29)
[2018-05-05] MEDS: Metoprolol Succinate 25 mg XL Tab PO SCH (10:00)
[2018-05-05 11:52] LABS: EOSINOPHIL 1 % (0-4); NEUTROPHIL 45 % (50-75); TOTAL CELLS COUNTED 100
[2018-05-05 11:54] LABS: ANISOCYTOSIS SLIGHT; LYMPHOCYTE 27 % (20-40); MONOCYTE 27 % (0-10); PLATELET ESTIMATE DECREASED (NORMAL); POIKILOCYTOSIS SLIGHT
[2018-05-05 11:55] LABS: LARGE PLATELETS PRESENT; OVALOCYTES SLIGHT
[2018-05-05] MEDS: Epoetin Alfa 10,000 unit/ml Dialysis IV SCH (12:41)
--- NOTE | 2018-05-05 14:05 | CP.PCM.PN ---
Subjective - Date & Time of Evaluation Date of Evaluation: 05/05/18 Time of Evaluation: 14:03 - Subjective Subjective: Pt is seen and examined No events overnight Denies dyspnea Objective - Vital Signs/Intake and Output Vital Signs (last 24 hours): Temp Pulse Resp BP Pulse Ox 98.1 F 100 H 20 141/68 99 05/05/18 12:55 05/05/18 12:55 05/05/18 12:55 05/05/18 12:55 05/05/18 12:55 Intake and Output: 05/05/18 05/05/18 06:59 18:59 Intake Total 100 Balance 100 - Medications Medications: Current Medications Acetaminophen (Tylenol 325mg Tab) 650 mg PO Q6 PRN PRN Reason: Pain, moderate (4-7) Last Admin: 05/04/18 19:21 Dose: 650 mg Albuterol/Ipratropium (Duoneb 3 Mg/0.5 Mg (3 Ml) Ud) 3 ml INH RQ4 [facility] Last Admin: 05/05/18 12:00 Dose: Not Given Amlodipine Besylate (Norvasc) 10 mg PO DAILY [facility] Last Admin: 05/05/18 10:00 Dose: Not Given Benzonatate (Tessalon Perles) 100 mg PO TID [facility] Last Admin: 05/04/18 17:50 Dose: 100 mg Epoetin Brandon (Procrit) 10,000 unit IV TTS [facility] Last Admin: 05/05/18 12:41 Dose: 10,000 unit Fenofibrate (Tricor) 48 mg PO QPM [facility] Last Admin: 05/04/18 17:50 Dose: 48 mg Hydralazine HCl (Apresoline) 25 mg PO TID [facility] Last Admin: 05/05/18 10:00 Dose: Not Given Piperacillin Sod/Tazobactam (Sod 2.25 gm/ Sodium Chloride) 100 mls @ 200 mls/hr IV Q8H [facility]; Protocol Last Admin: 05/05/18 04:11 Dose: 200 mls/hr Vancomycin HCl 1 gm/ Sodium (Chloride) 250 mls @ 166.7 mls/hr IVPB MWF [facility]; Protocol Last Admin: 05/04/18 09:59 Dose: 166.7 mls/hr Insulin Human Regular (Novolin R) 0 unit SC ACHS [facility]; Protocol Last Admin: 05/05/18 11:30 Dose: Not Given Levothyroxine Sodium (Synthroid) 100 mcg PO DAILY@0630 [facility] Last Admin: 05/05/18 06:32 Dose: 100 mcg Metoprolol Succinate (Toprol Xl) 25 mg PO DAILY [facility] Last Admin: 05/04/18 09:51 Dose: 25 mg Prasugrel (Effient) 10 mg PO DAILY [facility] Last Admin: 05/01/18 09:37 Dose: 10 mg Prednisolone Acetate (Pred Forte 1% Opht Susp) 0 ml OU BID [facility] Last Admin: 05/05/18 10:00 Dose: Not Given Rosuvastatin Calcium (Crestor) 10 mg PO HS [facility] Last Admin: 05/04/18 21:57 Dose: 10 mg Saccharomyces Boulardii (Florastor) 250 mg PO BID [facility] Last Admin: 05/05/18 10:00 Dose: Not Given Sitagliptin Phosphate (Januvia) 25 mg PO DAILY [facility] Last Admin: 05/05/18 10:00 Dose: Not Given - Labs Labs: 05/05/18 07:58 05/05/18 07:58 PT 12.7 SECONDS (9.7-12.2) H 05/01/18 02:14 INR 1.2 05/01/18 02:14 APTT 32 SECONDS (21-34) 05/01/18 02:14 - Head Exam Head Exam: NORMAL INSPECTION - Eye Exam Eye Exam: Normal appearance - ENT Exam ENT Exam: Mucous Membranes Moist - Respiratory Exam Respiratory Exam: Decreased Breath Sounds - Cardiovascular Exam Cardiovascular Exam: REGULAR RHYTHM, +S1, +S2 - GI/Abdominal Exam GI & Abdominal Exam: Soft, Normal Bowel Sounds - Neurological Exam Neurological Exam: Alert, Oriented x3 Assessment and Plan (1) Acute CHF Status: Acute (2) ESRD (end stage renal disease) Status: Acute (3) Obstructive sleep apnea Status: Acute (4) COPD (chronic obstructive pulmonary disease) Status: Chronic (5) Pleural effusion Status: Acute - Assessment and Plan (Free Text) Plan: Bronchodilators O2 HD as per schedule [facility] [employer] Supportive care DVT/GI prophalaxis
--- NOTE | 2018-05-06 00:29 | CP.PCM.PN ---
Subjective - Date & Time of Evaluation Date of Evaluation: 05/06/18 Time of Evaluation: 04:30 - Subjective Subjective: PGY-1 Medicine Progress Note for Dr. Miguel Patient was seen and examined with family at bedside in no acute distress. Nurse reports no overnight events. She had no issues with HD yesterday using replaced Permacath. She has no new complaints. Denies chest pain, shortness of breath, abdominal pain, n/v/c/d. Objective - Vital Signs/Intake and Output Vital Signs (last 24 hours): Temp Pulse Resp BP Pulse Ox 99.3 F 88 20 138/63 97 05/05/18 15:00 05/05/18 16:28 05/05/18 15:00 05/05/18 15:00 05/05/18 15:00 Intake and Output: 05/05/18 05/06/18 18:59 06:59 Intake Total 250 Balance 250 - Medications Medications: Current Medications Acetaminophen (Tylenol 325mg Tab) 650 mg PO Q6 PRN PRN Reason: Pain, moderate (4-7) Last Admin: 05/04/18 19:21 Dose: 650 mg Albuterol/Ipratropium (Duoneb 3 Mg/0.5 Mg (3 Ml) Ud) 3 ml INH RQ4 [facility] Last Admin: 05/05/18 19:40 Dose: 3 ml Amlodipine Besylate (Norvasc) 10 mg PO DAILY [facility] Last Admin: 05/05/18 10:00 Dose: Not Given Benzonatate (Tessalon Perles) 100 mg PO TID [facility] Last Admin: 05/05/18 17:28 Dose: 100 mg Epoetin Brandon (Procrit) 10,000 unit IV TTS [facility] Last Admin: 05/05/18 12:41 Dose: 10,000 unit Fenofibrate (Tricor) 48 mg PO QPM [facility] Last Admin: 05/05/18 17:29 Dose: 48 mg Hydralazine HCl (Apresoline) 25 mg PO TID [facility] Last Admin: 05/05/18 17:29 Dose: 25 mg Piperacillin Sod/Tazobactam (Sod 2.25 gm/ Sodium Chloride) 100 mls @ 200 mls/hr IV Q8H [facility]; Protocol Last Admin: 05/05/18 20:18 Dose: 200 mls/hr Vancomycin HCl 1 gm/ Sodium (Chloride) 250 mls @ 166.7 mls/hr IVPB MWF [facility]; Protocol Last Admin: 05/04/18 09:59 Dose: 166.7 mls/hr Insulin Human Regular (Novolin R) 0 unit SC ACHS [facility]; Protocol Last Admin: 05/05/18 21:28 Dose: Not Given Levothyroxine Sodium (Synthroid) 100 mcg PO DAILY@0630 [facility] Last Admin: 05/05/18 06:32 Dose: 100 mcg Metoprolol Succinate (Toprol Xl) 25 mg PO DAILY [facility] Last Admin: 05/04/18 09:51 Dose: 25 mg Prasugrel (Effient) 10 mg PO DAILY [facility] Last Admin: 05/01/18 09:37 Dose: 10 mg Prednisolone Acetate (Pred Forte 1% Opht Susp) 0 ml OU BID [facility] Last Admin: 05/05/18 17:29 Dose: 1 drop Rosuvastatin Calcium (Crestor) 10 mg PO HS [facility] Last Admin: 05/05/18 21:21 Dose: 10 mg Saccharomyces Boulardii (Florastor) 250 mg PO BID [facility] Last Admin: 05/05/18 17:29 Dose: 250 mg Sitagliptin Phosphate (Januvia) 25 mg PO DAILY [facility] Last Admin: 05/05/18 10:00 Dose: Not Given - Labs Labs: 05/05/18 07:58 05/05/18 07:58 PT 12.7 SECONDS (9.7-12.2) H 05/01/18 02:14 INR 1.2 05/01/18 02:14 APTT 32 SECONDS (21-34) 05/01/18 02:14 - Constitutional Appears: Non-toxic, No Acute Distress - Head Exam Head Exam: ATRAUMATIC, NORMOCEPHALIC - Eye Exam Eye Exam: EOMI, Normal appearance - ENT Exam ENT Exam: Mucous Membranes Moist - Respiratory Exam Respiratory Exam: Decreased Breath Sounds. absent: Rales, Rhonchi, Wheezes Additional comments: NC on 3L O2 - Cardiovascular Exam Cardiovascular Exam: REGULAR RHYTHM, +S1, +S2. absent: Gallop, Rubs, Murmur Additional comments: Permacath in R chest, dressing c/d/i - GI/Abdominal Exam GI & Abdominal Exam: Soft, Normal Bowel Sounds. absent: Guarding, Tenderness - Extremities Exam Extremities Exam: Normal Capillary Refill Additional comments: peripheral pulses palpable bilaterally (radial, PT) IV access in R hand L arm restriction for AVF - Neurological Exam Neurological Exam: Alert, Awake, Oriented x3 - Psychiatric Exam Psychiatric exam: Normal Affect, Normal Mood - Skin Skin Exam: Normal Color, Warm Assessment and Plan - Assessment and Plan (Free Text) Assessment: 83yo female PMH ESRD on HD TTS, COPD, PVD , CHF with preserved EF, HTN, myelodyplastic syndrome, hypothyroidism and recent pneumonia who is admitted for HCAP with pleural effusions. Due to positive blood cultures, Permacath was replaced and AVF anticipated next week after bacteremia clears. Plan: Pleural effusions with exacerbation of CHF History of COPD - CXR (05/01): Interval patchy coalescent airspace opacities medial right lung base confluent areas of pulmonary venous congestion and pulmonary edema are favored. A concomitant patchy infiltrate-change here is not excluded. Interval subsegmental atelectasis with or without fissural fluid left mid lung zone. Asymmetrically elevated left hemidiaphragm with left basal compressive atelectasis and left inferolateral pleural effusion/thickening re-noted. Concomitant left subsegmental infiltrate here not excluded No definite interval change at the left lung base noted. - CT Chest (05/02): interval decrease in L pleural effusion and near complete resolution of R pleural effusion. residual multifocal atelectatsis in L lung and RLL, no evidence of pneumonia. mild cardiomegaly and small pericardial effusion. - Pulm consulted: Dr. Hernandez - help appreciated - ID consulted: Dr. Rodriguez - jhony appreciated - WBC 17.7 on admission - Mycoplasma neg, Flu A/B neg, Legionella neg - Blood Cx (05/01): gram positive cocci in clusters - 1/2 cultures growing Staph A and Coag neg Staph - taken separately from two diff sites - Nares MRSA screen (05/01) neg - Duonebs q4 [facility] - Vancomycin 1gm IVPB MWF from daily 05/04 (started 05/01) - Trough 05/04 7.0 - Zosyn 2.25gm IV q8 (started 05/01) - Tessalon Perles 100mg po tid - pulm toilet Blood Cultures Growing Staph Aureus/Coag Neg Staph - 1/2 cultures positive - Surgery consulted: Dr. Elian - help appreciated - Permacath replaced 05/04 as potential nidus for infection - CXR confirmed correct placement, OK for HD use - Per surgery, site did not appear infected in the OR - f/u Permacath tip Cx: no growth at 24 hrs ESRD on HD TTS - Nephro consulted: Dr. Langston - [facility] appreciated - HD restarted on TTS schedule - EPO started for persistent decreasing Hgb - Per surgery, L arm restrict for AVF creation after bacteremia clears. Patient to use Permacath until then. - renally dose medication Thrombocytopenia - Hx CMML, though platelet count has been decreasing - Plts 97 on admission -> 88 -> 78 -> 72 -> 67 - continue to hold Prasugrel - f/u HIT/NOMAN to r/o HIT - monitor with AM labs Anemia of Chronic Disease - H&H 7.4/22.5 on admission - Iron studies: Fe 78, TIBC 223, %sat 35, Ferritin 775.0 - transfused 2u PRBC with HD (05/01), Hb responded appropriately (7.0 -> 10.8) - monitor with AM labs - transfuse prn Diastolic CHF, chronic - BNP 6830 on admission - EKG: NSR@91 - elevate head of bed - Strict I&Os - Fluid restriction Hypertension - home Norvasc 10mg PO daily - home Metoprolol XL 25mg PO daily - Hydralazine 25mg po tid Hyperlipidemia - home Crestor 10mg PO HS - home Fenofibrate 48mg PO qPM Diabetes Mellitus - home Januvia 25mg PO daily - Accuchecks ACHS - ISS - hypoglycemia protocol Hypothyroidism - home Levothyroxine 100mcg PO daily History of myelodysplastic syndrome/leukemia - Heme/Onc consulted: Dr. Lopez Day - outpatient physician - help appreciated - WBC 17.7 on admission, INR 1.2 - home Prasugrel held 2/2 thrombocytopenia PPX: - DVT: home Prasugrel held for increased bleed risk from thrombocytopenia, SCDs - GI: Florastor 250mg PO BID - Diet: Heart healthy diet, 2g Na - Palliative Care consult for goals of care discussion as this is her third hospitalization in as many months - Tylenol 650mg po q6 prn for headache/pain Dispo: SW referral for d/c. PT eval for d/c. Patient needs to have chair back at HD before discharge.
[2018-05-06] MEDS: Albuterol-Ipratrop 3 mg / 0.5 (3 ml) UD INH SCH ×6 (00:34→20:00)
[2018-05-06] MEDS: Piperacillin/Tazobact 2.25 GM in Sodium Chloride 100 ML IV SCH ×3 (03:06→22:01)
[2018-05-06] MEDS: Levothyroxine 100 MCG TAB PO SCH (05:44)
[2018-05-06] MEDS: (Novolin R) Insulin Human Regular 100 units/ml vial SC SCH ×4 (08:23→23:35)
[2018-05-06 08:26] LABS: BASO % 0.2 % (0.0-2.0); EOS # 0.3 K/uL (0.0-0.7); EOS % 1.2 % (0.0-4.0); HEMOGLOBIN 10.3 g/dL (11.0-16.0); LYMPH # 3.9 K/uL (1.0-4.3); LYMPH % 16.7 % (20.0-40.0); MEAN CELL VOLUME 91.7 fL (81.0-99.0); MEAN CORPUSCULAR HEMOGLOBIN 30.2 pg (27.0-31.0); MEAN CORPUSCULAR HGB CONC 32.9 g/dL (33.0-37.0); MEAN PLATELET VOLUME 9.5 fL (7.2-11.7); MONO # 7.3 K/uL (0.0-0.8); MONO % 31.6 % (0.0-10.0); NEUT # 11.7 K/uL (1.8-7.0); NEUT % 50.3 % (50.0-75.0); NRBC % 0.3 % (0.0-2.0); PLATELET COUNT 63 K/uL (130-400); RBC 3.42 Mil/uL (3.80-5.20); RED CELL DISTRIBUTION WIDTH 18.9 % (11.5-14.5); WHITE BLOOD COUNT 23.2 K/uL (4.8-10.8)
[2018-05-06 08:55] LABS: ALB/GLOB RATIO 0.7 (1.0-2.1); ALBUMIN 3.7 g/dL (3.5-5.0); CALCIUM 8.6 mg/dl (8.6-10.4)
[2018-05-06] MEDS: Metoprolol Succinate 25 mg XL Tab PO SCH (09:36)
[2018-05-06] MEDS: PrednisoLONE 1% Opht Susp(5 ml) OU SCH ×2 (09:37→19:22)
[2018-05-06] MEDS: Saccharomyces Boulardi 250 mg Cap PO SCH ×2 (09:42→19:23)
[2018-05-06 10:14] LABS: ANISOCYTOSIS SLIGHT; EOSINOPHIL 1 % (0-4); LYMPHOCYTE 21 % (20-40); MONOCYTE 29 % (0-10); NEUTROPHIL 49 % (50-75); PLATELET ESTIMATE DECREASED (NORMAL); POIKILOCYTOSIS SLIGHT; TOTAL CELLS COUNTED 100
[2018-05-06 10:15] LABS: MICROCYTOSIS SLIGHT
[2018-05-06 10:16] LABS: OVALOCYTES SLIGHT; POLYCHROMIC SLIGHT
--- NOTE | 2018-05-06 14:34 | CP.PCM.PN ---
Subjective - Date & Time of Evaluation Date of Evaluation: 05/06/18 Time of Evaluation: 09:00 - Subjective Subjective: awake alert c/o cough no fever Objective - Vital Signs/Intake and Output Vital Signs (last 24 hours): Temp Pulse Resp BP Pulse Ox 98.0 F 97 H 18 159/72 H 98 05/06/18 07:00 05/06/18 14:10 05/06/18 14:10 05/06/18 14:10 05/06/18 07:00 Intake and Output: 05/06/18 05/06/18 06:59 18:59 Intake Total 400 Balance 400 - Medications Medications: Current Medications Acetaminophen (Tylenol 325mg Tab) 650 mg PO Q6 PRN PRN Reason: Pain, moderate (4-7) Last Admin: 05/04/18 19:21 Dose: 650 mg Albuterol/Ipratropium (Duoneb 3 Mg/0.5 Mg (3 Ml) Ud) 3 ml INH RQ4 [facility] Last Admin: 05/06/18 08:47 Dose: 3 ml Amlodipine Besylate (Norvasc) 10 mg PO DAILY [facility] Last Admin: 05/06/18 09:36 Dose: 10 mg Benzonatate (Tessalon Perles) 100 mg PO TID [facility] Last Admin: 05/06/18 14:11 Dose: 100 mg Epoetin Brandon (Procrit) 10,000 unit IV TTS [facility] Last Admin: 05/05/18 12:41 Dose: 10,000 unit Fenofibrate (Tricor) 48 mg PO QPM [facility] Last Admin: 05/05/18 17:29 Dose: 48 mg Fluticasone/Vilanterol (Breo Ellipta 100-25 Mcg Inh) 1 puff INH RQD [facility] Hydralazine HCl (Apresoline) 25 mg PO TID [facility] Last Admin: 05/06/18 14:11 Dose: 25 mg Piperacillin Sod/Tazobactam (Sod 2.25 gm/ Sodium Chloride) 100 mls @ 200 mls/hr IV Q8H [facility]; Protocol Last Admin: 05/06/18 12:10 Dose: 200 mls/hr Vancomycin HCl 1 gm/ Sodium (Chloride) 250 mls @ 166.7 mls/hr IVPB MWF [facility]; Protocol Last Admin: 05/04/18 09:59 Dose: 166.7 mls/hr Insulin Human Regular (Novolin R) 0 unit SC ACHS [facility]; Protocol Last Admin: 05/06/18 12:09 Dose: 3 unit Levothyroxine Sodium (Synthroid) 100 mcg PO DAILY@0630 [facility] Last Admin: 05/06/18 05:44 Dose: 100 mcg Metoprolol Succinate (Toprol Xl) 25 mg PO DAILY [facility] Last Admin: 05/06/18 09:36 Dose: 25 mg Prasugrel (Effient) 10 mg PO DAILY [facility] Last Admin: 05/01/18 09:37 Dose: 10 mg Prednisolone Acetate (Pred Forte 1% Opht Susp) 0 ml OU BID [facility] Last Admin: 05/06/18 09:37 Dose: 1 drop Rosuvastatin Calcium (Crestor) 10 mg PO HS [facility] Last Admin: 05/05/18 21:21 Dose: 10 mg Saccharomyces Boulardii (Florastor) 250 mg PO BID [facility] Last Admin: 05/06/18 09:42 Dose: 250 mg Sitagliptin Phosphate (Januvia) 25 mg PO DAILY [facility] Last Admin: 05/06/18 09:36 Dose: 25 mg - Labs Labs: 05/06/18 08:09 05/06/18 08:09 PT 12.7 SECONDS (9.7-12.2) H 05/01/18 02:14 INR 1.2 05/01/18 02:14 APTT 32 SECONDS (21-34) 05/01/18 02:14 - Constitutional Appears: Non-toxic, Chronically Ill - Head Exam Head Exam: NORMOCEPHALIC - Eye Exam Eye Exam: absent: Scleral icterus - ENT Exam ENT Exam: Mucous Membranes Dry - Neck Exam Neck Exam: absent: Lymphadenopathy - Respiratory Exam Respiratory Exam: Decreased Breath Sounds, Prolonged Expiratory Phase, Rhonchi - Cardiovascular Exam Cardiovascular Exam: REGULAR RHYTHM, +S1, +S2 - GI/Abdominal Exam GI & Abdominal Exam: Distended, Soft - Rectal Exam Rectal Exam: Deferred - Exam Exam: NORMAL INSPECTION - Extremities Exam Extremities Exam: absent: Pedal Edema - Back Exam Back Exam: absent: CVA tenderness (L), CVA tenderness (R) - Neurological Exam Neurological Exam: Alert, Awake Assessment and Plan (1) Acute CHF Status: Acute (2) ESRD (end stage renal disease) Status: Acute (3) Pneumonia Status: Acute - Assessment and Plan (Free Text) Assessment: 83 yo female with hx of DM, HTN, HLD, PVD, ESRD on HD TTS, COPD, hypothyroidism, CHF with preserved EF, anemia, pneumonia, CMML was admitted for possible pneumonia and had HD catheter changed by Dr Plummer despite antibiotics her WBC is increasing Plan: she is currently on vanco and zosyn for possible pneumonia no recent positive cultures and no diarrhea joe need to d/c antibiotics and recultures and CXR
--- NOTE | 2018-05-06 15:30 | CP.PCM.PN ---
Subjective - Date & Time of Evaluation Date of Evaluation: 05/06/18 Time of Evaluation: 15:30 Objective - Vital Signs/Intake and Output Vital Signs (last 24 hours): Temp Pulse Resp BP Pulse Ox 98.0 F 97 H 18 159/72 H 98 05/06/18 07:00 05/06/18 14:10 05/06/18 14:10 05/06/18 14:10 05/06/18 07:00 Intake and Output: 05/06/18 05/06/18 06:59 18:59 Intake Total 400 Balance 400 - Medications Medications: Current Medications Acetaminophen (Tylenol 325mg Tab) 650 mg PO Q6 PRN PRN Reason: Pain, moderate (4-7) Last Admin: 05/04/18 19:21 Dose: 650 mg Albuterol/Ipratropium (Duoneb 3 Mg/0.5 Mg (3 Ml) Ud) 3 ml INH RQ4 [facility] Last Admin: 05/06/18 08:47 Dose: 3 ml Amlodipine Besylate (Norvasc) 10 mg PO DAILY [facility] Last Admin: 05/06/18 09:36 Dose: 10 mg Benzonatate (Tessalon Perles) 100 mg PO TID [facility] Last Admin: 05/06/18 14:11 Dose: 100 mg Epoetin Brandon (Procrit) 10,000 unit IV TTS [facility] Last Admin: 05/05/18 12:41 Dose: 10,000 unit Fenofibrate (Tricor) 48 mg PO QPM [facility] Last Admin: 05/05/18 17:29 Dose: 48 mg Fluticasone/Vilanterol (Breo Ellipta 100-25 Mcg Inh) 1 puff INH RQD [facility] Hydralazine HCl (Apresoline) 25 mg PO TID [facility] Last Admin: 05/06/18 14:11 Dose: 25 mg Piperacillin Sod/Tazobactam (Sod 2.25 gm/ Sodium Chloride) 100 mls @ 200 mls/hr IV Q8H [facility]; Protocol Last Admin: 05/06/18 12:10 Dose: 200 mls/hr Vancomycin HCl 1 gm/ Sodium (Chloride) 250 mls @ 166.7 mls/hr IVPB MWF [facility]; Protocol Last Admin: 05/04/18 09:59 Dose: 166.7 mls/hr Insulin Human Regular (Novolin R) 0 unit SC ACHS [facility]; Protocol Last Admin: 05/06/18 12:09 Dose: 3 unit Levothyroxine Sodium (Synthroid) 100 mcg PO DAILY@0630 [facility] Last Admin: 05/06/18 05:44 Dose: 100 mcg Metoprolol Succinate (Toprol Xl) 25 mg PO DAILY [facility] Last Admin: 05/06/18 09:36 Dose: 25 mg Prasugrel (Effient) 10 mg PO DAILY [facility] Last Admin: 05/01/18 09:37 Dose: 10 mg Prednisolone Acetate (Pred Forte 1% Opht Susp) 0 ml OU BID [facility] Last Admin: 05/06/18 09:37 Dose: 1 drop Rosuvastatin Calcium (Crestor) 10 mg PO HS [facility] Last Admin: 05/05/18 21:21 Dose: 10 mg Saccharomyces Boulardii (Florastor) 250 mg PO BID [facility] Last Admin: 05/06/18 09:42 Dose: 250 mg Sitagliptin Phosphate (Januvia) 25 mg PO DAILY [facility] Last Admin: 05/06/18 09:36 Dose: 25 mg - Labs Labs: 05/06/18 08:09 05/06/18 08:09 PT 12.7 SECONDS (9.7-12.2) H 05/01/18 02:14 INR 1.2 05/01/18 02:14 APTT 32 SECONDS (21-34) 05/01/18 02:14 Assessment and Plan (1) Acute CHF Status: Acute (2) ESRD (end stage renal disease) Status: Acute (3) Obstructive sleep apnea Status: Acute (4) COPD (chronic obstructive pulmonary disease) Status: Chronic (5) Pleural effusion Status: Acute
[2018-05-07] MEDS: Albuterol-Ipratrop 3 mg / 0.5 (3 ml) UD INH SCH ×6 (00:47→19:58)
[2018-05-07] MEDS: Piperacillin/Tazobact 2.25 GM in Sodium Chloride 100 ML IV SCH (05:48)
[2018-05-07] MEDS ORDERED: Bacitracin 500 Units/gm Oint Foilpak UD TOP ONE (06:15)
[2018-05-07] MEDS: Levothyroxine 100 MCG TAB PO SCH (06:43)
[2018-05-07 07:48] LABS: BASO # 0.1 K/uL (0.0-0.2); BASO % 0.3 % (0.0-2.0); EOS # 0.3 K/uL (0.0-0.7); EOS % 1.3 % (0.0-4.0); HEMOGLOBIN 9.5 g/dL (11.0-16.0); LYMPH # 3.7 K/uL (1.0-4.3); LYMPH % 15.6 % (20.0-40.0); MEAN CELL VOLUME 92.9 fL (81.0-99.0); MEAN CORPUSCULAR HEMOGLOBIN 30.3 pg (27.0-31.0); MEAN CORPUSCULAR HGB CONC 32.6 g/dL (33.0-37.0); MEAN PLATELET VOLUME 9.6 fL (7.2-11.7); MONO # 7.6 K/uL (0.0-0.8); MONO % 32.1 % (0.0-10.0); NEUT % 50.7 % (50.0-75.0); NRBC % 0.2 % (0.0-2.0); PLATELET COUNT 75 K/uL (130-400); RBC 3.13 Mil/uL (3.80-5.20); RED CELL DISTRIBUTION WIDTH 19.4 % (11.5-14.5); WHITE BLOOD COUNT 23.6 K/uL (4.8-10.8)
[2018-05-07] MEDS: (Novolin R) Insulin Human Regular 100 units/ml vial SC SCH ×4 (07:53→22:00)
[2018-05-07 08:04] LABS: ALB/GLOB RATIO 0.8 (1.0-2.1); ALBUMIN 3.5 g/dL (3.5-5.0)
[2018-05-07] MEDS: Fluticasone-Vilanterol 100/25mcg Diskus INH SCH (08:05)
[2018-05-07 08:11] LABS: CALCIUM 8.3 mg/dl (8.6-10.4)
--- NOTE | 2018-05-07 09:08 | RAD ---
Date of service: 05/07/2018 HISTORY: pneumonia COMPARISON: 05/04/2016 FINDINGS: LUNGS: Left retrocardiac opacity consistent with lower lobe atelectasis as demonstrated on CT examination of 05/02. Rule out pneumonia. No other abnormal opacity elsewhere. PLEURA: Small left pleural effusion. No right pleural effusion. No pneumothorax. CARDIOVASCULAR: No aortic atherosclerotic calcification present. Normal cardiac size. Right tunneled central venous dialysis catheter. No congestive change. OSSEOUS STRUCTURES: No significant abnormalities. VISUALIZED UPPER ABDOMEN: Normal. OTHER FINDINGS: None. IMPRESSION: Left lower lobe opacity. Rule out pneumonia. Small left pleural effusion. Otherwise no change.
[2018-05-07 09:43] LABS: EOSINOPHIL 2 % (0-4); LYMPHOCYTE 18 % (20-40); MONOCYTE 30 % (0-10); NEUTROPHIL 50 % (50-75); PLATELET ESTIMATE DECREASED (NORMAL); TOTAL CELLS COUNTED 100
[2018-05-07 09:44] LABS: ANISOCYTOSIS SLIGHT; HYPOCHROMIC SLIGHT; POIKILOCYTOSIS SLIGHT; TARGET CELLS SLIGHT
[2018-05-07 09:45] LABS: BURR CELLS SLIGHT; OVALOCYTES SLIGHT; POLYCHROMIC SLIGHT
[2018-05-07 09:46] LABS: LARGE PLATELETS PRESENT
[2018-05-07] MEDS: Saccharomyces Boulardi 250 mg Cap PO SCH ×2 (10:05→17:39)
[2018-05-07] MEDS: Metoprolol Succinate 25 mg XL Tab PO SCH (10:05)
[2018-05-07] MEDS: PrednisoLONE 1% Opht Susp(5 ml) OU SCH ×2 (10:05→17:41)
--- NOTE | 2018-05-07 11:30 | RAD ---
Date of service: 05/04/2018 PROCEDURE: Fluoroscopy up to 1 hr. HISTORY: RENAL FAILURE COMPARISON: None TECHNIQUE: Standard protocol for this study/examination. FINDINGS: Total fluoroscopic time (continuous mode) utilized during the procedure 13.3 seconds. IMPRESSION: Total exam DLP: 1.77 (mGy).
--- NOTE | 2018-05-07 12:07 | CP.PCM.PN ---
Subjective - Date & Time of Evaluation Date of Evaluation: 05/07/18 Time of Evaluation: 12:04 - Subjective Subjective: alert, less dyspneic overall CXR with same LLL opacity has been afebrile dialysis stable 05/05 repeat C+S negative so far Objective - Vital Signs/Intake and Output Vital Signs (last 24 hours): Temp Pulse Resp BP Pulse Ox 98.5 F 90 20 124/53 L 96 05/07/18 08:54 05/07/18 08:54 05/07/18 08:54 05/07/18 08:54 05/07/18 08:54 - Medications Medications: Current Medications Acetaminophen (Tylenol 325mg Tab) 650 mg PO Q6 PRN PRN Reason: Pain, moderate (4-7) Last Admin: 05/04/18 19:21 Dose: 650 mg Albuterol/Ipratropium (Duoneb 3 Mg/0.5 Mg (3 Ml) Ud) 3 ml INH RQ4 [facility] Last Admin: 05/07/18 08:05 Dose: 3 ml Amlodipine Besylate (Norvasc) 10 mg PO DAILY [facility] Last Admin: 05/07/18 10:05 Dose: 10 mg Benzonatate (Tessalon Perles) 100 mg PO TID [facility] Last Admin: 05/07/18 10:05 Dose: 100 mg Epoetin Brandon (Procrit) 10,000 unit IV TTS [facility] Last Admin: 05/05/18 12:41 Dose: 10,000 unit Fenofibrate (Tricor) 48 mg PO QPM [facility] Last Admin: 05/06/18 19:22 Dose: 48 mg Fluticasone/Vilanterol (Breo Ellipta 100-25 Mcg Inh) 1 puff INH RQD [facility] Last Admin: 05/07/18 08:05 Dose: 1 puff Hydralazine HCl (Apresoline) 25 mg PO TID [facility] Last Admin: 05/07/18 10:05 Dose: 25 mg Piperacillin Sod/Tazobactam (Sod 2.25 gm/ Sodium Chloride) 100 mls @ 200 mls/hr IV Q8H [facility]; Protocol Last Admin: 05/07/18 05:48 Dose: 200 mls/hr Vancomycin HCl 1 gm/ Sodium (Chloride) 250 mls @ 166.7 mls/hr IVPB MWF [facility]; Protocol Last Admin: 05/07/18 08:30 Dose: 166.7 mls/hr Insulin Human Regular (Novolin R) 0 unit SC ACHS [facility]; Protocol Last Admin: 05/07/18 07:53 Dose: Not Given Levothyroxine Sodium (Synthroid) 100 mcg PO DAILY@0630 [facility] Last Admin: 05/07/18 06:43 Dose: 100 mcg Metoprolol Succinate (Toprol Xl) 25 mg PO DAILY [facility] Last Admin: 05/07/18 10:05 Dose: 25 mg Prasugrel (Effient) 10 mg PO DAILY [facility] Last Admin: 05/01/18 09:37 Dose: 10 mg Prednisolone Acetate (Pred Forte 1% Opht Susp) 0 ml OU BID [facility] Last Admin: 05/07/18 10:05 Dose: 1 drop Rosuvastatin Calcium (Crestor) 10 mg PO HS [facility] Last Admin: 05/06/18 22:01 Dose: 10 mg Saccharomyces Boulardii (Florastor) 250 mg PO BID [facility] Last Admin: 05/07/18 10:05 Dose: 250 mg Sitagliptin Phosphate (Januvia) 25 mg PO DAILY [facility] Last Admin: 05/07/18 10:05 Dose: 25 mg - Labs Labs: 05/07/18 07:30 05/07/18 07:30 PT 12.7 SECONDS (9.7-12.2) H 05/01/18 02:14 INR 1.2 05/01/18 02:14 APTT 32 SECONDS (21-34) 05/01/18 02:14 - Constitutional Appears: No Acute Distress, Chronically Ill - Head Exam Head Exam: ATRAUMATIC, NORMAL INSPECTION - Eye Exam Eye Exam: EOMI, Normal appearance - Neck Exam Neck Exam: Normal Inspection. absent: Tenderness - Respiratory Exam Respiratory Exam: Rhonchi, NORMAL BREATHING PATTERN - Cardiovascular Exam Cardiovascular Exam: REGULAR RHYTHM, +S1 - GI/Abdominal Exam GI & Abdominal Exam: Soft. absent: Tenderness - Extremities Exam Extremities Exam: Normal Inspection. absent: Tenderness - Neurological Exam Neurological Exam: Awake, CN II-XII Intact - Skin Skin Exam: Dry, Warm Assessment and Plan (1) ESRD (end stage renal disease) Status: Acute (2) CHF (congestive heart failure) Status: Acute (3) CMML (chronic myelomonocytic leukemia) Status: Acute (4) Chronic anemia Status: Acute (5) Leukocytosis Status: Acute (6) Pleural effusion Status: Acute - Assessment and Plan (Free Text) Plan: IV ABs and repeat cultures as per ID dialysis in AM, TTS eventual AV access same other meds
--- NOTE | 2018-05-07 13:41 | CP.PCM.PN ---
Subjective - Date & Time of Evaluation Date of Evaluation: 05/07/18 Time of Evaluation: 13:42 - Subjective Subjective: PGY-[address] Miguel Patient seen and examined at bedside. In good spirits, wearing Lisa hat. No acute events overnight. Patient reports improvement of symptoms, shortness of breath has resolved to baseline. Patient denies chest pain, nausea, vomiting, headache, dizziness. Objective - Vital Signs/Intake and Output Vital Signs (last 24 hours): Temp Pulse Resp BP Pulse Ox 98.5 F 90 20 124/53 L 96 05/07/18 08:54 05/07/18 08:54 05/07/18 08:54 05/07/18 08:54 05/07/18 08:54 - Medications Medications: Current Medications Acetaminophen (Tylenol 325mg Tab) 650 mg PO Q6 PRN PRN Reason: Pain, moderate (4-7) Last Admin: 05/04/18 19:21 Dose: 650 mg Albuterol/Ipratropium (Duoneb 3 Mg/0.5 Mg (3 Ml) Ud) 3 ml INH RQ4 [facility] Last Admin: 05/07/18 08:05 Dose: 3 ml Amlodipine Besylate (Norvasc) 10 mg PO DAILY [facility] Last Admin: 05/07/18 10:05 Dose: 10 mg Benzonatate (Tessalon Perles) 100 mg PO TID [facility] Last Admin: 05/07/18 10:05 Dose: 100 mg Epoetin Brandon (Procrit) 10,000 unit IV TTS [facility] Last Admin: 05/05/18 12:41 Dose: 10,000 unit Fenofibrate (Tricor) 48 mg PO QPM [facility] Last Admin: 05/06/18 19:22 Dose: 48 mg Fluticasone/Vilanterol (Breo Ellipta 100-25 Mcg Inh) 1 puff INH RQD [facility] Last Admin: 05/07/18 08:05 Dose: 1 puff Hydralazine HCl (Apresoline) 25 mg PO TID [facility] Last Admin: 05/07/18 10:05 Dose: 25 mg Piperacillin Sod/Tazobactam (Sod 2.25 gm/ Sodium Chloride) 100 mls @ 200 mls/hr IV Q8H [facility]; Protocol Last Admin: 05/07/18 05:48 Dose: 200 mls/hr Vancomycin HCl 1 gm/ Sodium (Chloride) 250 mls @ 166.7 mls/hr IVPB MWF [facility]; Protocol Last Admin: 05/07/18 08:30 Dose: 166.7 mls/hr Insulin Human Regular (Novolin R) 0 unit SC ACHS [facility]; Protocol Last Admin: 05/07/18 12:07 Dose: 4 unit Levothyroxine Sodium (Synthroid) 100 mcg PO DAILY@0630 [facility] Last Admin: 05/07/18 06:43 Dose: 100 mcg Metoprolol Succinate (Toprol Xl) 25 mg PO DAILY [facility] Last Admin: 05/07/18 10:05 Dose: 25 mg Prasugrel (Effient) 10 mg PO DAILY [facility] Last Admin: 05/01/18 09:37 Dose: 10 mg Prednisolone Acetate (Pred Forte 1% Opht Susp) 0 ml OU BID [facility] Last Admin: 05/07/18 10:05 Dose: 1 drop Rosuvastatin Calcium (Crestor) 10 mg PO [facility] Last Admin: 05/06/18 22:01 Dose: 10 mg Saccharomyces Boulardii (Florastor) 250 mg PO BID [facility] Last Admin: 05/07/18 10:05 Dose: 250 mg Sitagliptin Phosphate (Januvia) 25 mg PO DAILY [facility] Last Admin: 05/07/18 10:05 Dose: 25 mg - Labs Labs: 05/07/18 07:30 05/07/18 07:30 PT 12.7 SECONDS (9.7-12.2) H 05/01/18 02:14 INR 1.2 05/01/18 02:14 APTT 32 SECONDS (21-34) 05/01/18 02:14 - Head Exam Head Exam: ATRAUMATIC, NORMAL INSPECTION - Eye Exam Eye Exam: EOMI, Normal appearance - ENT Exam ENT Exam: Mucous Membranes Moist - Respiratory Exam Respiratory Exam: Clear to Ausculation Bilateral, NORMAL BREATHING PATTERN. absent: Rhonchi, Wheezes - Cardiovascular Exam Cardiovascular Exam: REGULAR RHYTHM, +S1, +S2 - GI/Abdominal Exam GI & Abdominal Exam: Soft, Normal Bowel Sounds. absent: Tenderness - Extremities Exam Extremities Exam: absent: Pedal Edema, Tenderness - Neurological Exam Neurological Exam: Alert, Awake, Oriented x3 - Psychiatric Exam Psychiatric exam: Normal Affect, Normal Mood - Skin Skin Exam: Dry, Intact, Normal Color, Warm Assessment and Plan - Assessment and Plan (Free Text) Assessment: 83yo female PMH ESRD on HD TTS, COPD, PVD , CHF with preserved EF, HTN, myelodyplastic syndrome, hypothyroidism and recent pneumonia who is admitted for HCAP with pleural effusions. Due to positive blood cultures, Permacath was replaced and AVF anticipated next week after bacteremia clears. Most recent blood cultures negative, but WBCs continue to rise. Repeating blood cx. Plan: Pleural effusions with exacerbation of CHF History of COPD - CXR (05/01): Interval patchy coalescent airspace opacities medial right lung base confluent areas of pulmonary venous congestion and pulmonary edema are favored. A concomitant patchy infiltrate-change here is not excluded. Interval subsegmental atelectasis with or without fissural fluid left mid lung zone. Asymmetrically elevated left hemidiaphragm with left basal compressive atelectasis and left inferolateral pleural effusion/thickening re-noted. Concomitant left subsegmental infiltrate here not excluded No definite interval change at the left lung base noted. - CT Chest (05/02): interval decrease in L pleural effusion and near complete resolution of R pleural effusion. residual multifocal atelectatsis in L lung and RLL, no evidence of pneumonia. mild cardiomegaly and small pericardial effusion. - CXR (05/07): Left lower lobe opacity. Rule out pneumonia. Small left pleural effusion. Otherwise no change. - CXR does appear much improved from prior film - Pulm consulted: Dr. Hernandez - help appreciated - ID consulted: Dr. Rodriguez - help appreciated - WBC 17.7 on admission --> 23.6 05/07 - Mycoplasma neg, Flu A/B neg, Legionella neg - Blood Cx (05/01): gram positive cocci in clusters - 1/2 cultures growing Staph A and Coag neg Staph - taken separately from two diff sites - Blood Cx 05/04 negative at 72 hours. Repeating cultures. - Nares MRSA screen (05/01) neg - Duonebs q4 [facility] - Vancomycin 1gm IVPB MWF from daily 05/04 (started 05/01) - Trough 05/04 7.0 - Zosyn 2.25gm IV q8 (started 05/01) - Tessalon Perles 100mg po tid - pulm toilet Blood Cultures Growing Staph Aureus/Coag Neg Staph - 1/2 cultures positive - Surgery consulted: Dr. Plummer - help appreciated - Permacath replaced 05/04 as potential nidus for infection - CXR confirmed correct placement, OK for HD use - Per surgery, site did not appear infected in the OR - Repeat cultures 05/04 showing no growth x72 hours, though WBC count continues to rise. Repeating cultures and pro-silva. - -Patient not on oral steroids, but consider due to inhaled steroid in [place]- elipta ESRD on HD TTS - Nephro consulted: Dr. Langston - recs appreciated - HD restarted on TTS schedule - EPO started for persistent decreasing Hgb - Per surgery, L arm restrict for AVF creation after bacteremia clears. Patient to use Permacath until then. - renally dose medication Thrombocytopenia - Hx CMML, platelets had been decreasing, but increased to 75 today - Plts 97 on admission -> 88 -> 78 -> 72 -> 67 --> 75 - continue to hold Prasugrel - f/u HIT/NOMAN to r/o HIT - monitor with AM labs Anemia of Chronic Disease - H&H 7.4/22.5 on admission - Iron studies: Fe 78, TIBC 223, %sat 35, Ferritin 775.0 - transfused 2u PRBC with HD (05/01), Hb responded appropriately (7.0 -> 10.8) - monitor with AM labs - transfuse prn Diastolic CHF, chronic - BNP 6830 on admission - EKG: NSR@91 - elevate head of bed - Strict I&Os - Fluid restriction Hypertension - home Norvasc 10mg PO daily - home Metoprolol XL 25mg PO daily - Hydralazine 25mg po tid Hyperlipidemia - home Crestor 10mg PO HS - home Fenofibrate 48mg PO qPM Diabetes Mellitus - home Januvia 25mg PO daily - [place] ACHS - ISS - hypoglycemia protocol Hypothyroidism - home Levothyroxine 100mcg PO daily History of myelodysplastic syndrome/leukemia - Heme/Onc consulted: Dr. Lopez Day - outpatient physician - help appreciated - WBC 17.7 on admission, INR 1.2. WBC 23.6 today - home Prasugrel held 2/2 thrombocytopenia PPX: - DVT: home Prasugrel held for increased bleed risk from thrombocytopenia, SCDs - GI: Florastor 250mg PO BID - Diet: Heart healthy diet, 2g Na - Palliative Care consult for goals of care discussion as this is her third hospitalization in as many months - Tylenol 650mg po q6 prn for headache/pain Dispo: SW referral for d/c. PT roge for d/c. Patient needs to have chair back at HD before discharge. Assessment and Plan d/w Dr. Myriam Al, PGY-1
--- NOTE | 2018-05-07 13:46 | CP.PCM.PN ---
Subjective - Date & Time of Evaluation Date of Evaluation: 05/07/18 Time of Evaluation: 13:45 Objective - Vital Signs/Intake and Output Vital Signs (last 24 hours): Temp Pulse Resp BP Pulse Ox 98.5 F 90 20 124/53 L 96 05/07/18 08:54 05/07/18 08:54 05/07/18 08:54 05/07/18 08:54 05/07/18 08:54 - Medications Medications: Current Medications Acetaminophen (Tylenol 325mg Tab) 650 mg PO Q6 PRN PRN Reason: Pain, moderate (4-7) Last Admin: 05/04/18 19:21 Dose: 650 mg Albuterol/Ipratropium (Duoneb 3 Mg/0.5 Mg (3 Ml) Ud) 3 ml INH RQ4 [facility] Last Admin: 05/07/18 11:40 Dose: 3 ml Amlodipine Besylate (Norvasc) 10 mg PO DAILY [facility] Last Admin: 05/07/18 10:05 Dose: 10 mg Benzonatate (Tessalon Perles) 100 mg PO TID [facility] Last Admin: 05/07/18 10:05 Dose: 100 mg Epoetin Brandon (Procrit) 10,000 unit IV TTS [facility] Last Admin: 05/05/18 12:41 Dose: 10,000 unit Fenofibrate (Tricor) 48 mg PO QPM [facility] Last Admin: 05/06/18 19:22 Dose: 48 mg Fluticasone/Vilanterol (Breo Ellipta 100-25 Mcg Inh) 1 puff INH RQD [facility] Last Admin: 05/07/18 08:05 Dose: 1 puff Hydralazine HCl (Apresoline) 25 mg PO TID [facility] Last Admin: 05/07/18 10:05 Dose: 25 mg Piperacillin Sod/Tazobactam (Sod 2.25 gm/ Sodium Chloride) 100 mls @ 200 mls/hr IV Q8H [facility]; Protocol Last Admin: 05/07/18 05:48 Dose: 200 mls/hr Vancomycin HCl 1 gm/ Sodium (Chloride) 250 mls @ 166.7 mls/hr IVPB MWF [facility]; Protocol Last Admin: 05/07/18 08:30 Dose: 166.7 mls/hr Insulin Human Regular (Novolin R) 0 unit SC ACHS [facility]; Protocol Last Admin: 05/07/18 12:07 Dose: 4 unit Levothyroxine Sodium (Synthroid) 100 mcg PO DAILY@0630 [facility] Last Admin: 05/07/18 06:43 Dose: 100 mcg Metoprolol Succinate (Toprol Xl) 25 mg PO DAILY [facility] Last Admin: 05/07/18 10:05 Dose: 25 mg Prasugrel (Effient) 10 mg PO DAILY [facility] Last Admin: 05/01/18 09:37 Dose: 10 mg Prednisolone Acetate (Pred Forte 1% Opht Susp) 0 ml OU BID [facility] Last Admin: 05/07/18 10:05 Dose: 1 drop Rosuvastatin Calcium (Crestor) 10 mg PO HS [facility] Last Admin: 05/06/18 22:01 Dose: 10 mg Saccharomyces Boulardii (Florastor) 250 mg PO BID [facility] Last Admin: 05/07/18 10:05 Dose: 250 mg Sitagliptin Phosphate (Januvia) 25 mg PO DAILY [facility] Last Admin: 05/07/18 10:05 Dose: 25 mg - Labs Labs: 05/07/18 07:30 05/07/18 07:30 PT 12.7 SECONDS (9.7-12.2) H 05/01/18 02:14 INR 1.2 05/01/18 02:14 APTT 32 SECONDS (21-34) 05/01/18 02:14 Assessment and Plan (1) Acute CHF Status: Acute (2) ESRD (end stage renal disease) Status: Acute (3) Obstructive sleep apnea Status: Acute (4) COPD (chronic obstructive pulmonary disease) Status: Chronic (5) Pleural effusion Status: Acute
[2018-05-08] MEDS: Albuterol-Ipratrop 3 mg / 0.5 (3 ml) UD INH SCH ×6 (00:30→19:53)
[2018-05-08] MEDS: Levothyroxine 100 MCG TAB PO SCH (05:51)
[2018-05-08] MEDS: (Novolin R) Insulin Human Regular 100 units/ml vial SC SCH ×4 (07:50→22:16)
[2018-05-08 07:51] LABS: BASO # 0.1 K/uL (0.0-0.2); BASO % 0.3 % (0.0-2.0); EOS # 0.3 K/uL (0.0-0.7); EOS % 1.2 % (0.0-4.0); HEMOGLOBIN 9.6 g/dL (11.0-16.0); LYMPH # 3.5 K/uL (1.0-4.3); LYMPH % 13.3 % (20.0-40.0); MEAN CELL VOLUME 92.3 fL (81.0-99.0); MEAN CORPUSCULAR HEMOGLOBIN 30.2 pg (27.0-31.0); MEAN CORPUSCULAR HGB CONC 32.7 g/dL (33.0-37.0); MEAN PLATELET VOLUME 9.9 fL (7.2-11.7); MONO # 8.5 K/uL (0.0-0.8); MONO % 32.4 % (0.0-10.0); NEUT # 13.9 K/uL (1.8-7.0); NEUT % 52.8 % (50.0-75.0); NRBC % 0.4 % (0.0-2.0); PLATELET COUNT 89 K/uL (130-400); RBC 3.17 Mil/uL (3.80-5.20); RED CELL DISTRIBUTION WIDTH 19.1 % (11.5-14.5); WHITE BLOOD COUNT 26.3 K/uL (4.8-10.8)
[2018-05-08 08:03] LABS: ALB/GLOB RATIO 0.8 (1.0-2.1); ALBUMIN 3.6 g/dL (3.5-5.0); CALCIUM 8.5 mg/dl (8.6-10.4)
[2018-05-08 08:11] LABS: CK-MB < 0.22 ng/mL (0.0-3.38)
[2018-05-08] MEDS: Fluticasone-Vilanterol 100/25mcg Diskus INH SCH (08:15)
--- NOTE | 2018-05-08 08:56 | CP.PCM.PN ---
Subjective - Date & Time of Evaluation Date of Evaluation: 05/08/18 Time of Evaluation: 08:54 - Subjective Subjective: Alert, not dyspneic Same leukocytosis, repeat cultures negative Remains on IV vanco, 1 positive culture possibly contaminant Phos increased- will need binders for HD today Objective - Vital Signs/Intake and Output Vital Signs (last 24 hours): Temp Pulse Resp BP Pulse Ox 98.2 F 95 H 20 120/51 L 97 05/08/18 08:49 05/08/18 08:49 05/08/18 08:49 05/08/18 08:49 05/08/18 08:49 Intake and Output: 05/08/18 05/08/18 06:59 18:59 Intake Total 400 Balance 400 - Medications Medications: Current Medications Acetaminophen (Tylenol 325mg Tab) 650 mg PO Q6 PRN PRN Reason: Pain, moderate (4-7) Last Admin: 05/04/18 19:21 Dose: 650 mg Albuterol/Ipratropium (Duoneb 3 Mg/0.5 Mg (3 Ml) Ud) 3 ml INH RQ4 [facility] Last Admin: 05/08/18 05:00 Dose: 3 ml Amlodipine Besylate (Norvasc) 10 mg PO DAILY [facility] Last Admin: 05/07/18 10:05 Dose: 10 mg Benzonatate (Tessalon Perles) 100 mg PO TID [facility] Last Admin: 05/07/18 17:39 Dose: 100 mg Epoetin Brandon (Procrit) 10,000 unit IV TTS [facility] Last Admin: 05/05/18 12:41 Dose: 10,000 unit Fenofibrate (Tricor) 48 mg PO QPM [facility] Last Admin: 05/07/18 17:39 Dose: 48 mg Fluticasone/Vilanterol (Breo Ellipta 100-25 Mcg Inh) 1 puff INH RQD [facility] Last Admin: 05/07/18 08:05 Dose: 1 puff Hydralazine HCl (Apresoline) 25 mg PO TID [facility] Last Admin: 05/07/18 17:38 Dose: 25 mg Piperacillin Sod/Tazobactam (Sod 2.25 gm/ Sodium Chloride) 100 mls @ 200 mls/hr IV Q8H [facility]; Protocol Last Admin: 05/07/18 05:48 Dose: 200 mls/hr Vancomycin HCl 1 gm/ Sodium (Chloride) 250 mls @ 166.7 mls/hr IVPB MWF [facility]; Protocol Last Admin: 05/07/18 08:30 Dose: 166.7 mls/hr Insulin Human Regular (Novolin R) 0 unit SC ACHS [facility]; Protocol Last Admin: 05/08/18 07:50 Dose: Not Given Levothyroxine Sodium (Synthroid) 100 mcg PO DAILY@0630 [facility] Last Admin: 05/08/18 05:51 Dose: 100 mcg Metoprolol Succinate (Toprol Xl) 25 mg PO DAILY [facility] Last Admin: 05/07/18 10:05 Dose: 25 mg Prasugrel (Effient) 10 mg PO DAILY [facility] Last Admin: 05/01/18 09:37 Dose: 10 mg Prednisolone Acetate (Pred Forte 1% Opht Susp) 0 ml OU BID [facility] Last Admin: 05/07/18 17:41 Dose: 1 drop Rosuvastatin Calcium (Crestor) 10 mg PO [facility] Last Admin: 05/07/18 22:00 Dose: 10 mg Saccharomyces Boulardii (Florastor) 250 mg PO BID [facility] Last Admin: 05/07/18 17:39 Dose: 250 mg Sitagliptin Phosphate (Januvia) 25 mg PO DAILY [facility] Last Admin: 05/07/18 10:05 Dose: 25 mg - Labs Labs: 05/08/18 07:41 05/08/18 07:41 PT 12.7 SECONDS (9.7-12.2) H 05/01/18 02:14 INR 1.2 05/01/18 02:14 APTT 32 SECONDS (21-34) 05/01/18 02:14 - Constitutional Appears: No Acute Distress, Chronically Ill - Head Exam Head Exam: ATRAUMATIC, NORMAL INSPECTION - Eye Exam Eye Exam: EOMI, Normal appearance - Neck Exam Neck Exam: Normal Inspection. absent: Tenderness - Respiratory Exam Respiratory Exam: Clear to Ausculation Bilateral, NORMAL BREATHING PATTERN - Cardiovascular Exam Cardiovascular Exam: REGULAR RHYTHM, +S1 - GI/Abdominal Exam GI & Abdominal Exam: Soft. absent: Tenderness - Extremities Exam Extremities Exam: Normal Inspection. absent: Tenderness - Neurological Exam Neurological Exam: Awake, CN II-XII Intact - Skin Skin Exam: Dry, Warm Assessment and Plan (1) ESRD (end stage renal disease) Status: Acute (2) CHF (congestive heart failure) Status: Acute (3) CMML (chronic myelomonocytic leukemia) Status: Acute (4) Chronic anemia Status: Acute (5) Leukocytosis Status: Acute (6) Pleural effusion Status: Acute - Assessment and Plan (Free Text) Plan: Same dialysis schedule IV ABs as per ID Add ca acetate
[2018-05-08] MEDS: PrednisoLONE 1% Opht Susp(5 ml) OU SCH ×2 (09:04→17:59)
--- NOTE | 2018-05-08 09:40 | CP.PCM.PN ---
Subjective - Date & Time of Evaluation Date of Evaluation: 05/08/18 Time of Evaluation: 09:36 - Subjective Subjective: Vascular Surgery Progress Note for Dr. Plummer This 83F was seen and examined this AM at bedside. She complains of chest pain and pressure overnight which improved after she was given O2 and a respiratory treatment. Cardiac enzymes were ordered and negative. No other complaints at this time. Objective - Vital Signs/Intake and Output Vital Signs (last 24 hours): Temp Pulse Resp BP Pulse Ox 98.2 F 95 H 20 120/51 L 97 05/08/18 08:49 05/08/18 08:49 05/08/18 08:49 05/08/18 08:49 05/08/18 08:49 Intake and Output: 05/08/18 05/08/18 06:59 18:59 Intake Total 400 Balance 400 - Medications Medications: Current Medications Acetaminophen (Tylenol 325mg Tab) 650 mg PO Q6 PRN PRN Reason: Pain, moderate (4-7) Last Admin: 05/04/18 19:21 Dose: 650 mg Albuterol/Ipratropium (Duoneb 3 Mg/0.5 Mg (3 Ml) Ud) 3 ml INH RQ4 [facility] Last Admin: 05/08/18 05:00 Dose: 3 ml Amlodipine Besylate (Norvasc) 10 mg PO DAILY [facility] Last Admin: 05/07/18 10:05 Dose: 10 mg Benzonatate (Tessalon Perles) 100 mg PO TID [facility] Last Admin: 05/08/18 09:04 Dose: 100 mg Calcium Acetate (Phoslo) 667 mg PO TID [facility] Last Admin: 05/08/18 09:04 Dose: 667 mg Epoetin Brandon (Procrit) 10,000 unit IV TTS [facility] Last Admin: 05/05/18 12:41 Dose: 10,000 unit Fenofibrate (Tricor) 48 mg PO QPM [facility] Last Admin: 05/07/18 17:39 Dose: 48 mg Fluticasone/Vilanterol (Breo Ellipta 100-25 Mcg Inh) 1 puff INH RQD [facility] Last Admin: 05/07/18 08:05 Dose: 1 puff Hydralazine HCl (Apresoline) 25 mg PO TID [facility] Last Admin: 05/07/18 17:38 Dose: 25 mg Piperacillin Sod/Tazobactam (Sod 2.25 gm/ Sodium Chloride) 100 mls @ 200 mls/hr IV Q8H [facility]; Protocol Last Admin: 05/07/18 05:48 Dose: 200 mls/hr Vancomycin HCl 1 gm/ Sodium (Chloride) 250 mls @ 166.7 mls/hr IVPB MWF [facility]; Protocol Last Admin: 05/07/18 08:30 Dose: 166.7 mls/hr Insulin Human Regular (Novolin R) 0 unit SC ACHS [facility]; Protocol Last Admin: 05/08/18 07:50 Dose: Not Given Levothyroxine Sodium (Synthroid) 100 mcg PO DAILY@0630 [facility] Last Admin: 05/08/18 05:51 Dose: 100 mcg Metoprolol Succinate (Toprol Xl) 25 mg PO DAILY [facility] Last Admin: 05/07/18 10:05 Dose: 25 mg Prasugrel (Effient) 10 mg PO DAILY [facility] Last Admin: 05/01/18 09:37 Dose: 10 mg Prednisolone Acetate (Pred Forte 1% Opht Susp) 0 ml OU BID [facility] Last Admin: 05/08/18 09:04 Dose: 1 drop Rosuvastatin Calcium (Crestor) 10 mg PO HS [facility] Last Admin: 05/07/18 22:00 Dose: 10 mg Saccharomyces Boulardii (Florastor) 250 mg PO BID [facility] Last Admin: 05/07/18 17:39 Dose: 250 mg Sitagliptin Phosphate (Januvia) 25 mg PO DAILY [facility] Last Admin: 05/08/18 09:04 Dose: 25 mg - Labs Labs: 05/08/18 07:41 05/08/18 07:41 PT 12.7 SECONDS (9.7-12.2) H 05/01/18 02:14 INR 1.2 05/01/18 02:14 APTT 32 SECONDS (21-34) 05/01/18 02:14 - Constitutional Appears: Non-toxic, No Acute Distress - Head Exam Head Exam: ATRAUMATIC, NORMOCEPHALIC - Eye Exam Eye Exam: EOMI - Cardiovascular Exam Cardiovascular Exam: +S1, +S2 - Neurological Exam Neurological Exam: Alert, Awake - Psychiatric Exam Psychiatric exam: Normal Affect, Normal Mood - Skin Skin Exam: Dry, Intact Assessment and Plan - Assessment and Plan (Free Text) Assessment: 83F with Bacteremia and ESRD Patient will need AVF placed, currently WBC trending up. When medically optomized and cleared for surgery, we will plan for an AVF. At this time after discussion with primary team the decision was made to hold off on surgery at this time. We will continue to follow. D/W Dr. Elian Alfaro PGY3
[2018-05-08] MEDS: Saccharomyces Boulardi 250 mg Cap PO SCH ×2 (10:00→17:53)
[2018-05-08] MEDS: Metoprolol Succinate 25 mg XL Tab PO SCH (10:00)
--- NOTE | 2018-05-08 10:29 | CP.PCM.PN ---
Subjective - Date & Time of Evaluation Date of Evaluation: 05/08/18 Time of Evaluation: 11:23 - Subjective Subjective: PGY-[address] Miguel Patient seen and examined at bedside. No acute events overnight. Patient continues to have no complaints other than some shortness of breath when walking to the bathroom. WBCs continue to rise despite patient without evident symptoms. Hold on AVF creation until leukocytosis improves. Objective - Vital Signs/Intake and Output Vital Signs (last 24 hours): Temp Pulse Resp BP Pulse Ox 97.9 F 96 H 18 156/56 H 97 05/08/18 09:00 05/08/18 09:00 05/08/18 09:00 05/08/18 09:00 05/08/18 08:49 Intake and Output: 05/08/18 05/08/18 06:59 18:59 Intake Total 400 Balance 400 - Medications Medications: Current Medications Acetaminophen (Tylenol 325mg Tab) 650 mg PO Q6 PRN PRN Reason: Pain, moderate (4-7) Last Admin: 05/04/18 19:21 Dose: 650 mg Albuterol/Ipratropium (Duoneb 3 Mg/0.5 Mg (3 Ml) Ud) 3 ml INH RQ4 [facility] Last Admin: 05/08/18 05:00 Dose: 3 ml Amlodipine Besylate (Norvasc) 10 mg PO DAILY [facility] Last Admin: 05/07/18 10:05 Dose: 10 mg Benzonatate (Tessalon Perles) 100 mg PO TID [facility] Last Admin: 05/08/18 09:04 Dose: 100 mg Calcium Acetate (Phoslo) 667 mg PO TID [facility] Last Admin: 05/08/18 09:04 Dose: 667 mg Epoetin Brandon (Procrit) 10,000 unit IV TTS [facility] Last Admin: 05/05/18 12:41 Dose: 10,000 unit Fenofibrate (Tricor) 48 mg PO QPM [facility] Last Admin: 05/07/18 17:39 Dose: 48 mg Hydralazine HCl (Apresoline) 25 mg PO TID [facility] Last Admin: 05/07/18 17:38 Dose: 25 mg Piperacillin Sod/Tazobactam (Sod 2.25 gm/ Sodium Chloride) 100 mls @ 200 mls/hr IV Q8H [facility]; Protocol Last Admin: 05/07/18 05:48 Dose: 200 mls/hr Vancomycin HCl 1 gm/ Sodium (Chloride) 250 mls @ 166.7 mls/hr IVPB MWF [facility]; Protocol Last Admin: 05/07/18 08:30 Dose: 166.7 mls/hr Insulin Human Regular (Novolin R) 0 unit SC ACHS [facility]; Protocol Last Admin: 05/08/18 07:50 Dose: Not Given Levothyroxine Sodium (Synthroid) 100 mcg PO DAILY@0630 [facility] Last Admin: 05/08/18 05:51 Dose: 100 mcg Metoprolol Succinate (Toprol Xl) 25 mg PO DAILY [facility] Last Admin: 05/07/18 10:05 Dose: 25 mg Prasugrel (Effient) 10 mg PO DAILY [facility] Last Admin: 05/01/18 09:37 Dose: 10 mg Prednisolone Acetate (Pred Forte 1% Opht Susp) 0 ml OU BID [facility] Last Admin: 05/08/18 09:04 Dose: 1 drop Rosuvastatin Calcium (Crestor) 10 mg PO [facility] Last Admin: 05/07/18 22:00 Dose: 10 mg Saccharomyces Boulardii (Florastor) 250 mg PO BID [facility] Last Admin: 05/07/18 17:39 Dose: 250 mg Sitagliptin Phosphate (Januvia) 25 mg PO DAILY [facility] Last Admin: 05/08/18 09:04 Dose: 25 mg - Labs Labs: 05/08/18 07:41 05/08/18 07:41 PT 12.7 SECONDS (9.7-12.2) H 05/01/18 02:14 INR 1.2 05/01/18 02:14 APTT 32 SECONDS (21-34) 05/01/18 02:14 - Constitutional Appears: Non-toxic, No Acute Distress - Head Exam Head Exam: ATRAUMATIC, NORMAL INSPECTION - Eye Exam Eye Exam: EOMI, Normal appearance - ENT Exam ENT Exam: Mucous Membranes Moist - Respiratory Exam Respiratory Exam: Clear to Ausculation Bilateral, NORMAL BREATHING PATTERN. absent: Rales, Rhonchi, Wheezes - Cardiovascular Exam Cardiovascular Exam: REGULAR RHYTHM, +S1, +S2 - GI/Abdominal Exam GI & Abdominal Exam: Soft, Normal Bowel Sounds. absent: Tenderness - Neurological Exam Neurological Exam: Alert, Awake, CN II-XII Intact, Oriented x3 - Psychiatric Exam Psychiatric exam: Normal Affect, Normal Mood - Skin Skin Exam: Dry, Intact, Normal Color, Warm Assessment and Plan - Assessment and Plan (Free Text) Assessment: 83yo female PMH ESRD on HD TTS, COPD, PVD , CHF with preserved EF, HTN, myelodyplastic syndrome, hypothyroidism and recent pneumonia who is admitted for HCAP with pleural effusions. Due to positive blood cultures, Permacath was replaced and AVF anticipated next week after bacteremia clears. Most recent blood cultures negative, but WBCs continue to rise. Repeat blood cultures neg ative x24 hours. Plan: Pleural effusions with exacerbation of CHF History of COPD - CXR (05/01): Interval patchy coalescent airspace opacities medial right lung base confluent areas of pulmonary venous congestion and pulmonary edema are favored. A concomitant patchy infiltrate-change here is not excluded. Interval subsegmental atelectasis with or without fissural fluid left mid lung zone. Asymmetrically elevated left hemidiaphragm with left basal compressive atelecta sis and left inferolateral pleural effusion/thickening re-noted. Concomitant left subsegmental infiltrate here not excluded No definite interval change at the left lung base noted. - CT Chest (05/02): interval decrease in L pleural effusion and near complete resolution of R pleural effusion. residual multifocal atelectatsis in L lung and RLL, no evidence of pneumonia. mild cardiomegaly and small pericardial effusion. - CXR (05/07): Left lower lobe opacity. Rule out pneumonia. Small left pleural effusion. Otherwise no change. - CXR does appear much improved from prior film - Pulm consulted: Dr. Hernandez - help appreciated - ID consulted: Dr. Rodriguez - help appreciated - WBC 17.7 on admission --> 23.6 05/07 - Mycoplasma neg, Flu A/B neg, Legionella neg - Blood Cx (05/01): gram positive cocci in clusters - 1/2 cultures growing Staph A and Coag neg Staph - taken separately from two diff sites - Blood Cx 05/04 negative at 72 hours. Repeating cultures. - Nares MRSA screen (05/01) neg - Duonebs q4 [facility] - Vancomycin 1gm IVPB MWF from daily 05/04 (started 05/01) - Trough 05/04 7.0 - Zosyn 2.25gm IV q8 (started 05/01) - Tessalon Perles 100mg po tid - pulm toilet - Repeat blood cultures negative x24 hours Blood Cultures Growing Staph Aureus/Coag Neg Staph - 1/2 cultures positive - Surgery consulted: Dr. Plummer - help appreciated - Permacath replaced 05/04 as potential nidus for infection - CXR confirmed correct placement, OK for HD use - Per surgery, site did not appear infected in the OR - Repeat cultures 05/04 showing no growth x72 hours, though WBC count continues to rise. Repeating cultures and pro-silva. - -Patient not on oral steroids, but consider due to inhaled steroid in Breo- elipta --> Breo discontinued ESRD on HD TTS - Nephro consulted: Dr. Kian snyder appreciated - HD restarted on TTS schedule - EPO started for persistent decreasing Hgb - Per surgery, L arm restrict for AVF creation after bacteremia clears. Patient to use Permacath until then. - renally dose medication Thrombocytopenia - Hx CMML, platelets had been decreasing, but increased to 75 today - Plts 97 on admission -> 88 -> 78 -> 72 -> 67 --> 75 - continue to hold Prasugrel - f/u HIT/NOMAN to r/o HIT - monitor with AM labs Anemia of Chronic Disease - H&H 7.4/22.5 on admission - Iron studies: Fe 78, TIBC 223, %sat 35, Ferritin 775.0 - transfused 2u PRBC with HD (05/01), Hb responded appropriately (7.0 -> 10.8) - monitor with AM labs - transfuse prn Diastolic CHF, chronic - BNP 6830 on admission - EKG: NSR@91 - elevate head of bed - Strict I&Os - Fluid restriction Hypertension - home Norvasc 10mg PO daily - home Metoprolol XL 25mg PO daily - Hydralazine 25mg po tid Hyperlipidemia - home Crestor 10mg PO HS - home Fenofibrate 48mg PO qPM Diabetes Mellitus - home Januvia 25mg PO daily - Accuchecks ACHS - ISS - hypoglycemia protocol Hypothyroidism - home Levothyroxine 100mcg PO daily History of myelodysplastic syndrome/leukemia - Heme/Onc consulted: Dr. Lopez Day - outpatient physician - help appreciated - WBC 17.7 on admission, INR 1.2. WBC 23.6 today - home Prasugrel held 2/2 thrombocytopenia PPX: - DVT: home Prasugrel held for increased bleed risk from thrombocytopenia, SCDs - GI: Florastor 250mg PO BID - Diet: Heart healthy diet, 2g Na - Palliative Care consult for goals of care discussion as this is her third hospitalization in as many months - Tylenol 650mg po q6 prn for headache/pain Dispo: referral for d/c. PT eval for d/c. Patient needs to have chair back at HD before discharge. Assessment and Plan d/w Dr. Myriam Al, PGY-1
[2018-05-08 10:37] LABS: EOSINOPHIL 2 % (0-4); LYMPHOCYTE 13 % (20-40); MONOCYTE 34 % (0-10); NEUTROPHIL 51 % (50-75); PLATELET ESTIMATE DECREASED (NORMAL); TOTAL CELLS COUNTED 100
[2018-05-08 10:39] LABS: ANISOCYTOSIS MODERATE
[2018-05-08 10:40] LABS: HYPOCHROMIC SLIGHT; LARGE PLATELETS PRESENT; POLYCHROMIC SLIGHT
[2018-05-08 10:41] LABS: GIANT PLATELETS PRESENT
[2018-05-08] MEDS: Epoetin Alfa 10,000 unit/ml Dialysis IV SCH (11:25)
[2018-05-08 16:33] VITALS: RESP 20
[2018-05-09] MEDS: Albuterol-Ipratrop 3 mg / 0.5 (3 ml) UD INH SCH ×6 (00:25→20:47)
[2018-05-09] MEDS: Levothyroxine 100 MCG TAB PO SCH (05:52)
[2018-05-09] MEDS: (Novolin R) Insulin Human Regular 100 units/ml vial SC SCH ×4 (07:40→22:18)
[2018-05-09 08:20] LABS: BASO % 0.2 % (0.0-2.0); EOS # 0.2 K/uL (0.0-0.7); HEMOGLOBIN 9.4 g/dL (11.0-16.0); LYMPH # 3.1 K/uL (1.0-4.3); LYMPH % 13.6 % (20.0-40.0); MEAN CELL VOLUME 92.2 fL (81.0-99.0); MEAN CORPUSCULAR HEMOGLOBIN 29.9 pg (27.0-31.0); MEAN CORPUSCULAR HGB CONC 32.4 g/dL (33.0-37.0); MEAN PLATELET VOLUME 9.4 fL (7.2-11.7); MONO # 7.2 K/uL (0.0-0.8); MONO % 32.1 % (0.0-10.0); NEUT # 11.9 K/uL (1.8-7.0); NEUT % 53.1 % (50.0-75.0); NRBC % 0.1 % (0.0-2.0); RBC 3.15 Mil/uL (3.80-5.20); RED CELL DISTRIBUTION WIDTH 19.1 % (11.5-14.5); WHITE BLOOD COUNT 22.4 K/uL (4.8-10.8)
[2018-05-09 08:36] LABS: PLATELET COUNT 64 K/uL (130-400)
[2018-05-09 08:38] LABS: ALB/GLOB RATIO 0.8 (1.0-2.1); ALBUMIN 3.4 g/dL (3.5-5.0); CALCIUM 8.5 mg/dl (8.6-10.4)
[2018-05-09] MEDS ORDERED: Dextrose 50% SYRINGE Inj (50 ml) IV PRN (09:03)
[2018-05-09] MEDS ORDERED: Glucagon Recombinant 1 mg Inj IM PRN (09:03)
[2018-05-09 09:43] LABS: ANISOCYTOSIS SLIGHT; EOSINOPHIL 1 % (0-4); HYPOCHROMIC SLIGHT; LYMPHOCYTE 11 % (20-40); MONOCYTE 30 % (0-10); MYELOCYTE 1 % (0-0); NEUTROPHIL 57 % (50-75); PLATELET ESTIMATE DECREASED (NORMAL); POIKILOCYTOSIS SLIGHT; TOTAL CELLS COUNTED 100
[2018-05-09 09:44] LABS: BURR CELLS SLIGHT; LARGE PLATELETS PRESENT; MICROCYTOSIS SLIGHT; TARGET CELLS SLIGHT; TEARDROP CELLS SLIGHT
[2018-05-09] MEDS: PrednisoLONE 1% Opht Susp(5 ml) OU SCH ×2 (10:07→18:36)
[2018-05-09] MEDS: Metoprolol Succinate 25 mg XL Tab PO SCH (10:07)
[2018-05-09] MEDS: Saccharomyces Boulardi 250 mg Cap PO SCH ×2 (10:07→18:35)
--- NOTE | 2018-05-09 11:02 | CP.PCM.PN ---
Subjective - Date & Time of Evaluation Date of Evaluation: 05/09/18 Time of Evaluation: 11:02 Objective - Vital Signs/Intake and Output Vital Signs (last 24 hours): Temp Pulse Resp BP Pulse Ox 98.3 F 92 H 20 116/60 98 05/09/18 08:32 05/09/18 08:32 05/09/18 08:32 05/09/18 08:32 05/09/18 08:32 Intake and Output: 05/09/18 05/09/18 06:59 18:59 Intake Total 420 Balance 420 - Medications Medications: Current Medications Acetaminophen (Tylenol 325mg Tab) 650 mg PO Q6 PRN PRN Reason: Pain, moderate (4-7) Last Admin: 05/04/18 19:21 Dose: 650 mg Albuterol/Ipratropium (Duoneb 3 Mg/0.5 Mg (3 Ml) Ud) 3 ml INH RQ4 [facility] Last Admin: 05/09/18 07:55 Dose: Not Given Amlodipine Besylate (Norvasc) 10 mg PO DAILY [facility] Last Admin: 05/09/18 10:07 Dose: 10 mg Benzonatate (Tessalon Perles) 100 mg PO TID [facility] Last Admin: 05/09/18 10:07 Dose: 100 mg Calcium Acetate (Phoslo) 667 mg PO TID [facility] Last Admin: 05/09/18 10:07 Dose: 667 mg Dextrose (Dextrose 50% Inj) 0 ml IV STAT PRN; Protocol PRN Reason: Hypoglycemia Protocol Dextrose (Glutose 15) 0 gm PO ONCE PRN; Protocol PRN Reason: Hypoglycemia Protocol Epoetin Brandon (Procrit) 10,000 unit IV TTS [facility] Last Admin: 05/08/18 11:25 Dose: 10,000 unit Fenofibrate (Tricor) 48 mg PO QPM [facility] Last Admin: 05/08/18 17:59 Dose: 48 mg Glucagon (Glucagen Diagnostic Kit) 0 mg IM STAT PRN; Protocol PRN Reason: Hypoglycemia Protocol Hydralazine HCl (Apresoline) 25 mg PO TID [facility] Last Admin: 05/09/18 10:07 Dose: 25 mg Piperacillin Sod/Tazobactam (Sod 2.25 gm/ Sodium Chloride) 100 mls @ 200 mls/hr IV Q8H [facility]; Protocol Last Admin: 05/07/18 05:48 Dose: 200 mls/hr Vancomycin HCl 1 gm/ Sodium (Chloride) 250 mls @ 166.7 mls/hr IVPB MWF [facility]; Protocol Last Admin: 05/09/18 10:06 Dose: 166.7 mls/hr Dextrose (Dextrose 5% In Water 1000 Ml) 1,000 mls @ 0 mls/hr IV .Q0M PRN; Protocol PRN Reason: Hypoglycemia Protocol Insulin Human Regular (Novolin R) 0 unit SC ACHS [facility]; Protocol Last Admin: 05/09/18 07:40 Dose: Not Given Levothyroxine Sodium (Synthroid) 100 mcg PO DAILY@0630 [facility] Last Admin: 05/09/18 05:52 Dose: 100 mcg Metoprolol Succinate (Toprol Xl) 25 mg PO DAILY [facility] Last Admin: 05/09/18 10:07 Dose: 25 mg Prasugrel (Effient) 10 mg PO DAILY [facility] Last Admin: 05/01/18 09:37 Dose: 10 mg Prednisolone Acetate (Pred Forte 1% Opht Susp) 0 ml OU BID [facility] Last Admin: 05/09/18 10:07 Dose: 1 drop Rosuvastatin Calcium (Crestor) 10 mg PO HS [facility] Last Admin: 05/08/18 22:10 Dose: 10 mg Saccharomyces Boulardii (Florastor) 250 mg PO BID [facility] Last Admin: 05/09/18 10:07 Dose: 250 mg Sitagliptin Phosphate (Januvia) 25 mg PO DAILY [facility] Last Admin: 05/09/18 10:07 Dose: 25 mg - Labs Labs: 05/09/18 08:08 05/09/18 08:08 PT 12.7 SECONDS (9.7-12.2) H 05/01/18 02:14 INR 1.2 05/01/18 02:14 APTT 32 SECONDS (21-34) 05/01/18 02:14 Assessment and Plan (1) Acute CHF Status: Acute (2) ESRD (end stage renal disease) Status: Acute (3) Obstructive sleep apnea Status: Acute (4) COPD (chronic obstructive pulmonary disease) Status: Chronic (5) Pleural effusion Status: Acute
--- NOTE | 2018-05-09 11:19 | CP.PCM.PN ---
Subjective - Date & Time of Evaluation Date of Evaluation: 05/09/18 Time of Evaluation: 11:20 - Subjective Subjective: PGY-[address] Helder Abernathy Patient seen and examined at bedside. No acute events overnight. Patient tolerating diet. Patient continues to have no complaints. Denies chest pain, cough, shortness of breath, fevers. We will continue to monitor WBCs and patient to have AVF creation once leukocytosis improves. Objective - Vital Signs/Intake and Output Vital Signs (last 24 hours): Temp Pulse Resp BP Pulse Ox 98.3 F 92 H 20 116/60 98 05/09/18 08:32 05/09/18 08:32 05/09/18 08:32 05/09/18 08:32 05/09/18 08:32 Intake and Output: 05/09/18 05/09/18 06:59 18:59 Intake Total 420 Balance 420 - Medications Medications: Current Medications Acetaminophen (Tylenol 325mg Tab) 650 mg PO Q6 PRN PRN Reason: Pain, moderate (4-7) Last Admin: 05/04/18 19:21 Dose: 650 mg Albuterol/Ipratropium (Duoneb 3 Mg/0.5 Mg (3 Ml) Ud) 3 ml INH RQ4 [facility] Last Admin: 05/09/18 07:55 Dose: Not Given Amlodipine Besylate (Norvasc) 10 mg PO DAILY [facility] Last Admin: 05/09/18 10:07 Dose: 10 mg Benzonatate (Tessalon Perles) 100 mg PO TID [facility] Last Admin: 05/09/18 10:07 Dose: 100 mg Calcium Acetate (Phoslo) 667 mg PO TID [facility] Last Admin: 05/09/18 10:07 Dose: 667 mg Dextrose (Dextrose 50% Inj) 0 ml IV STAT PRN; Protocol PRN Reason: Hypoglycemia Protocol Dextrose (Glutose 15) 0 gm PO ONCE PRN; Protocol PRN Reason: Hypoglycemia Protocol Epoetin Brandon (Procrit) 10,000 unit IV TTS [facility] Last Admin: 05/08/18 11:25 Dose: 10,000 unit Fenofibrate (Tricor) 48 mg PO QPM [facility] Last Admin: 05/08/18 17:59 Dose: 48 mg Glucagon (Glucagen Diagnostic Kit) 0 mg IM STAT PRN; Protocol PRN Reason: Hypoglycemia Protocol Hydralazine HCl (Apresoline) 25 mg PO TID [facility] Last Admin: 05/09/18 10:07 Dose: 25 mg Piperacillin Sod/Tazobactam (Sod 2.25 gm/ Sodium Chloride) 100 mls @ 200 mls/hr IV Q8H [facility]; Protocol Last Admin: 05/07/18 05:48 Dose: 200 mls/hr Vancomycin HCl 1 gm/ Sodium (Chloride) 250 mls @ 166.7 mls/hr IVPB MWF [facility]; Protocol Last Admin: 05/09/18 10:06 Dose: 166.7 mls/hr Dextrose (Dextrose 5% In Water 1000 Ml) 1,000 mls @ 0 mls/hr IV .Q0M PRN; Protocol PRN Reason: Hypoglycemia Protocol Insulin Human Regular (Novolin R) 0 unit SC ACHS [facility]; Protocol Last Admin: 05/09/18 07:40 Dose: Not Given Levothyroxine Sodium (Synthroid) 100 mcg PO DAILY@0630 [facility] Last Admin: 05/09/18 05:52 Dose: 100 mcg Metoprolol Succinate (Toprol Xl) 25 mg PO DAILY [facility] Last Admin: 05/09/18 10:07 Dose: 25 mg Prasugrel (Effient) 10 mg PO DAILY [facility] Last Admin: 05/01/18 09:37 Dose: 10 mg Prednisolone Acetate (Pred Forte 1% Opht Susp) 0 ml OU BID [facility] Last Admin: 05/09/18 10:07 Dose: 1 drop Rosuvastatin Calcium (Crestor) 10 mg PO HS [facility] Last Admin: 05/08/18 22:10 Dose: 10 mg Saccharomyces Boulardii (Florastor) 250 mg PO BID [facility] Last Admin: 05/09/18 10:07 Dose: 250 mg Sitagliptin Phosphate (Januvia) 25 mg PO DAILY [facility] Last Admin: 05/09/18 10:07 Dose: 25 mg - Labs Labs: 05/09/18 08:08 05/09/18 08:08 PT 12.7 SECONDS (9.7-12.2) H 05/01/18 02:14 INR 1.2 05/01/18 02:14 APTT 32 SECONDS (21-34) 05/01/18 02:14 - Constitutional Appears: Non-toxic, No Acute Distress - Head Exam Head Exam: ATRAUMATIC, NORMAL INSPECTION - Eye Exam Eye Exam: EOMI, Normal appearance - ENT Exam ENT Exam: Mucous Membranes Moist - Respiratory Exam Respiratory Exam: Clear to Ausculation Bilateral, NORMAL BREATHING PATTERN. absent: Rhonchi, Wheezes - Cardiovascular Exam Cardiovascular Exam: REGULAR RHYTHM, +S1, +S2 - GI/Abdominal Exam GI & Abdominal Exam: Soft, Normal Bowel Sounds. absent: Tenderness - Neurological Exam Neurological Exam: Alert, Awake, CN II-XII Intact, Oriented x3 - Psychiatric Exam Psychiatric exam: Normal Affect, Normal Mood - Skin Skin Exam: Dry, Intact, Normal Color Assessment and Plan - Assessment and Plan (Free Text) Assessment: 83yo female PMH ESRD on HD TTS, COPD, PVD , CHF with preserved EF, HTN, myelodyplastic syndrome, hypothyroidism and recent pneumonia who is admitted for HCAP with pleural effusions. Due to positive blood cultures, Permacath was replaced and AVF anticipated next week after bacteremia clears. . WBC count did downtrend today for first time this week. Repeat blood cultures negative x24 hours. On Vanc/Zosyn. Plan: Pleural effusions with exacerbation of CHF History of COPD - CXR (05/01): Interval patchy coalescent airspace opacities medial right lung base confluent areas of pulmonary venous congestion and pulmonary edema are favored. A concomitant patchy infiltrate-change here is not excluded. Interval subsegmental atelectasis with or without fissural fluid left mid lung zone. Asymmetrically elevated left hemidiaphragm with left basal compressive atelectasis and left inferolateral pleural effusion/thickening re-noted. Concomitant left subsegmental infiltrate here not excluded No definite interval change at the left lung base noted. - CT Chest (05/02): interval decrease in L pleural effusion and near complete resolution of R pleural effusion. residual multifocal atelectatsis in L lung and RLL, no evidence of pneumonia. mild cardiomegaly and small pericardial effusion. - CXR (05/07): Left lower lobe opacity. Rule out pneumonia. Small left pleural effusion. Otherwise no change. - CXR does appear much improved from prior film - Pulm consulted: Dr. Hernandez - help appreciated - ID consulted: Dr. Rodriguez - help appreciated - WBC 17.7 on admission --> 23.6 05/07 - Mycoplasma neg, Flu A/B neg, Legionella neg - Blood Cx (05/01): gram positive cocci in clusters - 1/2 cultures growing Staph A and Coag neg Staph - taken separately from two diff sites - Blood Cx 05/04 negative FINAL. Repeat blood Cx 05/07 negative at 24 hours. - Nares MRSA screen (05/01) neg - Duonebs q4 [facility] - Vancomycin 1gm IVPB MWF from daily 05/04 (started 05/01) - Trough 05/04 7.0 - Zosyn 2.25gm IV q8 (started 05/01) - Tessalon Perles 100mg po tid - pulm toilet - Repeat blood cultures negative x24 hours Blood Cultures Growing Staph Aureus/Coag Neg Staph - 1/2 cultures positive - Surgery consulted: Dr. Plummer - jhony appreciated - Permacath replaced 05/04 as potential nidus for infection - CXR confirmed correct placement, OK for HD use - Per surgery, site did not appear infected in the OR - Repeat cultures 05/04 showing no growth x72 hours, though WBC count continues to rise. Repeating cultures and pro-silva. - Breo discontinued due to increasing leukocytosis ESRD on HD TTS - Nephro consulted: Dr. Kian snyder appreciated - HD restarted on TTS schedule - EPO started for persistent decreasing Hgb - Per surgery, L arm restrict for AVF creation after bacteremia clears. Patient to use Permacath until then. - renally dose medication Thrombocytopenia - Hx CMML, platelets had been decreasing, but increased to 75 today - Plts 97 on admission. 64 05/09 - continue to hold Prasugrel - f/u HIT/NOMAN to r/o HIT - monitor with AM labs Anemia of Chronic Disease - H&H 7.4/22.5 on admission - Iron studies: Fe 78, TIBC 223, %sat 35, Ferritin 775.0 - transfused 2u PRBC with HD (05/01), Hb responded appropriately (7.0 -> 10.8) - monitor with AM labs - transfuse prn Diastolic CHF, chronic - BNP 6830 on admission - EKG: NSR@91 - elevate head of bed - Strict I&Os - Fluid restriction Hypertension - home Norvasc 10mg PO daily - home Metoprolol XL 25mg PO daily - Hydralazine 25mg po tid Hyperlipidemia - home Crestor 10mg PO HS - home Fenofibrate 48mg PO qPM Diabetes Mellitus - home Januvia 25mg PO daily - Vladimir ACHS - ISS - hypoglycemia protocol Hypothyroidism - home Levothyroxine 100mcg PO daily History of myelodysplastic syndrome/leukemia - Heme/Onc consulted: Dr. Lopez Day - outpatient physician - help appreciated - WBC 17.7 on admission, INR 1.2. WBC 23.6 today - home Prasugrel held 2/2 thrombocytopenia PPX: - DVT: home Prasugrel held for increased bleed risk from thrombocytopenia, SCDs - GI: Florastor 250mg PO BID - Diet: Heart healthy diet, 2g Na - Palliative Care consult for goals of care discussion as this is her third hospitalization in as many months - Tylenol 650mg po q6 prn for headache/pain Dispo: SW referral for d/c. PT eval for d/c. Patient needs to have chair back at HD before discharge. Assessment and Plan d/w Dr. Pawel Al, PGY-1
--- NOTE | 2018-05-09 13:28 | CP.PCM.PN ---
Subjective - Date & Time of Evaluation Date of Evaluation: 05/09/18 Time of Evaluation: 13:26 - Subjective Subjective: Feels better Repeat cultures negative to date Stable dialysis course Ca, phos better Objective - Vital Signs/Intake and Output Vital Signs (last 24 hours): Temp Pulse Resp BP Pulse Ox 98.3 F 92 H 20 116/60 98 05/09/18 08:32 05/09/18 08:32 05/09/18 08:32 05/09/18 08:32 05/09/18 08:32 Intake and Output: 05/09/18 05/09/18 06:59 18:59 Intake Total 420 Balance 420 - Medications Medications: Current Medications Acetaminophen (Tylenol 325mg Tab) 650 mg PO Q6 PRN PRN Reason: Pain, moderate (4-7) Last Admin: 05/04/18 19:21 Dose: 650 mg Albuterol/Ipratropium (Duoneb 3 Mg/0.5 Mg (3 Ml) Ud) 3 ml INH RQ4 [facility] Last Admin: 05/09/18 07:55 Dose: Not Given Amlodipine Besylate (Norvasc) 10 mg PO DAILY [facility] Last Admin: 05/09/18 10:07 Dose: 10 mg Benzonatate (Tessalon Perles) 100 mg PO TID [facility] Last Admin: 05/09/18 10:07 Dose: 100 mg Calcium Acetate (Phoslo) 667 mg PO TID [facility] Last Admin: 05/09/18 10:07 Dose: 667 mg Dextrose (Dextrose 50% Inj) 0 ml IV STAT PRN; Protocol PRN Reason: Hypoglycemia Protocol Dextrose (Glutose 15) 0 gm PO ONCE PRN; Protocol PRN Reason: Hypoglycemia Protocol Epoetin Brandon (Procrit) 10,000 unit IV TTS [facility] Last Admin: 05/08/18 11:25 Dose: 10,000 unit Fenofibrate (Tricor) 48 mg PO QPM [facility] Last Admin: 05/08/18 17:59 Dose: 48 mg Glucagon (Glucagen Diagnostic Kit) 0 mg IM STAT PRN; Protocol PRN Reason: Hypoglycemia Protocol Hydralazine HCl (Apresoline) 25 mg PO TID [facility] Last Admin: 05/09/18 10:07 Dose: 25 mg Piperacillin Sod/Tazobactam (Sod 2.25 gm/ Sodium Chloride) 100 mls @ 200 mls/hr IV Q8H [facility]; Protocol Last Admin: 05/07/18 05:48 Dose: 200 mls/hr Vancomycin HCl 1 gm/ Sodium (Chloride) 250 mls @ 166.7 mls/hr IVPB MWF [facility]; Protocol Last Admin: 05/09/18 10:06 Dose: 166.7 mls/hr Dextrose (Dextrose 5% In Water 1000 Ml) 1,000 mls @ 0 mls/hr IV .Q0M PRN; Protocol PRN Reason: Hypoglycemia Protocol Insulin Human Regular (Novolin R) 0 unit SC ACHS [facility]; Protocol Last Admin: 05/09/18 12:18 Dose: 1 unit Levothyroxine Sodium (Synthroid) 100 mcg PO DAILY@0630 [facility] Last Admin: 05/09/18 05:52 Dose: 100 mcg Metoprolol Succinate (Toprol Xl) 25 mg PO DAILY [facility] Last Admin: 05/09/18 10:07 Dose: 25 mg Prasugrel (Effient) 10 mg PO DAILY [facility] Last Admin: 05/01/18 09:37 Dose: 10 mg Prednisolone Acetate (Pred Forte 1% Opht Susp) 0 ml OU BID [facility] Last Admin: 05/09/18 10:07 Dose: 1 drop Rosuvastatin Calcium (Crestor) 10 mg PO HS [facility] Last Admin: 05/08/18 22:10 Dose: 10 mg Saccharomyces Boulardii (Florastor) 250 mg PO BID [facility] Last Admin: 05/09/18 10:07 Dose: 250 mg Sitagliptin Phosphate (Januvia) 25 mg PO DAILY [facility] Last Admin: 05/09/18 10:07 Dose: 25 mg - Labs Labs: 05/09/18 08:08 05/09/18 08:08 PT 12.7 SECONDS (9.7-12.2) H 05/01/18 02:14 INR 1.2 05/01/18 02:14 APTT 32 SECONDS (21-34) 05/01/18 02:14 - Constitutional Appears: No Acute Distress, Chronically Ill - Head Exam Head Exam: ATRAUMATIC, NORMAL INSPECTION - Eye Exam Eye Exam: EOMI, Normal appearance - Neck Exam Neck Exam: Normal Inspection. absent: Tenderness - Respiratory Exam Respiratory Exam: Rhonchi, NORMAL BREATHING PATTERN - Cardiovascular Exam Cardiovascular Exam: REGULAR RHYTHM, +S1 - GI/Abdominal Exam GI & Abdominal Exam: Soft. absent: Tenderness - Extremities Exam Extremities Exam: Normal Inspection. absent: Tenderness - Neurological Exam Neurological Exam: Awake, CN II-XII Intact - Skin Skin Exam: Dry, Warm Assessment and Plan (1) ESRD (end stage renal disease) Status: Acute (2) CHF (congestive heart failure) Status: Acute (3) CMML (chronic myelomonocytic leukemia) Status: Acute (4) Chronic anemia Status: Acute (5) Leukocytosis Status: Acute (6) Pleural effusion Status: Acute - Assessment and Plan (Free Text) Plan: IV ABs as per ID Same HD schedule - TTS Eventual AV access
--- NOTE | 2018-05-09 16:02 | CP.PCM.PN ---
Subjective - Date & Time of Evaluation Date of Evaluation: 05/09/18 Time of Evaluation: 09:00 - Subjective Subjective: afeb alert\ nad all cultures done on repeat are neg awaiting AV fistula Objective - Vital Signs/Intake and Output Vital Signs (last 24 hours): Temp Pulse Resp BP Pulse Ox 98.3 F 92 H 20 120/48 L 98 05/09/18 08:32 05/09/18 08:32 05/09/18 08:32 05/09/18 13:25 05/09/18 08:32 Intake and Output: 05/09/18 05/09/18 06:59 18:59 Intake Total 420 500 Balance 420 500 - Medications Medications: Current Medications Acetaminophen (Tylenol 325mg Tab) 650 mg PO Q6 PRN PRN Reason: Pain, moderate (4-7) Last Admin: 05/04/18 19:21 Dose: 650 mg Albuterol/Ipratropium (Duoneb 3 Mg/0.5 Mg (3 Ml) Ud) 3 ml INH RQ4 [facility] Last Admin: 05/09/18 12:00 Dose: 3 ml Amlodipine Besylate (Norvasc) 10 mg PO DAILY [facility] Last Admin: 05/09/18 10:07 Dose: 10 mg Benzonatate (Tessalon Perles) 100 mg PO TID [facility] Last Admin: 05/09/18 13:30 Dose: 100 mg Calcium Acetate (Phoslo) 667 mg PO TID [facility] Last Admin: 05/09/18 13:30 Dose: 667 mg Dextrose (Dextrose 50% Inj) 0 ml IV STAT PRN; Protocol PRN Reason: Hypoglycemia Protocol Dextrose (Glutose 15) 0 gm PO ONCE PRN; Protocol PRN Reason: Hypoglycemia Protocol Epoetin Brandon (Procrit) 10,000 unit IV TTS [facility] Last Admin: 05/08/18 11:25 Dose: 10,000 unit Fenofibrate (Tricor) 48 mg PO QPM [facility] Last Admin: 05/08/18 17:59 Dose: 48 mg Glucagon (Glucagen Diagnostic Kit) 0 mg IM STAT PRN; Protocol PRN Reason: Hypoglycemia Protocol Hydralazine HCl (Apresoline) 25 mg PO TID [facility] Last Admin: 05/09/18 13:30 Dose: 25 mg Piperacillin Sod/Tazobactam (Sod 2.25 gm/ Sodium Chloride) 100 mls @ 200 mls/hr IV Q8H [facility]; Protocol Last Admin: 05/07/18 05:48 Dose: 200 mls/hr Vancomycin HCl 1 gm/ Sodium (Chloride) 250 mls @ 166.7 mls/hr IVPB MWF [facility]; Protocol Last Admin: 05/09/18 10:06 Dose: 166.7 mls/hr Dextrose (Dextrose 5% In Water 1000 Ml) 1,000 mls @ 0 mls/hr IV .Q0M PRN; Protocol PRN Reason: Hypoglycemia Protocol Insulin Human Regular (Novolin R) 0 unit SC ACHS [facility]; Protocol Last Admin: 05/09/18 12:18 Dose: 1 unit Levothyroxine Sodium (Synthroid) 100 mcg PO DAILY@0630 [facility] Last Admin: 05/09/18 05:52 Dose: 100 mcg Metoprolol Succinate (Toprol Xl) 25 mg PO DAILY [facility] Last Admin: 05/09/18 10:07 Dose: 25 mg Prasugrel (Effient) 10 mg PO DAILY [facility] Last Admin: 05/01/18 09:37 Dose: 10 mg Prednisolone Acetate (Pred Forte 1% Opht Susp) 0 ml OU BID [facility] Last Admin: 05/09/18 10:07 Dose: 1 drop Rosuvastatin Calcium (Crestor) 10 mg PO HS [facility] Last Admin: 05/08/18 22:10 Dose: 10 mg Saccharomyces Boulardii (Florastor) 250 mg PO BID [facility] Last Admin: 05/09/18 10:07 Dose: 250 mg Sitagliptin Phosphate (Januvia) 25 mg PO DAILY [facility] Last Admin: 05/09/18 10:07 Dose: 25 mg - Labs Labs: 05/09/18 08:08 05/09/18 08:08 PT 12.7 SECONDS (9.7-12.2) H 05/01/18 02:14 INR 1.2 05/01/18 02:14 APTT 32 SECONDS (21-34) 05/01/18 02:14 - Constitutional Appears: Non-toxic, Chronically Ill - Head Exam Head Exam: NORMOCEPHALIC - Eye Exam Eye Exam: absent: Scleral icterus - ENT Exam ENT Exam: Mucous Membranes Dry - Neck Exam Neck Exam: absent: Lymphadenopathy - Respiratory Exam Respiratory Exam: Decreased Breath Sounds - Cardiovascular Exam Cardiovascular Exam: REGULAR RHYTHM - GI/Abdominal Exam GI & Abdominal Exam: Distended - Rectal Exam Rectal Exam: Deferred - Exam Exam: NORMAL INSPECTION - Extremities Exam Extremities Exam: absent: Pedal Edema - Back Exam Back Exam: absent: CVA tenderness (L), CVA tenderness (R) Assessment and Plan (1) Acute CHF Status: Acute (2) ESRD (end stage renal disease) Status: Acute (3) Pneumonia Status: Acute
--- NOTE | 2018-05-09 19:39 | CARD ---
APPROVED REPORT Date of service: 05/08/2018 EKG Measurement Heart [id number] [id number] [id number] <Conclusion> Normal sinus rhythm Voltage criteria for left ventricular hypertrophy Abnormal ECG
[2018-05-10] MEDS: Albuterol-Ipratrop 3 mg / 0.5 (3 ml) UD INH SCH ×5 (00:30→19:35)
[2018-05-10] MEDS: Levothyroxine 100 MCG TAB PO SCH (05:52)
[2018-05-10] MEDS: (Novolin R) Insulin Human Regular 100 units/ml vial SC SCH ×4 (07:54→21:54)
--- NOTE | 2018-05-10 09:40 | CP.PCM.PN ---
Subjective - Date & Time of Evaluation Date of Evaluation: 05/10/18 Time of Evaluation: 09:38 - Subjective Subjective: Seen at dialysis To UF 3300ml Afebrile course; feels better Repeat cultures negative HTN controlled not dyspneic leukocytosis same Objective - Vital Signs/Intake and Output Vital Signs (last 24 hours): Temp Pulse Resp BP Pulse Ox 98.3 F 90 20 120/56 L 96 05/10/18 07:00 05/10/18 07:00 05/10/18 07:00 05/10/18 07:00 05/10/18 07:00 Intake and Output: 05/10/18 05/10/18 06:59 18:59 Intake Total 100 Output Total 100 Balance 0 - Medications Medications: Current Medications Acetaminophen (Tylenol 325mg Tab) 650 mg PO Q6 PRN PRN Reason: Pain, moderate (4-7) Last Admin: 05/04/18 19:21 Dose: 650 mg Albuterol/Ipratropium (Duoneb 3 Mg/0.5 Mg (3 Ml) Ud) 3 ml INH RQ4 [facility] Last Admin: 05/10/18 07:50 Dose: 3 ml Amlodipine Besylate (Norvasc) 10 mg PO DAILY [facility] Last Admin: 05/09/18 10:07 Dose: 10 mg Benzonatate (Tessalon Perles) 100 mg PO TID [facility] Last Admin: 05/09/18 18:35 Dose: 100 mg Calcium Acetate (Phoslo) 667 mg PO TID [facility] Last Admin: 05/09/18 18:36 Dose: 667 mg Dextrose (Dextrose 50% Inj) 0 ml IV STAT PRN; Protocol PRN Reason: Hypoglycemia Protocol Dextrose (Glutose 15) 0 gm PO ONCE PRN; Protocol PRN Reason: Hypoglycemia Protocol Epoetin Brandon (Procrit) 10,000 unit IV TTS [facility] Last Admin: 05/08/18 11:25 Dose: 10,000 unit Fenofibrate (Tricor) 48 mg PO QPM [facility] Last Admin: 05/09/18 18:35 Dose: 48 mg Glucagon (Glucagen Diagnostic Kit) 0 mg IM STAT PRN; Protocol PRN Reason: Hypoglycemia Protocol Hydralazine HCl (Apresoline) 25 mg PO TID [facility] Last Admin: 05/09/18 18:35 Dose: 25 mg Piperacillin Sod/Tazobactam (Sod 2.25 gm/ Sodium Chloride) 100 mls @ 200 mls/hr IV Q8H [facility]; Protocol Last Admin: 05/07/18 05:48 Dose: 200 mls/hr Vancomycin HCl 1 gm/ Sodium (Chloride) 250 mls @ 166.7 mls/hr IVPB MWF [facility]; Protocol Last Admin: 05/09/18 10:06 Dose: 166.7 mls/hr Dextrose (Dextrose 5% In Water 1000 Ml) 1,000 mls @ 0 mls/hr IV .Q0M PRN; Protocol PRN Reason: Hypoglycemia Protocol Insulin Human Regular (Novolin R) 0 unit SC ACHS [facility]; Protocol Last Admin: 05/10/18 07:54 Dose: Not Given Levothyroxine Sodium (Synthroid) 100 mcg PO DAILY@0630 [facility] Last Admin: 05/10/18 05:52 Dose: 100 mcg Metoprolol Succinate (Toprol Xl) 25 mg PO DAILY [facility] Last Admin: 05/09/18 10:07 Dose: 25 mg Prasugrel (Effient) 10 mg PO DAILY [facility] Last Admin: 05/01/18 09:37 Dose: 10 mg Prednisolone Acetate (Pred Forte 1% Opht Susp) 0 ml OU BID [facility] Last Admin: 05/09/18 18:36 Dose: 1 drop Rosuvastatin Calcium (Crestor) 10 mg PO HS [facility] Last Admin: 05/09/18 22:19 Dose: 10 mg Saccharomyces Boulardii (Florastor) 250 mg PO BID [facility] Last Admin: 05/09/18 18:35 Dose: 250 mg Sitagliptin Phosphate (Januvia) 25 mg PO DAILY [facility] Last Admin: 05/09/18 10:07 Dose: 25 mg - Labs Labs: 05/09/18 08:08 05/09/18 08:08 PT 12.7 SECONDS (9.7-12.2) H 05/01/18 02:14 INR 1.2 05/01/18 02:14 APTT 32 SECONDS (21-34) 05/01/18 02:14 - Constitutional Appears: No Acute Distress, Chronically Ill - Head Exam Head Exam: ATRAUMATIC, NORMAL INSPECTION - Eye Exam Eye Exam: EOMI, Normal appearance - Neck Exam Neck Exam: Normal Inspection. absent: Tenderness - Respiratory Exam Respiratory Exam: Clear to Ausculation Bilateral, NORMAL BREATHING PATTERN - Cardiovascular Exam Cardiovascular Exam: REGULAR RHYTHM, +S1 - GI/Abdominal Exam GI & Abdominal Exam: Soft. absent: Tenderness - Extremities Exam Extremities Exam: Normal Inspection. absent: Tenderness - Neurological Exam Neurological Exam: Awake, CN II-XII Intact - Skin Skin Exam: Dry, Warm Assessment and Plan (1) ESRD (end stage renal disease) Status: Acute (2) CHF (congestive heart failure) Status: Acute (3) CMML (chronic myelomonocytic leukemia) Status: Acute (4) Chronic anemia Status: Acute (5) Leukocytosis Status: Acute (6) Pleural effusion Status: Acute - Assessment and Plan (Free Text) Plan: Dialysis TTS Would recommend AV access soon; cultures are negative, leukocytosis persistent
[2018-05-10] MEDS: PrednisoLONE 1% Opht Susp(5 ml) OU SCH ×2 (10:00→17:53)
[2018-05-10] MEDS: Metoprolol Succinate 25 mg XL Tab PO SCH (10:00)
[2018-05-10] MEDS: Saccharomyces Boulardi 250 mg Cap PO SCH ×2 (10:10→17:53)
[2018-05-10] MEDS: Epoetin Alfa 10,000 unit/ml Dialysis IV SCH (11:10)
[2018-05-10 11:34] LABS: HEMOGLOBIN 9.6 g/dL (11.0-16.0); MEAN CELL VOLUME 93.3 fL (81.0-99.0); MEAN CORPUSCULAR HEMOGLOBIN 30.3 pg (27.0-31.0); MEAN CORPUSCULAR HGB CONC 32.5 g/dL (33.0-37.0); MEAN PLATELET VOLUME 9.1 fL (7.2-11.7); RBC 3.17 Mil/uL (3.80-5.20); RED CELL DISTRIBUTION WIDTH 19.8 % (11.5-14.5); WHITE BLOOD COUNT 25.1 K/uL (4.8-10.8)
--- NOTE | 2018-05-10 13:40 | CP.PCM.PN ---
Subjective - Date & Time of Evaluation Date of Evaluation: 05/10/18 Time of Evaluation: 13:38 - Subjective Subjective: PGY-[address] Pawel Abernathy Patient seen and examined at bedside. No acute events overnight. Patient continues to have no complaints. She denies shortness of breath or fever. Tolerating dialysis - went for HD today. Denies chest pain, dizziness, headache, nausea, vomiting, diarrhea, constipation. Objective - Vital Signs/Intake and Output Vital Signs (last 24 hours): Temp Pulse Resp BP Pulse Ox 98.3 F 99 H 20 127/59 L 100 05/10/18 12:30 05/10/18 08:55 05/10/18 12:30 05/10/18 12:30 05/10/18 12:30 Intake and Output: 05/10/18 05/10/18 06:59 18:59 Intake Total 100 Output Total 100 Balance 0 - Medications Medications: Current Medications Acetaminophen (Tylenol 325mg Tab) 650 mg PO Q6 PRN PRN Reason: Pain, moderate (4-7) Last Admin: 05/04/18 19:21 Dose: 650 mg Albuterol/Ipratropium (Duoneb 3 Mg/0.5 Mg (3 Ml) Ud) 3 ml INH RQ4 [facility] Last Admin: 05/10/18 07:50 Dose: 3 ml Amlodipine Besylate (Norvasc) 10 mg PO DAILY [facility] Last Admin: 05/10/18 10:00 Dose: Not Given Benzonatate (Tessalon Perles) 100 mg PO TID [facility] Last Admin: 05/10/18 10:00 Dose: Not Given Calcium Acetate (Phoslo) 667 mg PO TID [facility] Last Admin: 05/10/18 10:00 Dose: Not Given Dextrose (Dextrose 50% Inj) 0 ml IV STAT PRN; Protocol PRN Reason: Hypoglycemia Protocol Dextrose (Glutose 15) 0 gm PO ONCE PRN; Protocol PRN Reason: Hypoglycemia Protocol Epoetin Brandon (Procrit) 10,000 unit IV TTS [facility] Last Admin: 05/10/18 11:10 Dose: 10,000 unit Fenofibrate (Tricor) 48 mg PO QPM [facility] Last Admin: 05/09/18 18:35 Dose: 48 mg Glucagon (Glucagen Diagnostic Kit) 0 mg IM STAT PRN; Protocol PRN Reason: Hypoglycemia Protocol Hydralazine HCl (Apresoline) 25 mg PO TID [facility] Last Admin: 05/10/18 10:10 Dose: Not Given Piperacillin Sod/Tazobactam (Sod 2.25 gm/ Sodium Chloride) 100 mls @ 200 mls/hr IV Q8H [facility]; Protocol Last Admin: 05/07/18 05:48 Dose: 200 mls/hr Vancomycin HCl 1 gm/ Sodium (Chloride) 250 mls @ 166.7 mls/hr IVPB MWF [facility]; Protocol Last Admin: 05/09/18 10:06 Dose: 166.7 mls/hr Dextrose (Dextrose 5% In Water 1000 Ml) 1,000 mls @ 0 mls/hr IV .Q0M PRN; Protocol PRN Reason: Hypoglycemia Protocol Insulin Human Regular (Novolin R) 0 unit SC ACHS [facility]; Protocol Last Admin: 05/10/18 07:54 Dose: Not Given Levothyroxine Sodium (Synthroid) 100 mcg PO DAILY@0630 [facility] Last Admin: 05/10/18 05:52 Dose: 100 mcg Metoprolol Succinate (Toprol Xl) 25 mg PO DAILY [facility] Last Admin: 05/10/18 10:00 Dose: Not Given Prasugrel (Effient) 10 mg PO DAILY [facility] Last Admin: 05/01/18 09:37 Dose: 10 mg Prednisolone Acetate (Pred Forte 1% Opht Susp) 0 ml OU BID [facility] Last Admin: 05/10/18 10:00 Dose: Not Given Rosuvastatin Calcium (Crestor) 10 mg PO HS [facility] Last Admin: 05/09/18 22:19 Dose: 10 mg Saccharomyces Boulardii (Florastor) 250 mg PO BID [facility] Last Admin: 05/10/18 10:10 Dose: Not Given Sitagliptin Phosphate (Januvia) 25 mg PO DAILY [facility] Last Admin: 05/10/18 10:00 Dose: Not Given - Labs Labs: 05/10/18 11:13 05/09/18 08:08 PT 12.7 SECONDS (9.7-12.2) H 05/01/18 02:14 INR 1.2 05/01/18 02:14 APTT 32 SECONDS (21-34) 05/01/18 02:14 - Head Exam Head Exam: ATRAUMATIC, NORMAL INSPECTION - Eye Exam Eye Exam: EOMI, Normal appearance - ENT Exam ENT Exam: Mucous Membranes Moist - Respiratory Exam Respiratory Exam: Clear to Ausculation Bilateral, NORMAL BREATHING PATTERN. absent: Rhonchi, Wheezes - Cardiovascular Exam Cardiovascular Exam: REGULAR RHYTHM, +S1, +S2 - GI/Abdominal Exam GI & Abdominal Exam: Soft, Normal Bowel Sounds. absent: Tenderness - Extremities Exam Extremities Exam: Normal Inspection. absent: Pedal Edema, Tenderness - Neurological Exam Neurological Exam: Alert, Awake, Oriented x3 - Psychiatric Exam Psychiatric exam: Normal Affect, Normal Mood Assessment and Plan - Assessment and Plan (Free Text) Assessment: 83yo female PMH ESRD on HD TTS, COPD, PVD , CHF with preserved EF, HTN, myelodyplastic syndrome, hypothyroidism and recent pneumonia who is admitted for shortness of breath with pleural effusions. Due to positive blood cultures, Pe rmacath was replaced. Persistent leukocytosis - WBC stable. Repeat blood cultures negative On Vanc/Zosyn. Pending AVF placement for HD. Plan: Blood Cultures Growing Staph Aureus/Coag Neg Staph + Leukocytosis - Repeat cultures have been negative and leukocytosis is stable. - Surgery consulted: Dr. Plummer - help appreciated - Permacath replaced 05/04 as potential nidus for infection - CXR confirmed correct placement, OK for HD use - Per surgery, site did not appear infected in the OR - Repeat cultures 05/04 showing no growth x72 hours, though WBC count continues to rise. Repeating cultures and pro-silva. - Breo discontinued due to increasing leukocytosis ESRD on HD TTS - AVF creation if WBC stable, as repeat blood cultures are negative x72 hours --> Patient should have AVF placed, but we are just waiting for official clearan ce from the patient's personal rn international, Dr. Day. Once Dr. Day gives the okay, patient should have AVF placed with vascular surgery. - Nephro consulted: Dr. Langston - recs appreciated - Recommending AVF creation soon - HD restarted on TTS schedule - EPO started for persistent decreasing Hgb - Per surgery, L arm restrict for AVF creation after bacteremia clears. Patient to use Permacath until then. - renally dose medication Thrombocytopenia - Hx CMML, platelets had been decreasing, but now stable - Plts 97 on admission. 65 05/10 - Serotonin release assay negative for HIT - continue to hold Prasugrel - monitor with AM labs Pleural effusions with exacerbation of CHF History of COPD - CXR (05/01): Interval patchy coalescent airspace opacities medial right lung base confluent areas of pulmonary venous congestion and pulmonary edema are favored. A concomitant patchy infiltrate-change here is not excluded. Interval subsegmental atelectasis with or without fissural fluid left mid lung zone. Asymmetrically elevated left hemidiaphragm with left basal compressive atelectasis and left inferolateral pleural effusion/thickening re-noted. Concomitant left subsegmental infiltrate here not excluded No definite interval change at the left lung base noted. - CT Chest (05/02): interval decrease in L pleural effusion and near complete resolution of R pleural effusion. residual multifocal atelectatsis in L lung and RLL, no evidence of pneumonia. mild cardiomegaly and small pericardial effusion. - CXR (05/07): Left lower lobe opacity. Rule out pneumonia. Small left pleural effusion. Otherwise no change. - CXR does appear much improved from prior film - Pulm consulted: Dr. Hernandez - help appreciated - ID consulted: Dr. Rodriguez - help appreciated - WBC 17.7 on admission --> 23.6 05/07 - Mycoplasma neg, Flu A/B neg, Legionella neg - Blood Cx (05/01): gram positive cocci in clusters - 1/2 cultures growing Staph A and Coag neg Staph - taken separately from two diff sites - Blood Cx 05/04 negative FINAL. Repeat blood Cx 05/07 negative at 24 hours. - Nares MRSA screen (05/01) neg - Duonebs q4 [facility] - Vancomycin 1gm IVPB MWF from daily 05/04 (started 05/01) - Trough 05/04 7.0 - Zosyn 2.25gm IV q8 (started 05/01) - Tessalon Perles 100mg po tid - pulm toilet - Repeat blood cultures negative x24 hours Anemia of Chronic Disease - H&H 7.4/22.5 on admission - Iron studies: Fe 78, TIBC 223, %sat 35, Ferritin 775.0 - transfused 2u PRBC with HD (05/01), Hb responded appropriately (7.0 -> 10.8) - monitor with AM labs - transfuse prn Diastolic CHF, chronic - BNP 6830 on admission - EKG: NSR@91 - elevate head of bed - Strict I&Os - Fluid restriction Hypertension - home Norvasc 10mg PO daily - home Metoprolol XL 25mg PO daily - Hydralazine 25mg po tid Hyperlipidemia - home Crestor 10mg PO HS - home Fenofibrate 48mg PO qPM Diabetes Mellitus - home Januvia 25mg PO daily - Accuchecks ACHS - ISS - hypoglycemia protocol Hypothyroidism - home Levothyroxine 100mcg PO daily History of myelodysplastic syndrome/leukemia - Heme/Onc consulted: Dr. Lopez Day - outpatient physician - help appreciated - WBC 17.7 on admission, INR 1.2. WBC 23.6 today - home Prasugrel held 2/2 thrombocytopenia PPX: - DVT: home Prasugrel held for increased bleed risk from thrombocytopenia, SCDs - GI: Florastor 250mg PO BID - Diet: Heart healthy diet, 2g Na - Palliative Care consult for goals of care discussion as this is her third hospitalization in as many months - Tylenol 650mg po q6 prn for headache/pain Dispo: SW referral for d/c. PT eval for d/c. Patient needs to have chair back at HD before discharge. Assessment and Plan d/w Dr. Pawel Al, PGY-1
[2018-05-11] MEDS: Albuterol-Ipratrop 3 mg / 0.5 (3 ml) UD INH SCH (01:25)
[2018-05-11 01:36] VITALS: O2SAT 99
[2018-05-11] MEDS: Levothyroxine 100 MCG TAB PO SCH (05:44)
[2018-05-11 07:04] LABS: HEMOGLOBIN 9.4 g/dL (11.0-16.0); MEAN CELL VOLUME 92.7 fL (81.0-99.0); MEAN CORPUSCULAR HEMOGLOBIN 30.2 pg (27.0-31.0); MEAN CORPUSCULAR HGB CONC 32.5 g/dL (33.0-37.0); MEAN PLATELET VOLUME 9.1 fL (7.2-11.7); RBC 3.12 Mil/uL (3.80-5.20); RED CELL DISTRIBUTION WIDTH 21.1 % (11.5-14.5); WHITE BLOOD COUNT 23.1 K/uL (4.8-10.8)
[2018-05-11 07:18] LABS: ALB/GLOB RATIO 0.8 (1.0-2.1); ALBUMIN 3.5 g/dL (3.5-5.0); CALCIUM 8.6 mg/dl (8.6-10.4)
[2018-05-11] MEDS: (Novolin R) Insulin Human Regular 100 units/ml vial SC SCH ×2 (07:39→12:23)
[2018-05-11 08:34] VITALS: PULSE 110; TEMP 98.7
[2018-05-11] MEDS: PrednisoLONE 1% Opht Susp(5 ml) OU SCH (10:09)
[2018-05-11] MEDS: Metoprolol Succinate 25 mg XL Tab PO SCH (10:09)
[2018-05-11] MEDS: Saccharomyces Boulardi 250 mg Cap PO SCH (10:09)
[2018-05-11 10:13] VITALS: BP 121/67
[2018-05-11] MEDS ORDERED: Influenza Vaccine 60 MCG/0.5 ML SYR (3 yr & up) IM ONE (12:00)
--- NOTE | 2018-05-11 14:45 | CP.PCM.PN ---
Subjective - Date & Time of Evaluation Date of Evaluation: 05/11/18 Time of Evaluation: 14:42 - Subjective Subjective: stable dialysis 05/10 follow up cultures negative much less dyspneic Objective - Vital Signs/Intake and Output Vital Signs (last 24 hours): Temp Pulse Resp BP Pulse Ox 98.7 F 110 H 20 121/67 99 05/11/18 08:33 05/11/18 08:33 05/11/18 08:33 05/11/18 10:12 05/11/18 08:33 - Medications Medications: Current Medications Acetaminophen (Tylenol 325mg Tab) 650 mg PO Q6 PRN PRN Reason: Pain, moderate (4-7) Last Admin: 05/04/18 19:21 Dose: 650 mg Amlodipine Besylate (Norvasc) 10 mg PO DAILY [facility] Last Admin: 05/11/18 10:09 Dose: 10 mg Benzonatate (Tessalon Perles) 100 mg PO TID [facility] Last Admin: 05/11/18 13:26 Dose: 100 mg Calcium Acetate (Phoslo) 667 mg PO TID [facility] Last Admin: 05/11/18 13:26 Dose: 667 mg Dextrose (Dextrose 50% Inj) 0 ml IV STAT PRN; Protocol PRN Reason: Hypoglycemia Protocol Dextrose (Glutose 15) 0 gm PO ONCE PRN; Protocol PRN Reason: Hypoglycemia Protocol Epoetin Brandon (Procrit) 10,000 unit IV TTS [facility] Last Admin: 05/10/18 11:10 Dose: 10,000 unit Fenofibrate (Tricor) 48 mg PO QPM [facility] Last Admin: 05/10/18 17:52 Dose: 48 mg Glucagon (Glucagen Diagnostic Kit) 0 mg IM STAT PRN; Protocol PRN Reason: Hypoglycemia Protocol Hydralazine HCl (Apresoline) 25 mg PO TID [facility] Last Admin: 05/11/18 13:26 Dose: 25 mg Piperacillin Sod/Tazobactam (Sod 2.25 gm/ Sodium Chloride) 100 mls @ 200 mls/hr IV Q8H [facility]; Protocol Last Admin: 05/07/18 05:48 Dose: 200 mls/hr Vancomycin HCl 1 gm/ Sodium (Chloride) 250 mls @ 166.7 mls/hr IVPB MWF [facility]; Protocol Last Admin: 05/11/18 10:08 Dose: 166.7 mls/hr Dextrose (Dextrose 5% In Water 1000 Ml) 1,000 mls @ 0 mls/hr IV .Q0M PRN; Protocol PRN Reason: Hypoglycemia Protocol Insulin Human Regular (Novolin R) 0 unit SC ACHS [facility]; Protocol Last Admin: 05/11/18 12:23 Dose: 2 unit Levothyroxine Sodium (Synthroid) 100 mcg PO DAILY@0630 [facility] Last Admin: 05/11/18 05:44 Dose: 100 mcg Metoprolol Succinate (Toprol Xl) 25 mg PO DAILY [facility] Last Admin: 05/11/18 10:09 Dose: 25 mg Prasugrel (Effient) 10 mg PO DAILY [facility] Last Admin: 05/01/18 09:37 Dose: 10 mg Prednisolone Acetate (Pred Forte 1% Opht Susp) 0 ml OU BID [facility] Last Admin: 05/11/18 10:09 Dose: 1 drop Rosuvastatin Calcium (Crestor) 10 mg PO HS [facility] Last Admin: 05/10/18 21:55 Dose: 10 mg Saccharomyces Boulardii (Florastor) 250 mg PO BID [facility] Last Admin: 05/11/18 10:09 Dose: 250 mg Sitagliptin Phosphate (Januvia) 25 mg PO DAILY [facility] Last Admin: 05/11/18 10:09 Dose: 25 mg - Labs Labs: 05/11/18 06:56 05/11/18 06:56 PT 12.7 SECONDS (9.7-12.2) H 05/01/18 02:14 INR 1.2 05/01/18 02:14 APTT 32 SECONDS (21-34) 05/01/18 02:14 - Constitutional Appears: No Acute Distress, Chronically Ill - Head Exam Head Exam: ATRAUMATIC, NORMAL INSPECTION - Eye Exam Eye Exam: EOMI, Normal appearance - Neck Exam Neck Exam: Normal Inspection. absent: Tenderness - Respiratory Exam Respiratory Exam: Clear to Ausculation Bilateral, NORMAL BREATHING PATTERN - Cardiovascular Exam Cardiovascular Exam: REGULAR RHYTHM, +S1 - GI/Abdominal Exam GI & Abdominal Exam: Soft. absent: Tenderness - Extremities Exam Extremities Exam: Normal Inspection. absent: Tenderness - Neurological Exam Neurological Exam: Awake, CN II-XII Intact - Skin Skin Exam: Dry, Warm Assessment and Plan (1) ESRD (end stage renal disease) Status: Acute (2) CHF (congestive heart failure) Status: Acute (3) CMML (chronic myelomonocytic leukemia) Status: Acute (4) Chronic anemia Status: Acute (5) Leukocytosis Status: Acute (6) Pleural effusion Status: Acute - Assessment and Plan (Free Text) Plan: Same dialysis TTS IV vanco x 2 more weeks AV access likely done as outpatient Possible discharge soon
--- NOTE | 2018-05-11 15:06 | CP.PCM.DIS ---
Provider - Provider Date of Admission: 05/01/18 03:50 Attending physician: Rafael Finn MD Consults: 05/01/18 05:42 Physician Consult Routine Comment: Consulting Provider: Tj Hernandez Consulting Physician: Tj Hernandez Reason for Consult: shortness of breath Physician Consult Routine Comment: Consulting Provider: Kem Langston Consulting Physician: Kem Langston Reason for Consult: hx of ESRD. on dialysis 05/01/18 07:16 Social Work Referral Routine Comment: Gabriela Coto Physician Instructions: Reason For Exam: Gabriela 9 05/02/18 08:45 Infectious Disease Consult Routine Comment: Consulting Provider: Lamberto Rodriguez Consulting Physician: Lamberto Rodriguez Reason for Consult: recurrent pneumonia 05/02/18 08:46 Palliative Care Consult Routine Comment: multipl hospitalizations for pnuemonia Consulting Provider: Gayle Reveles Physician Instructions: Reason For Exam: goals of care 05/03/18 14:53 Hematology Oncology Consult Routine Comment: Consulting Provider: Avel Day Consulting Physician: Avel Day Reason for Consult: Hx CLL, thrombocytopenia 05/03/18 14:58 Vascular Surgery Routine Comment: Consulting Provider: Indra Plummre Jr. Physician Instructions: Reason For Exam: AVF formation, Permacath infection Time Spent in preparation of Discharge (in minutes): 45 Diagnosis - Discharge Diagnosis (1) Acute CHF Status: Acute (2) Pneumonia Status: Acute (3) CKD (chronic kidney disease) stage 5, GFR less than 15 ml/min Status: Chronic Hospital Course - Lab Results Lab Results: Micro Results 05/07/18 12:20 Blood Blood Culture - Preliminary NO GROWTH AFTER 4 DAYS 05/07/18 10:15 Blood Blood Culture - Preliminary NO GROWTH AFTER 4 DAYS 05/04/18 05:45 Blood-Venous Blood Culture - Final NO GROWTH AFTER 5 DAYS 05/04/18 05:45 Blood-Venous Gram Stain - Final TEST NOT PERFORMED 05/04/18 08:00 Blood-Venous Blood Culture - Final NO GROWTH AFTER 5 DAYS 05/04/18 08:00 Blood-Venous Gram Stain - Final TEST NOT PERFORMED 05/01/18 07:59 Blood Blood Culture - Final NO GROWTH AFTER 5 DAYS 05/01/18 07:59 Blood Gram Stain - Final TEST NOT PERFORMED 05/01/18 04:34 Blood S.aureus & Coag-Neg Staph PNA FISH - Final 05/01/18 04:34 Blood Blood Culture - Final Coagulase Neg Staphylococcus 05/01/18 04:34 Blood Gram Stain - Final 05/01/18 06:47 Naris MRSA Culture (Admit) - Final MRSA NOT DETECTED Most Recent Lab Values WBC 23.1 K/uL (4.8-10.8) H 05/11/18 06:56 RBC 3.12 Mil/uL (3.80-5.20) L 05/11/18 06:56 Hgb 9.4 g/dL (11.0-16.0) L 05/11/18 06:56 Hct 28.9 % (34.0-47.0) L 05/11/18 06:56 MCV 92.7 fL (81.0-99.0) 05/11/18 06:56 MCH 30.2 pg (27.0-31.0) 05/11/18 06:56 MCHC 32.5 g/dL (33.0-37.0) L 05/11/18 06:56 RDW 21.1 % (11.5-14.5) H 05/11/18 06:56 Plt Count 57 K/uL (130-400) L 05/11/18 06:56 MPV 9.1 fL (7.2-11.7) 05/11/18 06:56 Neut % (Auto) 53.1 % (50.0-75.0) 05/09/18 08:08 Lymph % (Auto) 13.6 % (20.0-40.0) L 05/09/18 08:08 [place] % (Auto) 32.1 % (0.0-10.0) H 05/09/18 08:08 Eos % (Auto) 1.0 % (0.0-4.0) 05/09/18 08:08 Baso % (Auto) 0.2 % (0.0-2.0) 05/09/18 08:08 Neut # (Auto) 11.9 K/uL (1.8-7.0) H 05/09/18 08:08 Lymph # (Auto) 3.1 K/uL (1.0-4.3) 05/09/18 08:08 [place] # (Auto) 7.2 K/uL (0.0-0.8) H 05/09/18 08:08 Eos # (Auto) 0.2 K/uL (0.0-0.7) 05/09/18 08:08 Baso # (Auto) 0.0 K/uL (0.0-0.2) 05/09/18 08:08 Neutrophils % (Manual) 57 % (50-75) 05/09/18 08:08 Band Neutrophils % 1 % (0-2) 05/03/18 07:17 Lymphocytes % (Manual) 11 % (20-40) L 05/09/18 08:08 Reactive Lymphs % 3 % (0-0) H 05/03/18 07:17 Monocytes % (Manual) 30 % (0-10) H 05/09/18 08:08 Eosinophils % (Manual) 1 % (0-4) 05/09/18 08:08 Basophils % (Manual) 1 % (0-2) 05/04/18 08:00 Myelocytes % 1 % (0-0) H 05/09/18 08:08 Platelet Estimate Decreased (NORMAL) L 05/09/18 08:08 Large Platelets Present 05/09/18 08:08 Giant Platelets Present 05/08/18 07:41 Polychromasia Slight 05/08/18 07:41 Hypochromasia (manual) Slight 05/09/18 08:08 Poikilocytosis (manual Slight 05/09/18 08:08 Anisocytosis (manual) Slight 05/09/18 08:08 Microcytosis (manual) Slight 05/09/18 08:08 Macrocytosis (manual) Slight 05/09/18 08:08 Target Cells Slight 05/09/18 08:08 Tear Drop Cells Slight 05/09/18 08:08 Ovalocytes Slight 05/07/18 07:30 Tony Cells Slight 05/09/18 08:08 Retic Count 1.3 % (0.5-1.5) 05/04/18 08:24 PT 12.7 SECONDS (9.7-12.2) H 05/01/18 02:14 INR 1.2 05/01/18 02:14 APTT 32 SECONDS (21-34) 05/01/18 02:14 Sodium 133 mmol/L (132-148) 05/11/18 06:56 Potassium 4.2 mmol/L (3.6-5.2) 05/11/18 06:56 Chloride 96 mmol/L (98-107) L 05/11/18 06:56 Carbon Dioxide 30 mmol/L (22-30) 05/11/18 06:56 Anion Gap 12 (10-20) 05/11/18 06:56 BUN 25 mg/dL (7-17) H 05/11/18 06:56 Creatinine 3.8 mg/dL (0.7-1.2) H 05/11/18 06:56 Est GFR ( Amer) 14 05/11/18 06:56 Est GFR (Non-Af Amer) 11 05/11/18 06:56 POC Glucose (mg/dL) 210 mg/dL (65-110) H 05/11/18 11:37 Random Glucose 134 mg/dL (65-105) H 05/11/18 06:56 Calcium 8.6 mg/dl (8.6-10.4) 05/11/18 06:56 Phosphorus 4.6 mg/dL (2.5-4.5) H 05/11/18 06:56 Magnesium 2.1 mg/dL (1.6-2.3) 05/11/18 06:56 Iron 78 ug/dL (37-170) 05/01/18 08:08 TIBC 223 ug/dL (250-450) L 05/01/18 08:08 % Saturation 35 (20-55) 05/01/18 08:08 Ferritin 775.0 ng/mL 05/01/18 08:08 Total Bilirubin 0.4 mg/dL (0.2-1.3) 05/11/18 06:56 AST 19 U/L (14-36) 05/11/18 06:56 ALT 7 U/L (9-52) L 05/11/18 06:56 Alkaline Phosphatase 49 U/L (38-126) 05/11/18 06:56 Lactate Dehydrogenase 519 U/L (313-618) 05/04/18 08:00 Total Creatine Kinase < 20 U/L (30-135) L 05/08/18 07:41 CK-MB (Mass) < 0.22 ng/mL (0.0-3.38) 05/08/18 07:41 Troponin I 0.0140 ng/mL (0.00-0.120) 05/08/18 07:41 NT-Pro-B Natriuret Pep 6830 pg/mL (0-900) H 05/01/18 02:14 Total Protein 8.1 g/dL (6.3-8.3) 05/11/18 06:56 Albumin 3.5 g/dL (3.5-5.0) 05/11/18 06:56 Globulin 4.5 gm/dL (2.2-3.9) H 05/11/18 06:56 Albumin/Globulin Ratio 0.8 (1.0-2.1) L 05/11/18 06:56 UF Heparin Interp Negative (Negative) 05/02/18 14:14 Vitamin B12 702 pg/mL (239-931) 05/04/18 08:00 Procalcitonin 0.60 NG/ML (0.19-0.49) H 05/07/18 10:49 Vancomycin Trough 7.0 ug/mL (5.0-10.0) 05/04/18 08:45 NOMAN UFH Low Dose 0.1 0 % Release 05/02/18 14:14 NOMAN UFH Low Dose 0.5 0 % Release 05/02/18 14:14 NOMAN UFH High Dose 100 0 % Release 05/02/18 14:14 Influenza Typ A,B (EIA) Negative for flu a/b (NEGATIVE) 05/01/18 02:16 Ur L.pneumophila Ag Negative (NEGATIVE) 05/02/18 00:13 Mycoplasma pneumon IgM Negative (NEGATIVE) 05/01/18 08:08 Blood Type A POSITIVE 05/01/18 13:25 Antibody Screen Positive 05/01/18 13:25 Antibody Identification Non Specific Antibody 05/01/18 13:25 Elution Negative 05/01/18 13:25 BRYAN, Poly Interpret Positive (NEGATIVE) H 05/01/18 13:25 - Hospital Course Hospital Course: PGY-[address] Abernathy Initial HPI HPI: Patient is a 83 year old female with history of ESRD on HD TTS, COPD, PVD ,CHF with preserved EF, HTN, myelodyplastic syndrome, hypothyroidism and recent pneumonia who presents with daughters for complaints of shortness of breath, described as inability to get enough air associated with chest tightness that started at 11pm last night. She states her shortness of breath is worsened if she lies flat. Daughters at bedside state that she usually sleeps propped up. She states that prior to her episode she experienced some "heaviness in her stomach and chest" at about 10:30pm. She denies experiencing any pain in her chest or abdomen. She also states she has been spitting up white foamy material for 3 hours prior to her symptoms started. She denies seeing any blood in the sputum. She denies nausea, vomiting, stating she was able to eat a good dinner last night. She states she felt similarly when she had pneumonia recently. She also admits to some nasal congestion as well, denies sore throat, frontal headache. She denies fevers, chills, headache, dizziness, chest pain, palpitations, nausea, vomiting, diarrhea, constipation. She states her stools remains brown, denies black or bloody stools. She continues to urinate a very small amount, denies dysuria, denies leg pain or swelling. Patient was recently admitted here for similar symptoms. Hospital Course This is a patient with history for COPD and CHF in addition to myelodysplastic syndrome and ESRD. Patient was initially hospitalized with acute shortness of breath and treated as COPD/CHF exacerbation secondary to pneumonia, though after further evaluation the initial CXR most likely represented more pleural effusion from CHF fluid overload. - Pulm was consulted, Dr. Hernandez and ID was consulted, Dr. Rodriguez for help on this case. She was started on IV Vanc/Zosyn and finished initial antibiotic course, as well as treated with diuretics for symptomatic treatment of CHF. After several days of treatment of her pulmonary complaints, patient no longer complained of shortness of breath worse than her baseline, and she continued to have no complaints throughout her hospital stay. She was resumed on her normal TTS HD schedule. Patient did have initial blood cultures which resulted coag negative staph. Patient was treated with antibiotics as mentioned. On 05/07 patient had were right IJ permacath exchanged with vascular surgery, Dr. Plummer. According to surgery, the original permacath did not appear at all infected upon removal. Patient had persistent leukocytosis throughout her hospital course. At one point her WBC count did increase and then stabilize. Repeat blood cultures were negative and continued repeat cultures remained negative. We had hoped to have patient go for AVF creation with vascular during her hospital stay, however her WBCs were rising at that time. Her leukocytosis stabilized, and we did attempt to contact the patient's Jawbone Puller Dr. Enrique, however Dr. Enrique was away and not available to provide recommendations at that time. As such, with the patient being stable, she has been discharged with plans to follow up with Dr. Enrique as well as to follow up with Dr. Plummer on 05/18 for AVF creation. She is being discharged with plans to resume HD at [facility] on Saturday 05/12. Imaging - CXR (05/01): Interval patchy coalescent airspace opacities medial right lung base confluent areas of pulmonary venous congestion and pulmonary edema are favored. A concomitant patchy infiltrate-change here is not excluded. Interval subsegmental atelectasis with or without fissural fluid left mid lung zone. Asymmetrically elevated left hemidiaphragm with left basal compressive atelectasis and left inferolateral pleural effusion/thickening re-noted. Concom itant left subsegmental infiltrate here not excluded No definite interval change at the left lung base noted. - CT Chest (05/02): interval decrease in L pleural effusion and near complete resolution of R pleural effusion. residual multifocal atelectatsis in L lung and RLL, no evidence of pneumonia. mild cardiomegaly and small pericardial effusion. - CXR (05/07): Left lower lobe opacity. Rule out pneumonia. Small left pleural effusion. Otherwise no change. - CXR does appear much improved from prior film This is just a summary of the events that took place during this patient's hospital course. For details please see complete medical records. Discharge Exam - Head Exam Head Exam: ATRAUMATIC, NORMAL INSPECTION - Eye Exam Eye Exam: EOMI, Normal appearance - ENT Exam ENT Exam: Mucous Membranes Moist - Respiratory Exam Respiratory Exam: Rhonchi, NORMAL BREATHING PATTERN. absent: Wheezes, Respiratory Distress Additional comments: Faint rhonchi - Cardiovascular Exam Cardiovascular Exam: REGULAR RHYTHM, +S1, +S2 - GI/Abdominal Exam GI & Abdominal Exam: Soft. absent: Tenderness - Extremities Exam Extremities exam: normal inspection - Neurological Exam Neurological exam: Alert, CN II-XII Intact, Oriented x3 - Psychiatric Exam Psychiatric exam: Normal Affect, Normal Mood - Skin Skin Exam: Dry, Intact Discharge Plan - Discharge Medications Prescriptions: Albuterol Sulfate [Proair Hfa] 0.09 mg IH Q6 PRN #1 inh PRN Reason: Cough amLODIPine [Norvasc] 10 mg PO DAILY #30 tab Benzonatate [Tessalon Perles] 100 mg PO TID #90 sgl Calcium Acetate [Phoslo] 667 mg PO TID 30 Days #90 tab Fenofibrate [Tricor] 48 mg PO DAILY #30 tab Fluticasone/Vilanterol 100/25 [Breo Ellipta 100-25 MCG INH] 1 puff INH RQD #1 dsk hydrALAZINE [Apresoline] 25 mg PO TID #90 tab Levothyroxine [Synthroid] 100 mcg PO DAILY@0630 #30 tab Metoprolol Succinate XL [Toprol XL] 25 mg PO DAILY #30 tab Rosuvastatin Calcium [Crestor] 10 mg PO DAILY #30 tab SITagliptin [Januvia] 25 mg PO DAILY PRN #30 tab PRN Reason: high blood sugar Vancomycin 1 gm/NS 200 ml 1 gm IVPB TTS #6 bag - Follow Up Plan Condition: STABLE Disposition: HOME/ ROUTINE Instructions: Hemodialysis, Sitagliptin, Heart Healthy Diet, Dialysis Diet , Heart Failure, Adult (DC), Pneumonia, Adult (DC), Diabetes Diet , Albuterol, Benzonatate, Fluticasone and Vilanterol, Calcium Acetate, Hydralazine, Levothyroxine, Metoprolol, Rosuvastatin, Fenofibrate and Derivatives, Vancomycin, End Stage Kidney Disease Additional Instructions: Patient is cleared for discharge per Dr. Pawel Abernathy Patient is to continue taking the following medications. Prescriptions have been provided in your chart. -Tessalon Perles 100 mg 1 tab by mouth daily at 8am -Breo Ellipta 100/25 one puff inhaled daily at 8am -Hydralazine 25 mg one tab by mouth three times per day at 8am, 2pm, and 8pm -Proair 1 puff as needed for symptoms -Norvasc 10 mg 1 tab by mouth daily at 8am -Phoslo 667 mg by mouth three times per day at 8am, 2pm, and 8pm -Tricor 48 mg 1 tab by mouth daily at 8am -Synthroid 100 mcg 1 tab by mouth daily at 8am -Metoprolol 25 mg 1 tab by mouth daily at 2pm -Crestor 20 mg 1 tab by mouth before bedtime -Januvia 20 mg 1 tab by mouth daily at 8am In addition to these medications, the patient will continued with IV Vancomycin given during dialysis for 2 weeks, for a total of 6 additional doses. The prescription for Vancomycin has been sent to [facility]. Patient has accommodations arranged to resume dialysis tomorrow at [facility] on [facility]. Patient is to follow up with her Jawbone Puller, Dr. Day, on the week of 05/25 for management of her Myelodysplastic syndrome. Patient to follow up with Dr. Plummer - Dr. Plummer will plan follow-up appointment In addition, please make sure to follow up with your primary care doctor for coordination of health care. Patient will require home care services for the management of her CHF/COPD Please return to ER if symptoms recur or worsen. Referrals: Indra Plummer Jr., MD [Staff Provider] - Fuentes Clements MD [Staff Provider] - 05/18/18 Avel Day MD [Staff Provider] - 1 Week
--- NOTE | 2018-05-14 13:05 | VASCLAB ---
Date of service: 05/11/2018 PROCEDURE: Upper Extremity Venous Duplex Exam HISTORY: pt with shortness of breath PRIORS: None. TECHNIQUE: Bilateral upper extremity, internal jugular, subclavian, axillary, brachial, ulnar, radial, basilic and upper cephalic veins were evaluated. Flow was assessed with color Doppler, compressibility, assessment of phasic flow and augmentation response. Report prepared by Lamberto Arias, BS, RVT FINDINGS: RIGHT: 1. Internal Jugular: 1.1. Compressibility - Fully compressible: Thrombus - None : Flow - Phasic: Augmentation -Normal: Reflux - None. 2. Subclavian: 2.1. Compressibility - Fully compressible: Thrombus - None : Flow - Phasic: Augmentation -Normal: Reflux - None. 3. Axillary: 3.1. Compressibility - Fully compressible: Thrombus - None : Flow - Phasic: Augmentation -Normal: Reflux - None. 4. Brachial: 4.1. Compressibility - Fully compressible: Thrombus - None: Flow - Phasic: Augmentation -Normal: Reflux - None. 5. Ulnar: 5.1. Compressibility - Fully compressible: Thrombus - None: Flow - Phasic: Augmentation -Normal: Reflux - None. 6. Radial: 6.1. Compressibility - Fully compressible: Thrombus - None: Flow - Phasic: Augmentation - Normal: Reflux - None. 7. Cephalic: 7.1. Compressibility - Fully compressible: Thrombus - None: Flow - Phasic: Augmentation -Normal: Reflux - None. 8. Basilic: 8.1. Compressibility - Fully compressible: Thrombus - None: Flow - Phasic: Augmentation -Normal: Reflux - None. LEFT: 1. Internal Jugular: 1.1. Compressibility - Fully compressible: Thrombus - None : Flow - Phasic: Augmentation -Normal: Reflux - None. 2. Subclavian: 2.1. Compressibility - Fully compressible: Thrombus - None : Flow - Phasic: Augmentation -Normal: Reflux - None. 3. Axillary: 3.1. Compressibility - Fully compressible: Thrombus - None : Flow - Phasic: Augmentation -Normal: Reflux - None. 4. Brachial: 4.1. Compressibility - Fully compressible: Thrombus - None: Flow - Phasic: Augmentation -Normal: Reflux - None. 5. Ulnar: 5.1. Compressibility - Fully compressible: Thrombus - None: Flow - Phasic: Augmentation -Normal: Reflux - None. 6. Radial: 6.1. Compressibility - Fully compressible: Thrombus - None: Flow - Phasic: Augmentation - Normal: Reflux - None. 7. Cephalic: 7.1. Compressibility - Fully compressible: Thrombus - None: Flow - Phasic: Augmentation -Normal: Reflux - None. 8. Basilic: 8.1. Compressibility - Fully compressible: Thrombus - None: Flow - Phasic: Augmentation -Normal: Reflux - None. OTHER FINDINGS: Right: None. Left: None. IMPRESSION: Right: No evidence of vein thrombosis of the right upper extremity with excellent venous flow. Normal valve function noted of the right side. Left: No evidence of vein thrombosis of the left upper extremity with excellent venous flow. Normal valve function noted of the left side.
== END 2018-05-11 16:15 | disposition home or self-care (01) | DRG 853 ==
LOC: C.ER 01:17 → C.9E 03:50 → C.9I 05:47 → C.6T 05-02 05:56
PROVIDERS: ADMIT Family Medicine; ATTEND Family Medicine
PROC: 5A1D70Z Performance of Urinary Filtration, Intermittent, Less than 6 Hours Per Day (ICD-10-PCS; 2018-05-01)
PROC: 30233N1 Transfusion of Nonautologous Red Blood Cells into Peripheral Vein, Percutaneous Approach (ICD-10-PCS; 2018-05-01)
PROC: 02HV33Z Insertion of Infusion Device into Superior Vena Cava, Percutaneous Approach (ICD-10-PCS; 2018-05-04)
PROC: 05PY03Z Removal of Infusion Device from Upper Vein, Open Approach (ICD-10-PCS; principal; 2018-05-04 12:15)
DX: A41.1 Sepsis due to other specified staphylococcus (principal); J18.9 Pneumonia, unspecified organism; N18.6 End stage renal disease; I50.33 Acute on chronic diastolic (congestive) heart failure; I13.2 Hypertensive heart and chronic kidney disease with heart failure and with stage 5 chronic kidney disease, or end stage renal disease; J44.0 Chronic obstructive pulmonary disease with (acute) lower respiratory infection; C93.10 Chronic myelomonocytic leukemia not having achieved remission; R65.20 Severe sepsis without septic shock; M81.0 Age-related osteoporosis without current pathological fracture; D46.9 Myelodysplastic syndrome, unspecified; E03.9 Hypothyroidism, unspecified; E11.22 Type 2 diabetes mellitus with diabetic chronic kidney disease; E11.51 Type 2 diabetes mellitus with diabetic peripheral angiopathy without gangrene; E78.5 Hyperlipidemia, unspecified; Z99.2 Dependence on renal dialysis; M19.90 Unspecified osteoarthritis, unspecified site; Z99.81 Dependence on supplemental oxygen; G47.33 Obstructive sleep apnea (adult) (pediatric); D69.6 Thrombocytopenia, unspecified; Z51.5 Encounter for palliative care; D63.1 Anemia in chronic kidney disease

== ENCOUNTER 2018-05-18 09:54 | Day surgery (SDC) | payer MEDICARE ==
[2018-05-18 10:49] LABS: HEMOGLOBIN 9.6 g/dL (11.0-16.0); MEAN CORPUSCULAR HEMOGLOBIN 30.5 pg (27.0-31.0); MEAN CORPUSCULAR HGB CONC 31.9 g/dL (33.0-37.0); MEAN PLATELET VOLUME 10.2 fL (7.2-11.7); RBC 3.15 Mil/uL (3.80-5.20); RED CELL DISTRIBUTION WIDTH 22.6 % (11.5-14.5); WHITE BLOOD COUNT 22.7 K/uL (4.8-10.8)
[2018-05-18 10:50] LABS: MEAN CELL VOLUME 95.5 fL (81.0-99.0)
[2018-05-18 11:05] LABS: CALCIUM 8.4 mg/dl (8.6-10.4)
[2018-05-18 11:51] VITALS: BP 145/69; PULSE 80; RESP 20; TEMP 97.9; O2SAT 97
== END 2018-05-18 12:10 | disposition hospice, home (50) ==
LOC: C.SDS 09:54
PROVIDERS: ATTEND Surgery Vascular Surgery
DX: Z53.8 Procedure and treatment not carried out for other reasons (principal); N18.6 End stage renal disease
CPT/HCPCS: 36415; 80048; 82948; 85027; J7070

== ENCOUNTER 2018-05-28 08:59 | Outpatient (CLI) | payer MEDICARE | END 2018-05-28 09:00 | disposition home or self-care (01) | LOC: C.PAT 08:59 | DX: N18.6 End stage renal disease (principal) ==

== ENCOUNTER 2018-06-08 10:31 | Day surgery (SDC) | payer MEDICARE ==
[2018-05-28 09:13] VITALS: BMI 28.5
[2018-06-08 12:05] LABS: BASO # 0.1 K/uL (0.0-0.2); BASO % 0.5 % (0.0-2.0); EOS # 0.2 K/uL (0.0-0.7); EOS % 0.9 % (0.0-4.0); HEMOGLOBIN 9.3 g/dL (11.0-16.0); LYMPH # 3.6 K/uL (1.0-4.3); LYMPH % 18.8 % (20.0-40.0); MEAN CORPUSCULAR HEMOGLOBIN 31.3 pg (27.0-31.0); MEAN PLATELET VOLUME 9.6 fL (7.2-11.7); MONO # 6.6 K/uL (0.0-0.8); MONO % 34.3 % (0.0-10.0); NEUT # 8.8 K/uL (1.8-7.0); NEUT % 45.5 % (50.0-75.0); RBC 2.98 Mil/uL (3.80-5.20); RED CELL DISTRIBUTION WIDTH 22.6 % (11.5-14.5); WHITE BLOOD COUNT 19.2 K/uL (4.8-10.8)
[2018-06-08 12:10] LABS: MEAN CELL VOLUME 97.8 fL (81.0-99.0)
[2018-06-08 12:11] LABS: PLATELET COUNT 46 K/uL (130-400)
[2018-06-08 12:19] LABS: CALCIUM 7.5 mg/dl (8.6-10.4)
[2018-06-08] MEDS ORDERED: HEPARIN-NS 5,000 UNITS/500 ML 5,000 UNIT/500 ML BAG IV ONE (12:31)
[2018-06-08] MEDS ORDERED: ceFAZolin 1 gm in NS 1 GM/100 ML BAG IVPB ONE (12:31)
[2018-06-08] MEDS ORDERED: Bupivacaine 0.25% 20 ML INJ IJ ONE (12:56)
[2018-06-08] MEDS ORDERED: Lidocaine Hydrochloride 20 ML INJ ONE (12:56)
[2018-06-08] MEDS ORDERED: Midazolam 2 MG/2 ML VIAL ONE (13:03)
[2018-06-08 13:13] LABS: BANDS 1 % (0-2); BASOPHIL 1 % (0-2); EOSINOPHIL 1 % (0-4); LYMPHOCYTE 15 % (20-40); MONOCYTE 29 % (0-10); MYELOCYTE 1 % (0-0); NEUTROPHIL 51 % (50-75); REACTIVE LYMPHOCYTES 1 % (0-0); TOTAL CELLS COUNTED 100
[2018-06-08 13:14] LABS: ANISOCYTOSIS SLIGHT; HYPOCHROMIC SLIGHT; MICROCYTOSIS SLIGHT; PLATELET ESTIMATE DECREASED (NORMAL); POIKILOCYTOSIS SLIGHT; TARGET CELLS SLIGHT
--- NOTE | 2018-06-08 14:11 | PCM.SURG1 ---
Surgeon's Initial Post Op Note - Surgeon's Notes Surgeon: Elian Priming Powder Premix Blender: PGY4 Type of Anesthesia: Local Pre-Operative Diagnosis: ESRD Operative Findings: heavily calcified arteries Post-Operative Diagnosis: ESRD Operation Performed: Left brachial artery exploration Specimen/Specimens Removed: N/A Estimated Blood Loss: EBL {In ML}: 5 Blood Products Given: N/A Drains Used: No Drains Post-Op Condition: Good Date of Surgery/Procedure: 06/08/18 Time of Surgery/Procedure: 12:00
[2018-06-08 15:49] VITALS: BP 90/70; PULSE 75; RESP 18; TEMP 98; O2SAT 97
--- NOTE | 2018-06-08 20:49 | OP ---
PROCEDURE DATE: 06/08/2018 PREOPERATIVE DIAGNOSIS: Renal failure. POSTOPERATIVE DIAGNOSIS: Renal failure. PROCEDURE CARRIED OUT: Exploration of left brachial artery. No fistula created. SURGEON: Indra Plummer Jr., MD SEA[employer]OD TEAM MEMBER: Alfredito Grider DO ANESTHESIOLOGIST: Mr. Aguilera. TYPE OF ANESTHESIA: Local with sedation. INDICATION: The patient is an 83-year-old woman with history of thrombocytopenia and variety of other problems who is on dialysis now. OPERATIVE FINDINGS: Initially there were no real good veins that we could identify in the arm, although the basilic vein looked like it might have some possibility. After we had evaluated this, we then made an incision directly over the branches of the basilic vein and the brachial artery. At this point, we found that the brachial artery was heavily calcified and was unable to be clamped. Because of this, at this point, we then scanned with an ultrasound up and down the arm. There were no adequate points for us to allow this to become an arterial anastomosis so we abandoned any type of creation of the fistula. We then closed the wound with layered closure. Blood loss for the procedure was less than 20 mL. OPERATION CARRIED OUT: Exploration of left arm. No fistula created The patient has heavily calcified vessels which are not amenable to treatment. Indra Plummer Jr., MD cc: MD Dr. Haylee Valle
== END 2018-06-08 15:52 | disposition home or self-care (01) ==
LOC: C.SDS 10:31
PROVIDERS: ATTEND Surgery Vascular Surgery
DX: I13.2 Hypertensive heart and chronic kidney disease with heart failure and with stage 5 chronic kidney disease, or end stage renal disease (principal); E11.22 Type 2 diabetes mellitus with diabetic chronic kidney disease; I50.9 Heart failure, unspecified; N18.6 End stage renal disease; Z99.2 Dependence on renal dialysis; J44.9 Chronic obstructive pulmonary disease, unspecified; E03.9 Hypothyroidism, unspecified; E78.5 Hyperlipidemia, unspecified; D69.6 Thrombocytopenia, unspecified
CPT/HCPCS: 35761; 36415; 80048; 82948; 85025; J0690; J2250; J3010; J7040

== ENCOUNTER 2018-06-13 10:58 | Emergency (ER) | payer MEDICARE ==
[2018-06-13 10:59] VITALS: BMI 28.5
[2018-06-13 11:10] VITALS: TEMP 98.7
--- NOTE | 2018-06-13 11:47 | C.PDOC ---
History Of Present Illness 83 y/o female presents to the ED for exacerbation of chronic low back pain for the past 5 days. Patient has PMHx of COPD, PVD, CHF with preserved EF, HTN, osteoarthritis, compressions fracture, ESRD (on dialysis ), myelodyplastic syndrome, hypothyroidism. 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 Patient denies any recent trauma or fall. Pain is localized to the mid/lower back, and worsens with coughing and movement. She denies any extremity weakness, numbness, or urinary complaints. Per family, patient is currently not receiving treatment for myelodysplastic syndrome, just observation of her blood level. She is s/p last hemodialysis session on 06/12/18. Time Seen by Provider: 06/13/18 11:14 Chief Complaint (Nursing): Back Pain History Per: Patient History/Exam Limitations: no limitations Onset/Duration Of Symptoms: Days (x5) Current Symptoms Are (Timing): Still Present Quality Of Discomfort: "Pain" Previous Symptoms: Back Pain Exacerbating Factor(s): Movement, Other (Coughing) Past Medical History Reviewed: Historical Data, Nursing Documentation, Vital Signs Vital Signs: Last Vital Signs Temp 98.7 F 06/13/18 11:06 Pulse 95 H 06/13/18 11:06 Resp 17 06/13/18 11:06 BP 190/67 H 06/13/18 11:06 Pulse Ox 94 L 06/13/18 11:06 - Medical History PMH: Anemia, Arthritis, Asthma, Back Problems, CHF (with preserved EF), COPD, Diabetes, Gastritis, HTN, Hypothyroidism, Kidney Stones, Osteoporosis, Peripheral Edema, Pneumonia, End Stage Renal Disease (on HD -) Other PMH: Myelodysplastic Syndrome - [facility] Procedures (05/01/18) ASSISTANCE WITH RESPIRATORY VENTILATION, 24-96 HRS, CPAP (03/19/17) ASSISTANCE WITH RESPIRATORY VENTILATION, >96 HRS, CPAP (03/24/18) DRAINAGE OF LEFT PLEURAL CAVITY, PERCUTANEOUS APPROACH (03/24/18) FLUOROSCOPY OF SUPERIOR VENA CAVA, GUIDANCE (03/24/18) INSERTION OF INFUSION DEV INTO SUP VENA CAVA, PERC APPROACH (05/01/18) INSERTION OF VAD INTO CHEST SUBCU/FASCIA, PERC APPROACH (03/24/18) INTRODUCTION OF SERUM/TOX/VACCINE INTO MUSCLE, PERC APPROACH (05/27/15) REMOVAL OF INFUSION DEVICE FROM UPPER VEIN, OPEN APPROACH (05/01/18) TRANSFUSE NONAUT RED BLOOD CELLS IN PERIPH VEIN, PERC (05/01/18) ULTRASONOGRAPHY OF PLEURA (03/04/18) ULTRASONOGRAPHY OF RIGHT JUGULAR VEINS, GUIDANCE (03/24/18) Family History: States: Unknown Family Hx - Social History Hx Tobacco Use: No Hx Alcohol Use: No Hx Substance Use: No - Immunization History Hx Tetanus Toxoid Vaccination: No Hx Influenza Vaccination: No Hx Pneumococcal Vaccination: No Review Of Systems Except As Marked, All Systems Reviewed And Found Negative. Constitutional: Negative for: Fever, Chills, Weakness Cardiovascular: Negative for: Chest Pain Respiratory: Negative for: Shortness of Breath Gastrointestinal: Negative for: Nausea, Vomiting, Diarrhea Genitourinary: Negative for: Hematuria Musculoskeletal: Positive for: Back Pain (mid/low) Skin: Negative for: Rash, Lesions Neurological: Negative for: Weakness, Numbness, Incoordination Physical Exam - Physical Exam Appears: Non-toxic, In Acute Distress (mild distress) Skin: Warm, Dry, No Rash Head: Atraumatic, Normacephalic Eye(s): bilateral: Normal Inspection, PERRL, EOMI Oral Mucosa: Moist Neck: Supple Chest: Symmetrical Cardiovascular: Rhythm Regular, No Murmur Respiratory: Normal Breath Sounds, No Rales, No Rhonchi, No Wheezing, Other (NARD) Gastrointestinal/Abdominal: Soft, No Tenderness, No Distention Back: No Vertebral Tenderness (no focal midline tenderness), Decreased ROM (w/ reproducible pain with ROM), Other (Generalized lower back tenderness, (+) Kyphosis) Extremity: Bilateral: Atraumatic, Normal Color And Temperature, Normal ROM (moves all extremities) Pulses: Left Dorsalis Pedis: Normal, Right Dorsalis Pedis: Normal Neurological/Psych: Oriented x3, Normal Cranial Nerves, Normal Motor, Normal Sensation, Other (No focal deficits) ED Course And Treatment - Laboratory Results Result Diagrams: 06/13/18 12:00 06/13/18 12:00 O2 Sat by Pulse Oximetry: 94 (RA) Pulse Ox Interpretation: Normal - Radiology CXR: Interpreted by Me, Viewed By Me CXR Interpretation: Yes: Other (+Left pleural effusion, unchanged from prior) - CT Scan/US CT Lumbar Spine Other Rad Studies (CT/US): Read By Radiologist, Radiology Report Reviewed CT/US Interpretation: Accession No. : [id number]. Patient Name / ID : MANDO RESTREPO / [id number]. Exam Date : 06/13/2018 12:14:05 ( Approved ). Study Comment : Sex / Age : F / 83Y. Creator : Desiree Travis. Dictator : Reji Thurman MD. Editor Trade Journal : Loom Operator : Reji Thurman MD. Approver2 : Report Date : 06/13/2018 12:29:57. My Comment : . Date of service: 06/13/2018. PROCEDURE: CT Lumbar Spine without contrast. HISTORY: BACK PAIN HO MYELODYSPLASTIC SYNDROME. COMPARISON: MRI lumbar spine 09/30/2017. TECHNIQUE: Axial computed tomography images were obtained of the lumbar spine without the use of intravenous contrast. Coronal and sagittal reformatted images were created and reviewed. Radiation dose: Total exam DLP = 892.22 mGy-cm. This CT exam was performed using one or more of the following dose reduction techniques: Automated exposure control, adjustment of the mA and/or kV according to patient size, and/or use of iterative reconstruction technique. FINDINGS: VERTEBRAE: There is severe loss in height of the T12 vertebral body representing interval change from the prior MR examination. There is vertebra plana at L1 unchanged from prior MR examination. There is mild superior endplate compression deformity of the L3 vertebra, minimally increased compared to the prior MR examination. The remaining vertebral bodies are maintained in height there is bony retropulsion at T12 and L1 resulting in mild central spinal stenosis at the L1 level. The transverse processes and posterior elements are intact. There is severe degenerative facet arthropathy at the right L5-S1 facet articulation. DISCS/SPINAL CANAL/NEURAL FORAMINA: There is no focal disc herniation. There is mild disc bulge at L2-3, L3-4 and L4-5. The remaining intervertebral discs are maintained. There is moderate right and severe left neural foraminal stenosis at L1-2 no other significant neural foraminal stenosis is appreciated. PARASPINAL SOFT TISSUES: Unremarkable. OTHER FINDINGS: None. IMPRESSION: Compression fractures of T12, L1 and L3 vertebra as described. There has been interval change since 09/30/2017. There is bony retropulsion with spinal stenosis, (mild) at L1. Additional minor findings as above Progress - Re-Evaluation Re-evaluation Note: 06/13/18 13:46 FEELS BETTER AFTER TORADOL. PT AND FAMILY ADVISED OF CT AND LAB FINDINGS. WISHES DC HOME, FU PMD - Data Reviewed Data Reviewed: Lab, Diagnostic imaging, Old records Medical Decision Making Medical Decision Making: Impression: 83 y/o with exacerbation of chronic low back pain Records reviewed: - CT Chest (05/02): interval decrease in L pleural effusion and near complete resolution of R pleural effusion. residual multifocal atelectiasis in L lung and RLL, no evidence of pneumonia. mild cardiomegaly and small pericardial effusion. Initial Plan: --Labs --EKG --Chest x-ray --CT Lumbar Spine --30 mg IV Toradol for pain control Disposition Counseled Patient/Family Regarding: Studies Performed, Diagnosis, Need For Followup - Disposition Referrals: YOUR,PMD [Other] Disposition: HOME/ ROUTINE Disposition Time: 13:46 Condition: IMPROVED Instructions: Low Back Pain (DC) Forms: [facility] (Irish) - Clinical Impression Clinical Impression: Acute exacerbation of chronic low back pain, Compression fracture - Scribe Statement The provider has reviewed the documentation as recorded by the Ethan Velasquez Provider Attestation: All medical record entries made by the Ethan were at my direction and personally dictated by me. I have reviewed the chart and agree that the record accurately reflects my personal performance of the history, physical exam, medical decision making, and the department course for this patient. I have also personally directed, reviewed, and agree with the discharge instructions and disposition.
[2018-06-13 12:05] LABS: BASO % 0.2 % (0.0-2.0); EOS # 0.1 K/uL (0.0-0.7); EOS % 0.3 % (0.0-4.0); HEMOGLOBIN 10.4 g/dL (11.0-16.0); LYMPH # 3.5 K/uL (1.0-4.3); LYMPH % 18.9 % (20.0-40.0); MEAN CELL VOLUME 98.1 fL (81.0-99.0); MEAN CORPUSCULAR HEMOGLOBIN 31.5 pg (27.0-31.0); MEAN CORPUSCULAR HGB CONC 32.1 g/dL (33.0-37.0); MEAN PLATELET VOLUME 10.4 fL (7.2-11.7); MONO # 6.8 K/uL (0.0-0.8); MONO % 36.4 % (0.0-10.0); NEUT # 8.3 K/uL (1.8-7.0); NEUT % 44.2 % (50.0-75.0); PLATELET COUNT 65 K/uL (130-400); RBC 3.28 Mil/uL (3.80-5.20); RED CELL DISTRIBUTION WIDTH 21.8 % (11.5-14.5); WHITE BLOOD COUNT 18.7 K/uL (4.8-10.8)
[2018-06-13 12:18] LABS: CALCIUM 7.7 mg/dl (8.6-10.4)
[2018-06-13 12:29] LABS: BANDS 2 % (0-2); EOSINOPHIL 1 % (0-4); LYMPHOCYTE 18 % (20-40); MONOCYTE 29 % (0-10); MYELOCYTE 1 % (0-0); NEUTROPHIL 49 % (50-75); TOTAL CELLS COUNTED 100
[2018-06-13 12:30] LABS: ANISOCYTOSIS SLIGHT; PLATELET ESTIMATE DECREASED (NORMAL)
[2018-06-13 12:31] LABS: HYPOCHROMIC SLIGHT; POLYCHROMIC SLIGHT; TARGET CELLS SLIGHT
--- NOTE | 2018-06-13 13:27 | CT ---
Date of service: 06/13/2018 PROCEDURE: CT Lumbar Spine without contrast HISTORY: BACK PAIN HO MYELODYSPLASTIC SYNDROME COMPARISON: MRI lumbar spine 09/30/2017 TECHNIQUE: Axial computed tomography images were obtained of the lumbar spine without the use of intravenous contrast. Coronal and sagittal reformatted images were created and reviewed. Radiation dose: Total exam DLP = 892.22 mGy-cm. This CT exam was performed using one or more of the following dose reduction techniques: Automated exposure control, adjustment of the mA and/or kV according to patient size, and/or use of iterative reconstruction technique. FINDINGS: VERTEBRAE: There is severe loss in height of the T12 vertebral body representing interval change from the prior MR examination. There is vertebra plana at L1 unchanged from prior MR examination. There is mild superior endplate compression deformity of the L3 vertebra, minimally increased compared to the prior MR examination. The remaining vertebral bodies are maintained in height there is bony retropulsion at T12 and L1 resulting in mild central spinal stenosis at the L1 level. The transverse processes and posterior elements are intact. There is severe degenerative facet arthropathy at the right L5-S1 facet articulation. DISCS/SPINAL CANAL/NEURAL FORAMINA: There is no focal disc herniation. There is mild disc bulge at L2-3, L3-4 and L4-5. The remaining intervertebral discs are maintained. There is moderate right and severe left neural foraminal stenosis at L1-2 no other significant neural foraminal stenosis is appreciated. PARASPINAL SOFT TISSUES: Unremarkable. OTHER FINDINGS: None. IMPRESSION: Compression fractures of T12, L1 and L3 vertebra as described. There has been interval change since 09/30/2017. There is bony retropulsion with spinal stenosis, (mild) at L1. Additional minor findings as above
--- NOTE | 2018-06-13 14:00 | RAD ---
Date of service: 06/13/2018 PROCEDURE: CHEST RADIOGRAPH, 1 VIEW HISTORY: COUGH COMPARISON: 05/28/2018 FINDINGS: LUNGS: No infiltrate. Cannot exclude consolidation at left base due to superimposed density of left pleural effusion. PLEURA: Moderate left pleural effusion, essentially unchanged from prior examination. No right pleural effusion. No pneumothorax. CARDIOVASCULAR: No aortic atherosclerotic calcification present. There is atherosclerotic calcification of the thoracic aortic arch. There is a tunneled right central venous dialysis catheter. OSSEOUS STRUCTURES: No significant abnormalities. VISUALIZED UPPER ABDOMEN: Normal. OTHER FINDINGS: None. IMPRESSION: Moderate left pleural effusion, unchanged.
[2018-06-13 15:25] VITALS: BP 173/50; PULSE 87; RESP 16; O2SAT 99
--- NOTE | 2018-06-18 23:50 | CARD ---
APPROVED REPORT Date of service: 06/13/2018 EKG Measurement Heart [id number] <Conclusion> Normal sinus rhythm Possible Left atrial enlargement Left ventricular hypertrophy Abnormal ECG
== END 2018-06-13 15:25 | disposition home or self-care (01) ==
LOC: C.ER 10:58
DX: G89.29 Other chronic pain (principal); M54.5 Low back pain; M48.54XA Collapsed vertebra, not elsewhere classified, thoracic region, initial encounter for fracture; M48.56XA Collapsed vertebra, not elsewhere classified, lumbar region, initial encounter for fracture
CPT/HCPCS: 71045; 72131; 80048; 85025; 93005; 96374; 99284; J1885

== ENCOUNTER 2018-06-23 07:17 | Observation (INO) | payer MEDICARE ==
[2018-06-23 07:18] VITALS: BMI 28.5
[2018-06-23] MEDS ORDERED: Aspirin 325 mg EC Tablets PO STA (07:45)
[2018-06-23] MEDS ORDERED: Nitroglycerin 2% Ointment Foilpak UD TOP STA (07:45)
--- NOTE | 2018-06-23 07:49 | C.PDOC ---
History Of Present Illness 83 year old female with a history of ESRD, PVD, DM, HTN, and dialysis presents to the ED for evaluation of midsternal chest pain associated with shortness of breath since last night. The patient reports the pain radiates to her back and describes the pain as pressure like. She notes taking her BP medication 1 hour ago and states her next dialysis is today. Denies fever, chills, cough, and any other associated symptoms. Time Seen by Provider: 06/23/18 07:38 Chief Complaint (Nursing): Chest Pain History Per: Patient History/Exam Limitations: no limitations Onset/Duration Of Symptoms: Hrs (8), Waxing/Waning, Intermittent Episodes, Gradual Severity: Moderate Pain Scale Rating Of: 5 Quality: Dull, Pressure Associated Symptoms: Dyspnea Modifying Factors: None Exacerbating Factors: None Alleviating Factors: None Recent travel outside of the [place]: No Past Medical History Reviewed: Historical Data, Nursing Documentation, Vital Signs Vital Signs: Last Vital Signs Temp 98 F 06/23/18 07:19 Pulse 89 06/23/18 07:19 Resp 24 06/23/18 07:19 BP 198/70 H 06/23/18 07:19 Pulse Ox 92 L 06/23/18 07:19 - Medical History PMH: Anemia, Arthritis, Asthma, Back Problems, CHF (with preserved EF), COPD, Diabetes, Gastritis, HTN, Hypothyroidism, Kidney Stones, Osteoporosis, Peripheral Edema, Pneumonia, End Stage Renal Disease (on HD T--Mon), Chronic Kidney Disease Other Surgeries: dialysis shunt, PVD stents x3 - [facility] Procedures (05/01/18) ASSISTANCE WITH RESPIRATORY VENTILATION, 24-96 HRS, CPAP (03/19/17) ASSISTANCE WITH RESPIRATORY VENTILATION, >96 HRS, CPAP (03/24/18) DRAINAGE OF LEFT PLEURAL CAVITY, PERCUTANEOUS APPROACH (03/24/18) FLUOROSCOPY OF SUPERIOR VENA CAVA, GUIDANCE (03/24/18) INSERTION OF INFUSION DEV INTO SUP VENA CAVA, PERC APPROACH (05/01/18) INSERTION OF VAD INTO CHEST SUBCU/FASCIA, PERC APPROACH (03/24/18) INTRODUCTION OF SERUM/TOX/VACCINE INTO MUSCLE, PERC APPROACH (05/27/15) REMOVAL OF INFUSION DEVICE FROM UPPER VEIN, OPEN APPROACH (05/01/18) TRANSFUSE NONAUT RED BLOOD CELLS IN PERIPH VEIN, PERC (05/01/18) ULTRASONOGRAPHY OF PLEURA (03/04/18) ULTRASONOGRAPHY OF RIGHT JUGULAR VEINS, GUIDANCE (03/24/18) Family History: States: Unknown Family Hx - Social History Hx Tobacco Use: No Hx Alcohol Use: No Hx Substance Use: No - Immunization History Hx Tetanus Toxoid Vaccination: No Hx Influenza Vaccination: No Hx Pneumococcal Vaccination: No Review Of Systems Constitutional: Negative for: Fever Eyes: Negative for: Pain ENT: Negative for: Ear Pain Cardiovascular: Positive for: Chest Pain, Orthopnea. Negative for: Palpitations Respiratory: Positive for: Shortness of Breath. Negative for: Cough Gastrointestinal: Positive for: Nausea. Negative for: Vomiting Musculoskeletal: Negative for: Neck Pain Skin: Negative for: Rash Neurological: Negative for: Weakness Psych: Negative for: Anxiety, Depression, Suicidal ideation Physical Exam - Physical Exam Appears: Well, Non-toxic Skin: Normal Color, Warm Head: Atraumatic Eye(s): bilateral: Normal Inspection, PERRL, EOMI Ear(s): Bilateral: Normal Nose: Normal Oral Mucosa: Moist Tongue: Normal Appearing Throat: Normal Neck: Normal, Normal ROM Lymphatic: Deferred Chest: Symmetrical Cardiovascular: Rhythm Regular Respiratory: Normal Breath Sounds Gastrointestinal/Abdominal: Normal Exam Back: Normal Inspection Extremity: Normal ROM Extremity: Bilateral: Atraumatic Pulses: Left Carotid: Normal, Right Carotid: Normal, Left Radial: Normal, Right Radial: Normal Neurological/Psych: Oriented x3, Normal Speech ED Course And Treatment - Laboratory Results Result Diagrams: 06/23/18 07:55 06/23/18 07:55 ECG: Interpreted By Ar ECG Rhythm: Sinus Rhythm Interpretation Of ECG: LVH. QT normal. EKG unchanged from 06/13/2018. Rate From EC O2 Sat by Pulse Oximetry: 98 (RA) - Radiology CXR: Interpreted by Me CXR Interpretation: Yes: Cardiomegaly, Other (pulmonary edema) Progress Note: Dr Abernathy called for admission 8:30 am, accepted patient to tele Reassessment Condition: Improved - Physician Consult Information Time Consulting Physician Contacted: 08:45 Physician Contacted: Kem Langston (waiting for response) Outcome Of Conversation: Will see patient in an a hour for dialisys Medical Decision Making Medical Decision Making: Initial plan: -EKG -Blood sent. -CXR -Aspirin -Nitroglycerin 08:20 No improvement with nitro paste Critical care 40 min Disposition Discussed With : Pawel Abernathy Doctor Will See Patient In The: Hospital - Disposition Disposition: HOSPITALIZED Disposition Time: 08:48 Condition: GUARDED - Clinical Impression Clinical Impression: CHF (congestive heart failure), Chest pain, Pulmonary edema, ESRD (end stage renal disease) - Scribe Statement The provider has reviewed the documentation as recorded by the Scribe (Julia Barrios) Provider Attestation: All medical record entries made by the Scribe were at my direction and personally dictated by me. I have reviewed the chart and agree that the record accurately reflects my personal performance of the history, physical exam, medical decision making, and the department course for this patient. I have also personally directed, reviewed, and agree with the discharge instructions and disposition.
[2018-06-23] MEDS ORDERED: Nitroglycerin 2% Ointment Foilpak UD TOP ONE (07:58)
[2018-06-23] MEDS ORDERED: Aspirin 325 mg EC Tablets PO ONE (07:58)
[2018-06-23 08:13] LABS: EOS % 0.2 % (0.0-4.0); HEMOGLOBIN 9.2 g/dL (11.0-16.0); NRBC % 0.1 % (0.0-2.0)
[2018-06-23 08:15] LABS: ALB/GLOB RATIO 0.8 (1.0-2.1); ALBUMIN 3.9 g/dL (3.5-5.0); ALT/SGPT 6 U/L (9-52); AST/SGOT 30 U/L (14-36); BLOOD UREA NITROGEN 41 mg/dL (7-17); CALCIUM 8.2 mg/dl (8.6-10.4); GFR NON-AFRICAN AMERICAN 14
[2018-06-23 08:20] LABS: BASO % 0.1 % (0.0-2.0); LYMPH # 2.8 K/uL (1.0-4.3); LYMPH % 11.7 % (20.0-40.0); MEAN CELL VOLUME 98.9 fL (81.0-99.0); MEAN CORPUSCULAR HEMOGLOBIN 32.3 pg (27.0-31.0); MEAN CORPUSCULAR HGB CONC 32.7 g/dL (33.0-37.0); MEAN PLATELET VOLUME 9.6 fL (7.2-11.7); MONO # 8.2 K/uL (0.0-0.8); MONO % 33.9 % (0.0-10.0); NEUT # 13.1 K/uL (1.8-7.0); NEUT % 54.1 % (50.0-75.0); RBC 2.84 Mil/uL (3.80-5.20); RED CELL DISTRIBUTION WIDTH 20.6 % (11.5-14.5); WHITE BLOOD COUNT 24.1 K/uL (4.8-10.8)
[2018-06-23] MEDS ORDERED: Morphine 4 MG/ML VIAL IV ONE (08:21)
[2018-06-23 08:27] LABS: B-TYPE NATRIURETIC PEPTIDE 17000 pg/mL (0-900); PLATELET COUNT 97 K/uL (130-400)
[2018-06-23 08:29] LABS: INR 1.2; PROTHROMBIN TIME 13.4 SECONDS (9.7-12.2)
[2018-06-23 09:43] LABS: BANDS 3 % (0-2); LYMPHOCYTE 7 % (20-40); MONOCYTE 40 % (0-10); NEUTROPHIL 50 % (50-75); PLATELET ESTIMATE DECREASED (NORMAL); TOTAL CELLS COUNTED 100
[2018-06-23 09:44] LABS: ANISOCYTOSIS MODERATE; HYPOCHROMIC SLIGHT; POLYCHROMIC SLIGHT
--- NOTE | 2018-06-23 10:11 | RAD ---
Date of service: 06/23/2018 HISTORY: chest pain COMPARISON: Portable chest 06/13/2018. FINDINGS: LUNGS: Tunneled central venous dialysis catheter reiterated, unchanged in position. Left basilar opacification is appreciated likely a combination of pleural effusion atelectasis and infiltrate. Clinically correlate further nevertheless. No significant interval change is appreciated. PLEURA: No pneumothorax bilaterally. No right pleural effusion. CARDIOVASCULAR: Calcific atherosclerotic changes are seen related to the thoracic aorta. Cardiac silhouette is obscured borderline pulmonary vascular congestion. OSSEOUS STRUCTURES: No significant abnormalities. VISUALIZED UPPER ABDOMEN: Normal. OTHER FINDINGS: None. IMPRESSION: Borderline pulmonary vascular congestion. Persistent left basilar opacity comprised of pleural effusion with atelectasis/infiltrate likely underlying this opacity.
--- NOTE | 2018-06-23 10:29 | CP.PCM.CON ---
History of Present Illness - History of Present Illness History of Present Illness: 83 year old female with a history of ESRD on hd, PVD, DM, HTN, presents to the ED for evaluation of midsternal chest pain associated with shortness of breath since last night. The patient reports the pain radiates to her back and descr ibes the pain as pressure like. She notes taking her BP medication 1 hour ago and states her next dialysis is today. cxr in ed reported with pulm edema and patient admitted. She reports orthopnea overnight and PND. Family at bedside states she often has difficulty with weekend fluid retention. Denies fever, chills, cough, and any other associated symptoms. Review of Systems - Constitutional Constitutional: absent: Chills, Fever, Headache - EENT Eyes: absent: Blurred Vision, Dry Eye Ears: absent: Decreased Hearing, Ear Pain, Tinnitus Nose/Mouth/Throat: absent: Nasal Congestion, Nose Pain, Sinus Pressure - Cardiovascular Cardiovascular: Chest Pain, Dyspnea, Dyspnea on Exertion, Orthopnea. absent: Pedal Edema - Respiratory Respiratory: Dyspnea, Dyspnea on Exertion, Chest Congestion. absent: Cough - Gastrointestinal Gastrointestinal: absent: Constipation, Diarrhea, Heartburn - Musculoskeletal Musculoskeletal: absent: Joint Swelling, Muscle Weakness, Stiffness - Integumentary Integumentary: absent: Pruritus, Rash, Sores - Neurological Neurological: absent: Confusion, Numbness, Headaches, Syncope, Tremor - Psychiatric Psychiatric: absent: Confusion, Depression - Endocrine Endocrine: absent: Cold Intolorance, Excessive Sweating, Fatigue - Hematologic/Lymphatic Hematologic: absent: Easy Bleeding, Easy Bruising Past Patient History - Infectious Disease Hx of Infectious Diseases: None - Tetanus Immunizations Tetanus Immunization: Unknown - Past Medical History & Family History Past Medical History?: Yes - Past Social History Smoking Status: Never Smoked - CARDIAC Hx Congestive Heart Failure: Yes (with preserved EF) Hx Hypertension: Yes Hx Peripheral Edema: Yes - PULMONARY Hx Asthma: Yes Hx Chronic Obstructive Pulmonary Disease (COPD): Yes Hx Pneumonia: Yes - NEUROLOGICAL Hx Neurological Disorder: No - HEENT Hx HEENT Problems: Yes Hx Cataracts: Yes Other/Comment: Corneal replacement both eyes - RENAL Hx Chronic Kidney Disease: Yes Hx Kidney Stones: Yes - ENDOCRINE/METABOLIC Hx Hypothyroidism: Yes - HEMATOLOGICAL/ONCOLOGICAL Hx Anemia: Yes - INTEGUMENTARY Hx Dermatological Problems: No - MUSCULOSKELETAL/RHEUMATOLOGICAL Hx Arthritis: Yes Hx Osteoporosis: Yes - GASTROINTESTINAL Hx Gastritis: Yes - GENITOURINARY/GYNECOLOGICAL Hx Genitourinary Disorders: No - PSYCHIATRIC Hx Substance Use: No - SURGICAL HISTORY Hx Surgeries: Yes Hx Cataract Extraction: Yes Other/Comment: Vascular stents. Bone marrow aspiration. Corneal transplant. Permacath Insertion - ANESTHESIA Hx Anesthesia: Yes Hx Anesthesia Reactions: No Hx Malignant Hyperthermia: No Meds Allergies/Adverse Reactions: Allergies Allergy/AdvReac Type Severity Reaction Status Date / Time No Known Allergies Allergy Verified 06/23/18 07:26 Physical Exam - Constitutional Appears: Well, Non-toxic - Head Exam Head Exam: ATRAUMATIC, NORMAL INSPECTION - Eye Exam Eye Exam: EOMI, Normal appearance Pupil Exam: NORMAL ACCOMODATION, PERRL - ENT Exam ENT Exam: Mucous Membranes Moist, Normal Exam - Neck Exam Neck exam: Negative for: Lymphadenopathy, Tenderness, Thyromegaly - Respiratory Exam Respiratory Exam: Rales, Rhonchi, NORMAL BREATHING PATTERN - Cardiovascular Exam Cardiovascular Exam: +S1, +S2, Systolic Murmur - GI/Abdominal Exam GI & Abdominal Exam: Normal Bowel Sounds, Soft - Extremities Exam Extremities exam: Negative for: joint swelling, pedal edema, tenderness - Back Exam Back exam: absent: rash noted, tenderness - Neurological Exam Neurological exam: Alert, Oriented x3 - Psychiatric Exam Psychiatric exam: Normal Affect, Normal Mood - Skin Skin Exam: Dry, Intact Results - Vital Signs Recent Vital Signs: Last Vital Signs Temp 98 F 06/23/18 07:19 Pulse 86 06/23/18 09:25 Resp 22 06/23/18 09:25 BP 184/65 H 06/23/18 09:25 Pulse Ox 97 06/23/18 09:25 - Labs Result Diagrams: 06/23/18 07:55 06/23/18 07:55 Labs: Laboratory Results - last 24 hr 06/23/18 06/23/18 06/23/18 07:55 07:55 07:55 WBC 24.1 H RBC 2.84 L Hgb 9.2 L Hct 28.1 L MCV 98.9 MCH 32.3 H MCHC 32.7 L RDW 20.6 H Plt Count 97 L D MPV 9.6 Neut % (Auto) 54.1 Lymph % (Auto) 11.7 L Marion % (Auto) 33.9 H Eos % (Auto) 0.2 Baso % (Auto) 0.1 Neut # (Auto) 13.1 H Lymph # (Auto) 2.8 Marion # (Auto) 8.2 H Eos # (Auto) 0.0 Baso # (Auto) 0.0 Neutrophils % (Manual) 50 Band Neutrophils % 3 H Lymphocytes % (Manual) 7 L Monocytes % (Manual) 40 H Platelet Estimate Decreased L Polychromasia Slight Hypochromasia (manual) Slight Anisocytosis (manual) Moderate Macrocytosis (manual) Slight PT 13.4 H INR 1.2 APTT 34 Sodium 133 Potassium 4.1 Chloride 95 L Carbon Dioxide 29 Anion Gap 13 BUN 41 H Creatinine 3.1 H Est GFR ( Amer) 17 Est GFR (Non-Af Amer) 14 Random Glucose 117 H D Calcium 8.2 L Total Bilirubin 0.7 AST 30 ALT 6 L Alkaline Phosphatase 55 Troponin I < 0.0120 NT-Pro-B Natriuret Pep 69482 H Total Protein 8.6 H Albumin 3.9 Globulin 4.7 H Albumin/Globulin Ratio 0.8 L Assessment & Plan (1) CHF (congestive heart failure) Status: Acute (2) Chest pain Status: Acute (3) ESRD (end stage renal disease) Status: Acute (4) Pulmonary edema Status: Acute (5) Chronic anemia Status: Acute (6) Dyslipidemia Status: Acute (7) Leukocytosis Status: Acute (8) Type II diabetes mellitus Status: Acute (9) HTN (hypertension) Status: Chronic - Assessment and Plan (Free Text) Assessment: Admitted with pulmonary edema and chest pain Discussed with admitting team R/o for [place] Schedule HD this am for management of volume overload Uf 3 kg as tolerated Monitor bp on hd, increase meds after dialysis as needed for bp control Will attempt to challenge edw for reported difficulty with 3 day interval between dialysis CIPRIANO with dialysis when volume status and bp stabilized Consider cardiology evaluation
[2018-06-23] MEDS ORDERED: Dextrose 50% SYRINGE Inj (50 ml) IV PRN (10:38)
[2018-06-23] MEDS ORDERED: Glucagon Recombinant 1 mg Inj IM PRN (10:38)
--- NOTE | 2018-06-23 10:40 | CP.PCM.HP ---
<Teresa CanRonal - Last Filed: 06/23/18 18:50> History of Present Illness - History of Present Illness History of Present Illness: CC "shortness of breath and chest pressure" HPI: Patient is a 83 year old female with history of ESRD on HD TTS, COPD, PVD ,CHF with preserved EF, HTN, myelodyplastic syndrome, hypothyroidism and recent pneumonia who presents with daughters for complaints of shortness of breath, described as inability to get enough air associated with chest tightness that started yesterday. According to her daughters who are at bedside, her shortness of breath has been progressively worsening since Monday. Patient admits to some nausea, but no vomiting. She states she felt similarly when she had pneumonia recently. She denies fevers, chills, headache, dizziness, palpitations, diarrhea, constipation. She states her stools remains brown, denies black or bloody stools. She continues to urinate a very small amount, denies dysuria, denies leg pain or swelling. Patient was recently admitted here for similar symptoms. 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 Meds:-Tessalon Perles 100 mg 1 tab by mouth daily at 8am -Breo Ellipta 100/25 one puff inhaled daily at 8am -Hydralazine 25 mg one tab by mouth three times per day at 8am, 2pm, and 8pm -Proair 1 puff as needed for symptoms -Norvasc 10 mg 1 tab by mouth daily at 8am -Phoslo 667 mg by mouth three times per day at 8am, 2pm, and 8pm -Tricor 48 mg 1 tab by mouth daily at 8am -Synthroid 100 mcg 1 tab by mouth daily at 8am -Metoprolol 25 mg 1 tab by mouth daily at 2pm -Crestor 20 mg 1 tab by mouth before bedtime -Januvia 25 mg 1 tab by mouth daily at 8am Allergies: NKDA PMD: Dr. Clements Nephro: Dr. Langston, hemodialysis at [facility] [address] T, Th, S via permacath, no AVF Pulmonary: Dr. Hernandez Cardio: Dr. Sisi Day [phone] Hem/Onc: Dr. Avel Day [phone] Code Status: Full code Proxy: Bharati Keene (First Daughter, ) and Ayla ( Second daughter, ) Present on Admission - Present on Admission Any Indicators Present on Admission: No History of DVT/PE: No History of Uncontrolled Diabetes: No Urinary Catheter: No Decubitus Ulcer Present: No Review of Systems - Constitutional Constitutional: absent: Fever, Headache - EENT Nose/Mouth/Throat: absent: Nasal Congestion, Sore Throat - Cardiovascular Cardiovascular: Chest Pain, Dyspnea. absent: Leg Edema - Respiratory Respiratory: Dyspnea, Dyspnea on Exertion - Gastrointestinal Gastrointestinal: Nausea. absent: Abdominal Pain, Constipation, Diarrhea, Vomiting - Genitourinary Genitourinary: absent: Dysuria - Musculoskeletal Musculoskeletal: Back Pain (chronic low back pain) - Neurological Neurological: absent: Dizziness, Weakness - Hematologic/Lymphatic Hematologic: Easy Bleeding, Easy Bruising Past Patient History - Infectious Disease Hx of Infectious Diseases: None - Tetanus Immunizations Tetanus Immunization: Unknown - Past Medical History & Family History Past Medical History?: Yes - Past Social History Smoking Status: Never Smoked - CARDIAC Hx Congestive Heart Failure: Yes (with preserved EF) Hx Hypertension: Yes Hx Peripheral Edema: Yes - PULMONARY Hx Asthma: Yes Hx Chronic Obstructive Pulmonary Disease (COPD): Yes Hx Pneumonia: Yes - NEUROLOGICAL Hx Neurological Disorder: No - HEENT Hx HEENT Problems: Yes Hx Cataracts: Yes Other/Comment: Corneal replacement both eyes - RENAL Hx Chronic Kidney Disease: Yes Hx Kidney Stones: Yes - ENDOCRINE/METABOLIC Hx Hypothyroidism: Yes - HEMATOLOGICAL/ONCOLOGICAL Hx Anemia: Yes - INTEGUMENTARY Hx Dermatological Problems: No - MUSCULOSKELETAL/RHEUMATOLOGICAL Hx Arthritis: Yes Hx Osteoporosis: Yes - GASTROINTESTINAL Hx Gastritis: Yes - GENITOURINARY/GYNECOLOGICAL Hx Genitourinary Disorders: No - PSYCHIATRIC Hx Substance Use: No - SURGICAL HISTORY Hx Surgeries: Yes Hx Cataract Extraction: Yes Other/Comment: Vascular stents. Bone marrow aspiration. Corneal transplant. Permacath Insertion - ANESTHESIA Hx Anesthesia: Yes Hx Anesthesia Reactions: No Hx Malignant Hyperthermia: No Meds Allergies/Adverse Reactions: Allergies Allergy/AdvReac Type Severity Reaction Status Date / Time No Known Allergies Allergy Verified 06/23/18 07:26 Physical Exam - Constitutional Appears: Non-toxic, No Acute Distress - Head Exam Head Exam: ATRAUMATIC, NORMAL INSPECTION, NORMOCEPHALIC - Eye Exam Eye Exam: EOMI, Normal appearance - ENT Exam ENT Exam: Mucous Membranes Moist - Respiratory Exam Respiratory Exam: Rales, NORMAL BREATHING PATTERN - Cardiovascular Exam Cardiovascular Exam: REGULAR RHYTHM, RRR, +S1, +S2, Systolic Murmur - GI/Abdominal Exam GI & Abdominal Exam: Normal Bowel Sounds, Soft. absent: Firm, Guarding, Tenderness Additional comments: central obesity - Extremities Exam Extremities exam: Positive for: normal inspection. Negative for: pedal edema, tenderness - Back Exam Back exam: NORMAL INSPECTION - Neurological Exam Neurological exam: Alert, Oriented x3 - Psychiatric Exam Psychiatric exam: Normal Affect, Normal Mood - Skin Skin Exam: Dry, Warm Additional comments: left hand hemorrhagic blister Results - Vital Signs Recent Vital Signs: Last Vital Signs Temp 98 F 06/23/18 07:19 Pulse 86 06/23/18 09:25 Resp 22 06/23/18 09:25 BP 184/65 H 06/23/18 09:25 Pulse Ox 97 06/23/18 09:25 - Labs Result Diagrams: 06/23/18 07:55 06/23/18 07:55 Labs: Laboratory Results - last 24 hr 06/23/18 06/23/18 06/23/18 07:55 07:55 07:55 WBC 24.1 H RBC 2.84 L Hgb 9.2 L Hct 28.1 L MCV 98.9 MCH 32.3 H MCHC 32.7 L RDW 20.6 H Plt Count 97 L D MPV 9.6 Neut % (Auto) 54.1 Lymph % (Auto) 11.7 L Stanley % (Auto) 33.9 H Eos % (Auto) 0.2 Baso % (Auto) 0.1 Neut # (Auto) 13.1 H Lymph # (Auto) 2.8 Stanley # (Auto) 8.2 H Eos # (Auto) 0.0 Baso # (Auto) 0.0 Neutrophils % (Manual) 50 Band Neutrophils % 3 H Lymphocytes % (Manual) 7 L Monocytes % (Manual) 40 H Platelet Estimate Decreased L Polychromasia Slight Hypochromasia (manual) Slight Anisocytosis (manual) Moderate Macrocytosis (manual) Slight PT 13.4 H INR 1.2 APTT 34 Sodium 133 Potassium 4.1 Chloride 95 L Carbon Dioxide 29 Anion Gap 13 BUN 41 H Creatinine 3.1 H Est GFR ( Amer) 17 Est GFR (Non-Af Amer) 14 Random Glucose 117 H D Calcium 8.2 L Total Bilirubin 0.7 AST 30 ALT 6 L Alkaline Phosphatase 55 Troponin I < 0.0120 NT-Pro-B Natriuret Pep 39476 H Total Protein 8.6 H Albumin 3.9 Globulin 4.7 H Albumin/Globulin Ratio 0.8 L Assessment & Plan - Assessment and Plan (Free Text) Assessment: HF with preserved [place] [address] (compared to 05/01/18 @ 6830) to get HD today 06/23/18 hold metoprolol Possible Underlying Pneumonia repeat cxray post dialysis cxray (06/23/18): borderline pulmonary vascular congestion. persistent left basilar opacity comprised of pleural effusion with atelectasis/ infiltrate likely underlying this opacity no antibiotics at this time 2/2 risk of c dif ESRD on HD T-TH-S via R permacath to get dialysis today (06/23/18) (goes to [facility]) Dr. Langston consulted, help appreciated Phoslo 667mg po TIDCC Chest Pain proabably secondary to pleural effusion Troponin I <.0120 f/u JAIME x 2 Hx Thrombocytopenia/ Hx Myelodysplastic Syndrome platelets on d/c 05/11: 57, 06/23/18: 97 hold Prasugrel outpt heme/onc: Dr. 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 Abernathy <Pawel Abernathy - Last Filed: 06/24/18 22:52> Results - Vital Signs Recent Vital Signs: Last Vital Signs Temp 99.5 F 06/24/18 15:00 Pulse 102 H 06/24/18 15:00 Resp 20 06/24/18 15:00 BP 150/67 06/24/18 15:00 Pulse Ox 94 L 06/24/18 15:00 - Labs Result Diagrams: 06/24/18 07:18 06/24/18 07:18 Labs: Laboratory Results - last 24 hr 06/23/18 06/23/18 06/24/18 11:42 23:10 06:07 WBC RBC Hgb Hct MCV MCH MCHC RDW Plt Count MPV Neut % (Auto) Lymph % (Auto) Stanley % (Auto) Eos % (Auto) Baso % (Auto) Neut # (Auto) Lymph # (Auto) Stanley # (Auto) Eos # (Auto) Baso # (Auto) Neutrophils % (Manual) Band Neutrophils % Lymphocytes % (Manual) Monocytes % (Manual) Platelet Estimate Large Platelets Polychromasia Hypochromasia (manual) Anisocytosis (manual) Macrocytosis (manual) Sodium Potassium Chloride Carbon Dioxide Anion Gap BUN Creatinine Est GFR ( Amer) Est GFR (Non-Af Amer) POC Glucose (mg/dL) 101 Random Glucose Hemoglobin A1c 6.4 Calcium Phosphorus Magnesium Total Bilirubin AST ALT Alkaline Phosphatase Total Creatine Kinase < 20 L CK-MB (Mass) 0.33 Troponin I 0.0430 Total Protein Albumin Globulin Albumin/Globulin Ratio Procalcitonin Influenza Typ A,B (EIA) Ur L.pneumophila Ag 06/24/18 06/24/18 06/24/18 07:18 07:18 11:39 WBC 30.5 H RBC 2.58 L Hgb 8.3 L Hct 25.8 L MCV 100.2 H MCH 32.2 H MCHC 32.2 L RDW 20.1 H Plt Count 80 L MPV 9.4 Neut % (Auto) 50.4 Lymph % (Auto) 15.3 L Stanley % (Auto) 34.0 H Eos % (Auto) 0.2 Baso % (Auto) 0.1 Neut # (Auto) 15.4 H Lymph # (Auto) 4.7 H Stanley # (Auto) 10.4 H Eos # (Auto) 0.1 Baso # (Auto) 0.0 Neutrophils % (Manual) 52 Band Neutrophils % 1 Lymphocytes % (Manual) 13 L Monocytes % (Manual) 34 H Platelet Estimate Decreased L Large Platelets Present Polychromasia Slight Hypochromasia (manual) Slight Anisocytosis (manual) Moderate Macrocytosis (manual) Slight Sodium 138 Potassium 4.2 Chloride 98 Carbon Dioxide 34 H Anion Gap 10 BUN 23 H Creatinine 2.5 H Est GFR ( Amer) 22 Est GFR (Non-Af Amer) 18 POC Glucose (mg/dL) 223 H Random Glucose 117 H Hemoglobin A1c Calcium 7.8 L Phosphorus 3.3 Magnesium 1.9 Total Bilirubin 0.6 AST 30 ALT 10 Alkaline Phosphatase 52 Total Creatine Kinase CK-MB (Mass) Troponin I Total Protein 7.9 Albumin 3.5 Globulin 4.4 H Albumin/Globulin Ratio 0.8 L Procalcitonin Influenza Typ A,B (EIA) Ur L.pneumophila Ag 06/24/18 06/24/18 06/24/18 13:18 13:18 16:49 WBC RBC Hgb Hct MCV MCH MCHC RDW Plt Count MPV Neut % (Auto) Lymph % (Auto) Stanley % (Auto) Eos % (Auto) Baso % (Auto) Neut # (Auto) Lymph # (Auto) Stanley # (Auto) Eos # (Auto) Baso # (Auto) Neutrophils % (Manual) Band Neutrophils % Lymphocytes % (Manual) Monocytes % (Manual) Platelet Estimate Large Platelets Polychromasia Hypochromasia (manual) Anisocytosis (manual) Macrocytosis (manual) Sodium Potassium Chloride Carbon Dioxide Anion Gap BUN Creatinine Est GFR ( Amer) Est GFR (Non-Af Amer) POC Glucose (mg/dL) Random Glucose Hemoglobin A1c Calcium Phosphorus Magnesium Total Bilirubin AST ALT Alkaline Phosphatase Total Creatine Kinase CK-MB (Mass) Troponin I Total Protein Albumin Globulin Albumin/Globulin Ratio Procalcitonin 0.40 Influenza Typ A,B (EIA) Negative for flu a/b Ur L.pneumophila Ag Negative Attending/Attestation - Attestation I have personally seen and examined this patient.: Yes I have fully participated in the care of the patient.: Yes I have reviewed all pertinent clinical information: Yes Notes (Text): 06/24/18 22:51 This is a late entry. History, Physical, Assessment and Plan, and all orders were gone over with Dr. Can. Pawel Abernathy D.O.
[2018-06-23] MEDS: Albuterol-Ipratrop 3 mg / 0.5 (3 ml) UD INH SCH ×3 (10:45→19:04)
[2018-06-23] MEDS: (Novolin R) Insulin Human Regular 100 units/ml vial SC SCH ×3 (12:01→21:52)
[2018-06-23 18:06] LABS: CK-MB 0.37 ng/mL (0.0-3.38)
[2018-06-23 23:49] LABS: CK-MB 0.33 ng/mL (0.0-3.38)
[2018-06-24] MEDS: Albuterol-Ipratrop 3 mg / 0.5 (3 ml) UD INH SCH ×3 (01:20→07:35)
[2018-06-24] MEDS: Levothyroxine 100 MCG TAB PO SCH (05:55)
[2018-06-24] MEDS: Fluticasone-Vilanterol 100/25mcg Diskus INH SCH (07:35)
[2018-06-24 07:37] LABS: BASO % 0.1 % (0.0-2.0); EOS # 0.1 K/uL (0.0-0.7); EOS % 0.2 % (0.0-4.0); HEMOGLOBIN 8.3 g/dL (11.0-16.0); LYMPH # 4.7 K/uL (1.0-4.3); LYMPH % 15.3 % (20.0-40.0); MEAN CELL VOLUME 100.2 fL (81.0-99.0); MEAN CORPUSCULAR HEMOGLOBIN 32.2 pg (27.0-31.0); MEAN CORPUSCULAR HGB CONC 32.2 g/dL (33.0-37.0); MEAN PLATELET VOLUME 9.4 fL (7.2-11.7); MONO # 10.4 K/uL (0.0-0.8); NEUT # 15.4 K/uL (1.8-7.0); NEUT % 50.4 % (50.0-75.0); PLATELET COUNT 80 K/uL (130-400); RBC 2.58 Mil/uL (3.80-5.20); RED CELL DISTRIBUTION WIDTH 20.1 % (11.5-14.5); WHITE BLOOD COUNT 30.5 K/uL (4.8-10.8)
[2018-06-24 07:39] LABS: ALB/GLOB RATIO 0.8 (1.0-2.1); ALBUMIN 3.5 g/dL (3.5-5.0); CALCIUM 7.8 mg/dl (8.6-10.4)
[2018-06-24] MEDS: (Novolin R) Insulin Human Regular 100 units/ml vial SC SCH ×4 (07:44→22:32)
--- NOTE | 2018-06-24 08:53 | RAD ---
Date of service: 06/24/2018 HISTORY: shortness of breath COMPARISON: Portable chest 06/23/2016 7:53 a.m.. TECHNIQUE: Chest PA and lateral FINDINGS: LUNGS: Right central venous dialysis catheter unchanged in position. Left basilar airspace disease persists. None is felt to present at the right. PLEURA: Moderate left pleural effusion unchanged. No right pleural effusion. No pneumothorax bilaterally. CARDIOVASCULAR: Calcific atherosclerotic changes are seen related to the thoracic aorta. Prominent cardiac silhouette persists. Pulmonary vascular congestion is unchanged. OSSEOUS STRUCTURES: No significant abnormalities. VISUALIZED UPPER ABDOMEN: Normal. OTHER FINDINGS: None. IMPRESSION: No interval change in moderate left pleural effusion and underlying atelectasis or infiltrate left base. Pulmonary vascular congestion pattern persists.
--- NOTE | 2018-06-24 09:48 | CP.PCM.PN ---
<Teresa Can - Last Filed: 06/24/18 18:54> Subjective - Date & Time of Evaluation Date of Evaluation: 06/24/18 Time of Evaluation: 07:00 - Subjective Subjective: PGY2- Progress Note for Dr. Abernatyh Patient seen and examined at bedside and in no acute distress. Patient has some low back pain which is chronic. Patient currently denies any fevers, shortness of breath, cough, chest pain, palpitations, abdominal pain, nausea, vomiting, or diarrhea. Patient has not had a bowel movement in two days, but does not feel constipated. Objective - Vital Signs/Intake and Output Vital Signs (last 24 hours): Temp Pulse Resp BP Pulse Ox 97.9 F 104 H 18 155/54 H 94 L 06/24/18 07:35 06/24/18 07:35 06/24/18 07:35 06/24/18 07:35 06/24/18 07:35 Intake and Output: 06/24/18 06/24/18 06:59 18:59 Intake Total 150 Balance 150 - Medications Medications: Current Medications Albuterol/Ipratropium (Duoneb 3 Mg/0.5 Mg (3 Ml) Ud) 3 ml INH RQ6 [facility] Stop: 06/24/18 10:30 Last Admin: 06/24/18 05:59 Dose: 3 ml Albuterol/Ipratropium (Duoneb 3 Mg/0.5 Mg (3 Ml) Ud) 3 ml INH RQ6 PRN PRN Reason: Shortness of Breath Amlodipine Besylate (Norvasc) 10 mg PO DAILY [facility] Benzonatate (Tessalon Perles) 100 mg PO DAILY [facility] Calcium Acetate (Phoslo) 667 mg PO TIDCC [facility] Last Admin: 06/24/18 08:50 Dose: Not Given Dextrose (Dextrose 50% Inj) 0 ml IV STAT PRN; Protocol PRN Reason: Hypoglycemia Protocol Dextrose (Glutose 15) 0 gm PO ONCE PRN; Protocol PRN Reason: Hypoglycemia Protocol Fenofibrate (Tricor) 48 mg PO DAILY [facility] Last Admin: 06/23/18 10:45 Dose: Not Given Fluticasone/Vilanterol (Breo Ellipta 100-25 Mcg Inh) 1 puff INH RQD [facility] Glucagon (Glucagen Diagnostic Kit) 0 mg IM STAT PRN; Protocol PRN Reason: Hypoglycemia Protocol Dextrose (Dextrose 5% In Water 1000 Ml) 1,000 mls @ 0 mls/hr IV .Q0M PRN; Protocol PRN Reason: Hypoglycemia Protocol Insulin Human Regular (Novolin R) 0 unit SC ACHS [facility]; Protocol Last Admin: 06/24/18 07:44 Dose: Not Given Levothyroxine Sodium (Synthroid) 100 mcg PO DAILY@0630 [facility] Last Admin: 06/24/18 05:55 Dose: 100 mcg Rosuvastatin Calcium (Crestor) 20 mg PO HS [facility] Sitagliptin Phosphate (Januvia) 25 mg PO DAILY [facility] Last Admin: 06/23/18 10:45 Dose: Not Given - Labs Labs: 06/24/18 07:18 06/24/18 07:18 PT 13.4 SECONDS (9.7-12.2) H 06/23/18 07:55 INR 1.2 06/23/18 07:55 APTT 34 SECONDS (21-34) 06/23/18 07:55 - Additional Findings Additional findings: - Constitutional Appears: Non-toxic, No Acute Distress - Head Exam Head Exam: ATRAUMATIC, NORMAL INSPECTION, NORMOCEPHALIC - Eye Exam Eye Exam: EOMI, Normal appearance - ENT Exam ENT Exam: Mucous Membranes Moist - Respiratory Exam Respiratory Exam: Rales, NORMAL BREATHING PATTERN - Cardiovascular Exam Cardiovascular Exam: REGULAR RHYTHM, RRR, +S1, +S2, Systolic Murmur - GI/Abdominal Exam GI & Abdominal Exam: Normal Bowel Sounds, Soft. absent: Firm, Guarding, Tenderness Additional comments: central obesity - Extremities Exam Extremities exam: Positive for: normal inspection. Negative for: pedal edema, tenderness - Back Exam Back exam: NORMAL INSPECTION - Neurological Exam Neurological exam: Alert, Oriented x3 - Psychiatric Exam Psychiatric exam: Normal Affect, Normal Mood - Skin Skin Exam: Dry, Warm Additional comments: left hand hemorrhagic blister Assessment and Plan - Assessment and Plan (Free Text) Assessment: Assessment: HF with preserved [place] [address] (compared to 05/01/18 @ 6830) to get HD today 06/23/18 Toprol xl 25mg po daily Possible Health care associated Pneumonia could be residual from prior pneumonia as it has been 6 weeks since her treatment cxray (06/23/18): borderline pulmonary vascular congestion. persistent left basilar opacity comprised of pleural effusion with atelectasis/ infiltrate likely underlying this opacity cxray (06/24/18): no interval change in moderate left pleural effusion and underlying infiltrate left base. pulm vascular congestion pattern persists. IR, Dr. Longoria, consulted for pleural effusion Dr. Rodriguez, ID, consulted- help appreciated f/u mycoplasma, strep pneumo, group B strep, urine culture, blood culture Flu A/B negative procal: .4 because of increased WBC (30.8 from 24.1) will start antibiotics * Zosyn 2.25gm q8h * Avelox 400mg ivpb q24h * Vanco 1 gm given on 06/24/18 ESRD on HD T- via R permacath dialysis yesterday (06/23/18) (goes to [facility]) Dr. Langston consulted, help appreciated Phoslo 667mg po TIDCC Chest Pain proabably secondary to pleural effusion JAIME neg x 3 Hx Thrombocytopenia/ Hx Myelodysplastic Syndrome platelets on d/c 05/11: 57, 06/23/18: 97, 06/24/18: 80 hold Prasugrel outpt heme/onc: Dr. Landy Day COPD Tessalon Perles 100mg po daily Breo Ellipta 100/25mg po inh daily Duonebs q6h scheduled for 24 hours then PRN Hx PVD with b/l Leg Stents Tricor 48mg po daily Crestor 20mg po HS hold Prasugrel 2/2 thrombocytopenia DMII Januvia 25mg po daily RISS- low dose achs hypoglycemia protocol f/u HgA1C HTN Norvasc 10mg po daily hold Metoprolol 25mg po daily 2/2 HF exacerbation HLD Tricor 48mg po daily Crestor 20mg po HS lipid panel: Chol 107, Triglycerides 98, LDL 39, HDL 37 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) Hg/HCT stable compared to 05/11/18 continue to monitor Hypothyroidism Synthroid 100mcg po daily TSH: 2.92 Free T4: 1.51 Prophylaxis SCDs VTE contraindicated 2/[address] Abernathy <Pawel Abernathy - Last Filed: 06/24/18 22:51> Objective - Vital Signs/Intake and Output Vital Signs (last 24 hours): Temp Pulse Resp BP Pulse Ox 99.5 F 102 H 20 150/67 94 L 06/24/18 15:00 06/24/18 15:00 06/24/18 15:00 06/24/18 15:00 06/24/18 15:00 - Medications Medications: Current Medications Albuterol/Ipratropium (Duoneb 3 Mg/0.5 Mg (3 Ml) Ud) 3 ml INH RQ6 PRN PRN Reason: Shortness of Breath Last Admin: 06/24/18 13:36 Dose: 3 ml Amlodipine Besylate (Norvasc) 10 mg PO DAILY [facility] Last Admin: 06/24/18 10:40 Dose: 10 mg Benzonatate (Tessalon Perles) 100 mg PO DAILY [facility] Last Admin: 06/24/18 10:39 Dose: 100 mg Calcium Acetate (Phoslo) 667 mg PO TIDCC [facility] Last Admin: 06/24/18 17:15 Dose: Not Given Dextrose (Dextrose 50% Inj) 0 ml IV STAT PRN; Protocol PRN Reason: Hypoglycemia Protocol Dextrose (Glutose 15) 0 gm PO ONCE PRN; Protocol PRN Reason: Hypoglycemia Protocol Fenofibrate (Tricor) 48 mg PO DAILY [facility] Last Admin: 06/24/18 10:39 Dose: 48 mg Fluticasone/Vilanterol (Breo Ellipta 100-25 Mcg Inh) 1 puff INH RQD [facility] Last Admin: 06/24/18 07:35 Dose: Not Given Glucagon (Glucagen Diagnostic Kit) 0 mg IM STAT PRN; Protocol PRN Reason: Hypoglycemia Protocol Dextrose (Dextrose 5% In Water 1000 Ml) 1,000 mls @ 0 mls/hr IV .Q0M PRN; Protocol PRN Reason: Hypoglycemia Protocol Piperacillin Sod/Tazobactam (Sod 2.25 gm/ Sodium Chloride) 100 mls @ 200 mls/hr IVPB Q8H [facility]; Protocol Stop: 07/04/18 11:01 Last Admin: 06/24/18 20:00 Dose: 200 mls/hr Moxifloxacin HCl (Avelox Iv 400mg/250ml Ns) 400 mg in 250 mls @ 167 mls/hr IVPB Q24H [facility]; Protocol Stop: 07/04/18 10:00 Last Admin: 06/24/18 14:32 Dose: 167 mls/hr Insulin Human Regular (Novolin R) 0 unit SC ACHS [facility]; Protocol Last Admin: 06/24/18 22:32 Dose: Not Given Lactobacillus Acidophilus (Lactobacillus) 1 cap PO Q12H [facility] Last Admin: 06/24/18 21:00 Dose: 1 cap Levothyroxine Sodium (Synthroid) 100 mcg PO DAILY@0630 [facility] Last Admin: 06/24/18 05:55 Dose: 100 mcg Metoprolol Succinate (Toprol Xl) 25 mg PO DAILY [facility] Last Admin: 06/24/18 10:39 Dose: 25 mg Rosuvastatin Calcium (Crestor) 20 mg PO HS [facility] Last Admin: 06/24/18 21:29 Dose: 20 mg Sitagliptin Phosphate (Januvia) 25 mg PO DAILY [facility] Last Admin: 06/24/18 10:20 Dose: Not Given - Labs Labs: 06/24/18 07:18 06/24/18 07:18 PT 13.4 SECONDS (9.7-12.2) H 06/23/18 07:55 INR 1.2 06/23/18 07:55 APTT 34 SECONDS (21-34) 06/23/18 07:55 Attending/Attestation - Attestation I have personally seen and examined this patient.: Yes I have fully participated in the care of the patient.: Yes I have reviewed all pertinent clinical information, including history, physical exam and plan: Yes Notes (Text): 06/24/18 22:37 Patient was seen and examined together with resident Dr. Can. Care of this patient was gone over in detail with Dr. Can. Please see her note for full details. Possible Health Care Associated Pneumonia with risk for Multi Drug Resistance: This is a consideration as she was admitted to this hospital in April 2018 and was on antibiotics for Pneumonia at that time. WBC elevation > 25 therefore for now she should be covered with antibiotics. She does have a history of Myelodysplastic Syndrome and the elevated WBC could be secondary to this Zosyn 2.25 mg IV Q8H Moxifloxicin 400 mg IV Q24H Vancomycin 1 gm IV x 1 dose given 06/24/18: please coordinate with administration at the time of HD F/U Urine Legionella Ag F/U Urine Strep pneumoniae AG F/U Mycoplasma IgG and IgM F/U Rapid Influenza F/U Blood Culture x 2 Please note that the findings on Chest X Ray 06/24/18 could be secondary to the Pneumonia that was diagnosed in April 2018 and the findings on Chest X Ray are lagging behind clinical improvement Patient does not appear to clinically have Pneumonia and she has NO fevers Should she continue to improve and blood cultures are negative, then the a ntibiotic should be discontinued. Please coordinate with ID Dr. Rodriguez Left Pleural Effusion: F/U with ID Dr. Longoria 06/25/18 to see if Thoracentesis can be performed If so, please send fluid for culture HTN: Metoprolol XL 25 mg PO 1x/day was restarted 06/24/18 Continue Norvasc 10 mg PO 1x/day If Daughters are not at bedside, please update them via phone: Bibiana [phone] Ayla [phone] Pawel Abernathy D.O.
[2018-06-24] MEDS: Metoprolol Succinate 25 mg XL Tab PO SCH (10:39)
[2018-06-24] MEDS: Piperacillin/Tazobact 2.25 GM in Sodium Chloride 100 ML IVPB SCH ×2 (10:40→20:00)
[2018-06-24 11:01] LABS: BANDS 1 % (0-2); LYMPHOCYTE 13 % (20-40); MONOCYTE 34 % (0-10); NEUTROPHIL 52 % (50-75); PLATELET ESTIMATE DECREASED (NORMAL); TOTAL CELLS COUNTED 100
[2018-06-24 11:02] LABS: ANISOCYTOSIS MODERATE; HYPOCHROMIC SLIGHT; POLYCHROMIC SLIGHT
[2018-06-24 11:03] LABS: LARGE PLATELETS PRESENT
[2018-06-24] MEDS: Albuterol-Ipratrop 3 mg / 0.5 (3 ml) UD INH PRN (13:36)
[2018-06-24 13:40] LABS: INFLUENZA A B NEGATIVE FOR FLU A/B (NEGATIVE)
[2018-06-24] MEDS: NS IVPB SCH (14:32)
[2018-06-24] MEDS: MOXIFLOXACIN 400 MG/250 ML IVPB SCH (14:32)
--- NOTE | 2018-06-24 15:11 | CP.PCM.CON ---
History of Present Illness - History of Present Illness History of Present Illness: 83 year old with a history of ESRD on hd, PVD, DM, HTN, presents to the ED for evaluation of midsternal chest pain associated with shortness of breath since last night. 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 Meds: Norvasc 10mg PO, Florastor 250mg PO BID, Januvia 25mg PO daily, Crstor 10mg, Effient 10mg, Toprol XL 10mg, Levothyroxine 100mcg, Fenofibrate 48mg, Phoslo 667mg TID, Albuterol Q6 Allergies: NKDA Review of Systems - Review of Systems All systems: reviewed and no additional remarkable complaints except - Constitutional Constitutional: As Per HPI - EENT Eyes: absent: As Per HPI, Blind Spots, Blurred Vision, Change in Vision, Decreased Night Vision, Diplopia, Discharge, Dry Eye, Exophthalmos, Floaters, Irritation, Itchy Eyes, Loss of Peripheral Vision, Pain, Photophobia, Requires Corrective Lenses, Sees Flashes, Spots in Vision, Tunnel Vision, Other Visual Disturbances, Loss of Vision, Other Ears: absent: As Per HPI, Decreased Hearing, Ear Discharge, Ear Pain, Tinnitus, Abnormal Hearing, Disequilibrium, Dizziness, Other Nose/Mouth/Throat: absent: As Per HPI, Epistaxis, Nasal Congestion, Nasal Discharge, Nasal Obstruction, Nasal Trauma, Nose Pain, Post Nasal Drip, Sinus Pain, Sinus Pressure, Bleeding Gums, Change in Voice, Dental Pain, Dry Mouth, Dysphagia, Halitosis, Hoarsness, Lip Swelling, Mouth Lesions, Mouth Pain, Odynophagia, Sore Throat, Throat Swelling, Tongue Swelling, Facial Pain, Neck Pain, Neck Mass, Other - Cardiovascular Cardiovascular: As Per HPI - Respiratory Respiratory: As Per HPI, Cough, Dyspnea. absent: Hemoptysis - Gastrointestinal Gastrointestinal: absent: As Per HPI, Abdominal Pain, Belching, Bloating, Change in Bowel Habits, Change in Stool Character, Coffee Ground Emesis, Constipation, Cramping, Diarrhea, Dyspepsia, Dysphagia, Early Satiety, Excessive Flatus, Fecal Incontinence, Heartburn, Hematemesis, Hematochezia, Loose Stools, Melena, Nausea, Odynophagia, Temesmus, Vomiting, Other - Genitourinary Genitourinary: absent: As Per HPI, Change in Urinary Stream, Difficulty Urinating, Dysuria, Flank Pain, Hematuria, Pyuria, Nocturia, Urinary Incontinence, Urinary Frequency, Urinary Hesitance, Urinary Urgency, Voiding Freq/Small Amts, Freq UTI, Hx Renal/Bladder Calculi, Hx /Renal Surgery, Bladder Distension, Other - Reproductive: Female Reproductive:Female: absent: As Per HPI, Amenorrhea, Amenorrhea/ Control, Currently Menstual, Cycle <21 Days, Cycle >35 Days, Cycle Variable, Menses 1-7 Days, Menses >/= 8 Days, Menses Variable, Cycle > 4 Weeks Between, No Menses for 6 Months, Heavy Menses, Light Menses, Normal Menses, Spotting Between Cycles, S/P Hysterectomy, Menopausal, Post Menopausal, Premenarche, Abnormal Vaginal Bleeding, Dysmenorrhea, Dyspareunia, Genital Lesions, Genital Pruritis, Pelvic Pain, Prolapse Symptoms, Sexual Dysfunction, Vaginal Discharge, Vaginal Dryness, Vaginal Odor, Vaginal Pruritis, Other - Menstruation Menstruation: absent: As Per HPI, Amenorrhea, Amenorrhea/ Control, Currently Menstual, Cycle <21 Days, Cycle >35 Days, Cycle Variable, Menses 1-7 Days, Menses >/= 8 Days, Menses Variable, Cycle > 4 Weeks Between, No Menses for 6 Months, Heavy Menses, Light Menses, Normal Menses, Spotting Between Cycles, S/P Hysterectomy, Menopausal, Post Menopausal, Premenarche, Abnormal Vaginal Bleeding, Dysmenorrhea, Other - Musculoskeletal Musculoskeletal: absent: As Per HPI, Abnormal Gait, Arthralgias, Atrophy, Back Pain, Deformity, Joint Swelling, Limited Range of Motion, Loss of Height, Muscle Cramps, Muscle Weakness, Myalgias, Neck Pain, Numbness, Radiating Pain into Limb, Stiffness, Tingling, Other - Integumentary Integumentary: absent: As Per HPI, Acne, Alopecia, Bleeding Lesions, Change in Hair, Change in Nails, Change in Pigmentation, Changing Lesions, Dry Skin, Erythema, Furuncle, Hirsutism, Lesions, New Lesions, Non-Healing Lesions, Photosensitivity, Pruritus, Rash, Skin Pain, Skin Ulcer, Sores, Striae, Swelling, Unusual Bruising, Wounds, Jaundice, Other - Neurological Neurological: absent: As Per HPI, Abnormal Gait, Abnormal Hearing, Abnormal Movements, Abnormal Speech, Behavioral Changes, Burning Sensations, Confusion, Convulsions, Disequilibrium, Dizziness, Numbness, Focal Weakness, Frequent Falls, Headaches, Lack of Coordination, Loss of Vision, Memory Loss, Paresthesias, Radicular Pain, Restless Legs, Sensory Deficit, Syncope, Tingling, Tremor, Vertigo, Weakness, Other Visual Disturbances, Other - Psychiatric Psychiatric: absent: As Per HPI, Abnormal Sleep Pattern, Anhedonia, Anxiety, Auditory Hallucinations, Behavioral Changes, Change in Appetite, Change in Libido, Confusion, Depression, Difficulty Concentrating, Hallucinations, Homicidal Ideation, Hopelessness, Irritability, Memory Loss, Mood Swings, Panic Attacks, Paranoia, Suicidal Ideation, Visual Hallucinations, Tactile Hallucinations, Other - Endocrine Endocrine: absent: As Per HPI, Change in Body Appearance, Change in Libido, Cold Intolorance, Deepening of Voice, Excessive Sweating, Fatigue, Flushing, Heat Intolorance, Increase in Ring/Shoe/Hat Size, Palpitations, Polydipsia, Polyphagia, Polyuria, Other - Hematologic/Lymphatic Hematologic: absent: As Per HPI, Easy Bleeding, Easy Bruising, Lymphadenopathy, Other Past Patient History - Infectious Disease Hx of Infectious Diseases: None - Tetanus Immunizations Tetanus Immunization: Unknown - Past Medical History & Family History Past Medical History?: Yes - Past Social History Smoking Status: Never Smoked - CARDIAC Hx Congestive Heart Failure: Yes (with preserved EF) Hx Hypertension: Yes Hx Peripheral Edema: Yes - PULMONARY Hx Asthma: Yes Hx Chronic Obstructive Pulmonary Disease (COPD): Yes Hx Pneumonia: Yes - NEUROLOGICAL Hx Neurological Disorder: No - HEENT Hx HEENT Problems: Yes Hx Cataracts: Yes Other/Comment: Corneal replacement both eyes - RENAL Hx Chronic Kidney Disease: Yes Hx Kidney Stones: Yes - ENDOCRINE/METABOLIC Hx Hypothyroidism: Yes - HEMATOLOGICAL/ONCOLOGICAL Hx Anemia: Yes - INTEGUMENTARY Hx Dermatological Problems: No - MUSCULOSKELETAL/RHEUMATOLOGICAL Hx Arthritis: Yes Hx Osteoporosis: Yes - GASTROINTESTINAL Hx Gastritis: Yes - GENITOURINARY/GYNECOLOGICAL Hx Genitourinary Disorders: No - PSYCHIATRIC Hx Substance Use: No - SURGICAL HISTORY Hx Surgeries: Yes Hx Cataract Extraction: Yes Other/Comment: Vascular stents. Bone marrow aspiration. Corneal transplant. Permacath Insertion - ANESTHESIA Hx Anesthesia: Yes Hx Anesthesia Reactions: No Hx Malignant Hyperthermia: No Meds Allergies/Adverse Reactions: Allergies Allergy/AdvReac Type Severity Reaction Status Date / Time No Known Allergies Allergy Verified 06/23/18 07:26 - Medications Medications: Current Medications Albuterol/Ipratropium (Duoneb 3 Mg/0.5 Mg (3 Ml) Ud) 3 ml INH RQ6 PRN PRN Reason: Shortness of Breath Last Admin: 06/24/18 13:36 Dose: 3 ml Amlodipine Besylate (Norvasc) 10 mg PO DAILY [facility] Last Admin: 06/24/18 10:40 Dose: 10 mg Benzonatate (Tessalon Perles) 100 mg PO DAILY [facility] Last Admin: 06/24/18 10:39 Dose: 100 mg Calcium Acetate (Phoslo) 667 mg PO TIDCC [facility] Last Admin: 06/24/18 12:08 Dose: Not Given Dextrose (Dextrose 50% Inj) 0 ml IV STAT PRN; Protocol PRN Reason: Hypoglycemia Protocol Dextrose (Glutose 15) 0 gm PO ONCE PRN; Protocol PRN Reason: Hypoglycemia Protocol Fenofibrate (Tricor) 48 mg PO DAILY [facility] Last Admin: 06/24/18 10:39 Dose: 48 mg Fluticasone/Vilanterol (Breo Ellipta 100-25 Mcg Inh) 1 puff INH RQD [facility] Last Admin: 06/24/18 07:35 Dose: Not Given Glucagon (Glucagen Diagnostic Kit) 0 mg IM STAT PRN; Protocol PRN Reason: Hypoglycemia Protocol Dextrose (Dextrose 5% In Water 1000 Ml) 1,000 mls @ 0 mls/hr IV .Q0M PRN; Protocol PRN Reason: Hypoglycemia Protocol Piperacillin Sod/Tazobactam (Sod 2.25 gm/ Sodium Chloride) 100 mls @ 200 mls/hr IVPB Q8H [facility]; Protocol Stop: 07/04/18 11:01 Last Admin: 06/24/18 10:40 Dose: 200 mls/hr Moxifloxacin HCl (Avelox Iv 400mg/250ml Ns) 400 mg in 250 mls @ 167 mls/hr IVPB Q24H [facility]; Protocol Stop: 07/04/18 10:00 Last Admin: 06/24/18 14:32 Dose: 167 mls/hr Vancomycin HCl 1 gm/ Sodium (Chloride) 250 mls @ 166.7 mls/hr IVPB ONCE ONE; Protocol Stop: 06/24/18 17:29 Insulin Human Regular (Novolin R) 0 unit SC ACHS [facility]; Protocol Last Admin: 06/24/18 12:31 Dose: 2 unit Lactobacillus Acidophilus (Lactobacillus) 1 cap PO Q12H [facility] Levothyroxine Sodium (Synthroid) 100 mcg PO DAILY@0630 [facility] Last Admin: 06/24/18 05:55 Dose: 100 mcg Metoprolol Succinate (Toprol Xl) 25 mg PO DAILY [facility] Last Admin: 06/24/18 10:39 Dose: 25 mg Rosuvastatin Calcium (Crestor) 20 mg PO HS [facility] Sitagliptin Phosphate (Januvia) 25 mg PO DAILY [facility] Last Admin: 06/24/18 10:20 Dose: Not Given Physical Exam - Constitutional Appears: Non-toxic, No Acute Distress, Chronically Ill - Head Exam Head Exam: ATRAUMATIC, NORMOCEPHALIC - Eye Exam Eye Exam: absent: Scleral icterus Pupil Exam: NORMAL ACCOMODATION - ENT Exam ENT Exam: Mucous Membranes Dry, Normal External Ear Exam - Neck Exam Neck exam: Negative for: Lymphadenopathy - Respiratory Exam Respiratory Exam: Decreased Breath Sounds, Prolonged Expiratory Phase, Rhonchi - Cardiovascular Exam Cardiovascular Exam: REGULAR RHYTHM, +S1, +S2 - GI/Abdominal Exam GI & Abdominal Exam: Diminished Bowel Sounds, Distended, Soft. absent: Organomegaly, Pulsatile Mass, Rebound, Rigid, Tenderness - Rectal Exam Rectal Exam: Deferred - Exam Exam: NORMAL INSPECTION - Extremities Exam Extremities exam: Positive for: pedal pulses present. Negative for: calf tenderness, pedal edema, tenderness - Back Exam Back exam: absent: CVA tenderness (L), CVA tenderness (R) - Neurological Exam Neurological exam: Alert, CN II-XII Intact, Oriented x3, Reflexes Normal - Psychiatric Exam Psychiatric exam: Normal Mood - Skin Skin Exam: Dry Results - Vital Signs Recent Vital Signs: Last Vital Signs Temp 97.9 F 06/24/18 07:35 Pulse 104 H 06/24/18 07:35 Resp 18 06/24/18 07:35 BP 155/54 H 06/24/18 07:35 Pulse Ox 94 L 06/24/18 07:35 - Labs Result Diagrams: 06/24/18 07:18 06/24/18 07:18 Labs: Laboratory Results - last 24 hr 06/23/18 06/23/18 06/23/18 11:32 11:42 17:30 WBC RBC Hgb Hct MCV MCH MCHC RDW Plt Count MPV Neut % (Auto) Lymph % (Auto) O'Brien % (Auto) Eos % (Auto) Baso % (Auto) Neut # (Auto) Lymph # (Auto) O'Brien # (Auto) Eos # (Auto) Baso # (Auto) Neutrophils % (Manual) Band Neutrophils % Lymphocytes % (Manual) Monocytes % (Manual) Platelet Estimate Large Platelets Polychromasia Hypochromasia (manual) Anisocytosis (manual) Macrocytosis (manual) Sodium Potassium Chloride Carbon Dioxide Anion Gap BUN Creatinine Est GFR ( Amer) Est GFR (Non-Af Amer) POC Glucose (mg/dL) 109 Random Glucose Hemoglobin A1c 6.4 Calcium Phosphorus Magnesium Total Bilirubin AST ALT Alkaline Phosphatase Total Creatine Kinase < 20 L CK-MB (Mass) 0.37 Troponin I 0.0180 Total Protein Albumin Globulin Albumin/Globulin Ratio Influenza Typ A,B (EIA) 06/23/18 06/23/18 06/24/18 21:44 23:10 06:07 WBC RBC Hgb Hct MCV MCH MCHC RDW Plt Count MPV Neut % (Auto) Lymph % (Auto) O'Brien % (Auto) Eos % (Auto) Baso % (Auto) Neut # (Auto) Lymph # (Auto) O'Brien # (Auto) Eos # (Auto) Baso # (Auto) Neutrophils % (Manual) Band Neutrophils % Lymphocytes % (Manual) Monocytes % (Manual) Platelet Estimate Large Platelets Polychromasia Hypochromasia (manual) Anisocytosis (manual) Macrocytosis (manual) Sodium Potassium Chloride Carbon Dioxide Anion Gap BUN Creatinine Est GFR ( Amer) Est GFR (Non-Af Amer) POC Glucose (mg/dL) 185 H 101 Random Glucose Hemoglobin A1c Calcium Phosphorus Magnesium Total Bilirubin AST ALT Alkaline Phosphatase Total Creatine Kinase < 20 L CK-MB (Mass) 0.33 Troponin I 0.0430 Total Protein Albumin Globulin Albumin/Globulin Ratio Influenza Typ A,B (EIA) 06/24/18 06/24/18 06/24/18 07:18 07:18 11:39 WBC 30.5 H RBC 2.58 L Hgb 8.3 L Hct 25.8 L MCV 100.2 H MCH 32.2 H MCHC 32.2 L RDW 20.1 H Plt Count 80 L MPV 9.4 Neut % (Auto) 50.4 Lymph % (Auto) 15.3 L O'Brien % (Auto) 34.0 H Eos % (Auto) 0.2 Baso % (Auto) 0.1 Neut # (Auto) 15.4 H Lymph # (Auto) 4.7 H O'Brien # (Auto) 10.4 H Eos # (Auto) 0.1 Baso # (Auto) 0.0 Neutrophils % (Manual) 52 Band Neutrophils % 1 Lymphocytes % (Manual) 13 L Monocytes % (Manual) 34 H Platelet Estimate Decreased L Large Platelets Present Polychromasia Slight Hypochromasia (manual) Slight Anisocytosis (manual) Moderate Macrocytosis (manual) Slight Sodium 138 Potassium 4.2 Chloride 98 Carbon Dioxide 34 H Anion Gap 10 BUN 23 H Creatinine 2.5 H Est GFR ( Amer) 22 Est GFR (Non-Af Amer) 18 POC Glucose (mg/dL) 223 H Random Glucose 117 H Hemoglobin A1c Calcium 7.8 L Phosphorus 3.3 Magnesium 1.9 Total Bilirubin 0.6 AST 30 ALT 10 Alkaline Phosphatase 52 Total Creatine Kinase CK-MB (Mass) Troponin I Total Protein 7.9 Albumin 3.5 Globulin 4.4 H Albumin/Globulin Ratio 0.8 L Influenza Typ A,B (EIA) 06/24/18 13:18 WBC RBC Hgb Hct MCV MCH MCHC RDW Plt Count MPV Neut % (Auto) Lymph % (Auto) O'Brien % (Auto) Eos % (Auto) Baso % (Auto) Neut # (Auto) Lymph # (Auto) O'Brien # (Auto) Eos # (Auto) Baso # (Auto) Neutrophils % (Manual) Band Neutrophils % Lymphocytes % (Manual) Monocytes % (Manual) Platelet Estimate Large Platelets Polychromasia Hypochromasia (manual) Anisocytosis (manual) Macrocytosis (manual) Sodium Potassium Chloride Carbon Dioxide Anion Gap BUN Creatinine Est GFR ( Amer) Est GFR (Non-Af Amer) POC Glucose (mg/dL) Random Glucose Hemoglobin A1c Calcium Phosphorus Magnesium Total Bilirubin AST ALT Alkaline Phosphatase Total Creatine Kinase CK-MB (Mass) Troponin I Total Protein Albumin Globulin Albumin/Globulin Ratio Influenza Typ A,B (EIA) Negative for flu a/b Assessment & Plan (1) CHF (congestive heart failure) Status: Acute (2) Chest pain Status: Acute (3) ESRD (end stage renal disease) Status: Acute (4) Pulmonary edema Status: Acute - Assessment and Plan (Free Text) Assessment: admitted with chest pain and pulm edema CXR suggestive of same Has Elevated WBC which is chronic await cultures- consider de-escalation if sepsis ruled out
[2018-06-24] MEDS: Lactobacillus Acidophilus 500 MU Cap PO SCH (21:00)
--- NOTE | 2018-06-24 22:55 | CP.PCM.PCO ---
Physician Communication Note - Physician Communication Note Physician Communication Note: Please see above
[2018-06-25] MEDS: Piperacillin/Tazobact 2.25 GM in Sodium Chloride 100 ML IVPB SCH ×3 (04:01→19:30)
[2018-06-25] MEDS: Albuterol-Ipratrop 3 mg / 0.5 (3 ml) UD INH PRN (04:25)
[2018-06-25] MEDS: Levothyroxine 100 MCG TAB PO SCH (05:36)
--- NOTE | 2018-06-25 07:30 | CP.PCM.PN ---
Subjective - Date & Time of Evaluation Date of Evaluation: 06/25/18 Time of Evaluation: 08:00 - Subjective Subjective: PGY1 Medicine progress note for Dr. Montes Pt seen and examined at bedside and in no acute distress. Overnight, pt reports waking up at 1130 pm, with complaints of left sided chest pressure and difficulty breathing. She was given duoneb treatments and feels better currently, although not at baseline breathing. She still complains of lower back pain, secondary to compression fracture in late May. Patient currently denies any fevers, chills, headache, numbness or tingling, bleeding or new bruising, shortness of breath, cough, chest pain, palpitations, abdominal pain, nausea, vomiting, or diarrhea, hematochezia, melena. Objective - Vital Signs/Intake and Output Vital Signs (last 24 hours): Temp Pulse Resp BP Pulse Ox 98.1 F 91 H 20 146/67 96 06/24/18 23:10 06/25/18 00:05 06/24/18 23:10 06/24/18 23:10 06/24/18 23:10 - Medications Medications: Current Medications Albuterol/Ipratropium (Duoneb 3 Mg/0.5 Mg (3 Ml) Ud) 3 ml INH RQ6 PRN PRN Reason: Shortness of Breath Last Admin: 06/25/18 04:25 Dose: 3 ml Amlodipine Besylate (Norvasc) 10 mg PO DAILY [facility] Last Admin: 06/24/18 10:40 Dose: 10 mg Benzonatate (Tessalon Perles) 100 mg PO DAILY [facility] Last Admin: 06/24/18 10:39 Dose: 100 mg Calcium Acetate (Phoslo) 667 mg PO TIDCC [facility] Last Admin: 06/24/18 17:15 Dose: Not Given Dextrose (Dextrose 50% Inj) 0 ml IV STAT PRN; Protocol PRN Reason: Hypoglycemia Protocol Dextrose (Glutose 15) 0 gm PO ONCE PRN; Protocol PRN Reason: Hypoglycemia Protocol Fenofibrate (Tricor) 48 mg PO DAILY [facility] Last Admin: 06/24/18 10:39 Dose: 48 mg Fluticasone/Vilanterol (Breo Ellipta 100-25 Mcg Inh) 1 puff INH RQD [facility] Last Admin: 06/24/18 07:35 Dose: Not Given Glucagon (Glucagen Diagnostic Kit) 0 mg IM STAT PRN; Protocol PRN Reason: Hypoglycemia Protocol Dextrose (Dextrose 5% In Water 1000 Ml) 1,000 mls @ 0 mls/hr IV .Q0M PRN; Protocol PRN Reason: Hypoglycemia Protocol Piperacillin Sod/Tazobactam (Sod 2.25 gm/ Sodium Chloride) 100 mls @ 200 mls/hr IVPB Q8H [facility]; Protocol Stop: 07/04/18 11:01 Last Admin: 06/25/18 04:01 Dose: 200 mls/hr Moxifloxacin HCl (Avelox Iv 400mg/250ml Ns) 400 mg in 250 mls @ 167 mls/hr IVPB Q24H [facility]; Protocol Stop: 07/04/18 10:00 Last Admin: 06/24/18 14:32 Dose: 167 mls/hr Insulin Human Regular (Novolin R) 0 unit SC ACHS [facility]; Protocol Last Admin: 06/24/18 22:32 Dose: Not Given Lactobacillus Acidophilus (Lactobacillus) 1 cap PO Q12H [facility] Last Admin: 06/24/18 21:00 Dose: 1 cap Levothyroxine Sodium (Synthroid) 100 mcg PO DAILY@0630 [facility] Last Admin: 06/25/18 05:36 Dose: 100 mcg Metoprolol Succinate (Toprol Xl) 25 mg PO DAILY [facility] Last Admin: 06/24/18 10:39 Dose: 25 mg Rosuvastatin Calcium (Crestor) 20 mg PO HS [facility] Last Admin: 06/24/18 21:29 Dose: 20 mg Sitagliptin Phosphate (Januvia) 25 mg PO DAILY [facility] Last Admin: 06/24/18 10:20 Dose: Not Given - Labs Labs: 06/24/18 07:18 06/24/18 07:18 PT 13.4 SECONDS (9.7-12.2) H 06/23/18 07:55 INR 1.2 06/23/18 07:55 APTT 34 SECONDS (21-34) 06/23/18 07:55 - Constitutional Appears: Non-toxic, No Acute Distress - Eye Exam Eye Exam: EOMI - ENT Exam ENT Exam: Mucous Membranes Moist - Respiratory Exam Respiratory Exam: Chest Wall Tenderness (left sternum), Rales (most notably at the bases, but heard through all lung singh), NORMAL BREATHING PATTERN. absent: Accessory Muscle Use, Decreased Breath Sounds, Rhonchi, Wheezes, Respiratory Distress, Stridor - Cardiovascular Exam Cardiovascular Exam: REGULAR RHYTHM, +S1, +S2 - GI/Abdominal Exam GI & Abdominal Exam: Soft, Normal Bowel Sounds. absent: Distended, Firm, Tenderness - Extremities Exam Extremities Exam: Normal Capillary Refill, Pedal Edema (trace pitting edema to bilateral lower extremities). absent: Calf Tenderness - Back Exam Back Exam: paraspinal tenderness (to the lumbar region, with hypertonicity). absent: CVA tenderness (L), CVA tenderness (R), vertebral tenderness - Neurological Exam Neurological Exam: Alert, Awake - Psychiatric Exam Psychiatric exam: Normal Affect, Normal Mood - Skin Skin Exam: Dry, Normal Color, Warm Assessment and Plan - Assessment and Plan (Free Text) Assessment: This is an 83 year old female with history of ESRD on HD TTS, COPD, PVD ,CHF with preserved EF, HTN, myelodyplastic syndrome, hypothyroidism and recent pneumonia who presents with daughters for complaints of shortness of breath and chest tightness. Plan: HF with preserved EF Exacerbation Pt will receive HD today due to increased pulmonary edema and worsening renal function Troponin x3 has been negative Continue Toprol xl 25mg po daily Continue to monitor Is and Os Fluid restrict 1.5 L/day Possible Health care associated Pneumonia Could be residual from prior pneumonia as it has been 6 weeks since her treatment CXR (06/23/18): borderline pulmonary vascular congestion. persistent left basilar opacity comprised of pleural effusion with atelectasis/ infiltrate likely underlying this opacity CXR (06/24/18): no interval change in moderate left pleural effusion and underlying infiltrate left base. pulm vascular congestion pattern persists. IR, Dr. Longoria, consulted for pleural effusion Thoracentesis well tolerated (06/25), 450 cc of slight serosanguinous material aspirated F/u culture and pleural fluid studies Dr. Rodriguez, ID, consulted. Recommendations appreciated. Legionella Ag is negative Flu A/B negative Because of increased WBC (30.8 from 24.1) antibiotics were started WBC trending down * Zosyn 2.25gm q8h (06/24) * Avelox 400mg ivpb q24h (06/24) * Vanco 1 gm given on 06/24/18 Pt afebrile during admission, will consider discontinuing antibiotic after negative cultures. 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 Recommendations appreciated. ESRD on HD - via R permacath Dr. Langston consulted, help appreciated Pt will be dialyzed today due to worsening sob May require altering of regular TTS schedule due to increased symptoms of fluid overload between S and T dialysis Phoslo 667mg po TIDCC Hx Thrombocytopenia/ Hx Myelodysplastic Syndrome PLT are stable at 75 PT/PTT/INR is 13.9/32/1.3 (stable) Continue to hold Prasugrel Outpt heme/onc: Dr. Landy Day DMII HgbA1c is 6.4 Continue Januvia 25mg po daily, with RISS low dose ACHS for coverage Hypoglycemia protocol HTN Norvasc 10mg po daily HLD Tricor 48mg po daily Crestor 20mg po HS renally dosed to Crestor 10 mg PO HS Lipid panel: Chol 107, Triglycerides 98, LDL 39, HDL 37 Hx PVD with b/l Leg Stents Tricor 48mg po daily Crestor 20mg po HS Continue to hold Prasugrel 2/2 thrombocytopenia 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) Hg/HCT stable (8.2/25.4) Continue to monitor Hypothyroidism Continue Synthroid 100mcg po daily TSH: 2.92 Free T4: 1.51 Prophylaxis SCDs VTE contraindicated 2/2 thromybocytopenia No indications for GI ppx at this time. Case discussed with Dr. Simon Clinton PGY1
[2018-06-25] MEDS: (Novolin R) Insulin Human Regular 100 units/ml vial SC SCH ×4 (07:38→22:14)
[2018-06-25] MEDS: Lactobacillus Acidophilus 500 MU Cap PO SCH ×2 (07:46→22:48)
[2018-06-25 07:48] LABS: BASO % 0.1 % (0.0-2.0); EOS # 0.1 K/uL (0.0-0.7); EOS % 0.2 % (0.0-4.0); HEMOGLOBIN 8.2 g/dL (11.0-16.0); LYMPH % 7.6 % (20.0-40.0); MEAN CELL VOLUME 100.7 fL (81.0-99.0); MEAN CORPUSCULAR HEMOGLOBIN 32.7 pg (27.0-31.0); MEAN CORPUSCULAR HGB CONC 32.5 g/dL (33.0-37.0); MEAN PLATELET VOLUME 9.1 fL (7.2-11.7); MONO # 8.6 K/uL (0.0-0.8); MONO % 33.4 % (0.0-10.0); NEUT # 15.2 K/uL (1.8-7.0); NEUT % 58.7 % (50.0-75.0); PLATELET COUNT 75 K/uL (130-400); RBC 2.51 Mil/uL (3.80-5.20); RED CELL DISTRIBUTION WIDTH 20.9 % (11.5-14.5); WHITE BLOOD COUNT 25.8 K/uL (4.8-10.8)
[2018-06-25 08:16] LABS: ALB/GLOB RATIO 0.8 (1.0-2.1); ALBUMIN 3.5 g/dL (3.5-5.0); ALT/SGPT < 6 U/L (9-52); AST/SGOT 25 U/L (14-36); BLOOD UREA NITROGEN 37 mg/dL (7-17); CALCIUM 7.6 mg/dl (8.6-10.4); GFR NON-AFRICAN AMERICAN 13
[2018-06-25] MEDS: Metoprolol Succinate 25 mg XL Tab PO SCH (09:30)
[2018-06-25 09:35] LABS: INR 1.3; PROTHROMBIN TIME 13.9 SECONDS (9.7-12.2)
[2018-06-25 10:10] LABS: BANDS 1 % (0-2)
[2018-06-25 10:11] LABS: ANISOCYTOSIS MODERATE; LYMPHOCYTE 8 % (20-40); MONOCYTE 33 % (0-10); NEUTROPHIL 58 % (50-75); PLATELET ESTIMATE DECREASED (NORMAL); TARGET CELLS SLIGHT; TOTAL CELLS COUNTED 100
--- NOTE | 2018-06-25 11:35 | PCM.SURG1 ---
Surgeon's Initial Post Op Note - Surgeon's Notes Surgeon: Festus Blood Spring Upholsterer: NONE Type of Anesthesia: Local Pre-Operative Diagnosis: Left pleural effusion Operative Findings: US showed moderate left pleural effusion Post-Operative Diagnosis: Left pleural effusion Operation Performed: US guided left thoracentesis Specimen/Specimens Removed: 450 cc os slight serosanguinous fluid Estimated Blood Loss: EBL {In ML}: 1 Blood Products Given: N/A Drains Used: No Drains Post-Op Condition: Fair Date of Surgery/Procedure: 06/25/18 Time of Surgery/Procedure: 11:30
--- NOTE | 2018-06-25 11:52 | CP.PCM.PN ---
Subjective - Date & Time of Evaluation Date of Evaluation: 06/25/18 Time of Evaluation: 09:00 - Subjective Subjective: went for thoracentesis Objective - Vital Signs/Intake and Output Vital Signs (last 24 hours): Temp Pulse Resp BP Pulse Ox 98.1 F 120 H 20 124/82 100 06/25/18 07:00 06/25/18 07:45 06/25/18 07:00 06/25/18 07:00 06/25/18 07:00 - Medications Medications: Current Medications Acetaminophen (Tylenol 325mg Tab) 650 mg PO Q6 PRN PRN Reason: Pain, moderate (4-7) Last Admin: 06/25/18 09:31 Dose: 650 mg Albuterol/Ipratropium (Duoneb 3 Mg/0.5 Mg (3 Ml) Ud) 3 ml INH RQ6 PRN PRN Reason: Shortness of Breath Last Admin: 06/25/18 04:25 Dose: 3 ml Amlodipine Besylate (Norvasc) 10 mg PO DAILY [facility] Last Admin: 06/24/18 10:40 Dose: 10 mg Benzonatate (Tessalon Perles) 100 mg PO DAILY [facility] Last Admin: 06/25/18 09:30 Dose: 100 mg Calcium Acetate (Phoslo) 667 mg PO TIDCC [facility] Last Admin: 06/25/18 07:46 Dose: Not Given Dextrose (Dextrose 50% Inj) 0 ml IV STAT PRN; Protocol PRN Reason: Hypoglycemia Protocol Dextrose (Glutose 15) 0 gm PO ONCE PRN; Protocol PRN Reason: Hypoglycemia Protocol Fenofibrate (Tricor) 48 mg PO DAILY [facility] Last Admin: 06/25/18 09:30 Dose: 48 mg Fluticasone/Vilanterol (Breo Ellipta 100-25 Mcg Inh) 1 puff INH RQD [facility] Last Admin: 06/24/18 07:35 Dose: Not Given Glucagon (Glucagen Diagnostic Kit) 0 mg IM STAT PRN; Protocol PRN Reason: Hypoglycemia Protocol Dextrose (Dextrose 5% In Water 1000 Ml) 1,000 mls @ 0 mls/hr IV .Q0M PRN; Protocol PRN Reason: Hypoglycemia Protocol Piperacillin Sod/Tazobactam (Sod 2.25 gm/ Sodium Chloride) 100 mls @ 200 mls/hr IVPB Q8H [facility]; Protocol Stop: 07/04/18 11:01 Last Admin: 06/25/18 04:01 Dose: 200 mls/hr Moxifloxacin HCl (Avelox Iv 400mg/250ml Ns) 400 mg in 250 mls @ 167 mls/hr IVPB Q24H [facility]; Protocol Stop: 07/04/18 10:00 Last Admin: 06/24/18 14:32 Dose: 167 mls/hr Insulin Human Regular (Novolin R) 0 unit SC ACHS [facility]; Protocol Last Admin: 06/25/18 07:38 Dose: Not Given Lactobacillus Acidophilus (Lactobacillus) 1 cap PO Q12H [facility] Last Admin: 06/25/18 07:46 Dose: 1 cap Levothyroxine Sodium (Synthroid) 100 mcg PO DAILY@0630 [facility] Last Admin: 06/25/18 05:36 Dose: 100 mcg Metoprolol Succinate (Toprol Xl) 25 mg PO DAILY [facility] Last Admin: 06/25/18 09:30 Dose: 25 mg Rosuvastatin Calcium (Crestor) 10 mg PO HS [facility] Sitagliptin Phosphate (Januvia) 25 mg PO DAILY [facility] Last Admin: 06/25/18 09:31 Dose: 25 mg - Labs Labs: 06/25/18 07:37 06/25/18 07:37 PT 13.9 SECONDS (9.7-12.2) H 06/25/18 09:21 INR 1.3 06/25/18 09:21 APTT 32 SECONDS (21-34) 06/25/18 09:21 - Constitutional Appears: Non-toxic, Chronically Ill - Head Exam Head Exam: NORMOCEPHALIC - Eye Exam Eye Exam: absent: Nystagmus - ENT Exam ENT Exam: Mucous Membranes Dry - Neck Exam Neck Exam: absent: Lymphadenopathy - Respiratory Exam Respiratory Exam: Decreased Breath Sounds - Cardiovascular Exam Cardiovascular Exam: REGULAR RHYTHM - GI/Abdominal Exam GI & Abdominal Exam: Distended, Soft Assessment and Plan (1) CHF (congestive heart failure) Status: Acute (2) Chest pain Status: Acute (3) ESRD (end stage renal disease) Status: Acute (4) Pulmonary edema Status: Acute
--- NOTE | 2018-06-25 12:51 | CP.PCM.PN ---
Subjective - Date & Time of Evaluation Date of Evaluation: 06/25/18 Time of Evaluation: 12:48 - Subjective Subjective: s/p thoracentesis- UF 450ml has been dyspneic this AM- less SOB now labs reviewed- Hg decreased HTN controlled Objective - Vital Signs/Intake and Output Vital Signs (last 24 hours): Temp Pulse Resp BP Pulse Ox 98.1 F 120 H 20 124/82 100 06/25/18 07:00 06/25/18 07:45 06/25/18 07:00 06/25/18 07:00 06/25/18 07:00 - Medications Medications: Current Medications Acetaminophen (Tylenol 325mg Tab) 650 mg PO Q6 PRN PRN Reason: Pain, moderate (4-7) Last Admin: 06/25/18 09:31 Dose: 650 mg Albuterol/Ipratropium (Duoneb 3 Mg/0.5 Mg (3 Ml) Ud) 3 ml INH RQ6 PRN PRN Reason: Shortness of Breath Last Admin: 06/25/18 04:25 Dose: 3 ml Amlodipine Besylate (Norvasc) 10 mg PO DAILY [facility] Last Admin: 06/24/18 10:40 Dose: 10 mg Benzonatate (Tessalon Perles) 100 mg PO DAILY [facility] Last Admin: 06/25/18 09:30 Dose: 100 mg Calcium Acetate (Phoslo) 667 mg PO TIDCC [facility] Last Admin: 06/25/18 07:46 Dose: Not Given Dextrose (Dextrose 50% Inj) 0 ml IV STAT PRN; Protocol PRN Reason: Hypoglycemia Protocol Dextrose (Glutose 15) 0 gm PO ONCE PRN; Protocol PRN Reason: Hypoglycemia Protocol Fenofibrate (Tricor) 48 mg PO DAILY [facility] Last Admin: 06/25/18 09:30 Dose: 48 mg Fluticasone/Vilanterol (Breo Ellipta 100-25 Mcg Inh) 1 puff INH RQD [facility] Last Admin: 06/24/18 07:35 Dose: Not Given Glucagon (Glucagen Diagnostic Kit) 0 mg IM STAT PRN; Protocol PRN Reason: Hypoglycemia Protocol Dextrose (Dextrose 5% In Water 1000 Ml) 1,000 mls @ 0 mls/hr IV .Q0M PRN; Protocol PRN Reason: Hypoglycemia Protocol Piperacillin Sod/Tazobactam (Sod 2.25 gm/ Sodium Chloride) 100 mls @ 200 mls/hr IVPB Q8H [facility]; Protocol Stop: 07/04/18 11:01 Last Admin: 06/25/18 04:01 Dose: 200 mls/hr Moxifloxacin HCl (Avelox Iv 400mg/250ml Ns) 400 mg in 250 mls @ 167 mls/hr IVPB Q24H [facility]; Protocol Stop: 07/04/18 10:00 Last Admin: 06/24/18 14:32 Dose: 167 mls/hr Insulin Human Regular (Novolin R) 0 unit SC ACHS [facility]; Protocol Last Admin: 06/25/18 07:38 Dose: Not Given Lactobacillus Acidophilus (Lactobacillus) 1 cap PO Q12H [facility] Last Admin: 06/25/18 07:46 Dose: 1 cap Levothyroxine Sodium (Synthroid) 100 mcg PO DAILY@0630 [facility] Last Admin: 06/25/18 05:36 Dose: 100 mcg Metoprolol Succinate (Toprol Xl) 25 mg PO DAILY [facility] Last Admin: 06/25/18 09:30 Dose: 25 mg Rosuvastatin Calcium (Crestor) 10 mg PO HS [facility] Sitagliptin Phosphate (Januvia) 25 mg PO DAILY [facility] Last Admin: 06/25/18 09:31 Dose: 25 mg - Labs Labs: 06/25/18 07:37 06/25/18 07:37 PT 13.9 SECONDS (9.7-12.2) H 06/25/18 09:21 INR 1.3 06/25/18 09:21 APTT 32 SECONDS (21-34) 06/25/18 09:21 - Constitutional Appears: No Acute Distress, Chronically Ill - Head Exam Head Exam: ATRAUMATIC, NORMAL INSPECTION - Eye Exam Eye Exam: EOMI, Normal appearance - Neck Exam Neck Exam: Normal Inspection. absent: Tenderness - Respiratory Exam Respiratory Exam: Decreased Breath Sounds, NORMAL BREATHING PATTERN - Cardiovascular Exam Cardiovascular Exam: REGULAR RHYTHM, +S1 - GI/Abdominal Exam GI & Abdominal Exam: Soft. absent: Tenderness - Extremities Exam Extremities Exam: absent: Pedal Edema, Tenderness - Neurological Exam Neurological Exam: Alert, CN II-XII Intact - Skin Skin Exam: Dry, Warm Assessment and Plan - Assessment and Plan (Free Text) Assessment: ESRD Fluid overload pulmonary fibrosis severe chronic anemia Plan: extra dialysis Add ESAs pulm meds as per medicine
[2018-06-25] MEDS: Fluticasone-Vilanterol 100/25mcg Diskus INH SCH (13:36)
--- NOTE | 2018-06-25 14:34 | CARD ---
APPROVED REPORT Date of service: 06/23/2018 EKG Measurement Heart [id number] <Conclusion> Normal sinus rhythm poss Left ventricular hypertrophy with repolarization abnormality Abnormal ECG
[2018-06-25 15:03] LABS: BODY FLUID TYPE PLEURAL
[2018-06-25 15:42] LABS: BF GROSS APPEARANCE CLOUDY (CLEAR)
[2018-06-25 15:43] LABS: BODY FLUID MONO/MACROPHAGE 1 % (0-0); BODY FLUID TOTAL COUNT 100 (0-0)
[2018-06-25] MEDS: MOXIFLOXACIN 400 MG/250 ML IVPB SCH (18:00)
[2018-06-25] MEDS: NS IVPB SCH (18:00)
[2018-06-26] MEDS: Albuterol-Ipratrop 3 mg / 0.5 (3 ml) UD INH PRN (00:20)
[2018-06-26] MEDS: Piperacillin/Tazobact 2.25 GM in Sodium Chloride 100 ML IVPB SCH ×2 (02:20→11:25)
[2018-06-26 06:34] LABS: BASO # 0.1 K/uL (0.0-0.2); BASO % 0.3 % (0.0-2.0); EOS # 0.1 K/uL (0.0-0.7); EOS % 0.3 % (0.0-4.0); HEMOGLOBIN 7.1 g/dL (11.0-16.0); LYMPH # 3.2 K/uL (1.0-4.3); LYMPH % 12.9 % (20.0-40.0); MEAN CELL VOLUME 100.3 fL (81.0-99.0); MEAN CORPUSCULAR HGB CONC 31.9 g/dL (33.0-37.0); MEAN PLATELET VOLUME 9.6 fL (7.2-11.7); MONO # 7.5 K/uL (0.0-0.8); MONO % 30.6 % (0.0-10.0); NEUT # 13.7 K/uL (1.8-7.0); NEUT % 55.9 % (50.0-75.0); PLATELET COUNT 87 K/uL (130-400); RBC 2.21 Mil/uL (3.80-5.20); RED CELL DISTRIBUTION WIDTH 20.5 % (11.5-14.5); WHITE BLOOD COUNT 24.5 K/uL (4.8-10.8)
--- NOTE | 2018-06-26 06:44 | CP.PCM.PN ---
Objective - Vital Signs/Intake and Output Vital Signs (last 24 hours): Temp Pulse Resp BP Pulse Ox 98.3 F 90 20 125/54 L 98 06/26/18 01:29 06/26/18 03:55 06/26/18 01:29 06/26/18 01:29 06/26/18 01:29 Intake and Output: 06/25/18 06/26/18 18:59 06:59 Intake Total 200 Balance 200 - Medications Medications: Current Medications Acetaminophen (Tylenol 325mg Tab) 650 mg PO Q6 PRN PRN Reason: Pain, moderate (4-7) Last Admin: 06/25/18 09:31 Dose: 650 mg Albuterol/Ipratropium (Duoneb 3 Mg/0.5 Mg (3 Ml) Ud) 3 ml INH RQ6 PRN PRN Reason: Shortness of Breath Last Admin: 06/26/18 00:20 Dose: 3 ml Amlodipine Besylate (Norvasc) 10 mg PO DAILY [facility] Last Admin: 06/24/18 10:40 Dose: 10 mg Benzonatate (Tessalon Perles) 100 mg PO DAILY [facility] Last Admin: 06/25/18 09:30 Dose: 100 mg Calcium Acetate (Phoslo) 667 mg PO TIDCC [facility] Last Admin: 06/25/18 18:02 Dose: Not Given Dextrose (Dextrose 50% Inj) 0 ml IV STAT PRN; Protocol PRN Reason: Hypoglycemia Protocol Dextrose (Glutose 15) 0 gm PO ONCE PRN; Protocol PRN Reason: Hypoglycemia Protocol Epoetin Brandon (Procrit) 10,000 unit IV TTS [facility] Fenofibrate (Tricor) 48 mg PO DAILY [facility] Last Admin: 06/25/18 09:30 Dose: 48 mg Fluticasone/Vilanterol (Breo Ellipta 100-25 Mcg Inh) 1 puff INH RQD [facility] Last Admin: 06/25/18 13:36 Dose: Not Given Glucagon (Glucagen Diagnostic Kit) 0 mg IM STAT PRN; Protocol PRN Reason: Hypoglycemia Protocol Dextrose (Dextrose 5% In Water 1000 Ml) 1,000 mls @ 0 mls/hr IV .Q0M PRN; Protocol PRN Reason: Hypoglycemia Protocol Piperacillin Sod/Tazobactam (Sod 2.25 gm/ Sodium Chloride) 100 mls @ 200 mls/hr IVPB Q8H [facility]; Protocol Stop: 07/04/18 11:01 Last Admin: 06/26/18 02:20 Dose: 200 mls/hr Moxifloxacin HCl (Avelox Iv 400mg/250ml Ns) 400 mg in 250 mls @ 167 mls/hr IVPB Q24H [facility]; Protocol Stop: 07/04/18 10:00 Last Admin: 06/25/18 18:00 Dose: 167 mls/hr Insulin Human Regular (Novolin R) 0 unit SC ACHS [facility]; Protocol Last Admin: 06/25/18 22:14 Dose: Not Given Lactobacillus Acidophilus (Lactobacillus) 1 cap PO Q12H [facility] Last Admin: 06/25/18 22:48 Dose: 1 cap Levothyroxine Sodium (Synthroid) 100 mcg PO DAILY@0630 [facility] Last Admin: 06/25/18 05:36 Dose: 100 mcg Metoprolol Succinate (Toprol Xl) 25 mg PO DAILY [facility] Last Admin: 06/25/18 09:30 Dose: 25 mg Rosuvastatin Calcium (Crestor) 10 mg PO HS [facility] Last Admin: 06/25/18 22:44 Dose: 10 mg Sitagliptin Phosphate (Januvia) 25 mg PO DAILY [facility] Last Admin: 06/25/18 09:31 Dose: 25 mg - Labs Labs: 06/25/18 07:37 06/25/18 07:37 PT 13.9 SECONDS (9.7-12.2) H 06/25/18 09:21 INR 1.3 06/25/18 09:21 APTT 32 SECONDS (21-34) 06/25/18 09:21
[2018-06-26] MEDS: Levothyroxine 100 MCG TAB PO SCH (06:45)
[2018-06-26 06:51] LABS: ALB/GLOB RATIO 0.8 (1.0-2.1); ALBUMIN 3.3 g/dL (3.5-5.0); CALCIUM 7.3 mg/dl (8.6-10.4)
[2018-06-26] MEDS: (Novolin R) Insulin Human Regular 100 units/ml vial SC SCH ×3 (07:28→17:24)
[2018-06-26] MEDS: Lactobacillus Acidophilus 500 MU Cap PO SCH (07:57)
[2018-06-26 08:35] LABS: ANISOCYTOSIS MODERATE; BANDS 4 % (0-2); LYMPHOCYTE 14 % (20-40); MONOCYTE 26 % (0-10); NEUTROPHIL 56 % (50-75); PLATELET ESTIMATE DECREASED (NORMAL); TOTAL CELLS COUNTED 100
[2018-06-26 08:36] LABS: HYPOCHROMIC SLIGHT; STOMATOCYTES SLIGHT
[2018-06-26] MEDS: Fluticasone-Vilanterol 100/25mcg Diskus INH SCH (09:25)
[2018-06-26] MEDS: Metoprolol Succinate 25 mg XL Tab PO SCH (09:58)
[2018-06-26] MEDS ORDERED: Epoetin Alfa 10,000 unit/ml Dialysis IV SCH (10:00)
[2018-06-26 11:27] LABS: HEMOGLOBIN 7.1 g/dL (11.0-16.0)
--- NOTE | 2018-06-26 11:31 | US ---
PROCEDURE: Date of procedure: 06/25/2018 Procedure: 1. Ultrasound-guided left thoracentesis, CPT 38734 Medications: 5cc 1% Lidocaine HISTORY: Left pleural effusion, shortness of breath TECHNIQUE: Following informed consent ,the Patients' left chest was marked. Procedure time-out was called, and the patient was placed in the sitting position and limited ultrasound showed a moderate left effusion. The patient's left back was prepped and draped in the usual sterile fashion. After the skin was anesthetized with lidocaine, a drainage catheter was advanced under ultrasound guidance into the pleural space. Ultrasound-guided thoracentesis was performed. A total of 450 cubic centimeters of slight serosanguinous fluid removed without complication. A Xeroform dressing was applied. IMPRESSION: Ultrasound guided left thoracentesis. There were no immediate complications.
[2018-06-26 12:59] VITALS: RESP 20
--- NOTE | 2018-06-26 13:35 | CP.PCM.DIS ---
Provider - Provider Date of Admission: 06/23/18 08:51 Attending physician: Pawel Abernathy MD Consults: 06/24/18 09:49 Infectious Disease Consult Routine Comment: Consulting Provider: Lamberto Rodriguez Consulting Physician: Lamberto Rodriguez Reason for Consult: Possible HCAP with risk for MDR. Renally dosed Vanc, Zosyn, Avelox 06/25/18 07:00 Radiology Consult Routine Comment: Consulting Provider: Bon Longoria Consulting Physician: Bon Longoria Reason for Consult: moderate left pleural effusion 06/25/18 10:56 Pulmonology Consult Routine Comment: Consulting Provider: Tj Hernandez Consulting Physician: Tj Hernandez Reason for Consult: copd, Time Spent in preparation of Discharge (in minutes): 35 Diagnosis - Discharge Diagnosis (1) LUCRECIA (acute kidney injury) Status: Acute (2) Acute CHF Status: Acute (3) Chest pain Status: Acute (4) Chronic anemia Status: Acute (5) Compression fracture Status: Acute (6) ESRD (end stage renal disease) Status: Acute (7) COPD (chronic obstructive pulmonary disease) Status: Chronic (8) Diabetes Status: Chronic (9) HTN (hypertension) Status: Chronic Hospital Course - Lab Results Lab Results: Micro Results 06/24/18 13:18 Urine,Clean Catch Urine Culture - Final Klebsiella Pneumoniae Ssp Pneu 06/24/18 12:30 Blood-Venous Blood Culture - Preliminary NO GROWTH AFTER 24 HOURS 06/24/18 12:00 Blood-Venous Blood Culture - Preliminary NO GROWTH AFTER 24 HOURS Most Recent Lab Values WBC 24.5 K/uL (4.8-10.8) H 06/26/18 06:24 RBC 2.21 Mil/uL (3.80-5.20) L 06/26/18 06:24 Hgb 7.1 g/dL (11.0-16.0) L 06/26/18 11:21 Hct 21.8 % (34.0-47.0) L 06/26/18 11:21 MCV 100.3 fL (81.0-99.0) H 06/26/18 06:24 MCH 32.0 pg (27.0-31.0) H 06/26/18 06:24 MCHC 31.9 g/dL (33.0-37.0) L 06/26/18 06:24 RDW 20.5 % (11.5-14.5) H 06/26/18 06:24 Plt Count 87 K/uL (130-400) L 06/26/18 06:24 MPV 9.6 fL (7.2-11.7) 06/26/18 06:24 Neut % (Auto) 55.9 % (50.0-75.0) 06/26/18 06:24 Lymph % (Auto) 12.9 % (20.0-40.0) L 06/26/18 06:24 Kimble % (Auto) 30.6 % (0.0-10.0) H 06/26/18 06:24 Eos % (Auto) 0.3 % (0.0-4.0) 06/26/18 06:24 Baso % (Auto) 0.3 % (0.0-2.0) 06/26/18 06:24 Neut # (Auto) 13.7 K/uL (1.8-7.0) H 06/26/18 06:24 Lymph # (Auto) 3.2 K/uL (1.0-4.3) 06/26/18 06:24 Kimble # (Auto) 7.5 K/uL (0.0-0.8) H 06/26/18 06:24 Eos # (Auto) 0.1 K/uL (0.0-0.7) 06/26/18 06:24 Baso # (Auto) 0.1 K/uL (0.0-0.2) 06/26/18 06:24 Neutrophils % (Manual) 56 % (50-75) 06/26/18 06:24 Band Neutrophils % 4 % (0-2) H 06/26/18 06:24 Lymphocytes % (Manual) 14 % (20-40) L 06/26/18 06:24 Monocytes % (Manual) 26 % (0-10) H 06/26/18 06:24 Platelet Estimate Decreased (NORMAL) L 06/26/18 06:24 Large Platelets Present 06/24/18 07:18 Polychromasia Slight 06/24/18 07:18 Hypochromasia (manual) Slight 06/26/18 06:24 Anisocytosis (manual) Moderate 06/26/18 06:24 Macrocytosis (manual) Slight 06/26/18 06:24 Target Cells Slight 06/25/18 07:37 Stomatocytes Slight 06/26/18 06:24 PT 13.9 SECONDS (9.7-12.2) H 06/25/18 09:21 INR 1.3 06/25/18 09:21 APTT 32 SECONDS (21-34) 06/25/18 09:21 Sodium 136 mmol/L (132-148) 06/26/18 06:24 Potassium 3.9 mmol/L (3.6-5.2) 06/26/18 06:24 Chloride 99 mmol/L (98-107) 06/26/18 06:24 Carbon Dioxide 30 mmol/L (22-30) 06/26/18 06:24 Anion Gap 12 (10-20) 06/26/18 06:24 BUN 25 mg/dL (7-17) H 06/26/18 06:24 Creatinine 2.8 mg/dL (0.7-1.2) H 06/26/18 06:24 Est GFR ( Amer) 20 06/26/18 06:24 Est GFR (Non-Af Amer) 16 06/26/18 06:24 POC Glucose (mg/dL) 181 mg/dL (65-110) H 06/26/18 11:13 Random Glucose 133 mg/dL (65-105) H 06/26/18 06:24 Hemoglobin A1c 6.4 % (4.2-6.5) 06/23/18 11:42 Calcium 7.3 mg/dl (8.6-10.4) L 06/26/18 06:24 Phosphorus 3.3 mg/dL (2.5-4.5) 06/26/18 06:24 Magnesium 1.8 mg/dL (1.6-2.3) 06/26/18 06:24 % Saturation 37 (20-55) 06/26/18 06:24 Ferritin 677.0 ng/mL 06/26/18 06:24 Total Bilirubin 0.6 mg/dL (0.2-1.3) 06/26/18 06:24 AST 29 U/L (14-36) 06/26/18 06:24 ALT 6 U/L (9-52) L 06/26/18 06:24 Alkaline Phosphatase 47 U/L (38-126) 06/26/18 06:24 Total Creatine Kinase < 20 U/L (30-135) L 06/23/18 23:10 CK-MB (Mass) 0.33 ng/mL (0.0-3.38) 06/23/18 23:10 Troponin I 0.0430 ng/mL (0.00-0.120) 06/23/18 23:10 NT-Pro-B Natriuret Pep 95466 pg/mL (0-900) H 06/23/18 07:55 Total Protein 7.4 g/dL (6.3-8.3) 06/26/18 06:24 Albumin 3.3 g/dL (3.5-5.0) L 06/26/18 06:24 Globulin 4.1 gm/dL (2.2-3.9) H 06/26/18 06:24 Albumin/Globulin Ratio 0.8 (1.0-2.1) L 06/26/18 06:24 Triglycerides 98 mg/dL (0-149) 06/23/18 11:42 Cholesterol 107 mg/dL (0-199) 06/23/18 11:42 LDL Cholesterol Direct 39 mg/dL (0-129) 06/23/18 11:42 HDL Cholesterol 37 mg/dL (30-70) 06/23/18 11:42 Procalcitonin 0.40 NG/ML (0.19-0.49) 06/24/18 16:49 Free T4 1.51 ng/dL (0.78-2.19) 06/23/18 11:42 TSH 3rd Generation 2.92 mIU/L (0.46-4.68) 06/23/18 11:42 Fluid Source Pleural 06/25/18 15:01 Fluid Appearance Cloudy (CLEAR) 06/25/18 15:01 Fluid WBC 2212.0 /mm3 (0.0-300.0) H 06/25/18 15:01 Fluid RBC 62765.0 /mm3 (0.0-0.0) H 06/25/18 15:01 Fluid Tot Cell Count 100 (0-0) H 06/25/18 15:01 Fluid Neutrophils 95.0 % (0-0) H 06/25/18 15:01 Fluid Lymphocytes 4.0 % (0-0) H 06/25/18 15:01 Fld Monocyte/Macrophag 1 % (0-0) H 06/25/18 15:01 Fluid Comment 06/25/18 15:01 Hep Bs Antigen Negative (NEGATIVE) 06/23/18 11:42 Influenza Typ A,B (EIA) Negative for flu a/b (NEGATIVE) 06/24/18 13:18 Ur L.pneumophila Ag Negative (NEGATIVE) 06/24/18 13:18 - Hospital Course Hospital Course: On admission: HPI: Patient is a 83 year old female with history of ESRD on HD TTS, COPD, PVD ,CHF with preserved EF, HTN, myelodyplastic syndrome, hypothyroidism and recent pneumonia who presents with daughters for complaints of shortness of breath, described as inability to get enough air associated with chest tightness that started yesterday. According to her daughters who are at bedside, her shortness of breath has been progressively worsening since Monday. Patient admits to some nausea, but no vomiting. She states she felt similarly when she had pneumonia recently. She denies fevers, chills, headache, dizziness, palpitations, diarrhea, constipation. She states her stools remains brown, denies black or bloody stools. She continues to urinate a very small amount, denies dysuria, denies leg pain or swelling. Patient was recently admitted here for similar symptoms. Hospital course: Pt presented in fluid overload, with CXR showing pulmonary vascular congestion and pleural effusion. Nephrology, Dr. Leach, consulted. Troponin x3 was negative and EKGs showed no ischemic disease. Pt was started on home COPD medications and Duonebs. She was dialyzed on 06/23 with some relief of symptoms. Pt was noted to have leukocytosis, and antibiotics were started, although leukocytosis may be due to myelodysplastic syndrome. Dr. Rodriguez, infectious disease, consulted. Pt continued to have sob and rales on exam. She was dialyzed again on 06/25, and a thoracentesis was preforme by IR, with aspiration of 450 cc. This provided the pt significant relief of sypmtoms. Due to amount of pulmonary edema continued to be noted on cxr/chest ct, pt discharged on Avelox 400 mg PO daily to cover for klebseilla pnuemonia in the urine sensitive to ciprofloxacin and possible occult infiltrate. This is a summary of the hospital course, please see EMR for full details. Of note: Pt's pharmacy called and Avelox is not available. Avelox switched to levaquin 750 mg PO daily for 3 days (until 06/30/18). Discharge Exam - Additional Findings Additional findings: - Eye Exam Eye Exam: EOMI - ENT Exam ENT Exam: Mucous Membranes Moist - Respiratory Exam Respiratory Exam: Chest Wall Tenderness (left sternum), Mild and scant rales (most notably at the bases), NORMAL BREATHING PATTERN. absent: Accessory Muscle Use, Decreased Breath Sounds, Rhonchi, Wheezes, Respiratory Distress, Stridor - Cardiovascular Exam Cardiovascular Exam: REGULAR RHYTHM, +S1, +S2 - GI/Abdominal Exam GI & Abdominal Exam: Soft, Normal Bowel Sounds. absent: Distended, Firm, Tenderness - Extremities Exam Extremities Exam: Normal Capillary Refill, Pedal Edema (trace pitting edema to bilateral lower extremities). absent: Calf Tenderness - Back Exam Back Exam: paraspinal tenderness (to the lumbar region, with hypertonicity). absent: CVA tenderness (L), CVA tenderness (R), vertebral tenderness - Neurological Exam Neurological Exam: Alert, Awake - Psychiatric Exam Psychiatric exam: Normal Affect, Normal Mood - Skin Skin Exam: Dry, Normal Color, Warm Discharge Plan - Discharge Medications Prescriptions: Albuterol Sulfate [Proair Hfa] 0.09 mg IH Q6 PRN #1 inh PRN Reason: Cough Benzonatate [Tessalon Perles] 100 mg PO DAILY #30 sgl Fluticasone/Vilanterol 100/25 [Breo Ellipta 100-25 MCG INH] 1 puff INH RQD #1 dsk Moxifloxacin [Avelox] 400 mg PO DAILY 3 Days #3 tab - Follow Up Plan Condition: GUARDED Disposition: HOME/ ROUTINE Instructions: Dialysis Diet , Heart Failure, Adult (DC), Moxifloxacin (Systemic), Chest Pain (DC), End Stage Kidney Disease (DC), Thoracentesis (DC), Pulmonary Edema (GEN) Additional Instructions: Patient is medically stable for discharge home as per Dr. Montes Patient is to continue taking the following medications. Prescriptions have been provided in your chart. -Amlodipine 100 mg PO daily -Tessalon Perles 100 mg 1 tab by mouth daily at 8am -Breo Ellipta 100/25 one puff inhaled daily at 8am -Proair 1 puff as needed for symptoms -Phoslo 667 mg by mouth three times per day at 8am, 2pm, and 8pm -Tricor 48 mg 1 tab by mouth daily at 8am -Synthroid 100 mcg 1 tab by mouth daily at 8am -Metoprolol 25 mg 1 tab by mouth daily at 2pm -Crestor 10 mg 1 tab by mouth before bedtime -Januvia 20 mg 1 tab by mouth daily at 8am In addition to these medications, the patient should take Moxifloxacin 400 mg PO once daily for three days, starting 06/27/18 and completing on 06/30/18. Patient should continue her HD at her regular TTS schedule. Patient is to follow up with her Linen Worker, Dr. Day, within 1 week of discharge for her Myelodysplastic syndrome. Patient is to follow up with her Emergency Planning And Response Manager, Dr. Vallejo, within 1 week of discharge for COPD. Patient is to follow up with her Leisure Studies Professor, Dr. Langston within 1 week of discharge for her ESRD. In addition, please make sure to follow up with your primary care doctor for coordination of health care. If symptoms worsen, please return to nearest ED for evaluation. Referrals: Tj Hernandez MD [Staff Provider] - Kem Langston MD [Staff Provider] - Fuentes Clements MD [Family Provider] - Avel Day MD [Staff Provider] -
[2018-06-26] MEDS: NS IVPB SCH (14:28)
[2018-06-26] MEDS: MOXIFLOXACIN 400 MG/250 ML IVPB SCH (14:28)
--- NOTE | 2018-06-26 16:02 | CT ---
Date of service: 06/26/2018 CT chest without IV contrast Indication: r/o infiltrate, pulm edema Technique: Contiguous axial images were obtained through the chest without intravenous contrast enhancement. Sagittal and coronal reconstructions were generated and reviewed. This CT exam was performed using 1 or more of the following dose reduction techniques: Automated exposure control, adjustment of the MAA and/or kV according to patient size, and/or use of iterative reconstruction technique. Radiation dose (DLP): 625.7 MGy-cm. Comparison: CT chest without IV contrast performed 05/02/18 Findings: Right IJ approach dialysis catheter. Visualized portions of the inferior thyroid gland appear unremarkable. The mediastinal and hilar vascular structures appear within normal limits. Cardiomegaly. Dense coronary artery and valvular calcifications. Dense atherosclerotic calcification of the aorta and branches. The prominent mediastinal/prevascular adenopathy. Partially loculated moderate left pleural effusion with associated consolidation. Small right pleural effusion. Right basilar edema/infiltrate. Pulmonary venous congestion. No pneumothorax. Chronic elevation of the left hemidiaphragm. Limited visualization of the noncontrast upper abdomen: Pancreatic atrophy. Probable mild gallbladder sludge. Multilevel degenerative changes. Osseous demineralization. T12 and L1 compression fracture deformities re-identified. Interval development of mild T10 compression fracture deformity. Impression: Right IJ approach dialysis catheter. Cardiomegaly. Prominent mediastinal/prevascular adenopathy. Partially loculated moderate left pleural effusion with associated consolidation. Small right pleural effusion. Right basilar edema/infiltrate. Pulmonary venous congestion. Chronic elevation of the left hemidiaphragm. Limited visualization of the noncontrast upper abdomen: Pancreatic atrophy. Probable mild gallbladder sludge. T12 and L1 compression fracture deformities re-identified. Interval development of mild T10 compression fracture deformity.
[2018-06-26 16:51] VITALS: BP 136/57; PULSE 97; TEMP 98.9; O2SAT 97
[2018-06-27 22:24] LABS: TOTAL PROTEIN PLEURAL FLUID 3.1 g/dL
== END 2018-06-26 18:22 | disposition home or self-care (01) ==
LOC: C.ER 07:17 → C.9E 08:51 → C.6T 09:21
PROVIDERS: ADMIT Family Medicine; ATTEND Family Medicine
DX: R07.9 Chest pain, unspecified (principal); I13.2 Hypertensive heart and chronic kidney disease with heart failure and with stage 5 chronic kidney disease, or end stage renal disease; I50.9 Heart failure, unspecified; E11.51 Type 2 diabetes mellitus with diabetic peripheral angiopathy without gangrene; E11.22 Type 2 diabetes mellitus with diabetic chronic kidney disease; D46.9 Myelodysplastic syndrome, unspecified; J44.9 Chronic obstructive pulmonary disease, unspecified; D69.6 Thrombocytopenia, unspecified; D63.1 Anemia in chronic kidney disease; E03.9 Hypothyroidism, unspecified; E78.5 Hyperlipidemia, unspecified; N18.6 End stage renal disease; J84.10 Pulmonary fibrosis, unspecified; M54.5 Low back pain; M81.0 Age-related osteoporosis without current pathological fracture; Z79.84 Long term (current) use of oral hypoglycemic drugs; Z79.890 Hormone replacement therapy; Z87.01 Personal history of pneumonia (recurrent); Z99.2 Dependence on renal dialysis; Z87.442 Personal history of urinary calculi
CPT/HCPCS: 32555; 36415; 71045; 71046; 71250; 80053; 80061; 82728; 82948; 83036; 83615; 83735; 83880; 83986; 84100; 84145; 84157; 84439; 84443; 84484; 85014; 85018; 85025; 85027; 85610; 85730; 86403; 86738; 87040; 87086; 87181; 87340; 87449; 87804; 87899; 89051; 93005; 94640; 96374; 99285; G0257; G0378; J2270; J2280; J2405; J2543; J7050; Q4081

== ENCOUNTER 2018-07-12 15:55 | Inpatient (IN) | payer MEDICARE ==
[2018-07-12 15:59] VITALS: BMI 27.6
[2018-07-12 16:43] LABS: BASO # 0.1 K/uL (0.0-0.2); BASO % 0.4 % (0.0-2.0); EOS # 0.1 K/uL (0.0-0.7); EOS % 0.6 % (0.0-4.0); LYMPH # 2.2 K/uL (1.0-4.3); LYMPH % 12.6 % (20.0-40.0); MEAN CORPUSCULAR HEMOGLOBIN 33.1 pg (27.0-31.0); MEAN CORPUSCULAR HGB CONC 31.4 g/dL (33.0-37.0); MEAN PLATELET VOLUME 9.7 fL (7.2-11.7); MONO # 5.4 K/uL (0.0-0.8); MONO % 31.6 % (0.0-10.0); NEUT # 9.4 K/uL (1.8-7.0); NEUT % 54.8 % (50.0-75.0); NRBC % 0.1 % (0.0-2.0); PLATELET COUNT 70 K/uL (130-400); RBC 2.71 Mil/uL (3.80-5.20); WHITE BLOOD COUNT 17.2 K/uL (4.8-10.8)
[2018-07-12 16:49] LABS: MEAN CELL VOLUME 105.5 fL (81.0-99.0)
[2018-07-12 17:07] LABS: ALB/GLOB RATIO 0.8 (1.0-2.1); ALBUMIN 3.7 g/dL (3.5-5.0); ALT/SGPT < 6 U/L (9-52); AST/SGOT 48 U/L (14-36); B-TYPE NATRIURETIC PEPTIDE 14200 pg/mL (0-900); BLOOD UREA NITROGEN 16 mg/dL (7-17); CALCIUM 8.1 mg/dl (8.6-10.4); CK-MB 0.46 ng/mL (0.0-3.38); GFR NON-AFRICAN AMERICAN 33
--- NOTE | 2018-07-12 17:07 | C.PDOC ---
History Of Present Illness 83 y/o female brought in by family for evaluation of worsening SOB over the past 1-2 weeks. She has a PMHx of ESRD (on HD), CHF, pleural effusions, HTN, asthma, pneumonia, and diabetes. Patient completed hemodialysis earlier today. Patient reports sensation of chest tightness since March 2018 when she was put on Renvela for dialysis. Patient notes she stopped taking those pills but symptoms have persisted. She was seen by her lift manager Dr. Marion Day today, who was planning cardiac cath at [facility] for her. Time Seen by Provider: 07/12/18 16:04 Chief Complaint (Nursing): Shortness Of Breath History Per: Patient History/Exam Limitations: no limitations Onset/Duration Of Symptoms: Days Current Symptoms Are (Timing): Worse Past Medical History Reviewed: Historical Data, Nursing Documentation, Vital Signs Vital Signs: Last Vital Signs Temp 98.9 F 07/12/18 15:59 Pulse 84 07/12/18 15:59 Resp 20 07/12/18 16:25 BP 191/77 H 07/12/18 15:59 Pulse Ox 100 07/12/18 16:25 - Medical History PMH: Anemia, Arthritis, Asthma, Back Problems, CHF (with preserved EF), COPD, Diabetes, Gastritis, HTN, Hypothyroidism, Kidney Stones, Osteoporosis, Peripheral Edema, Pneumonia, End Stage Renal Disease (on HD T-Th-Mon), Chronic Kidney Disease - [facility] Procedures (05/01/18) ASSISTANCE WITH RESPIRATORY VENTILATION, 24-96 HRS, CPAP (03/19/17) ASSISTANCE WITH RESPIRATORY VENTILATION, >96 HRS, CPAP (03/24/18) DRAINAGE OF LEFT PLEURAL CAVITY, PERCUTANEOUS APPROACH (03/24/18) FLUOROSCOPY OF SUPERIOR VENA CAVA, GUIDANCE (03/24/18) INSERTION OF INFUSION DEV INTO SUP VENA CAVA, PERC APPROACH (05/01/18) INSERTION OF VAD INTO CHEST SUBCU/FASCIA, PERC APPROACH (03/24/18) INTRODUCTION OF SERUM/TOX/VACCINE INTO MUSCLE, PERC APPROACH (05/27/15) REMOVAL OF INFUSION DEVICE FROM UPPER VEIN, OPEN APPROACH (05/01/18) TRANSFUSE NONAUT RED BLOOD CELLS IN PERIPH VEIN, PERC (05/01/18) ULTRASONOGRAPHY OF PLEURA (03/04/18) ULTRASONOGRAPHY OF RIGHT JUGULAR VEINS, GUIDANCE (03/24/18) Family History: States: No Known Family Hx - Social History Hx Tobacco Use: No Hx Alcohol Use: No Hx Substance Use: No - Immunization History Hx Tetanus Toxoid Vaccination: No Hx Influenza Vaccination: No Hx Pneumococcal Vaccination: No Review Of Systems Constitutional: Negative for: Fever, Sweats Eyes: Negative for: Vision Change Cardiovascular: Positive for: Other (chest tightness). Negative for: Palpitations Respiratory: Positive for: Shortness of Breath. Negative for: Cough, Wheezing Gastrointestinal: Negative for: Nausea, Vomiting, Abdominal Pain, Diarrhea Genitourinary: Negative for: Dysuria, Hematuria Musculoskeletal: Negative for: Back Pain Neurological: Negative for: Weakness, Headache, Dizziness Physical Exam - Physical Exam Appears: Well, Non-toxic, No Acute Distress, Other (Speaking in full sentences) Skin: Normal Color, Warm, Dry, No Rash Head: Normacephalic Eye(s): bilateral: Normal Inspection Oral Mucosa: Moist Neck: Normal ROM, Supple Chest: No Tenderness, Other (dialysis catheter to right upper chest) Cardiovascular: Rhythm Regular, Murmur (4/6 holosystolic murmur) Respiratory: Decreased Breath Sounds (on the left), No Accessory Muscle Use, Rales (Mild rales at the bases), No Rhonchi, No Wheezing Gastrointestinal/Abdominal: Normal Exam, Bowel Sounds, Soft, No Tenderness Extremity: Normal ROM, No Pedal Edema, No Calf Tenderness Extremity: Bilateral: Atraumatic, No Pedal Edema, Normal Color And Temperature Pulses: Left Dorsalis Pedis: Normal, Right Dorsalis Pedis: Normal Neurological/Psych: Oriented x3, Normal Speech ED Course And Treatment - Laboratory Results Result Diagrams: 07/18/18 07:20 07/18/18 07:20 ECG: Interpreted By Me, Viewed By Me (sinus rhythm 77bpm, normal axis, no acute ST/T wave changes) ECG Interpretation: Normal Rate From EC O2 Sat by Pulse Oximetry: 100 (RA) Pulse Ox Interpretation: Normal - Radiology CXR: Interpreted by Me, Viewed By Me CXR Interpretation: Yes: Other (Large left-sided pleural effusion) Progress Note: Blood work, CXR, and EKG ordered and reviewed. - Physician Consult Information Time Consulting Physician Contacted: 17:51 Physician Contacted: Liz Hammer Outcome Of Conversation: Discussed patient with hospitalist (admits for Marija stewart), agrees with inpatient tele admission for large left pleural effusion, dyspnea, CHF, ESRD ON HD. Disposition - Disposition Disposition: HOSPITALIZED Disposition Time: 17:51 Condition: STABLE - Clinical Impression Clinical Impression: Pleural effusion, left, ESRD on hemodialysis, Dyspnea, ESRD (end stage renal disease) - Scribe Statement The provider has reviewed the documentation as recorded by the Ethan Velasquez Provider Attestation: All medical record entries made by the Giselleibe were at my direction and personally dictated by me. I have reviewed the chart and agree that the record accurately reflects my personal performance of the history, physical exam, medical decision making, and the department course for this patient. I have also personally directed, reviewed, and agree with the discharge instructions and disposition. Decision To Admit - Pt Status Changed To: Hospital Disposition Of: Inpatient - Admit Certification Admit to Inpatient:: After my assessment, the patient will require hospitalization for at least two midnights. This is because of the severity of symptoms shown, intensity of services needed, and/or the medical risk in this patient being treated as an outpatient. - InPatient: Physician Admission Certification: I certify that this patient requires 2 or more midnights of care for the following reason:: see notes - . Bed Request Type: Telemetry Admitting Physician: Liz Hammer Patient Diagnosis: Pleural effusion, left, Dyspnea, Acute CHF, ESRD on hemodialysis
[2018-07-12 17:09] LABS: EOSINOPHIL 1 % (0-4); LYMPHOCYTE 9 % (20-40); MONOCYTE 30 % (0-10); NEUTROPHIL 60 % (50-75); PLATELET ESTIMATE DECREASED (NORMAL); TOTAL CELLS COUNTED 100
[2018-07-12 17:10] LABS: ANISOCYTOSIS SLIGHT; HYPOCHROMIC SLIGHT; POIKILOCYTOSIS SLIGHT; TARGET CELLS SLIGHT
--- NOTE | 2018-07-12 17:32 | C.PDOC ---
Time Seen by Provider: 07/12/18 16:04 Chief Complaint (Nursing): Shortness Of Breath Past Medical History Vital Signs: Last Vital Signs Temp 98.9 F 07/12/18 15:59 Pulse 84 07/12/18 15:59 Resp 20 07/12/18 16:25 BP 191/77 H 07/12/18 15:59 Pulse Ox 100 07/12/18 16:25 - Medical History PMH: Anemia, Arthritis, Asthma, Back Problems, CHF (with preserved EF), COPD, Diabetes, Gastritis, HTN, Hypothyroidism, Kidney Stones, Osteoporosis, Peripheral Edema, Pneumonia, End Stage Renal Disease (on HD T-Th-Sat), Chronic Kidney Disease - [facility] Procedures (05/01/18) ASSISTANCE WITH RESPIRATORY VENTILATION, 24-96 HRS, CPAP (03/19/17) ASSISTANCE WITH RESPIRATORY VENTILATION, >96 HRS, CPAP (03/24/18) DRAINAGE OF LEFT PLEURAL CAVITY, PERCUTANEOUS APPROACH (03/24/18) FLUOROSCOPY OF SUPERIOR VENA CAVA, GUIDANCE (03/24/18) INSERTION OF INFUSION DEV INTO SUP VENA CAVA, PERC APPROACH (05/01/18) INSERTION OF VAD INTO CHEST SUBCU/FASCIA, PERC APPROACH (03/24/18) INTRODUCTION OF SERUM/TOX/VACCINE INTO MUSCLE, PERC APPROACH (05/27/15) REMOVAL OF INFUSION DEVICE FROM UPPER VEIN, OPEN APPROACH (05/01/18) TRANSFUSE NONAUT RED BLOOD CELLS IN PERIPH VEIN, PERC (05/01/18) ULTRASONOGRAPHY OF PLEURA (03/04/18) ULTRASONOGRAPHY OF RIGHT JUGULAR VEINS, GUIDANCE (03/24/18) Family History: States: Unknown Family Hx - Social History Hx Tobacco Use: No Hx Alcohol Use: No Hx Substance Use: No - Immunization History Hx Tetanus Toxoid Vaccination: No Hx Influenza Vaccination: No Hx Pneumococcal Vaccination: No ED Course And Treatment - Laboratory Results Result Diagrams: 07/12/18 16:36 O2 Sat by Pulse Oximetry: 100 Disposition - Disposition Forms: [employer] (Chinese)
[2018-07-12 18:26] LABS: VENOUS BLOOD GAS BASE EXCESS 11.6 mmol/L (0.0-2.0); VENOUS BLOOD GAS PCO2 56 mmHg (40-60); VENOUS BLOOD GAS PO2 31 mm/Hg (30-55); VENOUS BLOOD PH 7.44 (7.32-7.43)
--- NOTE | 2018-07-12 20:25 | CP.PCM.HP ---
<Yovany Al - Last Filed: 07/13/18 01:40> History of Present Illness - History of Present Illness History of Present Illness: PGY-1 History and Physical for Dr[address] Finn Patient is an 83 year old female with PMhx DM, HTN, HLD, PVD, ESRD on HD TTS, COPD, hypothyroidism, CHF with preserved EF, anemia, pneumonia, and myelodysplastic syndrome who is well known to our service. She presents this evening with chronic but acutely worsening shortness of breath. Patient states having shortness of breath for the past two months. Over the past couple of days her breathing has been getting worse. She went for dialysis this morning, and following dialysis she continued to be very short of breath. She went to see her motel keeper, Dr. Sisi Day and was noted to be satting at 70% on ID and was subsequently sent to [facility]. Patient has had multiple hospitalizations for similar symptoms, most recently discharged from [facility] for shortness of breath on 06/26. 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 Meds: -Tessalon Perles 100mg po daily -Breo Ellipta 100/25 one puff inhaled daily at 8am -Hydralazine 25 mg one tab by mouth three times per day at 8am, 2pm, and 8pm -Proair 1 puff as needed for symptoms -Norvasc 10 mg 1 tab by mouth daily at 8am -Phoslo 667 mg by mouth three times per day at 8am, 2pm, and 8pm -Tricor 48 mg 1 tab by mouth daily at 8am -Synthroid 100 mcg 1 tab by mouth daily at 8am -Metoprolol 25 mg 1 tab by mouth daily at 2pm -Crestor 20 mg 1 tab by mouth before bedtime -Januvia 25 mg 1 tab by mouth daily at 8am Allergies: NKDA PMD: Dr. Clements Nephro: Dr. Langston, hemodialysis at [facility] [address] T, Th, S via pe rmacath, no AVF Pulmonary: Dr. Hernandez Cardio: Dr. Sisi Day [phone] Hem/Onc: Dr. Avel Day [phone] Code Status: Full code Proxy: Bharati Keene (First Daughter, ) and Ayla ( Second daughter, ) Present on Admission - Present on Admission Any Indicators Present on Admission: No Review of Systems - Constitutional Constitutional: absent: Chills, Fever - EENT Eyes: absent: Blurred Vision, Diplopia Nose/Mouth/Throat: absent: Nasal Congestion, Nasal Discharge - Cardiovascular Cardiovascular: absent: Chest Pain, Chest Pain at Rest, Edema, Palpitations Additional comments: Chest tightness a/w SOB - Respiratory Respiratory: Dyspnea, Dyspnea on Exertion. absent: Cough, Wheezing - Genitourinary Genitourinary: absent: Dysuria, Flank Pain - Musculoskeletal Musculoskeletal: absent: Back Pain, Neck Pain - Neurological Neurological: absent: Dizziness, Focal Weakness, Headaches - Psychiatric Psychiatric: absent: Anxiety, Depression - Endocrine Endocrine: absent: Fatigue, Palpitations Past Patient History - Infectious Disease Hx of Infectious Diseases: None - Tetanus Immunizations Tetanus Immunization: Unknown - Past Medical History & Family History Past Medical History?: Yes - Past Social History Smoking Status: Never Smoked - CARDIAC Hx Congestive Heart Failure: Yes (with preserved EF) Hx Hypertension: Yes Hx Peripheral Edema: Yes - PULMONARY Hx Asthma: Yes Hx Chronic Obstructive Pulmonary Disease (COPD): Yes Hx Pneumonia: Yes - NEUROLOGICAL Hx Neurological Disorder: No - HEENT Hx HEENT Problems: Yes Hx Cataracts: Yes Other/Comment: Corneal replacement both eyes - RENAL Hx Chronic Kidney Disease: Yes Hx Kidney Stones: Yes - ENDOCRINE/METABOLIC Hx Hypothyroidism: Yes - HEMATOLOGICAL/ONCOLOGICAL Hx Anemia: Yes - INTEGUMENTARY Hx Dermatological Problems: No - MUSCULOSKELETAL/RHEUMATOLOGICAL Hx Arthritis: Yes Hx Osteoporosis: Yes - GASTROINTESTINAL Hx Gastritis: Yes - GENITOURINARY/GYNECOLOGICAL Hx Genitourinary Disorders: No - PSYCHIATRIC Hx Substance Use: No - SURGICAL HISTORY Hx Surgeries: Yes Hx Cataract Extraction: Yes Other/Comment: Vascular stents. Bone marrow aspiration. Corneal transplant. Permacath Insertion - ANESTHESIA Hx Anesthesia: Yes Hx Anesthesia Reactions: No Hx Malignant Hyperthermia: No Meds Allergies/Adverse Reactions: Allergies Allergy/AdvReac Type Severity Reaction Status Date / Time No Known Allergies Allergy Verified 07/12/18 15:59 Physical Exam - Constitutional Appears: Non-toxic, No Acute Distress - Head Exam Head Exam: ATRAUMATIC, NORMOCEPHALIC - Eye Exam Eye Exam: EOMI - ENT Exam ENT Exam: Mucous Membranes Moist - Respiratory Exam Respiratory Exam: Rales (L lung). absent: Accessory Muscle Use, Wheezes - Cardiovascular Exam Cardiovascular Exam: REGULAR RHYTHM, +S1, +S2 Additional comments: R chest permacath - GI/Abdominal Exam GI & Abdominal Exam: Normal Bowel Sounds, Soft. absent: Tenderness - Extremities Exam Extremities exam: Positive for: normal inspection. Negative for: pedal edema, tenderness - Neurological Exam Neurological exam: Alert, CN II-XII Intact, Oriented x3 - Psychiatric Exam Psychiatric exam: Normal Affect, Normal Mood - Skin Skin Exam: Dry, Intact Results - Vital Signs Recent Vital Signs: Last Vital Signs Temp 98.9 F 07/12/18 15:59 Pulse 90 07/12/18 19:20 Resp 20 07/12/18 19:20 BP 134/70 07/12/18 19:20 Pulse Ox 99 07/12/18 19:20 - Labs Result Diagrams: 07/12/18 16:36 07/12/18 16:36 Labs: Laboratory Results - last 24 hr 07/12/18 07/12/18 07/12/18 16:36 16:36 18:22 WBC 17.2 H RBC 2.71 L Hgb 9.0 L Hct 28.5 L MCV 105.5 H D MCH 33.1 H MCHC 31.4 L RDW 22.0 H Plt Count 70 L MPV 9.7 Neut % (Auto) 54.8 Lymph % (Auto) 12.6 L [place] % (Auto) 31.6 H Eos % (Auto) 0.6 Baso % (Auto) 0.4 Neut # (Auto) 9.4 H Lymph # (Auto) 2.2 [place] # (Auto) 5.4 H Eos # (Auto) 0.1 Baso # (Auto) 0.1 Neutrophils % (Manual) 60 Lymphocytes % (Manual) 9 L Monocytes % (Manual) 30 H Eosinophils % (Manual) 1 Platelet Estimate Decreased L Hypochromasia (manual) Slight Poikilocytosis (manual Slight Anisocytosis (manual) Slight Target Cells Slight pO2 31 VBG pH 7.44 H VBG pCO2 56 VBG HCO3 33.0 VBG Total CO2 39.7 H VBG O2 Sat (Calc) 63.4 VBG Base Excess 11.6 H VBG Potassium 4.0 Glucose 123 H Lactate 1.0 Sodium 136 138.0 Potassium 3.8 Chloride 97 L 105.0 Carbon Dioxide 33 H Anion Gap 10 BUN 16 Creatinine 1.5 H Est GFR ( Amer) 40 Est GFR (Non-Af Amer) 33 Random Glucose 150 H Calcium 8.1 L Total Bilirubin 0.8 AST 48 H D ALT < 6 L Alkaline Phosphatase 53 Total Creatine Kinase 22 L CK-MB (Mass) 0.46 Troponin I 0.0170 NT-Pro-B Natriuret Pep 33747 H Total Protein 8.3 Albumin 3.7 Globulin 4.6 H Albumin/Globulin Ratio 0.8 L Venous Blood Potassium 4.0 Assessment & Plan - Assessment and Plan (Free Text) Assessment: 83 year old female with CHF, COPD, ESRD on HD, and multiple additional medical conditions/comorbidities presents with acutely worsening shortness of breath, found to lave large left-sided pleural effusion on chest XR. Large L Pleural Effusion -IR Thoracentesis for tomorrow -Monitor symptoms overnight HF with preserved [place] [address] (compared to 06/23/2018 @ 42916 ) -HD TTS - had outpatient earlier today -Metoprolol 50 mg daily ESRD on HD T-S -via R permacath -Dialysis earlier today ([facility]) -Dr. Langston consulted, help appreciated -Phoslo 667mg po TIDCC Chest Tightness -Likely 2/2 shortness of breath/pleural effusion -Initial JAIME negative -f/u JAIME 2am, 8am Hx Thrombocytopenia/ Hx Myelodysplastic Syndrome -platelets 70. 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 Huam Al, PGY-1 <Rafael Finn - Last Filed: 07/13/18 06:25> Results - Vital Signs Recent Vital Signs: Last Vital Signs Temp 98.2 F 07/12/18 23:20 Pulse 84 07/13/18 04:03 Resp 20 07/12/18 23:20 BP 154/60 H 07/12/18 23:20 Pulse Ox 96 07/12/18 23:20 - Labs Result Diagrams: 07/12/18 16:36 07/12/18 16:36 Labs: Laboratory Results - last 24 hr 07/12/18 07/12/18 07/12/18 16:36 16:36 18:22 WBC 17.2 H RBC 2.71 L Hgb 9.0 L Hct 28.5 L MCV 105.5 H D MCH 33.1 H MCHC 31.4 L RDW 22.0 H Plt Count 70 L MPV 9.7 Neut % (Auto) 54.8 Lymph % (Auto) 12.6 L [place] % (Auto) 31.6 H Eos % (Auto) 0.6 Baso % (Auto) 0.4 Neut # (Auto) 9.4 H Lymph # (Auto) 2.2 [place] # (Auto) 5.4 H Eos # (Auto) 0.1 Baso # (Auto) 0.1 Neutrophils % (Manual) 60 Lymphocytes % (Manual) 9 L Monocytes % (Manual) 30 H Eosinophils % (Manual) 1 Platelet Estimate Decreased L Hypochromasia (manual) Slight Poikilocytosis (manual Slight Anisocytosis (manual) Slight Target Cells Slight pO2 31 VBG pH 7.44 H VBG pCO2 56 VBG HCO3 33.0 VBG Total CO2 39.7 H VBG O2 Sat (Calc) 63.4 VBG Base Excess 11.6 H VBG Potassium 4.0 Glucose 123 H Lactate 1.0 Sodium 136 138.0 Potassium 3.8 Chloride 97 L 105.0 Carbon Dioxide 33 H Anion Gap 10 BUN 16 Creatinine 1.5 H Est GFR ( Amer) 40 Est GFR (Non-Af Amer) 33 POC Glucose (mg/dL) Random Glucose 150 H Calcium 8.1 L Total Bilirubin 0.8 AST 48 H D ALT < 6 L Alkaline Phosphatase 53 Total Creatine Kinase 22 L CK-MB (Mass) 0.46 Troponin I 0.0170 NT-Pro-B Natriuret Pep 63643 H Total Protein 8.3 Albumin 3.7 Globulin 4.6 H Albumin/Globulin Ratio 0.8 L Venous Blood Potassium 4.0 07/12/18 07/13/18 21:12 02:22 WBC RBC Hgb Hct MCV MCH MCHC RDW Plt Count MPV Neut % (Auto) Lymph % (Auto) [place] % (Auto) Eos % (Auto) Baso % (Auto) Neut # (Auto) Lymph # (Auto) [place] # (Auto) Eos # (Auto) Baso # (Auto) Neutrophils % (Manual) Lymphocytes % (Manual) Monocytes % (Manual) Eosinophils % (Manual) Platelet Estimate Hypochromasia (manual) Poikilocytosis (manual Anisocytosis (manual) Target Cells pO2 VBG pH VBG pCO2 VBG HCO3 VBG Total CO2 VBG O2 Sat (Calc) VBG Base Excess VBG Potassium Glucose Lactate Sodium Potassium Chloride Carbon Dioxide Anion Gap BUN Creatinine Est GFR ( Amer) Est GFR (Non-Af Amer) POC Glucose (mg/dL) 196 H Random Glucose Calcium Total Bilirubin AST ALT Alkaline Phosphatase Total Creatine Kinase < 20 L CK-MB (Mass) 0.34 Troponin I 0.0130 NT-Pro-B Natriuret Pep Total Protein Albumin Globulin Albumin/Globulin Ratio Venous Blood Potassium Assessment & Plan - Date & Time Date: 07/13/18 (I have seen and examined the patient. I agree with the findings and plan of care as documented by Dr. Al. Patient with pleural effusion. Consult to IT and pulm. History of CHF. Continue home meds. History of ESRD on HD. Consult to nephro. Continue normal dialysis schedule. Monitor for acute changes.) Time: 06:23 Attending/Attestation - Attestation I have personally seen and examined this patient.: Yes I have fully participated in the care of the patient.: Yes I have reviewed all pertinent clinical information: Yes
[2018-07-12] MEDS ORDERED: Dextrose 50% SYRINGE Inj (50 ml) IV PRN (22:23)
[2018-07-12] MEDS ORDERED: Glucagon Recombinant 1 mg Inj IM PRN (22:23)
[2018-07-13 02:52] LABS: CK-MB 0.34 ng/mL (0.0-3.38)
[2018-07-13] MEDS: Albuterol-Ipratrop 3 mg / 0.5 (3 ml) UD INH PRN (03:45)
[2018-07-13] MEDS: Levothyroxine 100 MCG TAB PO SCH (06:15)
[2018-07-13 06:25] LABS: BASO % 0.3 % (0.0-2.0); EOS # 0.2 K/uL (0.0-0.7); EOS % 0.9 % (0.0-4.0); HEMOGLOBIN 8.4 g/dL (11.0-16.0); LYMPH # 3.4 K/uL (1.0-4.3); LYMPH % 18.8 % (20.0-40.0); MEAN CORPUSCULAR HEMOGLOBIN 32.9 pg (27.0-31.0); MEAN CORPUSCULAR HGB CONC 31.3 g/dL (33.0-37.0); MEAN PLATELET VOLUME 8.7 fL (7.2-11.7); MONO # 6.3 K/uL (0.0-0.8); MONO % 35.3 % (0.0-10.0); NEUT # 8.1 K/uL (1.8-7.0); NEUT % 44.7 % (50.0-75.0); NRBC % 0.1 % (0.0-2.0); PLATELET COUNT 60 K/uL (130-400); RBC 2.54 Mil/uL (3.80-5.20); RED CELL DISTRIBUTION WIDTH 20.8 % (11.5-14.5)
[2018-07-13 06:38] LABS: ALB/GLOB RATIO 0.8 (1.0-2.1); ALBUMIN 3.3 g/dL (3.5-5.0)
--- NOTE | 2018-07-13 07:18 | CP.PCM.PN ---
<Barry Barone - Last Filed: 07/14/18 00:00> Subjective - Date & Time of Evaluation Date of Evaluation: 07/13/18 Time of Evaluation: 09:00 - Subjective Subjective: PGY-[address] Hammer service Patient is seen and examined at bedside today. Patient states feeling short of breath just as when she came to the hospital. Patient denies chest pain. states having some coughing and phlegm production. Patient's daughter at bedside were able to update on medication patient is no longer taking at home. Patient denies fever, chills, abdominal pain, nausea or vomiting, diarrhea or constipation. Patient scheduled at 2pm for thoracentesis for large left pleural effusion with IR. Objective - Vital Signs/Intake and Output Vital Signs (last 24 hours): Temp Pulse Resp BP Pulse Ox 98.2 F 84 20 154/60 H 96 07/12/18 23:20 07/13/18 04:03 07/12/18 23:20 07/12/18 23:20 07/12/18 23:20 - Medications Medications: Current Medications Albuterol/Ipratropium (Duoneb 3 Mg/0.5 Mg (3 Ml) Ud) 3 ml INH RQ4 PRN PRN Reason: Shortness of Breath Last Admin: 07/13/18 03:45 Dose: 3 ml Amlodipine Besylate (Norvasc) 10 mg PO DAILY [facility] Benzonatate (Tessalon Perles) 100 mg PO DAILY [facility] Calcium Acetate (Phoslo) 667 mg PO BIDCC [facility] Dextrose (Dextrose 50% Inj) 0 ml IV STAT PRN; Protocol PRN Reason: Hypoglycemia Protocol Dextrose (Glutose 15) 0 gm PO ONCE PRN; Protocol PRN Reason: Hypoglycemia Protocol Fenofibrate (Tricor) 48 mg PO QPM [facility] Fluticasone/Vilanterol (Breo Ellipta 100-25 Mcg Inh) 1 puff INH RQD [facility] Glucagon (Glucagen Diagnostic Kit) 0 mg IM STAT PRN; Protocol PRN Reason: Hypoglycemia Protocol Hydralazine HCl (Apresoline) 25 mg PO QID [facility] Dextrose (Dextrose 5% In Water 1000 Ml) 1,000 mls @ 0 mls/hr IV .Q0M PRN; Protocol PRN Reason: Hypoglycemia Protocol Insulin Human Regular (Novolin R) 0 unit SC ACHS [facility]; Protocol Levothyroxine Sodium (Synthroid) 100 mcg PO DAILY@0630 [facility] Last Admin: 07/13/18 06:15 Dose: 100 mcg Metoprolol Tartrate (Lopressor) 50 mg PO DAILY [facility] Rosuvastatin Calcium (Crestor) 20 mg PO HS [facility] Sitagliptin Phosphate (Januvia) 25 mg PO DAILY [facility] - Labs Labs: 07/13/18 06:13 07/13/18 06:13 - Constitutional Appears: Non-toxic, No Acute Distress - Head Exam Head Exam: ATRAUMATIC, NORMAL INSPECTION, NORMOCEPHALIC - Eye Exam Eye Exam: Normal appearance - ENT Exam ENT Exam: Mucous Membranes Moist, Normal Exam - Neck Exam Neck Exam: Normal Inspection - Respiratory Exam Respiratory Exam: Decreased Breath Sounds (left upper and lower lobes ). absent: Rales, Rhonchi, Wheezes - Cardiovascular Exam Cardiovascular Exam: REGULAR RHYTHM, +S1, +S2 - GI/Abdominal Exam GI & Abdominal Exam: Soft, Normal Bowel Sounds - Extremities Exam Extremities Exam: Full ROM, Pedal Edema - Neurological Exam Neurological Exam: Alert, Awake, Normal Gait, Oriented x3 - Psychiatric Exam Psychiatric exam: Normal Affect, Normal Mood - Skin Skin Exam: Dry, Intact, Normal Color, Warm Assessment and Plan - Assessment and Plan (Free Text) Assessment: 83 year old female with CHF, COPD, ESRD on HD, and multiple additional medical conditions/comorbidities presents with acutely worsening shortness of breath, found to lave large left-sided pleural effusion on chest XR, scheduled for thoracentesis with IR this afternoon. Plan: Large L Pleural Effusion -IR Thoracentesis this pm - Dr Garrett - will follow up HF with preserved [place] [address] (compared to 06/23/2018 @ [id number] ) Echo 03/04- EF 60-65% -HD TTS -will get HD tomorrow am - Dr Langston - Nephro consult - follow up recs -Metoprolol 50 mg daily ESRD on HD T-- -via R permacath -Dialysis earlier today ([facility]) -Dr. Langston consulted, help appreciated -Phoslo 667mg po TIDCC Chest Tightness -Likely 2/2 shortness of breath/pleural effusion -JAIME x 3 negative - EKGs x 3 unremarkable Hx Thrombocytopenia/ Hx Myelodysplastic Syndrome -platelets 70. MR 97 on d/c 06/23/18 - continue to monitor COPD -Tessalon Perles 100mg po daily -Breo Ellipta 100/25mg po inh daily -Duonebs q6h PRN Hx PVD with b/l Leg Stents -Tricor 48mg po daily -Crestor 20mg po HS DMII -Januvia 25mg po daily discontinued as patient not longer taking -RISS- low dose achs -hypoglycemia protocol -HgA1C 6.4 on 06/23 HTN -Norvasc 10mg po daily -Metoprolol 50 mg daily HLD -Tricor 48mg po daily - d/c as patient no longer taking this medication at home -Crestor 20mg po HS Hx Anemia of Chronic Disease (06/16 ESRD) -continue to monitor Hypothyroidism -Synthroid 100mcg po daily Prophylaxis -SCDs -Contraindication to VTE - thrombocytopenia Plan discussed with Barry Schulte PGY-1 <Liz Hammer - Last Filed: 07/17/18 14:24> Objective - Vital Signs/Intake and Output Vital Signs (last 24 hours): Temp Pulse Resp BP Pulse Ox 98.3 F 88 20 150/56 L 98 07/17/18 07:00 07/17/18 09:40 07/17/18 09:40 07/17/18 09:40 07/17/18 09:40 Intake and Output: 07/17/18 07/17/18 06:59 18:59 Intake Total 251 Balance 251 - Medications Medications: Current Medications Acetaminophen (Tylenol 325mg Tab) 650 mg PO Q6 PRN PRN Reason: Pain, moderate (4-7) Albuterol/Ipratropium (Duoneb 3 Mg/0.5 Mg (3 Ml) Ud) 3 ml INH RQ4 PRN PRN Reason: Shortness of Breath Last Admin: 07/13/18 03:45 Dose: 3 ml Amlodipine Besylate (Norvasc) 10 mg PO DAILY [facility] Last Admin: 07/17/18 09:39 Dose: 10 mg Calcium Carbonate (Tums) 500 mg PO TID [facility] Last Admin: 07/17/18 14:19 Dose: Not Given Dextrose (Dextrose 50% Inj) 0 ml IV STAT PRN; Protocol PRN Reason: Hypoglycemia Protocol Dextrose (Glutose 15) 0 gm PO ONCE PRN; Protocol PRN Reason: Hypoglycemia Protocol Epoetin Brandon (Procrit) 10,000 unit IV TTS [facility] Last Admin: 07/14/18 13:37 Dose: 10,000 unit Fluticasone/Vilanterol (Breo Ellipta 100-25 Mcg Inh) 1 puff INH RQD [facility] Last Admin: 07/17/18 08:08 Dose: 1 puff Glucagon (Glucagen Diagnostic Kit) 0 mg IM STAT PRN; Protocol PRN Reason: Hypoglycemia Protocol Dextrose (Dextrose 5% In Water 1000 Ml) 1,000 mls @ 0 mls/hr IV .Q0M PRN; Protocol PRN Reason: Hypoglycemia Protocol Insulin Human Regular (Novolin R) 0 unit SC ACHS [facility]; Protocol Last Admin: 07/17/18 12:25 Dose: 2 unit Levothyroxine Sodium (Synthroid) 100 mcg PO DAILY@0630 [facility] Last Admin: 07/17/18 05:51 Dose: 100 mcg Metoprolol Tartrate (Lopressor) 50 mg PO BID [facility] Last Admin: 07/17/18 09:39 Dose: 50 mg Rosuvastatin Calcium (Crestor) 20 mg PO HS [facility] Last Admin: 07/16/18 21:22 Dose: 20 mg - Labs Labs: 07/17/18 07:04 07/17/18 07:04 Attending/Attestation - Attestation I have personally seen and examined this patient.: Yes I have fully participated in the care of the patient.: Yes I have reviewed all pertinent clinical information, including history, physical exam and plan: Yes Notes (Text): seen and examined by me. Assessment and the plan discussed.I agree with the documentation
[2018-07-13] MEDS: (Novolin R) Insulin Human Regular 100 units/ml vial SC SCH ×4 (07:34→21:16)
--- NOTE | 2018-07-13 08:16 | RAD ---
Date of service: 07/12/2018 PROCEDURE: CHEST RADIOGRAPH, 1 VIEW HISTORY: SOB COMPARISON: CT chest without contrast from 06/26/2018 FINDINGS: Right-sided dialysis catheter terminates in the right atrium. LUNGS: There is interval near complete opacification of the left hemithorax. The right lung is well inflated. There is mild right pulmonary venous congestion. PLEURA: No pneumothorax or pleural effusion. CARDIOVASCULAR: The heart is normal in size. There are aortic atherosclerotic calcifications present. OSSEOUS STRUCTURES: Within normal limits for the patient's age. VISUALIZED UPPER ABDOMEN: Normal. OTHER FINDINGS: None. IMPRESSION: Interval near complete opacification of the left hemithorax which is likely related to worsening pleural effusion.
[2018-07-13 08:29] LABS: BANDS 4 % (0-2); EOSINOPHIL 2 % (0-4); LYMPHOCYTE 12 % (20-40); MONOCYTE 38 % (0-10); MYELOCYTE 1 % (0-0); NEUTROPHIL 43 % (50-75); TOTAL CELLS COUNTED 100
[2018-07-13 08:30] LABS: ANISOCYTOSIS SLIGHT; PLATELET ESTIMATE DECREASED (NORMAL)
[2018-07-13 08:32] LABS: HYPOCHROMIC SLIGHT; POLYCHROMIC SLIGHT
[2018-07-13] MEDS ORDERED: Enoxaparin 40 mg Syringe SC SCH (10:00)
[2018-07-13] MEDS: Fluticasone-Vilanterol 100/25mcg Diskus INH SCH (11:27)
[2018-07-13 12:10] LABS: CK-MB 0.29 ng/mL (0.0-3.38)
--- NOTE | 2018-07-13 13:55 | CP.PCM.CON ---
History of Present Illness - History of Present Illness History of Present Illness: Patient is an 83 year old female with PMhx DM, HTN, HLD, PVD, ESRD on HD TTS, COPD, pulmonary fibrosis, hypothyroidism, CHF with preserved EF, anemia, pneumonia, and myelodysplastic syndrome who is well known to our service. She presents this evening with chronic but acutely worsening shortness of breath. Patient states having shortness of breath for the past two months. Over the past couple of days her breathing has been getting worse. She went for dialysis this morning, and following dialysis she continued to be very short of breath. She went to see her certified alcohol and drug counselor, Dr. Sisi Day and was noted to be satting at 70% on IL and was subsequently sent to [facility]. Patient has had multiple hospitalizations for similar symptoms, most recently discharged from [facility] for shortness of breath on 06/26. 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 Review of Systems - Constitutional Constitutional: Fatigue, Weakness - EENT Eyes: absent: As Per HPI, Blind Spots, Blurred Vision, Change in Vision, Decreased Night Vision, Diplopia, Discharge, Dry Eye, Exophthalmos, Floaters, Irritation, Itchy Eyes, Loss of Peripheral Vision, Pain, Photophobia, Requires Corrective Lenses, Sees Flashes, Spots in Vision, Tunnel Vision, Other Visual Disturbances, Loss of Vision, Other Ears: absent: As Per HPI, Decreased Hearing, Ear Discharge, Ear Pain, Tinnitus, Abnormal Hearing, Disequilibrium, Dizziness, Other - Cardiovascular Cardiovascular: Dyspnea on Exertion, Orthopnea - Respiratory Respiratory: Cough, Dyspnea - Gastrointestinal Gastrointestinal: Constipation - Genitourinary Genitourinary: As Per HPI - Musculoskeletal Musculoskeletal: Muscle Cramps, Muscle Weakness, Myalgias Past Patient History - Infectious Disease Hx of Infectious Diseases: None - Tetanus Immunizations Tetanus Immunization: Unknown - Past Medical History & Family History Past Medical History?: Yes Past Family History: Reviewed and not pertinent - Past Social History Smoking Status: Never Smoked Chewing Tobacco Use: No Cigar Use: No Alcohol: None Drugs: Denies Home Situation {Lives}: With Family - CARDIAC Hx Congestive Heart Failure: Yes - PULMONARY Hx Asthma: Yes Hx Chronic Obstructive Pulmonary Disease (COPD): Yes Hx Pneumonia: Yes - NEUROLOGICAL Hx Neurological Disorder: No - HEENT Hx HEENT Problems: Yes Hx Cataracts: Yes Other/Comment: Corneal replacement both eyes - RENAL Hx Chronic Kidney Disease: Yes Hx Kidney Stones: Yes - ENDOCRINE/METABOLIC Hx Hypothyroidism: Yes - HEMATOLOGICAL/ONCOLOGICAL Hx Anemia: Yes - INTEGUMENTARY Hx Dermatological Problems: No - MUSCULOSKELETAL/RHEUMATOLOGICAL Hx Arthritis: Yes Hx Osteoporosis: Yes - GASTROINTESTINAL Hx Gastritis: Yes - GENITOURINARY/GYNECOLOGICAL Hx Genitourinary Disorders: No - PSYCHIATRIC Hx Substance Use: No - SURGICAL HISTORY Hx Surgeries: Yes Hx Cataract Extraction: Yes Other/Comment: Vascular stents. Bone marrow aspiration. Corneal transplant. Permacath Insertion - ANESTHESIA Hx Anesthesia: Yes Hx Anesthesia Reactions: No Hx Malignant Hyperthermia: No Meds Allergies/Adverse Reactions: Allergies Allergy/AdvReac Type Severity Reaction Status Date / Time No Known Allergies Allergy Verified 07/12/18 15:59 - Medications Medications: Current Medications Albuterol/Ipratropium (Duoneb 3 Mg/0.5 Mg (3 Ml) Ud) 3 ml INH RQ4 PRN PRN Reason: Shortness of Breath Last Admin: 07/13/18 03:45 Dose: 3 ml Amlodipine Besylate (Norvasc) 10 mg PO DAILY [facility] Last Admin: 07/13/18 10:59 Dose: 10 mg Benzonatate (Tessalon Perles) 100 mg PO DAILY [facility] Last Admin: 07/13/18 11:00 Dose: 100 mg Calcium Acetate (Phoslo) 667 mg PO BIDCC [facility] Last Admin: 07/13/18 08:06 Dose: Not Given Dextrose (Dextrose 50% Inj) 0 ml IV STAT PRN; Protocol PRN Reason: Hypoglycemia Protocol Dextrose (Glutose 15) 0 gm PO ONCE PRN; Protocol PRN Reason: Hypoglycemia Protocol Fenofibrate (Tricor) 48 mg PO QPM [facility] Fluticasone/Vilanterol (Breo Ellipta 100-25 Mcg Inh) 1 puff INH RQD [facility] Last Admin: 07/13/18 11:27 Dose: 1 puff Glucagon (Glucagen Diagnostic Kit) 0 mg IM STAT PRN; Protocol PRN Reason: Hypoglycemia Protocol Hydralazine HCl (Apresoline) 25 mg PO QID [facility] Last Admin: 07/13/18 13:18 Dose: Not Given Dextrose (Dextrose 5% In Water 1000 Ml) 1,000 mls @ 0 mls/hr IV .Q0M PRN; Protocol PRN Reason: Hypoglycemia Protocol Insulin Human Regular (Novolin R) 0 unit SC ACHS [facility]; Protocol Last Admin: 07/13/18 11:27 Dose: Not Given Levothyroxine Sodium (Synthroid) 100 mcg PO DAILY@0630 [facility] Last Admin: 07/13/18 06:15 Dose: 100 mcg Metoprolol Tartrate (Lopressor) 50 mg PO DAILY [facility] Last Admin: 07/13/18 11:00 Dose: 50 mg Rosuvastatin Calcium (Crestor) 20 mg PO [facility] Sitagliptin Phosphate (Januvia) 25 mg PO DAILY [facility] Last Admin: 07/13/18 11:01 Dose: Not Given Physical Exam - Constitutional Appears: Chronically Ill - Head Exam Head Exam: ATRAUMATIC, NORMAL INSPECTION - Eye Exam Eye Exam: EOMI, Normal appearance - Neck Exam Neck exam: Positive for: Normal Inspection. Negative for: Tenderness - Respiratory Exam Respiratory Exam: Decreased Breath Sounds, Clear to Auscultation Bilateral, NORMAL BREATHING PATTERN - Cardiovascular Exam Cardiovascular Exam: REGULAR RHYTHM, +S1 - GI/Abdominal Exam GI & Abdominal Exam: Soft. absent: Tenderness - Extremities Exam Extremities exam: Positive for: normal inspection. Negative for: tenderness - Neurological Exam Neurological exam: Alert, CN II-XII Intact - Skin Skin Exam: Dry, Warm Results - Vital Signs Recent Vital Signs: Last Vital Signs Temp 98.3 F 07/13/18 07:00 Pulse 89 07/13/18 07:00 Resp 20 07/13/18 07:00 BP 154/62 H 07/13/18 07:00 Pulse Ox 98 07/13/18 07:00 - Labs Result Diagrams: 07/13/18 06:13 07/13/18 06:13 Labs: Laboratory Results - last 24 hr 07/12/18 07/12/18 07/12/18 16:36 16:36 18:22 WBC 17.2 H RBC 2.71 L Hgb 9.0 L Hct 28.5 L MCV 105.5 H D MCH 33.1 H MCHC 31.4 L RDW 22.0 H Plt Count 70 L MPV 9.7 Neut % (Auto) 54.8 Lymph % (Auto) 12.6 L Gove % (Auto) 31.6 H Eos % (Auto) 0.6 Baso % (Auto) 0.4 Neut # (Auto) 9.4 H Lymph # (Auto) 2.2 Gove # (Auto) 5.4 H Eos # (Auto) 0.1 Baso # (Auto) 0.1 Neutrophils % (Manual) 60 Band Neutrophils % Lymphocytes % (Manual) 9 L Monocytes % (Manual) 30 H Eosinophils % (Manual) 1 Myelocytes % Platelet Estimate Decreased L Polychromasia Hypochromasia (manual) Slight Poikilocytosis (manual Slight Anisocytosis (manual) Slight Macrocytosis (manual) Target Cells Slight pO2 31 VBG pH 7.44 H VBG pCO2 56 VBG HCO3 33.0 VBG Total CO2 39.7 H VBG O2 Sat (Calc) 63.4 VBG Base Excess 11.6 H VBG Potassium 4.0 Glucose 123 H Lactate 1.0 Sodium 136 138.0 Potassium 3.8 Chloride 97 L 105.0 Carbon Dioxide 33 H Anion Gap 10 BUN 16 Creatinine 1.5 H Est GFR ( Amer) 40 Est GFR (Non-Af Amer) 33 POC Glucose (mg/dL) Random Glucose 150 H Calcium 8.1 L Total Bilirubin 0.8 AST 48 H D ALT < 6 L Alkaline Phosphatase 53 Total Creatine Kinase 22 L CK-MB (Mass) 0.46 Troponin I 0.0170 NT-Pro-B Natriuret Pep 76481 H Total Protein 8.3 Albumin 3.7 Globulin 4.6 H Albumin/Globulin Ratio 0.8 L Venous Blood Potassium 4.0 07/12/18 07/13/18 07/13/18 21:12 02:22 06:13 WBC 18.0 H RBC 2.54 L Hgb 8.4 L Hct 26.7 L MCV 105.0 H MCH 32.9 H MCHC 31.3 L RDW 20.8 H Plt Count 60 L MPV 8.7 Neut % (Auto) 44.7 L Lymph % (Auto) 18.8 L Gove % (Auto) 35.3 H Eos % (Auto) 0.9 Baso % (Auto) 0.3 Neut # (Auto) 8.1 H Lymph # (Auto) 3.4 Gove # (Auto) 6.3 H Eos # (Auto) 0.2 Baso # (Auto) 0.0 Neutrophils % (Manual) 43 L Band Neutrophils % 4 H Lymphocytes % (Manual) 12 L Monocytes % (Manual) 38 H Eosinophils % (Manual) 2 Myelocytes % 1 H Platelet Estimate Decreased L Polychromasia Slight Hypochromasia (manual) Slight Poikilocytosis (manual Anisocytosis (manual) Slight Macrocytosis (manual) Slight Target Cells pO2 VBG pH VBG pCO2 VBG HCO3 VBG Total CO2 VBG O2 Sat (Calc) VBG Base Excess VBG Potassium Glucose Lactate Sodium Potassium Chloride Carbon Dioxide Anion Gap BUN Creatinine Est GFR ( Amer) Est GFR (Non-Af Amer) POC Glucose (mg/dL) 196 H Random Glucose Calcium Total Bilirubin AST ALT Alkaline Phosphatase Total Creatine Kinase < 20 L CK-MB (Mass) 0.34 Troponin I 0.0130 NT-Pro-B Natriuret Pep Total Protein Albumin Globulin Albumin/Globulin Ratio Venous Blood Potassium 07/13/18 07/13/18 07/13/18 06:13 11:16 11:31 WBC RBC Hgb Hct MCV MCH MCHC RDW Plt Count MPV Neut % (Auto) Lymph % (Auto) Gove % (Auto) Eos % (Auto) Baso % (Auto) Neut # (Auto) Lymph # (Auto) Gove # (Auto) Eos # (Auto) Baso # (Auto) Neutrophils % (Manual) Band Neutrophils % Lymphocytes % (Manual) Monocytes % (Manual) Eosinophils % (Manual) Myelocytes % Platelet Estimate Polychromasia Hypochromasia (manual) Poikilocytosis (manual Anisocytosis (manual) Macrocytosis (manual) Target Cells pO2 VBG pH VBG pCO2 VBG HCO3 VBG Total CO2 VBG O2 Sat (Calc) VBG Base Excess VBG Potassium Glucose Lactate Sodium 138 Potassium 3.9 Chloride 98 Carbon Dioxide 34 H Anion Gap 10 BUN 20 H Creatinine 2.6 H Est GFR ( Amer) 21 Est GFR (Non-Af Amer) 18 POC Glucose (mg/dL) 158 H Random Glucose 129 H Calcium 8.0 L Total Bilirubin 0.4 AST 20 ALT 11 Alkaline Phosphatase 51 Total Creatine Kinase < 20 L CK-MB (Mass) 0.29 Troponin I 0.0160 NT-Pro-B Natriuret Pep Total Protein 7.5 Albumin 3.3 L Globulin 4.3 H Albumin/Globulin Ratio 0.8 L Venous Blood Potassium Assessment & Plan (1) Pulmonary fibrosis Status: Acute (2) Pleural effusion Status: Acute (3) CHF (congestive heart failure) Status: Acute (4) CMML (chronic myelomonocytic leukemia) Status: Acute (5) Pleural effusion Status: Acute (6) COPD (chronic obstructive pulmonary disease) Status: Chronic - Assessment and Plan (Free Text) Plan: thoracentesis as per medicine dialysis with adequate UF in AM Add ESAs
--- NOTE | 2018-07-13 15:26 | PCM.SURG1 ---
Surgeon's Initial Post Op Note - Surgeon's Notes Surgeon: [email or web address] Videotape Operator: None Type of Anesthesia: Local Pre-Operative Diagnosis: left pleural aeffusion Operative Findings: same Post-Operative Diagnosis: same Operation Performed: left thoracentesis Specimen/Specimens Removed: approx 1000cc of bloody fluid aspirated Estimated Blood Loss: EBL {In ML}: 1 Date of Surgery/Procedure: 07/13/18 Time of Surgery/Procedure: 15:15
--- NOTE | 2018-07-13 15:59 | RAD ---
Date of service: 07/13/2018 HISTORY: post thoracentesis COMPARISON: Chest x-ray 07/12/2018 TECHNIQUE: Chest one view . FINDINGS: LUNGS: Large left pleural effusion appears mildly decreased compared to prior exam. Small amount of aerated left upper lobe now visible. There is moderate pulmonary vascular congestion. PLEURA: See above CARDIOVASCULAR: Heart size is secured by left lung opacity. Atherosclerotic calcifications noted of the aorta. Stable right-sided dialysis catheter with distal tips overlying the region of the right atrium. OSSEOUS STRUCTURES: Punctate calcification noted in the region right rotator cuff insertion, likely calcific tendinopathy. VISUALIZED UPPER ABDOMEN: Unremarkable. OTHER FINDINGS: None. IMPRESSION: Mild decrease in large left pleural effusion. Additional findings as above.
[2018-07-13] MEDS: Calcium Carbonate 500 mg Chewable Antacid Tab PO SCH (17:29)
--- NOTE | 2018-07-13 17:53 | CP.PCM.CON ---
History of Present Illness - History of Present Illness History of Present Illness: 83 year old female with PMhx DM, HTN, HLD, PVD, ESRD on HD TTS, COPD, pulmonary fibrosis, hypothyroidism, CHF with preserved EF, anemia, pneumonia, and myelodysplastic syndrome presents with worsening shortness of breath. Pt was seen in my office 1 week ago on home O2 with RA SaO2 78%. Pt denies fever, chills, phlegm and wheezing. Over the past couple of days her breathing has been getting worse. Patient has had multiple hospitalizations for similar symptoms, most recently discharged from [facility] for shortness of breath on 06/26. She has had recurrent admissions for dyspnea. CXR shows left sided opacification Review of Systems - Review of Systems All systems: reviewed and no additional remarkable complaints except (as per HPI) Past Patient History - Infectious Disease Hx of Infectious Diseases: None - Tetanus Immunizations Tetanus Immunization: Unknown - Past Medical History & Family History Past Medical History?: Yes Past Family History: Reviewed and not pertinent - Past Social History Smoking Status: Never Smoked Chewing Tobacco Use: No Cigar Use: No Alcohol: None Drugs: Denies Home Situation {Lives}: With Family - CARDIAC Hx Congestive Heart Failure: Yes - PULMONARY Hx Asthma: Yes Hx Chronic Obstructive Pulmonary Disease (COPD): Yes Hx Pneumonia: Yes - NEUROLOGICAL Hx Neurological Disorder: No - HEENT Hx HEENT Problems: Yes Hx Cataracts: Yes Other/Comment: Corneal replacement both eyes - RENAL Hx Chronic Kidney Disease: Yes Hx Kidney Stones: Yes - ENDOCRINE/METABOLIC Hx Hypothyroidism: Yes - HEMATOLOGICAL/ONCOLOGICAL Hx Anemia: Yes - INTEGUMENTARY Hx Dermatological Problems: No - MUSCULOSKELETAL/RHEUMATOLOGICAL Hx Arthritis: Yes Hx Osteoporosis: Yes - GASTROINTESTINAL Hx Gastritis: Yes - GENITOURINARY/GYNECOLOGICAL Hx Genitourinary Disorders: No - PSYCHIATRIC Hx Substance Use: No - SURGICAL HISTORY Hx Surgeries: Yes Hx Cataract Extraction: Yes Other/Comment: Vascular stents. Bone marrow aspiration. Corneal transplant. Permacath Insertion - ANESTHESIA Hx Anesthesia: Yes Hx Anesthesia Reactions: No Hx Malignant Hyperthermia: No Meds Allergies/Adverse Reactions: Allergies Allergy/AdvReac Type Severity Reaction Status Date / Time No Known Allergies Allergy Verified 07/12/18 15:59 - Medications Medications: Current Medications Albuterol/Ipratropium (Duoneb 3 Mg/0.5 Mg (3 Ml) Ud) 3 ml INH RQ4 PRN PRN Reason: Shortness of Breath Last Admin: 07/13/18 03:45 Dose: 3 ml Amlodipine Besylate (Norvasc) 10 mg PO DAILY [facility] Last Admin: 07/13/18 10:59 Dose: 10 mg Benzonatate (Tessalon Perles) 100 mg PO DAILY [facility] Last Admin: 07/13/18 11:00 Dose: 100 mg Calcium Carbonate (Tums) 500 mg PO TID [facility] Last Admin: 07/13/18 17:29 Dose: 500 mg Dextrose (Dextrose 50% Inj) 0 ml IV STAT PRN; Protocol PRN Reason: Hypoglycemia Protocol Dextrose (Glutose 15) 0 gm PO ONCE PRN; Protocol PRN Reason: Hypoglycemia Protocol Epoetin Brandon (Procrit) 10,000 unit IV TTS [facility] Fluticasone/Vilanterol (Breo Ellipta 100-25 Mcg Inh) 1 puff INH RQD [facility] Last Admin: 07/13/18 11:27 Dose: 1 puff Glucagon (Glucagen Diagnostic Kit) 0 mg IM STAT PRN; Protocol PRN Reason: Hypoglycemia Protocol Dextrose (Dextrose 5% In Water 1000 Ml) 1,000 mls @ 0 mls/hr IV .Q0M PRN; Protocol PRN Reason: Hypoglycemia Protocol Insulin Human Regular (Novolin R) 0 unit SC ACHS [facility]; Protocol Last Admin: 07/13/18 17:30 Dose: Not Given Levothyroxine Sodium (Synthroid) 100 mcg PO DAILY@0630 [facility] Last Admin: 07/13/18 06:15 Dose: 100 mcg Metoprolol Tartrate (Lopressor) 50 mg PO DAILY [facility] Last Admin: 07/13/18 11:00 Dose: 50 mg Rosuvastatin Calcium (Crestor) 20 mg PO [facility] Physical Exam - Head Exam Head Exam: NORMAL INSPECTION - Eye Exam Eye Exam: Normal appearance - ENT Exam ENT Exam: Mucous Membranes Moist - Respiratory Exam Respiratory Exam: Decreased Breath Sounds - Cardiovascular Exam Cardiovascular Exam: REGULAR RHYTHM, +S1, +S2 - GI/Abdominal Exam GI & Abdominal Exam: Normal Bowel Sounds, Soft - Extremities Exam Extremities exam: Positive for: pedal edema Results - Vital Signs Recent Vital Signs: Last Vital Signs Temp 98.3 F 07/13/18 07:00 Pulse 77 07/13/18 16:00 Resp 20 07/13/18 07:00 BP 154/62 H 07/13/18 07:00 Pulse Ox 98 07/13/18 07:00 - Labs Result Diagrams: 07/13/18 06:13 07/13/18 06:13 Labs: Laboratory Results - last 24 hr 07/12/18 07/12/18 07/13/18 18:22 21:12 02:22 WBC RBC Hgb Hct MCV MCH MCHC RDW Plt Count MPV Neut % (Auto) Lymph % (Auto) Stevens % (Auto) Eos % (Auto) Baso % (Auto) Neut # (Auto) Lymph # (Auto) Stevens # (Auto) Eos # (Auto) Baso # (Auto) Neutrophils % (Manual) Band Neutrophils % Lymphocytes % (Manual) Monocytes % (Manual) Eosinophils % (Manual) Myelocytes % Platelet Estimate Polychromasia Hypochromasia (manual) Anisocytosis (manual) Macrocytosis (manual) pO2 31 VBG pH 7.44 H VBG pCO2 56 VBG HCO3 33.0 VBG Total CO2 39.7 H VBG O2 Sat (Calc) 63.4 VBG Base Excess 11.6 H VBG Potassium 4.0 Sodium 138.0 Chloride 105.0 Glucose 123 H Lactate 1.0 Potassium Carbon Dioxide Anion Gap BUN Creatinine Est GFR ( Amer) Est GFR (Non-Af Amer) POC Glucose (mg/dL) 196 H Random Glucose Calcium Total Bilirubin AST ALT Alkaline Phosphatase Total Creatine Kinase < 20 L CK-MB (Mass) 0.34 Troponin I 0.0130 Total Protein Albumin Globulin Albumin/Globulin Ratio Venous Blood Potassium 4.0 07/13/18 07/13/18 07/13/18 06:13 06:13 11:16 WBC 18.0 H RBC 2.54 L Hgb 8.4 L Hct 26.7 L MCV 105.0 H MCH 32.9 H MCHC 31.3 L RDW 20.8 H Plt Count 60 L MPV 8.7 Neut % (Auto) 44.7 L Lymph % (Auto) 18.8 L Stevens % (Auto) 35.3 H Eos % (Auto) 0.9 Baso % (Auto) 0.3 Neut # (Auto) 8.1 H Lymph # (Auto) 3.4 Stevens # (Auto) 6.3 H Eos # (Auto) 0.2 Baso # (Auto) 0.0 Neutrophils % (Manual) 43 L Band Neutrophils % 4 H Lymphocytes % (Manual) 12 L Monocytes % (Manual) 38 H Eosinophils % (Manual) 2 Myelocytes % 1 H Platelet Estimate Decreased L Polychromasia Slight Hypochromasia (manual) Slight Anisocytosis (manual) Slight Macrocytosis (manual) Slight pO2 VBG pH VBG pCO2 VBG HCO3 VBG Total CO2 VBG O2 Sat (Calc) VBG Base Excess VBG Potassium Sodium 138 Chloride 98 Glucose Lactate Potassium 3.9 Carbon Dioxide 34 H Anion Gap 10 BUN 20 H Creatinine 2.6 H Est GFR ( Amer) 21 Est GFR (Non-Af Amer) 18 POC Glucose (mg/dL) 158 H Random Glucose 129 H Calcium 8.0 L Total Bilirubin 0.4 AST 20 ALT 11 Alkaline Phosphatase 51 Total Creatine Kinase CK-MB (Mass) Troponin I Total Protein 7.5 Albumin 3.3 L Globulin 4.3 H Albumin/Globulin Ratio 0.8 L Venous Blood Potassium 07/13/18 07/13/18 11:31 17:19 WBC RBC Hgb Hct MCV MCH MCHC RDW Plt Count MPV Neut % (Auto) Lymph % (Auto) Stevens % (Auto) Eos % (Auto) Baso % (Auto) Neut # (Auto) Lymph # (Auto) Stevens # (Auto) Eos # (Auto) Baso # (Auto) Neutrophils % (Manual) Band Neutrophils % Lymphocytes % (Manual) Monocytes % (Manual) Eosinophils % (Manual) Myelocytes % Platelet Estimate Polychromasia Hypochromasia (manual) Anisocytosis (manual) Macrocytosis (manual) pO2 VBG pH VBG pCO2 VBG HCO3 VBG Total CO2 VBG O2 Sat (Calc) VBG Base Excess VBG Potassium Sodium Chloride Glucose Lactate Potassium Carbon Dioxide Anion Gap BUN Creatinine Est GFR ( Amer) Est GFR (Non-Af Amer) POC Glucose (mg/dL) 110 Random Glucose Calcium Total Bilirubin AST ALT Alkaline Phosphatase Total Creatine Kinase < 20 L CK-MB (Mass) 0.29 Troponin I 0.0160 Total Protein Albumin Globulin Albumin/Globulin Ratio Venous Blood Potassium Assessment & Plan (1) Pleural effusion Status: Acute (2) CHF (congestive heart failure) Status: Acute (3) Dyspnea Status: Acute (4) ESRD (end stage renal disease) Status: Acute (5) COPD (chronic obstructive pulmonary disease) Status: Chronic - Assessment and Plan (Free Text) Plan: Bronchodilators Breo Ellipta CXR reviewed Pt is S/P Thoracentesis HD as per renal Elevated WBC with no left shift. CXR shows pulmonary congestion with no infiltrates No clinical or radiographic evidence of pneumonia Recommend observing off Abx DVT/GI prophalaxis
--- NOTE | 2018-07-13 18:33 | US ---
Procedure: Ultrasound guided thoracentesis. Clinical History: Left -sided pleural effusion. Technique: The relative risks and indications for the procedure were explained to the patient and informed written consent obtained. Sonography of the left chest was performed in a an upright position. This revealed a large amount of pleural fluid. A puncture site was selected in the posterior aspect of the left chest and the area was prepped and draped in the usual sterile fashion. 1% lidocaine was used to anesthetize the skin and soft tissues. A 5 Portuguese centesis catheter was trochared into the left pleural cavity approximately 1000 cc of dark bloody fluid aspirated. The patient tolerated the procedure well. Postprocedure radiograph was obtained. Impression: Ultrasound-guided thoracentesis of the left pleural cavity.
[2018-07-14] MEDS: Levothyroxine 100 MCG TAB PO SCH (05:40)
[2018-07-14 07:43] LABS: BASO % 0.2 % (0.0-2.0); EOS # 0.1 K/uL (0.0-0.7); EOS % 0.5 % (0.0-4.0); HEMOGLOBIN 9.1 g/dL (11.0-16.0); LYMPH # 3.2 K/uL (1.0-4.3); LYMPH % 16.9 % (20.0-40.0); MEAN CELL VOLUME 105.4 fL (81.0-99.0); MEAN CORPUSCULAR HEMOGLOBIN 33.6 pg (27.0-31.0); MEAN CORPUSCULAR HGB CONC 31.9 g/dL (33.0-37.0); MEAN PLATELET VOLUME 9.8 fL (7.2-11.7); MONO # 5.7 K/uL (0.0-0.8); MONO % 30.4 % (0.0-10.0); NEUT # 9.7 K/uL (1.8-7.0); RED CELL DISTRIBUTION WIDTH 20.5 % (11.5-14.5); WHITE BLOOD COUNT 18.8 K/uL (4.8-10.8)
[2018-07-14 07:49] LABS: PLATELET COUNT 80 K/uL (130-400)
[2018-07-14 08:12] LABS: ALB/GLOB RATIO 0.8 (1.0-2.1); ALBUMIN 3.5 g/dL (3.5-5.0); CALCIUM 8.4 mg/dl (8.6-10.4)
--- NOTE | 2018-07-14 08:17 | CP.PCM.PN ---
<Cherrie Carrasco - Last Filed: 07/14/18 12:31> Subjective - Date & Time of Evaluation Date of Evaluation: 07/14/18 Time of Evaluation: 08:16 - Subjective Subjective: Cherrie Carrasco PGY1 Progress Note for Dr. Hammer Pt was examined at bedside this morning. She complains of agitation in her chest. She reports improved breathing since yesterday. She denies chest pain, diaphoresis, dizziness, nausea, vomiting. Objective - Vital Signs/Intake and Output Vital Signs (last 24 hours): Temp Pulse Resp BP Pulse Ox 98.3 F 89 20 188/67 H 96 07/14/18 07:00 07/14/18 07:00 07/14/18 07:00 07/14/18 07:00 07/14/18 07:00 Intake and Output: 07/14/18 07/14/18 06:59 18:59 Intake Total 150 Balance 150 - Medications Medications: Current Medications Albuterol/Ipratropium (Duoneb 3 Mg/0.5 Mg (3 Ml) Ud) 3 ml INH RQ4 PRN PRN Reason: Shortness of Breath Last Admin: 07/13/18 03:45 Dose: 3 ml Amlodipine Besylate (Norvasc) 10 mg PO DAILY [facility] Last Admin: 07/13/18 10:59 Dose: 10 mg Benzonatate (Tessalon Perles) 100 mg PO DAILY [facility] Last Admin: 07/13/18 11:00 Dose: 100 mg Calcium Carbonate (Tums) 500 mg PO TID [facility] Last Admin: 07/13/18 17:29 Dose: 500 mg Dextrose (Dextrose 50% Inj) 0 ml IV STAT PRN; Protocol PRN Reason: Hypoglycemia Protocol Dextrose (Glutose 15) 0 gm PO ONCE PRN; Protocol PRN Reason: Hypoglycemia Protocol Epoetin Brandon (Procrit) 10,000 unit IV TTS [facility] Fluticasone/Vilanterol (Breo Ellipta 100-25 Mcg Inh) 1 puff INH RQD [facility] Last Admin: 07/13/18 11:27 Dose: 1 puff Glucagon (Glucagen Diagnostic Kit) 0 mg IM STAT PRN; Protocol PRN Reason: Hypoglycemia Protocol Dextrose (Dextrose 5% In Water 1000 Ml) 1,000 mls @ 0 mls/hr IV .Q0M PRN; Protocol PRN Reason: Hypoglycemia Protocol Insulin Human Regular (Novolin R) 0 unit SC ACHS [facility]; Protocol Last Admin: 07/13/18 21:16 Dose: Not Given Levothyroxine Sodium (Synthroid) 100 mcg PO DAILY@0630 [facility] Last Admin: 07/14/18 05:40 Dose: 100 mcg Metoprolol Tartrate (Lopressor) 50 mg PO DAILY [facility] Last Admin: 07/13/18 11:00 Dose: 50 mg Rosuvastatin Calcium (Crestor) 20 mg PO HS [facility] Last Admin: 07/13/18 21:24 Dose: 20 mg - Labs Labs: 07/14/18 07:27 07/14/18 07:27 - Additional Findings Additional findings: - Constitutional Appears: Non-toxic, No Acute Distress - Head Exam Head Exam: ATRAUMATIC, NORMAL INSPECTION, NORMOCEPHALIC - Eye Exam Eye Exam: Normal appearance - ENT Exam ENT Exam: Mucous Membranes Moist, Normal Exam - Neck Exam Neck Exam: Normal Inspection - Respiratory Exam Respiratory Exam: Decreased Breath Sounds (left upper and lower lobes ). absent: Rales, Rhonchi, Wheezes - Cardiovascular Exam Cardiovascular Exam: REGULAR RHYTHM, +S1, +S2 - GI/Abdominal Exam GI & Abdominal Exam: Soft, Normal Bowel Sounds - Extremities Exam Extremities Exam: Full ROM, Pedal Edema - Neurological Exam Neurological Exam: Alert, Awake, Normal Gait, Oriented x3 - Psychiatric Exam Psychiatric exam: Normal Affect, Normal Mood - Skin Skin Exam: Dry, Intact, Normal Color, Warm Assessment and Plan - Assessment and Plan (Free Text) Assessment: 83 year old female with CHF, COPD, ESRD on HD, and multiple additional medical conditions/comorbidities presents with acutely worsening shortness of breath, found to lave large left-sided pleural effusion on chest XR. s/p thoracentesis 07/13/18. Plan: Large L Pleural Effusion -s/p thoracentesis 07/13/18 -1000cc bloody fluid removed -no fluid studies at this time -plan for thoracentesis Monday w/studies -f/u rpt CXR tomorrow AM HF with preserved EF Exacerbation [place] [address] (compared to 06/23/2018 @ 93059 ) -Echo 03/04- EF 60-65% -HD TTS -will get HD tomorrow am -Dr Langston - Nephro consult - recs appreciated -Metoprolol 50 mg daily ESRD on HD T--S -via R permacath -for Dialysis today -Dr. Langston consulted, help appreciated -Phoslo 667mg po TIDCC -Procrit 10,000u TTS Chest Tightness -Likely 2/2 shortness of breath/pleural effusion -JAIME x 3 negative -EKGs x 3 unremarkable Hx Thrombocytopenia/ Hx Myelodysplastic Syndrome improved -platelets 80 -continue to monitor COPD d/c tessalon Perles 100mg po daily as pt complains it aggrivates chest -Breo Ellipta 100/25mg po inh daily -Duonebs q6h PRN Hx PVD with b/l Leg Stents -Tricor 48mg po daily -Crestor 20mg po HS DMII -Januvia 25mg po daily discontinued as patient not longer taking -RISS- low dose achs -hypoglycemia protocol -HgA1C 6.4 on 06/23 HTN -Norvasc 10mg po daily -Metoprolol 50 mg daily HLD -Crestor 20mg po HS 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) -continue to monitor Hypothyroidism -Synthroid 100mcg po daily Prophylaxis -SCDs Pt seen and plan discussed with Dr Hammer <Liz Hammer - Last Filed: 07/17/18 14:21> Objective - Vital Signs/Intake and Output Vital Signs (last 24 hours): Temp Pulse Resp BP Pulse Ox 98 F 89 19 172/79 H 100 07/14/18 14:35 07/14/18 16:06 07/14/18 14:35 07/14/18 14:35 07/14/18 14:35 Intake and Output: 07/14/18 07/14/18 06:59 18:59 Intake Total 150 Balance 150 - Medications Medications: Current Medications Albuterol/Ipratropium (Duoneb 3 Mg/0.5 Mg (3 Ml) Ud) 3 ml INH RQ4 PRN PRN Reason: Shortness of Breath Last Admin: 07/13/18 03:45 Dose: 3 ml Amlodipine Besylate (Norvasc) 10 mg PO DAILY [facility] Last Admin: 07/14/18 10:34 Dose: Not Given Calcium Carbonate (Tums) 500 mg PO TID [facility] Last Admin: 07/14/18 17:02 Dose: 500 mg Dextrose (Dextrose 50% Inj) 0 ml IV STAT PRN; Protocol PRN Reason: Hypoglycemia Protocol Dextrose (Glutose 15) 0 gm PO ONCE PRN; Protocol PRN Reason: Hypoglycemia Protocol Epoetin Brandon (Procrit) 10,000 unit IV TTS [facility] Last Admin: 07/14/18 13:37 Dose: 10,000 unit Fluticasone/Vilanterol (Breo Ellipta 100-25 Mcg Inh) 1 puff INH RQD [facility] Last Admin: 07/14/18 10:21 Dose: 1 puff Glucagon (Glucagen Diagnostic Kit) 0 mg IM STAT PRN; Protocol PRN Reason: Hypoglycemia Protocol Dextrose (Dextrose 5% In Water 1000 Ml) 1,000 mls @ 0 mls/hr IV .Q0M PRN; Protocol PRN Reason: Hypoglycemia Protocol Insulin Human Regular (Novolin R) 0 unit SC ACHS [facility]; Protocol Last Admin: 07/14/18 17:03 Dose: 1 unit Levothyroxine Sodium (Synthroid) 100 mcg PO DAILY@0630 [facility] Last Admin: 07/14/18 05:40 Dose: 100 mcg Metoprolol Tartrate (Lopressor) 50 mg PO DAILY [facility] Last Admin: 07/14/18 10:34 Dose: Not Given Rosuvastatin Calcium (Crestor) 20 mg PO HS [facility] Last Admin: 07/13/18 21:24 Dose: 20 mg - Labs Labs: 07/14/18 07:27 07/14/18 07:27 Attending/Attestation - Attestation I have personally seen and examined this patient.: Yes I have fully participated in the care of the patient.: Yes I have reviewed all pertinent clinical information, including history, physical exam and plan: Yes Notes (Text): Patient was seen and examined this morning. Sitting comfortable in bed not in shortness of breath. Thoracentesis site without bleeding. Bleeding was likely due to low platelet. Chest x-ray after thoracentesis shows significant amount of effusion. Discussed with Dr. Hernandez yesterday patient will need more t horacentesis. We will ask interventional radiologist for thoracentesis on Monday. Patient has no fever no cough. No plan for antibiotics. Her leukocytosis slight delay due to her 07/14/18 18:35 07/14/18 18:37
[2018-07-14] MEDS: (Novolin R) Insulin Human Regular 100 units/ml vial SC SCH ×4 (08:30→21:19)
[2018-07-14 09:18] LABS: EOSINOPHIL 1 % (0-4); LYMPHOCYTE 13 % (20-40); TOTAL CELLS COUNTED 100
[2018-07-14 09:19] LABS: ANISOCYTOSIS MODERATE; MONOCYTE 30 % (0-10); NEUTROPHIL 56 % (50-75); PLATELET ESTIMATE NORMAL (NORMAL); POIKILOCYTOSIS SLIGHT
[2018-07-14 09:20] LABS: HYPOCHROMIC SLIGHT; OVALOCYTES SLIGHT; POLYCHROMIC SLIGHT; STOMATOCYTES SLIGHT
[2018-07-14 09:21] LABS: TEARDROP CELLS SLIGHT
[2018-07-14] MEDS: Fluticasone-Vilanterol 100/25mcg Diskus INH SCH (10:21)
--- NOTE | 2018-07-14 10:23 | CP.PCM.PN ---
Subjective - Date & Time of Evaluation Date of Evaluation: 07/14/18 Time of Evaluation: 10:21 - Subjective Subjective: s/p thoracentesis- 1000ml fluid removed for dialysis now not too dyspneic now no evidence of pneumonia Objective - Vital Signs/Intake and Output Vital Signs (last 24 hours): Temp Pulse Resp BP Pulse Ox 98.0 F 81 20 151/81 H 95 07/14/18 07:00 07/14/18 07:00 07/14/18 07:00 07/14/18 07:00 07/14/18 07:00 Intake and Output: 07/14/18 07/14/18 06:59 18:59 Intake Total 150 Balance 150 - Medications Medications: Current Medications Albuterol/Ipratropium (Duoneb 3 Mg/0.5 Mg (3 Ml) Ud) 3 ml INH RQ4 PRN PRN Reason: Shortness of Breath Last Admin: 07/13/18 03:45 Dose: 3 ml Amlodipine Besylate (Norvasc) 10 mg PO DAILY [facility] Last Admin: 07/13/18 10:59 Dose: 10 mg Benzonatate (Tessalon Perles) 100 mg PO DAILY [facility] Last Admin: 07/13/18 11:00 Dose: 100 mg Calcium Carbonate (Tums) 500 mg PO TID [facility] Last Admin: 07/13/18 17:29 Dose: 500 mg Dextrose (Dextrose 50% Inj) 0 ml IV STAT PRN; Protocol PRN Reason: Hypoglycemia Protocol Dextrose (Glutose 15) 0 gm PO ONCE PRN; Protocol PRN Reason: Hypoglycemia Protocol Epoetin Brandon (Procrit) 10,000 unit IV TTS [facility] Fluticasone/Vilanterol (Breo Ellipta 100-25 Mcg Inh) 1 puff INH RQD [facility] Last Admin: 07/13/18 11:27 Dose: 1 puff Glucagon (Glucagen Diagnostic Kit) 0 mg IM STAT PRN; Protocol PRN Reason: Hypoglycemia Protocol Dextrose (Dextrose 5% In Water 1000 Ml) 1,000 mls @ 0 mls/hr IV .Q0M PRN; Protocol PRN Reason: Hypoglycemia Protocol Insulin Human Regular (Novolin R) 0 unit SC ACHS [facility]; Protocol Last Admin: 07/14/18 08:30 Dose: 1 u Levothyroxine Sodium (Synthroid) 100 mcg PO DAILY@0630 [facility] Last Admin: 07/14/18 05:40 Dose: 100 mcg Metoprolol Tartrate (Lopressor) 50 mg PO DAILY [facility] Last Admin: 07/13/18 11:00 Dose: 50 mg Rosuvastatin Calcium (Crestor) 20 mg PO HS [facility] Last Admin: 07/13/18 21:24 Dose: 20 mg - Labs Labs: 07/14/18 07:27 07/14/18 07:27 - Constitutional Appears: No Acute Distress, Chronically Ill - Head Exam Head Exam: ATRAUMATIC, NORMAL INSPECTION - Eye Exam Eye Exam: EOMI, Normal appearance - Neck Exam Neck Exam: Normal Inspection. absent: Tenderness - Respiratory Exam Respiratory Exam: Decreased Breath Sounds, NORMAL BREATHING PATTERN - Cardiovascular Exam Cardiovascular Exam: REGULAR RHYTHM, +S1 - GI/Abdominal Exam GI & Abdominal Exam: Soft. absent: Tenderness - Extremities Exam Extremities Exam: Normal Inspection. absent: Tenderness - Neurological Exam Neurological Exam: Awake, CN II-XII Intact - Skin Skin Exam: Dry, Warm Assessment and Plan (1) Pulmonary fibrosis Status: Acute (2) Pleural effusion Status: Acute (3) CHF (congestive heart failure) Status: Acute (4) CMML (chronic myelomonocytic leukemia) Status: Acute (5) Pleural effusion Status: Acute (6) COPD (chronic obstructive pulmonary disease) Status: Chronic - Assessment and Plan (Free Text) Plan: aggressive UF with dialysis HD TTS pulmonary plans
[2018-07-14] MEDS: Calcium Carbonate 500 mg Chewable Antacid Tab PO SCH ×3 (10:32→17:02)
[2018-07-14] MEDS: Epoetin Alfa 10,000 unit/ml Dialysis IV SCH (13:37)
--- NOTE | 2018-07-14 23:06 | CP.PCM.CON ---
History of Present Illness - History of Present Illness History of Present Illness: CC: Dyspnea on exertion Patient is an 83 year old female with PMhx DM, HTN, HLD, PVD, ESRD on HD TTS, COPD, hypothyroidism, CHF with preserved EF, anemia, pneumonia, and myelodysplastic syndrome who is well known to our service. She presents this evening with chronic but acutely worsening shortness of breath. Patient states having shortness of breath for the past two months. Over the past couple of days her breathing has been getting worse. She went for dialysis this morning, and following dialysis she continued to be very short of breath. She went to see her education diagnostician, Dr. Sisi Day and was noted to be satting at 70% on AL and was subsequently sent to [facility] ER. Patient has had multiple hospitalizations for similar symptoms, most recently discharged from [facility] for shortness of breath on 06/26. 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 Meds: -Tessalon Perles 100mg po daily -Breo Ellipta 100/25 one puff inhaled daily at 8am -Hydralazine 25 mg one tab by mouth three times per day at 8am, 2pm, and 8pm -Proair 1 puff as needed for symptoms -Norvasc 10 mg 1 tab by mouth daily at 8am -Phoslo 667 mg by mouth three times per day at 8am, 2pm, and 8pm -Tricor 48 mg 1 tab by mouth daily at 8am -Synthroid 100 mcg 1 tab by mouth daily at 8am -Metoprolol 25 mg 1 tab by mouth daily at 2pm -Crestor 20 mg 1 tab by mouth before bedtime -Januvia 25 mg 1 tab by mouth daily at 8am Allergies: NKDA PMD: Dr. Clements Nephro: Dr. Langston, hemodialysis at [facility] [address] T, Th, S via permacath, no AVF Pulmonary: Dr. Hernandez Cardio: Dr. Sisi Day [phone] Hem/Onc: Dr. Avel Day [phone] Code Status: Full code Proxy: Bharati Keene (First Daughter, ) and Ayla ( Second daughter, ) Present on Admission - Present on Admission Any Indicators Present on Admission: No Review of Systems - Constitutional Constitutional: absent: Chills, Fever - EENT Eyes: absent: Blurred Vision, Diplopia Nose/Mouth/Throat: absent: Nasal Congestion, Nasal Discharge - Cardiovascular Cardiovascular: absent: Chest Pain, Chest Pain at Rest, Edema, Palpitations Additional comments: Chest tightness a/w SOB - Respiratory Respiratory: Dyspnea, Dyspnea on Exertion. absent: Cough, Wheezing - Genitourinary Genitourinary: absent: Dysuria, Flank Pain - Musculoskeletal Musculoskeletal: absent: Back Pain, Neck Pain - Neurological Neurological: absent: Dizziness, Focal Weakness, Headaches - Psychiatric Psychiatric: absent: Anxiety, Depression - Endocrine Endocrine: absent: Fatigue, Palpitations Physical Exam - Constitutional Appears: Non-toxic, No Acute Distress - Head Exam Head Exam: ATRAUMATIC, NORMOCEPHALIC - Eye Exam Eye Exam: EOMI - ENT Exam ENT Exam: Mucous Membranes Moist - Respiratory Exam Respiratory Exam: Rales (L lung). absent: Accessory Muscle Use, Wheezes - Cardiovascular Exam Cardiovascular Exam: REGULAR RHYTHM, +S1, +S2 Additional comments: R chest permacath - GI/Abdominal Exam GI & Abdominal Exam: Normal Bowel Sounds, Soft. absent: Tenderness - Extremities Exam Extremities exam: Positive for: normal inspection. Negative for: pedal edema, tenderness - Neurological Exam Neurological exam: Alert, CN II-XII Intact, Oriented x3 - Psychiatric Exam Psychiatric exam: Normal Affect, Normal Mood - Skin Skin Exam: Dry, Intact Assessment & Plan - Assessment and Plan (Free Text) Assessment: 83 year old female with CHF, COPD, ESRD on HD, and multiple additional medical conditions/comorbidities presents with acutely worsening shortness of breath, found to lave large left-sided pleural effusion on chest XR. Large L Pleural Effusion -s/p Thoracentasis HF with preserved EF [place]ation [place] [address] (compared to 06/23/2018 @ 36575 ) -HD TTS - had outpatient earlier today -Metoprolol 50 mg daily ESRD on HD T--S -via R permacath -Dialysis earlier today ([facility]) -Dr. Langston consulted, help appreciated -Phoslo 667mg po TIDCC Hx Thrombocytopenia/ Hx Myelodysplastic Syndrome -platelets 70. MR 97 on d/c 06/23/18 COPD -Patient breathing comfortably on NC, satting in high 90s -Tessalon Perles 100mg po daily -Breo Ellipta 100/25mg po inh daily -Duonebs q6h PRN Hx PVD with b/l Leg Stents -Tricor 48mg po daily -Crestor 20mg po HS DMII -Januvia 25mg po daily -RISS- low dose achs -hypoglycemia protocol -HgA1C 6.4 on 06/23 HTN -Norvasc 10mg po daily -Metoprolol 50 mg daily HLD -Tricor 48mg po daily -Crestor 20mg po HS Hx Anemia of Chronic Disease (06/16 ESRD) -Hgb 9.0 -continue to monitor Hypothyroidism -Synthroid 100mcg po daily Prophylaxis -SCDs -Contraindication to VTE - thrombocytopenia Patient s/p Thoracentasis. Feels better. F/U Dr. Day as out patient for cardiology Past Patient History - Infectious Disease Hx of Infectious Diseases: None - Tetanus Immunizations Tetanus Immunization: Unknown - Past Medical History & Family History Past Medical History?: Yes Past Family History: Reviewed and not pertinent - Past Social History Smoking Status: Never Smoked Chewing Tobacco Use: No Cigar Use: No Alcohol: None Drugs: Denies Home Situation {Lives}: With Family - CARDIAC Hx Congestive Heart Failure: Yes - PULMONARY Hx Asthma: Yes Hx Chronic Obstructive Pulmonary Disease (COPD): Yes Hx Pneumonia: Yes - NEUROLOGICAL Hx Neurological Disorder: No - HEENT Hx HEENT Problems: Yes Hx Cataracts: Yes Other/Comment: Corneal replacement both eyes - RENAL Hx Chronic Kidney Disease: Yes Hx Kidney Stones: Yes - ENDOCRINE/METABOLIC Hx Hypothyroidism: Yes - HEMATOLOGICAL/ONCOLOGICAL Hx Anemia: Yes - INTEGUMENTARY Hx Dermatological Problems: No - MUSCULOSKELETAL/RHEUMATOLOGICAL Hx Arthritis: Yes Hx Osteoporosis: Yes - GASTROINTESTINAL Hx Gastritis: Yes - GENITOURINARY/GYNECOLOGICAL Hx Genitourinary Disorders: No - PSYCHIATRIC Hx Substance Use: No - SURGICAL HISTORY Hx Surgeries: Yes Hx Cataract Extraction: Yes Other/Comment: Vascular stents. Bone marrow aspiration. Corneal transplant. Permacath Insertion - ANESTHESIA Hx Anesthesia: Yes Hx Anesthesia Reactions: No Hx Malignant Hyperthermia: No Meds Allergies/Adverse Reactions: Allergies Allergy/AdvReac Type Severity Reaction Status Date / Time No Known Allergies Allergy Verified 07/12/18 15:59 - Medications Medications: Current Medications Albuterol/Ipratropium (Duoneb 3 Mg/0.5 Mg (3 Ml) Ud) 3 ml INH RQ4 PRN PRN Reason: Shortness of Breath Last Admin: 07/13/18 03:45 Dose: 3 ml Amlodipine Besylate (Norvasc) 10 mg PO DAILY [facility] Last Admin: 07/14/18 10:34 Dose: Not Given Calcium Carbonate (Tums) 500 mg PO TID [facility] Last Admin: 07/14/18 17:02 Dose: 500 mg Dextrose (Dextrose 50% Inj) 0 ml IV STAT PRN; Protocol PRN Reason: Hypoglycemia Protocol Dextrose (Glutose 15) 0 gm PO ONCE PRN; Protocol PRN Reason: Hypoglycemia Protocol Epoetin Brandon (Procrit) 10,000 unit IV TTS [facility] Last Admin: 07/14/18 13:37 Dose: 10,000 unit Fluticasone/Vilanterol (Breo Ellipta 100-25 Mcg Inh) 1 puff INH RQD [facility] Last Admin: 07/14/18 10:21 Dose: 1 puff Glucagon (Glucagen Diagnostic Kit) 0 mg IM STAT PRN; Protocol PRN Reason: Hypoglycemia Protocol Dextrose (Dextrose 5% In Water 1000 Ml) 1,000 mls @ 0 mls/hr IV .Q0M PRN; Protocol PRN Reason: Hypoglycemia Protocol Insulin Human Regular (Novolin R) 0 unit SC ACHS [facility]; Protocol Last Admin: 07/14/18 21:19 Dose: Not Given Levothyroxine Sodium (Synthroid) 100 mcg PO DAILY@0630 [facility] Last Admin: 07/14/18 05:40 Dose: 100 mcg Metoprolol Tartrate (Lopressor) 50 mg PO DAILY [facility] Last Admin: 07/14/18 10:34 Dose: Not Given Rosuvastatin Calcium (Crestor) 20 mg PO HS [facility] Last Admin: 07/14/18 21:52 Dose: 20 mg Results - Vital Signs Recent Vital Signs: Last Vital Signs Temp 99.2 F 07/14/18 15:00 Pulse 89 07/14/18 16:06 Resp 20 07/14/18 15:00 BP 131/57 L 07/14/18 15:00 Pulse Ox 98 07/14/18 15:00 - Labs Result Diagrams: 07/14/18 07:27 07/14/18 07:27 Labs: Laboratory Results - last 24 hr 07/13/18 07/14/18 07/14/18 06:24 05:21 06:18 WBC RBC Hgb Hct MCV MCH MCHC RDW Plt Count MPV Neut % (Auto) Lymph % (Auto) Frontier % (Auto) Eos % (Auto) Baso % (Auto) Neut # (Auto) Lymph # (Auto) Frontier # (Auto) Eos # (Auto) Baso # (Auto) Neutrophils % (Manual) Lymphocytes % (Manual) Monocytes % (Manual) Eosinophils % (Manual) Platelet Estimate Polychromasia Hypochromasia (manual) Poikilocytosis (manual Anisocytosis (manual) Macrocytosis (manual) Tear Drop Cells Ovalocytes Stomatocytes Sodium Potassium Chloride Carbon Dioxide Anion Gap BUN Creatinine Est GFR ( Amer) Est GFR (Non-Af Amer) POC Glucose (mg/dL) 122 H 112 H 151 H Random Glucose Calcium Total Bilirubin AST ALT Alkaline Phosphatase Total Protein Albumin Globulin Albumin/Globulin Ratio 07/14/18 07/14/18 07/14/18 07:27 07:27 12:14 WBC 18.8 H RBC 2.70 L Hgb 9.1 L Hct 28.5 L MCV 105.4 H MCH 33.6 H MCHC 31.9 L RDW 20.5 H Plt Count 80 L D MPV 9.8 Neut % (Auto) 52.0 Lymph % (Auto) 16.9 L Frontier % (Auto) 30.4 H Eos % (Auto) 0.5 Baso % (Auto) 0.2 Neut # (Auto) 9.7 H Lymph # (Auto) 3.2 Frontier # (Auto) 5.7 H Eos # (Auto) 0.1 Baso # (Auto) 0.0 Neutrophils % (Manual) 56 Lymphocytes % (Manual) 13 L Monocytes % (Manual) 30 H Eosinophils % (Manual) 1 Platelet Estimate Normal Polychromasia Slight Hypochromasia (manual) Slight Poikilocytosis (manual Slight Anisocytosis (manual) Moderate Macrocytosis (manual) Moderate Tear Drop Cells Slight Ovalocytes Slight Stomatocytes Slight Sodium 136 Potassium 3.8 Chloride 96 L Carbon Dioxide 33 H Anion Gap 10 BUN 26 H Creatinine 3.3 H Est GFR ( Amer) 16 Est GFR (Non-Af Amer) 13 POC Glucose (mg/dL) 136 H Random Glucose 129 H Calcium 8.4 L Total Bilirubin 0.4 AST 23 ALT 9 Alkaline Phosphatase 54 Total Protein 7.7 Albumin 3.5 Globulin 4.2 H Albumin/Globulin Ratio 0.8 L 07/14/18 07/14/18 16:36 21:12 WBC RBC Hgb Hct MCV MCH MCHC RDW Plt Count MPV Neut % (Auto) Lymph % (Auto) Frontier % (Auto) Eos % (Auto) Baso % (Auto) Neut # (Auto) Lymph # (Auto) Frontier # (Auto) Eos # (Auto) Baso # (Auto) Neutrophils % (Manual) Lymphocytes % (Manual) Monocytes % (Manual) Eosinophils % (Manual) Platelet Estimate Polychromasia Hypochromasia (manual) Poikilocytosis (manual Anisocytosis (manual) Macrocytosis (manual) Tear Drop Cells Ovalocytes Stomatocytes Sodium Potassium Chloride Carbon Dioxide Anion Gap BUN Creatinine Est GFR ( Amer) Est GFR (Non-Af Amer) POC Glucose (mg/dL) 184 H 267 H Random Glucose Calcium Total Bilirubin AST ALT Alkaline Phosphatase Total Protein Albumin Globulin Albumin/Globulin Ratio
[2018-07-15] MEDS: Levothyroxine 100 MCG TAB PO SCH (06:05)
[2018-07-15] MEDS: (Novolin R) Insulin Human Regular 100 units/ml vial SC SCH ×4 (08:30→21:07)
[2018-07-15 09:27] LABS: BASO # 0.1 K/uL (0.0-0.2); BASO % 0.3 % (0.0-2.0); EOS # 0.1 K/uL (0.0-0.7); EOS % 0.5 % (0.0-4.0); HEMOGLOBIN 9.6 g/dL (11.0-16.0); LYMPH # 3.2 K/uL (1.0-4.3); LYMPH % 15.7 % (20.0-40.0); MEAN CELL VOLUME 105.9 fL (81.0-99.0); MEAN CORPUSCULAR HEMOGLOBIN 33.1 pg (27.0-31.0); MEAN CORPUSCULAR HGB CONC 31.3 g/dL (33.0-37.0); MEAN PLATELET VOLUME 9.8 fL (7.2-11.7); MONO # 7.6 K/uL (0.0-0.8); MONO % 36.8 % (0.0-10.0); NEUT # 9.6 K/uL (1.8-7.0); NEUT % 46.7 % (50.0-75.0); PLATELET COUNT 65 K/uL (130-400); WHITE BLOOD COUNT 20.5 K/uL (4.8-10.8)
[2018-07-15 09:47] LABS: ALBUMIN 3.7 g/dL (3.5-5.0); CALCIUM 8.4 mg/dl (8.6-10.4)
[2018-07-15 09:48] LABS: ALB/GLOB RATIO 0.8 (1.0-2.1)
--- NOTE | 2018-07-15 09:51 | CP.PCM.PN ---
<Cherrie Carrasco - Last Filed: 07/15/18 09:49> Subjective - Date & Time of Evaluation Date of Evaluation: 07/15/18 Time of Evaluation: 09:49 - Subjective Subjective: Cherrie Carrasco PGY1 Progress Note for Dr. Hammer Pt was examined at bedside this morning. She reports improvement in her breathing. She feels well. Objective - Vital Signs/Intake and Output Vital Signs (last 24 hours): Temp Pulse Resp BP Pulse Ox 99.0 F 95 H 20 131/57 L 100 07/15/18 08:42 07/15/18 08:42 07/15/18 08:42 07/15/18 08:42 07/15/18 08:42 - Medications Medications: Current Medications Albuterol/Ipratropium (Duoneb 3 Mg/0.5 Mg (3 Ml) Ud) 3 ml INH RQ4 PRN PRN Reason: Shortness of Breath Last Admin: 07/13/18 03:45 Dose: 3 ml Amlodipine Besylate (Norvasc) 10 mg PO DAILY [facility] Last Admin: 07/14/18 10:34 Dose: Not Given Calcium Carbonate (Tums) 500 mg PO TID [facility] Last Admin: 07/14/18 17:02 Dose: 500 mg Dextrose (Dextrose 50% Inj) 0 ml IV STAT PRN; Protocol PRN Reason: Hypoglycemia Protocol Dextrose (Glutose 15) 0 gm PO ONCE PRN; Protocol PRN Reason: Hypoglycemia Protocol Epoetin Brandon (Procrit) 10,000 unit IV TTS [facility] Last Admin: 07/14/18 13:37 Dose: 10,000 unit Fluticasone/Vilanterol (Breo Ellipta 100-25 Mcg Inh) 1 puff INH RQD [facility] Last Admin: 07/14/18 10:21 Dose: 1 puff Glucagon (Glucagen Diagnostic Kit) 0 mg IM STAT PRN; Protocol PRN Reason: Hypoglycemia Protocol Dextrose (Dextrose 5% In Water 1000 Ml) 1,000 mls @ 0 mls/hr IV .Q0M PRN; Protocol PRN Reason: Hypoglycemia Protocol Insulin Human Regular (Novolin R) 0 unit SC ACHS [facility]; Protocol Last Admin: 07/15/18 08:30 Dose: Not Given Levothyroxine Sodium (Synthroid) 100 mcg PO DAILY@0630 [facility] Last Admin: 07/15/18 06:05 Dose: 100 mcg Metoprolol Tartrate (Lopressor) 50 mg PO DAILY [facility] Last Admin: 07/14/18 10:34 Dose: Not Given Rosuvastatin Calcium (Crestor) 20 mg PO HS [facility] Last Admin: 07/14/18 21:52 Dose: 20 mg - Labs Labs: 07/15/18 09:17 07/15/18 09:17 - Additional Findings Additional findings: - Constitutional Appears: Non-toxic, No Acute Distress - Head Exam Head Exam: ATRAUMATIC, NORMAL INSPECTION, NORMOCEPHALIC - Eye Exam Eye Exam: Normal appearance - ENT Exam ENT Exam: Mucous Membranes Moist, Normal Exam - Neck Exam Neck Exam: Normal Inspection - Respiratory Exam Respiratory Exam: Decreased Breath Sounds (left upper and lower lobes ). absent: Rales, Rhonchi, Wheezes - Cardiovascular Exam Cardiovascular Exam: REGULAR RHYTHM, +S1, +S2 - GI/Abdominal Exam GI & Abdominal Exam: Soft, Normal Bowel Sounds - Extremities Exam Extremities Exam: Full ROM, Pedal Edema - Neurological Exam Neurological Exam: Alert, Awake, Normal Gait, Oriented x3 - Psychiatric Exam Psychiatric exam: Normal Affect, Normal Mood - Skin Skin Exam: Dry, Intact, Normal Color, Warm Assessment and Plan - Assessment and Plan (Free Text) Assessment: 83 year old female with CHF, COPD, ESRD on HD, and multiple additional medical conditions/comorbidities presents with acutely worsening shortness of breath, found to lave large left-sided pleural effusion on chest XR. s/p thoracentesis 07/13/18. For thoracentesis 07/16/18. Plan: Large L Pleural Effusion -s/p thoracentesis 07/13/18 -1000cc bloody fluid removed -no fluid studies at this time -plan for thoracentesis Monday w/studies -rpt CXR 07/15: HF with preserved EF [place]acerbation [place] [address] (compared to 06/23/18 @ 70416 ) -Echo 03/04- EF 60-65% -HD TTS -Dr Langston - Nephro consult - recs appreciated -Metoprolol 50 mg daily ESRD on HD T--S -via R permacath -for Dialysis today -Dr. Langston consulted, help appreciated -Phoslo 667mg po TIDCC -Procrit 10,000u TTS Chest Tightness improved -Likely 2/2 shortness of breath/pleural effusion -JAIME x 3 negative -EKGs x 3 unremarkable Hx Thrombocytopenia/ Hx Myelodysplastic Syndrome improved -platelets 65 -continue to monitor COPD - NC PRN -Breo Ellipta 100/25mg po inh daily -Duonebs q6h PRN Hx PVD with b/l Leg Stents -Tricor 48mg po daily -Crestor 20mg po HS DMII -Januvia 25mg po daily discontinued as patient not longer taking -RISS- low dose achs -hypoglycemia protocol -HgA1C 6.4 on 06/23 HTN -Norvasc 10mg po daily -Metoprolol 50 mg daily HLD -Crestor 20mg po HS 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) -continue to monitor Hypothyroidism -Synthroid 100mcg po daily Prophylaxis -SCDs Pt seen and plan discussed with Dr Hammer <Liz Hammer - Last Filed: 07/17/18 14:21> Objective - Vital Signs/Intake and Output Vital Signs (last 24 hours): Temp Pulse Resp BP Pulse Ox 98.3 F 88 20 150/56 L 98 07/17/18 07:00 07/17/18 09:40 07/17/18 09:40 07/17/18 09:40 07/17/18 09:40 Intake and Output: 07/17/18 07/17/18 06:59 18:59 Intake Total 251 Balance 251 - Medications Medications: Current Medications Acetaminophen (Tylenol 325mg Tab) 650 mg PO Q6 PRN PRN Reason: Pain, moderate (4-7) Albuterol/Ipratropium (Duoneb 3 Mg/0.5 Mg (3 Ml) Ud) 3 ml INH RQ4 PRN PRN Reason: Shortness of Breath Last Admin: 07/13/18 03:45 Dose: 3 ml Amlodipine Besylate (Norvasc) 10 mg PO DAILY [facility] Last Admin: 07/17/18 09:39 Dose: 10 mg Calcium Carbonate (Tums) 500 mg PO TID [facility] Last Admin: 07/17/18 14:19 Dose: Not Given Dextrose (Dextrose 50% Inj) 0 ml IV STAT PRN; Protocol PRN Reason: Hypoglycemia Protocol Dextrose (Glutose 15) 0 gm PO ONCE PRN; Protocol PRN Reason: Hypoglycemia Protocol Epoetin Brandon (Procrit) 10,000 unit IV TTS [facility] Last Admin: 07/14/18 13:37 Dose: 10,000 unit Fluticasone/Vilanterol (Breo Ellipta 100-25 Mcg Inh) 1 puff INH RQD [facility] Last Admin: 07/17/18 08:08 Dose: 1 puff Glucagon (Glucagen Diagnostic Kit) 0 mg IM STAT PRN; Protocol PRN Reason: Hypoglycemia Protocol Dextrose (Dextrose 5% In Water 1000 Ml) 1,000 mls @ 0 mls/hr IV .Q0M PRN; Protocol PRN Reason: Hypoglycemia Protocol Insulin Human Regular (Novolin R) 0 unit SC ACHS [facility]; Protocol Last Admin: 07/17/18 12:25 Dose: 2 unit Levothyroxine Sodium (Synthroid) 100 mcg PO DAILY@0630 [facility] Last Admin: 07/17/18 05:51 Dose: 100 mcg Metoprolol Tartrate (Lopressor) 50 mg PO BID [facility] Last Admin: 07/17/18 09:39 Dose: 50 mg Rosuvastatin Calcium (Crestor) 20 mg PO HS [facility] Last Admin: 07/16/18 21:22 Dose: 20 mg - Labs Labs: 07/17/18 07:04 07/17/18 07:04 Attending/Attestation - Attestation I have personally seen and examined this patient.: Yes I have fully participated in the care of the patient.: Yes I have reviewed all pertinent clinical information, including history, physical exam and plan: Yes Notes (Text): Seen and examined by me with the resident. Assessment and the plan discussed.
[2018-07-15] MEDS: Calcium Carbonate 500 mg Chewable Antacid Tab PO SCH ×3 (11:00→17:31)
[2018-07-15 11:29] LABS: MONOCYTE 33 % (0-10); TOTAL CELLS COUNTED 100
[2018-07-15 11:30] LABS: ANISOCYTOSIS MODERATE; LYMPHOCYTE 15 % (20-40); NEUTROPHIL 52 % (50-75); PLATELET ESTIMATE DECREASED (NORMAL); POIKILOCYTOSIS SLIGHT
[2018-07-15 11:31] LABS: HYPOCHROMIC SLIGHT; OVALOCYTES SLIGHT; POLYCHROMIC SLIGHT; SPHEROCYTES SLIGHT; STOMATOCYTES SLIGHT
[2018-07-15] MEDS: Fluticasone-Vilanterol 100/25mcg Diskus INH SCH (12:15)
--- NOTE | 2018-07-15 14:00 | RAD ---
Date of service: 07/15/2018 HISTORY: Status post thoracentesis COMPARISON: Comparison chest 3 2018 FINDINGS: No change in situ right IJ dialysis catheter with tips in the SVC/RA junction LUNGS: Redemonstrated is subtotal opacification of left hemithorax most consistent with some combination of large effusion associated with atelectasis and/or infiltrate. Residual mild atelectasis right lung base PLEURA: As above. CARDIOVASCULAR: Mild-moderate aortic atherosclerotic calcification present. Heart size difficult to assess due to silhouetting left cardiac border no pulmonary vascular congestion. OSSEOUS STRUCTURES: No significant abnormalities. VISUALIZED UPPER ABDOMEN: Normal. OTHER FINDINGS: None. IMPRESSION: Redemonstrated is subtotal opacification of left hemithorax most consistent with some combination of large effusion associated with atelectasis and/or infiltrate. Residual mild atelectasis right lung base
--- NOTE | 2018-07-15 20:03 | CP.PCM.PN ---
Subjective - Date & Time of Evaluation Date of Evaluation: 07/15/18 Time of Evaluation: 11:10 - Subjective Subjective: Pt was examined at bedside. Feels improvement in breathing. Denies chest pain Objective - Vital Signs/Intake and Output Vital Signs (last 24 hours): Temp Pulse Resp BP Pulse Ox 99.0 F 95 H 20 131/57 L 100 07/15/18 08:42 07/15/18 08:42 07/15/18 08:42 07/15/18 08:42 07/15/18 08:42 - Medications Medications: Current Medications Albuterol/Ipratropium (Duoneb 3 Mg/0.5 Mg (3 Ml) Ud) 3 ml INH RQ4 PRN PRN Reason: Shortness of Breath Last Admin: 07/13/18 03:45 Dose: 3 ml Amlodipine Besylate (Norvasc) 10 mg PO DAILY [facility] Last Admin: 07/14/18 10:34 Dose: Not Given Calcium Carbonate (Tums) 500 mg PO TID [facility] Last Admin: 07/14/18 17:02 Dose: 500 mg Dextrose (Dextrose 50% Inj) 0 ml IV STAT PRN; Protocol PRN Reason: Hypoglycemia Protocol Dextrose (Glutose 15) 0 gm PO ONCE PRN; Protocol PRN Reason: Hypoglycemia Protocol Epoetin Brandon (Procrit) 10,000 unit IV TTS [facility] Last Admin: 07/14/18 13:37 Dose: 10,000 unit Fluticasone/Vilanterol (Breo Ellipta 100-25 Mcg Inh) 1 puff INH RQD [facility] Last Admin: 07/14/18 10:21 Dose: 1 puff Glucagon (Glucagen Diagnostic Kit) 0 mg IM STAT PRN; Protocol PRN Reason: Hypoglycemia Protocol Dextrose (Dextrose 5% In Water 1000 Ml) 1,000 mls @ 0 mls/hr IV .Q0M PRN; Protocol PRN Reason: Hypoglycemia Protocol Insulin Human Regular (Novolin R) 0 unit SC ACHS [facility]; Protocol Last Admin: 07/15/18 08:30 Dose: Not Given Levothyroxine Sodium (Synthroid) 100 mcg PO DAILY@0630 [facility] Last Admin: 07/15/18 06:05 Dose: 100 mcg Metoprolol Tartrate (Lopressor) 50 mg PO DAILY [facility] Last Admin: 07/14/18 10:34 Dose: Not Given Rosuvastatin Calcium (Crestor) 20 mg PO HS [facility] Last Admin: 07/14/18 21:52 Dose: 20 mg - Labs Labs: 07/15/18 09:17 07/15/18 09:17 - Additional Findings Additional findings: - Constitutional Appears: Non-toxic, No Acute Distress - Head Exam Head Exam: ATRAUMATIC, NORMAL INSPECTION, NORMOCEPHALIC - Eye Exam Eye Exam: Normal appearance - ENT Exam ENT Exam: Mucous Membranes Moist, Normal Exam - Neck Exam Neck Exam: Normal Inspection - Respiratory Exam Respiratory Exam: Decreased Breath Sounds (left upper and lower lobes ). absent: Rales, Rhonchi, Wheezes - Cardiovascular Exam Cardiovascular Exam: REGULAR RHYTHM, +S1, +S2 - GI/Abdominal Exam GI & Abdominal Exam: Soft, Normal Bowel Sounds - Extremities Exam Extremities Exam: Full ROM, Pedal Edema - Neurological Exam Neurological Exam: Alert, Awake, Normal Gait, Oriented x3 - Psychiatric Exam Psychiatric exam: Normal Affect, Normal Mood - Skin Skin Exam: Dry, Intact, Normal Color, Warm Assessment and Plan - Assessment and Plan (Free Text) Assessment: 83 year old female with CHF, COPD, ESRD on HD, and multiple additional medical conditions/comorbidities presents with acutely worsening shortness of breath, found to lave large left-sided pleural effusion on chest XR. s/p thoracentesis 07/13/18. For thoracentesis 07/16/18. Plan: Large L Pleural Effusion -s/p thoracentesis 07/13/18 -1000cc bloody fluid removed -no fluid studies at this time -plan for thoracentesis Monday w/studies -rpt CXR 07/15: HF with preserved [place]ation [place] [address] (compared to 06/23/18 @ 56364 ) -Echo 03/04- EF 60-65% -HD TTS -Dr Langston - Nephro consult - recs appreciated -Metoprolol 50 mg daily ESRD on HD T--S -via R permacath -for Dialysis today -Dr. Langston consulted, help appreciated -Phoslo 667mg po TIDCC -Procrit 10,000u TTS Chest Tightness improved -Likely 2/2 shortness of breath/pleural effusion -JAIME x 3 negative -EKGs x 3 unremarkable Hx Thrombocytopenia/ Hx Myelodysplastic Syndrome improved -platelets 65 -continue to monitor COPD - NC PRN -Breo Ellipta 100/25mg po inh daily -Duonebs q6h PRN Hx PVD with b/l Leg Stents -Tricor 48mg po daily -Crestor 20mg po HS DMII -Januvia 25mg po daily discontinued as patient not longer taking -RISS- low dose achs -hypoglycemia protocol -HgA1C 6.4 on 06/23 HTN -Norvasc 10mg po daily -Metoprolol 50 mg daily HLD -Crestor 20mg po HS Hx Anemia of Chronic Disease (/ ESRD) -continue to monitor Hypothyroidism -Synthroid 100mcg po daily Prophylaxis -SCDs Objective - Vital Signs/Intake and Output Vital Signs (last 24 hours): Temp Pulse Resp BP Pulse Ox 98.6 F 89 20 145/75 100 07/15/18 17:16 07/15/18 17:16 07/15/18 17:16 07/15/18 17:16 07/15/18 17:16 - Medications Medications: Current Medications Acetaminophen (Tylenol 325mg Tab) 650 mg PO Q6 PRN PRN Reason: Pain, moderate (4-7) Albuterol/Ipratropium (Duoneb 3 Mg/0.5 Mg (3 Ml) Ud) 3 ml INH RQ4 PRN PRN Reason: Shortness of Breath Last Admin: 07/13/18 03:45 Dose: 3 ml Amlodipine Besylate (Norvasc) 10 mg PO DAILY [facility] Last Admin: 07/15/18 11:00 Dose: 10 mg Calcium Carbonate (Tums) 500 mg PO TID [facility] Last Admin: 07/15/18 17:31 Dose: 500 mg Dextrose (Dextrose 50% Inj) 0 ml IV STAT PRN; Protocol PRN Reason: Hypoglycemia Protocol Dextrose (Glutose 15) 0 gm PO ONCE PRN; Protocol PRN Reason: Hypoglycemia Protocol Epoetin Brandon (Procrit) 10,000 unit IV TTS [facility] Last Admin: 07/14/18 13:37 Dose: 10,000 unit Fluticasone/Vilanterol (Breo Ellipta 100-25 Mcg Inh) 1 puff INH RQD [facility] Last Admin: 07/15/18 12:15 Dose: 1 puff Glucagon (Glucagen Diagnostic Kit) 0 mg IM STAT PRN; Protocol PRN Reason: Hypoglycemia Protocol Dextrose (Dextrose 5% In Water 1000 Ml) 1,000 mls @ 0 mls/hr IV .Q0M PRN; Protocol PRN Reason: Hypoglycemia Protocol Insulin Human Regular (Novolin R) 0 unit SC ACHS [facility]; Protocol Last Admin: 07/15/18 16:39 Dose: Not Given Levothyroxine Sodium (Synthroid) 100 mcg PO DAILY@0630 [facility] Last Admin: 07/15/18 06:05 Dose: 100 mcg Metoprolol Tartrate (Lopressor) 50 mg PO DAILY [facility] Last Admin: 07/15/18 11:00 Dose: 50 mg Rosuvastatin Calcium (Crestor) 20 mg PO HS [facility] Last Admin: 07/14/18 21:52 Dose: 20 mg - Labs Labs: 07/15/18 09:17 07/15/18 09:17
[2018-07-16] MEDS: Levothyroxine 100 MCG TAB PO SCH (05:45)
--- NOTE | 2018-07-16 07:28 | CP.PCM.PN ---
<Emile Seals - Last Filed: 07/16/18 17:48> Subjective - Date & Time of Evaluation Date of Evaluation: 07/16/18 Time of Evaluation: 07:28 - Subjective Subjective: Progress Note for Hospitalist service Patient seen and examined at bedside. She states she is feeling better, walking around her bed, was able to sleep well last night. She states she denies fevers, chills, headache, dizziness, chest pain, shortness of breath, palpitations, abdominal pain, nausea, vomiting, diarrhea, leg pain. Objective - Vital Signs/Intake and Output Vital Signs (last 24 hours): Temp Pulse Resp BP Pulse Ox 98 F 88 20 186/61 H 97 07/16/18 04:30 07/16/18 04:30 07/16/18 04:30 07/16/18 04:30 07/16/18 04:30 - Medications Medications: Current Medications Acetaminophen (Tylenol 325mg Tab) 650 mg PO Q6 PRN PRN Reason: Pain, moderate (4-7) Albuterol/Ipratropium (Duoneb 3 Mg/0.5 Mg (3 Ml) Ud) 3 ml INH RQ4 PRN PRN Reason: Shortness of Breath Last Admin: 07/13/18 03:45 Dose: 3 ml Amlodipine Besylate (Norvasc) 10 mg PO DAILY [facility] Last Admin: 07/15/18 11:00 Dose: 10 mg Calcium Carbonate (Tums) 500 mg PO TID [facility] Last Admin: 07/15/18 17:31 Dose: 500 mg Dextrose (Dextrose 50% Inj) 0 ml IV STAT PRN; Protocol PRN Reason: Hypoglycemia Protocol Dextrose (Glutose 15) 0 gm PO ONCE PRN; Protocol PRN Reason: Hypoglycemia Protocol Epoetin Brandon (Procrit) 10,000 unit IV TTS [facility] Last Admin: 07/14/18 13:37 Dose: 10,000 unit Fluticasone/Vilanterol (Breo Ellipta 100-25 Mcg Inh) 1 puff INH RQD [facility] Last Admin: 07/15/18 12:15 Dose: 1 puff Glucagon (Glucagen Diagnostic Kit) 0 mg IM STAT PRN; Protocol PRN Reason: Hypoglycemia Protocol Dextrose (Dextrose 5% In Water 1000 Ml) 1,000 mls @ 0 mls/hr IV .Q0M PRN; Protocol PRN Reason: Hypoglycemia Protocol Insulin Human Regular (Novolin R) 0 unit SC ACHS [facility]; Protocol Last Admin: 07/15/18 21:07 Dose: Not Given Levothyroxine Sodium (Synthroid) 100 mcg PO DAILY@0630 [facility] Last Admin: 07/16/18 05:45 Dose: 100 mcg Metoprolol Tartrate (Lopressor) 50 mg PO DAILY [facility] Last Admin: 07/15/18 11:00 Dose: 50 mg Rosuvastatin Calcium (Crestor) 20 mg PO HS [facility] Last Admin: 07/15/18 21:24 Dose: 20 mg - Labs Labs: 07/15/18 09:17 07/15/18 09:17 - Constitutional Appears: Non-toxic, No Acute Distress - Head Exam Head Exam: ATRAUMATIC, NORMOCEPHALIC - Eye Exam Eye Exam: EOMI, PERRL - ENT Exam ENT Exam: Mucous Membranes Moist - Neck Exam Neck Exam: Full ROM. absent: Tenderness - Respiratory Exam Respiratory Exam: Decreased Breath Sounds (left upper and lower lobes ). absent: Rales, Rhonchi, Wheezes, Respiratory Distress, Stridor Additional comments: right chest permacath - Cardiovascular Exam Cardiovascular Exam: REGULAR RHYTHM, +S1, +S2. absent: Gallop, Rubs, Murmur - GI/Abdominal Exam GI & Abdominal Exam: Soft, Normal Bowel Sounds. absent: Distended, Firm, Guarding, Rigid, Tenderness - Extremities Exam Extremities Exam: absent: Calf Tenderness, Pedal Edema - Back Exam Back Exam: absent: CVA tenderness (L), CVA tenderness (R) - Neurological Exam Neurological Exam: Alert, Awake, Oriented x3 - Psychiatric Exam Psychiatric exam: Normal Affect, Normal Mood Assessment and Plan - Assessment and Plan (Free Text) Assessment: 83 year old female with CHF, COPD, ESRD on HD, and multiple additional medical conditions/comorbidities presents with acutely worsening shortness of breath, found to lave large left-sided pleural effusion on chest XR. Status post thor acentesis 07/13/18. Plan: Large Left Pleural Effusion Status post thoracentesis -s/p thoracentesis 07/13/18 -1000cc bloody fluid removed no fluid studies at this time -Initial plan for repeat thoracentesis today 07/16/18, however platelet 59 1 unit platelet transfused, f/u platelets tomorrow . -CXR 07/15: subtotal opacification of left hemithorax most consistent with some combination of large effusion associated with atelectasis and/or infiltrate. R esidual mild atelectasis right lung base. HF with preserved EF Exacerbation [place] [address] (compared to 06/23/18 @ 13077 ) -Echo 03/04- EF 60-65% -HD TTS -Dr Langston - Nephro consult - recs appreciated -Metoprolol 50 mg BID ESRD on HD T--S -via R permacath -for Dialysis today -Dr. Langston consulted, help appreciated -Phoslo 667mg po TIDCC -Procrit 10,000u TTS Chest Tightness, improved -Likely 2/2 shortness of breath/pleural effusion -JAIME x 3 negative -EKGs x 3 unremarkable Hx Thrombocytopenia/ Hx Myelodysplastic Syndrome improved -platelets 59 -Platepheresis 1 unit, follow up repeat platelet in AM -possible thoracentesis tomorrow COPD -NC PRN -Breo Ellipta 100/25mg po inh daily -Duonebs q6h PRN Hx PVD with b/l Leg Stents -Tricor 48mg po daily -Crestor 20mg po HS DMII -Januvia 25mg po daily discontinued as patient not longer taking -RISS- low dose achs -hypoglycemia protocol -HgA1C 6.4 on 06/23 HTN -Norvasc 10mg po daily -Metoprolol 50 mg PO BID (increase from Metoprolol 50mg once daily) HLD -Crestor 20mg po HS 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) -continue to monitor Hypothyroidism -Synthroid 100mcg po daily Prophylaxis -SCDs Case discussed with Dr. Amy Seals, PGY1 <Reji Reyes H - Last Filed: 07/16/18 18:32> Objective - Vital Signs/Intake and Output Vital Signs (last 24 hours): Temp Pulse Resp BP Pulse Ox 98.4 F 80 20 174/70 H 99 07/16/18 15:01 07/16/18 15:01 07/16/18 15:01 07/16/18 15:01 07/16/18 15:01 - Medications Medications: Current Medications Acetaminophen (Tylenol 325mg Tab) 650 mg PO Q6 PRN PRN Reason: Pain, moderate (4-7) Albuterol/Ipratropium (Duoneb 3 Mg/0.5 Mg (3 Ml) Ud) 3 ml INH RQ4 PRN PRN Reason: Shortness of Breath Last Admin: 07/13/18 03:45 Dose: 3 ml Amlodipine Besylate (Norvasc) 10 mg PO DAILY [facility] Last Admin: 07/16/18 09:45 Dose: 10 mg Calcium Carbonate (Tums) 500 mg PO TID [facility] Last Admin: 07/16/18 17:34 Dose: 500 mg Dextrose (Dextrose 50% Inj) 0 ml IV STAT PRN; Protocol PRN Reason: Hypoglycemia Protocol Dextrose (Glutose 15) 0 gm PO ONCE PRN; Protocol PRN Reason: Hypoglycemia Protocol Epoetin Brandon (Procrit) 10,000 unit IV TTS [facility] Last Admin: 07/14/18 13:37 Dose: 10,000 unit Fluticasone/Vilanterol (Breo Ellipta 100-25 Mcg Inh) 1 puff INH RQD [facility] Last Admin: 07/16/18 08:00 Dose: 1 puff Glucagon (Glucagen Diagnostic Kit) 0 mg IM STAT PRN; Protocol PRN Reason: Hypoglycemia Protocol Dextrose (Dextrose 5% In Water 1000 Ml) 1,000 mls @ 0 mls/hr IV .Q0M PRN; Protocol PRN Reason: Hypoglycemia Protocol Insulin Human Regular (Novolin R) 0 unit SC ACHS [facility]; Protocol Last Admin: 07/16/18 12:12 Dose: 2 unit Levothyroxine Sodium (Synthroid) 100 mcg PO DAILY@0630 [facility] Last Admin: 07/16/18 05:45 Dose: 100 mcg Metoprolol Tartrate (Lopressor) 50 mg PO BID [facility] Last Admin: 07/16/18 17:35 Dose: 50 mg Rosuvastatin Calcium (Crestor) 20 mg PO HS [facility] Last Admin: 07/15/18 21:24 Dose: 20 mg - Labs Labs: 07/16/18 07:55 07/16/18 07:55 Attending/Attestation - Attestation I have personally seen and examined this patient.: Yes I have fully participated in the care of the patient.: Yes I have reviewed all pertinent clinical information, including history, physical exam and plan: Yes Notes (Text): 07/16/18 18:30 Medical attending: Patient was seen and examined by me with the medical residents The patient was not in any acute distress when we came and saw The plan was for a second thoracentesis today, however I was later notified that the platelet count was too low as she has a history of myelodysplastic disorder and so the second thoracenteis is on hold at the moment Will transfuse 2 units at this time Patient reports her breathing is currently much better than when she came in [facility]
[2018-07-16] MEDS: (Novolin R) Insulin Human Regular 100 units/ml vial SC SCH ×4 (07:52→21:22)
[2018-07-16] MEDS: Fluticasone-Vilanterol 100/25mcg Diskus INH SCH (08:00)
[2018-07-16 08:12] LABS: BASO # 0.1 K/uL (0.0-0.2); BASO % 0.3 % (0.0-2.0); EOS # 0.1 K/uL (0.0-0.7); EOS % 0.7 % (0.0-4.0); HEMOGLOBIN 8.6 g/dL (11.0-16.0); LYMPH % 15.2 % (20.0-40.0); MEAN CORPUSCULAR HEMOGLOBIN 33.2 pg (27.0-31.0); MEAN CORPUSCULAR HGB CONC 31.6 g/dL (33.0-37.0); MEAN PLATELET VOLUME 9.6 fL (7.2-11.7); MONO # 7.9 K/uL (0.0-0.8); NEUT # 8.6 K/uL (1.8-7.0); NEUT % 43.8 % (50.0-75.0); PLATELET COUNT 59 K/uL (130-400); RED CELL DISTRIBUTION WIDTH 19.4 % (11.5-14.5); WHITE BLOOD COUNT 19.7 K/uL (4.8-10.8)
[2018-07-16 08:27] LABS: ALB/GLOB RATIO 0.8 (1.0-2.1); ALBUMIN 3.2 g/dL (3.5-5.0); CALCIUM 8.4 mg/dl (8.6-10.4)
[2018-07-16] MEDS: Calcium Carbonate 500 mg Chewable Antacid Tab PO SCH ×3 (09:45→17:34)
[2018-07-16 10:57] LABS: LYMPHOCYTE 17 % (20-40); METAMYELOCYTE 1 % (0-0); MONOCYTE 30 % (0-10); MYELOCYTE 2 % (0-0); NEUTROPHIL 47 % (50-75); REACTIVE LYMPHOCYTES 3 % (0-0); TOTAL CELLS COUNTED 100
[2018-07-16 11:02] LABS: PLATELET ESTIMATE DECREASED (NORMAL)
[2018-07-16 11:04] LABS: STOMATOCYTES MODERATE
[2018-07-16 11:05] LABS: ANISOCYTOSIS MODERATE
[2018-07-16 11:07] LABS: HYPOCHROMIC SLIGHT
--- NOTE | 2018-07-16 11:31 | CP.PCM.PN ---
Subjective - Date & Time of Evaluation Date of Evaluation: 07/16/18 Time of Evaluation: 11:28 - Subjective Subjective: alert feels less dyspneic CXR noted possible repeat thoracentesis being considered tolerates UF at dialysis BP elevated Objective - Vital Signs/Intake and Output Vital Signs (last 24 hours): Temp Pulse Resp BP Pulse Ox 98.4 F 88 20 149/66 97 07/16/18 08:00 07/16/18 09:44 07/16/18 09:44 07/16/18 09:44 07/16/18 09:44 - Medications Medications: Current Medications Acetaminophen (Tylenol 325mg Tab) 650 mg PO Q6 PRN PRN Reason: Pain, moderate (4-7) Albuterol/Ipratropium (Duoneb 3 Mg/0.5 Mg (3 Ml) Ud) 3 ml INH RQ4 PRN PRN Reason: Shortness of Breath Last Admin: 07/13/18 03:45 Dose: 3 ml Amlodipine Besylate (Norvasc) [address] [facility] Last Admin: 07/16/18 09:45 Dose: 10 mg Calcium Carbonate (Tums) [address] [facility] Last Admin: 07/16/18 09:45 Dose: 500 mg Dextrose (Dextrose 50% Inj) 0 ml IV STAT PRN; Protocol PRN Reason: Hypoglycemia Protocol Dextrose (Glutose 15) 0 gm PO ONCE PRN; Protocol PRN Reason: Hypoglycemia Protocol Epoetin Brandon (Procrit) 10,[address] [facility] Last Admin: 07/14/18 13:37 Dose: 10,000 unit Fluticasone/Vilanterol (Breo Ellipta 100-25 Mcg Inh) [address] [facility] Last Admin: 07/16/18 08:00 Dose: 1 puff Glucagon (Glucagen Diagnostic Kit) 0 mg IM STAT PRN; Protocol PRN Reason: Hypoglycemia Protocol Dextrose (Dextrose 5% In Water 1000 Ml) 1,000 mls @ 0 mls/hr IV .Q0M PRN; Protocol PRN Reason: Hypoglycemia Protocol Insulin Human Regular (Novolin R) [address] [facility]; Protocol Last Admin: 07/16/18 07:52 Dose: Not Given Levothyroxine Sodium (Synthroid) 100 mcg PO DAILY@0630 [facility] Last Admin: 07/16/18 05:45 Dose: 100 mcg Rosuvastatin Calcium (Crestor) [address] [facility] Last Admin: 07/15/18 21:24 Dose: 20 mg - Labs Labs: 07/16/18 07:55 07/16/18 07:55 - Constitutional Appears: No Acute Distress, Chronically Ill - Head Exam Head Exam: ATRAUMATIC, NORMAL INSPECTION - Eye Exam Eye Exam: EOMI, Normal appearance - Neck Exam Neck Exam: Normal Inspection. absent: Tenderness - Respiratory Exam Respiratory Exam: Decreased Breath Sounds, NORMAL BREATHING PATTERN - Cardiovascular Exam Cardiovascular Exam: REGULAR RHYTHM, +S1 - GI/Abdominal Exam GI & Abdominal Exam: Soft. absent: Tenderness - Extremities Exam Extremities Exam: Normal Inspection. absent: Tenderness - Neurological Exam Neurological Exam: Awake, CN II-XII Intact - Skin Skin Exam: Dry, Warm Assessment and Plan (1) Pulmonary fibrosis Status: Acute (2) Pleural effusion Status: Acute (3) CHF (congestive heart failure) Status: Acute (4) CMML (chronic myelomonocytic leukemia) Status: Acute (5) Pleural effusion Status: Acute (6) COPD (chronic obstructive pulmonary disease) Status: Chronic - Assessment and Plan (Free Text) Plan: increase UF goal - dialysis TTS increase BP meds
--- NOTE | 2018-07-16 12:52 | CARD ---
APPROVED REPORT Date of service: 07/13/2018 EKG Measurement Heart [id number] [place] [id number] <Conclusion> Normal sinus rhythm Moderate voltage criteria for LVH, may be normal variant Borderline ECG
--- NOTE | 2018-07-16 12:53 | CARD ---
APPROVED REPORT Date of service: 07/13/2018 EKG Measurement Heart [id number] CT [id number] <Conclusion> Normal sinus rhythm Normal ECG
--- NOTE | 2018-07-16 22:28 | CARD ---
APPROVED REPORT Date of service: 07/12/2018 EKG Measurement Heart [id number] [place] 122P-3 [id number] <Conclusion> Normal sinus rhythm Voltage criteria for left ventricular hypertrophy Nonspecific ST abnormality Abnormal ECG
--- NOTE | 2018-07-16 23:25 | CP.PCM.PN ---
Subjective - Date & Time of Evaluation Date of Evaluation: 07/16/18 Time of Evaluation: 15:05 - Subjective Subjective: Patient seen and examined at bedside. Denies chest pain and dyspnea Objective - Vital Signs/Intake and Output Vital Signs (last 24 hours): Temp Pulse Resp BP Pulse Ox 98 F 88 20 186/61 H 97 07/16/18 04:30 07/16/18 04:30 07/16/18 04:30 07/16/18 04:30 07/16/18 04:30 - Medications Medications: Current Medications Acetaminophen (Tylenol 325mg Tab) 650 mg PO Q6 PRN PRN Reason: Pain, moderate (4-7) Albuterol/Ipratropium (Duoneb 3 Mg/0.5 Mg (3 Ml) Ud) 3 ml INH RQ4 PRN PRN Reason: Shortness of Breath Last Admin: 07/13/18 03:45 Dose: 3 ml Amlodipine Besylate (Norvasc) 10 mg PO DAILY [facility] Last Admin: 07/15/18 11:00 Dose: 10 mg Calcium Carbonate (Tums) 500 mg PO TID [facility] Last Admin: 07/15/18 17:31 Dose: 500 mg Dextrose (Dextrose 50% Inj) 0 ml IV STAT PRN; Protocol PRN Reason: Hypoglycemia Protocol Dextrose (Glutose 15) 0 gm PO ONCE PRN; Protocol PRN Reason: Hypoglycemia Protocol Epoetin Brandon (Procrit) 10,000 unit IV TTS [facility] Last Admin: 07/14/18 13:37 Dose: 10,000 unit Fluticasone/Vilanterol (Breo Ellipta 100-25 Mcg Inh) 1 puff INH RQD [facility] Last Admin: 07/15/18 12:15 Dose: 1 puff Glucagon (Glucagen Diagnostic Kit) 0 mg IM STAT PRN; Protocol PRN Reason: Hypoglycemia Protocol Dextrose (Dextrose 5% In Water 1000 Ml) 1,000 mls @ 0 mls/hr IV .Q0M PRN; Protocol PRN Reason: Hypoglycemia Protocol Insulin Human Regular (Novolin R) 0 unit SC ACHS [facility]; Protocol Last Admin: 07/15/18 21:07 Dose: Not Given Levothyroxine Sodium (Synthroid) 100 mcg PO DAILY@0630 [facility] Last Admin: 07/16/18 05:45 Dose: 100 mcg Metoprolol Tartrate (Lopressor) 50 mg PO DAILY [facility] Last Admin: 07/15/18 11:00 Dose: 50 mg Rosuvastatin Calcium (Crestor) 20 mg PO HS [facility] Last Admin: 07/15/18 21:24 Dose: 20 mg - Labs Labs: 07/15/18 09:17 07/15/18 09:17 - Constitutional Appears: Non-toxic, No Acute Distress - Head Exam Head Exam: ATRAUMATIC, NORMOCEPHALIC - Eye Exam Eye Exam: EOMI, PERRL - ENT Exam ENT Exam: Mucous Membranes Moist - Neck Exam Neck Exam: Full ROM. absent: Tenderness - Respiratory Exam Respiratory Exam: Decreased Breath Sounds (left upper and lower lobes ). absent: Rales, Rhonchi, Wheezes, Respiratory Distress, Stridor Additional comments: right chest permacath - Cardiovascular Exam Cardiovascular Exam: REGULAR RHYTHM, +S1, +S2. absent: Gallop, Rubs, Murmur - GI/Abdominal Exam GI & Abdominal Exam: Soft, Normal Bowel Sounds. absent: Distended, Firm, Guarding, Rigid, Tenderness - Extremities Exam Extremities Exam: absent: Calf Tenderness, Pedal Edema - Back Exam Back Exam: absent: CVA tenderness (L), CVA tenderness (R) - Neurological Exam Neurological Exam: Alert, Awake, Oriented x3 - Psychiatric Exam Psychiatric exam: Normal Affect, Normal Mood Assessment and Plan - Assessment and Plan (Free Text) Assessment: 83 year old female with CHF, COPD, ESRD on HD, and multiple additional medical conditions/comorbidities presents with acutely worsening shortness of breath, found to lave large left-sided pleural effusion on chest XR. Status post thoracentesis 07/13/18. Plan: Large Left Pleural Effusion Status post thoracentesis -s/p thoracentesis 07/13/18 -1000cc bloody fluid removed no fluid studies at this time -Initial plan for repeat thoracentesis today 07/16/18, however platelet 59 1 unit platelet transfused, f/u platelets tomorrow . -CXR 07/15: subtotal opacification of left hemithorax most consistent with some combination of large effusion associated with atelectasis and/or infiltrate. Residual mild atelectasis right lung base. HF with preserved EF [place]acerbation [place] [address] (compared to 06/23/18 @ 26694 ) -Echo 03/04- EF 60-65% -HD TTS -Dr Langston - Nephro consult - recs appreciated -Metoprolol 50 mg BID ESRD on HD T--S -via R permacath -for Dialysis today -Dr. Langston consulted, help appreciated -Phoslo 667mg po TIDCC -Procrit 10,000u TTS Chest Tightness, improved -Likely 2/2 shortness of breath/pleural effusion -JAIME x 3 negative -EKGs x 3 unremarkable Hx Thrombocytopenia/ Hx Myelodysplastic Syndrome improved -platelets 59 -Platepheresis 1 unit, follow up repeat platelet in AM -possible thoracentesis tomorrow COPD -NC PRN -Breo Ellipta 100/25mg po inh daily -Duonebs q6h PRN Hx PVD with b/l Leg Stents -Tricor 48mg po daily -Crestor 20mg po HS DMII -Januvia 25mg po daily discontinued as patient not longer taking -RISS- low dose achs -hypoglycemia protocol -HgA1C 6.4 on 06/23 HTN -Norvasc 10mg po daily -Metoprolol 50 mg PO BID (increase from Metoprolol 50mg once daily) HLD -Crestor 20mg po HS 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) -continue to monitor Hypothyroidism -Synthroid 100mcg po daily Prophylaxis -SCDs Objective - Vital Signs/Intake and Output Vital Signs (last 24 hours): Temp Pulse Resp BP Pulse Ox 98.4 F 81 18 168/64 H 99 07/16/18 22:55 07/16/18 22:55 07/16/18 22:55 07/16/18 22:55 07/16/18 15:01 Intake and Output: 07/16/18 07/17/18 18:59 06:59 Intake Total 201 Balance 201 - Medications Medications: Current Medications Acetaminophen (Tylenol 325mg Tab) 650 mg PO Q6 PRN PRN Reason: Pain, moderate (4-7) Albuterol/Ipratropium (Duoneb 3 Mg/0.5 Mg (3 Ml) Ud) 3 ml INH RQ4 PRN PRN Reason: Shortness of Breath Last Admin: 07/13/18 03:45 Dose: 3 ml Amlodipine Besylate (Norvasc) 10 mg PO DAILY [facility] Last Admin: 07/16/18 09:45 Dose: 10 mg Calcium Carbonate (Tums) 500 mg PO TID [facility] Last Admin: 07/16/18 17:34 Dose: 500 mg Dextrose (Dextrose 50% Inj) 0 ml IV STAT PRN; Protocol PRN Reason: Hypoglycemia Protocol Dextrose (Glutose 15) 0 gm PO ONCE PRN; Protocol PRN Reason: Hypoglycemia Protocol Epoetin Brandon (Procrit) 10,000 unit IV TTS [facility] Last Admin: 07/14/18 13:37 Dose: 10,000 unit Fluticasone/Vilanterol (Breo Ellipta 100-25 Mcg Inh) 1 puff INH RQD [facility] Last Admin: 07/16/18 08:00 Dose: 1 puff Glucagon (Glucagen Diagnostic Kit) 0 mg IM STAT PRN; Protocol PRN Reason: Hypoglycemia Protocol Dextrose (Dextrose 5% In Water 1000 Ml) 1,000 mls @ 0 mls/hr IV .Q0M PRN; Protocol PRN Reason: Hypoglycemia Protocol Insulin Human Regular (Novolin R) 0 unit SC ACHS [facility]; Protocol Last Admin: 07/16/18 21:22 Dose: Not Given Levothyroxine Sodium (Synthroid) 100 mcg PO DAILY@0630 [facility] Last Admin: 07/16/18 05:45 Dose: 100 mcg Metoprolol Tartrate (Lopressor) 50 mg PO BID [facility] Last Admin: 07/16/18 17:35 Dose: 50 mg Rosuvastatin Calcium (Crestor) 20 mg PO HS [facility] Last Admin: 07/16/18 21:22 Dose: 20 mg - Labs Labs: 07/16/18 07:55 07/16/18 07:55
[2018-07-17] MEDS: Levothyroxine 100 MCG TAB PO SCH (05:51)
--- NOTE | 2018-07-17 07:21 | CP.PCM.PN ---
<Barry Barone - Last Filed: 07/17/18 21:17> Subjective - Date & Time of Evaluation Date of Evaluation: 07/17/18 Time of Evaluation: 08:00 - Subjective Subjective: PGY-[address] Reji Reyes service Patient is seen and examined sitting in chair this morning. Patient admits to feeling better, denies chest pain, shortness of breath, fever, chills, palpitation, nausea, vomiting, diarrhea or constipation, or urinary symptoms. Patient is out of bed and ambulating. Patient scheduled for IR thoracentesis with Dr Longoria. Objective - Vital Signs/Intake and Output Vital Signs (last 24 hours): Temp Pulse Resp BP Pulse Ox 97.8 F 67 20 136/67 96 07/17/18 04:29 07/17/18 04:40 07/17/18 04:29 07/17/18 04:40 07/17/18 04:29 Intake and Output: 07/17/18 07/17/18 06:59 18:59 Intake Total 251 Balance 251 - Medications Medications: Current Medications Acetaminophen (Tylenol 325mg Tab) 650 mg PO Q6 PRN PRN Reason: Pain, moderate (4-7) Albuterol/Ipratropium (Duoneb 3 Mg/0.5 Mg (3 Ml) Ud) 3 ml INH RQ4 PRN PRN Reason: Shortness of Breath Last Admin: 07/13/18 03:45 Dose: 3 ml Amlodipine Besylate (Norvasc) 10 mg PO DAILY [facility] Last Admin: 07/16/18 09:45 Dose: 10 mg Calcium Carbonate (Tums) 500 mg PO TID [facility] Last Admin: 07/16/18 17:34 Dose: 500 mg Dextrose (Dextrose 50% Inj) 0 ml IV STAT PRN; Protocol PRN Reason: Hypoglycemia Protocol Dextrose (Glutose 15) 0 gm PO ONCE PRN; Protocol PRN Reason: Hypoglycemia Protocol Epoetin Brandon (Procrit) 10,000 unit IV TTS [facility] Last Admin: 07/14/18 13:37 Dose: 10,000 unit Fluticasone/Vilanterol (Breo Ellipta 100-25 Mcg Inh) 1 puff INH RQD [facility] Last Admin: 07/16/18 08:00 Dose: 1 puff Glucagon (Glucagen Diagnostic Kit) 0 mg IM STAT PRN; Protocol PRN Reason: Hypoglycemia Protocol Dextrose (Dextrose 5% In Water 1000 Ml) 1,000 mls @ 0 mls/hr IV .Q0M PRN; Protocol PRN Reason: Hypoglycemia Protocol Insulin Human Regular (Novolin R) 0 unit SC ACHS [facility]; Protocol Last Admin: 07/16/18 21:22 Dose: Not Given Levothyroxine Sodium (Synthroid) 100 mcg PO DAILY@0630 [facility] Last Admin: 07/17/18 05:51 Dose: 100 mcg Metoprolol Tartrate (Lopressor) 50 mg PO BID [facility] Last Admin: 07/16/18 17:35 Dose: 50 mg Rosuvastatin Calcium (Crestor) 20 mg PO HS [facility] Last Admin: 07/16/18 21:22 Dose: 20 mg - Labs Labs: 07/16/18 07:55 07/16/18 07:55 - Constitutional Appears: Non-toxic, No Acute Distress - Head Exam Head Exam: ATRAUMATIC, NORMAL INSPECTION, NORMOCEPHALIC - Eye Exam Eye Exam: EOMI, Normal appearance - ENT Exam ENT Exam: Mucous Membranes Moist, Normal Exam - Neck Exam Neck Exam: Normal Inspection - Respiratory Exam Respiratory Exam: Clear to Ausculation Bilateral, NORMAL BREATHING PATTERN. absent: Rales, Rhonchi, Wheezes Additional comments: right chest permacath - Cardiovascular Exam Cardiovascular Exam: REGULAR RHYTHM, +S1, +S2 - GI/Abdominal Exam GI & Abdominal Exam: Soft, Normal Bowel Sounds. absent: Distended, Tenderness - Extremities Exam Extremities Exam: Full ROM, Normal Capillary Refill - Back Exam Back Exam: NORMAL INSPECTION - Neurological Exam Neurological Exam: Alert, Awake, Oriented x3 - Psychiatric Exam Psychiatric exam: Normal Affect, Normal Mood - Skin Skin Exam: Dry, Intact, Normal Color, Warm Assessment and Plan - Assessment and Plan (Free Text) Assessment: 83 year old female with CHF, COPD, ESRD on HD, and multiple additional medical c onditions/comorbidities presents with acutely worsening shortness of breath, found to lave large left-sided pleural effusion on chest XR. thoracentesis done 07/13/18 and 07/17/2018. Plan: Large Left Pleural Effusion Status post thoracentesis -s/p thoracentesis 07/13/18 -1000cc bloody fluid removed -CXR 07/15: subtotal opacification of left hemithorax most consistent with some c ombination of large effusion associated with atelectasis and/or infiltrate. Residual mild atelectasis right lung base. Blood cultures negative x 4 days -Initial plan for repeat thoracentesis 07/16/18, however platelet 59 1 unit platelet transfused 07/16 - Platelets improved from 59 to 109 this am 07/17 - Patient scheduled for thoracentesis this am with IR - Dr Longoria - 150 cc of slight serosanguinous fluid - US showed complex, septated left pleural collection - possibility of decortication surgery - Patient refuses surgical procedure - will follow up with family - will follow IR recs - pleural fluid culture pending results - f/u HF with preserved EF [place]ation [place] [address] (compared to 06/23/18 @ 27356 ) -Echo 03/04- EF 60-65% -HD TTS -Dr Langston - Nephro consult - recs appreciated -Metoprolol 50 mg BID ESRD on HD T--S -via R permacath -for Dialysis today -Dr. Langston consulted, help appreciated -Phoslo 667mg po TIDCC -Procrit 10,000u TTS Chest Tightness, improved -Likely 2/2 shortness of breath/pleural effusion -JAIME x 3 negative -EKGs x 3 unremarkable Hx Thrombocytopenia/ Hx Myelodysplastic Syndrome improved -platelets improved to 109 -Platepheresis 1 unit 09/15 -continue to monitor platelet levels COPD -NC PRN -Breo Ellipta 100/25mg po inh daily -Duonebs q6h PRN Hx PVD with b/l Leg Stents -Tricor 48mg po daily -Crestor 20mg po HS DMII -Januvia 25mg po daily discontinued as patient not longer taking -RISS- low dose achs -hypoglycemia protocol -HgA1C 6.4 on 06/23 HTN -Norvasc 10mg po daily -Metoprolol 50 mg PO BID (increase from Metoprolol 50mg once daily) HLD -Crestor 10mg po HS - renal dose adjusted 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 Will Follow up with daughters regarding goals of care for patient. Plan discussed with Dr Reji Barone, PGY-1 <Reji Reyes H - Last Filed: 07/18/18 07:49> Objective - Vital Signs/Intake and Output Vital Signs (last 24 hours): Temp Pulse Resp BP Pulse Ox 98.2 F 82 20 156/66 H 100 07/18/18 04:46 07/18/18 04:46 07/18/18 04:46 07/18/18 04:46 07/18/18 04:46 Intake and Output: 07/18/18 07/18/18 06:59 18:59 Intake Total 360 Balance 360 - Medications Medications: Current Medications Acetaminophen (Tylenol 325mg Tab) 650 mg PO Q6 PRN PRN Reason: Pain, moderate (4-7) Albuterol/Ipratropium (Duoneb 3 Mg/0.5 Mg (3 Ml) Ud) 3 ml INH RQ4 PRN PRN Reason: Shortness of Breath Last Admin: 07/18/18 03:52 Dose: 3 ml Amlodipine Besylate (Norvasc) 10 mg PO DAILY [facility] Last Admin: 07/17/18 09:39 Dose: 10 mg Calcium Carbonate (Tums) 500 mg PO TID [facility] Last Admin: 07/17/18 19:36 Dose: 500 mg Dextrose (Dextrose 50% Inj) 0 ml IV STAT PRN; Protocol PRN Reason: Hypoglycemia Protocol Dextrose (Glutose 15) 0 gm PO ONCE PRN; Protocol PRN Reason: Hypoglycemia Protocol Epoetin Brandon (Procrit) 10,000 unit IV TTS [facility] Last Admin: 07/17/18 17:19 Dose: 10,000 unit Fluticasone/Vilanterol (Breo Ellipta 100-25 Mcg Inh) 1 puff INH RQD [facility] Last Admin: 07/17/18 08:08 Dose: 1 puff Glucagon (Glucagen Diagnostic Kit) 0 mg IM STAT PRN; Protocol PRN Reason: Hypoglycemia Protocol Dextrose (Dextrose 5% In Water 1000 Ml) 1,000 mls @ 0 mls/hr IV .Q0M PRN; Protocol PRN Reason: Hypoglycemia Protocol Insulin Human Regular (Novolin R) 0 unit SC ACHS [facility]; Protocol Last Admin: 07/17/18 22:37 Dose: Not Given Levothyroxine Sodium (Synthroid) 100 mcg PO DAILY@0630 [facility] Last Admin: 07/18/18 06:15 Dose: 100 mcg Metoprolol Tartrate (Lopressor) 50 mg PO BID [facility] Last Admin: 07/17/18 19:36 Dose: 50 mg Rosuvastatin Calcium (Crestor) 10 mg PO HS [facility] Last Admin: 07/17/18 21:08 Dose: 10 mg - Labs Labs: 07/17/18 07:04 07/17/18 07:04 Attending/Attestation - Attestation I have personally seen and examined this patient.: Yes I have fully participated in the care of the patient.: Yes I have reviewed all pertinent clinical information, including history, physical exam and plan: Yes Notes (Text): 07/18/18 07:46 Medical attending: Patient was seen and examined by me. Agree with the above note by the resident The patient was not in any acute distress She went for the second thoracentesis however only 150 cc was removed and it was suggested by IR that the patient consider decortication since the fluid was loculated and in areas difficut to reach The patient when we explained this to her, explained she did not want to undergo further procedures I also explained this to the patient's family member over the phone as well The family explained they would try to come after 5 pm however I was not able to meet them in person yesterday afternoon however I did speak with daughter over the phone for qite some time Reji Reyes
[2018-07-17] MEDS: (Novolin R) Insulin Human Regular 100 units/ml vial SC SCH ×4 (07:22→22:37)
[2018-07-17 07:26] LABS: BASO % 0.1 % (0.0-2.0); EOS # 0.1 K/uL (0.0-0.7); EOS % 0.4 % (0.0-4.0); HEMOGLOBIN 8.4 g/dL (11.0-16.0); LYMPH # 3.5 K/uL (1.0-4.3); LYMPH % 15.7 % (20.0-40.0); MEAN CELL VOLUME 106.5 fL (81.0-99.0); MEAN PLATELET VOLUME 8.7 fL (7.2-11.7); MONO # 8.5 K/uL (0.0-0.8); MONO % 38.4 % (0.0-10.0); NEUT # 10.1 K/uL (1.8-7.0); NEUT % 45.4 % (50.0-75.0); RBC 2.56 Mil/uL (3.80-5.20); WHITE BLOOD COUNT 22.2 K/uL (4.8-10.8)
[2018-07-17 07:29] LABS: PLATELET COUNT 109 K/uL (130-400)
[2018-07-17 07:49] LABS: ALB/GLOB RATIO 0.8 (1.0-2.1); ALBUMIN 3.2 g/dL (3.5-5.0); CALCIUM 8.6 mg/dl (8.6-10.4)
[2018-07-17] MEDS: Fluticasone-Vilanterol 100/25mcg Diskus INH SCH (08:08)
[2018-07-17] MEDS ORDERED: Lidocaine Hydrochloride 5 ML INJ ONE (09:21)
--- NOTE | 2018-07-17 09:28 | PCM.SURG1 ---
Surgeon's Initial Post Op Note - Surgeon's Notes Surgeon: Bon Longoria MD Shell Freezing Machine Operator: NONE Type of Anesthesia: Local Pre-Operative Diagnosis: Left pleural effusion Operative Findings: US showed complex, septated left pleural collection. Post-Operative Diagnosis: Left pleural effusion Operation Performed: US guided thoracentesis. Specimen/Specimens Removed: 150 cc of slight serosanguinous fluid Estimated Blood Loss: EBL {In ML}: 0 Blood Products Given: N/A Drains Used: No Drains Post-Op Condition: Fair Date of Surgery/Procedure: 07/17/18 Time of Surgery/Procedure: 09:25
[2018-07-17] MEDS: Calcium Carbonate 500 mg Chewable Antacid Tab PO SCH ×3 (09:39→19:36)
[2018-07-17 09:59] LABS: BODY FLUID TYPE PLEURAL
[2018-07-17 10:03] LABS: EOSINOPHIL 1 % (0-4); LYMPHOCYTE 13 % (20-40); MONOCYTE 32 % (0-10); NEUTROPHIL 54 % (50-75); PLATELET ESTIMATE SLIGHTLY DECREASED (NORMAL); TOTAL CELLS COUNTED 100
[2018-07-17 10:04] LABS: ANISOCYTOSIS MODERATE; LARGE PLATELETS PRESENT; STOMATOCYTES MODERATE
--- NOTE | 2018-07-17 10:29 | CP.PCM.PN ---
Subjective - Date & Time of Evaluation Date of Evaluation: 07/17/18 Time of Evaluation: 10:30 - Subjective Subjective: up in chair awake alert comfortable in chair ate entire breakfast states feels goog ROS no fever no sob or cough no chest pain no abd pain,n,v,d no dysuria no diziness or headache Objective - Vital Signs/Intake and Output Vital Signs (last 24 hours): Temp Pulse Resp BP Pulse Ox 98.3 F 88 20 150/56 L 98 07/17/18 07:00 07/17/18 09:40 07/17/18 09:40 07/17/18 09:40 07/17/18 09:40 Intake and Output: 07/17/18 07/17/18 06:59 18:59 Intake Total 251 Balance 251 - Medications Medications: Current Medications Acetaminophen (Tylenol 325mg Tab) 650 mg PO Q6 PRN PRN Reason: Pain, moderate (4-7) Albuterol/Ipratropium (Duoneb 3 Mg/0.5 Mg (3 Ml) Ud) 3 ml INH RQ4 PRN PRN Reason: Shortness of Breath Last Admin: 07/13/18 03:45 Dose: 3 ml Amlodipine Besylate (Norvasc) 10 mg PO DAILY [facility] Last Admin: 07/17/18 09:39 Dose: 10 mg Calcium Carbonate (Tums) 500 mg PO TID [facility] Last Admin: 07/17/18 09:39 Dose: 500 mg Dextrose (Dextrose 50% Inj) 0 ml IV STAT PRN; Protocol PRN Reason: Hypoglycemia Protocol Dextrose (Glutose 15) 0 gm PO ONCE PRN; Protocol PRN Reason: Hypoglycemia Protocol Epoetin Brandon (Procrit) 10,000 unit IV TTS [facility] Last Admin: 07/14/18 13:37 Dose: 10,000 unit Fluticasone/Vilanterol (Breo Ellipta 100-25 Mcg Inh) 1 puff INH RQD [facility] Last Admin: 07/17/18 08:08 Dose: 1 puff Glucagon (Glucagen Diagnostic Kit) 0 mg IM STAT PRN; Protocol PRN Reason: Hypoglycemia Protocol Dextrose (Dextrose 5% In Water 1000 Ml) 1,000 mls @ 0 mls/hr IV .Q0M PRN; Protocol PRN Reason: Hypoglycemia Protocol Insulin Human Regular (Novolin R) 0 unit SC ACHS [facility]; Protocol Last Admin: 07/17/18 07:22 Dose: Not Given Levothyroxine Sodium (Synthroid) 100 mcg PO DAILY@0630 [facility] Last Admin: 07/17/18 05:51 Dose: 100 mcg Metoprolol Tartrate (Lopressor) 50 mg PO BID [facility] Last Admin: 07/17/18 09:39 Dose: 50 mg Rosuvastatin Calcium (Crestor) 20 mg PO HS [facility] Last Admin: 07/16/18 21:22 Dose: 20 mg - Labs Labs: 07/17/18 07:04 07/17/18 07:04 - Constitutional Appears: No Acute Distress - Eye Exam Eye Exam: Normal appearance - ENT Exam ENT Exam: Mucous Membranes Moist - Respiratory Exam Respiratory Exam: Clear to Ausculation Bilateral Additional comments: diminished sounds at bases prolonged inspiration and expiration - Cardiovascular Exam Cardiovascular Exam: REGULAR RHYTHM. absent: JVD - GI/Abdominal Exam GI & Abdominal Exam: Soft. absent: Distended, Tenderness - Extremities Exam Extremities Exam: absent: Calf Tenderness - Back Exam Back Exam: absent: CVA tenderness (L), CVA tenderness (R) - Neurological Exam Neurological Exam: Alert, Awake - Psychiatric Exam Psychiatric exam: Normal Affect - Skin Skin Exam: Dry, Warm Assessment and Plan (1) Pleural effusion Status: Acute (2) CHF (congestive heart failure) Status: Acute (3) ESRD (end stage renal disease) Status: Acute (4) Type 2 diabetes mellitus with diabetic nephropathy Status: Acute - Assessment and Plan (Free Text) Plan: dialysis today with ultrafiltration
--- NOTE | 2018-07-17 12:12 | US ---
PROCEDURE: Date of procedure: 07/17/2018 Procedure: 1. Ultrasound-guided left thoracentesis, CPT 77819 Medications: 6cc 1% Lidocaine HISTORY: Left pleural effusion, shortness of breath TECHNIQUE: Following informed consent ,the Patients' left chest was marked. Procedure time-out was called, and the patient was placed in the sitting position and limited ultrasound showed a moderate effusion with septations. The patient's left back was prepped and draped in the usual sterile fashion. After the skin was anesthetized with lidocaine, a drainage catheter was advanced under ultrasound guidance into the pleural space. Ultrasound-guided thoracentesis was performed. A total of 150 cubic centimeters of straw-colored fluid removed without complication. A Xeroform dressing was applied. IMPRESSION: Ultrasound guided left thoracentesis. Pleural collection is complex with multiple septations. There were no immediate complications.
[2018-07-17 12:17] LABS: BF GROSS APPEARANCE BLOODY (CLEAR)
[2018-07-17 12:20] LABS: BODY FLUID TOTAL COUNT 100 (0-0)
[2018-07-17] MEDS: Epoetin Alfa 10,000 unit/ml Dialysis IV SCH (17:19)
--- NOTE | 2018-07-17 18:10 | CP.PCM.CON ---
History of Present Illness - History of Present Illness History of Present Illness: Vascular surgery - DR. Plummer 83yo F w/ hx of DM, HTN, HL, PVD, ESRD on HD TTS, COPD, Pulmonary Fibrosis, Hypothyroidism, CHF, Anemia, Pneumonia, Myelodysplastic syndrome, failed AVF Left arm. She was admitted to the hospital with worsening SOB on 07/12. She has since undergone thoracentesis drainage of pleural effusions. Pt currently seen and examined in dialysis. She denies any complaints at this time and states her breathing is improved. Vascular surgery was consulted for poorly functioning dialysis catheter. Per dialysis nurse at bedside the catheter has been very sluggish. Review of Systems - Review of Systems All systems: reviewed and no additional remarkable complaints except Past Patient History - Infectious Disease Hx of Infectious Diseases: None - Tetanus Immunizations Tetanus Immunization: Unknown - Past Medical History & Family History Past Medical History?: Yes Past Family History: Reviewed and not pertinent - Past Social History Smoking Status: Never Smoked Chewing Tobacco Use: No Cigar Use: No Alcohol: None Drugs: Denies Home Situation {Lives}: With Family - CARDIAC Hx Congestive Heart Failure: Yes - PULMONARY Hx Asthma: Yes Hx Chronic Obstructive Pulmonary Disease (COPD): Yes Hx Pneumonia: Yes - NEUROLOGICAL Hx Neurological Disorder: No - HEENT Hx HEENT Problems: Yes Hx Cataracts: Yes Other/Comment: Corneal replacement both eyes - RENAL Hx Chronic Kidney Disease: Yes Hx Kidney Stones: Yes - ENDOCRINE/METABOLIC Hx Hypothyroidism: Yes - HEMATOLOGICAL/ONCOLOGICAL Hx Anemia: Yes - INTEGUMENTARY Hx Dermatological Problems: No - MUSCULOSKELETAL/RHEUMATOLOGICAL Hx Arthritis: Yes Hx Osteoporosis: Yes - GASTROINTESTINAL Hx Gastritis: Yes - GENITOURINARY/GYNECOLOGICAL Hx Genitourinary Disorders: No - PSYCHIATRIC Hx Substance Use: No - SURGICAL HISTORY Hx Surgeries: Yes Hx Cataract Extraction: Yes Other/Comment: Vascular stents. Bone marrow aspiration. Corneal transplant. Permacath Insertion - ANESTHESIA Hx Anesthesia: Yes Hx Anesthesia Reactions: No Hx Malignant Hyperthermia: No Meds Allergies/Adverse Reactions: Allergies Allergy/AdvReac Type Severity Reaction Status Date / Time No Known Allergies Allergy Verified 07/12/18 15:59 - Medications Medications: Current Medications Acetaminophen (Tylenol 325mg Tab) 650 mg PO Q6 PRN PRN Reason: Pain, moderate (4-7) Albuterol/Ipratropium (Duoneb 3 Mg/0.5 Mg (3 Ml) Ud) 3 ml INH RQ4 PRN PRN Reason: Shortness of Breath Last Admin: 07/13/18 03:45 Dose: 3 ml Amlodipine Besylate (Norvasc) 10 mg PO DAILY [facility] Last Admin: 07/17/18 09:39 Dose: 10 mg Calcium Carbonate (Tums) 500 mg PO TID [facility] Last Admin: 07/17/18 14:19 Dose: Not Given Dextrose (Dextrose 50% Inj) 0 ml IV STAT PRN; Protocol PRN Reason: Hypoglycemia Protocol Dextrose (Glutose 15) 0 gm PO ONCE PRN; Protocol PRN Reason: Hypoglycemia Protocol Epoetin Brandon (Procrit) 10,000 unit IV TTS [facility] Last Admin: 07/17/18 17:19 Dose: 10,000 unit Fluticasone/Vilanterol (Breo Ellipta 100-25 Mcg Inh) 1 puff INH RQD [facility] Last Admin: 07/17/18 08:08 Dose: 1 puff Glucagon (Glucagen Diagnostic Kit) 0 mg IM STAT PRN; Protocol PRN Reason: Hypoglycemia Protocol Dextrose (Dextrose 5% In Water 1000 Ml) 1,000 mls @ 0 mls/hr IV .Q0M PRN; Protocol PRN Reason: Hypoglycemia Protocol Insulin Human Regular (Novolin R) 0 unit SC ACHS [facility]; Protocol Last Admin: 07/17/18 12:25 Dose: 2 unit Levothyroxine Sodium (Synthroid) 100 mcg PO DAILY@0630 [facility] Last Admin: 07/17/18 05:51 Dose: 100 mcg Metoprolol Tartrate (Lopressor) 50 mg PO BID [facility] Last Admin: 07/17/18 09:39 Dose: 50 mg Rosuvastatin Calcium (Crestor) 10 mg PO HS [facility] Physical Exam - Constitutional Appears: No Acute Distress - Head Exam Head Exam: ATRAUMATIC, NORMAL INSPECTION, NORMOCEPHALIC - Eye Exam Eye Exam: Normal appearance - Respiratory Exam Respiratory Exam: NORMAL BREATHING PATTERN. absent: Respiratory Distress - Cardiovascular Exam Cardiovascular Exam: REGULAR RHYTHM - Neurological Exam Neurological exam: Alert, Oriented x3 - Psychiatric Exam Psychiatric exam: Normal Affect, Normal Mood - Skin Skin Exam: Dry, Intact Results - Vital Signs Recent Vital Signs: Last Vital Signs Temp 97.2 F L 07/17/18 15:00 Pulse 80 07/17/18 14:25 Resp 18 07/17/18 16:00 BP 154/71 H 07/17/18 16:00 Pulse Ox 98 07/17/18 16:00 - Labs Result Diagrams: 07/17/18 07:04 07/17/18 07:04 Labs: Laboratory Results - last 24 hr 07/16/18 07/17/18 07/17/18 20:52 07:04 07:04 WBC 22.2 H RBC 2.56 L Hgb 8.4 L Hct 27.2 L MCV 106.5 H MCH 33.0 H MCHC 31.0 L RDW 19.0 H Plt Count 109 L D MPV 8.7 Neut % (Auto) 45.4 L Lymph % (Auto) 15.7 L [place] % (Auto) 38.4 H Eos % (Auto) 0.4 Baso % (Auto) 0.1 Neut # (Auto) 10.1 H Lymph # (Auto) 3.5 [place] # (Auto) 8.5 H Eos # (Auto) 0.1 Baso # (Auto) 0.0 Neutrophils % (Manual) 54 Lymphocytes % (Manual) 13 L Monocytes % (Manual) 32 H Eosinophils % (Manual) 1 Platelet Estimate Slightly decreased L Large Platelets Present Anisocytosis (manual) Moderate Stomatocytes Moderate Sodium 135 Potassium 4.4 Chloride 97 L Carbon Dioxide 31 H Anion Gap 12 BUN 42 H Creatinine 4.6 H Est GFR ( Amer) 11 Est GFR (Non-Af Amer) 9 POC Glucose (mg/dL) 266 H Random Glucose 128 H Calcium 8.6 Phosphorus 4.5 Magnesium 2.0 Total Bilirubin 0.6 AST 28 ALT 12 Alkaline Phosphatase 53 Total Protein 7.2 Albumin 3.2 L Globulin 4.0 H Albumin/Globulin Ratio 0.8 L Fluid Source Fluid Appearance Fluid WBC Fluid RBC Fluid Tot Cell Count Fluid Neutrophils Fluid Lymphocytes Fld Monocyte/Macrophag Fluid Comment 07/17/18 07/17/18 09:56 15:34 WBC RBC Hgb Hct MCV MCH MCHC RDW Plt Count MPV Neut % (Auto) Lymph % (Auto) [place] % (Auto) Eos % (Auto) Baso % (Auto) Neut # (Auto) Lymph # (Auto) [place] # (Auto) Eos # (Auto) Baso # (Auto) Neutrophils % (Manual) Lymphocytes % (Manual) Monocytes % (Manual) Eosinophils % (Manual) Platelet Estimate Large Platelets Anisocytosis (manual) Stomatocytes Sodium Potassium Chloride Carbon Dioxide Anion Gap BUN Creatinine Est GFR ( Amer) Est GFR (Non-Af Amer) POC Glucose (mg/dL) 249 H Random Glucose Calcium Phosphorus Magnesium Total Bilirubin AST ALT Alkaline Phosphatase Total Protein Albumin Globulin Albumin/Globulin Ratio Fluid Source Pleural Fluid Appearance Bloody Fluid WBC 1769.0 H Fluid RBC 44727.0 H Fluid Tot Cell Count 100 H Fluid Neutrophils 11.0 H Fluid Lymphocytes 89.0 H Fld Monocyte/Macrophag Fluid Comment TEST NOT PERFORMED Assessment & Plan - Assessment and Plan (Free Text) Assessment: 83 yo F w/ ESRD on HD TTS with slow functioning Permacath -Recc. TPA dwelling in catheter until next dialysis session -F/U function of catheter at next session to confirm improved flow -No surgeical intervention needed at this time DW Dr Plummer
--- NOTE | 2018-07-17 23:48 | CP.PCM.PN ---
Subjective - Date & Time of Evaluation Date of Evaluation: 07/17/18 Time of Evaluation: 08:10 - Subjective Subjective: Patient seen and examined at bedside. Still has dyspnea For thoracentasis today Physical Examination - Constitutional Appears: Non-toxic, No Acute Distress - Head Exam Head Exam: ATRAUMATIC, NORMOCEPHALIC - Eye Exam Eye Exam: EOMI, PERRL - ENT Exam ENT Exam: Mucous Membranes Moist - Neck Exam Neck Exam: Full ROM. absent: Tenderness - Respiratory Exam Respiratory Exam: Decreased Breath Sounds (left upper and lower lobes ). absent: Rales, Rhonchi, Wheezes, Respiratory Distress, Stridor Additional comments: right chest permacath - Cardiovascular Exam Cardiovascular Exam: REGULAR RHYTHM, +S1, +S2. absent: Gallop, Rubs, Murmur - GI/Abdominal Exam GI & Abdominal Exam: Soft, Normal Bowel Sounds. absent: Distended, Firm, Guarding, Rigid, Tenderness - Extremities Exam Extremities Exam: absent: Calf Tenderness, Pedal Edema - Back Exam Back Exam: absent: CVA tenderness (L), CVA tenderness (R) - Neurological Exam Neurological Exam: Alert, Awake, Oriented x3 - Psychiatric Exam Psychiatric exam: Normal Affect, Normal Mood Assessment and Plan - Assessment and Plan (Free Text) Assessment: 83 year old female with CHF, COPD, ESRD on HD, and multiple additional medical conditions/comorbidities presents with acutely worsening shortness of breath, found to lave large left-sided pleural effusion on chest XR. Status post thoracentesis 07/13/18. Plan: Large Left Pleural Effusion Status post thoracentesis. For repeat thoracentasis today -s/p thoracentesis 07/13/18 -1000cc bloody fluid removed no fluid studies at this time -Initial plan for repeat thoracentesis today 07/16/18, however platelet 59 1 unit platelet transfused, f/u platelets tomorrow . -CXR 07/15: subtotal opacification of left hemithorax most consistent with some combination of large effusion associated with atelectasis and/or infiltrate. Residual mild atelectasis right lung base. HF with preserved EF [place]acerbation [place] [address] (compared to 06/23/18 @ 99337 ) -Echo 03/04- EF 60-65% -HD TTS -Dr Langston - Nephro consult - recs appreciated -Metoprolol 50 mg BID ESRD on HD T--S -via R permacath -for Dialysis today -Dr. Langston consulted, help appreciated -Phoslo 667mg po TIDCC -Procrit 10,000u TTS Chest Tightness, improved -Likely 2/2 shortness of breath/pleural effusion -JAIME x 3 negative -EKGs x 3 unremarkable Hx Thrombocytopenia/ Hx Myelodysplastic Syndrome improved -platelets 59 -Platepheresis 1 unit, follow up repeat platelet in AM -possible thoracentesis tomorrow COPD -NC PRN -Breo Ellipta 100/25mg po inh daily -Duonebs q6h PRN Hx PVD with b/l Leg Stents -Tricor 48mg po daily -Crestor 20mg po HS DMII -Januvia 25mg po daily discontinued as patient not longer taking -RISS- low dose achs -hypoglycemia protocol -HgA1C 6.4 on 06/23 HTN -Norvasc 10mg po daily -Metoprolol 50 mg PO BID (increase from Metoprolol 50mg once daily) HLD -Crestor 20mg po HS 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) -continue to monitor Hypothyroidism -Synthroid 100mcg po daily Prophylaxis -SCDs Objective - Vital Signs/Intake and Output Vital Signs (last 24 hours): Temp Pulse Resp BP Pulse Ox 98.3 F 90 20 125/54 L 100 07/17/18 18:37 07/17/18 19:37 07/17/18 18:37 07/17/18 19:37 07/17/18 18:37 Intake and Output: 07/17/18 07/18/18 18:59 06:59 Intake Total 240 Balance 240 - Medications Medications: Current Medications Acetaminophen (Tylenol 325mg Tab) 650 mg PO Q6 PRN PRN Reason: Pain, moderate (4-7) Albuterol/Ipratropium (Duoneb 3 Mg/0.5 Mg (3 Ml) Ud) 3 ml INH RQ4 PRN PRN Reason: Shortness of Breath Last Admin: 07/13/18 03:45 Dose: 3 ml Amlodipine Besylate (Norvasc) 10 mg PO DAILY [facility] Last Admin: 07/17/18 09:39 Dose: 10 mg Calcium Carbonate (Tums) 500 mg PO TID [facility] Last Admin: 07/17/18 19:36 Dose: 500 mg Dextrose (Dextrose 50% Inj) 0 ml IV STAT PRN; Protocol PRN Reason: Hypoglycemia Protocol Dextrose (Glutose 15) 0 gm PO ONCE PRN; Protocol PRN Reason: Hypoglycemia Protocol Epoetin Brandon (Procrit) 10,000 unit IV TTS [facility] Last Admin: 07/17/18 17:19 Dose: 10,000 unit Fluticasone/Vilanterol (Breo Ellipta 100-25 Mcg Inh) 1 puff INH RQD [facility] Last Admin: 07/17/18 08:08 Dose: 1 puff Glucagon (Glucagen Diagnostic Kit) 0 mg IM STAT PRN; Protocol PRN Reason: Hypoglycemia Protocol Dextrose (Dextrose 5% In Water 1000 Ml) 1,000 mls @ 0 mls/hr IV .Q0M PRN; Protocol PRN Reason: Hypoglycemia Protocol Insulin Human Regular (Novolin R) 0 unit SC ACHS [facility]; Protocol Last Admin: 07/17/18 22:37 Dose: Not Given Levothyroxine Sodium (Synthroid) 100 mcg PO DAILY@0630 [facility] Last Admin: 07/17/18 05:51 Dose: 100 mcg Metoprolol Tartrate (Lopressor) 50 mg PO BID [facility] Last Admin: 07/17/18 19:36 Dose: 50 mg Rosuvastatin Calcium (Crestor) 10 mg PO HS [facility] Last Admin: 07/17/18 21:08 Dose: 10 mg - Labs Labs: 07/17/18 07:04 07/17/18 07:04
[2018-07-18] MEDS: Albuterol-Ipratrop 3 mg / 0.5 (3 ml) UD INH PRN (03:52)
[2018-07-18] MEDS: Levothyroxine 100 MCG TAB PO SCH (06:15)
[2018-07-18 07:45] LABS: BASO # 0.1 K/uL (0.0-0.2); BASO % 0.3 % (0.0-2.0); EOS # 0.1 K/uL (0.0-0.7); HEMOGLOBIN 8.3 g/dL (11.0-16.0); LYMPH # 3.7 K/uL (1.0-4.3); MEAN CORPUSCULAR HGB CONC 31.2 g/dL (33.0-37.0); WHITE BLOOD COUNT 25.6 K/uL (4.8-10.8)
[2018-07-18 08:03] LABS: ALB/GLOB RATIO 0.8 (1.0-2.1); ALBUMIN 3.3 g/dL (3.5-5.0); CALCIUM 8.4 mg/dl (8.6-10.4)
[2018-07-18 08:08] LABS: EOS % 0.4 % (0.0-4.0); LYMPH % 14.5 % (20.0-40.0); MEAN CELL VOLUME 105.9 fL (81.0-99.0); MEAN PLATELET VOLUME 9.7 fL (7.2-11.7); MONO # 8.4 K/uL (0.0-0.8); MONO % 32.9 % (0.0-10.0); NEUT # 13.3 K/uL (1.8-7.0); NEUT % 51.9 % (50.0-75.0); NRBC % 0.1 % (0.0-2.0); RBC 2.52 Mil/uL (3.80-5.20); RED CELL DISTRIBUTION WIDTH 18.5 % (11.5-14.5)
[2018-07-18 08:12] LABS: PLATELET COUNT 71 K/uL (130-400)
[2018-07-18] MEDS: Fluticasone-Vilanterol 100/25mcg Diskus INH SCH (08:18)
[2018-07-18] MEDS: (Novolin R) Insulin Human Regular 100 units/ml vial SC SCH ×2 (08:30→12:38)
[2018-07-18] MEDS: Calcium Carbonate 500 mg Chewable Antacid Tab PO SCH ×2 (09:38→14:11)
[2018-07-18 10:22] LABS: BASOPHIL 1 % (0-2); EOSINOPHIL 1 % (0-4); LYMPHOCYTE 15 % (20-40); MONOCYTE 37 % (0-10); NEUTROPHIL 46 % (50-75); TOTAL CELLS COUNTED 100
[2018-07-18 10:30] LABS: ANISOCYTOSIS MODERATE; PLATELET ESTIMATE DECREASED (NORMAL)
[2018-07-18 10:32] LABS: STOMATOCYTES MODERATE
--- NOTE | 2018-07-18 11:53 | RAD ---
Date of service: 07/18/2018 HISTORY: Pleural effusion, status post thoracentesis COMPARISON: 07/15/2018. TECHNIQUE: Chest PA and lateral FINDINGS: LINES AND TUBES: Right-sided dialysis catheter terminates in the right atrium. LUNG AND PLEURA: The right lung is well inflated. There is mild pulmonary venous congestion. There is interval mild decrease in size of the large left pleural effusion post thoracentesis. No pneumothorax. HEART AND MEDIASTINUM: The heart is not enlarged. There are aortic atherosclerotic calcifications present. The hilar and mediastinal contours are within normal limits. SKELETAL STRUCTURES: There are old osteoporotic compression deformities at T12 and L1, worse at L1 with vertebra plana. There is also mild superior endplate osteoporotic compression deformity in the L3 vertebral body. There is angular kyphosis at the thoracolumbar junction. VISUALIZED UPPER ABDOMEN: Normal. OTHER FINDINGS: None. IMPRESSION: Status post left thoracentesis, interval mild decrease in size of known large left pleural effusion. No pneumothorax.
--- NOTE | 2018-07-18 14:34 | CP.PCM.PN ---
Subjective - Date & Time of Evaluation Date of Evaluation: 07/18/18 Time of Evaluation: 14:32 - Subjective Subjective: dialysis cath flows sluggish TPA applied 07/17 stable dialysis otherwise 07/17- UF 2000ml s/p second thoracentesis patient wants discharge in AM Objective - Vital Signs/Intake and Output Vital Signs (last 24 hours): Temp Pulse Resp BP Pulse Ox 98.5 F 51 L 18 144/67 95 07/18/18 07:00 07/18/18 09:00 07/18/18 07:00 07/18/18 07:00 07/18/18 07:00 Intake and Output: 07/18/18 07/18/18 06:59 18:59 Intake Total 360 Balance 360 - Medications Medications: Current Medications Acetaminophen (Tylenol 325mg Tab) 650 mg PO Q6 PRN PRN Reason: Pain, moderate (4-7) Albuterol/Ipratropium (Duoneb 3 Mg/0.5 Mg (3 Ml) Ud) 3 ml INH RQ4 PRN PRN Reason: Shortness of Breath Last Admin: 07/18/18 03:52 Dose: 3 ml Amlodipine Besylate (Norvasc) 10 mg PO DAILY [facility] Last Admin: 07/18/18 09:38 Dose: 10 mg Calcium Carbonate (Tums) 500 mg PO TID [facility] Last Admin: 07/18/18 14:11 Dose: 500 mg Dextrose (Dextrose 50% Inj) 0 ml IV STAT PRN; Protocol PRN Reason: Hypoglycemia Protocol Dextrose (Glutose 15) 0 gm PO ONCE PRN; Protocol PRN Reason: Hypoglycemia Protocol Epoetin Brandon (Procrit) 10,000 unit IV TTS [facility] Last Admin: 07/17/18 17:19 Dose: 10,000 unit Fluticasone/Vilanterol (Breo Ellipta 100-25 Mcg Inh) 1 puff INH RQD [facility] Last Admin: 07/18/18 08:18 Dose: 1 puff Glucagon (Glucagen Diagnostic Kit) 0 mg IM STAT PRN; Protocol PRN Reason: Hypoglycemia Protocol Insulin Human Regular (Novolin R) 0 unit SC ACHS [facility]; Protocol Last Admin: 07/18/18 12:38 Dose: 2 unit Levothyroxine Sodium (Synthroid) 100 mcg PO DAILY@0630 [facility] Last Admin: 07/18/18 06:15 Dose: 100 mcg Metoprolol Tartrate (Lopressor) 50 mg PO BID [facility] Last Admin: 07/18/18 09:37 Dose: 50 mg Rosuvastatin Calcium (Crestor) 10 mg PO [facility] Last Admin: 07/17/18 21:08 Dose: 10 mg - Labs Labs: 07/18/18 07:20 07/18/18 07:20 - Constitutional Appears: No Acute Distress, Chronically Ill - Head Exam Head Exam: ATRAUMATIC, NORMAL INSPECTION - Eye Exam Eye Exam: EOMI, Normal appearance - Neck Exam Neck Exam: Normal Inspection. absent: Tenderness - Respiratory Exam Respiratory Exam: Clear to Ausculation Bilateral, NORMAL BREATHING PATTERN - Cardiovascular Exam Cardiovascular Exam: REGULAR RHYTHM, +S1 - GI/Abdominal Exam GI & Abdominal Exam: Soft. absent: Tenderness - Extremities Exam Extremities Exam: Normal Inspection. absent: Tenderness - Neurological Exam Neurological Exam: Awake, CN II-XII Intact - Skin Skin Exam: Dry, Warm Assessment and Plan (1) Pulmonary fibrosis Status: Acute (2) Pleural effusion Status: Acute (3) CHF (congestive heart failure) Status: Acute (4) CMML (chronic myelomonocytic leukemia) Status: Acute (5) Pleural effusion Status: Acute (6) COPD (chronic obstructive pulmonary disease) Status: Chronic - Assessment and Plan (Free Text) Plan: dialysis in AM disposition as per medicine
--- NOTE | 2018-07-18 14:43 | CP.PCM.DIS ---
<Cherrie Carrasco - Last Filed: 07/18/18 14:43> Provider - Provider Date of Admission: 07/12/18 17:51 Attending physician: Reji Reyes DO Consults: 07/12/18 22:00 Inpatient CORPORATE WELLNESS COORDINATOR Core Measures Referral Routine Comment: Physician Instructions: Reason For Exam: hx pneumonia Nursing Referral for Palliative Care Routine Comment: Physician Instructions: Reason For Exam: total score 4 Social Work Referral Routine Comment: triggered from admission Physician Instructions: Reason For Exam: felicia score 10 07/12/18 22:07 Pulmonology Consult Routine Comment: Consulting Provider: Tj Hernandez Consulting Physician: Tj Hernandez Reason for Consult: CHF/ESRD large pleural effusion 07/12/18 22:10 Cardiology Consult Routine Comment: Consulting Provider: Myron Kilgore Consulting Physician: Myron Kilgore Reason for Consult: CHF/ESRD with new pleural effusion 07/12/18 22:17 Nephrology Consult Routine Comment: Consulting Provider: Kem Langston Consulting Physician: Kem Langston Reason for Consult: ESRD on HD 07/15/18 09:47 Physician Consult Routine Comment: Consulting Provider: Erika Garrett Consulting Physician: Erika Garrett Reason for Consult: pt with pleural effusions s/p thoracentesis. Additional Comments: please eval for repeat thoracentesis 07/16/18. 07/17/18 17:03 Vascular Surgery Routine Comment: Consulting Provider: Indra Plummer Jr. Physician Instructions: Reason For Exam: poor blood flow from dialysis catheters Time Spent in preparation of Discharge (in minutes): 70 Diagnosis - Discharge Diagnosis (1) Pleural effusion Status: Acute (2) CHF (congestive heart failure) Status: Chronic (3) CKD (chronic kidney disease) stage 4, GFR 15-29 ml/min Status: Chronic (4) CMML (chronic myelomonocytic leukemia) Status: Chronic Hospital Course - Lab Results Lab Results: Micro Results 07/17/18 09:56 Pleural Fluid Gram Stain - Final 07/17/18 09:56 Pleural Fluid Body Fluid Culture - Preliminary NO GROWTH AFTER 24 HOURS 07/17/18 09:56 Pleural Fluid Fungal Culture - Preliminary 07/12/18 18:30 Blood Blood Culture - Final NO GROWTH AFTER 5 DAYS 07/12/18 18:30 Blood Gram Stain - Final TEST NOT PERFORMED 07/12/18 18:00 Blood Blood Culture - Final NO GROWTH AFTER 5 DAYS 07/12/18 18:00 Blood Gram Stain - Final TEST NOT PERFORMED Most Recent Lab Values WBC 25.6 K/uL (4.8-10.8) H 07/18/18 07:20 RBC 2.52 Mil/uL (3.80-5.20) L 07/18/18 07:20 Hgb 8.3 g/dL (11.0-16.0) L 07/18/18 07:20 Hct 26.7 % (34.0-47.0) L 07/18/18 07:20 MCV 105.9 fL (81.0-99.0) H 07/18/18 07:20 MCH 33.0 pg (27.0-31.0) H 07/18/18 07:20 MCHC 31.2 g/dL (33.0-37.0) L 07/18/18 07:20 RDW 18.5 % (11.5-14.5) H 07/18/18 07:20 Plt Count 71 K/uL (130-400) L D 07/18/18 07:20 MPV 9.7 fL (7.2-11.7) 07/18/18 07:20 Neut % (Auto) 51.9 % (50.0-75.0) 07/18/18 07:20 Lymph % (Auto) 14.5 % (20.0-40.0) L 07/18/18 07:20 Woodruff % (Auto) 32.9 % (0.0-10.0) H 07/18/18 07:20 Eos % (Auto) 0.4 % (0.0-4.0) 07/18/18 07:20 Baso % (Auto) 0.3 % (0.0-2.0) 07/18/18 07:20 Neut # (Auto) 13.3 K/uL (1.8-7.0) H 07/18/18 07:20 Lymph # (Auto) 3.7 K/uL (1.0-4.3) 07/18/18 07:20 Woodruff # (Auto) 8.4 K/uL (0.0-0.8) H 07/18/18 07:20 Eos # (Auto) 0.1 K/uL (0.0-0.7) 07/18/18 07:20 Baso # (Auto) 0.1 K/uL (0.0-0.2) 07/18/18 07:20 Neutrophils % (Manual) 46 % (50-75) L 07/18/18 07:20 Band Neutrophils % 4 % (0-2) H 07/13/18 06:13 Lymphocytes % (Manual) 15 % (20-40) L 07/18/18 07:20 Reactive Lymphs % 3 % (0-0) H 07/16/18 07:55 Monocytes % (Manual) 37 % (0-10) H 07/18/18 07:20 Eosinophils % (Manual) 1 % (0-4) 07/18/18 07:20 Basophils % (Manual) 1 % (0-2) 07/18/18 07:20 Metamyelocytes % 1 % (0-0) H 07/16/18 07:55 Myelocytes % 2 % (0-0) H 07/16/18 07:55 Platelet Estimate Decreased (NORMAL) L 07/18/18 07:20 Large Platelets Present 07/17/18 07:04 Polychromasia Slight 07/15/18 09:17 Hypochromasia (manual) Slight 07/16/18 07:55 Poikilocytosis (manual Slight 07/15/18 09:17 Anisocytosis (manual) Moderate 07/18/18 07:20 Macrocytosis (manual) Slight 07/16/18 07:55 Spherocytes Slight 07/15/18 09:17 Target Cells Slight 07/12/18 16:36 Tear Drop Cells Slight 07/14/18 07:27 Ovalocytes Slight 07/15/18 09:17 Stomatocytes Moderate 07/18/18 07:20 pO2 31 mm/Hg (30-55) 07/12/18 18:22 VBG pH 7.44 (7.32-7.43) H 07/12/18 18:22 VBG pCO2 56 mmHg (40-60) 07/12/18 18:22 VBG HCO3 33.0 mmol/L 07/12/18 18:22 VBG Total CO2 39.7 mmol/L (22-28) H 07/12/18 18:22 VBG O2 Sat (Calc) 63.4 % (40-65) 07/12/18 18:22 VBG Base Excess 11.6 mmol/L (0.0-2.0) H 07/12/18 18:22 VBG Potassium 4.0 mmol/L (3.6-5.2) 07/12/18 18:22 Sodium 138.0 mmol/l (132-148) 07/12/18 18:22 Chloride 105.0 mmol/L (98-107) 07/12/18 18:22 Glucose 123 mg/dl (65-105) H 07/12/18 18:22 Lactate 1.0 mmol/L (0.7-2.1) 07/12/18 18:22 Sodium 135 mmol/L (132-148) 07/18/18 07:20 Potassium 4.6 mmol/L (3.6-5.2) 07/18/18 07:20 Chloride 97 mmol/L (98-107) L 07/18/18 07:20 Carbon Dioxide 31 mmol/L (22-30) H 07/18/18 07:20 Anion Gap 11 (10-20) 07/18/18 07:20 BUN 27 mg/dL (7-17) H 07/18/18 07:20 Creatinine 3.3 mg/dL (0.7-1.2) H 07/18/18 07:20 Est GFR ( Amer) 16 07/18/18 07:20 Est GFR (Non-Af Amer) 13 07/18/18 07:20 POC Glucose (mg/dL) 244 mg/dL (65-110) H 07/18/18 11:04 Random Glucose 152 mg/dL (65-105) H 07/18/18 07:20 Calcium 8.4 mg/dl (8.6-10.4) L 07/18/18 07:20 Phosphorus 3.2 mg/dL (2.5-4.5) 07/18/18 07:20 Magnesium 1.8 mg/dL (1.6-2.3) 07/18/18 07:20 Total Bilirubin 0.3 mg/dL (0.2-1.3) 07/18/18 07:20 AST 25 U/L (14-36) 07/18/18 07:20 ALT 16 U/L (9-52) 07/18/18 07:20 Alkaline Phosphatase 61 U/L (38-126) 07/18/18 07:20 Total Creatine Kinase < 20 U/L (30-135) L 07/13/18 11:31 CK-MB (Mass) 0.29 ng/mL (0.0-3.38) 07/13/18 11:31 Troponin I 0.0160 ng/mL (0.00-0.120) 07/13/18 11:31 NT-Pro-B Natriuret Pep 65953 pg/mL (0-900) H 07/12/18 16:36 Total Protein 7.6 g/dL (6.3-8.3) 07/18/18 07:20 Albumin 3.3 g/dL (3.5-5.0) L 07/18/18 07:20 Globulin 4.3 gm/dL (2.2-3.9) H 07/18/18 07:20 Albumin/Globulin Ratio 0.8 (1.0-2.1) L 07/18/18 07:20 Venous Blood Potassium 4.0 mmol/L (3.6-5.2) 07/12/18 18:22 Fluid Source Pleural 07/17/18 09:56 Fluid Appearance Bloody (CLEAR) 07/17/18 09:56 Fluid WBC 1769.0 /mm3 (0.0-300.0) H 07/17/18 09:56 Fluid RBC 03674.0 /mm3 (0.0-0.0) H 07/17/18 09:56 Fluid Tot Cell Count 100 (0-0) H 07/17/18 09:56 Fluid Neutrophils 11.0 % (0-0) H 07/17/18 09:56 Fluid Lymphocytes 89.0 % (0-0) H 07/17/18 09:56 Fld Monocyte/Macrophag % (0-0) 07/17/18 09:56 Fluid Comment TEST NOT PERFORMED 07/17/18 09:56 Blood Type A POSITIVE 07/16/18 15:07 Antibody Screen Negative 07/16/18 15:07 - Hospital Course Hospital Course: Upon Admission: Patient is an 83 year old female with PMhx DM, HTN, HLD, PVD, ESRD on HD TTS, COPD, hypothyroidism, CHF with preserved EF, anemia, pneumonia, and myelodysplastic syndrome who is well known to our service. She presents this evening with chronic but acutely worsening shortness of breath. Patient states having shortness of breath for the past two months. Over the past couple of days her breathing has been getting worse. She went for dialysis this morning, and following dialysis she continued to be very short of breath. She went to see her cattle producers, Dr. Sisi Day and was noted to be satting at 70% on NM and was subsequently sent to [facility] ER. Patient has had multiple hosp italizations for similar symptoms, most recently discharged from [facility] for shortness of breath on 06/26. Pt was admitted for pleural effusions. Hospital Course: Pulmonology was consulted and recommended continuation of medical therapy and IR consultation. IR was consulted and performed a thoracentesis on 07/13/18 with 1000cc bloody fluid removed. Nephrology was consulted and resumed dialysis. Patient breathing improved. CXR on 07/15 showed subtotal opacification of left hemithorax most consistent with some combination of large effusion associated with atelectasis and/or infiltrate. Residual mild atelectasis right lung base. Blood cultures negative x 4 days Platelets decreased to 59, and 1 unit platelet transfused on 07/16. Platelets improved from 59 to 109. IR performed second thoracentesis 07/17/18 and 150 cc of slight serosanguinous fluid was removed - US showed complex, septated left pleural collection IR recommended possibility of decortication surgery, however patient refuses surgical procedure at this time. Repeat CXR showed decreased pleural effusion. Patient was deemed stable for discharge to home. Upon Discharge: Pt was recommended to go to [facility] or [facility] upon discharge however pt and family refused, as they prefer to manage pt from home. Pt was given prescriptions and instructions to follow up with primary care, hematology, pulmonology, and cardiology. Pt understood instructions and agreed. Discharge Exam - Head Exam Head Exam: ATRAUMATIC, NORMAL INSPECTION, NORMOCEPHALIC - Eye Exam Eye Exam: EOMI, Normal appearance Pupil Exam: NORMAL ACCOMODATION - Respiratory Exam Respiratory Exam: Decreased Breath Sounds, NORMAL BREATHING PATTERN. absent: Rales, Rhonchi, Wheezes - Cardiovascular Exam Cardiovascular Exam: REGULAR RHYTHM, +S1, +S2. absent: Gallop, Rubs, Systolic Murmur - GI/Abdominal Exam GI & Abdominal Exam: Normal Bowel Sounds, Soft. absent: Distended, Tenderness - Extremities Exam Extremities exam: normal inspection - Neurological Exam Neurological exam: Alert, CN II-XII Intact, Oriented x3 - Psychiatric Exam Psychiatric exam: Normal Affect, Normal Mood - Skin Skin Exam: Normal Color Discharge Plan - Discharge Medications Prescriptions: amLODIPine [Norvasc] 10 mg PO DAILY #30 tab Fenofibrate [Tricor] 48 mg PO DAILY #30 tab Fluticasone/Vilanterol 100/25 [Breo Ellipta 100-25 MCG INH] 1 puff INH RQD #1 dsk Levothyroxine [Synthroid] 100 mcg PO DAILY@0630 #30 tab Metoprolol Succinate XL [Toprol XL] 50 mg PO DAILY #30 tab Rosuvastatin Calcium [Crestor] 10 mg PO DAILY #30 tab SITagliptin [Januvia] 25 mg PO DAILY PRN #30 tab PRN Reason: high blood sugar - Follow Up Plan Condition: GOOD Disposition: HOME/ ROUTINE Instructions: Heart Failure (DC), Heart Failure (GEN), Pacemaker (DC), Pacemaker (GEN), Pulmonary Edema (DC), Pulmonary Edema (GEN), Renal Failure Diet (DC), Bone Marrow Harvesting (DC), Ascites (DC), Ascites (GEN) Additional Instructions: Please follow up with your primary care physician, community service manager, animal services officer, and cattle producers within 2 weeks. Please take your medications as prescribed. If symptoms recur, please return to the emergency department. Take care and be well. <Reji Reyes - Last Filed: 07/18/18 15:23> Provider - Provider Date of Admission: 07/12/18 17:51 Attending physician: Reji Reyes DO Consults: 07/12/18 22:00 Inpatient CORPORATE WELLNESS COORDINATOR Core Measures Referral Routine Comment: Physician Instructions: Reason For Exam: hx pneumonia Nursing Referral for Palliative Care Routine Comment: Physician Instructions: Reason For Exam: total score 4 Social Work Referral Routine Comment: triggered from admission Physician Instructions: Reason For Exam: felicia score 10 07/12/18 22:07 Pulmonology Consult Routine Comment: Consulting Provider: Tj Hernandez Consulting Physician: Tj Hernandez Reason for Consult: CHF/ESRD large pleural effusion 07/12/18 22:10 Cardiology Consult Routine Comment: Consulting Provider: Myron Kilgore Consulting Physician: Myron Kilgore Reason for Consult: CHF/ESRD with new pleural effusion 07/12/18 22:17 Nephrology Consult Routine Comment: Consulting Provider: Kem Langston Consulting Physician: Kem Langston Reason for Consult: ESRD on HD 07/15/18 09:47 Physician Consult Routine Comment: Consulting Provider: Erika Garrett Consulting Physician: Erika Garrett Reason for Consult: pt with pleural effusions s/p thoracentesis. Additional Comments: please eval for repeat thoracentesis 07/16/18. 07/17/18 17:03 Vascular Surgery Routine Comment: Consulting Provider: Indra Plummer Jr. Physician Instructions: Reason For Exam: poor blood flow from dialysis catheters Hospital Course - Lab Results Lab Results: Micro Results 07/17/18 09:56 Pleural Fluid Gram Stain - Final 07/17/18 09:56 Pleural Fluid Body Fluid Culture - Preliminary NO GROWTH AFTER 24 HOURS 07/17/18 09:56 Pleural Fluid Fungal Culture - Preliminary 07/12/18 18:30 Blood Blood Culture - Final NO GROWTH AFTER 5 DAYS 07/12/18 18:30 Blood Gram Stain - Final TEST NOT PERFORMED 07/12/18 18:00 Blood Blood Culture - Final NO GROWTH AFTER 5 DAYS 07/12/18 18:00 Blood Gram Stain - Final TEST NOT PERFORMED Most Recent Lab Values WBC 25.6 K/uL (4.8-10.8) H 07/18/18 07:20 RBC 2.52 Mil/uL (3.80-5.20) L 07/18/18 07:20 Hgb 8.3 g/dL (11.0-16.0) L 07/18/18 07:20 Hct 26.7 % (34.0-47.0) L 07/18/18 07:20 MCV 105.9 fL (81.0-99.0) H 07/18/18 07:20 MCH 33.0 pg (27.0-31.0) H 07/18/18 07:20 MCHC 31.2 g/dL (33.0-37.0) L 07/18/18 07:20 RDW 18.5 % (11.5-14.5) H 07/18/18 07:20 Plt Count 71 K/uL (130-400) L D 07/18/18 07:20 MPV 9.7 fL (7.2-11.7) 07/18/18 07:20 Neut % (Auto) 51.9 % (50.0-75.0) 07/18/18 07:20 Lymph % (Auto) 14.5 % (20.0-40.0) L 07/18/18 07:20 Woodruff % (Auto) 32.9 % (0.0-10.0) H 07/18/18 07:20 Eos % (Auto) 0.4 % (0.0-4.0) 07/18/18 07:20 Baso % (Auto) 0.3 % (0.0-2.0) 07/18/18 07:20 Neut # (Auto) 13.3 K/uL (1.8-7.0) H 07/18/18 07:20 Lymph # (Auto) 3.7 K/uL (1.0-4.3) 07/18/18 07:20 Woodruff # (Auto) 8.4 K/uL (0.0-0.8) H 07/18/18 07:20 Eos # (Auto) 0.1 K/uL (0.0-0.7) 07/18/18 07:20 Baso # (Auto) 0.1 K/uL (0.0-0.2) 07/18/18 07:20 Neutrophils % (Manual) 46 % (50-75) L 07/18/18 07:20 Band Neutrophils % 4 % (0-2) H 07/13/18 06:13 Lymphocytes % (Manual) 15 % (20-40) L 07/18/18 07:20 Reactive Lymphs % 3 % (0-0) H 07/16/18 07:55 Monocytes % (Manual) 37 % (0-10) H 07/18/18 07:20 Eosinophils % (Manual) 1 % (0-4) 07/18/18 07:20 Basophils % (Manual) 1 % (0-2) 07/18/18 07:20 Metamyelocytes % 1 % (0-0) H 07/16/18 07:55 Myelocytes % 2 % (0-0) H 07/16/18 07:55 Platelet Estimate Decreased (NORMAL) L 07/18/18 07:20 Large Platelets Present 07/17/18 07:04 Polychromasia Slight 07/15/18 09:17 Hypochromasia (manual) Slight 07/16/18 07:55 Poikilocytosis (manual Slight 07/15/18 09:17 Anisocytosis (manual) Moderate 07/18/18 07:20 Macrocytosis (manual) Slight 07/16/18 07:55 Spherocytes Slight 07/15/18 09:17 Target Cells Slight 07/12/18 16:36 Tear Drop Cells Slight 07/14/18 07:27 Ovalocytes Slight 07/15/18 09:17 Stomatocytes Moderate 07/18/18 07:20 pO2 31 mm/Hg (30-55) 07/12/18 18:22 VBG pH 7.44 (7.32-7.43) H 07/12/18 18:22 VBG pCO2 56 mmHg (40-60) 07/12/18 18:22 VBG HCO3 33.0 mmol/L 07/12/18 18:22 VBG Total CO2 39.7 mmol/L (22-28) H 07/12/18 18:22 VBG O2 Sat (Calc) 63.4 % (40-65) 07/12/18 18:22 VBG Base Excess 11.6 mmol/L (0.0-2.0) H 07/12/18 18:22 VBG Potassium 4.0 mmol/L (3.6-5.2) 07/12/18 18:22 Sodium 138.0 mmol/l (132-148) 07/12/18 18:22 Chloride 105.0 mmol/L (98-107) 07/12/18 18:22 Glucose 123 mg/dl (65-105) H 07/12/18 18:22 Lactate 1.0 mmol/L (0.7-2.1) 07/12/18 18:22 Sodium 135 mmol/L (132-148) 07/18/18 07:20 Potassium 4.6 mmol/L (3.6-5.2) 07/18/18 07:20 Chloride 97 mmol/L (98-107) L 07/18/18 07:20 Carbon Dioxide 31 mmol/L (22-30) H 07/18/18 07:20 Anion Gap 11 (10-20) 07/18/18 07:20 BUN 27 mg/dL (7-17) H 07/18/18 07:20 Creatinine 3.3 mg/dL (0.7-1.2) H 07/18/18 07:20 Est GFR ( Amer) 16 07/18/18 07:20 Est GFR (Non-Af Amer) 13 07/18/18 07:20 POC Glucose (mg/dL) 244 mg/dL (65-110) H 07/18/18 11:04 Random Glucose 152 mg/dL (65-105) H 07/18/18 07:20 Calcium 8.4 mg/dl (8.6-10.4) L 07/18/18 07:20 Phosphorus 3.2 mg/dL (2.5-4.5) 07/18/18 07:20 Magnesium 1.8 mg/dL (1.6-2.3) 07/18/18 07:20 Total Bilirubin 0.3 mg/dL (0.2-1.3) 07/18/18 07:20 AST 25 U/L (14-36) 07/18/18 07:20 ALT 16 U/L (9-52) 07/18/18 07:20 Alkaline Phosphatase 61 U/L (38-126) 07/18/18 07:20 Total Creatine Kinase < 20 U/L (30-135) L 07/13/18 11:31 CK-MB (Mass) 0.29 ng/mL (0.0-3.38) 07/13/18 11:31 Troponin I 0.0160 ng/mL (0.00-0.120) 07/13/18 11:31 NT-Pro-B Natriuret Pep 45360 pg/mL (0-900) H 07/12/18 16:36 Total Protein 7.6 g/dL (6.3-8.3) 07/18/18 07:20 Albumin 3.3 g/dL (3.5-5.0) L 07/18/18 07:20 Globulin 4.3 gm/dL (2.2-3.9) H 07/18/18 07:20 Albumin/Globulin Ratio 0.8 (1.0-2.1) L 07/18/18 07:20 Venous Blood Potassium 4.0 mmol/L (3.6-5.2) 07/12/18 18:22 Fluid Source Pleural 07/17/18 09:56 Fluid Appearance Bloody (CLEAR) 07/17/18 09:56 Fluid WBC 1769.0 /mm3 (0.0-300.0) H 07/17/18 09:56 Fluid RBC 96273.0 /mm3 (0.0-0.0) H 07/17/18 09:56 Fluid Tot Cell Count 100 (0-0) H 07/17/18 09:56 Fluid Neutrophils 11.0 % (0-0) H 07/17/18 09:56 Fluid Lymphocytes 89.0 % (0-0) H 07/17/18 09:56 Fld Monocyte/Macrophag % (0-0) 07/17/18 09:56 Fluid Comment TEST NOT PERFORMED 07/17/18 09:56 Blood Type A POSITIVE 07/16/18 15:07 Antibody Screen Negative 07/16/18 15:07 Attending/Attestation - Attestation I have personally seen and examined this patient.: Yes I have fully participated in the care of the patient.: Yes I have reviewed all pertinent clinical information, including history, physical exam and plan: Yes Notes (Text): 07/18/18 15:16 Medical attending: Patient was seen and examined by me. The patient was not in any acute distress when we came and saw today The patient's family member was present at bedside and we discussed Patient felt well. Both the patient and the family - we spoke to them about the thoracentesis and that it has been suggested she consider surgery for decortication - the patient explained she did NOT want this. Family present and in agreement as well. Given her history of low plateletcounts from the myelodysplastic history having larger surgeries would also be very difficult The patient will probably have to come back for repeat thoracentesis in the future They (like previously do not want to go to [facility]) they wanted to go home and so did the patient Reji Reyes
[2018-07-18 16:54] VITALS: BP 145/64; O2SAT 100
[2018-07-18 16:55] VITALS: RESP 20; TEMP 98.3
[2018-07-18 19:58] VITALS: PULSE 82
[2018-07-20 04:59] LABS: TOTAL PROTEIN PLEURAL FLUID 4.7 g/dL
== END 2018-07-18 17:12 | disposition home or self-care (01) | DRG 291 ==
LOC: C.ER 15:55 → C.9E 17:51 → C.6T 20:28
PROVIDERS: ADMIT Hospitalist; ATTEND Hospitalist
PROC: 0W9B3ZZ Drainage of Left Pleural Cavity, Percutaneous Approach (ICD-10-PCS; 2018-07-13)
PROC: 5A1D70Z Performance of Urinary Filtration, Intermittent, Less than 6 Hours Per Day (ICD-10-PCS; 2018-07-14)
PROC: 5A1D70Z Performance of Urinary Filtration, Intermittent, Less than 6 Hours Per Day (ICD-10-PCS; principal; 2018-07-17)
PROC: 0W9B3ZZ Drainage of Left Pleural Cavity, Percutaneous Approach (ICD-10-PCS; 2018-07-17)
DX: I13.2 Hypertensive heart and chronic kidney disease with heart failure and with stage 5 chronic kidney disease, or end stage renal disease (principal); N18.6 End stage renal disease; J90 Pleural effusion, not elsewhere classified; J98.11 Atelectasis; C93.10 Chronic myelomonocytic leukemia not having achieved remission; E11.22 Type 2 diabetes mellitus with diabetic chronic kidney disease; I50.9 Heart failure, unspecified; Z99.2 Dependence on renal dialysis; Z79.4 Long term (current) use of insulin; D63.1 Anemia in chronic kidney disease; E78.5 Hyperlipidemia, unspecified; J44.9 Chronic obstructive pulmonary disease, unspecified; Z79.890 Hormone replacement therapy; Z99.81 Dependence on supplemental oxygen; E03.9 Hypothyroidism, unspecified; J84.10 Pulmonary fibrosis, unspecified

== ENCOUNTER 2018-09-09 06:53 | Inpatient (IN) | payer MEDICARE ==
[2018-09-09 06:55] VITALS: BMI 27.6
--- NOTE | 2018-09-09 07:45 | C.PDOC ---
History Of Present Illness 83 years old female with PMHx of ESRD is sent to ED by for complaints of right subclavian permacath stopped working during Hemodialysis yesterday. Daughter at bed side states Patient was receiving hemodialysis yesterday for about an hour on and off. Patient reports last food or drink intake was yesterday at 7PM. Last catheter change was in April 2018. Denies fever, shortness of breath, or any other physical complaints. Vascular Surgeon: * Indra Gaines Time Seen by Provider: 09/09/18 07:37 Chief Complaint (Nursing): Vascular Access Device Problem History Per: Patient, Family (Daughter) History/Exam Limitations: no limitations Onset/Duration Of Symptoms: Hrs Current Symptoms Are (Timing): Still Present Recent travel outside of the [place]: No Past Medical History Reviewed: Historical Data, Nursing Documentation, Vital Signs Vital Signs: Last Vital Signs Temp 98.0 F 09/09/18 07:00 Pulse 79 09/09/18 07:00 Resp 18 09/09/18 07:00 BP 183/51 H 09/09/18 07:00 Pulse Ox 100 09/09/18 07:00 - Medical History PMH: Anemia, Arthritis, Asthma, Back Problems, CHF (with preserved EF), COPD, Diabetes, Gastritis, HTN, Hypothyroidism, Kidney Stones, Osteoporosis, Kathie pheral Edema, Pneumonia, End Stage Renal Disease (on HD T--Mon), Chronic Kidney Disease - [facility] Procedures (07/12/18) ASSISTANCE WITH RESPIRATORY VENTILATION, 24-96 HRS, CPAP (03/19/17) ASSISTANCE WITH RESPIRATORY VENTILATION, >96 HRS, CPAP (03/24/18) DRAINAGE OF LEFT PLEURAL CAVITY, PERCUTANEOUS APPROACH (07/12/18) FLUOROSCOPY OF SUPERIOR VENA CAVA, GUIDANCE (03/24/18) INSERTION OF INFUSION DEV INTO SUP VENA CAVA, PERC APPROACH (05/01/18) INSERTION OF VAD INTO CHEST SUBCU/FASCIA, PERC APPROACH (03/24/18) INTRODUCTION OF SERUM/TOX/VACCINE INTO MUSCLE, PERC APPROACH (05/27/15) REMOVAL OF INFUSION DEVICE FROM UPPER VEIN, OPEN APPROACH (05/01/18) TRANSFUSE NONAUT RED BLOOD CELLS IN PERIPH VEIN, PERC (05/01/18) ULTRASONOGRAPHY OF PLEURA (03/04/18) ULTRASONOGRAPHY OF RIGHT JUGULAR VEINS, GUIDANCE (03/24/18) Family History: States: Unknown Family Hx - Social History Hx Tobacco Use: No Hx Alcohol Use: No Hx Substance Use: No - Immunization History Hx Tetanus Toxoid Vaccination: No Hx Influenza Vaccination: No Hx Pneumococcal Vaccination: No Review Of Systems Except As Marked, All Systems Reviewed And Found Negative. Constitutional: Negative for: Fever Respiratory: Negative for: Shortness of Breath Physical Exam - Physical Exam Additional Physical Exam Comments: Constitutional: No acute distress. Head: Normocephalic. Atraumatic. Eyes: PERRL. ENT: Moist mucous membranes. Neck: Supple. Cardiovascular: Regular rate. Radial pulse 2+ bilaterally. Chest: No tenderness. Right sided Chest Catheter. Respiratory: Clear to auscultation bilaterally. GI: Soft. Nontender. Nondistended. Back: No CVA tenderness. Musculoskeletal: No tenderness or swelling of extremities. Skin: No rash. Neurologic: Alert, no focal deficit. ED Course And Treatment - Laboratory Results Result Diagrams: 09/09/18 07:40 09/09/18 08:59 O2 Sat by Pulse Oximetry: 100 (RA) Pulse Ox Interpretation: Normal Medical Decision Making Medical Decision Making: Surgical residents working with Dr. Lindquist will come to ER and administer cathflo. Cathflo administered. Dr. Langston's group consulted for dialysis arrangement. Dr. Hammer accepts patient to hospitalist service. Disposition - Disposition Disposition: HOSPITALIZED Disposition Time: 09:45 Condition: FAIR Forms: [facility] (Sami) - Clinical Impression Clinical Impression: ESRD on hemodialysis, Dialysis catheter clot or failure - Scribe Statement The provider has reviewed the documentation as recorded by the Giselleiblaurie Peck All medical record entries made by the Scribe were at my direction and personally dictated by me. I have reviewed the chart and agree that the record accurately reflects my personal performance of the history, physical exam, medical decision making, and the department course for this patient. I have also personally directed, reviewed, and agree with the discharge instructions and disposition.
[2018-09-09 07:52] LABS: BASO % 0.2 % (0.0-2.0); EOS % 0.1 % (0.0-4.0); HEMOGLOBIN 10.8 g/dL (11.0-16.0); LYMPH # 2.7 K/uL (1.0-4.3); LYMPH % 13.1 % (20.0-40.0); MEAN CELL VOLUME 107.4 fL (81.0-99.0); MEAN CORPUSCULAR HEMOGLOBIN 33.5 pg (27.0-31.0); MEAN CORPUSCULAR HGB CONC 31.2 g/dL (33.0-37.0); MEAN PLATELET VOLUME 9.8 fL (7.2-11.7); MONO # 5.2 K/uL (0.0-0.8); MONO % 24.6 % (0.0-10.0); PLATELET COUNT 38 K/uL (130-400); RBC 3.22 Mil/uL (3.80-5.20); RED CELL DISTRIBUTION WIDTH 19.6 % (11.5-14.5)
[2018-09-09 07:58] LABS: INR 1.1; PROTHROMBIN TIME 12.4 SECONDS (9.7-12.2)
[2018-09-09 09:16] LABS: BANDS 2 % (0-2); LYMPHOCYTE 12 % (20-40); MONOCYTE 27 % (0-10); NEUTROPHIL 59 % (50-75); TOTAL CELLS COUNTED 100
[2018-09-09 09:17] LABS: ANISOCYTOSIS MODERATE; MICROCYTOSIS MODERATE; PLATELET ESTIMATE MARKEDLY DECREASED (NORMAL)
[2018-09-09 09:18] LABS: HYPOCHROMIC SLIGHT; TOXIC GRANULATION PRESENT
[2018-09-09 09:19] LABS: POLYCHROMIC MODERATE
[2018-09-09 09:33] LABS: ALB/GLOB RATIO 0.9 (1.0-2.1); ALBUMIN 3.6 g/dL (3.5-5.0); CALCIUM 9.8 mg/dl (8.6-10.4)
--- NOTE | 2018-09-09 09:51 | CP.PCM.CON ---
History of Present Illness - History of Present Illness History of Present Illness: Vascular Surgery Consult Note- Dr. Plummer Reason for consult: malfunctioning Permacath 83F pmhx significant for ESRD on HD TTS attempted to have dialysis yesterday and was only able to have 1hr of dialysis. patient presents to the ED for evaluation. In ED Cathflo was used in each port. After 1hr was able to aspirate and flush with ease. Sterile dressing was applied. Currently in no acute distress. Patient to be admitted to hospital and plan for dialysis tomorrow. spoke with Dr. Mejia PMH: ESRD on HD TTS, COPD, pulmonary fibrosis, hypothyroidism, CHF w/ preserved EF, Anemia, Myelodysplatic syndrome, DM< HTN, HLD, PVD PSH: LE angio w/ intervention 2 stents in RLE, 1 stent LLE, cardiac cath (03/2017) ALL: NKDA SocialHx: denies tobacco, etoh, recreational drug use. 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 Review of Systems - Review of Systems All systems: reviewed and no additional remarkable complaints except - Constitutional Constitutional: As Per HPI Past Patient History - Infectious Disease Hx of Infectious Diseases: None - Tetanus Immunizations Tetanus Immunization: Unknown - Past Medical History & Family History Past Medical History?: Yes - Past Social History Smoking Status: Never Smoked - CARDIAC Hx Congestive Heart Failure: Yes (with preserved EF) Hx Hypertension: Yes Hx Peripheral Edema: Yes - PULMONARY Hx Asthma: Yes Hx Chronic Obstructive Pulmonary Disease (COPD): Yes Hx Pneumonia: Yes - NEUROLOGICAL Hx Neurological Disorder: No - HEENT Hx HEENT Problems: Yes Hx Cataracts: Yes Other/Comment: Corneal replacement both eyes - RENAL Hx Chronic Kidney Disease: Yes Hx Kidney Stones: Yes - ENDOCRINE/METABOLIC Hx Hypothyroidism: Yes - HEMATOLOGICAL/ONCOLOGICAL Hx Anemia: Yes - INTEGUMENTARY Hx Dermatological Problems: No - MUSCULOSKELETAL/RHEUMATOLOGICAL Hx Arthritis: Yes Hx Osteoporosis: Yes - GASTROINTESTINAL Hx Gastritis: Yes - GENITOURINARY/GYNECOLOGICAL Hx Genitourinary Disorders: No - PSYCHIATRIC Hx Substance Use: No - SURGICAL HISTORY Hx Surgeries: Yes Hx Cataract Extraction: Yes Other/Comment: Vascular stents. Bone marrow aspiration. Corneal transplant. P ermacath Insertion - ANESTHESIA Hx Anesthesia: Yes Hx Anesthesia Reactions: No Hx Malignant Hyperthermia: No Meds Allergies/Adverse Reactions: Allergies Allergy/AdvReac Type Severity Reaction Status Date / Time No Known Allergies Allergy Verified 09/09/18 07:07 Physical Exam - Constitutional Appears: Non-toxic, No Acute Distress - Head Exam Head Exam: ATRAUMATIC - Eye Exam Eye Exam: EOMI. absent: Scleral icterus - ENT Exam ENT Exam: Mucous Membranes Moist - Respiratory Exam Respiratory Exam: NORMAL BREATHING PATTERN. absent: Accessory Muscle Use, Respiratory Distress Additional comments: RIJ Permacath. - Cardiovascular Exam Cardiovascular Exam: REGULAR RHYTHM. absent: Bradycardia, Tachycardia - GI/Abdominal Exam GI & Abdominal Exam: Soft. absent: Distended, Firm, Guarding, Hernia, Tenderness - Neurological Exam Neurological exam: Alert, Oriented x3 - Psychiatric Exam Psychiatric exam: Normal Affect - Skin Skin Exam: Intact, Warm Results - Vital Signs Recent Vital Signs: Last Vital Signs Temp 98.0 F 09/09/18 07:00 Pulse 74 09/09/18 08:45 Resp 22 09/09/18 08:45 BP 185/86 H 09/09/18 08:45 Pulse Ox 100 09/09/18 08:45 - Labs Result Diagrams: 09/09/18 07:40 09/09/18 08:59 Labs: Laboratory Results - last 24 hr 09/09/18 09/09/18 09/09/18 07:40 07:40 08:59 WBC 21.0 H RBC 3.22 L Hgb 10.8 L D Hct 34.5 MCV 107.4 H MCH 33.5 H MCHC 31.2 L RDW 19.6 H Plt Count 38 L D MPV 9.8 Lymph % (Auto) 13.1 L [place] % (Auto) 24.6 H Eos % (Auto) 0.1 Baso % (Auto) 0.2 Lymph # (Auto) 2.7 [place] # (Auto) 5.2 H Eos # (Auto) 0.0 Baso # (Auto) 0.0 Neutrophils % (Manual) 59 Band Neutrophils % 2 Lymphocytes % (Manual) 12 L Monocytes % (Manual) 27 H Toxic Granulation Present Platelet Estimate Markedly decreased L Polychromasia Moderate Hypochromasia (manual) Slight Anisocytosis (manual) Moderate Microcytosis (manual) Moderate PT 12.4 H INR 1.1 APTT 36.0 H Sodium 139 Potassium 4.6 Chloride 97 L Carbon Dioxide 31 H Anion Gap 15 BUN 50 H Creatinine 5.1 H Est GFR ( Amer) 10 Est GFR (Non-Af Amer) 8 Random Glucose 139 H Calcium 9.8 Phosphorus 4.5 Magnesium 2.2 Total Bilirubin 0.3 AST 19 ALT 12 Alkaline Phosphatase 41 Total Protein 7.7 Albumin 3.6 Globulin 4.1 H Albumin/Globulin Ratio 0.9 L Assessment & Plan - Assessment and Plan (Free Text) Assessment: 83F w/ malfunctioning permacath Plan: bedside cathflo used in each port plan for dialysis for tomorrow cleared to used catheter further recs per Dr. Plummer Surgical attending PGY2
[2018-09-09] MEDS ORDERED: Metoprolol Succinate 25 mg XL Tab PO STA (10:34)
--- NOTE | 2018-09-09 12:17 | CP.PCM.HP ---
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 During dialysis yesterday, permacath became blocked. She received about 1 hour of dialysis. Patient's daughter called vascular surgeon, Dr. Plummer who told the patient to come to the hospital. In ED, residential living assistant flushed permacath with Alteplase and catheter was working again. Currently, pt denies having any CP, SOB, abdpain pain, fatigue, nausea, vomiting, diarrhea or constipation. 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 Allergies: NKDA Meds: See MAR PMD: Dr. Clements Nephro: Dr. Langston, hemod[address], , S via permacath, no AVF Pulmonary: Dr. Hernandez Cardio: Dr. Sisi Day [phone] Hem/Onc: Dr. Avel Day [phone] Proxy: Bharati Keene (First Daughter, ) and Ayla ( Second daughter, ) Present on Admission - Present on Admission Any Indicators Present on Admission: No Review of Systems - Constitutional Constitutional: absent: Chills, Fever - EENT Eyes: absent: Blurred Vision, Change in Vision Nose/Mouth/Throat: absent: Nasal Congestion, Nasal Discharge, Sore Throat - Cardiovascular Cardiovascular: absent: Chest Pain, Dyspnea, Dyspnea on Exertion, Edema, Leg Edema, Pedal Edema - Respiratory Respiratory: absent: Cough, Dyspnea, Wheezing, Chest Congestion - Gastrointestinal Gastrointestinal: absent: Abdominal Pain, Constipation, Diarrhea, Nausea, Vomiting - Genitourinary Genitourinary: absent: Dysuria, Hematuria, Urinary Frequency, Urinary Urgency - Musculoskeletal Musculoskeletal: absent: Numbness, Tingling - Integumentary Integumentary: absent: Lesions, Rash - Neurological Neurological: absent: Numbness, Headaches, Tingling, Weakness - Psychiatric Psychiatric: absent: Anxiety, Depression Past Patient History - Infectious Disease Hx of Infectious Diseases: None - Tetanus Immunizations Tetanus Immunization: Unknown - Past Medical History & Family History Past Medical History?: Yes - Past Social History Smoking Status: Never Smoked Chewing Tobacco Use: No Cigar Use: No Alcohol: None Drugs: Denies - CARDIAC Hx Congestive Heart Failure: Yes (with preserved EF) Hx Hypertension: Yes Hx Peripheral Edema: Yes - PULMONARY Hx Asthma: Yes Hx Chronic Obstructive Pulmonary Disease (COPD): Yes Hx Pneumonia: Yes - NEUROLOGICAL Hx Neurological Disorder: No - HEENT Hx HEENT Problems: Yes Hx Cataracts: Yes Other/Comment: Corneal replacement both eyes - RENAL Hx Chronic Kidney Disease: Yes Hx Kidney Stones: Yes - ENDOCRINE/METABOLIC Hx Hypothyroidism: Yes - HEMATOLOGICAL/ONCOLOGICAL Hx Anemia: Yes - INTEGUMENTARY Hx Dermatological Problems: No - MUSCULOSKELETAL/RHEUMATOLOGICAL Hx Arthritis: Yes Hx Osteoporosis: Yes - GASTROINTESTINAL Hx Gastritis: Yes - GENITOURINARY/GYNECOLOGICAL Hx Genitourinary Disorders: No - PSYCHIATRIC Hx Substance Use: No - SURGICAL HISTORY Hx Surgeries: Yes Hx Cataract Extraction: Yes Other/Comment: Vascular stents. Bone marrow aspiration. Corneal transplant. Permacath Insertion - ANESTHESIA Hx Anesthesia: Yes Hx Anesthesia Reactions: No Hx Malignant Hyperthermia: No Meds Allergies/Adverse Reactions: Allergies Allergy/AdvReac Type Severity Reaction Status Date / Time No Known Allergies Allergy Verified 09/09/18 07:07 Physical Exam - Constitutional Appears: Non-toxic, No Acute Distress - Head Exam Head Exam: ATRAUMATIC, NORMOCEPHALIC - ENT Exam ENT Exam: Mucous Membranes Moist - Respiratory Exam Respiratory Exam: Clear to Auscultation Bilateral. absent: Accessory Muscle Use, Rales, Rhonchi, Wheezes, Respiratory Distress - Cardiovascular Exam Cardiovascular Exam: REGULAR RHYTHM, +S1, +S2. absent: Gallop, Rubs, Systolic Murmur - GI/Abdominal Exam GI & Abdominal Exam: Normal Bowel Sounds, Soft. absent: Distended, Firm, Guarding, Rigid, Tenderness - Extremities Exam Extremities exam: Negative for: pedal edema, tenderness - Neurological Exam Neurological exam: Alert, Oriented x3 - Psychiatric Exam Psychiatric exam: Normal Affect, Normal Mood - Skin Skin Exam: Dry, Intact, Normal Color, Warm Additional comments: skin around permacath site covered in bandage, dry, no erythema, no warmth Results - Vital Signs Recent Vital Signs: Last Vital Signs Temp 98.3 F 09/09/18 11:38 Pulse 82 09/09/18 11:38 Resp 24 09/09/18 11:38 BP 173/53 H 09/09/18 11:38 Pulse Ox 100 09/09/18 11:38 - Labs Result Diagrams: 09/09/18 07:40 09/09/18 08:59 Labs: Laboratory Results - last 24 hr 09/09/18 09/09/18 09/09/18 07:40 07:40 08:59 WBC 21.0 H RBC 3.22 L Hgb 10.8 L D Hct 34.5 MCV 107.4 H MCH 33.5 H MCHC 31.2 L RDW 19.6 H Plt Count 38 L D MPV 9.8 Lymph % (Auto) 13.1 L [place] % (Auto) 24.6 H Eos % (Auto) 0.1 Baso % (Auto) 0.2 Lymph # (Auto) 2.7 [place] # (Auto) 5.2 H Eos # (Auto) 0.0 Baso # (Auto) 0.0 Neutrophils % (Manual) 59 Band Neutrophils % 2 Lymphocytes % (Manual) 12 L Monocytes % (Manual) 27 H Toxic Granulation Present Platelet Estimate Markedly decreased L Polychromasia Moderate Hypochromasia (manual) Slight Anisocytosis (manual) Moderate Microcytosis (manual) Moderate PT 12.4 H INR 1.1 APTT 36.0 H Sodium 139 Potassium 4.6 Chloride 97 L Carbon Dioxide 31 H Anion Gap 15 BUN 50 H Creatinine 5.1 H Est GFR ( Amer) 10 Est GFR (Non-Af Amer) 8 Random Glucose 139 H Calcium 9.8 Phosphorus 4.5 Magnesium 2.2 Total Bilirubin 0.3 AST 19 ALT 12 Alkaline Phosphatase 41 Total Protein 7.7 Albumin 3.6 Globulin 4.1 H Albumin/Globulin Ratio 0.9 L Assessment & Plan - Assessment and Plan (Free Text) Assessment: 83 year old female with CHF, COPD, ESRD on HD, and multiple additional medical conditions/comorbidities presents with acutely worsening shortness of breath, found to lave large left-sided pleural effusion on chest XR. Malfunctioning diapysis permacath - Flushed with alteplase and working fine now ESRD on HD T- -via R permacath -Dialysis tomorrow morning -Dr. Langston consulted, help appreciated -Tums for binders and epogen on HD HF with preserved EF Exacerbation -Will continue home Metoprolol Hx Myelodysplastic Syndrome -Platelets on admission 38. On last admission 71. Will hold oral anticoags -H/H 10.8/34.5 COPD -Patient breathing comfortably on NC, satting in high 90s -Breo Ellipta 100/25mg po inh daily -Duonebs q6h PRN Hx PVD with b/l Leg Stents -Tricor 48mg po daily -Crestor 20mg po HS DMII -Januvia 25mg po daily -RISS -hypoglycemia protocol -HgA1C 6.4 on 06/23 HTN -Norvasc 10mg po daily -Metoprolol 50 mg daily HLD -Tricor 48mg po daily -Crestor 20mg po HS Hx Anemia of Chronic Disease (/ ESRD) -Hgb 9.0 -continue to monitor Hypothyroidism -Synthroid 100mcg po daily Prophylaxis -SCDs -Contraindication to VTE - thrombocytopenia Discussed with attending, Dr. Miguel - Date & Time Date: 09/09/18 Time: 15:37 <Cherie Miguel V - Last Filed: 09/09/18 18:32> Results - Vital Signs Recent Vital Signs: Last Vital Signs Temp 98.3 F 09/09/18 11:38 Pulse 71 09/09/18 13:45 Resp 20 09/09/18 13:45 BP 184/65 H 09/09/18 13:45 Pulse Ox 100 09/09/18 11:38 - Labs Result Diagrams: 09/09/18 07:40 09/09/18 08:59 Labs: Laboratory Results - last 24 hr 09/09/18 09/09/18 09/09/18 07:40 07:40 08:59 WBC 21.0 H RBC 3.22 L Hgb 10.8 L D Hct 34.5 MCV 107.4 H MCH 33.5 H MCHC 31.2 L RDW 19.6 H Plt Count 38 L D MPV 9.8 Lymph % (Auto) 13.1 L [place] % (Auto) 24.6 H Eos % (Auto) 0.1 Baso % (Auto) 0.2 Lymph # (Auto) 2.7 [place] # (Auto) 5.2 H Eos # (Auto) 0.0 Baso # (Auto) 0.0 Neutrophils % (Manual) 59 Band Neutrophils % 2 Lymphocytes % (Manual) 12 L Monocytes % (Manual) 27 H Toxic Granulation Present Platelet Estimate Markedly decreased L Polychromasia Moderate Hypochromasia (manual) Slight Anisocytosis (manual) Moderate Microcytosis (manual) Moderate PT 12.4 H INR 1.1 APTT 36.0 H Sodium 139 Potassium 4.6 Chloride 97 L Carbon Dioxide 31 H Anion Gap 15 BUN 50 H Creatinine 5.1 H Est GFR ( Amer) 10 Est GFR (Non-Af Amer) 8 POC Glucose (mg/dL) Random Glucose 139 H Calcium 9.8 Phosphorus 4.5 Magnesium 2.2 Total Bilirubin 0.3 AST 19 ALT 12 Alkaline Phosphatase 41 Total Protein 7.7 Albumin 3.6 Globulin 4.1 H Albumin/Globulin Ratio 0.9 L 09/09/18 17:12 WBC RBC Hgb Hct MCV MCH MCHC RDW Plt Count MPV Lymph % (Auto) [place] % (Auto) Eos % (Auto) Baso % (Auto) Lymph # (Auto) [place] # (Auto) Eos # (Auto) Baso # (Auto) Neutrophils % (Manual) Band Neutrophils % Lymphocytes % (Manual) Monocytes % (Manual) Toxic Granulation Platelet Estimate Polychromasia Hypochromasia (manual) Anisocytosis (manual) Microcytosis (manual) PT INR APTT Sodium Potassium Chloride Carbon Dioxide Anion Gap BUN Creatinine Est GFR ( Amer) Est GFR (Non-Af Amer) POC Glucose (mg/dL) 218 H Random Glucose Calcium Phosphorus Magnesium Total Bilirubin AST ALT Alkaline Phosphatase Total Protein Albumin Globulin Albumin/Globulin Ratio Attending/Attestation - Attestation I have personally seen and examined this patient.: Yes I have fully participated in the care of the patient.: Yes I have reviewed all pertinent clinical information: Yes
--- NOTE | 2018-09-09 12:23 | CP.PCM.CON ---
History of Present Illness - History of Present Illness History of Present Illness: renal consult for dialysis management 83 yo female with esrd, mds, dm, htn, pulmonary fibrosis, copd, did not complete hd yesterday due to catheter not working. pt does not have suitable vasculature for CLINT, so has been using a dialysis catheter. She has 1 kg of fluid above EDW. No distress, with normal K. Pt received alteplase to catheter. Daughter at bedside. Review of Systems - Constitutional Constitutional: absent: Fatigue, Fever - EENT Nose/Mouth/Throat: absent: Epistaxis, Nasal Congestion - Cardiovascular Cardiovascular: absent: Chest Pain, Edema - Respiratory Respiratory: absent: Cough, Dyspnea - Gastrointestinal Gastrointestinal: absent: Abdominal Pain, Bloating - Genitourinary Genitourinary: absent: Dysuria, Hematuria - Musculoskeletal Musculoskeletal: Arthralgias, Muscle Weakness - Neurological Neurological: absent: Convulsions, Disequilibrium Past Patient History - Infectious Disease Hx of Infectious Diseases: None - Tetanus Immunizations Tetanus Immunization: Unknown - Past Medical History & Family History Past Medical History?: Yes - Past Social History Smoking Status: Never Smoked - CARDIAC Hx Congestive Heart Failure: Yes (with preserved EF) Hx Hypertension: Yes Hx Peripheral Edema: Yes - PULMONARY Hx Asthma: Yes Hx Chronic Obstructive Pulmonary Disease (COPD): Yes Hx Pneumonia: Yes - NEUROLOGICAL Hx Neurological Disorder: No - HEENT Hx HEENT Problems: Yes Hx Cataracts: Yes Other/Comment: Corneal replacement both eyes - RENAL Hx Chronic Kidney Disease: Yes Hx Kidney Stones: Yes - ENDOCRINE/METABOLIC Hx Hypothyroidism: Yes - HEMATOLOGICAL/ONCOLOGICAL Hx Anemia: Yes - INTEGUMENTARY Hx Dermatological Problems: No - MUSCULOSKELETAL/RHEUMATOLOGICAL Hx Arthritis: Yes Hx Osteoporosis: Yes - GASTROINTESTINAL Hx Gastritis: Yes - GENITOURINARY/GYNECOLOGICAL Hx Genitourinary Disorders: No - PSYCHIATRIC Hx Substance Use: No - SURGICAL HISTORY Hx Surgeries: Yes Hx Cataract Extraction: Yes Other/Comment: Vascular stents. Bone marrow aspiration. Corneal transplant. Permacath Insertion - ANESTHESIA Hx Anesthesia: Yes Hx Anesthesia Reactions: No Hx Malignant Hyperthermia: No Meds Allergies/Adverse Reactions: Allergies Allergy/AdvReac Type Severity Reaction Status Date / Time No Known Allergies Allergy Verified 09/09/18 07:07 - Medications Medications: Current Medications Heparin Sodium (Porcine) (Heparin) 5,000 units SC Q8 MAINOR Pneumococcal Polyvalent Vaccine (Pneumovax 23 Vaccine) 0.5 ml IM .ONCE ONE Stop: 09/12/18 10:01 Physical Exam - Constitutional Appears: Non-toxic, Chronically Ill - Head Exam Head Exam: ATRAUMATIC, NORMAL INSPECTION - Eye Exam Eye Exam: EOMI, Normal appearance - ENT Exam ENT Exam: Mucous Membranes Moist - Neck Exam Neck exam: Positive for: Full Rom. Negative for: Lymphadenopathy - Respiratory Exam Respiratory Exam: Decreased Breath Sounds. absent: Rales, Wheezes - Cardiovascular Exam Cardiovascular Exam: REGULAR RHYTHM. absent: Rubs - GI/Abdominal Exam GI & Abdominal Exam: Distended, Soft. absent: Tenderness - Extremities Exam Extremities exam: Negative for: pedal edema - Neurological Exam Neurological exam: Alert, Oriented x3 Results - Vital Signs Recent Vital Signs: Last Vital Signs Temp 98.3 F 09/09/18 11:38 Pulse 82 09/09/18 11:38 Resp 24 09/09/18 11:38 BP 173/53 H 09/09/18 11:38 Pulse Ox 100 09/09/18 11:38 - Labs Result Diagrams: 09/09/18 07:40 09/09/18 08:59 Labs: Laboratory Results - last 24 hr 09/09/18 09/09/18 09/09/18 07:40 07:40 08:59 WBC 21.0 H RBC 3.22 L Hgb 10.8 L D Hct 34.5 MCV 107.4 H MCH 33.5 H MCHC 31.2 L RDW 19.6 H Plt Count 38 L D MPV 9.8 Lymph % (Auto) 13.1 L [place] % (Auto) 24.6 H Eos % (Auto) 0.1 Baso % (Auto) 0.2 Lymph # (Auto) 2.7 [place] # (Auto) 5.2 H Eos # (Auto) 0.0 Baso # (Auto) 0.0 Neutrophils % (Manual) 59 Band Neutrophils % 2 Lymphocytes % (Manual) 12 L Monocytes % (Manual) 27 H Toxic Granulation Present Platelet Estimate Markedly decreased L Polychromasia Moderate Hypochromasia (manual) Slight Anisocytosis (manual) Moderate Microcytosis (manual) Moderate PT 12.4 H INR 1.1 APTT 36.0 H Sodium 139 Potassium 4.6 Chloride 97 L Carbon Dioxide 31 H Anion Gap 15 BUN 50 H Creatinine 5.1 H Est GFR ( Amer) 10 Est GFR (Non-Af Amer) 8 Random Glucose 139 H Calcium 9.8 Phosphorus 4.5 Magnesium 2.2 Total Bilirubin 0.3 AST 19 ALT 12 Alkaline Phosphatase 41 Total Protein 7.7 Albumin 3.6 Globulin 4.1 H Albumin/Globulin Ratio 0.9 L Assessment & Plan - Assessment and Plan (Free Text) Assessment: esrd mds dm htn copd pulmonary fibrosis dialysis catheter with poor function hd in am, if catheter not working, for replacement tums as binders, ordered epogen on hd
[2018-09-09] MEDS: Calcium Carbonate 500 mg Chewable Antacid Tab PO SCH ×2 (13:30→18:08)
[2018-09-09] MEDS: (Novolin R) Insulin Human Regular 100 units/ml vial SC SCH ×2 (17:33→21:28)
[2018-09-09] MEDS ORDERED: Glucagon Recombinant 1 mg Inj IM PRN (22:27)
[2018-09-09] MEDS ORDERED: Dextrose 50% SYRINGE Inj (50 ml) IV PRN (22:27)
[2018-09-10] MEDS ORDERED: Sodium Chloride 0.45% 1,000 ML IV SCH (00:01)
[2018-09-10] MEDS: (Novolog) Insulin Aspart, Recombinant 100 u/ml 10 ml vial SC SCH ×4 (00:04→18:00)
[2018-09-10] MEDS: Albuterol-Ipratrop 3 mg / 0.5 (3 ml) UD INH PRN (05:12)
[2018-09-10] MEDS: Levothyroxine 100 MCG TAB PO SCH (05:29)
[2018-09-10 07:30] LABS: BASO % 0.2 % (0.0-2.0); EOS # 0.1 K/uL (0.0-0.7); EOS % 0.4 % (0.0-4.0); HEMOGLOBIN 10.4 g/dL (11.0-16.0); LYMPH # 4.7 K/uL (1.0-4.3); LYMPH % 24.8 % (20.0-40.0); MEAN CELL VOLUME 107.6 fL (81.0-99.0); MEAN CORPUSCULAR HGB CONC 31.6 g/dL (33.0-37.0); MEAN PLATELET VOLUME 10.1 fL (7.2-11.7); MONO # 5.9 K/uL (0.0-0.8); MONO % 30.7 % (0.0-10.0); NEUT # 8.4 K/uL (1.8-7.0); NEUT % 43.9 % (50.0-75.0); NRBC % 0.1 % (0.0-2.0); PLATELET COUNT 46 K/uL (130-400); RBC 3.04 Mil/uL (3.80-5.20); RED CELL DISTRIBUTION WIDTH 19.5 % (11.5-14.5); WHITE BLOOD COUNT 19.1 K/uL (4.8-10.8)
[2018-09-10 07:34] LABS: INR 1.1; PROTHROMBIN TIME 12.5 SECONDS (9.7-12.2)
[2018-09-10 07:37] LABS: ALBUMIN 3.6 g/dL (3.5-5.0); CALCIUM 9.8 mg/dl (8.6-10.4)
[2018-09-10] MEDS ORDERED: Fluticasone-Vilanterol 100/25mcg Diskus INH SCH (08:00)
[2018-09-10 09:01] LABS: LYMPHOCYTE 29 % (20-40); MONOCYTE 16 % (0-10); MYELOCYTE 1 % (0-0); NEUTROPHIL 44 % (50-75); TOTAL CELLS COUNTED 100
[2018-09-10 09:02] LABS: ANISOCYTOSIS SLIGHT; HYPOCHROMIC SLIGHT; PLATELET ESTIMATE DECREASED (NORMAL); POIKILOCYTOSIS SLIGHT; TARGET CELLS SLIGHT
[2018-09-10] MEDS: Budesonide 0.25 mg/2 ml Inhal Susp UD INH SCH ×2 (09:16→20:56)
[2018-09-10] MEDS: Arformoterol 15 mcg/2 ml Inh Sol INH SCH ×2 (09:16→20:56)
[2018-09-10] MEDS ORDERED: ceFAZolin 1 gm in NS 1 GM/100 ML BAG IVPB ONE (10:42)
[2018-09-10] MEDS ORDERED: Lidocaine Hydrochloride 20 ML INJ ONE (10:42)
[2018-09-10] MEDS ORDERED: HEPARIN-NS 5,000 UNITS/500 ML 5,000 UNIT/500 ML BAG IV ONE (10:51)
--- NOTE | 2018-09-10 11:43 | CP.PCM.PN ---
Subjective - Date & Time of Evaluation Date of Evaluation: 09/10/18 Time of Evaluation: 11:40 - Subjective Subjective: For new permcath this AM s/p poor dialysis rx 09/08 Has been moderately SOB Labs satisfactory Objective - Vital Signs/Intake and Output Vital Signs (last 24 hours): Temp Pulse Resp BP Pulse Ox 97.9 F 92 H 18 163/52 H 96 09/10/18 07:00 09/10/18 08:44 09/10/18 07:00 09/10/18 07:00 09/10/18 07:00 Intake and Output: 09/10/18 09/10/18 06:59 18:59 Intake Total 350 100 Output Total 850 Balance -500 100 - Medications Medications: Current Medications Albuterol/Ipratropium (Duoneb 3 Mg/0.5 Mg (3 Ml) Ud) 3 ml INH RQ6 PRN PRN Reason: Shortness of Breath Last Admin: 09/10/18 05:12 Dose: 3 ml Arformoterol Tartrate (Brovana) 15 mcg INH RQ12 MAINOR Last Admin: 09/10/18 09:16 Dose: Not Given Budesonide (Pulmicort Respules) 0.25 mg INH RQ12 MAINOR Last Admin: 09/10/18 09:16 Dose: Not Given Calcium Carbonate (Tums) 1,500 mg PO TID MAINOR Last Admin: 09/09/18 18:08 Dose: 1,500 mg Dextrose (Dextrose 50% Inj) 0 ml IV STAT PRN; Protocol PRN Reason: Hypoglycemia Protocol Dextrose (Glutose 15) 0 gm PO ONCE PRN; Protocol PRN Reason: Hypoglycemia Protocol Fenofibrate (Tricor) 48 mg PO DAILY MAINOR Glucagon (Glucagen Diagnostic Kit) 0 mg IM STAT PRN; Protocol PRN Reason: Hypoglycemia Protocol Sodium Chloride (Sodium Chloride 0.45%) 1,000 mls @ 50 mls/hr IV .Q20H MAINOR Last Admin: 09/10/18 00:25 Dose: 50 mls/hr Dextrose (Dextrose 5% In Water 1000 Ml) 1,000 mls @ 0 mls/hr IV .Q0M PRN; Protocol PRN Reason: Hypoglycemia Protocol Insulin Aspart (Novolog) 0 unit SC Q6 MAINOR; Protocol Last Admin: 09/10/18 06:32 Dose: Not Given Levothyroxine Sodium (Synthroid) 100 mcg PO DAILY@0630 [facility] Last Admin: 09/10/18 05:29 Dose: Not Given Rosuvastatin Calcium (Crestor) 10 mg PO HS [facility] - Labs Labs: 09/10/18 07:01 09/10/18 07:01 PT 12.5 SECONDS (9.7-12.2) H 09/10/18 07:01 INR 1.1 09/10/18 07:01 APTT 36.0 SECONDS (21-34) H 09/09/18 07:40 - Constitutional Appears: No Acute Distress, Chronically Ill - Head Exam Head Exam: ATRAUMATIC, NORMAL INSPECTION - Eye Exam Eye Exam: EOMI, Normal appearance - Neck Exam Neck Exam: Normal Inspection. absent: Tenderness - Respiratory Exam Respiratory Exam: Rhonchi, NORMAL BREATHING PATTERN - Cardiovascular Exam Cardiovascular Exam: REGULAR RHYTHM, +S1 - GI/Abdominal Exam GI & Abdominal Exam: Soft. absent: Tenderness - Extremities Exam Extremities Exam: Normal Inspection. absent: Tenderness - Neurological Exam Neurological Exam: Awake, CN II-XII Intact - Skin Skin Exam: Dry, Warm Assessment and Plan (1) Pulmonary fibrosis Status: Acute (2) MDS (myelodysplastic syndrome) Status: Acute (3) Dialysis catheter clot or failure Status: Acute (4) ESRD on hemodialysis Status: Acute (5) CHF (congestive heart failure) Status: Acute - Assessment and Plan (Free Text) Plan: permcath replacement will need dialysis today for fluid removal then keep on dialysis TTS
--- NOTE | 2018-09-10 12:17 | PCM.SURG1 ---
Surgeon's Initial Post Op Note - Surgeon's Notes Surgeon: Dr. Plummer Publications Sales Representative: PGY2 Pre-Operative Diagnosis: Malfunctioning Right IJ Permacath Operative Findings: Old Catheter Removed. unable to maintain wire in place. Attempted Right subclavian, however no good return. Left IJ Permacath placement. Post OP chest xray no pneumothorax w/ good saturation Post-Operative Diagnosis: as above Operation Performed: 1. Removal of Right IJ Permacath. 2. Placement of Left IJ permacath under Ultrasound guidance and Fluoroscopy Specimen/Specimens Removed: none Estimated Blood Loss: EBL {In ML}: 25 Drains Used: No Drains Post-Op Condition: Good Date of Surgery/Procedure: 09/10/18 Time of Surgery/Procedure: 12:17
[2018-09-10] MEDS ORDERED: Labetalol 5mg/ml (4ml) IVP PRN (12:18)
[2018-09-10] MEDS: Calcium Carbonate 500 mg Chewable Antacid Tab PO SCH ×3 (13:44→18:16)
--- NOTE | 2018-09-10 14:02 | CP.PCM.PN ---
<Jennifer Worthington - Last Filed: 09/10/18 16:14> Subjective - Date & Time of Evaluation Date of Evaluation: 09/10/18 Time of Evaluation: 13:55 - Subjective Subjective: Medicine Progress Note for Dr. Abernathy's service S/E at bedside S/P R permacath removal and L permacth placement pending HD today will return to regular schedule in AM Denies fevers, chills, chest pain, sob, n/v, constipation or diarrhea, and dysuria. Objective - Vital Signs/Intake and Output Vital Signs (last 24 hours): Temp Pulse Resp BP Pulse Ox 97.3 F L 80 18 166/37 H 100 09/10/18 12:14 09/10/18 13:15 09/10/18 13:15 09/10/18 13:15 09/10/18 13:15 Intake and Output: 09/10/18 09/10/18 06:59 18:59 Intake Total 350 254 Output Total 850 Balance -500 254 - Medications Medications: Current Medications Albuterol/Ipratropium (Duoneb 3 Mg/0.5 Mg (3 Ml) Ud) 3 ml INH RQ6 PRN PRN Reason: Shortness of Breath Last Admin: 09/10/18 05:12 Dose: 3 ml Arformoterol Tartrate (Brovana) 15 mcg INH RQ12 [facility] Last Admin: 09/10/18 09:16 Dose: Not Given Budesonide (Pulmicort Respules) 0.25 mg INH RQ12 [facility] Last Admin: 09/10/18 09:16 Dose: Not Given Calcium Carbonate (Tums) 1,500 mg PO TID [facility] Last Admin: 09/10/18 13:44 Dose: Not Given Dextrose (Dextrose 50% Inj) 0 ml IV STAT PRN; Protocol PRN Reason: Hypoglycemia Protocol Dextrose (Glutose 15) 0 gm PO ONCE PRN; Protocol PRN Reason: Hypoglycemia Protocol Fenofibrate (Tricor) 48 mg PO DAILY [facility] Glucagon (Glucagen Diagnostic Kit) 0 mg IM STAT PRN; Protocol PRN Reason: Hypoglycemia Protocol Dextrose (Dextrose 5% In Water 1000 Ml) 1,000 mls @ 0 mls/hr IV .Q0M PRN; Protocol PRN Reason: Hypoglycemia Protocol Insulin Aspart (Novolog) 0 unit SC Q6 [facility]; Protocol Last Admin: 09/10/18 06:32 Dose: Not Given Labetalol HCl (Trandate) 10 mg IVP Q5M PRN PRN Reason: Diastolic blood pressure Stop: 09/10/18 14:19 Last Admin: 09/10/18 12:43 Dose: 10 mg Levothyroxine Sodium (Synthroid) 100 mcg PO DAILY@0630 [facility] Last Admin: 09/10/18 05:29 Dose: Not Given Morphine Sulfate (Morphine) 1 mg IVP Q10M PRN PRN Reason: Pain, moderate (4-7) Stop: 09/10/18 14:19 Ondansetron HCl (Zofran Inj) 4 mg IVP ONCE PRN PRN Reason: Nausea/Vomiting Stop: 09/10/18 14:19 Rosuvastatin Calcium (Crestor) 10 mg PO HS [facility] - Labs Labs: 09/10/18 07:01 09/10/18 07:01 PT 12.5 SECONDS (9.7-12.2) H 09/10/18 07:01 INR 1.1 09/10/18 07:01 APTT 36.0 SECONDS (21-34) H 09/09/18 07:40 - Constitutional Appears: Non-toxic, No Acute Distress - Head Exam Head Exam: NORMAL INSPECTION, NORMOCEPHALIC - Eye Exam Eye Exam: EOMI, Normal appearance. absent: Nystagmus, Scleral icterus - ENT Exam ENT Exam: Mucous Membranes Moist - Respiratory Exam Respiratory Exam: Clear to Ausculation Bilateral, NORMAL BREATHING PATTERN - Cardiovascular Exam Cardiovascular Exam: REGULAR RHYTHM, +S1, +S2 - GI/Abdominal Exam GI & Abdominal Exam: Soft, Normal Bowel Sounds. absent: Firm, Guarding, Rigid, Tenderness - Extremities Exam Extremities Exam: Normal Inspection. absent: Calf Tenderness, Full ROM, Pedal Edema - Back Exam Back Exam: NORMAL INSPECTION - Neurological Exam Neurological Exam: Awake, Oriented x3 - Psychiatric Exam Psychiatric exam: Normal Affect, Normal Mood - Skin Skin Exam: Dry, Intact, Normal Color Additional comments: Melani stapleton appreciated Assessment and Plan - Assessment and Plan (Free Text) Assessment: 83 year old female with CHF, COPD, ESRD on HD, and multiple additional medical conditions/comorbidities presents with acutely worsening shortness of breath, found to lave large left-sided pleural effusion on chest XR. Malfunctioning diapysis permacath HD replacement with surgical team on 09/04 ESRD on HD T-TH- HD today pending then revert back to normal TThS schedule Dr. Langston consulted, help appreciated Tums for binders and epogen on HD HF with preserved EF Exacerbation Echo 03/04/18: LV 60.90; mild pulm HTN Metoprolol 50mg po XL Hx Myelodysplastic Syndrome Platelets on admission 38. On last admission 71. Will hold oral anticoags COPD Patient breathing comfortably on NC, satting in high 90s Breo Ellipta 100/25mg po inh daily Duonebs q6h PRN Hx PVD with b/l Leg Stents Tricor 48mg po daily Crestor 20mg po HS DMII RISS hypoglycemia protocol HgA1C 6.4 on 06/23 HTN Norvasc 10mg po daily Metoprolol 50 mg daily HLD Tricor 48mg po daily Crestor 20mg po HS Hx Anemia of Chronic Disease (/ ESRD) Hgb 9.0 continue to monitor Hypothyroidism Synthroid 100mcg po daily Prophylaxis SCDs Contraindication to VTE - thrombocytopenia Disposition: likely dc in AM s/p morning dialysis session Case d/w Dr. Abernathy PGY-1 Jennifer Ander <Pawel Abernathy - Last Filed: 09/13/18 18:57> Objective - Vital Signs/Intake and Output Vital Signs (last 24 hours): Temp Pulse Resp BP Pulse Ox 99.0 F 97 H 20 170/67 H 100 09/13/18 16:00 09/13/18 16:00 09/13/18 16:00 09/13/18 16:00 09/13/18 16:00 Intake and Output: 09/13/18 09/13/18 06:59 18:59 Intake Total 345 Balance 345 - Labs Labs: 09/13/18 16:04 09/12/18 07:17 PT 12.5 SECONDS (9.7-12.2) H 09/10/18 07:01 INR 1.1 09/10/18 07:01 APTT 36.0 SECONDS (21-34) H 09/09/18 07:40 Attending/Attestation - Attestation I have personally seen and examined this patient.: Yes I have fully participated in the care of the patient.: Yes I have reviewed all pertinent clinical information, including history, physical exam and plan: Yes Notes (Text): 09/13/18 18:57 This is a late entry. Care of this patient was gone over with resident Dr. Worthington. Pawel Abernathy D.O.
--- NOTE | 2018-09-10 14:02 | RAD ---
Date of service: 09/10/2018 HISTORY: s/p permacath insertion left IJ COMPARISON: 09/10/2018 at 12:02 p.m. FINDINGS: Left-sided dialysis catheter terminates in the right atrium. LUNGS: The lungs are well inflated. There is moderate pulmonary venous congestion. PLEURA: Small right and moderate left pleural effusions. No pneumothorax. CARDIOVASCULAR: Moderate cardiomegaly. There are aortic atherosclerotic calcifications present. OSSEOUS STRUCTURES: Within normal limits for the patient's age. VISUALIZED UPPER ABDOMEN: Normal. OTHER FINDINGS: None. IMPRESSION: Left-sided dialysis catheter terminates in the right atrium. Small right and moderate left pleural effusions.
--- NOTE | 2018-09-10 14:03 | RAD ---
Date of service: 09/10/2018 PROCEDURE: CHEST RADIOGRAPH, 1 VIEW HISTORY: CONFIRM CVA PLACEMENT POST OP DONE IN OR COMPARISON: 07/18/2018 FINDINGS: Left-sided dialysis catheter terminates in the right atrium. LUNGS: The lungs are well inflated. There is mild pulmonary venous congestion PLEURA: Improving left pleural effusion with residual moderate effusion. Small right pleural effusion. No pneumothorax. CARDIOVASCULAR: Persistent moderate cardiomegaly. There are aortic atherosclerotic calcifications present. OSSEOUS STRUCTURES: Within normal limits for the patient's age. VISUALIZED UPPER ABDOMEN: Normal. OTHER FINDINGS: None. IMPRESSION: 1. Left-sided dialysis catheter terminates in the right atrium. 2. Improving left pleural effusion with residual moderate effusion.
--- NOTE | 2018-09-10 15:04 | RAD ---
Date of service: 09/10/2018 PROCEDURE: Intraoperative Fluoroscopy. HISTORY: PERMACATH EXCHANGE FINDINGS: Fluoroscopic assistance was provided for PermCath exchange. Please refer to the operative report from CONCHITA Fishman.
[2018-09-10] MEDS: Metoprolol Succinate 50 mg XL Tab PO SCH (18:15)
--- NOTE | 2018-09-10 22:20 | OP ---
PROCEDURE DATE: 09/10/2018 PREOPERATIVE DIAGNOSIS: Malfunctioning right jugular Perm-A-Cath. POSTOPERATIVE DIAGNOSIS: Malfunctioning right jugular Perm-A-Cath. PROCEDURE CARRIED OUT: Removal of right jugular Perm-A-Cath and insertion of left jugular Perm-A-Cath. SURGEON: Indra Plummer Jr., MD [employer]ROLL CONSULTANT: Johnny Hui DO TYPE OF ANESTHESIA: Local with sedation. ANESTHESIA ADMINISTERED BY: Dr. Em. INDICATIONS: The patient is an 83-year-old woman, dialyzed by means of a catheter, access attempts have failed. OPERATIVE FINDINGS: The old catheter was removed, we were unable to maintain a wire inside of it, and then when on subsequent attempts to place it, we were unsuccessful both with the jugular and subclavian on the right side. DESCRIPTION OF PROCEDURE: We then turned our attention to the left side, and then using ultrasound guidance, we punctured the left jugular vein and threaded a wire centrally. After this had been flushed into position and secured into position, we sutured to the skin. It originated on the left chest wall to the left jugular vein and into the superior vena cava. There was good inflow and outflow at the end of the procedure. Catheter was then secured to the skin and the procedure was terminated. Blood loss to the procedure was less than 50 mL. Operation carried out, removal of right jugular and placement of left jugular Perm-A-Cath using ultrasound guidance. Indra Plummer Jr., MD cc: Kem Langston MD
[2018-09-11] MEDS: Albuterol-Ipratrop 3 mg / 0.5 (3 ml) UD INH PRN (00:47)
[2018-09-11] MEDS ORDERED: Collagen Hemostat Powder MM ONE (02:26)
[2018-09-11] MEDS ORDERED: Sodium Chloride 0.9% 500 ML IV ONE (02:32)
[2018-09-11] MEDS ORDERED: Absorbable Gelatin Sponge Size 100 MM ONE (02:39)
[2018-09-11] MEDS: Levothyroxine 100 MCG TAB PO SCH (06:13)
[2018-09-11] MEDS ORDERED: Desmopressin 4 mcg/ml Inj (1 ml) SC ONE (06:27)
[2018-09-11] MEDS: (Novolog) Insulin Aspart, Recombinant 100 u/ml 10 ml vial SC SCH ×4 (06:32→18:00)
[2018-09-11 07:34] LABS: BASO % 0.1 % (0.0-2.0); EOS % 0.3 % (0.0-4.0); HEMOGLOBIN 8.7 g/dL (11.0-16.0); LYMPH # 2.6 K/uL (1.0-4.3); LYMPH % 14.5 % (20.0-40.0); MEAN CELL VOLUME 106.5 fL (81.0-99.0); MEAN CORPUSCULAR HGB CONC 31.9 g/dL (33.0-37.0); MEAN PLATELET VOLUME 10.1 fL (7.2-11.7); NEUT # 9.5 K/uL (1.8-7.0); NEUT % 52.1 % (50.0-75.0); NRBC % 0.1 % (0.0-2.0); PLATELET COUNT 34 K/uL (130-400); RBC 2.57 Mil/uL (3.80-5.20); RED CELL DISTRIBUTION WIDTH 18.8 % (11.5-14.5); WHITE BLOOD COUNT 18.3 K/uL (4.8-10.8)
--- NOTE | 2018-09-11 07:57 | CP.PCM.PN ---
Subjective - Date & Time of Evaluation Date of Evaluation: 09/11/18 Time of Evaluation: 07:50 - Subjective Subjective: permacath exchange yesterday bp stable afebrile bleeding from around catheter last PM seen by surgery bandage dry now awake alert comfortable in bed hb 10.4-8.7 ROS no acute distress no sob or cough no chest pain no abd pain n,v,d no dysuria no headache Objective - Vital Signs/Intake and Output Vital Signs (last 24 hours): Temp Pulse Resp BP Pulse Ox 98.2 F 111 H 20 147/71 98 09/11/18 07:44 09/11/18 07:44 09/11/18 07:44 09/11/18 07:44 09/11/18 07:44 - Medications Medications: Current Medications Albuterol/Ipratropium (Duoneb 3 Mg/0.5 Mg (3 Ml) Ud) 3 ml INH RQ6 PRN PRN Reason: Shortness of Breath Last Admin: 09/11/18 00:47 Dose: 3 ml Arformoterol Tartrate (Brovana) 15 mcg INH RQ12 [facility] Last Admin: 09/10/18 20:56 Dose: Not Given Budesonide (Pulmicort Respules) 0.25 mg INH RQ12 [facility] Last Admin: 09/10/18 20:56 Dose: Not Given Calcium Carbonate (Tums) 1,500 mg PO TID [facility] Last Admin: 09/10/18 18:16 Dose: Not Given Dextrose (Dextrose 50% Inj) 0 ml IV STAT PRN; Protocol PRN Reason: Hypoglycemia Protocol Dextrose (Glutose 15) 0 gm PO ONCE PRN; Protocol PRN Reason: Hypoglycemia Protocol Fenofibrate (Tricor) 48 mg PO DAILY [facility] Last Admin: 09/10/18 14:00 Dose: Not Given Glucagon (Glucagen Diagnostic Kit) 0 mg IM STAT PRN; Protocol PRN Reason: Hypoglycemia Protocol Dextrose (Dextrose 5% In Water 1000 Ml) 1,000 mls @ 0 mls/hr IV .Q0M PRN; Protocol PRN Reason: Hypoglycemia Protocol Desmopressin Acetate 22 mcg/ (Sodium Chloride) 55.5 mls @ 100 mls/hr IV ONCE ONE Stop: 09/11/18 08:33 Insulin Aspart (Novolog) 0 unit SC Q6 [facility]IN[facility]; Protocol Last Admin: 04/30/19 06:32 Dose: Not Given Levothyroxine Sodium (Synthroid) 100 mcg PO DAILY@0630 [facility] Last Admin: 09/11/18 06:13 Dose: 100 mcg Metoprolol Succinate (Toprol Xl) 50 mg PO DAILY [facility] Last Admin: 09/10/18 18:15 Dose: Not Given Rosuvastatin Calcium (Crestor) 10 mg PO HS [facility] Last Admin: 09/10/18 21:50 Dose: 10 mg - Labs Labs: 09/11/18 07:15 09/10/18 07:01 PT 12.5 SECONDS (9.7-12.2) H 09/10/18 07:01 INR 1.1 09/10/18 07:01 APTT 36.0 SECONDS (21-34) H 09/09/18 07:40 - Constitutional Appears: Well, No Acute Distress - Eye Exam Eye Exam: Conjunctival injection - ENT Exam ENT Exam: Mucous Membranes Moist - Respiratory Exam Respiratory Exam: Clear to Ausculation Bilateral Additional comments: prolonged inspiration and expiration - Cardiovascular Exam Cardiovascular Exam: REGULAR RHYTHM. absent: JVD - GI/Abdominal Exam GI & Abdominal Exam: Soft. absent: Distended, Tenderness - Extremities Exam Extremities Exam: absent: Calf Tenderness - Back Exam Back Exam: absent: CVA tenderness (L), CVA tenderness (R) - Psychiatric Exam Psychiatric exam: Normal Affect - Skin Skin Exam: Dry, Warm Assessment and Plan (1) Dialysis catheter clot or failure Status: Acute (2) ESRD on hemodialysis Status: Acute (3) MDS (myelodysplastic syndrome) Status: Acute (4) Chronic anemia Status: Acute (5) Status post insertion of dialysis catheter Assessment & Plan: dialysis today follw surgical recommendations follow cbc heme f/u re thrombocytopenia Status: Acute
[2018-09-11] MEDS ORDERED: Desmopressin 4 mcg/ml Inj (1 ml) IVPB ONE (08:00)
[2018-09-11 08:23] LABS: ALB/GLOB RATIO 0.8 (1.0-2.1); ALBUMIN 3.1 g/dL (3.5-5.0); CALCIUM 8.5 mg/dl (8.6-10.4)
[2018-09-11 09:27] LABS: LYMPHOCYTE 13 % (20-40); MONOCYTE 29 % (0-10); NEUTROPHIL 58 % (50-75); PLATELET ESTIMATE MARKEDLY DECREASED (NORMAL); TOTAL CELLS COUNTED 100
[2018-09-11 09:28] LABS: ANISOCYTOSIS SLIGHT; HYPOCHROMIC SLIGHT; POIKILOCYTOSIS SLIGHT; TARGET CELLS SLIGHT
[2018-09-11] MEDS: Metoprolol Succinate 50 mg XL Tab PO SCH (09:28)
--- NOTE | 2018-09-11 11:11 | CP.PCM.PN ---
Subjective - Date & Time of Evaluation Date of Evaluation: 09/11/18 Time of Evaluation: 11:09 - Subjective Subjective: Medicine Progress Note for Dr. Abernathy's service S/E at bedside Reports bleeding at site of new permacath over night Objective - Vital Signs/Intake and Output Vital Signs (last 24 hours): Temp Pulse Resp BP Pulse Ox 98.2 F 111 H 20 147/71 98 09/11/18 07:44 09/11/18 07:44 09/11/18 07:44 09/11/18 07:44 09/11/18 07:44 - Medications Medications: Current Medications Albuterol/Ipratropium (Duoneb 3 Mg/0.5 Mg (3 Ml) Ud) 3 ml INH RQ6 PRN PRN Reason: Shortness of Breath Last Admin: 09/11/18 00:47 Dose: 3 ml Arformoterol Tartrate (Brovana) 15 mcg INH RQ12 [facility] Last Admin: 09/10/18 20:56 Dose: Not Given Budesonide (Pulmicort Respules) 0.25 mg INH RQ12 [facility] Last Admin: 09/10/18 20:56 Dose: Not Given Calcium Carbonate (Tums) 1,500 mg PO TID [facility] Last Admin: 09/10/18 18:16 Dose: Not Given Dextrose (Dextrose 50% Inj) 0 ml IV STAT PRN; Protocol PRN Reason: Hypoglycemia Protocol Dextrose (Glutose 15) 0 gm PO ONCE PRN; Protocol PRN Reason: Hypoglycemia Protocol Fenofibrate (Tricor) 48 mg PO DAILY [facility] Last Admin: 09/11/18 09:40 Dose: 48 mg Glucagon (Glucagen Diagnostic Kit) 0 mg IM STAT PRN; Protocol PRN Reason: Hypoglycemia Protocol Dextrose (Dextrose 5% In Water 1000 Ml) 1,000 mls @ 0 mls/hr IV .Q0M PRN; Protocol PRN Reason: Hypoglycemia Protocol Insulin Aspart (Novolog) 0 unit SC Q6 [facility]; Protocol Last Admin: 09/11/18 06:32 Dose: Not Given Levothyroxine Sodium (Synthroid) 100 mcg PO DAILY@0630 [facility] Last Admin: 09/11/18 06:13 Dose: 100 mcg Metoprolol Succinate (Toprol Xl) 50 mg PO DAILY [facility] Last Admin: 09/11/18 09:28 Dose: 50 mg Rosuvastatin Calcium (Crestor) 10 mg PO HS [facility] Last Admin: 09/10/18 21:50 Dose: 10 mg - Labs Labs: 09/11/18 07:15 09/11/18 07:15 PT 12.5 SECONDS (9.7-12.2) H 09/10/18 07:01 INR 1.1 09/10/18 07:01 APTT 36.0 SECONDS (21-34) H 09/09/18 07:40
[2018-09-11] MEDS: Calcium Carbonate 500 mg Chewable Antacid Tab PO SCH ×2 (11:29→21:49)
[2018-09-11] MEDS: Arformoterol 15 mcg/2 ml Inh Sol INH SCH ×2 (11:55→19:48)
[2018-09-11] MEDS: Budesonide 0.25 mg/2 ml Inhal Susp UD INH SCH ×2 (11:55→19:48)
--- NOTE | 2018-09-11 13:50 | CP.PCM.PN ---
<Jennifer Worthington - Last Filed: 09/11/18 13:41> Subjective - Date & Time of Evaluation Date of Evaluation: 09/11/18 Time of Evaluation: 13:41 - Subjective Subjective: Medicine Progress Note for Dr. Abernathy's service S/E at bedside Had bleeding at site of permacath last night. C/O headache in the morning, given 1 dose of Tylenol Denies fevers, chills, chest pain, sob, n/v, constipation or diarrhea, and dysuria. Objective - Vital Signs/Intake and Output Vital Signs (last 24 hours): Temp Pulse Resp BP Pulse Ox 98.2 F 111 H 20 147/71 98 09/11/18 07:44 09/11/18 07:44 09/11/18 07:44 09/11/18 07:44 09/11/18 07:44 - Medications Medications: Current Medications Albuterol/Ipratropium (Duoneb 3 Mg/0.5 Mg (3 Ml) Ud) 3 ml INH RQ6 PRN PRN Reason: Shortness of Breath Last Admin: 09/11/18 00:47 Dose: 3 ml Arformoterol Tartrate (Brovana) 15 mcg INH RQ12 [facility] Last Admin: 09/11/18 11:55 Dose: 15 mcg Budesonide (Pulmicort Respules) 0.25 mg INH RQ12 [facility] Last Admin: 09/11/18 11:55 Dose: 0.25 mg Calcium Carbonate (Tums) 1,500 mg PO TID [facility] Last Admin: 09/11/18 11:29 Dose: Not Given Dextrose (Dextrose 50% Inj) 0 ml IV STAT PRN; Protocol PRN Reason: Hypoglycemia Protocol Dextrose (Glutose 15) 0 gm PO ONCE PRN; Protocol PRN Reason: Hypoglycemia Protocol Fenofibrate (Tricor) 48 mg PO DAILY [facility] Last Admin: 09/11/18 09:40 Dose: 48 mg Glucagon (Glucagen Diagnostic Kit) 0 mg IM STAT PRN; Protocol PRN Reason: Hypoglycemia Protocol Dextrose (Dextrose 5% In Water 1000 Ml) 1,000 mls @ 0 mls/hr IV .Q0M PRN; Protocol PRN Reason: Hypoglycemia Protocol Insulin Aspart (Novolog) 0 unit SC Q6 [facility]; Protocol Last Admin: 09/11/18 12:40 Dose: 3 units Levothyroxine Sodium (Synthroid) 100 mcg PO DAILY@0630 [facility] Last Admin: 09/11/18 06:13 Dose: 100 mcg Metoprolol Succinate (Toprol Xl) 50 mg PO DAILY [facility] Last Admin: 09/11/18 09:28 Dose: 50 mg Rosuvastatin Calcium (Crestor) 10 mg PO HS [facility] Last Admin: 09/10/18 21:50 Dose: 10 mg - Labs Labs: 09/11/18 07:15 09/11/18 07:15 PT 12.5 SECONDS (9.7-12.2) H 09/10/18 07:01 INR 1.1 09/10/18 07:01 APTT 36.0 SECONDS (21-34) H 09/09/18 07:40 - Additional Findings Additional findings: - Constitutional Appears: Non-toxic, No Acute Distress - Head Exam Head Exam: NORMAL INSPECTION, NORMOCEPHALIC - Eye Exam Eye Exam: EOMI, Normal appearance. absent: Nystagmus, Scleral icterus - ENT Exam ENT Exam: Mucous Membranes Moist - Respiratory Exam Respiratory Exam: Clear to Ausculation Bilateral, NORMAL BREATHING PATTERN - Cardiovascular Exam Cardiovascular Exam: REGULAR RHYTHM, +S1, +S2 - GI/Abdominal Exam GI & Abdominal Exam: Soft, Normal Bowel Sounds. absent: Firm, Guarding, Rigid, Tenderness - Extremities Exam Extremities Exam: Normal Inspection. absent: Calf Tenderness, Full ROM, Pedal Edema - Back Exam Back Exam: NORMAL INSPECTION - Neurological Exam Neurological Exam: Awake, Oriented x3 - Psychiatric Exam Psychiatric exam: Normal Affect, Normal Mood - Skin Skin Exam: Dry, Intact, Normal Color Additional comments: Melani stapleton appreciated Assessment and Plan - Assessment and Plan (Free Text) Assessment: 83 year old female with CHF, COPD, ESRD on HD, and multiple additional medical conditions/comorbidities presents with malfunctioning catheter. Xray s/p AVF replacement showed small right and moderate left pleural effusions, moderate pulmonary venous congestion. Malfunctioning diapysis permacath HD replacement with surgical team on 09/04 ESRD on HD T-TH-S HD today pending then revert back to normal TThS schedule Dr. Langston consulted, help appreciated Tums for binders and epogen on HD pending HD placement HF with preserved EF Exacerbation Echo 03/04/18: LV 60.90; mild pulm HTN Metoprolol 50mg po XL Hx Myelodysplastic Syndrome Platelets on admission 38. On last admission 71. Will hold oral anticoags COPD Patient breathing comfortably on NC, satting in high 90s Breo Ellipta 100/25mg po inh daily Duonebs q6h PRN Hx PVD with b/l Leg Stents Tricor 48mg po daily Crestor 10mg po HS DMII RISS aspart q6h hypoglycemia protocol HgA1C 6.4 on 06/23 HTN Norvasc 10mg po daily Metoprolol 50 mg daily HLD Tricor 48mg po daily Crestor 10mg po HS Hx Anemia of Chronic Disease (/ ESRD) Hgb 9.0 continue to monitor Hypothyroidism Synthroid 100mcg po daily Prophylaxis SCDs Contraindication to VTE - thrombocytopenia Disposition: will observe overnight due to overt bleeding at site of new permacath s/p HD Case d/w Dr. Abernathy PGY-1 Jennifer Worthington <Pawel Abernathy - Last Filed: 09/13/18 18:57> Objective - Vital Signs/Intake and Output Vital Signs (last 24 hours): Temp Pulse Resp BP Pulse Ox 99.0 F 97 H 20 170/67 H 100 09/13/18 16:00 09/13/18 16:00 09/13/18 16:00 09/13/18 16:00 09/13/18 16:00 Intake and Output: 09/13/18 09/13/18 06:59 18:59 Intake Total 345 Balance 345 - Labs Labs: 09/13/18 16:04 09/12/18 07:17 PT 12.5 SECONDS (9.7-12.2) H 09/10/18 07:01 INR 1.1 09/10/18 07:01 APTT 36.0 SECONDS (21-34) H 09/09/18 07:40 Attending/Attestation - Attestation I have personally seen and examined this patient.: Yes I have fully participated in the care of the patient.: Yes I have reviewed all pertinent clinical information, including history, physical exam and plan: Yes Notes (Text): 09/13/18 18:56 This is a late entry. Care of this patient was gone over with resident Dr. Worthington. Pawel Abernathy D.O.
--- NOTE | 2018-09-11 15:47 | CP.PCM.PN ---
Subjective - Date & Time of Evaluation Date of Evaluation: 09/11/18 Time of Evaluation: 06:30 - Subjective Subjective: Vascular Surgery Note for Dr. Plummer Patient seen and examined at bedside. Overnight, patient has some bleeding from permacath site. Patient has no other complaints. Dressing was changed this am and there was no sign of bleeding. Patient is receiving HD through permacath. Tolerating diet. Objective - Vital Signs/Intake and Output Vital Signs (last 24 hours): Temp Pulse Resp BP Pulse Ox 97.8 F 88 19 163/63 H 98 09/11/18 15:10 09/11/18 15:10 09/11/18 15:10 09/11/18 15:10 09/11/18 07:44 - Medications Medications: Current Medications Albuterol/Ipratropium (Duoneb 3 Mg/0.5 Mg (3 Ml) Ud) 3 ml INH RQ6 PRN PRN Reason: Shortness of Breath Last Admin: 09/11/18 00:47 Dose: 3 ml Arformoterol Tartrate (Brovana) 15 mcg INH RQ12 [facility] Last Admin: 09/11/18 11:55 Dose: 15 mcg Budesonide (Pulmicort Respules) 0.25 mg INH RQ12 [facility] Last Admin: 09/11/18 11:55 Dose: 0.25 mg Calcium Carbonate (Tums) 1,500 mg PO TID [facility] Last Admin: 09/11/18 11:29 Dose: Not Given Dextrose (Dextrose 50% Inj) 0 ml IV STAT PRN; Protocol PRN Reason: Hypoglycemia Protocol Dextrose (Glutose 15) 0 gm PO ONCE PRN; Protocol PRN Reason: Hypoglycemia Protocol Fenofibrate (Tricor) 48 mg PO DAILY [facility] Last Admin: 09/11/18 09:40 Dose: 48 mg Glucagon (Glucagen Diagnostic Kit) 0 mg IM STAT PRN; Protocol PRN Reason: Hypoglycemia Protocol Dextrose (Dextrose 5% In Water 1000 Ml) 1,000 mls @ 0 mls/hr IV .Q0M PRN; Darius col PRN Reason: Hypoglycemia Protocol Insulin Aspart (Novolog) 0 unit SC Q6 [facility]; Protocol Last Admin: 09/11/18 12:40 Dose: 3 units Levothyroxine Sodium (Synthroid) 100 mcg PO DAILY@0630 [facility] Last Admin: 09/11/18 06:13 Dose: 100 mcg Metoprolol Succinate (Toprol Xl) 50 mg PO DAILY [facility] Last Admin: 09/11/18 09:28 Dose: 50 mg Rosuvastatin Calcium (Crestor) 10 mg PO [facility] Last Admin: 09/10/18 21:50 Dose: 10 mg - Labs Labs: 09/11/18 07:15 09/11/18 07:15 PT 12.5 SECONDS (9.7-12.2) H 09/10/18 07:01 INR 1.1 09/10/18 07:01 APTT 36.0 SECONDS (21-34) H 09/09/18 07:40 - Constitutional Appears: No Acute Distress - Head Exam Head Exam: ATRAUMATIC, NORMOCEPHALIC - Eye Exam Eye Exam: Normal appearance - ENT Exam ENT Exam: Mucous Membranes Moist - Respiratory Exam Respiratory Exam: NORMAL BREATHING PATTERN - Cardiovascular Exam Cardiovascular Exam: REGULAR RHYTHM - GI/Abdominal Exam GI & Abdominal Exam: Soft. absent: Tenderness - Extremities Exam Extremities Exam: Normal Capillary Refill - Neurological Exam Neurological Exam: Alert, Awake - Psychiatric Exam Psychiatric exam: Normal Affect, Normal Mood - Skin Skin Exam: Dry, Intact, Warm Additional comments: bilateral chest dressing changes now clean dry and intact no evidence of bleeding Assessment and Plan - Assessment and Plan (Free Text) Assessment: 83F s/p permacath insertion for ESRD on HD Plan: -May use permacath -HD as per nephro -Medical management as per primary -Further recommedations as per Dr. Elian Randall PGY2
[2018-09-12] MEDS: (Novolog) Insulin Aspart, Recombinant 100 u/ml 10 ml vial SC SCH ×4 (02:12→18:33)
[2018-09-12] MEDS: Levothyroxine 100 MCG TAB PO SCH (06:42)
[2018-09-12] MEDS: Albuterol-Ipratrop 3 mg / 0.5 (3 ml) UD INH PRN (07:29)
[2018-09-12] MEDS: Arformoterol 15 mcg/2 ml Inh Sol INH SCH ×2 (07:29→21:10)
[2018-09-12] MEDS: Budesonide 0.25 mg/2 ml Inhal Susp UD INH SCH ×2 (07:29→19:03)
[2018-09-12 07:31] LABS: EOS # 0.1 K/uL (0.0-0.7); EOS % 0.3 % (0.0-4.0); HEMOGLOBIN 7.8 g/dL (11.0-16.0); MEAN PLATELET VOLUME 10.6 fL (7.2-11.7)
[2018-09-12 07:46] LABS: BASO % 0.1 % (0.0-2.0); LYMPH # 3.2 K/uL (1.0-4.3); LYMPH % 16.4 % (20.0-40.0); MEAN CELL VOLUME 106.5 fL (81.0-99.0); MEAN CORPUSCULAR HGB CONC 31.9 g/dL (33.0-37.0); MONO # 6.7 K/uL (0.0-0.8); MONO % 34.1 % (0.0-10.0); NEUT # 9.7 K/uL (1.8-7.0); NEUT % 49.1 % (50.0-75.0); NRBC % 0.2 % (0.0-2.0); RBC 2.31 Mil/uL (3.80-5.20); RED CELL DISTRIBUTION WIDTH 18.5 % (11.5-14.5); WHITE BLOOD COUNT 19.7 K/uL (4.8-10.8)
[2018-09-12 07:49] LABS: PLATELET COUNT 28 K/uL (130-400)
[2018-09-12 08:02] LABS: ALB/GLOB RATIO 0.8 (1.0-2.1); ALBUMIN 3.2 g/dL (3.5-5.0); CALCIUM 8.5 mg/dl (8.6-10.4)
[2018-09-12 08:54] LABS: LYMPHOCYTE 19 % (20-40); MONOCYTE 25 % (0-10); MYELOCYTE 1 % (0-0); NEUTROPHIL 55 % (50-75); TOTAL CELLS COUNTED 100
[2018-09-12 08:55] LABS: ANISOCYTOSIS SLIGHT; PLATELET ESTIMATE MARKEDLY DECREASED (NORMAL); POIKILOCYTOSIS SLIGHT; TARGET CELLS SLIGHT
[2018-09-12 08:56] LABS: HYPOCHROMIC MODERATE
[2018-09-12] MEDS ORDERED: Pneumococcal 23-Valent Vaccine IM ONE (10:00)
[2018-09-12] MEDS: Metoprolol Succinate 50 mg XL Tab PO SCH (12:03)
[2018-09-12] MEDS: Calcium Carbonate 500 mg Chewable Antacid Tab PO SCH ×2 (12:28→18:35)
--- NOTE | 2018-09-12 12:57 | CP.PCM.PN ---
Subjective - Date & Time of Evaluation Date of Evaluation: 09/12/18 Time of Evaluation: 12:54 - Subjective Subjective: s/p permcath exchange Hg lower- for blood transfusion plats low as well stable dialysis 09/11 not dyspneic no CPs. nausea, vomiting, CPs, fevers Objective - Vital Signs/Intake and Output Vital Signs (last 24 hours): Temp Pulse Resp BP Pulse Ox 98.3 F 86 20 146/55 L 100 09/11/18 23:10 09/12/18 04:00 09/11/18 23:10 09/11/18 23:10 09/11/18 23:10 - Medications Medications: Current Medications Albuterol/Ipratropium (Duoneb 3 Mg/0.5 Mg (3 Ml) Ud) 3 ml INH RQ6 PRN PRN Reason: Shortness of Breath Last Admin: 09/12/18 07:29 Dose: 3 ml Arformoterol Tartrate (Brovana) 15 mcg INH RQ12 [facility] Last Admin: 09/12/18 07:29 Dose: 15 mcg Budesonide (Pulmicort Respules) 0.25 mg INH RQ12 [facility] Last Admin: 09/12/18 07:29 Dose: 0.25 mg Calcium Carbonate (Tums) 1,500 mg PO TIDCC [facility] Dextrose (Dextrose 50% Inj) 0 ml IV STAT PRN; Protocol PRN Reason: Hypoglycemia Protocol Dextrose (Glutose 15) 0 gm PO ONCE PRN; Protocol PRN Reason: Hypoglycemia Protocol Fenofibrate (Tricor) 48 mg PO DAILY [facility] Last Admin: 09/12/18 12:03 Dose: 48 mg Glucagon (Glucagen Diagnostic Kit) 0 mg IM STAT PRN; Protocol PRN Reason: Hypoglycemia Protocol Dextrose (Dextrose 5% In Water 1000 Ml) 1,000 mls @ 0 mls/hr IV .Q0M PRN; Protocol PRN Reason: Hypoglycemia Protocol Insulin Aspart (Novolog) 0 unit SC Q6 [facility]; Protocol Last Admin: 09/12/18 06:48 Dose: Not Given Levothyroxine Sodium (Synthroid) 100 mcg PO DAILY@0630 [facility] Last Admin: 09/12/18 06:42 Dose: 100 mcg Metoprolol Succinate (Toprol Xl) 50 mg PO DAILY [facility] Last Admin: 09/12/18 12:03 Dose: 50 mg Rosuvastatin Calcium (Crestor) 10 mg PO HS [facility] Last Admin: 09/11/18 21:49 Dose: 10 mg - Labs Labs: 09/12/18 07:17 09/12/18 07:17 PT 12.5 SECONDS (9.7-12.2) H 09/10/18 07:01 INR 1.1 09/10/18 07:01 APTT 36.0 SECONDS (21-34) H 09/09/18 07:40 - Constitutional Appears: No Acute Distress, Chronically Ill - Head Exam Head Exam: ATRAUMATIC, NORMAL INSPECTION - Eye Exam Eye Exam: EOMI, Normal appearance - Neck Exam Neck Exam: Normal Inspection. absent: Tenderness - Respiratory Exam Respiratory Exam: Clear to Ausculation Bilateral, NORMAL BREATHING PATTERN - Cardiovascular Exam Cardiovascular Exam: REGULAR RHYTHM, +S1 - GI/Abdominal Exam GI & Abdominal Exam: Soft. absent: Tenderness - Extremities Exam Extremities Exam: Normal Inspection. absent: Tenderness - Neurological Exam Neurological Exam: Awake, CN II-XII Intact - Skin Skin Exam: Dry, Warm Assessment and Plan (1) Pulmonary fibrosis Status: Acute (2) MDS (myelodysplastic syndrome) Status: Acute (3) Dialysis catheter clot or failure Status: Acute (4) ESRD on hemodialysis Status: Acute (5) CHF (congestive heart failure) Status: Acute - Assessment and Plan (Free Text) Plan: blood transfusion pending further heme eval for low plats dialysis in AM
--- NOTE | 2018-09-12 16:33 | CP.PCM.PN ---
Subjective - Date & Time of Evaluation Date of Evaluation: 09/12/18 Time of Evaluation: 16:30 - Subjective Subjective: Medicine Progress Note for Dr. Abernathy's service S/E at bedside Had bleeding at site of IV insertion site pending blood transfusion since AM order for 1 unit of pRBC with Tylenol and benadryl was ordered Unfortunately patient still does not have blood transfusion running and due to this patient's repeat cbc cannot be measured until 4 hours after transfusion This will delay patient discharge for likely 1 day due to the delay of blood transfusion 2/2 multiple blood transfusions in past making antibodies in her blood requiring more time for an appropriate blood bank to find a suitable donor Denies fevers, chills, chest pain, sob, n/v, constipation or diarrhea, and dysurial Objective - Vital Signs/Intake and Output Vital Signs (last 24 hours): Temp Pulse Resp BP Pulse Ox 98.3 F 86 20 146/55 L 100 09/11/18 23:10 09/12/18 04:00 09/11/18 23:10 09/11/18 23:10 09/11/18 23:10 - Medications Medications: Current Medications Albuterol/Ipratropium (Duoneb 3 Mg/0.5 Mg (3 Ml) Ud) 3 ml INH RQ6 PRN PRN Reason: Shortness of Breath Last Admin: 09/12/18 07:29 Dose: 3 ml Arformoterol Tartrate (Brovana) 15 mcg INH RQ12 [facility] Last Admin: 09/12/18 07:29 Dose: 15 mcg Budesonide (Pulmicort Respules) 0.25 mg INH RQ12 [facility] Last Admin: 09/12/18 07:29 Dose: 0.25 mg Calcium Carbonate (Tums) 1,500 mg PO TIDCC [facility] Dextrose (Dextrose 50% Inj) 0 ml IV STAT PRN; Protocol PRN Reason: Hypoglycemia Protocol Dextrose (Glutose 15) 0 gm PO ONCE PRN; Protocol PRN Reason: Hypoglycemia Protocol Fenofibrate (Tricor) 48 mg PO DAILY [facility] Last Admin: 09/12/18 12:03 Dose: 48 mg Glucagon (Glucagen Diagnostic Kit) 0 mg IM STAT PRN; Protocol PRN Reason: Hypoglycemia Protocol Dextrose (Dextrose 5% In Water 1000 Ml) 1,000 mls @ 0 mls/hr IV .Q0M PRN; Protocol PRN Reason: Hypoglycemia Protocol Insulin Aspart (Novolog) 0 unit SC Q6 [facility]; Protocol Last Admin: 09/12/18 13:22 Dose: 2 units Levothyroxine Sodium (Synthroid) 100 mcg PO DAILY@0630 [facility] Last Admin: 09/12/18 06:42 Dose: 100 mcg Metoprolol Succinate (Toprol Xl) 50 mg PO DAILY [facility] Last Admin: 09/12/18 12:03 Dose: 50 mg Rosuvastatin Calcium (Crestor) 10 mg PO HS [facility] Last Admin: 09/11/18 21:49 Dose: 10 mg - Labs Labs: 09/12/18 07:17 09/12/18 07:17 PT 12.5 SECONDS (9.7-12.2) H 09/10/18 07:01 INR 1.1 09/10/18 07:01 APTT 36.0 SECONDS (21-34) H 09/09/18 07:40 - Additional Findings Additional findings: - Constitutional Appears: Non-toxic, No Acute Distress - Head Exam Head Exam: NORMAL INSPECTION, NORMOCEPHALIC - Eye Exam Eye Exam: EOMI, Normal appearance. absent: Nystagmus, Scleral icterus - ENT Exam ENT Exam: Mucous Membranes Moist - Respiratory Exam Respiratory Exam: Clear to Ausculation Bilateral, NORMAL BREATHING PATTERN - Cardiovascular Exam Cardiovascular Exam: REGULAR RHYTHM, +S1, +S2 - GI/Abdominal Exam GI & Abdominal Exam: Soft, Normal Bowel Sounds. absent: Firm, Guarding, Rigid, Tenderness - Extremities Exam Extremities Exam: Normal Inspection. absent: Calf Tenderness, Full ROM, Pedal Edema - Back Exam Back Exam: NORMAL INSPECTION - Neurological Exam Neurological Exam: Awake, Oriented x3 - Psychiatric Exam Psychiatric exam: Normal Affect, Normal Mood - Skin Skin Exam: Dry, Intact, Normal Color Additional comments: Melani stapleton appreciated Assessment and Plan - Assessment and Plan (Free Text) Assessment: 83 year old female with CHF, COPD, ESRD on HD, and multiple additional medical conditions/comorbidities presents with malfunctioning catheter. Xray s/p AVF replacement showed small right and moderate left pleural effusions, moderate pulmonary venous congestion. Malfunctioning diapysis permacath HD replacement with surgical team on 09/04 ESRD on HD T-TH-S HD today pending then revert back to normal TThS schedule Dr. Langston consulted, help appreciated Tums for binders and epogen on HD pending 1 unit of pRBC w. tyelnol and benadryl HF with preserved EF Exacerbation Echo 03/04/18: LV 60.90; mild pulm HTN Metoprolol 50mg po XL Hx Myelodysplastic Syndrome Platelets on admission 38. On last admission 71. Will hold oral anticoags COPD Patient breathing comfortably on NC, satting in high 90s Breo Ellipta 100/25mg po inh daily Duonebs q6h PRN Hx PVD with b/l Leg Stents Tricor 48mg po daily Crestor 10mg po HS DMII RISS aspart q6h hypoglycemia protocol HgA1C 6.4 on 06/23 HTN Norvasc 10mg po daily Metoprolol 50 mg daily HLD Tricor 48mg po daily Crestor 10mg po HS Hx Anemia of Chronic Disease (/ ESRD) Hgb 9.0 continue to monitor Hypothyroidism Synthroid 100mcg po daily Prophylaxis SCDs Contraindication to VTE - thrombocytopenia Disposition: DC in am s/p dialysis [facility] nephrology Case d/w Dr. Abernathy PGY-1 Jennifer Worthington
[2018-09-12 17:18] LABS: HEMOGLOBIN 7.9 g/dL (11.0-16.0); MEAN CORPUSCULAR HGB CONC 31.1 g/dL (33.0-37.0); MEAN PLATELET VOLUME 9.9 fL (7.2-11.7); RBC 2.41 Mil/uL (3.80-5.20); RED CELL DISTRIBUTION WIDTH 18.5 % (11.5-14.5); WHITE BLOOD COUNT 21.9 K/uL (4.8-10.8)
--- NOTE | 2018-09-12 19:27 | CP.PCM.PCO ---
Physician Communication Note - Physician Communication Note Physician Communication Note: Please see above
[2018-09-13] MEDS: Levothyroxine 100 MCG TAB PO SCH (05:44)
[2018-09-13] MEDS: Arformoterol 15 mcg/2 ml Inh Sol INH SCH (07:41)
[2018-09-13] MEDS: Budesonide 0.25 mg/2 ml Inhal Susp UD INH SCH (07:42)
[2018-09-13] MEDS: Calcium Carbonate 500 mg Chewable Antacid Tab PO SCH ×3 (08:39→17:22)
[2018-09-13] MEDS: Metoprolol Succinate 50 mg XL Tab PO SCH ×2 (10:00→15:02)
[2018-09-13 10:24] VITALS: O2SAT 100
--- NOTE | 2018-09-13 10:27 | CP.PCM.PN ---
Subjective - Date & Time of Evaluation Date of Evaluation: 09/13/18 Time of Evaluation: 10:24 - Subjective Subjective: seen on dialysis now- to UF 2500ml to receive 1 unit prbcs had bleeding around new catheter site- controlled with DDAVP alert; no new complaint; not dyspneic, no CPs, fevers, chills Objective - Vital Signs/Intake and Output Vital Signs (last 24 hours): Temp Pulse Resp BP Pulse Ox 98.1 F 79 17 169/53 H 100 09/13/18 10:11 09/13/18 10:11 09/13/18 10:11 09/13/18 10:11 09/13/18 09:10 Intake and Output: 09/13/18 09/13/18 06:59 18:59 Intake Total 0 Balance 0 - Medications Medications: Current Medications Acetaminophen (Tylenol 325mg Tab) 650 mg PO ONCE PRN PRN Reason: prior to transfusion Last Admin: 09/13/18 09:31 Dose: 650 mg Albuterol/Ipratropium (Duoneb 3 Mg/0.5 Mg (3 Ml) Ud) 3 ml INH RQ6 PRN PRN Reason: Shortness of Breath Last Admin: 09/12/18 07:29 Dose: 3 ml Arformoterol Tartrate (Brovana) 15 mcg INH RQ12 [facility] Last Admin: 09/13/18 07:41 Dose: 15 mcg Budesonide (Pulmicort Respules) 0.25 mg INH RQ12 [facility] Last Admin: 09/13/18 07:42 Dose: 0.25 mg Calcium Carbonate (Tums) 1,500 mg PO TIDCC [facility] Last Admin: 09/13/18 08:39 Dose: 1,500 mg Dextrose (Dextrose 50% Inj) 0 ml IV STAT PRN; Protocol PRN Reason: Hypoglycemia Protocol Dextrose (Glutose 15) 0 gm PO ONCE PRN; Protocol PRN Reason: Hypoglycemia Protocol Fenofibrate (Tricor) 48 mg PO DAILY [facility] Last Admin: 09/12/18 12:03 Dose: 48 mg Glucagon (Glucagen Diagnostic Kit) 0 mg IM STAT PRN; Protocol PRN Reason: Hypoglycemia Protocol Insulin Aspart (Novolog) 0 unit SC Q6 [facility]; Protocol Last Admin: 09/13/18 00:00 Dose: Not Given Levothyroxine Sodium (Synthroid) 100 mcg PO DAILY@0630 [facility] Last Admin: 09/13/18 05:44 Dose: 100 mcg Metoprolol Succinate (Toprol Xl) 50 mg PO DAILY [facility] Last Admin: 09/12/18 12:03 Dose: 50 mg Rosuvastatin Calcium (Crestor) 10 mg PO [facility] Last Admin: 09/12/18 22:22 Dose: 10 mg - Labs Labs: 09/12/18 17:15 09/12/18 07:17 PT 12.5 SECONDS (9.7-12.2) H 09/10/18 07:01 INR 1.1 09/10/18 07:01 APTT 36.0 SECONDS (21-34) H 09/09/18 07:40 - Constitutional Appears: No Acute Distress, Chronically Ill - Head Exam Head Exam: ATRAUMATIC, NORMAL INSPECTION - Eye Exam Eye Exam: EOMI, Normal appearance - Neck Exam Neck Exam: Normal Inspection. absent: Tenderness - Respiratory Exam Respiratory Exam: Clear to Ausculation Bilateral, NORMAL BREATHING PATTERN - Cardiovascular Exam Cardiovascular Exam: REGULAR RHYTHM, +S1 - GI/Abdominal Exam GI & Abdominal Exam: Soft. absent: Tenderness - Extremities Exam Extremities Exam: Tenderness. absent: Normal Inspection - Neurological Exam Neurological Exam: Awake, CN II-XII Intact - Skin Skin Exam: Dry, Warm Assessment and Plan (1) Pulmonary fibrosis Status: Acute (2) MDS (myelodysplastic syndrome) Status: Acute (3) Dialysis catheter clot or failure Status: Acute (4) ESRD on hemodialysis Status: Acute (5) CHF (congestive heart failure) Status: Acute - Assessment and Plan (Free Text) Plan: dialysis now- remove 2500ml fluids transfuse 1 unit prbcs disposition as per medicine
[2018-09-13] MEDS: (Novolog) Insulin Aspart, Recombinant 100 u/ml 10 ml vial SC SCH ×2 (12:05)
--- NOTE | 2018-09-13 13:34 | CP.PCM.DIS ---
<Jennifer Worthington - Last Filed: 09/13/18 13:31> Provider - Provider Date of Admission: 09/12/18 17:52 Attending physician: Pawel Abernathy MD Consults: 09/09/18 09:52 General Surgery Consult Stat Comment: Consulting Provider: Indra Plummer Jr. Consulting Physician: Indra Plummer Jr. Reason for Consult: dialysis catheter Nephrology Consult Stat Comment: Consulting Provider: Kem Langston Consulting Physician: Kem Langston Reason for Consult: dialysis 09/12/18 20:49 Case Management Referral Routine Comment: routine Physician Instructions: referral Reason For Exam: needs assistance with adl-family takes care of pt. Reason for Referral: Discharge Planning Inpatient [employer] FAMILY [employer]SEL[employer] Core Measures Referral Routine Comment: routine Physician Instructions: referral Reason For Exam: Hx of CHF,COPD Time Spent in preparation of Discharge (in minutes): 37 Diagnosis - Discharge Diagnosis (1) Dialysis catheter clot or failure Status: Resolved (2) ESRD on hemodialysis Status: Chronic (3) MDS (myelodysplastic syndrome) Status: Chronic Hospital Course - Lab Results Lab Results: Most Recent Lab Values WBC 21.9 K/uL (4.8-10.8) H 09/12/18 17:15 RBC 2.41 Mil/uL (3.80-5.20) L 09/12/18 17:15 Hgb 7.9 g/dL (11.0-16.0) L 09/12/18 17:15 Hct 25.5 % (34.0-47.0) L 09/12/18 17:15 MCV 106.0 fL (81.0-99.0) H 09/12/18 17:15 MCH 33.0 pg (27.0-31.0) H 09/12/18 17:15 MCHC 31.1 g/dL (33.0-37.0) L 09/12/18 17:15 RDW 18.5 % (11.5-14.5) H 09/12/18 17:15 Plt Count 31 K/uL (130-400) L 09/12/18 17:15 MPV 9.9 fL (7.2-11.7) 09/12/18 17:15 Neut % (Auto) 49.1 % (50.0-75.0) L 09/12/18 07:17 Lymph % (Auto) 16.4 % (20.0-40.0) L 09/12/18 07:17 [place] % (Auto) 34.1 % (0.0-10.0) H 09/12/18 07:17 Eos % (Auto) 0.3 % (0.0-4.0) 09/12/18 07:17 Baso % (Auto) 0.1 % (0.0-2.0) 09/12/18 07:17 Neut # (Auto) 9.7 K/uL (1.8-7.0) H 09/12/18 07:17 Lymph # (Auto) 3.2 K/uL (1.0-4.3) 09/12/18 07:17 [place] # (Auto) 6.7 K/uL (0.0-0.8) H 09/12/18 07:17 Eos # (Auto) 0.1 K/uL (0.0-0.7) 09/12/18 07:17 Baso # (Auto) 0.0 K/uL (0.0-0.2) 09/12/18 07:17 Neutrophils % (Manual) 55 % (50-75) 09/12/18 07:17 Band Neutrophils % 2 % (0-2) 09/09/18 07:40 Lymphocytes % (Manual) 19 % (20-40) L 09/12/18 07:17 Monocytes % (Manual) 25 % (0-10) H 09/12/18 07:17 Myelocytes % 1 % (0-0) H 09/12/18 07:17 Toxic Granulation Present 09/09/18 07:40 Platelet Estimate Markedly decreased (NORMAL) L 09/12/18 07:17 Polychromasia Moderate 09/09/18 07:40 Hypochromasia (manual) Moderate 09/12/18 07:17 Poikilocytosis (manual Slight 09/12/18 07:17 Anisocytosis (manual) Slight 09/12/18 07:17 Microcytosis (manual) Moderate 09/09/18 07:40 Target Cells Slight 09/12/18 07:17 PT 12.5 SECONDS (9.7-12.2) H 09/10/18 07:01 INR 1.1 09/10/18 07:01 APTT 36.0 SECONDS (21-34) H 09/09/18 07:40 Sodium 138 mmol/L (132-148) 09/12/18 07:17 Potassium 4.0 mmol/L (3.6-5.2) 09/12/18 07:17 Chloride 98 mmol/L (98-107) 09/12/18 07:17 Carbon Dioxide 31 mmol/L (22-30) H 09/12/18 07:17 Anion Gap 13 (10-20) 09/12/18 07:17 BUN 17 mg/dL (7-17) 09/12/18 07:17 Creatinine 2.9 mg/dL (0.7-1.2) H 09/12/18 07:17 Est GFR ( Amer) 09/12/18 07:17 Est GFR (Non-Af Amer) 16 09/12/18 07:17 POC Glucose (mg/dL) 202 mg/dL (65-110) H 09/13/18 11:20 Random Glucose 122 mg/dL (65-105) H 09/12/18 07:17 Calcium 8.5 mg/dl (8.6-10.4) L 09/12/18 07:17 Phosphorus 5.4 mg/dL (2.5-4.5) H 09/10/18 07:01 Magnesium 2.1 mg/dL (1.6-2.3) 09/10/18 07:01 Total Bilirubin 0.3 mg/dL (0.2-1.3) 09/12/18 07:17 AST 28 U/L (14-36) 09/12/18 07:17 ALT 17 U/L (9-52) 09/12/18 07:17 Alkaline Phosphatase 34 U/L (38-126) L 09/12/18 07:17 Troponin I 0.0500 ng/mL (0.00-0.120) 09/13/18 02:03 Total Protein 7.0 g/dL (6.3-8.3) 09/12/18 07:17 Albumin 3.2 g/dL (3.5-5.0) L 09/12/18 07:17 Globulin 3.8 gm/dL (2.2-3.9) 09/12/18 07:17 Albumin/Globulin Ratio 0.8 (1.0-2.1) L 09/12/18 07:17 Hep Bs Antigen Negative (NEGATIVE) 09/12/18 07:17 Blood Type A POSITIVE 09/11/18 07:15 Antibody Screen Positive 09/11/18 07:15 Antibody Identification Non Specific Antibody 09/11/18 07:15 Antibody ID (Elution) Cancelled 09/11/18 07:15 Elution Negative 09/11/18 07:15 BRYAN, Poly Interpret Positive (NEGATIVE) H 09/11/18 07:15 - Hospital Course Hospital Course: Upon admission 65M w/ PMhx of CAD w/ 3 stents, HTN, HLD, COPD, perforated gastric ulcer presents to ED for chest pain of 1 week. Patient describes pain as intermittent pressure like, ranging from diaphragmatic area, radiating upward towards shoulders, 9/10 pain at its peak. Pt reports pain not associated with exertion. Patient reports taking no OTC medications. Pt additionally reports chronic, dry cough for the past several years. Hospital Course 83 yo female admitted for malfunctioning dialysis catheter. Nephrology and Vascular surgery was consulted. Patient had old cathter removed and a new permacath was added to opposite side. Patient was put on dialysis with new catheter and monitored. Patient had minor bleeding s/p new catheter insertion overnight requiring patient to be monitored for additional days 2/2 hx of myelodysplastic syndrome. Patient's cbc trended downward and 1 unit of pRBC was to be transfused however due to prior transfusions the blood had to be gotten from a send out. Patient received dialysis and was transfused 1 unit. Will be ut'ed after repeat CBC Discharge Plan 1. Patient is stable for discharge to home as per Dr. Abernathy 2. Patient will resume all home medications upon discharge as no adjustments were made to her home medications. 3. Patient will likely be discharged s/p dialysis and AM labs check. Please do not discharge patient without asking medicine team to speak to patient. 3. Patient will need to follow up with primary medical doctor or [facility] within 3-7 days of discharge from hospital. 4. Patient will return to hospital if symptoms worsen or recur. 5. Patient will resume all normal dialysis schedule upon discharge. Disclaimer: Written above is a synopsis of patient's current hospital admission. For full report refer to EMR. Discharge Exam - Head Exam Head Exam: ATRAUMATIC, NORMAL INSPECTION - Eye Exam Eye Exam: EOMI, Normal appearance. absent: Nystagmus, Scleral icterus - ENT Exam ENT Exam: Mucous Membranes Moist - Respiratory Exam Respiratory Exam: NORMAL BREATHING PATTERN - Cardiovascular Exam Cardiovascular Exam: REGULAR RHYTHM, +S1, +S2 - GI/Abdominal Exam GI & Abdominal Exam: Normal Bowel Sounds, Soft. absent: Tenderness - Extremities Exam Extremities exam: normal inspection - Neurological Exam Neurological exam: Alert, Oriented x3 - Psychiatric Exam Psychiatric exam: Normal Affect, Normal Mood - Skin Skin Exam: Dry, Intact, Normal Color Additional comments: permacath on chest appreciated Discharge Plan - Follow Up Plan Condition: FAIR Disposition: HOME/ ROUTINE Instructions: Myelodysplastic Syndromes (MDS), Heart Failure, Adult (DC), End Stage Kidney Disease (DC), Dialysis and Diet Additional Instructions: 1. Patient is stable for discharge to home as per Dr. Abernathy 2. Patient will resume all home medications upon discharge as no adjustments were made to her home medications. 3. Patient will likely be discharged s/p dialysis and AM labs check. Please do not discharge patient without asking medicine team to speak to patient. 3. Patient will need to follow up with primary medical doctor or [facility] within 3-7 days of discharge from hospital. 4. Patient will return to hospital if symptoms worsen or recur. 5. Patient will resume all normal dialysis schedule upon discharge. Referrals: Kem Langston MD [Staff Provider] - Indra Plummer Jr., MD [Staff Provider] - Fuentes Clements MD [Family Provider] - <Pawel Abernathy - Last Filed: 09/13/18 19:11> Provider - Provider Date of Admission: 09/12/18 17:52 Attending physician: Pawel Abernathy MD Consults: 09/09/18 09:52 General Surgery Consult Stat Comment: Consulting Provider: Indra Plummer Jr. Consulting Physician: Indra Plummer Jr. Reason for Consult: dialysis catheter Nephrology Consult Stat Comment: Consulting Provider: Kem Langston Consulting Physician: Kem Langston Reason for Consult: dialysis 09/12/18 20:49 Case Management Referral Routine Comment: routine Physician Instructions: referral Reason For Exam: needs assistance with adl-family takes care of pt. Reason for Referral: Discharge Planning Inpatient [employer]AGE AND FAMILY COUNSELOR Core Measures Referral Routine Comment: routine Physician Instructions: referral Reason For Exam: Hx of CHF,COPD Hospital Course - Lab Results Lab Results: Most Recent Lab Values WBC 23.6 K/uL (4.8-10.8) H 09/13/18 16:04 RBC 3.38 Mil/uL (3.80-5.20) L 09/13/18 16:04 Hgb 10.7 g/dL (11.0-16.0) L D 09/13/18 16:04 Hct 34.1 % (34.0-47.0) 09/13/18 16:04 MCV 100.8 fL (81.0-99.0) H D 09/13/18 16:04 MCH 31.8 pg (27.0-31.0) H 09/13/18 16:04 MCHC 31.6 g/dL (33.0-37.0) L 09/13/18 16:04 RDW 21.0 % (11.5-14.5) H 09/13/18 16:04 Plt Count 30 K/uL (130-400) L* 09/13/18 16:04 MPV 9.5 fL (7.2-11.7) 09/13/18 16:04 Neut % (Auto) 49.1 % (50.0-75.0) L 09/12/18 07:17 Lymph % (Auto) 16.4 % (20.0-40.0) L 09/12/18 07:17 [place] % (Auto) 34.1 % (0.0-10.0) H 09/12/18 07:17 Eos % (Auto) 0.3 % (0.0-4.0) 09/12/18 07:17 Baso % (Auto) 0.1 % (0.0-2.0) 09/12/18 07:17 Neut # (Auto) 9.7 K/uL (1.8-7.0) H 09/12/18 07:17 Lymph # (Auto) 3.2 K/uL (1.0-4.3) 09/12/18 07:17 [place] # (Auto) 6.7 K/uL (0.0-0.8) H 09/12/18 07:17 Eos # (Auto) 0.1 K/uL (0.0-0.7) 09/12/18 07:17 Baso # (Auto) 0.0 K/uL (0.0-0.2) 09/12/18 07:17 Neutrophils % (Manual) 55 % (50-75) 09/12/18 07:17 Band Neutrophils % 2 % (0-2) 09/09/18 07:40 Lymphocytes % (Manual) 19 % (20-40) L 09/12/18 07:17 Monocytes % (Manual) 25 % (0-10) H 09/12/18 07:17 Myelocytes % 1 % (0-0) H 09/12/18 07:17 Toxic Granulation Present 09/09/18 07:40 Platelet Estimate Markedly decreased (NORMAL) L 09/12/18 07:17 Polychromasia Moderate 09/09/18 07:40 Hypochromasia (manual) Moderate 09/12/18 07:17 Poikilocytosis (manual Slight 09/12/18 07:17 Anisocytosis (manual) Slight 09/12/18 07:17 Microcytosis (manual) Moderate 09/09/18 07:40 Target Cells Slight 09/12/18 07:17 PT 12.5 SECONDS (9.7-12.2) H 09/10/18 07:01 INR 1.1 09/10/18 07:01 APTT 36.0 SECONDS (21-34) H 09/09/18 07:40 Sodium 138 mmol/L (132-148) 09/12/18 07:17 Potassium 4.0 mmol/L (3.6-5.2) 09/12/18 07:17 Chloride 98 mmol/L (98-107) 09/12/18 07:17 Carbon Dioxide 31 mmol/L (22-30) H 09/12/18 07:17 Anion Gap 13 (10-20) 09/12/18 07:17 BUN 17 mg/dL (7-17) 09/12/18 07:17 Creatinine 2.9 mg/dL (0.7-1.2) H 09/12/18 07:17 Est GFR ( Amer) 09/12/18 07:17 Est GFR (Non-Af Amer) 16 09/12/18 07:17 POC Glucose (mg/dL) 202 mg/dL (65-110) H 09/13/18 11:20 Random Glucose 122 mg/dL (65-105) H 09/12/18 07:17 Calcium 8.5 mg/dl (8.6-10.4) L 09/12/18 07:17 Phosphorus 5.4 mg/dL (2.5-4.5) H 09/10/18 07:01 Magnesium 2.1 mg/dL (1.6-2.3) 09/10/18 07:01 Total Bilirubin 0.3 mg/dL (0.2-1.3) 09/12/18 07:17 AST 28 U/L (14-36) 09/12/18 07:17 ALT 17 U/L (9-52) 09/12/18 07:17 Alkaline Phosphatase 34 U/L (38-126) L 09/12/18 07:17 Troponin I 0.0500 ng/mL (0.00-0.120) 09/13/18 02:03 Total Protein 7.0 g/dL (6.3-8.3) 09/12/18 07:17 Albumin 3.2 g/dL (3.5-5.0) L 09/12/18 07:17 Globulin 3.8 gm/dL (2.2-3.9) 09/12/18 07:17 Albumin/Globulin Ratio 0.8 (1.0-2.1) L 09/12/18 07:17 UF Heparin Interp Negative (Negative) 09/10/18 07:01 Heparin-induced Plt Ab Negative (Negative) 09/10/18 07:01 NOMAN UFH Low Dose 0.1 0 % Release 09/10/18 07:01 NOMAN UFH Low Dose 0.5 0 % Release 09/10/18 07:01 NOMAN UFH High Dose 100 0 % Release 09/10/18 07:01 HIPA Patient OD 0.278 09/10/18 07:01 Hep Bs Antigen Negative (NEGATIVE) 09/12/18 07:17 Blood Type A POSITIVE 09/11/18 07:15 Antibody Screen Positive 09/11/18 07:15 Antibody Identification Non Specific Antibody 09/11/18 07:15 Antibody ID (Elution) Cancelled 09/11/18 07:15 Elution Negative 09/11/18 07:15 BRYAN, Poly Interpret Positive (NEGATIVE) H 09/11/18 07:15 Attending/Attestation - Attestation I have personally seen and examined this patient.: Yes I have fully participated in the care of the patient.: Yes I have reviewed all pertinent clinical information, including history, physical exam and plan: Yes Notes (Text): 09/13/18 19:09 Patient was seen and examined shortly after resident Dr. Worthington. Care of this patient and discharge instructions were gone over with Dr. Worthington. Confirmed with both daughters on 09/12/18 that patient has all of her home medica tions and also went of discharge instructions with them on 09/12/18 in anticipation of patient's discharge on 09/13/18. Pawel Abernathy D.O.
[2018-09-13] MEDS ORDERED: Pantoprazole 40 mg EC Tab PO SCH (15:45)
[2018-09-13 16:15] LABS: MEAN CORPUSCULAR HEMOGLOBIN 31.8 pg (27.0-31.0); MEAN CORPUSCULAR HGB CONC 31.6 g/dL (33.0-37.0); MEAN PLATELET VOLUME 9.5 fL (7.2-11.7); RBC 3.38 Mil/uL (3.80-5.20); WHITE BLOOD COUNT 23.6 K/uL (4.8-10.8)
[2018-09-13 16:17] LABS: HEMOGLOBIN 10.7 g/dL (11.0-16.0); MEAN CELL VOLUME 100.8 fL (81.0-99.0)
[2018-09-13 16:31] VITALS: BP 170/67; PULSE 97; RESP 20; TEMP 99
== END 2018-09-13 17:30 | disposition home health service (06) | DRG 314 ==
LOC: C.ER 06:53 → C.9E 11:21 → C.3T 11:35 → C.6T 13:38 → C.9E 17:52 → OBSVTOIN 09-12 17:52
PROVIDERS: ADMIT Family Medicine; ATTEND Family Medicine
PROC: 02HV33Z Insertion of Infusion Device into Superior Vena Cava, Percutaneous Approach (ICD-10-PCS; 2018-09-10)
PROC: 05PYX3Z Removal of Infusion Device from Upper Vein, External Approach (ICD-10-PCS; 2018-09-10)
PROC: B518ZZA Fluoroscopy of Superior Vena Cava, Guidance (ICD-10-PCS; 2018-09-10)
PROC: B543ZZA Ultrasonography of Right Jugular Veins, Guidance (ICD-10-PCS; 2018-09-10)
PROC: 5A1D70Z Performance of Urinary Filtration, Intermittent, Less than 6 Hours Per Day (ICD-10-PCS; 2018-09-10)
PROC: 0JH63XZ Insertion of Tunneled Vascular Access Device into Chest Subcutaneous Tissue and Fascia, Percutaneous Approach (ICD-10-PCS; principal; 2018-09-10 14:30)
PROC: 5A1D70Z Performance of Urinary Filtration, Intermittent, Less than 6 Hours Per Day (ICD-10-PCS; 2018-09-13)
PROC: 30233N1 Transfusion of Nonautologous Red Blood Cells into Peripheral Vein, Percutaneous Approach (ICD-10-PCS; 2018-09-13)
DX: T82.41XA Breakdown (mechanical) of vascular dialysis catheter, initial encounter (principal); N18.6 End stage renal disease; I13.2 Hypertensive heart and chronic kidney disease with heart failure and with stage 5 chronic kidney disease, or end stage renal disease; D46.9 Myelodysplastic syndrome, unspecified; D63.1 Anemia in chronic kidney disease; D69.6 Thrombocytopenia, unspecified; E11.22 Type 2 diabetes mellitus with diabetic chronic kidney disease; E03.9 Hypothyroidism, unspecified; E11.51 Type 2 diabetes mellitus with diabetic peripheral angiopathy without gangrene; I27.20 Pulmonary hypertension, unspecified; I50.9 Heart failure, unspecified; J44.9 Chronic obstructive pulmonary disease, unspecified; J84.10 Pulmonary fibrosis, unspecified; I25.10 Atherosclerotic heart disease of native coronary artery without angina pectoris; E78.5 Hyperlipidemia, unspecified; M81.0 Age-related osteoporosis without current pathological fracture; Y71.2 Prosthetic and other implants, materials and accessory cardiovascular devices associated with adverse incidents; Z79.84 Long term (current) use of oral hypoglycemic drugs; Z79.890 Hormone replacement therapy; Z79.899 Other long term (current) drug therapy; Z87.01 Personal history of pneumonia (recurrent); Z87.11 Personal history of peptic ulcer disease; Z95.5 Presence of coronary angioplasty implant and graft; Z87.442 Personal history of urinary calculi; Z99.2 Dependence on renal dialysis